=== PATIENT | male | born 1970 | race Caucasian/White ===

== ENCOUNTER 2016-07-04 11:39 | Inpatient (IN) | payer OTHER ==
[2016-07-04] MEDS ORDERED: IPRATROPIUM-ALBUTEROL 3 ML NEB INHALATION STA (12:53)
[2016-07-04] MEDS ORDERED: ALBUTEROL NEBULIZED 2.5 MG/3 ML INHALATION STA (14:00)
[2016-07-04] MEDS ORDERED: methylPREDNISolone SOD SUCCI 125 MG/2 ML VIAL IV STA (14:00)
--- NOTE | 2016-07-04 14:07 | ED ---
General Adult HPI - General Chief complaint: Shortness of Breath Stated complaint: diff breathing Time Seen by Provider: 07/04/16 12:00 Source: patient, RN notes reviewed Mode of arrival: wheelchair Limitations: no limitations - History of Present Illness Initial comments: This is a 46-year-old male presents emergency room with past medical history significant for NH congestive heart failure recently diagnosed with pneumonia in May and has had a trach placed in the past. Patient states she also has COPD and just quit smoking on Amy. Patient comes in today because he is having difficulty breathing he is wheezing he is coughing up quite a bit of sputum as well. Patient denies any chest pain or palpitations. Patient denies any fever or chills. Patient denies any lightheadedness or dizziness. Patient denies any headache patient denies numbness weakness. Patient denies abdominal pain patient denies nausea vomiting or diarrhea. Patient states he did have gastroenteritis-like symptoms a few weeks ago but those have since resolved. - Related Data Home Medications Medication Instructions Recorded Confirmed Loratadine [Claritin] 10 mg PO DAILY 10/19/13 07/04/16 Sertraline [Zoloft] 100 mg PO HS 10/19/13 07/04/16 Atorvastatin [Lipitor] 40 mg PO HS 03/25/15 07/04/16 Folic Acid 1 mg PO BID 03/25/15 07/04/16 Levothyroxine Sodium [Synthroid] 137 mcg PO QAM 03/25/15 07/04/16 Previous Rx's Medication Instructions Recorded Clopidogrel [Plavix] 75 mg PO DAILY #30 tablet 12/03/14 Metoprolol Tartrate [Lopressor] 50 mg PO BID #60 tab 12/03/14 Nitroglycerin Sl Tabs [Nitrostat] 0.4 mg SUBLINGUAL Q5M PRN #30 tab 12/03/14 Furosemide [Lasix] 40 mg PO DAILY #30 tab 06/14/16 Ipratropium-Albuterol Nebulize 3 ml INHALATION RT-QID PRN 30 Days 06/14/16 [Duoneb 0.5 mg-3 mg/3 ml Soln] Rivaroxaban [Xarelto] 20 mg PO W/SUPPER #30 tab 06/14/16 Allergies Allergy/AdvReac Type Severity Reaction Status Date / Time adhesive Allergy "PLASTIC Verified 06/11/16 08:12 TAPE PEELS SKIN,PAPER TAPE IS OK" Cephalosporins Allergy Unknown Verified 06/11/16 08:12 linezolid Allergy Unknown Verified 06/11/16 08:12 penicillin G Allergy Rash/Hives Verified 06/11/16 08:12 Review of Systems ROS Statement: Those systems with pertinent positive or pertinent negative responses have been documented in the HPI. ROS Other: All systems not noted in ROS Statement are negative. Past Medical History Past Medical History: Asthma, Chest Pain / Angina, COPD, Deep Vein Thrombosis ( DVT), Hyperlipidemia, Hypertension, Myocardial Infarction ([place]), Skin Disorder, Thyroid Disorder, Vascular Disorder Additional Past Medical History / Comment(s): Morbidly obese, COPD, bronchial asthma, coronary artery disease, multiple abdominal surgeries for a hiatal hernia that was complicated by prolonged hospitalization and prolonged ventilator dependent respiratory failure requiring a tracheostomy tube insertion , seasonal by medical ALLERGIES, diverticular disease, chronic anemia, previous history of DVT of the right lower extremity and current Doppler is showing a chronic clot in his right leg, eczema, hypothyroid, chronic anxiety/depression. Last Myocardial Infarction Date:: History of Any Multi-Drug Resistant Organisms: MRSA Date of last positivie culture/infection: 09/21/2014 MDRO Source:: abdominal incision Past Surgical History: Bowel Resection, Heart Catheterization With Stent, Hernia Repair Additional Past Surgical History / Comment(s): colonoscopy, heart stents x 3, 10 --15 heart cath with stent to circ, stomach mass removed with colostomy and colostomy reversal (removed a foot of pts colon)-2003, hernia repair with skin grafts and 2 fistula repairs (hospitalized for 1 year @[facility]2010 Past Anesthesia/Blood Transfusion Reactions: Motion Sickness Additional Past Anesthesia/Blood Transfusion Reaction / Comment(s): FATHER RECEIVED HEPATITIS FROM BLOOD TRANSFUSION Date of Last Stent Placement:: 03/28/2015 Past Psychological History: Depression Smoking Status: Former smoker Past Alcohol Use History: None Reported Additional Past Alcohol Use History / Comment(s): STARTED SMOKING 1997 Past Drug Use History: None Reported - Past Family History Mother Family Medical History: Osteoarthritis (OA), Pneumonia Additional Family Medical History / Comment(s): osteoporosis. arthroscopy surgery for knee Father Family Medical History: Liver Disease, Renal Disease Additional Family Medical History / Comment(s): triple heart bypass. liver transplant. aortic aneursym General Exam - General Exam Comments Initial Comments: GENERAL: Patient is well-developed and well-nourished. Patient is nontoxic and well- hydrated and is in moderate distress. ENT: Neck is soft and supple. No significant lymphadenopathy is noted. Oropharynx is clear. Moist mucous membranes. Neck has full range of motion without eliciting any pain. EYES: The sclera were anicteric and conjunctiva were pink and moist. Extraocular movements were intact and pupils were equal round and reactive to light. Eyelids were unremarkable. PULMONARY: Patient is wheezing diffusely CARDIOVASCULAR: Patient is tachycardic at 110 bpm ABDOMEN: Soft and nontender with normal bowel sounds. No palpable organomegaly was noted. There is no palpable pulsatile mass. SKIN: Skin is clear with no lesions or rashes and otherwise unremarkable. NEUROLOGIC: Patient is alert and oriented x3. Cranial nerves II through XII are grossly intact. Motor and sensory are also intact. Normal speech, volume and content. Symmetrical smile. MUSCULOSKELETAL: Normal extremities with adequate strength and full range of motion. LYMPHATICS: No significant lymphadenopathy is noted PSYCHIATRIC: Normal psychiatric evaluation. Normal interpersonal interactions appears functionally intact in deals appropriately with others. No signs of depression. No signs of anxiety. Limitations: no limitations Course Vital Signs 07/04/16 07/04/16 07/04/16 12:03 12:55 12:56 Temperature 98.2 F Pulse Rate 87 Respiratory 24 24 Rate Blood Pressure 126/71 O2 Sat by Pulse 95 93 L Oximetry 07/04/16 07/04/16 07/04/16 13:05 13:15 14:15 Temperature Pulse Rate 105 H 108 H 86 Respiratory Rate Blood Pressure O2 Sat by Pulse Oximetry 07/04/16 07/04/16 07/04/16 14:26 15:05 15:38 Temperature 97.5 F L Pulse Rate 88 118 H 124 H Respiratory 24 Rate Blood Pressure 153/91 O2 Sat by Pulse 97 Oximetry 07/04/16 16:31 Temperature Pulse Rate 124 H Respiratory 20 Rate Blood Pressure 131/69 O2 Sat by Pulse 97 Oximetry Medical Decision Making - Medical Decision Making EKG shows atrial fibrillation with rapid ventricular response at 109 bpm QRS is 82 QT intervals 344 QTC is 463. Patient's EKG shows no ST segment elevation or depression or T-wave abdomen is noted. Patient's chest x-ray shows no acute abnormality. Patient got a 15 mg albuterol treatment with Atrovent. Patient did not improve much at all this time. Slept with the patient on BiPAP and he does appear to be breathing easier. I gave the patient 20 of Lasix because his BNP was mildly elevated. I spoke with Dr. Rubi admitted the patient to his service I counseled the pulmonology Patient is also in atrial fibrillation which is new onset but I will not place him on heparin because he is already taken Xarelto - Lab Data Result diagrams: 07/04/16 14:20 07/04/16 14:20 Lab Results 07/04/16 07/04/16 07/04/16 Range/Units 14:20 14:20 14:20 WBC 5.0 (3.8-10.6) k/uL RBC 4.85 (4.30-5.90) m/uL Hgb 13.7 (13.0-17.5) gm/dL Hct 42.5 (39.0-53.0) % MCV 87.5 (80.0-100.0) fL MCH 28.2 (25.0-35.0) pg MCHC 32.2 (31.0-37.0) g/dL RDW 16.0 H (11.5-15.5) % Plt Count 205 (150-450) k/uL Neutrophils % 58 % Lymphocytes % 28 % Monocytes % 6 % Eosinophils % 5 % Basophils % 1 % Neutrophils # 2.9 (1.3-7.7) k/uL Lymphocytes # 1.4 (1.0-4.8) k/uL Monocytes # 0.3 (0-1.0) k/uL Eosinophils # 0.2 (0-0.7) k/uL Basophils # 0.0 (0-0.2) k/uL Hypochromasia Slight Poikilocytosis Moderate PT (9.0-12.0) sec INR (<1.1) APTT (22.0-30.0) sec Sodium 142 (137-145) mmol/L Potassium 5.0 (3.5-5.1) mmol/L Chloride 104 (98-107) mmol/L Carbon Dioxide 31 H (22-30) mmol/L Anion Gap 7 mmol/L BUN 25 H (9-20) mg/dL Creatinine 1.43 H (0.66-1.25) mg/dL Est GFR (MDRD) Af Amer >60 (>60 ml/min/1.73 sqM) Est GFR (MDRD) Non-Af 53 (>60 ml/min/1.73 sqM) Glucose 104 H (74-99) mg/dL Plasma Lactic Acid Isael (0.7-2.0) mmol/L Calcium 9.0 (8.4-10.2) mg/dL Magnesium 2.2 (1.6-2.3) mg/dL Total Bilirubin 0.8 (0.2-1.3) mg/dL AST 37 (17-59) U/L ALT 45 (21-72) U/L Alkaline Phosphatase 72 (38-126) U/L Total Creatine Kinase 59 (55-170) U/L CK-MB (CK-2) 1.6 (0.0-2.4) ng/mL CK-MB (CK-2) Rel Index 2.7 Troponin I 0.015 (0.000-0.034) ng/mL NT-Pro-B Natriuret Pep pg/mL Total Protein 6.3 (6.3-8.2) g/dL Albumin 3.4 L (3.5-5.0) g/dL 07/04/16 07/04/16 07/04/16 Range/Units 14:20 14:20 14:20 WBC (3.8-10.6) k/uL RBC (4.30-5.90) m/uL Hgb (13.0-17.5) gm/dL Hct (39.0-53.0) % MCV (80.0-100.0) fL MCH (25.0-35.0) pg MCHC (31.0-37.0) g/dL RDW (11.5-15.5) % Plt Count (150-450) k/uL Neutrophils % % Lymphocytes % % Monocytes % % Eosinophils % % Basophils % % Neutrophils # (1.3-7.7) k/uL Lymphocytes # (1.0-4.8) k/uL Monocytes # (0-1.0) k/uL Eosinophils # (0-0.7) k/uL Basophils # (0-0.2) k/uL Hypochromasia Poikilocytosis PT 11.9 (9.0-12.0) sec INR 1.2 (<1.1) APTT 29.2 (22.0-30.0) sec Sodium (137-145) mmol/L Potassium (3.5-5.1) mmol/L Chloride (98-107) mmol/L Carbon Dioxide (22-30) mmol/L Anion Gap mmol/L BUN (9-20) mg/dL Creatinine (0.66-1.25) mg/dL Est GFR (MDRD) Af Amer (>60 ml/min/1.73 sqM) Est GFR (MDRD) Non-Af (>60 ml/min/1.73 sqM) Glucose (74-99) mg/dL Plasma Lactic Acid Isael 1.1 (0.7-2.0) mmol/L Calcium (8.4-10.2) mg/dL Magnesium (1.6-2.3) mg/dL Total Bilirubin (0.2-1.3) mg/dL AST (17-59) U/L ALT (21-72) U/L Alkaline Phosphatase (38-126) U/L Total Creatine Kinase (55-170) U/L CK-MB (CK-2) (0.0-2.4) ng/mL CK-MB (CK-2) Rel Index Troponin I (0.000-0.034) ng/mL NT-Pro-B Natriuret Pep 2530 pg/mL Total Protein (6.3-8.2) g/dL Albumin (3.5-5.0) g/dL Critical Care Time Critical Care Time: Yes Total Critical Care Time: 35 Disposition Clinical Impression: Acute exacerbation of chronic obstructive airways disease, New onset atrial fibrillation Disposition: ADMITTED IP TO THIS HOSP Referrals: Aguilar Bautista DO [Primary Care Provider] - 1-2 days Time of Disposition: 17:14
[2016-07-04 14:40] LABS: Basophils % (A) 1 %; CH 28.7; CHCM 32.9; Eosinophils # (A) 0.2 k/uL (0-0.7); Eosinophils % (A) 5 %; HCT 42.5 % (39.0-53.0); HDW 4.02; HGB 13.7 gm/dL (13.0-17.5); Hypochromasia Slight; Luc # (Auto) 0.11; Luc % (Auto) 2; Lymphocytes # (A) 1.4 k/uL (1.0-4.8); Lymphocytes % (A) 28 %; MCH 28.2 pg (25.0-35.0); MCHC 32.2 g/dL (31.0-37.0); MCV 87.5 fL (80.0-100.0); Monocytes # (A) 0.3 k/uL (0-1.0); Monocytes % (A) 6 %; Neutrophils # (A) 2.9 k/uL (1.3-7.7); Neutrophils % (A) 58 %; Poikilocytosis Moderate; RBC 4.85 m/uL (4.30-5.90)
[2016-07-04 14:50] LABS: INR 1.2 (<1.1); Partial Thromboplastin Time 29.2 sec (22.0-30.0); Prothrombin Time 11.9 sec (9.0-12.0)
[2016-07-04 14:54] LABS: ALT 45 U/L (21-72); AST 37 U/L (17-59); Alkaline Phosphatase 72 U/L (38-126); Anion Gap 7 mmol/L; Blood Urea Nitrogen 25 mg/dL (9-20); Carbon Dioxide 31 mmol/L (22-30); Chloride 104 mmol/L (98-107); Glucose 104 mg/dL (74-99); Magnesium 2.2 mg/dL (1.6-2.3); Non-African American GFR(MDRD) 53 (>60 ml/min/1.73 sqM); Sodium 142 mmol/L (137-145); Total Bilirubin 0.8 mg/dL (0.2-1.3); Total Protein 6.3 g/dL (6.3-8.2)
--- NOTE | 2016-07-04 15:34 | XR ---
EXAMINATION TYPE: XR chest 2V DATE OF EXAM: 07/04/2016 3:23 PM COMPARISON: Prior chest x-ray June 10, 2016 HISTORY: History of COPD and asthma presents with difficulty in breathing. TECHNIQUE: Frontal and lateral views of the chest are obtained. FINDINGS: Exam is suboptimal secondary to patient's large body habitus. Underlying emphysematous luna ge cannot be excluded. There is suspected small left pleural effusion or pleural thickening redemonst rated felt stable. There is no suspicious new focal airspace opacity or pneumothorax seen bilaterally . The cardiac silhouette size is stable and enlarged. The osseous structures are intact. IMPRESSION: Cardiomegaly with small left pleural effusion redemonstrated. No new suspicious focal in filtrate is clearly seen.
[2016-07-04 15:43] LABS: Creatine Kinase MB 1.6 ng/mL (0.0-2.4); Troponin I 0.015 ng/mL (0.000-0.034)
[2016-07-04] MEDS ORDERED: FUROSEMIDE 10 MG/ML 2 ML VIAL IV ONE (16:05)
[2016-07-04] MEDS ORDERED: IPRATROPIUM-ALBUTEROL 3 ML NEB INHALATION PRN (17:18)
[2016-07-04] MEDS ORDERED: DILTIAZEM 125 MG in SODIUM CHLORIDE 0.9% 100 ML IV ONE (17:23)
[2016-07-04] MEDS ORDERED: HYDROmorphone 1 MG/ML 1 ML SYRINGE IM PRN (18:02)
[2016-07-04] MEDS: HYDROmorphone 1 MG/ML 1 ML SYRINGE IVP PRN ×2 (18:06→23:35)
[2016-07-04 18:57] VITALS: BMI 60.8
[2016-07-04] MEDS: methylPREDNISolone SOD SUCCI 125 MG/2 ML VIAL IV SCH ×2 (19:05→23:35)
[2016-07-04] MEDS ORDERED: INSULIN LISPRO (humaLOG) 300 UNIT/3 ML VIAL SQ SCH (21:00)
[2016-07-04 21:07] LABS: Glucose,Whole Blood 278 mg/dL (75-99)
[2016-07-04] MEDS: SERTRALINE 100 MG TAB PO SCH (22:42)
[2016-07-04] MEDS: RIVAROXABAN 10 MG TAB PO SCH (22:42)
[2016-07-04] MEDS: METOPROLOL TARTRATE 50 MG TAB PO SCH (22:42)
[2016-07-04] MEDS: ATORVASTATIN 40 MG TAB PO SCH (22:42)
[2016-07-05] MEDS: IPRATROPIUM-ALBUTEROL 3 ML NEB INHALATION SCH ×7 (00:32→23:39)
[2016-07-05] MEDS: INSULIN REGULAR 100 UNIT in SODIUM CHLORIDE 0.9% 100 ML IV SCH ×2 (00:32→14:25)
[2016-07-05 01:19] LABS: Glucose,Whole Blood 201 mg/dL (75-99)
[2016-07-05 03:17] LABS: Glucose,Whole Blood 167 mg/dL (75-99)
[2016-07-05] MEDS: HYDROmorphone 1 MG/ML 1 ML SYRINGE IVP PRN ×4 (03:39→20:39)
[2016-07-05 05:30] LABS: Glucose,Whole Blood 146 mg/dL (75-99)
[2016-07-05 06:29] LABS: Glucose,Whole Blood 140 mg/dL (75-99)
[2016-07-05] MEDS: methylPREDNISolone SOD SUCCI 125 MG/2 ML VIAL IV SCH ×4 (06:39→23:17)
[2016-07-05 08:18] LABS: Glucose,Whole Blood 190 mg/dL (75-99)
[2016-07-05] MEDS: METOPROLOL TARTRATE 50 MG TAB PO SCH ×3 (10:24→20:38)
--- NOTE | 2016-07-05 10:27 | P.CRDCN ---
History of Present Illness Consult date: 07/05/16 Requesting physician: Joshua Rubi Consult reason: congestive heart failure Chief complaint: Shortness of breath History of present illness: This is a 46-year-old gentleman who follows with Dr. Landon Wood in the office. He has a known history of coronary artery disease with prior LAD stenting, circumflex stenting, hypertension, hyperlipidemia, and obesity, DVTs, hypothyroidism, acute on chronic renal failure, diverticular disease, nicotine dependence, COPD, he presents to the hospital with symptoms of progressively worsening shortness of breath. Patient was recently in the hospital in May with exacerbation of COPD and pneumonia. He states that after he was discharged home, he was sick in bed with a stomach flu for a few days, after that he started noticing again progressive worsening in his shortness of breath. He denies any chest discomfort. Positive cough. Chest x-ray on admission revealed cardiomegaly with small pleural effusion. She'll EKG on admission showed atrial fibrillation with rapid ventricular response, patient was initiated on IV Cardizem drip. He was also given a dose of IV Lasix in the emergency room. CBC normal. Potassium 5.0, BUN 25, creatinine 1.4. Troponin 0.015, BNP level 2530. Patient diuresed approximately 1500 mL of urine through the night last night, he states he doesn't feel that he is urinating more than his usual. I pressure 104/60, heart rate in the 80s to 90s, 97% on 3 L of oxygen. Past Medical History Past Medical History: Asthma, Chest Pain / Angina, COPD, Deep Vein Thrombosis ( DVT), Hyperlipidemia, Hypertension, Myocardial Infarction ([place]), Skin Disorder, Thyroid Disorder, Vascular Disorder Additional Past Medical History / Comment(s): Morbidly obese, COPD, bronchial asthma, coronary artery disease, multiple abdominal surgeries for a hiatal hernia that was complicated by prolonged hospitalization and prolonged ventilator dependent respiratory failure requiring a tracheostomy tube insertion , seasonal by medical ALLERGIES, diverticular disease, chronic anemia, previous history of DVT of the right lower extremity and current Doppler is showing a chronic clot in his right leg, eczema, hypothyroid, chronic anxiety/depression. Last Myocardial Infarction Date:: History of Any Multi-Drug Resistant Organisms: MRSA Date of last positivie culture/infection: 09/21/2014 MDRO Source:: abdominal incision Past Surgical History: Bowel Resection, Heart Catheterization With Stent, Hernia Repair Additional Past Surgical History / Comment(s): colonoscopy, heart stents x 3, heart cath with stent to circ, stomach mass removed with colostomy and colostomy reversal (removed a foot of pts colon)-2003, hernia repair with skin grafts and 2 fistula repairs (hospitalized for 1 year @[facility]2010 Past Anesthesia/Blood Transfusion Reactions: Motion Sickness Additional Past Anesthesia/Blood Transfusion Reaction / Comment(s): FATHER RECEIVED HEPATITIS FROM BLOOD TRANSFUSION Date of Last Stent Placement:: 03/28/2015 Past Psychological History: Depression Smoking Status: Former smoker Past Alcohol Use History: None Reported Additional Past Alcohol Use History / Comment(s): STARTED SMOKING 1997 Past Drug Use History: None Reported - Past Family History Mother Family Medical History: Osteoarthritis (OA), Pneumonia Additional Family Medical History / Comment(s): osteoporosis. arthroscopy surgery for knee Father Family Medical History: Liver Disease, Renal Disease Additional Family Medical History / Comment(s): triple heart bypass. liver transplant. aortic aneursym Medications and Allergies Home Medications Medication Instructions Recorded Confirmed Type Loratadine [Claritin] 10 mg PO DAILY 10/19/13 07/04/16 History Sertraline [Zoloft] 100 mg PO HS 10/19/13 07/04/16 History Atorvastatin [Lipitor] 40 mg PO HS 03/25/15 07/04/16 History Folic Acid 1 mg PO BID 03/25/15 07/04/16 History Levothyroxine Sodium [Synthroid] 137 mcg PO QAM 03/25/15 07/04/16 History Allergies Allergy/AdvReac Type Severity Reaction Status Date / Time adhesive Allergy "PLASTIC Verified 06/11/16 08:12 TAPE PEELS SKIN,PAPER TAPE IS OK" Cephalosporins Allergy Unknown Verified 06/11/16 08:12 linezolid Allergy Unknown Verified 06/11/16 08:12 penicillin G Allergy Rash/Hives Verified 06/11/16 08:12 Physical Exam Vitals: Vital Signs Temp Pulse Pulse Resp BP BP Pulse Ox 07/05/16 08:31 96 07/05/16 08:18 96 97 07/05/16 04:00 97.3 F L 85 20 125/64 97 07/05/16 03:40 88 07/05/16 03:30 84 07/05/16 00:43 100 01/19/17 00:35 112 H 07/05/16 00:00 97.9 F 104 H 20 129/73 98 07/04/16 20:54 119 H 07/04/16 20:40 96 07/04/16 20:00 97.4 F L 127 H 20 123/66 95 07/04/16 18:47 113 H 24 07/04/16 18:46 96.6 F L 113 H 24 151/76 97 07/04/16 18:36 96.6 F L 113 H 24 151/76 97 07/04/16 17:53 98.7 F 120 H 20 143/87 98 Intake and Output 07/04/16 07/05/16 07/05/16 22:59 06:59 14:59 Intake Total 120 43.699 10 Output Total 1000 Balance 120 -956.301 10 Intake: Intake, IV Titration 43.699 10 Amount Diltiazem 125 mg In 10 Sodium Chloride 0.9% 100 ml @ 5 MG/HR 5 mls/hr IV .Q24H ONE Rx#:[id number] Insulin Regular 100 unit 43.699 In Sodium Chloride 0.9% 100 ml @ Titrate IV .Q0M [facility] Rx#:[id number] Oral 120 Output: Urine 1000 Other: Voiding Method Toilet Toilet Urinal Urinal # Voids 2 Weight 192.323 kg 192 kg PHYSICAL EXAMINATION: HEENT: Head is atraumatic, normocephalic. Pupils equal, round. Neck is supple. There is elevated jugular venous pressure. HEART EXAMINATION: Heart S1 and S2 irregular irregular systolic murmur is heard. CHEST EXAMINATION: Reveal scattered coarse rhonchi and wheezing throughout with diminished air entry to bilateral bases. ABDOMEN: Soft, obese, nontender. Bowel sounds are heard. No organomegaly noted. EXTREMITIES: 1+ peripheral pulses with 2+ evidence of peripheral edema and no calf tenderness noted. Evidence of chronic venous stasis. NEUROLOGIC patient is awake, alert and oriented -3. . Results 07/04/16 14:20 07/04/16 14:20 Current Medications Generic Name Dose Route Start Last Admin Trade Name Freq PRN Reason Stop Dose Admin Albuterol/Ipratropium 3 ml 07/04/16 20:46 Duoneb 0.5 Mg-3 Mg/3 Ml Soln INHALATION RT-Q2H PRN Shortness Of Breath Or Wheezing Albuterol/Ipratropium 3 ml 07/05/16 00:00 07/05/16 08:17 Duoneb 0.5 Mg-3 Mg/3 Ml Soln INHALATION 3 ml RT-Q4H [facility]URI Administration Atorvastatin Calcium 40 mg 07/04/16 21:00 07/04/16 22:42 Lipitor PO 40 mg HS ZURI Administration Hydromorphone HCl 1 mg 07/04/16 18:06 07/05/16 03:39 Dilaudid IVP 1 mg Q4HR PRN Administration Pain Diltiazem HCl 125 mg/ Sodium 125 mls @ 5 mls/hr 07/04/16 17:23 07/04/16 17:42 Chloride IV 07/05/16 17:22 5 mg/hr .Q24H ONE 5 mls/hr 5 MG/HR Administration Insulin Human Regular 100 unit 101 mls @ 0 mls/hr 07/04/16 23:45 07/05/16 05: 55 / Sodium Chloride IV 4 units/hr .Q0M ZURI 4.04 mls/hr Protocol Titration Titrate Methylprednisolone Sodium Succinate 60 mg 07/04/16 18:00 07/05/16 06:39 Solu-Medrol IV 60 mg Q6HR ZURI Administration Metoprolol Tartrate 50 mg 07/04/16 21:00 07/04/16 22:42 Lopressor PO 50 mg BID ZURI Administration Rivaroxaban 20 mg 07/04/16 20:45 07/04/16 22:42 Xarelto PO 20 mg W/SUPPER ZURI Administration Sertraline HCl 100 mg 07/04/16 21:00 07/04/16 22:42 Zoloft PO 100 mg HS ZURI Administration Intake and Output 07/04/16 07/05/16 07/05/16 22:59 06:59 14:59 Intake Total 120 43.699 10 Output Total 1000 Balance 120 -956.301 10 Intake: Intake, IV Titration 43.699 10 Amount Diltiazem 125 mg In 10 Sodium Chloride 0.9% 100 ml @ 5 MG/HR 5 mls/hr IV .Q24H ONE Rx#:[id number] Insulin Regular 100 unit 43.699 In Sodium Chloride 0.9% 100 ml @ Titrate IV .Q0M [facility] Rx#:[id number] Oral 120 Output: Urine 1000 Other: Voiding Method Toilet Toilet Urinal Urinal # Voids 2 Weight 192.323 kg 192 kg EKG Interpretations (text) EKG shows atrial fibrillation with a rapid ventricular response. Assessment and Plan Plan: Assessment and plan #1 diastolic congestive heart failure acute on chronic. Patient recently had an echocardiogram with Doppler study performed in May which revealed an ejection fraction of 50-55% #2 atrial fibrillation with rapid ventricular response, appears to be of new onset. He is currently on IV Cardizem drip. #3 history of DVTs, on xarelto. #4 known history of coronary artery disease with prior LAD and circumflex stenting #5 hypertension #6 hyperlipidemia #7 nicotine dependence although patient states he quit smoking a couple of weeks ago. #8 COPD #9 morbid obesity #10 hypothyroidism #11 acute on chronic renal failure #12 Chronic venous stasis Plan We will not repeat an echocardiogram with Doppler study as the patient just recently had one in May. We will resume the patient's Plavix. Check free T4 Discontinue IV Cardizem drip and increased dose of metoprolol tartrate. Further recommendations to follow. DNP note has been reviewed, I agree with a documented findings and plan of care. Patient was seen and examined.
[2016-07-05 10:48] LABS: Glucose,Whole Blood 249 mg/dL (75-99)
[2016-07-05 10:50] LABS: Hemoglobin A1C 6.5 % (4.2-6.1)
[2016-07-05 11:59] LABS: Glucose,Whole Blood 201 mg/dL (75-99)
[2016-07-05] MEDS: CLOPIDOGREL 75 MG TAB PO SCH (12:12)
--- NOTE | 2016-07-05 13:56 | P.CNPUL ---
History of Present Illness Consult date: 07/05/16 Requesting physician: Joshua Rubi Reason for consult: dyspnea, abnormal CXR/CT Chief complaint: Shortness of breath, progressive weakness. History of present illness: This is a very pleasant 46-year-old gentleman who follows with Dr. Bautista as his primary care physician. He has multiple medical problems including morbid obesity, coronary artery disease with previous stent placements to the LAD and circumflex arteries, chronic obstructive pulmonary disease with chronic and ongoing nicotine addiction, chronic bronchial asthma, multiple abdominal surgeries for hiatal hernias with complications and prolonged hospitalization requiring tracheostomy tube insertion and subsequent removal, diverticular disease, chronic anemia, previous DVT of the right lower extremity with chronic clot, hypothyroidism, anxiety/depression, previous MRSA infection of the abdominal incision, previous colectomy with colostomy and subsequent reversal. He was recently here in May 2016 for an episode of diastolic congestive heart failure as he has a preserved left ventricular systolic function with estimated ejection fraction 50-55%. He was also seen by our group for an acute exacerbation of his COPD of which she recovered. He returned to the emergency room yesterday with complaints of increasing shortness of breath and progressive weakness. His chest x-ray showed evidence of cardiomegaly with a small left pleural effusion but no acute infiltrate/pneumonia. He was found to be in atrial fibrillation with a rapid ventricular response that he was initially on a Cardizem drip. He had already been anticoagulated with Xarelto. Currently, he is seen in consultation on the selective care unit. He is awake and alert in no acute distress. He denies any worsening shortness of breath at this time, no cough or congestion. No chills or night sweats. He denies any chest pain, palpitations lightheadedness or dizziness. He does have some dyspnea on minimal exertion. He is maintaining good O2 saturations on room air, afebrile, no leukocytosis. He has remained hemodynamically stable. His rate is better controlled and the Cardizem drip has been discontinued. He is maintained on Lopressor. He is being diuresed with Lasix 40 mg every 12 hours. Review of Systems 14 point review of system was conducted. All negative other than as mentioned in HPI. Past Medical History Past Medical History: Asthma, Chest Pain / Angina, COPD, Deep Vein Thrombosis ( DVT), Hyperlipidemia, Hypertension, Myocardial Infarction (ND), Skin Disorder, Thyroid Disorder, Vascular Disorder Additional Past Medical History / Comment(s): Morbidly obese, COPD, bronchial asthma, coronary artery disease, multiple abdominal surgeries for a hiatal hernia that was complicated by prolonged hospitalization and prolonged ventilator dependent respiratory failure requiring a tracheostomy tube insertion , seasonal by medical ALLERGIES, diverticular disease, chronic anemia, previous history of DVT of the right lower extremity and current Doppler is showing a chronic clot in his right leg, eczema, hypothyroid, chronic anxiety/depression. Last Myocardial Infarction Date:: History of Any Multi-Drug Resistant Organisms: MRSA Date of last positivie culture/infection: 09/21/2014 MDRO Source:: abdominal incision Past Surgical History: Bowel Resection, Heart Catheterization With Stent, Hernia Repair Additional Past Surgical History / Comment(s): colonoscopy, heart stents x 3, heart cath with stent to circ, stomach mass removed with colostomy and colostomy reversal (removed a foot of pts colon)-2003, hernia repair with skin grafts and 2 fistula repairs [facility] Past Anesthesia/Blood Transfusion Reactions: Motion Sickness Additional Past Anesthesia/Blood Transfusion Reaction / Comment(s): FATHER RECEIVED HEPATITIS FROM BLOOD TRANSFUSION Date of Last Stent Placement:: 03/28/2015 Past Psychological History: Depression Smoking Status: Former smoker Past Alcohol Use History: None Reported Additional Past Alcohol Use History / Comment(s): STARTED SMOKING 1997 Past Drug Use History: None Reported - Past Family History Mother Family Medical History: Osteoarthritis (OA), Pneumonia Additional Family Medical History / Comment(s): osteoporosis. arthroscopy surgery for knee Father Family Medical History: Liver Disease, Renal Disease Additional Family Medical History / Comment(s): triple heart bypass. liver transplant. aortic aneursym Medications and Allergies Home Medications Medication Instructions Recorded Confirmed Type Loratadine [Claritin] 10 mg PO DAILY 10/19/13 07/04/16 History Sertraline [Zoloft] 100 mg PO HS 10/19/13 07/04/16 History Atorvastatin [Lipitor] 40 mg PO HS 03/25/15 07/04/16 History Folic Acid 1 mg PO BID 03/25/15 07/04/16 History Levothyroxine Sodium [Synthroid] 137 mcg PO QAM 03/25/15 07/04/16 History Allergies Allergy/AdvReac Type Severity Reaction Status Date / Time adhesive Allergy "PLASTIC Verified 06/11/16 08:12 TAPE PEELS SKIN,PAPER TAPE IS OK" Cephalosporins Allergy Unknown Verified 06/11/16 08:12 linezolid Allergy Unknown Verified 06/11/16 08:12 penicillin G Allergy Rash/Hives Verified 06/11/16 08:12 Physical Exam Vitals: Vital Signs Temp Pulse Pulse Resp BP BP Pulse Ox 07/05/16 12:01 96 07/05/16 12:00 96.8 F L 89 20 107/67 96 07/05/16 11:50 92 07/05/16 08:31 96 07/05/16 08:18 96 97 07/05/16 08:00 97.6 F 89 20 103/57 94 L 07/05/16 04:00 97.3 F L 85 20 125/64 97 07/05/16 03:40 88 07/05/16 03:30 84 07/05/16 00:43 100 07/05/16 00:35 112 H 07/05/16 00:00 97.9 F 104 H 20 129/73 98 07/04/16 20:54 119 H 07/04/16 20:40 96 07/04/16 20:00 97.4 F L 127 H 20 123/66 95 07/04/16 18:47 113 H 24 07/04/16 18:46 96.6 F L 113 H 24 151/76 97 07/04/16 18:36 96.6 F L 113 H 24 151/76 97 07/04/16 17:53 98.7 F 120 H 20 143/87 98 Intake and Output 07/04/16 07/05/16 07/05/16 22:59 06:59 14:59 Intake Total 120 43.699 166.831 Output Total 1000 Balance 120 -956.301 166.831 Intake: Intake, IV Titration 43.699 46.831 Amount Diltiazem 125 mg In 10 Sodium Chloride 0.9% 100 ml @ 5 MG/HR 5 mls/hr IV .Q24H ONE Rx#:[id number] Insulin Regular 100 unit 43.699 36.831 In Sodium Chloride 0.9% 100 ml @ Titrate IV .Q0M [facility] Rx#:[id number] Oral 120 120 Output: Urine 1000 Other: Voiding Method Toilet Toilet Toilet Urinal Urinal Urinal # Voids 2 Weight 192.323 kg 192 kg GENERAL EXAM: Morbidly obese. Alert, comfortable in no apparent distress. HEAD: Normocephalic. EYES: Normal reaction of pupils, equal size. NOSE: Clear with pink turbinates. THROAT: No erythema or exudates. NECK: No masses, no JVD. CHEST: No chest wall deformity. LUNGS: Equal air entry with faint crackles in the posterior bases.. CVS: S1 and S2 normal with no audible murmurs, irregular rhythm. ABDOMEN: Obese, normal bowel sounds, no guarding or rigidity. Extremities: There is trace peripheral edema, changes of chronic venous stasis. No clubbing, no cyanosis. Peripheral pulses are intact. Results - Laboratory Findings CBC and BMP: 07/04/16 14:20 07/04/16 14:20 PT/INR, D-dimer PT 11.9 sec (9.0-12.0) 07/04/16 14:20 INR 1.2 (<1.1) 07/04/16 14:20 Abnormal lab findings: Abnormal Labs 07/04/16 07/05/16 07/05/16 21:06 01:18 03:15 POC Glucose (mg/dL) 278 H 201 H 167 H 07/05/16 07/05/16 07/05/16 05:28 06:23 08:05 POC Glucose (mg/dL) 146 H 140 H 190 H 07/05/16 07/05/16 10:37 11:53 POC Glucose (mg/dL) 249 H 201 H - Diagnostic Findings Chest x-ray: image reviewed Assessment and Plan Plan: Impression: #1 Dyspnea secondary to new onset atrial fibrillation with rapid ventricular response, an acute exacerbation of diastolic congestive heart failure. There may be some component of acute exacerbation of his COPD/asthma. No significant wheezing. #2 Morbid obesity. #3 Coronary artery disease with previous coronary artery stenting to the LAD and circumflex. #4 Chronic left lower extremity DVT, anticoagulated with Xarelto. #5 Chronic venous stasis of lower extremities bilaterally. #6 Hypothyroidism. #7 Chronic renal failure. #8 Hyperlipidemia. #9 Multiple abdominal surgeries with prolonged hospitalization and ventilator dependence requiring tracheostomy tube insertion and subsequent removal. #10 Steroid-induced hyperglycemia. Plan: The patient was seen and evaluated by Dr. Adams. His chest x-ray and labs were reviewed. The patient is being treated for an exacerbation of diastolic congestive heart failure secondary to atrial fibrillation with rapid ventricular response. We'll continue with anticoagulation the form of Xarelto. We'll back off on his IV Solu-Medrol as the patient is not significantly bronchospastic or wheezing and is currently requiring a insulin drip. We'll continue with bronchodilators and change of the albuterol for Xopenex. We will increase his activity as tolerated. We'll continue to follow make further recommendations based on his clinical status. Time with Patient: Greater than 30
[2016-07-05 13:58] LABS: Glucose,Whole Blood 183 mg/dL (75-99)
[2016-07-05] MEDS ORDERED: NITROGLYCERIN SL TABS 0.4 MG TAB SUBLINGUAL PRN (15:32)
[2016-07-05] MEDS ORDERED: TEMAZEPAM 15 MG CAP PO PRN (15:35)
[2016-07-05] MEDS ORDERED: ACETAMINOPHEN TAB 500 MG TAB PO PRN (15:35)
[2016-07-05 16:03] LABS: Glucose,Whole Blood 128 mg/dL (75-99)
[2016-07-05 17:19] LABS: Glucose,Whole Blood 140 mg/dL (75-99)
[2016-07-05] MEDS: RIVAROXABAN 10 MG TAB PO SCH (17:28)
[2016-07-05 18:20] LABS: Glucose,Whole Blood 184 mg/dL (75-99)
[2016-07-05] MEDS: HYDROcodone/APAP 5-325MG 1 EACH TAB PO PRN (18:24)
--- NOTE | 2016-07-05 19:24 | HP ---
DATE OF ADMISSION: CHIEF COMPLAINT: Shortness of breath. HISTORY OF PRESENT ILLNESS: This 46-year-old gentleman with a past medical history of asthma, COPD, history of deep venous thrombosis, hypertension, hyperlipidemia, history of myocardial infarction, history of morbid obesity, history of bowel resection, history of coronary artery disease and stent, history of depression, being followed by Dr. Bautista in the outpatient setting, is complaining of shortness of breath and cough for the last several days. The patient was earlier admitted the last month with hypercapnic respiratory failure secondary to COPD acute exacerbation. Patient went home and the patient was noted to have increasing shortness of breath. The patient apparently quit smoking New Year's Amy. The patient also had wheezing and was spitting up quite a bit of phlegm also. The patient came to [facility] and the chest x-ray was done, which showed increased bronchovascular markings and the patient was admitted for further evaluation and treatment. There is no history of any fever, rigors, nausea, headache, loss of consciousness, or seizures. The patient also had on admission and was started on Cardizem this evening. PAST MEDICAL HISTORY: History of asthma, chronic obstructive pulmonary disease, history of DVTs, hypertension, hyperlipidemia, history of myocardial infarction, history of morbid obesity, history bowel resection, history of CAD and stent. Medications prior to admission include home medications: 1. Zoloft 100 mg p.o. daily. 2. Xarelto 10 mg supper. 3. Nitrostat 0.4 sublingual p.r.n. 4. Lopressor 50 mg p.o. b.i.d. 5. Claritin 10 mg daily. 6. Synthroid 137 mcg p.o. daily. 7. DuoNeb q.i.d. 8. Lasix 40 mg daily. 9. Folic acid 1 mg p.o. b.i.d. 10. Plavix 75 mg daily. 11. Lipitor 40 mg q.h.s. ALLERGIES , CEPHALOSPORINS, LINEZOLID, PENICILLIN G. FAMILY HISTORY: History of degenerative joint disease, pneumonia, osteoporosis, arthroscopy, surgery of the knee. SOCIAL HISTORY: Previous history of smoking. No history of current smoking or alcohol intake. REVIEW OF SYSTEMS: ENT: No diminished vision. CARDIOVASCULAR: As mentioned earlier. RESPIRATORY: As mentioned earlier. GI: No nausea. : No dysuria. NERVOUS SYSTEM: No numbness or weakness. ALLERGY/IMMUNOLOGY: No asthma or hayfever. MUSCULOSKELETAL: As mentioned earlier. HEMATOLOGY: No history of anemia. ENDOCRINE: No history diabetes or hypothyroidism. CONSTITUTIONAL: As mentioned earlier. DERMATOLOGY: Negative. RHEUMATOLOGY: Negative. PSYCHIATRY: As mentioned earlier. PHYSICAL EXAMINATION: Patient is alert and oriented x3. Pulse is 89, blood pressure 107/69, respirations 20, temperature 96.8, pulse ox 96% on room air. HEENT: Conjunctivae normal. Oral mucosa moist. NECK: Obese. No jugular venous distention. No carotid bruit. No lymph node enlargement. CARDIOVASCULAR: S1 and S2 irregular. RESPIRATORY: Breathing efforts increased. Bilateral scattered rhonchi and expiratory wheezing also present. ABDOMEN: Soft, nontender, obese, no mass palpable. LEGS: Bilateral leg edema present. Skin pigmentation also present. NERVOUS SYSTEM: Higher function as mentioned. Cranial nerves II through XII grossly intact. Otherwise moves all four limbs. LYMPHATIC: No lymphadenopathy in the neck, axillae or groin. SKIN: As mentioned earlier. JOINTS: No active deforming arthropathy. LABS: Accu-Cheks are 201, 183. Otherwise CBC within normal limits. Creatinine is 1.43. ASSESSMENT: 1. Shortness of breath possibly multifactor, chronic obstructive pulmonary disease acute exacerbation, with acute purulent tracheobronchitis and congestive heart failure acute exacerbation with acute on chronic diastolic dysfunction, ejection 50 to 55%. 2. Increased creatinine with possible chronic kidney disease stage III. 3. Super morbid obesity with body mass index of 60.7. 4. Asthma. 5. Chronic obstructive pulmonary disease. 6. History of deep venous thrombosis. 7. Hypertension. 8. Hyperlipidemia. 9. History of myocardial infarction. 10. History of skin disorder. 11. History of bronchial asthma. 12. History of coronary artery disease. 13. History of multiple abdominal surgeries. 14. History of hiatal hernia. 15. History of eczema. 16. History of methicillin-resistant Staphylococcus aureus with 17. Depression. 18. Remote history of nicotine dependence. 19. Morbid obesity with a BMI 60.7. RECOMMENDATIONS AND DISCUSSION: In this 46-year-old gentleman who presented with multiple complex medical issues, we will monitor the patient closely. Continue the current medications and symptomatic treatment. I recommend optimize bronchodilator treatment, continue with the diuretics. Closely follow with Cardiology and Pulmonology. Guarded prognosis because of multiple complex medical issues. Further recommendations to follow. Copy of dictation forwarded to Dr. Bautista. See orders for details. Continue the Xarelto. MTDD
[2016-07-05 19:57] LABS: Glucose,Whole Blood 199 mg/dL (75-99)
[2016-07-05] MEDS: ALPRAZolam 0.25 MG TAB PO PRN (20:38)
[2016-07-05] MEDS: SERTRALINE 100 MG TAB PO SCH (20:39)
[2016-07-05] MEDS: FOLIC ACID 1 MG TAB PO SCH (20:39)
[2016-07-05] MEDS: FUROSEMIDE 10 MG/ML 4 ML VIAL IV SCH (20:39)
[2016-07-05] MEDS: ATORVASTATIN 40 MG TAB PO SCH (20:39)
[2016-07-05 23:19] LABS: Glucose,Whole Blood 171 mg/dL (75-99)
[2016-07-06 01:39] LABS: Glucose,Whole Blood 170 mg/dL (75-99)
[2016-07-06] MEDS: IPRATROPIUM-ALBUTEROL 3 ML NEB INHALATION SCH ×5 (04:10→20:46)
[2016-07-06 04:22] LABS: Glucose,Whole Blood 160 mg/dL (75-99)
[2016-07-06] MEDS: HYDROmorphone 1 MG/ML 1 ML SYRINGE IVP PRN ×5 (05:41→23:29)
[2016-07-06] MEDS: ALPRAZolam 0.25 MG TAB PO PRN (05:47)
[2016-07-06] MEDS: IPRATROPIUM-ALBUTEROL 3 ML NEB INHALATION PRN (05:59)
[2016-07-06] MEDS: methylPREDNISolone SOD SUCCI 125 MG/2 ML VIAL IV SCH ×2 (06:16→12:09)
[2016-07-06] MEDS: PANTOPRAZOLE 40 MG TABLET PO SCH (06:22)
[2016-07-06] MEDS: LEVOTHYROXINE 137 MCG TAB PO SCH (06:22)
[2016-07-06 06:26] LABS: Glucose,Whole Blood 141 mg/dL (75-99)
[2016-07-06 06:38] LABS: Basophils % (A) 0 %; CH 28.4; CHCM 32.1; Eosinophils % (A) 0 %; HCT 43.6 % (39.0-53.0); HDW 3.78; HGB 13.7 gm/dL (13.0-17.5); Hypochromasia Moderate; Luc # (Auto) 0.04; Luc % (Auto) 1; Lymphocytes # (A) 0.6 k/uL (1.0-4.8); Lymphocytes % (A) 8 %; MCHC 31.5 g/dL (31.0-37.0); MCV 88.7 fL (80.0-100.0); Mean Platelet Volume 7.1; Monocytes # (A) 0.2 k/uL (0-1.0); Monocytes % (A) 3 %; Neutrophils # (A) 6.6 k/uL (1.3-7.7); Neutrophils % (A) 88 %; Poikilocytosis Slight; RBC 4.92 m/uL (4.30-5.90); RDW 15.8 % (11.5-15.5); WBC 7.5 k/uL (3.8-10.6); WBC (Perox) 7.84
[2016-07-06 06:53] LABS: Calcium 9.3 mg/dL (8.4-10.2); Potassium 5.1 mmol/L (3.5-5.1)
[2016-07-06] MEDS ORDERED: PHENOL MUCOUS MEM PRN (07:31)
[2016-07-06] MEDS ORDERED: EUCALYPTUS OIL MUCOUS MEM PRN (07:31)
[2016-07-06] MEDS ORDERED: MENTHOL MUCOUS MEM PRN (07:31)
[2016-07-06] MEDS: FOLIC ACID 1 MG TAB PO SCH ×2 (08:11→20:02)
[2016-07-06] MEDS: CLOPIDOGREL 75 MG TAB PO SCH (08:11)
[2016-07-06] MEDS: LORATADINE 10 MG TAB PO SCH (08:11)
[2016-07-06] MEDS: METOPROLOL TARTRATE 50 MG TAB PO SCH ×3 (08:12→20:03)
[2016-07-06] MEDS: FUROSEMIDE 10 MG/ML 4 ML VIAL IV SCH ×2 (08:12→20:03)
[2016-07-06 08:17] LABS: Glucose,Whole Blood 229 mg/dL (75-99)
[2016-07-06] MEDS: INSULIN REGULAR 100 UNIT in SODIUM CHLORIDE 0.9% 100 ML IV SCH ×2 (08:42→22:26)
[2016-07-06] MEDS ORDERED: LORazepam 2 MG/ML SYRINGE IV PRN (09:30)
[2016-07-06 10:05] LABS: Glucose,Whole Blood 231 mg/dL (75-99)
--- NOTE | 2016-07-06 11:10 | CDI ---
In responding to this query, please exercise your independent professional judgment. The [facility] Coding Staff and Clinical Documentation Specialists appreciate your assistance in clarifying documentation, maintaining compliance with coding guidelines, accurately documenting patients condition and capturing severity of illness. The fact that a question is asked does not imply that any particular answer is desired or expected. Communication forms are a method of clarifying documentation and are not made part of the Legal Health Record. Thank you in advance for your clarification. Last Revision, August 2015 William Gayle [address] [place] [address] Documentation Clarification Form Date: 07/06/2016 10:58:00 AM From: Dee Dee Hollis CCS, CCDS Admit Date: 07/04/2016 5:18:00 PM Patient Name: Maximo Cerna Visit Number: [id number] Discharge Date: Dr. Avtar Adams: Asthma is documented in the ED note as part of the patient's history. Also listed in the H&P by the attending and in the pulmonary consult as part of the patient's history. Patient history/risk factors: COPD, Hypertension, MT, DVTs, CAD & MT. Clinical Indicators: VS: RR 24 (sob), PO 95-93 ra Radiology: CXR: Cardiomegaly with small left pleural effusion. Treatment: Albuterol INH, IV Solumedrol, IV Lasix, Cardizem drip, IV Dilaudid Home Meds: Lasix, Xarelto, Albuterol Nebulizer txs Consults: Cardiology, Pulmonary In your professional opinion, can you please further specify the following, if known? With Acute Exacerbation Status asthmaticus Acute lower respiratory infection COPD (specify with or without exacerbation) Chronic obstructive bronchitis Other, please specify Unable to determine Severity Mild intermittent Mild persistent Moderate persistent Severe persistent Other, please specify ____ Unable to determine Form or Type Cough variant Childhood Exercise induced bronchospasm Extrinsic allergic Idiosyncratic Intrinsic nonallergic Late-onset Mixed Other, please specify Unable to determine Please document in your progress notes and discharge summary in order to capture severity of illness and risk of mortality. Include clinical findings that support your diagnosis. FYI: Press F11 to launch patient chart. Place X here if this finding has no clinical significance, is not applicable or if you are not able to provide any additional documentation. MTDD
--- NOTE | 2016-07-06 11:38 | CDI ---
In responding to this query, please exercise your independent professional judgment. The [facility] Coding Staff and Clinical Documentation Specialists appreciate your assistance in clarifying documentation, maintaining compliance with coding guidelines, accurately documenting patients condition and capturing severity of illness. The fact that a question is asked does not imply that any particular answer is desired or expected. Communication forms are a method of clarifying documentation and are not made part of the Legal Health Record. Thank you in advance for your clarification. Last Revision, April 2015 William Gayle [address] [place] [address] Documentation Clarification Form Date: 07/06/2016 11:14:00 AM From: Dee Dee Hollis Admit Date: 07/04/2016 5:18:00 PM Patient Name: Maximo Cerna Visit Number: [id number] Discharge Date: Dr. Frank Reece Atrial fibrillation is documented in the cardiology consult as a new onset. History/Risk Factors: COPD, CAD, Asthma, Angina, DVT, Hyperlipidemia, Hypertension, ME, Morbid Obesity Clinical Indicators: EKG/telemetry: Atrial fibrillation w/RVR, R 109. Treatment: Cardizen drip, IV Lasix, IV steroids, INH, O2. Consults: Cardiology, Pulmonology In your professional opinion, can you please clarify the type of atrial fibrillation, if known? Paroxysmal Persistent Other, please specify Unable to determine Please document in your progress notes and discharge summary in order to capture severity of illness and risk of mortality. Include clinical findings that support your diagnosis. FYI: Press F11 to launch patient chart Place X here if this finding has no clinical significance, is not applicable or if you are not able to provide any additional documentation. Thank You. DESIRE
[2016-07-06 11:59] LABS: Glucose,Whole Blood 152 mg/dL (75-99)
[2016-07-06] MEDS: HYDROcodone/APAP 5-325MG 1 EACH TAB PO PRN ×2 (12:09→21:16)
--- NOTE | 2016-07-06 13:47 | P.PN ---
Subjective Principal diagnosis: Dyspnea secondary to diastolic congestive heart failure and new onset atrial fibrillation as well as acute exacerbation of mild intermittent asthma. This is a very pleasant 46-year-old gentleman who follows with Dr. Bautista as his primary care physician. He has multiple medical problems including morbid obesity, coronary artery disease with previous stent placements to the LAD and circumflex arteries, chronic obstructive pulmonary disease with chronic and ongoing nicotine addiction, chronic bronchial asthma, multiple abdominal surgeries for hiatal hernias with complications and prolonged hospitalization requiring tracheostomy tube insertion and subsequent removal, diverticular disease, chronic anemia, previous DVT of the right lower extremity with chronic clot, hypothyroidism, anxiety/depression, previous MRSA infection of the abdominal incision, previous colectomy with colostomy and subsequent reversal. He was recently here in May 2016 for an episode of diastolic congestive heart failure as he has a preserved left ventricular systolic function with estimated ejection fraction 50-55%. He was also seen by our group for an acute exacerbation of his COPD of which she recovered. He returned to the emergency room yesterday with complaints of increasing shortness of breath and progressive weakness. His chest x-ray showed evidence of cardiomegaly with a small left pleural effusion but no acute infiltrate/pneumonia. He was found to be in atrial fibrillation with a rapid ventricular response that he was initially on a Cardizem drip. He had already been anticoagulated with Xarelto. Currently, he is seen in consultation on the selective care unit. He is awake and alert in no acute distress. He denies any worsening shortness of breath at this time, no cough or congestion. No chills or night sweats. He denies any chest pain, palpitations lightheadedness or dizziness. He does have some dyspnea on minimal exertion. He is maintaining good O2 saturations on room air, afebrile, no leukocytosis. He has remained hemodynamically stable. His rate is better controlled and the Cardizem drip has been discontinued. He is maintained on Lopressor. He is being diuresed with Lasix 40 mg every 12 hours. Patient was reevaluated today on 07/06/2016, continues to have intermittent episodes of shortness of breath were and patient uses BiPAP, and that seems to help his symptoms significantly. Again his shortness of breath is multifactorial secondary to diastolic congestive heart failure, mild intermittent bronchial asthma, morbid obesity, obstructive sleep apnea syndrome , obesity/hypoventilation syndrome. And deconditioning. Objective - Vital Signs Vital signs: Vital Signs Temp 97.8 F 07/06/16 11:54 Pulse 88 07/06/16 11:54 Resp 24 07/06/16 11:54 BP 180/66 07/06/16 11:54 Pulse Ox 98 07/06/16 08:00 Intake & Output 07/05/16 07/06/16 07/06/16 18:59 06:59 18:59 Intake Total 963.692 670.987 227.959 Output Total 600 2700 750 Balance 363.692 -2029.013 -522.041 Weight 191.6 kg Intake: Intake, IV Titration 83.692 70.987 47.959 Amount Diltiazem 125 mg In 10 Sodium Chloride 0.9% 100 ml @ 5 MG/HR 5 mls/hr IV .Q24H [facility] Rx#:[id number] Insulin Regular 100 unit 73.692 70.987 47.959 In Sodium Chloride 0.9% 100 ml @ Titrate IV .Q0M [facility] Rx#:[id number] Oral 880 600 180 Output: Urine 600 2700 750 Other: Voiding Method Toilet Toilet Toilet Urinal Urinal Urinal - Exam GENERAL EXAM: Morbidly obese. Alert, comfortable in no apparent distress. HEAD: Normocephalic. EYES: Normal reaction of pupils, equal size. NOSE: Clear with pink turbinates. THROAT: No erythema or exudates. NECK: No masses, no JVD. Evidence of an old tracheostomy scar noted in the basal portion of the neck anteriorly CHEST: No chest wall deformity. LUNGS: Equal air entry with faint crackles in the posterior bases.. Diminished breath sounds at the bases CVS: S1 and S2 normal with no audible murmurs, irregular rhythm. ABDOMEN: Obese, normal bowel sounds, no guarding or rigidity. Extremities: There is trace peripheral edema, changes of chronic venous stasis. No clubbing, no cyanosis. Peripheral pulses are intact. - Labs CBC & Chem 7: 07/06/16 06:21 07/06/16 06:18 Labs: Abnormal Lab Results - Last 24 Hours (Table) 07/05/16 07/05/16 07/05/16 Range/Units 13:56 15:59 17:10 RDW (11.5-15.5) % Lymphocytes # (1.0-4.8) k/uL BUN (9-20) mg/dL Creatinine (0.66-1.25) mg/dL Glucose (74-99) mg/dL POC Glucose (mg/dL) 183 H 128 H 140 H (75-99) mg/dL 07/05/16 07/05/16 07/05/16 Range/Units 18:18 19:53 23:18 RDW (11.5-15.5) % Lymphocytes # (1.0-4.8) k/uL BUN (9-20) mg/dL Creatinine (0.66-1.25) mg/dL Glucose (74-99) mg/dL POC Glucose (mg/dL) 184 H 199 H 171 H (75-99) mg/dL 07/06/16 07/06/16 07/06/16 Range/Units 01:27 04:21 06:18 RDW (11.5-15.5) % Lymphocytes # (1.0-4.8) k/uL BUN 38 H (9-20) mg/dL Creatinine 1.80 H (0.66-1.25) mg/dL Glucose 141 H (74-99) mg/dL POC Glucose (mg/dL) 170 H 160 H (75-99) mg/dL 07/06/16 07/06/16 07/06/16 Range/Units 06:21 06:22 08:04 RDW 15.8 H (11.5-15.5) % Lymphocytes # 0.6 L (1.0-4.8) k/uL BUN (9-20) mg/dL Creatinine (0.66-1.25) mg/dL Glucose (74-99) mg/dL POC Glucose (mg/dL) 141 H 229 H (75-99) mg/dL 07/06/16 07/06/16 Range/Units 10:02 11:58 RDW (11.5-15.5) % Lymphocytes # (1.0-4.8) k/uL BUN (9-20) mg/dL Creatinine (0.66-1.25) mg/dL Glucose (74-99) mg/dL POC Glucose (mg/dL) 231 H 152 H (75-99) mg/dL Assessment and Plan Plan: #1 Dyspnea secondary to new onset atrial fibrillation with rapid ventricular response, an acute exacerbation of diastolic congestive heart failure. There may be some component of acute exacerbation of mild bronchial asthma, intermittent. Based on his multiple medical problems, I believe his shortness of breath is mostly related to his cardiac presentation, morbid obesity, obesity hypoventilation syndrome, acute on chronic hypercapnic respiratory failure. #2 Morbid obesity. #3 Coronary artery disease with previous coronary artery stenting to the LAD and circumflex. #4 Chronic left lower extremity DVT, anticoagulated with Xarelto. #5 Chronic venous stasis of lower extremities bilaterally. #6 Hypothyroidism. #7 Chronic renal failure. #8 Hyperlipidemia. #9 Multiple abdominal surgeries with prolonged hospitalization and ventilator dependence requiring tracheostomy tube insertion and subsequent removal. #10 Steroid-induced hyperglycemia. #11 obesity/hypoventilation syndrome #12 deconditioning secondary to his morbid obesity and sedentary lifestyle #13 mild intermittent asthma contributing to his symptoms but it is not the main cause of his presentation. #14 suspect obstructive sleep apnea syndrome, however patient never had a sleep study evaluation. This should be considered on outpatient basis. Recommendation: I will recommend that we continue the same treatment plan, I will arrange for an ABG to be done and if we could document significant hypercapnia, may have to qualify the patient for home BiPAP or CPAP. Eventually the patient will need a sleep study to document obstructive sleep apnea syndrome. Considering his multiple medical problems above, prognosis is definitely poor and guarded. Time with Patient: Less than 30
[2016-07-06 14:06] LABS: Glucose,Whole Blood 227 mg/dL (75-99)
--- NOTE | 2016-07-06 14:26 | P.PN ---
Subjective Principal diagnosis: Shortness of breath This is a 46-year-old gentleman who follows with Dr. Landon Wood in the office. He has a known history of coronary artery disease with prior LAD stenting, circumflex stenting, hypertension, hyperlipidemia, and obesity, DVTs, hypothyroidism, acute on chronic renal failure, diverticular disease, nicotine dependence, COPD, he presents to the hospital with symptoms of progressively worsening shortness of breath. Patient was recently in the hospital in May with exacerbation of COPD and pneumonia. He states that after he was discharged home, he was sick in bed with a stomach flu for a few days, after that he started noticing again progressive worsening in his shortness of breath. He denies any chest discomfort. Positive cough. Chest x-ray on admission revealed cardiomegaly with small pleural effusion. Initial EKG on admission showed atrial fibrillation with rapid ventricular response. BNP level 2530. Patient was initiated on IV Lasix, continues to diurese well. Continues to be in atrial fibrillation, rate controlled on metoprolol tartrate 50 mg 1 tablet by mouth 3 times a day. Objective - Vital Signs Vital signs: Vital Signs Temp 97.8 F 07/06/16 11:54 Pulse 88 07/06/16 11:54 Resp 24 07/06/16 11:54 BP 180/66 07/06/16 11:54 Pulse Ox 98 07/06/16 08:00 Intake & Output 07/05/16 07/06/16 07/06/16 18:59 06:59 18:59 Intake Total 963.692 670.987 227.959 Output Total 600 2700 750 Balance 363.692 -2029.013 -522.041 Weight 191.6 kg Intake: Intake, IV Titration 83.692 70.987 47.959 Amount Diltiazem 125 mg In 10 Sodium Chloride 0.9% 100 ml @ 5 MG/HR 5 mls/hr IV .Q24H [facility] Rx#:[id number] Insulin Regular 100 unit 73.692 70.987 47.959 In Sodium Chloride 0.9% 100 ml @ Titrate IV .Q0M [facility] Rx#:[id number] Oral 880 600 180 Output: Urine 600 2700 750 Other: Voiding Method Toilet Toilet Toilet Urinal Urinal Urinal - Exam PHYSICAL EXAMINATION: HEENT: Head is atraumatic, normocephalic. Pupils equal, round. Neck is supple. There is elevated jugular venous pressure. HEART EXAMINATION: Heart S1 and S2 irregular irregular systolic murmur is heard. CHEST EXAMINATION: Reveal scattered coarse rhonchi and wheezing throughout with diminished air entry to bilateral bases. ABDOMEN: Soft, obese, nontender. Bowel sounds are heard. No organomegaly noted. EXTREMITIES: 1+ peripheral pulses with 2+ evidence of peripheral edema and no calf tenderness noted. Evidence of chronic venous stasis. NEUROLOGIC patient is awake, alert and oriented -3. - Labs CBC & Chem 7: 07/06/16 06:21 07/06/16 06:18 Labs: Abnormal Lab Results - Last 24 Hours (Table) 07/05/16 07/05/16 07/05/16 Range/Units 13:56 15:59 17:10 RDW (11.5-15.5) % Lymphocytes # (1.0-4.8) k/uL BUN (9-20) mg/dL Creatinine (0.66-1.25) mg/dL Glucose (74-99) mg/dL POC Glucose (mg/dL) 183 H 128 H 140 H (75-99) mg/dL 07/05/16 07/05/16 07/05/16 Range/Units 18:18 19:53 23:18 RDW (11.5-15.5) % Lymphocytes # (1.0-4.8) k/uL BUN (9-20) mg/dL Creatinine (0.66-1.25) mg/dL Glucose (74-99) mg/dL POC Glucose (mg/dL) 184 H 199 H 171 H (75-99) mg/dL 07/06/16 07/06/16 07/06/16 Range/Units 01:27 04:21 06:18 RDW (11.5-15.5) % Lymphocytes # (1.0-4.8) k/uL BUN 38 H (9-20) mg/dL Creatinine 1.80 H (0.66-1.25) mg/dL Glucose 141 H (74-99) mg/dL POC Glucose (mg/dL) 170 H 160 H (75-99) mg/dL 07/06/16 07/06/16 07/06/16 Range/Units 06:21 06:22 08:04 RDW 15.8 H (11.5-15.5) % Lymphocytes # 0.6 L (1.0-4.8) k/uL BUN (9-20) mg/dL Creatinine (0.66-1.25) mg/dL Glucose (74-99) mg/dL POC Glucose (mg/dL) 141 H 229 H (75-99) mg/dL 07/06/16 07/06/16 Range/Units 10:02 11:58 RDW (11.5-15.5) % Lymphocytes # (1.0-4.8) k/uL BUN (9-20) mg/dL Creatinine (0.66-1.25) mg/dL Glucose (74-99) mg/dL POC Glucose (mg/dL) 231 H 152 H (75-99) mg/dL Assessment and Plan Plan: Assessment and plan #1 diastolic congestive heart failure acute on chronic. Patient recently had an echocardiogram with Doppler study performed in May which revealed an ejection fraction of 50-55% #2 atrial fibrillation, chronic persistent, with rapid ventricular response. #3 history of DVTs, on xarelto. #4 known history of coronary artery disease with prior LAD and circumflex stenting #5 hypertension #6 hyperlipidemia #7 nicotine dependence although patient states he quit smoking a couple of weeks ago. #8 COPD #9 morbid obesity #10 hypothyroidism #11 acute on chronic renal failure #12 Chronic venous stasis Plan From cardiology's perspective, we will recommend to continue current dose of IV Lasix. Check lytes BUN and creatinine in the morning. DNP note has been reviewed, I agree with a documented findings and plan of care. Patient was seen and examined.
[2016-07-06] MEDS: methylPREDNISolone SOD SUCCI 40 MG/ML 1 ML VIAL IV SCH ×2 (15:52→23:29)
[2016-07-06] MEDS: RIVAROXABAN 10 MG TAB PO SCH (15:53)
[2016-07-06] MEDS ORDERED: methylPREDNISolone SOD SUCCI 125 MG/2 ML VIAL IV SCH (16:00)
[2016-07-06 16:06] LABS: Glucose,Whole Blood 165 mg/dL (75-99)
[2016-07-06 18:51] LABS: Glucose,Whole Blood 205 mg/dL (75-99)
--- NOTE | 2016-07-06 19:17 | PN ---
DATE OF SERVICE: 07/06/2016 This 46-year-old gentleman who was admitted with shortness of breath, possibly multifactorial, mostly chronic obstructive pulmonary disease, also had CHF also. The patient this morning had respiratory difficulties and patient's sats went down to low 80s and the patient had used BiPAP. Cardiology and Pulmonology is following the patient closely. PAST MEDICAL HISTORY: Reviewed. REVIEW OF SYSTEMS: CARDIOVASCULAR: As mentioned earlier. RESPIRATORY: As mentioned earlier. GI: As mentioned earlier. : No dysuria, retention. NERVOUS SYSTEM: No numbness or weakness. Current medications are reviewed. 1. Tylenol 500 q.6 p.r.n. 2. [place] 5 mg q.6. 3. DuoNeb q.i.d. and p.r.n. 5. Lipitor 40 daily. 7. Cepastat q.4. 8. Folic acid 1 mg b.i.d. 9. Lasix 40 mg b.i.d. 10. Dilaudid 1 mg q.4 p.r.n. 11. Synthroid 137 mcg p.o. daily. 12. Claritin 10 mg daily. 13. Ativan 0.5 mg q.6. 14. Solu-Medrol 40 IV q.6. 15. Lopressor 50 mg t.i.d. 16. Nitrostat. 17. Protonix 40 mg. 18. Xarelto 20 mg with supper. 19. Zoloft 100 mg q.h.s. 20. Restoril 50 mg q.h.s. PHYSICAL EXAMINATION: Patient is alert, oriented x3, pulse 88, blood pressure 180/96, respirations 18, temperature 97.8, pulse ox 90% room air. HEENT: Conjunctivae normal. Oral mucosa moist. NECK: No jugular venous distention. No carotid bruit. No lymph node enlargement. Obese. CARDIOVASCULAR: S1 and S2. No S3, no S4. RESPIRATORY: Breath sounds diminished at the bases. Bilateral scattered rhonchi, expiratory wheezing and crackles. ABDOMEN: Soft, obese, nontender. No mass palpable. LEGS: No edema, no swelling. NERVOUS SYSTEM: Higher function as mentioned. Moves all four limbs. No focal motor deficits. LYMPHATIC: No lymphadenopathy in the neck, axillae or groin. SKIN: No ulcer, rash or bleeding. LABS: CBC within normal limits. Creatinine is 1.80, glucose 165. ASSESSMENT: 1. Shortness of breath, possibly multifactorial, chronic obstructive pulmonary disease acute exacerbation with acute purulent tracheobronchitis and congestive heart failure exacerbation with acute on chronic diastolic dysfunction, ejection 50% to 55%. 2. Increased creatinine with possible chronic kidney disease, stage III. 3. Super morbid obesity with a body mass index of 60.7. 4. Asthma. 5. Persistent atrial fibrillation. 6. Atrial fibrillation with rapid ventricular rate present on admission. 7. History of chronic obstructive pulmonary disease. 8. History of deep venous thrombosis. 9. Hypertension. 10. Hyperlipidemia. 11. History of myocardial infarction. 12. Skin disorder. 13. History of bronchial asthma. 14. History of coronary artery disease. 15. History of multiple abdominal surgeries. 16. History of hiatal hernia. 17. History of eczema. 18. History of methicillin-resistant Staphylococcus aureus. 19. Depression. 20. Remote history of nicotine dependence. 21. Super morbid obesity with body mass index of 60.7. 22. FULL CODE. RECOMMENDATIONS AND DISCUSSION: I recommend to continue the current medications and symptomatic treatment. will monitor the creatinine closely. Otherwise, continue the bronchodilators and the rest of the medications. Cut down the dose of steroids and guarded prognosis. Further recommendations to follow. MTDD
[2016-07-06] MEDS: ATORVASTATIN 40 MG TAB PO SCH (20:02)
[2016-07-06] MEDS: SERTRALINE 100 MG TAB PO SCH (20:03)
[2016-07-06 20:33] LABS: Glucose,Whole Blood 148 mg/dL (75-99)
[2016-07-06 21:33] LABS: ABG Base Excess 1.8 mmol/L; ABG HCO3 27 mmol/L (21-25); ABG PCO2 51 mmHg (35-45); ABG PH 7.34 (7.35-7.45); ABG PO2 127 mmHg (83-108); ABG TCO2 29 mmol/L (19-24)
[2016-07-06 22:22] LABS: Glucose,Whole Blood 159 mg/dL (75-99)
[2016-07-07 00:38] LABS: Glucose,Whole Blood 180 mg/dL (75-99)
[2016-07-07 02:22] LABS: Glucose,Whole Blood 142 mg/dL (75-99)
[2016-07-07] MEDS: IPRATROPIUM-ALBUTEROL 3 ML NEB INHALATION SCH ×7 (03:34→19:39)
[2016-07-07 04:38] LABS: Glucose,Whole Blood 129 mg/dL (75-99)
[2016-07-07] MEDS: HYDROmorphone 1 MG/ML 1 ML SYRINGE IVP PRN ×5 (05:01→23:20)
[2016-07-07 05:40] LABS: Glucose,Whole Blood 136 mg/dL (75-99)
[2016-07-07 06:45] LABS: Basophils % (A) 0 %; CH 28.3; CHCM 31.6; Eosinophils % (A) 0 %; HCT 44.8 % (39.0-53.0); HDW 3.75; Hypochromasia Moderate; Luc # (Auto) 0.03; Luc % (Auto) 1; Lymphocytes # (A) 0.5 k/uL (1.0-4.8); Lymphocytes % (A) 7 %; MCH 28.1 pg (25.0-35.0); MCHC 31.3 g/dL (31.0-37.0); MCV 89.8 fL (80.0-100.0); Mean Platelet Volume 7.5; Monocytes # (A) 0.3 k/uL (0-1.0); Monocytes % (A) 4 %; Neutrophils # (A) 6.1 k/uL (1.3-7.7); Neutrophils % (A) 89 %; Poikilocytosis Slight; RBC 4.98 m/uL (4.30-5.90); RDW 15.7 % (11.5-15.5); WBC 6.8 k/uL (3.8-10.6); WBC (Perox) 7.15
[2016-07-07 06:56] LABS: Calcium 8.7 mg/dL (8.4-10.2)
[2016-07-07] MEDS: PANTOPRAZOLE 40 MG TABLET PO SCH (06:57)
[2016-07-07] MEDS: LEVOTHYROXINE 137 MCG TAB PO SCH (06:57)
[2016-07-07] MEDS: ALPRAZolam 0.25 MG TAB PO PRN (06:57)
[2016-07-07] MEDS: HYDROcodone/APAP 5-325MG 1 EACH TAB PO PRN (06:57)
[2016-07-07 07:46] LABS: Glucose,Whole Blood 157 mg/dL (75-99)
[2016-07-07] MEDS: METOPROLOL TARTRATE 50 MG TAB PO SCH ×3 (09:36→22:00)
[2016-07-07] MEDS: methylPREDNISolone SOD SUCCI 40 MG/ML 1 ML VIAL IV SCH ×3 (09:36→23:20)
[2016-07-07] MEDS: CLOPIDOGREL 75 MG TAB PO SCH (09:36)
[2016-07-07] MEDS: LORATADINE 10 MG TAB PO SCH (09:36)
[2016-07-07] MEDS: FUROSEMIDE 10 MG/ML 4 ML VIAL IV SCH ×2 (09:36→22:00)
[2016-07-07] MEDS: FOLIC ACID 1 MG TAB PO SCH ×2 (09:36→22:00)
[2016-07-07 09:46] LABS: Glucose,Whole Blood 215 mg/dL (75-99)
--- NOTE | 2016-07-07 11:01 | P.PN ---
Subjective Principal diagnosis: Shortness of breath This is a 46-year-old gentleman who follows with Dr. Landon Wood in the office. He has a known history of coronary artery disease with prior LAD stenting, circumflex stenting, hypertension, hyperlipidemia, and obesity, DVTs, hypothyroidism, acute on chronic renal failure, diverticular disease, nicotine dependence, COPD, he presents to the hospital with symptoms of progressively worsening shortness of breath. Patient was recently in the hospital in May with exacerbation of COPD and pneumonia. He states that after he was discharged home, he was sick in bed with a stomach flu for a few days, after that he started noticing again progressive worsening in his shortness of breath. He denies any chest discomfort. Positive cough. Chest x-ray on admission revealed cardiomegaly with small pleural effusion. Initial EKG on admission showed atrial fibrillation with rapid ventricular response. BNP level 2530. Patient was initiated on IV Lasix, continues to diurese well. Continues to be in atrial fibrillation, rate controlled on metoprolol tartrate 50 mg 1 tablet by mouth 3 times a day. Objective - Vital Signs Vital signs: Vital Signs Temp 96.8 F L 07/06/16 19:59 Pulse 100 07/07/16 08:01 Resp 18 07/07/16 04:41 BP 115/66 07/07/16 04:41 Pulse Ox 97 07/07/16 04:41 Intake & Output 07/06/16 07/07/16 07/07/16 18:59 06:59 18:59 Intake Total 840.023 55.337 12.4 Output Total 750 1100 Balance 90.023 -1044.663 12.4 Intake: Intake, IV Titration 88.023 55.337 12.4 Amount Insulin Regular 100 unit 88.023 55.337 12.4 In Sodium Chloride 0.9% 100 ml @ Titrate IV .Q0M [facility] Rx#:[id number] Oral 752 Output: Urine 750 1100 Other: Voiding Method Toilet Urinal Urinal - Exam PHYSICAL EXAMINATION: HEENT: Head is atraumatic, normocephalic. Pupils equal, round. Neck is supple. There is elevated jugular venous pressure. HEART EXAMINATION: Heart S1 and S2 irregular irregular systolic murmur is heard. CHEST EXAMINATION: Reveal scattered coarse rhonchi and wheezing throughout with diminished air entry to bilateral bases. ABDOMEN: Soft, obese, nontender. Bowel sounds are heard. No organomegaly noted. EXTREMITIES: 1+ peripheral pulses with 2+ evidence of peripheral edema and no calf tenderness noted. Evidence of chronic venous stasis. NEUROLOGIC patient is awake, alert and oriented -3. - Labs CBC & Chem 7: 07/07/16 06:29 07/07/16 06:26 Labs: Abnormal Lab Results - Last 24 Hours (Table) 07/06/16 07/06/16 07/06/16 Range/Units 11:58 14:05 15:58 RDW (11.5-15.5) % Lymphocytes # (1.0-4.8) k/uL ABG pH (7.35-7.45) ABG pCO2 (35-45) mmHg ABG pO2 (83-108) mmHg ABG HCO3 (21-25) mmol/L ABG Total CO2 (19-24) mmol/L ABG O2 Saturation (94-97) % BUN (9-20) mg/dL Creatinine (0.66-1.25) mg/dL Glucose (74-99) mg/dL POC Glucose (mg/dL) 152 H 227 H 165 H (75-99) mg/dL 07/06/16 07/06/16 07/06/16 Range/Units 18:39 20:32 21:18 RDW (11.5-15.5) % Lymphocytes # (1.0-4.8) k/uL ABG pH 7.34 L (7.35-7.45) ABG pCO2 51 H (35-45) mmHg ABG pO2 127 H (83-108) mmHg ABG HCO3 27 H (21-25) mmol/L ABG Total CO2 29 H (19-24) mmol/L ABG O2 Saturation 99.0 H (94-97) % BUN (9-20) mg/dL Creatinine (0.66-1.25) mg/dL Glucose (74-99) mg/dL POC Glucose (mg/dL) 205 H 148 H (75-99) mg/dL 07/06/16 07/07/16 07/07/16 Range/Units 22:21 00:36 02:20 RDW (11.5-15.5) % Lymphocytes # (1.0-4.8) k/uL ABG pH (7.35-7.45) ABG pCO2 (35-45) mmHg ABG pO2 (83-108) mmHg ABG HCO3 (21-25) mmol/L ABG Total CO2 (19-24) mmol/L ABG O2 Saturation (94-97) % BUN (9-20) mg/dL Creatinine (0.66-1.25) mg/dL Glucose (74-99) mg/dL POC Glucose (mg/dL) 159 H 180 H 142 H (75-99) mg/dL 07/07/16 07/07/16 07/07/16 Range/Units 04:37 05:39 06:26 RDW (11.5-15.5) % Lymphocytes # (1.0-4.8) k/uL ABG pH (7.35-7.45) ABG pCO2 (35-45) mmHg ABG pO2 (83-108) mmHg ABG HCO3 (21-25) mmol/L ABG Total CO2 (19-24) mmol/L ABG O2 Saturation (94-97) % BUN 46 H (9-20) mg/dL Creatinine 1.80 H (0.66-1.25) mg/dL Glucose 147 H (74-99) mg/dL POC Glucose (mg/dL) 129 H 136 H (75-99) mg/dL 07/07/16 07/07/16 07/07/16 Range/Units 06:29 07:34 09:30 RDW 15.7 H (11.5-15.5) % Lymphocytes # 0.5 L (1.0-4.8) k/uL ABG pH (7.35-7.45) ABG pCO2 (35-45) mmHg ABG pO2 (83-108) mmHg ABG HCO3 (21-25) mmol/L ABG Total CO2 (19-24) mmol/L ABG O2 Saturation (94-97) % BUN (9-20) mg/dL Creatinine (0.66-1.25) mg/dL Glucose (74-99) mg/dL POC Glucose (mg/dL) 157 H 215 H (75-99) mg/dL Assessment and Plan Plan: Assessment and plan #1 diastolic congestive heart failure acute on chronic. Patient recently had an echocardiogram with Doppler study performed in May which revealed an ejection fraction of 50-55% #2 atrial fibrillation, chronic persistent, with rapid ventricular response. #3 history of DVTs, on xarelto. #4 known history of coronary artery disease with prior LAD and circumflex stenting #5 hypertension #6 hyperlipidemia #7 nicotine dependence although patient states he quit smoking a couple of weeks ago. #8 COPD #9 morbid obesity #10 hypothyroidism #11 acute on chronic renal failure #12 Chronic venous stasis Plan From cardiology's perspective, we will recommend to continue current dose of IV Lasix. Check lytes BUN and creatinine in the morning. DNP note has been reviewed, I agree with a documented findings and plan of care. Patient was seen and examined.
--- NOTE | 2016-07-07 11:12 | XR ---
EXAMINATION TYPE: XR chest 2V DATE OF EXAM: 07/07/2016 11:08 AM COMPARISON: 07/04/2016 INDICATION: TECHNIQUE: Frontal and lateral views of the chest are obtained. FINDINGS: The heart size is normal. The pulmonary vasculature is normal. Posterior pleural effusions are present. IMPRESSION: 1. Posterior pleural effusions
--- NOTE | 2016-07-07 12:35 | P.PN ---
Subjective Principal diagnosis: Dyspnea secondary to diastolic congestive heart failure and new onset atrial fibrillation as well as acute exacerbation of mild intermittent asthma. This is a very pleasant 46-year-old gentleman who follows with Dr. Bautista as his primary care physician. He has multiple medical problems including morbid obesity, coronary artery disease with previous stent placements to the LAD and circumflex arteries, chronic obstructive pulmonary disease with chronic and ongoing nicotine addiction, chronic bronchial asthma, multiple abdominal surgeries for hiatal hernias with complications and prolonged hospitalization requiring tracheostomy tube insertion and subsequent removal, diverticular disease, chronic anemia, previous DVT of the right lower extremity with chronic clot, hypothyroidism, anxiety/depression, previous MRSA infection of the abdominal incision, previous colectomy with colostomy and subsequent reversal. He was recently here in May 2016 for an episode of diastolic congestive heart failure as he has a preserved left ventricular systolic function with estimated ejection fraction 50-55%. He was also seen by our group for an acute exacerbation of his COPD of which she recovered. He returned to the emergency room yesterday with complaints of increasing shortness of breath and progressive weakness. His chest x-ray showed evidence of cardiomegaly with a small left pleural effusion but no acute infiltrate/pneumonia. He was found to be in atrial fibrillation with a rapid ventricular response that he was initially on a Cardizem drip. He had already been anticoagulated with Xarelto. Currently, he is seen in consultation on the selective care unit. He is awake and alert in no acute distress. He denies any worsening shortness of breath at this time, no cough or congestion. No chills or night sweats. He denies any chest pain, palpitations lightheadedness or dizziness. He does have some dyspnea on minimal exertion. He is maintaining good O2 saturations on room air, afebrile, no leukocytosis. He has remained hemodynamically stable. His rate is better controlled and the Cardizem drip has been discontinued. He is maintained on Lopressor. He is being diuresed with Lasix 40 mg every 12 hours. Patient was reevaluated today on 07/06/2016, continues to have intermittent episodes of shortness of breath were and patient uses BiPAP, and that seems to help his symptoms significantly. Again his shortness of breath is multifactorial secondary to diastolic congestive heart failure, mild intermittent bronchial asthma, morbid obesity, obstructive sleep apnea syndrome , obesity/hypoventilation syndrome. And deconditioning. Reevaluated today on 07/07/2016, continues to have shortness of breath, and again his shortness of breath is multifactorial. On examination continues to have diminished breath sounds bilaterally some wheezing on forced expiratory maneuver. Chest x-ray was ordered for follow-up to be done today. The chest x- ray showed small left pleural effusion, not large enough to consider thoracentesis, not to mention considering the patient's body habitus, it is extremely risky to be able to perform safe thoracentesis on this patient. Objective - Vital Signs Vital signs: Vital Signs Temp 96.6 F L 07/07/16 08:00 Pulse 100 07/07/16 12:28 Resp 16 07/07/16 08:00 BP 120/62 07/07/16 08:00 Pulse Ox 96 07/07/16 08:00 Intake & Output 07/06/16 07/07/16 07/07/16 18:59 06:59 18:59 Intake Total 840.023 55.337 12.4 Output Total 750 1100 Balance 90.023 -1044.663 12.4 Intake: Intake, IV Titration 88.023 55.337 12.4 Amount Insulin Regular 100 unit 88.023 55.337 12.4 In Sodium Chloride 0.9% 100 ml @ Titrate IV .Q0M [facility] Rx#:[id number] Oral 752 Output: Urine 750 1100 Other: Voiding Method Toilet Urinal Urinal Urinal - Exam GENERAL EXAM: Morbidly obese. Alert, comfortable in no apparent distress. HEAD: Normocephalic. EYES: Normal reaction of pupils, equal size. NOSE: Clear with pink turbinates. THROAT: No erythema or exudates. NECK: No masses, no JVD. Evidence of an old tracheostomy scar noted in the basal portion of the neck anteriorly CHEST: No chest wall deformity. LUNGS: Equal air entry with faint crackles in the posterior bases.. Diminished breath sounds at the bases some wheezing on forced expiratory maneuver noted CVS: S1 and S2 normal with no audible murmurs, irregular rhythm. ABDOMEN: Obese, normal bowel sounds, no guarding or rigidity. Extremities: There is trace peripheral edema, changes of chronic venous stasis. No clubbing, no cyanosis. Peripheral pulses are intact. - Labs CBC & Chem 7: 07/07/16 06:29 07/07/16 06:26 Labs: Abnormal Lab Results - Last 24 Hours (Table) 07/06/16 07/06/16 07/06/16 Range/Units 14:05 15:58 18:39 RDW (11.5-15.5) % Lymphocytes # (1.0-4.8) k/uL ABG pH (7.35-7.45) ABG pCO2 (35-45) mmHg ABG pO2 (83-108) mmHg ABG HCO3 (21-25) mmol/L ABG Total CO2 (19-24) mmol/L ABG O2 Saturation (94-97) % BUN (9-20) mg/dL Creatinine (0.66-1.25) mg/dL Glucose (74-99) mg/dL POC Glucose (mg/dL) 227 H 165 H 205 H (75-99) mg/dL 07/06/16 07/06/16 07/06/16 Range/Units 20:32 21:18 22:21 RDW (11.5-15.5) % Lymphocytes # (1.0-4.8) k/uL ABG pH 7.34 L (7.35-7.45) ABG pCO2 51 H (35-45) mmHg ABG pO2 127 H (83-108) mmHg ABG HCO3 27 H (21-25) mmol/L ABG Total CO2 29 H (19-24) mmol/L ABG O2 Saturation 99.0 H (94-97) % BUN (9-20) mg/dL Creatinine (0.66-1.25) mg/dL Glucose (74-99) mg/dL POC Glucose (mg/dL) 148 H 159 H (75-99) mg/dL 07/07/16 07/07/16 07/07/16 Range/Units 00:36 02:20 04:37 RDW (11.5-15.5) % Lymphocytes # (1.0-4.8) k/uL ABG pH (7.35-7.45) ABG pCO2 (35-45) mmHg ABG pO2 (83-108) mmHg ABG HCO3 (21-25) mmol/L ABG Total CO2 (19-24) mmol/L ABG O2 Saturation (94-97) % BUN (9-20) mg/dL Creatinine (0.66-1.25) mg/dL Glucose (74-99) mg/dL POC Glucose (mg/dL) 180 H 142 H 129 H (75-99) mg/dL 07/07/16 07/07/16 07/07/16 Range/Units 05:39 06:26 06:29 RDW 15.7 H (11.5-15.5) % Lymphocytes # 0.5 L (1.0-4.8) k/uL ABG pH (7.35-7.45) ABG pCO2 (35-45) mmHg ABG pO2 (83-108) mmHg ABG HCO3 (21-25) mmol/L ABG Total CO2 (19-24) mmol/L ABG O2 Saturation (94-97) % BUN 46 H (9-20) mg/dL Creatinine 1.80 H (0.66-1.25) mg/dL Glucose 147 H (74-99) mg/dL POC Glucose (mg/dL) 136 H (75-99) mg/dL 07/07/16 07/07/16 Range/Units 07:34 09:30 RDW (11.5-15.5) % Lymphocytes # (1.0-4.8) k/uL ABG pH (7.35-7.45) ABG pCO2 (35-45) mmHg ABG pO2 (83-108) mmHg ABG HCO3 (21-25) mmol/L ABG Total CO2 (19-24) mmol/L ABG O2 Saturation (94-97) % BUN (9-20) mg/dL Creatinine (0.66-1.25) mg/dL Glucose (74-99) mg/dL POC Glucose (mg/dL) 157 H 215 H (75-99) mg/dL Assessment and Plan Plan: #1 Dyspnea secondary to new onset atrial fibrillation with rapid ventricular response, an acute exacerbation of diastolic congestive heart failure. There may be some component of acute exacerbation of mild bronchial asthma, intermittent. Based on his multiple medical problems, I believe his shortness of breath is mostly related to his cardiac presentation, morbid obesity, obesity hypoventilation syndrome, acute on chronic hypercapnic respiratory failure. #2 Morbid obesity. #3 Coronary artery disease with previous coronary artery stenting to the LAD and circumflex. #4 Chronic left lower extremity DVT, anticoagulated with Xarelto. #5 Chronic venous stasis of lower extremities bilaterally. #6 Hypothyroidism. #7 Chronic renal failure. #8 Hyperlipidemia. #9 Multiple abdominal surgeries with prolonged hospitalization and ventilator dependence requiring tracheostomy tube insertion and subsequent removal. #10 Steroid-induced hyperglycemia. #11 obesity/hypoventilation syndrome #12 deconditioning secondary to his morbid obesity and sedentary lifestyle #13 mild intermittent asthma contributing to his symptoms but it is not the main cause of his presentation. #14 suspect obstructive sleep apnea syndrome, however patient never had a sleep study evaluation. This should be considered on outpatient basis. Recommendation: I will recommend that we continue the same treatment plan, I will arrange for an ABG to be done and if we could document significant hypercapnia, may have to qualify the patient for home BiPAP or CPAP. However his ABG showed a pO2 of 127 pCO2 of 51 pH of 7.34. It is borderline, most likely the patient will not qualify for CPAP or BiPAP, hence may have to consider a sleep study on outpatient basis. Eventually the patient will need a sleep study to document obstructive sleep apnea syndrome. Considering his multiple medical problems above, prognosis is definitely poor and guarded. Time with Patient: Less than 30
[2016-07-07 12:44] LABS: Glucose,Whole Blood 137 mg/dL (75-99)
[2016-07-07 14:28] LABS: Glucose,Whole Blood 129 mg/dL (75-99)
[2016-07-07 16:04] LABS: Glucose,Whole Blood 139 mg/dL (75-99)
[2016-07-07] MEDS: RIVAROXABAN 10 MG TAB PO SCH (17:07)
[2016-07-07] MEDS ORDERED: INSULIN LISPRO (humaLOG) 300 UNIT/3 ML VIAL SQ SCH (17:30)
[2016-07-07 17:55] LABS: Glucose,Whole Blood 131 mg/dL (75-99)
[2016-07-07 19:18] LABS: Glucose,Whole Blood 170 mg/dL (75-99)
[2016-07-07 21:27] LABS: Glucose,Whole Blood 161 mg/dL (75-99)
[2016-07-07] MEDS: ATORVASTATIN 40 MG TAB PO SCH (22:00)
[2016-07-07] MEDS: SERTRALINE 100 MG TAB PO SCH (22:00)
--- NOTE | 2016-07-07 22:14 | PN ---
DATE OF SERVICE: 07/07/2016 This 46 -year-old gentleman admitted with shortness of breath, multifactorial, chronic obstructive pulmonary disease and congestive heart failure, is improving significantly. No chest pain. No palpitations. No fever. The most recent chest x-ray done today showed posterior pleural effusions. On exam, alert and oriented times three. Pulse is 82, blood pressure 111/61 and respiratory rate 16, temperature normal, pulse ox 96% on room air. HEENT: Conjunctivae normal. NECK: No jugular venous distention. CARDIOVASCULAR: S1, S2 muffled. RESPIRATORY: Breath sounds diminished at the bases. Bilateral scattered rhonchi and crackles. ABDOMEN: Soft, obese, nontender. Legs: Bilateral leg edema. Nervous system: No focal deficits. LABS: ABGs pCO2 51, creatinine is 1.80. ASSESSMENT: 1. Shortness of breath, possibly multifactorial, chronic obstructive pulmonary disease, acute exacerbation as well as acute purulent tracheobronchitis, as well as congestive heart failure acute exacerbation with acute on chronic diastolic dysfunction, ejection fraction 50% to 55%. 2. Increased creatinine with possible chronic kidney disease stage III. 3. Super morbid obesity. Body mass index 60.7. 4. History of asthma. 5. History of persistent atrial fibrillation. 6. Atrial fibrillation with rapid ventricular rate, present on admission. 7. History of chronic obstructive pulmonary disease. 8. History of deep venous thrombosis. 9. Hypertension. 10. Hyperlipidemia. 11. History of myocardial infarction. 12. Skin disorder. 13. History of bronchial asthma. 14. History of coronary artery disease. 15. History of multiple abdominal surgeries. 16. History of hiatal hernia. 17. History of eczema. 18. History of Methicillin-resistant Staph aureus. 19. Anxiety and depression. 20. Remote history of nicotine dependence. 21. FULL CODE. RECOMMENDATIONS AND DISCUSSION: I recommend to continue current medications, continue with the monitoring and symptomatic treatment. Otherwise, at this time, I recommend continue with current medications, continue with Xarelto, continue with IV steroids, bronchodilators, and as well as Lasix. Guarded prognosis because of multiple complex medical issues. Further recommendations to follow. MTDD
[2016-07-07 23:23] LABS: Glucose,Whole Blood 154 mg/dL (75-99)
[2016-07-08] MEDS: HYDROcodone/APAP 5-325MG 1 EACH TAB PO PRN ×3 (00:40→22:19)
[2016-07-08] MEDS: INSULIN REGULAR 100 UNIT in SODIUM CHLORIDE 0.9% 100 ML IV SCH (00:51)
[2016-07-08 01:02] LABS: Glucose,Whole Blood 154 mg/dL (75-99)
[2016-07-08] MEDS: IPRATROPIUM-ALBUTEROL 3 ML NEB INHALATION PRN (01:25)
[2016-07-08 03:19] LABS: Glucose,Whole Blood 138 mg/dL (75-99)
[2016-07-08 04:21] LABS: Glucose,Whole Blood 142 mg/dL (75-99)
[2016-07-08 06:17] LABS: Glucose,Whole Blood 140 mg/dL (75-99)
[2016-07-08] MEDS: LEVOTHYROXINE 137 MCG TAB PO SCH (06:21)
[2016-07-08] MEDS: HYDROmorphone 1 MG/ML 1 ML SYRINGE IVP PRN ×4 (06:24→20:12)
[2016-07-08 07:26] LABS: Basophils % (A) 0 %; CH 28.4; CHCM 32.3; Eosinophils % (A) 1 %; HCT 43.5 % (39.0-53.0); HDW 3.68; HGB 13.9 gm/dL (13.0-17.5); Hypochromasia Slight; Luc # (Auto) 0.03; Luc % (Auto) 1; Lymphocytes # (A) 0.6 k/uL (1.0-4.8); Lymphocytes % (A) 9 %; MCH 28.1 pg (25.0-35.0); MCHC 31.9 g/dL (31.0-37.0); MCV 88.1 fL (80.0-100.0); Mean Platelet Volume 7.1; Monocytes # (A) 0.3 k/uL (0-1.0); Monocytes % (A) 5 %; Neutrophils # (A) 5.4 k/uL (1.3-7.7); Neutrophils % (A) 85 %; Poikilocytosis Slight; RBC 4.94 m/uL (4.30-5.90); RDW 15.7 % (11.5-15.5); WBC 6.4 k/uL (3.8-10.6); WBC (Perox) 6.59
[2016-07-08] MEDS: METOPROLOL TARTRATE 50 MG TAB PO SCH ×3 (07:40→22:20)
[2016-07-08] MEDS: FUROSEMIDE 10 MG/ML 4 ML VIAL IV SCH ×2 (07:40→22:20)
[2016-07-08] MEDS: CLOPIDOGREL 75 MG TAB PO SCH (07:40)
[2016-07-08] MEDS: PANTOPRAZOLE 40 MG TABLET PO SCH (07:40)
[2016-07-08] MEDS: FOLIC ACID 1 MG TAB PO SCH ×2 (07:41→22:20)
[2016-07-08] MEDS: methylPREDNISolone SOD SUCCI 40 MG/ML 1 ML VIAL IV SCH (07:41)
[2016-07-08] MEDS: LORATADINE 10 MG TAB PO SCH (07:41)
[2016-07-08 07:52] LABS: Calcium 8.8 mg/dL (8.4-10.2)
[2016-07-08 07:52] LABS: Glucose,Whole Blood 137 mg/dL (75-99)
[2016-07-08 09:13] LABS: Glucose,Whole Blood 228 mg/dL (75-99)
[2016-07-08] MEDS: IPRATROPIUM-ALBUTEROL 3 ML NEB INHALATION SCH ×4 (09:23→19:01)
[2016-07-08 10:02] LABS: Glucose,Whole Blood 191 mg/dL (75-99)
[2016-07-08 11:21] LABS: Glucose,Whole Blood 159 mg/dL (75-99)
[2016-07-08] MEDS: INSULIN LISPRO (humaLOG) 300 UNIT/3 ML VIAL SQ SCH ×3 (12:38→22:21)
[2016-07-08 12:55] LABS: Glucose,Whole Blood 111 mg/dL (75-99)
--- NOTE | 2016-07-08 13:48 | P.PN ---
Subjective Principal diagnosis: Dyspnea secondary to diastolic congestive heart failure and new onset atrial fibrillation as well as acute exacerbation of mild intermittent asthma. This is a very pleasant 46-year-old gentleman who follows with Dr. Bautista as his primary care physician. He has multiple medical problems including morbid obesity, coronary artery disease with previous stent placements to the LAD and circumflex arteries, chronic obstructive pulmonary disease with chronic and ongoing nicotine addiction, chronic bronchial asthma, multiple abdominal surgeries for hiatal hernias with complications and prolonged hospitalization requiring tracheostomy tube insertion and subsequent removal, diverticular disease, chronic anemia, previous DVT of the right lower extremity with chronic clot, hypothyroidism, anxiety/depression, previous MRSA infection of the abdominal incision, previous colectomy with colostomy and subsequent reversal. He was recently here in May 2016 for an episode of diastolic congestive heart failure as he has a preserved left ventricular systolic function with estimated ejection fraction 50-55%. He was also seen by our group for an acute exacerbation of his COPD of which she recovered. He returned to the emergency room yesterday with complaints of increasing shortness of breath and progressive weakness. His chest x-ray showed evidence of cardiomegaly with a small left pleural effusion but no acute infiltrate/pneumonia. He was found to be in atrial fibrillation with a rapid ventricular response that he was initially on a Cardizem drip. He had already been anticoagulated with Xarelto. Currently, he is seen in consultation on the selective care unit. He is awake and alert in no acute distress. He denies any worsening shortness of breath at this time, no cough or congestion. No chills or night sweats. He denies any chest pain, palpitations lightheadedness or dizziness. He does have some dyspnea on minimal exertion. He is maintaining good O2 saturations on room air, afebrile, no leukocytosis. He has remained hemodynamically stable. His rate is better controlled and the Cardizem drip has been discontinued. He is maintained on Lopressor. He is being diuresed with Lasix 40 mg every 12 hours. Patient was reevaluated today on 07/06/2016, continues to have intermittent episodes of shortness of breath were and patient uses BiPAP, and that seems to help his symptoms significantly. Again his shortness of breath is multifactorial secondary to diastolic congestive heart failure, mild intermittent bronchial asthma, morbid obesity, obstructive sleep apnea syndrome , obesity/hypoventilation syndrome. And deconditioning. Reevaluated today on 07/07/2016, continues to have shortness of breath, and again his shortness of breath is multifactorial. On examination continues to have diminished breath sounds bilaterally some wheezing on forced expiratory maneuver. Chest x-ray was ordered for follow-up to be done today. The chest x- ray showed small left pleural effusion, not large enough to consider thoracentesis, not to mention considering the patient's body habitus, it is extremely risky to be able to perform safe thoracentesis on this patient. Reevaluated on 07/08/2016 slight improvement noted, but continues to complain of shortness of breath. Discussed with him the findings on the chest x-ray and the fact that he has a small pleural effusion, not large enough to consider thoracentesis. In the meantime the patient will remain on diuretics and bronchodilators as well as antibiotics. Objective - Vital Signs Vital signs: Vital Signs Temp 97.6 F 07/08/16 07:00 Pulse 86 07/08/16 13:14 Resp 20 07/08/16 07:00 BP 112/63 07/08/16 07:00 Pulse Ox 92 L 07/08/16 07:00 Intake & Output 07/07/16 07/08/16 07/08/16 18:59 06:59 18:59 Intake Total 55.039 598.420 17.125 Output Total 1300 600 Balance 55.039 -701.580 -582.875 Intake: Intake, IV Titration 55.039 18.420 17.125 Amount Insulin Regular 100 unit 55.039 18.420 17.125 In Sodium Chloride 0.9% 100 ml @ Titrate IV .Q0M [facility] Rx#:[id number] Oral 580 Output: Urine 1300 600 Other: Voiding Method Urinal Urinal Urinal # Voids 600 900 - Exam GENERAL EXAM: Morbidly obese. Alert, comfortable in no apparent distress. HEAD: Normocephalic. EYES: Normal reaction of pupils, equal size. NOSE: Clear with pink turbinates. THROAT: No erythema or exudates. NECK: No masses, no JVD. Evidence of an old tracheostomy scar noted in the basal portion of the neck anteriorly CHEST: No chest wall deformity. LUNGS: Equal air entry with faint crackles in the posterior bases.. Diminished breath sounds at the bases some wheezing on forced expiratory maneuver noted CVS: S1 and S2 normal with no audible murmurs, irregular rhythm. ABDOMEN: Obese, normal bowel sounds, no guarding or rigidity. Extremities: There is trace peripheral edema, changes of chronic venous stasis. No clubbing, no cyanosis. Peripheral pulses are intact. - Labs CBC & Chem 7: 07/08/16 07:04 07/08/16 07:04 Labs: Abnormal Lab Results - Last 24 Hours (Table) 07/07/16 07/07/16 07/07/16 Range/Units 14:14 16:00 17:53 RDW (11.5-15.5) % Lymphocytes # (1.0-4.8) k/uL BUN (9-20) mg/dL Creatinine (0.66-1.25) mg/dL Glucose (74-99) mg/dL POC Glucose (mg/dL) 129 H 139 H 131 H (75-99) mg/dL 07/07/16 07/07/16 07/07/16 Range/Units 18:58 21:07 23:04 RDW (11.5-15.5) % Lymphocytes # (1.0-4.8) k/uL BUN (9-20) mg/dL Creatinine (0.66-1.25) mg/dL Glucose (74-99) mg/dL POC Glucose (mg/dL) 170 H 161 H 154 H (75-99) mg/dL 07/08/16 07/08/16 07/08/16 Range/Units 00:50 02:59 04:01 RDW (11.5-15.5) % Lymphocytes # (1.0-4.8) k/uL BUN (9-20) mg/dL Creatinine (0.66-1.25) mg/dL Glucose (74-99) mg/dL POC Glucose (mg/dL) 154 H 138 H 142 H (75-99) mg/dL 07/08/16 07/08/16 07/08/16 Range/Units 06:02 07:04 07:04 RDW 15.7 H (11.5-15.5) % Lymphocytes # 0.6 L (1.0-4.8) k/uL BUN 53 H (9-20) mg/dL Creatinine 1.79 H (0.66-1.25) mg/dL Glucose 133 H (74-99) mg/dL POC Glucose (mg/dL) 140 H (75-99) mg/dL 07/08/16 07/08/16 07/08/16 Range/Units 07:33 08:56 09:59 RDW (11.5-15.5) % Lymphocytes # (1.0-4.8) k/uL BUN (9-20) mg/dL Creatinine (0.66-1.25) mg/dL Glucose (74-99) mg/dL POC Glucose (mg/dL) 137 H 228 H 191 H (75-99) mg/dL 07/08/16 07/08/16 Range/Units 11:01 12:34 RDW (11.5-15.5) % Lymphocytes # (1.0-4.8) k/uL BUN (9-20) mg/dL Creatinine (0.66-1.25) mg/dL Glucose (74-99) mg/dL POC Glucose (mg/dL) 159 H 111 H (75-99) mg/dL Assessment and Plan Plan: #1 Dyspnea secondary to new onset atrial fibrillation with rapid ventricular response, an acute exacerbation of diastolic congestive heart failure. There may be some component of acute exacerbation of mild bronchial asthma, intermittent. Based on his multiple medical problems, I believe his shortness of breath is mostly related to his cardiac presentation, morbid obesity, obesity hypoventilation syndrome, acute on chronic hypercapnic respiratory failure. #2 Morbid obesity. #3 Coronary artery disease with previous coronary artery stenting to the LAD and circumflex. #4 Chronic left lower extremity DVT, anticoagulated with Xarelto. #5 Chronic venous stasis of lower extremities bilaterally. #6 Hypothyroidism. #7 Chronic renal failure. #8 Hyperlipidemia. #9 Multiple abdominal surgeries with prolonged hospitalization and ventilator dependence requiring tracheostomy tube insertion and subsequent removal. #10 Steroid-induced hyperglycemia. #11 obesity/hypoventilation syndrome #12 deconditioning secondary to his morbid obesity and sedentary lifestyle #13 mild intermittent asthma contributing to his symptoms but it is not the main cause of his presentation. #14 suspect obstructive sleep apnea syndrome, however patient never had a sleep study evaluation. This should be considered on outpatient basis. Recommendation: Continue present treatment plan including antibiotics, bronchodilators, steroids, diuretics, and discharge planning most likely to ECF early next week. Long-term prognosis remains poor considering his multiple comorbidities. Time with Patient: Less than 30
[2016-07-08] MEDS: RIVAROXABAN 10 MG TAB PO SCH (16:12)
[2016-07-08] MEDS ORDERED: guaiFENesin-Coden 100-10MG/5ML 10 ML CUP PO PRN (16:16)
[2016-07-08 17:27] LABS: Glucose,Whole Blood 157 mg/dL (75-99)
[2016-07-08 20:36] LABS: Glucose,Whole Blood 141 mg/dL (75-99)
[2016-07-08] MEDS: ATORVASTATIN 40 MG TAB PO SCH (22:21)
[2016-07-08] MEDS: SERTRALINE 100 MG TAB PO SCH (22:22)
[2016-07-09] MEDS: HYDROmorphone 1 MG/ML 1 ML SYRINGE IVP PRN ×6 (00:51→22:13)
[2016-07-09] MEDS: LEVOTHYROXINE 137 MCG TAB PO SCH (06:20)
[2016-07-09] MEDS: IPRATROPIUM-ALBUTEROL 3 ML NEB INHALATION SCH ×4 (07:42→19:37)
[2016-07-09 08:06] LABS: Glucose,Whole Blood 121 mg/dL (75-99)
[2016-07-09] MEDS: INSULIN LISPRO (humaLOG) 300 UNIT/3 ML VIAL SQ SCH ×4 (08:15→20:55)
[2016-07-09] MEDS: FUROSEMIDE 10 MG/ML 4 ML VIAL IV SCH ×2 (08:20→20:54)
[2016-07-09] MEDS: METOPROLOL TARTRATE 50 MG TAB PO SCH ×3 (08:22→20:54)
[2016-07-09] MEDS: predniSONE 20 MG TAB PO SCH (08:22)
[2016-07-09] MEDS: FOLIC ACID 1 MG TAB PO SCH ×2 (08:23→20:54)
[2016-07-09] MEDS: LORATADINE 10 MG TAB PO SCH (08:23)
[2016-07-09] MEDS: PANTOPRAZOLE 40 MG TABLET PO SCH (08:23)
[2016-07-09] MEDS: CLOPIDOGREL 75 MG TAB PO SCH (08:23)
[2016-07-09] MEDS: HYDROcodone/APAP 5-325MG 1 EACH TAB PO PRN ×2 (08:34→17:06)
[2016-07-09 08:48] LABS: Calcium 8.7 mg/dL (8.4-10.2); Potassium 4.2 mmol/L (3.5-5.1)
[2016-07-09 08:52] LABS: Basophils % (A) 0 %; CH 28.4; CHCM 32.2; Eosinophils % (A) 1 %; HCT 46.5 % (39.0-53.0); HDW 3.64; HGB 14.8 gm/dL (13.0-17.5); Hypochromasia Slight; Luc # (Auto) 0.09; Luc % (Auto) 1; Lymphocytes # (A) 1.7 k/uL (1.0-4.8); Lymphocytes % (A) 23 %; MCH 28.1 pg (25.0-35.0); MCHC 31.7 g/dL (31.0-37.0); MCV 88.5 fL (80.0-100.0); Mean Platelet Volume 7.1; Monocytes # (A) 0.5 k/uL (0-1.0); Monocytes % (A) 7 %; Neutrophils # (A) 5.1 k/uL (1.3-7.7); Neutrophils % (A) 69 %; Poikilocytosis Slight; RBC 5.26 m/uL (4.30-5.90); RDW 15.7 % (11.5-15.5); WBC 7.4 k/uL (3.8-10.6); WBC (Perox) 7.55
--- NOTE | 2016-07-09 09:20 | PN ---
DATE OF SERVICE: 07/08/2016 This 46-year-old gentleman who was admitted with shortness of breath which is multifactorial chronic obstructive pulmonary disease and congestive heart failure acute exacerbation, improving significantly. Patient is being closely monitored at this time. No chest pain. No palpitations. No fever. On exam, alert and oriented x2. Pulse 88, blood pressure 105/55, respiratory rate 20, temperature 97.7, pulse ox 94% on room air. HEENT: Conjunctivae normal. NECK: No jugular venous distention. CARDIOVASCULAR: S1, S2 muffled. RESPIRATORY: Breath sounds diminished at the bases. A few scattered rhonchi and crackles. Respiratory wheezing. ABDOMEN: Soft, nontender. LEGS: No edema. No swelling. CENTRAL NERVOUS SYSTEM: No focal deficits. LABS: CBC within normal limits. ABG is noted otherwise. Creatinine is 1.79. ASSESSMENT: 1. Shortness of breath, possible multifactorial, chronic obstructive pulmonary disease acute exacerbation, with acute purulent tracheobronchitis as well as congestive heart failure acute exacerbation, with acute on chronic diastolic dysfunction, ejection fraction 50-55%. 2. Increased creatinine with possible chronic kidney disease, stage III. 3. Acute hypoxic respiratory failure, multifactorial. 4. Super morbid obesity with body mass index of 60.7. 5. History of asthma. 6. History of persistent atrial fibrillation. 7. Atrial fibrillation with rapid ventricular rate, present on admission. 8. History of chronic obstructive pulmonary disease. 9. History of deep venous thrombosis, 10. Hypertension. 11. Hyperlipidemia. 12. History of myocardial infarction. 13. History of skin disorder. 14. History of chronic bronchial asthma. 15. History of coronary artery disease. 16. History of multiple abdominal surgeries. 17. History of hiatal hernia. 18. History of eczema. 19. History of methicillin-resistant Staphylococcus aureus. 20. History of depression. 21. Remote history of nicotine dependence. 22. FULL CODE. RECOMMENDATIONS AND DISCUSSION: In this 46-year-old gentleman who presented with multiple complex medical issues, we will monitor the patient closely. Continue the current medications. Continue symptomatic treatment. Continue bronchodilators. Otherwise, follow closely with Dr. Adams. Taper the steroids to p.o. steroids. Further recommendations to follow.
[2016-07-09 12:53] LABS: Glucose,Whole Blood 135 mg/dL (75-99)
--- NOTE | 2016-07-09 14:02 | P.PN ---
Subjective Principal diagnosis: Dyspnea secondary to diastolic congestive heart failure and new-onset atrial fibrillation as well as an exacerbation of mild intermittent asthma. This is a very pleasant 46-year-old gentleman who follows with Dr. Bautista as his primary care physician. He has multiple medical problems including morbid obesity, coronary disease with previous stent placements to the LAD and circumflex arteries, chronic obstructive pulmonary disease with chronic and ongoing nicotine addiction, chronic bronchial asthma, multiple abdominal surgeries for hiatal hernias with complications and prolonged ventilatory dependent respiratory failure requiring tracheostomy tube insertion and subsequent removal. He was admitted here on 07/04/2016 for complaints of increasing shortness of breath. His chest x-ray revealed evidence of cardiomegaly with a small left pleural effusion but no acute infiltrate/ pneumonia. He was found to be in atrial fibrillation with a rapid ventricular response and was initially on a Cardizem drip. He is anticoagulated with Xarelto. He is seen again today 07/09/2016 on the regular medical floor. He is awake and alert in no acute distress. He denies any worsening shortness of breath, cough or congestion he is maintaining good O2 saturations in the mid 90s on 2 L/ m per nasal cannula. He remains slightly tachycardic. No chest pain, palpitations lightheadedness or dizziness. Objective - Vital Signs Vital signs: Vital Signs Temp 97.5 F L 07/09/16 07:00 Pulse 108 H 07/09/16 11:55 Resp 20 07/09/16 07:00 BP 126/78 07/09/16 07:00 Pulse Ox 94 L 07/09/16 07:43 Intake & Output 07/08/16 07/09/16 07/09/16 18:59 06:59 18:59 Intake Total 17.125 Output Total 1999 600 Balance -1982.875 -300 -600 Intake: Intake, IV Titration 17.125 Amount Insulin Regular 100 unit 17.125 In Sodium Chloride 0.9% 100 ml @ Titrate IV .Q0M [facility] Rx#:[id number] Output: Urine 1999 300 600 Other: Voiding Method Urinal Urinal Urinal # Voids 3 - Exam GENERAL EXAM: Alert, active, comfortable in no apparent distress. HEAD: Normocephalic. EYES: Normal reaction of pupils, equal size. NOSE: Clear with pink turbinates. THROAT: No erythema or exudates. NECK: No masses, no JVD. CHEST: No chest wall deformity. LUNGS: Equal air entry with no crackles, wheeze, rhonchi or dullness. CVS: S1 and S2 normal with no audible murmurs, regular rhythm. ABDOMEN: Obese, soft, normal bowel sounds, no guarding or rigidity. Extremities: There is trace peripheral edema. No clubbing, no cyanosis. Peripheral pulses are intact. - Labs CBC & Chem 7: 07/09/16 07:42 07/09/16 07:42 Labs: Abnormal Lab Results - Last 24 Hours (Table) 07/08/16 07/08/16 07/09/16 Range/Units 17:26 20:34 07:42 RDW 15.7 H (11.5-15.5) % Carbon Dioxide (22-30) mmol/L BUN (9-20) mg/dL Creatinine (0.66-1.25) mg/dL Glucose (74-99) mg/dL POC Glucose (mg/dL) 157 H 141 H (75-99) mg/dL 07/09/16 07/09/16 07/09/16 Range/Units 07:42 07:43 12:46 RDW (11.5-15.5) % Carbon Dioxide 34 H (22-30) mmol/L BUN 52 H (9-20) mg/dL Creatinine 1.88 H (0.66-1.25) mg/dL Glucose 112 H (74-99) mg/dL POC Glucose (mg/dL) 121 H 135 H (75-99) mg/dL Assessment and Plan Plan: Impression: #1 Dyspnea secondary to new onset atrial fibrillation with rapid ventricular response, an acute exacerbation of diastolic congestive heart failure. There may be some component of acute exacerbation of his COPD/asthma. No significant wheezing. #2 Morbid obesity. #3 Coronary artery disease with previous coronary artery stenting to the LAD and circumflex. #4 Chronic left lower extremity DVT, anticoagulated with Xarelto. #5 Chronic venous stasis of lower extremities bilaterally. #6 Hypothyroidism. #7 Chronic renal failure. #8 Hyperlipidemia. #9 Multiple abdominal surgeries with prolonged hospitalization and ventilator dependence requiring tracheostomy tube insertion and subsequent removal. #10 Steroid-induced hyperglycemia. Plan: The patient was seen and evaluated by Dr. Overton. We'll continue with his current medications. The patient is close to being discharged. He needs to follow-up in our office for COPD/asthma evaluation and sleep study. If not home today we'll continue to follow.
[2016-07-09] MEDS: RIVAROXABAN 10 MG TAB PO SCH (16:59)
[2016-07-09 17:48] LABS: Glucose,Whole Blood 147 mg/dL (75-99)
[2016-07-09 20:22] LABS: Glucose,Whole Blood 187 mg/dL (75-99)
[2016-07-09] MEDS: ATORVASTATIN 40 MG TAB PO SCH (20:53)
[2016-07-09] MEDS: SERTRALINE 100 MG TAB PO SCH (20:54)
[2016-07-09 22:40] VITALS: RESP 18
[2016-07-10] MEDS: HYDROcodone/APAP 5-325MG 1 EACH TAB PO PRN ×3 (00:45→15:13)
[2016-07-10] MEDS: HYDROmorphone 1 MG/ML 1 ML SYRINGE IVP PRN ×4 (02:23→13:31)
[2016-07-10] MEDS: LEVOTHYROXINE 137 MCG TAB PO SCH (06:10)
[2016-07-10 07:29] LABS: Glucose,Whole Blood 114 mg/dL (75-99)
--- NOTE | 2016-07-10 07:32 | PN ---
DATE OF SERVICE: 07/09/2016 This is a 46-year-old gentleman who was admitted with shortness of breath, COPD acute exacerbation, acute purulent tracheobronchitis and CHF is closely monitored. The patient is feeling slightly better. Dr. Overton is following and Cardiology is following the patient closely. No chest pain. No palpitation. No fever. On exam, alert and oriented x3. The pulse is 102, blood pressure is 129/74, respirations 20, temperature 98.1, pulse ox 94% on room air. HEENT: Conjunctivae normal. NECK: No jugular venous distension. CARDIOVASCULAR SYSTEM: S1, S2, muffled. RESPIRATORY: Breath sounds diminished at the bases. A few scattered rhonchi, no crackles. Abdomen is soft, nontender, obese. EXTREMITIES: Legs no edema. NERVOUS SYSTEM: No focal deficits. Labs are at this time CBC within normal limits. Creatinine is 1.88. ASSESSMENT: 1. Shortness of breath, possibly multifactorial with chronic obstructive pulmonary disease acute exacerbation as well as acute purulent tracheobronchitis as well as congestive heart failure acute exacerbation with acute on chronic diastolic dysfunction, ejection fraction 50% to 55%. 2. Increased creatinine with possible chronic kidney disease stage III. 3. Acute hypoxic respiratory failure, multifactorial. 4. Super morbid obesity with body mass index of 60.7. 5. History of asthma. 6. History of persistent atrial fibrillation with rapid ventricular rate, present on admission. 7. History of chronic obstructive pulmonary disease. 8. History of deep venous thrombosis. 9. Hypertension. 10. Hyperlipidemia. 11. History of myocardial infarction. 12. History of skin disorder. 13. History of chronic bronchial asthma. 14. History of coronary artery disease. 15. History of multiple abdominal surgeries. 16. History of hiatal hernia. 17. History of eczema. 18. History of methicillin-resistant Staphylococcus aureus. 19. History of depression. 20. Remote history nicotine dependence. 21. FULL CODE. RECOMMENDATION: Recommend to continue with the current medications. Continue with the monitoring and symptomatic treatment, taper down the steroids. Continue with bronchodilators, empiric antibiotics. Closely follow. Guarded prognosis. Further recommendations to follow.
[2016-07-10] MEDS: predniSONE 20 MG TAB PO SCH (07:39)
[2016-07-10] MEDS: LORATADINE 10 MG TAB PO SCH (07:39)
[2016-07-10] MEDS: CLOPIDOGREL 75 MG TAB PO SCH (07:39)
[2016-07-10] MEDS: METOPROLOL TARTRATE 50 MG TAB PO SCH (07:40)
[2016-07-10] MEDS: FUROSEMIDE 10 MG/ML 4 ML VIAL IV SCH (07:40)
[2016-07-10] MEDS: FOLIC ACID 1 MG TAB PO SCH (07:40)
[2016-07-10] MEDS: PANTOPRAZOLE 40 MG TABLET PO SCH (07:40)
[2016-07-10] MEDS: IPRATROPIUM-ALBUTEROL 3 ML NEB INHALATION SCH ×3 (07:47→15:40)
[2016-07-10] MEDS: INSULIN LISPRO (humaLOG) 300 UNIT/3 ML VIAL SQ SCH ×2 (07:52→12:49)
[2016-07-10 10:34] LABS: Basophils % (A) 0 %; CH 28.4; Eosinophils # (A) 0.1 k/uL (0-0.7); Eosinophils % (A) 1 %; HCT 49.5 % (39.0-53.0); HDW 3.61; HGB 15.6 gm/dL (13.0-17.5); Hypochromasia Moderate; Luc # (Auto) 0.09; Luc % (Auto) 1; Lymphocytes # (A) 1.6 k/uL (1.0-4.8); Lymphocytes % (A) 21 %; MCH 28.1 pg (25.0-35.0); MCHC 31.6 g/dL (31.0-37.0); MCV 88.8 fL (80.0-100.0); Mean Platelet Volume 6.9; Monocytes # (A) 0.4 k/uL (0-1.0); Monocytes % (A) 5 %; Neutrophils # (A) 5.6 k/uL (1.3-7.7); Neutrophils % (A) 71 %; Poikilocytosis Slight; RBC 5.57 m/uL (4.30-5.90); RDW 15.6 % (11.5-15.5); WBC 7.8 k/uL (3.8-10.6)
[2016-07-10 10:41] LABS: Calcium 8.7 mg/dL (8.4-10.2); Potassium 4.1 mmol/L (3.5-5.1)
[2016-07-10 11:13] LABS: Glucose,Whole Blood 122 mg/dL (75-99)
--- NOTE | 2016-07-10 11:50 | P.PN ---
Subjective Progress note dated 07/10/2016. The patient is again seen on the fifth floor. He is awake and alert. No distress. States he is not really feeling much better. Coughing a bit. Producing some phlegm. No fever no chills. No chest pain. Just feels chest congestion. He was admitted on July 04. Objective - Vital Signs Vital signs: Vital Signs Temp 97.6 F 07/09/16 22:39 Pulse 92 07/10/16 11:42 Resp 18 07/10/16 07:00 BP 128/84 07/10/16 07:00 Pulse Ox 100 07/10/16 07:47 Intake & Output 07/09/16 07/10/16 07/10/16 18:59 06:59 18:59 Output Total 600 1100 1800 Balance -600 -1100 -1800 Output: Urine 600 1100 1800 Other: Voiding Method Urinal Urinal Urinal # Voids 3 - Exam No acute distress, oriented 3. He was actually started dozing off when he first came into the room. HEENT examination is grossly unremarkable. Mucous membranes are moist. Neck supple. Full range of motion. Cardiovascular examination reveals regular rhythm rate. Heart sounds are distant. Lungs reveal a few scattered coarse rhonchi and wheezes. Breath sounds diminished. Abdomen is obese. Extremities reveal edema. Some chronic venous stasis changes noted. - Labs CBC & Chem 7: 07/10/16 09:40 07/10/16 09:40 Labs: Abnormal Lab Results - Last 24 Hours (Table) 07/09/16 07/09/16 07/09/16 Range/Units 12:46 17:45 20:12 RDW (11.5-15.5) % Chloride (98-107) mmol/L Carbon Dioxide (22-30) mmol/L BUN (9-20) mg/dL Creatinine (0.66-1.25) mg/dL Glucose (74-99) mg/dL POC Glucose (mg/dL) 135 H 147 H 187 H (75-99) mg/dL 07/10/16 07/10/16 07/10/16 Range/Units 07:16 09:40 09:40 RDW 15.6 H (11.5-15.5) % Chloride 96 L (98-107) mmol/L Carbon Dioxide 36 H (22-30) mmol/L BUN 50 H (9-20) mg/dL Creatinine 1.92 H (0.66-1.25) mg/dL Glucose 160 H (74-99) mg/dL POC Glucose (mg/dL) 114 H (75-99) mg/dL 07/10/16 Range/Units 11:09 RDW (11.5-15.5) % Chloride (98-107) mmol/L Carbon Dioxide (22-30) mmol/L BUN (9-20) mg/dL Creatinine (0.66-1.25) mg/dL Glucose (74-99) mg/dL POC Glucose (mg/dL) 122 H (75-99) mg/dL Assessment and Plan (1) Acute exacerbation of chronic obstructive airways disease Status: Acute (2) COPD exacerbation Status: Acute (3) Morbid obesity with BMI of 50.0-59.9, adult Status: Acute Plan: Plan dated 07/10/2016 The patient shortness of breath is multifactorial in part related to underlying new onset atrial fibrillation with RVR as well as diastolic CHF and COPD/asthma exacerbation. The patient is still showing steady improvement but still has lots of shortness of breath and chest congestion. Unfortunately, his progress is being slowed by the fact that he has a history of CAD morbid obesity chronic left lower shimmy DVT and chronic venous stasis of the lower extremities. The patient also suffers from chronic renal failure hyperlipidemia multiple abdominal surgeries and previous tracheostomy tube for chronic respiratory failure. All these issues are contributing to the patient's slow progress. We' ll continue to follow. Medications labs x-rays are reviewed. Time with Patient: Less than 30
[2016-07-10 15:55] VITALS: BP 139/75; PULSE 108; TEMP 97.4
[2016-07-10] MEDS ORDERED: SYMBICORT 160-4.5 MCG INHALER INHALATION SCH (20:00)
--- NOTE | 2016-07-11 12:54 | DS ---
DATE OF ADMISSION: 07/04/2016 DATE OF DISCHARGE: 07/10/2016 FINAL DIAGNOSES: 1. Shortness of breath, possibly multifactorial with chronic obstructive pulmonary disease acute exacerbation as well as acute purulent tracheobronchitis as well a congestive heart failure acute exacerbation with acute on chronic diastolic dysfunction ejection fraction 50% to 55%. 2. Increased creatinine with possible chronic kidney disease stage III. 3. Acute hypoxic respiratory failure, multifactorial. 4. Super morbid obesity with body mass index of 60.7. 5. History of asthma. 6. History of persistent atrial fibrillation with rapid ventricular rate, present on admission. 7. Chronic obstructive pulmonary disease. 8. History of deep venous thrombosis. 9. Hypertension. 10. Hyperlipidemia. 11. History of myocardial infarction. 12. History of skin disorder. 13. History of chronic bronchial asthma. 14. History of coronary artery disease. 15. History of multiple abdominal surgeries. 16. History of hiatal hernia. 17. History of eczema. 18. History methicillin-resistant Staphylococcus aureus 19. History of depression. 20. Remote history of nicotine dependence. 21. FULL CODE. DISCHARGE DISPOSITION: The patient will be discharged in a stable condition with guarded prognosis. Total time taken 35 minutes. HISTORY OF PRESENT ILLNESS: This 46-year-old gentleman with a past medical history of multiple medical problems as mentioned earlier admitted with shortness of breath, possible multifactorial with COPD and CHF acute exacerbation. The patient was treated with bronchodilators and diuretics. Patient improved significantly. Dr. Overton saw the patient during the hospitalization as well as cardiology care was coordinated. Chest x-ray was reviewed. Patient improved significantly. The patient also recommended to have a sleep study as an outpatient. On exam, vitals stable. CARDIOVASCULAR SYSTEM: S1, S2 muffled. RESPIRATORY: A few rhonchi. ABDOMEN: Soft, obese. NERVOUS SYSTEM: No focal deficits. DISCHARGE ADVICE: 1. Diet is cardiac. 2. Activity limited until followup. 3. Follow up with Dr. Bautista in 2 to 3 days. 4. CBC, BMP 5. Follow up with Dr. Overton and [facility] as mentioned earlier. MEDICATIONS: 1. Lipitor 40 mg q.h.s. 2. Plavix 75 mg p.o. daily. 3. Folic acid 1 mg p.o. b.i.d. 4. Lasix 40 mg daily. 5. Albuterol Atrovent updrafts q.i.d. and p.r.n. 6. Synthroid 137 mcg p.o. q.a.m. 7. Claritin 10 mg p.o. daily. 8. Lopressor 50 mg p.o. t.i.d. 9. Nitrostat 0.4 sublingually p.r.n. 10. Xarelto 20 mg with supper. 11. Zoloft 100 mg q.h.s. 12. Prednisone taper so that will be 40 mg daily for 3 days; 30 for 3 days; 20 for 3 days; 10 for 3 days and then discontinue. 13. Symbicort b.i.d. Otherwise, prognosis guarded. Further recommendations to follow. MTDD
== END 2016-07-10 16:55 | disposition home or self-care (01) | DRG 291 ==
LOC: EC 11:39 → 6SEL 17:18 → 5MS5E 07-07 16:35
PROVIDERS: ADMIT Hospitalist; ATTEND Hospitalist
DX: I13.0 Hypertensive heart and chronic kidney disease with heart failure and stage 1 through stage 4 chronic kidney disease, or unspecified chronic kidney disease (principal); I50.33 Acute on chronic diastolic (congestive) heart failure; J96.01 Acute respiratory failure with hypoxia; N17.9 Acute kidney failure, unspecified; J44.0 Chronic obstructive pulmonary disease with (acute) lower respiratory infection; J45.21 Mild intermittent asthma with (acute) exacerbation; E66.2 Morbid (severe) obesity with alveolar hypoventilation; N18.3 Chronic kidney disease, stage 3 (moderate); I48.1 Persistent atrial fibrillation; J44.1 Chronic obstructive pulmonary disease with (acute) exacerbation; Z68.44 Body mass index [BMI] 60.0-69.9, adult; I82.502 Chronic embolism and thrombosis of unspecified deep veins of left lower extremity; E03.9 Hypothyroidism, unspecified; I25.2 Old myocardial infarction; J20.9 Acute bronchitis, unspecified; E78.5 Hyperlipidemia, unspecified; K44.9 Diaphragmatic hernia without obstruction or gangrene; I87.8 Other specified disorders of veins; F41.9 Anxiety disorder, unspecified; G47.33 Obstructive sleep apnea (adult) (pediatric); F32.9 Major depressive disorder, single episode, unspecified; R73.9 Hyperglycemia, unspecified; T38.0X5A Adverse effect of glucocorticoids and synthetic analogues, initial encounter; I25.10 Atherosclerotic heart disease of native coronary artery without angina pectoris; Z95.5 Presence of coronary angioplasty implant and graft; Z87.891 Personal history of nicotine dependence; Z88.0 Allergy status to penicillin; Z88.1 Allergy status to other antibiotic agents; Z71.3 Dietary counseling and surveillance; Z86.14 Personal history of Methicillin resistant Staphylococcus aureus infection; Z79.01 Long term (current) use of anticoagulants; Z87.01 Personal history of pneumonia (recurrent); Z90.49 Acquired absence of other specified parts of digestive tract; Z79.02 Long term (current) use of antithrombotics/antiplatelets; Z79.899 Other long term (current) drug therapy
CPT/HCPCS: 36415; 36600; 71020; 80048; 80053; 82550; 82553; 82805; 83036; 83605; 83735; 83880; 84439; 84443; 84484; 85025; 85610; 85730; 87040; 93005; 94640; 94644; 94660; 94760; 96365; 96375; 99291

== ENCOUNTER → 2016-07-13 | Outpatient (CLI) | payer OTHER ==
[2016-07-13 13:36] LABS: Anisocytosis Slight; Basophils % (A) 0 %; CH 28.7; CHCM 32.9; Eosinophils # (A) 0.1 k/uL (0-0.7); Eosinophils % (A) 1 %; HCT 46.1 % (39.0-53.0); HDW 3.52; HGB 14.8 gm/dL (13.0-17.5); Hypochromasia Slight; Luc % (Auto) 1; Lymphocytes # (A) 0.7 k/uL (1.0-4.8); Lymphocytes % (A) 6 %; MCH 28.1 pg (25.0-35.0); MCHC 32.1 g/dL (31.0-37.0); MCV 87.6 fL (80.0-100.0); Mean Platelet Volume 7.4; Monocytes # (A) 0.7 k/uL (0-1.0); Monocytes % (A) 6 %; Neutrophils # (A) 9.4 k/uL (1.3-7.7); Neutrophils % (A) 86 %; Poikilocytosis Slight; RBC 5.26 m/uL (4.30-5.90); RDW 16.2 % (11.5-15.5); WBC 10.9 k/uL (3.8-10.6); WBC (Perox) 11.45
[2016-07-13 13:44] LABS: Calcium 8.7 mg/dL (8.4-10.2); Potassium 4.7 mmol/L (3.5-5.1)
== END | disposition home or self-care (01) ==
LOC: LABWHC1 12:42
PROVIDERS: ATTEND Nurse Practitioner
DX: J44.1 Chronic obstructive pulmonary disease with (acute) exacerbation (principal); N17.9 Acute kidney failure, unspecified
CPT/HCPCS: 36415; 80048; 85025

== ENCOUNTER 2016-08-01 13:34 | Inpatient (IN) | payer OTHER ==
[2016-08-01] MEDS ORDERED: IPRATROPIUM-ALBUTEROL 3 ML NEB INHALATION STA (15:13)
[2016-08-01] MEDS ORDERED: SODIUM CHLORIDE 0.9% 500 ML IV ONE (15:14)
--- NOTE | 2016-08-01 15:19 | ED ---
SOB HPI - General Source: patient Mode of arrival: wheelchair Limitations: physical limitation <Mari Garcia - Last Filed: 08/01/16 15:21> <Carlos Garcia - Last Filed: 08/01/16 17:10> - General Chief Complaint: Shortness of Breath Stated Complaint: CRISTIAN/Labored breathing Time Seen by Provider: 08/01/16 15:03 - History of Present Illness Initial Comments: Patient is a 46-year-old male presents emergency room for evaluation of shortness of breath. Patient states he has a history of RI, COPD and CHF. Patient states she was here twice last month for pneumonia. Patient states over the past few weeks he has been having increasing shortness of breath. Patient states he can't even take 2 steps without feeling like he wants to pass out. Patient states he's having midsternal chest pain that radiates to the left side every time he takes a breath. Patient denies any fevers or chills. Patient does admit having headache. Patient denies dizziness. Patient states he has history of 4 stents placed in his heart. Patient is on Xarelto. Patient denies smoking. (Mari Garcia) - Related Data Home Medications Medication Instructions Recorded Confirmed Loratadine [Claritin] 10 mg PO DAILY 10/19/13 08/01/16 Sertraline [Zoloft] 100 mg PO HS 10/19/13 08/01/16 Atorvastatin [Lipitor] 40 mg PO HS 03/25/15 08/01/16 Folic Acid 1 mg PO BID 03/25/15 08/01/16 Levothyroxine Sodium [Synthroid] 137 mcg PO QAM 03/25/15 08/01/16 Budesonide/Formoterol Fumarate 2 puff INHALATION RT-BID 08/01/16 08/01/16 [Symbicort 160-4.5 Mcg Inhaler] Metoprolol Tartrate [Lopressor] 100 mg PO BID 08/01/16 08/01/16 amLODIPine [Norvasc] 5 mg PO DAILY 08/01/16 08/01/16 Previous Rx's Medication Instructions Recorded Clopidogrel [Plavix] 75 mg PO DAILY #30 tablet 12/03/14 Nitroglycerin Sl Tabs [Nitrostat] 0.4 mg SUBLINGUAL Q5M PRN #30 tab 12/03/14 Ipratropium-Albuterol Nebulize 3 ml INHALATION RT-QID PRN 30 Days 06/14/16 [Duoneb 0.5 mg-3 mg/3 ml Soln] Rivaroxaban [Xarelto] 20 mg PO W/SUPPER #30 tab 06/14/16 Furosemide [Lasix] 40 mg PO DAILY #1 tab 07/10/16 Allergies Allergy/AdvReac Type Severity Reaction Status Date / Time adhesive Allergy "PLASTIC Verified 08/01/16 16:30 TAPE PEELS SKIN,PAPER TAPE IS OK" Cephalosporins Allergy Unknown Verified 08/01/16 16:30 linezolid Allergy Unknown Verified 08/01/16 16:30 penicillin G Allergy Rash/Hives Verified 08/01/16 16:30 Review of Systems ROS Other: All systems not noted in ROS Statement are negative. <Mari Garcia - Last Filed: 08/01/16 15:21> ROS Other: All systems not noted in ROS Statement are negative. <Carlos Garcia - Last Filed: 08/01/16 17:10> ROS Statement: Those systems with pertinent positive or pertinent negative responses have been documented in the HPI. Past Medical History Past Medical History: Asthma, Chest Pain / Angina, COPD, Deep Vein Thrombosis ( DVT), Hyperlipidemia, Hypertension, Myocardial Infarction (RI), Skin Disorder, Thyroid Disorder, Vascular Disorder Additional Past Medical History / Comment(s): Morbidly obese, COPD, bronchial asthma, coronary artery disease, multiple abdominal surgeries for a hiatal hernia that was complicated by prolonged hospitalization and prolonged ventilator dependent respiratory failure requiring a tracheostomy tube insertion , seasonal by medical ALLERGIES, diverticular disease, chronic anemia, previous history of DVT of the right lower extremity and current Doppler is showing a chronic clot in his right leg, eczema, hypothyroid, chronic anxiety/depression. Last Myocardial Infarction Date:: History of Any Multi-Drug Resistant Organisms: MRSA Date of last positivie culture/infection: 02/01/15 MDRO Source:: Abdomen Past Surgical History: Bowel Resection, Heart Catheterization With Stent, Hernia Repair Additional Past Surgical History / Comment(s): colonoscopy, heart stents x 3, -05-31 heart cath with stent to circ, stomach mass removed with colostomy and colostomy reversal (removed a foot of pts colon)-2003, hernia repair with skin grafts and 2 fistula repairs (hospitalized for 1 year @[facility]2010 Past Anesthesia/Blood Transfusion Reactions: Motion Sickness Additional Past Anesthesia/Blood Transfusion Reaction / Comment(s): FATHER RECEIVED HEPATITIS FROM BLOOD TRANSFUSION Date of Last Stent Placement:: 03/28/2015 Past Psychological History: Depression Smoking Status: Former smoker Past Alcohol Use History: None Reported Additional Past Alcohol Use History / Comment(s): STARTED SMOKING 1997 Past Drug Use History: None Reported - Past Family History Mother Family Medical History: Osteoarthritis (OA), Pneumonia Additional Family Medical History / Comment(s): osteoporosis. arthroscopy surgery for knee Father Family Medical History: Liver Disease, Renal Disease Additional Family Medical History / Comment(s): triple heart bypass. liver transplant. aortic aneursym <Mari Garcia - Last Filed: 08/01/16 15:21> General Exam Limitations: physical limitation General appearance: alert Head exam: Present: atraumatic, normocephalic, normal inspection ENT exam: Present: normal exam Neck exam: Present: normal inspection Respiratory exam: Present: wheezes, decreased breath sounds Cardiovascular Exam: Present: normal rhythm, tachycardia, normal heart sounds Extremities exam: Present: normal inspection Back exam: Present: normal inspection Neurological exam: Present: alert, oriented X3, CN II-XII intact, normal gait Psychiatric exam: Present: normal affect, normal mood Skin exam: Present: warm, dry, intact, normal color. Absent: rash <Mari Garcia - Last Filed: 08/01/16 15:21> <Carlos Garcia - Last Filed: 08/01/16 17:10> - General Exam Comments Initial Comments: Sitting in exam room, short of breath (Mari Garcia) Patient did have a previous tracheostomy which has left the trachea smaller in diameter causing an audible sound when he does breathe. Patient states his short of breath with just short excursions at this time. No pain. Patient does have history of morbid obesity weighing in excess of 420 pounds. (Carlos Garcia) Medical Decision Making <Mari Garcia - Last Filed: 08/01/16 15:21> - Lab Data Result diagrams: 08/01/16 15:25 08/01/16 15:25 <Carlos Garcia - Last Filed: 08/01/16 17:10> - Medical Decision Making Medical decision making. Examine the patient does have wheezing bilaterally even after his updraft. The patient is morbidly obese in excess of 420 pounds. Complaint of exertional dyspnea. Patient's BMP is elevated at 4990. Weight 6.1 hemoglobin 11.8 hematocrit of 36.3. INR 1.3. D-dimer 0.7. Total bilirubin mildly elevated at 2.2 with a troponin less than 0.012. BUN 18 creatinine 1.5 and the GFR 51. Creatinine slightly elevated over the last time he was here. Glucose 129. The patient is on Xarelto cause of newly diagnosed A. fib approximately one month ago. Chest x-ray is done which shows evidence of cardiomegaly and possible pulmonary edema, congestive heart failure per radiologist's interpretation, Dr. Vora Case discussed with Michelle assistant golf coach nurse practitioner taking call [facility]i. [facility] - Lab Data Lab Results 08/01/16 08/01/16 08/01/16 Range/Units 15:25 15:25 15:25 WBC 6.1 (3.8-10.6) k/uL RBC 4.31 (4.30-5.90) m/uL Hgb 11.8 L D (13.0-17.5) gm/dL Hct 36.3 L (39.0-53.0) % MCV 84.2 (80.0-100.0) fL MCH 27.4 (25.0-35.0) pg MCHC 32.5 (31.0-37.0) g/dL RDW 17.3 H (11.5-15.5) % Plt Count 225 (150-450) k/uL Neutrophils % 77 % Lymphocytes % 11 % Monocytes % 6 % Eosinophils % 3 % Basophils % 0 % Neutrophils # 4.7 (1.3-7.7) k/uL Lymphocytes # 0.7 L (1.0-4.8) k/uL Monocytes # 0.4 (0-1.0) k/uL Eosinophils # 0.2 (0-0.7) k/uL Basophils # 0.0 (0-0.2) k/uL Hypochromasia Slight Poikilocytosis Moderate Anisocytosis Slight PT (9.0-12.0) sec INR (<1.1) APTT (22.0-30.0) sec D-Dimer (<0.60) mg/L FEU Sodium 141 (137-145) mmol/L Potassium 4.2 (3.5-5.1) mmol/L Chloride 105 (98-107) mmol/L Carbon Dioxide 27 (22-30) mmol/L Anion Gap 9 mmol/L BUN 18 (9-20) mg/dL Creatinine 1.50 H (0.66-1.25) mg/dL Est GFR (MDRD) Af Amer >60 (>60 ml/min/1.73 sqM) Est GFR (MDRD) Non-Af 51 (>60 ml/min/1.73 sqM) Glucose 129 H (74-99) mg/dL Plasma Lactic Acid Isael (0.7-2.0) mmol/L Calcium 8.6 (8.4-10.2) mg/dL Magnesium 2.3 (1.6-2.3) mg/dL Total Bilirubin 2.2 H (0.2-1.3) mg/dL AST 18 (17-59) U/L ALT 33 (21-72) U/L Alkaline Phosphatase 62 (38-126) U/L Total Creatine Kinase 50 L (55-170) U/L CK-MB (CK-2) 0.9 (0.0-2.4) ng/mL CK-MB (CK-2) Rel Index 1.8 Troponin I <0.012 (0.000-0.034) ng/mL NT-Pro-B Natriuret Pep pg/mL Total Protein 6.7 (6.3-8.2) g/dL Albumin 3.4 L (3.5-5.0) g/dL 08/01/16 08/01/16 08/01/16 Range/Units 15:25 15:25 15:25 WBC (3.8-10.6) k/uL RBC (4.30-5.90) m/uL Hgb (13.0-17.5) gm/dL Hct (39.0-53.0) % MCV (80.0-100.0) fL MCH (25.0-35.0) pg MCHC (31.0-37.0) g/dL RDW (11.5-15.5) % Plt Count (150-450) k/uL Neutrophils % % Lymphocytes % % Monocytes % % Eosinophils % % Basophils % % Neutrophils # (1.3-7.7) k/uL Lymphocytes # (1.0-4.8) k/uL Monocytes # (0-1.0) k/uL Eosinophils # (0-0.7) k/uL Basophils # (0-0.2) k/uL Hypochromasia Poikilocytosis Anisocytosis PT 13.0 H (9.0-12.0) sec INR 1.3 (<1.1) APTT 30.0 (22.0-30.0) sec D-Dimer 0.70 H (<0.60) mg/L FEU Sodium (137-145) mmol/L Potassium (3.5-5.1) mmol/L Chloride (98-107) mmol/L Carbon Dioxide (22-30) mmol/L Anion Gap mmol/L BUN (9-20) mg/dL Creatinine (0.66-1.25) mg/dL Est GFR (MDRD) Af Amer (>60 ml/min/1.73 sqM) Est GFR (MDRD) Non-Af (>60 ml/min/1.73 sqM) Glucose (74-99) mg/dL Plasma Lactic Acid Isael 1.3 (0.7-2.0) mmol/L Calcium (8.4-10.2) mg/dL Magnesium (1.6-2.3) mg/dL Total Bilirubin (0.2-1.3) mg/dL AST (17-59) U/L ALT (21-72) U/L Alkaline Phosphatase (38-126) U/L Total Creatine Kinase (55-170) U/L CK-MB (CK-2) (0.0-2.4) ng/mL CK-MB (CK-2) Rel Index Troponin I (0.000-0.034) ng/mL NT-Pro-B Natriuret Pep 4990 pg/mL Total Protein (6.3-8.2) g/dL Albumin (3.5-5.0) g/dL Disposition <Mari Garcia - Last Filed: 08/01/16 15:21> <Carlos Garcia - Last Filed: 08/01/16 17:10> Clinical Impression: Congestive heart failure Disposition: ADMITTED IP TO THIS HOSP Condition: Serious
[2016-08-01 15:37] LABS: Anisocytosis Slight; Basophils % (A) 0 %; CH 28.5; CHCM 34.1; Eosinophils # (A) 0.2 k/uL (0-0.7); Eosinophils % (A) 3 %; HCT 36.3 % (39.0-53.0); HDW 4.23; Hypochromasia Slight; Luc # (Auto) 0.14; Luc % (Auto) 2; Lymphocytes # (A) 0.7 k/uL (1.0-4.8); Lymphocytes % (A) 11 %; MCH 27.4 pg (25.0-35.0); MCHC 32.5 g/dL (31.0-37.0); MCV 84.2 fL (80.0-100.0); Mean Platelet Volume 8.7; Monocytes # (A) 0.4 k/uL (0-1.0); Monocytes % (A) 6 %; Neutrophils # (A) 4.7 k/uL (1.3-7.7); Neutrophils % (A) 77 %; Poikilocytosis Moderate; RBC 4.31 m/uL (4.30-5.90); RDW 17.3 % (11.5-15.5); WBC 6.1 k/uL (3.8-10.6); WBC (Perox) 6.05
[2016-08-01 15:44] LABS: HGB 11.8 gm/dL (13.0-17.5)
[2016-08-01 15:50] LABS: ALT 33 U/L (21-72); AST 18 U/L (17-59); Alkaline Phosphatase 62 U/L (38-126); Anion Gap 9 mmol/L; Blood Urea Nitrogen 18 mg/dL (9-20); Calcium 8.6 mg/dL (8.4-10.2); Carbon Dioxide 27 mmol/L (22-30); Chloride 105 mmol/L (98-107); Glucose 129 mg/dL (74-99); Magnesium 2.3 mg/dL (1.6-2.3); Non-African American GFR(MDRD) 51 (>60 ml/min/1.73 sqM); Potassium 4.2 mmol/L (3.5-5.1); Sodium 141 mmol/L (137-145); Total Bilirubin 2.2 mg/dL (0.2-1.3); Total Protein 6.7 g/dL (6.3-8.2)
[2016-08-01 15:54] LABS: Creatine Kinase 50 U/L (55-170)
[2016-08-01 15:56] LABS: INR 1.3 (<1.1)
[2016-08-01 16:07] LABS: Creatine Kinase MB 0.9 ng/mL (0.0-2.4); Troponin I <0.012 ng/mL (0.000-0.034)
--- NOTE | 2016-08-01 16:42 | XR ---
EXAMINATION TYPE: XR chest 2V DATE OF EXAM: 08/01/2016 4:38 PM COMPARISON: 07/07/2016 INDICATION: Chest pain, asthma TECHNIQUE: Single frontal view of the chest is obtained. FINDINGS: The heart size is enlarged. The pulmonary vasculature is prominent. Patchy infiltrates are present bilaterally. Correlate for pulmonary edema. Early congestive heart virgie lure could be considered. Small posterior pleural effusions are present. IMPRESSION: 1. Clinical correlation recommended for congestive heart failure.
[2016-08-01] MEDS ORDERED: FUROSEMIDE 10 MG/ML 10 ML VIAL IV STA (17:05)
[2016-08-01] MEDS ORDERED: NALOXONE 0.4 MG/ML 1 ML VIAL IV PRN (17:10)
[2016-08-01] MEDS ORDERED: ACETAMINOPHEN TAB 325 MG TAB PO PRN (17:10)
[2016-08-01] MEDS: SYMBICORT 160-4.5 MCG INHALER INHALATION SCH (19:13)
[2016-08-01 20:14] LABS: Glucose,Whole Blood 137 mg/dL (75-99)
[2016-08-01] MEDS: HYDROcodone/APAP 7.5-325MG 1 EACH TAB PO PRN (20:47)
[2016-08-01] MEDS: RIVAROXABAN 10 MG TAB PO SCH (20:47)
[2016-08-01] MEDS: SERTRALINE 100 MG TAB PO SCH (20:48)
[2016-08-01] MEDS: ATORVASTATIN 40 MG TAB PO SCH (20:48)
[2016-08-01] MEDS: FOLIC ACID 1 MG TAB PO SCH (20:48)
[2016-08-01] MEDS: METOPROLOL TARTRATE 50 MG TAB PO SCH (20:48)
[2016-08-01] MEDS: SODIUM CHLORIDE 0.9% 1,000 ML IV SCH (20:49)
[2016-08-01 21:33] LABS: Creatine Kinase MB 0.9 ng/mL (0.0-2.4); Troponin I 0.013 ng/mL (0.000-0.034)
[2016-08-02] MEDS: FUROSEMIDE 10 MG/ML 10 ML VIAL IV SCH ×4 (00:38→18:49)
[2016-08-02] MEDS: HYDROcodone/APAP 7.5-325MG 1 EACH TAB PO PRN ×3 (03:07→19:59)
[2016-08-02 03:58] LABS: Creatine Kinase 50 U/L (55-170)
[2016-08-02 04:11] LABS: Troponin I <0.012 ng/mL (0.000-0.034)
[2016-08-02] MEDS ORDERED: METOPROLOL TARTRATE 50 MG TAB PO STA (04:47)
[2016-08-02] MEDS: LEVOTHYROXINE 137 MCG TAB PO SCH (06:31)
[2016-08-02] MEDS: SYMBICORT 160-4.5 MCG INHALER INHALATION SCH ×2 (07:03→19:44)
[2016-08-02] MEDS: IPRATROPIUM-ALBUTEROL 3 ML NEB INHALATION PRN ×4 (07:04→19:44)
[2016-08-02] MEDS ORDERED: FUROSEMIDE 40 MG TAB PO SCH (09:00)
[2016-08-02] MEDS: FOLIC ACID 1 MG TAB PO SCH ×2 (10:22→19:56)
[2016-08-02] MEDS: CLOPIDOGREL 75 MG TAB PO SCH (10:22)
[2016-08-02] MEDS: amLODIPine 5 MG TAB PO SCH (10:22)
[2016-08-02] MEDS: METOPROLOL TARTRATE 50 MG TAB PO SCH ×2 (10:23→19:55)
--- NOTE | 2016-08-02 11:16 | P.CRDCN ---
History of Present Illness Consult date: 08/02/16 Chief complaint: Shortness of breath History of present illness: This is a pleasant 46-year-old gentleman who sees Dr. JOHNNIE Wood as an outpatient with a known history of coronary artery disease and prior LAD stenting and left circumflex stenting, paroxysmal atrial fibrillation, hypertension, dyslipidemia , and multiple comorbid conditions, presented to the hospital complaining of progressive dyspnea. The patient has been feeling short of breath over the last few weeks. He describes progressive exertional dyspnea associated with weight gain and progressive bilateral lower extremities edema. The BNP came in to be around 4000. The EKG showed A. fib with RVR. The patient was started on IV Lasix yesterday. Currently he is on metoprolol at 100 mg by mouth twice a day and the heart rate has been around 100. Past Medical History Past Medical History: Atrial Fibrillation, Asthma, Chest Pain / Angina, Heart Failure, COPD, Deep Vein Thrombosis (DVT), Hyperlipidemia, Hypertension, Myocardial Infarction (HI), Skin Disorder, Thyroid Disorder, Vascular Disorder Additional Past Medical History / Comment(s): Morbidly obese, COPD, bronchial asthma, coronary artery disease, multiple abdominal surgeries for a hiatal hernia that was complicated by prolonged hospitalization and prolonged ventilator dependent respiratory failure requiring a tracheostomy tube insertion , seasonal by medical ALLERGIES, diverticular disease, chronic anemia, previous history of DVT of the right lower extremity and current Doppler is showing a chronic clot in his right leg, eczema, hypothyroid, chronic anxiety/depression. Last Myocardial Infarction Date:: History of Any Multi-Drug Resistant Organisms: MRSA Date of last positivie culture/infection: 02/01/15 MDRO Source:: Abdomen Past Surgical History: Bowel Resection, Heart Catheterization With Stent, Hernia Repair Additional Past Surgical History / Comment(s): colonoscopy, heart stents x 3, heart cath with stent to circ, stomach mass removed with colostomy and colostomy reversal (removed a foot of pts colon)-2003, hernia repair with skin grafts and 2 fistula repairs (hospitalized for 1 year @[facility] [place])-2010 Past Anesthesia/Blood Transfusion Reactions: Motion Sickness Additional Past Anesthesia/Blood Transfusion Reaction / Comment(s): FATHER RECEIVED HEPATITIS FROM BLOOD TRANSFUSION Date of Last Stent Placement:: 03/28/2015 Past Psychological History: Depression Smoking Status: Former smoker Past Alcohol Use History: None Reported Additional Past Alcohol Use History / Comment(s): STARTED SMOKING 1997 Past Drug Use History: None Reported - Past Family History Mother Family Medical History: Osteoarthritis (OA), Pneumonia Additional Family Medical History / Comment(s): osteoporosis. arthroscopy surgery for knee Father Family Medical History: Liver Disease, Renal Disease Additional Family Medical History / Comment(s): triple heart bypass. liver transplant. aortic aneursym Medications and Allergies Home Medications Medication Instructions Recorded Confirmed Type Loratadine [Claritin] 10 mg PO DAILY 10/19/13 08/01/16 History Sertraline [Zoloft] 100 mg PO HS 10/19/13 08/01/16 History Atorvastatin [Lipitor] 40 mg PO HS 03/25/15 08/01/16 History Folic Acid 1 mg PO BID 03/25/15 08/01/16 History Levothyroxine Sodium [Synthroid] 137 mcg PO QAM 03/25/15 08/01/16 History Budesonide/Formoterol Fumarate 2 puff INHALATION RT-BID 08/01/16 08/01/16 History [Symbicort 160-4.5 Mcg Inhaler] Metoprolol Tartrate [Lopressor] 100 mg PO BID 08/01/16 08/01/16 History amLODIPine [Norvasc] 5 mg PO DAILY 08/01/16 08/01/16 History Allergies Allergy/AdvReac Type Severity Reaction Status Date / Time adhesive Allergy "PLASTIC Verified 08/01/16 16:30 TAPE PEELS SKIN,PAPER TAPE IS OK" Cephalosporins Allergy Unknown Verified 08/01/16 16:30 linezolid Allergy Unknown Verified 08/01/16 16:30 penicillin G Allergy Rash/Hives Verified 08/01/16 16:30 Physical Exam Vitals: Vital Signs Temp Pulse Pulse Resp BP BP BP 08/02/16 07:15 104 H 08/02/16 07:04 104 H 08/02/16 07:00 97 F L 94 20 102/75 08/02/16 06:33 111 H 114/65 08/02/16 04:29 133 H 08/02/16 04:00 99 F 115 H 20 113/91 08/01/16 22:24 96.1 F L 120 H 16 128/78 08/01/16 18:09 98.5 F 106 H 22 143/60 Pulse Ox 08/02/16 07:15 08/02/16 07:04 08/02/16 07:00 95 08/02/16 06:33 08/02/16 04:29 08/02/16 04:00 94 L 08/01/16 22:24 90 L 08/01/16 18:09 96 Intake and Output 08/01/16 08/02/16 08/02/16 22:59 06:59 14:59 Output Total 650 2100 Balance -650 -2100 Output: Urine 650 2100 Other: Voiding Method Urinal Weight 179.5 kg - Constitutional General appearance: no acute distress - Respiratory Respiratory: bilateral: diminished - Cardiovascular Rhythm: irregularly irregular Heart sounds: normal: S1, S2 Results 08/01/16 15:25 08/01/16 15:25 Cardiac Enzymes 08/01/16 08/02/16 Range/Units 20:57 03:16 CK-MB (CK-2) 0.9 1.0 (0.0-2.4) ng/mL Troponin I 0.013 <0.012 (0.000-0.034) ng/mL Current Medications Generic Name Dose Route Start Last Admin Trade Name Freq PRN Reason Stop Dose Admin Acetaminophen 650 mg 08/01/16 17:10 Tylenol Tab PO Q6HR PRN Mild Pain or Fever > 100.5 Acetaminophen/Hydrocodone Bitart 1 each 08/01/16 20:36 08/02/16 10:21 [place] 7.5-325 PO 1 each Q6H PRN Administration Pain Albuterol/Ipratropium 3 ml 08/01/16 17:14 08/02/16 07:04 Duoneb 0.5 Mg-3 Mg/3 Ml Soln INHALATION 3 ml RT-QID PRN Administration Shortness Of Breath Amlodipine Besylate 5 mg 08/02/16 09:00 08/02/16 10:22 Norvasc PO 5 mg DAILY ZURI Administration Atorvastatin Calcium 40 mg 08/01/16 21:00 08/01/16 20:48 Lipitor PO 40 mg HS ZURI Administration Budesonide/Formoterol Fumarate 2 puff 08/01/16 20:00 08/02/16 07:03 Symbicort 160-4.5 Mcg Inhaler INHALATION 2 puff RT-BID ZURI Administration Clopidogrel Bisulfate 75 mg 08/02/16 09:00 08/02/16 10:22 Plavix PO 75 mg DAILY ZURI Administration Folic Acid 1 mg 08/01/16 21:00 08/02/16 10:22 Folic Acid PO 1 mg BID ZURI Administration Furosemide 60 mg 08/02/16 00:00 08/02/16 06:31 Lasix IV 60 mg Q6HR ZURI Administration Hydromorphone HCl 0.5 mg 08/02/16 10:28 Dilaudid IVP Q6HR PRN Pain Sodium Chloride 1,000 mls @ 50 mls/hr 08/01/16 17:15 08/01/16 20:49 Saline 0.9% IV 10 mls/hr .Q20H ZURI Administration Levothyroxine Sodium 137 mcg 08/02/16 06:30 08/02/16 06:31 Synthroid PO 137 mcg QAM@0630 ZURI Administration Metoprolol Tartrate 100 mg 08/01/16 21:00 08/02/16 10:23 Lopressor PO 100 mg BID ZURI Administration Naloxone HCl 0.2 mg 08/01/16 17:10 Narcan IV Q2M PRN Opioid Reversal Rivaroxaban 20 mg 08/01/16 17:30 08/01/16 20:47 Xarelto PO 20 mg W/SUPPER ZURI Administration Sertraline HCl 100 mg 08/01/16 21:00 08/01/16 20:48 Zoloft PO 100 mg HS ZURI Administration Intake and Output 08/01/16 08/02/16 08/02/16 22:59 06:59 14:59 Output Total 650 2100 Balance -650 -2100 Output: Urine 650 2100 Other: Voiding Method Urinal Weight 179.5 kg Assessment and Plan Plan: Assessment #1 congestive heart failure exacerbation likely secondary to diastole dysfunction #2 A. fib with slightly uncontrolled heart rate #3 known coronary artery disease and prior stenting as described above #4 morbid obesity #5 multiple comorbid conditions Plan #1 continue the IV Lasix #2 continue monitoring the kidney function and electrolytes #3 follow-up with the patient
[2016-08-02] MEDS: HYDROmorphone 1 MG/ML 1 ML SYRINGE IVP PRN ×2 (12:45→17:59)
[2016-08-02 14:23] VITALS: BMI 56.7
[2016-08-02] MEDS ORDERED: ALPRAZolam 0.25 MG TAB PO PRN (14:58)
[2016-08-02] MEDS ORDERED: TEMAZEPAM 15 MG CAP PO PRN (14:58)
[2016-08-02] MEDS ORDERED: NITROGLYCERIN SL TABS 0.4 MG TAB SUBLINGUAL PRN (14:58)
[2016-08-02] MEDS: SODIUM CHLORIDE 0.9% 1,000 ML IV SCH (15:54)
--- NOTE | 2016-08-02 16:35 | HP ---
DATE OF ADMISSION: 08/01/2016 CHIEF COMPLAINT: Shortness of breath. HISTORY OF PRESENT ILLNESS: This 46-year-old woman with a past history of atrial fibrillation/COPD, history of CHF, history of DVT, history of hypertension, hyperlipidemia, history of myocardial infarction, history of morbid obesity, history of multiple abdominal surgeries, hiatal hernia, bowel resection, CAD, stent, being followed by Dr. Bautista in the outpatient setting, was not feeling well over the past several days. The patient had increasing shortness of breath on ambulation. The patient did not have any cough or any sputum, any fever. The patient was even unable to take a couple of steps, according to him, and was also going to pass out. The patient also had some mid-sternal pains which were radiating to the left side when taking deep breaths. Because of multiple complaints, the patient came to [facility] and was admitted for further evaluation and treatment. Chest x-ray showed evidence of CHF. BNP was elevated up to 4990. Patient was started on IV Lasix 60 mg IV q.6. Cardiology evaluation has been sought. EKG showed atrial fibrillation with a heart rate around 102 with minimal fast ventricular rate. There is no history of any fever, rigor, chills. No history of headache, loss of consciousness, seizures. PAST MEDICAL HISTORY: 1. History of atrial fibrillation. 2. Asthma. 3. COPD. 4. CHF. 5. History of DVT. 6. Hypertension. 7. Hyperlipidemia. 8. History of bowel resection. 9. CAD, stent. HOME MEDICATIONS: 1. Norvasc 5 mg p.o. daily. 2. Zoloft 100 mg p.o. at bedtime. 3. Xarelto 20 mg with supper. 4. Nitrostat 0.4 sublingually q.5 p.r.n. 5. Lopressor 100 mg p.o. b.i.d. 6. Claritin 10 mg p.o. daily. 7. Synthroid 137 mcg p.o. daily.. 8. DuoNeb q.i.d. and p.r.n. 9. Lasix 40 mg p.o. daily. 10. Folic acid 1 mg p.o. b.i.d. 11. Plavix 75 mg daily. 12. Symbicort 160/4.5 two puffs b.i.d. 13. Lipitor 40 mg at bedtime. ALLERGIES: 1. ADHESIVES. 2. CEPHALOSPORINS. 3. LINEZOLID. 4. PENICILLIN G. FAMILY HISTORY: History of DJD, pneumonia, osteoporosis in the family. SOCIAL HISTORY: Previous history of smoking. No current smoking or alcohol intake. REVIEW OF SYSTEMS: ENT: Diminished hearing. Diminished vision. CARDIOVASCULAR: As mentioned earlier. RESPIRATORY: As mentioned earlier. GI: No nausea. : No dysuria. NERVOUS SYSTEM: No numbness, weakness. ALLERGY/IMMUNOLOGY: No asthma or hayfever. MUSCULOSKELETAL: As mentioned earlier. HEMATOLOGY/ONCOLOGY: No history of anemia. ENDOCRINE: As mentioned earlier. CONSTITUTIONAL: As mentioned earlier. DERMATOLOGY: As mentioned earlier. RHEUMATOLOGY: Negative. PSYCHIATRY: As mentioned earlier. PHYSICAL EXAMINATION: Patient is alert and oriented x3. Pulse is 104, blood pressure 102/75, respiration 20, temperature 97 degrees, pulse ox 95% on 3 L. HEENT: Conjunctivae normal. Oral mucosa moist. NECK: No jugular venous distention. No carotid bruit. Obese. CARDIOVASCULAR SYSTEM: S1, S2 irregular. No S3. No S4. RESPIRATORY: Breath sounds diminished at the bases. A few bilateral scattered rhonchi and crackles. Breathing efforts increased. ABDOMEN: Soft, obese, nontender. No mass palpable. LEGS: Bilateral leg edema and chronic changes also present. NERVOUS SYSTEM: Higher functions as mentioned earlier. Moves all 4 limbs. No focal motor or sensory deficit. LYMPHATICS: No lymph node palpable in neck, axillae or groin. SKIN: As mentioned earlier. JOINTS: No active deforming arthropathy. LABS: WBC 6.9, hemoglobin 11.8. INR is 1.3. D-dimer is 0.7. Glucose 120 and 137. Albumin is 3.4. ASSESSMENT: 1. Shortness of breath; possible congestive heart failure, acute exacerbation, with acute on chronic diastolic dysfunction. Ejection fraction was found to be 50% to 55%. 2. History of chronic obstructive pulmonary disease, asthma. 3. Anemia, normocytic. 4. Super morbid obesity with a body mass index of 56.8. 5. Increased creatinine with chronic kidney disease, stage III. 6. History of atrial fibrillation with a fast ventricular rate. 7. History of congestive heart failure. 8. History of deep venous thrombosis. 9. Hypertension. 10. Hyperlipidemia. 11. History of myocardial infarction. 12. History of coronary artery disease and stent. 13. History of multiple abdominal surgeries. 14. History of hiatal hernia. 15. History of prolonged respiratory failure. 16. Chronic anemia. 17. History of deep venous thrombosis in the right lower leg. 18. Anxiety, depression not otherwise specified. 19. History of history of methicillin-resistant Staphylococcus aureus. 20. History of bowel resection. 21. History of colostomy and reversal. 22. Remote history of nicotine dependence. 23. FULL CODE. RECOMMENDATIONS AND DISCUSSION: In this 46-year-old gentleman who presented with multiple complex medical issues, we will monitor the patient closely, continue the current medications, continue symptomatic treatment. Will monitor fluid/electrolyte balance closely. Lasix 60 IV q.6 has been initiated, as mentioned earlier. Fluid restriction to 1200 mL per 24 hours. Cardiology consultation. Reconcile the home medications, including Xarelto. Consult Dr. Overton, also. Otherwise, repeat labs have been ordered and DVT prophylaxis. Guarded prognosis because of multiple complex medical issues. Further recommendations to follow.
[2016-08-02] MEDS: RIVAROXABAN 10 MG TAB PO SCH (17:37)
[2016-08-02] MEDS: ATORVASTATIN 40 MG TAB PO SCH (19:56)
[2016-08-02] MEDS: SERTRALINE 100 MG TAB PO SCH (19:57)
[2016-08-03] MEDS: FUROSEMIDE 10 MG/ML 10 ML VIAL IV SCH ×4 (00:43→20:08)
[2016-08-03] MEDS: HYDROmorphone 1 MG/ML 1 ML SYRINGE IVP PRN ×3 (06:12→20:33)
[2016-08-03] MEDS: LEVOTHYROXINE 137 MCG TAB PO SCH (06:16)
[2016-08-03] MEDS: METOPROLOL TARTRATE 50 MG TAB PO SCH ×2 (06:48→20:09)
[2016-08-03 08:33] LABS: Anisocytosis Slight; Basophils % (A) 1 %; CHCM 32.5; Eosinophils # (A) 0.3 k/uL (0-0.7); Eosinophils % (A) 5 %; HCT 38.6 % (39.0-53.0); HDW 4.23; HGB 11.8 gm/dL (13.0-17.5); Hypochromasia Moderate; Luc # (Auto) 0.16; Luc % (Auto) 3; Lymphocytes # (A) 0.8 k/uL (1.0-4.8); Lymphocytes % (A) 15 %; MCH 26.6 pg (25.0-35.0); MCHC 30.7 g/dL (31.0-37.0); MCV 86.7 fL (80.0-100.0); Mean Platelet Volume 7.2; Monocytes # (A) 0.3 k/uL (0-1.0); Monocytes % (A) 5 %; Neutrophils # (A) 4.2 k/uL (1.3-7.7); Neutrophils % (A) 72 %; Poikilocytosis Moderate; RBC 4.45 m/uL (4.30-5.90); WBC 5.8 k/uL (3.8-10.6); WBC (Perox) 6.05
[2016-08-03 08:39] LABS: Calcium 8.3 mg/dL (8.4-10.2); Potassium 3.7 mmol/L (3.5-5.1)
[2016-08-03] MEDS: LORATADINE 10 MG TAB PO SCH (08:42)
[2016-08-03] MEDS: FOLIC ACID 1 MG TAB PO SCH ×2 (08:42→20:08)
[2016-08-03] MEDS: CLOPIDOGREL 75 MG TAB PO SCH (08:42)
[2016-08-03] MEDS: amLODIPine 5 MG TAB PO SCH (08:42)
[2016-08-03] MEDS: HYDROcodone/APAP 7.5-325MG 1 EACH TAB PO PRN ×2 (08:46→19:41)
[2016-08-03] MEDS: IPRATROPIUM-ALBUTEROL 3 ML NEB INHALATION PRN ×2 (09:13→13:25)
[2016-08-03] MEDS: SYMBICORT 160-4.5 MCG INHALER INHALATION SCH ×2 (09:13→20:53)
--- NOTE | 2016-08-03 12:51 | P.PN ---
Subjective Principal diagnosis: CHF/A. fib This is a pleasant 46-year-old gentleman who sees Dr. JOHNNIE Wood as an outpatient with a known history of coronary artery disease and prior LAD stenting and left circumflex stenting, paroxysmal atrial fibrillation, hypertension, dyslipidemia , and multiple comorbid conditions, presented to the hospital complaining of progressive dyspnea. The patient has been feeling short of breath over the last few weeks. He describes progressive exertional dyspnea associated with weight gain and progressive bilateral lower extremities edema. The BNP came in to be around 4000. The EKG showed A. fib with RVR. On follow-up with the patient today, he continues to be short of breath with minimal activity. The heart rate continues to be uncontrolled as well in spite of the high dose of metoprolol. On physical examination he still have diminished breathing sounds bilaterally worse on the right side. He underwent an echocardiogram in May 2016 and that showed normal LV function. The blood work from today showed slightly worse renal function. I am going to decrease the dose of Lasix to 40 mg IV twice a day from 60 IV 3 times a day. Also I am going to stop the Norvasc and start the patient on Cardizem for better heart rate control. Objective - Vital Signs Vital signs: Vital Signs Temp 97 F L 08/03/16 07:00 Pulse 96 08/03/16 09:26 Resp 17 08/03/16 07:00 BP 106/64 08/03/16 07:00 Pulse Ox 95 08/03/16 07:00 Intake & Output 08/02/16 08/03/16 08/03/16 18:59 06:59 18:59 Intake Total 700 Output Total 1450 1500 800 Balance -1450 -800 -800 Weight 179.5 kg 176.5 kg Intake: Oral 700 Output: Urine 1450 1500 800 Other: Voiding Method Urinal Urinal Urinal # Voids 2 - Constitutional General appearance: Present: no acute distress - Respiratory Respiratory: bilateral: diminished - Cardiovascular Rhythm: irregularly irregular - Labs CBC & Chem 7: 08/03/16 08:00 08/03/16 08:00 Labs: Abnormal Lab Results - Last 24 Hours (Table) 08/03/16 08/03/16 Range/Units 08:00 08:00 Hgb 11.8 L (13.0-17.5) gm/dL Hct 38.6 L (39.0-53.0) % MCHC 30.7 L (31.0-37.0) g/dL RDW 17.0 H (11.5-15.5) % Lymphocytes # 0.8 L (1.0-4.8) k/uL Chloride 96 L (98-107) mmol/L Carbon Dioxide 36 H (22-30) mmol/L BUN 24 H (9-20) mg/dL Creatinine 2.01 H (0.66-1.25) mg/dL Glucose 117 H (74-99) mg/dL Calcium 8.3 L (8.4-10.2) mg/dL Assessment and Plan Plan: Assessment #1 congestive heart failure exacerbation secondary to diastole dysfunction #2 A. fib with slightly uncontrolled heart rate #3 known coronary artery disease and prior stenting as described above #4 morbid obesity #5 multiple comorbid conditions Plan #1 continue the IV Lasix #2 continue monitoring the kidney function and electrolytes #3 follow-up with the patient
--- NOTE | 2016-08-03 14:36 | P.CNPUL ---
History of Present Illness Consult date: 08/03/16 Requesting physician: Joshua Rubi Reason for consult: dyspnea Chief complaint: Shortness of breath History of present illness: This is a pleasant 46-year-old gentleman with a known history of chronic obstructive pulmonary disease, morbid obesity, DVT, atrial fibrillation anticoagulated on Xarelto, hyperlipidemia, hypertension, previous myocardial infarction and stent placements 3, hypothyroidism, colectomy with colostomy and subsequent reversal, multiple abdominal surgeries for hiatal hernia that was complicated by prolonged hospitalization and prolonged ventilatory dependent respiratory failure requiring tracheostomy tube insertion and subsequent removal. He's had multiple admissions for dyspnea, multifactorial with COPD exacerbations, recurrent tracheobronchitis, diastolic congestive heart failure, preserved LV with an EF between 50-55%. He was just discharged on 07/10/2016. He did see Dr. Corona in the sleep Center and was set up for a sleep study which had not been conducted. He suspects he has obstructive sleep apnea, obesity/hypoventilation syndrome on top of his COPD/asthma. He was readmitted here again on 08/01/2016 with complaints of increasing shortness of breath. He is fairly comfortable at rest but becomes quite dyspneic on minimal exertion. He is having midsternal chest pain that radiates to the left side each time he takes a deep breath. No fever, chills or night sweats. Troponins are negative 3. ProBNP 4990. His chest x-ray revealed evidence of mild congestive heart failure. There is small posterior pleural effusions as well as. Doppler of the lower extremities reveals evidence of a chronic DVT in the left lower extremity. No leukocytosis. He has remained afebrile. He is maintaining O2 saturations in the mid 90s on 2 L/m per nasal cannula. Hemodynamically stable. He is seen today in consultation 08/03/2016 on the regular medical floor. He is awake and alert in no acute distress. He is sitting up in the chair at the bedside. He does state he is fairly comfortable at rest but does have significant dyspnea on minimal exertion. He has a loose nonproductive cough. Review of Systems 14 point review of system was conducted. All negative other than as mentioned the HPI. Past Medical History Past Medical History: Atrial Fibrillation, Asthma, Chest Pain / Angina, Heart Failure, COPD, Deep Vein Thrombosis (DVT), Hyperlipidemia, Hypertension, Myocardial Infarction (ND), Skin Disorder, Thyroid Disorder, Vascular Disorder Additional Past Medical History / Comment(s): Morbidly obese, COPD, bronchial asthma, coronary artery disease, multiple abdominal surgeries for a hiatal hernia that was complicated by prolonged hospitalization and prolonged ventilator dependent respiratory failure requiring a tracheostomy tube insertion , seasonal by medical ALLERGIES, diverticular disease, chronic anemia, previous history of DVT of the right lower extremity and current Doppler is showing a chronic clot in his right leg, eczema, hypothyroid, chronic anxiety/depression. Last Myocardial Infarction Date:: History of Any Multi-Drug Resistant Organisms: MRSA Date of last positivie culture/infection: 02/01/15 MDRO Source:: Abdomen Past Surgical History: Bowel Resection, Heart Catheterization With Stent, Hernia Repair Additional Past Surgical History / Comment(s): colonoscopy, heart stents x 3, heart cath with stent to circ, stomach mass removed with colostomy and colostomy reversal (removed a foot of pts colon)-2003, hernia repair with skin grafts and 2 fistula repairs (hospitalized for 1 year @[facility] in [place])-2010 Past Anesthesia/Blood Transfusion Reactions: Motion Sickness Additional Past Anesthesia/Blood Transfusion Reaction / Comment(s): FATHER RECEIVED HEPATITIS FROM BLOOD TRANSFUSION Date of Last Stent Placement:: 03/28/2015 Past Psychological History: Depression Smoking Status: Former smoker Past Alcohol Use History: None Reported Additional Past Alcohol Use History / Comment(s): STARTED SMOKING 1997 Past Drug Use History: None Reported - Past Family History Mother Family Medical History: Osteoarthritis (OA), Pneumonia Additional Family Medical History / Comment(s): osteoporosis. arthroscopy surgery for knee Father Family Medical History: Liver Disease, Renal Disease Additional Family Medical History / Comment(s): triple heart bypass. liver transplant. aortic aneursym Medications and Allergies Home Medications Medication Instructions Recorded Confirmed Type Loratadine [Claritin] 10 mg PO DAILY 10/19/13 08/01/16 History Sertraline [Zoloft] 100 mg PO HS 10/19/13 08/01/16 History Atorvastatin [Lipitor] 40 mg PO HS 03/25/15 08/01/16 History Folic Acid 1 mg PO BID 03/25/15 08/01/16 History Levothyroxine Sodium [Synthroid] 137 mcg PO QAM 03/25/15 08/01/16 History Budesonide/Formoterol Fumarate 2 puff INHALATION RT-BID 08/01/16 08/01/16 History [Symbicort 160-4.5 Mcg Inhaler] Metoprolol Tartrate [Lopressor] 100 mg PO BID 08/01/16 08/01/16 History amLODIPine [Norvasc] 5 mg PO DAILY 08/01/16 08/01/16 History Allergies Allergy/AdvReac Type Severity Reaction Status Date / Time adhesive Allergy "PLASTIC Verified 08/01/16 16:30 TAPE PEELS SKIN,PAPER TAPE IS OK" Cephalosporins Allergy Unknown Verified 08/01/16 16:30 linezolid Allergy Unknown Verified 08/01/16 16:30 penicillin G Allergy Rash/Hives Verified 08/01/16 16:30 Physical Exam Vitals: Vital Signs Temp Pulse Pulse Pulse Pulse Resp BP 08/03/16 13:33 106 H 08/03/16 13:25 110 H 08/03/16 09:26 96 08/03/16 09:15 88 08/03/16 07:00 97 F L 72 17 106/64 08/03/16 06:15 113 H 08/03/16 00:47 118 H 08/02/16 20:08 104 H 08/02/16 19:46 100 08/02/16 19:14 141 H 08/02/16 19:00 98.1 F 110 H 21 08/02/16 16:52 105 H 20 08/02/16 16:00 103 H 20 08/02/16 15:53 98.1 F 103 H 20 08/02/16 15:34 102 H 08/02/16 15:28 99 BP Pulse Ox 08/03/16 13:33 08/03/16 13:25 08/03/16 09:26 08/03/16 09:15 08/03/16 07:00 95 08/03/16 06:15 118/65 08/03/16 00:47 110/66 08/02/16 20:08 08/02/16 19:46 08/02/16 19:14 08/02/16 19:00 131/85 94 L 08/02/16 16:52 08/02/16 16:00 08/02/16 15:53 143/58 96 08/02/16 15:34 08/02/16 15:28 Intake and Output 02/08/03/16 08/03/16 22:59 06:59 14:59 Intake Total 700 Output Total 1350 1000 800 Balance -650 -1000 -800 Intake: Oral 700 Output: Urine 1350 1000 800 Other: Voiding Method Urinal Urinal # Voids 2 Weight 176.5 kg GENERAL EXAM: Morbidly obese. Alert, comfortable in no apparent distress. HEAD: Normocephalic. EYES: Normal reaction of pupils, equal size. NOSE: Clear with pink turbinates. THROAT: There is crowding the posterior pharynx. No erythema or exudates. NECK: Short. No masses, no JVD. CHEST: No chest wall deformity. LUNGS: Equal air entry with no crackles, wheeze, rhonchi or dullness. CVS: S1 and S2 normal with no audible murmurs, irregular rhythm. ABDOMEN: Obese, normal bowel sounds, no guarding or rigidity. SPINE: No scoliosis or deformity SKIN: Discoloration and changes of chronic venous stasis of the lower extremities. CENTRAL NERVOUS SYSTEM: No focal deficits, tone is normal in all 4 extremities. [place] is: There is 1-2+ lower extremity peripheral edema. No clubbing, no cyanosis. Peripheral pulses are intact. Results - Laboratory Findings CBC and BMP: 08/03/16 08:00 08/03/16 08:00 PT/INR, D-dimer PT 13.0 sec (9.0-12.0) H 08/01/16 15:25 INR 1.3 (<1.1) 08/01/16 15:25 D-Dimer 0.70 mg/L FEU (<0.60) H 08/01/16 15:25 Abnormal lab findings: Abnormal Labs 08/01/16 08/01/16 08/02/16 20:13 20:57 03:16 Hgb Hct MCHC RDW Lymphocytes # Chloride Carbon Dioxide BUN Creatinine Glucose POC Glucose (mg/dL) 137 H Calcium Total Creatine Kinase 50 L 50 L 08/03/16 08/03/16 08:00 08:00 Hgb 11.8 L Hct 38.6 L MCHC 30.7 L RDW 17.0 H Lymphocytes # 0.8 L Chloride 96 L Carbon Dioxide 36 H BUN 24 H Creatinine 2.01 H Glucose 117 H POC Glucose (mg/dL) Calcium 8.3 L Total Creatine Kinase - Diagnostic Findings Chest x-ray: image reviewed Assessment and Plan Plan: Impression: #1 Acute exacerbation of diastolic congestive heart failure. Preserved left ventricular systolic function with estimated ejection fraction 50-55%. #2 Coronary artery disease with previous myocardial infarction and stent placements 3. #3 Morbid obesity. #4 Obesity/hypoventilation/obstructive sleep apnea syndrome. Been worked up in the outpatient setting. #5 Atrial fibrillation, anticoagulated with Xarelto. #6 Hypothyroidism. #7 Hypertension. #8 Hyperlipidemia. #9 History of respiratory failure with prolonged mechanical ventilatory support requiring tracheostomy insertion and subsequent removal. #10 Left lower extremity DVT, chronic. #11 Chronic venous stasis of the lower extremities bilaterally. #12 Acute on chronic renal failure, baseline approximately 1.5. Today's creatinine 2.01. #13 History of multiple abdominal surgeries. Plan: The patient was seen and evaluated by Dr. Parks. His chest x-ray and labs were reviewed. This is more a picture of diastolic congestive heart failure and he is currently on IV Lasix. He'll continue with his current pulmonary medications as well. We will increase his activity as tolerated. He remains on Xarelto for anticoagulation. We will continue to follow make further recommendations based on his clinical status.
[2016-08-03 17:07] LABS: Appearance,Urine Clear (Clear); Bilirubin,Urine Negative (Negative); Glucose,Urine (UA) Negative (Negative); Ketones,Urine Negative (Negative); Leukocyte Esterase,Urine Negative (Negative); Mucus,Urine Occasional /hpf; Nitrite,Urine Negative (Negative); PH, Urine 5.5 (5.0-8.0); Particle Count 2870; Protein,Urine 1+ (Negative); RBC,Urine 16 /hpf (0-5); Specific Gravity,Urine 1.015 (1.001-1.035); Squamous Epithelial Cell,Urine <1 /hpf (0-4); UA Billing (MACRO vs. MICRO) MICRO; WBC,Urine 2 /hpf (0-5)
[2016-08-03] MEDS: RIVAROXABAN 10 MG TAB PO SCH (17:42)
[2016-08-03] MEDS: LEVOFLOXACIN 500MG-D5W PMX 500 MG in DEXTROSE/WATER 1 100ML.BAG IVPB SCH (18:18)
[2016-08-03] MEDS: ATORVASTATIN 40 MG TAB PO SCH (20:09)
[2016-08-03] MEDS: SERTRALINE 100 MG TAB PO SCH (20:12)
--- NOTE | 2016-08-03 20:32 | PN ---
DATE OF SERVICE: 08/03/2016 This 46-year-old gentleman was admitted with shortness of breath and CHF acute exacerbation, complaining of significant cough and sputum also. No chest pain or palpitations. No fever. PAST MEDICAL HISTORY: Reviewed. REVIEW OF SYSTEMS: CARDIOVASCULAR: As mentioned earlier. RESPIRATORY: As mentioned earlier. GI: No nausea. : No dysuria. NERVOUS: No numbness or weakness. Current medications are reviewed, include: 1. Tylenol 650 every 6 hours p.r.n. 2. [place] 7.5 every 6 hours p.r.n. 3. DuoNeb q.i.d. and p.r.n. 4. Xanax 0.5 t.i.d. 5. Lipitor 40 mg q.h.s. 6. Symbicort 160/4.5, 2 puffs b.i.d. 7. Plavix 75 mg p.o. daily. 8. Cardizem CD 120 mg daily. 9. Folic acid 1 mg p.o. b.i.d. 10. Lasix 40 mg IV b.i.d. 11. Dilaudid 0.5 mg every 6 hours p.r.n. 12. Levaquin 500 mg daily. 13. Synthroid 137 mcg p.o. daily. 14. Claritin 10 mg daily. 15. Lopressor 100 mg p.o. b.i.d. 16. Nitrostat. 17. Xarelto 20 mg with supper. 19. Restoril 50 mg q.h.s. PHYSICAL EXAM: Patient is alert and oriented x3. Pulse 106, blood pressure 108/52, respirations 18, temperature 98.1, pulse ox 94% on room air. EYES: Conjunctivae normal. NECK: No jugular venous distension. CARDIOVASCULAR: S1 and S2 muffled. RESPIRATORY: Breath sounds diminished in the bases. Bilaterally scattered rhonchi and crackles. Expiratory wheezing also present. Abdomen is soft, nontender. No mass palpable. LEGS: No edema. No swelling. NERVOUS SYSTEM: Higher functions as mentioned. Moves all 4 limbs. No focal motor or sensory deficits. LYMPHATIC: No lymph nodes palpable in neck or axillae. SKIN: No ulcers, rash or bleeding. LABS: WBC 5.8, hemoglobin is 11.8. Creatinine is 2.01. ASSESSMENT: 1. Shortness of breath, possible congestive heart failure acute exacerbation with acute on chronic diastolic dysfunction, ejection fraction 50% to 55%. 2. Acute purulent tracheobronchitis. 3. History of chronic obstructive pulmonary disease, asthma. 4. Anemia, normocytic. 5. Morbid obesity with a body mass index of 56.8. 6. Increased creatinine with chronic kidney disease, stage 3. 7. History of atrial fibrillation with a fast ventricular rate. 8. History of congestive heart failure. 9. History of deep venous thrombosis. 10. Hypertension. 11. Hyperlipidemia. 12. History of myocardial infarction. 13. History of coronary artery disease with stent. 14. History of history of multiple abdominal surgeries. 15. History of hiatal hernia. 16. History of prolonged respiratory failure. 17. History of chronic anemia. 18. History of deep venous thrombosis in the right lower leg. 19. Anxiety and depression, not otherwise specified. 20. Previous history of methicillin-resistant Staphylococcus aureus. 21. History of bowel resection. 22. History of colostomy reversal. 23. Remote history of nicotine dependence. 24. FULL CODE. RECOMMENDATIONS AND DISCUSSION: Recommend to continue current medications, continue with monitoring and symptomatic treatment. Otherwise at this time, I recommend continuing with current medications. The creatinine is worsening to 2.01. I would cut down the dose of Lasix, add empiric antibiotics. Guarded prognosis because of multiple complex medical issues. Further recommendations to follow. MTDD
[2016-08-04] MEDS: HYDROmorphone 1 MG/ML 1 ML SYRINGE IVP PRN ×2 (04:28→11:06)
[2016-08-04] MEDS: LEVOTHYROXINE 137 MCG TAB PO SCH (06:24)
[2016-08-04 07:31] LABS: Anisocytosis Slight; Basophils % (A) 0 %; CHCM 32.9; Eosinophils # (A) 0.2 k/uL (0-0.7); Eosinophils % (A) 3 %; HCT 36.7 % (39.0-53.0); HDW 4.36; HGB 11.5 gm/dL (13.0-17.5); Hypochromasia Slight; Luc # (Auto) 0.14; Luc % (Auto) 2; Lymphocytes # (A) 0.6 k/uL (1.0-4.8); Lymphocytes % (A) 9 %; MCH 26.8 pg (25.0-35.0); MCHC 31.3 g/dL (31.0-37.0); MCV 85.5 fL (80.0-100.0); Mean Platelet Volume 7.3; Monocytes # (A) 0.3 k/uL (0-1.0); Monocytes % (A) 4 %; Neutrophils # (A) 5.2 k/uL (1.3-7.7); Neutrophils % (A) 81 %; Poikilocytosis Moderate; RBC 4.29 m/uL (4.30-5.90); RDW 16.9 % (11.5-15.5); WBC 6.5 k/uL (3.8-10.6); WBC (Perox) 6.77
[2016-08-04] MEDS: SYMBICORT 160-4.5 MCG INHALER INHALATION SCH ×2 (07:32→20:31)
[2016-08-04] MEDS: IPRATROPIUM-ALBUTEROL 3 ML NEB INHALATION PRN ×2 (07:32→11:25)
[2016-08-04 07:37] LABS: Calcium 8.5 mg/dL (8.4-10.2); Potassium 3.6 mmol/L (3.5-5.1)
[2016-08-04] MEDS: CLOPIDOGREL 75 MG TAB PO SCH (07:42)
[2016-08-04] MEDS: HYDROcodone/APAP 7.5-325MG 1 EACH TAB PO PRN (07:42)
[2016-08-04] MEDS: METOPROLOL TARTRATE 50 MG TAB PO SCH ×2 (07:42→21:20)
[2016-08-04] MEDS: FUROSEMIDE 10 MG/ML 10 ML VIAL IV SCH (07:43)
[2016-08-04] MEDS: LORATADINE 10 MG TAB PO SCH (07:44)
[2016-08-04] MEDS: FOLIC ACID 1 MG TAB PO SCH ×2 (07:44→21:21)
[2016-08-04] MEDS ORDERED: DILTIAZEM CD 120 MG CAP.ER.24H PO SCH (09:00)
--- NOTE | 2016-08-04 09:27 | XR ---
EXAMINATION TYPE: XR chest 1V DATE OF EXAM: 08/04/2016 8:53 AM CLINICAL HISTORY: Difficulty breathing and CHF progress study. TECHNIQUE: Single AP portable upright view of the chest is obtained. COMPARISON: Chest x-ray from 3 days earlier FINDINGS: There is persistent cardiomegaly with suspected tiny bilateral pleural effusions. There is suspected some central vascular congestion though this may be improved. No pneumothorax is seen bila terally. Multilevel spurring in thoracic spine is redemonstrated. IMPRESSION: Cardiomegaly with small bilateral pleural effusions and mild central vascular congestion identified, consider CHF exacerbation, degree of central vascular congestion is felt improved from pr ior.
[2016-08-04] MEDS ORDERED: MAG HYDROX/AL HYDROX/SIMETH 30 ML CUP PO PRN (10:49)
[2016-08-04] MEDS ORDERED: DILTIAZEM CD 120 MG CAP.ER.24H PO STA (12:59)
--- NOTE | 2016-08-04 13:06 | P.PN ---
Subjective This is a pleasant 46-year-old gentleman with a known history of chronic obstructive pulmonary disease, morbid obesity, DVT, atrial fibrillation anticoagulated on Xarelto, hyperlipidemia, hypertension, previous myocardial infarction and stent placements 3, hypothyroidism, colectomy with colostomy and subsequent reversal, multiple abdominal surgeries for hiatal hernia that was complicated by prolonged hospitalization and prolonged ventilatory dependent respiratory failure requiring tracheostomy tube insertion and subsequent removal. He's had multiple admissions for dyspnea, multifactorial with COPD exacerbations, recurrent tracheobronchitis, diastolic congestive heart failure, preserved LV with an EF between 50-55%. He was just discharged on 07/10/2016. He did see Dr. Corona in the sleep Center and was set up for a sleep study which had not been conducted. He suspects he has obstructive sleep apnea, obesity/hypoventilation syndrome on top of his COPD/asthma. He was readmitted here again on 08/01/2016 with complaints of increasing shortness of breath. He is fairly comfortable at rest but becomes quite dyspneic on minimal exertion. He is having midsternal chest pain that radiates to the left side each time he takes a deep breath. No fever, chills or night sweats. Troponins are negative 3. ProBNP 4990. His chest x-ray revealed evidence of mild congestive heart failure. There is small posterior pleural effusions as well as. Doppler of the lower extremities reveals evidence of a chronic DVT in the left lower extremity. No leukocytosis. He has remained afebrile. He is maintaining O2 saturations in the mid 90s on 2 L/m per nasal cannula. Hemodynamically stable. The patient is seen again today 08/04/2016 in follow-up on the regular medical floor. He is awake and alert in no acute distress. He is quite sleepy during the daytime even while up in a chair. He has been getting Dilaudid and [place] every 6 hours. He also has suspected obstructive sleep apnea. He denies any worsening shortness of breath at this time. He has a loose nonproductive cough. No chills or night sweats. No leukocytosis. Afebrile. Objective - Vital Signs Vital signs: Vital Signs Temp 98.2 F 08/04/16 07:00 Pulse 104 H 08/04/16 11:35 Resp 16 08/04/16 08:00 BP 120/63 08/04/16 07:00 Pulse Ox 94 L 08/04/16 07:00 Intake & Output 08/03/16 08/04/16 08/04/16 18:59 06:59 18:59 Intake Total 240 100 460 Output Total 800 Balance -560 100 460 Weight 164 kg Intake: Intake, IV Titration 100 Amount Levofloxacin 500Mg-D5w 100 Pmx 500 mg In Dextrose/ Water 1 100ml.bag @ 100 mls/hr IVPB Q24H ZURI Rx#: [id number] Oral 240 460 Output: Urine 800 Other: Voiding Method Urinal Urinal Urinal # Voids 2 - Exam GENERAL EXAM: Morbidly obese. Alert, comfortable in no apparent distress. HEAD: Normocephalic. EYES: Normal reaction of pupils, equal size. NOSE: Clear with pink turbinates. THROAT: There is crowding the posterior pharynx. No erythema or exudates. NECK: Short. No masses, no JVD. CHEST: No chest wall deformity. LUNGS: Equal air entry with no crackles, wheeze, rhonchi or dullness. CVS: S1 and S2 normal with no audible murmurs, irregular rhythm. ABDOMEN: Obese, normal bowel sounds, no guarding or rigidity. SPINE: No scoliosis or deformity SKIN: Discoloration and changes of chronic venous stasis of the lower extremities. CENTRAL NERVOUS SYSTEM: No focal deficits, tone is normal in all 4 extremities. Sturman is: There is 1-2+ lower extremity peripheral edema. No clubbing, no cyanosis. Peripheral pulses are intact. - Labs CBC & Chem 7: 08/04/16 06:54 08/04/16 06:54 Labs: Abnormal Lab Results - Last 24 Hours (Table) 08/03/16 08/04/16 08/04/16 Range/Units 16:45 06:54 06:54 RBC 4.29 L (4.30-5.90) m/uL Hgb 11.5 L (13.0-17.5) gm/dL Hct 36.7 L (39.0-53.0) % RDW 16.9 H (11.5-15.5) % Lymphocytes # 0.6 L (1.0-4.8) k/uL Carbon Dioxide 33 H (22-30) mmol/L BUN 27 H (9-20) mg/dL Creatinine 1.70 H (0.66-1.25) mg/dL Glucose 119 H (74-99) mg/dL Urine Protein 1+ H (Negative) Urine Blood Small H (Negative) Urine RBC 16 H (0-5) /hpf Hyaline Casts 7 H (0-2) /lpf Urine Mucus Occasional H (None) /hpf Assessment and Plan Plan: Impression: #1 Acute exacerbation of diastolic congestive heart failure. Preserved left ventricular systolic function with estimated ejection fraction 50-55%. #2 Coronary artery disease with previous myocardial infarction and stent placements 3. #3 Morbid obesity. #4 Obesity/hypoventilation/obstructive sleep apnea syndrome. Been worked up in the outpatient setting. #5 Atrial fibrillation, anticoagulated with Xarelto. #6 Hypothyroidism. #7 Hypertension. #8 Hyperlipidemia. #9 History of respiratory failure with prolonged mechanical ventilatory support requiring tracheostomy insertion and subsequent removal. #10 Left lower extremity DVT, chronic. #11 Chronic venous stasis of the lower extremities bilaterally. #12 Acute on chronic renal failure, baseline approximately 1.5. Today's creatinine 2.01. #13 History of multiple abdominal surgeries. Plan: The patient was seen and evaluated by Dr. Overton. This is more a picture of diastolic congestive heart failure and he is currently on IV Lasix. He'll continue with his current pulmonary medications as well. We will increase his activity as tolerated. He remains on Xarelto for anticoagulation. We may back off on his narcotics based on his excessive daytime sleepiness. If that doesn' t help we may initiate BiPAP in the evenings. He is scheduled to undergo a sleep study in the outpatient setting. We will continue to follow make further recommendations based on his clinical status.
--- NOTE | 2016-08-04 13:37 | PN ---
A 46-year-old gentleman with a known history of CAD, previous PCI and recent onset atrial fibrillation with somewhat uncontrolled rate came into the hospital with a combination of what seems to be exacerbation diastolic heart failure and also had some bronchitis type picture. His atrial fibrillation rate was much faster and Cardizem was added yesterday. At this time, his breathing is better. He does have atrial fibrillation. The rate is better controlled but not quite optimal. I am recommending that we increase the Cardizem to 240 mg daily, given another ( ) of 120 today. We will continue IV Lasix for one more day and check a BNP in the morning. Blood pressure today is 120/70, pulse rate is 100 per minute, irregular. JVD of 1 cm. No carotid bruit. Heart exam reveals S1, S2 with distant heart sounds. Lungs reveal diminished air entry. Fine basal rales bilaterally over bases. Abdomen distended, nontender. Lower extremities reveal ( ) pigmentation and mild edema bilaterally. IMPRESSION: 1. Atrial fibrillation with a moderate ventricular rate. 2. Ischemic heart disease with previous PCI, but fairly well preserved overall systolic function. 3. Morbid obesity. 4. History of bronchial asthma. 5. History of smoking. RECOMMENDATIONS: I am recommending that we increase Cardizem for rate control, continue his other medications, check a BNP in the morning and based on clinical course, I will make further recommendations. Prognosis remains guarded.
[2016-08-04] MEDS: LEVOFLOXACIN 500MG-D5W PMX 500 MG in DEXTROSE/WATER 1 100ML.BAG IVPB SCH (17:17)
[2016-08-04] MEDS: RIVAROXABAN 10 MG TAB PO SCH (17:39)
--- NOTE | 2016-08-04 19:46 | PN ---
DATE OF SERVICE: 08/04/2016 This 46-year-old gentleman who was admitted with shortness of breath, CHF acute exacerbation, also has COPD. The patient being closely monitored at this time. Patient also has possible acute purulent tracheobronchitis. Patient also has abdominal pain, possibly related to constipation. No chest pain or palpitations. No fever. On exam, alert and oriented x3. Pulse 75, blood pressure 126/60, respirations 16, temperature 98.2, pulse ox 94% on 3L. HEENT: Conjunctivae normal. NECK: No jugular venous distension. CARDIOVASCULAR: S1 and S2 muffled. RESPIRATORY: Breath sounds diminished in the bases. A few scattered rhonchi and crackles. ABDOMEN: Soft, obese. Mild diffuse discomfort. No guarding. No mass palpable. LEGS: No edema. NERVOUS SYSTEM: Nonfocal. LABS: Hemoglobin 11.5. Creatinine is 1.70. ASSESSMENT: 1. Shortness of breath, possible congestive heart failure acute exacerbation with acute on chronic diastolic dysfunction ejection fraction 50% to 55%. 2. Acute purulent tracheobronchitis. 3. History of chronic obstructive pulmonary disease, asthma. 4. Anemia, normocytic. 5. Acute on chronic kidney failure, possibly prerenal. 6. Morbid obesity with a body mass index of 36.8. 7. Increased creatinine with chronic kidney disease stage 3. 8. History of atrial fibrillation with fast ventricular rate. 9. History of congestive heart failure. 10. History of deep venous thrombosis. 11. Hypertension. 12. Hyperlipidemia. 13. History of myocardial infarction. 14. History of coronary artery disease and stent. 15. History of multiple abdominal surgeries and abdominal hernias. 16. History of hiatal hernia. 17. History of prolonged respiratory failure. 18. History of chronic anemia. 19. History of deep venous thrombosis of the right lower leg. 20. Anxiety, depression, not otherwise specified. 21. Previous history of methicillin-resistant Staphylococcus aureus. 22. History of bowel resection. 23. History of colostomy reversal. 24. History of nicotine dependence. 25. FULL CODE. RECOMMENDATIONS AND DISCUSSION: Recommend to continue current medications. Continue with monitoring and symptomatic treatment. Otherwise, I would recommend cut down the dose of Lasix. Otherwise, repeat labs, symptomatic treatment for the constipation, abdominal pain. Guarded prognosis because of multiple complex medical issues. Closely follow with Pulmonary and Cardiology. Further recommendations to follow.
[2016-08-04] MEDS: DOCUSATE 100 MG CAP PO SCH (21:20)
[2016-08-04] MEDS: ATORVASTATIN 40 MG TAB PO SCH (21:20)
[2016-08-04] MEDS: SERTRALINE 100 MG TAB PO SCH (21:21)
[2016-08-05] MEDS: LEVOTHYROXINE 137 MCG TAB PO SCH (06:11)
[2016-08-05] MEDS: SYMBICORT 160-4.5 MCG INHALER INHALATION SCH ×2 (07:11→19:54)
[2016-08-05 07:23] LABS: Anisocytosis Slight; Basophils % (A) 1 %; CH 28.3; CHCM 33.3; Eosinophils # (A) 0.2 k/uL (0-0.7); Eosinophils % (A) 4 %; HDW 4.33; HGB 11.5 gm/dL (13.0-17.5); Hypochromasia Slight; Luc # (Auto) 0.22; Luc % (Auto) 4; Lymphocytes # (A) 0.8 k/uL (1.0-4.8); Lymphocytes % (A) 15 %; MCH 27.4 pg (25.0-35.0); MCV 85.7 fL (80.0-100.0); Mean Platelet Volume 7.9; Monocytes # (A) 0.4 k/uL (0-1.0); Monocytes % (A) 8 %; Neutrophils # (A) 3.8 k/uL (1.3-7.7); Neutrophils % (A) 69 %; Poikilocytosis Moderate; WBC 5.5 k/uL (3.8-10.6); WBC (Perox) 5.42
[2016-08-05 07:27] LABS: Calcium 8.8 mg/dL (8.4-10.2); Potassium 4.2 mmol/L (3.5-5.1)
[2016-08-05] MEDS: DOCUSATE 100 MG CAP PO SCH ×2 (08:13→20:24)
[2016-08-05] MEDS: METOPROLOL TARTRATE 50 MG TAB PO SCH ×2 (08:13→20:25)
[2016-08-05] MEDS: FOLIC ACID 1 MG TAB PO SCH ×2 (08:13→20:25)
[2016-08-05] MEDS: LORATADINE 10 MG TAB PO SCH (08:13)
[2016-08-05] MEDS: CLOPIDOGREL 75 MG TAB PO SCH (08:13)
[2016-08-05] MEDS: DILTIAZEM CD 240 MG CAP.ER.24H PO SCH (08:14)
[2016-08-05] MEDS ORDERED: FUROSEMIDE 10 MG/ML 4 ML VIAL IV SCH (09:00)
--- NOTE | 2016-08-05 14:20 | P.PN ---
Subjective Progress note dated 08/05/2016 46-year-old gentleman with a history of COPD morbid obesity DVT atrial fibrillation hyperlipidemia hypertension previous myocardial infarction requiring stents hypothyroidism previous colectomy with colostomy reversal and multiple previous abdominal surgeries. The patient was admitted with a diagnosis of increasing shortness of breath. The patient probably had heart failure as his diagnosis. Also suspected to have sleep apnea syndrome although he never actually been tested. Doing a bit better today. Always very sleepy when you first go into the room. After arouse him. He does arouse O very appropriate. He is feeling a bit better today. Less short of breath. No new complaints today. No fever no chills. No cough. No phlegm production. Objective - Vital Signs Vital signs: Vital Signs Temp 97.4 F L 08/05/16 07:00 Pulse 82 08/05/16 08:00 Resp 18 08/05/16 08:00 BP 126/65 08/05/16 07:00 Pulse Ox 97 08/05/16 07:00 Intake & Output 08/04/16 08/05/16 08/05/16 18:59 06:59 18:59 Intake Total 820 0 240 Output Total 450 450 Balance 820 -450 -210 Weight 186.5 kg Intake: Oral 820 0 240 Output: Urine 450 450 Other: Voiding Method Urinal Urinal Urinal - Exam No acute distress, oriented 3. HEENT examination is grossly unremarkable. Mucous membranes are moist. Neck supple. Full range of motion. No adenopathy or thyromegaly. Cardiovascular examination reveals distant heart sounds. S1-S2 normal. No distinct murmur noted. Lungs reveal some bibasilar crackles. Breath sounds diminished. Slight prolongation. Abdomen is obese. Extremities reveal chronic venous stasis changes. There is hyperpigmentation. There is 1+ edema. - Labs CBC & Chem 7: 08/05/16 06:37 08/05/16 06:37 Labs: Abnormal Lab Results - Last 24 Hours (Table) 08/05/16 08/05/16 Range/Units 06:37 06:37 RBC 4.20 L (4.30-5.90) m/uL Hgb 11.5 L (13.0-17.5) gm/dL Hct 36.0 L (39.0-53.0) % RDW 17.0 H (11.5-15.5) % Lymphocytes # 0.8 L (1.0-4.8) k/uL Carbon Dioxide 34 H (22-30) mmol/L BUN 23 H (9-20) mg/dL Creatinine 1.70 H (0.66-1.25) mg/dL Glucose 126 H (74-99) mg/dL Assessment and Plan (1) Congestive heart failure Status: Acute (2) Acute exacerbation of chronic obstructive airways disease Status: Acute (3) Acute pulmonary edema Status: Acute (4) Diastolic CHF Status: Acute (5) Ischemic heart disease Status: Acute (6) Morbid obesity with BMI of 50.0-59.9, adult Status: Acute (7) ST elevation myocardial infarction (STEMI) Status: Acute Plan: Plan dated 08/05/2016 The patient is doing a bit better. We did back off his narcotics. We will order him some BiPAP. I think she'll benefit from that. He needs an outpatient sleep study. Additional recommendations suggestions are forthcoming. He remains on Xarelto. Time with Patient: Less than 30
[2016-08-05] MEDS: IPRATROPIUM-ALBUTEROL 3 ML NEB INHALATION PRN ×2 (16:08→19:54)
[2016-08-05] MEDS ORDERED: LEVOFLOXACIN 500 MG TAB PO SCH (17:00)
[2016-08-05] MEDS: FUROSEMIDE 20 MG TAB PO SCH (17:03)
[2016-08-05] MEDS: HYDROcodone/APAP 7.5-325MG 1 EACH TAB PO PRN ×2 (17:03→23:22)
[2016-08-05] MEDS: RIVAROXABAN 10 MG TAB PO SCH (17:06)
--- NOTE | 2016-08-05 18:29 | PN ---
Mr. Cerna actually clinically looks better. His vital signs are stable. His oxygen saturation is good. However, he denies any chest discomfort, but he just does not have a good appetite today. Vital signs are stable. Weight has not been recorded accurately. There is JVD of 1 cm, no carotid bruit. S1, S2 heard normally, but distantly. Lungs reveal decent air entry. No rales or rhonchi. Abdomen is soft. Lower extremity reveals no edema or pigmentation noted. Plan is to continue Lasix, but switch it orally. All his other medications will be continued. Oxygen saturation on 1 L is 96%, will gradually increase activity and see how he does. His rate control is much better since we increased his rate control medications.
[2016-08-05] MEDS: ATORVASTATIN 40 MG TAB PO SCH (20:24)
[2016-08-05] MEDS: SERTRALINE 100 MG TAB PO SCH (20:24)
--- NOTE | 2016-08-05 23:38 | PN ---
DATE OF SERVICE: 08/05/2016 This 46-year-old gentleman who was admitted with shortness of breath and congestive heart failure exacerbation, also had possible purulent tracheobronchitis also. The chest x-ray still shows some fluid but the creatinine stabilized at this time, the patient is on diuretics. Cardiology following the patient closely. No fever. Occasional cough. On exam, alert and oriented times three. Pulse 75, blood pressure 126/65, respiratory rate 18. Temperature 97.4, pulse ox 97% on 2 L. HEENT: Conjunctivae normal. NECK: No jugular venous distention. CARDIOVASCULAR: S1, S2 muffled. RESPIRATORY: Breath sounds diminished at the bases. A few scattered rhonchi and crackles. ABDOMEN: Soft, obese, nontender. LEGS: Minimal edema. Nervous system: Diffusely weak. LABS: WBC 5.7, hemoglobin 11.5, creatinine is 1.70. NT-proBNP is 2430. ASSESSMENT: 1. Shortness of breath, possible congestive heart failure, acute exacerbation, with possible acute on chronic diastolic dysfunction, ejection fraction 50 to 55%. 2. Acute purulent tracheobronchitis. 3. History of chronic obstructive pulmonary disease/asthma. 4. Anemia, normocytic. 5. Acute on chronic kidney disease, possibly prerenal. 6. Morbid obesity with body mass index of 36.8. 7. Increased creatinine with chronic kidney disease Stage III. 8. History of atrial fibrillation with fast ventricular rate. 9. History of congestive heart failure. 10. History of deep venous thrombosis. 11. Hypertension. 12. Hyperlipidemia. 13. History of myocardial infarction. 14. History of coronary artery disease and stent. 15. History of multiple abdominal surgeries and abdominal hernias. 16. History of hiatal hernia. 17. History of prolonged respiratory failure. 18. Chronic anemia. 19. History of deep venous thrombosis of the right lower leg. 20. Anxiety, depression, not otherwise specified. 21. Previous history of Methicillin-resistant Staph aureus. 22. History of bowel resection. 23. History of colostomy reversal. 24. History of nicotine dependence. 25. FULL CODE. RECOMMENDATIONS AND DISCUSSION: In this 46-year-old gentleman who presented with multiple complex medical issues, we will monitor the patient closely. Continue the current medications and continue symptomatic treatment. Otherwise, at this time I recommend to continue with current dose of diuretics and antibiotics and monitor closely. Also recommend PT, OT evaluation and possible ECF rehab also. Further recommendations to follow.
[2016-08-06] MEDS: LEVOTHYROXINE 137 MCG TAB PO SCH (06:33)
[2016-08-06 08:08] LABS: Anisocytosis Slight; Basophils % (A) 1 %; CH 28.2; CHCM 33.3; Eosinophils # (A) 0.2 k/uL (0-0.7); Eosinophils % (A) 4 %; HCT 36.9 % (39.0-53.0); HDW 4.37; HGB 11.8 gm/dL (13.0-17.5); Hypochromasia Slight; Luc # (Auto) 0.13; Luc % (Auto) 2; Lymphocytes # (A) 1.2 k/uL (1.0-4.8); Lymphocytes % (A) 23 %; MCH 27.2 pg (25.0-35.0); MCHC 31.8 g/dL (31.0-37.0); MCV 85.3 fL (80.0-100.0); Mean Platelet Volume 7.9; Monocytes # (A) 0.3 k/uL (0-1.0); Monocytes % (A) 6 %; Neutrophils # (A) 3.3 k/uL (1.3-7.7); Neutrophils % (A) 64 %; Poikilocytosis Moderate; RBC 4.33 m/uL (4.30-5.90); RDW 16.9 % (11.5-15.5); WBC 5.2 k/uL (3.8-10.6); WBC (Perox) 5.19
[2016-08-06 08:17] LABS: Calcium 8.9 mg/dL (8.4-10.2); Potassium 3.6 mmol/L (3.5-5.1)
[2016-08-06] MEDS: METOPROLOL TARTRATE 50 MG TAB PO SCH (09:03)
[2016-08-06] MEDS: CLOPIDOGREL 75 MG TAB PO SCH (09:04)
[2016-08-06] MEDS: FOLIC ACID 1 MG TAB PO SCH (09:04)
[2016-08-06] MEDS: DOCUSATE 100 MG CAP PO SCH (09:04)
[2016-08-06] MEDS: FUROSEMIDE 20 MG TAB PO SCH ×2 (09:04→17:32)
[2016-08-06] MEDS: DILTIAZEM CD 240 MG CAP.ER.24H PO SCH (09:04)
[2016-08-06] MEDS: LORATADINE 10 MG TAB PO SCH (09:04)
[2016-08-06] MEDS: IPRATROPIUM-ALBUTEROL 3 ML NEB INHALATION PRN (12:57)
[2016-08-06] MEDS: SYMBICORT 160-4.5 MCG INHALER INHALATION SCH (12:57)
--- NOTE | 2016-08-06 15:57 | DS ---
DATE OF ADMISSION: 08/01/2016 DATE OF DISCHARGE: FINAL DIAGNOSES: 1. Shortness of breath with possible congestive heart failure, acute exacerbation, with acute on chronic diastolic dysfunction, ejection 50 to 55%. 2. Acute purulent tracheobronchitis. 3. History of chronic obstructive pulmonary disease/asthma. 4. Anemia, normocytic. 5. Acute on chronic kidney disease, possible prerenal renal failure. 6. Morbid obesity with a body mass index of 36.8. 7. Increased creatinine with chronic kidney disease Stage III. 8. History of atrial fibrillation with fast ventricular rate. 9. History of congestive heart failure. 10. History of deep venous thrombosis. 11. Hypertension. 12. Hyperlipidemia. 13. History of myocardial infarction. 14. History of coronary artery disease and stent. 15. Multiple abdominal surgeries and abdominal hernias. 16. History hiatal hernia. 17. History of prolonged respiratory failure. 18. Chronic anemia. 19. History of deep venous thrombosis of the right leg. 20. Anxiety, depression, not otherwise. 21. Previous history of methicillin-resistant Staphylococcus aureus. 22. History of bowel resection. 23. History of colostomy reversal. 24. History of nicotine dependence. 25. FULL CODE. DISCHARGE DISPOSITION: The patient will be discharged in stable condition with guarded prognosis, total time taken 35 minutes. HISTORY OF PRESENT ILLNESS: This 46-year-old gentleman with a past medical history of multiple medical problems was admitted with congestive heart failure acute exacerbation, the patient also has chronic obstructive pulmonary disease and purulent tracheobronchitis, treated with diuretics, and as well as antibiotics. Patient improved significantly. Creatinine stabilized at 1.65. The patient seen by multiple consultants. On examination, vital signs stable. CARDIOVASCULAR: S1, S2 muffled. Respiratory : Breath sounds diminished at the bases. A few scattered rhonchi. ABDOMEN: Soft, obese. Legs: No edema. No swelling. CENTRAL NERVOUS SYSTEM: No focal deficits. LABS: Hemoglobin 11.8. Otherwise creatinine as mentioned earlier. DISCHARGE ADVICE AND MEDICATIONS: 1. Diet is cardiac, no added salt. 2. Activity limited until follow-up. 3. Fluid restriction, 1500 mL per 24 hours. 4. Follow up with Dr. Ferrer in one to two days. 5. Follow-up with cardiology as recommended. 6. Medications Tylenol 650 q.6 p.r.n. 7. Lipitor 40 mg q.h.s. 8. Symbicort 2 puffs b.i.d. 9. Plavix 75 mg p.o. daily. 10. Cardizem CD 240 mg p.o. daily. 11. Colace 100 milligrams p.o. b.i.d. p.r.n. 12. Folic acid 1 mg p.o. b.i.d. 13. Lasix 60 mg p.o. b.i.d. Please note changed dose. 14. Brickeys 7.5 mg q.6 p.r.n. 15. Albuterol Atrovent updrafts q.i.d. and p.r.n. 16. Levaquin 500 mg p.o. daily for 5 days. 17. Synthroid 137 micrograms p.o. q.a.m. 18. Claritin 10 mg p.o. daily. 19. Lopressor 100 mg p.o. b.i.d. 20. Nitrostat 0.4 sublingual p.r.n. 21. Xarelto 20 mg with supper. 22. Zoloft 100 mg q.h.s. 23. Norvasc 5 mg p.o. daily. Once again, the patient will be discharged in stable condition with guarded prognosis.
[2016-08-06 15:58] VITALS: BP 115/69; PULSE 82; RESP 18; TEMP 98.1
--- NOTE | 2016-08-06 17:58 | P.PN ---
Subjective This is a pleasant 46-year-old gentleman with a known history of chronic obstructive pulmonary disease, morbid obesity, DVT, atrial fibrillation anticoagulated on Xarelto, hyperlipidemia, hypertension, previous myocardial infarction and stent placements 3, hypothyroidism, colectomy with colostomy and subsequent reversal, multiple abdominal surgeries for hiatal hernia that was complicated by prolonged hospitalization and prolonged ventilatory dependent respiratory failure requiring tracheostomy tube insertion and subsequent removal. He's had multiple admissions for dyspnea, multifactorial with COPD exacerbations, recurrent tracheobronchitis, diastolic congestive heart failure, preserved LV with an EF between 50-55%. He was just discharged on 07/10/2016. He did see Dr. Corona in the sleep Center and was set up for a sleep study which had not been conducted. He suspects he has obstructive sleep apnea, obesity/hypoventilation syndrome on top of his COPD/asthma. He was readmitted here again on 08/01/2016 with complaints of increasing shortness of breath. He is fairly comfortable at rest but becomes quite dyspneic on minimal exertion. He is having midsternal chest pain that radiates to the left side each time he takes a deep breath. No fever, chills or night sweats. Troponins are negative 3. ProBNP 4990. His chest x-ray revealed evidence of mild congestive heart failure. There is small posterior pleural effusions as well as. Doppler of the lower extremities reveals evidence of a chronic DVT in the left lower extremity. No leukocytosis. He has remained afebrile. He is maintaining O2 saturations in the mid 90s on 2 L/m per nasal cannula. Hemodynamically stable. He is seen again today 08/06/2016 in follow-up. He is awake and alert in no acute distress. He is afebrile. No leukocytosis. He is maintaining good O2 saturations in the mid 90s on room air. He is anxious to go home. Objective - Vital Signs Vital signs: Vital Signs Temp 98.1 F 08/06/16 15:00 Pulse 82 08/06/16 15:00 Resp 18 08/06/16 15:00 BP 115/69 08/06/16 15:00 Pulse Ox 95 08/06/16 15:00 Intake & Output 08/05/16 08/06/16 08/06/16 18:59 06:59 18:59 Intake Total 480 810 360 Output Total 450 300 Balance 30 510 360 Weight 184.385 kg 185 kg Intake: Oral 480 810 360 Output: Urine 450 300 Other: Voiding Method Urinal Urinal Urinal # Voids 2 2 - Exam GENERAL EXAM: Morbidly obese. Alert, comfortable in no apparent distress. HEAD: Normocephalic. EYES: Normal reaction of pupils, equal size. NOSE: Clear with pink turbinates. THROAT: There is crowding the posterior pharynx. No erythema or exudates. NECK: Short. No masses, no JVD. CHEST: No chest wall deformity. LUNGS: Equal air entry with no crackles, wheeze, rhonchi or dullness. CVS: S1 and S2 normal with no audible murmurs, irregular rhythm. ABDOMEN: Obese, normal bowel sounds, no guarding or rigidity. SPINE: No scoliosis or deformity SKIN: Discoloration and changes of chronic venous stasis of the lower extremities. CENTRAL NERVOUS SYSTEM: No focal deficits, tone is normal in all 4 extremities. Sturman is: There is 1-2+ lower extremity peripheral edema. No clubbing, no cyanosis. Peripheral pulses are intact. - Labs CBC & Chem 7: 08/06/16 07:39 08/06/16 07:39 Labs: Abnormal Lab Results - Last 24 Hours (Table) 08/06/16 08/06/16 Range/Units 07:39 07:39 Hgb 11.8 L (13.0-17.5) gm/dL Hct 36.9 L (39.0-53.0) % RDW 16.9 H (11.5-15.5) % Carbon Dioxide 31 H (22-30) mmol/L BUN 23 H (9-20) mg/dL Creatinine 1.65 H (0.66-1.25) mg/dL Glucose 106 H (74-99) mg/dL Assessment and Plan Plan: Impression: #1 Acute exacerbation of diastolic congestive heart failure. Preserved left ventricular systolic function with estimated ejection fraction 50-55%. #2 Coronary artery disease with previous myocardial infarction and stent placements 3. #3 Morbid obesity. #4 Obesity/hypoventilation/obstructive sleep apnea syndrome. Been worked up in the outpatient setting. #5 Atrial fibrillation, anticoagulated with Xarelto. #6 Hypothyroidism. #7 Hypertension. #8 Hyperlipidemia. #9 History of respiratory failure with prolonged mechanical ventilatory support requiring tracheostomy insertion and subsequent removal. #10 Left lower extremity DVT, chronic. #11 Chronic venous stasis of the lower extremities bilaterally. #12 Acute on chronic renal failure, baseline approximately 1.5. Today's creatinine 2.01. #13 History of multiple abdominal surgeries. Plan: The patient was seen and evaluated by Dr. Corona. He is cleared for discharge from the pulmonary standpoint. We'll continue his current medications including Symbicort, DuoNeb inhalations, and complete his course of antibiotics. He is encouraged to follow-up in our office in 1-2 weeks' time. He also was to be scheduled for a sleep study with Dr. Corona. He is encouraged to call sooner with any recurrence of symptoms or other questions or concerns.
== END 2016-08-06 18:15 | disposition home health service (06) | DRG 291 ==
LOC: EC 13:34 → 4MS4W 17:11 → 5MS5E 18:05 → 5ONC 08-05 12:25
PROVIDERS: ADMIT Hospitalist; ATTEND Hospitalist
DX: I13.0 Hypertensive heart and chronic kidney disease with heart failure and stage 1 through stage 4 chronic kidney disease, or unspecified chronic kidney disease (principal); I50.33 Acute on chronic diastolic (congestive) heart failure; N17.9 Acute kidney failure, unspecified; N18.3 Chronic kidney disease, stage 3 (moderate); J44.1 Chronic obstructive pulmonary disease with (acute) exacerbation; I82.5Z2 Chronic embolism and thrombosis of unspecified deep veins of left distal lower extremity; Z68.43 Body mass index [BMI] 50.0-59.9, adult; E66.01 Morbid (severe) obesity due to excess calories; E03.9 Hypothyroidism, unspecified; D64.9 Anemia, unspecified; E78.5 Hyperlipidemia, unspecified; F32.9 Major depressive disorder, single episode, unspecified; F41.9 Anxiety disorder, unspecified; G47.33 Obstructive sleep apnea (adult) (pediatric); I25.10 Atherosclerotic heart disease of native coronary artery without angina pectoris; I25.2 Old myocardial infarction; I48.0 Paroxysmal atrial fibrillation; I87.8 Other specified disorders of veins; J45.909 Unspecified asthma, uncomplicated; Z79.02 Long term (current) use of antithrombotics/antiplatelets; Z86.14 Personal history of Methicillin resistant Staphylococcus aureus infection; Z87.891 Personal history of nicotine dependence; Z95.5 Presence of coronary angioplasty implant and graft; Z79.899 Other long term (current) drug therapy; Z88.1 Allergy status to other antibiotic agents; Z88.0 Allergy status to penicillin
CPT/HCPCS: 36415; 71010; 71020; 80048; 80053; 81001; 82550; 82553; 83605; 83735; 83880; 84484; 85025; 85379; 85610; 85730; 87040; 93005; 94640; 94760; 96361; 96374; 99285

== ENCOUNTER 2016-09-02 17:46 | Inpatient (IN) | payer OTHER ==
[2016-09-02] MEDS ORDERED: IPRATROPIUM 0.5 MG/2.5 ML NEBU INHALATION STA (18:19)
[2016-09-02] MEDS ORDERED: AZITHROMYCIN 500 MG in SODIUM CHLORIDE 0.9% 250 ML IVPB STA (18:19)
[2016-09-02] MEDS ORDERED: FUROSEMIDE 10 MG/ML 4 ML VIAL IV STA (18:19)
[2016-09-02] MEDS ORDERED: ALBUTEROL NEBULIZED 2.5 MG/3 ML INHALATION STA (18:19)
[2016-09-02] MEDS ORDERED: methylPREDNISolone SOD SUCCI 125 MG/2 ML VIAL IV STA (18:19)
[2016-09-02] MEDS ORDERED: SODIUM CHLORIDE 0.9% 1,000 ML IV STA (18:19)
--- NOTE | 2016-09-02 18:21 | ED ---
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 Patient has increased cough and congestion coughing up sputum even blood in his sputum. Patient has significant medical history of renal disease CHF and COPD. Patient's continued smoking and denies fever. Patient denies any significant nausea vomiting or diarrhea. Continue all medications as prescribed, resocialization and a month ago for similar issues that he is experiencing at this time. No chest pain. Patient does admit to significant waking about 5-10 pounds - Related Data Home Medications Medication Instructions Recorded Confirmed Loratadine [Claritin] 10 mg PO DAILY 10/19/13 09/02/16 Sertraline [Zoloft] 100 mg PO HS 10/19/13 09/02/16 Atorvastatin [Lipitor] 80 mg PO HS 03/25/15 09/02/16 Folic Acid 1 mg PO BID 03/25/15 09/02/16 Levothyroxine Sodium [Synthroid] 137 mcg PO QAM 03/25/15 09/02/16 Budesonide/Formoterol Fumarate 2 puff INHALATION RT-BID 08/01/16 09/02/16 [Symbicort 160-4.5 Mcg Inhaler] Metoprolol Tartrate [Lopressor] 100 mg PO BID 08/01/16 09/02/16 amLODIPine [Norvasc] 5 mg PO DAILY 08/01/16 09/02/16 Furosemide [Lasix] 60 mg PO TID 09/02/16 09/02/16 Previous Rx's Medication Instructions Recorded Clopidogrel [Plavix] 75 mg PO DAILY #30 tablet 12/03/14 Nitroglycerin Sl Tabs [Nitrostat] 0.4 mg SUBLINGUAL Q5M PRN #30 tab 12/03/14 Rivaroxaban [Xarelto] 20 mg PO W/SUPPER #30 tab 06/14/16 Diltiazem Cd [Cardizem CD] 240 mg PO DAILY #30 cap.er.24h 08/06/16 Docusate [Colace] 100 mg PO BID PRN #60 cap 08/06/16 Ipratropium-Albuterol Nebulize 3 ml INHALATION RT-QID 30 Days 08/06/16 [Duoneb 0.5 mg-3 mg/3 ml Soln] Allergies Allergy/AdvReac Type Severity Reaction Status Date / Time adhesive Allergy "PLASTIC Verified 09/02/16 18:30 TAPE PEELS SKIN,PAPER TAPE IS OK" Cephalosporins Allergy Unknown Verified 09/02/16 18:30 linezolid Allergy Unknown Verified 09/02/16 18:30 penicillin G Allergy Rash/Hives Verified 09/02/16 18:30 Review of Systems ROS Statement: Those systems with pertinent positive or pertinent negative responses have been documented in the HPI. ROS Other: All systems not noted in ROS Statement are negative. Past Medical History Past Medical History: Atrial Fibrillation, Asthma, Chest Pain / Angina, Heart Failure, COPD, Deep Vein Thrombosis (DVT), Hyperlipidemia, Hypertension, Myocardial Infarction ([place]), Skin Disorder, Thyroid Disorder, Vascular Disorder Additional Past Medical History / Comment(s): Morbidly obese, COPD, bronchial asthma, coronary artery disease, multiple abdominal surgeries for a hiatal hernia that was complicated by prolonged hospitalization and prolonged ventilator dependent respiratory failure requiring a tracheostomy tube insertion , seasonal by medical ALLERGIES, diverticular disease, chronic anemia, previous history of DVT of the right lower extremity and current Doppler is showing a chronic clot in his right leg, eczema, hypothyroid, chronic anxiety/depression. Last Myocardial Infarction Date:: History of Any Multi-Drug Resistant Organisms: MRSA Date of last positivie culture/infection: 02/01/15 MDRO Source:: Abdomen Past Surgical History: Bowel Resection, Heart Catheterization With Stent, Hernia Repair Additional Past Surgical History / Comment(s): colonoscopy, heart stents x 3, heart cath with stent to circ, stomach mass removed with colostomy and colostomy reversal (removed a foot of pts colon)-2003, hernia repair with skin grafts and 2 fistula repairs (hospitalized for 1 year @[facility])-2010 Past Anesthesia/Blood Transfusion Reactions: Motion Sickness Additional Past Anesthesia/Blood Transfusion Reaction / Comment(s): FATHER RECEIVED HEPATITIS FROM BLOOD TRANSFUSION Date of Last Stent Placement:: 03/28/2015 Past Psychological History: Depression Smoking Status: Former smoker Past Alcohol Use History: None Reported Additional Past Alcohol Use History / Comment(s): STARTED SMOKING 1997 Past Drug Use History: None Reported - Past Family History Mother Family Medical History: Osteoarthritis (OA), Pneumonia Additional Family Medical History / Comment(s): osteoporosis. arthroscopy surgery for knee Father Family Medical History: Liver Disease, Renal Disease Additional Family Medical History / Comment(s): triple heart bypass. liver transplant. aortic aneursym General Exam Limitations: no limitations General appearance: alert, in no apparent distress, obese Head exam: Present: atraumatic, normocephalic, normal inspection Eye exam: Present: normal appearance, PERRL, EOMI. Absent: scleral icterus, conjunctival injection, periorbital swelling ENT exam: Present: normal exam, mucous membranes moist Neck exam: Present: normal inspection. Absent: tenderness, meningismus, lymphadenopathy Respiratory exam: Present: normal lung sounds bilaterally, respiratory distress , wheezes, accessory muscle use, decreased breath sounds, prolonged expiratory. Absent: rales, rhonchi, stridor Cardiovascular Exam: Present: regular rate, normal rhythm, normal heart sounds. Absent: systolic murmur, diastolic murmur, rubs, gallop, clicks GI/Abdominal exam: Present: soft, normal bowel sounds. Absent: distended, tenderness, guarding, rebound, rigid Extremities exam: Present: normal inspection, full ROM, normal capillary refill. Absent: tenderness, pedal edema, joint swelling, calf tenderness Back exam: Present: normal inspection Neurological exam: Present: alert, oriented X3, CN II-XII intact Psychiatric exam: Present: normal affect, normal mood Skin exam: Present: warm, dry, intact, normal color. Absent: rash Course Vital Signs 09/02/16 09/02/16 09/02/16 17:57 18:48 18:55 Temperature 97.4 F L Pulse Rate 85 90 101 H Respiratory 22 20 Rate Blood Pressure 127/55 111/61 O2 Sat by Pulse 97 100 Oximetry 09/02/16 19:07 Temperature Pulse Rate 77 Respiratory Rate Blood Pressure O2 Sat by Pulse Oximetry - Reevaluation(s) Reevaluation #1: 09/02/16 19:29 Patient is taking Lasix at home refusing Lasix at this time Reevaluation #2: 09/02/16 19:29 Patient does have improvement after prolonged breathing treatment EKG Findings - EKG Comments: EKG Findings:: EKG shows a flutter rate of 73, W[place] 94, QRS 434 Medical Decision Making - Medical Decision Making 46 male ER for evaluation of shortness of breath weakness. Patient is positive exacerbation of concurrent COPD and CHF among weight gain, patient will be admitted for further evaluation and treatment by cardiology - Lab Data Result diagrams: 09/02/16 18:45 09/02/16 18:45 Lab Results 09/02/16 09/02/16 09/02/16 Range/Units 18:45 18:45 18:45 WBC 5.8 (3.8-10.6) k/uL RBC 4.34 (4.30-5.90) m/uL Hgb 12.1 L (13.0-17.5) gm/dL Hct 37.0 L (39.0-53.0) % MCV 85.4 (80.0-100.0) fL MCH 27.9 (25.0-35.0) pg MCHC 32.6 (31.0-37.0) g/dL RDW 19.0 H (11.5-15.5) % Plt Count 178 (150-450) k/uL Neutrophils % 72 % Lymphocytes % 15 % Monocytes % 5 % Eosinophils % 5 % Basophils % 1 % Neutrophils # 4.1 (1.3-7.7) k/uL Lymphocytes # 0.9 L (1.0-4.8) k/uL Monocytes # 0.3 (0-1.0) k/uL Eosinophils # 0.3 (0-0.7) k/uL Basophils # 0.0 (0-0.2) k/uL Hypochromasia Slight Poikilocytosis Moderate Anisocytosis Slight PT (9.0-12.0) sec INR (<1.1) APTT (22.0-30.0) sec Sodium 140 (137-145) mmol/L Potassium 4.0 (3.5-5.1) mmol/L Chloride 100 (98-107) mmol/L Carbon Dioxide 27 (22-30) mmol/L Anion Gap 13 mmol/L BUN 26 H (9-20) mg/dL Creatinine 1.53 H (0.66-1.25) mg/dL Est GFR (MDRD) Af Amer 60 (>60 ml/min/1.73 sqM) Est GFR (MDRD) Non-Af 49 (>60 ml/min/1.73 sqM) Glucose 153 H (74-99) mg/dL Calcium 9.4 (8.4-10.2) mg/dL Magnesium 2.1 (1.6-2.3) mg/dL Total Bilirubin 1.2 (0.2-1.3) mg/dL AST 23 (17-59) U/L ALT 22 (21-72) U/L Alkaline Phosphatase 66 (38-126) U/L Total Creatine Kinase 39 L (55-170) U/L CK-MB (CK-2) 0.4 (0.0-2.4) ng/mL CK-MB (CK-2) Rel Index 1.0 Troponin I <0.012 (0.000-0.034) ng/mL NT-Pro-B Natriuret Pep pg/mL Total Protein 7.4 (6.3-8.2) g/dL Albumin 3.9 (3.5-5.0) g/dL 09/02/16 09/02/16 Range/Units 18:45 18:45 WBC (3.8-10.6) k/uL RBC (4.30-5.90) m/uL Hgb (13.0-17.5) gm/dL Hct (39.0-53.0) % MCV (80.0-100.0) fL MCH (25.0-35.0) pg MCHC (31.0-37.0) g/dL RDW (11.5-15.5) % Plt Count (150-450) k/uL Neutrophils % % Lymphocytes % % Monocytes % % Eosinophils % % Basophils % % Neutrophils # (1.3-7.7) k/uL Lymphocytes # (1.0-4.8) k/uL Monocytes # (0-1.0) k/uL Eosinophils # (0-0.7) k/uL Basophils # (0-0.2) k/uL Hypochromasia Poikilocytosis Anisocytosis PT 11.4 (9.0-12.0) sec INR 1.1 (<1.1) APTT 26.1 (22.0-30.0) sec Sodium (137-145) mmol/L Potassium (3.5-5.1) mmol/L Chloride (98-107) mmol/L Carbon Dioxide (22-30) mmol/L Anion Gap mmol/L BUN (9-20) mg/dL Creatinine (0.66-1.25) mg/dL Est GFR (MDRD) Af Amer (>60 ml/min/1.73 sqM) Est GFR (MDRD) Non-Af (>60 ml/min/1.73 sqM) Glucose (74-99) mg/dL Calcium (8.4-10.2) mg/dL Magnesium (1.6-2.3) mg/dL Total Bilirubin (0.2-1.3) mg/dL AST (17-59) U/L ALT (21-72) U/L Alkaline Phosphatase (38-126) U/L Total Creatine Kinase (55-170) U/L CK-MB (CK-2) (0.0-2.4) ng/mL CK-MB (CK-2) Rel Index Troponin I (0.000-0.034) ng/mL NT-Pro-B Natriuret Pep 3470 pg/mL Total Protein (6.3-8.2) g/dL Albumin (3.5-5.0) g/dL - Radiology Data Radiology results: report reviewed (Chest x-ray is negative for acute disease), image reviewed Disposition Clinical Impression: COPD exacerbation, Acute pulmonary edema, Acute exacerbation of chronic obstructive airways disease, Diastolic CHF, Atrial fibrillation Disposition: ADMITTED IP TO THIS HOSP Condition: Good Referrals: Aguilar Bautista DO [Primary Care Provider] - 1-2 days
[2016-09-02] MEDS: IPRATROPIUM-ALBUTEROL 3 ML NEB INHALATION SCH ×2 (18:49→22:57)
[2016-09-02 18:57] LABS: Anisocytosis Slight; Basophils % (A) 1 %; CH 28.3; CHCM 33.3; Eosinophils # (A) 0.3 k/uL (0-0.7); Eosinophils % (A) 5 %; HDW 4.14; HGB 12.1 gm/dL (13.0-17.5); Hypochromasia Slight; Luc # (Auto) 0.16; Luc % (Auto) 3; Lymphocytes # (A) 0.9 k/uL (1.0-4.8); Lymphocytes % (A) 15 %; MCH 27.9 pg (25.0-35.0); MCHC 32.6 g/dL (31.0-37.0); MCV 85.4 fL (80.0-100.0); Mean Platelet Volume 7.9; Monocytes # (A) 0.3 k/uL (0-1.0); Monocytes % (A) 5 %; Neutrophils # (A) 4.1 k/uL (1.3-7.7); Neutrophils % (A) 72 %; Poikilocytosis Moderate; RBC 4.34 m/uL (4.30-5.90); WBC 5.8 k/uL (3.8-10.6)
[2016-09-02 19:05] LABS: INR 1.1 (<1.1)
[2016-09-02 19:06] LABS: Calcium 9.4 mg/dL (8.4-10.2); Magnesium 2.1 mg/dL (1.6-2.3); Partial Thromboplastin Time 26.1 sec (22.0-30.0); Prothrombin Time 11.4 sec (9.0-12.0); Total Bilirubin 1.2 mg/dL (0.2-1.3); Total Protein 7.4 g/dL (6.3-8.2)
[2016-09-02 19:10] LABS: Creatine Kinase 39 U/L (55-170)
[2016-09-02] MEDS ORDERED: MORPHINE SULFATE 4 MG/ML SYRINGE IVP STA (19:14)
[2016-09-02 19:23] LABS: Creatine Kinase MB 0.4 ng/mL (0.0-2.4); Troponin I <0.012 ng/mL (0.000-0.034)
--- NOTE | 2016-09-02 20:40 | XR ---
EXAMINATION TYPE: XR chest 2V DATE OF EXAM: 09/02/2016 8:21 PM COMPARISON: Chest x-ray August 04, 2016 HISTORY: History of CHF, COPD, and morbid obesity presents with difficulty in breathing. TECHNIQUE: Frontal and lateral views of the chest are obtained. FINDINGS: There is chronic parenchymal change without suspicious focal air space opacity, pleural ef fusion, or pneumothorax seen. The cardiac silhouette size remains enlarged with small bilateral pleu ral effusions. The osseous structures are intact. IMPRESSION: Suspect CHF exacerbation as there is cardiomegaly with small bilateral pleural effusions , component of interstitial edema is difficult to exclude. Clinical correlation advised.
[2016-09-02] MEDS: MORPHINE SULFATE 2 MG/ML SYRINGE IVP PRN (22:33)
[2016-09-03] MEDS: MORPHINE SULFATE 2 MG/ML SYRINGE IVP PRN ×5 (00:59→19:03)
[2016-09-03] MEDS: methylPREDNISolone SOD SUCCI 125 MG/2 ML VIAL IV SCH ×5 (04:12→23:16)
[2016-09-03 06:58] LABS: Glucose,Whole Blood 203 mg/dL (75-99)
[2016-09-03] MEDS: IPRATROPIUM-ALBUTEROL 3 ML NEB INHALATION SCH ×4 (07:19→20:54)
[2016-09-03 08:59] LABS: Hemoglobin A1C 5.3 % (4.2-6.1)
[2016-09-03] MEDS ORDERED: FUROSEMIDE 40 MG TAB PO SCH (09:00)
[2016-09-03] MEDS ORDERED: ENOXAPARIN 40 MG/0.4 ML SYRINGE SQ SCH (09:00)
[2016-09-03] MEDS ORDERED: NITROGLYCERIN SL TABS 0.4 MG TAB SUBLINGUAL PRN (09:05)
--- NOTE | 2016-09-03 09:22 | CONS ---
DATE OF CONSULTATION: CHIEF COMPLAINT: Shortness of breath. Maximo Cerna is a 46-year-old gentleman with history of chronic atrial fibrillation and COPD, morbid obesity, chronic renal insufficiency and chronic diastolic heart failure who presented to hospital with symptoms of weight gain, leg edema and shortness of breath. Symptoms were mild to moderate intensity, came on at rest and got progressively worse. His chest x-ray showed evidence of pulmonary congestion. BNP is elevated. He had an echocardiogram done within the last 6 months that showed normal LV systolic function. The patient had acute exacerbation of chronic diastolic heart failure. He is on 180 mg of Lasix on a regular basis but Lasix is on hold because of renal insufficiency. Past medical history is significant for hypertension, chronic atrial fibrillation, COPD, morbid obesity, dyslipidemia. Medications at home included: 1. Norvasc 5 daily. 2. Zoloft. 3. Xarelto 20 daily. 4. Nitrostat. 5. Lopressor 100 b.i.d. 6. Claritin. 7. Synthroid. 8. DuoNeb. 9. Lasix 60 t.i.d. 10. Folic acid. 11. Colace. 12. Cardizem CD. 13. Plavix. 14. Symbicort. 15. Lipitor. PATIENT HAS MULTIPLE DRUG ALLERGIES INCLUDING CEPHALOSPORINS LINEZOLID, PENICILLIN. FAMILY HISTORY: Negative for premature coronary artery disease. SOCIAL HISTORY: Negative for current smoking, ETOH abuse, or drug abuse. REVIEW OF SYSTEMS: HEENT: Unremarkable. CARDIAC: As described above. RESPIRATORY: As described above. GI: Negative. GENITOURINARY: As described above. PSYCHOSOCIAL: Negative. ENDOCRINE: Negative. Dermatology: Significant for changes of the leg. CONSTITUTIONAL: Negative. The rest of the system review is not relevant. On exam, heart rate is 106 beats per minute, blood pressure is 107/58, respirations 18. Chest exam reveals diminished air entry at the bases. I do not hear any crackles or rhonchi. Heart exam reveals first and second heart sounds, irregular rhythm. ABDOMEN: Soft. Exam of extremities reveals bilateral chronic stasis changes with mild edema. Labs show a BNP of 3470, troponin is normal. Potassium is 4. Hemoglobin is 12.1. EKG shows atrial flutter with nonspecific ST-T wave changes. ASSESSMENT: 1. Acute exacerbation of chronic diastolic heart failure. 2. Hypertensive heart disease. 3. Chronic atrial flutter. 4. Morbid obesity. 5. Chronic obstructive pulmonary disease. 6. Chronic renal insufficiency. PLAN: We will resume the diuretics. Nephrology had been consulted. I will continue with the current aggressive medical therapy. He can hopefully be discharged home over the next 24 to 48 hours.
[2016-09-03] MEDS: amLODIPine 5 MG TAB PO SCH (09:32)
[2016-09-03] MEDS: CLOPIDOGREL 75 MG TAB PO SCH (09:32)
[2016-09-03] MEDS: METOPROLOL TARTRATE 50 MG TAB PO SCH ×2 (09:32→20:02)
[2016-09-03] MEDS: INSULIN LISPRO (humaLOG) 300 UNIT/3 ML VIAL SQ SCH ×4 (09:33→21:42)
[2016-09-03] MEDS: LEVOTHYROXINE 137 MCG TAB PO SCH (09:33)
[2016-09-03] MEDS: LORATADINE 10 MG TAB PO SCH (09:33)
[2016-09-03] MEDS: DILTIAZEM CD 240 MG CAP.ER.24H PO SCH (09:33)
--- NOTE | 2016-09-03 10:45 | P.NPCON ---
History of Present Illness - Reason for Consult chronic renal failure - History of Present Illness Reason for consultation: Chronic kidney disease History of present illness: Patient is a 46-year-old male seen in renal consultation for chronic kidney disease. Patient appears to have chronic kidney disease stage III secondary to nephrosclerosis and cardiorenal syndrome with baseline creatinine near 1.5. His GFR is currently at baseline. He presented to the hospital with worsening dyspnea as well as a 5 pound weight gain over the last 1 week. He initially had a productive cough with some blood in the sputum as well. However he states he has no cough at this time and hasn't noted any hemoptysis. He denies any vomiting or diarrhea. His appetite has been good. He does admit to drinking about 3 L of fluids every day and does eat a high sodium diet as well. He admits to good urine output. Denies any hematuria or dysuria. He denies use of NSAIDs at home. Denies any family history of renal disease. He is currently maintained on Lasix 40 mg 3 times daily. No other complaints at this time. He does not follow with a sterile instrument technician as an outpatient. Vital signs are stable. General: The patient appeared well nourished and normally developed. HEENT: Head exam is unremarkable. Neck is without jugular venous distension. LUNGS: Lungs are clear to auscultation and percussion. Breath sounds decreased. HEART: Rate and Rhythm are regular. First and second heart sounds normal. No murmurs, rubs or gallops. ABDOMEN: Abdominal exam reveals normal bowel sounds. Non-tender and non- distended. No evidence of peritonitis. EXTREMITITES: 1+ edema. Chronic venous stasis changes. Past Medical History Past Medical History: Atrial Fibrillation, Asthma, Chest Pain / Angina, Heart Failure, COPD, Deep Vein Thrombosis (DVT), Hyperlipidemia, Hypertension, Myocardial Infarction ([place]), Skin Disorder, Thyroid Disorder, Vascular Disorder Additional Past Medical History / Comment(s): Morbidly obese, COPD, bronchial asthma, coronary artery disease, multiple abdominal surgeries for a hiatal hernia that was complicated by prolonged hospitalization and prolonged ventilator dependent respiratory failure requiring a tracheostomy tube insertion , seasonal by medical ALLERGIES, diverticular disease, chronic anemia, previous history of DVT of the right lower extremity and current Doppler is showing a chronic clot in his right leg, eczema, hypothyroid, chronic anxiety/depression. Last Myocardial Infarction Date:: History of Any Multi-Drug Resistant Organisms: MRSA Date of last positivie culture/infection: 02/01/15 MDRO Source:: Abdomen Past Surgical History: Bowel Resection, Heart Catheterization With Stent, Hernia Repair Additional Past Surgical History / Comment(s): colonoscopy, heart stents x 3, heart cath with stent to circ, stomach mass removed with colostomy and colostomy reversal (removed a foot of pts colon)-2003, hernia repair with skin grafts and 2 fistula repairs (hospitalized for 1 year @[facility])-2010 Past Anesthesia/Blood Transfusion Reactions: Motion Sickness Additional Past Anesthesia/Blood Transfusion Reaction / Comment(s): FATHER RECEIVED HEPATITIS FROM BLOOD TRANSFUSION Date of Last Stent Placement:: 03/28/2015 Past Psychological History: Depression Smoking Status: Former smoker Past Alcohol Use History: None Reported Additional Past Alcohol Use History / Comment(s): STARTED SMOKING 1997 Past Drug Use History: None Reported - Past Family History Mother Family Medical History: Osteoarthritis (OA), Pneumonia Additional Family Medical History / Comment(s): osteoporosis. arthroscopy surgery for knee Father Family Medical History: Liver Disease, Renal Disease Additional Family Medical History / Comment(s): triple heart bypass. liver transplant. aortic aneursym Medications and Allergies Home Medications Medication Instructions Recorded Confirmed Type Loratadine [Claritin] 10 mg PO DAILY 10/19/13 09/02/16 History Sertraline [Zoloft] 100 mg PO HS 10/19/13 09/02/16 History Atorvastatin [Lipitor] 80 mg PO HS 03/25/15 09/02/16 History Folic Acid 1 mg PO BID 03/25/15 09/02/16 History Levothyroxine Sodium [Synthroid] 137 mcg PO QAM 03/25/15 09/02/16 History Budesonide/Formoterol Fumarate 2 puff INHALATION RT-BID 08/01/16 09/02/16 History [Symbicort 160-4.5 Mcg Inhaler] Metoprolol Tartrate [Lopressor] 100 mg PO BID 08/01/16 09/02/16 History amLODIPine [Norvasc] 5 mg PO DAILY 08/01/16 09/02/16 History Furosemide [Lasix] 60 mg PO TID 09/02/16 09/02/16 History Allergies Allergy/AdvReac Type Severity Reaction Status Date / Time adhesive Allergy "PLASTIC Verified 09/02/16 18:30 TAPE PEELS SKIN,PAPER TAPE IS OK" Cephalosporins Allergy Unknown Verified 09/02/16 18:30 linezolid Allergy Unknown Verified 09/02/16 18:30 penicillin G Allergy Rash/Hives Verified 09/02/16 18:30 Physical Exam Vitals: Intake and Output 09/02/16 09/03/16 09/03/16 22:59 06:59 14:59 Other: Weight 188.5 kg Patient Weight 09/04/16 06:59 Weight 188.5 kg Results - Lab Results Most recent lab results Calcium 9.4 mg/dL (8.4-10.2) 09/02/16 18:45 Magnesium 2.1 mg/dL (1.6-2.3) 09/02/16 18:45 09/02/16 18:45 09/02/16 18:45 Assessment and Plan Plan: Assessment: #1. Chronic kidney disease stage III secondary to nephrosclerosis and cardiorenal syndrome with baseline creatinine near 1.5. GFR is at baseline. #2. Acute decompensated diastolic CHF. #3. Morbid obesity. #4. Hypertension with chronic kidney disease. Controlled. Plan: I will change the Lasix to IV 40 mg 3 times daily for now. I will put him on a low-salt and a 1.5 L fluid restricted diet. Check a urinalysis. Check renal ultrasound. Avoid nephrotoxic agents and hypotensive episodes. Repeat electrolyzes in the morning. For the consultation. I will continue to follow the patient with you during his hospital stay.
[2016-09-03 12:04] LABS: Glucose,Whole Blood 250 mg/dL (75-99)
[2016-09-03] MEDS: FOLIC ACID 1 MG TAB PO SCH (12:12)
[2016-09-03] MEDS: FUROSEMIDE 10 MG/ML 4 ML VIAL IV SCH ×3 (12:14→23:15)
[2016-09-03 14:32] LABS: Appearance,Urine Clear (Clear); Bilirubin,Urine Negative (Negative); Glucose,Urine (UA) Negative (Negative); Ketones,Urine Negative (Negative); Leukocyte Esterase,Urine Negative (Negative); Nitrite,Urine Negative (Negative); PH, Urine 5.5 (5.0-8.0); Protein,Urine Trace (Negative); Specific Gravity,Urine 1.009 (1.001-1.035); UA Billing (MACRO vs. MICRO) CHEM; Urobilinogen,Urine <2.0 mg/dL (<2.0)
[2016-09-03] MEDS ORDERED: FUROSEMIDE 20 MG TAB PO SCH (16:00)
[2016-09-03 17:07] LABS: Glucose,Whole Blood 222 mg/dL (75-99)
[2016-09-03] MEDS: RIVAROXABAN 10 MG TAB PO SCH (17:39)
[2016-09-03] MEDS: ATORVASTATIN 80 MG TAB PO SCH (20:02)
[2016-09-03] MEDS: SERTRALINE 100 MG TAB PO SCH (20:02)
[2016-09-03] MEDS: MORPHINE SULFATE 4 MG/ML SYRINGE IVP PRN ×2 (20:36→23:24)
[2016-09-03] MEDS: SYMBICORT 160-4.5 MCG INHALER INHALATION SCH (20:54)
[2016-09-03 21:19] LABS: Glucose,Whole Blood 288 mg/dL (75-99)
--- NOTE | 2016-09-03 22:03 | US ---
EXAMINATION TYPE: US kidneys/renal and bladder DATE OF EXAM: 09/03/2016 3:25 PM COMPARISON: 06/07/2011 CLINICAL HISTORY: 46-year-old male with acute kidney injury and history of renal infection. Patient states no pain. TECHNIQUE: Multiple sonographic images of the kidneys and bladder were obtained. FINDINGS: TECHNOLOGIST NOTES: Limited and suboptimal visualization due to patient body habitus EXAM MEASUREMENTS: Right Kidney: 11.3 x 5.2 x 5.0 cm Left Kidney: 9.9 x 4.4 x 5.6 cm Right Kidney: Limited visualization. No obvious hydronephrosis. Echogenic focus seen in lower pole = 0.7 x 0.6 cm Left Kidney: Limited visualization, portions visualized appear within normal limits. No obvious hydro nephrosis. Bladder: Partially distended. Bilateral Jets seen not seen IMPRESSION: 1 Limited visualization of the kidneys due to large patient body habitus. No obvious hydronephrosis. 2. Suspect a 7 mm nonobstructive right lower pole renal calculus.
[2016-09-04] MEDS ORDERED: IPRATROPIUM-ALBUTEROL 3 ML NEB INHALATION PRN (02:04)
[2016-09-04] MEDS: MORPHINE SULFATE 4 MG/ML SYRINGE IVP PRN ×3 (02:40→15:02)
[2016-09-04 06:34] LABS: Glucose,Whole Blood 230 mg/dL (75-99)
[2016-09-04] MEDS: LEVOTHYROXINE 137 MCG TAB PO SCH (06:48)
[2016-09-04] MEDS: methylPREDNISolone SOD SUCCI 125 MG/2 ML VIAL IV SCH ×3 (06:48→18:01)
[2016-09-04 07:05] LABS: Calcium 9.7 mg/dL (8.4-10.2); Potassium 4.6 mmol/L (3.5-5.1)
[2016-09-04] MEDS: IPRATROPIUM-ALBUTEROL 3 ML NEB INHALATION SCH ×4 (07:22→20:35)
[2016-09-04] MEDS: SYMBICORT 160-4.5 MCG INHALER INHALATION SCH ×2 (07:22→20:35)
[2016-09-04] MEDS: DILTIAZEM CD 240 MG CAP.ER.24H PO SCH (08:13)
[2016-09-04] MEDS: METOPROLOL TARTRATE 50 MG TAB PO SCH ×2 (08:13→20:14)
[2016-09-04] MEDS: FUROSEMIDE 10 MG/ML 4 ML VIAL IV SCH (08:13)
[2016-09-04] MEDS: LORATADINE 10 MG TAB PO SCH (08:14)
[2016-09-04] MEDS: amLODIPine 5 MG TAB PO SCH (08:14)
[2016-09-04] MEDS: INSULIN LISPRO (humaLOG) 300 UNIT/3 ML VIAL SQ SCH ×4 (08:14→20:58)
[2016-09-04] MEDS: CLOPIDOGREL 75 MG TAB PO SCH (08:14)
--- NOTE | 2016-09-04 08:50 | HP ---
DATE OF ADMISSION: Patient is a 46-year-old with a history of CKD, history of chronic diastolic dysfunction and baseline creatinine of 1.5, came in with complaints of shortness of breath, unable to obtain history of orthopnea or PND. Patient mostly does not lie flat on the bed at all and patient is complaining of nonproductive cough. Patient denied any fever, chills. Patient denied any nausea or vomiting. Patient denied any abdominal pain. Patient has a 5 pound weight gain in about a week and patient is noncompliant with low salt diet. Patient does not use any NSAIDs. Patient takes I believe 80 b.i.d. of Lasix at home. In the ER patient is found to have pulmonary edema with elevated BNP in high 3000s and his last BNP during his hospitalization was in low 2000. Patient has normal systolic function during previous hospitalization. He was diagnosed with diastolic dysfunction in the past. The patient was started on 40 IV t.i.d. of Lasix. REVIEW OF SYSTEMS: CONSTITUTIONAL: No fever, no malaise, no fatigue. HEENT: No recent visual problems or hearing problems. Denied any sore throat. CARDIOVASCULAR: As described in HPI. PULMONARY: As described in HPI. GASTROINTESTINAL: No diarrhea, no nausea, no vomiting, no abdominal pain. Normoactive bowel sounds. NEUROLOGICAL: No headaches, no weakness, no numbness. HEMATOLOGICAL: Denies any bleeding or petechiae. GENITOURINARY: Denies any burning micturition, frequency, or urgency. MUSCULOSKELETAL/RHEUMATOLOGICAL: Denies any joint pain, swelling, or any muscle pain. ENDOCRINE: Denies any polyuria or polydipsia. The rest of the 14 point review of systems is negative. PAST MEDICAL HISTORY: Significant for chronic atrial flutter, chronic obstructive pulmonary disease, morbid obesity, restrictive lung disease, patient was newly diagnosed with sleep apnea and does not use any CPAP machine, hyperlipidemia, hypertension, myocardial infarction, hypothyroidism. Patient had a bowel resection, cardiac catheterization, stent removal, hernia repair in the past. Depression. SOCIAL HISTORY: Quit smoking in 1997 and denies alcohol abuse or any drug abuse. FAMILY HISTORY: Mother had osteoarthritis and pneumonia. Father had liver disease and renal disease. Home medications include: Loratadine, sertraline, atorvastatin, folic acid, levothyroxine, ( ) formoterol, metoprolol, amlodipine, Lasix 60 mg p.o. t.i.d. ALLERGIES: ALLERGIC TO ADHESIVE TAPE, ( ), AND PENICILLIN. PHYSICAL EXAMINATION: VITAL SIGNS: Temperature 97.8, pulse of 84, respiratory rate of 16, blood pressure is 103/61, saturating at 93% on room air. GENERAL: Morbidly obese, alert and oriented x3, not in apparent respiratory distress. HEENT: Pupils are round and equally reacting to light. EOMI. No scleral icterus. No conjunctival pallor. Normocephalic, atraumatic. No pharyngeal erythema. No thyromegaly. CARDIOVASCULAR: S1 and S2 present. I am unable to assess JVD because of his morbid obesity. I did not appreciate any S3. S1 and S2 present. Patient is on the tachycardic side. PULMONARY: Chest is clear to auscultation, no wheezing or crackles. ABDOMEN: Soft, nontender, nondistended, normoactive bowel sounds. No palpable organomegaly. MUSCULOSKELETAL: No joint swelling or deformity. EXTREMITIES: No cyanosis, clubbing, or pedal edema. NEUROLOGICAL: Gross neurological examination did not reveal any focal deficits. SKIN: No rashes. LABORATORY DATA: CBC and CMP are abnormal for elevated BUN of 26, creatinine 1.56. This is the best creatinine had for a long time. Patient's baseline is around that. BNP as mentioned above. ASSESSMENT AND PLAN: 1. Acute hypoxic respiratory failure secondary to congestive heart failure, chronic diastolic dysfunction with acute exacerbation. 2. Morbid obesity with restrictive lung disease, newly diagnosed. 3. Sleep apnea. Patient will follow with Dr. Corona as an outpatient for that. 4. Chronic obstructive pulmonary disease without any acute exacerbation. 5. Chronic kidney disease stage III secondary to most probably appears to be cardiorenal. 6. Atrial flutter and atrial fibrillation history for which patient is on Xarelto. Patient is mildly tachycardic which is improving at this point of time. 7. Hypothyroidism. 8. Hyperlipidemia. 9. Hypertension. 10. Morbid obesity. For above mentioned chronic medical problems I will go ahead and continue his home medications. Patient is on 40 IV t.i.d. of Lasix. Will closely monitor him.
[2016-09-04] MEDS: DOCUSATE 100 MG CAP PO PRN ×2 (09:40→20:14)
--- NOTE | 2016-09-04 11:11 | P.PN ---
Subjective Patient is seen in follow-up for acute kidney injury on chronic kidney disease. Patient has chronic kidney disease stage III secondary to nephrosclerosis and cardiorenal syndrome with baseline creatinine near 1.5. He is currently on Lasix 40 mg IV 3 times daily. His creatinine is up to 1.96 today. He has been voiding quite a bit. Denies any vomiting or diarrhea. Denies chest pain. He is still dyspneic and doesn't feel back to baseline yet. Vital signs are stable. General: The patient appeared well nourished and normally developed. HEENT: Head exam is unremarkable. Neck is without jugular venous distension. LUNGS: Rhonchi at bases. Breath sounds decreased. HEART: Rate and Rhythm are regular. First and second heart sounds normal. No murmurs, rubs or gallops. ABDOMEN: Abdominal exam reveals normal bowel sounds. Non-tender and non- distended. No evidence of peritonitis. EXTREMITITES: Chronic changes noted. 1+ pitting edema. Objective - Vital Signs Vital signs: Vital Signs Temp 97.6 F 09/04/16 07:28 Pulse 80 09/04/16 07:35 Resp 18 09/04/16 07:28 BP 100/53 09/04/16 07:28 Pulse Ox 93 L 09/04/16 07:28 Intake & Output 09/03/16 09/04/16 09/04/16 18:59 06:59 18:59 Intake Total 220 220 180 Output Total 600 Balance 220 -380 180 Weight 188.5 kg 186.5 kg Intake: Oral 220 220 180 Output: Urine 600 Other: Voiding Method Toilet Toilet Toilet # Voids 1 1 - Labs CBC & Chem 7: 09/02/16 18:45 09/04/16 06:21 Labs: Abnormal Lab Results - Last 24 Hours (Table) 09/03/16 09/03/16 09/03/16 Range/Units 12:01 14:10 17:00 BUN (9-20) mg/dL Creatinine (0.66-1.25) mg/dL Glucose (74-99) mg/dL POC Glucose (mg/dL) 250 H 222 H (75-99) mg/dL Urine Protein Trace H (Negative) 09/03/16 09/04/16 09/04/16 Range/Units 21:17 06:21 06:29 BUN 44 H (9-20) mg/dL Creatinine 1.96 H (0.66-1.25) mg/dL Glucose 210 H (74-99) mg/dL POC Glucose (mg/dL) 288 H 230 H (75-99) mg/dL Urine Protein (Negative) Assessment and Plan Plan: Assessment: #1. Chronic kidney disease stage III secondary to nephrosclerosis and cardiorenal syndrome with baseline creatinine near 1.5. Urinalysis and renal ultrasound noted to be benign. #2. Acute decompensated diastolic CHF. #3. Morbid obesity. #4. Hypertension with chronic kidney disease. Controlled. Plan: I will change Lasix to 60 mg IV twice daily. Continue low-salt and a 1.5 L fluid restricted diet. Avoid nephrotoxic agents and hypotensive episodes - hold amlodipine for now. Repeat electrolytes in the morning.
[2016-09-04 12:04] LABS: Glucose,Whole Blood 277 mg/dL (75-99)
[2016-09-04] MEDS: FOLIC ACID 1 MG TAB PO SCH (12:20)
[2016-09-04] MEDS: FUROSEMIDE 10 MG/ML 10 ML VIAL IV SCH ×2 (12:27→20:19)
[2016-09-04 16:54] LABS: Glucose,Whole Blood 230 mg/dL (75-99)
[2016-09-04] MEDS: RIVAROXABAN 10 MG TAB PO SCH (17:13)
[2016-09-04] MEDS: HYDROcodone/APAP 5-325MG 1 EACH TAB PO PRN (20:14)
[2016-09-04] MEDS: ATORVASTATIN 80 MG TAB PO SCH (20:14)
[2016-09-04] MEDS: SERTRALINE 100 MG TAB PO SCH (20:15)
[2016-09-04 20:54] LABS: Glucose,Whole Blood 266 mg/dL (75-99)
[2016-09-04] MEDS: methylPREDNISolone SOD SUCCI 40 MG/ML 1 ML VIAL IV SCH (22:57)
[2016-09-05] MEDS: LEVOTHYROXINE 137 MCG TAB PO SCH (05:58)
[2016-09-05 06:55] LABS: Glucose,Whole Blood 208 mg/dL (75-99)
[2016-09-05 06:56] LABS: Anisocytosis Slight; CHCM 31.8; HCT 40.8 % (39.0-53.0); HDW 3.81; HGB 12.6 gm/dL (13.0-17.5); Hypochromasia Moderate; MCH 27.2 pg (25.0-35.0); MCHC 30.8 g/dL (31.0-37.0); MCV 88.3 fL (80.0-100.0); Mean Platelet Volume 7.9; Poikilocytosis Slight; RBC 4.62 m/uL (4.30-5.90); RDW 18.6 % (11.5-15.5); WBC 9.4 k/uL (3.8-10.6)
[2016-09-05 07:06] LABS: Calcium 9.4 mg/dL (8.4-10.2); Potassium 4.3 mmol/L (3.5-5.1)
[2016-09-05] MEDS: SYMBICORT 160-4.5 MCG INHALER INHALATION SCH ×2 (07:24→19:44)
[2016-09-05] MEDS: IPRATROPIUM-ALBUTEROL 3 ML NEB INHALATION SCH ×4 (07:24→19:44)
[2016-09-05] MEDS: CLOPIDOGREL 75 MG TAB PO SCH (08:08)
[2016-09-05] MEDS: LORATADINE 10 MG TAB PO SCH (08:08)
[2016-09-05] MEDS: DILTIAZEM CD 240 MG CAP.ER.24H PO SCH (08:08)
[2016-09-05] MEDS: FUROSEMIDE 10 MG/ML 10 ML VIAL IV SCH ×2 (08:08→20:59)
[2016-09-05] MEDS: methylPREDNISolone SOD SUCCI 40 MG/ML 1 ML VIAL IV SCH ×2 (08:08→17:00)
[2016-09-05] MEDS: METOPROLOL TARTRATE 50 MG TAB PO SCH ×2 (08:08→21:00)
[2016-09-05] MEDS: INSULIN LISPRO (humaLOG) 300 UNIT/3 ML VIAL SQ SCH ×4 (08:09→21:00)
[2016-09-05] MEDS: HYDROcodone/APAP 5-325MG 1 EACH TAB PO PRN (08:16)
--- NOTE | 2016-09-05 09:42 | PN ---
Maximo Cerna is a 46-year-old gentleman who is admitted to hospital with acute exacerbation of chronic diastolic heart failure, chronic atrial fibrillation, morbid obesity, chronic renal failure and COPD. He continues to have leg edema, chronic stasis changes and renal insufficiency. At the time of my evaluation this morning, he is afebrile. Heart rate is 80 beats per minute, blood pressure 159/78, respirations 18. Chest exam reveals diminished air entry at the bases. Heart exam reveals first and second heart sounds. No gallop. Exam of extremities reveals bilateral 1+ edema. Chronic stasis changes. Renal function showed elevated BUN and creatinine. I am going to stop the Xarelto that he is on and start him on Eliquis given the renal insufficiency. ASSESSMENT: 1. Chronic diastolic heart failure with acute exacerbation. 2. Chronic obstructive pulmonary disease exacerbation. 3. Chronic atrial fibrillation. 4. Chronic renal failure. PLAN: Continue the patient on IV Lasix. Stop the Xarelto. Also put him on Eliquis for tomorrow.
[2016-09-05] MEDS: MORPHINE SULFATE 4 MG/ML SYRINGE IVP PRN ×3 (10:04→21:08)
--- NOTE | 2016-09-05 10:15 | PN ---
DATE OF SERVICE: 09/04/2016 INTERVAL HISTORY: Mr. Cerna is a 46-year-old male with a known history of morbid obesity and restrictive lung disease and CKD stage 3 and CHF with diastolic dysfunction, came to the hospital with complaints of worsening short of breath and chest x-ray findings of interstitial edema and small pleural effusions. Patient is currently being diuresed and is thought to have CHF exacerbation with diastolic dysfunction. Cardiology and Nephrology are following the patient. However, the patient is today still complaining of shortness of breath and unable to ambulate without shortness of breath to the bathroom. The patient is being continued on IV Lasix at this time. REVIEW OF SYSTEMS: CONSTITUTIONAL: No fever. No chills. Patient does have weakness. RESPIRATORY: No cough or sputum production. CARDIOVASCULAR: No chest pain. Patient does have shortness of breath. Leg swelling improved. ABDOMEN: No nausea, vomiting, abdominal pain. No diarrhea. GENITOURINARY: Negative. ENDOCRINE: Negative. PSYCHIATRIC: Negative. Current medications include: 1. [place] 5/325. 2. DuoNeb. 3. Atorvastatin. 4. Symbicort. 5. Plavix. 6. Cardizem. 7. Colace. 8. Folic acid. 9. Lasix. 10. Humalog. 11. Levothyroxine. 12. Loratadine. 13. Methylprednisolone. 14. Metoprolol. 15. Morphine sulfate. 16. Nitrostat. 17. Xarelto. 18. Zoloft. PHYSICAL EXAMINATION: A 46-year-old male lying in the bed comfortably. Awake, alert, oriented x3, appears to be in no apparent distress. VITALS: Blood pressure is 132/74, pulse is 92, respirations 16, temperature afebrile, pulse ox 92% on 2L nasal cannula. HEENT: Atraumatic, normocephalic. Neck is supple. No JVD. CVS: S1, S2 heard. Diminished breath sounds basally. Nonlabored breathing. ABDOMEN: Soft, nontender, obese. Bowel sounds are present. HULL GRINDER: Awake, alert, oriented, x3 No neurologic deficits. EXTREMITIES: Pulses palpable bilaterally. No clubbing or cyanosis. PSYCHIATRIC: Cooperative. EXTREMITIES: 2+ edema. LABORATORY DATA: Sodium 141, potassium 4.3, chloride 103, bicarb is 24, BUN 44, creatinine 1.96, blood sugar is 210. IMPRESSION: 1. Shortness of breath secondary to acute on chronic congestive heart failure with diastolic dysfunction. 2. Morbid obesity with restrictive lung disease. 3. Sleep apnea on continuous positive airway pressure at home. 4. Chronic obstructive pulmonary disease without acute exacerbation. 5. Acute on chronic kidney disease stage 3, most like secondary to diuresis. 6. Atrial flutter and atrial fibrillation anticoagulated with Xarelto. 7. Hypothyroidism. 8. Hyperlipidemia. 9. Morbid obesity. 10. Hypertension. DISCUSSION AND PLAN: Patient will be continued on breathing treatments, continue with IV diuresis and monitor renal function. We will reduce her steroid dose to 40 mg q.8 hourly and change to p.o. prednisone tomorrow. Continue to monitor strict I's and O's. Nephrology and Cardiology are on board and will follow. Continue with the current management and further recommendations based on the clinical course.
--- NOTE | 2016-09-05 11:22 | P.PN ---
Subjective Patient is seen in follow-up for acute kidney injury on chronic kidney disease. Patient has chronic kidney disease stage III secondary to nephrosclerosis and cardiorenal syndrome with baseline creatinine near 1.5. He is currently on Lasix 60 mg IV 2 times daily. His creatinine is up to 2.12 today. He has been voiding quite a bit and is maintaining a net negative fluid balance. Denies any vomiting or diarrhea. Denies chest pain. He is still dyspneic mostly with exertion. Vital signs are stable. General: The patient appeared well nourished and normally developed. HEENT: Head exam is unremarkable. Neck is without jugular venous distension. LUNGS: Rhonchi at bases. Breath sounds decreased. HEART: Rate and Rhythm are regular. First and second heart sounds normal. No murmurs, rubs or gallops. ABDOMEN: Abdominal exam reveals normal bowel sounds. Non-tender and non- distended. No evidence of peritonitis. EXTREMITITES: Chronic changes noted. 1+ pitting edema. Objective - Vital Signs Vital signs: Vital Signs Temp 97.1 F L 09/05/16 10:40 Pulse 78 09/05/16 10:40 Resp 20 09/05/16 10:40 BP 108/56 09/05/16 10:40 Pulse Ox 93 L 09/05/16 10:40 Intake & Output 09/04/16 09/05/16 09/05/16 18:59 06:59 18:59 Intake Total 660 300 720 Output Total 750 1500 Balance -90 -1200 720 Weight 186.5 kg Intake: IV 60 0.9@20 60 Oral 660 240 720 Output: Urine 750 1500 Other: Voiding Method Toilet Toilet Toilet - Labs CBC & Chem 7: 09/05/16 06:23 09/05/16 06:23 Labs: Abnormal Lab Results - Last 24 Hours (Table) 09/04/16 09/04/16 09/04/16 Range/Units 11:53 16:53 20:50 Hgb (13.0-17.5) gm/dL MCHC (31.0-37.0) g/dL RDW (11.5-15.5) % BUN (9-20) mg/dL Creatinine (0.66-1.25) mg/dL Glucose (74-99) mg/dL POC Glucose (mg/dL) 277 H 230 H 266 H (75-99) mg/dL 09/05/16 09/05/16 09/05/16 Range/Units 06:23 06:23 06:53 Hgb 12.6 L (13.0-17.5) gm/dL MCHC 30.8 L (31.0-37.0) g/dL RDW 18.6 H (11.5-15.5) % BUN 63 H (9-20) mg/dL Creatinine 2.12 H (0.66-1.25) mg/dL Glucose 201 H (74-99) mg/dL POC Glucose (mg/dL) 208 H (75-99) mg/dL Assessment and Plan Plan: Assessment: #1. Chronic kidney disease stage III secondary to nephrosclerosis and cardiorenal syndrome with baseline creatinine near 1.5. Urinalysis and renal ultrasound noted to be benign. #2. Acute decompensated diastolic CHF. #3. Morbid obesity. #4. Hypertension with chronic kidney disease. Controlled. Plan: Continue Lasix to 60 mg IV twice daily. Continue low-salt and a 1.5 L fluid restricted diet. Avoid nephrotoxic agents and hypotensive episodes - hold amlodipine for now. Repeat electrolytes in the morning.
[2016-09-05 12:20] LABS: Glucose,Whole Blood 196 mg/dL (75-99)
[2016-09-05] MEDS: FOLIC ACID 1 MG TAB PO SCH (12:36)
[2016-09-05] MEDS ORDERED: BENZOCAINE/MENTHOL LOZENG 1 EACH LOZENGE MUCOUS MEM PRN (15:41)
[2016-09-05 16:54] LABS: Glucose,Whole Blood 200 mg/dL (75-99)
[2016-09-05 20:49] LABS: Glucose,Whole Blood 199 mg/dL (75-99)
[2016-09-05] MEDS: ATORVASTATIN 80 MG TAB PO SCH (20:59)
[2016-09-05] MEDS: SERTRALINE 100 MG TAB PO SCH (21:01)
[2016-09-06] MEDS: MORPHINE SULFATE 4 MG/ML SYRINGE IVP PRN ×6 (00:06→19:50)
[2016-09-06] MEDS: methylPREDNISolone SOD SUCCI 40 MG/ML 1 ML VIAL IV SCH ×3 (00:06→17:36)
[2016-09-06] MEDS: LEVOTHYROXINE 137 MCG TAB PO SCH (06:12)
[2016-09-06 07:35] LABS: Glucose,Whole Blood 189 mg/dL (75-99)
[2016-09-06] MEDS: SYMBICORT 160-4.5 MCG INHALER INHALATION SCH ×2 (07:55→20:16)
[2016-09-06] MEDS: IPRATROPIUM-ALBUTEROL 3 ML NEB INHALATION SCH ×4 (07:55→20:16)
[2016-09-06] MEDS: APIXABAN 5 MG TAB PO SCH ×2 (08:26→22:08)
[2016-09-06] MEDS: FUROSEMIDE 10 MG/ML 10 ML VIAL IV SCH ×2 (08:26→22:07)
[2016-09-06] MEDS: INSULIN LISPRO (humaLOG) 300 UNIT/3 ML VIAL SQ SCH ×4 (08:26→23:02)
[2016-09-06] MEDS: CLOPIDOGREL 75 MG TAB PO SCH (08:26)
[2016-09-06] MEDS: DILTIAZEM CD 240 MG CAP.ER.24H PO SCH (08:26)
[2016-09-06] MEDS: LORATADINE 10 MG TAB PO SCH (08:26)
[2016-09-06] MEDS: METOPROLOL TARTRATE 50 MG TAB PO SCH ×2 (08:26→22:08)
[2016-09-06 09:36] LABS: Calcium 8.9 mg/dL (8.4-10.2); Potassium 4.2 mmol/L (3.5-5.1)
--- NOTE | 2016-09-06 11:23 | P.PN ---
Subjective Patient is seen in follow-up for acute kidney injury on chronic kidney disease. Patient has chronic kidney disease stage III secondary to nephrosclerosis and cardiorenal syndrome with baseline creatinine near 1.5. He is currently on Lasix 60 mg IV 2 times daily. Renal function is improved with creatinine at 1.95 today. He has been voiding quite a bit and is maintaining a net negative fluid balance. Denies any vomiting or diarrhea. Denies chest pain. He is still dyspneic mostly with exertion. Vital signs are stable. General: The patient appeared well nourished and normally developed. HEENT: Head exam is unremarkable. Neck is without jugular venous distension. LUNGS: Rhonchi at bases. Breath sounds decreased. HEART: Rate and Rhythm are regular. First and second heart sounds normal. No murmurs, rubs or gallops. ABDOMEN: Abdominal exam reveals normal bowel sounds. Non-tender and non- distended. No evidence of peritonitis. EXTREMITITES: Chronic changes noted. 1+ pitting edema. Objective - Vital Signs Vital signs: Vital Signs Temp 97.1 F L 09/06/16 08:00 Pulse 80 09/06/16 08:55 Resp 20 09/06/16 11:02 BP 122/77 09/06/16 08:00 Pulse Ox 95 09/06/16 08:00 Intake & Output 09/05/16 09/06/16 09/06/16 18:59 06:59 18:59 Intake Total 1200 Output Total 275 1850 Balance 925 -1850 Weight 191.5 kg Intake: Oral 1200 Output: Urine 275 1850 Other: Voiding Method Toilet # Voids 1 - Labs CBC & Chem 7: 09/05/16 06:23 09/06/16 09:05 Labs: Abnormal Lab Results - Last 24 Hours (Table) 09/05/16 09/05/16 09/05/16 Range/Units 12:18 16:52 20:48 BUN (9-20) mg/dL Creatinine (0.66-1.25) mg/dL Glucose (74-99) mg/dL POC Glucose (mg/dL) 196 H 200 H 199 H (75-99) mg/dL 09/06/16 09/06/16 Range/Units 07:33 09:05 BUN 70 H (9-20) mg/dL Creatinine 1.95 H (0.66-1.25) mg/dL Glucose 319 H (74-99) mg/dL POC Glucose (mg/dL) 189 H (75-99) mg/dL Assessment and Plan Plan: Assessment: #1. Chronic kidney disease stage III secondary to nephrosclerosis and cardiorenal syndrome with baseline creatinine near 1.5. Urinalysis and renal ultrasound noted to be benign. #2. Acute decompensated diastolic CHF. #3. Morbid obesity. #4. Hypertension with chronic kidney disease. Controlled. #5. Nonoliguric acute kidney injury mostly prerenal due to diuresis. Improved. Plan: Continue Lasix to 60 mg IV twice daily. Continue low-salt and a 1.5 L fluid restricted diet. Avoid nephrotoxic agents and hypotensive episodes - hold amlodipine for now. Repeat electrolytes in the morning.
[2016-09-06 11:56] LABS: Glucose,Whole Blood 270 mg/dL (75-99)
[2016-09-06] MEDS: FOLIC ACID 1 MG TAB PO SCH (13:19)
[2016-09-06 13:50] VITALS: BMI 60.5
[2016-09-06] MEDS: HYDROcodone/APAP 5-325MG 1 EACH TAB PO PRN (15:18)
[2016-09-06 16:56] LABS: Glucose,Whole Blood 176 mg/dL (75-99)
[2016-09-06 21:02] LABS: Glucose,Whole Blood 227 mg/dL (75-99)
[2016-09-06] MEDS: SERTRALINE 100 MG TAB PO SCH (22:08)
[2016-09-06] MEDS: ATORVASTATIN 80 MG TAB PO SCH (22:10)
[2016-09-07] MEDS: MORPHINE SULFATE 4 MG/ML SYRINGE IVP PRN ×2 (00:24→13:13)
[2016-09-07] MEDS: IPRATROPIUM-ALBUTEROL 3 ML NEB INHALATION SCH ×3 (07:09→16:36)
[2016-09-07] MEDS: SYMBICORT 160-4.5 MCG INHALER INHALATION SCH (07:09)
[2016-09-07 07:21] LABS: Glucose,Whole Blood 163 mg/dL (75-99)
[2016-09-07] MEDS: LEVOTHYROXINE 137 MCG TAB PO SCH (07:24)
[2016-09-07] MEDS: LORATADINE 10 MG TAB PO SCH (08:49)
[2016-09-07] MEDS: APIXABAN 5 MG TAB PO SCH (08:49)
[2016-09-07] MEDS: METOPROLOL TARTRATE 50 MG TAB PO SCH (08:49)
[2016-09-07] MEDS: DILTIAZEM CD 240 MG CAP.ER.24H PO SCH (08:49)
[2016-09-07] MEDS: FUROSEMIDE 10 MG/ML 10 ML VIAL IV SCH (08:49)
[2016-09-07] MEDS: CLOPIDOGREL 75 MG TAB PO SCH (08:49)
[2016-09-07] MEDS: INSULIN LISPRO (humaLOG) 300 UNIT/3 ML VIAL SQ SCH ×3 (08:50→18:39)
[2016-09-07] MEDS ORDERED: predniSONE 20 MG TAB PO SCH (09:00)
--- NOTE | 2016-09-07 09:33 | P.PN ---
Subjective Patient is seen in follow-up for acute kidney injury on chronic kidney disease. Patient has chronic kidney disease stage III secondary to nephrosclerosis and cardiorenal syndrome with baseline creatinine near 1.5. He is currently on Lasix 60 mg IV 2 times daily. Renal function is improved with creatinine at 1.95 as of yesterday. He has been voiding quite a bit and is maintaining a net negative fluid balance - urine output greater than 3 L in the last 24 hours. Denies any vomiting or diarrhea. Denies chest pain. Dyspnea is improved. Vital signs are stable. General: The patient appeared well nourished and normally developed. HEENT: Head exam is unremarkable. Neck is without jugular venous distension. LUNGS: Rhonchi at bases. Breath sounds decreased. HEART: Rate and Rhythm are regular. First and second heart sounds normal. No murmurs, rubs or gallops. ABDOMEN: Abdominal exam reveals normal bowel sounds. Non-tender and non- distended. No evidence of peritonitis. EXTREMITITES: Chronic changes noted. 1+ pitting edema. Objective - Vital Signs Vital signs: Vital Signs Temp 97 F L 09/07/16 08:00 Pulse 85 09/07/16 08:00 Resp 18 09/07/16 08:00 BP 123/75 09/07/16 08:00 Pulse Ox 95 09/07/16 08:00 Intake & Output 09/06/16 09/07/16 09/07/16 18:59 06:59 18:59 Intake Total 480 Output Total 600 2900 Balance -120 -2900 Weight 191.5 kg 189 kg Intake: Oral 480 Output: Urine 600 2900 Other: Voiding Method Urinal # Voids 1 1 - Labs CBC & Chem 7: 09/05/16 06:23 09/06/16 09:05 Labs: Abnormal Lab Results - Last 24 Hours (Table) 09/06/16 09/06/16 09/06/16 Range/Units 09:05 11:55 16:53 BUN 70 H (9-20) mg/dL Creatinine 1.95 H (0.66-1.25) mg/dL Glucose 319 H (74-99) mg/dL POC Glucose (mg/dL) 270 H 176 H (75-99) mg/dL 09/06/16 09/07/16 Range/Units 21:01 07:20 BUN (9-20) mg/dL Creatinine (0.66-1.25) mg/dL Glucose (74-99) mg/dL POC Glucose (mg/dL) 227 H 163 H (75-99) mg/dL Assessment and Plan Plan: Assessment: #1. Chronic kidney disease stage III secondary to nephrosclerosis and cardiorenal syndrome with baseline creatinine near 1.5. Urinalysis and renal ultrasound noted to be benign. #2. Acute decompensated diastolic CHF. #3. Morbid obesity. #4. Hypertension with chronic kidney disease. Controlled. #5. Nonoliguric acute kidney injury mostly prerenal due to diuresis. Improved. Plan: Continue Lasix to 60 mg IV twice daily. Continue low-salt and a 1.5 L fluid restricted diet. Avoid nephrotoxic agents and hypotensive episodes - hold amlodipine for now. Repeat electrolytes in the morning. Stable to be discharged home from nephrology standpoint on Lasix 40 mg orally twice daily. He is to monitor his weight and increase the dose to 60 mg twice daily if needed. He is to follow-up as an outpatient in the next 1-2 weeks.
[2016-09-07 10:02] LABS: Calcium 9.2 mg/dL (8.4-10.2); Potassium 4.2 mmol/L (3.5-5.1)
[2016-09-07 11:23] LABS: Glucose,Whole Blood 175 mg/dL (75-99)
--- NOTE | 2016-09-07 11:40 | PN ---
DATE OF SERVICE: 09/05/2016 INTERVAL HISTORY: Mr. Cerna is a 46 -year-old male with known history of morbid obesity and restrictive lung disease, CKD Stage III and ( ) acute exacerbation with diastolic dysfunction admitted to the hospital with worsening short of breath and currently being treated for acute CHF exacerbation with diastolic dysfunction and patient also having acute kidney injury, nephrology has been consulted as well. Otherwise, patient being diuresed with IV Lasix. The patient symptomatically slightly improved today. Improved leg swelling and breathing. The patient otherwise complaining of sore throat and no fever. No chills. No acute overnight issues. No worsening short of breath or chest pain. REVIEW OF SYSTEMS: CONSTITUTIONAL: No fever. No chills. RESPIRATORY: No cough or sputum production. The patient does have sore throat. No worsening short of breath. CARDIOVASCULAR: No chest pain. Patient does have short of breath and leg swelling improved. GENITOURINARY: Negative. ENDOCRINE: Negative. PSYCHIATRY: Negative. All other fourteen-point review of systems negative except as above. CURRENT MEDICATIONS: Reviewed. PHYSICAL EXAMINATION: A 46-year-old male lying in bed comfortably. Awake, alert, oriented, x3. Appears to be in no apparent distress. VITALS: 131/81, pulse is 60, respirations 20, temperature afebrile, pulse ox 95% on room air. HEENT: Atraumatic, normocephalic. Neck is supple. No JVD. CVS: S1, S2 heard. No murmurs or gallop. LUNGS: Bilateral decreased air entry basally. Nonlabored breathing. No rhonchi. No wheezing. ABDOMEN: Soft, obese. Bowel sounds present. INDUSTRIAL PHOTOGRAPHER: Awake, alert, oriented, x3. No focal deficits. EXTREMITIES: Bilateral lower extremity venous stasis changes with discoloration. No clubbing or cyanosis. PSYCHIATRIC: Cooperative. EXTREMITIES: Bilateral lower extremity, trace edema. LABORATORY DATA: Reviewed. WBC 9.4, hemoglobin 12.6, platelets 168. Sodium 143, potassium 4.3, chloride 104, bicarb is 24. BUN 63, creatinine 2.12. Calcium 9.4. ASSESSMENT: 1. Shortness of breath secondary to acute on chronic congestive heart failure, diastolic dysfunction. 2. Morbid obesity with restrictive lung disease. 3. Obstructive sleep apnea on CPAP at home. 4. Chronic obstructive pulmonary disease with mild exacerbation. 5. Acute on chronic kidney disease, stage III secondary to diuresis. 6. Chronic kidney disease Stage III secondary to nephrosclerosis and possible cardiorenal. 7. Atrial flutter/atrial fibrillation, on anticoagulation with Xarelto, changed to Eliquis as per cardiology recommendations. 8. Hypothyroidism. 9. Hyperlipidemia. 10. Morbid obesity. 11. Hypertension. 12. Deep venous thrombosis prophylaxis. ( ) the patient is already on Eliquis. DISCUSSION AND PLAN: Patient will be continued on IV diuresis, and continue with steroids, change to p.o. Follow up renal function and further recommendations based on the clinical course. Cardiology and nephrology is on board.
--- NOTE | 2016-09-07 11:54 | PN ---
DATE OF SERVICE: 09/06/2016 INTERVAL HISTORY: Mr. Cerna is 46-year-old male with a known history of morbid obesity and restrictive lung disease and CKD stage III and CHF with diastolic dysfunction, who was admitted to the hospital in worsening shortness of breath, currently being treated for acute CHF and COPD exacerbation and diastolic dysfunction. The patient developed acute kidney injury on top of chronic kidney disease, stage III, most likely due to diuresis, possibly cardiorenal. Otherwise did improve symptomatically. Shortness of breath is much improved. Patient will be followed on renal function tomorrow. Anticipate discharge in the next 24 hours with more clinical improvement. Nephrology and Cardiology onboard. Anticoagulation in the form of Eliquis for atrial fibrillation. REVIEW OF SYSTEMS: CONSTITUTIONAL: No fever. No chills. RESPIRATORY: No cough or sputum production. CARDIOVASCULAR: No chest pain or shortness of breath. ABDOMEN: No nausea or abdominal pain. GENITOURINARY: Negative. ENDOCRINE: Negative. PSYCHIATRY: Negative. SKIN: Negative. MUSCULOSKELETAL: Negative. All other fourteen point review of systems negative except as above. CURRENT MEDICATIONS: Reviewed. PHYSICAL EXAMINATION: A 46-year-old male lying in bed comfortably, awake, alert and oriented x3, appears in no apparent distress. VITALS: Blood pressure is 122/77, pulse is 71, respirations 22, temperature afebrile, pulse ox 93% on 2-L nasal cannula. HEENT: Atraumatic, normocephalic. Neck is supple. No JVD. CVS: S1, S2 heard. No murmurs, no gallop. LUNGS: Bilateral diminished air entry bilaterally. No wheezing. Nonlabored breathing. ABDOMEN: Soft. Bowel sounds are present. LABOR TRAINER: Awake, alert, oriented x3. No focal deficits. EXTREMITIES: Bilateral lower extremity trace edema and venostasis changes ( ). No clubbing or cyanosis. PSYCHIATRIC: Cooperative. LABORATORY DATA: Reviewed. IMPRESSION: 1. Acute on chronic congestive heart failure with diastolic dysfunction. 2. Restrictive lung disease with morbid obesity. 3. Obstructive sleep apnea on CPAP at home. 4. Nonoliguric acute kidney injury most likely prerenal with diuresis. 5. Chronic kidney disease stage III secondary to nephrosclerosis and possible cardiorenal. 6. Atrial fibrillation, rate controlled. Currently on anticoagulation with Eliquis, changed from Xarelto. 7. Hypothyroidism. 8. Hyperlipidemia. 9. Morbid obesity. 10. Hypertension. 11. DVT prophylaxis. Patient is already on Eliquis. DISCUSSION AND PLAN: Patient will be continued on diuresis. Methylprednisolone has been changed to p.o. and continue to follow renal function tomorrow. Anticipate discharge in the next 24-hours with more clinical improvement. Otherwise will continue with the current management.
[2016-09-07] MEDS: FOLIC ACID 1 MG TAB PO SCH (13:05)
[2016-09-07 15:44] VITALS: BP 116/71; TEMP 97.6
[2016-09-07 15:54] VITALS: RESP 18
[2016-09-07 16:39] VITALS: PULSE 84
[2016-09-07 17:11] LABS: Glucose,Whole Blood 220 mg/dL (75-99)
--- NOTE | 2016-09-08 22:00 | DS ---
DATE OF ADMISSION: 09/03/2016 DATE OF DISCHARGE: 09/07/2016 DISCHARGE DIAGNOSES: 1. Acute on chronic congestive heart failure with diastolic dysfunction improved with diuresis. 2. Restricted lung disease with morbid obesity. 3. Obstructive sleep apnea on CPAP at home. 4. Nonoliguric acute kidney injury, most likely prerenal with diuresis improved now. 5. Chronic kidney disease Stage III secondary to nephrosclerosis as well as cardiorenal syndrome. 6. Atrial fibrillation. Rate controlled now. Anticoagulation has been changed from Xarelto to Eliquis as per cardiology recommendations. 7. Hypothyroidism. 8. Hyperlipidemia. 9. Morbid obesity. 10. Hypertension. 11. Deep venous thrombosis. Patient is already on Eliquis. HOSPITAL COURSE: Mr. Cerna is a 46 -year-old male with known history of multiple medical problems and comorbid conditions as above who was admitted to the hospital with worsening shortness of breath and chest pain. Patient was treated for acute congestive heart failure exacerbation with diastolic dysfunction and possible underlying COPD . The patient was continued on breathing treatments and steroids as well and steroid dose has been tapered to p.o. prednisone and patient was treated with IV Lasix and did improve clinically. The patient developed acute kidney injury, most likely prerenal with diuresis which improved after hemodynamically stability. Patient was seen by nephrology and cardiology. Renal function is improving now. Otherwise, breathing status is much improved and the patient is being discharged home in stable condition. Follow with the primary care physician in one to two days. Otherwise, patient is stable to be discharged home. DISCHARGE PHYSICAL EXAMINATION: A 46-year-old male lying in bed, morbid obese, alert and oriented x3. No apparent distress. VITALS: Blood pressure is 116/71, pulse is 67. Respiratory rate 20, temperature afebrile, pulse ox 91% on 2 liters nasal cannula. Laboratory data reviewed WBC ( ), BUN 67, creatinine 1.9. Discharge physical examination done. Discharge medications include: 1. Loratadine 10 milligrams p.o. daily. 2. Zoloft 100 milligrams p.o. q.h.s. 3. Plavix 75 mg p.o. daily. 4. Nitroglycerin sublingual 0.4 q.5 minutes p.r.n. for chest pain. 5. Atorvastatin 80 mg p.o. at bedtime. 6. Folic acid 1 mg p.o. b.i.d. 7. Levothyroxine 137 mcg p.o. in the morning. 8. Symbicort 2 puffs b.i.d. 9. Metoprolol tartrate 100 mg p.o. b.i.d. 10. Cardizem CD 240 mg p.o. daily. 11. Colace 100 mg p.o. b.i.d. p.r.n. for constipation. 12. Duoneb ( ) inhalation q.i.d. 13. Eliquis 5 mg p.o. b.i.d. 14. Lasix 40 mg p.o. b.i.d. 15. Prednisone 40 mg p.o. daily for 3 more days. Activity as tolerated. Heart healthy diet. Follow with Dr. Aguilar Bautista in 1 to 2 days. [facility]. Follow-up with Dr. Turcios in 2 weeks in nephrology clinic. Home with home health care services. Activity as tolerated. Heart healthy and fluid restricted diet, 1.2 to 1.5 L per day.
== END 2016-09-07 18:42 | disposition home health service (06) | DRG 291 ==
LOC: EC 17:46 → 3OBS 18:19 → OBSVTOIN 09-03 09:48 → 4MS4W 09-05 09:10
PROVIDERS: ADMIT Hospitalist; ATTEND Hospitalist
DX: I13.0 Hypertensive heart and chronic kidney disease with heart failure and stage 1 through stage 4 chronic kidney disease, or unspecified chronic kidney disease (principal); I50.33 Acute on chronic diastolic (congestive) heart failure; J96.01 Acute respiratory failure with hypoxia; N17.9 Acute kidney failure, unspecified; I48.92 Unspecified atrial flutter; J44.1 Chronic obstructive pulmonary disease with (acute) exacerbation; E66.01 Morbid (severe) obesity due to excess calories; E03.9 Hypothyroidism, unspecified; E78.5 Hyperlipidemia, unspecified; F17.200 Nicotine dependence, unspecified, uncomplicated; G47.33 Obstructive sleep apnea (adult) (pediatric); I25.10 Atherosclerotic heart disease of native coronary artery without angina pectoris; I25.2 Old myocardial infarction; I48.2 Chronic atrial fibrillation; J45.909 Unspecified asthma, uncomplicated; J98.4 Other disorders of lung; N18.3 Chronic kidney disease, stage 3 (moderate); T50.2X5A Adverse effect of carbonic-anhydrase inhibitors, benzothiadiazides and other diuretics, initial encounter; Z79.01 Long term (current) use of anticoagulants; Z79.02 Long term (current) use of antithrombotics/antiplatelets; Z79.899 Other long term (current) drug therapy; Z86.718 Personal history of other venous thrombosis and embolism; Z88.1 Allergy status to other antibiotic agents; Z88.0 Allergy status to penicillin; Z91.11 Patient's noncompliance with dietary regimen; Z95.5 Presence of coronary angioplasty implant and graft
CPT/HCPCS: 36415; 71020; 76770; 80048; 80053; 81003; 82550; 82553; 83036; 83735; 83880; 84484; 85025; 85027; 85610; 85730; 87040; 93005; 94640; 94644; 94760; 96365; 96366; 96375; 96376; 99285

== ENCOUNTER 2017-01-31 10:11 | Inpatient (IN) | payer OTHER ==
[2017-01-31] MEDS ORDERED: methylPREDNISolone SOD SUCCI 125 MG/2 ML VIAL IV STA (10:53)
[2017-01-31] MEDS ORDERED: IPRATROPIUM-ALBUTEROL 3 ML NEB INHALATION STA (10:53)
--- NOTE | 2017-01-31 10:56 | ED ---
General Adult HPI - General Chief complaint: Shortness of Breath Stated complaint: diff breathing Time Seen by Provider: 01/31/17 10:20 Source: patient, RN notes reviewed Mode of arrival: wheelchair Limitations: no limitations - History of Present Illness Initial comments: This is a 46-year-old male who presents emergency Department complaining of difficulty breathing. Patient states he has a past medical history significant for COPD as well as congestive heart failure heart attacks and high blood pressure. Patient states started having difficulty breathing about a week ago but is gotten progressively worse we decided to come in today because he could not even get up and move around without pain treatment short of breath. Patient denies any fever chills or productive cough. Patient denies any chest pain or palpitations. Patient denies any syncopal episode or near syncopal episode. Patient denies any abdominal pain patient denies nausea vomiting diarrhea. - Related Data Home Medications Medication Instructions Recorded Confirmed Loratadine [Claritin] 10 mg PO DAILY 10/19/13 01/31/17 Sertraline [Zoloft] 100 mg PO HS 10/19/13 01/31/17 Atorvastatin [Lipitor] 40 mg PO HS 03/25/15 01/31/17 Folic Acid 1 mg PO BID 03/25/15 01/31/17 Levothyroxine Sodium [Synthroid] 137 mcg PO QAM 03/25/15 01/31/17 Budesonide/Formoterol Fumarate 2 puff INHALATION RT-BID 08/01/16 01/31/17 [Symbicort 160-4.5 Mcg Inhaler] Metoprolol Tartrate [Lopressor] 100 mg PO BID 08/01/16 01/31/17 Albuterol Inhaler [Ventolin Hfa 2 puff INHALATION RT-Q4H PRN 01/31/17 01/31/17 Inhaler] Azithromycin [Zithromax Z-pack] See Taper PO DIRECTED 01/31/17 01/31/17 Ergocalciferol (Vitamin D2) 50,000 unit PO FR 01/31/17 01/31/17 [Vitamin D2] Ferrous Sulfate [Feosol] 325 mg PO BID 01/31/17 01/31/17 Furosemide [Lasix] 20 mg PO DAILY@1200 01/31/17 01/31/17 Furosemide [Lasix] 60 mg PO HS 01/31/17 01/31/17 Potassium Chloride [Klor-Con 20] 20 meq PO DAILY 01/31/17 01/31/17 Warfarin [Coumadin] 3.75 mg PO SUTUWETHFRSA 01/31/17 01/31/17 Warfarin [Coumadin] 7.5 mg PO MO 01/31/17 01/31/17 guaiFENesin 400 mg PO Q4H PRN 01/31/17 01/31/17 Previous Rx's Medication Instructions Recorded Nitroglycerin Sl Tabs [Nitrostat] 0.4 mg SUBLINGUAL Q5M PRN #30 tab 12/03/14 Diltiazem Cd [Cardizem CD] 240 mg PO DAILY #30 cap.er.24h 08/06/16 Ipratropium-Albuterol Nebulize 3 ml INHALATION RT-QID 30 Days 08/06/16 [Duoneb 0.5 mg-3 mg/3 ml Soln] Allergies Allergy/AdvReac Type Severity Reaction Status Date / Time adhesive Allergy "PLASTIC Verified 01/31/17 11:56 TAPE PEELS SKIN,PAPER TAPE IS OK" Cephalosporins Allergy Unknown Verified 01/31/17 11:56 linezolid Allergy Unknown Verified 01/31/17 11:56 penicillin G Allergy Rash/Hives Verified 01/31/17 11:56 Review of Systems ROS Statement: Those systems with pertinent positive or pertinent negative responses have been documented in the HPI. ROS Other: All systems not noted in ROS Statement are negative. Past Medical History Past Medical History: Atrial Fibrillation, Asthma, Chest Pain / Angina, Heart Failure, COPD, Deep Vein Thrombosis (DVT), Hyperlipidemia, Hypertension, Myocardial Infarction ([place]), Skin Disorder, Thyroid Disorder, Vascular Disorder Additional Past Medical History / Comment(s): Morbidly obese, COPD, bronchial asthma, coronary artery disease, multiple abdominal surgeries for a hiatal hernia that was complicated by prolonged hospitalization and prolonged ventilator dependent respiratory failure requiring a tracheostomy tube insertion , seasonal by medical ALLERGIES, diverticular disease, chronic anemia, previous history of DVT of the right lower extremity and current Doppler is showing a chronic clot in his right leg, eczema, hypothyroid, chronic anxiety/depression. Last Myocardial Infarction Date:: History of Any Multi-Drug Resistant Organisms: MRSA Date of last positivie culture/infection: 02/01/15 MDRO Source:: Abdomen Past Surgical History: Bowel Resection, Heart Catheterization With Stent, Hernia Repair Additional Past Surgical History / Comment(s): colonoscopy, heart stents x 3, 10 --15 heart cath with stent to circ, stomach mass removed with colostomy and colostomy reversal (removed a foot of pts colon)-2003, hernia repair with skin grafts and 2 fistula repairs (hospitalized for 1 year @[facility])-2010 Past Anesthesia/Blood Transfusion Reactions: Motion Sickness Additional Past Anesthesia/Blood Transfusion Reaction / Comment(s): FATHER RECEIVED HEPATITIS FROM BLOOD TRANSFUSION Date of Last Stent Placement:: 03/28/2015 Past Psychological History: Depression Smoking Status: Former smoker Past Alcohol Use History: None Reported Past Drug Use History: None Reported - Past Family History Mother Family Medical History: Osteoarthritis (OA), Pneumonia Additional Family Medical History / Comment(s): osteoporosis. arthroscopy surgery for knee Father Family Medical History: Liver Disease, Renal Disease Additional Family Medical History / Comment(s): triple heart bypass. liver transplant. aortic aneursym General Exam - General Exam Comments Initial Comments: GENERAL: Patient is well-developed and well-nourished. Patient is nontoxic and well- hydrated and is in mild distress. ENT: Neck is soft and supple. No significant lymphadenopathy is noted. Oropharynx is clear. Moist mucous membranes. Neck has full range of motion without eliciting any pain. EYES: The sclera were anicteric and conjunctiva were pink and moist. Extraocular movements were intact and pupils were equal round and reactive to light. Eyelids were unremarkable. PULMONARY: Patient has diminished breath sounds with expiratory wheezing CARDIOVASCULAR: Patient's heart beat is irregular. ABDOMEN: Soft and nontender with normal bowel sounds. No palpable organomegaly was noted. There is no palpable pulsatile mass. SKIN: Skin is clear with no lesions or rashes and otherwise unremarkable. NEUROLOGIC: Patient is alert and oriented x3. Cranial nerves II through XII are grossly intact. Motor and sensory are also intact. Normal speech, volume and content. Symmetrical smile. MUSCULOSKELETAL: Normal extremities with adequate strength and full range of motion. No lower extremity swelling or edema. No calf tenderness. LYMPHATICS: No significant lymphadenopathy is noted PSYCHIATRIC: Normal psychiatric evaluation. Normal interpersonal interactions appears functionally intact in deals appropriately with others. No signs of depression. Limitations: no limitations Course Vital Signs 01/31/17 01/31/17 01/31/17 10:17 10:48 11:32 Temperature 99.9 F H Pulse Rate 87 84 76 Respiratory 26 H 24 Rate Blood Pressure 123/78 117/78 O2 Sat by Pulse 93 L 95 Oximetry 01/31/17 01/31/17 01/31/17 11:47 11:50 12:58 Temperature 98.4 F Pulse Rate 82 82 81 Respiratory 23 24 Rate Blood Pressure 110/61 121/71 O2 Sat by Pulse 98 95 Oximetry 01/31/17 13:15 Temperature Pulse Rate 77 Respiratory 22 Rate Blood Pressure 123/55 O2 Sat by Pulse 95 Oximetry Medical Decision Making - Medical Decision Making EKG shows atrial fibrillation at 80 bpm QRS is 94 Q-T intervals 414 QTC is 477 per patient's EKG shows no ST segment elevation or depression or T wave normalities are noted. Patient's chest x-ray shows pulmonary edema. Patient is resting more comfortably and states he feels better after he received some Lasix and a breathing treatment. Patient's pulse ox on room air is in the low 80s I spoke with Dr. Rubi he agreed to admit the patient admitted the patient and wrote admitting orders. I continued Lasix and Nitropaste on the floor. - Lab Data Result diagrams: 01/31/17 10:59 01/31/17 10:59 Lab Results 01/31/17 01/31/17 01/31/17 Range/Units 10:59 10:59 10:59 WBC 8.4 (3.8-10.6) k/uL RBC 4.82 (4.30-5.90) m/uL Hgb 12.5 L (13.0-17.5) gm/dL Hct 39.8 (39.0-53.0) % MCV 82.6 (80.0-100.0) fL MCH 26.0 (25.0-35.0) pg MCHC 31.5 (31.0-37.0) g/dL RDW 19.4 H (11.5-15.5) % Plt Count 206 (150-450) k/uL Neutrophils % 80 % Lymphocytes % 8 % Monocytes % 5 % Eosinophils % 4 % Basophils % 1 % Neutrophils # 6.7 (1.3-7.7) k/uL Lymphocytes # 0.7 L (1.0-4.8) k/uL Monocytes # 0.5 (0-1.0) k/uL Eosinophils # 0.3 (0-0.7) k/uL Basophils # 0.1 (0-0.2) k/uL Hypochromasia Slight Poikilocytosis Slight Anisocytosis Slight Microcytosis Slight PT (9.0-12.0) sec INR (<1.2) APTT (22.0-30.0) sec Sodium 141 (137-145) mmol/L Potassium 3.6 (3.5-5.1) mmol/L Chloride 105 (98-107) mmol/L Carbon Dioxide 26 (22-30) mmol/L Anion Gap 10 mmol/L BUN 24 H (9-20) mg/dL Creatinine 1.63 H (0.66-1.25) mg/dL Est GFR (MDRD) Af Amer 56 (>60 ml/min/1.73 sqM) Est GFR (MDRD) Non-Af 46 (>60 ml/min/1.73 sqM) Glucose 139 H (74-99) mg/dL Calcium 8.5 (8.4-10.2) mg/dL Total Bilirubin 0.7 (0.2-1.3) mg/dL AST 21 (17-59) U/L ALT 24 (21-72) U/L Alkaline Phosphatase 94 (38-126) U/L Total Creatine Kinase 67 (55-170) U/L CK-MB (CK-2) 1.0 (0.0-2.4) ng/mL CK-MB (CK-2) Rel Index 1.5 Troponin I <0.012 (0.000-0.034) ng/mL NT-Pro-B Natriuret Pep pg/mL Total Protein 6.6 (6.3-8.2) g/dL Albumin 3.4 L (3.5-5.0) g/dL 01/31/17 01/31/17 Range/Units 10:59 10:59 WBC (3.8-10.6) k/uL RBC (4.30-5.90) m/uL Hgb (13.0-17.5) gm/dL Hct (39.0-53.0) % MCV (80.0-100.0) fL MCH (25.0-35.0) pg MCHC (31.0-37.0) g/dL RDW (11.5-15.5) % Plt Count (150-450) k/uL Neutrophils % % Lymphocytes % % Monocytes % % Eosinophils % % Basophils % % Neutrophils # (1.3-7.7) k/uL Lymphocytes # (1.0-4.8) k/uL Monocytes # (0-1.0) k/uL Eosinophils # (0-0.7) k/uL Basophils # (0-0.2) k/uL Hypochromasia Poikilocytosis Anisocytosis Microcytosis PT 26.1 H (9.0-12.0) sec INR 2.7 H (<1.2) APTT 41.0 H (22.0-30.0) sec Sodium (137-145) mmol/L Potassium (3.5-5.1) mmol/L Chloride (98-107) mmol/L Carbon Dioxide (22-30) mmol/L Anion Gap mmol/L BUN (9-20) mg/dL Creatinine (0.66-1.25) mg/dL Est GFR (MDRD) Af Amer (>60 ml/min/1.73 sqM) Est GFR (MDRD) Non-Af (>60 ml/min/1.73 sqM) Glucose (74-99) mg/dL Calcium (8.4-10.2) mg/dL Total Bilirubin (0.2-1.3) mg/dL AST (17-59) U/L ALT (21-72) U/L Alkaline Phosphatase (38-126) U/L Total Creatine Kinase (55-170) U/L CK-MB (CK-2) (0.0-2.4) ng/mL CK-MB (CK-2) Rel Index Troponin I (0.000-0.034) ng/mL NT-Pro-B Natriuret Pep 3820 pg/mL Total Protein (6.3-8.2) g/dL Albumin (3.5-5.0) g/dL Critical Care Time Critical Care Time: Yes Total Critical Care Time: 35 Disposition Clinical Impression: Acute pulmonary edema Disposition: ADMITTED IP TO THIS HOSP Referrals: Aguilar Bautista DO [Primary Care Provider] - 1-2 days Time of Disposition: 13:20
[2017-01-31 11:24] LABS: Anisocytosis Slight; Basophils # (A) 0.1 k/uL (0-0.2); Basophils % (A) 1 %; CHCM 32.8; Eosinophils # (A) 0.3 k/uL (0-0.7); Eosinophils % (A) 4 %; HCT 39.8 % (39.0-53.0); HDW 3.96; HGB 12.5 gm/dL (13.0-17.5); Hypochromasia Slight; Luc # (Auto) 0.13; Luc % (Auto) 2; Lymphocytes # (A) 0.7 k/uL (1.0-4.8); Lymphocytes % (A) 8 %; MCHC 31.5 g/dL (31.0-37.0); MCV 82.6 fL (80.0-100.0); Mean Platelet Volume 8.3; Microcytosis Slight; Monocytes # (A) 0.5 k/uL (0-1.0); Monocytes % (A) 5 %; Neutrophils # (A) 6.7 k/uL (1.3-7.7); Neutrophils % (A) 80 %; Poikilocytosis Slight; RBC 4.82 m/uL (4.30-5.90); RDW 19.4 % (11.5-15.5); WBC 8.4 k/uL (3.8-10.6); WBC (Perox) 7.98
[2017-01-31 11:27] LABS: INR 2.7 (<1.2); Prothrombin Time 26.1 sec (9.0-12.0)
[2017-01-31 11:29] LABS: Calcium 8.5 mg/dL (8.4-10.2); Potassium 3.6 mmol/L (3.5-5.1); Total Bilirubin 0.7 mg/dL (0.2-1.3); Total Protein 6.6 g/dL (6.3-8.2)
[2017-01-31 11:35] LABS: Creatine Kinase 67 U/L (55-170)
--- NOTE | 2017-01-31 11:42 | XR ---
EXAMINATION TYPE: XR chest 2V DATE OF EXAM: 01/31/2017 COMPARISON: 09/02/2016 HISTORY: 46-year-old male difficulty in breathing TECHNIQUE: AP and lateral views FINDINGS: The heart is mildly enlarged. Diffuse interstitial and vascular prominence. Trace effusions are prese nt. IMPRESSION: 1. Correlate for CHF with pulmonary vascular congestion/early interstitial edema. 2. Trace pleural effusions.
[2017-01-31 11:47] LABS: Troponin I <0.012 ng/mL (0.000-0.034)
[2017-01-31] MEDS ORDERED: FUROSEMIDE 10 MG/ML 4 ML VIAL IV STA (12:10)
[2017-01-31] MEDS ORDERED: NITROGLYCERIN OINT 1 INCH/GM PACKET TOPICAL STA (12:11)
[2017-01-31] MEDS: FUROSEMIDE 10 MG/ML 4 ML VIAL IV SCH ×2 (15:45→23:58)
[2017-01-31] MEDS ORDERED: NITROGLYCERIN SL TABS 0.4 MG TAB SUBLINGUAL PRN (16:02)
[2017-01-31] MEDS ORDERED: guaiFENesin 600 MG TABLET.ER PO PRN (16:02)
[2017-01-31] MEDS ORDERED: HYDROcodone/APAP 7.5-325MG 1 EACH TAB PO PRN (16:49)
[2017-01-31] MEDS: NITROGLYCERIN OINT 1 INCH/GM PACKET TOPICAL SCH ×2 (16:54→23:08)
[2017-01-31] MEDS: WARFARIN 7.5 MG TAB PO SCH (16:58)
[2017-01-31] MEDS: POTASSIUM CHLORIDE ER 20 MEQ TAB.ER PO SCH (16:59)
[2017-01-31] MEDS: FERROUS SULFATE 325 MG TAB PO SCH (16:59)
[2017-01-31] MEDS: METOPROLOL TARTRATE 50 MG TAB PO SCH (20:13)
[2017-01-31] MEDS: FOLIC ACID 1 MG TAB PO SCH (20:14)
[2017-01-31] MEDS: SERTRALINE 100 MG TAB PO SCH (20:14)
[2017-01-31] MEDS: ATORVASTATIN 40 MG TAB PO SCH (20:14)
[2017-01-31] MEDS: IPRATROPIUM-ALBUTEROL 3 ML NEB INHALATION SCH ×2 (20:59→23:47)
[2017-01-31] MEDS: SYMBICORT 160-4.5 MCG INHALER INHALATION SCH (20:59)
[2017-02-01] MEDS: HYDROcodone/APAP 7.5-325MG 1 EACH TAB PO PRN (00:22)
[2017-02-01] MEDS: HYDROmorphone 1 MG/ML 1 ML SYRINGE IVP PRN ×4 (01:30→21:05)
[2017-02-01] MEDS: IPRATROPIUM-ALBUTEROL 3 ML NEB INHALATION SCH ×5 (03:38→20:56)
[2017-02-01 05:50] LABS: Anisocytosis Slight; Basophils % (A) 0 %; CH 26.7; CHCM 31.9; Eosinophils % (A) 0 %; HCT 39.6 % (39.0-53.0); HDW 3.86; HGB 12.5 gm/dL (13.0-17.5); Hypochromasia Moderate; Luc # (Auto) 0.07; Luc % (Auto) 1; Lymphocytes # (A) 0.5 k/uL (1.0-4.8); Lymphocytes % (A) 8 %; MCH 26.5 pg (25.0-35.0); MCHC 31.5 g/dL (31.0-37.0); Mean Platelet Volume 8.2; Monocytes # (A) 0.2 k/uL (0-1.0); Monocytes % (A) 3 %; Neutrophils # (A) 6.2 k/uL (1.3-7.7); Neutrophils % (A) 88 %; Poikilocytosis Slight; RBC 4.72 m/uL (4.30-5.90); WBC (Perox) 6.71
[2017-02-01 06:05] LABS: Potassium 4.1 mmol/L (3.5-5.1)
[2017-02-01] MEDS: FERROUS SULFATE 325 MG TAB PO SCH ×2 (06:54→16:29)
[2017-02-01] MEDS: LEVOTHYROXINE 137 MCG TAB PO SCH (06:54)
[2017-02-01] MEDS: NITROGLYCERIN OINT 1 INCH/GM PACKET TOPICAL SCH ×4 (07:43→19:59)
[2017-02-01] MEDS: FUROSEMIDE 10 MG/ML 4 ML VIAL IV SCH ×3 (07:48→23:11)
[2017-02-01] MEDS: FOLIC ACID 1 MG TAB PO SCH ×2 (07:48→19:58)
[2017-02-01] MEDS: POTASSIUM CHLORIDE ER 20 MEQ TAB.ER PO SCH (07:48)
[2017-02-01] MEDS: METOPROLOL TARTRATE 50 MG TAB PO SCH ×2 (07:48→19:58)
[2017-02-01] MEDS: SYMBICORT 160-4.5 MCG INHALER INHALATION SCH ×2 (08:48→20:56)
[2017-02-01] MEDS ORDERED: ERGOCALCIFEROL 50,000 UNIT CAP PO SCH (09:00)
--- NOTE | 2017-02-01 10:20 | HP ---
CHIEF COMPLAINT: Shortness of breath and cough. HISTORY OF PRESENT ILLNESS: A 46-year-old gentleman with a past medical history of asthma, history atrial fibrillation, history of COPD, DVT, history of myocardial infarction being followed by Dr. Bautista in the outpatient setting is complaining of shortness of breath. Patient had increasing shortness of breath and cough. The patient also had high blood pressure. Patient also had ( ) about one week and because of lack of improvement patient came to [facility] and admitted for further evaluation and treatment. Chest x-ray showed also evidence of CHF. White count is normal. NT-pro-BNP is 3820. There is no history of any fever, rigors. No history of headache, loss of consciousness or seizures. PAST MEDICAL HISTORY: History of atrial fibrillation, COPD, CHF. Medications prior to admission include home medications are: 1. Guaifenesin 400 mg q.4 p.r.n. 2. Lipitor 40 mg q.h.s. 3. Zithromax p.r.n. 4. Klor-Con 20 mEq p.r.n. 5. Coumadin 7.5 mg p.o. on Saturday, 3.75 mg Saturday, Saturday, Saturday, , Saturday, Saturday. 6. Iron sulfate 325 mg p.o. b.i.d. 7. Ventolin 2 puffs q.4 p.r.n. 8. Vitamin D2, 50,000, Saturday. 9. Folic acid 1 mg p.o. b.i.d. 10. Cardizem CD 240 mg p.o. daily. 11. Symbicort 160/4.5 two puffs b.i.d. 12. Lopressor 100 mg p.o. b.i.d. 13. Claritin 10 mg daily. 14. Synthroid 137 mcg p.o. q.a.m. 15. DuoNeb q.i.d. 16. Lasix 60 mg q.h.s. 17. Lasix 20 mg daily. 18. Zoloft 100 mg q.h.s. 19. Nitrostat 0.4 sublingual p.r.n. Allergies are ADHESIVE, CEPHALOSPORIN, LINEZOLID, PENICILLIN. FAMILY HISTORY: History of DJD, history of pneumonia, history of osteoporosis. SOCIAL HISTORY: Previous history of smoking. No history of current smoker or alcohol intake. REVIEW OF SYSTEMS: ENT: No diminished hearing or diminished vision. CARDIOVASCULAR: As mentioned earlier. RESPIRATORY: As mentioned earlier. GI: No nausea. : No dysuria. NERVOUS SYSTEM: No numbness or weakness. ALLERGY/IMMUNOLOGY: No asthma or hayfever. MUSCULOSKELETAL: As mentioned earlier. HEMATOLOGY/ONCOLOGY: No history of anemia. ENDOCRINE: No history diabetes. CONSTITUTIONAL: As mentioned earlier. DERMATOLOGY: Negative. RHEUMATOLOGY: Negative. PSYCHIATRY: As mentioned earlier. PHYSICAL EXAMINATION: Patient is alert and oriented x3. Pulse 76, blood pressure 117/55, respirations 20, temperature 98 degrees, pulse ox 96% on 2 L. HEENT: Conjunctivae normal. NECK: No jugular venous distention. CARDIOVASCULAR: S1 and S2 muffled. RESPIRATORY: Breath sounds diminished at the bases. A few scattered rhonchi and crackles. Expiratory wheezing also present. ABDOMEN: Soft, obese, nontender. No mass palpable. LEGS: Bilateral leg edema. NERVOUS SYSTEM: Higher function mentioned earlier.Moves all 4 limbs. No focal motor deficits. LYMPHATICS: No lymphadenopathy of the neck, axillae or groin. SKIN: No ulcers, rashes or bleeding. Labs are hemoglobin 12.5. INR is 2.7. Creatinine 1.63. ASSESSMENT: 1. Shortness of breath, possibly multifactorial, congestive heart failure acute exacerbation as well as chronic obstructive pulmonary disease acute exacerbation with acute purulent tracheobronchitis. 2. Increased creatinine with chronic kidney disease, stage III. 3. History of asthma, chronic obstructive pulmonary disease. 4. History of deep venous thrombosis. 5. Hypertension. 6. Hyperlipidemia. 7. Coumadin monitoring. 8. Morbid obesity with a body mass index of 59.4. 9. History of coronary artery disease and stent. RECOMMENDATIONS AND DISCUSSION: In this 46-year-old gentleman who presented with multiple complex medical issues, at this time i would recommend to continue current medications and symptomatic treatment. I would recommend IV Lasix, bronchodilators and IV steroids. Empiric antibiotics. Monitor Coumadin closely. Guarded prognosis with multiple complex medical issues. Further recommendations will follow. I discussed with the patient, understands and agrees. DESIRE
--- NOTE | 2017-02-01 11:07 | P.CRDCN ---
History of Present Illness Consult date: 02/01/17 Reason for Consult (text): Acute Pulmonary Edema Chief complaint: shortness of breath, productive cough History of present illness: This is a pleasant 46-year-old gentleman with a history of paroxysmal atrial fibrillation, on Coumadin, hypertension, hyperlipidemia, previous NE with prior stent placements, COPD, chronic renal failure, and obesity. Presented to the emergency department with complaints of progressively worsening shortness of breath over the last week as well as a productive cough. Chest x-ray showed CHF with pulmonary vascular congestion/early interstitial edema with trace pleural effusions. His BNP was elevated at 3820. BUN and creatinine are elevated at 29 and 1.7 respectively. Less than 0.012. Most recent echocardiogram from May 2016 showed a low-normal LV systolic function with an ejection fraction between 50-55%. He is currently on Lasix 40 mg IV push every 8 hours, according to the patient he was on oral Lasix 60 mg every morning , 20 mg at noon and 60 mg at bedtime. Upon examination, patient is resting comfortably in bed and is complaining of some lower extremity edema that appears to be chronic, says his breathing is a little bit better but he continues with productive cough. Past Medical History Past Medical History: Atrial Fibrillation, Asthma, Chest Pain / Angina, Heart Failure, COPD, Deep Vein Thrombosis (DVT), Hyperlipidemia, Hypertension, Myocardial Infarction (NE), Skin Disorder, Sleep Apnea/CPAP/BIPAP, Thyroid Disorder, Vascular Disorder Additional Past Medical History / Comment(s): Morbidly obese, COPD, bronchial asthma, coronary artery disease, multiple abdominal surgeries for a hiatal hernia that was complicated by prolonged hospitalization and prolonged ventilator dependent respiratory failure requiring a tracheostomy tube insertion , seasonal by medical ALLERGIES, diverticular disease, chronic anemia, previous history of DVT of the right lower extremity and current Doppler is showing a chronic clot in his right leg, eczema, hypothyroid, chronic anxiety/depression. Last Myocardial Infarction Date:: History of Any Multi-Drug Resistant Organisms: MRSA Date of last positivie culture/infection: 02/01/15 MDRO Source:: Abdomen Past Surgical History: Bowel Resection, Heart Catheterization With Stent, Hernia Repair Additional Past Surgical History / Comment(s): colonoscopy, heart stents x 3, -05-31 heart cath with stent to circ, stomach mass removed with colostomy and colostomy reversal (removed a foot of pts colon)-2003, hernia repair with skin grafts and 2 fistula repairs (hospitalized for 1 year @[facility])-2010 Past Anesthesia/Blood Transfusion Reactions: Motion Sickness Additional Past Anesthesia/Blood Transfusion Reaction / Comment(s): FATHER RECEIVED HEPATITIS FROM BLOOD TRANSFUSION Date of Last Stent Placement:: 03/28/2015 Smoking Status: Former smoker - Past Family History Mother Family Medical History: Osteoarthritis (OA), Pneumonia Additional Family Medical History / Comment(s): osteoporosis. arthroscopy surgery for knee Father Family Medical History: Liver Disease, Renal Disease Additional Family Medical History / Comment(s): triple heart bypass. liver transplant. aortic aneursym Medications and Allergies Home Medications Medication Instructions Recorded Confirmed Type Loratadine [Claritin] 10 mg PO DAILY 10/19/13 01/31/17 History Sertraline [Zoloft] 100 mg PO HS 10/19/13 01/31/17 History Atorvastatin [Lipitor] 40 mg PO HS 03/25/15 01/31/17 History Folic Acid 1 mg PO BID 03/25/15 01/31/17 History Levothyroxine Sodium [Synthroid] 137 mcg PO QAM 03/25/15 01/31/17 History Budesonide/Formoterol Fumarate 2 puff INHALATION RT-BID 08/01/16 01/31/17 History [Symbicort 160-4.5 Mcg Inhaler] Metoprolol Tartrate [Lopressor] 100 mg PO BID 08/01/16 01/31/17 History Albuterol Inhaler [Ventolin Hfa 2 puff INHALATION RT-Q4H PRN 01/31/17 01/31/17 History Inhaler] Azithromycin [Zithromax Z-pack] See Taper PO DIRECTED 01/31/17 01/31/17 History Ergocalciferol (Vitamin D2) 50,000 unit PO FR 01/31/17 01/31/17 History [Vitamin D2] Ferrous Sulfate [Feosol] 325 mg PO BID 01/31/17 01/31/17 History Furosemide [Lasix] 20 mg PO DAILY@1200 01/31/17 01/31/17 History Furosemide [Lasix] 60 mg PO HS 01/31/17 01/31/17 History Potassium Chloride [Klor-Con 20] 20 meq PO DAILY 01/31/17 01/31/17 History Warfarin [Coumadin] 3.75 mg PO SUTUWETHFRSA 01/31/17 01/31/17 History Warfarin [Coumadin] 7.5 mg PO MO 01/31/17 01/31/17 History guaiFENesin 400 mg PO Q4H PRN 01/31/17 01/31/17 History Allergies Allergy/AdvReac Type Severity Reaction Status Date / Time adhesive Allergy "PLASTIC Verified 01/31/17 11:56 TAPE PEELS SKIN,PAPER TAPE IS OK" Cephalosporins Allergy Unknown Verified 01/31/17 11:56 linezolid Allergy Unknown Verified 01/31/17 11:56 penicillin G Allergy Rash/Hives Verified 01/31/17 11:56 Physical Exam Vitals: Vital Signs Temp Pulse Pulse Resp BP BP Pulse Ox 02/01/17 09:02 64 02/01/17 08:48 60 02/01/17 08:00 98.0 F 67 20 108/61 96 02/01/17 04:00 97.5 F L 85 20 105/57 95 02/01/17 00:00 97.3 F L 65 20 99/50 97 01/31/17 23:57 73 01/31/17 23:47 71 01/31/17 21:13 76 01/31/17 21:00 72 01/31/17 20:00 96.9 F L 86 20 133/62 96 01/31/17 16:00 98.0 F 76 20 117/55 96 01/31/17 13:15 77 22 123/55 95 01/31/17 12:58 98.4 F 81 24 121/71 95 01/31/17 11:50 82 23 110/61 98 01/31/17 11:47 82 01/31/17 11:32 76 01/31/17 10:48 84 24 117/78 95 Intake and Output 01/31/17 02/01/17 02/01/17 22:59 06:59 14:59 Intake Total 236 Balance 236 Intake: Oral 236 Other: Voiding Method Urinal Urinal Urinal # Voids 2 1 Weight 187.7 kg 180.1 kg PHYSICAL EXAMINATION: HEENT: Head is atraumatic, normocephalic. Pupils equal, round. Neck is supple. There is no elevated jugular venous pressure. HEART EXAMINATION: Heart sounds regular, S1 and S2 normal. No murmur or gallop heard. CHEST EXAMINATION: Lungs feel diminished air entry bilaterally. No chest wall tenderness is noted on palpation or with deep breathing. ABDOMEN: Soft, obese, nontender. Bowel sounds are heard. No organomegaly noted. EXTREMITIES: 1+ peripheral pulses with evidence of mild peripheral edema and bilateral lower leg discoloration. NEUROLOGIC patient is awake, alert and oriented x3. . Results 02/01/17 05:23 02/01/17 05:23 Cardiac Enzymes 01/31/17 01/31/17 Range/Units 10:59 10:59 AST 21 (17-59) U/L CK-MB (CK-2) 1.0 (0.0-2.4) ng/mL Troponin I <0.012 (0.000-0.034) ng/mL Coagulation 01/31/17 02/01/17 Range/Units 10:59 05:23 PT 26.1 H 29.0 H (9.0-12.0) sec APTT 41.0 H (22.0-30.0) sec CBC 01/31/17 02/01/17 Range/Units 10:59 05:23 WBC 8.4 7.0 (3.8-10.6) k/uL RBC 4.82 4.72 (4.30-5.90) m/uL Hgb 12.5 L 12.5 L (13.0-17.5) gm/dL Hct 39.8 39.6 (39.0-53.0) % Plt Count 206 204 (150-450) k/uL Comprehensive Metabolic Panel 01/31/17 02/01/17 Range/Units 10:59 05:23 Sodium 141 143 (137-145) mmol/L Potassium 3.6 4.1 (3.5-5.1) mmol/L Chloride 105 103 (98-107) mmol/L Carbon Dioxide 26 28 (22-30) mmol/L BUN 24 H 29 H (9-20) mg/dL Creatinine 1.63 H 1.70 H (0.66-1.25) mg/dL Glucose 139 H 146 H (74-99) mg/dL Calcium 8.5 9.0 (8.4-10.2) mg/dL AST 21 (17-59) U/L ALT 24 (21-72) U/L Alkaline Phosphatase 94 (38-126) U/L Total Protein 6.6 (6.3-8.2) g/dL Albumin 3.4 L (3.5-5.0) g/dL Current Medications Generic Name Dose Route Start Last Admin Trade Name Freq PRN Reason Stop Dose Admin Hydrocodone Bitart/Acetaminophen 1 each 01/31/17 23:49 02/01/17 00:22 [place] 7.5-325 PO 1 each Q6H PRN Administration Pain Albuterol/Ipratropium 3 ml 01/31/17 20:00 02/01/17 08:48 Duoneb 0.5 Mg-3 Mg/3 Ml Soln INHALATION 3 ml RT-Q4H ZURI Administration Atorvastatin Calcium 40 mg 01/31/17 21:00 01/31/17 20:14 Lipitor PO 40 mg HS ZURI Administration Budesonide/Formoterol Fumarate 2 puff 01/31/17 20:00 02/01/17 08:48 Symbicort 160-4.5 Mcg Inhaler INHALATION 2 puff RT-BID ZURI Administration Ergocalciferol 50,000 unit 02/01/17 09:00 02/01/17 09:44 Vitamin D2 PO 50,000 unit Fr@0900 ZURI Administration Ferrous Sulfate 325 mg 01/31/17 17:30 02/01/17 06:54 Feosol PO 325 mg BID-W/MEALS ZURI Administration Folic Acid 1 mg 01/31/17 21:00 02/01/17 07:48 Folic Acid PO 1 mg BID ZURI Administration Furosemide 40 mg 01/31/17 16:00 02/01/17 07:48 Lasix IV 40 mg Q8HR ZURI Administration Guaifenesin 600 mg 01/31/17 16:02 Mucinex PO Q12H PRN Congestion Hydromorphone HCl 0.5 mg 01/31/17 23:50 02/01/17 07:48 Dilaudid IVP 0.5 mg Q4HR PRN Administration Breakthrough Pain Levothyroxine Sodium 137 mcg 02/01/17 06:30 02/01/17 06:54 Synthroid PO 137 mcg DAILY@0630 ZURI Administration Metoprolol Tartrate 100 mg 01/31/17 21:00 02/01/17 07:48 Lopressor PO 100 mg BID ZURI Administration Nitroglycerin 1 inch 01/31/17 18:00 02/01/17 07:43 Nitro-Bid Oint TOPICAL Not Given QID ZURI Nitroglycerin 0.4 mg 01/31/17 16:02 Nitrostat SUBLINGUAL Q5M PRN Chest Pain Potassium Chloride 20 meq 01/31/17 16:15 02/01/17 07:48 K-Dur 20 PO 20 meq DAILY ZURI Administration Sertraline HCl 100 mg 01/31/17 21:00 01/31/17 20:14 Zoloft PO 100 mg HS ZURI Administration Warfarin Sodium 3.75 mg 01/31/17 18:00 01/31/17 16:58 Coumadin PO 3.75 mg [id number]@1800 ZURI Administration Warfarin Sodium 7.5 mg 02/04/17 18:00 Coumadin PO Mo@1800 ZURI Intake and Output 01/31/17 02/01/17 02/01/17 22:59 06:59 14:59 Intake Total 236 Balance 236 Intake: Oral 236 Other: Voiding Method Urinal Urinal Urinal # Voids 2 1 Weight 187.7 kg 180.1 kg 02/01/17 05:23 02/01/17 05:23 EKG Interpretations (text) Atrial fibrillation with controlled ventricular response Assessment and Plan Plan: Assessment and plan #1 acute on chronic congestive heart failure, most recent EF 50-55% #2 paroxysmal atrial fibrillation, anticoagulated on Coumadin #3 COPD #4 hypertension #5 morbid obesity #6 previous NE with stenting to the LAD and mid circumflex #7 chronic renal failure From material control analyst perspective, we'll obtain repeat 2-D echo with Doppler to assess LV systolic function. Cautiously diurese the patient. monitor daily weight, intake and output and renal function. Monitor INR and adjust Coumadin accordingly. Further recommendations to follow. CAMPUS MANAGER note has been reviewed, I agree with a documented findings and plan of care. Patient was seen and examined.
--- NOTE | 2017-02-01 11:42 | ECHOF ---
Referral Reason:pulmonary edema MEASUREMENTS -------- HEIGHT: 177.8 cm WEIGHT: 180.1 kg BP: 108/61 RVIDd: 3.3 cm (< 3.3) IVSd: 1.3 cm (0.6 - 1.1) LVIDd: 4.4 cm (3.9 - 5.3) LVPWd: 1.3 cm (0.6 - 1.1) IVSs: 2.0 cm LVIDs: 3.3 cm LVPWs: 2.0 cm LA Diam: 4.2 cm (2.7 - 3.8) LAESV Index (A-L): 43.96 ml/m Ao Diam: 3.5 cm (2.0 - 3.7) AV Cusp: 2.5 cm (1.5 - 2.6) MV EXCURSION: 18.134 mm (> 18.000) MV EF SLOPE: 68 mm/s (70 - 150) EPSS: 1.2 cm RAP: 5.00 mmHg RVSP: 38.43 mmHg FINDINGS -------- This was a technically difficult study with suboptimal views. The left ventricular size is normal. There is mild concentric left ventricular hypertrophy. Overall left ventricular systolic function is normal with, an EF between 55 - 60 %. The right ventricle is mildly enlarged. LA is severely dilated >40 ml/m2 The right atrium is normal in size. 1.5mg of Definity was utilized for enhancement of images The aortic valve is trileaflet and appears structurally normal. Mild mitral annular calcification present. Mild mitral regurgitation is present. Mild tricuspid regurgitation present. There is mild pulmonary hypertension. The right ventricular systolic pressure, as measured by Doppler, is 38.43mmHg. There is no pulmonic regurgitation present. The aortic root size is normal. There is no pericardial effusion. CONCLUSIONS -------- 1. This was a technically difficult study with suboptimal views. 2. Mild mitral regurgitation is present. 3. Mild tricuspid regurgitation present. 4. There is mild pulmonary hypertension. 5. The right ventricular systolic pressure, as measured by Doppler, is 38.43mmHg. 6. There is no pulmonic regurgitation present. 7. The aortic root size is normal. 8. There is no pericardial effusion. 9. The left ventricular size is normal. 10. There is mild concentric left ventricular hypertrophy. 11. The right ventricle is mildly enlarged. 12. LA is severely dilated >40 ml/m2 13. The right atrium is normal in size. 14. 1.5mg of Definity was utilized for enhancement of images 15. The aortic valve is trileaflet and appears structurally normal. 16. Mild mitral annular calcification present. TRANSITION SOCIAL WORKER: Mariella Antunez RDCS
[2017-02-01 14:43] VITALS: BMI 56.9
[2017-02-01] MEDS: WARFARIN 7.5 MG TAB PO SCH (18:31)
[2017-02-01] MEDS: ATORVASTATIN 40 MG TAB PO SCH (19:58)
[2017-02-01] MEDS ORDERED: IPRATROPIUM-ALBUTEROL 3 ML NEB INHALATION PRN (21:00)
[2017-02-01] MEDS: SERTRALINE 100 MG TAB PO SCH (21:30)
[2017-02-02] MEDS: HYDROmorphone 1 MG/ML 1 ML SYRINGE IVP PRN ×6 (00:53→21:09)
[2017-02-02] MEDS: HYDROcodone/APAP 7.5-325MG 1 EACH TAB PO PRN ×2 (03:31→15:47)
[2017-02-02] MEDS: FERROUS SULFATE 325 MG TAB PO SCH ×2 (06:30→17:00)
[2017-02-02] MEDS: LEVOTHYROXINE 137 MCG TAB PO SCH (06:30)
[2017-02-02] MEDS: SYMBICORT 160-4.5 MCG INHALER INHALATION SCH ×2 (08:36→19:04)
[2017-02-02] MEDS: IPRATROPIUM-ALBUTEROL 3 ML NEB INHALATION SCH ×4 (08:36→19:04)
[2017-02-02] MEDS: POTASSIUM CHLORIDE ER 20 MEQ TAB.ER PO SCH (09:14)
[2017-02-02] MEDS: METOPROLOL TARTRATE 50 MG TAB PO SCH ×2 (09:14→21:01)
[2017-02-02] MEDS: FUROSEMIDE 10 MG/ML 4 ML VIAL IV SCH ×3 (09:15→23:37)
[2017-02-02] MEDS: NITROGLYCERIN OINT 1 INCH/GM PACKET TOPICAL SCH ×4 (09:15→23:45)
--- NOTE | 2017-02-02 11:00 | P.PN ---
Subjective Principal diagnosis: Shortness of breath and productive cough This is a pleasant 46-year-old gentleman with a history of paroxysmal atrial fibrillation, on Coumadin, hypertension, hyperlipidemia, previous NH with prior stent placements, COPD, chronic renal failure, and obesity. Presented to the emergency department with complaints of progressively worsening shortness of breath over the last week as well as a productive cough. Chest x-ray showed CHF with pulmonary vascular congestion/early interstitial edema with trace pleural effusions. His BNP was elevated at 3820. BUN and creatinine are elevated at 29 and 1.7 respectively. Less than 0.012. Most recent echocardiogram from May 2016 showed a low-normal LV systolic function with an ejection fraction between 50-55%. He is currently on Lasix 40 mg IV push every 8 hours, according to the patient he was on oral Lasix 60 mg every morning , 20 mg at noon and 60 mg at bedtime. Upon examination, patient is resting comfortably in bed and is complaining of some lower extremity edema that appears to be chronic, says his breathing is a little bit better but he continues with productive cough. 02/02/2017 Patient seen and examined this morning, states he continues to have a productive cough of vega colored sputum. Complains of feeling exertionally short of breath. He is diuresing well on IV Lasix, weight appears to be unchanged. INR 3.0 today. BUN 29, creatinine 1.7. Objective - Vital Signs Vital signs: Vital Signs Temp 97.1 F L 02/02/17 08:00 Pulse 88 02/02/17 08:49 Resp 22 02/02/17 08:00 BP 101/57 02/02/17 08:00 Pulse Ox 91 L 02/02/17 04:00 Intake & Output 02/01/17 02/02/17 02/02/17 18:59 06:59 18:59 Intake Total 620 240 Output Total 900 1900 Balance -900 -1280 240 Weight 180.1 kg 180.6 kg Intake: IV 20 .9 20 Oral 600 240 Output: Urine 900 1900 Other: Voiding Method Urinal Urinal Urinal # Voids 3 - Exam PHYSICAL EXAMINATION: HEENT: Head is atraumatic, normocephalic. Pupils equal, round. Neck is supple. There is no elevated jugular venous pressure. HEART EXAMINATION: Heart sounds regular, S1 and S2 normal. No murmur or gallop heard. CHEST EXAMINATION: Lungs feel diminished air entry bilaterally. Fine wheezing heard. No chest wall tenderness is noted on palpation or with deep breathing. ABDOMEN: Soft, obese, nontender. Bowel sounds are heard. No organomegaly noted. EXTREMITIES: 1+ peripheral pulses with evidence of mild peripheral edema and bilateral lower leg discoloration. NEUROLOGIC patient is awake, alert and oriented x3. - Labs CBC & Chem 7: 02/01/17 05:23 02/01/17 05:23 Assessment and Plan Plan: Assessment and plan #1 acute on chronic diastolic congestive heart failure, echocardiogram with Doppler study revealed an ejection fraction of 55-60%. #2 paroxysmal atrial fibrillation, anticoagulated on Coumadin #3 COPD #4 hypertension #5 morbid obesity #6 previous NH with stenting to the LAD and mid circumflex #7 chronic renal failure #8 tracheobronchitis Plan From cardiology's perspective, we will continue to diurese the patient with IV Lasix. Continue to monitor intake and output along with daily weights.
[2017-02-02] MEDS: FOLIC ACID 1 MG TAB PO SCH ×2 (12:50→21:01)
[2017-02-02] MEDS: WARFARIN 7.5 MG TAB PO SCH (17:02)
[2017-02-02] MEDS: ATORVASTATIN 40 MG TAB PO SCH (21:01)
[2017-02-02] MEDS: SERTRALINE 100 MG TAB PO SCH (21:01)
--- NOTE | 2017-02-03 00:22 | P.PN ---
Subjective Principal diagnosis: Acute CHF exacerbation This is a pleasant 46-year-old gentleman with a history of paroxysmal atrial fibrillation, on Coumadin, hypertension, hyperlipidemia, previous [place] with prior stent placements, COPD, chronic renal failure, and obesity. Presented to the emergency department with complaints of progressively worsening shortness of breath over the last week as well as a productive cough. Patient is being treated for acute CHF with diastolic dysfunction. 02/02/2017 Patient is still complaining of short of breath with minimal exertion., Soft cough with cory sputum production. No fever no chills. No chest pain. Patient is being continued on IV diuresis. Objective - Vital Signs Vital signs: Vital Signs Temp 97.1 F L 02/02/17 08:00 Pulse 96 02/02/17 19:16 Resp 20 02/02/17 16:00 BP 99/57 02/02/17 16:00 Pulse Ox 95 02/02/17 16:00 Intake & Output 02/02/17 02/02/17 02/03/17 06:59 18:59 06:59 Intake Total 620 720 Output Total 1900 2100 Balance -1280 -1380 Weight 180.6 kg 180.6 kg Intake: IV 20 .9 20 Oral 600 720 Output: Urine 1900 2100 Other: Voiding Method Urinal Urinal # Voids 1 - Exam PHYSICAL EXAMINATION: Patient is lying in the bed comfortably, no acute distress, awake alert and oriented.. Or blueberries HEENT: Normocephalic. Neck is supple. Pupils reactive. Nostrils clear. Oral cavity is moist. Ears reveal no drainage. Neck reveals no JVD, carotid bruits, or thyromegaly. CHEST EXAMINATION: Trachea is central. Symmetrical expansion. Bilateral decreased air entry and rhonchi CARDIAC: Normal S1, S2 with no gallops. No murmurs ABDOMEN: Soft. Bowel sounds normal. No organomegaly. No abdominal bruits. Extremities 2+ edema. No clubbing or cyanosis Neurologically awake, alert, oriented x3 with well-coordinated movements. Skin: no rash or skin lesions Musculoskeletal: no joint swelling or deformity. - Labs CBC & Chem 7: 02/01/17 05:23 02/01/17 05:23 Assessment and Plan Plan: #1 acute on chronic diastolic congestive heart failure, echocardiogram with Doppler study revealed an ejection fraction of 55-60%. #2 paroxysmal atrial fibrillation, anticoagulated on Coumadin #3 COPD not in exacerbation #4 hypertension #5 morbid obesity BMI 57.1 #6 previous [place] with stenting to the LAD and mid circumflex #7 acute on chronic kidney disease stage III likely due to diuresis #8 acute tracheobronchitis #9 Iron deficiency anemia #10 hypothyroidism Plan. Patient was continued on Lasix every 8 hourly. Continue the breathing treatments. We will continue with the current management and add doxycycline for tracheobronchitis. Continue the Coumadin monitoring. And follow closely. Cardiology is on board. Further recommendations based on the clinical course Time with Patient: Greater than 30
[2017-02-03] MEDS: HYDROmorphone 1 MG/ML 1 ML SYRINGE IVP PRN ×6 (01:13→23:58)
[2017-02-03] MEDS: FERROUS SULFATE 325 MG TAB PO SCH ×2 (06:32→18:17)
[2017-02-03] MEDS: LEVOTHYROXINE 137 MCG TAB PO SCH (06:32)
[2017-02-03 06:57] LABS: Anisocytosis Slight; Basophils % (A) 1 %; CH 26.6; CHCM 31.7; Eosinophils # (A) 0.3 k/uL (0-0.7); Eosinophils % (A) 5 %; HCT 43.4 % (39.0-53.0); HDW 3.93; HGB 13.3 gm/dL (13.0-17.5); Hypochromasia Moderate; Luc # (Auto) 0.11; Luc % (Auto) 2; Lymphocytes # (A) 1.3 k/uL (1.0-4.8); Lymphocytes % (A) 20 %; MCH 25.7 pg (25.0-35.0); MCHC 30.5 g/dL (31.0-37.0); MCV 84.2 fL (80.0-100.0); Mean Platelet Volume 8.1; Monocytes # (A) 0.4 k/uL (0-1.0); Monocytes % (A) 7 %; Neutrophils # (A) 4.2 k/uL (1.3-7.7); Neutrophils % (A) 67 %; Poikilocytosis Slight; RBC 5.15 m/uL (4.30-5.90); RDW 18.8 % (11.5-15.5); WBC 6.3 k/uL (3.8-10.6); WBC (Perox) 6.27
[2017-02-03] MEDS: IPRATROPIUM-ALBUTEROL 3 ML NEB INHALATION SCH ×4 (07:10→19:39)
[2017-02-03] MEDS: SYMBICORT 160-4.5 MCG INHALER INHALATION SCH ×2 (07:10→19:39)
[2017-02-03 07:18] LABS: Calcium 8.8 mg/dL (8.4-10.2); Potassium 3.9 mmol/L (3.5-5.1)
[2017-02-03] MEDS: NITROGLYCERIN OINT 1 INCH/GM PACKET TOPICAL SCH ×4 (08:29→20:39)
[2017-02-03] MEDS: HYDROcodone/APAP 7.5-325MG 1 EACH TAB PO PRN ×2 (09:08→22:01)
[2017-02-03] MEDS: FUROSEMIDE 10 MG/ML 4 ML VIAL IV SCH ×3 (09:09→23:58)
[2017-02-03] MEDS: POTASSIUM CHLORIDE ER 20 MEQ TAB.ER PO SCH (09:09)
[2017-02-03] MEDS: METOPROLOL TARTRATE 50 MG TAB PO SCH ×2 (09:09→20:40)
[2017-02-03] MEDS: FOLIC ACID 1 MG TAB PO SCH ×2 (11:41→20:41)
[2017-02-03] MEDS: DOXYCYCLINE 50 MG CAP PO SCH (18:17)
[2017-02-03] MEDS: WARFARIN 7.5 MG TAB PO SCH (18:17)
[2017-02-03] MEDS: ATORVASTATIN 40 MG TAB PO SCH (20:40)
[2017-02-03] MEDS: SERTRALINE 100 MG TAB PO SCH (20:40)
--- NOTE | 2017-02-04 01:51 | P.PN ---
Subjective Principal diagnosis: Acute CHF exacerbation This is a pleasant 46-year-old gentleman with a history of paroxysmal atrial fibrillation, on Coumadin, hypertension, hyperlipidemia, previous [place] with prior stent placements, COPD, chronic renal failure, and obesity. Presented to the emergency department with complaints of progressively worsening shortness of breath over the last week as well as a productive cough. Patient is being treated for acute CHF with diastolic dysfunction. 02/02/2017 Patient is still complaining of short of breath with minimal exertion., Soft cough with cory sputum production. No fever no chills. No chest pain. Patient is being continued on IV diuresis. 02/03/2017 Patient is getting improved today but still having shortness of breath. Not at baseline. Continues to have cough with cory sputum production and antibodies will be started. No other acute overnight issues. Objective - Vital Signs Vital signs: Vital Signs Temp 96.7 F L 02/03/17 08:00 Pulse 76 02/03/17 19:52 Resp 16 02/03/17 16:00 BP 96/50 02/03/17 15:29 Pulse Ox 92 L 02/03/17 19:39 Intake & Output 02/03/17 02/03/17 02/04/17 06:59 18:59 06:59 Intake Total 462 Output Total 1600 1800 750 Balance -1141 -9566 -750 Weight 178.8 kg Intake: Oral 462 Output: Urine 1600 1800 750 Other: Voiding Method Urinal Urinal # Voids 1 - Exam PHYSICAL EXAMINATION: Patient is lying in the bed comfortably, no acute distress, awake alert and oriented.. Or blueberries HEENT: Normocephalic. Neck is supple. Pupils reactive. Nostrils clear. Oral cavity is moist. Ears reveal no drainage. Neck reveals no JVD, carotid bruits, or thyromegaly. CHEST EXAMINATION: Trachea is central. Symmetrical expansion. Bilateral decreased air entry and rhonchi CARDIAC: Normal S1, S2 with no gallops. No murmurs ABDOMEN: Soft. Bowel sounds normal. No organomegaly. No abdominal bruits. Extremities 2+ edema. No clubbing or cyanosis Neurologically awake, alert, oriented x3 with well-coordinated movements. Skin: no rash or skin lesions Musculoskeletal: no joint swelling or deformity. - Labs CBC & Chem 7: 02/03/17 06:33 02/03/17 06:30 Labs: Abnormal Lab Results - Last 24 Hours (Table) 02/03/17 02/03/17 Range/Units 06:30 06:33 MCHC 30.5 L (31.0-37.0) g/dL RDW 18.8 H (11.5-15.5) % Carbon Dioxide 33 H (22-30) mmol/L BUN 29 H (9-20) mg/dL Creatinine 1.63 H (0.66-1.25) mg/dL Assessment and Plan Plan: #1 acute on chronic diastolic congestive heart failure, echocardiogram with Doppler study revealed an ejection fraction of 55-60%. #2 paroxysmal atrial fibrillation, anticoagulated on Coumadin #3 COPD not in exacerbation #4 hypertension #5 morbid obesity BMI 57.1 #6 previous MT with stenting to the LAD and mid circumflex #7 acute on chronic kidney disease stage III likely due to diuresis #8 acute tracheobronchitis #9 Iron deficiency anemia #10 hypothyroidism Plan. Patient was continued on Lasix every 8 hourly. Continue the breathing treatments. We will continue with the current management and add doxycycline for tracheobronchitis. Continue the Coumadin monitoring. And follow closely. Cardiology is on board. Further recommendations based on the clinical course Time with Patient: Greater than 30
[2017-02-04] MEDS: HYDROmorphone 1 MG/ML 1 ML SYRINGE IVP PRN ×5 (04:52→21:47)
[2017-02-04 06:26] LABS: Calcium 8.7 mg/dL (8.4-10.2); Potassium 3.7 mmol/L (3.5-5.1)
[2017-02-04] MEDS: LEVOTHYROXINE 137 MCG TAB PO SCH (06:26)
[2017-02-04] MEDS: FERROUS SULFATE 325 MG TAB PO SCH ×2 (06:26→17:48)
[2017-02-04] MEDS: HYDROcodone/APAP 7.5-325MG 1 EACH TAB PO PRN (06:29)
[2017-02-04 08:13] LABS: INR 3.1 (<1.2); Prothrombin Time 29.7 sec (9.0-12.0)
[2017-02-04] MEDS: FOLIC ACID 1 MG TAB PO SCH ×2 (08:21→20:27)
[2017-02-04] MEDS: DOXYCYCLINE 50 MG CAP PO SCH ×2 (08:21→20:27)
[2017-02-04] MEDS: FUROSEMIDE 10 MG/ML 4 ML VIAL IV SCH ×2 (08:21→17:48)
[2017-02-04] MEDS: POTASSIUM CHLORIDE ER 20 MEQ TAB.ER PO SCH (08:21)
[2017-02-04] MEDS: NITROGLYCERIN OINT 1 INCH/GM PACKET TOPICAL SCH ×4 (08:21→20:25)
[2017-02-04] MEDS: IPRATROPIUM-ALBUTEROL 3 ML NEB INHALATION SCH ×4 (08:28→19:46)
[2017-02-04] MEDS: SYMBICORT 160-4.5 MCG INHALER INHALATION SCH ×2 (08:30→19:46)
[2017-02-04] MEDS: METOPROLOL TARTRATE 50 MG TAB PO SCH ×2 (12:57→20:27)
--- NOTE | 2017-02-04 13:35 | XR ---
EXAMINATION TYPE: XR chest 1V portable DATE OF EXAM: 02/04/2017 COMPARISON: 01/31/2017 INDICATION: Congestive heart failure, follow-up TECHNIQUE: Single frontal view of the chest is obtained. FINDINGS: The heart size is normal. The pulmonary vasculature is normal. There is some blunting left costophrenic angle. Some minimal atelectasis may be present at this level . IMPRESSION: 1. Suggestion of minimal atelectasis left costophrenic angle. 2. An acute pulmonary process is not otherwise identified.
[2017-02-04] MEDS ORDERED: WARFARIN 7.5 MG TAB PO SCH (18:00)
[2017-02-04] MEDS: ATORVASTATIN 40 MG TAB PO SCH (20:27)
[2017-02-04] MEDS: SERTRALINE 100 MG TAB PO SCH (20:28)
--- NOTE | 2017-02-04 22:45 | P.PN ---
Subjective Principal diagnosis: Acute CHF exacerbation This is a pleasant 46-year-old gentleman with a history of paroxysmal atrial fibrillation, on Coumadin, hypertension, hyperlipidemia, previous NH with prior stent placements, COPD, chronic renal failure, and obesity. Presented to the emergency department with complaints of progressively worsening shortness of breath over the last week as well as a productive cough. Patient is being treated for acute CHF with diastolic dysfunction. 02/02/2017 Patient is still complaining of short of breath with minimal exertion., Soft cough with cory sputum production. No fever no chills. No chest pain. Patient is being continued on IV diuresis. 02/03/2017 Patient is getting improved today but still having shortness of breath. Not at baseline. Continues to have cough with cory sputum production and antibodies will be started. No other acute overnight issues. 02/04/2017 Patient's breathing status is much improved today. Patient denied any cough or sputum production. No fever no chills. No acute overnight issues. IV Lasix will be changed to by mouth. Objective - Vital Signs Vital signs: Vital Signs Temp 97.4 F L 02/04/17 16:00 Pulse 76 02/04/17 20:05 Resp 18 02/04/17 16:00 BP 104/68 02/04/17 16:00 Pulse Ox 93 L 02/04/17 12:00 Intake & Output 02/04/17 02/04/17 02/05/17 06:59 18:59 06:59 Intake Total 600 Output Total 3550 900 Balance -3550 -300 Weight 177.4 kg Intake: Oral 600 Output: Urine 3550 900 Other: Voiding Method Urinal - Exam PHYSICAL EXAMINATION: Patient is lying in the bed comfortably, no acute distress, awake alert and oriented.. Or blueberries HEENT: Normocephalic. Neck is supple. Pupils reactive. Nostrils clear. Oral cavity is moist. Ears reveal no drainage. Neck reveals no JVD, carotid bruits, or thyromegaly. CHEST EXAMINATION: Trachea is central. Symmetrical expansion. Bilateral air entry is present and clear to auscultation CARDIAC: Normal S1, S2 with no gallops. No murmurs ABDOMEN: Soft. Bowel sounds normal. No organomegaly. No abdominal bruits. Extremities 2+ edema. No clubbing or cyanosis. Lower extremity venous stasis changes with discoloration Neurologically awake, alert, oriented x3 with well-coordinated movements. Skin: no rash or skin lesions Musculoskeletal: no joint swelling or deformity. - Labs CBC & Chem 7: 02/03/17 06:33 02/04/17 05:42 Labs: Abnormal Lab Results - Last 24 Hours (Table) 02/04/17 02/04/17 Range/Units 05:42 05:42 PT 29.7 H (9.0-12.0) sec INR 3.1 H (<1.2) Carbon Dioxide 34 H (22-30) mmol/L BUN 28 H (9-20) mg/dL Creatinine 1.60 H (0.66-1.25) mg/dL Assessment and Plan Plan: #1 acute on chronic diastolic congestive heart failure, echocardiogram with Doppler study revealed an ejection fraction of 55-60%. #2 paroxysmal atrial fibrillation, anticoagulated on Coumadin #3 COPD not in exacerbation #4 hypertension #5 morbid obesity BMI 57.1 #6 previous NH with stenting to the LAD and mid circumflex #7 acute on chronic kidney disease stage III likely due to diuresis #8 acute tracheobronchitis #9 Iron deficiency anemia #10 hypothyroidism Plan. Patient was continued on Lasix every 8 hourly. Will change to by mouth Lasix. Continue the breathing treatments. We will continue with the current management . doxycycline for tracheobronchitis. Continue the Coumadin monitoring. And follow closely. Cardiology is on board. Further recommendations based on the clinical course
[2017-02-05] MEDS: HYDROmorphone 1 MG/ML 1 ML SYRINGE IVP PRN ×5 (02:07→19:36)
[2017-02-05] MEDS: LEVOTHYROXINE 137 MCG TAB PO SCH (06:24)
[2017-02-05] MEDS: FERROUS SULFATE 325 MG TAB PO SCH ×2 (06:24→17:30)
[2017-02-05] MEDS: SYMBICORT 160-4.5 MCG INHALER INHALATION SCH ×2 (07:15→21:03)
[2017-02-05] MEDS: IPRATROPIUM-ALBUTEROL 3 ML NEB INHALATION SCH ×4 (07:15→21:04)
[2017-02-05] MEDS: NITROGLYCERIN OINT 1 INCH/GM PACKET TOPICAL SCH ×4 (08:35→22:59)
[2017-02-05] MEDS: FUROSEMIDE 40 MG TAB PO SCH ×2 (08:35→17:07)
[2017-02-05] MEDS: POTASSIUM CHLORIDE ER 20 MEQ TAB.ER PO SCH (08:35)
[2017-02-05] MEDS: METOPROLOL TARTRATE 50 MG TAB PO SCH ×2 (08:35→22:59)
[2017-02-05] MEDS: FOLIC ACID 1 MG TAB PO SCH ×2 (08:36→22:59)
[2017-02-05] MEDS: DOXYCYCLINE 50 MG CAP PO SCH ×2 (08:36→22:58)
[2017-02-05] MEDS ORDERED: FUROSEMIDE 10 MG/ML 4 ML VIAL IV STA (14:12)
[2017-02-05] MEDS: ATORVASTATIN 40 MG TAB PO SCH (22:58)
[2017-02-05] MEDS: SERTRALINE 100 MG TAB PO SCH (22:59)
--- NOTE | 2017-02-06 00:33 | P.PN ---
Subjective Principal diagnosis: Acute CHF exacerbation This is a pleasant 46-year-old gentleman with a history of paroxysmal atrial fibrillation, on Coumadin, hypertension, hyperlipidemia, previous [facility] with prior stent placements, COPD, chronic renal failure, and obesity. Presented to the emergency department with complaints of progressively worsening shortness of breath over the last week as well as a productive cough. Patient is being treated for acute CHF with diastolic dysfunction. 02/02/2017 Patient is still complaining of short of breath with minimal exertion., Soft cough with cory sputum production. No fever no chills. No chest pain. Patient is being continued on IV diuresis. 02/03/2017 Patient is getting improved today but still having shortness of breath. Not at baseline. Continues to have cough with cory sputum production and antibodies will be started. No other acute overnight issues. 02/04/2017 Patient's breathing status is much improved today. Patient denied any cough or sputum production. No fever no chills. No acute overnight issues. IV Lasix will be changed to by mouth. 02/05/2017 Patient today complains of worsening breathing status. Patient was given 1 dose of IV Lasix. No cough or sputum production. No fever or chills. No chest pain. Otherwise patient denied any new complaints. Possible discharge in next 1-2 days Objective - Vital Signs Vital signs: Vital Signs Temp 97.8 F 02/05/17 22:25 Pulse 81 02/05/17 22:25 Resp 16 02/05/17 22:25 BP 139/71 02/05/17 22:25 Pulse Ox 98 02/05/17 22:25 Intake & Output 02/05/17 02/05/17 02/06/17 06:59 18:59 06:59 Intake Total 590 Output Total 1250 1750 1300 Balance -1250 -1750 -710 Weight 174 kg Intake: Oral 590 Output: Urine 1250 1750 1300 Other: Voiding Method Urinal Urinal # Voids 0 - Exam PHYSICAL EXAMINATION: Patient is lying in the bed comfortably, no acute distress, awake alert and oriented.. Or blueberries HEENT: Normocephalic. Neck is supple. Pupils reactive. Nostrils clear. Oral cavity is moist. Ears reveal no drainage. Neck reveals no JVD, carotid bruits, or thyromegaly. CHEST EXAMINATION: Trachea is central. Symmetrical expansion. Bilateral air entry is present and clear to auscultation CARDIAC: Normal S1, S2 with no gallops. No murmurs ABDOMEN: Soft. Bowel sounds normal. No organomegaly. No abdominal bruits. Extremities 2+ edema. No clubbing or cyanosis. Lower extremity venous stasis changes with discoloration Neurologically awake, alert, oriented x3 with well-coordinated movements. Skin: no rash or skin lesions Musculoskeletal: no joint swelling or deformity. - Labs CBC & Chem 7: 02/03/17 06:33 02/04/17 05:42 Assessment and Plan Plan: #1 acute on chronic diastolic congestive heart failure, echocardiogram with Doppler study revealed an ejection fraction of 55-60%. #2 paroxysmal atrial fibrillation, anticoagulated on Coumadin #3 COPD not in exacerbation #4 hypertension #5 morbid obesity BMI 57.1 #6 previous [facility] with stenting to the LAD and mid circumflex #7 acute on chronic kidney disease stage III likely due to diuresis #8 acute tracheobronchitis #9 Iron deficiency anemia #10 hypothyroidism Plan. Patient was continued on Lasix every 8 hourly. Change to by mouth Lasix. Continue the breathing treatments. We will continue with the current management . doxycycline for tracheobronchitis. Continue the Coumadin monitoring. And follow closely. Cardiology is on board. Likely discharge in next 1-2 days. Further recommendations based on the clinical course
[2017-02-06] MEDS: HYDROmorphone 1 MG/ML 1 ML SYRINGE IVP PRN (01:01)
[2017-02-06] MEDS: HYDROcodone/APAP 7.5-325MG 1 EACH TAB PO PRN (03:12)
[2017-02-06] MEDS: LEVOTHYROXINE 137 MCG TAB PO SCH (06:14)
[2017-02-06] MEDS: IPRATROPIUM-ALBUTEROL 3 ML NEB INHALATION SCH ×2 (07:26→11:17)
[2017-02-06] MEDS: SYMBICORT 160-4.5 MCG INHALER INHALATION SCH (07:26)
[2017-02-06 08:23] VITALS: BP 111/69; RESP 20; TEMP 98
[2017-02-06 08:33] LABS: INR 2.9 (<1.2); Prothrombin Time 28.3 sec (9.0-12.0)
[2017-02-06] MEDS: POTASSIUM CHLORIDE ER 20 MEQ TAB.ER PO SCH (08:36)
[2017-02-06] MEDS: METOPROLOL TARTRATE 50 MG TAB PO SCH (08:36)
[2017-02-06] MEDS: DOXYCYCLINE 50 MG CAP PO SCH (08:37)
[2017-02-06] MEDS: FUROSEMIDE 40 MG TAB PO SCH (08:37)
[2017-02-06] MEDS: FOLIC ACID 1 MG TAB PO SCH (08:37)
[2017-02-06] MEDS: NITROGLYCERIN OINT 1 INCH/GM PACKET TOPICAL SCH (08:38)
[2017-02-06] MEDS: FERROUS SULFATE 325 MG TAB PO SCH (08:38)
[2017-02-06 11:30] VITALS: PULSE 81
--- NOTE | 2017-02-06 23:17 | P.DS ---
Providers Date of admission: 01/31/17 13:22 Expected date of discharge: 02/06/17 Attending physician: Joshua Rubi Primary care physician: Aguilar Bautista [facility] Course: Discharge diagnosis #1 acute on chronic diastolic congestive heart failure, echocardiogram with Doppler study revealed an ejection fraction of 55-60%. #2 paroxysmal atrial fibrillation, anticoagulated on Coumadin #3 COPD not in exacerbation #4 hypertension #5 morbid obesity BMI 57.1 #6 previous DC with stenting to the LAD and mid circumflex #7 acute on chronic kidney disease stage III likely due to diuresis #8 acute tracheobronchitis #9 Iron deficiency anemia #10 hypothyroidism Hospital course This is a pleasant 46-year-old gentleman with a history of paroxysmal atrial fibrillation, on Coumadin, hypertension, hyperlipidemia, previous DC with prior stent placements, COPD, chronic renal failure, and obesity. Presented to the emergency department with complaints of progressively worsening shortness of breath over the last week as well as a productive cough. Patient is being treated for acute CHF with diastolic dysfunction. 02/02/2017 Patient is still complaining of short of breath with minimal exertion., Soft cough with cory sputum production. No fever no chills. No chest pain. Patient is being continued on IV diuresis. 02/03/2017 Patient is getting improved today but still having shortness of breath. Not at baseline. Continues to have cough with cory sputum production and antibodies will be started. No other acute overnight issues. 02/04/2017 Patient's breathing status is much improved today. Patient denied any cough or sputum production. No fever no chills. No acute overnight issues. IV Lasix will be changed to by mouth. 02/05/2017 Patient today complains of worsening breathing status. Patient was given 1 dose of IV Lasix. No cough or sputum production. No fever or chills. No chest pain. Otherwise patient denied any new complaints. Possible discharge in next 1-2 days 02/06/2017. Patient denied any new complaints today. No acute overnight issues. No complaints of chest pain or short of breath. Patient wants to be discharged home. Patient was continued on Lasix every 8 hourly. Change to by mouth Lasix. Continued the breathing treatments. doxycycline for tracheobronchitis for a total of 5 days. Continued the Coumadin monitoring. Patient is stable to be discharged home. PHYSICAL EXAMINATION: Patient is lying in the bed comfortably, no acute distress, awake alert and oriented.. Or blueberries HEENT: Normocephalic. Neck is supple. Pupils reactive. Nostrils clear. Oral cavity is moist. Ears reveal no drainage. Neck reveals no JVD, carotid bruits, or thyromegaly. CHEST EXAMINATION: Trachea is central. Symmetrical expansion. Bilateral air entry is present and clear to auscultation CARDIAC: Normal S1, S2 with no gallops. No murmurs ABDOMEN: Soft. Bowel sounds normal. No organomegaly. No abdominal bruits. Extremities 2+ edema. No clubbing or cyanosis. Lower extremity venous stasis changes with discoloration Neurologically awake, alert, oriented x3 with well-coordinated movements. Skin: no rash or skin lesions Musculoskeletal: no joint swelling or deformity. Patient Condition at Discharge: Good Plan - Discharge Summary New Discharge Prescriptions: New Doxycycline [Vibramycin] 100 mg PO BID #4 cap Continue Loratadine [Claritin] 10 mg PO DAILY Sertraline [Zoloft] 100 mg PO HS Nitroglycerin Sl Tabs [Nitrostat] 0.4 mg SUBLINGUAL Q5M PRN #30 tab PRN Reason: Chest Pain Folic Acid 1 mg PO BID Levothyroxine Sodium [Synthroid] 137 mcg PO QAM Atorvastatin [Lipitor] 40 mg PO HS Metoprolol Tartrate [Lopressor] 100 mg PO BID Budesonide/Formoterol Fumarate [Symbicort 160-4.5 Mcg Inhaler] 2 puff INHALATION RT-BID Ipratropium-Albuterol Nebulize [Duoneb 0.5 mg-3 mg/3 ml Soln] 3 ml INHALATION RT-QID 30 Days Furosemide [Lasix] 60 mg PO HS Furosemide [Lasix] 20 mg PO DAILY@1200 Potassium Chloride [Klor-Con 20] 20 meq PO DAILY Warfarin [Coumadin] 3.75 mg PO SUTUWETHFRSA Warfarin [Coumadin] 7.5 mg PO MO Ferrous Sulfate [Iron (65 MG Elemental)] 325 mg PO BID Albuterol Inhaler [Ventolin Hfa Inhaler] 2 puff INHALATION RT-Q4H PRN PRN Reason: Shortness Of Breath Ergocalciferol (Vitamin D2) [Vitamin D2] 50,000 unit PO FR guaiFENesin 400 mg PO Q4H PRN PRN Reason: Congestion Discontinued Diltiazem Cd [Cardizem CD] 240 mg PO DAILY #30 cap.er.24h Azithromycin [Zithromax Z-pack] See Taper PO DIRECTED Discharge Medication List Loratadine [Claritin] 10 mg PO DAILY 10/19/13 [History] Sertraline [Zoloft] 100 mg PO HS 10/19/13 [History] Nitroglycerin Sl Tabs [Nitrostat] 0.4 mg SUBLINGUAL Q5M PRN #30 tab 12/03/14 [Rx ] Atorvastatin [Lipitor] 40 mg PO HS 03/25/15 [History] Folic Acid 1 mg PO BID 03/25/15 [History] Levothyroxine Sodium [Synthroid] 137 mcg PO QAM 03/25/15 [History] Budesonide/Formoterol Fumarate [Symbicort 160-4.5 Mcg Inhaler] 2 puff INHALATION RT-BID 08/01/16 [History] Metoprolol Tartrate [Lopressor] 100 mg PO BID 08/01/16 [History] Ipratropium-Albuterol Nebulize [Duoneb 0.5 mg-3 mg/3 ml Soln] 3 ml INHALATION RT -QID 30 Days 08/06/16 [Rx] Albuterol Inhaler [Ventolin Hfa Inhaler] 2 puff INHALATION RT-Q4H PRN 01/31/17 [ History] Ergocalciferol (Vitamin D2) [Vitamin D2] 50,000 unit PO FR 01/31/17 [History] Ferrous Sulfate [Iron (65 MG Elemental)] 325 mg PO BID 01/31/17 [History] Furosemide [Lasix] 20 mg PO DAILY@1200 01/31/17 [History] Furosemide [Lasix] 60 mg PO HS 01/31/17 [History] Potassium Chloride [Klor-Con 20] 20 meq PO DAILY 01/31/17 [History] Warfarin [Coumadin] 3.75 mg PO SUTUWETHFRSA 01/31/17 [History] Warfarin [Coumadin] 7.5 mg PO MO 01/31/17 [History] guaiFENesin 400 mg PO Q4H PRN 01/31/17 [History] Doxycycline [Vibramycin] 100 mg PO BID #4 cap 02/06/17 [Rx] Follow up Appointment(s)/Referral(s): Aguilar Bautista DO [Primary Care Provider] - 1-2 days (Unable to set up follow up please call the office to make appointment) Patient Instructions/Handouts: Doxycycline (By mouth), Heart Failure (DC), Atrial Fibrillation (DC), Pulmonary Edema (DC) Discharge Disposition: HOME SELF-CARE
--- NOTE | 2017-02-08 17:05 | PN ---
DATE OF SERVICE: 02/01/17 This 46-year-old gentleman was admitted with shortness of breath had possible combination of COPD and CHF. The patient is feeling slightly better. No chest pain, no palpitations. No fever. Past medical history reviewed. REVIEW OF SYSTEMS: Cardiovascular: No angina or palpitations. Respiratory: As mentioned earlier. : No dysuria. Nervous system: No numbness or weakness. Allergy/Immunology: As mentioned earlier. Musculoskeletal: As mentioned earlier. Current medications are reviewed at length which include Lasix and bronchodilators. PHYSICAL EXAMINATION: The patient is alert and oriented times three. The patient is still short of breath at rest. Pulse 60. Blood pressure 100/50. Respiratory rate 20. Temperature 98.2 degrees. Pulse ox 94% on room air. HEENT: Conjunctivae normal. Oral mucosa moist. NECK: Obese. CARDIOVASCULAR: S1, S2 muffled. Ejection systolic murmur. No S3 , no S4. RESPIRATORY: Breath sounds diminished at the bases. Scattered rhonchi and crackles. Abdomen is soft. Obese. Nontender. Legs: Minimal bilateral leg edema. Nervous system: Diffusely weak. LABS: WBC 7, hemoglobin 12.5. INR 3. Creatinine 1.70. ASSESSMENT: 1. Shortness of breath, possibly multifactorial, congestive heart failure acute exacerbation as well as chronic obstructive pulmonary disease acute exacerbation, acute purulent tracheobronchitis. 2. Increased creatinine, chronic kidney disease, Stage III. 3. History of asthma, chronic obstructive pulmonary disease. 4. History of deep venous thrombosis. 5. Hypertension. 6. Hyperlipidemia. 7. Coumadin monitoring. 8. Morbid obesity with body mass index of 59.4. 9. History of coronary artery disease stent. RECOMMENDATIONS AND DISCUSSION: Recommend to continue the current medications. Continue with symptomatic treatment. Otherwise, bronchodilators. Continue combination of diuretics as well. Follow closely with multiple consultants. Restrict fluids. The patients ( ) improving at this time. Continue to monitor as mentioned earlier the patient has multiple complex medical issues. See orders for further details. MTDD
== END 2017-02-06 13:28 | disposition home or self-care (01) | DRG 291 ==
LOC: EC 10:11 → SUPCPDRO 10:11 → 6SEL 13:22 → 5MS5E 02-05 07:37
PROVIDERS: ADMIT Hospitalist; ATTEND Hospitalist
DX: I13.0 Hypertensive heart and chronic kidney disease with heart failure and stage 1 through stage 4 chronic kidney disease, or unspecified chronic kidney disease (principal); I50.33 Acute on chronic diastolic (congestive) heart failure; J44.0 Chronic obstructive pulmonary disease with (acute) lower respiratory infection; N18.3 Chronic kidney disease, stage 3 (moderate); E66.01 Morbid (severe) obesity due to excess calories; Z79.01 Long term (current) use of anticoagulants; I48.0 Paroxysmal atrial fibrillation; J20.9 Acute bronchitis, unspecified; G47.30 Sleep apnea, unspecified; T50.2X5A Adverse effect of carbonic-anhydrase inhibitors, benzothiadiazides and other diuretics, initial encounter; E03.9 Hypothyroidism, unspecified; D50.9 Iron deficiency anemia, unspecified; E78.5 Hyperlipidemia, unspecified; I25.2 Old myocardial infarction; I25.10 Atherosclerotic heart disease of native coronary artery without angina pectoris; I87.8 Other specified disorders of veins; J30.2 Other seasonal allergic rhinitis; L30.9 Dermatitis, unspecified; F32.9 Major depressive disorder, single episode, unspecified; F41.9 Anxiety disorder, unspecified; K57.90 Diverticulosis of intestine, part unspecified, without perforation or abscess without bleeding; Z88.0 Allergy status to penicillin; Z95.5 Presence of coronary angioplasty implant and graft; Z86.718 Personal history of other venous thrombosis and embolism; Z79.899 Other long term (current) drug therapy; Z79.51 Long term (current) use of inhaled steroids; Z87.891 Personal history of nicotine dependence; Z71.3 Dietary counseling and surveillance; Z51.81 Encounter for therapeutic drug level monitoring; Z87.19 Personal history of other diseases of the digestive system; Z86.19 Personal history of other infectious and parasitic diseases; Z86.14 Personal history of Methicillin resistant Staphylococcus aureus infection; Z88.1 Allergy status to other antibiotic agents; Z91.048 Other nonmedicinal substance allergy status; Z82.49 Family history of ischemic heart disease and other diseases of the circulatory system; Z84.1 Family history of disorders of kidney and ureter; Z83.79 Family history of other diseases of the digestive system
CPT/HCPCS: 36415; 71010; 71020; 80048; 80053; 82550; 82553; 83880; 84443; 84484; 85025; 85610; 85730; 93005; 93306; 94640; 94760; 96374; 96375; 99291

== ENCOUNTER → 2017-12-17 | Outpatient (CLI) | payer MEDICARE, OTHER | LOC: LABWHC1 11:42 | PROVIDERS: ATTEND Internal Medicine | DX: E87.6 Hypokalemia (principal) | CPT/HCPCS: 36415; 84132 ==

== ENCOUNTER → 2017-12-19 | Outpatient (CLI) | payer MEDICARE, OTHER | END | disposition home or self-care (01) | LOC: LABWHC1 15:22 | PROVIDERS: ATTEND Internal Medicine | DX: E87.6 Hypokalemia (principal) | CPT/HCPCS: 36415; 84132 ==

== ENCOUNTER 2017-12-20 13:19 | Emergency (ER) | payer MEDICARE, OTHER ==
[2017-12-20] MEDS ORDERED: POTASSIUM BICARBONATE/CIT AC 20 MEQ TABLET.EFF PO ONE (13:46)
[2017-12-20 14:29] LABS: Calcium 8.7 mg/dL (8.4-10.2); Magnesium 1.8 mg/dL (1.6-2.3)
[2017-12-20] MEDS: POTASSIUM CHLORIDE 20 MEQ in WATER FOR INJECTION 1 100ML.BAG IVPB SCH ×2 (14:47→17:09)
--- NOTE | 2017-12-20 16:28 | ED ---
General Adult HPI - General Chief complaint: Recheck/Abnormal Lab/Rx Stated complaint: Hypokalemia Source: patient Mode of arrival: ambulatory Limitations: no limitations - History of Present Illness Initial comments: Dictation was produced using [employer] dictation software. please excuse any grammatical, word or spelling errors. Chief Complaint: 47-year-old male with past medical history of chronic kidney disease, atrial fibrillation on anticoagulant therapy presents from bulk filler for hypokalemia. History of Present Illness: Patient reports that he is been hypokalemic for several days now. He was sent in by his bulk filler for IV potassium. Patient has had outpatient low levels of potassium. He recently was told to double up on his by mouth potassium. As a history of chronic kidney disease. Patient states he does not eat a well balanced diet with high potassium containing foods. He symptoms at this time. Past Medical History: Atrial fibrillation, asthma, coronary artery disease, COPD , DVTs Past Surgical History: By resection, heart cath, hernia repair, colonoscopy Social History: [denies alcohol, tobacco or illicit drug use] Family History: reviewed and noncontributory The ROS documented in this emergency department record has been reviewed and confirmed by me. Those systems with pertinent positive or negative responses have been documented in the HPI. All other systems are other negative and/or noncontributory. - Related Data Home Medications Medication Instructions Recorded Confirmed Loratadine [Claritin] 10 mg PO DAILY 10/19/13 12/20/17 Sertraline [Zoloft] 100 mg PO HS 10/19/13 12/20/17 Atorvastatin [Lipitor] 40 mg PO HS 03/25/15 12/20/17 Folic Acid 1 mg PO BID 03/25/15 12/20/17 Levothyroxine Sodium [Synthroid] 137 mcg PO QAM 03/25/15 12/20/17 Budesonide/Formoterol Fumarate 2 puff INHALATION RT-BID 08/01/16 12/20/17 [Symbicort 160-4.5 Mcg Inhaler] Metoprolol Tartrate [Lopressor] 100 mg PO BID 08/01/16 12/20/17 Albuterol Inhaler [Ventolin Hfa 2 puff INHALATION RT-Q4H PRN 01/31/17 12/20/17 Inhaler] Furosemide [Lasix] 80 mg PO DAILY 01/31/17 12/20/17 Potassium Chloride [Klor-Con 20] 20 meq PO DAILY 01/31/17 12/20/17 Warfarin [Coumadin] 3.75 mg PO SUTUWETHFRSA 01/31/17 12/20/17 Warfarin [Coumadin] 7.5 mg PO MO 01/31/17 12/20/17 Calcitriol [Rocaltrol] 0.25 mg PO MOTH 11/07/17 12/20/17 Allopurinol [Zyloprim] 100 mg PO DAILY 12/17/17 12/20/17 Metolazone [Zaroxolyn] 2.5 mg PO MOTH 12/17/17 12/20/17 Furosemide [Lasix] 60 mg PO HS 12/20/17 12/20/17 Previous Rx's Medication Instructions Recorded Nitroglycerin Sl Tabs [Nitrostat] 0.4 mg SUBLINGUAL Q5M PRN #30 tab 12/03/14 Allergies Allergy/AdvReac Type Severity Reaction Status Date / Time adhesive Allergy "PLASTIC Verified 12/20/17 13:50 TAPE PEELS SKIN,PAPER TAPE IS OK" Cephalosporins Allergy Unknown Verified 12/20/17 13:50 linezolid Allergy Unknown Verified 12/20/17 13:50 penicillin G Allergy Rash/Hives Verified 12/20/17 13:50 Review of Systems ROS Statement: Those systems with pertinent positive or pertinent negative responses have been documented in the HPI. ROS Other: All systems not noted in ROS Statement are negative. Past Medical History Past Medical History: Atrial Fibrillation, Asthma, Coronary Artery Disease (CAD) , Chest Pain / Angina, Heart Failure, COPD, Deep Vein Thrombosis (DVT), Hyperlipidemia, Hypertension, Myocardial Infarction (OK), Skin Disorder, Sleep Apnea/CPAP/BIPAP, Thyroid Disorder, Vascular Disorder Additional Past Medical History / Comment(s): DECREASED KIDNEY FUNCTION R/T MEDICATION, kidney stones, multiple abdominal surgeries for a hiatal hernia that was complicated by prolonged hospitalization and prolonged ventilator dependent respiratory failure requiring a tracheostomy tube insertion, diverticular disease, chronic anemia, HX VERTIGO, USING CANE Last Myocardial Infarction Date:: History of Any Multi-Drug Resistant Organisms: MRSA Date of last positivie culture/infection: 02/01/15 MDRO Source:: Abdomen Past Surgical History: Bowel Resection, Heart Catheterization With Stent, Hernia Repair Additional Past Surgical History / Comment(s): colonoscopy, heart stents x 4, stomach mass removed with colostomy and colostomy reversal (removed a foot of pts colon)-2003, hernia repair with skin grafts and 2 fistula repairs ( hospitalized for 1 year @[facility]2010 Past Anesthesia/Blood Transfusion Reactions: No Reported Reaction Additional Past Anesthesia/Blood Transfusion Reaction / Comment(s): FATHER RECEIVED HEPATITIS FROM BLOOD TRANSFUSION Date of Last Stent Placement:: 03/28/2015 Past Psychological History: Depression Smoking Status: Current every day smoker Past Alcohol Use History: Rare Past Drug Use History: None Reported - Past Family History Mother Family Medical History: Osteoarthritis (OA), Pneumonia Additional Family Medical History / Comment(s): osteoporosis. arthroscopy surgery for knee Father Family Medical History: Liver Disease, Renal Disease Additional Family Medical History / Comment(s): triple heart bypass. liver transplant. aortic aneursym General Exam - General Exam Comments Initial Comments: Vitals: Vital signs upon arrival are within normal limits. PHYSICAL EXAM: General Impression: Alert and oriented x3, not in acute distress HEENT: Normocephalic atraumatic, extra-ocular movements intact, pupils equal and reactive to light bilaterally, mucous membranes moist. Cardiovascular: Irregularly irregular Chest: Lungs clear to auscultation bilaterally, no rhonchi, no wheeze, no rales Abdomen: Bowel sounds present, abdomen soft, non-tender, non-distended, no organomegaly Musculoskeletal: Pulses present and equal in all extremities, no peripheral edema Motor: Power 5/5 bilaterally, no focal deficits noted Neurological: CN II-XII grossly intact, no focal motor or sensory deficits noted Skin: Intact with no visualized rashes Psych: Normal affect and mood Limitations: no limitations Course Vital Signs 12/20/17 13:22 Temperature 98.3 F Pulse Rate 96 Respiratory 22 Rate Blood Pressure 123/73 O2 Sat by Pulse 95 Oximetry Medical Decision Making - Medical Decision Making ED course: 47-year-old male with multiple comorbidities sent in by bulk filler for low potassium level. Patient failed by mouth potassium replacement outpatient. Vital signs are stable. Potassium level here is 3.0. Magnesium is 1.8. Patient was given 20 equivalence of parenteral potassium. He is also given 40 mEq of by mouth potassium. No abnormal EKG findings. Patient is well- appearing. Patient be discharged. He is told to continue taking his potassium as instructed by his kidney doctor. He is advised follow-up with kidney doctor upon discharge. Patient is understandable and agreeable. EKG Interpretation: A 12 lead EKG was obtained. It was interpreted by myself and attending physician. There is a P wave before every QRS complex. Rate is 114. Rhythm is H fibrillation, QRS 94, QTC 493. QT is not prolonged. No ST segment depression or elevation. Overall, this EKG is unremarkable - Lab Data Result diagrams: 12/20/17 14:02 Lab Results 12/20/17 Range/Units 14:02 Sodium 137 (137-145) mmol/L Potassium 3.0 L* (3.5-5.1) mmol/L Chloride 93 L (98-107) mmol/L Carbon Dioxide 31 H (22-30) mmol/L Anion Gap 13 mmol/L BUN 32 H (9-20) mg/dL Creatinine 1.60 H (0.66-1.25) mg/dL Est GFR (CKD-EPI)AfAm 59 (>60 ml/min/1.73 sqM) Est GFR (CKD-EPI)NonAf 51 (>60 ml/min/1.73 sqM) Glucose 333 H (74-99) mg/dL Calcium 8.7 (8.4-10.2) mg/dL Magnesium 1.8 (1.6-2.3) mg/dL Disposition Clinical Impression: Hypokalemia Disposition: HOME SELF-CARE Condition: Fair Instructions: Hypokalemia (ED) Is patient prescribed a controlled substance at d/c from ED?: No Referrals: Aguilar Bautista DO [Primary Care Provider] - 1-2 days Time of Disposition: 16:28
[2017-12-20 17:11] VITALS: BP 132/80; PULSE 88; RESP 20; TEMP 98
== END 2017-12-20 17:12 | disposition home or self-care (01) ==
LOC: EC 13:19
DX: E87.6 Hypokalemia (principal); J44.9 Chronic obstructive pulmonary disease, unspecified; I25.119 Atherosclerotic heart disease of native coronary artery with unspecified angina pectoris; I48.91 Unspecified atrial fibrillation; I11.0 Hypertensive heart disease with heart failure; I50.9 Heart failure, unspecified; I25.2 Old myocardial infarction; E07.9 Disorder of thyroid, unspecified; G47.30 Sleep apnea, unspecified; Z99.89 Dependence on other enabling machines and devices; F32.9 Major depressive disorder, single episode, unspecified; J96.90 Respiratory failure, unspecified, unspecified whether with hypoxia or hypercapnia; F17.200 Nicotine dependence, unspecified, uncomplicated; Z79.51 Long term (current) use of inhaled steroids; Z79.01 Long term (current) use of anticoagulants; Z79.899 Other long term (current) drug therapy; Z88.0 Allergy status to penicillin; Z88.1 Allergy status to other antibiotic agents; Z91.048 Other nonmedicinal substance allergy status; Z88.8 Allergy status to other drugs, medicaments and biological substances; Z53.8 Procedure and treatment not carried out for other reasons
CPT/HCPCS: 36415; 93005; 80048; 83735; 99284; J3480

== ENCOUNTER 2018-05-05 05:28 | Inpatient (IN) | payer MEDICARE, OTHER ==
--- NOTE | 2018-05-05 06:08 | XR ---
EXAMINATION TYPE: XR chest 2V DATE OF EXAM: 05/05/2018 COMPARISON: 02/04/2017 HISTORY: Short of breath TECHNIQUE: Frontal and lateral views of the chest are obtained. FINDINGS: Heart is enlarged. There is pulmonary vascular congestion. There are chest leads. There is no pulmonary consolidation. There is coarsening of interstitial markings. IMPRESSION: There is probably mild heart failure. This appears new compared to last exam. Cardiomega ly. Heart appears increased.
[2018-05-05 06:33] LABS: Anisocytosis Slight; Basophils # (A) 0.1 k/uL (0-0.2); Basophils % (A) 1 %; Eosinophils # (A) 0.3 k/uL (0-0.7); Eosinophils % (A) 4 %; HCT 42.4 % (39.0-53.0); HGB 14.5 gm/dL (13.0-17.5); Lymphocytes # (A) 1.3 k/uL (1.0-4.8); Lymphocytes % (A) 15 %; MCH 31.5 pg (25.0-35.0); MCHC 34.3 g/dL (31.0-37.0); MCV 91.8 fL (80.0-100.0); Mean Platelet Volume 7.7; Monocytes # (A) 0.4 k/uL (0-1.0); Monocytes % (A) 5 %; Neutrophils # (A) 6.4 k/uL (1.3-7.7); Neutrophils % (A) 75 %; Platelet Count 201 k/uL (150-450); Poikilocytosis Slight; RBC 4.62 m/uL (4.30-5.90); RDW 16.5 % (11.5-15.5); WBC 8.6 k/uL (3.8-10.6)
[2018-05-05] MEDS ORDERED: FUROSEMIDE 10 MG/ML 4 ML VIAL IV STA (06:36)
[2018-05-05 06:40] LABS: Partial Thromboplastin Time 42.9 sec (22.0-30.0); Prothrombin Time 26.9 sec (9.0-12.0)
--- NOTE | 2018-05-05 07:08 | ED ---
SOB HPI - General Chief Complaint: Shortness of Breath Stated Complaint: CRISTIAN Time Seen by Provider: 05/05/18 06:04 Source: patient Mode of arrival: EMS Limitations: no limitations - History of Present Illness Initial Comments: Maximo Cerna is a 47-year-old male with an extensive past medical history who presents the emergency department today for evaluation of shortness of breath and feeling as though he can't take a deep breath or [place] breath. Patient does have a history of congestive heart failure as well as A. fib and a flutter. He reports he has been compliant with all of his home medications. He reports over the past day he is progressively become more short of breath. He sitting up and feels as though he can't lay down without becoming short of breath. He reports that this is similar to previous episodes of congestive heart failure where he had to be admitted for diuresis. Patient denies any chest pain, diaphoresis, lightheadedness or feeling as though he is given a pass out. He is currently on Coumadin for his A. fib and reports he has been compliant with that. He has no history of blood clots that he is aware of. - Related Data Home Medications Medication Instructions Recorded Confirmed Loratadine [Claritin] 10 mg PO DAILY 10/19/13 12/25/17 Sertraline [Zoloft] 100 mg PO HS 10/19/13 12/25/17 Atorvastatin [Lipitor] 40 mg PO HS 03/25/15 12/25/17 Folic Acid 1 mg PO BID 03/25/15 12/25/17 Levothyroxine Sodium [Synthroid] 137 mcg PO QAM 03/25/15 12/25/17 Budesonide/Formoterol Fumarate 2 puff INHALATION RT-BID 08/01/16 12/25/17 [Symbicort 160-4.5 Mcg Inhaler] Metoprolol Tartrate [Lopressor] 100 mg PO BID 08/01/16 12/25/17 Albuterol Inhaler [Ventolin Hfa 2 puff INHALATION RT-Q4H PRN 01/31/17 12/25/17 Inhaler] Furosemide [Lasix] 80 mg PO DAILY 01/31/17 12/25/17 Potassium Chloride [Klor-Con 20] 20 meq PO DAILY 01/31/17 12/25/17 Warfarin [Coumadin] 3.75 mg PO SUTUWETHFRSA 01/31/17 12/25/17 Warfarin [Coumadin] 7.5 mg PO MO 01/31/17 12/25/17 Calcitriol [Rocaltrol] 0.25 mg PO MOTH 11/07/17 12/25/17 Allopurinol [Zyloprim] 100 mg PO DAILY 12/17/17 12/25/17 Metolazone [Zaroxolyn] 2.5 mg PO MOTH 12/17/17 12/25/17 Furosemide [Lasix] 60 mg PO HS 12/20/17 12/25/17 Previous Rx's Medication Instructions Recorded Nitroglycerin Sl Tabs [Nitrostat] 0.4 mg SUBLINGUAL Q5M PRN #30 tab 12/03/14 Allergies Allergy/AdvReac Type Severity Reaction Status Date / Time adhesive Allergy "PLASTIC Verified 12/25/17 11:07 TAPE PEELS SKIN,PAPER TAPE IS OK" Cephalosporins Allergy Unknown Verified 12/25/17 11:07 linezolid Allergy Unknown Verified 12/25/17 11:07 penicillin G Allergy Rash/Hives Verified 12/25/17 11:07 Review of Systems ROS Statement: Those systems with pertinent positive or pertinent negative responses have been documented in the HPI. ROS Other: All systems not noted in ROS Statement are negative. Past Medical History Past Medical History: Atrial Fibrillation, Asthma, Coronary Artery Disease (CAD) , Chest Pain / Angina, Heart Failure, COPD, Deep Vein Thrombosis (DVT), Hyperlipidemia, Hypertension, Myocardial Infarction ([place]), Skin Disorder, Sleep Apnea/CPAP/BIPAP, Thyroid Disorder, Vascular Disorder Additional Past Medical History / Comment(s): DECREASED KIDNEY FUNCTION R/T MEDICATION, kidney stones, multiple abdominal surgeries for a hiatal hernia that was complicated by prolonged hospitalization and prolonged ventilator dependent respiratory failure requiring a tracheostomy tube insertion, diverticular disease, chronic anemia, HX VERTIGO, USING CANE Last Myocardial Infarction Date:: History of Any Multi-Drug Resistant Organisms: MRSA Date of last positivie culture/infection: 02/01/15 MDRO Source:: Abdomen Past Surgical History: Bowel Resection, Heart Catheterization With Stent, Hernia Repair Additional Past Surgical History / Comment(s): colonoscopy, heart stents x 4, stomach mass removed with colostomy and colostomy reversal (removed a foot of pts colon)-2003, hernia repair with skin grafts and 2 fistula repairs ( hospitalized for 1 year @[facility])-2010 Past Anesthesia/Blood Transfusion Reactions: No Reported Reaction Additional Past Anesthesia/Blood Transfusion Reaction / Comment(s): FATHER RECEIVED HEPATITIS FROM BLOOD TRANSFUSION Date of Last Stent Placement:: 03/28/2015 Past Psychological History: Depression Smoking Status: Current every day smoker Past Alcohol Use History: Rare Past Drug Use History: None Reported - Past Family History Mother Family Medical History: Osteoarthritis (OA), Pneumonia Additional Family Medical History / Comment(s): osteoporosis. arthroscopy surgery for knee Father Family Medical History: Liver Disease, Renal Disease Additional Family Medical History / Comment(s): triple heart bypass. liver transplant. aortic aneursym General Exam - General Exam Comments Initial Comments: Physical Exam GENERAL: Tonically ill-appearing, appears older than stated age HENT: Normocephalic, Atraumatic. EYES: PERRL, EOMI PULMONARY: Crackles at bilateral bases CARDIOVASCULAR: Irregularly irregular tachycardia Extremities warm and well perfused ABDOMEN: Obese,, multiple surgical scars, skin graft with area of chronic wound. Patient wearing an abdominal binder. SKIN: Gen. incisions on her abdomen with area of nonhealing wound Skin color changes of bilateral lower extremities consistent with chronic venous stasis : Deferred NEUROLOGIC: Patient is alert and oriented x3. Moving all extremities spontaneously MUSCULOSKELETAL: 2+ pitting edema bilateral lower extremities PSYCHIATRIC: Normal psychiatric evaluation. Limitations: no limitations Limitations: no limitations Course Vital Signs 05/05/18 05:30 Temperature 97.8 F Pulse Rate 107 H Respiratory 24 Rate Blood Pressure 128/78 O2 Sat by Pulse 99 Oximetry Medical Decision Making - Medical Decision Making Patient was seen and evaluated, history was obtained from the patient and review of medical record History and physical exam are concerning for CHF exacerbation Labs and imaging were ordered Chest x-ray suggested CHF, IV Lasix was ordered Labs with mild elevation of creatinine, troponin within normal limits Patient care was discussed with Dr. Nguyen who accepts the admission with consult to cardiology. Admission orders were placed - Lab Data Result diagrams: 05/05/18 06:09 05/05/18 06:09 Lab Results 05/05/18 05/05/18 05/05/18 Range/Units 06:09 06:09 06:09 WBC 8.6 (3.8-10.6) k/uL RBC 4.62 (4.30-5.90) m/uL Hgb 14.5 (13.0-17.5) gm/dL Hct 42.4 (39.0-53.0) % MCV 91.8 (80.0-100.0) fL MCH 31.5 (25.0-35.0) pg MCHC 34.3 (31.0-37.0) g/dL RDW 16.5 H (11.5-15.5) % Plt Count 201 (150-450) k/uL Neutrophils % 75 % Lymphocytes % 15 % Monocytes % 5 % Eosinophils % 4 % Basophils % 1 % Neutrophils # 6.4 (1.3-7.7) k/uL Lymphocytes # 1.3 (1.0-4.8) k/uL Monocytes # 0.4 (0-1.0) k/uL Eosinophils # 0.3 (0-0.7) k/uL Basophils # 0.1 (0-0.2) k/uL Poikilocytosis Slight Anisocytosis Slight PT (9.0-12.0) sec INR (<1.2) APTT (22.0-30.0) sec Sodium 145 (137-145) mmol/L Potassium 3.9 (3.5-5.1) mmol/L Chloride 111 H (98-107) mmol/L Carbon Dioxide 25 (22-30) mmol/L Anion Gap 9 mmol/L BUN 19 (9-20) mg/dL Creatinine 1.51 H (0.66-1.25) mg/dL Est GFR (CKD-EPI)AfAm 63 (>60 ml/min/1.73 sqM) Est GFR (CKD-EPI)NonAf 55 (>60 ml/min/1.73 sqM) Glucose 154 H (74-99) mg/dL Calcium 8.8 (8.4-10.2) mg/dL Magnesium 2.0 (1.6-2.3) mg/dL Total Bilirubin 1.2 (0.2-1.3) mg/dL AST 50 (17-59) U/L ALT 36 (21-72) U/L Alkaline Phosphatase 87 (38-126) U/L Total Creatine Kinase 52 L (55-170) U/L CK-MB (CK-2) 1.0 (0.0-2.4) ng/mL CK-MB (CK-2) Rel Index 1.9 Troponin I 0.021 (0.000-0.034) ng/mL Total Protein 7.2 (6.3-8.2) g/dL Albumin 3.6 (3.5-5.0) g/dL 05/05/18 Range/Units 06:09 WBC (3.8-10.6) k/uL RBC (4.30-5.90) m/uL Hgb (13.0-17.5) gm/dL Hct (39.0-53.0) % MCV (80.0-100.0) fL MCH (25.0-35.0) pg MCHC (31.0-37.0) g/dL RDW (11.5-15.5) % Plt Count (150-450) k/uL Neutrophils % % Lymphocytes % % Monocytes % % Eosinophils % % Basophils % % Neutrophils # (1.3-7.7) k/uL Lymphocytes # (1.0-4.8) k/uL Monocytes # (0-1.0) k/uL Eosinophils # (0-0.7) k/uL Basophils # (0-0.2) k/uL Poikilocytosis Anisocytosis PT 26.9 H (9.0-12.0) sec INR 3.0 H (<1.2) APTT 42.9 H (22.0-30.0) sec Sodium (137-145) mmol/L Potassium (3.5-5.1) mmol/L Chloride (98-107) mmol/L Carbon Dioxide (22-30) mmol/L Anion Gap mmol/L BUN (9-20) mg/dL Creatinine (0.66-1.25) mg/dL Est GFR (CKD-EPI)AfAm (>60 ml/min/1.73 sqM) Est GFR (CKD-EPI)NonAf (>60 ml/min/1.73 sqM) Glucose (74-99) mg/dL Calcium (8.4-10.2) mg/dL Magnesium (1.6-2.3) mg/dL Total Bilirubin (0.2-1.3) mg/dL AST (17-59) U/L ALT (21-72) U/L Alkaline Phosphatase (38-126) U/L Total Creatine Kinase (55-170) U/L CK-MB (CK-2) (0.0-2.4) ng/mL CK-MB (CK-2) Rel Index Troponin I (0.000-0.034) ng/mL Total Protein (6.3-8.2) g/dL Albumin (3.5-5.0) g/dL - EKG Data EKG Comments: EKG obtained at 5:38 AM, rate as only rhythm is a near complex tachycardia, appears to be a flutter, there is no acute ST elevations or depressions no evidence of acute ischemia or infarction Disposition Clinical Impression: CHF (congestive heart failure) Disposition: ADMITTED IP TO THIS HOSP Condition: Stable Referrals: Aguilar Bautista DO [Primary Care Provider] - 1-2 days
[2018-05-05 07:14] LABS: Troponin I 0.021 ng/mL (0.000-0.034)
[2018-05-05 07:32] LABS: Albumin 3.6 g/dL (3.5-5.0); Calcium 8.8 mg/dL (8.4-10.2); Potassium 3.9 mmol/L (3.5-5.1); Total Bilirubin 1.2 mg/dL (0.2-1.3); Total Protein 7.2 g/dL (6.3-8.2)
[2018-05-05] MEDS ORDERED: INFLUENZA VACCINE (6 MOS+) 60 MCG/0.5 ML SYRINGE IM ONE (09:22)
[2018-05-05] MEDS ORDERED: NITROGLYCERIN SL TABS 0.4 MG TAB SUBLINGUAL PRN (12:53)
[2018-05-05] MEDS ORDERED: CALCITRIOL 0.25 MCG CAP PO SCH (13:00)
[2018-05-05] MEDS: traMADol 50 MG TAB PO PRN (13:09)
[2018-05-05 14:43] VITALS: BMI 59.8
--- NOTE | 2018-05-05 14:51 | HP ---
HISTORY AND PHYSICAL CHIEF COMPLAINT: This is a 47-year-old white male presents emergency room with increasing shortness of breath. He can't take a deep breath. He has had history of congestive heart failure as well as atrial fibrillation and flutter and history of heart attack in the past. He has been compliant with his medications, his diet has been good. He says he has gained like 10 pounds in the last month or two. He has shortness of breath with breathing and his Coumadin level, INR is 3 on admission. HOME MEDICATIONS: Claritin, Zoloft, Lipitor, levothyroxine, Symbicort, Lopressor, Phenyl HFA, Lasix, potassium chloride, Coumadin, Zyloprim, Zaroxolyn, Lasix. ALLERGIES: ADHESIVES, CEPHALOSPORINS, [QAMARKER}, PENICILLIN. REVIEW OF SYSTEMS: Negative except for mentioned in the H and P this. PAST MEDICAL HISTORY: COPD, obstructive sleep apnea, refuses to wear the CPAP, hypothyroidism, atrial fibrillation, asthma, coronary artery disease, history of DVT, COPD, skin disorder, myocardial infarction in the past. He had a tracheostomy in the past for respiratory failure, diverticular disease, anemia, history of MRSA. PAST SURGICAL HISTORY: Bowel resection with chronic wounds, heart catheterization with stent, colostomies, heart stents x4, hernia repair with skin grafts and 2 fissure repairs, hospitalized for 1 year at [facility]. He has history of depression, current everyday smoker. Denies alcohol. FAMILY HISTORY: Mother with osteoarthritis and pneumonia. Father with liver disease, renal disease. A 14-point review of systems negative except for as mentioned in HPI. PHYSICAL EXAM: He is an obese white male on 2 L oxygen, slightly short of breath. His abdomen is distended. BMI is over 40. He has large amount of stasis dermatitis in his lower extremities and 3+ pedal edema bilaterally. Abdomen is distended largely with scarring across the mid abdomen entire vertically with 2 small wounds, 1 cm and 0.5 cm in the dermal layer where the abdominal distention wrapped to his abdomen. NEUROLOGIC: Alert and oriented x3. PSYCH: Fair mood and affect. VASCULAR: Normal dorsalis pedis, posterior tibial, necrotic sounds. Lungs are decreased breath sounds, scattered wheeze x4. Labs are all reviewed. He has an elevated D-dimer. Blood pressure 128/78, O2 of 99% on 2 L, pulse is low 100s, temp 97.8. ASSESSMENT: 1. Acute congestive heart failure exacerbation. IV Lasix is being ordered. Echo is being ordered. Cardiology, Pulmonary are consulted. 2. Obstructive sleep apnea. 3. Chronic renal disease stage III, noncompliant with his obstructive sleep apnea medication. 4. Ventral hernia repairs to his chronic abdominal wounds. Please see further orders. Pulmonary and Cardiology are both consulted. Await IV diuresis and further care. MMODL / IJN: [id number] /
--- NOTE | 2018-05-05 15:01 | P.CRDCN ---
History of Present Illness History of present illness: This is a pleasant 47-year-old male past medical history significant for chronic persistent atrial fibrillation on long-term anticoagulation with Coumadin, coronary artery disease status post angioplasty of the mid circumflex artery in 2015, known total occlusion of the RCA, angioplasty of the proximal LAD, hypertension, dyslipidemia, chronic kidney disease and morbid obesity. He follows with Dr. JOHNNIE Wood in the office. We have been asked to see him in consultation for exertional shortness of breath. He states over the previous week he has noticed that his shortness of breath has been getting increasingly worse. He is unable to even get from his bed to his bedroom door without having to stop to take a deep breath. He states he has had a 10 pound weight gain over the previous 7 days. He denies symptoms of chest discomfort, dizziness or palpitations. He states he has had significant orthopnea as well. EKG reveals atrial fibrillation with mildly rapid ventricular response, heart rate 108. Chest x-ray indicative of mild heart failure with cardiomegaly. Laboratory data reviewed, WBC 8.6, hemoglobin 14.5, platelets 201, INR 3, sodium 145, potassium 3.9, creatinine 1.51, magnesium 2.0, NT proBNP 5670, troponin 0.021. Current cardiac medications include Coumadin, atorvastatin 80 mg daily, Lasix 60 mg twice a day and 20 mg in the afternoon, Zaroxolyn 2.5 mg Mondays and , Lopressor 100 mg twice a day and potassium supplementation. Most recent echocardiogram obtained January 2017 reveals preserved left ventricular systolic function with ejection fraction 55-60%, mild pulmonary hypertension with an RVSP of 38.4 mmHg, severely dilated left atrium, mild MR and mild TR. At the time of my exam: CONSTITUTIONAL: Denies fever. Denies chills. EYES: Denies blurred vision. Denies vision changes. Denies eye pain. EARS, NOSE, MOUTH & THROAT: Denies headache. Denies sore throat. Denies ear pain. CARDIOVASCULAR: Denies chest pain. Complains of shortness of breath. Complains of orthopnea. Denies PND. Denies palpitations. RESPIRATORY: Denies cough. GASTROINTESTINAL: Denies abdominal pain. Denies diarrhea. Denies constipation. Denies nausea. Denies vomiting. MUSCULOSKELETAL: Denies myalgias. INTEGUMENTARY: Denies pruitis. Denies rash. NEUROLOGIC: Denies numbness. Denies tingling. Denies weakness. PSYCHIATRIC: Denies anxiety. Denies depression. ENDOCRINE: Denies fatigue. Denies weight change. Denies polydipsia. Denies polyurina. GENITOURINARY: Denies burning, hematuria or urgency with micturation. HEMATOLOGIC: Denies history of anemia. Denies bleeding. Blood pressure 126/85 heart rate 95 afebrile maintaining oxygen saturation on nasal cannula GENERAL: This is a 47-year-old male in no apparent distress at the time of my examination. Morbidly obese. HEENT: Head is atraumatic, normocephalic. Pupils are equal, round. Sclerae anicteric. Conjunctivae are clear. Mucous membranes of the mouth are moist. Neck is supple. There is no jugular venous distention. No carotid bruit is heard. LUNGS: Clear to auscultation no wheezes, rales or rhonchi. No chest wall tenderness is noted on palpation or with deep breathing. Diminished bilaterally secondary to body habitus. HEART: Irregular rate and rhythm with systolic ejection murmur at the base, no rubs or gallops. S1 and S2 heard. ABDOMEN: Soft, nontender. Bowel sounds are heard. No organomegaly noted. Midline scarring noted. EXTREMITIES: Significant lower extremity edema with purple discoloration noted and no calf tenderness. VASCULAR: Radial and dorsalis pedis pulses palpated, no evidence of clubbing. NEUROLOGIC: Patient is awake, alert and oriented x3. ASSESSMENT Acute on chronic diastolic heart failure. Persistent atrial fibrillation on senior living anticoagulation with history of non- compliance with blood draws. Currently therapeutic. Coronary artery disease s/p angioplasty prox LAD and mid circumflex Chronic kidney disease, GFR 55. Stage 3a Hypertension Dyslipidemia Morbid obesity, BMI 59 PLAN Initiate on lasix IV 60 mg BID. Continued zaroxolyn, coumadin, lopressor and atorvastatin. Obtain 2D echocardiogram and doppler study to assess cardiac structure and function. Check daily weights and monitor intake and output for accurate evaluation of diuresis. Follow kidney function and electrolytes daily. 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 Further recommendations to follow based on clinical course. Thank you kindly for this consultation. Nurse Practitioner note has been reviewed, I agree with a documented findings and plan of care. Patient was seen and examined. Past Medical History Past Medical History: Atrial Fibrillation, Asthma, Coronary Artery Disease (CAD) , Chest Pain / Angina, Heart Failure, COPD, Deep Vein Thrombosis (DVT), Hyperlipidemia, Hypertension, Myocardial Infarction ([place]), Renal Disease, Sleep Apnea/CPAP/BIPAP, Thyroid Disorder, Vascular Disorder Additional Past Medical History / Comment(s): Chronic CHF, tracheobronchitis, CKD stage III, kidney stones, DVT L leg in 2004, KAMRYN without device use, colon abscess with bowel resection, multiple abdominal surgeries for a hiatal hernia that was complicated by prolonged hospitalization and prolonged ventilator dependent respiratory failure requiring a tracheostomy tube insertion, pvd- lower legs discolored/edematous, diverticular disease, chronic iron deficiency anemia, vertigo at times, Last Myocardial Infarction Date:: History of Any Multi-Drug Resistant Organisms: MRSA Date of last positivie culture/infection: 02/01/15 MDRO Source:: Abdomen Past Surgical History: Bowel Resection, Heart Catheterization With Stent, Hernia Repair Additional Past Surgical History / Comment(s): Colonoscopies, heart stents x 4, bowel resection with colostomy and colostomy reversal (removed a foot of pts colon)-2003, hernia repair with skin grafts and 2 fistula repairs (hospitalized for 1 year @[facility])-2010 Past Anesthesia/Blood Transfusion Reactions: No Reported Reaction Additional Past Anesthesia/Blood Transfusion Reaction / Comment(s): Pt has received blood in past without reaction-2010 Date of Last Stent Placement:: 03/28/2015 Smoking Status: Current every day smoker - Past Family History Mother Family Medical History: Osteoarthritis (OA), Pneumonia Additional Family Medical History / Comment(s): osteoporosis. arthroscopy surgery for knee Father Family Medical History: Liver Disease, Renal Disease Additional Family Medical History / Comment(s): triple heart bypass. liver transplant. aortic aneursym Medications and Allergies Home Medications Medication Instructions Recorded Confirmed Type Loratadine [Claritin] 10 mg PO DAILY 10/19/13 05/05/18 History Sertraline [Zoloft] 100 mg PO HS 10/19/13 05/05/18 History Nitroglycerin Sl Tabs [Nitrostat] 0.4 mg SUBLINGUAL Q5M PRN #30 tab 12/03/14 Rx Atorvastatin [Lipitor] 80 mg PO HS 03/25/15 05/05/18 History Folic Acid 1 mg PO BID 03/25/15 05/05/18 History Levothyroxine Sodium [Synthroid] 137 mcg PO QAM 03/25/15 05/05/18 History Budesonide/Formoterol Fumarate 2 puff INHALATION RT-BID 08/01/16 05/05/18 History [Symbicort 160-4.5 Mcg Inhaler] Metoprolol Tartrate [Lopressor] 100 mg PO BID 08/01/16 05/05/18 History Furosemide [Lasix] 20 mg PO DAILY@1200 01/31/17 05/05/18 History Potassium Chloride [Klor-Con 20] 20 meq PO BID 01/31/17 05/05/18 History Warfarin [Coumadin] 3.75 mg PO SUTUWETHFRSA 01/31/17 05/05/18 History Warfarin [Coumadin] 7.5 mg PO MO 01/31/17 05/05/18 History Calcitriol [Rocaltrol] 0.25 mcg PO MOFR 11/07/17 05/05/18 History Allopurinol [Zyloprim] 100 mg PO DAILY 12/17/17 05/05/18 History Metolazone [Zaroxolyn] 2.5 mg PO MOTH 12/17/17 05/05/18 History Furosemide [Lasix] 60 mg PO BID 12/20/17 05/05/18 History Ergocalciferol (Vitamin D2) 50,000 unit PO FR 05/05/18 05/05/18 History [Drisdol] Ferrous Sulfate [Feosol] 325 mg PO BID 05/05/18 05/05/18 History traMADol HCL [Ultram] 50 mg PO BID PRN 05/05/18 05/05/18 History Allergies Allergy/AdvReac Type Severity Reaction Status Date / Time adhesive Allergy "PLASTIC Verified 05/05/18 07:50 TAPE PEELS SKIN,PAPER TAPE IS OK" linezolid Allergy Unknown Verified 05/05/18 07:50 penicillin G Allergy Rash/Hives Verified 05/05/18 07:50 Cephalosporins AdvReac FEVER Verified 05/05/18 07:50 Physical Exam Vitals: Vital Signs Temp Pulse Pulse Resp BP BP Pulse Ox 05/05/18 13:05 97.7 F 95 20 126/85 98 05/05/18 10:11 98.1 F 95 22 109/71 97 05/05/18 05:30 97.8 F 107 H 24 128/78 99 Intake and Output 05/04/18 05/05/18 05/05/18 22:59 06:59 14:59 Output Total 1745 Balance -1745 Output: Urine 1745 Other: Voiding Method Urinal Weight 185.066 kg 183.796 kg Results 05/05/18 06:09 05/05/18 06:09 Cardiac Enzymes 05/05/18 05/05/18 Range/Units 06:09 06:09 AST 50 (17-59) U/L CK-MB (CK-2) 1.0 (0.0-2.4) ng/mL Troponin I 0.021 (0.000-0.034) ng/mL Coagulation 05/05/18 Range/Units 06:09 PT 26.9 H (9.0-12.0) sec APTT 42.9 H (22.0-30.0) sec CBC 05/05/18 Range/Units 06:09 WBC 8.6 (3.8-10.6) k/uL RBC 4.62 (4.30-5.90) m/uL Hgb 14.5 (13.0-17.5) gm/dL Hct 42.4 (39.0-53.0) % Plt Count 201 (150-450) k/uL Comprehensive Metabolic Panel 05/05/18 Range/Units 06:09 Sodium 145 (137-145) mmol/L Potassium 3.9 (3.5-5.1) mmol/L Chloride 111 H (98-107) mmol/L Carbon Dioxide 25 (22-30) mmol/L BUN 19 (9-20) mg/dL Creatinine 1.51 H (0.66-1.25) mg/dL Glucose 154 H (74-99) mg/dL Calcium 8.8 (8.4-10.2) mg/dL AST 50 (17-59) U/L ALT 36 (21-72) U/L Alkaline Phosphatase 87 (38-126) U/L Total Protein 7.2 (6.3-8.2) g/dL Albumin 3.6 (3.5-5.0) g/dL Current Medications Generic Name Dose Route Start Last Admin Trade Name Freq PRN Reason Stop Dose Admin Allopurinol 100 mg 05/06/18 09:00 Zyloprim PO DAILY ZURI Atorvastatin Calcium 80 mg 05/05/18 21:00 Lipitor PO HS [facility] Budesonide/Formoterol Fumarate 2 puff 05/05/18 20:00 Symbicort 160-4.5 Mcg Inhaler INHALATION RT-BID [facility] Calcitriol 0.25 mcg 05/05/18 13:00 Rocaltrol PO MoFr@1200 [facility] Ergocalciferol 50,000 unit 05/09/18 12:00 Vitamin D2 PO Fr@1200 [facility] Ferrous Sulfate 325 mg 05/05/18 21:00 Feosol PO BID [facility] Folic Acid 1 mg 05/05/18 21:00 Folic Acid PO BID [facility] Furosemide 60 mg 05/05/18 21:00 Lasix IV Q12HR [facility] Levothyroxine Sodium 137 mcg 05/06/18 06:30 Synthroid PO 0630 [facility] Loratadine 10 mg 05/06/18 09:00 Claritin PO DAILY [facility] Metolazone 2.5 mg 05/05/18 12:00 Zaroxolyn PO MOTH [facility] Metoprolol Tartrate 100 mg 05/05/18 21:00 Lopressor PO BID [facility] Nitroglycerin 0.4 mg 05/05/18 12:53 Nitrostat SUBLINGUAL Q5M PRN Chest Pain Potassium Chloride 20 meq 05/05/18 21:00 K-Dur 20 PO BID [facility] Sertraline HCl 100 mg 05/05/18 21:00 Zoloft PO HS [facility] Tramadol HCl 50 mg 05/05/18 12:53 05/05/18 13:09 Ultram PO 50 mg BID PRN Administration Moderate Pain Warfarin Sodium 3.75 mg 05/06/18 18:00 Coumadin PO SUTUWETHFRSA [facility] Warfarin Sodium 7.5 mg 05/05/18 18:00 Coumadin PO MO [facility] Intake and Output 05/04/18 05/05/18 05/05/18 22:59 06:59 14:59 Output Total 1745 Balance -1745 Output: Urine 1745 Other: Voiding Method Urinal Weight 185.066 kg 183.796 kg Patient Weight 05/06/18 06:59 Weight 183.796 kg 05/05/18 06:09 05/05/18 06:09
[2018-05-05] MEDS: METOLAZONE 2.5 MG TAB PO SCH (15:28)
--- NOTE | 2018-05-05 17:38 | P.CNPUL ---
History of Present Illness Consult date: 05/05/18 Reason for consult: dyspnea Chief complaint: Shortness of breath History of present illness: This is a 47-year-old white male with multiple medical problems including morbid obesity, chronic atrial fibrillation, coronary artery disease and previous angioplasty of mid circumflex in 2015, total occlusion of RCA, angioplasty of proximal LAD. Patient is also known to have history of diastolic congestive heart failure. Presented to the ER with 1 week history of increased shortness of breath, cough which is productive with whitish phlegm, no fever no chills no hemoptysis no chest pain. No nausea no vomiting no abdominal pain, no melena, no hematemesis, no dysuria and no frequency no urgency. Upon presentation and his chest x-ray showed congestive heart failure. His proBNP level was elevated about 5000, his EKG showed atrial fibrillation with slightly rapid ventricular response rate of 108. Troponin was 0.021. Patient had no evidence of leukocytosis. His electrolytes were normal however his creatinine was 1.51. Patient is compliant with his meds including Coumadin and simvastatin Zaroxolyn and Lasix. Patient also describes some swelling in lower extremities. Patient was admitted, already seen by cardiology, felt that his presentation is mostly a presentation of diastolic congestive heart failure. Last echocardiogram done about a year ago showed good LV function. Right-sided pressures were a bit elevated around 38. Review of Systems At the time of my exam: CONSTITUTIONAL: Denies fever. Denies chills. EYES: Denies blurred vision. Denies vision changes. Denies eye pain. EARS, NOSE, MOUTH & THROAT: Denies headache. Denies sore throat. Denies ear pain. CARDIOVASCULAR: Denies chest pain. Complains of shortness of breath. Complains of orthopnea. Denies PND. Denies palpitations. RESPIRATORY: Denies cough. GASTROINTESTINAL: Denies abdominal pain. Denies diarrhea. Denies constipation. Denies nausea. Denies vomiting. MUSCULOSKELETAL: Denies myalgias. INTEGUMENTARY: Denies pruitis. Denies rash. NEUROLOGIC: Denies numbness. Denies tingling. Denies weakness. PSYCHIATRIC: Denies anxiety. Denies depression. ENDOCRINE: Denies fatigue. Denies weight change. Denies polydipsia. Denies polyurina. GENITOURINARY: Denies burning, hematuria or urgency with micturation. HEMATOLOGIC: Denies history of anemia. Denies bleeding. Past Medical History Past Medical History: Atrial Fibrillation, Asthma, Coronary Artery Disease (CAD) , Chest Pain / Angina, Heart Failure, COPD, Deep Vein Thrombosis (DVT), Hyperlipidemia, Hypertension, Myocardial Infarction (CA), Renal Disease, Sleep Apnea/CPAP/BIPAP, Thyroid Disorder, Vascular Disorder Additional Past Medical History / Comment(s): Chronic CHF, tracheobronchitis, CKD stage III, kidney stones, DVT L leg in 2004, KAMRYN without device use, colon abscess with bowel resection, multiple abdominal surgeries for a hiatal hernia that was complicated by prolonged hospitalization and prolonged ventilator dependent respiratory failure requiring a tracheostomy tube insertion, pvd- lower legs discolored/edematous, diverticular disease, chronic iron deficiency anemia, vertigo at times, Last Myocardial Infarction Date:: History of Any Multi-Drug Resistant Organisms: MRSA Date of last positivie culture/infection: 02/01/15 MDRO Source:: Abdomen Past Surgical History: Bowel Resection, Heart Catheterization With Stent, Hernia Repair Additional Past Surgical History / Comment(s): Colonoscopies, heart stents x 4, bowel resection with colostomy and colostomy reversal (removed a foot of pts colon)-2003, hernia repair with skin grafts and 2 fistula repairs (hospitalized for 1 year @[facility])-2010 Past Anesthesia/Blood Transfusion Reactions: No Reported Reaction Additional Past Anesthesia/Blood Transfusion Reaction / Comment(s): Pt has received blood in past without reaction-2010 Date of Last Stent Placement:: 03/28/2015 Smoking Status: Current every day smoker - Past Family History Mother Family Medical History: Osteoarthritis (OA), Pneumonia Additional Family Medical History / Comment(s): osteoporosis. arthroscopy surgery for knee Father Family Medical History: Liver Disease, Renal Disease Additional Family Medical History / Comment(s): triple heart bypass. liver transplant. aortic aneursym Medications and Allergies Home Medications Medication Instructions Recorded Confirmed Type Loratadine [Claritin] 10 mg PO DAILY 10/19/13 05/05/18 History Sertraline [Zoloft] 100 mg PO HS 10/19/13 05/05/18 History Nitroglycerin Sl Tabs [Nitrostat] 0.4 mg SUBLINGUAL Q5M PRN #30 tab 12/03/14 Rx Atorvastatin [Lipitor] 80 mg PO HS 03/25/15 05/05/18 History Folic Acid 1 mg PO BID 03/25/15 05/05/18 History Levothyroxine Sodium [Synthroid] 137 mcg PO QAM 03/25/15 05/05/18 History Budesonide/Formoterol Fumarate 2 puff INHALATION RT-BID 08/01/16 05/05/18 History [Symbicort 160-4.5 Mcg Inhaler] Metoprolol Tartrate [Lopressor] 100 mg PO BID 08/01/16 05/05/18 History Furosemide [Lasix] 20 mg PO DAILY@1200 01/31/17 05/05/18 History Potassium Chloride [Klor-Con 20] 20 meq PO BID 01/31/17 05/05/18 History Warfarin [Coumadin] 3.75 mg PO SUTUWETHFRSA 01/31/17 05/05/18 History Warfarin [Coumadin] 7.5 mg PO MO 01/31/17 05/05/18 History Calcitriol [Rocaltrol] 0.25 mcg PO MOFR 11/07/17 05/05/18 History Allopurinol [Zyloprim] 100 mg PO DAILY 12/17/17 05/05/18 History Metolazone [Zaroxolyn] 2.5 mg PO MOTH 12/17/17 05/05/18 History Furosemide [Lasix] 60 mg PO BID 12/20/17 05/05/18 History Ergocalciferol (Vitamin D2) 50,000 unit PO FR 05/05/18 05/05/18 History [Drisdol] Ferrous Sulfate [Feosol] 325 mg PO BID 05/05/18 05/05/18 History traMADol HCL [Ultram] 50 mg PO BID PRN 05/05/18 05/05/18 History Allergies Allergy/AdvReac Type Severity Reaction Status Date / Time adhesive Allergy "PLASTIC Verified 05/05/18 07:50 TAPE PEELS SKIN,PAPER TAPE IS OK" linezolid Allergy Unknown Verified 05/05/18 07:50 penicillin G Allergy Rash/Hives Verified 05/05/18 07:50 Cephalosporins AdvReac FEVER Verified 05/05/18 07:50 Physical Exam Vitals: Vital Signs Temp Pulse Pulse Resp BP BP Pulse Ox 05/05/18 13:05 97.7 F 95 20 126/85 98 05/05/18 10:11 98.1 F 95 22 109/71 97 05/05/18 05:30 97.8 F 107 H 24 128/78 99 Intake and Output 05/05/18 05/05/18 05/05/18 06:59 14:59 22:59 Output Total 2320 Balance -2320 Output: Urine 1745 Stool 575 Other: Voiding Method Urinal Weight 185.066 kg 183.796 kg Physical Exam: Revealed a 47-year-old white male, obese, in no distress, on room air at present. Head: Atraumatic, normocephalic. HEENT:[Neck is supple.] [No neck masses.] [No thyromegaly.] PERRLA, EOMI, moist mucous membranes. Chest: [Diminished breath sounds at the bases with minimal crackles bilaterally. No rhonchi and no wheezes.] Cardiac Exam: [Irregular irregular rhythm. Normal S1 and S2, no S3 gallop, 2/6 systolic murmur thought the precordium.] Abdomen: [Morbidly obese, Soft, nontender, no megaly, no rebound, no guarding, normal bowel sounds.] Extremities: [No clubbing, chronic venous stasis changes noted bilaterally in both lower extremities. Brownish discoloration of lower extremities noted. No calf tenderness. 1+ bipedal edema noted. Neurological Exam: Alert oriented 3. [No focal neurologic deficit.] Psychiatric: Normal mood, affect, and mental status examination. Results - Laboratory Findings CBC and BMP: 05/05/18 06:09 05/05/18 06:09 PT/INR, D-dimer PT 26.9 sec (9.0-12.0) H 05/05/18 06:09 INR 3.0 (<1.2) H 05/05/18 06:09 Abnormal lab findings: Abnormal Labs 05/05/18 05/05/18 05/05/18 06:09 06:09 06:09 RDW 16.5 H PT INR APTT Chloride 111 H Creatinine 1.51 H Glucose 154 H Total Creatine Kinase 52 L 05/05/18 06:09 RDW PT 26.9 H INR 3.0 H APTT 42.9 H Chloride Creatinine Glucose Total Creatine Kinase - Diagnostic Findings Chest x-ray: image reviewed (Chest x-ray is consistent with pulmonary vascular congestion and pleural effusion. Coarsening of interstitial markings noted.) Assessment and Plan Assessment: Impression: 1 acute on chronic diastolic congestive heart failure. 2 chronic atrial fibrillation with variable ventricular rate. 3 morbid obesity. 4 chronic kidney disease, stage IIIa. 5 morbid obesity, BMI of 59. 6 history of benign essential hypertension 7 dyslipidemia 8 coronary artery disease and previous stents as noted in my HPI. 9 previous history of deep vein thrombosis 10 previous myocardial infarction 11 obstructive sleep apnea on CPAP. 12 previous history of respiratory failure requiring mechanical ventilation, and previous tracheostomy. Recommendation: Continue present treatment plan including diuretics, Coumadin, we'll continue to follow. Monitor daily electrolytes, and repeat chest x-ray in the next 24 hours. Patient is being followed by cardiology for his underlying cardiac issues. Time with Patient: Greater than 30
[2018-05-05] MEDS ORDERED: WARFARIN 7.5 MG TAB PO SCH (18:00)
[2018-05-05] MEDS ORDERED: SYMBICORT 160-4.5 MCG INHALER INHALATION SCH (20:00)
[2018-05-05] MEDS: POTASSIUM CHLORIDE ER 20 MEQ TAB.ER PO SCH (22:33)
[2018-05-05] MEDS: FERROUS SULFATE 325 MG TAB PO SCH (22:33)
[2018-05-05] MEDS: FUROSEMIDE 10 MG/ML 10 ML VIAL IV SCH (22:33)
[2018-05-05] MEDS: ATORVASTATIN 80 MG TAB PO SCH (22:33)
[2018-05-05] MEDS: METOPROLOL TARTRATE 50 MG TAB PO SCH (22:33)
[2018-05-06] MEDS: traMADol 50 MG TAB PO PRN ×4 (00:19→21:10)
[2018-05-06] MEDS: FOLIC ACID 1 MG TAB PO SCH ×3 (01:39→21:11)
[2018-05-06] MEDS: SERTRALINE 100 MG TAB PO SCH ×2 (01:39→21:11)
[2018-05-06] MEDS ORDERED: ACETAMINOPHEN TAB 325 MG TAB PO PRN (06:42)
[2018-05-06] MEDS: LEVOTHYROXINE 137 MCG TAB PO SCH (07:46)
[2018-05-06] MEDS: FERROUS SULFATE 325 MG TAB PO SCH ×2 (07:46→21:11)
[2018-05-06] MEDS: ALLOPURINOL 100 MG TAB PO SCH (07:46)
[2018-05-06] MEDS: FUROSEMIDE 10 MG/ML 10 ML VIAL IV SCH (07:47)
[2018-05-06] MEDS: LORATADINE 10 MG TAB PO SCH (07:48)
[2018-05-06] MEDS: METOPROLOL TARTRATE 50 MG TAB PO SCH ×2 (07:48→21:11)
[2018-05-06] MEDS: POTASSIUM CHLORIDE ER 20 MEQ TAB.ER PO SCH ×2 (07:49→21:11)
[2018-05-06] MEDS ORDERED: ASPIRIN 325 MG TAB PO SCH (09:00)
[2018-05-06 09:27] LABS: Albumin 3.8 g/dL (3.5-5.0); Calcium 9.4 mg/dL (8.4-10.2); Magnesium 1.8 mg/dL (1.6-2.3); Potassium 3.8 mmol/L (3.5-5.1); Total Bilirubin 1.7 mg/dL (0.2-1.3); Total Protein 7.3 g/dL (6.3-8.2)
--- NOTE | 2018-05-06 11:25 | ECHOF ---
Referral Reason:sob MEASUREMENTS -------- HEIGHT: 175.3 cm WEIGHT: 183.7 kg BP: RVIDd: 3.6 cm (< 3.3) IVSd: 1.4 cm (0.6 - 1.1) LVIDd: 5.6 cm (3.9 - 5.3) LVPWd: 1.5 cm (0.6 - 1.1) IVSs: 2.0 cm LVIDs: 3.3 cm LVPWs: 2.0 cm LA Diam: 4.6 cm (2.7 - 3.8) Ao Diam: 3.3 cm (2.0 - 3.7) AV Cusp: 2.1 cm (1.5 - 2.6) LA Diam: 2.8 cm (2.7 - 3.8) MV E Loco: 1.13 m/s MV DecT: 140 ms MV A Loco: 0.01 m/s MV E/A Ratio: 469.76 RAP: 5.00 mmHg RVSP: 10.02 mmHg FINDINGS -------- Resting tachycardia (HR>100bpm). This was a technically difficult study with suboptimal views. The left ventricular size is normal. There is moderate concentric left ventricular hypertrophy. O verall left ventricular systolic function is mildly impaired with, an EF between 45 - 50 %. The right ventricle is mildly enlarged. The left atrium is moderately dilated. The right atrium was not well visualized. 3 ml of Lumason was utilized for enhancement of images. There is mild aortic valve sclerosis. There is no evidence of aortic regurgitation. There is no e vidence of aortic stenosis. The mitral valve leaflets are mildly thickened. There is trace to mild mitral regurgitation. Trace tricuspid regurgitation present. Right ventricular systolic pressure is normal at < 35 mmHg. There is no evidence of pulmonary hypertension. The pulmonic valve was not well visualized. The aortic root size is normal. IVC Not well visulized. There is no pericardial effusion. CONCLUSIONS -------- 1. Resting tachycardia (HR>100bpm). 2. This was a technically difficult study with suboptimal views. 3. The left ventricular size is normal. 4. There is moderate concentric left ventricular hypertrophy. 5. Overall left ventricular systolic function is mildly impaired with, an EF between 45 - 50 %. 6. The right ventricle is mildly enlarged. 7. The left atrium is moderately dilated. 8. The right atrium was not well visualized. 9. 3 ml of Lumason was utilized for enhancement of images. 10. There is mild aortic valve sclerosis. 11. The mitral valve leaflets are mildly thickened. 12. There is trace to mild mitral regurgitation. 13. Trace tricuspid regurgitation present. 14. Right ventricular systolic pressure is normal at < 35 mmHg. 15. There is no evidence of pulmonary hypertension. 16. The pulmonic valve was not well visualized. 17. The aortic root size is normal. 18. IVC Not well visulized. 19. There is no pericardial effusion. OFFICE COMMUNICATION PROFESSOR: Reg Liu RDCS
[2018-05-06 12:04] LABS: INR 3.1 (<1.2)
--- NOTE | 2018-05-06 12:21 | P.PN ---
Subjective Progress Note Date: 05/06/18 Principal diagnosis: Shortness of breath This is a 47-year-old white male with multiple medical problems including morbid obesity, chronic atrial fibrillation, coronary artery disease and previous angioplasty of mid circumflex in 2014, total occlusion of RCA, angioplasty of proximal LAD. Patient is also known to have history of diastolic congestive heart failure. Presented to the ER with 1 week history of increased shortness of breath, cough which is productive with whitish phlegm, no fever no chills no hemoptysis no chest pain. No nausea no vomiting no abdominal pain, no melena, no hematemesis, no dysuria and no frequency no urgency. Upon presentation and his chest x-ray showed congestive heart failure. His proBNP level was elevated about 5000, his EKG showed atrial fibrillation with slightly rapid ventricular response rate of 108. Troponin was 0.021. Patient had no evidence of leukocytosis. His electrolytes were normal however his creatinine was 1.51. Patient is compliant with his meds including Coumadin and simvastatin Zaroxolyn and Lasix. Patient also describes some swelling in lower extremities. Patient was admitted, already seen by cardiology, felt that his presentation is mostly a presentation of diastolic congestive heart failure. Last echocardiogram done about a year ago showed good LV function. Right-sided pressures were a bit elevated around 38. On 05/06/2018 patient seen in follow-up on medical surgical floor. He states he still has severe exertional dyspnea, but is pretty comfortable at rest, lung sounds are diminished, no rhonchi, no rales no wheezes noted. Afebrile, on 4 L per nasal cannula his pulse ox is 90%. Patient does have underlying obstructive sleep apnea, but he has not been able to tolerate CPAP, in spite of trying different masks. Patient continues on IV diuretics, and he is maintaining negative fluid balance, negative 1328 mL over the last 24 hours. He is -1.2 kg last 24 hours. Remains in A. fib, with a controlled rate, his INR is 3.1, BP was done, and showed sodium of 141, potassium is 3.8, chloride is 97, CO2 is 35, UN is 21 and creatinine is 1.71, BNP is trending down, down to 4120. he denied any chest pain. No coughing, no phlegm production. Objective - Vital Signs Vital signs: Vital Signs Temp 97.8 F 05/06/18 05:00 Pulse 65 05/06/18 05:00 Resp 20 05/06/18 05:00 BP 119/78 05/06/18 05:00 Pulse Ox 90 L 05/06/18 05:00 Intake & Output 05/05/18 05/06/18 05/06/18 18:59 06:59 18:59 Intake Total 1000 1420 472 Output Total 2320 2325 1800 Balance -1320 -905 -1328 Weight 183.796 kg 182.5 kg Intake: Oral 1000 1420 472 Output: Urine 1745 1750 1800 Stool 575 575 Other: Voiding Method Urinal Urinal Urinal # Voids 2 - Exam Physical Exam: Revealed a 47-year-old white male, obese, in no distress, on room air at present. Head: Atraumatic, normocephalic. HEENT:[Neck is supple.] [No neck masses.] [No thyromegaly.] PERRLA, EOMI, moist mucous membranes. Chest: [Diminished breath sounds at the bases with minimal crackles bilaterally. No rhonchi and no wheezes.] Cardiac Exam: [Irregular irregular rhythm. Normal S1 and S2, no S3 gallop, 2/6 systolic murmur throughout the precordium.] Abdomen: [Morbidly obese, Soft, nontender, no megaly, no rebound, no guarding, normal bowel sounds.] Extremities: [No clubbing, chronic venous stasis changes noted bilaterally in both lower extremities. Brownish discoloration of lower extremities noted. No calf tenderness. 1+ bipedal edema noted. Neurological Exam: Alert oriented 3. [No focal neurologic deficit.] Psychiatric: Normal mood, affect, and mental status examination. - Labs CBC & Chem 7: 05/05/18 06:09 05/06/18 08:28 Labs: Abnormal Lab Results - Last 24 Hours (Table) 05/06/18 05/06/18 Range/Units 08:28 11:13 PT 28.0 H (9.0-12.0) sec INR 3.1 H (<1.2) Chloride 97 L (98-107) mmol/L Carbon Dioxide 35 H (22-30) mmol/L BUN 21 H (9-20) mg/dL Creatinine 1.71 H (0.66-1.25) mg/dL Glucose 138 H (74-99) mg/dL Total Bilirubin 1.7 H (0.2-1.3) mg/dL Microbiology - Last 24 Hours (Table) 05/05/18 06:09 Blood Culture - Preliminary Blood No Growth after 24 hours Assessment and Plan Plan: 1 acute on chronic diastolic congestive heart failure. 2 chronic atrial fibrillation with variable ventricular rate. 3 morbid obesity. 4 chronic kidney disease, stage IIIa. 5 morbid obesity, BMI of 59. 6 history of benign essential hypertension 7 dyslipidemia 8 coronary artery disease and previous stents as noted in my HPI. 9 previous history of deep vein thrombosis 10 previous myocardial infarction 11 obstructive sleep apnea intolerant to CPAP 12 previous history of respiratory failure requiring mechanical ventilation, and previous tracheostomy. Plan: Continue the IV diuretics, Lasix and Zaroxolyn, patient is anticoagulated with Coumadin for his A. fib, his A. fib is controlled. No complaints of worsening shortness of breath or chest pain. Cardiology is following. His proBNP is trending down. Patient does have underlying obstructive sleep apnea, but has been unable to tolerate CPAP. His echocardiogram results have been reviewed, patient has mild impairment of left ventricular systolic function. Continue with diuresis, daily weights, accurate I&O's. We will continue to follow I performed a history & physical examination of the patient and discussed their management with my nurse practitioner, Paola Tompkins. I reviewed the nurse practitioner's note and agree with the documented findings and plan of care. Lung sounds are diminished. The findings and the impression was discussed with the patient. I attest to the documentation by the nurse practitioner. Time with Patient: Less than 30
--- NOTE | 2018-05-06 14:25 | P.PN ---
Subjective This is a pleasant 47-year-old male past medical history significant for chronic persistent atrial fibrillation on long-term anticoagulation with Coumadin, coronary artery disease status post angioplasty of the mid circumflex artery in 2015, known total occlusion of the RCA, angioplasty of the proximal LAD, hypertension, dyslipidemia, chronic kidney disease and morbid obesity. He follows with Dr. JOHNNIE Wood in the office. He was started on IV lasix yesterday. Weight is down 3 kg since admission. He has a negative fluid balance of 2 liters in the previous 24 hours. He states he hasn't really been up moving around to see if his breathing is improving. He denies chest pain, shortness of breath at rest, palpitations or dizziness. Blood pressure 115/64 heart rate 57 afebrile. Laboratory data reviewed, INR 3.1, sodium 141, potassium 3.8, creatinine 1.71, magnesium 1.8, repeat NT proBNP 4120. Repeat echocardiogram reveals mildly impaired left ventricular systolic function with ejection fraction 45-50%. GENERAL: This is a 47-year-old male in no apparent distress at the time of my examination. Morbidly obese. HEENT: Head is atraumatic, normocephalic. Pupils are equal, round. Sclerae anicteric. Conjunctivae are clear. Mucous membranes of the mouth are moist. Neck is supple. There is no jugular venous distention. No carotid bruit is heard. LUNGS: Clear to auscultation no wheezes, rales or rhonchi. No chest wall tenderness is noted on palpation or with deep breathing. Diminished bilaterally secondary to body habitus. HEART: Irregular rate and rhythm with systolic ejection murmur at the base, no rubs or gallops. S1 and S2 heard. EXTREMITIES: Significant lower extremity edema with purple discoloration noted and no calf tenderness. ASSESSMENT Acute on chronic diastolic heart failure. Persistent atrial fibrillation on assisted anticoagulation with history of non- compliance with blood draws. Currently therapeutic. Coronary artery disease s/p angioplasty prox LAD and mid circumflex Chronic kidney disease, GFR 55. Stage 3a Hypertension Dyslipidemia Morbid obesity, BMI 59 PLAN Continue current medical regimen. He would benefit from another 24-48 hours of IV Lasix. Follow kidney function and electrolytes daily. Further recommendations to follow based upon clinical course. Nurse Practitioner note has been reviewed, I agree with a documented findings and plan of care. Patient was seen and examined. Objective - Vital Signs Vital signs: Vital Signs Temp 98.2 F 05/06/18 12:45 Pulse 57 L 05/06/18 12:45 Resp 16 05/06/18 12:45 BP 115/64 05/06/18 12:45 Pulse Ox 98 05/06/18 12:45 Intake & Output 05/05/18 05/06/18 05/06/18 18:59 06:59 18:59 Intake Total 1000 1420 693 Output Total 2320 2325 2250 Balance -9127 -291 -1824 Weight 183.796 kg 182.5 kg Intake: Oral 1000 1420 693 Output: Urine 1745 1750 2250 Stool 575 575 Other: Voiding Method Urinal Urinal Urinal # Voids 2 - Labs CBC & Chem 7: 05/05/18 06:09 05/06/18 08:28 Labs: Abnormal Lab Results - Last 24 Hours (Table) 05/06/18 05/06/18 Range/Units 08:28 11:13 PT 28.0 H (9.0-12.0) sec INR 3.1 H (<1.2) Chloride 97 L (98-107) mmol/L Carbon Dioxide 35 H (22-30) mmol/L BUN 21 H (9-20) mg/dL Creatinine 1.71 H (0.66-1.25) mg/dL Glucose 138 H (74-99) mg/dL Total Bilirubin 1.7 H (0.2-1.3) mg/dL Microbiology - Last 24 Hours (Table) 05/05/18 06:09 Blood Culture - Preliminary Blood No Growth after 24 hours
[2018-05-06] MEDS: WARFARIN 7.5 MG TAB PO SCH (18:09)
[2018-05-06] MEDS: ATORVASTATIN 80 MG TAB PO SCH (21:11)
[2018-05-06] MEDS: FUROSEMIDE 10 MG/ML 4 ML VIAL IV SCH (21:12)
--- NOTE | 2018-05-07 00:10 | PN ---
PROGRESS NOTE SUBJECTIVE: The patient is in negative, lost 4 pounds since he has been admitted on IV Lasix. His labs were reviewed. Ejection fraction 45-50 percent. He is morbidly obese. Lungs are rales at the bases. Heart is S1, S2. Neurologically he is alert. ASSESSMENT: 1. Acute on chronic diastolic heart failure. 2. Paroxysmal atrial fibrillation. 3. Obstructive sleep apnea compliant. 4. Coronary artery disease status post angioplasty in the past. 5. 3A Kidney disease. 6. Hypertension. 7. Dyslipidemia. 8. Morbid obesity. PLAN: Check electrolytes. Continue with IV Lasix. Await pulmonary and cardiac recommendations. MMODL / IJN: [id number] /
[2018-05-07] MEDS: traMADol 50 MG TAB PO PRN ×2 (03:18→08:26)
[2018-05-07] MEDS: LEVOTHYROXINE 137 MCG TAB PO SCH (05:52)
[2018-05-07 08:08] LABS: Calcium 9.6 mg/dL (8.4-10.2); Potassium 3.9 mmol/L (3.5-5.1)
[2018-05-07] MEDS: FOLIC ACID 1 MG TAB PO SCH ×2 (08:22→20:42)
[2018-05-07] MEDS: METOPROLOL TARTRATE 50 MG TAB PO SCH ×2 (08:22→20:42)
[2018-05-07] MEDS: FERROUS SULFATE 325 MG TAB PO SCH ×2 (08:22→20:42)
[2018-05-07] MEDS: ALLOPURINOL 100 MG TAB PO SCH (08:23)
[2018-05-07] MEDS: LORATADINE 10 MG TAB PO SCH (08:23)
[2018-05-07] MEDS: POTASSIUM CHLORIDE ER 20 MEQ TAB.ER PO SCH ×2 (08:23→20:42)
[2018-05-07] MEDS: FUROSEMIDE 10 MG/ML 4 ML VIAL IV SCH ×2 (08:23→20:42)
--- NOTE | 2018-05-07 11:09 | P.PN ---
Subjective Progress Note Date: 05/07/18 Principal diagnosis: Shortness of breath This is a 47-year-old white male with multiple medical problems including morbid obesity, chronic atrial fibrillation, coronary artery disease and previous angioplasty of mid circumflex in 2014, total occlusion of RCA, angioplasty of proximal LAD. Patient is also known to have history of diastolic congestive heart failure. Presented to the ER with 1 week history of increased shortness of breath, cough which is productive with whitish phlegm, no fever no chills no hemoptysis no chest pain. No nausea no vomiting no abdominal pain, no melena, no hematemesis, no dysuria and no frequency no urgency. Upon presentation and his chest x-ray showed congestive heart failure. His proBNP level was elevated about 5000, his EKG showed atrial fibrillation with slightly rapid ventricular response rate of 108. Troponin was 0.021. Patient had no evidence of leukocytosis. His electrolytes were normal however his creatinine was 1.51. Patient is compliant with his meds including Coumadin and simvastatin Zaroxolyn and Lasix. Patient also describes some swelling in lower extremities. Patient was admitted, already seen by cardiology, felt that his presentation is mostly a presentation of diastolic congestive heart failure. Last echocardiogram done about a year ago showed good LV function. Right-sided pressures were a bit elevated around 38. On 05/06/2018 patient seen in follow-up on medical surgical floor. He states he still has severe exertional dyspnea, but is pretty comfortable at rest, lung sounds are diminished, no rhonchi, no rales no wheezes noted. Afebrile, on 4 L per nasal cannula his pulse ox is 90%. Patient does have underlying obstructive sleep apnea, but he has not been able to tolerate CPAP, in spite of trying different masks. Patient continues on IV diuretics, and he is maintaining negative fluid balance, negative 1328 mL over the last 24 hours. He is -1.2 kg last 24 hours. Remains in A. fib, with a controlled rate, his INR is 3.1, BP was done, and showed sodium of 141, potassium is 3.8, chloride is 97, CO2 is 35, UN is 21 and creatinine is 1.71, BNP is trending down, down to 4120. he denied any chest pain. No coughing, no phlegm production. On 05/07/2018 patient seen in follow-up on medical surgical floor. He has extensively diuresed, he is in negative 5192 mL fluid balance over the last 24 hours, he remains on IV Lasix of 40 mg every 12 hours, he is less dyspneic with exertion, he has been ambulating to the bathroom. Lung sounds reveals coarse rales at the bases, overall better air entry noted bilaterally. Hemodynamically stable, we'll repeat today's chest x-ray. Afebrile, no chest pain. Room air pulse ox is 93%. Today's lab work has been reviewed, BNP was done, sodium is 139, potassium 3.9, chloride is 92, BUN is 31 and creatinine 1.7. Objective - Vital Signs Vital signs: Vital Signs Temp 97.7 F 05/07/18 04:30 Pulse 91 05/07/18 08:00 Resp 16 05/07/18 08:00 BP 109/59 05/07/18 04:30 Pulse Ox 93 L 05/07/18 04:30 Intake & Output 05/06/18 05/07/18 05/07/18 18:59 06:59 18:59 Intake Total 693 1040 Output Total 3300 3625 1050 Balance -2607 -2585 -1050 Weight 179.5 kg 179.5 kg Intake: Oral 693 1040 Output: Urine 3300 2475 475 Stool 1150 575 Other: Voiding Method Urinal Urinal Urinal # Voids 1 - Exam Physical Exam: Revealed a 47-year-old white male, obese, in no distress, on room air at present. Head: Atraumatic, normocephalic. HEENT:[Neck is supple.] [No neck masses.] [No thyromegaly.] PERRLA, EOMI, moist mucous membranes. Chest: [Diminished breath sounds at the bases with minimal crackles bilaterally. No rhonchi and no wheezes.] Cardiac Exam: [Irregular irregular rhythm. Normal S1 and S2, no S3 gallop, 2/6 systolic murmur throughout the precordium.] Abdomen: [Morbidly obese, Soft, nontender, no megaly, no rebound, no guarding, normal bowel sounds.] Extremities: [No clubbing, chronic venous stasis changes noted bilaterally in both lower extremities. Brownish discoloration of lower extremities noted. No calf tenderness. 1+ bipedal edema noted. Neurological Exam: Alert oriented 3. [No focal neurologic deficit.] Psychiatric: Normal mood, affect, and mental status examination. - Labs CBC & Chem 7: 05/05/18 06:09 05/07/18 06:26 Labs: Abnormal Lab Results - Last 24 Hours (Table) 05/06/18 05/07/18 Range/Units 11:13 06:26 PT 28.0 H (9.0-12.0) sec INR 3.1 H (<1.2) Chloride 92 L (98-107) mmol/L Carbon Dioxide 32 H (22-30) mmol/L BUN 31 H (9-20) mg/dL Creatinine 1.77 H (0.66-1.25) mg/dL Glucose 120 H (74-99) mg/dL Microbiology - Last 24 Hours (Table) 05/05/18 06:09 Blood Culture - Preliminary Blood No Growth after 48 hours Assessment and Plan Plan: 1 acute on chronic diastolic congestive heart failure. 2 chronic atrial fibrillation with variable ventricular rate. 3 morbid obesity. 4 chronic kidney disease, stage IIIa. 5 morbid obesity, BMI of 59. 6 history of benign essential hypertension 7 dyslipidemia 8 coronary artery disease and previous stents as noted in my HPI. 9 previous history of deep vein thrombosis 10 previous myocardial infarction 11 obstructive sleep apnea intolerant to CPAP 12 previous history of respiratory failure requiring mechanical ventilation, and previous tracheostomy. Plan: Continue IV diuretics and Zaroxolyn, chest x-ray has been ordered. Clinically patient is breathing easier, less dyspneic, we'll continue to closely follow, no complaints of chest pain, vital signs are stable. I performed a history & physical examination of the patient and discussed their management with my nurse practitioner, Paola Tompkins. I reviewed the nurse practitioner's note and agree with the documented findings and plan of care. Lung sounds are diminished. The findings and the impression was discussed with the patient. I attest to the documentation by the nurse practitioner. Time with Patient: Less than 30
--- NOTE | 2018-05-07 13:06 | P.PN ---
Subjective This is a pleasant 47-year-old male past medical history significant for chronic persistent atrial fibrillation on long-term anticoagulation with Coumadin, coronary artery disease status post angioplasty of the mid circumflex artery in 2015, known total occlusion of the RCA, angioplasty of the proximal LAD, hypertension, dyslipidemia, chronic kidney disease and morbid obesity. He follows with Dr. JOHNNIE Wood in the office. He is seen and examined sitting up in bed in no acute distress. Weight is down 6 kg since admission. The previous 24 hours he has a negative fluid balance of 5000 mL. Blood pressure 109/56 heart rate 90 afebrile maintaining oxygen saturation on room air. He states he has been up ambulating and his breathing has greatly improved. He denies symptoms of chest discomfort, shortness of breath, dizziness or palpitations. Laboratory data reviewed, creatinine 1.77, potassium 3.9, sodium 139. He was started on IV lasix yesterday. Weight is down 3 kg since admission. He has a negative fluid balance of 2 liters in the previous 24 hours. He states he hasn't really been up moving around to see if his breathing is improving. He denies chest pain, shortness of breath at rest, palpitations or dizziness. Blood pressure 115/64 heart rate 57 afebrile. Laboratory data reviewed, INR 3.1 , sodium 141, potassium 3.8, creatinine 1.71, magnesium 1.8, repeat NT proBNP 4120. Repeat echocardiogram reveals mildly impaired left ventricular systolic function with ejection fraction 45-50%. GENERAL: This is a 47-year-old male in no apparent distress at the time of my examination. Morbidly obese. HEENT: Head is atraumatic, normocephalic. Pupils are equal, round. Sclerae anicteric. Conjunctivae are clear. Mucous membranes of the mouth are moist. Neck is supple. There is no jugular venous distention. No carotid bruit is heard. LUNGS: Clear to auscultation no wheezes, rales or rhonchi. No chest wall tenderness is noted on palpation or with deep breathing. Diminished bilaterally secondary to body habitus. HEART: Irregular rate and rhythm with systolic ejection murmur at the base, no rubs or gallops. S1 and S2 heard. EXTREMITIES: Significant lower extremity edema with purple discoloration noted and no calf tenderness. Improved since admission. ASSESSMENT Acute on chronic diastolic heart failure. Persistent atrial fibrillation on oil heaterman anticoagulation with history of non- compliance with blood draws. Currently therapeutic. Coronary artery disease s/p angioplasty prox LAD and mid circumflex Chronic kidney disease, GFR 55. Stage 3a Hypertension Dyslipidemia Morbid obesity, BMI 59 PLAN Pt has diuresed extensively since admission with improvement in his symptoms. Can be transitioned to PO diuretics tomorrow. Continue current medical regimen. He would benefit from another 24-48 hours of IV Lasix. Follow kidney function and electrolytes daily. Further recommendations to follow based upon clinical course. Nurse Practitioner note has been reviewed, I agree with a documented findings and plan of care. Patient was seen and examined. Objective - Vital Signs Vital signs: Vital Signs Temp 97.1 F L 05/07/18 12:22 Pulse 90 05/07/18 12:22 Resp 16 05/07/18 12:22 BP 109/56 05/07/18 12:22 Pulse Ox 94 L 05/07/18 12:22 Intake & Output 05/06/18 05/07/18 05/07/18 18:59 06:59 18:59 Intake Total 693 1040 540 Output Total 3300 3625 1450 Balance -0567 -7365 -910 Weight 179.5 kg 179.5 kg Intake: Oral 693 1040 540 Output: Urine 3300 2475 875 Stool 1150 575 Other: Voiding Method Urinal Urinal Urinal # Voids 1 - Labs CBC & Chem 7: 05/05/18 06:09 05/07/18 06:26 Labs: Abnormal Lab Results - Last 24 Hours (Table) 05/07/18 Range/Units 06:26 Chloride 92 L (98-107) mmol/L Carbon Dioxide 32 H (22-30) mmol/L BUN 31 H (9-20) mg/dL Creatinine 1.77 H (0.66-1.25) mg/dL Glucose 120 H (74-99) mg/dL Microbiology - Last 24 Hours (Table) 05/05/18 06:09 Blood Culture - Preliminary Blood No Growth after 48 hours
--- NOTE | 2018-05-07 16:07 | XR ---
EXAMINATION TYPE: XR chest 2V DATE OF EXAM: 05/07/2018 COMPARISON: 05/05/2018 HISTORY: 47-year-old male follow-up CHF TECHNIQUE: Frontal and lateral views FINDINGS: Heart remains mildly enlarged. Diffuse interstitial and vascular prominence. Continued small, left gr eater than right pleural effusions. Some improving aeration from prior exam. IMPRESSION: 1. Some improvement though persistent mild CHF with pulmonary vascular congestion. 2. Continued small left greater than right pleural effusions.
[2018-05-07] MEDS: WARFARIN 7.5 MG TAB PO SCH (17:45)
[2018-05-07] MEDS: ATORVASTATIN 80 MG TAB PO SCH (20:42)
[2018-05-07] MEDS: SERTRALINE 100 MG TAB PO SCH (20:42)
[2018-05-07] MEDS: CALCIUM CARBONATE 500 MG CHEWABLE PO PRN (22:12)
--- NOTE | 2018-05-08 00:07 | PN ---
PROGRESS NOTE SUBJECTIVE: A 47-year-old white male with obstructive sleep apnea, severe anasarca-type changes, chronic kidney disease, morbid obesity. Weight down 6 kg since admission. Blood pressure 109/56, heart rate 80s to 90s, respiratory 12 to 14. Giving appropriate answers, sitting up. IV is helping. Ejection fraction is 45 to 50 on his heart and his breathing is improving. ASSESSMENT: 1. Diastolic heart failure. 2. Obstructive sleep apnea. 3. Morbid obesity. 4. Chronic persistent atrial fibrillation. 5. Coronary artery disease status post proximal LAD and mid circumflex stents. 6. Hypertension. 7. Dyslipidemia. 8. Morbid obesity. PLAN: Switch to oral Lasix. Continue on IV Lasix for another couple days and possible discharge home then. MMODL / IJN: [id number] /
[2018-05-08] MEDS: LEVOTHYROXINE 137 MCG TAB PO SCH (06:12)
[2018-05-08] MEDS: POTASSIUM CHLORIDE ER 20 MEQ TAB.ER PO SCH ×2 (08:09→22:15)
[2018-05-08] MEDS: FUROSEMIDE 20 MG TAB PO SCH ×2 (08:10→17:29)
[2018-05-08] MEDS: METOPROLOL TARTRATE 50 MG TAB PO SCH ×2 (08:10→22:07)
[2018-05-08] MEDS: FERROUS SULFATE 325 MG TAB PO SCH ×2 (08:10→22:08)
[2018-05-08] MEDS: FOLIC ACID 1 MG TAB PO SCH ×2 (08:11→22:08)
[2018-05-08] MEDS: LORATADINE 10 MG TAB PO SCH (08:11)
[2018-05-08] MEDS: ALLOPURINOL 100 MG TAB PO SCH (08:11)
[2018-05-08] MEDS: traMADol 50 MG TAB PO PRN (08:14)
[2018-05-08] MEDS ORDERED: FUROSEMIDE 20 MG TAB PO SCH (12:00)
[2018-05-08] MEDS: METOLAZONE 2.5 MG TAB PO SCH (12:58)
[2018-05-08] MEDS: HYDROcodone/APAP 5-325MG 1 EACH TAB PO PRN ×2 (13:37→22:15)
[2018-05-08] MEDS: WARFARIN 7.5 MG TAB PO SCH (17:29)
--- NOTE | 2018-05-08 19:33 | PN ---
PROGRESS NOTE Mr. Cerna is a 47-year-old male known history of coronary disease, morbid obesity, hypertension, atrial fibrillation, who presented with symptoms of progressive dyspnea and peripheral edema. He is feeling better today. His breathing is better. He is ambulating. He has mild cough. He has been switched to oral diuretic and is tolerating that nicely. He is on Lasix 60 mg twice a day and 20 at noontime. Lipitor 80 mg daily. Metolazone 2.5 mg 4 times a week, metoprolol tartrate 100 mg twice a day and Coumadin. PHYSICAL EXAMINATION: Blood pressure running in the 130/70 with a heart in the 80s. LUNGS: Clear. HEART: Irregular regular. S1, S2. No S3. No rub. ABDOMEN: Soft, obese, nontender. EXTREMITIES: With chronic skin changes and mild edema. LAB DATA: Revealed an INR of 3.1, BUN and creatinine 31 and 1.77, potassium 3.9. IMPRESSION: 1. Congestive heart failure, improving. 2. History of coronary disease. 3. Morbid obesity. 4. Mild ischemic cardiomyopathy. 5. Hypertension. 6. Chronic persistent atrial fibrillation. 7. History of chronic kidney disease. RECOMMENDATION: From the cardiac standpoint, we will continue present therapy. I would expect he should be able to be discharged home tomorrow and followed as an outpatient with Dr. Uriel Wood. MMNOHEMIL / AUREAN: [id number] /
[2018-05-08 21:18] VITALS: RESP 16
[2018-05-08] MEDS: SERTRALINE 100 MG TAB PO SCH (22:07)
[2018-05-08] MEDS: ATORVASTATIN 80 MG TAB PO SCH (22:08)
[2018-05-09] MEDS: CALCIUM CARBONATE 500 MG CHEWABLE PO PRN (00:16)
[2018-05-09] MEDS: HYDROcodone/APAP 5-325MG 1 EACH TAB PO PRN (03:32)
[2018-05-09 07:18] VITALS: BP 104/72; PULSE 86; TEMP 97.1
[2018-05-09] MEDS: FERROUS SULFATE 325 MG TAB PO SCH (08:07)
[2018-05-09] MEDS: METOPROLOL TARTRATE 50 MG TAB PO SCH (08:07)
[2018-05-09] MEDS: LEVOTHYROXINE 137 MCG TAB PO SCH (08:07)
[2018-05-09] MEDS: FOLIC ACID 1 MG TAB PO SCH (08:08)
[2018-05-09] MEDS: POTASSIUM CHLORIDE ER 20 MEQ TAB.ER PO SCH (08:08)
[2018-05-09] MEDS: FUROSEMIDE 20 MG TAB PO SCH (08:08)
[2018-05-09] MEDS: LORATADINE 10 MG TAB PO SCH (08:09)
[2018-05-09] MEDS: ALLOPURINOL 100 MG TAB PO SCH (08:09)
[2018-05-09] MEDS: traMADol 50 MG TAB PO PRN (08:11)
--- NOTE | 2018-05-09 08:51 | PN ---
PROGRESS NOTE SUBJECTIVE: 47-year-old white male, history of coronary disease, morbid obesity, atrial fibrillation, hypertension; became short of breath. He states he has got cough and congestion today. He is tolerating oral diuresis. Possible do another chest x-ray and add an antibiotic. He has been titrated on his cardiac medicines. Blood pressure is 130/70. Heart rate in the 80s. Lungs: Scattered rhonchi. Heart: Irregular, irregular rhythm. Abdomen: Soft, obese. Edema type changes, chronic stasis dermatitis. BUN is 31, creatinine 1.77. ASSESSMENT: 1. Congestive heart failure. 2. History of coronary artery disease. 3. Morbid obesity. 4. Mild ischemic cardiomyopathy. 5. Hypertension. 6. Persistent atrial fibrillation. 7. Chronic kidney disease. 8. Possible bronchitis. He wants to be discharged home tomorrow possibly. Continue current treatments. Possibly given antibiotic. MMODL / IJN: [id number] /
[2018-05-09] MEDS ORDERED: ERGOCALCIFEROL 50,000 UNIT CAP PO SCH (12:00)
--- NOTE | 2018-05-09 19:34 | PN ---
PROGRESS NOTE HISTORY: Mr. Cerna is a 47-year-old male with a known history of coronary disease, morbid obesity, atrial fibrillation, presented with worsening dyspnea. He is feeling better today. His breathing is stable. He is denying any chest pain. No dizziness. No palpitations. He denies any nausea. He continues to be on Lasix 60 mg twice a day with 20 mg at noon time, metoprolol tartrate 100 mg twice a day, metolazone 4 times a week, Lipitor 80 mg daily, Coumadin. PHYSICAL EXAMINATION: Blood pressure 104/70 with a heart in the 80s. LUNGS: Clear. HEART: Irregularly irregular. S1, S2. No S3. No rub. ABDOMEN: Soft, obese, nontender. EXTREMITIES: Chronic stasis. No significant edema. LAB DATA: BUN and creatinine 31 and 1.77, potassium 3.9. INR is 3.1. IMPRESSION: 1. Congestive heart failure, improving. 2. Mild ischemic cardiomyopathy. 3. Coronary artery disease. 4. Chronic persistent atrial fibrillation. 5. Chronic kidney disease. 6. Obesity. 7. Hypertension. RECOMMENDATIONS: Patient will be discharged home today and followed as an outpatient with Dr. Wood. MMODL / IJN: [id number] /
== END 2018-05-09 14:05 | disposition home or self-care (01) | DRG 291 ==
LOC: EC 05:28 → 3NMEDONC 07:40 → OBSVTOIN 05-06 08:37
PROVIDERS: ADMIT Family Medicine; ATTEND Family Medicine
DX: I13.0 Hypertensive heart and chronic kidney disease with heart failure and stage 1 through stage 4 chronic kidney disease, or unspecified chronic kidney disease (principal); I50.33 Acute on chronic diastolic (congestive) heart failure; I48.1 Persistent atrial fibrillation; Z68.43 Body mass index [BMI] 50.0-59.9, adult; E66.01 Morbid (severe) obesity due to excess calories; E78.5 Hyperlipidemia, unspecified; F17.200 Nicotine dependence, unspecified, uncomplicated; G47.33 Obstructive sleep apnea (adult) (pediatric); I25.10 Atherosclerotic heart disease of native coronary artery without angina pectoris; I25.2 Old myocardial infarction; I25.5 Ischemic cardiomyopathy; I25.82 Chronic total occlusion of coronary artery; I27.20 Pulmonary hypertension, unspecified; I48.0 Paroxysmal atrial fibrillation; I48.2 Chronic atrial fibrillation; I87.2 Venous insufficiency (chronic) (peripheral); J44.9 Chronic obstructive pulmonary disease, unspecified; K43.9 Ventral hernia without obstruction or gangrene; N18.3 Chronic kidney disease, stage 3 (moderate); Z79.01 Long term (current) use of anticoagulants; Z79.51 Long term (current) use of inhaled steroids; Z79.899 Other long term (current) drug therapy; Z82.62 Family history of osteoporosis; Z86.718 Personal history of other venous thrombosis and embolism; Z87.442 Personal history of urinary calculi; Z90.49 Acquired absence of other specified parts of digestive tract; Z91.19 Patient's noncompliance with other medical treatment and regimen; Z95.5 Presence of coronary angioplasty implant and graft; Z79.890 Hormone replacement therapy; Z88.1 Allergy status to other antibiotic agents; Z88.0 Allergy status to penicillin; Z88.8 Allergy status to other drugs, medicaments and biological substances
CPT/HCPCS: 36415; 71046; 80048; 80053; 82550; 82553; 83735; 83880; 84484; 85025; 85610; 85730; 87040; 90686; 93005; 93306; 96374; 99285

== ENCOUNTER 2018-05-31 13:19 | Inpatient (IN) | payer MEDICARE, OTHER ==
[2018-05-31] MEDS ORDERED: IPRATROPIUM-ALBUTEROL 3 ML NEB INHALATION STA (13:43)
[2018-05-31] MEDS ORDERED: SODIUM CHLORIDE 0.9% 1,000 ML IV STA (13:43)
--- NOTE | 2018-05-31 14:02 | ED ---
Pediatric SOB HPI - General Source: patient, RN notes reviewed, old records reviewed Mode of arrival: ambulatory Limitations: no limitations <Severiano Ann - Last Filed: 05/31/18 16:07> <Adam Gonzalez - Last Filed: 05/31/18 16:15> - General Chief Complaint: Shortness of Breath Stated Complaint: SOB Time Seen by Provider: 05/31/18 13:35 - History of Present Illness Initial Comments: Patient 48-year-old male significant past medical history for CHF, COPD, presenting to the emergency room today with chief complaint of increased shortness of breath over the last 3 or 4 days. He does admit to increased cough congestion with positive sputum production. Patient states that her white color. Patient does admit that he try breathing treatments at home with little relief the symptoms. He does admit that today walking into the hospital he felt increased shortness of breath also had some chest pain. He states that radiates to the right shoulder. Patient denies any chest pain currently. Patient denies any other complaints symptoms. Patient denies any recent fever, chills, back pain, abdominal pain, nausea or vomiting, numbness or tingling, headaches or visual changes, or any other complaints. (Severiano Ann) - Related Data Home Medications Medication Instructions Recorded Confirmed Loratadine [Claritin] 10 mg PO DAILY 10/19/13 05/31/18 Sertraline [Zoloft] 100 mg PO HS 10/19/13 05/31/18 Atorvastatin [Lipitor] 80 mg PO HS 03/25/15 05/31/18 Folic Acid 1 mg PO BID 03/25/15 05/31/18 Levothyroxine Sodium [Synthroid] 137 mcg PO QAM 03/25/15 05/31/18 Budesonide/Formoterol Fumarate 2 puff INHALATION RT-BID 08/01/16 05/31/18 [Symbicort 160-4.5 Mcg Inhaler] Metoprolol Tartrate [Lopressor] 100 mg PO BID 08/01/16 05/31/18 Furosemide [Lasix] 20 mg PO DAILY@1200 01/31/17 05/31/18 Potassium Chloride [Klor-Con 20] 20 meq PO BID 01/31/17 05/31/18 Warfarin [Coumadin] 3.75 mg PO SUTUWETHFRSA 01/31/17 05/31/18 Warfarin [Coumadin] 7.5 mg PO MO 01/31/17 05/31/18 Calcitriol [Rocaltrol] 0.25 mcg PO MOFR 11/07/17 05/31/18 Allopurinol [Zyloprim] 100 mg PO DAILY 12/17/17 05/31/18 Metolazone [Zaroxolyn] 2.5 mg PO MOTH 12/17/17 05/31/18 Furosemide [Lasix] 60 mg PO BID 12/20/17 05/31/18 Ergocalciferol (Vitamin D2) 50,000 unit PO FR 05/05/18 05/31/18 [Drisdol] Ferrous Sulfate [Iron (65 MG 325 mg PO BID 05/05/18 05/31/18 Elemental)] traMADol HCL [Ultram] 50 mg PO BID PRN 05/05/18 05/31/18 Previous Rx's Medication Instructions Recorded Nitroglycerin Sl Tabs [Nitrostat] 0.4 mg SUBLINGUAL Q5M PRN #30 tab 12/03/14 Calcium Carbonate [Tums] 1,000 mg PO TID PRN chew 05/08/18 Allergies Allergy/AdvReac Type Severity Reaction Status Date / Time adhesive Allergy "PLASTIC Verified 05/31/18 14:55 TAPE PEELS SKIN,PAPER TAPE IS OK" linezolid Allergy Unknown Verified 05/31/18 14:55 penicillin G Allergy Rash/Hives Verified 05/31/18 14:55 Cephalosporins AdvReac FEVER Verified 05/31/18 14:55 Review of Systems ROS Other: All systems not noted in ROS Statement are negative. <Severiano Ann - Last Filed: 05/31/18 16:07> ROS Other: All systems not noted in ROS Statement are negative. <Adam Gonzalez - Last Filed: 05/31/18 16:15> ROS Statement: Those systems with pertinent positive or pertinent negative responses have been documented in the HPI. Past Medical History Past Medical History: Atrial Fibrillation, Asthma, Coronary Artery Disease (CAD) , Chest Pain / Angina, Heart Failure, COPD, Deep Vein Thrombosis (DVT), Hyperlipidemia, Hypertension, Myocardial Infarction ([place]), Renal Disease, Sleep Apnea/CPAP/BIPAP, Thyroid Disorder, Vascular Disorder Additional Past Medical History / Comment(s): Chronic CHF, tracheobronchitis, CKD stage III, kidney stones, DVT L leg in 2004, KAMRYN without device use, colon abscess with bowel resection, multiple abdominal surgeries for a hiatal hernia that was complicated by prolonged hospitalization and prolonged ventilator dependent respiratory failure requiring a tracheostomy tube insertion, pvd- lower legs discolored/edematous, diverticular disease, chronic iron deficiency anemia, vertigo at times, Last Myocardial Infarction Date:: History of Any Multi-Drug Resistant Organisms: MRSA Date of last positivie culture/infection: 02/01/15 MDRO Source:: Abdomen Past Surgical History: Bowel Resection, Heart Catheterization With Stent, Hernia Repair Additional Past Surgical History / Comment(s): Colonoscopies, heart stents x 4, bowel resection with colostomy and colostomy reversal (removed a foot of pts colon)-2003, hernia repair with skin grafts and 2 fistula repairs (hospitalized for 1 year @[facility])-2010 Past Anesthesia/Blood Transfusion Reactions: No Reported Reaction Additional Past Anesthesia/Blood Transfusion Reaction / Comment(s): Pt has received blood in past without reaction-2010 Date of Last Stent Placement:: 03/28/2015 Past Psychological History: Depression Smoking Status: Current every day smoker - Past Family History Mother Family Medical History: Osteoarthritis (OA), Pneumonia Additional Family Medical History / Comment(s): osteoporosis. arthroscopy surgery for knee Father Family Medical History: Liver Disease, Renal Disease Additional Family Medical History / Comment(s): triple heart bypass. liver transplant. aortic aneursym <Severiano Ann - Last Filed: 05/31/18 16:07> General Exam Limitations: no limitations <Severiano Ann - Last Filed: 05/31/18 16:07> <Adam Gonzalez - Last Filed: 05/31/18 16:15> - General Exam Comments Initial Comments: General: The patient is awake and alert, in no distress, and does not appear acutely ill. Eye: There is normal conjunctiva bilaterally. No signs of icterus. Ears, nose, mouth and throat: There are moist mucous membranes and no oral lesions. Neck: The neck is supple, there is no tenderness or JVD. Cardiovascular: There is a regular rate and rhythm. No murmur, rub or gallop is appreciated. Positive orthopnea. Respiratory: Diminished lung sounds bilaterally. respirations are non-labored, breath sounds are equal. No stridor, rales, or rhonchi. Musculoskeletal: Normal ROM, no tenderness. Strength 5/5. Sensation intact. Pulses equal bilaterally 2+. Bilateral lower extremity edema. Neurological: A&O x 3. CN II-XII intact, There are no obvious motor or sensory deficits. Coordination appears grossly intact. Speech is normal. Skin: Skin is warm and dry and no rashes or lesions are noted. Psychiatric: Cooperative, appropriate mood & affect, normal judgment. (Severiano Ann) Course <Severiano Ann - Last Filed: 05/31/18 16:07> <Adam Gonzalez - Last Filed: 05/31/18 16:15> Vital Signs 05/31/18 05/31/18 05/31/18 13:24 13:59 14:24 Temperature 98.8 F Pulse Rate 94 102 H Respiratory 30 H 20 Rate Blood Pressure 111/75 O2 Sat by Pulse 93 L Oximetry 05/31/18 14:37 Temperature Pulse Rate 106 H Respiratory Rate Blood Pressure O2 Sat by Pulse Oximetry - Reevaluation(s) Reevaluation #1: 05/31/18 15:37 PA supervision: I proceeded [id number] evaluation the patient he presents with complaints of 3-4 days of progressively worsening shortness of breath some exertional dyspnea. Not been helpful medication. Exam is consistent with COPD and CHF exacerbation. This is confirmed with lab work. The patient does have diminished breath sounds. He does have peripheral edema. He does have orthopnea and exertional dyspnea. I do agree with the assessment and plan. The patient has recently been at Dr. Nguyen service and will be admitted back to the service. 05/31/18 16:14 (Adam Gonzalez) Medical Decision Making - Lab Data Result diagrams: 05/31/18 13:10 05/31/18 13:10 <Severiano Ann - Last Filed: 05/31/18 16:07> - Lab Data Result diagrams: 05/31/18 13:10 05/31/18 13:10 <Adam Gonzalez - Last Filed: 05/31/18 16:15> - Medical Decision Making EKG performed at 1340: Shows A. fib with RVR at 102 bpm. QRS 90. QT/QTC 380/ 495. No acute ST changes. Patient's chest x-ray reviewed does show increased CHF. Patient's labs reviewed elevated BNP greater than 5000. Patient does have to sit up at bedside and is unable to lay flat. Patient was given breathing treatment here in the emergency room with little relief of the symptoms. Patient started on Lasix given 40 mg IV. We'll be continued. Case discussed with attending physician Dr. Gonzalez who did discuss case with admitting physician Dr. Myers ( [facility]) - Lab Data Lab Results 05/31/18 05/31/18 05/31/18 Range/Units 13:10 13:10 13:10 WBC 7.0 (3.8-10.6) k/uL RBC 4.64 (4.30-5.90) m/uL Hgb 13.4 (13.0-17.5) gm/dL Hct 43.0 (39.0-53.0) % MCV 92.8 (80.0-100.0) fL MCH 28.9 (25.0-35.0) pg MCHC 31.1 (31.0-37.0) g/dL RDW 17.1 H (11.5-15.5) % Plt Count 182 (150-450) k/uL Neutrophils % 75 % Lymphocytes % 13 % Monocytes % 5 % Eosinophils % 5 % Basophils % 1 % Neutrophils # 5.2 (1.3-7.7) k/uL Lymphocytes # 0.9 L (1.0-4.8) k/uL Monocytes # 0.4 (0-1.0) k/uL Eosinophils # 0.3 (0-0.7) k/uL Basophils # 0.1 (0-0.2) k/uL Poikilocytosis Slight Anisocytosis Slight PT (9.0-12.0) sec INR (<1.2) APTT (22.0-30.0) sec Sodium 141 (137-145) mmol/L Potassium 3.6 (3.5-5.1) mmol/L Chloride 105 (98-107) mmol/L Carbon Dioxide 27 (22-30) mmol/L Anion Gap 9 mmol/L BUN 22 H (9-20) mg/dL Creatinine 1.60 H (0.66-1.25) mg/dL Est GFR (CKD-EPI)AfAm 59 (>60 ml/min/1.73 sqM) Est GFR (CKD-EPI)NonAf 51 (>60 ml/min/1.73 sqM) Glucose 237 H (74-99) mg/dL Calcium 8.7 (8.4-10.2) mg/dL Total Bilirubin 1.3 (0.2-1.3) mg/dL AST 64 H (17-59) U/L ALT 57 (21-72) U/L Alkaline Phosphatase 89 (38-126) U/L Total Creatine Kinase 79 (55-170) U/L CK-MB (CK-2) 1.5 (0.0-2.4) ng/mL CK-MB (CK-2) Rel Index 1.9 Troponin I <0.012 (0.000-0.034) ng/mL NT-Pro-B Natriuret Pep pg/mL Total Protein 6.6 (6.3-8.2) g/dL Albumin 3.4 L (3.5-5.0) g/dL 05/31/18 05/31/18 Range/Units 13:10 13:10 WBC (3.8-10.6) k/uL RBC (4.30-5.90) m/uL Hgb (13.0-17.5) gm/dL Hct (39.0-53.0) % MCV (80.0-100.0) fL MCH (25.0-35.0) pg MCHC (31.0-37.0) g/dL RDW (11.5-15.5) % Plt Count (150-450) k/uL Neutrophils % % Lymphocytes % % Monocytes % % Eosinophils % % Basophils % % Neutrophils # (1.3-7.7) k/uL Lymphocytes # (1.0-4.8) k/uL Monocytes # (0-1.0) k/uL Eosinophils # (0-0.7) k/uL Basophils # (0-0.2) k/uL Poikilocytosis Anisocytosis PT 21.3 H (9.0-12.0) sec INR 2.2 H (<1.2) APTT 45.8 H (22.0-30.0) sec Sodium (137-145) mmol/L Potassium (3.5-5.1) mmol/L Chloride (98-107) mmol/L Carbon Dioxide (22-30) mmol/L Anion Gap mmol/L BUN (9-20) mg/dL Creatinine (0.66-1.25) mg/dL Est GFR (CKD-EPI)AfAm (>60 ml/min/1.73 sqM) Est GFR (CKD-EPI)NonAf (>60 ml/min/1.73 sqM) Glucose (74-99) mg/dL Calcium (8.4-10.2) mg/dL Total Bilirubin (0.2-1.3) mg/dL AST (17-59) U/L ALT (21-72) U/L Alkaline Phosphatase (38-126) U/L Total Creatine Kinase (55-170) U/L CK-MB (CK-2) (0.0-2.4) ng/mL CK-MB (CK-2) Rel Index Troponin I (0.000-0.034) ng/mL NT-Pro-B Natriuret Pep 5080 pg/mL Total Protein (6.3-8.2) g/dL Albumin (3.5-5.0) g/dL Disposition Is patient prescribed a controlled substance at d/c from ED?: No Time of Disposition: 16:07 <Severiano Ann - Last Filed: 05/31/18 16:07> <Adam Gonzalez - Last Filed: 05/31/18 16:15> Clinical Impression: COPD exacerbation, CHF exacerbation Disposition: ADMITTED IP TO THIS HOSP Condition: Good Referrals: Nonstaff,Physician [REFERRING] - 1-2 days
--- NOTE | 2018-05-31 14:14 | XR ---
EXAMINATION TYPE: XR chest 2V DATE OF EXAM: 05/31/2018 COMPARISON: 05/07/2018 HISTORY: Short of breath TECHNIQUE: Frontal and lateral views of the chest are obtained. FINDINGS: Heart is enlarged. There is blunting of costophrenic angles. There is mild pulmonary conge stion. There are chest leads. IMPRESSION: Mild heart failure that is worse than last exam. Stable bilateral pleural effusions.
[2018-05-31 14:38] LABS: Potassium 3.6 mmol/L (3.5-5.1)
[2018-05-31 14:39] LABS: Albumin 3.4 g/dL (3.5-5.0); Calcium 8.7 mg/dL (8.4-10.2); Total Bilirubin 1.3 mg/dL (0.2-1.3); Total Protein 6.6 g/dL (6.3-8.2)
[2018-05-31] MEDS ORDERED: FUROSEMIDE 10 MG/ML 4 ML VIAL IV STA (14:41)
[2018-05-31 14:43] LABS: Anisocytosis Slight; Basophils # (A) 0.1 k/uL (0-0.2); Basophils % (A) 1 %; Eosinophils # (A) 0.3 k/uL (0-0.7); Eosinophils % (A) 5 %; HGB 13.4 gm/dL (13.0-17.5); Lymphocytes # (A) 0.9 k/uL (1.0-4.8); Lymphocytes % (A) 13 %; MCH 28.9 pg (25.0-35.0); MCHC 31.1 g/dL (31.0-37.0); MCV 92.8 fL (80.0-100.0); Mean Platelet Volume 7.5; Monocytes # (A) 0.4 k/uL (0-1.0); Monocytes % (A) 5 %; Neutrophils # (A) 5.2 k/uL (1.3-7.7); Neutrophils % (A) 75 %; Platelet Count 182 k/uL (150-450); Poikilocytosis Slight; RBC 4.64 m/uL (4.30-5.90); RDW 17.1 % (11.5-15.5)
[2018-05-31 14:44] LABS: INR 2.2 (<1.2); Partial Thromboplastin Time 45.8 sec (22.0-30.0); Prothrombin Time 21.3 sec (9.0-12.0)
[2018-05-31 14:46] LABS: Creatine Kinase 79 U/L (55-170)
[2018-05-31 15:00] LABS: Creatine Kinase MB 1.5 ng/mL (0.0-2.4); Troponin I <0.012 ng/mL (0.000-0.034)
[2018-05-31] MEDS ORDERED: ONDANSETRON 4 MG/2 ML VIAL IVP PRN (16:09)
[2018-05-31] MEDS ORDERED: NALOXONE 0.4 MG/ML 1 ML VIAL IV PRN (16:09)
[2018-05-31] MEDS ORDERED: CALCIUM CARBONATE 500 MG CHEWABLE PO PRN (19:51)
[2018-05-31] MEDS ORDERED: NITROGLYCERIN SL TABS 0.4 MG TAB SUBLINGUAL PRN (19:51)
[2018-05-31 19:59] LABS: Glucose,Whole Blood 142 mg/dL (75-99)
[2018-05-31] MEDS: FERROUS SULFATE 325 MG TAB PO SCH (21:12)
[2018-05-31] MEDS: ATORVASTATIN 80 MG TAB PO SCH (21:12)
[2018-05-31] MEDS: WARFARIN 7.5 MG TAB PO SCH (21:12)
[2018-05-31] MEDS: FOLIC ACID 1 MG TAB PO SCH (21:12)
[2018-05-31] MEDS: METOPROLOL TARTRATE 50 MG TAB PO SCH (21:12)
[2018-05-31] MEDS: POTASSIUM CHLORIDE ER 20 MEQ TAB.ER PO SCH (21:13)
[2018-05-31] MEDS: SERTRALINE 100 MG TAB PO SCH (21:13)
[2018-05-31] MEDS: SYMBICORT 160-4.5 MCG INHALER INHALATION SCH (21:32)
[2018-05-31] MEDS: FUROSEMIDE 10 MG/ML 4 ML VIAL IV SCH (23:43)
[2018-05-31] MEDS: traMADol 50 MG TAB PO PRN (23:45)
[2018-06-01 06:03] LABS: Glucose,Whole Blood 176 mg/dL (75-99)
[2018-06-01] MEDS: LEVOTHYROXINE 137 MCG TAB PO SCH (06:11)
[2018-06-01 07:02] LABS: Anisocytosis Slight; Basophils # (A) 0.1 k/uL (0-0.2); Basophils % (A) 1 %; Eosinophils # (A) 0.4 k/uL (0-0.7); Eosinophils % (A) 5 %; HCT 43.4 % (39.0-53.0); HGB 13.9 gm/dL (13.0-17.5); Hypochromasia Slight; Lymphocytes # (A) 1.3 k/uL (1.0-4.8); Lymphocytes % (A) 19 %; MCH 30.2 pg (25.0-35.0); MCHC 31.9 g/dL (31.0-37.0); MCV 94.7 fL (80.0-100.0); Mean Platelet Volume 7.6; Monocytes # (A) 0.4 k/uL (0-1.0); Monocytes % (A) 5 %; Neutrophils # (A) 4.7 k/uL (1.3-7.7); Neutrophils % (A) 67 %; Platelet Count 173 k/uL (150-450); Poikilocytosis Slight; RBC 4.59 m/uL (4.30-5.90); RDW 16.7 % (11.5-15.5)
[2018-06-01 07:21] LABS: Albumin 3.5 g/dL (3.5-5.0); Calcium 8.6 mg/dL (8.4-10.2); Potassium 4.2 mmol/L (3.5-5.1); Total Bilirubin 1.3 mg/dL (0.2-1.3); Total Protein 6.8 g/dL (6.3-8.2)
[2018-06-01] MEDS: IPRATROPIUM-ALBUTEROL 3 ML NEB INHALATION PRN ×2 (08:58→20:57)
[2018-06-01] MEDS: SYMBICORT 160-4.5 MCG INHALER INHALATION SCH ×2 (08:58→20:57)
[2018-06-01] MEDS: METOPROLOL TARTRATE 50 MG TAB PO SCH ×3 (09:04→20:57)
[2018-06-01] MEDS: POTASSIUM CHLORIDE ER 20 MEQ TAB.ER PO SCH ×2 (09:04→20:57)
[2018-06-01] MEDS: FERROUS SULFATE 325 MG TAB PO SCH ×2 (09:04→20:57)
[2018-06-01] MEDS: ALLOPURINOL 100 MG TAB PO SCH (09:04)
[2018-06-01] MEDS: LORATADINE 10 MG TAB PO SCH (09:04)
[2018-06-01] MEDS: FOLIC ACID 1 MG TAB PO SCH ×2 (09:04→20:57)
[2018-06-01] MEDS: FUROSEMIDE 10 MG/ML 4 ML VIAL IV SCH (09:04)
[2018-06-01] MEDS: traMADol 50 MG TAB PO PRN (10:11)
[2018-06-01] MEDS: HYDROcodone/APAP 5-325MG 1 EACH TAB PO PRN (12:18)
--- NOTE | 2018-06-01 14:38 | CONS ---
CONSULTATION Maximo Cerna is a morbidly obese patient who is about 48 years of age, underwent previous PCI and also has chronic persistent atrial fibrillation on Coumadin with a fairly acceptable rate control. He has seen been in and out of the hospital with exacerbation of a combination of systolic and diastolic heart failure on multiple occasions. He came in yesterday in the afternoon with complaints of having increasing shortness of breath for the last 3-4 days. Also has some cough with some sputum production. He feels his shortness of breath has improved since he arrived. He is actually resting comfortably. PAST MEDICAL HISTORY: 1. Remarkable for CAD with prior PCI, details are not available. 2. Chronic persistent atrial fibrillation. 3. Multiple hospitalizations with exacerbation of CHF. 4. Obstructive sleep apnea syndrome. 5. Bronchial asthma. 6. History of some thyroid disorder. Patient uses a CPAP. MEDICATIONS: At home include Claritin, Zoloft, Lipitor, Lopressor 100 mg b.i.d., iron supplements, Coumadin with INR that seems to be therapeutic, Zaroxolyn 2.5 mg daily twice a week and he also takes Lasix 60 mg in the morning and 20 mg in the afternoon. PHYSICAL EXAMINATION: Blood pressure is 120/70, pulse rate is about 90-100, irregular HEENT is unremarkable. Fundus was not examined by me. Neck is supple. There is JVD of 1 cm. No carotid bruit. Heart exam reveals S1, S2 with irregular rhythm, short systolic murmur. Lungs reveal diminished air entry both bases. Abdomen is soft, nontender. Lower extremities reveal diminished pulses. Central nervous system grossly within normal limits without focal deficits. LAB DATA: Revealed a proBNP of over 5000 and a troponin level that is unremarkable. His creatinine is elevated to 1.6. IMPRESSION: 1. Exacerbation of systolic and diastolic heart failure in a patient with known ischemic heart disease. 2. Hypertension. 3. Chronic atrial fibrillation. 4. Morbid obesity. 5. Sleep apnea syndrome and uses BiPAP. RECOMMENDATION: I am recommending that we increase the Lasix to 60 mg q.8 hours IV push, increase Lopressor to 100 mg t.i.d., add aspirin 81 mg daily. Based on clinical course I will make further recommendations but hopefully patient can be discharged in the next 24-48 hours. I discussed my thoughts in detail with the patient. Thank you very much for the consult. MMODL / IJN: [id number] /
[2018-06-01] MEDS ORDERED: ceFAZolin 500 MG in DEXTROSE/WATER 1 50ML.BAG IVPB SCH (16:00)
--- NOTE | 2018-06-01 16:48 | US ---
EXAMINATION TYPE: US venous doppler duplex LE DATE OF EXAM: 06/01/2018 4:36 PM COMPARISON: US 2016 CLINICAL HISTORY: Bilateral leg swelling. . Bilateral leg swelling, history of left leg DVT, patient on blood thinners, morbidly obese patient. SIDE PERFORMED: Bilateral TECHNIQUE: The lower extremity deep venous system is examined utilizing real time linear array sonog vadim with graded compression, doppler sonography and color-flow sonography. VESSELS IMAGED: External Iliac Vein (EIV) Common Femoral Vein Deep Femoral Vein Greater Saphenous Vein * Femoral Vein Popliteal Vein Small Saphenous Vein * Proximal Calf Veins (* superficial vessels) Technically difficult and limited study due to patient body habitus and bilateral leg swelling Right Leg: Appears negative for DVT Left Leg: Positive for DVT mid femoral vein through mid popliteal vein showing partial compression a nd flow Grayscale, color doppler, spectral doppler imaging performed of the deep veins of the bilateral lower extremities. There is normal flow, compressibility, vascular waveforms in the right lower extremity . IMPRESSION: Suboptimal study with persistent or recurrent DVT in the left lower extremity identified .
[2018-06-01] MEDS: FUROSEMIDE 10 MG/ML 10 ML VIAL IV SCH ×2 (17:21→23:31)
[2018-06-01] MEDS: WARFARIN 7.5 MG TAB PO SCH (17:23)
[2018-06-01 20:32] LABS: INR 2.1 (<1.2); Prothrombin Time 20.3 sec (9.0-12.0)
--- NOTE | 2018-06-01 20:54 | CT ---
EXAMINATION TYPE: CT angio chest DATE OF EXAM: 06/01/2018 COMPARISON: NONE HISTORY: DVT, SOB. Hx asthma, COPD, HBP, heart diease, renal disease CT DLP: 1058.2 mGycm. Automated Exposure Control for Dose Reduction was Utilized. CONTRAST: CTA scan of the thorax is performed with IV Contrast, patient injected with 100 mL of Isovue 370, pul monary embolism protocol. MIP Images are created on CT scanner and reviewed. FINDINGS: Exam noted suboptimal due to patient's large body habitus. LUNGS: There is some respiratory motion artifact degradation seen. There are small to moderate size r ight pleural effusion with associated right basilar compressive atelectasis. There is tiny left basil ar pleural fluid collection. There is patchy left basilar linear atelectasis and/or scarring. Elevate d left hemidiaphragm is present. There is left basilar lingular nodule or nodular consolidation measu ring 14 x 9 mm axial image 92. MEDIASTINUM: There is satisfactory enhancement of the pulmonary artery and its branches, there is no CT evidence for pulmonary embolism. There are prominent bilateral hilar lymph nodes. No significan t pericardial effusion is seen. Cardiomegaly is appreciated. At least moderate Coronary artery calcif ication is present which is noted marker for coronary artery disease. OTHER: Exaggerated thoracic kyphosis is seen. Visualized portion of liver is hypodense consistent wit h fatty infiltration. IMPRESSION: 1. No CT evidence for acute pulmonary embolism. 2. Cardiomegaly with small to moderate size right pleural effusion and tiny left pleural effusion. Mi ld bilateral alveolar edema still present. Correlate for CHF exacerbation. 3. Bilateral hilar adenopathy, consider further clinical workup. 4. There is 1.4 x 0.9 cm lingular left basilar nodule or nodular consolidation, favor atelectasis and /or focal infiltrate. Consider short-term CT follow-up in 3-6 months time or possibly PET/CT. 5. Coronary artery calcification noted.
[2018-06-01] MEDS: SERTRALINE 100 MG TAB PO SCH (20:57)
[2018-06-01] MEDS: ATORVASTATIN 80 MG TAB PO SCH (20:57)
--- NOTE | 2018-06-01 23:12 | HP ---
HISTORY AND PHYSICAL CHIEF COMPLAINT: A 48-year-old white male admitted with acute respiratory failure, acute congestive heart failure exacerbation, leg swelling severe on his left leg compared to his right leg which is new. Ordered a Doppler of his leg showed a positive DVT despite therapeutic Coumadin. We may have to switch him to a different blood thinner. I will consult Hematology for this. He has had some chest pain radiating to his right shoulder. Shortness of breath after past 3 to 4 days of 12 to 14 pounds weight gain. Some positive white sputum production. MEDICATIONS: Medications at home include: 1. Claritin 10 mg daily. 2. Zoloft 100 mg daily. 3. Lipitor 80 mg daily. 4. Folic acid 1 mg b.i.d. 5. Synthroid 137 mcg daily. 6. Symbicort 160/4.5 two puffs b.i.d. 7. Lopressor 100 mg b.i.d. 8. Lasix 20 mg daily. 9. Klor-Con 20 mEq b.i.d. 10.Coumadin 3.75 on Saturday, Saturday, Saturday, , Saturday, Saturday, 7.5 mg on Saturday. 11.Rocaltrol 0.25 mcg p.o. on Saturday and Saturday. 12.Zyloprim 100 mg daily for gout. 13.Zaroxolyn 2.5 mg on Saturday and . 14.Lasix 60 mg p.o. b.i.d. 15.Vitamin D 50,000 units once a week. 16.Ferrous sulfate 325 b.i.d. 17.Tramadol 50 b.i.d. REVIEW OF SYSTEMS: 14-point review of system, pain is not under control, severe swelling in his legs, requesting increase in pain medicine. PAST MEDICAL HISTORY: Atrial fibrillation, congestive heart failure, coronary artery disease, history of DVT, dyslipidemia, hypertension, myocardial infarction, renal disease, sleep apnea, hypothyroidism, vasculitis, chronic CHF, DVT left leg in 2004, obstructive sleep apnea, noncompliant, history of MRSA in father. FAMILY HISTORY: Liver disease, renal disease in mother, osteoporosis. PHYSICAL EXAM: VITAL SIGNS: Reviewed. Endocrine appears to have some breathing. He is on 2 L oxygen and does not appear acutely ill. BMI is over 50. LUNGS: Show rales at the bases. CARDIOVASCULAR: S1, S2. No murmurs, rubs or gallops. SKIN: No rash, excoriation or bruising. PSYCH: Fair mood and affect. Temp 90 8.811, blood pressure 111/75, O2 is 93% on room air. ASSESSMENT: 1. Acute deep venous thrombosis left leg. 2. Congestive heart failure/chronic obstructive pulmonary disease exacerbation. PLAN: Admit the patient. Consult Hematology for possible different blood thinner for DVT. Do CTA of the chest, rule out PE. Please see further orders. MMODL / IJN: [id number] /
[2018-06-01] MEDS: APIXABAN 5 MG TAB PO SCH (23:31)
[2018-06-02] MEDS: traMADol 50 MG TAB PO PRN ×2 (00:33→09:45)
[2018-06-02] MEDS: LEVOTHYROXINE 137 MCG TAB PO SCH (06:10)
[2018-06-02] MEDS: IPRATROPIUM-ALBUTEROL 3 ML NEB INHALATION PRN ×2 (08:13→20:13)
[2018-06-02] MEDS: SYMBICORT 160-4.5 MCG INHALER INHALATION SCH ×2 (08:14→20:13)
[2018-06-02] MEDS ORDERED: METOLAZONE 2.5 MG TAB PO SCH ×2 (09:00)
[2018-06-02] MEDS: APIXABAN 5 MG TAB PO SCH ×2 (09:38→20:45)
[2018-06-02] MEDS: FUROSEMIDE 10 MG/ML 10 ML VIAL IV SCH (09:38)
[2018-06-02] MEDS: LORATADINE 10 MG TAB PO SCH (09:38)
[2018-06-02] MEDS: ASPIRIN 81 MG PO SCH (09:38)
[2018-06-02] MEDS: POTASSIUM CHLORIDE ER 20 MEQ TAB.ER PO SCH ×2 (09:38→20:45)
[2018-06-02] MEDS: FERROUS SULFATE 325 MG TAB PO SCH ×2 (09:38→20:45)
[2018-06-02] MEDS: FOLIC ACID 1 MG TAB PO SCH ×2 (09:38→20:45)
[2018-06-02] MEDS: METOPROLOL TARTRATE 50 MG TAB PO SCH ×3 (09:38→20:46)
[2018-06-02] MEDS: ALLOPURINOL 100 MG TAB PO SCH (09:38)
[2018-06-02] MEDS ORDERED: CALCITRIOL 0.25 MCG CAP PO SCH (12:00)
--- NOTE | 2018-06-02 12:21 | CDI ---
Documentation Clarification Form Date: 06/02/2018 12:13:24 PM From: Dee Dee HollisARPIT, CCDS Admit Date: 05/31/2018 3:36:00 PM Patient Name: Maximo Cerna Visit Number: [id number] Discharge Date: ATTENTION: The Clinical Documentation Specialists (CDI) and [facility] Coding Staff appreciate your assistance in clarifying documentation. Please respond to the clarification below the line at the bottom and electronically sign. The CDI & [facility] Coding staff will review the response and follow-up if needed. Please note: Queries are made part of the Legal Health Record. If you have any questions, please contact the author of this message via ITS. Dr. Bean Nguyen: The patient presented with the following respiratory symptoms: SOB, cough & congestion, chest pain radiating to his right shoulder. History/Risk Factors: Combined systolic & diastolic CHF, COPD, Atrial fibrillation, DVTs, Hyperlipidemia, Hypertension, Renal Disease, AKMRYN, Chronic DVTs, CAD, CA & stents. Home nebulizer dependent. Tobacco use: Current smoker. Clinical Indicators: Presented with acute exacerbation of CHF & COPD & bilateral leg swelling. Vital signs: R 30^, PO 93 ra Lung/Breathing assessment: Cough & SOB LAB: PT 21.3^, INR 2.2^, APTT 45.8^, BUN 22^, Cr 1.60, Gluc 237^ RAD: CXR: Mild heart failure worse than previous exam, Stable bilateral pleural effusions. Treatment: Albuterol INH, IV fl 20, IV Narcan, IV Lasix, IV Zofran, Nitro sl, O2 2Lnc In your professional opinion, can you please clarify if these findings signify one of the following conditions? Specificity of Respiratory Failure: o With hypercapnia? o With hypoxia? o Other Diagnosis, please specify o Unable to determine (Last Revision: September 2017) MTDD
[2018-06-02 14:11] VITALS: BMI 57.7
[2018-06-02] MEDS: DILTIAZEM ORAL 60 MG TAB PO SCH ×2 (14:41→20:48)
[2018-06-02] MEDS: FUROSEMIDE 80 MG TAB PO SCH (16:55)
[2018-06-02] MEDS ORDERED: WARFARIN 7.5 MG TAB PO SCH (18:00)
--- NOTE | 2018-06-02 19:34 | CONS ---
CONSULTATION This is a 48-year-old male with a history of CHF, morbid obesity, COPD, sleep apnea syndrome, atrial fibrillation, angina, DVT, hyperlipidemia, hypertension, myocardial infarction, hypothyroidism and a multitude of other major medical problems. He comes into the emergency room complaining of shortness of breath. The patient states it has been going on for 3 or 4 days. He admits to gaining about 15 pounds in the last 4 or 5 days. He apparently decided that he was going to eat pickles and drink some pickle juice for hand cramping, and the patient gained quite a bit of weight. He came in with increasing chest congestion, coughing and sputum production. Chest x-ray showed cardiomegaly and significant cephalization and fluid overload. The patient was admitted for heart failure primarily. The patient denies any fever or chills. Coughing up minimal phlegm. No chest pain or chest discomfort. The patient has been here many, many times. His allergies and medications are reviewed. His medical history is quite extensive and includes: 1. Atrial fibrillation. 2. COPD. 3. CAD. 4. Angina. 5. Heart failure. 6. DVT. 7. Hyperlipidemia. 8. Hypertension. 9. Myocardial infarction. 10.Chronic renal disease. 11.Sleep apnea syndrome. 12.Hypothyroidism. 13.Kidney stones. 14.Noncompliance with CPAP. 15.Bowel resection secondary to abscess of the colon. 16.Multiple abdominal surgeries for hiatal hernia. 17.Prolonged respiratory failure with ventilator dependence and previous tracheostomy. 18.Peripheral vascular disease. 19.Diverticular disease. 20.Chronic iron deficiency, anemia among other things. SURGICAL HISTORY: Includes: 1. Bowel resection. 2. Multiple hernia repairs. 3. Heart catheterization. 4. Stent. 5. Colonoscopy. 6. Colostomy reversal. 7. Multiple other surgical procedures. SOCIAL HISTORY: Positive for ongoing tobacco use and nicotine addiction. FAMILY HISTORY: Positive for osteoarthritis, pneumonia, osteoporosis, bypass surgery, liver transplant and aortic aneurysm. REVIEW OF SYSTEMS: CONSTITUTIONAL: Fatigue. NEUROLOGIC: Negative. HEENT: Negative. CARDIOVASCULAR: Negative. PULMONARY: Shortness of breath, chest congestion, minimal cough. GI: Negative. : Negative. RHEUMATOLOGIC/IMMUNOLOGIC: Negative. DERMATOLOGIC: Negative. PHYSICAL EXAMINATION: Current vital signs are reviewed. Temperature is 98.6, heart rate 80, respiratory rate 20, blood pressure 107/57, mean 73, two-liter saturation 95%. Appears in no acute distress. HEENT examination is grossly unremarkable. NECK: Supple. Cardiovascular examination reveals distant heart sounds. S1, S2 normal. Heart rate 80. No distinct murmur noted. LUNGS: Bibasilar crackles. Some coarse rhonchi. Breath sounds are diminished throughout. Abdomen is obese. Multiple scars from previous surgeries. Extremities reveal some mild edema. Skin without rash. There were some areas of ecchymoses. Neurologic examination is brief but nonfocal. Chest x-ray from May 31 shows fluid overload and small bilateral effusions. Doppler study from June 01 shows a left leg DVT. CT angiogram from June 01 shows no evidence of PE, but evidence of cardiomegaly with small to moderate right- sided pleural effusion and tiny left pleural effusion. The CT scan was consistent with heart failure. LAB DATA: Reviewed. White count 7, hemoglobin 13.9, hematocrit 43.4, platelet count 173, 000. PT/INR were 20.3 and 2.1, respectively. Sodium, potassium, chloride, CO2 all normal. Anion gap normal. BUN and creatinine were 23 and 1.63. N-terminal proBNP was elevated at 5080. Medications are reviewed. Currently the patient is on appropriate medications from the pulmonary standpoint, including DuoNeb and Symbicort. Corticosteroids are not needed. He is getting some antibiotics as prescribed by Dr. Nguyen. ASSESSMENT: 1. Shortness of breath,primarily secondary to congestive heart failure. 2. History of chronic atrial fibrillation. 3. Coronary artery disease. 4. Angina pectoris. 5. Deep venous thrombosis. 6. Hyperlipidemia. 7. Hypertension. 8. Previous myocardial infarction. 9. History of sleep apnea syndrome. 10.Stage III chronic kidney disease. 11.Hypothyroidism. 12.Peripheral vascular disease. 13.Previous multiple abdominal procedures, as noted above. 14.Previous history of prolonged mechanical ventilation requiring tracheostomy. 15.Multiple other medical problems and comorbidities. PLAN: Please see my orders. The patient's medications are appropriate. He is on DuoNeb and Symbicort. I do not believe from the pulmonary standpoint he would benefit from corticosteroids. Doubt need for antibiotics. He does not seem to be having much in the way of COPD problems. Will continue to follow. Prognosis is poor. MMODL / IJN: [id number] / [facility] CENTERCarole
--- NOTE | 2018-06-02 20:13 | PN ---
PROGRESS NOTE HISTORY: Mr. Cerna is doing much better today, breathing easier. Denies chest pain. He is in atrial fib, rate control is still not very optimal. I will continue current medications, increase activity. PHYSICAL EXAM: S1 and S2 heard normally with irregular rhythm, short systolic murmur. Lungs reveal improved air entry. Abdomen and lower exams are unchanged. PLAN: Continue current medications and see how he does. Overall, patient's ventricular rate seems to be somewhat better controlled with a higher dose of beta ariella. He has LV dysfunction but ejection fraction is in the range of 40% to 45%. Based on clinical course, I will make further recommendations. Apparently, there is a question of DVT and he has been switched over to apixaban by Dr. Nguyen. I do not see any rationale for this since patient is well anticoagulated and the DVT does not appear to be acute DVT, it is probably more or less chronic DVT. Patient can be discharged probably in the next 24 to 48 hours. MMODL / IJN: [id number] /
[2018-06-02] MEDS: ATORVASTATIN 80 MG TAB PO SCH (20:45)
[2018-06-02] MEDS: SERTRALINE 100 MG TAB PO SCH (20:45)
--- NOTE | 2018-06-03 00:01 | PN ---
PROGRESS NOTE SUBJECTIVE: Yaw[age]at[age]aw[age]-old white male with diastolic CHF, obstructive sleep apnea, DVT of the left leg, recurrent despite Coumadin therapy. He has been switched to Eliquis because of this reason. His breathing is improved. Vital signs are stable. CARDIOVASCULAR: S1, S2. LUNGS: Transmitted upper airway sounds. HEMATOLOGY: Negative Homans. VASCULAR: Left leg moderate effusion and swelling compared to the right leg. ASSESSMENT: 1. Deep venous thrombosis of the left leg, recurrent. 2. Congestive heart failure. 3. Obstructive sleep apnea. 4. Diabetes mellitus. 5. Hypertension. Continue current treatment with Eliquis. Possible discharge in the morning. Will switch his Lasix from IV to oral. MMODL / IJN: [id number] /
[2018-06-03] MEDS: HYDROcodone/APAP 5-325MG 1 EACH TAB PO PRN ×2 (01:40→08:57)
[2018-06-03] MEDS: LEVOTHYROXINE 137 MCG TAB PO SCH (05:58)
[2018-06-03] MEDS: SYMBICORT 160-4.5 MCG INHALER INHALATION SCH (07:29)
[2018-06-03] MEDS: IPRATROPIUM-ALBUTEROL 3 ML NEB INHALATION PRN (07:29)
[2018-06-03 08:54] VITALS: BP 117/50; PULSE 110; RESP 18; TEMP 98.2
[2018-06-03] MEDS: APIXABAN 5 MG TAB PO SCH (08:54)
[2018-06-03] MEDS: ALLOPURINOL 100 MG TAB PO SCH (08:54)
[2018-06-03] MEDS: FOLIC ACID 1 MG TAB PO SCH (08:55)
[2018-06-03] MEDS: DILTIAZEM ORAL 60 MG TAB PO SCH (08:55)
[2018-06-03] MEDS: POTASSIUM CHLORIDE ER 20 MEQ TAB.ER PO SCH (08:55)
[2018-06-03] MEDS: LORATADINE 10 MG TAB PO SCH (08:55)
[2018-06-03] MEDS: FERROUS SULFATE 325 MG TAB PO SCH (08:55)
[2018-06-03] MEDS: ASPIRIN 81 MG PO SCH (08:55)
[2018-06-03] MEDS: METOPROLOL TARTRATE 50 MG TAB PO SCH (08:55)
[2018-06-03] MEDS: FUROSEMIDE 80 MG TAB PO SCH (08:55)
--- NOTE | 2018-06-03 13:53 | P.PN ---
Subjective Progress Note Date: 06/03/18 Principal diagnosis: Shortness of breath, related to congestive heart failure This is a 48-year-old white male patient that was admitted for acute exacerbation of congestive heart failure, with both systolic and diastolic heart failure. Patient presented with increasing dyspnea, weight gain. This x- ray showed blunting of costophrenic angles, and mild pulmonary congestion. CT angios is negative for any evidence of PE, showed cardiomegaly with small to moderate size right pleural effusion and tiny left pleural effusion, mild bilateral alveolar edema, hilar adenopathy, and left basilar nodule nodule consolidation could be related to atelectasis or focal infiltrate. Be followed as an outpatient basis. The medical history includes COPD, CAD, history of chronic congestive heart failure, previous history of DVT, hypertension and hyperlipidemia, previous myocardial infarction, chronic kidney disease, sleep apnea syndrome, hypothyroidism, morbid obesity, noncompliance with CPAP, referral vascular disease, diverticular disease. Patient has been diuresed, today he is feeling better. He's a -5315 mL fluid balance, is down 3.3 kg in the last 24 hours. Lung sounds are diminished, rhonchi or wheezes. Sats on 2 L per nasal cannula is 91%. Room air pulse ox was 87%. He is afebrile. Today' s labs have been reviewed, ABG was essentially unremarkable, electrolytes were within normal limits, and renal profile is stable with BUN of 23 creatinine of 1.63. Patient is feeling better, and she is requesting to go home today. Objective - Vital Signs Vital signs: Vital Signs Temp 98.2 F 06/03/18 08:00 Pulse 110 H 06/03/18 08:00 Resp 18 06/03/18 08:00 BP 117/50 06/03/18 08:00 Pulse Ox 91 L 06/03/18 11:37 Intake & Output 06/02/18 06/03/18 06/03/18 18:59 06:59 18:59 Intake Total 960 200 Output Total 3500 2775 500 Balance -3180 -8165 -300 Weight 180 kg 179.4 kg Intake: Oral 960 200 Output: Urine 3500 2775 500 Other: Voiding Method Urinal - Exam GENERAL EXAM: Alert, pleasant morbidly obese 48-year-old white male comfortable in no apparent distress. HEAD: Normocephalic/atraumatic. EYES: Normal reaction of pupils, equal size. Conjunctiva pink, sclera white. NOSE: Clear with pink turbinates. THROAT: No erythema or exudates. NECK: No masses, no JVD, no thyroid enlargement, no adenopathy. CHEST: No chest wall deformity. Symmetrical expansion. LUNGS: Diminished breath sounds, with basilar crackles CVS: Regular rate and rhythm, normal S1 and S2, no gallops, no murmurs, no rubs ABDOMEN: Soft, nontender. No hepatosplenomegaly, normal bowel sounds, no guarding or rigidity. EXTREMITIES: No clubbing, bilateral lower extremity edema, and changes of chronic venous stasis are noted on lower extremities, no cyanosis, 2+ pulses and upper and lower extremities. MUSCULOSKELETAL: Muscle strength and tone normal. SPINE: No scoliosis or deformity SKIN: No rashes CENTRAL NERVOUS SYSTEM: Alert and oriented -3. No focal deficits, tone is normal in all 4 extremities. PSYCHIATRIC: Alert and oriented -3. Appropriate affect. Intact judgment and insight. - Labs CBC & Chem 7: 06/01/18 06:17 06/01/18 06:17 Assessment and Plan Plan: Assessment: #1. Acute congestive heart failure with systolic and diastolic heart failure #2. Dyspnea, he gained related to the above #3. History of atrial fibrillation on Eliquis #4. Previous history of DVT #5. COPD #6. Chronic congestive heart failure #7. Obstructive sleep apnea, intolerant to CPAP #8. Venous myocardial infarction #9. Hypertension hyperlipidemia #10. Hypothyroidism #11. Morbid obesity Plan: Patient has been diuresed, he is feeling and breathing better, from pulmonary perspective he stable, and he is being discharged home today. He can continue in his maintenance inhalers and nebulized treatments. I performed a history & physical examination of the patient and discussed their management with my nurse practitioner, Paola Tompkins. I reviewed the nurse practitioner's note and agree with the documented findings and plan of care. Lung sounds are few bibasilar crackles. The findings and the impression was discussed with the patient. I attest to the documentation by the nurse practitioner. Time with Patient: Less than 30
--- NOTE | 2018-06-03 17:50 | PN ---
PROGRESS NOTE Mr. Cerna has history of chronic atrial fibrillation, hypertension, previous PCI. He also came in with some congestive heart failure, but he is breathing better. Denies chest pain. Rate control is somewhat better. There was a question of DVT, which I believe is not a new DVT. He is now on Eliquis, and I will discontinue his aspirin. He is on 5 mg b.i.d. of Eliquis. Rate control is somewhat better. S1-S2 heard normally; irregular rhythm noted. Lungs reveal improved air entry. Abdomen and lower extremity exam unchanged. Patient can be discharged and I will see him in the office as per his appointment. MMODL / IJN: [id number] /
--- NOTE | 2018-06-05 07:49 | CDI ---
Documentation Clarification Form Date: 06/02/2018 12:13:00 PM From: Dee Dee DumontHollisARPIT, CCDS Admit Date: 05/31/2018 3:36:00 PM Patient Name: Maximo Cerna Visit Number: [id number] Discharge Date: 06/03/2018 2:26:00 PM ATTENTION: The Clinical Documentation Specialists (CDI) and [facility] Coding Staff appreciate your assistance in clarifying documentation. Please respond to the clarification below the line at the bottom and electronically sign. The CDI & [facility] Coding staff will review the response and follow-up if needed. Please note: Queries are made part of the Legal Health Record. If you have any questions, please contact the author of this message via ITS. Dr. Bean Nguyen: The patient presented with the following respiratory symptoms: SOB, cough & congestion, chest pain radiating to his right shoulder. History/Risk Factors: Combined systolic & diastolic CHF, COPD, Atrial fibrillation, DVTs, Hyperlipidemia, Hypertension, Renal Disease, KAMRYN, Chronic DVTs, CAD, NC & stents. Home nebulizer dependent. Tobacco use: Current smoker. Clinical Indicators: Presented with acute exacerbation of CHF & COPD & bilateral leg swelling. Vital signs: R 30^, PO 93 ra Lung/Breathing assessment: Cough & SOB LAB: PT 21.3^, INR 2.2^, APTT 45.8^, BUN 22^, Cr 1.60, Gluc 237^ RAD: CXR: Mild heart failure worse than previous exam, Stable bilateral pleural effusions. Treatment: Albuterol INH, IV fl 20, IV Narcan, IV Lasix, IV Zofran, Nitro sl, O2 2Lnc In your professional opinion, can you please clarify if these findings signify one of the following conditions? Specificity of Respiratory Failure: o With hypercapnia? o With hypoxia? Other, please specify: Unable to determine (Last Revision: September 2017) MTDD
[2018-06-06] MEDS ORDERED: ERGOCALCIFEROL 50,000 UNIT CAP PO SCH (12:00)
--- NOTE | 2018-06-11 22:52 | DS ---
DISCHARGE SUMMARY DATE OF ADMISSION: 05/31/2018. DATE OF DISCHARGE: 06/03/2018. MEDICATIONS: 1. Claritin 10 mg daily. 2. Zoloft 100 mg daily. 3. Nitroglycerin sublingual p.r.n. 4. Folic acid 1 mg b.i.d. 5. Synthroid 137 mcg daily. 6. Lipitor 80 mg daily. 7. Lopressor 100 mg b.i.d. 8. Symbicort 160/4.5 two puffs b.i.d. 9. Lasix 20 mg daily. 10.Klor-Con 20 mEq b.i.d. 11. 3.75 Saturday, Saturday, Saturday, , Saturday, 7.5 Saturday. 12.Rocaltrol 0.25 mcg Saturday and Saturday. 13.Zyloprim 100 mg daily. 14.Zaroxolyn 2.5 mg Saturday and . 15.Lasix 60 mg b.i.d. 16.Tramadol 50 b.i.d. 17.Ferrous sulfate 325 b.i.d. 18.Vitamin D, 50,000 units weekly. 19.Calcium carbonate 1000 mg t.i.d. 20.Eliquis 5 mg b.i.d. 21.Aspirin 81 mg daily. 22.Lasix 81 mg b.i.d. 23.[place] 5/325 every 4 p.r.n. 24.Zaroxolyn 2.5 every 48 hours. 25.Diltiazem 60 b.i.d. 26.Metoprolol 100 t.i.d. CONDITION: Stable. PROGNOSIS: Guarded. DISCHARGE INSTRUCTIONS: Ambulate as tolerated. DISCHARGE DIAGNOSES: 1. Hypertension acceleration. 2. Diastolic congestive heart failure. 3. Acute respiratory failure secondary to above. 4. Chronic atrial fibrillation for which she was started on Eliquis. Cleared by Cardiology and Pulmonology for discharge. FOLLOWUP: Follow up as an outpatient. MMODL / IJN: [id number] /
== END 2018-06-03 14:26 | disposition home or self-care (01) | DRG 291 ==
LOC: EC 13:19 → 3SCARD 15:36
PROVIDERS: ADMIT Family Medicine; ATTEND Family Medicine
DX: I13.0 Hypertensive heart and chronic kidney disease with heart failure and stage 1 through stage 4 chronic kidney disease, or unspecified chronic kidney disease (principal); I50.43 Acute on chronic combined systolic (congestive) and diastolic (congestive) heart failure; J96.00 Acute respiratory failure, unspecified whether with hypoxia or hypercapnia; I82.412 Acute embolism and thrombosis of left femoral vein; I82.432 Acute embolism and thrombosis of left popliteal vein; J44.1 Chronic obstructive pulmonary disease with (acute) exacerbation; Z68.43 Body mass index [BMI] 50.0-59.9, adult; I48.1 Persistent atrial fibrillation; E66.01 Morbid (severe) obesity due to excess calories; E11.22 Type 2 diabetes mellitus with diabetic chronic kidney disease; E11.51 Type 2 diabetes mellitus with diabetic peripheral angiopathy without gangrene; N18.3 Chronic kidney disease, stage 3 (moderate); E03.9 Hypothyroidism, unspecified; D50.9 Iron deficiency anemia, unspecified; E78.5 Hyperlipidemia, unspecified; F32.9 Major depressive disorder, single episode, unspecified; G47.33 Obstructive sleep apnea (adult) (pediatric); I25.119 Atherosclerotic heart disease of native coronary artery with unspecified angina pectoris; K44.9 Diaphragmatic hernia without obstruction or gangrene; K57.90 Diverticulosis of intestine, part unspecified, without perforation or abscess without bleeding; M10.9 Gout, unspecified; Z82.61 Family history of arthritis; I25.2 Old myocardial infarction; F17.210 Nicotine dependence, cigarettes, uncomplicated; Z71.6 Tobacco abuse counseling; Z71.3 Dietary counseling and surveillance; Z91.19 Patient's noncompliance with other medical treatment and regimen; Z79.01 Long term (current) use of anticoagulants; Z79.890 Hormone replacement therapy; Z79.51 Long term (current) use of inhaled steroids; Z79.899 Other long term (current) drug therapy; Z86.718 Personal history of other venous thrombosis and embolism; Z90.49 Acquired absence of other specified parts of digestive tract; Z87.442 Personal history of urinary calculi; Z95.5 Presence of coronary angioplasty implant and graft; Z88.1 Allergy status to other antibiotic agents; Z88.0 Allergy status to penicillin; Z88.8 Allergy status to other drugs, medicaments and biological substances; Z91.048 Other nonmedicinal substance allergy status; Z82.62 Family history of osteoporosis; I77.6 Arteritis, unspecified; Z83.6 Family history of other diseases of the respiratory system; Z83.79 Family history of other diseases of the digestive system; Z84.1 Family history of disorders of kidney and ureter; Z82.49 Family history of ischemic heart disease and other diseases of the circulatory system
CPT/HCPCS: 36415; 71046; 71275; 80053; 82550; 82553; 83880; 84484; 85025; 85610; 85730; 93005; 93970; 94640; 96374; 99285

== ENCOUNTER 2018-09-17 16:17 | Inpatient (IN) | payer MEDICARE, OTHER ==
[2018-09-17] MEDS ORDERED: IPRATROPIUM-ALBUTEROL 3 ML NEB INHALATION STA (16:39)
[2018-09-17] MEDS ORDERED: FUROSEMIDE 10 MG/ML 4 ML VIAL IV STA (16:39)
--- NOTE | 2018-09-17 16:43 | ED ---
SOB HPI - General Chief Complaint: Shortness of Breath Stated Complaint: SOB Time Seen by Provider: 09/17/18 16:27 Source: patient, RN notes reviewed Mode of arrival: ambulatory Limitations: no limitations - History of Present Illness Initial Comments: This a 48-year-old male with a history of CHF and asthma/COPD who presents with complaints of shortness of breath or past 2-3 days. He has exertional dyspnea along with this. Refractory to his home medications he is also had attempt to weight gain over the past several days. He is concern for a recurrence of his CHF. No chest pain he does have a typical cough no particular color to the phlegm no fevers chills nausea vomiting sweats. MD Complaint: shortness of breath - Related Data Home Medications Medication Instructions Recorded Confirmed Loratadine [Claritin] 10 mg PO DAILY 10/19/13 09/17/18 Sertraline [Zoloft] 100 mg PO HS 10/19/13 09/17/18 Atorvastatin [Lipitor] 80 mg PO HS 03/25/15 09/17/18 Folic Acid 1 mg PO BID 03/25/15 09/17/18 Levothyroxine Sodium [Synthroid] 137 mcg PO QAM 03/25/15 09/17/18 Budesonide/Formoterol Fumarate 2 puff INHALATION RT-BID 08/01/16 09/17/18 [Symbicort 160-4.5 Mcg Inhaler] Potassium Chloride [Klor-Con 20] 20 meq PO BID 01/31/17 09/17/18 Allopurinol [Zyloprim] 100 mg PO DAILY 12/17/17 09/17/18 Ergocalciferol (Vitamin D2) 50,000 unit PO MO 05/05/18 09/17/18 [Drisdol] Ferrous Sulfate [Iron (65 MG 325 mg PO BID 05/05/18 09/17/18 Elemental)] traMADol HCL [Ultram] 50 mg PO BID PRN 05/05/18 09/17/18 Albuterol Inhaler [Ventolin Hfa 1 - 2 puff INHALATION RT-QID PRN 09/17/18 09/17/18 Inhaler] Albuterol Nebulized [Ventolin 2.5 mg INHALATION RT-QID PRN 09/17/18 09/17/18 Nebulized] Furosemide [Lasix] 20 mg PO DAILY@1200 09/17/18 09/17/18 Furosemide [Lasix] 60 mg PO BID@0800,2100 09/17/18 09/17/18 Metolazone [Zaroxolyn] 2.5 mg PO MOFR 09/17/18 09/17/18 Metoprolol Tartrate [Lopressor] 100 mg PO BID 09/17/18 09/17/18 Previous Rx's Medication Instructions Recorded Nitroglycerin Sl Tabs [Nitrostat] 0.4 mg SUBLINGUAL Q5M PRN #30 tab 12/03/14 Calcium Carbonate [Tums] 1,000 mg PO TID PRN chew 05/08/18 Apixaban [Eliquis] 5 mg PO BID tab 06/03/18 Diltiazem Oral [Cardizem*] 60 mg PO BID #60 tab 06/03/18 Allergies Allergy/AdvReac Type Severity Reaction Status Date / Time adhesive Allergy "PLASTIC Verified 09/17/18 16:54 TAPE PEELS SKIN,PAPER TAPE IS OK" linezolid Allergy Unknown Verified 09/17/18 16:54 penicillin G Allergy Rash/Hives Verified 09/17/18 16:54 Cephalosporins AdvReac FEVER Verified 09/17/18 16:54 Review of Systems ROS Statement: Those systems with pertinent positive or pertinent negative responses have been documented in the HPI. ROS Other: All systems not noted in ROS Statement are negative. Past Medical History Past Medical History: Atrial Fibrillation, Asthma, Coronary Artery Disease (CAD), Chest Pain / Angina, Heart Failure, COPD, Deep Vein Thrombosis (DVT), Hyperlipidemia, Hypertension, Myocardial Infarction (OR), Renal Disease, Sleep Apnea/CPAP/BIPAP, Thyroid Disorder, Vascular Disorder Additional Past Medical History / Comment(s): Chronic CHF, tracheobronchitis, CKD stage III, kidney stones, DVT L leg in 2004, KAMRYN without device use, colon abscess with bowel resection, multiple abdominal surgeries for a hiatal hernia that was complicated by prolonged hospitalization and prolonged ventilator dependent respiratory failure requiring a tracheostomy tube insertion, pvd-lower legs discolored/edematous, diverticular disease, chronic iron deficiency anemia, vertigo at times, Last Myocardial Infarction Date:: History of Any Multi-Drug Resistant Organisms: MRSA Date of last positivie culture/infection: 02/01/15 MDRO Source:: Abdomen Past Surgical History: Bowel Resection, Heart Catheterization With Stent, Hernia Repair Additional Past Surgical History / Comment(s): Colonoscopies, heart stents x 4, bowel resection with colostomy and colostomy reversal (removed a foot of pts colon)-2003, hernia repair with skin grafts and 2 fistula repairs (hospitalized for 1 year @[facility])-2010 MRSA 2014 in wounds. Past Anesthesia/Blood Transfusion Reactions: No Reported Reaction Additional Past Anesthesia/Blood Transfusion Reaction / Comment(s): Pt has received blood in past without reaction-2010 Date of Last Stent Placement:: 03/28/2015 Past Psychological History: Depression Smoking Status: Former smoker Past Alcohol Use History: Rare Past Drug Use History: None Reported - Past Family History Mother Family Medical History: Osteoarthritis (OA), Pneumonia Additional Family Medical History / Comment(s): osteoporosis. arthroscopy surgery for knee Father Family Medical History: Liver Disease, Renal Disease Additional Family Medical History / Comment(s): triple heart bypass. liver transplant. aortic aneursym General Exam - General Exam Comments Initial Comments: Is a well-developed obese male who is awake alert oriented 3 Limitations: no limitations General appearance: alert, anxious, in distress Head exam: Present: atraumatic, normocephalic, normal inspection Eye exam: Present: normal appearance, PERRL, EOMI. Absent: scleral icterus, conjunctival injection, periorbital swelling ENT exam: Present: normal exam, mucous membranes moist Neck exam: Present: normal inspection. Absent: tenderness, meningismus, lymphadenopathy Respiratory exam: Present: wheezes, rales, decreased breath sounds. Absent: respiratory distress, rhonchi, stridor Cardiovascular Exam: Present: irregular rhythm. Absent: systolic murmur, d iastolic murmur, rubs, gallop, clicks GI/Abdominal exam: Present: soft, normal bowel sounds. Absent: distended, tenderness, guarding, rebound, rigid Extremities exam: Present: full ROM, normal capillary refill, other (Veto is dermatitis of both lower extremities with some edema noted). Absent: tenderness, pedal edema, joint swelling, calf tenderness Back exam: Present: normal inspection Neurological exam: Present: alert, oriented X3, CN II-XII intact Psychiatric exam: Present: normal affect, normal mood Skin exam: Present: warm, dry, intact, normal color. Absent: rash Course Vital Signs 09/17/18 09/17/18 09/17/18 16:18 16:42 16:52 Temperature 97.9 F Pulse Rate 91 Respiratory 22 18 Rate Blood Pressure 93/70 O2 Sat by Pulse 95 92 L Oximetry 09/17/18 09/17/18 09/17/18 17:00 17:29 17:30 Temperature Pulse Rate 91 78 86 Respiratory 11 L 12 Rate Blood Pressure 100/67 100/67 O2 Sat by Pulse 99 95 Oximetry 09/17/18 09/17/18 09/17/18 17:40 18:00 18:19 Temperature Pulse Rate 89 86 91 Respiratory 18 18 Rate Blood Pressure 100/67 97/64 O2 Sat by Pulse 97 98 Oximetry - Reevaluation(s) Reevaluation #1: 09/17/18 19:04 I did reevaluate the patient after initial treatment he still feels no improvement at all. Reevaluation #2: 09/17/18 19:05 Evaluation patient still has dyspnea with diminished breath sounds and some wheezing. Medical Decision Making - Lab Data Result diagrams: 09/17/18 17:07 09/17/18 17:07 Lab Results 09/17/18 09/17/18 09/17/18 Range/Units 17:07 17:07 17:07 WBC 6.0 (3.8-10.6) k/uL RBC 4.71 (4.30-5.90) m/uL Hgb 14.0 (13.0-17.5) gm/dL Hct 40.7 (39.0-53.0) % MCV 86.3 (80.0-100.0) fL MCH 29.6 (25.0-35.0) pg MCHC 34.3 (31.0-37.0) g/dL RDW 17.2 H (11.5-15.5) % Plt Count (150-450) k/uL Neutrophils % 73 % Lymphocytes % 14 % Monocytes % 6 % Eosinophils % 5 % Basophils % 1 % Neutrophils # 4.4 (1.3-7.7) k/uL Lymphocytes # 0.8 L (1.0-4.8) k/uL Monocytes # 0.4 (0-1.0) k/uL Eosinophils # 0.3 (0-0.7) k/uL Basophils # 0.0 (0-0.2) k/uL Poikilocytosis Slight Anisocytosis Slight PT (9.0-12.0) sec INR (<1.2) APTT (22.0-30.0) sec Sodium 138 (137-145) mmol/L Potassium 4.4 (3.5-5.1) mmol/L Chloride 99 (98-107) mmol/L Carbon Dioxide 33 H (22-30) mmol/L Anion Gap 6 mmol/L BUN 27 H (9-20) mg/dL Creatinine 1.35 H (0.66-1.25) mg/dL Est GFR (CKD-EPI)AfAm 72 (>60 ml/min/1.73 sqM) Est GFR (CKD-EPI)NonAf 62 (>60 ml/min/1.73 sqM) Glucose 186 H (74-99) mg/dL Calcium 8.8 (8.4-10.2) mg/dL Magnesium 2.0 (1.6-2.3) mg/dL Total Bilirubin 1.6 H (0.2-1.3) mg/dL AST 44 (17-59) U/L ALT 35 (21-72) U/L Alkaline Phosphatase 65 (38-126) U/L Creatine Kinase 36 L (55-170) U/L Troponin I (0.000-0.034) ng/mL NT-Pro-B Natriuret Pep 4800 pg/mL Total Protein 6.6 (6.3-8.2) g/dL Albumin 3.3 L (3.5-5.0) g/dL 09/17/18 09/17/18 Range/Units 17:07 18:10 WBC (3.8-10.6) k/uL RBC (4.30-5.90) m/uL Hgb (13.0-17.5) gm/dL Hct (39.0-53.0) % MCV (80.0-100.0) fL MCH (25.0-35.0) pg MCHC (31.0-37.0) g/dL RDW (11.5-15.5) % Plt Count (150-450) k/uL Neutrophils % % Lymphocytes % % Monocytes % % Eosinophils % % Basophils % % Neutrophils # (1.3-7.7) k/uL Lymphocytes # (1.0-4.8) k/uL Monocytes # (0-1.0) k/uL Eosinophils # (0-0.7) k/uL Basophils # (0-0.2) k/uL Poikilocytosis Anisocytosis PT 11.1 (9.0-12.0) sec INR 1.0 (<1.2) APTT 34.1 H (22.0-30.0) sec Sodium (137-145) mmol/L Potassium (3.5-5.1) mmol/L Chloride (98-107) mmol/L Carbon Dioxide (22-30) mmol/L Anion Gap mmol/L BUN (9-20) mg/dL Creatinine (0.66-1.25) mg/dL Est GFR (CKD-EPI)AfAm (>60 ml/min/1.73 sqM) Est GFR (CKD-EPI)NonAf (>60 ml/min/1.73 sqM) Glucose (74-99) mg/dL Calcium (8.4-10.2) mg/dL Magnesium (1.6-2.3) mg/dL Total Bilirubin (0.2-1.3) mg/dL AST (17-59) U/L ALT (21-72) U/L Alkaline Phosphatase (38-126) U/L Creatine Kinase (55-170) U/L Troponin I <0.012 (0.000-0.034) ng/mL NT-Pro-B Natriuret Pep pg/mL Total Protein (6.3-8.2) g/dL Albumin (3.5-5.0) g/dL - EKG Data -: EKG Interpreted by Me (Atrial fibrillation with premature ventricular contractions rate was 85 QRS) - Radiology Data Radiology results: report reviewed (X-ray show no definitive evidence of failure at this time.), image reviewed Critical Care Time Critical Care Time: Yes Critical Care Time: 31 minutes of critical care time which includes initial presentation with history physical labs x-rays several reevaluation patient responsive therapy discussion with the admitting physician Dr. Rubi admission orders documentation the above. This also included discussion with the patient's family Disposition Clinical Impression: Diastolic CHF, Congestive heart failure, Chronic a-fib Disposition: ADMITTED IP TO THIS [facility] Condition: Fair Referrals: Wurster,Aguilar R, DO [Primary Care Provider] - 1-2 days
[2018-09-17 17:29] LABS: Albumin 3.3 g/dL (3.5-5.0); Calcium 8.8 mg/dL (8.4-10.2); Potassium 4.4 mmol/L (3.5-5.1); Total Bilirubin 1.6 mg/dL (0.2-1.3); Total Protein 6.6 g/dL (6.3-8.2)
[2018-09-17 17:31] LABS: Anisocytosis Slight; Basophils % (A) 1 %; Eosinophils # (A) 0.3 k/uL (0-0.7); Eosinophils % (A) 5 %; HCT 40.7 % (39.0-53.0); Lymphocytes # (A) 0.8 k/uL (1.0-4.8); Lymphocytes % (A) 14 %; MCH 29.6 pg (25.0-35.0); MCHC 34.3 g/dL (31.0-37.0); MCV 86.3 fL (80.0-100.0); Monocytes # (A) 0.4 k/uL (0-1.0); Monocytes % (A) 6 %; Neutrophils # (A) 4.4 k/uL (1.3-7.7); Neutrophils % (A) 73 %; Poikilocytosis Slight; RBC 4.71 m/uL (4.30-5.90); RDW 17.2 % (11.5-15.5)
--- NOTE | 2018-09-17 17:31 | XR ---
EXAMINATION TYPE: XR chest 2V DATE OF EXAM: 09/17/2018 COMPARISON: 05/31/2018 HISTORY: Difficulty breathing TECHNIQUE: Frontal and lateral views of the chest are obtained. FINDINGS: There is blunting of left costophrenic angle. There is no heart failure. There is coarseni ng of the lung markings. Heart is probably enlarged. IMPRESSION: Pleural diaphragmatic scarring at the left lung base unchanged. Coarse lung markings. No gross heart failure. No change.
[2018-09-17 18:31] LABS: Partial Thromboplastin Time 34.1 sec (22.0-30.0); Prothrombin Time 11.1 sec (9.0-12.0)
[2018-09-17] MEDS ORDERED: traMADol 50 MG TAB PO STA (19:03)
[2018-09-17] MEDS ORDERED: NITROGLYCERIN SL TABS 0.4 MG TAB SUBLINGUAL PRN (19:15)
[2018-09-17] MEDS ORDERED: CALCIUM CARBONATE 500 MG CHEWABLE PO PRN (19:15)
[2018-09-17] MEDS ORDERED: traMADol 50 MG TAB PO PRN (19:15)
--- NOTE | 2018-09-17 19:29 | ED ---
Medical Decision Making - Lab Data Result diagrams: 09/17/18 17:07 09/17/18 17:07 Lab Results 09/17/18 09/17/18 09/17/18 Range/Units 17:07 17:07 17:07 WBC 6.0 (3.8-10.6) k/uL RBC 4.71 (4.30-5.90) m/uL Hgb 14.0 (13.0-17.5) gm/dL Hct 40.7 (39.0-53.0) % MCV 86.3 (80.0-100.0) fL MCH 29.6 (25.0-35.0) pg MCHC 34.3 (31.0-37.0) g/dL RDW 17.2 H (11.5-15.5) % Plt Count (150-450) k/uL Neutrophils % 73 % Lymphocytes % 14 % Monocytes % 6 % Eosinophils % 5 % Basophils % 1 % Neutrophils # 4.4 (1.3-7.7) k/uL Lymphocytes # 0.8 L (1.0-4.8) k/uL Monocytes # 0.4 (0-1.0) k/uL Eosinophils # 0.3 (0-0.7) k/uL Basophils # 0.0 (0-0.2) k/uL Poikilocytosis Slight Anisocytosis Slight PT (9.0-12.0) sec INR (<1.2) APTT (22.0-30.0) sec Sodium 138 (137-145) mmol/L Potassium 4.4 (3.5-5.1) mmol/L Chloride 99 (98-107) mmol/L Carbon Dioxide 33 H (22-30) mmol/L Anion Gap 6 mmol/L BUN 27 H (9-20) mg/dL Creatinine 1.35 H (0.66-1.25) mg/dL Est GFR (CKD-EPI)AfAm 72 (>60 ml/min/1.73 sqM) Est GFR (CKD-EPI)NonAf 62 (>60 ml/min/1.73 sqM) Glucose 186 H (74-99) mg/dL Calcium 8.8 (8.4-10.2) mg/dL Magnesium 2.0 (1.6-2.3) mg/dL Total Bilirubin 1.6 H (0.2-1.3) mg/dL AST 44 (17-59) U/L ALT 35 (21-72) U/L Alkaline Phosphatase 65 (38-126) U/L Creatine Kinase 36 L (55-170) U/L Troponin I (0.000-0.034) ng/mL NT-Pro-B Natriuret Pep 4800 pg/mL Total Protein 6.6 (6.3-8.2) g/dL Albumin 3.3 L (3.5-5.0) g/dL 09/17/18 09/17/18 Range/Units 17:07 18:10 WBC (3.8-10.6) k/uL RBC (4.30-5.90) m/uL Hgb (13.0-17.5) gm/dL Hct (39.0-53.0) % MCV (80.0-100.0) fL MCH (25.0-35.0) pg MCHC (31.0-37.0) g/dL RDW (11.5-15.5) % Plt Count (150-450) k/uL Neutrophils % % Lymphocytes % % Monocytes % % Eosinophils % % Basophils % % Neutrophils # (1.3-7.7) k/uL Lymphocytes # (1.0-4.8) k/uL Monocytes # (0-1.0) k/uL Eosinophils # (0-0.7) k/uL Basophils # (0-0.2) k/uL Poikilocytosis Anisocytosis PT 11.1 (9.0-12.0) sec INR 1.0 (<1.2) APTT 34.1 H (22.0-30.0) sec Sodium (137-145) mmol/L Potassium (3.5-5.1) mmol/L Chloride (98-107) mmol/L Carbon Dioxide (22-30) mmol/L Anion Gap mmol/L BUN (9-20) mg/dL Creatinine (0.66-1.25) mg/dL Est GFR (CKD-EPI)AfAm (>60 ml/min/1.73 sqM) Est GFR (CKD-EPI)NonAf (>60 ml/min/1.73 sqM) Glucose (74-99) mg/dL Calcium (8.4-10.2) mg/dL Magnesium (1.6-2.3) mg/dL Total Bilirubin (0.2-1.3) mg/dL AST (17-59) U/L ALT (21-72) U/L Alkaline Phosphatase (38-126) U/L Creatine Kinase (55-170) U/L Troponin I <0.012 (0.000-0.034) ng/mL NT-Pro-B Natriuret Pep pg/mL Total Protein (6.3-8.2) g/dL Albumin (3.5-5.0) g/dL Disposition Clinical Impression: Diastolic CHF, Congestive heart failure, Chronic a-fib, Acute bronchospasm Disposition: ADMITTED IP TO THIS HOSP Condition: Fair Referrals: Aguilar Bautista DO [Primary Care Provider] - 1-2 days
[2018-09-17] MEDS ORDERED: IPRATROPIUM-ALBUTEROL 3 ML NEB INHALATION SCH (20:00)
[2018-09-17] MEDS ORDERED: FUROSEMIDE 20 MG TAB PO SCH (21:00)
[2018-09-17] MEDS: SYMBICORT 160-4.5 MCG INHALER INHALATION SCH (21:39)
[2018-09-17] MEDS: APIXABAN 5 MG TAB PO SCH (22:02)
[2018-09-17] MEDS: ATORVASTATIN 80 MG TAB PO SCH (22:02)
[2018-09-17] MEDS: POTASSIUM CHLORIDE ER 20 MEQ TAB.ER PO SCH (22:03)
[2018-09-17] MEDS: SERTRALINE 100 MG TAB PO SCH (22:03)
[2018-09-17] MEDS: DILTIAZEM ORAL 60 MG TAB PO SCH (22:03)
[2018-09-17] MEDS: FERROUS SULFATE 325 MG TAB PO SCH (22:03)
[2018-09-17] MEDS: FOLIC ACID 1 MG TAB PO SCH (22:03)
[2018-09-17] MEDS: METOPROLOL TARTRATE 50 MG TAB PO SCH (22:06)
[2018-09-17] MEDS: FUROSEMIDE 10 MG/ML 4 ML VIAL IV SCH (23:12)
[2018-09-18] MEDS: LEVOTHYROXINE 137 MCG TAB PO SCH (06:19)
[2018-09-18 06:56] LABS: Anisocytosis Slight; Basophils # (A) 0.1 k/uL (0-0.2); Basophils % (A) 1 %; Eosinophils # (A) 0.4 k/uL (0-0.7); Eosinophils % (A) 5 %; HCT 38.9 % (39.0-53.0); HGB 12.8 gm/dL (13.0-17.5); Lymphocytes # (A) 1.2 k/uL (1.0-4.8); Lymphocytes % (A) 15 %; MCH 28.6 pg (25.0-35.0); MCHC 32.9 g/dL (31.0-37.0); MCV 86.8 fL (80.0-100.0); Mean Platelet Volume 8.3; Monocytes # (A) 0.5 k/uL (0-1.0); Monocytes % (A) 6 %; Neutrophils # (A) 5.4 k/uL (1.3-7.7); Neutrophils % (A) 72 %; Platelet Count 149 k/uL (150-450); Poikilocytosis Slight; RBC 4.48 m/uL (4.30-5.90); RDW 16.6 % (11.5-15.5); WBC 7.6 k/uL (3.8-10.6)
[2018-09-18 07:05] LABS: Calcium 8.6 mg/dL (8.4-10.2)
[2018-09-18 07:26] LABS: Potassium 4.3 mmol/L (3.5-5.1)
[2018-09-18] MEDS: FERROUS SULFATE 325 MG TAB PO SCH ×2 (08:22→20:35)
[2018-09-18] MEDS: LORATADINE 10 MG TAB PO SCH (08:22)
[2018-09-18] MEDS: FOLIC ACID 1 MG TAB PO SCH ×2 (08:22→20:35)
[2018-09-18] MEDS: DILTIAZEM ORAL 60 MG TAB PO SCH ×2 (08:22→20:35)
[2018-09-18] MEDS: FUROSEMIDE 10 MG/ML 4 ML VIAL IV SCH ×3 (08:23→23:31)
[2018-09-18] MEDS: POTASSIUM CHLORIDE ER 20 MEQ TAB.ER PO SCH ×2 (08:23→20:35)
[2018-09-18] MEDS: METOPROLOL TARTRATE 50 MG TAB PO SCH ×2 (08:23→20:35)
[2018-09-18] MEDS: APIXABAN 5 MG TAB PO SCH ×2 (08:23→20:35)
[2018-09-18] MEDS: ALLOPURINOL 100 MG TAB PO SCH (08:23)
[2018-09-18] MEDS: SYMBICORT 160-4.5 MCG INHALER INHALATION SCH ×2 (08:56→20:46)
--- NOTE | 2018-09-18 10:23 | P.CRDCN ---
<Hamida Patel E - Last Filed: 09/18/18 10:16> History of Present Illness Consult date: 09/18/18 Requesting physician: Joshua Rubi Consult reason: shortness of breath Chief complaint: Shortness of breath History of present illness: This is a 48-year-old gentleman with past medical history significant for morbid obesity, chronic persistent atrial fibrillation on long-term anticoagulation with Eliquis , coronary artery disease with prior stenting of the circumflex in 2014, known total occlusion of the right coronary artery, prior PCI of the LAD, hypertension, hyperlipidemia, chronic kidney disease who follows with Dr. Landon Wood in the office. He presents to the hospital on this occasion with symptoms of a 2-3 duration of progressively worsening shortness of breath. Chest x-ray performed on admission showed pleural diaphragmatic scarring at the left lung base unchanged from prior, coarse lung markings, no gross heart failure. EKG on presentation here showed atrial fibrillation with a controlled ventricular response. Blood pressure 99/50 with a heart rate in the 90s, afebrile. White blood cell count 7.6, hemoglobin 12.8, platelet count 149. Sodium 138, potassium 4.3, BUN 27 and creatinine 1.3. Magnesium 2.0, total bilirubin 1.6, troponins negative 3. BNP level 4800. The patient was in itiated on IV Lasix in the emergency room. His weight is down 2 kg today. Past Medical History Past Medical History: Atrial Fibrillation, Asthma, Coronary Artery Disease (CAD), Chest Pain / Angina, Heart Failure, COPD, Deep Vein Thrombosis (DVT), Hyperlipidemia, Hypertension, Myocardial Infarction (MA), Renal Disease, Sleep Apnea/CPAP/BIPAP, Thyroid Disorder, Vascular Disorder Additional Past Medical History / Comment(s): Chronic CHF, tracheobronchitis, CKD stage III, kidney stones, DVT L leg in 2004, KAMRYN without device use, colon abscess with bowel resection, multiple abdominal surgeries for a hiatal hernia that was complicated by prolonged hospitalization and prolonged ventilator dependent respiratory failure requiring a tracheostomy tube insertion, pvd-lower legs discolored/edematous, diverticular disease, chronic iron deficiency anemia, vertigo at times, Last Myocardial Infarction Date:: History of Any Multi-Drug Resistant Organisms: MRSA Date of last positivie culture/infection: 02/01/15 MDRO Source:: Abdomen Past Surgical History: Bowel Resection, Heart Catheterization With Stent, Hernia Repair Additional Past Surgical History / Comment(s): Colonoscopies, heart stents x 4, bowel resection with colostomy and colostomy reversal (removed a foot of pts co valentin)-2003, hernia repair with skin grafts and 2 fistula repairs (hospitalized for 1 year @[facility])-2010 MRSA 2014 in wounds. Past Anesthesia/Blood Transfusion Reactions: No Reported Reaction Additional Past Anesthesia/Blood Transfusion Reaction / Comment(s): Pt has received blood in past without reaction-2010 Date of Last Stent Placement:: 03/28/2015 Smoking Status: Former smoker - Past Family History Mother Family Medical History: Osteoarthritis (OA), Pneumonia Additional Family Medical History / Comment(s): osteoporosis. arthroscopy surgery for knee Father Family Medical History: Liver Disease, Renal Disease Additional Family Medical History / Comment(s): triple heart bypass. liver transplant. aortic aneursym Medications and Allergies Home Medications Medication Instructions Recorded Confirmed Type RX: Loratadine [Claritin] 10 mg PO DAILY 10/19/13 09/17/18 History RX: Sertraline [Zoloft] 100 mg PO HS 10/19/13 09/17/18 History RX: Nitroglycerin Sl Tabs 0.4 mg SUBLINGUAL Q5M PRN #30 tab 12/03/14 09/17/18 Rx [Nitrostat] RX: Atorvastatin [Lipitor] 80 mg PO HS 03/25/15 09/17/18 History RX: Folic Acid 1 mg PO BID 03/25/15 09/17/18 History RX: Levothyroxine Sodium 137 mcg PO QAM 03/25/15 09/17/18 History [Synthroid] RX: Budesonide/Formoterol Fumarate 2 puff INHALATION RT-BID 08/01/16 09/17/18 History [Symbicort 160-4.5 Mcg Inhaler] RX: Potassium Chloride [Klor-Con 20 meq PO BID 01/31/17 09/17/18 History 20] RX: Allopurinol [Zyloprim] 100 mg PO DAILY 12/17/17 09/17/18 History RX: Ergocalciferol (Vitamin D2) 50,000 unit PO MO 05/05/18 09/17/18 History [Drisdol] RX: Ferrous Sulfate [Iron (65 MG 325 mg PO BID 05/05/18 09/17/18 History Elemental)] RX: traMADol HCL [Ultram] 50 mg PO BID PRN 05/05/18 09/17/18 History RX: Calcium Carbonate [Tums] 1,000 mg PO TID PRN chew 05/08/18 09/17/18 Rx RX: Apixaban [Eliquis] 5 mg PO BID tab 06/03/18 09/17/18 Rx RX: Diltiazem Oral [Cardizem*] 60 mg PO BID #60 tab 06/03/18 09/17/18 Rx Albuterol Inhaler [Ventolin Hfa 1 - 2 puff INHALATION RT-QID PRN 09/17/18 09/17/18 History Inhaler] Albuterol Nebulized [Ventolin 2.5 mg INHALATION RT-QID PRN 09/17/18 09/17/18 History Nebulized] Furosemide [Lasix] 20 mg PO DAILY@1200 09/17/18 09/17/18 History Furosemide [Lasix] 60 mg PO BID@0800,2100 09/17/18 09/17/18 History Metoprolol Tartrate [Lopressor] 100 mg PO BID 09/17/18 09/17/18 History RX: Metolazone [Zaroxolyn] 2.5 mg PO MOFR 09/17/18 09/17/18 History Allergies Allergy/AdvReac Type Severity Reaction Status Date / Time adhesive Allergy "PLASTIC Verified 09/17/18 16:54 TAPE PEELS SKIN,PAPER TAPE IS OK" linezolid Allergy Unknown Verified 09/17/18 16:54 penicillin G Allergy Rash/Hives Verified 09/17/18 16:54 Cephalosporins AdvReac FEVER Verified 09/17/18 16:54 Physical Exam Vitals: Vital Signs Temp Pulse Pulse Resp BP BP Pulse Ox 09/18/18 08:15 98.2 F 99 19 99/56 97 09/18/18 03:44 105 H 19 09/18/18 03:43 98.3 F 105 H 19 97/74 97 09/17/18 23:48 104 H 19 09/17/18 23:45 98.2 F 104 H 19 100/55 98 09/17/18 21:40 98.3 F 113 H 18 88/60 97 04/03/19 20:00 99 113 H 18 107/57 100 09/17/18 19:30 0 L 95/85 100 09/17/18 19:00 94 104/61 99 09/17/18 18:19 91 18 97/64 98 09/17/18 18:00 86 18 100/67 97 09/17/18 17:40 89 09/17/18 17:30 86 12 100/67 95 09/17/18 17:29 78 09/17/18 17:00 91 11 L 100/67 99 09/17/18 16:52 92 L 09/17/18 16:42 18 09/17/18 16:18 97.9 F 91 22 93/70 95 Intake and Output 09/17/18 09/18/18 09/18/18 22:59 06:59 14:59 Intake Total 1000 2420 Output Total 1000 1450 440 Balance -1000 -450 1980 Intake: Oral 1000 2420 Output: Urine 1000 1450 440 Other: Voiding Method Urinal Toilet Weight 175.994 kg 173.3 kg Blood pressure 98/60 heart rate 95 afebrile maintaining oxygen saturation on nasal cannula GENERAL: This is a 47-year-old male in no apparent distress at the time of my examination. Morbidly obese. HEENT: Head is atraumatic, normocephalic. Pupils are equal, round. Sclerae anicteric. Conjunctivae are clear. Mucous membranes of the mouth are moist. Neck is supple. There is no jugular venous distention. No carotid bruit is heard. LUNGS: Clear to auscultation no wheezes, rales or rhonchi. No chest wall tenderness is noted on palpation or with deep breathing. Diminished bilaterally secondary to body habitus. HEART: Irregular rate and rhythm with systolic ejection murmur at the base, no rubs or gallops. S1 and S2 heard. ABDOMEN: Soft, nontender. Bowel sounds are heard. No organomegaly noted. Midline scarring noted. EXTREMITIES: Significant lower extremity edema with purple discoloration noted and no calf tenderness. VASCULAR: Radial and dorsalis pedis pulses palpated, no evidence of clubbing. NEUROLOGIC: Patient is awake, alert and oriented x3. Results 09/18/18 05:53 09/18/18 05:53 Cardiac Enzymes 04/03/19 04/03/19 04/04/19 Range/Units 17:07 17:07 01:19 AST 44 (17-59) U/L Troponin I <0.012 <0.012 (0.000-0.034) ng/mL 09/18/18 Range/Units 05:53 AST (17-59) U/L Troponin I <0.012 (0.000-0.034) ng/mL Coagulation 09/17/18 Range/Units 18:10 PT 11.1 (9.0-12.0) sec APTT 34.1 H (22.0-30.0) sec CBC 09/17/18 09/18/18 Range/Units 17:07 05:53 WBC 6.0 7.6 (3.8-10.6) k/uL RBC 4.71 4.48 (4.30-5.90) m/uL Hgb 14.0 12.8 L (13.0-17.5) gm/dL Hct 40.7 38.9 L (39.0-53.0) % Plt Count 149 L (150-450) k/uL Comprehensive Metabolic Panel 09/17/18 09/18/18 Range/Units 17:07 05:53 Sodium 138 138 (137-145) mmol/L Potassium 4.4 4.3 (3.5-5.1) mmol/L Chloride 99 100 (98-107) mmol/L Carbon Dioxide 33 H 34 H (22-30) mmol/L BUN 27 H 27 H (9-20) mg/dL Creatinine 1.35 H 1.39 H (0.66-1.25) mg/dL Glucose 186 H 164 H (74-99) mg/dL Calcium 8.8 8.6 (8.4-10.2) mg/dL AST 44 (17-59) U/L ALT 35 (21-72) U/L Alkaline Phosphatase 65 (38-126) U/L Total Protein 6.6 (6.3-8.2) g/dL Albumin 3.3 L (3.5-5.0) g/dL Current Medications Generic Name Dose Route Start Last Admin Trade Name Freq PRN Reason Stop Dose Admin Albuterol/Ipratropium 3 ml 09/17/18 19:38 Duoneb 0.5 Mg-3 Mg/3 Ml Soln INHALATION RT-QID PRN Shortness Of Breath Or Wheezing Allopurinol 100 mg 09/18/18 09:00 09/18/18 08:23 Zyloprim PO 100 mg DAILY [facility] Administration Apixaban 5 mg 09/17/18 21:00 09/18/18 08:23 Eliquis PO 5 mg BID [facility] Administration Atorvastatin Calcium 80 mg 09/17/18 21:00 09/17/18 22:02 Lipitor PO 80 mg HS [facility] Administration Budesonide/Formoterol Fumarate 2 puff 09/17/18 20:00 09/18/18 08:56 Symbicort 160-4.5 Mcg Inhaler INHALATION 2 puff RT-BID [facility] Administration Calcium Carbonate/Glycine 1,000 mg 09/17/18 19:15 Tums PO TID PRN Heartburn Diltiazem HCl 60 mg 09/17/18 21:00 09/18/18 08:22 Cardizem Oral PO 60 mg BID [facility] Administration Ergocalciferol 50,000 unit 09/22/18 12:00 Vitamin D2 PO MO [facility] Ferrous Sulfate 325 mg 09/17/18 21:00 09/18/18 08:22 Feosol PO 325 mg BID [facility] Administration Folic Acid 1 mg 09/17/18 21:00 09/18/18 08:22 Folic Acid PO 1 mg BID [facility] Administration Furosemide 40 mg 09/18/18 00:00 09/18/18 08:23 Lasix IV 40 mg Q8H [facility] Administration Levothyroxine Sodium 137 mcg 09/18/18 06:30 09/18/18 06:19 Synthroid PO 137 mcg QAM@0630 [facility] Administration Loratadine 10 mg 09/18/18 09:00 09/18/18 08:22 Claritin PO 10 mg DAILY [facility] Administration Metolazone 2.5 mg 09/19/18 09:00 Zaroxolyn PO MOFR [facility] Metoprolol Tartrate 100 mg 09/17/18 21:00 09/18/18 08:23 Lopressor PO 100 mg BID [facility] Administration Nitroglycerin 0.4 mg 09/17/18 19:15 Nitrostat SUBLINGUAL Q5M PRN Chest Pain Potassium Chloride 20 meq 09/17/18 21:00 09/18/18 08:23 K-Dur 20 PO 20 meq BID [facility] Administration Sertraline HCl 100 mg 09/17/18 21:00 09/17/18 22:03 Zoloft PO 100 mg HS [facility] Administration Tramadol HCl 50 mg 09/17/18 19:15 09/17/18 22:03 Ultram PO 50 mg BID PRN Administration Pain Intake and Output 09/17/18 09/18/18 09/18/18 22:59 06:59 14:59 Intake Total 1000 2420 Output Total 1000 1450 440 Balance -1000 -450 1980 Intake: Oral 1000 2420 Output: Urine 1000 1450 440 Other: Voiding Method Urinal Toilet Weight 175.994 kg 173.3 kg 09/18/18 05:53 09/18/18 05:53 EKG Interpretations (text) EKG shows atrial fibrillation with a controlled ventricular response Assessment and Plan Plan: ASSESSMENT and plan #1 Acute on chronic diastolic heart failure. 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 Currently therapeutic. #3 Coronary artery disease s/p angioplasty prox LAD and mid circumflex #4 Chronic kidney disease, GFR 55. Stage 3a #5 Hypertension #6 Dyslipidemia #7 Morbid obesity, BMI 59 Plan Patient had an echocardiogram with Doppler study performed in April 2018 which revealed an ejection fraction of 45-50%, we will repeat an echo this ad mission. Continue current dose of IV Lasix, continue to monitor intake and output along with daily weights and daily lytes BUN and creatinine. Further recommendations to follow. DNP note has been reviewed, I agree with a documented findings and plan of care. Patient was seen and examined. <David Hart - Last Filed: 09/18/18 19:30> History of Present Illness History of present illness: 48 male patient presenting with symptoms of increasing shortness of breath, atrial fibrillation with a controlled ventricular response, morbid obesity, known coronary artery disease and chronic kidney disease. Continue IV Lasix Consider electrical cardioversion Patient is a mild cardio myopathy Physical Exam Vitals: Vital Signs Temp Pulse Pulse Resp BP BP Pulse Ox 09/18/18 16:20 98 F 92 19 108/60 96 09/18/18 12:09 84 19 105/57 95 09/18/18 08:15 98.2 F 99 19 99/56 97 09/18/18 03:44 105 H 19 09/18/18 03:43 98.3 F 105 H 19 97/74 97 09/17/18 23:48 104 H 19 09/17/18 23:45 98.2 F 104 H 19 100/55 98 09/17/18 21:40 98.3 F 113 H 18 88/60 97 09/17/18 20:00 99 113 H 18 107/57 100 09/17/18 19:30 0 L 95/85 100 Intake and Output 09/18/18 09/18/18 09/18/18 06:59 14:59 22:59 Intake Total 1000 2660 120 Output Total 1450 1340 900 Balance -450 1320 -780 Intake: Oral 1000 2660 120 Output: Urine 1450 1340 900 Other: Voiding Method Toilet Weight 173.3 kg 173.3 kg Results 09/18/18 05:53 09/18/18 05:53 Cardiac Enzymes 09/18/18 09/18/18 Range/Units 01:19 05:53 Troponin I <0.012 <0.012 (0.000-0.034) ng/mL CBC 09/18/18 Range/Units 05:53 WBC 7.6 (3.8-10.6) k/uL RBC 4.48 (4.30-5.90) m/uL Hgb 12.8 L (13.0-17.5) gm/dL Hct 38.9 L (39.0-53.0) % Plt Count 149 L (150-450) k/uL Comprehensive Metabolic Panel 09/18/18 Range/Units 05:53 Sodium 138 (137-145) mmol/L Potassium 4.3 (3.5-5.1) mmol/L Chloride 100 (98-107) mmol/L Carbon Dioxide 34 H (22-30) mmol/L BUN 27 H (9-20) mg/dL Creatinine 1.39 H (0.66-1.25) mg/dL Glucose 164 H (74-99) mg/dL Calcium 8.6 (8.4-10.2) mg/dL Current Medications Generic Name Dose Route Start Last Admin Trade Name Freq PRN Reason Stop Dose Admin Albuterol/Ipratropium 3 ml 09/17/18 19:38 Duoneb 0.5 Mg-3 Mg/3 Ml Soln INHALATION RT-QID PRN Shortness Of Breath Or Wheezing Allopurinol 100 mg 09/18/18 09:00 09/18/18 08:23 Zyloprim PO 100 mg DAILY [facility] Administration Apixaban 5 mg 09/17/18 21:00 09/18/18 08:23 Eliquis PO 5 mg BID [facility] Administration Atorvastatin Calcium 80 mg 09/17/18 21:00 09/17/18 22:02 Lipitor PO 80 mg HS [facility] Administration Budesonide/Formoterol Fumarate 2 puff 09/17/18 20:00 09/18/18 08:56 Symbicort 160-4.5 Mcg Inhaler INHALATION 2 puff RT-BID [facility] Administration Calcium Carbonate/Glycine 1,000 mg 09/17/18 19:15 Tums PO TID PRN Heartburn Diltiazem HCl 60 mg 09/17/18 21:00 09/18/18 08:22 Cardizem Oral PO 60 mg BID [facility] Administration Ergocalciferol 50,000 unit 09/22/18 12:00 Vitamin D2 PO MO [facility] Ferrous Sulfate 325 mg 09/17/18 21:00 09/18/18 08:22 Feosol PO 325 mg BID [facility] Administration Folic Acid 1 mg 09/17/18 21:00 09/18/18 08:22 Folic Acid PO 1 mg BID [facility] Administration Furosemide 40 mg 09/18/18 00:00 09/18/18 17:40 Lasix IV 40 mg Q8H [facility] Administration Levothyroxine Sodium 137 mcg 09/18/18 06:30 09/18/18 06:19 Synthroid PO 137 mcg QAM@0630 [facility] Administration Loratadine 10 mg 09/18/18 09:00 09/18/18 08:22 Claritin PO 10 mg DAILY [facility] Administration Metolazone 2.5 mg 09/19/18 09:00 Zaroxolyn PO MOFR [facility] Metoprolol Tartrate 100 mg 09/17/18 21:00 09/18/18 08:23 Lopressor PO 100 mg BID [facility] Administration Nitroglycerin 0.4 mg 09/17/18 19:15 Nitrostat SUBLINGUAL Q5M PRN Chest Pain Potassium Chloride 20 meq 09/17/18 21:00 09/18/18 08:23 K-Dur 20 PO 20 meq BID [facility] Administration Sertraline HCl 100 mg 09/17/18 21:00 09/17/18 22:03 Zoloft PO 100 mg HS [facility] Administration Tramadol HCl 100 mg 09/18/18 15:51 Ultram PO DAILY PRN Mild to Moderate Pain Intake and Output 09/18/18 09/18/18 09/18/18 06:59 14:59 22:59 Intake Total 1000 2660 120 Output Total 1450 1340 900 Balance -450 1320 -780 Intake: Oral 1000 2660 120 Output: Urine 1450 1340 900 Other: Voiding Method Toilet Weight 173.3 kg 173.3 kg Patient Weight 09/19/18 06:59 Weight 173.3 kg 09/18/18 05:53 09/18/18 05:53
[2018-09-18] MEDS ORDERED: FUROSEMIDE 20 MG TAB PO SCH (12:00)
--- NOTE | 2018-09-18 12:41 | ECHOF ---
Referral Reason:chf MEASUREMENTS -------- HEIGHT: 177.8 cm WEIGHT: 173.3 kg BP: 99/56 RVIDd: 3.4 cm (< 3.3) IVSd: 1.2 cm (0.6 - 1.1) LVIDd: 4.4 cm (3.9 - 5.3) LVPWd: 1.2 cm (0.6 - 1.1) IVSs: 1.6 cm LVIDs: 2.8 cm LVPWs: 1.6 cm Ao Diam: 3.2 cm (2.0 - 3.7) AV Cusp: 2.1 cm (1.5 - 2.6) LA Diam: 5.9 cm (2.7 - 3.8) EPSS: 0.9 cm RAP: 5.00 mmHg RVSP: 10.14 mmHg MV EF SLOPE: 104.15 mm/s (70 - 150) MV EXCURSION: 2.06 cm (> 18.000) FINDINGS -------- Atrial fibrillation. This was a technically difficult study with suboptimal views. The left ventricular size is normal. There is mild concentric left ventricular hypertrophy. Overa ll left ventricular systolic function is normal with, an EF between 55 - 60 %. The right ventricle is mildly enlarged. The left atrium was not well visualized. The right atrium was not well visualized. 3 ml of Lumason was utilized for enhancement of images. The aortic valve was not well visualized. No significant aortic regurgitation or stenosis visualize d. The mitral valve leaflets are mildly thickened. Moderate mitral regurgitation is present. The pe ak and mean MV gradients are 10.38mmHg 3.19mmHg as measured by doppler. Mild mitral stenosis. The tricuspid valve was not well visualized. Trace tricuspid regurgitation present. Right ventric ular systolic pressure is normal at < 35 mmHg. There is no evidence of pulmonary hypertension. The pulmonic valve was not well visualized. The aortic root size is normal. IVC Not well visulized. There is no pericardial effusion. CONCLUSIONS -------- 1. Atrial fibrillation. 2. This was a technically difficult study with suboptimal views. 3. The left ventricular size is normal. 4. There is mild concentric left ventricular hypertrophy. 5. Overall left ventricular systolic function is normal with, an EF between 55 - 60 %. 6. The right ventricle is mildly enlarged. 7. The left atrium was not well visualized. 8. The right atrium was not well visualized. 9. 3 ml of Lumason was utilized for enhancement of images. 10. The aortic valve was not well visualized. 11. No significant aortic regurgitation or stenosis visualized. 12. The mitral valve leaflets are mildly thickened. 13. Moderate mitral regurgitation is present. 14. The peak and mean MV gradients are 10.38mmHg 3.19mmHg as measured by doppler. 15. Mild mitral stenosis. 16. The tricuspid valve was not well visualized. 17. Trace tricuspid regurgitation present. 18. Right ventricular systolic pressure is normal at < 35 mmHg. 19. There is no evidence of pulmonary hypertension. 20. The pulmonic valve was not well visualized. 21. The aortic root size is normal. 22. IVC Not well visulized. 23. There is no pericardial effusion. PRECISION FARMING COORDINATOR: Reg Francisco RDCS
[2018-09-18] MEDS: ATORVASTATIN 80 MG TAB PO SCH (20:35)
[2018-09-18] MEDS: SERTRALINE 100 MG TAB PO SCH (20:35)
[2018-09-18] MEDS: traMADol 50 MG TAB PO PRN (20:36)
[2018-09-18] MEDS: IPRATROPIUM-ALBUTEROL 3 ML NEB INHALATION PRN (20:47)
--- NOTE | 2018-09-18 21:46 | P.HPIM ---
History of Present Illness H&P Date: 09/18/18 Chief Complaint: Shortness of breath Patient is a 48-year-old male with a known history of chronic atrial fibrillation on anticoagulation with Eliquis, coronary artery disease with history of stent placement, COPD, obstructive sleep apnea on CPAP at home, history of [place], history of DVT, hyperlipidemia, morbid obesity and other multiple medical problems came to ER with complaints of worsening shortness of breath and leg swelling. Patient has been having worsening symptoms for the past 2-3 days. No complains of fever or chills. No cough or sputum production. No nausea vomiting diarrhea and abdominal pain. No fever no chills. Denied any recent illnesses. Chest x-ray showed pleural diaphragmatic scarring at the left lung base unchanged. Coarse lung markings. No gross heart failure. EKG showed atrial fibrillation with PVCs and aberrant conduction. Troponin 3 negative BNP 4800, BUN 27 and creatinine 1.35 Review of Systems Constitutional: Patient denies any fever or chills . No generalized weakness or weight loss. Abdomen: Patient denied nausea vomiting and diarrhea and abdominal pain. Cardiovascular: Patient denies any chest pain . Patient does have worsening shortness of breath and no palpitations. Patient does have leg swelling.. Respiratory: patient denied any cough is from production. No shortness of breath Neurologic: Patient denied any numbness or tingling headache. Musculoskeletal: Patient denies any complaints of joint swelling or deformity. Skin: Negative Psychiatric: Negative Endocrine: No heat or cold intolerance. No recent weight gain. Genitourinary: No dysuria or hematuria. All other 14 point ROS negative except the above Past Medical History Past Medical History: Atrial Fibrillation, Asthma, Coronary Artery Disease (CAD), Chest Pain / Angina, Heart Failure, COPD, Deep Vein Thrombosis (DVT), Hyperlipidemia, Hypertension, Myocardial Infarction (PA), Renal Disease, Sleep Apnea/CPAP/BIPAP, Thyroid Disorder, Vascular Disorder Additional Past Medical History / Comment(s): Chronic CHF, tracheobronchitis, CKD stage III, kidney stones, DVT L leg in 2004, KAMRYN without device use, colon abscess with bowel resection, multiple abdominal surgeries for a hiatal hernia that was complicated by prolonged hospitalization and prolonged ventilator dependent respiratory failure requiring a tracheostomy tube insertion, pvd-lower legs discolored/edematous, diverticular disease, chronic iron deficiency anemia, vertigo at times, Last Myocardial Infarction Date:: History of Any Multi-Drug Resistant Organisms: MRSA Date of last positivie culture/infection: 02/01/15 MDRO Source:: Abdomen Past Surgical History: Bowel Resection, Heart Catheterization With Stent, Hernia Repair Additional Past Surgical History / Comment(s): Colonoscopies, heart stents x 4, bowel resection with colostomy and colostomy reversal (removed a foot of pts colon)-2003, hernia repair with skin grafts and 2 fistula repairs (hospitalized for 1 year @[facility])-2010 MRSA 2014 in wounds. Past Anesthesia/Blood Transfusion Reactions: No Reported Reaction Additional Past Anesthesia/Blood Transfusion Reaction / Comment(s): Pt has r eceived blood in past without reaction-2010 Date of Last Stent Placement:: 03/28/2015 Smoking Status: Former smoker - Past Family History Mother Family Medical History: Osteoarthritis (OA), Pneumonia Additional Family Medical History / Comment(s): osteoporosis. arthroscopy surgery for knee Father Family Medical History: Liver Disease, Renal Disease Additional Family Medical History / Comment(s): triple heart bypass. liver transplant. aortic aneursym Medications and Allergies Home Medications Medication Instructions Recorded Confirmed Type Loratadine [Claritin] 10 mg PO DAILY 10/19/13 09/17/18 History Sertraline [Zoloft] 100 mg PO HS 10/19/13 09/17/18 History Nitroglycerin Sl Tabs [Nitrostat] 0.4 mg SUBLINGUAL Q5M PRN #30 tab 12/03/14 09/17/18 Rx Atorvastatin [Lipitor] 80 mg PO HS 03/25/15 09/17/18 History Folic Acid 1 mg PO BID 03/25/15 09/17/18 History Levothyroxine Sodium [Synthroid] 137 mcg PO QAM 03/25/15 09/17/18 History Budesonide/Formoterol Fumarate 2 puff INHALATION RT-BID 08/01/16 09/17/18 History [Symbicort 160-4.5 Mcg Inhaler] Potassium Chloride [Klor-Con 20] 20 meq PO BID 01/31/17 09/17/18 History Allopurinol [Zyloprim] 100 mg PO DAILY 12/17/17 09/17/18 History Ergocalciferol (Vitamin D2) 50,000 unit PO MO 05/05/18 09/17/18 History [Drisdol] Ferrous Sulfate [Iron (65 MG 325 mg PO BID 05/05/18 09/17/18 History Elemental)] traMADol HCL [Ultram] 50 mg PO BID PRN 05/05/18 09/17/18 History Calcium Carbonate [Tums] 1,000 mg PO TID PRN chew 05/08/18 09/17/18 Rx Apixaban [Eliquis] 5 mg PO BID tab 06/03/18 09/17/18 Rx Diltiazem Oral [Cardizem*] 60 mg PO BID #60 tab 06/03/18 09/17/18 Rx Albuterol Inhaler [Ventolin Hfa 1 - 2 puff INHALATION RT-QID PRN 09/17/18 09/17/18 History Inhaler] Albuterol Nebulized [Ventolin 2.5 mg INHALATION RT-QID PRN 09/17/18 09/17/18 History Nebulized] Furosemide [Lasix] 20 mg PO DAILY@1200 09/17/18 09/17/18 History Furosemide [Lasix] 60 mg PO BID@0800,2100 09/17/18 09/17/18 History Metolazone [Zaroxolyn] 2.5 mg PO MOFR 09/17/18 09/17/18 History Metoprolol Tartrate [Lopressor] 100 mg PO BID 09/17/18 09/17/18 History Allergies Allergy/AdvReac Type Severity Reaction Status Date / Time adhesive Allergy "PLASTIC Verified 09/17/18 16:54 TAPE PEELS SKIN,PAPER TAPE IS OK" linezolid Allergy Unknown Verified 09/17/18 16:54 penicillin G Allergy Rash/Hives Verified 09/17/18 16:54 Cephalosporins AdvReac FEVER Verified 09/17/18 16:54 Physical Exam Vitals: Vital Signs Temp Pulse Pulse Resp BP BP Pulse Ox 09/18/18 12:09 84 19 105/57 95 09/18/18 08:15 98.2 F 99 19 99/56 97 09/18/18 03:44 105 H 19 09/18/18 03:43 98.3 F 105 H 19 97/74 97 09/17/18 23:48 104 H 19 09/17/18 23:45 98.2 F 104 H 19 100/55 98 09/17/18 21:40 98.3 F 113 H 18 88/60 97 09/17/18 20:00 99 113 H 18 107/57 100 09/17/18 19:30 0 L 95/85 100 09/17/18 19:00 94 104/61 99 09/17/18 18:19 91 18 97/64 98 09/17/18 18:00 86 18 100/67 97 09/17/18 17:40 89 09/17/18 17:30 86 12 100/67 95 09/17/18 17:29 78 09/17/18 17:00 91 11 L 100/67 99 09/17/18 16:52 92 L 09/17/18 16:42 18 09/17/18 16:18 97.9 F 91 22 93/70 95 Intake and Output 09/18/18 09/18/18 09/18/18 06:59 14:59 22:59 Intake Total 1000 2660 Output Total 1450 1340 Balance -450 1320 Intake: Oral 1000 2660 Output: Urine 1450 1340 Other: Voiding Method Toilet Weight 173.3 kg 173.3 kg PHYSICAL EXAMINATION: Patient is lying in the bed comfortably, no acute distress, awake alert and oriented. Morbidly obese.. HEENT: Normocephalic. Neck is supple. Pupils reactive. Nostrils clear. Oral cavity is moist. Ears reveal no drainage. Neck reveals no JVD, carotid bruits, or thyromegaly. CHEST EXAMINATION: Trachea is central. Symmetrical expansion. Bibasilar diminished air entry. Lung [place] clear to auscultation and percussion. CARDIAC: Normal S1, S2 with no gallops. No murmurs . Irregularly irregular rhythm. ABDOMEN: Soft. Bowel sounds normal. No organomegaly. No abdominal bruits. Extremities: 2+ bilateral edema. Skin discoloration with chronic venostasis changes. No ulcers. No clubbing or cyanosis Neurologically awake, alert, oriented x3 with well-coordinated movements. No focal deficits noted Skin: No rash or skin lesions. Psychiatric: Coperative. Nonsuicidal Musculoskeletal: No joint swelling or deformity. Normal range of motion. Results CBC & Chem 7: 09/18/18 05:53 09/18/18 05:53 Labs: Abnormal Lab Results - Last 24 Hours (Table) 09/17/18 09/17/1819 Range/Units 17:07 17:07 18:10 Hgb (13.0-17.5) gm/dL Hct (39.0-53.0) % RDW 17.2 H (11.5-15.5) % Plt Count (150-450) k/uL Lymphocytes # 0.8 L (1.0-4.8) k/uL APTT 34.1 H (22.0-30.0) sec Carbon Dioxide 33 H (22-30) mmol/L BUN 27 H (9-20) mg/dL Creatinine 1.35 H (0.66-1.25) mg/dL Glucose 186 H (74-99) mg/dL Total Bilirubin 1.6 H (0.2-1.3) mg/dL Creatine Kinase 36 L (55-170) U/L Albumin 3.3 L (3.5-5.0) g/dL 09/18/18 09/18/18 Range/Units 05:53 05:53 Hgb 12.8 L (13.0-17.5) gm/dL Hct 38.9 L (39.0-53.0) % RDW 16.6 H (11.5-15.5) % Plt Count 149 L (150-450) k/uL Lymphocytes # (1.0-4.8) k/uL APTT (22.0-30.0) sec Carbon Dioxide 34 H (22-30) mmol/L BUN 27 H (9-20) mg/dL Creatinine 1.39 H (0.66-1.25) mg/dL Glucose 164 H (74-99) mg/dL Total Bilirubin (0.2-1.3) mg/dL Creatine Kinase (55-170) U/L Albumin (3.5-5.0) g/dL Thrombosis Risk Factor Assmnt - DVT/VTE Prophylaxis DVT/VTE Prophylaxis: Pharmacologic Prophylaxis ordered - Choose All That Apply Each Factor Represents 1 point: Obesity (BMI >25), Swollen legs (current) Each Risk Factor Represents 3 Points: History of DVT/PE Thrombosis Risk Factor Assessment Total Risk Factor Score: 5 Thrombosis Risk Factor Assessment Level: High Risk Assessment and Plan Assessment: Shortness of breath secondary to acute on chronic CHF with diastolic dysfunction. Chronic persistent atrial fibrillation on anticoagulation. on Eliquis Coronary artery disease with history of stent placement COPD Obstructive sleep apnea on CPAP at home Hypertension Hyperlipidemia Chronic kidney disease stage III History of nephrolithiasis History of left leg DVT in 2005 History of colon abscess with bowel resection Morbid obesity BMI 54.8 Plan: Patient be continued on IV Lasix 40 mg twice daily. Monitor renal function. Continue with Cardizem metoprolol and Eliquis. Cardiology is on board. 2-D echocardiogram was ordered. Further recommendations based on the clinical course. Prognosis is guarded. Time with Patient: Greater than 30
[2018-09-19] MEDS: IPRATROPIUM-ALBUTEROL 3 ML NEB INHALATION PRN ×2 (01:07→08:29)
[2018-09-19] MEDS: LEVOTHYROXINE 137 MCG TAB PO SCH (06:24)
[2018-09-19 06:45] LABS: Anisocytosis Slight; Basophils # (A) 0.1 k/uL (0-0.2); Basophils % (A) 1 %; Eosinophils # (A) 0.3 k/uL (0-0.7); Eosinophils % (A) 4 %; HCT 38.8 % (39.0-53.0); HGB 12.9 gm/dL (13.0-17.5); Lymphocytes # (A) 1.1 k/uL (1.0-4.8); Lymphocytes % (A) 13 %; MCH 28.7 pg (25.0-35.0); MCHC 33.3 g/dL (31.0-37.0); MCV 86.2 fL (80.0-100.0); Mean Platelet Volume 9.4; Monocytes # (A) 0.5 k/uL (0-1.0); Monocytes % (A) 6 %; Neutrophils # (A) 6.1 k/uL (1.3-7.7); Neutrophils % (A) 75 %; Platelet Count 144 k/uL (150-450); Poikilocytosis Slight; RDW 16.9 % (11.5-15.5); WBC 8.2 k/uL (3.8-10.6)
[2018-09-19 07:07] LABS: Calcium 8.6 mg/dL (8.4-10.2)
[2018-09-19] MEDS: SYMBICORT 160-4.5 MCG INHALER INHALATION SCH ×2 (08:27→21:09)
[2018-09-19] MEDS: FUROSEMIDE 10 MG/ML 4 ML VIAL IV SCH ×2 (09:25→20:42)
[2018-09-19] MEDS: traMADol 50 MG TAB PO PRN (09:26)
[2018-09-19] MEDS: LORATADINE 10 MG TAB PO SCH (09:27)
[2018-09-19] MEDS: ALLOPURINOL 100 MG TAB PO SCH (09:27)
[2018-09-19] MEDS: APIXABAN 5 MG TAB PO SCH ×2 (09:27→20:40)
[2018-09-19] MEDS: FOLIC ACID 1 MG TAB PO SCH ×2 (09:27→20:41)
[2018-09-19] MEDS: DILTIAZEM ORAL 60 MG TAB PO SCH ×2 (09:27→20:41)
[2018-09-19] MEDS: METOPROLOL TARTRATE 50 MG TAB PO SCH ×2 (09:27→20:41)
[2018-09-19] MEDS: FERROUS SULFATE 325 MG TAB PO SCH ×2 (09:27→20:41)
[2018-09-19] MEDS: POTASSIUM CHLORIDE ER 20 MEQ TAB.ER PO SCH ×2 (09:28→20:41)
[2018-09-19] MEDS: METOLAZONE 2.5 MG TAB PO SCH (09:28)
--- NOTE | 2018-09-19 11:56 | P.PN ---
Subjective Patient still is short of breath But he is appears better than before. Lower symmetry edema is better He denies any chest discomfort or dizziness On examination respirations 16-18, pulse 100 beats a minute Blood pressure 112 58 mmHg Bilateral crackles in both lung [place] at the bases Heart sounds are distant soft irregular Abdomen is soft Morbid obesity noted Hemoglobin 12.9, potassium 4.0, BUN 23, creatinine 1.5 Creatinine is was Impression congestive heart failure with reduced LV systolic function Persistent atrial fibrillation Suggest Continue anticoagulation with ELIQUIS Continue Lasix 40 mg every 12 hourly Add Aldactone 25 mg daily Check TSH Objective - Vital Signs Vital signs: Vital Signs Temp 98.2 F 09/19/18 08:00 Pulse 100 09/19/18 08:40 Resp 18 09/19/18 11:27 BP 112/58 09/19/18 08:00 Pulse Ox 93 L 09/19/18 08:00 Intake & Output 09/18/18 09/19/18 09/19/18 18:59 06:59 18:59 Intake Total 2780 800 240 Output Total 2240 1850 500 Balance 540 -1050 -260 Weight 173.3 kg 173.1 kg Intake: Oral 2780 800 240 Output: Urine 2240 1850 500 Other: Voiding Method Toilet Toilet Urinal Urinal - Labs CBC & Chem 7: 09/19/18 06:02 09/19/18 06:02 Labs: Abnormal Lab Results - Last 24 Hours (Table) 09/19/18 09/19/18 Range/Units 06:02 06:02 Hgb 12.9 L (13.0-17.5) gm/dL Hct 38.8 L (39.0-53.0) % RDW 16.9 H (11.5-15.5) % Plt Count 144 L (150-450) k/uL Carbon Dioxide 33 H (22-30) mmol/L BUN 23 H (9-20) mg/dL Creatinine 1.51 H (0.66-1.25) mg/dL Glucose 195 H (74-99) mg/dL
[2018-09-19] MEDS: ATORVASTATIN 80 MG TAB PO SCH (20:40)
[2018-09-19] MEDS: SERTRALINE 100 MG TAB PO SCH (20:42)
[2018-09-20] MEDS: IPRATROPIUM-ALBUTEROL 3 ML NEB INHALATION PRN ×2 (01:23→16:15)
[2018-09-20] MEDS: LEVOTHYROXINE 137 MCG TAB PO SCH (06:45)
[2018-09-20] MEDS: SYMBICORT 160-4.5 MCG INHALER INHALATION SCH ×2 (08:57→21:13)
[2018-09-20] MEDS: DILTIAZEM ORAL 60 MG TAB PO SCH ×2 (09:10→20:38)
[2018-09-20] MEDS: POTASSIUM CHLORIDE ER 20 MEQ TAB.ER PO SCH (09:10)
[2018-09-20] MEDS: ALLOPURINOL 100 MG TAB PO SCH (09:10)
[2018-09-20] MEDS: LORATADINE 10 MG TAB PO SCH (09:10)
[2018-09-20] MEDS: FOLIC ACID 1 MG TAB PO SCH ×2 (09:10→20:39)
[2018-09-20] MEDS: FUROSEMIDE 10 MG/ML 4 ML VIAL IV SCH (09:10)
[2018-09-20] MEDS: APIXABAN 5 MG TAB PO SCH ×2 (09:10→20:38)
[2018-09-20] MEDS: METOPROLOL TARTRATE 50 MG TAB PO SCH ×2 (09:10→20:39)
[2018-09-20] MEDS: FERROUS SULFATE 325 MG TAB PO SCH ×2 (09:10→20:39)
--- NOTE | 2018-09-20 12:30 | P.PN ---
Subjective Progress Note Date: 09/20/18 IMPRESSION / ASSESSMENT: Acute on chronic diastolic heart failure with EF 55-60% Persistent atrial fibrillation PLAN: Continue anticoagulation with ELIQUIS Change Lasix to 40 mg orally twice daily Add Aldactone 25 mg daily, discontinue potassium Recheck renal function in the morning HPI Patient states that his breathing is somewhat improved from yesterday. He also thinks that his lower extremity edema is improved. He denies any chest pain. He states he has been urinating adequately. Weight is down almost 3.6 kg. Echocardiogram reveals EF of 55-60%, no aortic regurgitation or stenosis, moder ate mitral regurgitation, mild mitral stenosis, trace tricuspid regurgitation, no pulmonary hypertension. TSH 1.830. Repeat BUN 23 and creatinine 1.51, potassium 4.0. EXAMINATION: Gen: This is a 48-year-old morbidly obese male. Vital signs, heart rate in the 90s, blood pressure 104/57, pulse ox 95% on 2 L. HEENT: Head is atraumatic, normocephalic. Pupils equal, round. Sclerae is anicteric. NECK: Supple. No JVD. No lymphadenopathy. No thyromegaly. LUNGS: Diminished with crackles in the bases. No intercostal retractions. HEART: Irregular rate and rhythm. Systolic murmur. ABDOMEN: Soft. Bowel sounds are present. No masses. No tenderness. EXTREMITIES: 2+ pedal edema. No calf tenderness. NEUROLOGICAL: Patient is awake, alert and oriented x3. Cranial nerves 2 through 12 are grossly intact. Nurse practitioner note has been reviewed, I agree with documented findings and plan of care. Patient was seen and examined. Objective - Vital Signs Vital signs: Vital Signs Temp 98.0 F 09/20/18 08:00 Pulse 92 09/20/18 08:00 Resp 22 09/20/18 08:00 BP 104/57 09/20/18 08:00 Pulse Ox 95 09/20/18 08:00 Intake & Output 09/19/18 09/20/18 09/20/18 18:59 06:59 18:59 Intake Total 960 Output Total 2900 2800 500 Balance -1940 -2800 -500 Weight 169.7 kg Intake: Oral 960 Output: Urine 2900 2800 500 Other: Voiding Method Toilet Toilet Toilet Urinal Urinal Urinal # Voids 1 1 - Labs CBC & Chem 7: 09/19/18 06:02 09/19/18 06:02
[2018-09-20 13:26] LABS: Calcium 9.6 mg/dL (8.4-10.2); Potassium 3.6 mmol/L (3.5-5.1)
[2018-09-20] MEDS: FUROSEMIDE 40 MG TAB PO SCH (16:05)
[2018-09-20] MEDS: ATORVASTATIN 80 MG TAB PO SCH (20:38)
[2018-09-20] MEDS: SERTRALINE 100 MG TAB PO SCH (20:39)
--- NOTE | 2018-09-21 01:47 | P.PN ---
Subjective Progress Note Date: 09/19/18 Principal diagnosis: Acute CHF exacerbation Patient is a 48-year-old male with a known history of chronic atrial fibrillation on anticoagulation with Eliquis, coronary artery disease with history of stent placement, COPD, obstructive sleep apnea on CPAP at home, history of [place], history of DVT, hyperlipidemia, morbid obesity and other multiple medical problems came to ER with complaints of worsening shortness of breath and leg swelling. Patient has been having worsening symptoms for the past 2-3 days. No complains of fever or chills. No cough or sputum production. No nausea vomiting diarrhea and abdominal pain. No fever no chills. Denied any recent illnesses. Chest x-ray showed pleural diaphragmatic scarring at the left lung base unchanged. Coarse lung markings. No gross heart failure. EKG showed atrial fibrillation with PVCs and aberrant conduction. Troponin 3 negative BNP 4800, BUN 27 and creatinine 1.35 09/19/2018 Patient is still complaining of shortness of breath and tightness. Slightly improved compared to yesterday. Patient is being continued on Lasix 40 mg twice daily. Aldactone was added. Creatinine level I.51 Denied any complaints of dizziness or lightheadedness. Leg swelling slightly improved. No nausea vomiting or diarrhea. All other review of systems negative except the above Current medications reviewed. Objective - Vital Signs Vital signs: Vital Signs Temp 98.4 F 09/19/18 20:00 Pulse 90 09/19/18 20:00 Resp 18 09/19/18 20:00 BP 105/59 09/19/18 20:00 Pulse Ox 96 09/19/18 20:00 Intake & Output 09/19/18 09/19/18 09/20/18 06:59 18:59 06:59 Intake Total 800 960 Output Total 1850 2900 1275 Balance -1050 -1940 -1275 Weight 173.1 kg Intake: Oral 800 960 Output: Urine 1850 2900 1275 Other: Voiding Method Toilet Toilet Toilet Urinal Urinal Urinal # Voids 1 - Exam PHYSICAL EXAMINATION: Patient is lying in the bed comfortably, no acute distress, awake alert and oriented. Morbidly obese.. HEENT: Normocephalic. Neck is supple. Pupils reactive. Nostrils clear. Oral cavity is moist. Ears reveal no drainage. Neck reveals no JVD, carotid bruits, or thyromegaly. CHEST EXAMINATION: Trachea is central. Symmetrical expansion. Bibasilar crackles positive no wheezing. Lung [place] clear to auscultation and percussion. CARDIAC: Normal S1, S2 with no gallops. No murmurs . Irregularly irregular rhythm. ABDOMEN: Soft. Bowel sounds normal. No organomegaly. No abdominal bruits. Extremities: 2+ bilateral edema. Skin discoloration with chronic venostasis changes. No ulcers. No clubbing or cyanosis Neurologically awake, alert, oriented x3 with well-coordinated movements. No focal deficits noted Skin: No rash or skin lesions. Psychiatric: Coperative. Nonsuicidal Musculoskeletal: No joint swelling or deformity. Normal range of motion. - Labs CBC & Chem 7: 09/19/18 06:02 09/20/18 12:25 Labs: Abnormal Lab Results - Last 24 Hours (Table) 09/19/18 09/19/18 Range/Units 06:02 06:02 Hgb 12.9 L (13.0-17.5) gm/dL Hct 38.8 L (39.0-53.0) % RDW 16.9 H (11.5-15.5) % Plt Count 144 L (150-450) k/uL Carbon Dioxide 33 H (22-30) mmol/L BUN 23 H (9-20) mg/dL Creatinine 1.51 H (0.66-1.25) mg/dL Glucose 195 H (74-99) mg/dL Assessment and Plan Assessment: Shortness of breath secondary to acute on chronic CHF with diastolic dysfunction. Chronic persistent atrial fibrillation on anticoagulation. on Eliquis Coronary artery disease with history of stent placement COPD Obstructive sleep apnea on CPAP at home Hypertension Hyperlipidemia Chronic kidney disease stage III History of nephrolithiasis History of left leg DVT in 2004 History of colon abscess with bowel resection Morbid obesity BMI 54.8 Plan: Patient be continued on IV Lasix 40 mg twice daily. Added Aldactone 25 mg daily. Monitor renal function. Continue with Cardizem metoprolol and Eliquis. Cardiology is on board. 2-D echocardiogram was ordered. Further recommendations based on the clinical course. Prognosis is guarded. Time with Patient: Greater than 30
--- NOTE | 2018-09-21 01:50 | P.PN ---
Subjective Progress Note Date: 09/20/18 Principal diagnosis: Acute CHF exacerbation Patient is a 48-year-old male with a known history of chronic atrial fibrillation on anticoagulation with Eliquis, coronary artery disease with history of stent placement, COPD, obstructive sleep apnea on CPAP at home, history of [place], history of DVT, hyperlipidemia, morbid obesity and other multiple medical problems came to ER with complaints of worsening shortness of breath and leg swelling. Patient has been having worsening symptoms for the past 2-3 days. No complains of fever or chills. No cough or sputum production. No nausea vomiting diarrhea and abdominal pain. No fever no chills. Denied any recent illnesses. Chest x-ray showed pleural diaphragmatic scarring at the left lung base unchanged. Coarse lung markings. No gross heart failure. EKG showed atrial fibrillation with PVCs and aberrant conduction. Troponin 3 negative BNP 4800, BUN 27 and creatinine 1.35 09/19/2018 Patient is still complaining of shortness of breath and tightness. Slightly improved compared to yesterday. Patient is being continued on Lasix 40 mg twice daily. Aldactone was added. Creatinine level I.51 Denied any complaints of dizziness or lightheadedness. Leg swelling slightly improved. No nausea vomiting or diarrhea. All other review of systems negative except the above. 09/20/2018 Patient is lying in the bed comfortably. Breathing status is better today. No complains of chest pain. Leg swelling is improving but still having swelling. Creatinine 1.60 today. Lasix was changed to by mouth 40 mg twice daily. Continued on Aldactone 25 mg daily. Monitor potassium level. TSH within normal limits at 1.830. Echocardiogram showed ejection fraction 55-60%. No valvular stenosis noted. Moderate mitral regurgitation. Cardiology is on board Current medications reviewed. Objective - Vital Signs Vital signs: Vital Signs Temp 98.0 F 09/20/18 20:00 Pulse 90 09/20/18 20:00 Resp 20 09/20/18 20:00 BP 103/57 09/20/18 20:00 Pulse Ox 93 L 09/20/18 20:00 Intake & Output 09/20/18 09/20/18 09/21/18 06:59 18:59 06:59 Intake Total 1200 Output Total 2800 2750 500 Balance -2800 -1550 -500 Weight 169.7 kg Intake: Oral 1200 Output: Urine 2800 2750 500 Other: Voiding Method Toilet Toilet Toilet Urinal Urinal Urinal # Voids 1 1 - Exam PHYSICAL EXAMINATION: Patient is lying in the bed comfortably, no acute distress, awake alert and oriented. Morbidly obese.. HEENT: Normocephalic. Neck is supple. Pupils reactive. Nostrils clear. Oral cavity is moist. Ears reveal no drainage. Neck reveals no JVD, carotid bruits, or thyromegaly. CHEST EXAMINATION: Trachea is central. Symmetrical expansion. Bibasilar crackles positive no wheezing. Lung [place] clear to auscultation and percussion. CARDIAC: Normal S1, S2 with no gallops. No murmurs . Irregularly irregular rhythm. ABDOMEN: Soft. Bowel sounds normal. No organomegaly. No abdominal bruits. Extremities: 2+ bilateral edema. Skin discoloration with chronic venostasis changes. No ulcers. No clubbing or cyanosis Neurologically awake, alert, oriented x3 with well-coordinated movements. No focal deficits noted Skin: No rash or skin lesions. Psychiatric: Coperative. Nonsuicidal Musculoskeletal: No joint swelling or deformity. Normal range of motion. - Labs CBC & Chem 7: 09/19/18 06:02 09/20/18 12:25 Labs: Abnormal Lab Results - Last 24 Hours (Table) 09/20/18 Range/Units 12:25 Chloride 93 L (98-107) mmol/L Carbon Dioxide 35 H (22-30) mmol/L BUN 29 H (9-20) mg/dL Creatinine 1.60 H (0.66-1.25) mg/dL Glucose 293 H (74-99) mg/dL Assessment and Plan Assessment: Shortness of breath secondary to acute on chronic CHF with diastolic dy sfunction. Chronic persistent atrial fibrillation on anticoagulation. on Eliquis Moderate mitral regurgitation Coronary artery disease with history of stent placement COPD Obstructive sleep apnea on CPAP at home Hypertension Hyperlipidemia Acute on Chronic kidney disease stage III History of nephrolithiasis History of left leg DVT in 2004 History of colon abscess with bowel resection Morbid obesity BMI 54.8 Plan: Patient be continued on IV Lasix 40 mg twice daily. Added Aldactone 25 mg daily. Monitor renal function. Continue with Cardizem metoprolol and Eliquis. Cardiology is on board. 2-D echocardiogram was ordered. Further recommendations based on the clinical course. Prognosis is guarded. Time with Patient: Greater than 30
[2018-09-21] MEDS: LEVOTHYROXINE 137 MCG TAB PO SCH (06:46)
[2018-09-21] MEDS: SYMBICORT 160-4.5 MCG INHALER INHALATION SCH ×2 (07:06→19:24)
[2018-09-21] MEDS: IPRATROPIUM-ALBUTEROL 3 ML NEB INHALATION PRN ×3 (07:06→19:24)
[2018-09-21 07:27] LABS: Calcium 9.6 mg/dL (8.4-10.2); Potassium 3.3 mmol/L (3.5-5.1)
[2018-09-21] MEDS: traMADol 50 MG TAB PO PRN (10:17)
[2018-09-21] MEDS: SPIRONOLACTONE 25 MG TAB PO SCH (10:17)
[2018-09-21] MEDS: METOPROLOL TARTRATE 50 MG TAB PO SCH ×2 (10:18→21:40)
[2018-09-21] MEDS: FOLIC ACID 1 MG TAB PO SCH ×2 (10:18→21:40)
[2018-09-21] MEDS: DILTIAZEM ORAL 60 MG TAB PO SCH ×2 (10:18→21:39)
[2018-09-21] MEDS: FERROUS SULFATE 325 MG TAB PO SCH ×2 (10:18→21:39)
[2018-09-21] MEDS: LORATADINE 10 MG TAB PO SCH (10:18)
[2018-09-21] MEDS: DOCUSATE 100 MG CAP PO SCH ×2 (10:18→21:39)
[2018-09-21] MEDS: ALLOPURINOL 100 MG TAB PO SCH (10:19)
[2018-09-21] MEDS: APIXABAN 5 MG TAB PO SCH ×2 (10:19→21:39)
[2018-09-21] MEDS: FUROSEMIDE 40 MG TAB PO SCH ×2 (10:19→16:17)
--- NOTE | 2018-09-21 10:19 | P.PN ---
Subjective Progress Note Date: 09/21/18 IMPRESSION / ASSESSMENT: Acute on chronic diastolic heart failure with EF 55-60% Persistent atrial fibrillation PLAN: Continue anticoagulation with ELIQUIS Change Lasix to 40 mg orally twice daily Continue Aldactone 25 mg daily Potassium 40 mg daily for 3 days and then discontinue Patient is cleared for discharge from cardiology HPI Patient states that his breathing is at his baseline. He continues to have lower extremity edema but improved. He denies any chest pain. He states he has been urinating adequately. Weight is down another 1.8 kg from yesterday. EXAMINATION: Gen: This is a 48-year-old morbidly obese male. Vital signs: heart rate in the 80s, blood pressure 110/68, pulse ox 96% on 2 L. HEENT: Head is atraumatic, normocephalic. Pupils equal, round. Sclerae is anicteric. NECK: Supple. No JVD. No lymphadenopathy. No thyromegaly. LUNGS: Diminished with crackles in the bases. No intercostal retractions. HEART: Irregular rate and rhythm. Systolic murmur. ABDOMEN: Soft. Bowel sounds are present. No masses. No tenderness. EXTREMITIES: 2+ pedal edema. No calf tenderness. NEUROLOGICAL: Patient is awake, alert and oriented x3. Cranial nerves 2 through 12 are grossly intact. Nurse practitioner note has been reviewed, I agree with documented findings and plan of care. Patient was seen and examined. Objective - Vital Signs Vital signs: Vital Signs Temp 98.3 F 09/21/18 07:54 Pulse 87 09/21/18 08:00 Resp 19 09/21/18 08:00 BP 110/68 09/21/18 07:54 Pulse Ox 96 09/21/18 07:54 Intake & Output 09/20/18 09/21/18 09/21/18 18:59 06:59 18:59 Intake Total 1200 Output Total 2750 1700 Balance -1550 -1700 Weight 167.9 kg Intake: Oral 1200 Output: Urine 2750 1700 Other: Voiding Method Toilet Toilet Urinal Urinal # Voids 1 3 - Labs CBC & Chem 7: 09/19/18 06:02 09/21/18 06:41 Labs: Abnormal Lab Results - Last 24 Hours (Table) 09/20/18 09/21/18 Range/Units 12:25 06:41 Sodium 136 L (137-145) mmol/L Potassium 3.3 L (3.5-5.1) mmol/L Chloride 93 L 92 L (98-107) mmol/L Carbon Dioxide 35 H 33 H (22-30) mmol/L BUN 29 H 32 H (9-20) mg/dL Creatinine 1.60 H 1.66 H (0.66-1.25) mg/dL Glucose 293 H 256 H (74-99) mg/dL
[2018-09-21] MEDS ORDERED: Potassium Replacement Protocol 1 EACH MISC MISCELLANE PRN (11:48)
[2018-09-21] MEDS: POTASSIUM CHLORIDE ER 20 MEQ TAB.ER PO SCH (12:04)
[2018-09-21] MEDS: ATORVASTATIN 80 MG TAB PO SCH (21:39)
[2018-09-21] MEDS: SERTRALINE 100 MG TAB PO SCH (21:40)
--- NOTE | 2018-09-21 23:55 | P.PN ---
Subjective Progress Note Date: 09/21/18 Principal diagnosis: Acute CHF exacerbation Patient is a 48-year-old male with a known history of chronic atrial fibrillation on anticoagulation with Eliquis, coronary artery disease with history of stent placement, COPD, obstructive sleep apnea on CPAP at home, history of ME, history of DVT, hyperlipidemia, morbid obesity and other multiple medical problems came to ER with complaints of worsening shortness of breath and leg swelling. Patient has been having worsening symptoms for the past 2-3 days. No complains of fever or chills. No cough or sputum production. No nausea vomiting diarrhea and abdominal pain. No fever no chills. Denied any recent illnesses. Chest x-ray showed pleural diaphragmatic scarring at the left lung base unchanged. Coarse lung markings. No gross heart failure. EKG showed atrial fibrillation with PVCs and aberrant conduction. Troponin 3 negative BNP 4800, BUN 27 and creatinine 1.35 09/19/2018 Patient is still complaining of shortness of breath and tightness. Slightly improved compared to yesterday. Patient is being continued on Lasix 40 mg twice daily. Aldactone was added. Creatinine level I.51 Denied any complaints of dizziness or lightheadedness. Leg swelling slightly improved. No nausea vomiting or diarrhea. All other review of systems negative except the above. 09/20/2018 Patient is lying in the bed comfortably. Breathing status is better today. No complains of chest pain. Leg swelling is improving but still having swelling. Creatinine 1.60 today. Lasix was changed to by mouth 40 mg twice daily. Continued on Aldactone 25 mg daily. Monitor potassium level. TSH within normal limits at 1.830. Echocardiogram showed ejection fraction 55-60%. No valvular stenosis noted. Moderate mitral regurgitation. Cardiology is on board 09/21/2018 Patient states that he did have an episode of shortness of breath this morning. Otherwise currently living in the bed comfortably. Patient is being diuresed and Lasix was changed to by mouth. Continued on Aldactone. Patient is hypokalemic today which is being replaced. Otherwise leg swelling is much improved. Anticipate discharge in next 24 hours. Cardiology is following. Creatinine is 1.66 today. Current medications reviewed. Objective - Vital Signs Vital signs: Vital Signs Temp 98.3 F 09/21/18 12:00 Pulse 90 09/21/18 16:00 Resp 16 09/21/18 16:00 BP 93/62 04/07/19 16:00 Pulse Ox 95 09/21/18 16:00 Intake & Output 09/21/18 09/21/18 09/22/18 06:59 18:59 06:59 Intake Total 1680 Output Total 1700 900 Balance -1700 780 Weight 167.9 kg Intake: Oral 1680 Output: Urine 1700 900 Other: Voiding Method Toilet Urinal # Voids 3 2 - Exam PHYSICAL EXAMINATION: Patient is lying in the bed comfortably, no acute distress, awake alert and oriented. Morbidly obese.. HEENT: Normocephalic. Neck is supple. Pupils reactive. Nostrils clear. Oral cavity is moist. Ears reveal no drainage. Neck reveals no JVD, carotid bruits, or thyromegaly. CHEST EXAMINATION: Trachea is central. Symmetrical expansion. Bibasilar crackles positive no wheezing. Lung [place] clear to auscultation and percussion. CARDIAC: Normal S1, S2 with no gallops. No murmurs . Irregularly irregular rhythm. ABDOMEN: Soft. Bowel sounds normal. No organomegaly. No abdominal bruits. Extremities: 2+ bilateral edema. Skin discoloration with chronic venostasis changes. No ulcers. No clubbing or cyanosis Neurologically awake, alert, oriented x3 with well-coordinated movements. No focal deficits noted Skin: No rash or skin lesions. Psychiatric: Coperative. Nonsuicidal Musculoskeletal: No joint swelling or deformity. Normal range of motion. - Labs CBC & Chem 7: 09/19/18 06:02 09/21/18 06:41 Labs: Abnormal Lab Results - Last 24 Hours (Table) 09/21/18 Range/Units 06:41 Sodium 136 L (137-145) mmol/L Potassium 3.3 L (3.5-5.1) mmol/L Chloride 92 L (98-107) mmol/L Carbon Dioxide 33 H (22-30) mmol/L BUN 32 H (9-20) mg/dL Creatinine 1.66 H (0.66-1.25) mg/dL Glucose 256 H (74-99) mg/dL Assessment and Plan Assessment: Shortness of breath secondary to acute on chronic CHF with diastolic dysfunction. Chronic persistent atrial fibrillation on anticoagulation. on Eliquis Moderate mitral regurgitation Coronary artery disease with history of stent placement COPD Obstructive sleep apnea on CPAP at home Hypertension Hyperlipidemia Acute on Chronic kidney disease stage III History of nephrolithiasis History of left leg DVT in 2005 History of colon abscess with bowel resection Morbid obesity BMI 54.8 Plan: Patient be continued on IV Lasix 40 mg twice daily. Added Aldactone 25 mg daily. Monitor renal function. Continue with Cardizem metoprolol and Eliquis. Cardiology is on board. 2-D echocardiogram was ordered. Further recom mendations based on the clinical course. Prognosis is guarded. Time with Patient: Greater than 30
[2018-09-22] MEDS: IPRATROPIUM-ALBUTEROL 3 ML NEB INHALATION PRN (04:05)
[2018-09-22] MEDS: LEVOTHYROXINE 137 MCG TAB PO SCH (06:27)
[2018-09-22 07:10] LABS: Calcium 9.5 mg/dL (8.4-10.2); Potassium 3.3 mmol/L (3.5-5.1)
[2018-09-22] MEDS: SYMBICORT 160-4.5 MCG INHALER INHALATION SCH (07:56)
[2018-09-22] MEDS: traMADol 50 MG TAB PO PRN (08:49)
[2018-09-22] MEDS: DOCUSATE 100 MG CAP PO SCH (08:49)
[2018-09-22] MEDS: FERROUS SULFATE 325 MG TAB PO SCH (08:49)
[2018-09-22] MEDS: SPIRONOLACTONE 25 MG TAB PO SCH (08:49)
[2018-09-22] MEDS: METOLAZONE 2.5 MG TAB PO SCH (08:49)
[2018-09-22] MEDS: FOLIC ACID 1 MG TAB PO SCH (08:50)
[2018-09-22] MEDS: ALLOPURINOL 100 MG TAB PO SCH (08:50)
[2018-09-22] MEDS: LORATADINE 10 MG TAB PO SCH (08:50)
[2018-09-22] MEDS: FUROSEMIDE 40 MG TAB PO SCH ×2 (08:50→15:37)
[2018-09-22] MEDS: APIXABAN 5 MG TAB PO SCH (08:50)
[2018-09-22] MEDS: DILTIAZEM ORAL 60 MG TAB PO SCH (08:50)
[2018-09-22] MEDS: POTASSIUM CHLORIDE ER 20 MEQ TAB.ER PO SCH (08:50)
[2018-09-22] MEDS: METOPROLOL TARTRATE 50 MG TAB PO SCH (08:52)
[2018-09-22 09:08] VITALS: BP 111/60; PULSE 83; RESP 20; TEMP 98.3
[2018-09-22] MEDS ORDERED: ERGOCALCIFEROL 50,000 UNIT CAP PO SCH (12:00)
[2018-09-22 14:40] VITALS: BMI 53.5
--- NOTE | 2018-09-22 20:10 | P.PN ---
Subjective Patient looks a lot better this morning. Having breakfast sitting in bed. Lower extremity edema has improved. Breathing is a lot better his color in improved Is not a short of breath now On examination blood pressures 111/60 mmHg Pulse rate in the 80s and 90s irregular Afebrile Breath sounds are reduced bilaterally Heart sounds are irregular and distant Abdomen soft Lower extremity edema has improved Impression Persistent atrial fibrillation Chronic Congestive heart failure with systolic dysfunction, acute exacerbation Improved now Suggest switch to oral diuretics Continue rate control medication and granulation for atrial fibrillation Follow Dr. Wood once discharged Will follow Objective - Vital Signs Vital signs: Vital Signs Temp 98.3 F 09/22/18 08:00 Pulse 83 09/22/18 08:00 Resp 20 09/22/18 08:00 BP 111/60 09/22/18 08:00 Pulse Ox 95 09/22/18 08:00 Intake & Output 09/22/18 09/22/18 09/23/18 06:59 18:59 06:59 Intake Total 220 360 Output Total 925 950 Balance -705 -590 Weight 169.2 kg 169.2 kg Intake: Oral 220 360 Output: Urine 925 950 Other: Voiding Method Urinal # Voids 1 - Labs CBC & Chem 7: 09/19/18 06:02 09/22/18 06:29 Labs: Abnormal Lab Results - Last 24 Hours (Table) 09/22/18 Range/Units 06:29 Potassium 3.3 L (3.5-5.1) mmol/L Chloride 91 L (98-107) mmol/L Carbon Dioxide 36 H (22-30) mmol/L BUN 37 H (9-20) mg/dL Creatinine 1.78 H (0.66-1.25) mg/dL Glucose 252 H (74-99) mg/dL
== END 2018-09-22 16:38 | disposition home or self-care (01) | DRG 291 ==
LOC: EC 16:17 → 3SCARD 19:11 → OBSVTOIN 09-19 15:07
PROVIDERS: ADMIT Hospitalist; ATTEND Hospitalist
DX: I13.0 Hypertensive heart and chronic kidney disease with heart failure and stage 1 through stage 4 chronic kidney disease, or unspecified chronic kidney disease (principal); I50.33 Acute on chronic diastolic (congestive) heart failure; Z68.43 Body mass index [BMI] 50.0-59.9, adult; I48.1 Persistent atrial fibrillation; N17.9 Acute kidney failure, unspecified; E66.01 Morbid (severe) obesity due to excess calories; I27.20 Pulmonary hypertension, unspecified; I25.82 Chronic total occlusion of coronary artery; I08.1 Rheumatic disorders of both mitral and tricuspid valves; N18.3 Chronic kidney disease, stage 3 (moderate); I42.9 Cardiomyopathy, unspecified; E87.6 Hypokalemia; J98.01 Acute bronchospasm; I49.3 Ventricular premature depolarization; E78.5 Hyperlipidemia, unspecified; G47.33 Obstructive sleep apnea (adult) (pediatric); D50.9 Iron deficiency anemia, unspecified; I25.10 Atherosclerotic heart disease of native coronary artery without angina pectoris; J44.9 Chronic obstructive pulmonary disease, unspecified; E07.9 Disorder of thyroid, unspecified; F32.9 Major depressive disorder, single episode, unspecified; I73.9 Peripheral vascular disease, unspecified; I25.2 Old myocardial infarction; Z79.01 Long term (current) use of anticoagulants; Z79.51 Long term (current) use of inhaled steroids; Z79.890 Hormone replacement therapy; Z79.899 Other long term (current) drug therapy; Z91.19 Patient's noncompliance with other medical treatment and regimen; Z86.718 Personal history of other venous thrombosis and embolism; Z99.89 Dependence on other enabling machines and devices; Z87.442 Personal history of urinary calculi; Z90.49 Acquired absence of other specified parts of digestive tract; Z86.14 Personal history of Methicillin resistant Staphylococcus aureus infection; Z95.5 Presence of coronary angioplasty implant and graft; Z95.1 Presence of aortocoronary bypass graft; Z87.891 Personal history of nicotine dependence; Z71.3 Dietary counseling and surveillance; Z88.1 Allergy status to other antibiotic agents; Z88.0 Allergy status to penicillin; Z88.8 Allergy status to other drugs, medicaments and biological substances; Z91.048 Other nonmedicinal substance allergy status; Z82.61 Family history of arthritis; Z83.6 Family history of other diseases of the respiratory system; Z83.79 Family history of other diseases of the digestive system; Z84.1 Family history of disorders of kidney and ureter; Z82.62 Family history of osteoporosis
CPT/HCPCS: 36415; 71046; 80048; 80053; 82550; 83735; 83880; 84443; 84484; 85025; 85610; 85730; 93005; 93306; 94640; 96374; 99291

== ENCOUNTER 2018-10-23 17:35 | Inpatient (IN) | payer MEDICARE, OTHER ==
[2018-10-23] MEDS ORDERED: FUROSEMIDE 10 MG/ML 4 ML VIAL IV STA (17:42)
[2018-10-23] MEDS ORDERED: NITROGLYCERIN OINT 1 INCH/GM PACKET TOPICAL STA (17:42)
--- NOTE | 2018-10-23 17:48 | ED ---
General Adult HPI - General Stated complaint: SOB Time Seen by Provider: 10/23/18 17:38 Source: patient, EMS, RN notes reviewed Mode of arrival: EMS Limitations: no limitations - History of Present Illness Initial comments: Patient is a pleasant 48-year-old male presenting to the emergency department with difficulty in breathing. Symptoms have progressed with the past week. P stella does have a history of similar symptoms previously associated with congestive heart failure. Patient does feel like his legs are little bit swollen. No chest pain. Mild cough. No fevers. - Related Data Home Medications Medication Instructions Recorded Confirmed Loratadine [Claritin] 10 mg PO DAILY 10/19/13 10/23/18 Sertraline [Zoloft] 100 mg PO HS 10/19/13 10/23/18 Atorvastatin [Lipitor] 80 mg PO HS 03/25/15 10/23/18 Folic Acid 1 mg PO BID 03/25/15 10/23/18 Levothyroxine Sodium [Synthroid] 137 mcg PO QAM 03/25/15 10/23/18 Budesonide/Formoterol Fumarate 2 puff INHALATION RT-BID 08/01/16 10/23/18 [Symbicort 160-4.5 Mcg Inhaler] Allopurinol [Zyloprim] 100 mg PO DAILY 12/17/17 10/23/18 Ergocalciferol (Vitamin D2) 50,000 unit PO MO 05/05/18 10/23/18 [Drisdol] Ferrous Sulfate [Iron (65 MG 325 mg PO BID 05/05/18 10/23/18 Elemental)] traMADol HCL [Ultram] 50 mg PO BID PRN 05/05/18 10/23/18 Albuterol Inhaler [Ventolin Hfa 1 - 2 puff INHALATION RT-QID PRN 09/17/18 10/23/18 Inhaler] Albuterol Nebulized [Ventolin 2.5 mg INHALATION RT-QID PRN 09/17/18 10/23/18 Nebulized] Metolazone [Zaroxolyn] 2.5 mg PO MOFR 09/17/18 10/23/18 Metoprolol Tartrate [Lopressor] 100 mg PO BID 09/17/18 10/23/18 Previous Rx's Medication Instructions Recorded Nitroglycerin Sl Tabs [Nitrostat] 0.4 mg SUBLINGUAL Q5M PRN #30 tab 12/03/14 Calcium Carbonate [Tums] 1,000 mg PO TID PRN chew 05/08/18 Apixaban [Eliquis] 5 mg PO BID tab 06/03/18 Diltiazem Oral [Cardizem*] 60 mg PO BID #60 tab 06/03/18 Docusate [Colace] 100 mg PO BID PRN #30 cap 09/22/18 Furosemide [Lasix] 40 mg PO BID@0900,1600 #60 tab 09/22/18 Potassium Chloride ER [K-Dur 20] 40 meq PO DAILY 3 Days #6 09/22/18 tab.er.prt Spironolactone [Aldactone] 25 mg PO DAILY #30 tab 09/22/18 Allergies Allergy/AdvReac Type Severity Reaction Status Date / Time adhesive Allergy "PLASTIC Verified 10/23/18 18:14 TAPE PEELS SKIN,PAPER TAPE IS OK" linezolid Allergy Unknown Verified 10/23/18 18:14 penicillin G Allergy Rash/Hives Verified 10/23/18 18:14 Cephalosporins AdvReac FEVER Verified 10/23/18 18:14 Review of Systems ROS Statement: Those systems with pertinent positive or pertinent negative responses have been documented in the HPI. ROS Other: All systems not noted in ROS Statement are negative. Constitutional: Denies: fever, chills Eyes: Denies: eye pain ENT: Denies: ear pain Respiratory: Reports: cough, dyspnea Cardiovascular: Denies: chest pain Endocrine: Reports: fatigue Gastrointestinal: Denies: abdominal pain Genitourinary: Denies: dysuria Musculoskeletal: Denies: back pain Skin: Denies: rash Neurological: Denies: weakness Past Medical History Past Medical History: Atrial Fibrillation, Asthma, Coronary Artery Disease (CAD), Chest Pain / Angina, Heart Failure, COPD, Deep Vein Thrombosis (DVT), Hyperlipidemia, Hypertension, Myocardial Infarction (MT), Renal Disease, Sleep Apnea/CPAP/BIPAP, Thyroid Disorder, Vascular Disorder Additional Past Medical History / Comment(s): Chronic CHF, tracheobronchitis, CKD stage III, kidney stones, DVT L leg in 2004, KAMRYN without device use, colon abscess with bowel resection, multiple abdominal surgeries for a hiatal hernia that was complicated by prolonged hospitalization and prolonged ventilator dependent respiratory failure requiring a tracheostomy tube insertion, pvd-lower legs discolored/edematous, diverticular disease, chronic iron deficiency anemia, vertigo at times, Last Myocardial Infarction Date:: History of Any Multi-Drug Resistant Organisms: MRSA Date of last positivie culture/infection: 02/01/15 MDRO Source:: Abdomen Past Surgical History: Bowel Resection, Heart Catheterization With Stent, Hernia Repair Additional Past Surgical History / Comment(s): Colonoscopies, heart stents x 4, bowel resection with colostomy and colostomy reversal (removed a foot of pts colon)-2003, hernia repair with skin grafts and 2 fistula repairs (hospitalized for 1 year @[facility])-2010 MRSA 2015 in wounds. Past Anesthesia/Blood Transfusion Reactions: No Reported Reaction Additional Past Anesthesia/Blood Transfusion Reaction / Comment(s): Pt has received blood in past without reaction-2010 Date of Last Stent Placement:: 03/28/2015 Smoking Status: Former smoker - Past Family History Mother Family Medical History: Osteoarthritis (OA), Pneumonia Additional Family Medical History / Comment(s): osteoporosis. arthroscopy surgery for knee Father Family Medical History: Liver Disease, Renal Disease Additional Family Medical History / Comment(s): triple heart bypass. liver transplant. aortic aneursym General Exam Limitations: no limitations General appearance: alert, in no apparent distress, obese Head exam: Present: atraumatic, normocephalic Eye exam: Present: normal appearance, PERRL ENT exam: Present: normal oropharynx Neck exam: Present: normal inspection Respiratory exam: Present: decreased breath sounds (Bilateral bases) Cardiovascular Exam: Present: regular rate, irregular rhythm GI/Abdominal exam: Present: soft. Absent: tenderness Extremities exam: Present: pedal edema. Absent: calf tenderness Neurological exam: Present: alert Psychiatric exam: Present: normal affect, normal mood Skin exam: Present: normal color Course Vital Signs 10/23/18 17:47 Temperature 98.4 F Pulse Rate 92 Respiratory 18 Rate Blood Pressure 127/72 O2 Sat by Pulse 92 L Oximetry EKG Findings - EKG Comments: EKG Findings:: A. fib with rate of 94. QRS 84. QT 380. QTC 475. Normal axis. Low QRS voltage. No acute ST change. Medical Decision Making - Medical Decision Making Patient reevaluated and updated. Case was discussed with Dr. Odom, covering for hospital call, who will admit. - Lab Data Result diagrams: 10/23/18 17:40 10/23/18 17:40 Lab Results 10/23/18 10/23/18 10/23/18 Range/Units 17:40 17:40 17:40 WBC 8.0 (3.8-10.6) k/uL RBC 4.72 (4.30-5.90) m/uL Hgb 13.9 (13.0-17.5) gm/dL Hct 41.9 (39.0-53.0) % MCV 88.8 (80.0-100.0) fL MCH 29.4 (25.0-35.0) pg MCHC 33.1 (31.0-37.0) g/dL RDW 16.7 H (11.5-15.5) % Plt Count 148 L (150-450) k/uL Neutrophils % 70 % Lymphocytes % 18 % Monocytes % 5 % Eosinophils % 4 % Basophils % 1 % Neutrophils # 5.6 (1.3-7.7) k/uL Lymphocytes # 1.5 (1.0-4.8) k/uL Monocytes # 0.4 (0-1.0) k/uL Eosinophils # 0.3 (0-0.7) k/uL Basophils # 0.1 (0-0.2) k/uL Poikilocytosis Slight Anisocytosis Slight PT 10.8 (9.0-12.0) sec INR 1.0 (<1.2) APTT 36.6 H (22.0-30.0) sec Sodium (137-145) mmol/L Potassium (3.5-5.1) mmol/L Chloride (98-107) mmol/L Carbon Dioxide (22-30) mmol/L Anion Gap mmol/L BUN (9-20) mg/dL Creatinine (0.66-1.25) mg/dL Est GFR (CKD-EPI)AfAm (>60 ml/min/1.73 sqM) Est GFR (CKD-EPI)NonAf (>60 ml/min/1.73 sqM) Glucose (74-99) mg/dL Calcium (8.4-10.2) mg/dL Total Bilirubin (0.2-1.3) mg/dL AST (17-59) U/L ALT (21-72) U/L Alkaline Phosphatase (38-126) U/L Creatine Kinase (55-170) U/L Troponin I (0.000-0.034) ng/mL NT-Pro-B Natriuret Pep 6110 pg/mL Total Protein (6.3-8.2) g/dL Albumin (3.5-5.0) g/dL 10/23/18 10/23/18 Range/Units 17:40 17:40 WBC (3.8-10.6) k/uL RBC (4.30-5.90) m/uL Hgb (13.0-17.5) gm/dL Hct (39.0-53.0) % MCV (80.0-100.0) fL MCH (25.0-35.0) pg MCHC (31.0-37.0) g/dL RDW (11.5-15.5) % Plt Count (150-450) k/uL Neutrophils % % Lymphocytes % % Monocytes % % Eosinophils % % Basophils % % Neutrophils # (1.3-7.7) k/uL Lymphocytes # (1.0-4.8) k/uL Monocytes # (0-1.0) k/uL Eosinophils # (0-0.7) k/uL Basophils # (0-0.2) k/uL Poikilocytosis Anisocytosis PT (9.0-12.0) sec INR (<1.2) APTT (22.0-30.0) sec Sodium 137 (137-145) mmol/L Potassium 4.2 (3.5-5.1) mmol/L Chloride 99 (98-107) mmol/L Carbon Dioxide 27 (22-30) mmol/L Anion Gap 11 mmol/L BUN 25 H (9-20) mg/dL Creatinine 1.55 H (0.66-1.25) mg/dL Est GFR (CKD-EPI)AfAm 61 (>60 ml/min/1.73 sqM) Est GFR (CKD-EPI)NonAf 53 (>60 ml/min/1.73 sqM) Glucose 242 H (74-99) mg/dL Calcium 8.6 (8.4-10.2) mg/dL Total Bilirubin 1.6 H (0.2-1.3) mg/dL AST 44 (17-59) U/L ALT 37 (21-72) U/L Alkaline Phosphatase 83 (38-126) U/L Creatine Kinase 44 L (55-170) U/L Troponin I <0.012 (0.000-0.034) ng/mL NT-Pro-B Natriuret Pep pg/mL Total Protein 7.1 (6.3-8.2) g/dL Albumin 3.9 (3.5-5.0) g/dL - Radiology Data Radiology results: image reviewed (Chest x-ray shows findings consistent with CHF. Pulmonary congestion.) Disposition Clinical Impression: CHF exacerbation Disposition: ADMITTED IP TO THIS HOSP Is patient prescribed a controlled substance at d/c from ED?: No Referrals: Aguilar Bautista DO [Primary Care Provider] - 1-2 days Decision Time: 19:08
[2018-10-23 18:02] LABS: Anisocytosis Slight; Basophils # (A) 0.1 k/uL (0-0.2); Basophils % (A) 1 %; Eosinophils # (A) 0.3 k/uL (0-0.7); Eosinophils % (A) 4 %; HCT 41.9 % (39.0-53.0); HGB 13.9 gm/dL (13.0-17.5); Lymphocytes # (A) 1.5 k/uL (1.0-4.8); Lymphocytes % (A) 18 %; MCH 29.4 pg (25.0-35.0); MCHC 33.1 g/dL (31.0-37.0); MCV 88.8 fL (80.0-100.0); Mean Platelet Volume 7.8; Monocytes # (A) 0.4 k/uL (0-1.0); Monocytes % (A) 5 %; Neutrophils # (A) 5.6 k/uL (1.3-7.7); Neutrophils % (A) 70 %; Platelet Count 148 k/uL (150-450); Poikilocytosis Slight; RBC 4.72 m/uL (4.30-5.90); RDW 16.7 % (11.5-15.5)
[2018-10-23 18:10] LABS: Partial Thromboplastin Time 36.6 sec (22.0-30.0); Prothrombin Time 10.8 sec (9.0-12.0)
[2018-10-23 18:17] LABS: Albumin 3.9 g/dL (3.5-5.0); Calcium 8.6 mg/dL (8.4-10.2); Potassium 4.2 mmol/L (3.5-5.1); Total Bilirubin 1.6 mg/dL (0.2-1.3); Total Protein 7.1 g/dL (6.3-8.2)
--- NOTE | 2018-10-23 18:43 | XR ---
EXAMINATION TYPE: XR chest 2V DATE OF EXAM: 10/23/2018 COMPARISON: 09/17/2018 HISTORY: Asthma. The heart failure. COPD. Short of breath. TECHNIQUE: Frontal and lateral views of the chest are obtained. FINDINGS: Heart appears enlarged. There is blunting of costophrenic angles. There is fluid in the ma jason fissures. There is mild pulmonary vascular congestion. IMPRESSION: Mild congestive heart failure with pleural effusions. Chest appears worse than last exam . Pulmonary congestion increased. Pleural fluid increased slightly. There is probably underlying pulm onary fibrosis.
[2018-10-23] MEDS ORDERED: ASPIRIN 325 MG TAB PO STA (19:09)
[2018-10-23 19:59] LABS: Glucose,Whole Blood 301 mg/dL (75-99)
[2018-10-23] MEDS ORDERED: DOCUSATE 100 MG CAP PO PRN (22:25)
[2018-10-23] MEDS ORDERED: traMADol 50 MG TAB PO PRN (22:25)
[2018-10-23] MEDS ORDERED: NITROGLYCERIN SL TABS 0.4 MG TAB SUBLINGUAL PRN (22:25)
[2018-10-23] MEDS ORDERED: INSULIN ASPART (NovoLOG) 100 UNIT/ML VIAL SQ ONE (22:32)
[2018-10-23] MEDS: ENALAPRILAT 1.25 MG/ML 1 ML VIAL IVP SCH (22:47)
[2018-10-23 23:03] LABS: Glucose,Whole Blood 371 mg/dL (75-99)
[2018-10-24] MEDS: APIXABAN 5 MG TAB PO SCH ×3 (00:05→21:36)
[2018-10-24] MEDS: METOPROLOL TARTRATE 50 MG TAB PO SCH ×3 (00:05→21:35)
[2018-10-24] MEDS: DILTIAZEM ORAL 60 MG TAB PO SCH ×3 (00:05→21:35)
[2018-10-24] MEDS: INSULIN ASPART (NovoLOG) 100 UNIT/ML VIAL SQ SCH ×5 (00:06→23:21)
[2018-10-24] MEDS: SERTRALINE 100 MG TAB PO SCH ×2 (00:06→21:36)
[2018-10-24] MEDS: NITROGLYCERIN OINT 1 INCH/GM PACKET TOPICAL SCH ×2 (00:07→09:33)
[2018-10-24 02:01] LABS: Glucose,Whole Blood 312 mg/dL (75-99)
[2018-10-24] MEDS: ALBUTEROL NEBULIZED 2.5 MG/3 ML INHALATION PRN ×4 (03:08→23:55)
[2018-10-24] MEDS: ENALAPRILAT 1.25 MG/ML 1 ML VIAL IVP SCH ×2 (04:43→09:30)
[2018-10-24] MEDS: FUROSEMIDE 10 MG/ML 4 ML VIAL IV SCH ×3 (04:51→17:35)
[2018-10-24 04:59] LABS: Calcium 8.8 mg/dL (8.4-10.2); Potassium 4.6 mmol/L (3.5-5.1)
[2018-10-24 05:08] LABS: Anisocytosis Slight; Basophils % (A) 0 %; Eosinophils % (A) 0 %; HCT 39.7 % (39.0-53.0); HGB 13.1 gm/dL (13.0-17.5); Lymphocytes # (A) 0.6 k/uL (1.0-4.8); Lymphocytes % (A) 10 %; MCH 29.2 pg (25.0-35.0); MCV 88.6 fL (80.0-100.0); Mean Platelet Volume 8.4; Monocytes # (A) 0.1 k/uL (0-1.0); Monocytes % (A) 2 %; Neutrophils # (A) 5.3 k/uL (1.3-7.7); Neutrophils % (A) 87 %; Platelet Count 140 k/uL (150-450); Poikilocytosis Slight; RBC 4.48 m/uL (4.30-5.90); RDW 17.5 % (11.5-15.5); WBC 6.1 k/uL (3.8-10.6)
[2018-10-24] MEDS ORDERED: INSULIN ASPART (NovoLOG) 100 UNIT/ML VIAL SQ SCH (06:00)
--- NOTE | 2018-10-24 07:38 | P.CRDCN ---
History of Present Illness Consult date: 10/24/18 Chief complaint: Shortness of breath History of present illness: This is another admission for this 48-year-old gentleman with a past medical his tory significant for severe triple-vessel coronary artery disease, prior coronary revascularization, chronic atrial fibrillation, chronic diastolic congestive heart failure, chronic kidney disease, morbid obesity, hypertension, and dyslipidemia. He just was discharged from the hospital a few weeks ago with acute exacerbation of congestive heart failure secondary to diastole dysfunction. This time he presented to the hospital complaining of progressive exertional dyspnea as well as bilateral lower extremities edema. He states clearly that he gained about 10 pounds within few days. No symptoms of chest pain or chest discomfort. He did develop severe bilateral lower extremities edema according to him and edema has improved overnight. The chest x-ray showed findings consistent with CHF and fluid overload. The BMP was checked and came in to be around 6000. The EKG showed atrial fibrillation without significant for ischemic ST or T-wave abnormalities. The troponin was checked and came in to be within normal limits. The patient was initiated on Lasix IV at this point. He is known to have chronic kidney disease. He states clearly that he was compliant with all of his medications and also he was compliant with his diet. Please note that the patient does have history of coronary artery disease and he underwent stenting of the left circumflex, stenting of the LAD as well as, and also known chronic total occlusion of the right coronary artery. During his last admission, he underwent an echocardiogram and that revealed normal LV function was moderate mitral regurgitation. Also the right side of the heart was enlarged by the echo. Past Medical History Past Medical History: Atrial Fibrillation, Asthma, Coronary Artery Disease (CAD ), Chest Pain / Angina, Heart Failure, COPD, Deep Vein Thrombosis (DVT), Hyperlipidemia, Hypertension, Myocardial Infarction (SD), Renal Disease, Sleep Apnea/CPAP/BIPAP, Thyroid Disorder, Vascular Disorder Additional Past Medical History / Comment(s): Chronic CHF, tracheobronchitis, CKD stage III, kidney stones, DVT L leg in 2004, KAMRYN without device use, colon abscess with bowel resection, multiple abdominal surgeries for a hiatal hernia that was complicated by prolonged hospitalization and prolonged ventilator dependent respiratory failure requiring a tracheostomy tube insertion, pvd-lower legs discolored/edematous, diverticular disease, chronic iron deficiency anemia, vertigo at times, Last Myocardial Infarction Date:: History of Any Multi-Drug Resistant Organisms: MRSA Date of last positivie culture/infection: 02/01/15 MDRO Source:: Abdomen Past Surgical History: Bowel Resection, Heart Catheterization With Stent, Hernia Repair Additional Past Surgical History / Comment(s): Colonoscopies, heart stents x 4, bowel resection with colostomy and colostomy reversal (removed a foot of pts colon)-2003, hernia repair with skin grafts and 2 fistula repairs (hospitalized for 1 year @[facility])-2010 MRSA 2015 in wounds. Past Anesthesia/Blood Transfusion Reactions: No Reported Reaction Additional Past Anesthesia/Blood Transfusion Reaction / Comment(s): Pt has received blood in past without reaction-2010 Date of Last Stent Placement:: 03/28/2015 Past Psychological History: Depression Additional Psychological History / Comment(s): PT IS DISABLED. PT LIVES WITH MOTHER AND 2 PET CATS AND 1 DOG. HOME HAS A RAMP. USES A CANE CURRENTLY-. NO OUTSIDE SERVICES RECIEVED. Smoking Status: Former smoker Past Alcohol Use History: None Reported Additional Past Alcohol Use History / Comment(s): STARTED SMOKING AGE 26, (1995) AND QUIT IN 2008. HE THEN RESUMED SMOKING IN 2015. PATIENT QUIT THIS YEAR IN NOVEMBER AND NOW SMOKES ONE TO twO CIGARETTES A DAY. Past Drug Use History: None Reported - Past Family History Mother Family Medical History: Osteoarthritis (OA), Pneumonia Additional Family Medical History / Comment(s): osteoporosis. arthroscopy surgery for knee Father Family Medical History: Liver Disease, Renal Disease Additional Family Medical History / Comment(s): triple heart bypass. liver transplant. aortic aneursym Medications and Allergies Home Medications Medication Instructions Recorded Confirmed Type Loratadine [Claritin] 10 mg PO DAILY 10/19/13 10/23/18 History Sertraline [Zoloft] 100 mg PO HS 10/19/13 10/23/18 History Nitroglycerin Sl Tabs [Nitrostat] 0.4 mg SUBLINGUAL Q5M PRN #30 tab 12/03/14 10/23/18 Rx Atorvastatin [Lipitor] 80 mg PO HS 03/25/15 10/23/18 History Folic Acid 1 mg PO BID 03/25/15 10/23/18 History Levothyroxine Sodium [Synthroid] 137 mcg PO QAM 03/25/15 10/23/18 History Budesonide/Formoterol Fumarate 2 puff INHALATION RT-BID 08/01/16 10/23/18 History [Symbicort 160-4.5 Mcg Inhaler] Allopurinol [Zyloprim] 100 mg PO DAILY 12/17/17 10/23/18 History Ergocalciferol (Vitamin D2) 50,000 unit PO MO 05/05/18 10/23/18 History [Drisdol] Ferrous Sulfate [Iron (65 MG 325 mg PO BID 05/05/18 10/23/18 History Elemental)] traMADol HCL [Ultram] 50 mg PO BID PRN 05/05/18 10/23/18 History Calcium Carbonate [Tums] 1,000 mg PO TID PRN chew 05/08/18 10/23/18 Rx Apixaban [Eliquis] 5 mg PO BID tab 06/03/18 10/23/18 Rx Diltiazem Oral [Cardizem*] 60 mg PO BID #60 tab 06/03/18 10/23/18 Rx Albuterol Inhaler [Ventolin Hfa 1 - 2 puff INHALATION RT-QID PRN 09/17/18 10/23/18 History Inhaler] Albuterol Nebulized [Ventolin 2.5 mg INHALATION RT-QID PRN 09/17/18 10/23/18 History Nebulized] Metolazone [Zaroxolyn] 2.5 mg PO MOFR 09/17/18 10/23/18 History Metoprolol Tartrate [Lopressor] 100 mg PO BID 09/17/18 10/23/18 History Docusate [Colace] 100 mg PO BID PRN #30 cap 09/22/18 10/23/18 Rx Furosemide [Lasix] 40 mg PO BID@0900,1600 #60 tab 09/22/18 10/23/18 Rx Potassium Chloride ER [K-Dur 20] 40 meq PO DAILY 3 Days #6 09/22/18 10/23/18 Rx tab.er.prt Spironolactone [Aldactone] 25 mg PO DAILY #30 tab 09/22/18 10/23/18 Rx Allergies Allergy/AdvReac Type Severity Reaction Status Date / Time adhesive Allergy "PLASTIC Verified 10/23/18 18:14 TAPE PEELS SKIN,PAPER TAPE IS OK" linezolid Allergy Unknown Verified 10/23/18 18:14 penicillin G Allergy Rash/Hives Verified 10/23/18 18:14 Cephalosporins AdvReac FEVER Verified 10/23/18 18:14 Physical Exam Vitals: Vital Signs Temp Pulse Resp BP BP Pulse Ox 10/24/18 07:25 106 H 10/24/18 07:11 109 H 93 L 10/24/18 04:00 97.8 F 91 22 112/71 92 L 10/24/18 03:17 95 10/24/18 03:08 96 10/24/18 03:00 92 23 97/68 90 L 10/24/18 02:00 87 22 103/60 93 L 10/24/18 01:00 95 15 109/78 95 10/24/18 00:00 98.0 F 93 19 93/70 91 L 10/23/18 23:00 95 19 99/72 90 L 10/23/18 22:00 97 36 H 108/75 89 L 10/23/18 21:00 102 H 23 93/60 88 L 10/23/18 20:03 90 29 H 92 L 10/23/18 19:38 98.1 F 99/72 94 L 10/23/18 19:27 97.9 F 98 20 119/79 98 10/23/18 17:47 98.4 F 92 18 127/72 92 L Intake and Output 10/23/18 10/24/18 10/24/18 22:59 06:59 14:59 Output Total 500 450 Balance -500 -450 Output: Urine 500 450 Other: Weight 175.54 kg - Constitutional General appearance: no acute distress - Respiratory Respiratory: bilateral: rales - Cardiovascular Rhythm: irregularly irregular Heart sounds: normal: S1, S2 Results 10/24/18 04:18 10/24/18 04:18 Cardiac Enzymes 10/23/18 10/23/18 Range/Units 17:40 17:40 AST 44 (17-59) U/L Troponin I <0.012 (0.000-0.034) ng/mL Coagulation 10/23/18 Range/Units 17:40 PT 10.8 (9.0-12.0) sec APTT 36.6 H (22.0-30.0) sec CBC 10/23/18 10/24/18 Range/Units 17:40 04:18 WBC 8.0 6.1 (3.8-10.6) k/uL RBC 4.72 4.48 (4.30-5.90) m/uL Hgb 13.9 13.1 (13.0-17.5) gm/dL Hct 41.9 39.7 (39.0-53.0) % Plt Count 148 L 140 L (150-450) k/uL Comprehensive Metabolic Panel 10/23/18 10/24/18 Range/Units 17:40 04:18 Sodium 137 134 L (137-145) mmol/L Potassium 4.2 4.6 (3.5-5.1) mmol/L Chloride 99 98 (98-107) mmol/L Carbon Dioxide 27 28 (22-30) mmol/L BUN 25 H 31 H (9-20) mg/dL Creatinine 1.55 H 1.66 H (0.66-1.25) mg/dL Glucose 242 H 298 H (74-99) mg/dL Calcium 8.6 8.8 (8.4-10.2) mg/dL AST 44 (17-59) U/L ALT 37 (21-72) U/L Alkaline Phosphatase 83 (38-126) U/L Total Protein 7.1 (6.3-8.2) g/dL Albumin 3.9 (3.5-5.0) g/dL Current Medications Generic Name Dose Route Start Last Admin Trade Name Freq PRN Reason Stop Dose Admin Albuterol Sulfate 2.5 mg 10/23/18 22:25 10/24/18 07:11 Ventolin Nebulized INHALATION 2.5 mg RT-QID PRN Administration Shortness Of Breath Allopurinol 100 mg 10/24/18 09:00 Zyloprim PO DAILY [facility] Apixaban 5 mg 10/23/18 22:30 10/24/18 00:05 Eliquis PO 5 mg BID [facility] Administration Aspirin 325 mg 10/24/18 19:09 Aspirin PO DAILY [facility] Atorvastatin Calcium 80 mg 10/24/18 21:00 Lipitor PO HS [facility] Calcium Carbonate/Glycine 500 mg 10/23/18 22:25 Tums PO TID PRN Heartburn Diltiazem HCl 60 mg 10/23/18 22:30 10/24/18 00:05 Cardizem Oral PO 60 mg BID [facility] Administration Docusate Sodium 100 mg 10/23/18 22:25 Colace PO BID PRN Constipation Enalaprilat 1.25 mg 10/23/18 20:00 10/24/18 04:43 Vasotec IVP Not Given Q6H [facility] Ergocalciferol 50,000 unit 10/27/18 09:00 Vitamin D2 PO Mo@0900 [facility] Ferrous Sulfate 325 mg 10/24/18 09:00 Feosol PO BID [facility] Folic Acid 1 mg 10/24/18 09:00 Folic Acid PO BID [facility] Furosemide 40 mg 10/24/18 02:00 10/24/18 04:51 Lasix IV 40 mg Q8H [facility] Administration Insulin Aspart 0 unit 10/24/18 06:00 Novolog SQ Q6H [facility] Protocol Levothyroxine Sodium 137 mcg 10/24/18 06:30 Synthroid PO QAM@0630 [facility] Loratadine 10 mg 10/24/18 09:00 Claritin PO DAILY [facility] Metolazone 2.5 mg 10/24/18 09:00 Zaroxolyn PO MoFr@0900 [facility] Metoprolol Tartrate 100 mg 10/23/18 22:30 10/24/18 00:05 Lopressor PO 100 mg BID [facility] Administration Nitroglycerin 1 inch 10/23/18 22:00 10/24/18 00:07 Nitro-Bid Oint TOPICAL 1 inch QID [facility] Administration Nitroglycerin 0.4 mg 10/23/18 22:25 Nitrostat SUBLINGUAL Q5M PRN Chest Pain Potassium Chloride 40 meq 10/24/18 09:00 K-Dur 20 PO DAILY [facility] Sertraline HCl 100 mg 10/23/18 22:30 10/24/18 00:06 Zoloft PO 100 mg HS [facility] Administration Sodium Chloride 10 ml 10/23/18 21:00 10/24/18 00:07 Saline Flush IV 10 ml BID [facility] Administration Spironolactone 25 mg 10/24/18 09:00 Aldactone PO DAILY [facility] Tramadol HCl 50 mg 10/23/18 22:25 10/24/18 00:05 Ultram PO 50 mg BID PRN Administration Pain Intake and Output 10/23/18 10/24/18 10/24/18 22:59 06:59 14:59 Output Total 500 450 Balance -500 -450 Output: Urine 500 450 Other: Weight 175.54 kg 10/24/18 04:18 10/24/18 04:18 Assessment and Plan Assessment: Assessment #1 congestive heart failure exacerbation secondary to diastole dysfunction, acute on chronic #2 chronic atrial fibrillation with controlled heart rate #3 severe triple-vessel coronary artery disease and prior coronary revascularization #4 multiple comorbid conditions including hypertension, dyslipidemia, and obesity. Plan #1 continue the current dose of Lasix IV #2 continue monitor the kidney function and electrolytes #3 no need to repeat the echo since a recent echo showed normal LV function #4 continue oral anticoagulation for the atrial fibrillation #5 follow-up with the patient Thank you for allowing us participate in his care and we'll continue following up with the patient
[2018-10-24] MEDS: LEVOTHYROXINE 137 MCG TAB PO SCH (08:09)
[2018-10-24] MEDS ORDERED: METOLAZONE 2.5 MG TAB PO SCH (09:00)
[2018-10-24] MEDS: FOLIC ACID 1 MG TAB PO SCH ×2 (09:31→21:36)
[2018-10-24] MEDS: ALLOPURINOL 100 MG TAB PO SCH (09:31)
[2018-10-24] MEDS: FERROUS SULFATE 325 MG TAB PO SCH ×2 (09:31→21:36)
[2018-10-24] MEDS: LORATADINE 10 MG TAB PO SCH (09:32)
[2018-10-24] MEDS: SPIRONOLACTONE 25 MG TAB PO SCH (09:33)
[2018-10-24] MEDS: traMADol 50 MG TAB PO PRN (09:34)
[2018-10-24] MEDS: POTASSIUM CHLORIDE ER 20 MEQ TAB.ER PO SCH (09:37)
[2018-10-24 11:46] LABS: Glucose,Whole Blood 354 mg/dL (75-99)
[2018-10-24] MEDS: IPRATROPIUM-ALBUTEROL 3 ML NEB INHALATION SCH ×3 (11:56→21:15)
[2018-10-24 11:59] LABS: Hemoglobin A1C 9.6 % (4.0-6.0)
--- NOTE | 2018-10-24 14:37 | P.HPIM ---
History of Present Illness 48-year-old pleasant gentleman with past medical history of triple-vessel disease and possible chronic diastolic dysfunction came in with complaints of shortness of breath some orthopnea, she will proximal nocturnal dyspnea. Patient does have pulmonary edema on the chest x-ray along with the mild pedal edema along with elevated BNP because of which patient was admitted and was started on IV Lasix. Upon exam patient is morbidly obese appears to have sleep apnea and doesn't use CPAP machine at home patient's RVSP is was within normal limits from his previous echocardiogram patient appears to significant restrictive lung disease does use 2 L of onset at home used to be a smoker quit smoking a few months ago. Patient does have bilateral chronic venous stasis is no significant pitting pedal edema that is very minimal edema in the legs. His JVD although not really appreciable. Patient shortness of breath appears to be multifactorial rather than justbecause of diastolic dysfunction. Patient is not wheezing on exam although limited air entry into bilateral lung [place] Review of Systems REVIEW OF SYSTEMS: CONSTITUTIONAL: No fever, no malaise, no fatigue. HEENT: No recent visual problems or hearing problems. Denied any sore throat. CARDIOVASCULAR: No chest pain, no palpitations, no syncope. PULMONARY:no hemoptysis. GASTROINTESTINAL: No diarrhea, no nausea, no vomiting, no abdominal pain. NEUROLOGICAL: No headaches, no weakness, no numbness. HEMATOLOGICAL: Denies any bleeding or petechiae. GENITOURINARY: Denies any burning micturition, frequency, or urgency. MUSCULOSKELETAL/RHEUMATOLOGICAL: Denies any joint pain, swelling, or any muscle pain. ENDOCRINE: Denies any polyuria or polydipsia. The rest of the 14-point review of systems is negative. Past Medical History Past Medical History: Atrial Fibrillation, Asthma, Coronary Artery Disease (CAD), Chest Pain / Angina, Heart Failure, COPD, Deep Vein Thrombosis (DVT), Hyperlipidemia, Hypertension, Myocardial Infarction (MT), Renal Disease, Sleep Apnea/CPAP/BIPAP, Thyroid Disorder, Vascular Disorder Additional Past Medical History / Comment(s): Chronic CHF, tracheobronchitis, CKD stage III, kidney stones, DVT L leg in 2004, KAMRYN without device use, colon abscess with bowel resection, multiple abdominal surgeries for a hiatal hernia that was complicated by prolonged hospitalization and prolonged ventilator dependent respiratory failure requiring a tracheostomy tube insertion, pvd-lower legs discolored/edematous, diverticular disease, chronic iron deficiency anemia, vertigo at times, Last Myocardial Infarction Date:: History of Any Multi-Drug Resistant Organisms: MRSA Date of last positivie culture/infection: 02/01/15 MDRO Source:: Abdomen Past Surgical History: Bowel Resection, Heart Catheterization With Stent, Hernia Repair Additional Past Surgical History / Comment(s): Colonoscopies, heart stents x 4, bowel resection with colostomy and colostomy reversal (removed a foot of pts colon)-2003, hernia repair with skin grafts and 2 fistula repairs (hospitalized for 1 year @[facility])-2010 MRSA 2015 in wounds. Past Anesthesia/Blood Transfusion Reactions: No Reported Reaction Additional Past Anesthesia/Blood Transfusion Reaction / Comment(s): Pt has received blood in past without reaction-2010 Date of Last Stent Placement:: 03/28/2015 Past Psychological History: Depression Additional Psychological History / Comment(s): PT IS DISABLED. PT LIVES WITH MOTHER AND 2 PET CATS AND 1 DOG. HOME HAS A RAMP. USES A CANE CURRENTLY-. NO OUTSIDE SERVICES RECIEVED. Smoking Status: Former smoker Past Alcohol Use History: None Reported Additional Past Alcohol Use History / Comment(s): STARTED SMOKING AGE 26, (1995) AND QUIT IN 2008. HE THEN RESUMED SMOKING IN 2015. PATIENT QUIT THIS YEAR IN NOVEMBER AND NOW SMOKES ONE TO twO CIGARETTES A DAY. Past Drug Use History: None Reported - Past Family History Mother Family Medical History: Osteoarthritis (OA), Pneumonia Additional Family Medical History / Comment(s): osteoporosis. arthroscopy surgery for knee Father Family Medical History: Liver Disease, Renal Disease Additional Family Medical History / Comment(s): triple heart bypass. liver transplant. aortic aneursym Medications and Allergies Home Medications Medication Instructions Recorded Confirmed Type Loratadine [Claritin] 10 mg PO DAILY 10/19/13 10/23/18 History Sertraline [Zoloft] 100 mg PO HS 10/19/13 10/23/18 History Nitroglycerin Sl Tabs [Nitrostat] 0.4 mg SUBLINGUAL Q5M PRN #30 tab 12/03/14 10/23/18 Rx Atorvastatin [Lipitor] 80 mg PO HS 03/25/15 10/23/18 History Folic Acid 1 mg PO BID 03/25/15 10/23/18 History Levothyroxine Sodium [Synthroid] 137 mcg PO QAM 03/25/15 10/23/18 History Budesonide/Formoterol Fumarate 2 puff INHALATION RT-BID 08/01/16 10/23/18 History [Symbicort 160-4.5 Mcg Inhaler] Allopurinol [Zyloprim] 100 mg PO DAILY 12/17/17 10/23/18 History Ergocalciferol (Vitamin D2) 50,000 unit PO MO 05/05/18 10/23/18 History [Drisdol] Ferrous Sulfate [Iron (65 MG 325 mg PO BID 05/05/18 10/23/18 History Elemental)] traMADol HCL [Ultram] 50 mg PO BID PRN 05/05/18 10/23/18 History Calcium Carbonate [Tums] 1,000 mg PO TID PRN chew 05/08/18 10/23/18 Rx Apixaban [Eliquis] 5 mg PO BID tab 06/03/18 10/23/18 Rx Diltiazem Oral [Cardizem*] 60 mg PO BID #60 tab 06/03/18 10/23/18 Rx Albuterol Inhaler [Ventolin Hfa 1 - 2 puff INHALATION RT-QID PRN 09/17/18 10/23/18 History Inhaler] Albuterol Nebulized [Ventolin 2.5 mg INHALATION RT-QID PRN 09/17/18 10/23/18 History Nebulized] Metolazone [Zaroxolyn] 2.5 mg PO MOFR 09/17/18 10/23/18 History Metoprolol Tartrate [Lopressor] 100 mg PO BID 09/17/18 10/23/18 History Docusate [Colace] 100 mg PO BID PRN #30 cap 09/22/18 10/23/18 Rx Furosemide [Lasix] 40 mg PO BID@0900,1600 #60 tab 09/22/18 10/23/18 Rx Potassium Chloride ER [K-Dur 20] 40 meq PO DAILY 3 Days #6 09/22/18 10/23/18 Rx tab.er.prt Spironolactone [Aldactone] 25 mg PO DAILY #30 tab 09/22/18 10/23/18 Rx Allergies Allergy/AdvReac Type Severity Reaction Status Date / Time adhesive Allergy "PLASTIC Verified 10/23/18 18:14 TAPE PEELS SKIN,PAPER TAPE IS OK" linezolid Allergy Unknown Verified 10/23/18 18:14 penicillin G Allergy Rash/Hives Verified 10/23/18 18:14 Cephalosporins AdvReac FEVER Verified 10/23/18 18:14 Physical Exam Vitals: Vital Signs Temp Pulse Resp BP BP Pulse Ox 10/24/18 12:00 98.5 F 90 18 91/63 92 L 10/24/18 11:19 92 10/24/18 11:07 94 10/24/18 11:00 96 20 97/64 92 L 10/24/18 10:00 105 H 17 113/68 92 L 10/24/18 08:00 98.1 F 93 16 95/62 92 L 10/24/18 07:25 106 H 10/24/18 07:11 109 H 93 L 10/24/18 04:00 97.8 F 91 22 112/71 92 L 10/24/18 03:17 95 10/24/18 03:08 96 10/24/18 03:00 92 23 97/68 90 L 10/24/18 02:00 87 22 103/60 93 L 10/24/18 01:00 95 15 109/78 95 10/24/18 00:00 98.0 F 93 19 93/70 91 L 10/23/18 23:00 95 19 99/72 90 L 10/23/18 22:00 97 36 H 108/75 89 L 10/23/18 21:00 102 H 23 93/60 88 L 10/23/18 20:03 90 29 H 92 L 10/23/18 19:38 98.1 F 99/72 94 L 10/23/18 19:27 97.9 F 98 20 119/79 98 10/23/18 17:47 98.4 F 92 18 127/72 92 L Intake and Output 10/23/18 10/24/18 10/24/18 22:59 06:59 14:59 Intake Total 1440 Output Total 500 450 900 Balance -500 -450 540 Intake: Oral 1440 Output: Urine 500 450 900 Other: Voiding Method Urinal Weight 175.54 kg 175.6 kg 175.6 kg PHYSICAL EXAMINATION: GENERAL: The patient is alert and oriented x3, not in any acute distress. morbidly obese HEENT: Pupils are round and equally reacting to light. EOMI. No scleral icterus. No conjunctival pallor. Normocephalic, atraumatic. No pharyngeal erythema. No t hyromegaly. CARDIOVASCULAR: S1 and S2 present. No murmurs, rubs, or gallops. I cannot appreciate JVD PULMONARY: decreased air entry into bilateral lung [place] ABDOMEN: Soft, nontender, nondistended, normoactive bowel sounds. No palpable organomegaly. MUSCULOSKELETAL: No joint swelling or deformity. EXTREMITIES: No cyanosis, clubbing, mild pedal edema with chronic venous stasis and chronic venous stasis dermatosis NEUROLOGICAL: Gross neurological examination did not reveal any focal deficits. SKIN: No rashes. Results CBC & Chem 7: 10/24/18 04:18 10/24/18 04:18 Labs: Abnormal Lab Results - Last 24 Hours (Table) 10/23/18 10/23/18 10/23/18 Range/Units 17:40 17:40 17:40 RDW 16.7 H (11.5-15.5) % Plt Count 148 L (150-450) k/uL Lymphocytes # (1.0-4.8) k/uL APTT 36.6 H (22.0-30.0) sec Sodium (137-145) mmol/L BUN 25 H (9-20) mg/dL Creatinine 1.55 H (0.66-1.25) mg/dL Glucose 242 H (74-99) mg/dL POC Glucose (mg/dL) (75-99) mg/dL Hemoglobin A1c (4.0-6.0) % Total Bilirubin 1.6 H (0.2-1.3) mg/dL Creatine Kinase 44 L (55-170) U/L 10/23/18 10/23/18 10/24/18 Range/Units 19:58 23:01 02:00 RDW (11.5-15.5) % Plt Count (150-450) k/uL Lymphocytes # (1.0-4.8) k/uL APTT (22.0-30.0) sec Sodium (137-145) mmol/L BUN (9-20) mg/dL Creatinine (0.66-1.25) mg/dL Glucose (74-99) mg/dL POC Glucose (mg/dL) 301 H 371 H 312 H (75-99) mg/dL Hemoglobin A1c (4.0-6.0) % Total Bilirubin (0.2-1.3) mg/dL Creatine Kinase (55-170) U/L 10/24/18 10/24/18 10/24/18 Range/Units 04:18 04:18 04:18 RDW 17.5 H (11.5-15.5) % Plt Count 140 L (150-450) k/uL Lymphocytes # 0.6 L (1.0-4.8) k/uL APTT (22.0-30.0) sec Sodium 134 L (137-145) mmol/L BUN 31 H (9-20) mg/dL Creatinine 1.66 H (0.66-1.25) mg/dL Glucose 298 H (74-99) mg/dL POC Glucose (mg/dL) (75-99) mg/dL Hemoglobin A1c 9.6 H (4.0-6.0) % Total Bilirubin (0.2-1.3) mg/dL Creatine Kinase (55-170) U/L 10/24/18 Range/Units 11:45 RDW (11.5-15.5) % Plt Count (150-450) k/uL Lymphocytes # (1.0-4.8) k/uL APTT (22.0-30.0) sec Sodium (137-145) mmol/L BUN (9-20) mg/dL Creatinine (0.66-1.25) mg/dL Glucose (74-99) mg/dL POC Glucose (mg/dL) 354 H (75-99) mg/dL Hemoglobin A1c (4.0-6.0) % Total Bilirubin (0.2-1.3) mg/dL Creatine Kinase (55-170) U/L Thrombosis Risk Factor Assmnt - Choose All That Apply Each Factor Represents 1 point: Abnormal pulmonary function (COPD), Age 41-60 years, Swollen legs (current) Thrombosis Risk Factor Assessment Total Risk Factor Score: 3 Thrombosis Risk Factor Assessment Level: Moderate Risk Assessment and Plan Plan: shortness of breath: He appears to be multifactorial mostly to 2 chronic diastolic dysfunction with acute exacerbation we'll continue with Lasix with close monitoring of kidney function. Patient has significant restrictive lung disease with the sleep obstructive sleep apnea and COPD although not in note COPD exacerbation R use inhaled steroids and inhalational treatments will avoid systemic steroids. 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
[2018-10-24 17:05] LABS: Glucose,Whole Blood 389 mg/dL (75-99)
[2018-10-24] MEDS: ASPIRIN 325 MG TAB PO SCH (18:20)
[2018-10-24 21:01] LABS: Glucose,Whole Blood 328 mg/dL (75-99)
[2018-10-24] MEDS: BUDESONIDE 0.5 MG/2 ML NEBU INHALATION SCH (21:15)
[2018-10-24] MEDS: ATORVASTATIN 80 MG TAB PO SCH (21:36)
[2018-10-24] MEDS: CALCIUM CARBONATE 500 MG CHEWABLE PO PRN (22:44)
[2018-10-25] MEDS: FUROSEMIDE 10 MG/ML 4 ML VIAL IV SCH ×2 (01:32→08:22)
[2018-10-25] MEDS: ALBUTEROL NEBULIZED 2.5 MG/3 ML INHALATION PRN ×2 (04:17→23:46)
[2018-10-25] MEDS: traMADol 50 MG TAB PO PRN (04:26)
[2018-10-25] MEDS ORDERED: methylPREDNISolone SOD SUCCI 125 MG/2 ML VIAL IV SCH (06:00)
[2018-10-25] MEDS: LEVOTHYROXINE 137 MCG TAB PO SCH (06:17)
[2018-10-25] MEDS: INSULIN ASPART (NovoLOG) 100 UNIT/ML VIAL SQ SCH ×5 (06:21→19:54)
[2018-10-25 06:34] LABS: Glucose,Whole Blood 224 mg/dL (75-99)
[2018-10-25 06:44] LABS: Calcium 9.5 mg/dL (8.4-10.2); Magnesium 1.7 mg/dL (1.6-2.3); Potassium 3.8 mmol/L (3.5-5.1)
[2018-10-25 06:53] LABS: Anisocytosis Slight; HCT 40.9 % (39.0-53.0); HGB 13.4 gm/dL (13.0-17.5); MCH 28.7 pg (25.0-35.0); MCHC 32.8 g/dL (31.0-37.0); MCV 87.6 fL (80.0-100.0); Mean Platelet Volume 7.9; Platelet Count 161 k/uL (150-450); Poikilocytosis Slight; RBC 4.67 m/uL (4.30-5.90); RDW 16.8 % (11.5-15.5); WBC 9.3 k/uL (3.8-10.6)
[2018-10-25] MEDS: BUDESONIDE 0.5 MG/2 ML NEBU INHALATION SCH ×2 (07:16→20:47)
[2018-10-25] MEDS: IPRATROPIUM-ALBUTEROL 3 ML NEB INHALATION SCH ×4 (07:16→20:48)
[2018-10-25] MEDS: METOPROLOL TARTRATE 50 MG TAB PO SCH ×2 (08:20→19:59)
[2018-10-25] MEDS: POTASSIUM CHLORIDE ER 20 MEQ TAB.ER PO SCH (08:20)
[2018-10-25] MEDS: DILTIAZEM ORAL 60 MG TAB PO SCH ×4 (08:20→19:59)
[2018-10-25] MEDS: APIXABAN 5 MG TAB PO SCH ×2 (08:20→20:00)
[2018-10-25] MEDS: ALLOPURINOL 100 MG TAB PO SCH (08:20)
[2018-10-25] MEDS: SPIRONOLACTONE 25 MG TAB PO SCH (08:20)
[2018-10-25] MEDS: LORATADINE 10 MG TAB PO SCH (08:20)
[2018-10-25] MEDS: FERROUS SULFATE 325 MG TAB PO SCH ×2 (08:20→20:00)
[2018-10-25] MEDS: ASPIRIN 325 MG TAB PO SCH (08:20)
[2018-10-25] MEDS: FOLIC ACID 1 MG TAB PO SCH ×2 (08:21→20:00)
--- NOTE | 2018-10-25 10:20 | P.PN ---
Subjective 48-year-old male was admitted seconded shortness of breath which improved now patient has multifactorial shortness of breath along with chronic diastolic dysfunction patient is on IV Lasix which will be switched to oral patient the is going towards volume depleted side and creatinine has worsened a bit. Baseline is around 1.2 now around 1.7. Patient was started on systemic steroids last night which I do not believe is necessary patient's IV steroids will be discontinued patient is is a newly diagnosed diabetic blood sugars are elevated patient will be started on Levemir tonight. His blood sugars are expected to be elevated for next 24 hours or so as he received systemic steroids. Constitutional: Denied any fatigue denied any fever. Cardio vascular: denied any chest pain, palpitations Gastrointestinal denied any nausea vomiting Pulmonary: As mentioned in HPI Neurologic denied any new focal deficits All inpatient medications were reviewed and appropriate changes in these medications as dictated in the interval history and assessment and plan. Objective - Vital Signs Vital signs: Vital Signs Temp 98.9 F 10/25/18 08:00 Pulse 121 H 10/25/18 08:00 Resp 16 10/25/18 08:00 BP 115/66 10/25/18 08:00 Pulse Ox 93 L 10/25/18 08:00 Intake & Output 10/24/18 10/25/18 10/25/18 18:59 06:59 18:59 Intake Total 1680 387 Output Total 1750 4375 350 Balance -70 -3988 -350 Weight 175.6 kg 163 kg Intake: Oral 1680 387 Output: Urine 1750 4375 350 Other: Voiding Method Urinal Urinal # Voids 2 1 - Exam PHYSICAL EXAMINATION: GENERAL: The patient is alert and oriented x3, not in any acute distress. morbidly obese HEENT: Pupils are round and equally reacting to light. EOMI. No scleral icterus. No conjunctival pallor. Normocephalic, atraumatic. No pharyngeal erythema. No thyromegaly. CARDIOVASCULAR: S1 and S2 present. No murmurs, rubs, or gallops. I cannot appreciate JVD PULMONARY: decreased air entry into bilateral lung [place] ABDOMEN: Soft, nontender, nondistended, normoactive bowel sounds. No palpable organomegaly. MUSCULOSKELETAL: No joint swelling or deformity. EXTREMITIES: No cyanosis, clubbing, mild pedal edema with chronic venous stasis and chronic venous stasis dermatosis NEUROLOGICAL: Gross neurological examination did not reveal any focal deficits. SKIN: No rashes. - Labs CBC & Chem 7: 10/25/18 06:05 10/25/18 06:05 Labs: Abnormal Lab Results - Last 24 Hours (Table) 10/24/18 10/24/18 10/24/18 Range/Units 04:18 11:45 17:02 RDW (11.5-15.5) % Sodium (137-145) mmol/L Chloride (98-107) mmol/L Carbon Dioxide (22-30) mmol/L BUN (9-20) mg/dL Creatinine (0.66-1.25) mg/dL Glucose (74-99) mg/dL POC Glucose (mg/dL) 354 H 389 H (75-99) mg/dL Hemoglobin A1c 9.6 H (4.0-6.0) % 10/24/18 10/25/18 10/25/18 Range/Units 20:54 06:05 06:05 RDW 16.8 H (11.5-15.5) % Sodium 136 L (137-145) mmol/L Chloride 94 L (98-107) mmol/L Carbon Dioxide 31 H (22-30) mmol/L BUN 44 H (9-20) mg/dL Creatinine 1.73 H (0.66-1.25) mg/dL Glucose 209 H (74-99) mg/dL POC Glucose (mg/dL) 328 H (75-99) mg/dL Hemoglobin A1c (4.0-6.0) % 10/25/18 Range/Units 06:19 RDW (11.5-15.5) % Sodium (137-145) mmol/L Chloride (98-107) mmol/L Carbon Dioxide (22-30) mmol/L BUN (9-20) mg/dL Creatinine (0.66-1.25) mg/dL Glucose (74-99) mg/dL POC Glucose (mg/dL) 224 H (75-99) mg/dL Hemoglobin A1c (4.0-6.0) % Assessment and Plan Plan: shortness of breath: He appears to be multifactorial mostly to 2 chronic diastolic dysfunction with acute exacerbation, patient was switched to oral Lasix creatinine is bit worse and patient remains tachycardic. Patient has significant restrictive lung disease with the sleep obstructive sleep apnea and COPD although not in note COPD exacerbation R use inhaled steroids and inhalational treatments will avoid systemic steroids. 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
--- NOTE | 2018-10-25 11:04 | P.PN ---
Subjective Progress Note Date: 10/25/18 Principal diagnosis: Chronic atrial fibrillation This is another admission for this 48-year-old gentleman with a past medical history significant for severe triple-vessel coronary artery disease, prior coronary revascularization, chronic atrial fibrillation, chronic diastolic co ngestive heart failure, chronic kidney disease, morbid obesity, hypertension, and dyslipidemia. He just was discharged from the hospital a few weeks ago with acute exacerbation of congestive heart failure secondary to diastole dysfunction. This time he presented to the hospital complaining of progressive exertional dyspnea as well as bilateral lower extremities edema. He states clearly that he gained about 10 pounds within few days. No symptoms of chest pain or chest discomfort. He did develop severe bilateral lower extremities edema according to him and edema has improved overnight. The chest x-ray showed findings consistent with CHF and fluid overload. The BMP was checked and came i n to be around 6000. The EKG showed atrial fibrillation without significant for ischemic ST or T-wave abnormalities. The troponin was checked and came in to be within normal limits. The patient was initiated on Lasix IV at this point. He is known to have chronic kidney disease. He states clearly that he was compliant with all of his medications and also he was compliant with his diet. Please note that the patient does have history of coronary artery disease and he underwent stenting of the left circumflex, stenting of the LAD as well as, and also known chronic total occlusion of the right coronary artery. During his last admission, he underwent an echocardiogram and that revealed normal LV function was moderate mitral regurgitation. Also the right side of the heart was enlarged by the echo. On follow-up with the patient today, 10/25/2018, he stated that he is feeling better indeterminable shortness of breath. He continues to be in atrial fibrillation with slightly uncontrolled heart rate. I'm going to increase the dose of Cardizem to 90 mg 4 times a day. Continue oral anticoagulation. Continue following up with the patient. Objective - Vital Signs Vital signs: Vital Signs Temp 98.9 F 10/25/18 08:00 Pulse 121 H 10/25/18 08:00 Resp 16 10/25/18 08:00 BP 115/66 10/25/18 08:00 Pulse Ox 93 L 10/25/18 08:00 Intake & Output 10/24/18 10/25/18 10/25/18 18:59 06:59 18:59 Intake Total 1680 387 Output Total 1750 4375 350 Balance -70 -5130 -350 Weight 175.6 kg 163 kg Intake: Oral 1680 387 Output: Urine 1750 4375 350 Other: Voiding Method Urinal Urinal # Voids 2 1 - Constitutional General appearance: Present: no acute distress - Respiratory Respiratory: bilateral: diminished - Cardiovascular Rhythm: irregularly irregular - Labs CBC & Chem 7: 10/25/18 06:05 10/25/18 06:05 Labs: Abnormal Lab Results - Last 24 Hours (Table) 10/24/18 10/24/18 10/24/18 Range/Units 04:18 11:45 17:02 RDW (11.5-15.5) % Sodium (137-145) mmol/L Chloride (98-107) mmol/L Carbon Dioxide (22-30) mmol/L BUN (9-20) mg/dL Creatinine (0.66-1.25) mg/dL Glucose (74-99) mg/dL POC Glucose (mg/dL) 354 H 389 H (75-99) mg/dL Hemoglobin A1c 9.6 H (4.0-6.0) % 10/24/18 10/25/18 10/25/18 Range/Units 20:54 06:05 06:05 RDW 16.8 H (11.5-15.5) % Sodium 136 L (137-145) mmol/L Chloride 94 L (98-107) mmol/L Carbon Dioxide 31 H (22-30) mmol/L BUN 44 H (9-20) mg/dL Creatinine 1.73 H (0.66-1.25) mg/dL Glucose 209 H (74-99) mg/dL POC Glucose (mg/dL) 328 H (75-99) mg/dL Hemoglobin A1c (4.0-6.0) % 10/25/18 Range/Units 06:19 RDW (11.5-15.5) % Sodium (137-145) mmol/L Chloride (98-107) mmol/L Carbon Dioxide (22-30) mmol/L BUN (9-20) mg/dL Creatinine (0.66-1.25) mg/dL Glucose (74-99) mg/dL POC Glucose (mg/dL) 224 H (75-99) mg/dL Hemoglobin A1c (4.0-6.0) % Assessment and Plan Assessment: Assessment #1 congestive heart failure exacerbation secondary to diastole dysfunction, acute on chronic #2 chronic atrial fibrillation with controlled heart rate #3 severe triple-vessel coronary artery disease and prior coronary revascularization #4 multiple comorbid conditions including hypertension, dyslipidemia, and obesity. Plan #1 increase the dose of Cardizem #2 continue oral Lasix #3 possible discharge in the next 24 hours Thank you for allowing us participate in his care and we'll continue following up with the patient
[2018-10-25 12:20] LABS: Glucose,Whole Blood 501 mg/dL (75-99)
[2018-10-25 12:20] LABS: Glucose,Whole Blood 473 mg/dL (75-99)
[2018-10-25] MEDS ORDERED: DILTIAZEM ORAL 60 MG TAB PO SCH (16:00)
[2018-10-25 17:35] LABS: Glucose,Whole Blood 466 mg/dL (75-99)
[2018-10-25] MEDS ORDERED: INSULIN REGULAR BOLUS (FROM DRIP BAG) IV ONE (17:35)
[2018-10-25] MEDS ORDERED: INSULIN REGULAR 100 UNIT in SODIUM CHLORIDE 0.9% 100 ML IV SCH (17:45)
[2018-10-25] MEDS: FUROSEMIDE 20 MG TAB PO SCH (17:45)
[2018-10-25 18:33] LABS: Glucose,Whole Blood 465 mg/dL (75-99)
[2018-10-25 19:02] LABS: Glucose,Whole Blood 460 mg/dL (75-99)
[2018-10-25 19:25] LABS: Glucose,Whole Blood 442 mg/dL (75-99)
[2018-10-25] MEDS: ATORVASTATIN 80 MG TAB PO SCH (19:59)
[2018-10-25] MEDS: SERTRALINE 100 MG TAB PO SCH (20:00)
[2018-10-25 20:14] LABS: Glucose,Whole Blood 374 mg/dL (75-99)
[2018-10-25 20:20] LABS: Glucose,Whole Blood 293 mg/dL (75-99)
[2018-10-25] MEDS ORDERED: INSULIN DETEMIR (LEVEMIR) 100 UNIT/ML SYR SQ SCH (21:00)
[2018-10-25 21:17] LABS: Glucose,Whole Blood 216 mg/dL (75-99)
[2018-10-25 22:43] LABS: Glucose,Whole Blood 170 mg/dL (75-99)
[2018-10-26] MEDS ORDERED: HYDROcodone/APAP 5-325MG 1 EACH TAB PO PRN (00:22)
[2018-10-26] MEDS: PANTOPRAZOLE 40 MG/10 ML VIAL IVP SCH ×2 (01:07→08:40)
[2018-10-26] MEDS: LEVOTHYROXINE 137 MCG TAB PO SCH (06:19)
[2018-10-26 06:20] LABS: Anisocytosis Slight; HCT 42.5 % (39.0-53.0); HGB 13.8 gm/dL (13.0-17.5); MCH 28.8 pg (25.0-35.0); MCHC 32.5 g/dL (31.0-37.0); MCV 88.7 fL (80.0-100.0); Mean Platelet Volume 8.1; Platelet Count 188 k/uL (150-450); Poikilocytosis Slight; RDW 17.4 % (11.5-15.5); WBC 12.7 k/uL (3.8-10.6)
[2018-10-26 06:34] LABS: Calcium 10.1 mg/dL (8.4-10.2); Potassium 4.2 mmol/L (3.5-5.1)
[2018-10-26 06:39] LABS: Glucose,Whole Blood 206 mg/dL (75-99)
[2018-10-26] MEDS: INSULIN ASPART (NovoLOG) 100 UNIT/ML VIAL SQ SCH ×7 (06:46→21:43)
[2018-10-26] MEDS: traMADol 50 MG TAB PO PRN (06:47)
[2018-10-26] MEDS ORDERED: INSULIN ASPART (NovoLOG) 100 UNIT/ML VIAL SQ SCH (07:30)
[2018-10-26] MEDS: IPRATROPIUM-ALBUTEROL 3 ML NEB INHALATION SCH ×4 (08:17→21:09)
[2018-10-26] MEDS: BUDESONIDE 0.5 MG/2 ML NEBU INHALATION SCH ×2 (08:17→21:09)
[2018-10-26] MEDS: POTASSIUM CHLORIDE ER 20 MEQ TAB.ER PO SCH (08:39)
[2018-10-26] MEDS: LORATADINE 10 MG TAB PO SCH (08:39)
[2018-10-26] MEDS: FERROUS SULFATE 325 MG TAB PO SCH ×2 (08:39→19:51)
[2018-10-26] MEDS: DILTIAZEM ORAL 60 MG TAB PO SCH ×4 (08:39→21:42)
[2018-10-26] MEDS: FUROSEMIDE 20 MG TAB PO SCH (08:39)
[2018-10-26] MEDS: ALLOPURINOL 100 MG TAB PO SCH (08:40)
[2018-10-26] MEDS: ASPIRIN 325 MG TAB PO SCH (08:40)
[2018-10-26] MEDS: FOLIC ACID 1 MG TAB PO SCH ×2 (08:40→19:51)
[2018-10-26] MEDS: METOPROLOL TARTRATE 50 MG TAB PO SCH ×2 (08:40→19:51)
[2018-10-26] MEDS: APIXABAN 5 MG TAB PO SCH (08:40)
[2018-10-26] MEDS: SPIRONOLACTONE 25 MG TAB PO SCH (08:41)
[2018-10-26 09:16] LABS: Glucose,Whole Blood 210 mg/dL (75-99)
--- NOTE | 2018-10-26 10:37 | P.PN ---
Subjective 48-year-old male was admitted seconded shortness of breath which improved now patient has multifactorial shortness of breath along with chronic diastolic dysfunction patient is on IV Lasix which will be switched to oral patient the is going towards volume depleted side and creatinine has worsened a bit. Baseline is around 1.2 now around 1.7. Patient was started on systemic steroids last night which I do not believe is necessary patient's IV steroids will be discontinued patient is is a newly diagnosed diabetic blood sugars are elevated patient will be started on Levemir tonight. His blood sugars are expected to be elevated for next 24 hours or so as he received systemic steroids. 10/26/2018 His creatinine continued to get worse shortness of breath actually better we'll cut down on 0-2 L family deny hallways today. We will also consult the nephrology worsening of creatinine is secondary to excessive diuretic therapy. Patient blood sugars are fairly controlled today. Patient will need to be discharged on long-acting insulin. Constitutional: Denied any fatigue denied any fever. Cardio vascular: denied any chest pain, palpitations Gastrointestinal denied any nausea vomiting Pulmonary: As mentioned in HPI Neurologic denied any new focal deficits All inpatient medications were reviewed and appropriate changes in these medi cations as dictated in the interval history and assessment and plan. Objective - Vital Signs Vital signs: Vital Signs Temp 97.1 F L 10/26/18 04:00 Pulse 79 10/26/18 04:00 Resp 20 10/26/18 04:00 BP 103/65 10/26/18 04:00 Pulse Ox 96 10/26/18 04:00 Intake & Output 10/25/18 10/26/18 10/26/18 18:59 06:59 18:59 Intake Total 440 80 Output Total 1400 985 450 Balance -960 -905 -450 Weight 169.5 kg Intake: Oral 440 80 Output: Urine 1400 985 450 Other: Voiding Method Urinal Urinal # Voids 1 1 1 - Exam PHYSICAL EXAMINATION: GENERAL: The patient is alert and oriented x3, not in any acute distress. morbidly obese HEENT: Pupils are round and equally reacting to light. EOMI. No scleral icterus. No conjunctival pallor. Normocephalic, atraumatic. No pharyngeal erythema. No thyromegaly. CARDIOVASCULAR: S1 and S2 present. No murmurs, rubs, or gallops. I cannot appreciate JVD PULMONARY: decreased air entry into bilateral lung [place] ABDOMEN: Soft, nontender, nondistended, normoactive bowel sounds. No palpable organomegaly. MUSCULOSKELETAL: No joint swelling or deformity. EXTREMITIES: No cyanosis, clubbing, mild pedal edema with chronic venous stasis and chronic venous stasis dermatosis NEUROLOGICAL: Gross neurological examination did not reveal any focal deficits. SKIN: No rashes. - Labs CBC & Chem 7: 10/26/18 05:44 10/26/18 05:44 Labs: Abnormal Lab Results - Last 24 Hours (Table) 10/25/18 10/25/18 10/25/18 Range/Units 12:09 12:11 17:12 WBC (3.8-10.6) k/uL RDW (11.5-15.5) % Chloride (98-107) mmol/L Carbon Dioxide (22-30) mmol/L BUN (9-20) mg/dL Creatinine (0.66-1.25) mg/dL Glucose (74-99) mg/dL POC Glucose (mg/dL) 501 H 473 H 466 H (75-99) mg/dL 10/25/18 10/25/18 10/25/18 Range/Units 18:13 18:42 19:14 WBC (3.8-10.6) k/uL RDW (11.5-15.5) % Chloride (98-107) mmol/L Carbon Dioxide (22-30) mmol/L BUN (9-20) mg/dL Creatinine (0.66-1.25) mg/dL Glucose (74-99) mg/dL POC Glucose (mg/dL) 465 H 460 H 442 H (75-99) mg/dL 10/25/18 10/25/18 10/25/18 Range/Units 19:46 20:17 20:58 WBC (3.8-10.6) k/uL RDW (11.5-15.5) % Chloride (98-107) mmol/L Carbon Dioxide (22-30) mmol/L BUN (9-20) mg/dL Creatinine (0.66-1.25) mg/dL Glucose (74-99) mg/dL POC Glucose (mg/dL) 374 H 293 H 216 H (75-99) mg/dL 10/25/18 10/26/18 10/26/18 Range/Units 22:26 05:44 05:44 WBC 12.7 H (3.8-10.6) k/uL RDW 17.4 H (11.5-15.5) % Chloride 93 L (98-107) mmol/L Carbon Dioxide 36 H (22-30) mmol/L BUN 58 H (9-20) mg/dL Creatinine 2.18 H (0.66-1.25) mg/dL Glucose 227 H (74-99) mg/dL POC Glucose (mg/dL) 170 H (75-99) mg/dL 10/26/18 10/26/18 Range/Units 06:37 09:13 WBC (3.8-10.6) k/uL RDW (11.5-15.5) % Chloride (98-107) mmol/L Carbon Dioxide (22-30) mmol/L BUN (9-20) mg/dL Creatinine (0.66-1.25) mg/dL Glucose (74-99) mg/dL POC Glucose (mg/dL) 206 H 210 H (75-99) mg/dL Assessment and Plan Plan: shortness of breath: He appears to be multifactorial mostly to 2 chronic diastolic dysfunction with acute exacerbation, patient was switched to oral Lasix creatinine is bit worse and patient remains tachycardic. Patient has significant restrictive lung disease with the sleep obstructive sleep apnea and COPD although not in note COPD exacerbation R use inhaled steroids and inhalational treatments will avoid systemic steroids. -COPD with possible mild acute exacerbation, better now. -Morbid obesity restrictive lung disease and sleep apnea -Coronary artery disease -Atrial fibrillation with rapid ventricular rate, patient's oral Cardizem dose was increased discussed with the cardiology and patient will remain on anticoagulation -acute renal failure: Prerenal azotemia, kidney function continued to get worse because of the diuretic therapy which will be held today -chronic kidney disease stage II to 3 probably secondary to diabetic nephropathy -Type 2 diabetes mellitus patient was never diagnosed with diabetes mellitus in the past his hemoglobin A1c is 9 patient was started on long-acting insulin -coronary artery disease stents -Hypothyroidism -Hyperlipidemia -Hypertension
--- NOTE | 2018-10-26 10:56 | P.PN ---
Subjective Progress Note Date: 10/26/18 Principal diagnosis: Chronic atrial fibrillation This is another admission for this 48-year-old gentleman with a past medical history significant for severe triple-vessel coronary artery disease, prior coronary revascularization, chronic atrial fibrillation, chronic diastolic co ngestive heart failure, chronic kidney disease, morbid obesity, hypertension, and dyslipidemia. He just was discharged from the hospital a few weeks ago with acute exacerbation of congestive heart failure secondary to diastole dysfunction. This time he presented to the hospital complaining of progressive exertional dyspnea as well as bilateral lower extremities edema. He states clearly that he gained about 10 pounds within few days. No symptoms of chest pain or chest discomfort. He did develop severe bilateral lower extremities edema according to him and edema has improved overnight. The chest x-ray showed findings consistent with CHF and fluid overload. The BMP was checked and came i n to be around 6000. The EKG showed atrial fibrillation without significant for ischemic ST or T-wave abnormalities. The troponin was checked and came in to be within normal limits. The patient was initiated on Lasix IV at this point. He is known to have chronic kidney disease. He states clearly that he was compliant with all of his medications and also he was compliant with his diet. Please note that the patient does have history of coronary artery disease and he underwent stenting of the left circumflex, stenting of the LAD as well as, and also known chronic total occlusion of the right coronary artery. During his last admission, he underwent an echocardiogram and that revealed normal LV function was moderate mitral regurgitation. Also the right side of the heart was enlarged by the echo. On follow-up with the patient today, 10/26/2018, he stated that he is feeling better in terms of shortness of breath. Continues not to have any chest pain or chest discomfort. Yesterday I did increase the dose of Cardizem for better heart rate control and today his heart rate seems to be better. The blood pressure is marginally low. The creatinine is worse. Lasix is on hold at this point. Objective - Vital Signs Vital signs: Vital Signs Temp 97.1 F L 10/26/18 04:00 Pulse 79 10/26/18 04:00 Resp 20 10/26/18 04:00 BP 103/65 10/26/18 04:00 Pulse Ox 96 10/26/18 04:00 Intake & Output 10/25/18 10/26/18 10/26/18 18:59 06:59 18:59 Intake Total 440 80 Output Total 1400 985 450 Balance -093 -383 -580 Weight 169.5 kg Intake: Oral 440 80 Output: Urine 1400 985 450 Other: Voiding Method Urinal Urinal # Voids 1 1 1 - Constitutional General appearance: Present: no acute distress - Respiratory Respiratory: bilateral: diminished - Cardiovascular Rhythm: irregularly irregular Heart sounds: normal: S1, S2 - Labs CBC & Chem 7: 10/26/18 05:44 10/26/18 05:44 Labs: Abnormal Lab Results - Last 24 Hours (Table) 10/25/18 10/25/18 10/25/18 Range/Units 12:09 12:11 17:12 WBC (3.8-10.6) k/uL RDW (11.5-15.5) % Chloride (98-107) mmol/L Carbon Dioxide (22-30) mmol/L BUN (9-20) mg/dL Creatinine (0.66-1.25) mg/dL Glucose (74-99) mg/dL POC Glucose (mg/dL) 501 H 473 H 466 H (75-99) mg/dL 10/25/18 10/25/18 10/25/18 Range/Units 18:13 18:42 19:14 WBC (3.8-10.6) k/uL RDW (11.5-15.5) % Chloride (98-107) mmol/L Carbon Dioxide (22-30) mmol/L BUN (9-20) mg/dL Creatinine (0.66-1.25) mg/dL Glucose (74-99) mg/dL POC Glucose (mg/dL) 465 H 460 H 442 H (75-99) mg/dL 10/25/18 10/25/18 10/25/18 Range/Units 19:46 20:17 20:58 WBC (3.8-10.6) k/uL RDW (11.5-15.5) % Chloride (98-107) mmol/L Carbon Dioxide (22-30) mmol/L BUN (9-20) mg/dL Creatinine (0.66-1.25) mg/dL Glucose (74-99) mg/dL POC Glucose (mg/dL) 374 H 293 H 216 H (75-99) mg/dL 10/25/18 10/26/18 10/26/18 Range/Units 22:26 05:44 05:44 WBC 12.7 H (3.8-10.6) k/uL RDW 17.4 H (11.5-15.5) % Chloride 93 L (98-107) mmol/L Carbon Dioxide 36 H (22-30) mmol/L BUN 58 H (9-20) mg/dL Creatinine 2.18 H (0.66-1.25) mg/dL Glucose 227 H (74-99) mg/dL POC Glucose (mg/dL) 170 H (75-99) mg/dL 10/26/18 10/26/18 Range/Units 06:37 09:13 WBC (3.8-10.6) k/uL RDW (11.5-15.5) % Chloride (98-107) mmol/L Carbon Dioxide (22-30) mmol/L BUN (9-20) mg/dL Creatinine (0.66-1.25) mg/dL Glucose (74-99) mg/dL POC Glucose (mg/dL) 206 H 210 H (75-99) mg/dL Assessment and Plan Assessment: Assessment #1 congestive heart failure exacerbation secondary to diastole dysfunction, acute on chronic #2 chronic atrial fibrillation with controlled heart rate #3 severe triple-vessel coronary artery disease and prior coronary revascularization #4 acute on chronic renal failure Plan #1 continue monitor the kidney function and electrolytes #2 agree about holding the Lasix #3 follow-up with the patient
[2018-10-26 12:13] LABS: Glucose,Whole Blood 256 mg/dL (75-99)
[2018-10-26] MEDS: PANTOPRAZOLE 40 MG TABLET PO SCH (16:46)
[2018-10-26 17:05] LABS: Glucose,Whole Blood 310 mg/dL (75-99)
[2018-10-26] MEDS: APIXABAN 2.5 MG TABLET PO SCH (19:51)
[2018-10-26] MEDS: ATORVASTATIN 80 MG TAB PO SCH (19:51)
[2018-10-26 21:18] LABS: Glucose,Whole Blood 248 mg/dL (75-99)
[2018-10-26] MEDS: SERTRALINE 100 MG TAB PO SCH (21:42)
[2018-10-27] MEDS: traMADol 50 MG TAB PO PRN (00:57)
[2018-10-27 06:14] LABS: Glucose,Whole Blood 172 mg/dL (75-99)
[2018-10-27 06:33] LABS: Anisocytosis Slight; Basophils # (A) 0.1 k/uL (0-0.2); Basophils % (A) 1 %; Eosinophils # (A) 0.4 k/uL (0-0.7); Eosinophils % (A) 4 %; HGB 13.7 gm/dL (13.0-17.5); Lymphocytes # (A) 1.7 k/uL (1.0-4.8); Lymphocytes % (A) 17 %; MCH 29.3 pg (25.0-35.0); MCHC 33.4 g/dL (31.0-37.0); MCV 87.9 fL (80.0-100.0); Monocytes # (A) 0.5 k/uL (0-1.0); Monocytes % (A) 5 %; Neutrophils # (A) 6.7 k/uL (1.3-7.7); Neutrophils % (A) 71 %; Platelet Count 185 k/uL (150-450); Poikilocytosis Slight; RBC 4.67 m/uL (4.30-5.90); RDW 17.4 % (11.5-15.5); WBC 9.5 k/uL (3.8-10.6)
[2018-10-27 06:45] LABS: Calcium 9.4 mg/dL (8.4-10.2); Potassium 3.9 mmol/L (3.5-5.1)
[2018-10-27] MEDS: PANTOPRAZOLE 40 MG TABLET PO SCH ×2 (06:57→17:07)
[2018-10-27] MEDS: LEVOTHYROXINE 137 MCG TAB PO SCH (07:20)
[2018-10-27] MEDS: INSULIN ASPART (NovoLOG) 100 UNIT/ML VIAL SQ SCH ×7 (07:20→20:41)
[2018-10-27] MEDS: BUDESONIDE 0.5 MG/2 ML NEBU INHALATION SCH ×2 (07:49→19:55)
[2018-10-27] MEDS: IPRATROPIUM-ALBUTEROL 3 ML NEB INHALATION SCH ×4 (07:49→19:55)
[2018-10-27] MEDS: METOPROLOL TARTRATE 50 MG TAB PO SCH ×2 (08:46→20:26)
[2018-10-27] MEDS: FERROUS SULFATE 325 MG TAB PO SCH ×2 (08:46→20:26)
[2018-10-27] MEDS: ASPIRIN 325 MG TAB PO SCH (08:46)
[2018-10-27] MEDS: POTASSIUM CHLORIDE ER 20 MEQ TAB.ER PO SCH (08:46)
[2018-10-27] MEDS: LORATADINE 10 MG TAB PO SCH (08:47)
[2018-10-27] MEDS: FOLIC ACID 1 MG TAB PO SCH ×2 (08:47→20:26)
[2018-10-27] MEDS: APIXABAN 2.5 MG TABLET PO SCH ×2 (08:47→20:26)
[2018-10-27] MEDS: DILTIAZEM ORAL 60 MG TAB PO SCH ×4 (08:47→22:52)
[2018-10-27] MEDS: ALLOPURINOL 100 MG TAB PO SCH (08:47)
[2018-10-27] MEDS ORDERED: ERGOCALCIFEROL 50,000 UNIT CAP PO SCH (09:00)
--- NOTE | 2018-10-27 10:43 | P.PN ---
Subjective 48-year-old male was admitted seconded shortness of breath which improved now patient has multifactorial shortness of breath along with chronic diastolic dysfunction patient is on IV Lasix which will be switched to oral patient the is going towards volume depleted side and creatinine has worsened a bit. Baseline is around 1.2 now around 1.7. Patient was started on systemic steroids last night which I do not believe is necessary patient's IV steroids will be discontinued patient is is a newly diagnosed diabetic blood sugars are elevated patient will be started on Levemir tonight. His blood sugars are expected to be elevated for next 24 hours or so as he received systemic steroids. 10/26/2018 His creatinine continued to get worse shortness of breath actually better we'll cut down on 0-2 L family deny hallways today. We will also consult the nephrology worsening of creatinine is secondary to excessive diuretic therapy. Patient blood sugars are fairly controlled today. Patient will need to be discharged on long-acting insulin. 10/27/2018 patient's creatinine did improve continue to hold off diuretic therapy patient will transfer out of [facility] care possibly of discharge tomorrow. Sugars are well controlled at counseling was provided Constitutional: Denied any fatigue denied any fever. Cardio vascular: denied any chest pain, palpitations Gastrointestinal denied any nausea vomiting Pulmonary: As mentioned in HPI Neurologic denied any new focal deficits All inpatient medications were reviewed and appropriate changes in these medications as dictated in the interval history and assessment and plan. Objective - Vital Signs Vital signs: Vital Signs Temp 97.7 F 10/27/18 08:00 Pulse 85 10/27/18 08:04 Resp 20 10/27/18 08:00 BP 123/72 10/27/18 08:00 Pulse Ox 97 10/27/18 08:00 Intake & Output 10/26/18 10/27/18 10/27/18 18:59 06:59 18:59 Intake Total 700 1300 480 Output Total 2500 1800 Balance -1800 -500 480 Weight 166 kg Intake: Oral 700 1300 480 Output: Urine 2500 1800 Other: Voiding Method Urinal Urinal # Voids 1 - Exam PHYSICAL EXAMINATION: GENERAL: The patient is alert and oriented x3, not in any acute distress. morbidly obese HEENT: Pupils are round and equally reacting to light. EOMI. No scleral icterus. No conjunctival pallor. Normocephalic, atraumatic. No pharyngeal erythema. No thyromegaly. CARDIOVASCULAR: S1 and S2 present. No murmurs, rubs, or gallops. I cannot appreciate JVD PULMONARY: decreased air entry into bilateral lung [place] ABDOMEN: Soft, nontender, nondistended, normoactive bowel sounds. No palpable o rganomegaly. MUSCULOSKELETAL: No joint swelling or deformity. EXTREMITIES: No cyanosis, clubbing, mild pedal edema with chronic venous stasis and chronic venous stasis dermatosis NEUROLOGICAL: Gross neurological examination did not reveal any focal deficits. SKIN: No rashes. - Labs CBC & Chem 7: 10/27/18 05:57 10/27/18 05:57 Labs: Abnormal Lab Results - Last 24 Hours (Table) 10/26/18 10/26/18 10/26/18 Range/Units 11:49 17:03 21:11 RDW (11.5-15.5) % Chloride (98-107) mmol/L Carbon Dioxide (22-30) mmol/L BUN (9-20) mg/dL Creatinine (0.66-1.25) mg/dL Glucose (74-99) mg/dL POC Glucose (mg/dL) 256 H 310 H 248 H (75-99) mg/dL 10/27/18 10/27/18 10/27/18 Range/Units 05:57 05:57 06:10 RDW 17.4 H (11.5-15.5) % Chloride 96 L (98-107) mmol/L Carbon Dioxide 35 H (22-30) mmol/L BUN 62 H (9-20) mg/dL Creatinine 2.05 H (0.66-1.25) mg/dL Glucose 166 H (74-99) mg/dL POC Glucose (mg/dL) 172 H (75-99) mg/dL Assessment and Plan Plan: shortness of breath: He appears to be multifactorial mostly to 2 chronic diastolic dysfunction with acute exacerbation, patient was switched to oral Lasix creatinine is bit worse and patient remains tachycardic. Patient has significant restrictive lung disease with the sleep obstructive sleep apnea and COPD although not in note COPD exacerbation R use inhaled steroids and inhalational treatments will avoid systemic steroids. -COPD with possible mild acute exacerbation, better now. 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
--- NOTE | 2018-10-27 11:22 | CONS ---
CONSULTATION REASON FOR CONSULT: Renal failure. HISTORY OF PRESENT ILLNESS: Patient is a 48-year-old male with history of chronic kidney disease and NKF stage 3, secondary to nephrosclerosis and diabetic nephropathy. The patient was admitted to the hospital with complaints of shortness of breath. He is being treated for COPD exacerbation. He was also fluid overloaded and has been diuresed. Serum creatinine was 1.5 mg/dL on admission. It did go up to 2.1 yesterday. Diuretics are currently on hold. Creatinine is down to 2.0. Review of previous labs show serum creatinine 1.5 to 1.6 mg/dL in September of 2018. Patient was evaluated by Nephrology during his admission in August at which time he was admitted for fluid overload and creatinine stayed mainly around 1.5 mg/dL. At this time, patient denies any significant complaints. He feels he might be able to go home, but prefers to wait one more day. PAST MEDICAL HISTORY: COPD, morbid obesity, atrial fibrillation, asthma, history of DVT, hyperlipidemia, hypertension, coronary artery disease, hypothyroidism, obstructive sleep apnea, previous history of tracheostomy. PAST SURGICAL HISTORY: Bowel resection, cardiac catheterization, coronary stent, hernia repair, colonoscopies, bowel resection with colostomy and colostomy reversal. SOCIAL HISTORY: The patient is a former smoker. No history of drug abuse or alcohol abuse. MEDICATIONS: Medications at home prior to admission include Claritin, Zoloft, Nitrostat, Lipitor, Synthroid, allopurinol, vitamin D, iron, Ultram, Tums, Eliquis, Cardizem, Zaroxolyn, Lopressor, Colace, Lasix, potassium, Aldactone. ALLERGIES: Allergies include ZYVOX, PENICILLIN, CEPHALOSPORIN, ADHESIVE TAPE. REVIEW OF SYSTEMS: As per HPI. Other systems negative. PHYSICAL EXAMINATION: On examination, patient is currently comfortable, awake, alert, oriented x3, not in any acute distress. Blood pressure is 123/72, heart rate 75 per minute. He is afebrile. EXAMINATION OF THE HEART: S1, S2. EXAMINATION OF THE LUNGS: Bilateral breath sounds are heard. Abdomen is soft, nontender, morbidly obese. Examination of the lower extremities shows chronic skin changes. No edema is noted. [employer] exam is grossly intact. LABS: Labs shows sodium 139, potassium 3.9, BUN 62, serum creatinine 2.05, hemoglobin 13.7 g/dL. ASSESSMENT: 1. Acute kidney injury secondary to recent diuresis as well as hypoperfusion. Blood pressure was low on initial admission at about 99 to 100 mmHg systolic. Currently patient is not on any nephrotoxic medications. Agree with holding off on Lasix. We can resume low-dose oral diuretics at the time of discharge hopefully tomorrow. 2. Chronic obstructive pulmonary disease exacerbation, currently improved. 3. Chronic kidney disease NKF stage 3, secondary to nephrosclerosis. Baseline creatinine about 1.5 mg/dL. 4. Type 2 diabetes. 5. Atrial fibrillation with rapid ventricular response on initial admission, currently with controlled ventricular response. PLAN: Continue to hold off on Lasix. Repeat labs in a.m. The patient will follow up as outpatient for CKD. We can resume low-dose loop diuretics tomorrow prior to discharge. Thank you for this consultation. We will continue to follow the patient with you during his hospitalization. MMNOHEMIL / AUREAN: [id number] /
[2018-10-27 11:28] VITALS: BMI 52.4
[2018-10-27 11:48] LABS: Glucose,Whole Blood 146 mg/dL (75-99)
--- NOTE | 2018-10-27 12:13 | XR ---
EXAMINATION TYPE: XR chest 2V DATE OF EXAM: 10/27/2018 COMPARISON: 10/23/2018 HISTORY: 48-year-old male CHF TECHNIQUE: PA and lateral views FINDINGS: Heart mildly enlarged. Diffuse interstitial densities. More focal peripheral left basilar opacity wit h small effusion. Trace effusion on the right seen on the lateral view. IMPRESSION: 1. Correlate for CHF with only vascular congestion/mild interstitial edema. 2. Small left and trace right pleural effusions. 3. More focal peripheral left lower lung density. Attention on follow-up as the patient's condition i mproves. If the finding persists, contrast-enhanced CT may be indicated.
[2018-10-27 16:53] LABS: Glucose,Whole Blood 169 mg/dL (75-99)
[2018-10-27] MEDS: ATORVASTATIN 80 MG TAB PO SCH (20:26)
[2018-10-27] MEDS: SERTRALINE 100 MG TAB PO SCH (20:26)
[2018-10-27 20:27] LABS: Glucose,Whole Blood 175 mg/dL (75-99)
[2018-10-27 21:39] LABS: Glucose,Whole Blood 178 mg/dL (75-99)
[2018-10-27] MEDS: CALCIUM CARBONATE 500 MG CHEWABLE PO PRN (23:04)
[2018-10-28] MEDS: ALBUTEROL NEBULIZED 2.5 MG/3 ML INHALATION PRN (00:27)
[2018-10-28] MEDS: traMADol 50 MG TAB PO PRN ×2 (02:11→09:21)
[2018-10-28 06:45] LABS: Anisocytosis Slight; Basophils # (A) 0.1 k/uL (0-0.2); Basophils % (A) 1 %; Eosinophils # (A) 0.4 k/uL (0-0.7); Eosinophils % (A) 5 %; HCT 41.3 % (39.0-53.0); HGB 13.3 gm/dL (13.0-17.5); Lymphocytes # (A) 1.2 k/uL (1.0-4.8); Lymphocytes % (A) 15 %; MCH 28.4 pg (25.0-35.0); MCHC 32.2 g/dL (31.0-37.0); MCV 88.2 fL (80.0-100.0); Mean Platelet Volume 7.8; Monocytes # (A) 0.4 k/uL (0-1.0); Monocytes % (A) 5 %; Neutrophils # (A) 6.1 k/uL (1.3-7.7); Neutrophils % (A) 73 %; Platelet Count 203 k/uL (150-450); Poikilocytosis Slight; RBC 4.68 m/uL (4.30-5.90); RDW 16.8 % (11.5-15.5); WBC 8.3 k/uL (3.8-10.6)
[2018-10-28 06:49] LABS: Glucose,Whole Blood 211 mg/dL (75-99)
[2018-10-28 06:50] LABS: Calcium 9.6 mg/dL (8.4-10.2); Potassium 4.2 mmol/L (3.5-5.1)
[2018-10-28] MEDS: LEVOTHYROXINE 137 MCG TAB PO SCH (06:56)
[2018-10-28] MEDS: PANTOPRAZOLE 40 MG TABLET PO SCH (06:56)
[2018-10-28] MEDS: INSULIN ASPART (NovoLOG) 100 UNIT/ML VIAL SQ SCH ×4 (06:56→11:58)
[2018-10-28] MEDS: BUDESONIDE 0.5 MG/2 ML NEBU INHALATION SCH (07:32)
[2018-10-28] MEDS: IPRATROPIUM-ALBUTEROL 3 ML NEB INHALATION SCH ×3 (07:32→15:33)
[2018-10-28] MEDS: POTASSIUM CHLORIDE ER 20 MEQ TAB.ER PO SCH (09:20)
[2018-10-28] MEDS: FERROUS SULFATE 325 MG TAB PO SCH (09:20)
[2018-10-28] MEDS: ASPIRIN 325 MG TAB PO SCH (09:20)
[2018-10-28] MEDS: APIXABAN 2.5 MG TABLET PO SCH (09:20)
[2018-10-28] MEDS: ALLOPURINOL 100 MG TAB PO SCH (09:20)
[2018-10-28] MEDS: DILTIAZEM ORAL 60 MG TAB PO SCH ×2 (09:20→11:58)
[2018-10-28] MEDS: LORATADINE 10 MG TAB PO SCH (09:20)
[2018-10-28] MEDS: FOLIC ACID 1 MG TAB PO SCH (09:20)
[2018-10-28] MEDS: METOPROLOL TARTRATE 50 MG TAB PO SCH (09:26)
[2018-10-28 11:42] LABS: Glucose,Whole Blood 167 mg/dL (75-99)
[2018-10-28 12:05] VITALS: BP 105/53; PULSE 64; RESP 16; TEMP 98.6
--- NOTE | 2018-10-28 16:57 | P.DS ---
Providers Date of admission: 10/23/18 19:10 Attending physician: Hamzah Odom Consults: 10/23/18 19:09 Consult Physician Routine Consulting Provider: Alvin Wood Consult Reason/Comments: chf Do you want consulting provider notified?: Yes 10/26/18 09:55 Consult Physician Routine Consulting Provider: Hector Turcios Consult Reason/Comments: RAYSA Do you want consulting provider notified?: Yes Primary care physician: Agu[facility] Course: 48-year-old male was admitted seconded shortness of breath which improved now patient has multifactorial shortness of breath along with chronic diastolic dysfunction patient is on IV Lasix which will be switched to oral patient the is going towards volume depleted side and creatinine has worsened a bit. Baseline is around 1.2 now around 1.7. Patient was started on systemic steroids last night which I do not believe is necessary patient's IV steroids will be discontinued patient is is a newly diagnosed diabetic blood sugars are elevated patient will be started on Levemir tonight. His blood sugars are expected to be elevated for next 24 hours or so as he received systemic steroids. 10/26/2018 His creatinine continued to get worse shortness of breath actually better we'll cut down on 0-2 L family deny hallways today. We will also consult the nephrology worsening of creatinine is secondary to excessive diuretic therapy. Patient blood sugars are fairly controlled today. Patient will need to be discharged on long-acting insulin. 10/27/2018 patient's creatinine did improve continue to hold off diuretic therapy [facility] possibly of discharge tomorrow. Sugars are well controlled at counseling was provided 10/28/2018 Patient is clinically doing well serum creatinine did improve and close to his baseline. Nephrology is recommending oh to hold off metolazone for about 4 days. JESSENIA metabolic profile will be obtained in about 3 days will be discharged today. Patient was started on 14 units of on reacting insulin and Januvia for diabetes mellitus diabetic counseling was provided PHYSICAL EXAMINATION: GENERAL: The patient is alert and oriented x3, not in any acute distress. morb idly obese HEENT: Pupils are round and equally reacting to light. EOMI. No scleral icterus. No conjunctival pallor. Normocephalic, atraumatic. No pharyngeal erythema. No thyromegaly. CARDIOVASCULAR: S1 and S2 present. No murmurs, rubs, or gallops. I cannot appreciate JVD PULMONARY: decreased air entry into bilateral lung [place] ABDOMEN: Soft, nontender, nondistended, normoactive bowel sounds. No palpable organomegaly. MUSCULOSKELETAL: No joint swelling or deformity. EXTREMITIES: No cyanosis, clubbing, no pedal edema with chronic venous stasis and chronic venous stasis dermatosis NEUROLOGICAL: Gross neurological examination did not reveal any focal deficits. SKIN: No rashes. Assessment and Plan Plan: shortness of breath: He appears to be multifactorial mostly to 2 chronic diastolic dysfunction with acute exacerbation, along with obstructive sleep apnea with mild COPD exacerbation -COPD with possible mild acute exacerbation, better now. -Morbid obesity restrictive lung disease and sleep apnea -Coronary artery disease -Atrial fibrillation with rapid ventricular rate, patient's oral Cardizem dose was increased discussed with the cardiology and patient will remain on anticoagulation -acute renal failure: Prerenal azotemia, secondary to excessive diuretic therapy during this hospitalization -chronic kidney disease stage II to 3 probably secondary to diabetic nephropathy -Type 2 diabetes mellitus patient was never diagnosed with diabetes mellitus in the past his hemoglobin A1c is 9 patient was started on long-acting insulin -coronary artery disease stents -Hypothyroidism -Hyperlipidemia -Hypertension Patient Condition at Discharge: Stable Plan - Discharge Summary New Discharge Prescriptions: New sitaGLIPtin [Januvia] 100 mg PO DAILY #30 tab Insulin Detemir [Levemir Flextouch] 40 units SQ HS #100 units Pen Needle, Diabetic [Bd Ultra-Fine Pen Needle 6mm 32G] 100 each SQ DAILY #100 dis.needle Continue Loratadine [Claritin] 10 mg PO DAILY Sertraline [Zoloft] 100 mg PO HS Nitroglycerin Sl Tabs [Nitrostat] 0.4 mg SUBLINGUAL Q5M PRN #30 tab PRN Reason: Chest Pain Folic Acid 1 mg PO BID Levothyroxine Sodium [Synthroid] 137 mcg PO QAM Atorvastatin [Lipitor] 80 mg PO HS Budesonide/Formoterol Fumarate [Symbicort 160-4.5 Mcg Inhaler] 2 puff INHAL ATION RT-BID Allopurinol [Zyloprim] 100 mg PO DAILY traMADol HCL [Ultram] 50 mg PO BID PRN PRN Reason: Pain Ferrous Sulfate [Iron (65 MG Elemental)] 325 mg PO BID Ergocalciferol (Vitamin D2) [Drisdol] 50,000 unit PO MO Calcium Carbonate [Tums] 1,000 mg PO TID PRN chew PRN Reason: Heartburn Apixaban [Eliquis] 5 mg PO BID tab Diltiazem Oral [Cardizem*] 60 mg PO BID #60 tab Albuterol Nebulized [Ventolin Nebulized] 2.5 mg INHALATION RT-QID PRN PRN Reason: Shortness Of Breath Albuterol Inhaler [Ventolin Hfa Inhaler] 1 - 2 puff INHALATION RT-QID PRN PRN Reason: Shortness Of Breath Metoprolol Tartrate [Lopressor] 100 mg PO BID Docusate [Colace] 100 mg PO BID PRN #30 cap PRN Reason: Constipation Potassium Chloride ER [K-Dur 20] 40 meq PO DAILY 3 Days #6 tab.er.prt Furosemide [Lasix] 40 mg PO BID@0900,1600 #60 tab Metolazone [Zaroxolyn] 2.5 mg PO MOFR #0 Discontinued Spironolactone [Aldactone] 25 mg PO DAILY #30 tab Discharge Medication List Loratadine [Claritin] 10 mg PO DAILY 10/19/13 [History] Sertraline [Zoloft] 100 mg PO HS 10/19/13 [History] Nitroglycerin Sl Tabs [Nitrostat] 0.4 mg SUBLINGUAL Q5M PRN #30 tab 12/03/14 [Rx] Atorvastatin [Lipitor] 80 mg PO HS 03/25/15 [History] Folic Acid 1 mg PO BID 03/25/15 [History] Levothyroxine Sodium [Synthroid] 137 mcg PO QAM 03/25/15 [History] Budesonide/Formoterol Fumarate [Symbicort 160-4.5 Mcg Inhaler] 2 puff INHALATION RT-BID 08/01/16 [History] Allopurinol [Zyloprim] 100 mg PO DAILY 12/17/17 [History] Ergocalciferol (Vitamin D2) [Drisdol] 50,000 unit PO MO 05/05/18 [History] Ferrous Sulfate [Iron (65 MG Elemental)] 325 mg PO BID 05/05/18 [History] traMADol HCL [Ultram] 50 mg PO BID PRN 05/05/18 [History] Calcium Carbonate [Tums] 1,000 mg PO TID PRN chew 05/08/18 [Rx] Apixaban [Eliquis] 5 mg PO BID tab 06/03/18 [Rx] Diltiazem Oral [Cardizem*] 60 mg PO BID #60 tab 06/03/18 [Rx] Albuterol Inhaler [Ventolin Hfa Inhaler] 1 - 2 puff INHALATION RT-QID PRN 09/17/18 [History] Albuterol Nebulized [Ventolin Nebulized] 2.5 mg INHALATION RT-QID PRN 09/17/18 [History] Metoprolol Tartrate [Lopressor] 100 mg PO BID 09/17/18 [History] Docusate [Colace] 100 mg PO BID PRN #30 cap 09/22/18 [Rx] Furosemide [Lasix] 40 mg PO BID@0900,1600 #60 tab 09/22/18 [Rx] Potassium Chloride ER [K-Dur 20] 40 meq PO DAILY 3 Days #6 tab.er.prt 09/22/18 [Rx] Insulin Detemir [Levemir Flextouch] 40 units SQ HS #100 units 10/28/18 [Rx] Metolazone [Zaroxolyn] 2.5 mg PO MOFR #0 10/28/18 [Rx] Pen Needle, Diabetic [Bd Ultra-Fine Pen Needle 6mm 32G] 100 each SQ DAILY #100 dis.needle 10/28/18 [Rx] sitaGLIPtin [Januvia] 100 mg PO DAILY #30 tab 10/28/18 [Rx] Follow up Appointment(s)/Referral(s): Samaria Szymanski MD [STAFF PHYSICIAN] - 11/05/18 11:40 am Alvin Wood MD [STAFF PHYSICIAN] - 1 Week Aguilar Bautista DO [Primary Care Provider] - 10/30/18 3:30 pm Ambulatory/Diagnostic Orders: Basic Metabolic Panel [LAB.AMB] Time Frame: 3 Days, Location: None Selected Patient Instructions/Handouts: Heart Failure (DC), Type 2 Diabetes in Adults: New Diagnosis (DC), What is Insulin (DC), How to Give an Insulin Injection (DC), How to Check your Blood Sugar (DC) Activity/Diet/Wound Care/Special Instructions: gia called and levemir pen is covered at $3.80 for 3 months script for diabetic supplies sent to [facility] - delivered to room Hold Metolazone for 4 days. Please check blood sugar before meals and at bedtime prior to insulin administration. Discharge Disposition: HOME SELF-CARE
--- NOTE | 2018-10-29 04:09 | PN ---
PROGRESS NOTE Patient was seen this morning for followup for acute kidney injury. His diuretics are on hold. Renal function has improved with creatinine decreasing to about 1.8 mg/dL from 2.0. The patient is going home. He states he is feeling much better. PHYSICAL EXAMINATION: On examination, blood pressure was 103/56, heart rate 91 per minute. Patient is afebrile. Examination of the heart S1, S2. Examination of the lungs, decreased breath sounds at bases. ABDOMEN: Soft, obese. EXTREMITIES: Examination of lower extremities shows no significant edema. Chronic skin changes are noted. LABS: Show sodium 136, potassium 4.2, BUN 52, serum creatinine 1.82, hemoglobin 13.3 g/dL. ASSESSMENT: 1. Acute kidney injury, prerenal associated head show some degree of hypotension and hypoperfusion as well. Currently improved with holding the diuretics. We can resume oral Lasix once the patient is discharged. I will hold off on the metolazone for about 2-3 days post discharge. 2. Chronic kidney disease secondary to diabetic nephropathy and nephrosclerosis and NKF stage III, with baseline creatinine about 1.5 mg/dL. 3. Atrial fibrillation with rapid ventricular response on initial admission currently with controlled ventricular response. PLAN: He can resume oral Lasix from tomorrow and patient is advised to hold the metolazone for another 2-3 days post discharge. Follow up as outpatient for CKD and continue to avoid use of any nonsteroidal anti-inflammatory agents. MMODL / IJN: [id number] /
== END 2018-10-28 16:05 | disposition home or self-care (01) | DRG 291 ==
LOC: EC 17:35 → 3SCARD 19:10 → 2SICU 19:43 → 3SCARD 10-24 19:54
PROVIDERS: ADMIT Internal Medicine; ATTEND Internal Medicine
DX: I13.0 Hypertensive heart and chronic kidney disease with heart failure and stage 1 through stage 4 chronic kidney disease, or unspecified chronic kidney disease (principal); I50.33 Acute on chronic diastolic (congestive) heart failure; Z68.43 Body mass index [BMI] 50.0-59.9, adult; J44.1 Chronic obstructive pulmonary disease with (acute) exacerbation; N17.9 Acute kidney failure, unspecified; I48.2 Chronic atrial fibrillation; I25.10 Atherosclerotic heart disease of native coronary artery without angina pectoris; N18.3 Chronic kidney disease, stage 3 (moderate); E78.5 Hyperlipidemia, unspecified; D50.9 Iron deficiency anemia, unspecified; E66.01 Morbid (severe) obesity due to excess calories; G47.33 Obstructive sleep apnea (adult) (pediatric); E11.21 Type 2 diabetes mellitus with diabetic nephropathy; E11.22 Type 2 diabetes mellitus with diabetic chronic kidney disease; E03.9 Hypothyroidism, unspecified; I34.0 Nonrheumatic mitral (valve) insufficiency; I95.9 Hypotension, unspecified; F32.9 Major depressive disorder, single episode, unspecified; J98.4 Other disorders of lung; I25.2 Old myocardial infarction; Z99.81 Dependence on supplemental oxygen; Z90.49 Acquired absence of other specified parts of digestive tract; Z95.5 Presence of coronary angioplasty implant and graft; Z79.899 Other long term (current) drug therapy; Z79.890 Hormone replacement therapy; Z79.51 Long term (current) use of inhaled steroids; Z79.01 Long term (current) use of anticoagulants; Z87.442 Personal history of urinary calculi; Z86.14 Personal history of Methicillin resistant Staphylococcus aureus infection; Z87.891 Personal history of nicotine dependence; Z91.048 Other nonmedicinal substance allergy status; Z88.0 Allergy status to penicillin; Z88.1 Allergy status to other antibiotic agents; Z99.89 Dependence on other enabling machines and devices; Z98.890 Other specified postprocedural states; Z82.62 Family history of osteoporosis; Z82.61 Family history of arthritis; Z84.1 Family history of disorders of kidney and ureter; Z82.49 Family history of ischemic heart disease and other diseases of the circulatory system; Z83.49 Family history of other endocrine, nutritional and metabolic diseases; Z86.718 Personal history of other venous thrombosis and embolism
CPT/HCPCS: 36415; 71046; 80048; 80053; 82550; 83036; 83735; 83880; 84484; 85025; 85027; 85610; 85730; 93005; 94640; 94760; 96374; 99285

== ENCOUNTER 2018-11-21 15:58 | Inpatient (IN) | payer MEDICARE, OTHER ==
[2018-11-21] MEDS ORDERED: IPRATROPIUM 0.5 MG/2.5 ML NEBU INHALATION STA (16:26)
[2018-11-21] MEDS ORDERED: ALBUTEROL NEBULIZED 2.5 MG/3 ML INHALATION STA (16:26)
[2018-11-21] MEDS ORDERED: methylPREDNISolone SOD SUCCI 125 MG/2 ML VIAL IV STA (16:26)
--- NOTE | 2018-11-21 16:29 | ED ---
General Adult HPI - General Chief complaint: Shortness of Breath Stated complaint: SOB, CHF Time Seen by Provider: 11/21/18 16:19 Source: patient Mode of arrival: wheelchair Limitations: no limitations - History of Present Illness Initial comments: 48-year-old male history of congestive heart failure, CAD, COPD presenting for evaluation of dyspnea. Patient doesn't endorse a productive cough over the past several days. He also reports weight gain and lower extremity swelling. He believes his symptoms are similar to previous exacerbation of congestive heart failure. He endorses some mild chest tightness which is bilateral lower chest. Denies radiating central chest pain. Denies fever or chills. Denies abdominal pain nausea vomiting. - Related Data Home Medications Medication Instructions Recorded Confirmed Loratadine [Claritin] 10 mg PO DAILY 10/19/13 11/21/18 Sertraline [Zoloft] 100 mg PO HS 10/19/13 11/21/18 Atorvastatin [Lipitor] 80 mg PO HS 03/25/15 11/21/18 Folic Acid 1 mg PO BID 03/25/15 11/21/18 Levothyroxine Sodium [Synthroid] 137 mcg PO QAM 03/25/15 11/21/18 Budesonide/Formoterol Fumarate 2 puff INHALATION RT-BID 08/01/16 11/21/18 [Symbicort 160-4.5 Mcg Inhaler] Allopurinol [Zyloprim] 100 mg PO DAILY 12/17/17 11/21/18 Ergocalciferol (Vitamin D2) 50,000 unit PO MO 05/05/18 11/21/18 [Drisdol] Ferrous Sulfate [Iron (65 MG 325 mg PO BID 05/05/18 11/21/18 Elemental)] traMADol HCL [Ultram] 50 mg PO BID PRN 05/05/18 11/21/18 Albuterol Inhaler [Ventolin Hfa 1 - 2 puff INHALATION RT-QID PRN 09/17/18 11/21/18 Inhaler] Albuterol Nebulized [Ventolin 2.5 mg INHALATION RT-QID PRN 09/17/18 11/21/18 Nebulized] Metoprolol Tartrate [Lopressor] 100 mg PO BID 09/17/18 11/21/18 Previous Rx's Medication Instructions Recorded Nitroglycerin Sl Tabs [Nitrostat] 0.4 mg SUBLINGUAL Q5M PRN #30 tab 12/03/14 Calcium Carbonate [Tums] 1,000 mg PO TID PRN chew 05/08/18 Apixaban [Eliquis] 5 mg PO BID tab 06/03/18 Diltiazem Oral [Cardizem*] 60 mg PO BID #60 tab 06/03/18 Docusate [Colace] 100 mg PO BID PRN #30 cap 09/22/18 Furosemide [Lasix] 40 mg PO BID@0900,1600 #60 tab 09/22/18 Potassium Chloride ER [K-Dur 20] 40 meq PO DAILY 3 Days #6 09/22/18 tab.er.prt Insulin Detemir [Levemir Flextouch] 40 units SQ HS #100 units 10/28/18 Metolazone [Zaroxolyn] 2.5 mg PO MOFR #0 10/28/18 Pen Needle, Diabetic [Bd 100 each SQ DAILY #100 dis.needle 10/28/18 Ultra-Fine Pen Needle 6mm 32G] sitaGLIPtin [Januvia] 100 mg PO DAILY #30 tab 10/28/18 Allergies Allergy/AdvReac Type Severity Reaction Status Date / Time adhesive Allergy "PLASTIC Verified 11/21/18 16:44 TAPE PEELS SKIN,PAPER TAPE IS OK" linezolid Allergy Unknown Verified 11/21/18 16:44 penicillin G Allergy Rash/Hives Verified 11/21/18 16:44 Cephalosporins AdvReac FEVER Verified 11/21/18 16:44 Review of Systems ROS Statement: Those systems with pertinent positive or pertinent negative responses have been documented in the HPI. ROS Other: All systems not noted in ROS Statement are negative. Past Medical History Past Medical History: Atrial Fibrillation, Asthma, Coronary Artery Disease (CAD), Chest Pain / Angina, Heart Failure, COPD, Deep Vein Thrombosis (DVT), Hyperlipidemia, Hypertension, Myocardial Infarction (AR), Renal Disease, Sleep Apnea/CPAP/BIPAP, Thyroid Disorder, Vascular Disorder Additional Past Medical History / Comment(s): Chronic CHF, tracheobronchitis, CKD stage III, kidney stones, DVT L leg in 2004, KAMRYN without device use, colon abscess with bowel resection, multiple abdominal surgeries for a hiatal hernia that was complicated by prolonged hospitalization and prolonged ventilator dependent respiratory failure requiring a tracheostomy tube insertion, pvd-lower legs discolored/edematous, diverticular disease, chronic iron deficiency anemia, vertigo at times, Last Myocardial Infarction Date:: History of Any Multi-Drug Resistant Organisms: MRSA Date of last positivie culture/infection: 02/01/15 MDRO Source:: Abdomen Past Surgical History: Bowel Resection, Heart Catheterization With Stent, Hernia Repair Additional Past Surgical History / Comment(s): Colonoscopies, heart stents x 4, bowel resection with colostomy and colostomy reversal (removed a foot of pts colon)-2003, hernia repair with skin grafts and 2 fistula repairs (hospitalized for 1 year @[facility])-2010 MRSA 2014 in wounds. Past Anesthesia/Blood Transfusion Reactions: No Reported Reaction Additional Past Anesthesia/Blood Transfusion Reaction / Comment(s): Pt has received blood in past without reaction-2010 Date of Last Stent Placement:: 03/28/2015 Past Psychological History: Depression Smoking Status: Former smoker Past Alcohol Use History: None Reported Past Drug Use History: None Reported - Past Family History Mother Family Medical History: Osteoarthritis (OA), Pneumonia Additional Family Medical History / Comment(s): osteoporosis. arthroscopy surgery for knee Father Family Medical History: Liver Disease, Renal Disease Additional Family Medical History / Comment(s): triple heart bypass. liver transplant. aortic aneursym General Exam Limitations: no limitations General appearance: alert, in distress Head exam: Present: atraumatic, normocephalic Eye exam: Present: normal appearance, PERRL ENT exam: Present: normal exam Neck exam: Present: full ROM. Absent: tenderness, meningismus Respiratory exam: Present: respiratory distress, rales Cardiovascular Exam: Present: regular rate, normal rhythm GI/Abdominal exam: Present: soft. Absent: distended, tenderness, guarding, rebound Extremities exam: Present: pedal edema (With chronic venous stasis) Neurological exam: Present: alert, oriented X3, CN II-XII intact. Absent: motor sensory deficit Psychiatric exam: Present: normal affect, normal mood Skin exam: Present: warm, dry, intact. Absent: cyanosis, diaphoretic Course Vital Signs 11/21/18 11/21/18 11/21/18 16:00 17:28 17:36 Temperature 99.6 F Pulse Rate 87 90 Respiratory 18 22 Rate Blood Pressure 112/69 O2 Sat by Pulse 90 L Oximetry 11/21/18 18:01 Temperature Pulse Rate 94 Respiratory Rate Blood Pressure O2 Sat by Pulse Oximetry EKG Findings - EKG Comments: EKG Findings:: EKG: Atrial fibrillation, rate of 87, QRS duration 92, QTC 462, no ST segment elevation Medical Decision Making - Medical Decision Making 48-year-old male history of COPD, congestive heart for a presenting with dyspnea and weight gain. Chest x-ray shows bilateral edema with bilateral effusions, BMP is significantly elevated 8000. Patient's given IV Lasix in the emergency prompt. Will be admitted for IV diuresis. Case is discussed with admitting physician. - Lab Data Result diagrams: 11/21/18 16:42 11/21/18 16:42 Lab Results 11/21/18 11/21/18 11/21/18 Range/Units 16:42 16:42 16:42 WBC 9.2 (3.8-10.6) k/uL RBC 4.31 (4.30-5.90) m/uL Hgb 12.2 L (13.0-17.5) gm/dL Hct 36.9 L (39.0-53.0) % MCV 85.4 (80.0-100.0) fL MCH 28.2 (25.0-35.0) pg MCHC 33.0 (31.0-37.0) g/dL RDW 18.5 H (11.5-15.5) % Plt Count 175 (150-450) k/uL Neutrophils % 77 % Lymphocytes % 10 % Monocytes % 5 % Eosinophils % 4 % Basophils % 1 % Neutrophils # 7.1 (1.3-7.7) k/uL Lymphocytes # 0.9 L (1.0-4.8) k/uL Monocytes # 0.5 (0-1.0) k/uL Eosinophils # 0.4 (0-0.7) k/uL Basophils # 0.1 (0-0.2) k/uL Poikilocytosis Slight Anisocytosis Slight PT (9.0-12.0) sec INR (<1.2) APTT (22.0-30.0) sec Sodium 136 L (137-145) mmol/L Potassium 3.7 (3.5-5.1) mmol/L Chloride 94 L (98-107) mmol/L Carbon Dioxide 32 H (22-30) mmol/L Anion Gap 10 mmol/L BUN 33 H (9-20) mg/dL Creatinine 1.67 H (0.66-1.25) mg/dL Est GFR (CKD-EPI)AfAm 56 (>60 ml/min/1.73 sqM) Est GFR (CKD-EPI)NonAf 48 (>60 ml/min/1.73 sqM) Glucose 177 H (74-99) mg/dL Calcium 8.6 (8.4-10.2) mg/dL Magnesium 2.0 (1.6-2.3) mg/dL Total Bilirubin 1.5 H (0.2-1.3) mg/dL AST 34 (17-59) U/L ALT 30 (21-72) U/L Alkaline Phosphatase 81 (38-126) U/L Troponin I (0.000-0.034) ng/mL NT-Pro-B Natriuret Pep 8150 pg/mL Total Protein 7.0 (6.3-8.2) g/dL Albumin 3.8 (3.5-5.0) g/dL 11/21/18 11/21/18 Range/Units 16:42 16:42 WBC (3.8-10.6) k/uL RBC (4.30-5.90) m/uL Hgb (13.0-17.5) gm/dL Hct (39.0-53.0) % MCV (80.0-100.0) fL MCH (25.0-35.0) pg MCHC (31.0-37.0) g/dL RDW (11.5-15.5) % Plt Count (150-450) k/uL Neutrophils % % Lymphocytes % % Monocytes % % Eosinophils % % Basophils % % Neutrophils # (1.3-7.7) k/uL Lymphocytes # (1.0-4.8) k/uL Monocytes # (0-1.0) k/uL Eosinophils # (0-0.7) k/uL Basophils # (0-0.2) k/uL Poikilocytosis Anisocytosis PT 11.5 (9.0-12.0) sec INR 1.1 (<1.2) APTT 38.7 H (22.0-30.0) sec Sodium (137-145) mmol/L Potassium (3.5-5.1) mmol/L Chloride (98-107) mmol/L Carbon Dioxide (22-30) mmol/L Anion Gap mmol/L BUN (9-20) mg/dL Creatinine (0.66-1.25) mg/dL Est GFR (CKD-EPI)AfAm (>60 ml/min/1.73 sqM) Est GFR (CKD-EPI)NonAf (>60 ml/min/1.73 sqM) Glucose (74-99) mg/dL Calcium (8.4-10.2) mg/dL Magnesium (1.6-2.3) mg/dL Total Bilirubin (0.2-1.3) mg/dL AST (17-59) U/L ALT (21-72) U/L Alkaline Phosphatase (38-126) U/L Troponin I <0.012 (0.000-0.034) ng/mL NT-Pro-B Natriuret Pep pg/mL Total Protein (6.3-8.2) g/dL Albumin (3.5-5.0) g/dL Disposition Clinical Impression: Acute pulmonary edema, CHF (congestive heart failure) Disposition: ADMITTED IP TO THIS [facility] Condition: Stable Is patient prescribed a controlled substance at d/c from ED?: No Referrals: Aguilar Bautista DO [Primary Care Provider] - 1-2 days Decision to Admit Reason: Admit from EC Decision Date: 11/21/18 Decision Time: 19:00
[2018-11-21 16:59] LABS: Anisocytosis Slight; Basophils # (A) 0.1 k/uL (0-0.2); Basophils % (A) 1 %; Eosinophils # (A) 0.4 k/uL (0-0.7); Eosinophils % (A) 4 %; HCT 36.9 % (39.0-53.0); HGB 12.2 gm/dL (13.0-17.5); Lymphocytes # (A) 0.9 k/uL (1.0-4.8); Lymphocytes % (A) 10 %; MCH 28.2 pg (25.0-35.0); MCV 85.4 fL (80.0-100.0); Mean Platelet Volume 8.6; Monocytes # (A) 0.5 k/uL (0-1.0); Monocytes % (A) 5 %; Neutrophils # (A) 7.1 k/uL (1.3-7.7); Neutrophils % (A) 77 %; Platelet Count 175 k/uL (150-450); Poikilocytosis Slight; RBC 4.31 m/uL (4.30-5.90); RDW 18.5 % (11.5-15.5); WBC 9.2 k/uL (3.8-10.6)
[2018-11-21 17:09] LABS: INR 1.1 (<1.2); Partial Thromboplastin Time 38.7 sec (22.0-30.0); Prothrombin Time 11.5 sec (9.0-12.0)
[2018-11-21 17:23] LABS: Albumin 3.8 g/dL (3.5-5.0); Calcium 8.6 mg/dL (8.4-10.2); Potassium 3.7 mmol/L (3.5-5.1); Total Bilirubin 1.5 mg/dL (0.2-1.3)
--- NOTE | 2018-11-21 17:42 | XR ---
EXAMINATION TYPE: XR chest 2V DATE OF EXAM: 11/21/2018 COMPARISON: 10/27/2018 HISTORY: Asthma. Heart failure. TECHNIQUE: Frontal and lateral views of the chest are obtained. FINDINGS: There is coarse interstitial density in the lungs. There is mild blunting left costophreni c angle. Heart size is normal. There is small amount of fluid in the left major fissure. There is sli ght blunting also right costophrenic angle. IMPRESSION: Pleural effusions and pulmonary interstitial edema. This could be consistent with conges tive heart failure. No change compared to last exam.
[2018-11-21] MEDS ORDERED: FUROSEMIDE 10 MG/ML 4 ML VIAL IV STA (18:37)
[2018-11-21] MEDS ORDERED: ACETAMINOPHEN TAB 325 MG TAB PO PRN (18:55)
[2018-11-21] MEDS ORDERED: NALOXONE 0.4 MG/ML 1 ML VIAL IV PRN (18:55)
[2018-11-21] MEDS ORDERED: CALCIUM CARBONATE 500 MG CHEWABLE PO PRN (18:56)
[2018-11-21] MEDS ORDERED: ALBUTEROL NEBULIZED 2.5 MG/3 ML INHALATION PRN (18:56)
[2018-11-21] MEDS ORDERED: NITROGLYCERIN SL TABS 0.4 MG TAB SUBLINGUAL PRN (18:56)
[2018-11-21] MEDS ORDERED: METOLAZONE 2.5 MG TAB PO SCH (19:00)
[2018-11-21] MEDS ORDERED: SYMBICORT 160-4.5 MCG INHALER INHALATION SCH (20:00)
[2018-11-21] MEDS ORDERED: INSULIN DETEMIR (LEVEMIR) 100 UNIT/ML SYR SQ SCH (21:00)
[2018-11-21] MEDS: METOPROLOL TARTRATE 50 MG TAB PO SCH (22:09)
[2018-11-21] MEDS: APIXABAN 5 MG TAB PO SCH (22:09)
[2018-11-21] MEDS: DILTIAZEM ORAL 60 MG TAB PO SCH (22:10)
[2018-11-21] MEDS: traMADol 50 MG TAB PO PRN (22:12)
[2018-11-22] MEDS ORDERED: FUROSEMIDE 10 MG/ML 4 ML VIAL IV STA (00:37)
[2018-11-22] MEDS ORDERED: POTASSIUM CHLORIDE ER 20 MEQ TAB.ER PO STA (00:37)
[2018-11-22] MEDS ORDERED: DOCUSATE 100 MG CAP PO PRN (01:50)
[2018-11-22] MEDS ORDERED: methylPREDNISolone SOD SUCCI 125 MG/2 ML VIAL IV SCH (02:00)
[2018-11-22] MEDS: LEVOFLOXACIN 500MG-D5W PMX 500 MG in DEXTROSE/WATER 1 100ML.BAG IVPB SCH (02:19)
[2018-11-22] MEDS ORDERED: IPRATROPIUM-ALBUTEROL 3 ML NEB INHALATION PRN (05:31)
[2018-11-22] MEDS: LEVOTHYROXINE 137 MCG TAB PO SCH (06:07)
[2018-11-22 06:53] LABS: Glucose,Whole Blood 324 mg/dL (75-99)
[2018-11-22] MEDS: SYMBICORT 160-4.5 MCG INHALER INHALATION SCH ×2 (07:34→20:00)
[2018-11-22] MEDS: IPRATROPIUM-ALBUTEROL 3 ML NEB INHALATION SCH ×4 (07:34→20:00)
[2018-11-22] MEDS ORDERED: ALBUTEROL NEBULIZED 2.5 MG/3 ML INHALATION SCH (08:00)
[2018-11-22] MEDS ORDERED: FORMOTEROL FUMARATE 20 MCG/2 ML NEBU INHALATION SCH (08:00)
[2018-11-22] MEDS ORDERED: BUDESONIDE 1 MG/2 ML NEBU INHALATION SCH (08:00)
--- NOTE | 2018-11-22 08:09 | HP ---
HISTORY AND PHYSICAL DATE OF SERVICE: 11/21/2018 CHIEF COMPLAINT: Shortness of breath. HISTORY OF PRESENT ILLNESS: This is a 48-year-old gentleman with a past medical history of multiple medical problems including CAD, CHF, COPD, history of asthma, atrial fibrillation, history of diabetes, DVT, history of hypertension, history of myocardial infarction, sleep apnea, history of chronic CHF, history of tracheobronchitis, CKD stage III, history of CAD/stent, being followed Dr. Rincon in the outpatient setting, was complaining of shortness of breath and cough for the past 1 week. The patient also gained some weight. Patient came to [facility]. Patient found to be severe wheezing. Chest x-ray showed fluid overload. The patient admitted for further evaluation and treatment. There is no history of fever, rigors. No history of headache, loss of consciousness or seizures. The creatinine is 1.67 and the baseline is around between 1 and 2. There is no history of chest pain, palpitations. NT proBNP is elevated 8150. PAST MEDICAL HISTORY: Atrial fibrillation, asthma, COPD, CHF, DVT, hypertension, hyperlipidemia, multiple other medical problems. MEDICATIONS: Prior to admission include: 1. Ultram 50 mg b.i.d. p.r.n. 2. Januvia 100 mg p.o. daily. 3. Zoloft 100 mg q.h.s. 4. K-Dur 40 mEq p.o. daily. 5. Diabetic pen. 6. Nitrostat 0.4 sublingual p.r.n. 7. Lopressor 100 mg p.o. b.i.d. 8. Zaroxolyn 2.5 mg Saturday and Saturday. 9. Claritin 10 mg p.o. daily. 10.Synthroid 137 mcg p.o. q.a.m. 11.Levemir 40 units subcu q.h.s. 12.Lasix 40 mg p.o. b.i.d. 13.Folic acid 1 mg p.o. b.i.d. 14.Iron 320 mg p.o. b.i.d. 15.Vitamin D2, 50,000 p.o. Saturday. 16.Colace 100 mg b.i.d. p.r.n. 17.Cardizem 60 mg b.i.d. 18.Tums p.r.n. 19.Symbicort 160/4.5 two puffs b.i.d. 20.Lipitor 80 mg q.h.s. 21.Eliquis 5 mg p.o. b.i.d. 22.Zyloprim 100 mg p.o. daily. 23.Ventolin 2.5 q.i.d. p.r.n. ALLERGIES: ADHESIVE TAPE, LINEZOLID, PENICILLIN G AND CEPHALOSPORINS. FAMILY HISTORY: DJD, pneumonia, osteoporosis in the family. SOCIAL HISTORY: Previous history of smoking. No history of current smoking or alcohol intake. REVIEW OF SYSTEMS: ENT: No diminished vision. No diminished hearing. CARDIOVASCULAR system: As mentioned earlier. RESPIRATORY: As mentioned earlier. GI no nausea or vomiting. no dysuria. NERVOUS SYSTEM: No numbness or weakness. ALLERGY: No asthma or hayfever. MUSCULOSKELETAL: As mentioned earlier. HEMATOLOGY/ONCOLOGY: No history or anemia. ENDOCRINE: As mentioned earlier. CONSTITUTIONAL: As mentioned earlier. DERMATOLOGY: Negative. RHEUMATOLOGY: Negative. PSYCHIATRY as mentioned. PHYSICAL EXAM: GENERAL: Patient is alert and oriented times three. VITAL SIGNS: Pulse 106, blood pressure 114/76, respiration 20, temperature 97.2, pulse ox 94% on 4 L. HEENT: Conjunctivae normal. Oral mucosa moist. NECK: Full, otherwise no jugular venous distention. No carotid bruit. No lymph node enlargement. CARDIOVASCULAR system: S1. S2 muffled. No S3, no S4. RESPIRATORY: Breath sounds diminished in the bases. Bilateral scattered rhonchi and crackles. Expiratory wheezing and prolonged expiratory wheezing and audible wheezes also heard bilaterally. Patient has diffuse axillary muscles of respiration acting. Patient had difficulty in completing a sentence. ABDOMEN: Soft, obese, nontender. No mass palpable. LEGS: Bilateral leg edema, hyperpigmentation, nonpitting pedal edema. Otherwise pulses diminished bilaterally. NERVOUS SYSTEM: Higher functions as mentioned earlier. Moves all 4 limbs. No focal motor or sensory deficits. LYMPHATICS: No lymph nodes palpable in the neck, axillae or groin. SKIN: No ulcer, rash or bleeding. JOINTS: No active deforming arthropathy. LABS: At this time shows WBC 9.2, hemoglobin 12.2, sodium 136, creatinine is 1.67. Total bilirubin 1.5. ASSESSMENT: 1. Shortness of breath, multifactorial with chronic obstructive pulmonary disease, acute exacerbation, congestive heart failure acute exacerbation with acute on chronic diastolic dysfunction. 2. Possible acute purulent tracheobronchitis. 3. Atrial fibrillation. 4. History of asthma. 5. Coronary artery disease. 6. Congestive heart failure. 7. Chronic obstructive pulmonary disease. 8. History of deep vein thrombosis. 9. Hypertension. 10.Hyperlipidemia. 11.History of myocardial infarction. 12.History of sleep apnea. 13.History of chronic kidney stage 3. 14.History of degenerative joint disease. 15.History of colonic abscess with bowel resection. 16.History of coronary artery disease, stent. 17.History of prolonged respiratory failure. 18.History of depression. 19.Gait dysfunction. 20.Morbid obesity with BMI of 52.3. 21.FULL CODE. RECOMMENDATIONS AND DISCUSSION: In this 48-year-old gentleman who presented with multiple medical problems, we will monitor the patient closely. Continue the current medications, symptomatic treatment , management and we will initiate broad-spectrum IV antibiotics. I would also recommend monitor blood sugars closely and intensive bronchodilator treatment, empiric antibiotics, IV diuretics. Cardiology and pulmonary consultations. If the blood sugars are going more than 300, I would recommend insulin drip at this time. Otherwise we will closely monitor. I would also recommend a course of IV antibiotics also. The prognosis extremely guarded because of multiple complex medical issues. Further recommendations to follow. Discussed with the patient. A copy of dictation being forwarded to Dr. Rincon. EUNICE / NORBERT: [id number] /
[2018-11-22 08:20] LABS: Calcium 8.4 mg/dL (8.4-10.2); Potassium 3.6 mmol/L (3.5-5.1)
[2018-11-22] MEDS: INSULIN ASPART (NovoLOG) 100 UNIT/ML VIAL SQ SCH ×3 (08:56→17:48)
[2018-11-22] MEDS: APIXABAN 5 MG TAB PO SCH ×2 (08:59→20:13)
[2018-11-22] MEDS: POTASSIUM CHLORIDE ER 20 MEQ TAB.ER PO SCH (08:59)
[2018-11-22] MEDS: ALLOPURINOL 100 MG TAB PO SCH (08:59)
[2018-11-22] MEDS: PANTOPRAZOLE 40 MG TABLET PO SCH (08:59)
[2018-11-22] MEDS: LORATADINE 10 MG TAB PO SCH (08:59)
[2018-11-22] MEDS: FERROUS SULFATE 325 MG TAB PO SCH ×2 (08:59→20:13)
[2018-11-22] MEDS: METOPROLOL TARTRATE 50 MG TAB PO SCH ×2 (08:59→20:13)
[2018-11-22] MEDS: DILTIAZEM ORAL 60 MG TAB PO SCH ×2 (09:00→20:14)
[2018-11-22] MEDS ORDERED: FUROSEMIDE 10 MG/ML 4 ML VIAL IV SCH (09:00)
[2018-11-22] MEDS: FUROSEMIDE 10 MG/ML 4 ML VIAL IV SCH ×2 (09:00→17:48)
[2018-11-22] MEDS: LINAGLIPTIN 5 MG TABLET PO SCH (09:01)
[2018-11-22] MEDS: FOLIC ACID 1 MG TAB PO SCH ×2 (09:01→20:14)
[2018-11-22 09:02] LABS: Anisocytosis Slight; Basophils % (A) 0 %; Eosinophils % (A) 1 %; HCT 36.3 % (39.0-53.0); Hypochromasia Slight; Lymphocytes # (A) 0.7 k/uL (1.0-4.8); Lymphocytes % (A) 12 %; MCH 28.8 pg (25.0-35.0); MCHC 32.9 g/dL (31.0-37.0); MCV 87.3 fL (80.0-100.0); Mean Platelet Volume 8.3; Monocytes # (A) 0.4 k/uL (0-1.0); Monocytes % (A) 7 %; Neutrophils # (A) 4.4 k/uL (1.3-7.7); Neutrophils % (A) 80 %; Platelet Count 171 k/uL (150-450); Poikilocytosis Slight; RBC 4.16 m/uL (4.30-5.90); RDW 18.1 % (11.5-15.5); WBC 5.5 k/uL (3.8-10.6)
--- NOTE | 2018-11-22 09:49 | CONS ---
CONSULTATION PULMONARY/CRITICAL CARE CONSULTATION: DATE OF SERVICE: 11/22/2018 This is a patient who presents to the emergency room with complaints of shortness of breath. He is a 48-year-old male with a history of congestive heart failure, CAD, and COPD. The patient presents with a number of days of increasing and progressive shortness of breath. In addition, he does have a productive cough. He also has significant weight gain, increasing abdominal girth and lower extremity swelling. The patient was seen in the emergency room, admitted with a diagnosis of probable acute congestive heart failure. Chest x-ray is consistent with that diagnosis. He also does have some mild chest tightness. The patient was admitted to room 327. When I went into the room, he was sleeping comfortably. He was on a couple L nasal O2. Did not appear to be in any distress, whatsoever. His head was elevated. He was not lying flat in bed. He did seem comfortable. I woke him. He states he is feeling better than he did when he came into the emergency room on 11/21/2018. CURRENT MEDICATIONS: Include Claritin, Zoloft, Lipitor, folic acid, Synthroid, Symbicort, allopurinol, vitamin D2, iron, tramadol, albuterol inhaler, metoprolol, sublingual nitroglycerin, calcium carbonate tablets, Eliquis, Cardizem, Colace, Lasix, potassium, insulin, Zaroxolyn, and Januvia. ALLERGIES: Include ADHESIVE TAPE: Also with PENICILLIN G and CEPHALOSPORINS. PAST MEDICAL HISTORY: Positive for atrial fibrillation, asthma/COPD, CAD, angina pectoris, CHF, deep venous thrombosis, hyperlipidemia, hypertension, myocardial infarction, chronic kidney disease, sleep apnea syndrome, and hypothyroidism. In addition, the patient has a history of kidney stones, colon abscess with bowel resection, multiple abdominal surgeries, respiratory failure requiring chronic ventilator dependence, subsequent tracheostomy tube insertion and chronic iron-deficiency anemia. SURGICAL HISTORY: Extensive as well. Includes bowel resection, heart catheterization with stent, hernia repair, colostomy with colostomy reversal, multiple skin grafts, fistula repair, and other surgical procedures. SOCIAL HISTORY: Positive for previous tobacco use. Patient denies smoking currently. No illicit drug use or significant alcohol use. FAMILY HISTORY: Positive for osteoarthritis pneumonia, osteoporosis, coronary artery disease, liver transplant, bypass grafting and aortic aneurysm. REVIEW OF SYSTEMS: CONSTITUTIONAL: Weakness. NEUROLOGIC: Negative. HEENT: Negative. CARDIOVASCULAR: Chest tightness. PULMONARY: Shortness of breath, chest congestion, cough, wheezing, minimal phlegm production. GI: Increasing abdominal girth. : Negative. RHEUMATOLOGIC: Negative. IMMUNOLOGIC: Negative. ENDOCRINOLOGIC negative. DERMATOLOGIC: Negative. Current vital signs, temperature is 97.8, heart rate 84, respiratory rate 20, blood pressure 122/79 mean 93, and 4 L saturation 96%. He appears in no acute distress. As I mentioned, he was sleeping initially when I went into the room. No conversational dyspnea. No use of accessory muscles. No audible wheezing. HEENT: Examination is grossly unremarkable. Nasal O2 noted. NECK: Supple. Full range of motion. No adenopathy or thyromegaly. Neck veins are flat. CARDIOVASCULAR: Examination reveals a regular rhythm and rate. He is clearly in atrial fibrillation. Heart sounds are distant. S1, S2 normal. No distinct murmur noted. LUNGS: Reveal bibasilar crackles. No wheezes or rhonchi. Breath sounds equal bilaterally. ABDOMEN: Obese. Bowel sounds are heard. EXTREMITIES: Intact. There was significant edema. There was some chronic venous stasis changes. There is pitting. SKIN: Without rash. NEUROLOGIC: Examination is brief but nonfocal. LABS: Reviewed. White count 9.2, hemoglobin 12.2, hematocrit 36.9, platelet count 175,000, PT, INR are normal. PTT 38.7. Sodium 136, potassium 3.7, chloride 94, CO2 is 32, anion gap is 10, BUN and creatinine were 33 and 1.67. His N-terminal proBNP was 8,150. Troponin was negative. Chest x-ray shows what appears to be some interstitial edema/CHF with small pleural effusions. Medications are reviewed. He is on appropriate medications including updrafts and diuretics. ASSESSMENT: 1. Shortness of breath, most likely related to underlying congestive heart failure. Cannot rule out a component of chronic obstructive pulmonary disease, but I think it present, very minor at best. 2. History of chronic atrial fibrillation. 3. Coronary artery disease. 4. Chronic chest pain. 5. Deep venous thrombosis. 6. Hyperlipidemia. 7. History of hypertension. 8. Previous myocardial infarction. 9. Chronic kidney disease. 10.Sleep apnea syndrome, maintained on CPAP. 11.Hypothyroidism. 12.Previous colon surgery with colostomy and subsequent reversal. 13.Previous episode of prolonged respiratory failure requiring tracheostomy. 14.Chronic iron-deficiency anemia. 15.Multiple other medical problems and comorbidities including morbid obesity. PLAN: The patient's medications were reviewed. Suggestions will be made. The patient's overall situation is most consistent with CHF. I do not think his COPD is particularly active. I do not believe he would benefit from corticosteroids. Additional recommendations and suggestions are forthcoming. Prognosis is very guarded. MMODL / IJN: [id number] /
[2018-11-22 11:35] LABS: Glucose,Whole Blood 439 mg/dL (75-99)
[2018-11-22 12:33] VITALS: BMI 51.6
[2018-11-22] MEDS ORDERED: INSULIN REGULAR BOLUS (FROM DRIP BAG) IV ONE (14:45)
[2018-11-22] MEDS: INSULIN REGULAR 100 UNIT in SODIUM CHLORIDE 0.9% 100 ML IV SCH (15:15)
[2018-11-22 15:46] LABS: Glucose,Whole Blood 331 mg/dL (75-99)
--- NOTE | 2018-11-22 16:13 | PN ---
PROGRESS NOTE DATE OF SERVICE: 11/22/2018 This is a 48-year-old gentleman with a past medical history of multiple medical problems, admitted with shortness of breath, possibly combination of COPD, CHF acute exacerbation. The patient was started on IV Lasix. Patient is feeling slightly better. The patient also on steroids, blood sugar is elevated and evaluation by Pulmonary and Cardiology is in progress also. PAST MEDICAL HISTORY: Reviewed. REVIEW OF SYSTEMS: CARDIOVASCULAR: No angina. RESPIRATION: As mentioned earlier. GI: As mentioned earlier. : No dysuria. NERVOUS SYSTEM: As mentioned earlier. ENDOCRINE: As mentioned earlier. CURRENT MEDICATIONS ARE REVIEWED INCLUDE: 1. Tylenol 650 q.6 p.r.n. 2. DuoNeb q.i.d. and p.r.n. 3. Zyloprim 100 mg. 4. Eliquis 5 mg p.o. b.i.d. 5. Lipitor 80 mg q.h.s. 6. Symbicort 160/4.5 two puffs b.i.d. 7. Tums 1000 mg b.i.d. 8. Cardizem 60 mg p.o. b.i.d. 9. Colace 100 mg b.i.d. 10.Vitamin D2 fifty thousand. 11.Iron sulfate 320 mg b.i.d. 12.Folic acid 1 mg daily. 13.Lasix 40 mg IV q.h.s. 14.NovoLog scale. 15.Insulin. 16.Levaquin. 17.Synthroid. 18.Tradjenta. 19.Claritin. 20.Zaroxolyn. 21.Narcan. 22.Nitrostat. 23.Protonix. 24.K-Dur. 25.Zoloft. 26.Ultram dose reviewed. PHYSICAL EXAMINATION: Patient is alert, oriented x3. Pulse is 84, blood pressure 140/60, respirations 16, temperature 98 degrees, pulse ox 98% on 2 L. HEENT: Conjunctivae normal. Oral mucosa moist. NECK: Obese. No jugular venous distention. No carotid bruit. No lymph node enlargement. CARDIOVASCULAR: S1, S2, muffled. RESPIRATION: Breath sounds diminished at the bases, bilateral scattered rhonchi, no crackles. Expiratory wheezing also present. ABDOMEN: Soft, obese, nontender. LEGS: Bilateral leg edema. Hyperpigmentation. NERVOUS SYSTEM: Diffusely weak. LABS: WBC is 5.8, hemoglobin is 11, sodium 134, creatinine is 1.85 and glucose 439. ASSESSMENT: 1. Shortness of breath, multifactorial, chronic obstructive pulmonary disease acute exacerbation as well as congestive heart failure acute exacerbation with acute on chronic diastolic dysfunction. 2. Possible acute purulent tracheobronchitis. 3. Atrial fibrillation. 4. History of asthma. 5. History of coronary artery disease. 6. Congestive heart failure. 7. History of chronic obstructive pulmonary disease. 8. History of deep vein thrombosis. 9. Hypertension. 10.Hyperlipidemia. 11.History of myocardial infarction. 12.History of sleep apnea. 13.History of chronic kidney disease stage III. 14.History of degenerative joint disease. 15.History of chronic abscess with bowel resection. 16.History of coronary artery disease, stent. 17.History of prolonged respiratory failure. 18.History of depression. 19.Gait dysfunction. 20.Morbid obesity with body mass index of 52.3. 21.FULL CODE. RECOMMENDATION: In this 48-year-old gentleman who presented with multiple complex medical issues, will monitor the patient closely, continue with the current management and symptomatic treatment, otherwise at this time I recommend to continue with the bronchodilators. Continue with the steroids. Monitor labs closely. Cardiology, Pulmonology consultations; otherwise, avoid nephrotoxic medications. Guarded prognosis because of multiple complex medical issues. Further recommendations to follow. We will also obtain a Nephrology consultation. See orders for the details. MMODL / IJN: [id number] /
[2018-11-22 16:18] LABS: Glucose,Whole Blood 245 mg/dL (75-99)
[2018-11-22 18:21] LABS: Glucose,Whole Blood 148 mg/dL (75-99)
[2018-11-22 20:05] LABS: Glucose,Whole Blood 306 mg/dL (75-99)
[2018-11-22] MEDS: ATORVASTATIN 80 MG TAB PO SCH (20:13)
[2018-11-22] MEDS: traMADol 50 MG TAB PO PRN (20:13)
[2018-11-22] MEDS: SERTRALINE 100 MG TAB PO SCH (20:14)
[2018-11-22 22:24] LABS: Glucose,Whole Blood 258 mg/dL (75-99)
[2018-11-23 00:14] LABS: Glucose,Whole Blood 243 mg/dL (75-99)
[2018-11-23] MEDS: INSULIN REGULAR 100 UNIT in SODIUM CHLORIDE 0.9% 100 ML IV SCH (00:14)
[2018-11-23] MEDS: FUROSEMIDE 10 MG/ML 4 ML VIAL IV SCH ×4 (00:14→23:30)
[2018-11-23 01:58] LABS: Glucose,Whole Blood 214 mg/dL (75-99)
[2018-11-23] MEDS: LEVOFLOXACIN 500MG-D5W PMX 500 MG in DEXTROSE/WATER 1 100ML.BAG IVPB SCH (02:08)
[2018-11-23 04:54] LABS: Glucose,Whole Blood 144 mg/dL (75-99)
[2018-11-23] MEDS: LEVOTHYROXINE 137 MCG TAB PO SCH (06:10)
[2018-11-23 06:11] LABS: Glucose,Whole Blood 124 mg/dL (75-99)
[2018-11-23 07:01] LABS: Glucose,Whole Blood 148 mg/dL (75-99)
[2018-11-23] MEDS: IPRATROPIUM-ALBUTEROL 3 ML NEB INHALATION SCH ×4 (07:07→21:12)
[2018-11-23] MEDS: SYMBICORT 160-4.5 MCG INHALER INHALATION SCH ×2 (07:07→21:12)
--- NOTE | 2018-11-23 08:15 | P.NPCON ---
History of Present Illness - Reason for Consult acute renal failure, chronic renal failure - History of Present Illness Reason for consultation: Acute kidney injury on chronic kidney disease History of present illness: Patient is a 48-year-old male seen in renal consultation for acute kidney injury on chronic kidney disease. Patient has chronic kidney disease stage III secondary to diabetic kidney disease and cardiorenal syndrome with baseline creatinine in the range of 1.4-1.7. Creatinine on admission was 1.67 and was up to 1.85 yesterday. Patient presented to the hospital with dyspnea. Currently denies edema in his lower extremities. Patient states he was unable to walk from his bedroom to the bathroom and decided to come to the hospital. He currently has a nonproductive cough. He denies any fever. Admits to good urine output. Currently on IV Lasix 40 mg 3 times daily. No vomiting or diarrhea. Patient does have history of diabetes mellitus. He is nonoliguric. Urine output over 3 L in the last 24 hours. Denies use of nonsteroidals. Hemodynamically stable with a blood pressures on the lower side. No hematuria or dysuria. Vital signs are stable. General: The patient appeared well nourished and normally developed. HEENT: Head exam is unremarkable. Neck is without jugular venous distension. LUNGS: Scattered rhonchi. Breath sounds decreased. HEART: Rate and Rhythm are regular. First and second heart sounds normal. No murmurs, rubs or gallops. ABDOMEN: Abdominal exam reveals normal bowel sounds. Non-tender and non- distended. No evidence of peritonitis. EXTREMITITES: Trace edema. Past Medical History Past Medical History: Atrial Fibrillation, Asthma, Coronary Artery Disease (CAD), Chest Pain / Angina, Heart Failure, COPD, Deep Vein Thrombosis (DVT), Hyperlipidemia, Hypertension, Myocardial Infarction (CT), Renal Disease, Sleep Apnea/CPAP/BIPAP, Thyroid Disorder, Vascular Disorder Additional Past Medical History / Comment(s): CHF, tracheobronchitis, CKD stage III, kidney stones, DVT L leg in 2004, KAMRYN without device use, colon abscess with bowel resection, multiple abdominal surgeries for a hiatal hernia that was complicated by prolonged hospitalization and prolonged ventilator dependent r espiratory failure requiring a tracheostomy tube insertion, pvd-lower legs discolored/edematous, diverticular disease, chronic iron deficiency anemia, vertigo at times, Last Myocardial Infarction Date:: History of Any Multi-Drug Resistant Organisms: MRSA Date of last positivie culture/infection: 02/01/15 MDRO Source:: Abdomen Past Surgical History: Bowel Resection, Heart Catheterization With Stent, Hernia Repair Additional Past Surgical History / Comment(s): Colonoscopies, heart stents x 4, bowel resection with colostomy and colostomy reversal (removed a foot of pts colon)-2003, hernia repair with skin grafts and 2 fistula repairs (hospitalized for 1 year @[facility])-2010 MRSA 2015 in wounds. Past Anesthesia/Blood Transfusion Reactions: No Reported Reaction Additional Past Anesthesia/Blood Transfusion Reaction / Comment(s): Pt has received blood in past without reaction-2010 Date of Last Stent Placement:: 03/28/2015 Past Psychological History: Depression Additional Psychological History / Comment(s): PT IS DISABLED. PT LIVES WITH MOTHER AND 2 PET CATS AND 1 DOG. HOME HAS A RAMP. USES A CANE CURRENTLY-. NO OUTSIDE SERVICES RECIEVED. Smoking Status: Former smoker Past Alcohol Use History: None Reported Additional Past Alcohol Use History / Comment(s): STARTED SMOKING AGE 26, (1995) AND QUIT IN 2008. HE THEN RESUMED SMOKING IN 2015. PATIENT QUIT THIS YEAR IN NOVEMBER AND NOW SMOKES ONE TO TWO CIGARETTES A DAY. Past Drug Use History: None Reported - Past Family History Mother Family Medical History: Osteoarthritis (OA), Pneumonia Additional Family Medical History / Comment(s): osteoporosis. arthroscopy surgery for knee Father Family Medical History: Liver Disease, Renal Disease Additional Family Medical History / Comment(s): triple heart bypass. liver tr ansplant. aortic aneursym Medications and Allergies Home Medications Medication Instructions Recorded Confirmed Type Loratadine [Claritin] 10 mg PO DAILY 10/19/13 11/21/18 History Sertraline [Zoloft] 100 mg PO HS 10/19/13 11/21/18 History Nitroglycerin Sl Tabs [Nitrostat] 0.4 mg SUBLINGUAL Q5M PRN #30 tab 12/03/14 11/21/18 Rx Atorvastatin [Lipitor] 80 mg PO HS 03/25/15 11/21/18 History Folic Acid 1 mg PO BID 03/25/15 11/21/18 History Levothyroxine Sodium [Synthroid] 137 mcg PO QAM 03/25/15 11/21/18 History Budesonide/Formoterol Fumarate 2 puff INHALATION RT-BID 08/01/16 11/21/18 History [Symbicort 160-4.5 Mcg Inhaler] Allopurinol [Zyloprim] 100 mg PO DAILY 12/17/17 11/21/18 History Ergocalciferol (Vitamin D2) 50,000 unit PO MO 05/05/18 11/21/18 History [Drisdol] Ferrous Sulfate [Iron (65 MG 325 mg PO BID 05/05/18 11/21/18 History Elemental)] traMADol HCL [Ultram] 50 mg PO BID PRN 05/05/18 11/21/18 History Calcium Carbonate [Tums] 1,000 mg PO TID PRN chew 05/08/18 11/21/18 Rx Apixaban [Eliquis] 5 mg PO BID tab 06/03/18 11/21/18 Rx Diltiazem Oral [Cardizem*] 60 mg PO BID #60 tab 06/03/18 11/21/18 Rx Albuterol Inhaler [Ventolin Hfa 1 - 2 puff INHALATION RT-QID PRN 09/17/18 11/21/18 History Inhaler] Albuterol Nebulized [Ventolin 2.5 mg INHALATION RT-QID PRN 09/17/18 11/21/18 History Nebulized] Metoprolol Tartrate [Lopressor] 100 mg PO BID 09/17/18 11/21/18 History Docusate [Colace] 100 mg PO BID PRN #30 cap 09/22/18 11/21/18 Rx Furosemide [Lasix] 40 mg PO BID@0900,1600 #60 tab 09/22/18 11/21/18 Rx Potassium Chloride ER [K-Dur 20] 40 meq PO DAILY 3 Days #6 09/22/18 11/21/18 Rx tab.er.prt Insulin Detemir [Levemir Flextouch] 40 units SQ HS #100 units 10/28/18 11/21/18 Rx Metolazone [Zaroxolyn] 2.5 mg PO MOFR #0 10/28/18 11/21/18 Rx Pen Needle, Diabetic [Bd 100 each SQ DAILY #100 dis.needle 10/28/18 11/21/18 Rx Ultra-Fine Pen Needle 6mm 32G] sitaGLIPtin [Januvia] 100 mg PO DAILY #30 tab 10/28/18 11/21/18 Rx Allergies Allergy/AdvReac Type Severity Reaction Status Date / Time adhesive Allergy "PLASTIC Verified 11/21/18 16:44 TAPE PEELS SKIN,PAPER TAPE IS OK" linezolid Allergy Unknown Verified 11/21/18 16:44 penicillin G Allergy Rash/Hives Verified 11/21/18 16:44 Cephalosporins AdvReac FEVER Verified 11/21/18 16:44 Physical Exam Vitals: Vital Signs Temp Pulse Pulse Resp BP Pulse Ox 11/23/18 07:25 84 11/23/18 07:07 80 11/23/18 05:00 97.6 F 87 16 92/62 98 11/22/18 23:45 20 11/22/18 20:50 96.2 F L 96 20 118/56 96 11/22/18 20:16 88 11/22/18 20:01 88 96 11/22/18 16:00 84 16 11/22/18 12:02 98.0 F 84 16 104/60 96 11/22/18 11:51 104 H 11/22/18 11:38 98 Intake and Output 11/22/18 11/23/18 11/23/18 22:59 06:59 14:59 Intake Total 447.817 433.633 Output Total 600 Balance 447.817 -166.367 Intake: Intake, IV Titration 87.817 73.633 Amount Insulin Regular 100 unit 87.817 73.633 In Sodium Chloride 0.9% 100 ml @ Titrate IV .Q0M [facility] Rx#:[id number] Oral 360 360 Output: Urine 600 Other: # Voids 1 1 Weight 168.935 kg Results - Lab Results Most recent lab results Calcium 8.4 mg/dL (8.4-10.2) 11/22/18 07:38 Magnesium 2.0 mg/dL (1.6-2.3) 11/21/18 16:42 11/22/18 07:38 11/22/18 07:38 Assessment and Plan Plan: Assessment: 1. Acute kidney injury mostly prerenal secondary to cardiorenal syndrome. Creatinine 1.85 as of yesterday. 2. Chronic kidney disease stage III secondary to diabetic kidney disease and cardiorenal syndrome with baseline creatinine in the range of 1.4-1.7. 3. Dyspnea secondary to volume overload as well as component of tracheobronchitis as he does have a significant cough. No evidence of pneumonia noted on chest x-ray. 4. Insulin-dependent diabetes mellitus. Blood sugars have been high. 5. Diastolic CHF. 6. History of A. fib. Rate controlled. Patient is on anticoagulation. 7. Morbid obesity. Plan: Maintain IV Lasix 40 mg 3 times daily. I will change metolazone to 2.5 mg daily. Maintain low salt diet and 1500 mL fluid restriction. Daily weights. Continue to monitor renal function and urine output. Check urinalysis. Repeat electrolytes in the morning. Thank you for the consultation. I will continue to follow patient with you during his hospital stay.
[2018-11-23 08:20] LABS: Glucose,Whole Blood 205 mg/dL (75-99)
[2018-11-23 08:56] LABS: Anisocytosis Slight; Basophils % (A) 0 %; Eosinophils % (A) 0 %; HCT 37.4 % (39.0-53.0); HGB 12.2 gm/dL (13.0-17.5); Hypochromasia Slight; Lymphocytes # (A) 1.4 k/uL (1.0-4.8); Lymphocytes % (A) 14 %; MCH 28.9 pg (25.0-35.0); MCHC 32.6 g/dL (31.0-37.0); MCV 88.5 fL (80.0-100.0); Mean Platelet Volume 8.2; Monocytes # (A) 0.6 k/uL (0-1.0); Monocytes % (A) 6 %; Neutrophils # (A) 7.6 k/uL (1.3-7.7); Neutrophils % (A) 78 %; Platelet Count 182 k/uL (150-450); Poikilocytosis Slight; RBC 4.22 m/uL (4.30-5.90); RDW 18.2 % (11.5-15.5); WBC 9.8 k/uL (3.8-10.6)
[2018-11-23 09:03] LABS: Calcium 9.3 mg/dL (8.4-10.2); Potassium 3.3 mmol/L (3.5-5.1)
[2018-11-23 09:13] LABS: Glucose,Whole Blood 296 mg/dL (75-99)
[2018-11-23] MEDS: INSULIN ASPART (NovoLOG) 100 UNIT/ML VIAL SQ SCH ×3 (09:33→21:35)
[2018-11-23] MEDS: METOPROLOL TARTRATE 50 MG TAB PO SCH ×2 (09:40→21:36)
[2018-11-23] MEDS: PANTOPRAZOLE 40 MG TABLET PO SCH (09:40)
[2018-11-23] MEDS: FERROUS SULFATE 325 MG TAB PO SCH ×2 (09:40→21:35)
[2018-11-23] MEDS: APIXABAN 5 MG TAB PO SCH ×2 (09:40→21:35)
[2018-11-23] MEDS: LORATADINE 10 MG TAB PO SCH (09:40)
[2018-11-23] MEDS: POTASSIUM CHLORIDE ER 20 MEQ TAB.ER PO SCH (09:40)
[2018-11-23] MEDS: LINAGLIPTIN 5 MG TABLET PO SCH (09:41)
[2018-11-23] MEDS: ALLOPURINOL 100 MG TAB PO SCH (09:41)
[2018-11-23] MEDS: DILTIAZEM ORAL 60 MG TAB PO SCH ×2 (09:41→21:35)
[2018-11-23] MEDS: FOLIC ACID 1 MG TAB PO SCH ×2 (09:41→21:35)
[2018-11-23] MEDS: METOLAZONE 2.5 MG TAB PO SCH (09:42)
[2018-11-23 10:30] LABS: Glucose,Whole Blood 253 mg/dL (75-99)
[2018-11-23 11:12] LABS: Glucose,Whole Blood 165 mg/dL (75-99)
[2018-11-23] MEDS ORDERED: INSULIN DETEMIR (LEVEMIR) 100 UNIT/ML SYR SQ STA (11:59)
[2018-11-23 12:04] LABS: Glucose,Whole Blood 115 mg/dL (75-99)
--- NOTE | 2018-11-23 14:21 | PN ---
PROGRESS NOTE DATE OF SERVICE: 11/23/2018 A 48-year-old male who I saw yesterday in consultation. He came into the emergency room with complaints of shortness of breath. The diagnosis was likely congestive heart failure, although there may been a component of COPD as well. The patient is currently feeling a bit better today. Still very short of breath. He states when he is sitting in bed, he is not particularly short of breath but any activity, even walking a few feet causes him to become quite short of breath. The patient states he is coughing a bit. Not producing any phlegm. No fever, chills. No chest pain or chest discomfort. Chest x-ray was consistent with CHF. PHYSICAL EXAMINATION: Currently, his vital signs include temperature 97.6, heart rate 90, respiratory rate 16, blood pressure 99/65. Mean 76. 4 L saturation 96%. He appears in no acute distress. He is sitting in bed. Nasal O2 in place. HEENT examination is grossly unremarkable. NECK: Supple. Full range of motion. No neck vein distention. No adenopathy or thyromegaly. Cardiovascular examination reveals distant heart sounds. No distinct murmur noted. Heart rate about 90. S1, S2 normal. LUNGS: Bibasilar crackles. There is some very mild high-pitched expiratory wheezes as well. No rhonchi. Breath sounds diminished throughout. ABDOMEN: Obese. Bowel sounds are heard. EXTREMITIES reveal significant chronic venous stasis changes. He has got hyperpigmentation and lower extremity pitting edema. SKIN without rash. NEUROLOGIC examination is brief but nonfocal. LABS: Reviewed. White count is 9.8, hemoglobin is 12.2, hematocrit 37.4, platelet count is normal. Sodium 141, potassium 3.3, chloride 95, CO2 36, anion gap is 10. BUN and creatinine has worsened quite a bit up to 62 and 2.35 from 43 and 1.85. N terminal proBNP was quite elevated at 8150. Chest x-ray on admission showed evidence of fluid overload. Medications have been reviewed. ASSESSMENT: 1. Shortness of breath, most likely related to underlying congestive heart failure. Component of COPD is likely playing a factor as well, although a minor one at best. 2. History of chronic atrial fibrillation. 3. Coronary artery disease. 4. Chronic chest pain. 5. Deep venous thrombosis. 6. Hyperlipidemia. 7. History of hypertension. 8. Previous myocardial infarction. 9. Chronic kidney disease. 10.Sleep apnea syndrome, maintained on CPAP. 11.Hypothyroidism. 12.Previous colon surgery with colostomy and subsequent reversal. 13.Previous episode of prolonged respiratory failure requiring tracheostomy. 14.Chronic iron deficiency anemia. 15.Morbid obesity. 16.Chronic venous stasis changes and hyperpigmentation and significant peripheral edema. PLAN: The patient's medications have been adjusted. The patient's labs are reviewed. Problem list is reviewed. Currently, he is on updrafts. He is also getting Symbicort. Currently does not need any steroids. He is on oral antibiotic. We will continue to follow. He is getting Lasix 40 mg IV push q.8h. No additional recommendations are made. MMNOHEMIL / AUREAN: [id number] /
--- NOTE | 2018-11-23 16:43 | P.CRDCN ---
History of Present Illness Consult date: 11/23/18 History of present illness: This is a 48-year-old gentleman with history of ischemic heart disease with previous stent placement, chronic kidney disease, obesity, and also underlying COPD was admitted to the hospital with increasing shortness of breath. Patient denies any chest pain. Patient has been having some nonproductive cough. She denied any fever or chills. The shortness of breath seemed to be mostly with exertional activities. Patient has been treated with IV Lasix since admission here. Patient is not feeling that much improved. He denied any chest pain. His creatinine is going up. Patient was seen by nephrology and the dose of the Zaroxolyn is cut back to 2.5 mg. He is still on Lasix 40 mg IV every 8 hours. I'm going to repeat his echocardiogram. Echocardiogram previously showed preserved LV function. Further recommendation depending upon the findings on the above test. Minimal patient will continue current medical therapy Review of Systems As per the chart Past Medical History Past Medical History: Atrial Fibrillation, Asthma, Coronary Artery Disease (CAD), Chest Pain / Angina, Heart Failure, COPD, Deep Vein Thrombosis (DVT), Hyperlipidemia, Hypertension, Myocardial Infarction ([place]), Renal Disease, Sleep Apnea/CPAP/BIPAP, Thyroid Disorder, Vascular Disorder Additional Past Medical History / Comment(s): CHF, tracheobronchitis, CKD stage III, kidney stones, DVT L leg in 2004, KAMRYN without device use, colon abscess with bowel resection, multiple abdominal surgeries for a hiatal hernia that was complicated by prolonged hospitalization and prolonged ventilator dependent respiratory failure requiring a tracheostomy tube insertion, pvd-lower legs discolored/edematous, diverticular disease, chronic iron deficiency anemia, vertigo at times, Last Myocardial Infarction Date:: History of Any Multi-Drug Resistant Organisms: MRSA Date of last positivie culture/infection: 02/01/15 MDRO Source:: Abdomen Past Surgical History: Bowel Resection, Heart Catheterization With Stent, Hernia Repair Additional Past Surgical History / Comment(s): Colonoscopies, heart stents x 4, bowel resection with colostomy and colostomy reversal (removed a foot of pts colon)-2003, hernia repair with skin grafts and 2 fistula repairs (hospitalized for 1 year @[facility])-2010 MRSA 2015 in wounds. Past Anesthesia/Blood Transfusion Reactions: No Reported Reaction Additional Past Anesthesia/Blood Transfusion Reaction / Comment(s): Pt has received blood in past without reaction-2010 Date of Last Stent Placement:: 03/28/2015 Past Psychological History: Depression Additional Psychological History / Comment(s): PT IS DISABLED. PT LIVES WITH MOTHER AND 2 PET CATS AND 1 DOG. HOME HAS A RAMP. USES A CANE CURRENTLY-. NO OUTSIDE SERVICES RECIEVED. Smoking Status: Former smoker Past Alcohol Use History: None Reported Additional Past Alcohol Use History / Comment(s): STARTED SMOKING AGE 26, (1995) AND QUIT IN 2008. HE THEN RESUMED SMOKING IN 2015. PATIENT QUIT THIS YEAR IN NOVEMBER AND NOW SMOKES ONE TO TWO CIGARETTES A DAY. Past Drug Use History: None Reported - Past Family History Mother Family Medical History: Osteoarthritis (OA), Pneumonia Additional Family Medical History / Comment(s): osteoporosis. arthroscopy surgery for knee Father Family Medical History: Liver Disease, Renal Disease Additional Family Medical History / Comment(s): triple heart bypass. liver transplant. aortic aneursym Medications and Allergies Home Medications Medication Instructions Recorded Confirmed Type Loratadine [Claritin] 10 mg PO DAILY 10/19/13 11/21/18 History Sertraline [Zoloft] 100 mg PO HS 10/19/13 11/21/18 History Nitroglycerin Sl Tabs [Nitrostat] 0.4 mg SUBLINGUAL Q5M PRN #30 tab 12/03/14 11/21/18 Rx Atorvastatin [Lipitor] 80 mg PO HS 03/25/15 11/21/18 History Folic Acid 1 mg PO BID 03/25/15 11/21/18 History Levothyroxine Sodium [Synthroid] 137 mcg PO QAM 03/25/15 11/21/18 History Budesonide/Formoterol Fumarate 2 puff INHALATION RT-BID 08/01/16 11/21/18 History [Symbicort 160-4.5 Mcg Inhaler] Allopurinol [Zyloprim] 100 mg PO DAILY 12/17/17 11/21/18 History Ergocalciferol (Vitamin D2) 50,000 unit PO MO 05/05/18 11/21/18 History [Drisdol] Ferrous Sulfate [Iron (65 MG 325 mg PO BID 05/05/18 11/21/18 History Elemental)] traMADol HCL [Ultram] 50 mg PO BID PRN 05/05/18 11/21/18 History Calcium Carbonate [Tums] 1,000 mg PO TID PRN chew 05/08/18 11/21/18 Rx Apixaban [Eliquis] 5 mg PO BID tab 06/03/18 11/21/18 Rx Diltiazem Oral [Cardizem*] 60 mg PO BID #60 tab 06/03/18 11/21/18 Rx Albuterol Inhaler [Ventolin Hfa 1 - 2 puff INHALATION RT-QID PRN 09/17/18 11/21/18 History Inhaler] Albuterol Nebulized [Ventolin 2.5 mg INHALATION RT-QID PRN 09/17/18 11/21/18 History Nebulized] Metoprolol Tartrate [Lopressor] 100 mg PO BID 09/17/18 11/21/18 History Docusate [Colace] 100 mg PO BID PRN #30 cap 09/22/18 11/21/18 Rx Furosemide [Lasix] 40 mg PO BID@0900,1600 #60 tab 09/22/18 11/21/18 Rx Potassium Chloride ER [K-Dur 20] 40 meq PO DAILY 3 Days #6 09/22/18 11/21/18 Rx tab.er.prt Insulin Detemir [Levemir Flextouch] 40 units SQ HS #100 units 10/28/18 11/21/18 Rx Metolazone [Zaroxolyn] 2.5 mg PO MOFR #0 10/28/18 11/21/18 Rx Pen Needle, Diabetic [Bd 100 each SQ DAILY #100 dis.needle 10/28/18 11/21/18 Rx Ultra-Fine Pen Needle 6mm 32G] sitaGLIPtin [Januvia] 100 mg PO DAILY #30 tab 10/28/18 11/21/18 Rx Allergies Allergy/AdvReac Type Severity Reaction Status Date / Time adhesive Allergy "PLASTIC Verified 11/21/18 16:44 TAPE PEELS SKIN,PAPER TAPE IS OK" linezolid Allergy Unknown Verified 11/21/18 16:44 penicillin G Allergy Rash/Hives Verified 11/21/18 16:44 Cephalosporins AdvReac FEVER Verified 11/21/18 16:44 Physical Exam Vitals: Vital Signs Temp Pulse Pulse Resp BP Pulse Ox 11/23/18 14:44 90 16 11/23/18 12:45 97.6 F 90 16 99/65 96 11/23/18 11:52 84 11/23/18 11:38 88 11/23/18 08:00 87 16 11/23/18 07:25 84 11/23/18 07:07 80 11/23/18 05:00 97.6 F 87 16 92/62 98 11/22/18 23:45 20 11/22/18 20:50 96.2 F L 96 20 118/56 96 11/22/18 20:16 88 11/22/18 20:01 88 96 Intake and Output 11/23/18 11/23/18 11/23/18 06:59 14:59 22:59 Intake Total 739.358 6392.550 Output Total 600 3000 Balance -166.367 -1769.450 Intake: Intake, IV Titration 73.633 40.550 Amount Insulin Regular 100 unit 73.633 40.550 In Sodium Chloride 0.9% 100 ml @ Titrate IV .Q0M [facility] Rx#:[id number] Oral 360 1190 Output: Urine 600 3000 Other: # Voids 1 1 Weight 168.935 kg GENERAL EXAM: Patient is alert and oriented and doesn't appear to be in any acute distress HEENT: Normocephalic. Normal reaction of pupils, equal size, normal range of extraocular motion. No erythema or exudates in the throat. NECK: No masses, no nuchal rigidity. CHEST: No chest wall deformity. LUNGS: Scattered rhonchi HEART: S1 and S2 normal. Distant heart sounds. Irregular heart rhythm ABDOMEN: No hepatosplenomegaly, normal bowel sounds, no guarding or rigidity. SKIN: No rashes CENTRAL NERVOUS SYSTEM: No focal deficits. EXTREMITIES: No cyanosis, clubbing or edema. Results 11/23/18 08:21 11/23/18 08:21 CBC 11/23/18 Range/Units 08:21 WBC 9.8 (3.8-10.6) k/uL RBC 4.22 L (4.30-5.90) m/uL Hgb 12.2 L (13.0-17.5) gm/dL Hct 37.4 L (39.0-53.0) % Plt Count 182 (150-450) k/uL Comprehensive Metabolic Panel 11/23/18 Range/Units 08:21 Sodium 141 (137-145) mmol/L Potassium 3.3 L (3.5-5.1) mmol/L Chloride 95 L (98-107) mmol/L Carbon Dioxide 36 H (22-30) mmol/L BUN 62 H (9-20) mg/dL Creatinine 2.35 H (0.66-1.25) mg/dL Glucose 179 H (74-99) mg/dL Calcium 9.3 (8.4-10.2) mg/dL Current Medications Generic Name Dose Route Start Last Admin Trade Name Freq PRN Reason Stop Dose Admin Acetaminophen 650 mg 11/21/18 18:55 Tylenol Tab PO Q6HR PRN Mild Pain or Fever > 100.5 Albuterol/Ipratropium 3 ml 11/22/18 05:31 Duoneb 0.5 Mg-3 Mg/3 Ml Soln INHALATION RT-QID PRN Shortness Of Breath Or Wheezing Albuterol/Ipratropium 3 ml 11/22/18 08:00 11/23/18 16:02 Duoneb 0.5 Mg-3 Mg/3 Ml Soln INHALATION Not Given RT-QID [facility] Allopurinol 100 mg 11/22/18 09:00 11/23/18 09:41 Zyloprim PO 100 mg DAILY [facility] Administration Apixaban 5 mg 11/21/18 21:00 11/23/18 09:40 Eliquis PO 5 mg BID [facility] Administration Atorvastatin Calcium 80 mg 11/22/18 21:00 11/22/18 20:13 Lipitor PO 80 mg HS [facility] Administration Budesonide/Formoterol Fumarate 2 puff 11/22/18 08:00 11/23/18 07:07 Symbicort 160-4.5 Mcg Inhaler INHALATION 2 puff RT-BID [facility] Administration Calcium Carbonate/Glycine 1,000 mg 11/21/18 18:56 Tums PO TID PRN Heartburn Diltiazem HCl 60 mg 11/21/18 21:00 11/23/18 09:41 Cardizem Oral PO 60 mg BID [facility] Administration Docusate Sodium 100 mg 11/22/18 01:50 11/22/18 20:13 Colace PO 100 mg BID PRN Administration Constipation Ergocalciferol 50,000 unit 11/24/18 09:00 Vitamin D2 PO Mo@0900 [facility] Ferrous Sulfate 325 mg 11/22/18 09:00 11/23/18 09:40 Feosol PO 325 mg BID [facility] Administration Folic Acid 1 mg 11/22/18 09:00 11/23/18 09:41 Folic Acid PO 1 mg BID [facility] Administration Furosemide 40 mg 11/22/18 08:00 11/23/18 16:37 Lasix IV 40 mg Q8HR [facility] Administration Insulin Aspart 0 unit 11/23/18 17:30 Novolog SQ ACHS [facility] Protocol Insulin Detemir 40 unit 11/23/18 21:00 Levemir SQ HS [facility] Levofloxacin 500 mg 11/24/18 09:00 Levaquin PO DAILY [facility] Levothyroxine Sodium 137 mcg 11/22/18 06:30 11/23/18 06:10 Synthroid PO 137 mcg QAM@0630 [facility] Administration Linagliptin 5 mg 11/22/18 09:00 11/23/18 09:41 Tradjenta PO 5 mg DAILY [facility] Administration Loratadine 10 mg 11/22/18 09:00 11/23/18 09:40 Claritin PO 10 mg DAILY [facility] Administration Metolazone 2.5 mg 11/23/18 09:00 11/23/18 09:42 Zaroxolyn PO 2.5 mg DAILY [facility] Administration Metoprolol Tartrate 100 mg 11/21/18 21:00 11/23/18 09:40 Lopressor PO 100 mg BID [facility] Administration Naloxone HCl 0.2 mg 11/21/18 18:55 Narcan IV Q2M PRN Opioid Reversal Nitroglycerin 0.4 mg 11/21/18 18:56 Nitrostat SUBLINGUAL Q5M PRN Chest Pain Pantoprazole Sodium 40 mg 11/22/18 07:30 11/23/18 09:40 Protonix PO 40 mg AC-BRKFST [facility] Administration Potassium Chloride 40 meq 11/22/18 09:00 11/23/18 09:40 K-Dur 20 PO 40 meq DAILY [facility] Administration Sertraline HCl 100 mg 11/22/18 21:00 11/22/18 20:14 Zoloft PO 100 mg HS [facility] Administration Tramadol HCl 50 mg 11/21/18 18:56 11/22/18 20:13 Ultram PO 50 mg BID PRN Administration Pain Intake and Output 11/23/18 11/23/18 11/23/18 06:59 14:59 22:59 Intake Total 180.388 2860.550 Output Total 600 3000 Balance -166.367 -1769.450 Intake: Intake, IV Titration 73.633 40.550 Amount Insulin Regular 100 unit 73.633 40.550 In Sodium Chloride 0.9% 100 ml @ Titrate IV .Q0M [facility] Rx#:[id number] Oral 360 1190 Output: Urine 600 3000 Other: # Voids 1 1 Weight 168.935 kg 11/23/18 08:21 11/23/18 08:21 EKG Interpretations (text) Showed atrial flutter/fibrillation with controlled ventricular response Assessment and Plan (1) Acute on chronic diastolic CHF (congestive heart failure) Current Visit: Yes Status: Acute Code(s): I50.33 - ACUTE ON CHRONIC DIASTOLIC (CONGESTIVE) HEART FAILURE SNOMED Code(s): 992935029 (2) Acute exacerbation of chronic obstructive airways disease Current Visit: No Status: Acute Code(s): J44.1 - CHRONIC OBSTRUCTIVE PULMONARY DISEASE W (ACUTE) EXACERBATION SNOMED Code(s): 690756839 (3) Atrial fibrillation Current Visit: No Status: Acute Code(s): I48.91 - UNSPECIFIED ATRIAL FIBRILLATION SNOMED Code(s): 38245858 (4) Ischemic heart disease Current Visit: No Status: Acute Code(s): I25.9 - CHRONIC ISCHEMIC HEART DISEASE, UNSPECIFIED SNOMED Code(s): 132574423 Plan: Patient will continue with current medical therapy. We'll follow his renal functions closely. I'll repeat his echocardiogram to assess LV function and rule out any valvular abnormalities. Further examination depend upon the clinical course. Nephrology and also pulmonary also following the patient
[2018-11-23 17:05] LABS: Glucose,Whole Blood 169 mg/dL (75-99)
[2018-11-23] MEDS: traMADol 50 MG TAB PO PRN (17:25)
--- NOTE | 2018-11-23 18:17 | PN ---
PROGRESS NOTE DATE OF SERVICE: 11/23/2018. This 48-year-old gentleman who was admitted with multiple medical problems including shortness of breath also had CHF and COPD acute exacerbation. The patient is being closely monitored. No chest pain. No palpitations. No fever. Multiple consultants are following the patient closely. Currently creatinine is elevated to 2.35. Nephrology has also seen the patient. Patient also had elevated blood sugars being controlled by IV insulin drip. PAST MEDICAL HISTORY: Reviewed. REVIEW OF SYSTEMS: CARDIOVASCULAR: No angina or palpitations. RESPIRATION: As mentioned earlier. GI as mentioned earlier. : No dysuria. CENTRAL NERVOUS SYSTEM: No numbness or weakness. MEDICATIONS: Current medications are: 1. Tylenol 650 p.r.n. 2. DuoNeb q.i.d. p.r.n. 3. Zyloprim 100 mg daily. 4. Eliquis 5 mg p.o. b.i.d. 5. Lipitor 80 mg q.h.s. 6. Symbicort b.i.d. 7. Tums. 8. Cardizem CD 60 mg b.i.d. 9. Colace 100 mg b.i.d. 10.Vitamin B12 59587. 11.Iron sulfate 320 mg b.i.d. 12.Folic acid. 13.Lasix 40 mg IV q.8h. 14.Levemir. 15.Levaquin. 16.Synthroid. 17.Tradjenta. 18.Claritin. 19.Zaroxolyn. 20.Narcan. 21.Nitrostat. 22.Protonix. 23.K-Dur. 24.Zoloft. 25.Ultram. PHYSICAL EXAM: Patient is alert and oriented times three. Pulse 90. Blood pressure 99/64, respirations 16, temperature 97.2, pulse ox 97% on 4 L. HEENT: Conjunctivae normal. Oral mucosa moist. NECK is no jugular venous distention. No carotid bruit. No lymph node enlargement. CARDIOVASCULAR systems: S1, S2. RESPIRATION: Breath sounds diminished in the bases. Bilateral scattered rhonchi and crackles. ABDOMEN: Soft, obese, nontender. LEGS: Bilateral leg edema. NERVOUS SYSTEM: No focal deficits. LABS: At this time shows WBC 9.2, hemoglobin 12.2. Sodium 141, potassium 3.3, creatinine is 2.35 and glucose noted. The previous creatinine was 1.85. ASSESSMENT: 1. Shortness of breath possibly multifactorial, chronic obstructive pulmonary disease acute exacerbation as well as congestive heart failure exacerbation with acute on chronic diastolic dysfunction. 2. Possible acute purulent tracheobronchitis. 3. Atrial fibrillation. 4. History of asthma. 5. Diabetes type 2 uncontrolled with hyperglycemia. 6. History of coronary artery disease. 7. Congestive heart failure. 8. History of chronic obstructive pulmonary disease. 9. History of deep vein thrombosis. 10.Hypertension. 11.Hyperlipidemia. 12.History of myocardial infarction. 13.History of sleep apnea. 14.History of chronic kidney stage III. 15.History of degenerative joint disease. 16.History of colonic abscess with bowel resection. 17.History of coronary artery disease, stent. 18.History of prolonged respiratory failure. 19.History of depression. 20.Gait dysfunction. 21.Morbid obesity with body mass index of 52.3. 22.FULL CODE. RECOMMENDATIONS AND DISCUSSION: Continue current medications, management. Symptomatic treatment. Continue with bronchodilators. Monitor blood sugars closely. I would recommend initiate home dose of Levemir and 20 units may be given now and stop the drip and continue to monitor. Otherwise, continue with Lasix. Nephrology has seen the patient also. We will closely follow. Prognosis guarded because of multiple complex medical issues. Further recommendations to follow. MMODL / IJN: [id number] /
[2018-11-23 20:59] LABS: Glucose,Whole Blood 216 mg/dL (75-99)
[2018-11-23] MEDS: ATORVASTATIN 80 MG TAB PO SCH (21:35)
[2018-11-23] MEDS: INSULIN DETEMIR (LEVEMIR) 100 UNIT/ML SYR SQ SCH (21:36)
[2018-11-23] MEDS: SERTRALINE 100 MG TAB PO SCH (21:37)
[2018-11-24 01:48] LABS: Glucose,Whole Blood 119 mg/dL (75-99)
[2018-11-24] MEDS: LEVOTHYROXINE 137 MCG TAB PO SCH (05:43)
[2018-11-24 06:20] LABS: Appearance,Urine Clear (Clear); Bilirubin,Urine Negative (Negative); Blood,Urine Negative (Negative); Color,Urine Light Yellow; Glucose,Urine (UA) Negative (Negative); Ketones,Urine Negative (Negative); Leukocyte Esterase,Urine Negative (Negative); Nitrite,Urine Negative (Negative); Protein,Urine Negative (Negative); Specific Gravity,Urine 1.006 (1.001-1.035); Urobilinogen,Urine <2.0 mg/dL (<2.0)
[2018-11-24 06:56] LABS: Glucose,Whole Blood 137 mg/dL (75-99)
[2018-11-24] MEDS: INSULIN ASPART (NovoLOG) 100 UNIT/ML VIAL SQ SCH ×4 (08:18→21:28)
[2018-11-24] MEDS: ALLOPURINOL 100 MG TAB PO SCH (08:18)
[2018-11-24] MEDS: FUROSEMIDE 10 MG/ML 4 ML VIAL IV SCH (08:18)
[2018-11-24] MEDS: FOLIC ACID 1 MG TAB PO SCH ×2 (08:18→21:28)
[2018-11-24] MEDS: PANTOPRAZOLE 40 MG TABLET PO SCH (08:18)
[2018-11-24] MEDS: LORATADINE 10 MG TAB PO SCH (08:18)
[2018-11-24] MEDS: METOLAZONE 2.5 MG TAB PO SCH (08:21)
[2018-11-24] MEDS: DILTIAZEM ORAL 60 MG TAB PO SCH ×2 (08:21→21:28)
[2018-11-24] MEDS: LINAGLIPTIN 5 MG TABLET PO SCH (08:21)
[2018-11-24] MEDS: FERROUS SULFATE 325 MG TAB PO SCH ×2 (08:21→21:28)
[2018-11-24] MEDS: APIXABAN 5 MG TAB PO SCH ×2 (08:21→21:28)
[2018-11-24] MEDS: METOPROLOL TARTRATE 50 MG TAB PO SCH ×2 (08:21→21:29)
[2018-11-24] MEDS: POTASSIUM CHLORIDE ER 20 MEQ TAB.ER PO SCH ×3 (08:21→17:25)
[2018-11-24 08:25] LABS: Anisocytosis Slight; Basophils % (A) 1 %; Eosinophils # (A) 0.2 k/uL (0-0.7); Eosinophils % (A) 3 %; HCT 40.9 % (39.0-53.0); HGB 13.2 gm/dL (13.0-17.5); Hypochromasia Slight; Lymphocytes # (A) 1.4 k/uL (1.0-4.8); Lymphocytes % (A) 18 %; MCH 28.2 pg (25.0-35.0); MCHC 32.2 g/dL (31.0-37.0); MCV 87.5 fL (80.0-100.0); Mean Platelet Volume 8.2; Monocytes # (A) 0.5 k/uL (0-1.0); Monocytes % (A) 6 %; Neutrophils # (A) 5.6 k/uL (1.3-7.7); Neutrophils % (A) 71 %; Platelet Count 207 k/uL (150-450); Poikilocytosis Slight; RBC 4.68 m/uL (4.30-5.90); RDW 18.2 % (11.5-15.5); WBC 7.9 k/uL (3.8-10.6)
[2018-11-24] MEDS: traMADol 50 MG TAB PO PRN ×2 (08:33→21:30)
[2018-11-24 08:47] LABS: Calcium 9.7 mg/dL (8.4-10.2); Magnesium 1.9 mg/dL (1.6-2.3); Potassium 3.4 mmol/L (3.5-5.1)
--- NOTE | 2018-11-24 08:56 | P.PN ---
Subjective This is a pleasant 48 years old male with past medical history of heart failure that follow-up with Dr. Wood in the outpatient setting, atrial fibrillation on anticoagulation and Eliquis, deep venous thrombosis, hyperlipidemia, hypertension, coronary artery disease, obesity, sleep apnea on CPAP/BiPAP, chronic kidney disease stage III, kidney stones, asthma and COPD. Ex-smoker where he used to smoke about 1 pack per day for 20 years, quit June 2018. Patient presents this time with exertional dyspnea and found to have acute congestive heart failure and acute kidney injury, patient has been evaluated by pulmonary and nephrology team. Patient currently on parenteral Lasix 40 mg 3 times per day plus Zaroxolyn, he is also on Levaquin and Eliquis and Levemir insulin. It looks like his pain is controlled and the breathing looks better, however he has scattered wheezing. We will lower his IV Lasix to 40 mg twice a day and put him on prednisone 40 mg. Patient was on home oxygen at 3 L/m, currently is on 4 L. Echocardiogram: Pending Objective - Vital Signs Vital signs: Vital Signs Temp 98.1 F 11/24/18 05:00 Pulse 86 11/24/18 05:00 Resp 18 11/24/18 05:00 BP 92/60 11/24/18 05:00 Pulse Ox 96 11/24/18 05:00 Intake & Output 11/23/18 11/24/18 11/24/18 18:59 06:59 18:59 Intake Total 1452.550 60 Output Total 3000 3000 Balance -1547.450 -2940 Weight 165.2 kg Intake: Intake, IV Titration 40.550 Amount Insulin Regular 100 unit 40.550 In Sodium Chloride 0.9% 100 ml @ Titrate IV .Q0M [facility] Rx#:[id number] Oral 1412 60 Output: Urine 3000 3000 Other: Voiding Method Urinal # Voids 1 1 # Bowel Movements 1 - Exam GENERAL: The patient is alert and oriented x3, not in any acute distress. Obese HEENT: Pupils are round and equally reacting to light. EOMI. No scleral icterus. No conjunctival pallor. Normocephalic, atraumatic. No pharyngeal erythema. No thyromegaly. CARDIOVASCULAR: S1 and S2 present. No murmurs, rubs, or gallops. -PULMONARY: Chest is clear to auscultation, no crackles. Bilateral scattered wheezing ABDOMEN: Soft, nontender, nondistended, normoactive bowel sounds. No palpable organomegaly. MUSCULOSKELETAL: No joint swelling or deformity. EXTREMITIES: No cyanosis, clubbing, or pedal edema. NEUROLOGICAL: Gross neurological examination did not reveal any focal deficits. SKIN: No rashes. - Labs CBC & Chem 7: 11/24/18 07:37 11/23/18 08:21 Labs: Abnormal Lab Results - Last 24 Hours (Table) 11/23/18 11/23/18 11/23/18 Range/Units 08:21 08:21 09:11 RBC 4.22 L (4.30-5.90) m/uL Hgb 12.2 L (13.0-17.5) gm/dL Hct 37.4 L (39.0-53.0) % RDW 18.2 H (11.5-15.5) % Potassium 3.3 L (3.5-5.1) mmol/L Chloride 95 L (98-107) mmol/L Carbon Dioxide 36 H (22-30) mmol/L BUN 62 H (9-20) mg/dL Creatinine 2.35 H (0.66-1.25) mg/dL Glucose 179 H (74-99) mg/dL POC Glucose (mg/dL) 296 H (75-99) mg/dL 11/23/18 11/23/18 11/23/18 Range/Units 10:29 11:10 12:03 RBC (4.30-5.90) m/uL Hgb (13.0-17.5) gm/dL Hct (39.0-53.0) % RDW (11.5-15.5) % Potassium (3.5-5.1) mmol/L Chloride (98-107) mmol/L Carbon Dioxide (22-30) mmol/L BUN (9-20) mg/dL Creatinine (0.66-1.25) mg/dL Glucose (74-99) mg/dL POC Glucose (mg/dL) 253 H 165 H 115 H (75-99) mg/dL 11/23/18 11/23/18 11/24/18 Range/Units 17:04 20:57 01:46 RBC (4.30-5.90) m/uL Hgb (13.0-17.5) gm/dL Hct (39.0-53.0) % RDW (11.5-15.5) % Potassium (3.5-5.1) mmol/L Chloride (98-107) mmol/L Carbon Dioxide (22-30) mmol/L BUN (9-20) mg/dL Creatinine (0.66-1.25) mg/dL Glucose (74-99) mg/dL POC Glucose (mg/dL) 169 H 216 H 119 H (75-99) mg/dL 11/24/18 11/24/18 Range/Units 06:55 07:37 RBC (4.30-5.90) m/uL Hgb (13.0-17.5) gm/dL Hct (39.0-53.0) % RDW 18.2 H (11.5-15.5) % Potassium (3.5-5.1) mmol/L Chloride (98-107) mmol/L Carbon Dioxide (22-30) mmol/L BUN (9-20) mg/dL Creatinine (0.66-1.25) mg/dL Glucose (74-99) mg/dL POC Glucose (mg/dL) 137 H (75-99) mg/dL Assessment and Plan Assessment: Acute on chronic congestive heart failure, ejection fraction is pending Acute kidney injury Chronic kidney disease, stage III Acute COPD exacerbation History of atrial fibrillation on Eliquis Chronic hypoxic respiratory failure Hypertension History of hyperlipidemia History of DVT on Eliquis Obesity Sleep apnea on CPAP/BiPAP History of kidney stone Next a smoker, quit earlier this year. Generalized weakness Plan: This is a pleasant 48 years old male who presents with acute CHF and renal fail ure. Continue with diuretic. Continue with anticoagulation. Follow-up recommendation from pulmonary and nephrology teams.Labs and medication were reviewed.. Continue same treatment. Continue with symptomatic treatment. Resume home medication. Monitor lytes and vitals. DVT and GI prophylaxis. Further recommendations of the clinical course of the patient DVT prophylaxis: Eliquis GI Prophylaxis: Protonix PT/OT: Pending Prognosis is guarded
[2018-11-24] MEDS ORDERED: FUROSEMIDE 10 MG/ML 4 ML VIAL IV SCH (09:00)
[2018-11-24] MEDS ORDERED: LEVOFLOXACIN 500 MG TAB PO SCH (09:00)
[2018-11-24] MEDS ORDERED: ERGOCALCIFEROL 50,000 UNIT CAP PO SCH (09:00)
[2018-11-24] MEDS: IPRATROPIUM-ALBUTEROL 3 ML NEB INHALATION SCH ×4 (09:19→19:42)
[2018-11-24] MEDS: SYMBICORT 160-4.5 MCG INHALER INHALATION SCH ×2 (09:19→19:42)
[2018-11-24 11:34] LABS: Glucose,Whole Blood 203 mg/dL (75-99)
[2018-11-24] MEDS: predniSONE 20 MG TAB PO SCH (12:35)
--- NOTE | 2018-11-24 12:59 | P.PN ---
Subjective This is a pleasant 48-year-old male past medical history significant for chronic persistent atrial fibrillation on fdc anticoagulation, coronary artery disease s/p stent placement to the circumflex 2015, prior stent placement to LAD and occluded RCA, chronic kidney disease, hypertension, dyslipidemia, COPD and morbid obesity. He follows in the office with Dr. Wood. He is currently being treated for heart failure and exacerbation of COPD. Maintained on IV lasix. Laboratory data reviewed, WBC 7.9, hemoglobin 13.2, platelets 207, sodium 141, potassium 3.4, creatinine 2.25 with a GFR 33, magnesium 1.9. Blood pressure 110/71 heart rate 96 afebrile maintaining oxygen saturation on nasal cannula. Maintaining a negative fluid balance and weight is down 3 kg. GENERAL: Well-appearing, well-nourished and in no acute distress. Morbidly obese. NECK: Supple without JVD or thyromegaly. LUNGS: Scattered course rhonchi, expiratory wheezes, no rales. Respiration equal and unlabored. HEART: Irregular rate and rhythm with murmur at the base, no rubs or gallops. S1 and S2 heard. EXTREMITIES: Normal range of motion, chronic lower extremity non-pitting edema and discoloration bilaterally. No clubbing or cyanosis. Peripheral pulses intact. ASSESSMENT Acute on chronic diastolic heart failure Acute exacerbation of COPD Chronic hypoxic respiratory failure uses home oxygen Acute on chronic renal failure Obstructive sleep apnea History of coronary artery disease Hypertension Chronic persistent atrial fibrillation on termination clerk anticoagulation Dyslipidemia Morbid obesity PLAN Transition to oral diuretics, 40 mg BID, due to worsening renal function. Echocardiogram has been obtained and will be reviewed. Ongoing medical management. Nurse Practitioner note has been reviewed, I agree with a documented findings and plan of care. Patient was seen and examined. Objective - Vital Signs Vital signs: Vital Signs Temp 98.9 F 11/24/18 12:05 Pulse 93 11/24/18 12:05 Resp 17 11/24/18 12:05 BP 110/71 11/24/18 12:05 Pulse Ox 96 11/24/18 12:05 Intake & Output 11/23/18 11/24/18 11/24/18 18:59 06:59 18:59 Intake Total 1452.550 60 Output Total 3000 3000 Balance -1547.450 -2940 Weight 165.2 kg Intake: Intake, IV Titration 40.550 Amount Insulin Regular 100 unit 40.550 In Sodium Chloride 0.9% 100 ml @ Titrate IV .Q0M [facility] Rx#:[id number] Oral 1412 60 Output: Urine 3000 3000 Other: Voiding Method Urinal # Voids 1 1 # Bowel Movements 1 - Labs CBC & Chem 7: 11/24/18 07:37 11/24/18 07:37 Labs: Abnormal Lab Results - Last 24 Hours (Table) 11/23/18 11/23/18 11/24/18 Range/Units 17:04 20:57 01:46 RDW (11.5-15.5) % Potassium (3.5-5.1) mmol/L Chloride (98-107) mmol/L Carbon Dioxide (22-30) mmol/L BUN (9-20) mg/dL Creatinine (0.66-1.25) mg/dL Glucose (74-99) mg/dL POC Glucose (mg/dL) 169 H 216 H 119 H (75-99) mg/dL 11/24/18 11/24/18 11/24/18 Range/Units 06:55 07:37 07:37 RDW 18.2 H (11.5-15.5) % Potassium 3.4 L (3.5-5.1) mmol/L Chloride 91 L (98-107) mmol/L Carbon Dioxide 39 H (22-30) mmol/L BUN 67 H (9-20) mg/dL Creatinine 2.25 H (0.66-1.25) mg/dL Glucose 122 H (74-99) mg/dL POC Glucose (mg/dL) 137 H (75-99) mg/dL 11/24/18 Range/Units 11:32 RDW (11.5-15.5) % Potassium (3.5-5.1) mmol/L Chloride (98-107) mmol/L Carbon Dioxide (22-30) mmol/L BUN (9-20) mg/dL Creatinine (0.66-1.25) mg/dL Glucose (74-99) mg/dL POC Glucose (mg/dL) 203 H (75-99) mg/dL
[2018-11-24] MEDS ORDERED: Potassium Replacement Protocol 1 EACH MISC MISCELLANE PRN (14:16)
[2018-11-24] MEDS: FUROSEMIDE 40 MG TAB PO SCH (15:50)
--- NOTE | 2018-11-24 15:55 | PN ---
PROGRESS NOTE The patient is seen for followup for acute kidney injury, which is mainly cardiorenal. Patient is currently being diuresed. He states that he feels slits slightly better than then on admission. However, he is complaining of weakness and pain in his legs this morning. No significant shortness of breath. PHYSICAL EXAMINATION: On examination, blood pressure was 92/60, heart rate 88 per minute. Patient is afebrile. Examination of the heart S1, S2. Examination of the lungs, bilateral breath sounds are heard. Distant breath sounds. ABDOMEN: Soft. Morbidly obese. Examination of lower extremities shows chronic skin changes. No significant edema is noted. LAB: Show sodium 141, potassium 3.4, BUN 67, serum creatinine 2.25. UA is completely benign. ASSESSMENT: 1. Acute kidney injury associated with recent diuresis. Lasix has been changed to p.o., which is appropriate. Patient is also maintained on Zaroxolyn. 2. Morbid obesity. 3. Fluid overload, currently improved. 4. Diastolic congestive heart failure, acute on top of chronic. 5. Chronic kidney disease stage 3 secondary to diabetic kidney disease and cardiorenal syndrome. Baseline creatinine 1.4-1.7 mg/dL. 6. History of atrial fibrillation, controlled ventricular response, maintained on anticoagulation. PLAN: Switch to oral Lasix. Continue with Zaroxolyn. Repeat labs in a.m. Continue to avoid nephrotoxic agents. Replace potassium. MMODL / IJN: [id number] /
--- NOTE | 2018-11-24 16:08 | P.PN ---
Subjective Progress Note Date: 11/24/18 Principal diagnosis: Shortness of breath related to acute exacerbation of congestive heart failure, and underlying COPD. Number 11/24/2016 patient seen in follow-up on medical surgical floor. She is sitting up in the chair, in no acute distress, currently on 4 L of oxygen per nasal cannula, with pulse ox of 96%. Hemodynamically patient is stable, afebrile, he remains on IV Lasix, and his weight is down 3.7 kg in the last 24 hours. His labs have been reviewed, showing white blood cell count of 7.9, hemoglobin 13.2, serum sodium of 141, potassium is 3.4, chloride is 91, CO2 is 29, BUN 67, creatinine is 2.25. He has occasional nonproductive cough, overall his breathing is improving. Lung sounds are diminished breath sounds. Positive chest pain. Cardiology is following, and is planning to transition the patient to oral diuretics due to worsening renal failure. Objective - Vital Signs Vital signs: Vital Signs Temp 98.9 F 11/24/18 12:05 Pulse 93 11/24/18 12:05 Resp 17 11/24/18 12:05 BP 110/71 11/24/18 12:05 Pulse Ox 96 11/24/18 12:05 Intake & Output 11/23/18 11/24/18 11/24/18 18:59 06:59 18:59 Intake Total 1452.550 60 200 Output Total 3000 3000 400 Balance -1547.450 -2940 -200 Weight 165.2 kg Intake: Intake, IV Titration 40.550 Amount Insulin Regular 100 unit 40.550 In Sodium Chloride 0.9% 100 ml @ Titrate IV .Q0M [facility] Rx#:[id number] Oral 1412 60 200 Output: Urine 3000 3000 400 Other: Voiding Method Urinal Urinal # Voids 1 1 # Bowel Movements 1 - Exam GENERAL EXAM: Alert, pleasant, morbidly obese 48-year-old white male, currently on 4 L of oxygen with a pulse ox of 96%, comfortable in no apparent distress. HEAD: Normocephalic/atraumatic. EYES: Normal reaction of pupils, equal size. Conjunctiva pink, sclera white. NOSE: Clear with pink turbinates. THROAT: No erythema or exudates. NECK: No masses, no JVD, no thyroid enlargement, no adenopathy. CHEST: No chest wall deformity. Symmetrical expansion. LUNGS: Equal air entry with no crackles, wheeze, rhonchi or dullness. CVS: Regular rate and rhythm, normal S1 and S2, no gallops, no murmurs, no rubs ABDOMEN: Soft, nontender. No hepatosplenomegaly, normal bowel sounds, no guarding or rigidity. EXTREMITIES: No clubbing, chronic venous stasis in lower extremities no cy anosis, 2+ pulses and upper and lower extremities. MUSCULOSKELETAL: Muscle strength and tone normal. SPINE: No scoliosis or deformity SKIN: No rashes CENTRAL NERVOUS SYSTEM: Alert and oriented -3. No focal deficits, tone is normal in all 4 extremities. PSYCHIATRIC: Alert and oriented -3. Appropriate affect. Intact judgment and insight. - Labs CBC & Chem 7: 11/24/18 07:37 11/24/18 07:37 Labs: Abnormal Lab Results - Last 24 Hours (Table) 11/23/18 11/23/18 11/24/18 Range/Units 17:04 20:57 01:46 RDW (11.5-15.5) % Potassium (3.5-5.1) mmol/L Chloride (98-107) mmol/L Carbon Dioxide (22-30) mmol/L BUN (9-20) mg/dL Creatinine (0.66-1.25) mg/dL Glucose (74-99) mg/dL POC Glucose (mg/dL) 169 H 216 H 119 H (75-99) mg/dL 11/24/18 11/24/18 11/24/18 Range/Units 06:55 07:37 07:37 RDW 18.2 H (11.5-15.5) % Potassium 3.4 L (3.5-5.1) mmol/L Chloride 91 L (98-107) mmol/L Carbon Dioxide 39 H (22-30) mmol/L BUN 67 H (9-20) mg/dL Creatinine 2.25 H (0.66-1.25) mg/dL Glucose 122 H (74-99) mg/dL POC Glucose (mg/dL) 137 H (75-99) mg/dL 11/24/18 Range/Units 11:32 RDW (11.5-15.5) % Potassium (3.5-5.1) mmol/L Chloride (98-107) mmol/L Carbon Dioxide (22-30) mmol/L BUN (9-20) mg/dL Creatinine (0.66-1.25) mg/dL Glucose (74-99) mg/dL POC Glucose (mg/dL) 203 H (75-99) mg/dL Assessment and Plan Plan: 1 acute exacerbation of chronic congestive heart failure with diastolic dysfunction 2 acute exacerbation of COPD 3 chronic hypoxemic respiratory failure 4 acute kidney injury likely related to diuretics 5 Chronic kidney disease 6 history of coronary artery disease 7 hypertension 8 chronic persistent atrial fibrillation on long-term anticoagulation 9 morbid obesity 10 ex-smoker Plan: Patient is maintaining negative fluid balance, fluid status is improving, breathing easier. The diuretics have been transitioned to oral diuretics per cardiology, no worsening shortness of breath times chest pain. Continue breathing treatments, continue oral prednisone, oral anticoagulation. Continue DuoNeb I performed a history & physical examination of the patient and discussed their management with my nurse practitioner, Paola Tompkins. I reviewed the nurse practitioner's note and agree with the documented findings and plan of care. Lung sounds are positive for diminished breath sounds. The findings and the impression was discussed with the patient. I attest to the documentation by the nurse practitioner. Time with Patient: Less than 30
[2018-11-24 17:06] LABS: Glucose,Whole Blood 234 mg/dL (75-99)
--- NOTE | 2018-11-24 19:07 | ECHOF ---
Referral Reason:Chest pain and cardiomyopathy MEASUREMENTS -------- HEIGHT: 180.3 cm WEIGHT: 165.1 kg BP: 110/70 IVSd: 1.5 cm (0.6 - 1.1) LVIDd: 5.2 cm (3.9 - 5.3) LVPWd: 1.7 cm (0.6 - 1.1) IVSs: 1.7 cm LVIDs: 4.0 cm LVPWs: 2.1 cm LAESV Index (A-L): 37.94 ml/m Ao Diam: 3.0 cm (2.0 - 3.7) LA Diam: 5.8 cm (2.7 - 3.8) AV Cusp: 1.9 cm (1.5 - 2.6) FINDINGS -------- Sinus rhythm. This was a technically difficult study with suboptimal views. There is moderate concentric left ventricular hypertrophy. Overall left ventricular systolic functi on is mildly impaired with, an EF between 45 - 50 %. LA is moderately dilated 34-39 ml/m2 The right atrial size is normal. Interatrial and interventricular septum intact. There is no evidence of aortic regurgitation. Mild mitral regurgitation is present. Mild tricuspid regurgitation present. There is no evidence of pulmonary hypertension. The right v entricular systolic pressure, as measured by Doppler, is {RVSP}. The pulmonic valve was not well visualized. There is no pulmonic regurgitation present. The aortic root size is normal. IVC Not well visulized, due to Pt. Obesity. There is no pericardial effusion. CONCLUSIONS -------- 1. Sinus rhythm. 2. This was a technically difficult study with suboptimal views. 3. There is moderate concentric left ventricular hypertrophy. 4. Overall left ventricular systolic function is mildly impaired with, an EF between 45 - 50 %. 5. LA is moderately dilated 34-39 ml/m2 6. The right atrial size is normal. 7. Interatrial and interventricular septum intact. 8. There is no evidence of aortic regurgitation. 9. Mild mitral regurgitation is present. 10. Mild tricuspid regurgitation present. 11. There is no evidence of pulmonary hypertension. 12. The right ventricular systolic pressure, as measured by Doppler, is {RVSP}. 13. The pulmonic valve was not well visualized. 14. There is no pulmonic regurgitation present. 15. The aortic root size is normal. 16. IVC Not well visulized, due to Pt. Obesity. 17. There is no pericardial effusion. JET DYEING MACHINE TENDER: Marya Ochoa RDCS
[2018-11-24 21:15] LABS: Glucose,Whole Blood 321 mg/dL (75-99)
[2018-11-24] MEDS: ATORVASTATIN 80 MG TAB PO SCH (21:28)
[2018-11-24] MEDS: INSULIN DETEMIR (LEVEMIR) 100 UNIT/ML SYR SQ SCH (21:29)
[2018-11-24] MEDS: SERTRALINE 100 MG TAB PO SCH (21:29)
[2018-11-24] MEDS ORDERED: INSULIN DETEMIR (LEVEMIR) 100 UNIT/ML SYR SQ ONE (23:45)
[2018-11-25 00:03] LABS: Glucose,Whole Blood 255 mg/dL (75-99)
[2018-11-25 02:08] LABS: Glucose,Whole Blood 193 mg/dL (75-99)
[2018-11-25] MEDS: LEVOTHYROXINE 137 MCG TAB PO SCH (05:48)
[2018-11-25 06:58] LABS: Glucose,Whole Blood 155 mg/dL (75-99)
[2018-11-25] MEDS: INSULIN ASPART (NovoLOG) 100 UNIT/ML VIAL SQ SCH ×2 (08:07→13:16)
[2018-11-25] MEDS: ALLOPURINOL 100 MG TAB PO SCH (08:07)
[2018-11-25] MEDS: PANTOPRAZOLE 40 MG TABLET PO SCH (08:07)
[2018-11-25] MEDS: APIXABAN 5 MG TAB PO SCH (08:08)
[2018-11-25] MEDS: FERROUS SULFATE 325 MG TAB PO SCH (08:08)
[2018-11-25] MEDS: DILTIAZEM ORAL 60 MG TAB PO SCH (08:08)
[2018-11-25] MEDS: FUROSEMIDE 40 MG TAB PO SCH (08:09)
[2018-11-25] MEDS: LORATADINE 10 MG TAB PO SCH (08:09)
[2018-11-25] MEDS: FOLIC ACID 1 MG TAB PO SCH (08:09)
[2018-11-25] MEDS: METOLAZONE 2.5 MG TAB PO SCH (08:09)
[2018-11-25] MEDS: LINAGLIPTIN 5 MG TABLET PO SCH (08:09)
[2018-11-25] MEDS: predniSONE 20 MG TAB PO SCH (08:10)
[2018-11-25] MEDS: POTASSIUM CHLORIDE ER 20 MEQ TAB.ER PO SCH (08:10)
[2018-11-25] MEDS: METOPROLOL TARTRATE 50 MG TAB PO SCH (08:13)
[2018-11-25] MEDS: IPRATROPIUM-ALBUTEROL 3 ML NEB INHALATION SCH ×3 (08:27→15:42)
[2018-11-25] MEDS: SYMBICORT 160-4.5 MCG INHALER INHALATION SCH (08:27)
[2018-11-25 08:31] VITALS: RESP 16
[2018-11-25] MEDS ORDERED: LEVOFLOXACIN 250 MG TAB PO SCH (09:00)
[2018-11-25 09:01] LABS: Calcium 9.8 mg/dL (8.4-10.2); Potassium 3.6 mmol/L (3.5-5.1)
[2018-11-25 11:04] LABS: Glucose,Whole Blood 210 mg/dL (75-99)
[2018-11-25 11:57] VITALS: BP 128/82; TEMP 97.5
[2018-11-25] MEDS ORDERED: guaiFENesin-DM 100-10MG/5ML 10 ML CUP PO SCH (12:00)
--- NOTE | 2018-11-25 12:43 | P.PN ---
Subjective Progress Note Date: 11/25/18 Principal diagnosis: Shortness of breath related to acute exacerbation of congestive heart failure, and underlying COPD. Number 11/24/2016 patient seen in follow-up on medical surgical floor. She is sitting up in the chair, in no acute distress, currently on 4 L of oxygen per nasal cannula, with pulse ox of 96%. Hemodynamically patient is stable, afebrile, he remains on IV Lasix, and his weight is down 3.7 kg in the last 24 hours. His labs have been reviewed, showing white blood cell count of 7.9, hemoglobin 13.2, serum sodium of 141, potassium is 3.4, chloride is 91, CO2 is 29, BUN 67, creatinine is 2.25. He has occasional nonproductive cough, overall his breathing is improving. Lung sounds are diminished breath sounds. Positive chest pain. Cardiology is following, and is planning to transition the patient to oral diuretics due to worsening renal failure. On 11/25/2018 patient is seen in follow-up on medical surgical floor. He sitting up in the chair, in no acute distress, breathing easier, lung sounds are essentially clear to auscultation, no wheezing, no rhonchi or rales, bilateral lower extremity edema is improving, and the skin on lower extremities is actually starting to get wrinkled. Patient states she is coughing up some more phlegm. He is currently on oral Lasix 40 mg twice daily, today's labs have been reviewed showing BUN of 73 and creatinine of 2.16. No fever or chills. Objective - Vital Signs Vital signs: Vital Signs Temp 97.5 F L 11/25/18 11:46 Pulse 80 11/25/18 11:56 Resp 16 11/25/18 11:56 BP 128/82 11/25/18 11:46 Pulse Ox 96 11/25/18 11:46 Intake & Output 11/24/18 11/25/18 11/25/18 18:59 06:59 18:59 Intake Total 400 720 Output Total 1050 1050 Balance -650 -330 Weight 160.4 kg Intake: Oral 400 720 Output: Urine 1050 1050 Other: Voiding Method Urinal Urinal # Voids 3 - Exam GENERAL EXAM: Alert, pleasant, morbidly obese 48-year-old white male, currently on 3 L of oxygen with a pulse ox of 96%, comfortable in no apparent distress. HEAD: Normocephalic/atraumatic. EYES: Normal reaction of pupils, equal size. Conjunctiva pink, sclera white. NOSE: Clear with pink turbinates. THROAT: No erythema or exudates. NECK: No masses, no JVD, no thyroid enlargement, no adenopathy. CHEST: No chest wall deformity. Symmetrical expansion. LUNGS: Equal air entry with no crackles, wheeze, rhonchi or dullness. CVS: Regular rate and rhythm, normal S1 and S2, no gallops, no murmurs, no rubs ABDOMEN: Soft, nontender. No hepatosplenomegaly, normal bowel sounds, no guarding or rigidity. EXTREMITIES: No clubbing, chronic venous stasis in lower extremities no cyanosis, 2+ pulses and upper and lower extremities. MUSCULOSKELETAL: Muscle strength and tone normal. SPINE: No scoliosis or deformity SKIN: No rashes CENTRAL NERVOUS SYSTEM: Alert and oriented -3. No focal deficits, tone is normal in all 4 extremities. PSYCHIATRIC: Alert and oriented -3. Appropriate affect. Intact judgment and insight. - Labs CBC & Chem 7: 11/24/18 07:37 11/25/18 08:32 Labs: Abnormal Lab Results - Last 24 Hours (Table) 11/24/18 11/24/18 11/24/18 Range/Units 17:06 21:13 23:59 Chloride (98-107) mmol/L Carbon Dioxide (22-30) mmol/L BUN (9-20) mg/dL Creatinine (0.66-1.25) mg/dL Glucose (74-99) mg/dL POC Glucose (mg/dL) 234 H 321 H 255 H (75-99) mg/dL 11/25/18 11/25/18 11/25/18 Range/Units 02:00 06:57 08:32 Chloride 91 L (98-107) mmol/L Carbon Dioxide 40 H (22-30) mmol/L BUN 73 H (9-20) mg/dL Creatinine 2.16 H (0.66-1.25) mg/dL Glucose 177 H (74-99) mg/dL POC Glucose (mg/dL) 193 H 155 H (75-99) mg/dL 11/25/18 Range/Units 11:03 Chloride (98-107) mmol/L Carbon Dioxide (22-30) mmol/L BUN (9-20) mg/dL Creatinine (0.66-1.25) mg/dL Glucose (74-99) mg/dL POC Glucose (mg/dL) 210 H (75-99) mg/dL Assessment and Plan Plan: 1 acute exacerbation of chronic congestive heart failure with diastolic dysfunction 2 acute exacerbation of COPD 3 chronic hypoxemic respiratory failure 4 acute kidney injury likely related to diuretics 5 Chronic kidney disease 6 history of coronary artery disease 7 hypertension 8 chronic persistent atrial fibrillation on long-term anticoagulation 9 morbid obesity 10 ex-smoker Plan: Continue oral Lasix, nebulized bronchodilators, oral prednisone, fluid balance status continues to improve, patient is breathing easier. Lower extremity edema is improving. Increase activity as tolerated. Will continue to follow. I performed a history & physical examination of the patient and discussed their management with my nurse practitioner, Paola Tompkins. I reviewed the nurse practitioner's note and agree with the documented findings and plan of care. Lung sounds are positive for diminished breath sounds. The findings and the impression was discussed with the patient. I attest to the documentation by the nurse practitioner. Time with Patient: Less than 30
--- NOTE | 2018-11-25 13:59 | PN ---
PROGRESS NOTE Patient is seen for followup for chronic kidney disease and acute kidney injury. Renal function is fairly stable. Creatinine is down slightly to 2.1 from peak of 2.35. Patient is maintained on oral diuretics, which was switched over from IV to oral yesterday. Overall, he states he is feeling fair. Weight is down by about 5 kg. PHYSICAL EXAMINATION: This morning, blood pressure was 128/82, heart rate 80 per minute. He is afebrile. Examination of the heart, S1, S2. Examination of the lungs, bilateral breath sounds are heard. Abdomen is soft, nontender. Examination of the lower extremities shows bilateral chronic skin changes. Edema 1+ bilaterally, which is mainly chronic. RIB BENDER exam grossly intact. LABS: Show sodium 141, potassium 3.6, CO2 is 40, BUN 73, serum creatinine 2.16. ASSESSMENT: 1. Acute kidney injury, cardiorenal. Renal function fairly stable, slightly improved with changing the diuretics to p.o. 2. Metabolic alkalosis secondary to diuretics. 3. Fluid overload, currently improved. 4. Diastolic heart failure. Acute on top of chronic. 5. Chronic kidney disease stage III secondary to diabetic kidney disease and cardiorenal syndrome. Baseline creatinine 1.4-1.7 mg/dL. 6. History of atrial fibrillation with controlled ventricular response, maintained on anticoagulation. PLAN: Continue current dose of Lasix. Monitor electrolytes. Continue with Eliquis. Patient is stable for discharge from Nephrology standpoint. He needs to follow up in the office in about 1 week's time with repeat labs to be done in 4-5 days post discharge. MMODL / IJN: [id number] /
--- NOTE | 2018-11-25 14:33 | P.PN ---
Subjective This is a pleasant 48-year-old male past medical history significant for chronic persistent atrial fibrillation on halfway anticoagulation, coronary artery disease s/p stent placement to the circumflex 2015, prior stent placement to LAD and occluded RCA, chronic kidney disease, hypertension, dyslipidemia, COPD and morbid obesity. He follows in the office with Dr. Wood. He is currently being treated for heart failure and exacerbation of COPD. Pt seen and examined sitting up in the chair eating lunch. He states overall he is feeling better with less shortness of breath. He denies chest pain, dizziness or palpitations. Laboratory data reviewed, sodium 141, potassium 3.6, creatinine 2.16. Blood pressure 128/82 heart rate 87 afebrile maintaining oxygen saturation on nasal cannula. Continues to maintain negative fluid balance. We continues to go down daily. GENERAL: Well-appearing, well-nourished and in no acute distress. Morbidly obese. NECK: Supple without JVD or thyromegaly. LUNGS: No wheezes, no rhonchi or rales. Respiration equal and unlabored. Diminished bilaterally. HEART: Irregular rate and rhythm with murmur at the base, no rubs or gallops. S1 and S2 heard. EXTREMITIES: Normal range of motion, chronic lower extremity non-pitting edema and discoloration bilaterally. No clubbing or cyanosis. Peripheral pulses intact. ASSESSMENT Acute on chronic diastolic heart failure Acute exacerbation of COPD Chronic hypoxic respiratory failure uses home oxygen Acute on chronic renal failure Obstructive sleep apnea History of coronary artery disease Hypertension Chronic persistent atrial fibrillation on halfway anticoagulation Dyslipidemia Morbid obesity PLAN Stable from a cardiac perspective. Follow-up with Dr. Wood upon discharge. We will continue to follow as needed. Nurse Practitioner note has been reviewed, I agree with a documented findings and plan of care. Patient was seen and examined. Objective - Vital Signs Vital signs: Vital Signs Temp 97.5 F L 11/25/18 11:46 Pulse 80 11/25/18 11:56 Resp 16 11/25/18 11:56 BP 128/82 11/25/18 11:46 Pulse Ox 96 11/25/18 11:46 Intake & Output 11/24/18 11/25/18 11/25/18 18:59 06:59 18:59 Intake Total 400 720 Output Total 1050 1050 Balance -650 -330 Weight 160.4 kg Intake: Oral 400 720 Output: Urine 1050 1050 Other: Voiding Method Urinal Urinal # Voids 3 - Labs CBC & Chem 7: 11/24/18 07:37 11/25/18 08:32 Labs: Abnormal Lab Results - Last 24 Hours (Table) 11/24/18 11/24/18 11/24/18 Range/Units 17:06 21:13 23:59 Chloride (98-107) mmol/L Carbon Dioxide (22-30) mmol/L BUN (9-20) mg/dL Creatinine (0.66-1.25) mg/dL Glucose (74-99) mg/dL POC Glucose (mg/dL) 234 H 321 H 255 H (75-99) mg/dL 11/25/18 11/25/18 11/25/18 Range/Units 02:00 06:57 08:32 Chloride 91 L (98-107) mmol/L Carbon Dioxide 40 H (22-30) mmol/L BUN 73 H (9-20) mg/dL Creatinine 2.16 H (0.66-1.25) mg/dL Glucose 177 H (74-99) mg/dL POC Glucose (mg/dL) 193 H 155 H (75-99) mg/dL 11/25/18 Range/Units 11:03 Chloride (98-107) mmol/L Carbon Dioxide (22-30) mmol/L BUN (9-20) mg/dL Creatinine (0.66-1.25) mg/dL Glucose (74-99) mg/dL POC Glucose (mg/dL) 210 H (75-99) mg/dL
--- NOTE | 2018-11-25 14:40 | P.DS ---
Providers Date of admission: 11/21/18 18:55 Attending physician: Joshua Rubi Consults: 11/22/18 01:49 Consult Physician Routine Consulting Provider: Cathy Candelaria Consult Reason/Comments: chf Do you want consulting provider notified?: Yes 11/22/18 01:51 Consult Physician Routine Consulting Provider: Adam Overton Consult Reason/Comments: copd Do you want consulting provider notified?: Yes 11/22/18 15:10 Consult Physician Routine Consulting Provider: Hector Turcios Consult Reason/Comments: crf Do you want consulting provider notified?: Yes Primary care physician: [facility] Hospital Course: Diagnoses: Acute on chronic systolic congestive heart failure, ejection fraction 45-50%, improving Acute kidney injury, improving Chronic kidney disease, stage III Acute COPD exacerbation. Improving History of paroxysmal atrial fibrillation on Eliquis Chronic hypoxic respiratory failure Hypertension History of hyperlipidemia History of DVT on Eliquis Obesity Sleep apnea on CPAP/BiPAP History of kidney stone Next a smoker, quit earlier this year. Generalized weakness Hospital course: This is a pleasant 48 years old male with past medical history of heart failure that follow-up with Dr. Wood in the outpatient setting, atrial fibrillation on anticoagulation and Eliquis, deep venous thrombosis, hyperlipidemia, hypertension, coronary artery disease, obesity, sleep apnea on CPAP/BiPAP, chronic kidney disease stage III, kidney stones, asthma and COPD. Ex-smoker where he used to smoke about 1 pack per day for 20 years, quit June 2018. Patient presents this time with exertional dyspnea and found to have acute congestive heart failure and acute kidney injury, patient has been evaluated by pulmonary , cardiology and nephrology team. Patient was treated with Lasix 40 mg 3 times per day plus Zaroxolyn, also on Levaquin and Eliquis and Levemir insulin. Patient showed interval improvement with better breathing. His exertional dyspnea is improving significantly. Patient denies chest pain. He still have cough with clear to white phlegm. His leg edema is improving. Patient denies abdominal pain or nausea vomiting. He is tolerating diet well. Patient was on home oxygen at 3 L/m. His oxygen saturation is 96% on 3 L oxygen. Patient was cleared for discharge by nephrology, pulmonary and cardiology teams. Problems and management plan were discussed with the patient and he verbalized understanding and acceptance Patient was found stable and can be discharged home however he needs follow-up as an outpatient. Patient agrees with the appointments and the timing made for him with his PCP, nephrology. And baggage smasher office will call him to make appointment and patient is aware and agrees. Prescription is provided for the patient. He did not need prescription for Lasix or metolazone or Eliquis because he had it at home Gen: patient is a AAOx3, no distress CVS: S1-S2, RRR, no murmur Lungs: B/L CTA, no wheezing Abdomen: soft, no distention, no tenderness, positive bowel sounds Extremity: no leg edema or induration Time spent more than 35 minutes Patient Condition at Discharge: Stable Plan - Discharge Summary New Discharge Prescriptions: New Levofloxacin [Levaquin] 250 mg PO DAILY #5 tab predniSONE 10 mg PO DIRECTED #27 tab Pantoprazole [Protonix] 40 mg PO AC-BRKFST #30 tablet.dr valeaiFENesin-Coden 100-10MG/5ML [Robitussin AC] 5 - 10 ml PO Q6H PRN 3 Days #120 ml PRN Reason: Cough No Action Loratadine [Claritin] 10 mg PO DAILY Sertraline [Zoloft] 100 mg PO HS Nitroglycerin Sl Tabs [Nitrostat] 0.4 mg SUBLINGUAL Q5M PRN #30 tab PRN Reason: Chest Pain Folic Acid 1 mg PO BID Levothyroxine Sodium [Synthroid] 137 mcg PO QAM Atorvastatin [Lipitor] 80 mg PO HS Budesonide/Formoterol Fumarate [Symbicort 160-4.5 Mcg Inhaler] 2 puff INHALATION RT-BID Allopurinol [Zyloprim] 100 mg PO DAILY traMADol HCL [Ultram] 50 mg PO BID PRN PRN Reason: Pain Ferrous Sulfate [Iron (65 MG Elemental)] 325 mg PO BID Ergocalciferol (Vitamin D2) [Drisdol] 50,000 unit PO MO Calcium Carbonate [Tums] 1,000 mg PO TID PRN chew PRN Reason: Heartburn Apixaban [Eliquis] 5 mg PO BID tab Diltiazem Oral [Cardizem*] 60 mg PO BID #60 tab Albuterol Nebulized [Ventolin Nebulized] 2.5 mg INHALATION RT-QID PRN PRN Reason: Shortness Of Breath Albuterol Inhaler [Ventolin Hfa Inhaler] 1 - 2 puff INHALATION RT-QID PRN PRN Reason: Shortness Of Breath Metoprolol Tartrate [Lopressor] 100 mg PO BID Docusate [Colace] 100 mg PO BID PRN #30 cap PRN Reason: Constipation Potassium Chloride ER [K-Dur 20] 40 meq PO DAILY 3 Days #6 tab.er.prt Furosemide [Lasix] 40 mg PO BID@0900,1600 #60 tab sitaGLIPtin [Januvia] 100 mg PO DAILY #30 tab Metolazone [Zaroxolyn] 2.5 mg PO MOFR #0 Insulin Detemir [Levemir Flextouch] 40 units SQ HS #100 units Pen Needle, Diabetic [Bd Ultra-Fine Pen Needle 6mm 32G] 100 each SQ DAILY #100 dis.needle Discharge Medication List Loratadine [Claritin] 10 mg PO DAILY 10/19/13 [History] Sertraline [Zoloft] 100 mg PO HS 10/19/13 [History] Nitroglycerin Sl Tabs [Nitrostat] 0.4 mg SUBLINGUAL Q5M PRN #30 tab 12/03/14 [Rx] Atorvastatin [Lipitor] 80 mg PO HS 03/25/15 [History] Folic Acid 1 mg PO BID 03/25/15 [History] Levothyroxine Sodium [Synthroid] 137 mcg PO QAM 03/25/15 [History] Budesonide/Formoterol Fumarate [Symbicort 160-4.5 Mcg Inhaler] 2 puff INHALATION RT-BID 08/01/16 [History] Allopurinol [Zyloprim] 100 mg PO DAILY 12/17/17 [History] Ergocalciferol (Vitamin D2) [Drisdol] 50,000 unit PO MO 05/05/18 [History] Ferrous Sulfate [Iron (65 MG Elemental)] 325 mg PO BID 05/05/18 [History] traMADol HCL [Ultram] 50 mg PO BID PRN 05/05/18 [History] Calcium Carbonate [Tums] 1,000 mg PO TID PRN chew 05/08/18 [Rx] Apixaban [Eliquis] 5 mg PO BID tab 06/03/18 [Rx] Diltiazem Oral [Cardizem*] 60 mg PO BID #60 tab 06/03/18 [Rx] Albuterol Inhaler [Ventolin Hfa Inhaler] 1 - 2 puff INHALATION RT-QID PRN 09/17/18 [History] Albuterol Nebulized [Ventolin Nebulized] 2.5 mg INHALATION RT-QID PRN 09/17/18 [History] Metoprolol Tartrate [Lopressor] 100 mg PO BID 09/17/18 [History] Docusate [Colace] 100 mg PO BID PRN #30 cap 09/22/18 [Rx] Furosemide [Lasix] 40 mg PO BID@0900,1600 #60 tab 09/22/18 [Rx] Potassium Chloride ER [K-Dur 20] 40 meq PO DAILY 3 Days #6 tab.er.prt 09/22/18 [Rx] Insulin Detemir [Levemir Flextouch] 40 units SQ HS #100 units 10/28/18 [Rx] Metolazone [Zaroxolyn] 2.5 mg PO MOFR #0 10/28/18 [Rx] Pen Needle, Diabetic [Bd Ultra-Fine Pen Needle 6mm 32G] 100 each SQ DAILY #100 dis.needle 10/28/18 [Rx] sitaGLIPtin [Januvia] 100 mg PO DAILY #30 tab 10/28/18 [Rx] Levofloxacin [Levaquin] 250 mg PO DAILY #5 tab 11/25/18 [Rx] Pantoprazole [Protonix] 40 mg PO AC-BRKFST #30 tablet.dr 11/25/18 [Rx] guaiFENesin-Coden 100-10MG/5ML [Robitussin AC] 5 - 10 ml PO Q6H PRN 3 Days #120 ml 11/25/18 [Rx] predniSONE 10 mg PO DIRECTED #27 tab 11/25/18 [Rx] Follow up Appointment(s)/Referral(s): Samaria Szymanski MD [STAFF PHYSICIAN] - 12/12/18 11:20 am Alvin Wood MD [STAFF PHYSICIAN] - 1 Week (office will call patient to schedule appt) Aguilar Bautista DO [Primary Care Provider] - 11/27/18 2:00 pm Activity/Diet/Wound Care/Special Instructions: Cardiac diet Activities Limited till you see your doctor *Recommend to check your kidney function test with your family doctor in 2 days
[2018-11-25 15:34] VITALS: PULSE 87
== END 2018-11-25 16:15 | disposition home or self-care (01) | DRG 291 ==
LOC: EC 15:58 → 3NMEDONC 18:55
PROVIDERS: ADMIT Hospitalist; ATTEND Hospitalist
DX: I13.0 Hypertensive heart and chronic kidney disease with heart failure and stage 1 through stage 4 chronic kidney disease, or unspecified chronic kidney disease (principal); I50.33 Acute on chronic diastolic (congestive) heart failure; Z68.43 Body mass index [BMI] 50.0-59.9, adult; N17.9 Acute kidney failure, unspecified; J44.1 Chronic obstructive pulmonary disease with (acute) exacerbation; J96.11 Chronic respiratory failure with hypoxia; E87.3 Alkalosis; I48.1 Persistent atrial fibrillation; E11.22 Type 2 diabetes mellitus with diabetic chronic kidney disease; E11.51 Type 2 diabetes mellitus with diabetic peripheral angiopathy without gangrene; E11.65 Type 2 diabetes mellitus with hyperglycemia; E66.01 Morbid (severe) obesity due to excess calories; N18.3 Chronic kidney disease, stage 3 (moderate); I48.0 Paroxysmal atrial fibrillation; D50.9 Iron deficiency anemia, unspecified; F32.9 Major depressive disorder, single episode, unspecified; E78.5 Hyperlipidemia, unspecified; G47.33 Obstructive sleep apnea (adult) (pediatric); E03.9 Hypothyroidism, unspecified; I87.8 Other specified disorders of veins; I25.10 Atherosclerotic heart disease of native coronary artery without angina pectoris; T50.2X5A Adverse effect of carbonic-anhydrase inhibitors, benzothiadiazides and other diuretics, initial encounter; R26.2 Difficulty in walking, not elsewhere classified; I25.2 Old myocardial infarction; M19.90 Unspecified osteoarthritis, unspecified site; Z99.81 Dependence on supplemental oxygen; Z79.01 Long term (current) use of anticoagulants; Z79.51 Long term (current) use of inhaled steroids; Z79.4 Long term (current) use of insulin; Z79.890 Hormone replacement therapy; Z79.899 Other long term (current) drug therapy; Z86.718 Personal history of other venous thrombosis and embolism; Z87.442 Personal history of urinary calculi; Z90.49 Acquired absence of other specified parts of digestive tract; Z86.14 Personal history of Methicillin resistant Staphylococcus aureus infection; Z95.5 Presence of coronary angioplasty implant and graft; Z87.891 Personal history of nicotine dependence; Z88.1 Allergy status to other antibiotic agents; Z88.0 Allergy status to penicillin; Z88.8 Allergy status to other drugs, medicaments and biological substances; Z91.048 Other nonmedicinal substance allergy status; Z82.61 Family history of arthritis; Z82.62 Family history of osteoporosis; Z82.49 Family history of ischemic heart disease and other diseases of the circulatory system; Z83.6 Family history of other diseases of the respiratory system; Z83.79 Family history of other diseases of the digestive system; Z84.1 Family history of disorders of kidney and ureter
CPT/HCPCS: 36415; 71046; 80048; 80053; 81003; 83735; 83880; 84132; 84484; 85025; 85610; 85730; 93005; 93017; 93306; 94640; 94760; 96374; 96375; 99285

== ENCOUNTER → 2018-12-22 | Outpatient (CLI) | payer MEDICARE, OTHER ==
[2018-12-22 15:54] LABS: Appearance,Urine Clear (Clear); Bilirubin,Urine Negative (Negative); Blood,Urine Negative (Negative); Color,Urine Yellow; Glucose,Urine (UA) Negative (Negative); Ketones,Urine Negative (Negative); Leukocyte Esterase,Urine Negative (Negative); Nitrite,Urine Negative (Negative); PH, Urine 6.5 (5.0-8.0); Protein,Urine Trace (Negative); Urobilinogen,Urine <2.0 mg/dL (<2.0)
[2018-12-22 16:18] LABS: Anisocytosis Slight; Basophils % (A) 1 %; Eosinophils # (A) 0.2 k/uL (0-0.7); Eosinophils % (A) 3 %; HCT 39.1 % (39.0-53.0); Hypochromasia Slight; Lymphocytes # (A) 1.1 k/uL (1.0-4.8); Lymphocytes % (A) 19 %; MCHC 33.1 g/dL (31.0-37.0); MCV 84.5 fL (80.0-100.0); Mean Platelet Volume 8.1; Monocytes # (A) 0.4 k/uL (0-1.0); Monocytes % (A) 6 %; Neutrophils # (A) 4.2 k/uL (1.3-7.7); Neutrophils % (A) 69 %; Platelet Count 216 k/uL (150-450); Poikilocytosis Moderate; RBC 4.63 m/uL (4.30-5.90); RDW 17.9 % (11.5-15.5); WBC 6.1 k/uL (3.8-10.6)
[2018-12-23 00:03] LABS: Parathyroid Hormone Intact 124.8 pg/mL (14.0-72.0)
[2018-12-23 00:19] LABS: African American GFR (CKD) 50.8 (60.0-200.0); Albumin 3.9 g/dL (3.80-4.90); Albumin/Globulin Ratio 1.63 (1.60-3.17); BUN/Creat Ratio 17.78 Ratio (12.00-20.00); Calcium 9.2 mg/dL (8.7-10.3); Globulin 2.4 g/dL (1.6-3.3); Potassium 3.5 mmol/L (3.5-5.5); Total Bilirubin 0.7 mg/dL (0.2-1.2); Total Protein 6.3 g/dL (6.2-8.2)
[2018-12-23 00:38] LABS: Iron Saturation 24.93 (15.00-50.00)
[2018-12-23 00:46] LABS: Vitamin D 25 Hydroxy 67.6 ng/mL (30.0-100.0)
[2018-12-23 02:14] LABS: Creatinine,Urine Random 77.4 mg/dL
[2018-12-23 02:26] LABS: Total Protein,Urine Random 21.6 mg/dL (0.0-13.5)
== END | disposition home or self-care (01) ==
LOC: LABWHC1 14:57
PROVIDERS: ATTEND Nurse Practitioner Family
DX: N18.3 Chronic kidney disease, stage 3 (moderate) (principal); D63.1 Anemia in chronic kidney disease; N39.0 Urinary tract infection, site not specified; R80.9 Proteinuria, unspecified; N25.81 Secondary hyperparathyroidism of renal origin; E55.9 Vitamin D deficiency, unspecified
CPT/HCPCS: 36415; 80053; 81003; 82306; 82570; 82728; 83540; 83550; 83970; 84156; 85025

== ENCOUNTER 2019-02-07 18:22 | Inpatient (IN) | payer MEDICARE, OTHER ==
[2019-02-07] MEDS ORDERED: IPRATROPIUM-ALBUTEROL 3 ML NEB INHALATION STA (18:41)
--- NOTE | 2019-02-07 18:45 | ED ---
Chest Pain HPI - General Chief Complaint: Chest Pain Stated Complaint: Chest Pain/CRISTIAN Time Seen by Provider: 02/07/19 18:27 Source: patient, RN notes reviewed Mode of arrival: wheelchair Limitations: no limitations - History of Present Illness Initial Comments: This is a 48-year-old male history of multiple medical problems including COPD CHF who presents with complaints of exertional dyspnea going on for the past 2 weeks getting worse with a. No overt fevers chills or sweats. cough MD Complaint: chest pain - Related Data Home Medications Medication Instructions Recorded Confirmed Loratadine [Claritin] 10 mg PO DAILY 10/19/13 02/07/19 Sertraline [Zoloft] 100 mg PO HS 10/19/13 02/07/19 Atorvastatin [Lipitor] 80 mg PO HS 03/25/15 02/07/19 Folic Acid 1 mg PO BID 03/25/15 02/07/19 Levothyroxine Sodium [Synthroid] 137 mcg PO QAM 03/25/15 02/07/19 Budesonide/Formoterol Fumarate 2 puff INHALATION RT-BID 08/01/16 02/07/19 [Symbicort 160-4.5 Mcg Inhaler] Allopurinol [Zyloprim] 100 mg PO DAILY 12/17/17 02/07/19 Ergocalciferol (Vitamin D2) 50,000 unit PO MO 05/05/18 02/07/19 [Drisdol] Albuterol Inhaler [Ventolin Hfa 1 - 2 puff INHALATION RT-QID PRN 09/17/18 02/07/19 Inhaler] Albuterol Nebulized [Ventolin 2.5 mg INHALATION RT-QID PRN 09/17/18 02/07/19 Nebulized] Docusate [Colace] 100 mg PO DAILY 02/07/19 02/07/19 Furosemide [Lasix] 20 mg PO DAILY@1200 02/07/19 02/07/19 Furosemide [Lasix] 60 mg PO BID 02/07/19 02/07/19 Metoprolol Tartrate [Lopressor] 50 mg PO TID 02/07/19 02/07/19 Midodrine [ProAmatine] 5 mg PO BID 02/07/19 02/07/19 Potassium Chloride ER [K-Dur 20] 20 meq PO BID 02/07/19 02/07/19 Previous Rx's Medication Instructions Recorded Nitroglycerin Sl Tabs [Nitrostat] 0.4 mg SUBLINGUAL Q5M PRN #30 tab 12/03/14 Apixaban [Eliquis] 5 mg PO BID tab 06/03/18 Insulin Detemir [Levemir Flextouch] 40 units SQ HS #100 units 10/28/18 Metolazone [Zaroxolyn] 2.5 mg PO MOFR #0 10/28/18 sitaGLIPtin [Januvia] 100 mg PO DAILY #30 tab 10/28/18 Allergies Allergy/AdvReac Type Severity Reaction Status Date / Time adhesive Allergy "PLASTIC Verified 02/07/19 20:03 TAPE PEELS SKIN,PAPER TAPE IS OK" linezolid Allergy Unknown Verified 02/07/19 20:03 penicillin G Allergy Rash/Hives Verified 02/07/19 20:03 Cephalosporins AdvReac FEVER Verified 02/07/19 20:03 Review of Systems ROS Statement: Those systems with pertinent positive or pertinent negative responses have been documented in the HPI. ROS Other: All systems not noted in ROS Statement are negative. EKG Findings - EKG Results: EKG: interpreted by ERMD (Atrial fibrillation with a rapid ventricular response rate of 129 QRS 94 QT since QTC 338/495. Nonspecific ST configuration) Past Medical History Past Medical History: Atrial Fibrillation, Asthma, Coronary Artery Disease (CAD), Chest Pain / Angina, Heart Failure, COPD, Deep Vein Thrombosis (DVT), Hyperlipidemia, Hypertension, Myocardial Infarction (PR), Renal Disease, Sleep Apnea/CPAP/BIPAP, Thyroid Disorder, Vascular Disorder Additional Past Medical History / Comment(s): CHF, tracheobronchitis, CKD stage III, kidney stones, DVT L leg in 2004, KAMRYN without device use, colon abscess with bowel resection, multiple abdominal surgeries for a hiatal hernia that was complicated by prolonged hospitalization and prolonged ventilator dependent respiratory failure requiring a tracheostomy tube insertion, pvd-lower legs discolored/edematous, diverticular disease, chronic iron deficiency anemia, vertigo at times, Last Myocardial Infarction Date:: History of Any Multi-Drug Resistant Organisms: MRSA Date of last positivie culture/infection: 02/01/15 MDRO Source:: Abdomen Past Surgical History: Bowel Resection, Heart Catheterization With Stent, Hernia Repair Additional Past Surgical History / Comment(s): Colonoscopies, heart stents x 4, bowel resection with colostomy and colostomy reversal (removed a foot of pts colon)-2003, hernia repair with skin grafts and 2 fistula repairs (hospitalized for 1 year @[facility])-2010 MRSA 2014 in wounds. Past Anesthesia/Blood Transfusion Reactions: No Reported Reaction Additional Past Anesthesia/Blood Transfusion Reaction / Comment(s): Pt has received blood in past without reaction-2010 Date of Last Stent Placement:: 03/28/2015 Past Psychological History: Depression Smoking Status: Former smoker Past Alcohol Use History: None Reported Past Drug Use History: None Reported - Past Family History Mother Family Medical History: Osteoarthritis (OA), Pneumonia Additional Family Medical History / Comment(s): osteoporosis. arthroscopy surgery for knee Father Family Medical History: Liver Disease, Renal Disease Additional Family Medical History / Comment(s): triple heart bypass. liver transplant. aortic aneursym General Exam - General Exam Comments Initial Comments: This is a well-developed obese male who is awake alert oriented 3 Limitations: no limitations General appearance: alert, anxious, in distress Head exam: Present: atraumatic, normocephalic, normal inspection Eye exam: Present: normal appearance, PERRL, EOMI. Absent: scleral icterus, conjunctival injection, periorbital swelling ENT exam: Present: normal exam, mucous membranes moist Neck exam: Present: normal inspection. Absent: tenderness, meningismus, lymphadenopathy Respiratory exam: Present: wheezes, decreased breath sounds. Absent: respiratory distress, rales, rhonchi, stridor Cardiovascular Exam: Present: tachycardia, irregular rhythm. Absent: systolic murmur, diastolic murmur, rubs, gallop, clicks GI/Abdominal exam: Present: soft, normal bowel sounds. Absent: distended, tenderness, guarding, rebound, rigid Extremities exam: Present: normal inspection, full ROM, normal capillary refill. Absent: tenderness, pedal edema, joint swelling, calf tenderness Back exam: Present: normal inspection Neurological exam: Present: alert, oriented X3, CN II-XII intact Psychiatric exam: Present: normal affect, normal mood Skin exam: Present: warm, dry, intact, normal color. Absent: rash Course Vital Signs 02/07/19 02/07/19 02/07/19 18:24 19:22 19:32 Temperature 98.3 F Pulse Rate 139 H 134 H 135 H Respiratory 20 Rate Blood Pressure 141/97 O2 Sat by Pulse 97 Oximetry - Reevaluation(s) Reevaluation #1: 02/07/19 20:56 I did reevaluate the patient did discuss findings with him. Chest Pain MDM - MDM Imaging shows evidence of left pleural effusion. The workup thus far indicates congestive heart failure as the source of his presentation as well as A. fib RVR. She'll be admitted case is discussed with Dr. Guerra. Critical Care Time Critical Care Time: Yes Critical Care Time: 37 minutes of critical care time which includes initial presentation with history physical labs x-rays reevaluation the patient on several occasions discussion with patient regarding findings discussion with the admitting physician admission orders and documentation of the above Disposition Clinical Impression: Congestive heart failure (CHF), Rapid atrial fibrillation, Hypokalemia, Renal insufficiency syndrome, Hyperglycemia, Pleural effusion, left Disposition: ADMITTED IP TO THIS HOSP Condition: Fair Referrals: Aguilar Bautista DO [Primary Care Provider] - 1-2 days
--- NOTE | 2019-02-07 19:12 | XR ---
EXAMINATION TYPE: XR chest 2V DATE OF EXAM: 02/07/2019 COMPARISON: 11/21/2018 HISTORY: Chest pain TECHNIQUE: Frontal and lateral views of the chest are obtained. FINDINGS: Heart is enlarged. There is no heart failure. There is some blunting of left costophrenic angle. There are chest leads. There is no gross heart failure. Bony thorax is intact. IMPRESSION: Left pleural effusion and pleural diaphragmatic reaction slightly increased compared to old exam. No gross heart failure. Stable cardiomegaly. There is clearing of pulmonary congestion comp ared to old exam.
[2019-02-07 19:14] LABS: Anisocytosis Slight; Basophils % (A) 0 %; Eosinophils # (A) 0.3 k/uL (0-0.7); Eosinophils % (A) 2 %; HGB 12.8 gm/dL (13.0-17.5); Lymphocytes # (A) 0.9 k/uL (1.0-4.8); Lymphocytes % (A) 7 %; MCH 27.9 pg (25.0-35.0); MCHC 33.6 g/dL (31.0-37.0); Mean Platelet Volume 8.5; Monocytes # (A) 0.6 k/uL (0-1.0); Monocytes % (A) 4 %; Neutrophils # (A) 11.1 k/uL (1.3-7.7); Neutrophils % (A) 85 %; Platelet Count 229 k/uL (150-450); Poikilocytosis Slight; RBC 4.57 m/uL (4.30-5.90); RDW 17.1 % (11.5-15.5)
[2019-02-07 19:21] LABS: INR 1.1 (<1.2); Partial Thromboplastin Time 39.1 sec (22.0-30.0); Prothrombin Time 11.3 sec (9.0-12.0)
[2019-02-07 19:28] LABS: Albumin 3.5 g/dL (3.5-5.0); Calcium 9.2 mg/dL (8.4-10.2); Potassium 2.9 mmol/L (3.5-5.1); Total Bilirubin 1.7 mg/dL (0.2-1.3); Total Protein 6.9 g/dL (6.3-8.2)
[2019-02-07] MEDS ORDERED: POTASSIUM CHLORIDE ER 20 MEQ TAB.ER PO STA (20:55)
[2019-02-07] MEDS ORDERED: FUROSEMIDE 10 MG/ML 4 ML VIAL IV STA (20:55)
[2019-02-07] MEDS ORDERED: DILTIAZEM 125 MG in SODIUM CHLORIDE 0.9% 100 ML IV SCH (21:00)
[2019-02-07] MEDS ORDERED: FUROSEMIDE 10 MG/ML 4 ML VIAL IV SCH (21:00)
[2019-02-07] MEDS ORDERED: POTASSIUM CHLORIDE 20 MEQ in WATER FOR INJECTION 1 100ML.BAG IVPB STA (21:15)
[2019-02-07 23:15] LABS: Glucose,Whole Blood 206 mg/dL (75-99)
[2019-02-07] MEDS: METOPROLOL TARTRATE 50 MG TAB PO SCH (23:17)
[2019-02-08] MEDS: NITROGLYCERIN SL TABS 0.4 MG TAB SUBLINGUAL PRN (00:01)
[2019-02-08] MEDS: IPRATROPIUM-ALBUTEROL 3 ML NEB INHALATION SCH ×7 (00:18→23:26)
[2019-02-08] MEDS: LEVOTHYROXINE 137 MCG TAB PO SCH (05:22)
[2019-02-08 06:34] LABS: Glucose,Whole Blood 202 mg/dL (75-99)
[2019-02-08] MEDS: INSULIN ASPART (NovoLOG) 100 UNIT/ML VIAL SQ SCH ×4 (06:35→20:53)
[2019-02-08 08:16] LABS: Calcium 9.1 mg/dL (8.4-10.2)
--- NOTE | 2019-02-08 10:29 | P.CRDCN ---
History of Present Illness Consult date: 02/08/19 Requesting physician: Jacobo Guerra Reason for Consult (text): CHF, rapid atrial fibrillation Chief complaint: right shoulder pain History of present illness: This 48-year-old gentleman who follows with Dr. JOHNNIE Wood in the office. He has a history of atrial fibrillation, asthma, CAD with prior stent placement, chronic kidney disease, obesity, COPD. Presents to the hospital this admission with complaints of right shoulder pain that radiates across his chest that is worse with breathing. He does have a cough with white sputum that is chronic. He says his breathing has been stable. He has been having a lot of issues dealing with his mother's health problems and has missed several days medication recently. He was found to be in atrial fibrillation with rapid ventricular response on admission. Currently on a Cardizem drip. Labs on admission showed white blood cell count of 13,000, potassium 2.9 with repeat this morning of 3 that is being replaced. BUN of 39 and creatinine 1.99 and a glucose of 329. Troponin was negative 1. NT proBNP is elevated at 6910 but is down from p revious admission in November which was 8150. Chest x-ray on admission showed left pleural effusion and pleural diaphragmatic reaction slightly increased compared to old exam, no gross heart failure, stable cardiomegaly and clearing of pulmonary congestion compared to old exam. Heart rate is reasonably well controlled this morning in the 80s and 90s. Upon examination, patient is resting hopefully in bed. He continues complaining of right shoulder pain that radiates across his chest and is worse with deep breathing. Appears that the shoulder pain is worse with his head of bed up as well. According to the patient he's been lifting his mother a lot which she normally does not do. Past Medical History Past Medical History: Atrial Fibrillation, Asthma, Coronary Artery Disease (CAD), Chest Pain / Angina, Heart Failure, COPD, Deep Vein Thrombosis (DVT), Hyperlipidemia, Hypertension, Myocardial Infarction (PA), Renal Disease, Sleep Apnea/CPAP/BIPAP, Thyroid Disorder, Vascular Disorder Additional Past Medical History / Comment(s): CHF, tracheobronchitis, CKD stage III, kidney stones, DVT L leg in 2004, KAMRYN without device use, colon abscess with bowel resection, multiple abdominal surgeries for a hiatal hernia that was complicated by prolonged hospitalization and prolonged ventilator dependent respiratory failure requiring a tracheostomy tube insertion, pvd-lower legs discolored/edematous, diverticular disease, chronic iron deficiency anemia, vertigo at times, Last Myocardial Infarction Date:: History of Any Multi-Drug Resistant Organisms: MRSA Date of last positivie culture/infection: 02/01/15 MDRO Source:: Abdomen Past Surgical History: Bowel Resection, Heart Catheterization With Stent, Hernia Repair Additional Past Surgical History / Comment(s): Colonoscopies, heart stents x 4, bowel resection with colostomy and colostomy reversal (removed a foot of pts colon)-2003, hernia repair with skin grafts and 2 fistula repairs (hospitalized for 1 year @[facility])-2010 MRSA 2014 in wounds. Past Anesthesia/Blood Transfusion Reactions: No Reported Reaction Additional Past Anesthesia/Blood Transfusion Reaction / Comment(s): Pt has received blood in past without reaction-2010 Date of Last Stent Placement:: 03/28/2015 Past Psychological History: Depression Additional Psychological History / Comment(s): PT IS DISABLED. PT LIVES WITH MOTHER AND 2 PET CATS AND 1 DOG. HOME HAS A RAMP. USES A CANE CURRENTLY-. NO OUTSIDE SERVICES RECIEVED. Smoking Status: Current some day smoker Past Alcohol Use History: None Reported Additional Past Alcohol Use History / Comment(s): STARTED SMOKING AGE 26, (1995) AND QUIT IN 2008. HE THEN RESUMED SMOKING IN 2015. PATIENT QUIT THIS YEAR IN NOVEMBER AND NOW SMOKES ONE TO TWO CIGARETTES A DAY. Past Drug Use History: None Reported - Past Family History Mother Family Medical History: Osteoarthritis (OA), Pneumonia Additional Family Medical History / Comment(s): osteoporosis. arthroscopy surgery for knee Father Family Medical History: Liver Disease, Renal Disease Additional Family Medical History / Comment(s): triple heart bypass. liver transplant. aortic aneursym Medications and Allergies Home Medications Medication Instructions Recorded Confirmed Type Loratadine [Claritin] 10 mg PO DAILY 10/19/13 02/07/19 History Sertraline [Zoloft] 100 mg PO HS 10/19/13 02/07/19 History Nitroglycerin Sl Tabs [Nitrostat] 0.4 mg SUBLINGUAL Q5M PRN #30 tab 12/03/14 02/07/19 Rx Atorvastatin [Lipitor] 80 mg PO HS 03/25/15 02/07/19 History Folic Acid 1 mg PO BID 03/25/15 02/07/19 History Levothyroxine Sodium [Synthroid] 137 mcg PO QAM 03/25/15 02/07/19 History Budesonide/Formoterol Fumarate 2 puff INHALATION RT-BID 08/01/16 02/07/19 History [Symbicort 160-4.5 Mcg Inhaler] Allopurinol [Zyloprim] 100 mg PO DAILY 12/17/17 02/07/19 History Ergocalciferol (Vitamin D2) 50,000 unit PO MO 05/05/18 02/07/19 History [Drisdol] Apixaban [Eliquis] 5 mg PO BID tab 06/03/18 02/07/19 Rx Albuterol Inhaler [Ventolin Hfa 1 - 2 puff INHALATION RT-QID PRN 09/17/18 02/07/19 History Inhaler] Albuterol Nebulized [Ventolin 2.5 mg INHALATION RT-QID PRN 09/17/18 02/07/19 History Nebulized] Insulin Detemir [Levemir Flextouch] 40 units SQ HS #100 units 10/28/18 02/07/19 Rx Metolazone [Zaroxolyn] 2.5 mg PO MOFR #0 10/28/18 02/07/19 Rx sitaGLIPtin [Januvia] 100 mg PO DAILY #30 tab 10/28/18 02/07/19 Rx Docusate [Colace] 100 mg PO DAILY 02/07/19 02/07/19 History Furosemide [Lasix] 20 mg PO DAILY@1200 02/07/19 02/07/19 History Furosemide [Lasix] 60 mg PO BID 02/07/19 02/07/19 History Metoprolol Tartrate [Lopressor] 50 mg PO TID 02/07/19 02/07/19 History Midodrine [ProAmatine] 5 mg PO BID 02/07/19 02/07/19 History Potassium Chloride ER [K-Dur 20] 20 meq PO BID 02/07/19 02/07/19 History Allergies Allergy/AdvReac Type Severity Reaction Status Date / Time adhesive Allergy "PLASTIC Verified 02/07/19 20:03 TAPE PEELS SKIN,PAPER TAPE IS OK" linezolid Allergy Unknown Verified 02/07/19 20:03 penicillin G Allergy Rash/Hives Verified 02/07/19 20:03 Cephalosporins AdvReac FEVER Verified 02/07/19 20:03 Physical Exam Vitals: Vital Signs Temp Pulse Pulse Resp BP BP Pulse Ox 02/08/19 06:45 92/57 02/08/19 03:26 82 20 109/67 96 02/08/19 00:30 132 H 02/08/19 00:20 125 H 02/07/19 22:11 99.4 F 137 H 20 99/77 97 02/07/19 22:10 97.8 F 109 H 22 132/78 95 02/07/19 21:28 129 H 18 119/105 99 02/07/19 19:32 135 H 02/07/19 19:22 134 H 02/07/19 18:24 98.3 F 139 H 20 141/97 97 Intake and Output 02/07/19 02/08/19 02/08/19 22:59 06:59 14:59 Output Total 250 Balance -250 Output: Urine 250 Other: Voiding Method Urinal # Voids 1 Weight 165.108 kg 149.2 kg PHYSICAL EXAMINATION: HEENT: Head is atraumatic, normocephalic. Pupils equal, round. Neck is supple. There is no elevated jugular venous pressure. HEART EXAMINATION: Heart sounds irregularly irregular, S1 and S2 normal. No murmur or gallop heard. CHEST EXAMINATION: Lungs reveal diminished air exchange bilaterally. Chest wall tenderness is noted with deep breathing. ABDOMEN: Soft, obese, nontender. Bowel sounds are heard. No organomegaly noted. EXTREMITIES: 2+ peripheral pulses with evidence of peripheral edema and skin changes consistent with chronic venous stasis. NEUROLOGIC patient is awake, alert and oriented x3. . Results 02/07/19 18:55 02/08/19 07:02 Cardiac Enzymes 02/07/19 02/07/19 Range/Units 18:55 18:55 AST 20 (17-59) U/L Troponin I <0.012 (0.000-0.034) ng/mL Coagulation 02/07/19 Range/Units 18:55 PT 11.3 (9.0-12.0) sec APTT 39.1 H (22.0-30.0) sec CBC 02/07/19 Range/Units 18:55 WBC 13.0 H (3.8-10.6) k/uL RBC 4.57 (4.30-5.90) m/uL Hgb 12.8 L (13.0-17.5) gm/dL Hct 38.0 L (39.0-53.0) % Plt Count 229 (150-450) k/uL Comprehensive Metabolic Panel 02/07/19 02/08/19 Range/Units 18:55 07:02 Sodium 130 L 134 L (137-145) mmol/L Potassium 2.9 L 3.0 L (3.5-5.1) mmol/L Chloride 81 L 84 L (98-107) mmol/L Carbon Dioxide 34 H 39 H (22-30) mmol/L BUN 39 H 40 H (9-20) mg/dL Creatinine 1.99 H 2.04 H (0.66-1.25) mg/dL Glucose 329 H 188 H (74-99) mg/dL Calcium 9.2 9.1 (8.4-10.2) mg/dL AST 20 (17-59) U/L ALT 19 L (21-72) U/L Alkaline Phosphatase 104 (38-126) U/L Total Protein 6.9 (6.3-8.2) g/dL Albumin 3.5 (3.5-5.0) g/dL Current Medications Generic Name Dose Route Start Last Admin Trade Name Freq PRN Reason Stop Dose Admin Albuterol/Ipratropium 3 ml 02/08/19 00:00 02/08/19 08:51 Duoneb 0.5 Mg-3 Mg/3 Ml Soln INHALATION Not Given Q4HR [facility] Allopurinol 100 mg 02/08/19 09:00 Zyloprim PO DAILY [facility] Apixaban 5 mg 02/08/19 09:00 Eliquis PO BID [facility] Atorvastatin Calcium 80 mg 02/08/19 21:00 Lipitor PO HS [facility] Docusate Sodium 100 mg 02/08/19 09:00 Colace PO DAILY [facility] Ergocalciferol 50,000 unit 02/09/19 09:00 Vitamin D2 PO Mo@0900 [facility] Folic Acid 1 mg 02/08/19 09:00 Folic Acid PO BID [facility] Furosemide 60 mg 02/08/19 09:00 Lasix PO BID [facility] Furosemide 20 mg 02/08/19 12:00 Lasix PO DAILY@1200 [facility] Diltiazem HCl 125 mg/ Sodium 125 mls @ 5 mls/hr 02/07/19 21:00 02/07/19 21:41 Chloride IV 5 mg/hr .Q24H [facility] 5 mls/hr Administration 5 MG/HR Insulin Aspart 0 unit 02/08/19 07:30 02/08/19 06:35 Novolog SQ 6 unit ACHS [facility] Administration Protocol Insulin Detemir 40 unit 02/08/19 21:00 Levemir SQ HS [facility] Levothyroxine Sodium 137 mcg 02/08/19 06:30 02/08/19 05:22 Synthroid PO 137 mcg DAILY@0630 [facility] Administration Linagliptin 5 mg 02/08/19 09:00 Tradjenta PO DAILY [facility] Loratadine 10 mg 02/08/19 09:00 Claritin PO DAILY [facility] Metolazone 2.5 mg 02/09/19 09:00 Zaroxolyn PO MoFr@0900 [facility] Metoprolol Tartrate 50 mg 02/07/19 22:00 02/07/19 23:17 Lopressor PO 50 mg TID [facility] Administration Midodrine 5 mg 02/08/19 09:00 Proamatine PO BID@0900,1700 [facility] Nitroglycerin 0.4 mg 02/07/19 21:01 02/08/19 00:01 Nitrostat SUBLINGUAL 0.4 mg Q5M PRN Administration Chest Pain Potassium Chloride 20 meq 02/08/19 09:00 K-Dur 20 PO BID [facility] Sertraline HCl 100 mg 02/08/19 21:00 Zoloft PO HS [facility] Intake and Output 02/07/19 02/08/19 02/08/19 22:59 06:59 14:59 Output Total 250 Balance -250 Output: Urine 250 Other: Voiding Method Urinal # Voids 1 Weight 165.108 kg 149.2 kg 02/07/19 18:55 02/08/19 07:02 Assessment and Plan Assessment: #1 chronic atrial fibrillation with rapid ventricular response, anticoagulated on Eliquis #2 chronic diastolic congestive heart failure, patient does not appear to be in acute failure at this time #3 COPD #4 poor medication compliance #5 right shoulder and chest discomfort appears to be musculoskeletal in origin #6 chronic kidney disease #7 history of CAD with prior stent placement #8 hypokalemia Plan: From cardiology's perspective, replace potassium. Discontinue IV cardizem and continue oral medications. Continue to monitor heart rates and blood pressures. Continue to monitor renal function and electrolytes. Further recommendations to follow. BISTRO ATTENDANT note has been reviewed, I agree with a documented findings and plan of care. Patient was seen and examined.
[2019-02-08] MEDS: APIXABAN 5 MG TAB PO SCH ×2 (10:44→20:52)
[2019-02-08] MEDS: ALLOPURINOL 100 MG TAB PO SCH (10:44)
[2019-02-08] MEDS: DOCUSATE 100 MG CAP PO SCH (10:44)
[2019-02-08] MEDS: FOLIC ACID 1 MG TAB PO SCH ×2 (10:45→20:52)
[2019-02-08] MEDS: LINAGLIPTIN 5 MG TABLET PO SCH (10:45)
[2019-02-08] MEDS: METOPROLOL TARTRATE 50 MG TAB PO SCH ×3 (10:45→20:52)
[2019-02-08] MEDS: LORATADINE 10 MG TAB PO SCH (10:45)
[2019-02-08] MEDS: FUROSEMIDE 20 MG TAB PO SCH ×3 (10:45→20:53)
[2019-02-08] MEDS: POTASSIUM CHLORIDE ER 20 MEQ TAB.ER PO SCH ×2 (10:46→20:52)
[2019-02-08] MEDS: MIDODRINE 5 MG TAB PO SCH ×2 (10:46→16:33)
[2019-02-08 12:31] LABS: Glucose,Whole Blood 195 mg/dL (75-99)
[2019-02-08] MEDS ORDERED: POTASSIUM CHLORIDE 20 MEQ in WATER FOR INJECTION 1 100ML.BAG IVPB ONE (13:00)
--- NOTE | 2019-02-08 15:39 | P.HPIM ---
History of Present Illness H&P Date: 02/08/19 Chief Complaint: Chest pain Patient is a 48-year-old male with a known history of CHF with ejection fraction 45-50%, coronary artery disease history of stent placement, paroxysmal reticulation on anticoagulation with Eliquis, COPD, obstructive sleep apnea on CPAP and morbid obesity and other multiple medical problems came to ER with complaints of right upper chest pain and shoulder pain radiating across his chest and shortness of breath. Patient says his chest pain gets worse with deep breathing. Denied any complaints of cough or sputum production. No fever no chills at home. Patient was found to have atrial fibrillation with rapid Rate in the ER. Patient was started on Cardizem drip. NT proBNP is 6910 WBC 13, potassium 2.9, BUN 13 and creatinine 1.99 blood sugar is 329. Sodium 130, chloride 81, bicarbonate 24 Patient has not been taking his medications regularly recently. Chest x-ray showed left pleural effusion and pleural diaphragmatic reaction slightly increased compared to old exam. No gross heart failure. Stable cardiomegaly. There is clearing of pulmonary congestion compared to old exam. Patient says that he has been assisting his mother more often recently. Review of Systems Constitutional: Patient denies any fever or chills . No generalized weakness or weight loss. Abdomen: Patient denied nausea vomiting and diarrhea and abdominal pain. Cardiovascular: Patient denies any chest pain or short of breath no palpitations. Respiratory: patient denied any cough is from production. No shortness of breath Neurologic: Patient denied any numbness or tingling headache. Musculoskeletal: Patient denies any complaints of joint swelling or deformity. Right shoulder pain. Skin: Negative Psychiatric: Negative Endocrine: No heat or cold intolerance. No recent weight gain. Genitourinary: No dysuria or hematuria. All other 14 point ROS negative except the above Past Medical History Past Medical History: Atrial Fibrillation, Asthma, Coronary Artery Disease (CAD), Chest Pain / Angina, Heart Failure, COPD, Deep Vein Thrombosis (DVT), Hyperlipidemia, Hypertension, Myocardial Infarction ([place]), Renal Disease, Sleep Apnea/CPAP/BIPAP, Thyroid Disorder, Vascular Disorder Additional Past Medical History / Comment(s): CHF, tracheobronchitis, CKD stage III, kidney stones, DVT L leg in 2004, KAMRYN without device use, colon abscess with bowel resection, multiple abdominal surgeries for a hiatal hernia that was complicated by prolonged hospitalization and prolonged ventilator dependent respiratory failure requiring a tracheostomy tube insertion, pvd-lower legs discolored/edematous, diverticular disease, chronic iron deficiency anemia, vertigo at times, Last Myocardial Infarction Date:: History of Any Multi-Drug Resistant Organisms: MRSA Date of last positivie culture/infection: 02/01/15 MDRO Source:: Abdomen Past Surgical History: Bowel Resection, Heart Catheterization With Stent, Hernia Repair Additional Past Surgical History / Comment(s): Colonoscopies, heart stents x 4, bowel resection with colostomy and colostomy reversal (removed a foot of pts colon)-2003, hernia repair with skin grafts and 2 fistula repairs (hospitalized for 1 year @[facility])-2010 MRSA 2014 in wounds. Past Anesthesia/Blood Transfusion Reactions: No Reported Reaction Additional Past Anesthesia/Blood Transfusion Reaction / Comment(s): Pt has received blood in past without reaction-2010 Date of Last Stent Placement:: 03/28/2015 Past Psychological History: Depression Additional Psychological History / Comment(s): PT IS DISABLED. PT LIVES WITH MOTHER AND 2 PET CATS AND 1 DOG. HOME HAS A RAMP. USES A CANE CURRENTLY-. NO OUTSIDE SERVICES RECIEVED. Smoking Status: Current some day smoker Past Alcohol Use History: None Reported Additional Past Alcohol Use History / Comment(s): STARTED SMOKING AGE 26, (1995) AND QUIT IN 2008. HE THEN RESUMED SMOKING IN 2015. PATIENT QUIT THIS YEAR IN NOVEMBER AND NOW SMOKES ONE TO TWO CIGARETTES A DAY. Past Drug Use History: None Reported - Past Family History Mother Family Medical History: Osteoarthritis (OA), Pneumonia Additional Family Medical History / Comment(s): osteoporosis. arthroscopy surgery for knee Father Family Medical History: Liver Disease, Renal Disease Additional Family Medical History / Comment(s): triple heart bypass. liver transplant. aortic aneursym Medications and Allergies Home Medications Medication Instructions Recorded Confirmed Type Loratadine [Claritin] 10 mg PO DAILY 10/19/13 02/07/19 History Sertraline [Zoloft] 100 mg PO HS 10/19/13 02/07/19 History Nitroglycerin Sl Tabs [Nitrostat] 0.4 mg SUBLINGUAL Q5M PRN #30 tab 12/03/14 02/07/19 Rx Atorvastatin [Lipitor] 80 mg PO HS 03/25/15 02/07/19 History Folic Acid 1 mg PO BID 03/25/15 02/07/19 History Levothyroxine Sodium [Synthroid] 137 mcg PO QAM 03/25/15 02/07/19 History Budesonide/Formoterol Fumarate 2 puff INHALATION RT-BID 08/01/16 02/07/19 History [Symbicort 160-4.5 Mcg Inhaler] Allopurinol [Zyloprim] 100 mg PO DAILY 12/17/17 02/07/19 History Ergocalciferol (Vitamin D2) 50,000 unit PO MO 05/05/18 02/07/19 History [Drisdol] Apixaban [Eliquis] 5 mg PO BID tab 06/03/18 02/07/19 Rx Albuterol Inhaler [Ventolin Hfa 1 - 2 puff INHALATION RT-QID PRN 09/17/18 02/07/19 History Inhaler] Albuterol Nebulized [Ventolin 2.5 mg INHALATION RT-QID PRN 09/17/18 02/07/19 History Nebulized] Insulin Detemir [Levemir Flextouch] 40 units SQ HS #100 units 10/28/18 02/07/19 Rx Metolazone [Zaroxolyn] 2.5 mg PO MOFR #0 10/28/18 02/07/19 Rx sitaGLIPtin [Januvia] 100 mg PO DAILY #30 tab 10/28/18 02/07/19 Rx Docusate [Colace] 100 mg PO DAILY 02/07/19 02/07/19 History Furosemide [Lasix] 20 mg PO DAILY@1200 02/07/19 02/07/19 History Furosemide [Lasix] 60 mg PO BID 02/07/19 02/07/19 History Metoprolol Tartrate [Lopressor] 50 mg PO TID 02/07/19 02/07/19 History Midodrine [ProAmatine] 5 mg PO BID 02/07/19 02/07/19 History Potassium Chloride ER [K-Dur 20] 20 meq PO BID 02/07/19 02/07/19 History Allergies Allergy/AdvReac Type Severity Reaction Status Date / Time adhesive Allergy "PLASTIC Verified 02/07/19 20:03 TAPE PEELS SKIN,PAPER TAPE IS OK" linezolid Allergy Unknown Verified 02/07/19 20:03 penicillin G Allergy Rash/Hives Verified 02/07/19 20:03 Cephalosporins AdvReac FEVER Verified 02/07/19 20:03 Physical Exam Vitals: Vital Signs Temp Pulse Pulse Resp BP BP Pulse Ox 02/08/19 09:40 98.8 F 101 H 18 94/59 94 L 02/08/19 06:45 92/57 02/08/19 03:26 82 20 109/67 96 02/08/19 00:30 132 H 02/08/19 00:20 125 H 02/07/19 22:11 99.4 F 137 H 20 99/77 97 02/07/19 22:10 97.8 F 109 H 22 132/78 95 02/07/19 21:28 129 H 18 119/105 99 02/07/19 19:32 135 H 02/07/19 19:22 134 H 02/07/19 18:24 98.3 F 139 H 20 141/97 97 Intake and Output 02/07/19 02/08/19 02/08/19 22:59 06:59 14:59 Output Total 250 600 Balance -250 -600 Output: Urine 250 600 Other: Voiding Method Urinal Urinal # Voids 1 Weight 165.108 kg 149.2 kg PHYSICAL EXAMINATION: Patient is lying in the bed comfortably, no acute distress, awake alert and oriented. Morbidly obese.. HEENT: Normocephalic. Neck is supple. Pupils reactive. Nostrils clear. Oral cavity is moist. Ears reveal no drainage. Neck reveals no JVD, carotid bruits, or thyromegaly. CHEST EXAMINATION: Trachea is central. Symmetrical expansion. Bibasilar dimi nished air entry. Lung [place] clear to auscultation and percussion. CARDIAC: Normal S1, S2 with no gallops. No murmurs ABDOMEN: Soft. Bowel sounds normal. No organomegaly. No abdominal bruits. Extremities: 1+ edema. No clubbing or cyanosis. Chronic venous stasis changes with discoloration. No ulcers. Neurologically awake, alert, oriented x3 with well-coordinated movements. No focal deficits noted Skin: No rash or skin lesions. Psychiatric: Coperative. Nonsuicidal Musculoskeletal: No joint swelling or deformity. Normal range of motion. Results CBC & Chem 7: 02/07/19 18:55 02/08/19 07:02 Labs: Abnormal Lab Results - Last 24 Hours (Table) 02/07/19 02/07/19 02/07/19 Range/Units 18:55 18:55 18:55 WBC 13.0 H (3.8-10.6) k/uL Hgb 12.8 L (13.0-17.5) gm/dL Hct 38.0 L (39.0-53.0) % RDW 17.1 H (11.5-15.5) % Neutrophils # 11.1 H (1.3-7.7) k/uL Lymphocytes # 0.9 L (1.0-4.8) k/uL APTT 39.1 H (22.0-30.0) sec Sodium 130 L (137-145) mmol/L Potassium 2.9 L (3.5-5.1) mmol/L Chloride 81 L (98-107) mmol/L Carbon Dioxide 34 H (22-30) mmol/L BUN 39 H (9-20) mg/dL Creatinine 1.99 H (0.66-1.25) mg/dL Glucose 329 H (74-99) mg/dL POC Glucose (mg/dL) (75-99) mg/dL Total Bilirubin 1.7 H (0.2-1.3) mg/dL ALT 19 L (21-72) U/L Creatine Kinase 30 L (55-170) U/L 02/07/19 02/08/19 02/08/19 Range/Units 23:13 06:32 07:02 WBC (3.8-10.6) k/uL Hgb (13.0-17.5) gm/dL Hct (39.0-53.0) % RDW (11.5-15.5) % Neutrophils # (1.3-7.7) k/uL Lymphocytes # (1.0-4.8) k/uL APTT (22.0-30.0) sec Sodium 134 L (137-145) mmol/L Potassium 3.0 L (3.5-5.1) mmol/L Chloride 84 L (98-107) mmol/L Carbon Dioxide 39 H (22-30) mmol/L BUN 40 H (9-20) mg/dL Creatinine 2.04 H (0.66-1.25) mg/dL Glucose 188 H (74-99) mg/dL POC Glucose (mg/dL) 206 H 202 H (75-99) mg/dL Total Bilirubin (0.2-1.3) mg/dL ALT (21-72) U/L Creatine Kinase (55-170) U/L Thrombosis Risk Factor Assmnt - DVT/VTE Prophylaxis DVT/VTE Prophylaxis: Pharmacologic Prophylaxis ordered - Choose All That Apply Any of the Below Risk Factors Present?: Yes Each Factor Represents 1 point: Abnormal pulmonary function (COPD), Acute [place], Age 41-60 years, Medical pt on bed rest, Obesity (BMI >25) Other Risk Factors: Yes Each Risk Factor Represents 3 Points: History of DVT/PE Thrombosis Risk Factor Assessment Total Risk Factor Score: 8 Thrombosis Risk Factor Assessment Level: High Risk Assessment and Plan Assessment: Right shoulder pain and upper chest discomfort likely musculoskeletal Atrial fibrillation with rapid ventricular rate Chronic atrial fibrillation on anticoagulation with Eliquis Chronic CHF with systolic and diastolic dysfunction ejection fraction 45-50%. Acute on chronic kidney disease stage III. Coronary artery disease with history of stent placement COPD stable Chronic hypoxic respiratory failure on home oxygen Hypertension Hyperglycemia with uncontrolled Diabetes type 2 insulin-dependent. Hyperlipidemia History of DVT Obstructive sleep apnea on CPAP at home Hypokalemia. Replaced Previous history of smoking Generalized weakness and poor medication complaints Morbid obesity BMI 44.9 Plan: Patient will be continued on pain management with. REPLACE POTASSIUM AND REPEAT POTASSIUM LEVEL. PATIENT IS ON CARDIZEM DRIP. Continue with oral metoprolol. Continue the home medications and follow-up repeat labs. PT OT will be c onsulted. Continue the pain management and bowel regimen. Insulin sliding scale. Further recommendations based on the clinical course.prognosis guarded. Time with Patient: Greater than 30
[2019-02-08 16:30] VITALS: BMI 45.8
[2019-02-08] MEDS: traMADol 50 MG TAB PO SCH ×2 (16:34→20:53)
[2019-02-08 17:12] LABS: Glucose,Whole Blood 240 mg/dL (75-99)
[2019-02-08 20:28] LABS: Glucose,Whole Blood 180 mg/dL (75-99)
[2019-02-08] MEDS: ATORVASTATIN 80 MG TAB PO SCH (20:52)
[2019-02-08] MEDS: INSULIN DETEMIR (LEVEMIR) 100 UNIT/ML SYR SQ SCH (20:53)
[2019-02-08] MEDS: SERTRALINE 100 MG TAB PO SCH (20:53)
[2019-02-08] MEDS ORDERED: INSULIN DETEMIR (LEVEMIR) 100 UNIT/ML SYR SQ SCH (21:00)
[2019-02-09] MEDS: IPRATROPIUM-ALBUTEROL 3 ML NEB INHALATION SCH ×5 (03:13→20:16)
[2019-02-09] MEDS: LEVOTHYROXINE 137 MCG TAB PO SCH (05:41)
[2019-02-09 06:11] LABS: Glucose,Whole Blood 138 mg/dL (75-99)
[2019-02-09] MEDS: INSULIN ASPART (NovoLOG) 100 UNIT/ML VIAL SQ SCH ×4 (06:15→20:47)
[2019-02-09 07:29] LABS: Anisocytosis Slight; Basophils # (A) 0.1 k/uL (0-0.2); Basophils % (A) 1 %; Eosinophils # (A) 0.2 k/uL (0-0.7); Eosinophils % (A) 2 %; HGB 12.3 gm/dL (13.0-17.5); Hypochromasia Slight; Lymphocytes # (A) 1.4 k/uL (1.0-4.8); Lymphocytes % (A) 12 %; MCH 27.1 pg (25.0-35.0); MCHC 32.5 g/dL (31.0-37.0); MCV 83.4 fL (80.0-100.0); Mean Platelet Volume 7.4; Monocytes # (A) 0.6 k/uL (0-1.0); Monocytes % (A) 6 %; Neutrophils # (A) 9.1 k/uL (1.3-7.7); Neutrophils % (A) 78 %; Platelet Count 227 k/uL (150-450); Poikilocytosis Slight; RBC 4.56 m/uL (4.30-5.90); RDW 17.3 % (11.5-15.5); WBC 11.7 k/uL (3.8-10.6)
[2019-02-09 07:58] LABS: Calcium 9.1 mg/dL (8.4-10.2)
[2019-02-09 08:23] LABS: Potassium 2.7 mmol/L (3.5-5.1)
[2019-02-09] MEDS ORDERED: Potassium Replacement Protocol 1 EACH MISC MISCELLANE PRN ×2 (08:32→15:57)
[2019-02-09] MEDS ORDERED: METOLAZONE 2.5 MG TAB PO SCH (09:00)
[2019-02-09] MEDS ORDERED: ERGOCALCIFEROL 50,000 UNIT CAP PO SCH (09:00)
[2019-02-09] MEDS: LORATADINE 10 MG TAB PO SCH (09:29)
[2019-02-09] MEDS: LINAGLIPTIN 5 MG TABLET PO SCH (09:29)
[2019-02-09] MEDS: METOPROLOL TARTRATE 50 MG TAB PO SCH ×3 (09:29→20:47)
[2019-02-09] MEDS: MIDODRINE 5 MG TAB PO SCH ×2 (09:29→16:23)
[2019-02-09] MEDS: POTASSIUM CHLORIDE ER 20 MEQ TAB.ER PO SCH ×5 (09:29→20:51)
[2019-02-09] MEDS: APIXABAN 5 MG TAB PO SCH ×2 (09:29→20:46)
[2019-02-09] MEDS: traMADol 50 MG TAB PO SCH ×3 (09:30→20:48)
[2019-02-09] MEDS: FUROSEMIDE 20 MG TAB PO SCH ×3 (09:31→20:46)
[2019-02-09] MEDS: ALLOPURINOL 100 MG TAB PO SCH (09:32)
[2019-02-09] MEDS: FOLIC ACID 1 MG TAB PO SCH ×2 (09:32→20:46)
[2019-02-09] MEDS: DOCUSATE 100 MG CAP PO SCH (09:32)
--- NOTE | 2019-02-09 12:01 | P.PN ---
Subjective Progress Note Date: 02/09/19 This 48-year-old gentleman who follows with Dr. JOHNNIE Wood in the office. He has a history of atrial fibrillation, asthma, CAD with prior stent placement, chronic kidney disease, obesity, COPD. Presents to the hospital this admission with complaints of right shoulder pain that radiates across his chest that is worse with breathing. He does have a cough with white sputum that is chronic. He says his breathing has been stable. He has been having a lot of issues dealing with his mother's health problems and has missed several days medication recently. He was found to be in atrial fibrillation with rapid ventricular response on admission. Currently on a Cardizem drip. Labs on admission showed white blood cell count of 13,000, potassium 2.9 with repeat this morning of 3 that is being replaced. BUN of 39 and creatinine 1.99 and a glucose of 329. Troponin was negative 1. NT proBNP is elevated at 6910 but is down from previous admission in November which was 8150. Chest x-ray on admission showed left pleural effusion and pleural diaphragmatic reaction slightly increased compared to old exam, no gross heart failure, stable cardiomegaly and clearing of pulmonary congestion compared to old exam. Heart rate is reasonably well controlled this morning in the 80s and 90s. Upon examination, patient is resting hopefully in bed. He continues complaining of right shoulder pain that radiates across his chest and is worse with deep breathing. Appears that the shoulder pain is worse with his head of bed up as well. According to the patient he's been lifting his mother a lot which she normally does not do. 02/09/2019 A shunt seen and examined this morning, complaining of bilateral shoulder discomfort, some atypical chest pains with deep breathing only. Hemodynamically he is stable. Blood pressure 94/50 with a heart rate in the 90s, denies any dizziness, no palpitations. Potassium today 2.7 which is currently being replaced. BUN 39 and creatinine 1.9. Objective - Vital Signs Vital signs: Vital Signs Temp 97.6 F 02/09/19 02:55 Pulse 94 02/09/19 08:45 Resp 16 02/09/19 11:33 BP 108/66 02/09/19 08:00 Pulse Ox 96 02/09/19 08:32 Intake & Output 08/25/19 08/26/19 08/26/19 18:59 06:59 18:59 Intake Total 430 Output Total 1200 400 Balance -770 -400 Weight 149.2 kg 155 kg Intake: Oral 430 Output: Urine 1200 400 Other: Voiding Method Urinal Urinal # Voids 1 - Exam PHYSICAL EXAMINATION: HEENT: Head is atraumatic, normocephalic. Pupils equal, round. Neck is supple. There is no elevated jugular venous pressure. HEART EXAMINATION: Heart sounds irregularly irregular, S1 and S2 normal. No mur mur or gallop heard. CHEST EXAMINATION: Lungs reveal diminished air exchange bilaterally. Chest wall tenderness is noted with deep breathing. ABDOMEN: Soft, obese, nontender. Bowel sounds are heard. No organomegaly noted. EXTREMITIES: 2+ peripheral pulses with evidence of peripheral edema and skin changes consistent with chronic venous stasis. NEUROLOGIC patient is awake, alert and oriented x3. - Labs CBC & Chem 7: 02/09/19 06:33 02/09/19 06:33 Labs: Abnormal Lab Results - Last 24 Hours (Table) 02/08/19 02/08/19 02/08/19 Range/Units 12:16 16:59 20:26 WBC (3.8-10.6) k/uL Hgb (13.0-17.5) gm/dL Hct (39.0-53.0) % RDW (11.5-15.5) % Neutrophils # (1.3-7.7) k/uL Sodium (137-145) mmol/L Potassium (3.5-5.1) mmol/L Chloride (98-107) mmol/L Carbon Dioxide (22-30) mmol/L BUN (9-20) mg/dL Creatinine (0.66-1.25) mg/dL Glucose (74-99) mg/dL POC Glucose (mg/dL) 195 H 240 H 180 H (75-99) mg/dL 02/09/19 02/09/19 02/09/19 Range/Units 06:09 06:33 06:33 WBC 11.7 H (3.8-10.6) k/uL Hgb 12.3 L (13.0-17.5) gm/dL Hct 38.0 L (39.0-53.0) % RDW 17.3 H (11.5-15.5) % Neutrophils # 9.1 H (1.3-7.7) k/uL Sodium 135 L (137-145) mmol/L Potassium 2.7 L* (3.5-5.1) mmol/L Chloride 86 L (98-107) mmol/L Carbon Dioxide 40 H (22-30) mmol/L BUN 39 H (9-20) mg/dL Creatinine 1.93 H (0.66-1.25) mg/dL Glucose 126 H (74-99) mg/dL POC Glucose (mg/dL) 138 H (75-99) mg/dL Assessment and Plan Plan: Assessment: #1 chronic atrial fibrillation with rapid ventricular response, anticoagulated on Eliquis #2 chronic diastolic congestive heart failure, patient does not appear to be in acute failure at this time #3 COPD #4 poor medication compliance #5 right shoulder and chest discomfort appears to be musculoskeletal in origin #6 chronic kidney disease #7 history of CAD with prior stent placement #8 hypokalemia Plan From cardiology's perspective, we'll recommend to replace his potassium, continue on the rest of his medications. DNP note has been reviewed, I agree with a documented findings and plan of care. Patient was seen and examined.
[2019-02-09 12:04] LABS: Glucose,Whole Blood 189 mg/dL (75-99)
[2019-02-09] MEDS ORDERED: POTASSIUM CHLORIDE 10 MEQ in WATER FOR INJECTION 1 100ML.BAG IVPB SCH (16:00)
[2019-02-09] MEDS ORDERED: POTASSIUM CHLORIDE ER 20 MEQ TAB.ER PO STA (16:56)
[2019-02-09 16:57] LABS: Glucose,Whole Blood 180 mg/dL (75-99)
[2019-02-09 20:46] LABS: Glucose,Whole Blood 197 mg/dL (75-99)
[2019-02-09] MEDS: ATORVASTATIN 80 MG TAB PO SCH (20:47)
[2019-02-09] MEDS: SERTRALINE 100 MG TAB PO SCH (20:47)
[2019-02-09] MEDS: INSULIN DETEMIR (LEVEMIR) 100 UNIT/ML SYR SQ SCH (20:47)
--- NOTE | 2019-02-09 21:50 | P.PN ---
Subjective Progress Note Date: 02/09/19 Principal diagnosis: Right-sided chest pain chronic CHF and severe hypokalemia Patient is a 48-year-old male with a known history of CHF with ejection fraction 45-50%, coronary artery disease history of stent placement, paroxysmal reticulation on anticoagulation with Eliquis, COPD, obstructive sleep apnea on CPAP and morbid obesity and other multiple medical problems came to ER with complaints of right upper chest pain and shoulder pain radiating across his chest and shortness of breath. Patient says his chest pain gets worse with deep breathing. Denied any complaints of cough or sputum production. No fever no chills at home. Patient was found to have atrial fibrillation with rapid Rate in the ER. Patient was started on Cardizem drip. NT proBNP is 6910 WBC 13, potassium 2.9, BUN 13 and creatinine 1.99 blood sugar is 329. Sodium 130, chloride 81, bicarbonate 24 Patient has not been taking his medications regularly recently. Chest x-ray showed left pleural effusion and pleural diaphragmatic reaction slightly increased compared to old exam. No gross heart failure. Stable cardiomegaly. There is clearing of pulmonary congestion compared to old exam. Patient says that he has been assisting his mother more often recently. 02/09/2019 Patient denied any complaints of chest pain or shortness of breath today. Patient is being continued on oral Lasix. Otherwise progression as well as 2.7 today. Which is being replaced. No fever no chills. No nausea vomiting or diarrhea. No other acute overnight issues. Cardiology is following. Anticipate discharge in next 24 hours. Current medications reviewed. Objective - Vital Signs Vital signs: Vital Signs Temp 97.6 F 02/09/19 02:55 Pulse 90 02/09/19 16:25 Resp 16 02/09/19 16:00 BP 105/57 02/09/19 16:00 Pulse Ox 99 02/09/19 16:00 Intake & Output 02/09/19 02/09/19 02/10/19 06:59 18:59 06:59 Intake Total 960 Output Total 400 1125 Balance -400 -165 Weight 155 kg Intake: Oral 960 Output: Urine 400 1125 Other: Voiding Method Urinal # Voids 1 - Exam PHYSICAL EXAMINATION: Patient is lying in the bed comfortably, no acute distress, awake alert and oriented. Morbidly obese.. HEENT: Normocephalic. Neck is supple. Pupils reactive. Nostrils clear. Oral cavity is moist. Ears reveal no drainage. Neck reveals no JVD, carotid bruits, or thyromegaly. CHEST EXAMINATION: Trachea is central. Symmetrical expansion. Bibasilar diminished air entry. Lung [place] clear to auscultation and percussion. CARDIAC: Normal S1, S2 with no gallops. No murmurs ABDOMEN: Soft. Bowel sounds normal. No organomegaly. No abdominal bruits. Extremities: 1+ edema. No clubbing or cyanosis. Chronic venous stasis changes with discoloration. No ulcers. Neurologically awake, alert, oriented x3 with well-coordinated movements. No focal deficits noted Skin: No rash or skin lesions. Psychiatric: Coperative. Nonsuicidal Musculoskeletal: No joint swelling or deformity. Normal range of motion. - Labs CBC & Chem 7: 02/09/19 06:33 02/09/19 06:33 Labs: Abnormal Lab Results - Last 24 Hours (Table) 02/09/19 02/09/19 02/09/19 Range/Units 06:09 06:33 06:33 WBC 11.7 H (3.8-10.6) k/uL Hgb 12.3 L (13.0-17.5) gm/dL Hct 38.0 L (39.0-53.0) % RDW 17.3 H (11.5-15.5) % Neutrophils # 9.1 H (1.3-7.7) k/uL Sodium 135 L (137-145) mmol/L Potassium 2.7 L* (3.5-5.1) mmol/L Chloride 86 L (98-107) mmol/L Carbon Dioxide 40 H (22-30) mmol/L BUN 39 H (9-20) mg/dL Creatinine 1.93 H (0.66-1.25) mg/dL Glucose 126 H (74-99) mg/dL POC Glucose (mg/dL) 138 H (75-99) mg/dL 02/09/19 02/09/19 02/09/19 Range/Units 11:59 16:56 20:44 WBC (3.8-10.6) k/uL Hgb (13.0-17.5) gm/dL Hct (39.0-53.0) % RDW (11.5-15.5) % Neutrophils # (1.3-7.7) k/uL Sodium (137-145) mmol/L Potassium (3.5-5.1) mmol/L Chloride (98-107) mmol/L Carbon Dioxide (22-30) mmol/L BUN (9-20) mg/dL Creatinine (0.66-1.25) mg/dL Glucose (74-99) mg/dL POC Glucose (mg/dL) 189 H 180 H 197 H (75-99) mg/dL Assessment and Plan Assessment: Right shoulder pain and upper chest discomfort likely musculoskeletal or improved now Severe hypokalemia Atrial fibrillation with rapid ventricular rate controlled now. Chronic atrial fibrillation on anticoagulation with Eliquis Chronic CHF with systolic and diastolic dysfunction ejection fraction 45-50%. Acute on chronic kidney disease stage III. Coronary artery disease with history of stent placement COPD stable Chronic hypoxic respiratory failure on home oxygen Hypertension Hyperglycemia with uncontrolled Diabetes type 2 insulin-dependent. Hyperlipidemia History of DVT Obstructive sleep apnea on CPAP at home Hypokalemia. Replaced Previous history of smoking Generalized weakness and poor medication complaints Morbid obesity BMI 44.9 Plan: Patient will be continued on pain management with. REPLACE POTASSIUM AND REPEAT POTASSIUM LEVEL. PATIENT IS ON CARDIZEM DRIP. Continue with oral metoprolol. Continue the home medications and follow-up repeat labs. PT OT will be consulted. Continue the pain management and bowel regimen. Insulin sliding scale. Further recommendations based on the clinical course.prognosis guarded. Time with Patient: Greater than 30
[2019-02-10] MEDS: traMADol 50 MG TAB PO SCH (05:25)
[2019-02-10 06:25] LABS: Glucose,Whole Blood 138 mg/dL (75-99)
[2019-02-10] MEDS: INSULIN ASPART (NovoLOG) 100 UNIT/ML VIAL SQ SCH ×2 (06:26→12:10)
[2019-02-10] MEDS: LEVOTHYROXINE 137 MCG TAB PO SCH (06:32)
[2019-02-10 07:33] LABS: Anisocytosis Slight; Basophils # (A) 0.1 k/uL (0-0.2); Basophils % (A) 0 %; Eosinophils # (A) 0.3 k/uL (0-0.7); Eosinophils % (A) 3 %; HCT 39.6 % (39.0-53.0); HGB 12.8 gm/dL (13.0-17.5); Hypochromasia Slight; Lymphocytes # (A) 1.2 k/uL (1.0-4.8); Lymphocytes % (A) 11 %; MCH 27.1 pg (25.0-35.0); MCHC 32.4 g/dL (31.0-37.0); MCV 83.8 fL (80.0-100.0); Mean Platelet Volume 7.3; Monocytes # (A) 0.6 k/uL (0-1.0); Monocytes % (A) 5 %; Neutrophils # (A) 8.9 k/uL (1.3-7.7); Neutrophils % (A) 79 %; Platelet Count 255 k/uL (150-450); Poikilocytosis Slight; RBC 4.72 m/uL (4.30-5.90); RDW 17.2 % (11.5-15.5); WBC 11.2 k/uL (3.8-10.6)
[2019-02-10] MEDS: IPRATROPIUM-ALBUTEROL 3 ML NEB INHALATION SCH ×3 (07:38→16:13)
[2019-02-10 07:48] LABS: Potassium 3.2 mmol/L (3.5-5.1)
[2019-02-10 07:50] LABS: Calcium 9.3 mg/dL (8.4-10.2)
[2019-02-10] MEDS ORDERED: Potassium Replacement Protocol 1 EACH MISC MISCELLANE PRN (08:09)
[2019-02-10] MEDS: NITROGLYCERIN SL TABS 0.4 MG TAB SUBLINGUAL PRN (08:50)
[2019-02-10] MEDS: POTASSIUM CHLORIDE ER 20 MEQ TAB.ER PO SCH ×2 (08:51→08:52)
[2019-02-10] MEDS: MIDODRINE 5 MG TAB PO SCH (08:53)
[2019-02-10] MEDS: METOPROLOL TARTRATE 50 MG TAB PO SCH (08:53)
[2019-02-10] MEDS: FOLIC ACID 1 MG TAB PO SCH (08:53)
[2019-02-10] MEDS: LORATADINE 10 MG TAB PO SCH (08:53)
[2019-02-10] MEDS: ALLOPURINOL 100 MG TAB PO SCH (08:54)
[2019-02-10] MEDS: FUROSEMIDE 20 MG TAB PO SCH ×2 (08:54→12:10)
[2019-02-10] MEDS: LINAGLIPTIN 5 MG TABLET PO SCH (08:54)
[2019-02-10] MEDS: DOCUSATE 100 MG CAP PO SCH (08:54)
[2019-02-10] MEDS: APIXABAN 5 MG TAB PO SCH (08:54)
[2019-02-10 09:03] VITALS: RESP 16; TEMP 98.4
[2019-02-10 11:30] LABS: Glucose,Whole Blood 174 mg/dL (75-99)
[2019-02-10 12:14] VITALS: BP 88/64; PULSE 100
[2019-02-10] MEDS ORDERED: POTASSIUM CHLORIDE ER 20 MEQ TAB.ER PO STA (13:14)
--- NOTE | 2019-02-10 13:15 | P.PN ---
Subjective Progress Note Date: 02/10/19 This 48-year-old gentleman who follows with Dr. JOHNNIE Wood in the office. He has a history of atrial fibrillation, asthma, CAD with prior stent placement, chronic kidney disease, obesity, COPD. Presents to the hospital this admission with complaints of right shoulder pain that radiates across his chest that is worse with breathing. He does have a cough with white sputum that is chronic. He says his breathing has been stable. He has been having a lot of issues dealing with his mother's health problems and has missed several days medication recently. He was found to be in atrial fibrillation with rapid ventricular response on admission. Currently on a Cardizem drip. Labs on admission showed white blood cell count of 13,000, potassium 2.9 with repeat this morning of 3 that is being replaced. BUN of 39 and creatinine 1.99 and a glucose of 329. Troponin was negative 1. NT proBNP is elevated at 6910 but is down from previous admission in November which was 8150. Chest x-ray on admission showed left pleural effusion and pleural diaphragmatic reaction slightly increased compared to old exam, no gross heart failure, stable cardiomegaly and clearing of pulmonary congestion compared to old exam. Heart rate is reasonably well controlled this morning in the 80s and 90s. Upon examination, patient is resting hopefully in bed. He continues complaining of right shoulder pain that radiates across his chest and is worse with deep breathing. Appears that the shoulder pain is worse with his head of bed up as well. According to the patient he's been lifting his mother a lot which she normally does not do. 02/09/2019 Patient seen and examined this morning, complaining of bilateral shoulder discomfort, some atypical chest pains with deep breathing only. Hemodynamically he is stable. Blood pressure 94/50 with a heart rate in the 90s, denies any dizziness, no palpitations. Potassium today 2.7 which is currently being replaced. BUN 39 and creatinine 1.9. 02/10/2019 Patient was seen and examined this morning, complaining of chest pain that worsens with deep breathing and on chest wall palpation. He has not yet been out of bed, not even up in the chair yet. Blood pressure 90/60 with a heart rate in the 100, 94% on 2 L of oxygen. White blood cell count 11.2, hemoglobin 12.8, platelet count 255. Sodium 134, potassium 3.2, BUN 45, creatinine 1.9. Objective - Vital Signs Vital signs: Vital Signs Temp 98.4 F 02/10/19 08:00 Pulse 100 02/10/19 12:00 Resp 16 02/10/19 12:00 BP 88/64 02/10/19 12:00 Pulse Ox 94 L 02/10/19 12:00 Intake & Output 02/09/19 02/10/19 02/10/19 18:59 06:59 18:59 Intake Total 960 Output Total 1125 830 Balance -165 -830 Weight 155 kg Intake: Oral 960 Output: Urine 1125 830 Other: Voiding Method Urinal Urinal # Voids 1 - Exam PHYSICAL EXAMINATION: HEENT: Head is atraumatic, normocephalic. Pupils equal, round. Neck is supple. There is no elevated jugular venous pressure. HEART EXAMINATION: Heart sounds irregularly irregular, S1 and S2 normal. No murmur or gallop heard. CHEST EXAMINATION: Lungs reveal diminished air exchange bilaterally. Chest wall tenderness is noted with deep breathing, and on palpation of the chest wall ABDOMEN: Soft, obese, nontender. Bowel sounds are heard. No organomegaly noted. EXTREMITIES: 2+ peripheral pulses with evidence of peripheral edema and skin changes consistent with chronic venous stasis. NEUROLOGIC patient is awake, alert and oriented x3. - Labs CBC & Chem 7: 02/10/19 06:49 02/10/19 06:49 Labs: Abnormal Lab Results - Last 24 Hours (Table) 02/09/19 02/09/19 02/10/19 Range/Units 16:56 20:44 06:24 WBC (3.8-10.6) k/uL Hgb (13.0-17.5) gm/dL RDW (11.5-15.5) % Neutrophils # (1.3-7.7) k/uL Sodium (137-145) mmol/L Potassium (3.5-5.1) mmol/L Chloride (98-107) mmol/L Carbon Dioxide (22-30) mmol/L BUN (9-20) mg/dL Creatinine (0.66-1.25) mg/dL Glucose (74-99) mg/dL POC Glucose (mg/dL) 180 H 197 H 138 H (75-99) mg/dL 0802/10/19 02/10/19 Range/Units 06:49 06:49 11:29 WBC 11.2 H (3.8-10.6) k/uL Hgb 12.8 L (13.0-17.5) gm/dL RDW 17.2 H (11.5-15.5) % Neutrophils # 8.9 H (1.3-7.7) k/uL Sodium 134 L (137-145) mmol/L Potassium 3.2 L (3.5-5.1) mmol/L Chloride 85 L (98-107) mmol/L Carbon Dioxide 37 H (22-30) mmol/L BUN 45 H (9-20) mg/dL Creatinine 1.96 H (0.66-1.25) mg/dL Glucose 136 H (74-99) mg/dL POC Glucose (mg/dL) 174 H (75-99) mg/dL Assessment and Plan Plan: Assessment: #1 chronic atrial fibrillation with rapid ventricular response, anticoagulated on Eliquis #2 chronic diastolic congestive heart failure, patient does not appear to be in acute failure at this time #3 COPD #4 poor medication compliance #5 right shoulder and chest discomfort appears to be musculoskeletal in origin #6 chronic kidney disease #7 history of CAD with prior stent placement #8 hypokalemia Plan From cardiology's perspective, we'll recommend to replace his potassium, continue on the rest of his medications. We will follow him along with you now on an as-needed basis only, please to hesitate to call with any questions. DNP note has been reviewed, I agree with a documented findings and plan of care. Patient was seen and examined.
== END 2019-02-10 16:32 | disposition home or self-care (01) | DRG 309 ==
LOC: EC 18:22 → 3SCARD 21:04
PROVIDERS: ADMIT Internal Medicine; ATTEND Internal Medicine
DX: I48.2 Chronic atrial fibrillation (principal); I13.0 Hypertensive heart and chronic kidney disease with heart failure and stage 1 through stage 4 chronic kidney disease, or unspecified chronic kidney disease; I50.42 Chronic combined systolic (congestive) and diastolic (congestive) heart failure; J96.11 Chronic respiratory failure with hypoxia; N17.9 Acute kidney failure, unspecified; E11.22 Type 2 diabetes mellitus with diabetic chronic kidney disease; E11.65 Type 2 diabetes mellitus with hyperglycemia; Z79.01 Long term (current) use of anticoagulants; Z79.890 Hormone replacement therapy; Z79.84 Long term (current) use of oral hypoglycemic drugs; Z79.51 Long term (current) use of inhaled steroids; Z79.899 Other long term (current) drug therapy; E78.5 Hyperlipidemia, unspecified; E87.6 Hypokalemia; F17.210 Nicotine dependence, cigarettes, uncomplicated; F32.9 Major depressive disorder, single episode, unspecified; G47.33 Obstructive sleep apnea (adult) (pediatric); Z99.89 Dependence on other enabling machines and devices; Z99.81 Dependence on supplemental oxygen; I25.10 Atherosclerotic heart disease of native coronary artery without angina pectoris; I25.2 Old myocardial infarction; J44.9 Chronic obstructive pulmonary disease, unspecified; N18.3 Chronic kidney disease, stage 3 (moderate); Z79.4 Long term (current) use of insulin; Z82.62 Family history of osteoporosis; Z86.14 Personal history of Methicillin resistant Staphylococcus aureus infection; Z86.718 Personal history of other venous thrombosis and embolism; Z87.442 Personal history of urinary calculi; Z91.14 Patient's other noncompliance with medication regimen; Z95.5 Presence of coronary angioplasty implant and graft; Z82.61 Family history of arthritis; Z83.6 Family history of other diseases of the respiratory system; Z82.49 Family history of ischemic heart disease and other diseases of the circulatory system; Z84.1 Family history of disorders of kidney and ureter; Z83.79 Family history of other diseases of the digestive system; Z90.49 Acquired absence of other specified parts of digestive tract; K57.90 Diverticulosis of intestine, part unspecified, without perforation or abscess without bleeding; M25.511 Pain in right shoulder; Z88.1 Allergy status to other antibiotic agents; Z88.0 Allergy status to penicillin; Z88.8 Allergy status to other drugs, medicaments and biological substances
CPT/HCPCS: 36415; 71046; 80048; 80053; 82550; 83690; 83735; 83880; 84484; 85025; 85610; 85730; 93005; 94640; 94760; 96365; 96368; 96375; 99291

== ENCOUNTER 2019-05-13 18:13 | Observation (INO) | payer MEDICARE, OTHER ==
[2019-05-13] MEDS ORDERED: IPRATROPIUM-ALBUTEROL 3 ML NEB INHALATION STA ×2 (18:57→20:58)
[2019-05-13 19:13] LABS: Anisocytosis Slight; Basophils % (A) 1 %; Eosinophils # (A) 0.2 k/uL (0-0.7); Eosinophils % (A) 4 %; HCT 36.9 % (39.0-53.0); HGB 12.1 gm/dL (13.0-17.5); Hypochromasia Slight; Lymphocytes # (A) 0.9 k/uL (1.0-4.8); Lymphocytes % (A) 16 %; MCH 28.1 pg (25.0-35.0); MCHC 32.7 g/dL (31.0-37.0); MCV 85.8 fL (80.0-100.0); Mean Platelet Volume 7.6; Monocytes # (A) 0.3 k/uL (0-1.0); Monocytes % (A) 4 %; Neutrophils # (A) 4.4 k/uL (1.3-7.7); Neutrophils % (A) 75 %; Platelet Count 154 k/uL (150-450); Poikilocytosis Moderate; RDW 17.1 % (11.5-15.5); WBC 5.9 k/uL (3.8-10.6)
[2019-05-13 19:22] LABS: Albumin 3.9 g/dL (3.5-5.0); Calcium 9.5 mg/dL (8.4-10.2); Total Bilirubin 1.7 mg/dL (0.2-1.3); Total Protein 7.4 g/dL (6.3-8.2)
[2019-05-13 19:24] LABS: Partial Thromboplastin Time 32.4 sec (22.0-30.0)
--- NOTE | 2019-05-13 19:32 | XR ---
EXAMINATION TYPE: XR chest 2V DATE OF EXAM: 05/13/2019 COMPARISON: 02/07 19 HISTORY: Difficulty breathing. Chest pain TECHNIQUE: Frontal and lateral views of the chest are obtained. FINDINGS: There is some blunting of the costophrenic angles. Heart is enlarged. There is mild pulmon win congestion. IMPRESSION: There is probably mild heart failure that is new compared to last exam. Small pleural ef fusions.
[2019-05-13 19:38] LABS: Potassium 3.9 mmol/L (3.5-5.1)
--- NOTE | 2019-05-13 20:02 | ED ---
Chest Pain HPI - General Chief Complaint: Chest Pain Stated Complaint: CRISTIAN, CHEST PAIN Time Seen by Provider: 05/13/19 18:20 Source: patient Mode of arrival: wheelchair Limitations: no limitations - History of Present Illness Initial Comments: The patient is a 48-year-old male with past medical history of A. fib, asthma, coronary artery disease and heart failure who presents to the emergency department with reported shortness of breath. He states it's been persistent for the past week. He normally wears 2 L of oxygen at all times and states that he has been more short of breath especially with exertion. He has been taking his Lasix as directed. He takes 60 twice a day as well as an additional 20 mg in the middle of the day. His Dr. Wood from cardiology. He admits to mild chest squeezing. Last cardiac cath was 3 years ago. Patient does have stent placement. He admits to a productive cough with white sputum. Denies hemoptysis. No ripping or tearing sensation to his back. Denies any unilateral numbness or weakness. No fevers or chills. Denies any nausea or vomiting. No abdominal pain or changes in his bowel or bladder habits. Admits to increased peripheral edema. There are no alleviating, precipitating or modifying factors - Related Data Home Medications Medication Instructions Recorded Confirmed Sertraline [Zoloft] 100 mg PO HS 10/19/13 05/13/19 Atorvastatin [Lipitor] 80 mg PO HS 03/25/15 05/13/19 Folic Acid 1 mg PO BID 03/25/15 05/13/19 Levothyroxine Sodium [Synthroid] 137 mcg PO QAM 03/25/15 05/13/19 Budesonide/Formoterol Fumarate 2 puff INHALATION RT-BID 08/01/16 05/13/19 [Symbicort 160-4.5 Mcg Inhaler] Allopurinol [Zyloprim] 100 mg PO DAILY 12/17/17 05/13/19 Ergocalciferol (Vitamin D2) 50,000 unit PO MO 05/05/18 05/13/19 [Drisdol] Albuterol Inhaler [Ventolin Hfa 1 - 2 puff INHALATION RT-QID PRN 09/17/18 05/13/19 Inhaler] Albuterol Nebulized [Ventolin 2.5 mg INHALATION RT-QID PRN 09/17/18 05/13/19 Nebulized] Metoprolol Tartrate [Lopressor] 100 mg PO BID 05/13/19 05/13/19 Previous Rx's Medication Instructions Recorded Nitroglycerin Sl Tabs [Nitrostat] 0.4 mg SUBLINGUAL Q5M PRN #30 tab 12/03/14 Apixaban [Eliquis] 5 mg PO BID tab 06/03/18 Metolazone [Zaroxolyn] 2.5 mg PO MOFR #0 10/28/18 Furosemide [Lasix] 80 mg PO BID #0 05/15/19 Potassium Chloride ER [K-Dur 20] 30 meq PO BID #0 05/15/19 Allergies Allergy/AdvReac Type Severity Reaction Status Date / Time adhesive Allergy "PLASTIC Verified 05/13/19 19:07 TAPE PEELS SKIN,PAPER TAPE IS OK" linezolid Allergy Unknown Verified 05/13/19 19:07 penicillin G Allergy Rash/Hives Verified 05/13/19 19:07 Cephalosporins AdvReac FEVER Verified 05/13/19 19:07 Review of Systems ROS Statement: Those systems with pertinent positive or pertinent negative responses have been documented in the HPI. ROS Other: All systems not noted in ROS Statement are negative. EKG Findings - EKG Comments: EKG Findings:: EKG demonstrates age or fibrillation with a rate of 117. QRS 92. QTC 488. There are PVCs. No acute ST segment elevation depressions concerning for ischemic changes Past Medical History Past Medical History: Atrial Fibrillation, Asthma, Coronary Artery Disease (CAD), Chest Pain / Angina, Heart Failure, COPD, Deep Vein Thrombosis (DVT), Hyperlipidemia, Hypertension, Myocardial Infarction (CT), Renal Disease, Sleep Apnea/CPAP/BIPAP, Thyroid Disorder, Vascular Disorder Additional Past Medical History / Comment(s): CHF, tracheobronchitis, CKD stage III, kidney stones, DVT L leg in 2004, KAMRYN without device use, colon abscess with bowel resection, multiple abdominal surgeries for a hiatal hernia that was complicated by prolonged hospitalization and prolonged ventilator dependent respiratory failure requiring a tracheostomy tube insertion, pvd-lower legs discolored/edematous, diverticular disease, chronic iron deficiency anemia, vertigo at times, Last Myocardial Infarction Date:: History of Any Multi-Drug Resistant Organisms: MRSA Date of last positivie culture/infection: 02/01/15 MDRO Source:: Abdomen Past Surgical History: Bowel Resection, Heart Catheterization With Stent, Hernia Repair Additional Past Surgical History / Comment(s): Colonoscopies, heart stents x 4, bowel resection with colostomy and colostomy reversal (removed a foot of pts colon)-2003, hernia repair with skin grafts and 2 fistula repairs (hospitalized for 1 year @[facility])-2010 MRSA 2015 in wounds. Past Anesthesia/Blood Transfusion Reactions: No Reported Reaction Additional Past Anesthesia/Blood Transfusion Reaction / Comment(s): Pt has received blood in past without reaction-2010 Date of Last Stent Placement:: 03/28/2015 Past Psychological History: Depression Smoking Status: Current some day smoker Past Alcohol Use History: None Reported Past Drug Use History: None Reported - Past Family History Mother Family Medical History: Osteoarthritis (OA), Pneumonia Additional Family Medical History / Comment(s): osteoporosis. arthroscopy surgery for knee Father Family Medical History: Liver Disease, Renal Disease Additional Family Medical History / Comment(s): triple heart bypass. liver transplant. aortic aneursym General Exam Limitations: no limitations General appearance: alert, in no apparent distress Head exam: Present: atraumatic, normocephalic, normal inspection Eye exam: Present: normal appearance, PERRL, EOMI. Absent: scleral icterus, conjunctival injection, periorbital swelling ENT exam: Present: normal exam, mucous membranes moist Neck exam: Present: normal inspection. Absent: tenderness, meningismus, lymphadenopathy Respiratory exam: Present: normal lung sounds bilaterally, rales, other (tachypnia). Absent: respiratory distress, wheezes, rhonchi, stridor Cardiovascular Exam: Present: tachycardia, irregular rhythm, normal heart sounds. Absent: systolic murmur, diastolic murmur, rubs, gallop, clicks GI/Abdominal exam: Present: soft, normal bowel sounds. Absent: distended, tenderness, guarding, rebound, rigid Extremities exam: Present: full ROM, normal capillary refill, pedal edema. Absent: tenderness, joint swelling, calf tenderness Back exam: Present: normal inspection Neurological exam: Present: alert, oriented X3, CN II-XII intact Psychiatric exam: Present: normal affect, normal mood Skin exam: Present: warm, dry, intact, normal color. Absent: rash Course Vital Signs 1105/13/19 05/13/19 18:17 19:21 19:28 Temperature 97.7 F Pulse Rate 116 H 95 97 Respiratory 28 H 18 18 Rate Blood Pressure 109/64 O2 Sat by Pulse 93 L Oximetry 05/13/19 05/13/19 19:56 21:29 Temperature 98.0 F Pulse Rate 106 H 105 H Respiratory 24 18 Rate Blood Pressure 104/66 109/74 O2 Sat by Pulse 97 100 Oximetry Chest Pain MDM - MDM Upon arrival the patient is placed into room 11. A thorough history and physical exam was performed. I did recommend laboratory studies and a chest x- ray. CBC is unremarkable. CMP shows a sodium of 134, chloride 93, carbon accept 31, creatinine 1.5. Patient's normal is anywhere from 1.5-2. Glucose 224. Total bilirubin 1.7. BNP is 6910. Troponin is negative. He did complete a 12-lead EKG. Chest x-ray demonstrates interstitial edema with small pleural effusions. I discussed results with the patient. His heart rate has improved. I did give him 4 mg of morphine for lower extremity pain due to neuropathy. I also provided him with 80 mg of Lasix. I recommended hospital admission for which the patient did agree. Discussed case with Geetha who accepted admission for the patient. Bridging orders were placed and the patient is awaiting on the floor Disposition Clinical Impression: Atrial fibrillation, Acute pulmonary edema, Congestive heart failure Disposition: ADMITTED IP TO THIS HOSP Condition: Serious Is patient prescribed a controlled substance at d/c from ED?: No Decision to Admit Reason: Admit from EC Decision Date: 05/13/19 Decision Time: 20:45
[2019-05-13] MEDS ORDERED: NALOXONE 0.4 MG/ML 1 ML VIAL IV PRN (20:45)
[2019-05-13] MEDS ORDERED: MORPHINE SULFATE 4 MG/ML SYRINGE IVP STA (20:55)
[2019-05-13] MEDS: METOPROLOL TARTRATE 50 MG TAB PO SCH (21:54)
[2019-05-13] MEDS: FOLIC ACID 1 MG TAB PO SCH (21:55)
[2019-05-13] MEDS: APIXABAN 5 MG TAB PO SCH (21:55)
[2019-05-13] MEDS: POTASSIUM CHLORIDE ER 20 MEQ TAB.ER PO SCH (21:55)
[2019-05-13] MEDS: SERTRALINE 100 MG TAB PO SCH (21:55)
[2019-05-13] MEDS: ATORVASTATIN 80 MG TAB PO SCH (21:55)
[2019-05-13] MEDS: FUROSEMIDE 10 MG/ML 10 ML VIAL IV SCH (21:55)
[2019-05-13 21:58] LABS: Glucose,Whole Blood 137 mg/dL (75-99)
[2019-05-14] MEDS: LEVOTHYROXINE 137 MCG TAB PO SCH (06:13)
[2019-05-14 06:21] LABS: Glucose,Whole Blood 148 mg/dL (75-99)
[2019-05-14 07:31] LABS: Anisocytosis Slight; Basophils % (A) 1 %; Eosinophils # (A) 0.3 k/uL (0-0.7); Eosinophils % (A) 5 %; HCT 35.2 % (39.0-53.0); HGB 11.4 gm/dL (13.0-17.5); Hypochromasia Slight; Lymphocytes # (A) 1.4 k/uL (1.0-4.8); Lymphocytes % (A) 20 %; MCH 27.9 pg (25.0-35.0); MCHC 32.4 g/dL (31.0-37.0); MCV 86.3 fL (80.0-100.0); Mean Platelet Volume 8.1; Monocytes # (A) 0.4 k/uL (0-1.0); Monocytes % (A) 6 %; Neutrophils # (A) 4.8 k/uL (1.3-7.7); Neutrophils % (A) 68 %; Platelet Count 144 k/uL (150-450); Poikilocytosis Slight; RBC 4.08 m/uL (4.30-5.90); RDW 17.6 % (11.5-15.5)
[2019-05-14 08:06] LABS: Calcium 9.1 mg/dL (8.4-10.2); Potassium 3.3 mmol/L (3.5-5.1)
[2019-05-14] MEDS: POTASSIUM CHLORIDE ER 20 MEQ TAB.ER PO SCH ×2 (08:16→20:53)
[2019-05-14] MEDS: FUROSEMIDE 10 MG/ML 10 ML VIAL IV SCH ×2 (08:17→20:55)
[2019-05-14] MEDS: ALLOPURINOL 100 MG TAB PO SCH (08:17)
[2019-05-14] MEDS: METOPROLOL TARTRATE 50 MG TAB PO SCH ×2 (08:17→20:53)
[2019-05-14] MEDS: APIXABAN 5 MG TAB PO SCH ×2 (08:17→20:53)
[2019-05-14] MEDS: FOLIC ACID 1 MG TAB PO SCH ×2 (08:17→20:53)
[2019-05-14] MEDS: SYMBICORT 160-4.5 MCG INHALER INHALATION SCH ×2 (08:32→21:20)
[2019-05-14] MEDS: ALBUTEROL NEBULIZED 2.5 MG/3 ML INHALATION PRN ×2 (08:32→21:20)
--- NOTE | 2019-05-14 10:20 | CONS ---
CONSULTATION CHIEF COMPLAINT: Shortness of breath Mr. Cerna is a 48-year-old gentleman with history of atrial fibrillation, coronary artery disease, status post prior angioplasty, obesity, COPD, and chronic renal insufficiency, who presented to hospital complaining of shortness of breath. He states that he has been getting progressively short of breath over the last several weeks and also has had leg edema. At the time of my evaluation, he appears comfortable at rest and is not in any respiratory distress. The patient is on home O2 and takes 2 L of nasal O2. He is on Lasix 60 mg b.i.d. and 20 mg in the afternoon. The patient also has cough with productive sputum on this admission. BNP is elevated at 6910. Troponin is negative. Chest x-ray showed evidence of bilateral pleural effusion and interstitial edema. An EKG reveals atrial fibrillation with nonspecific ST-T wave changes and poorly controlled ventricular rate. The patient had a cardiac catheterization in 2014 that revealed a chronically occluded right coronary artery, high-grade stenosis involving LAD for which he underwent angioplasty and he also had a lesion within the circumflex coronary artery. He has had 3 sets of tropes that were all negative. The patient's clinical presentation is consistent with acute exacerbation of chronic systolic heart failure. He had an ejection fraction of 45% in November of this year. The patient is being treated with intravenous diuretics with improvement in his symptoms. He is also on beta blockers, Eliquis, and Lipitor. I will add an JESSENIA inhibitor if the renal functions remain stable. PAST MEDICAL HISTORY: Significant for coronary artery disease status post angioplasty, COPD, renal insufficiency, hypothyroidism, and COPD. MEDICATIONS: Medications at home include Zoloft, K-Dur 20 daily, Lopressor 100 b.i.d., Zaroxolyn 2.5 3 times a day, Synthroid, Lasix, folic acid, Drisdol, Symbicort, Lipitor, Zyloprim, Eliquis, Ventolin. ALLERGIES: THE PATIENT IS ALLERGIC TO PENICILLIN AND CEPHALOSPORINS. FAMILY HISTORY: Negative for premature coronary artery disease. SOCIAL HISTORY: Negative for current smoking, ETOH abuse or drug abuse. REVIEW OF SYSTEMS: HEENT is unremarkable. Cardiac as described above. Respiratory as described above. GI negative. GENITOURINARY: Negative. ALLERGY/IMMUNOLOGY: None. Skin negative. Musculoskeletal significant for chronic muscle aches. [employer] negative. Psychosocial negative. Rest of the system review is not relevant. EXAM: Heart rate is 90 beats per minute. Blood pressure is 100/50. Respirations 18. Chest exam reveals diminished air entry at the bases with occasional crackles. Heart exam reveals first and second heart sounds and a systolic murmur at the apex. Abdomen is soft. Exam of extremities reveals bilateral 2+ pitting edema. Peripheral pulses are palpable. LAB: Show a hemoglobin of 11.4, platelet count is 144. Potassium is low at 3.3, BUN is 30, creatinine is 1.7. Tropes are negative. BNP is elevated. ASSESSMENT: 1. Acute exacerbation of chronic systolic heart failure. 2. Permanent atrial fibrillation. 3. Coronary artery disease, status post angioplasty. 4. Chronic obstructive pulmonary disease on home O2. PLAN: I will continue with the IV diuretics. Please supplement potassium per protocol. I will obtain a 2D echo to document his LV function. I will continue the beta blockers for rate control. Continue the Eliquis for anticoagulant. MMODL / IJN: [id number] /
[2019-05-14] MEDS: HYDROcodone/APAP 7.5-325MG 1 EACH TAB PO PRN ×2 (11:08→17:15)
[2019-05-14 12:18] LABS: Glucose,Whole Blood 149 mg/dL (75-99)
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
[2019-05-14] MEDS ORDERED: Potassium Replacement Protocol 1 EACH MISC MISCELLANE PRN (14:36)
[2019-05-14 16:39] LABS: Glucose,Whole Blood 194 mg/dL (75-99)
[2019-05-14 19:18] VITALS: RESP 18
[2019-05-14 20:37] LABS: Glucose,Whole Blood 172 mg/dL (75-99)
[2019-05-14] MEDS: SERTRALINE 100 MG TAB PO SCH (20:53)
[2019-05-14] MEDS: ATORVASTATIN 80 MG TAB PO SCH (20:53)
[2019-05-14] MEDS ORDERED: HYDROcodone/APAP 7.5-325MG 1 EACH TAB PO ONE (21:50)
[2019-05-15] MEDS: HYDROcodone/APAP 7.5-325MG 1 EACH TAB PO PRN (05:40)
[2019-05-15] MEDS: LEVOTHYROXINE 137 MCG TAB PO SCH (06:04)
[2019-05-15 07:42] LABS: Potassium 3.3 mmol/L (3.5-5.1)
--- NOTE | 2019-05-15 07:54 | ECHOF ---
Referral Reason:chf MEASUREMENTS -------- HEIGHT: 177.8 cm WEIGHT: 143.8 kg BP: 100/58 RVIDd: 4.7 cm (< 3.3) IVSd: 1.6 cm (0.6 - 1.1) LVIDd: 3.6 cm (3.9 - 5.3) LVPWd: 1.8 cm (0.6 - 1.1) IVSs: 1.6 cm LVIDs: 3.1 cm LVPWs: 2.0 cm Ao Diam: 3.6 cm (2.0 - 3.7) AV Cusp: 2.1 cm (1.5 - 2.6) LA Diam: 5.4 cm (2.7 - 3.8) RAP: 5.00 mmHg RVSP: 26.52 mmHg FINDINGS -------- Atrial fibrillation. This was a technically difficult study with suboptimal views. Morbid Obesity The left ventricular size is normal. There is mild concentric left ventricular hypertrophy. Overa ll left ventricular systolic function is moderate-severely impaired with, an EF between 30 - 35 %. There is paradoxical/dysynergic septal motion consistent with right ventricular volume overload and/o r elevated right ventricular end-diastolic pressure. The right ventricle is severely enlarged. The left atrium is markedly dilated. The right atrium was not well visualized. 5.0mg of Lumason was utilized for enhancement of images Interatrial and interventricular septum intact. The aortic valve was not well visualized. There is no evidence of aortic regurgitation. There is no evidence of aortic stenosis. The mitral valve was not well visualized. Mild mitral regurgitation is present. The tricuspid valve was not well visualized. Mild tricuspid regurgitation present. There is no ev idence of pulmonary hypertension. The right ventricular systolic pressure, as measured by Doppler, is 26.52mmHg. The pulmonic valve was not well visualized. The aortic root size is normal. IVC Not well visulized. There is no pericardial effusion. CONCLUSIONS -------- 1. Atrial fibrillation. 2. This was a technically difficult study with suboptimal views. 3. Morbid Obesity 4. The left ventricular size is normal. 5. There is mild concentric left ventricular hypertrophy. 6. Overall left ventricular systolic function is moderate-severely impaired with, an EF between 30 - 35 %. 7. There is paradoxical/dysynergic septal motion consistent with right ventricular volume overload an d/or elevated right ventricular end-diastolic pressure. 8. The right ventricle is severely enlarged. 9. The left atrium is markedly dilated. 10. The right atrium was not well visualized. 11. 5.0mg of Lumason was utilized for enhancement of images 12. Interatrial and interventricular septum intact. 13. The aortic valve was not well visualized. 14. There is no evidence of aortic regurgitation. 15. There is no evidence of aortic stenosis. 16. The mitral valve was not well visualized. 17. Mild mitral regurgitation is present. 18. The tricuspid valve was not well visualized. 19. Mild tricuspid regurgitation present. 20. There is no evidence of pulmonary hypertension. 21. The right ventricular systolic pressure, as measured by Doppler, is 26.52mmHg. 22. The pulmonic valve was not well visualized. 23. The aortic root size is normal. 24. IVC Not well visulized. 25. There is no pericardial effusion. BROADCAST SUPERVISOR: Marya Ochoa RDCS
[2019-05-15 07:59] LABS: Glucose,Whole Blood 165 mg/dL (75-99)
[2019-05-15] MEDS: SYMBICORT 160-4.5 MCG INHALER INHALATION SCH (08:13)
[2019-05-15 08:17] VITALS: BP 103/70; PULSE 103; TEMP 98.9
[2019-05-15] MEDS: FUROSEMIDE 10 MG/ML 10 ML VIAL IV SCH (08:43)
[2019-05-15] MEDS: FOLIC ACID 1 MG TAB PO SCH (08:45)
[2019-05-15] MEDS: APIXABAN 5 MG TAB PO SCH (08:45)
[2019-05-15] MEDS: POTASSIUM CHLORIDE ER 20 MEQ TAB.ER PO SCH (08:45)
[2019-05-15] MEDS: ALLOPURINOL 100 MG TAB PO SCH (08:45)
[2019-05-15] MEDS: METOPROLOL TARTRATE 50 MG TAB PO SCH (08:45)
[2019-05-15] MEDS ORDERED: POTASSIUM CHLORIDE ER 20 MEQ TAB.ER PO STA (10:45)
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
--- NOTE | 2019-05-15 13:10 | P.PN ---
Subjective Progress Note Date: 05/15/19 Principal diagnosis: Congestive heart failure secondary to systolic dysfunction This is a pleasant 48-year-old gentleman with a past medical history significant for long-standing persistent atrial fibrillation as well as history of cardiomyopathy was EF around 35% was admitted to the hospital again with heart failure related to systolic dysfunction. He was seen this morning. He is feeling better internal shortness of breath. No chest pain or chest discomfort. The plan is for the patient to be discharged home later on today. Objective - Vital Signs Vital signs: Vital Signs Temp 98.9 F 05/15/19 07:15 Pulse 103 H 05/15/19 08:50 Resp 18 05/15/19 08:50 BP 103/70 05/15/19 07:15 Pulse Ox 96 05/15/19 07:15 Intake & Output 05/14/19 05/15/19 05/15/19 18:59 06:59 18:59 Intake Total 720 Output Total 800 1650 Balance -80 -1650 Weight 155.6 kg Intake: Oral 720 Output: Urine 800 1650 Other: Voiding Method Urinal Urinal - Constitutional General appearance: Present: no acute distress - Respiratory Respiratory: bilateral: diminished - Cardiovascular Heart sounds: normal: S1, S2 - Labs CBC & Chem 7: 05/14/19 06:39 05/15/19 07:11 Labs: Abnormal Lab Results - Last 24 Hours (Table) 05/14/19 05/14/19 05/15/19 Range/Units 16:38 20:36 07:11 Potassium 3.3 L (3.5-5.1) mmol/L Chloride 95 L (98-107) mmol/L Carbon Dioxide 35 H (22-30) mmol/L BUN 32 H (9-20) mg/dL Creatinine 1.78 H (0.66-1.25) mg/dL Glucose 119 H (74-99) mg/dL POC Glucose (mg/dL) 194 H 172 H (75-99) mg/dL 05/15/19 Range/Units 07:56 Potassium (3.5-5.1) mmol/L Chloride (98-107) mmol/L Carbon Dioxide (22-30) mmol/L BUN (9-20) mg/dL Creatinine (0.66-1.25) mg/dL Glucose (74-99) mg/dL POC Glucose (mg/dL) 165 H (75-99) mg/dL Assessment and Plan Assessment: Assessment #1 coronary artery disease #2 congestive heart failure exacerbation secondary to systolic dysfunction #3 cardiomyopathy #4 long-standing persistent atrial fibrillation #5 morbid obesity #6 multiple comorbid conditions Plan #1 DC Lasix IV and start the patient on Lasix by mouth #2 the patient is going to be discharged home
[2019-05-15 14:30] VITALS: BMI 49.2
[2019-05-18] MEDS ORDERED: ERGOCALCIFEROL 50,000 UNIT CAP PO SCH (09:00)
== END 2019-05-15 14:23 | disposition home health service (06) ==
LOC: EC 18:13 → 3SCARD 20:45 → 4SSUR 05-14 14:54
PROVIDERS: ADMIT Hospitalist; ATTEND Hospitalist
DX: I50.23 Acute on chronic systolic (congestive) heart failure (principal); N18.3 Chronic kidney disease, stage 3 (moderate); N17.9 Acute kidney failure, unspecified; I48.21 Permanent atrial fibrillation; J44.9 Chronic obstructive pulmonary disease, unspecified; I25.119 Atherosclerotic heart disease of native coronary artery with unspecified angina pectoris; L98.499 Non-pressure chronic ulcer of skin of other sites with unspecified severity; G47.33 Obstructive sleep apnea (adult) (pediatric); E03.9 Hypothyroidism, unspecified; E78.5 Hyperlipidemia, unspecified; I13.0 Hypertensive heart and chronic kidney disease with heart failure and stage 1 through stage 4 chronic kidney disease, or unspecified chronic kidney disease; I49.3 Ventricular premature depolarization; I25.2 Old myocardial infarction; I73.9 Peripheral vascular disease, unspecified; D50.9 Iron deficiency anemia, unspecified; F32.9 Major depressive disorder, single episode, unspecified; F17.210 Nicotine dependence, cigarettes, uncomplicated; G62.9 Polyneuropathy, unspecified; I87.8 Other specified disorders of veins; L98.8 Other specified disorders of the skin and subcutaneous tissue; I42.9 Cardiomyopathy, unspecified; E66.01 Morbid (severe) obesity due to excess calories; Z68.42 Body mass index [BMI] 45.0-49.9, adult; Z86.718 Personal history of other venous thrombosis and embolism; Z88.1 Allergy status to other antibiotic agents; Z79.899 Other long term (current) drug therapy; Z95.5 Presence of coronary angioplasty implant and graft; Z79.890 Hormone replacement therapy; Z79.51 Long term (current) use of inhaled steroids; Z79.01 Long term (current) use of anticoagulants; Z91.048 Other nonmedicinal substance allergy status; Z88.0 Allergy status to penicillin; Z87.448 Personal history of other diseases of urinary system; Z99.89 Dependence on other enabling machines and devices; Z87.09 Personal history of other diseases of the respiratory system; Z87.442 Personal history of urinary calculi; Z87.19 Personal history of other diseases of the digestive system; Z90.49 Acquired absence of other specified parts of digestive tract; Z98.890 Other specified postprocedural states; Z86.14 Personal history of Methicillin resistant Staphylococcus aureus infection; Z99.81 Dependence on supplemental oxygen; Z82.61 Family history of arthritis; Z82.5 Family history of asthma and other chronic lower respiratory diseases; Z82.62 Family history of osteoporosis; Z83.79 Family history of other diseases of the digestive system; Z84.1 Family history of disorders of kidney and ureter; Z82.49 Family history of ischemic heart disease and other diseases of the circulatory system
CPT/HCPCS: 96376 ×2; 96375; 93005 ×2; 96374; 99285; 36415; 94640 ×4; 83880; 80053; 80048 ×2; 84484 ×2; 85025 ×2; 85610; 85730; 71046; G0378 ×4; C8929; J2270; J1940 ×3; Q9950; 93306

== ENCOUNTER 2019-09-22 02:41 | Emergency (ER) | payer MEDICARE, OTHER ==
[2019-09-22 02:53] VITALS: TEMP 97.9
--- NOTE | 2019-09-22 03:05 | ED ---
Chest Pain HPI - General Source: patient, EMS Mode of arrival: EMS Limitations: no limitations <John Lopez - Last Filed: 09/22/19 04:00> <Pop Malik - Last Filed: 09/22/19 06:36> - General Chief Complaint: Chest Pain Stated Complaint: chest pain Time Seen by Provider: 09/22/19 02:53 - History of Present Illness Initial Comments: Patient is a 49-year-old male with history of A. fib, COPD, heart failure and CKD presenting to the emergency department a chief complaint of chest pain and headache. Patient states chest pain started about 5 hours prior to arrival. States the pain is located mostly on the right lower side of the chest and is sharp in nature. States it is exacerbated with full inspiration. Denies any radiation of the pain. States he doesn't shortness of breath but is no worse than his baseline due to COPD. States he uses about 2-3 L of oxygen at home. Denies any diaphoretic episodes, lightheadedness, dizziness, nausea or vomiting. Denies any back pain or abdominal pain. 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 Does report bilateral lower extremity edema baseline. States he takes 60 mg of Lasix twice a day. States he takes a medication as directed. States he also has a headache that started earlier today. States this is like his typical headaches. Denies one-sided weakness or paresthesias. Denies any blurry vision or any other visual disturbances. Patient is a smoker currently. (John Lopez) - Related Data Home Medications Medication Instructions Recorded Confirmed Sertraline [Zoloft] 100 mg PO HS 10/19/13 05/13/19 Atorvastatin [Lipitor] 80 mg PO HS 03/25/15 05/13/19 Folic Acid 1 mg PO BID 03/25/15 05/13/19 Levothyroxine Sodium [Synthroid] 137 mcg PO QAM 03/25/15 05/13/19 Budesonide/Formoterol Fumarate 2 puff INHALATION RT-BID 08/01/16 05/13/19 [Symbicort 160-4.5 Mcg Inhaler] Allopurinol [Zyloprim] 100 mg PO DAILY 12/17/17 05/13/19 Ergocalciferol (Vitamin D2) 50,000 unit PO MO 05/05/18 05/13/19 [Drisdol] Albuterol Inhaler (Bulk) [Ventolin 1 - 2 puff INHALATION RT-QID PRN 09/17/18 05/13/19 Hfa Inhaler (Bulk)] Albuterol Nebulized [Ventolin 2.5 mg INHALATION RT-QID PRN 09/17/18 05/13/19 Nebulized] Metoprolol Tartrate [Lopressor] 100 mg PO BID 05/13/19 05/13/19 Previous Rx's Medication Instructions Recorded Nitroglycerin Sl Tabs [Nitrostat] 0.4 mg SUBLINGUAL Q5M PRN #30 tab 12/03/14 Apixaban [Eliquis] 5 mg PO BID tab 06/03/18 Metolazone [Zaroxolyn] 2.5 mg PO MOFR #0 10/28/18 Furosemide [Lasix] 80 mg PO BID #0 05/15/19 Potassium Chloride ER [K-Dur 20] 30 meq PO BID #0 05/15/19 Allergies Allergy/AdvReac Type Severity Reaction Status Date / Time adhesive Allergy "PLASTIC Verified 05/13/19 19:07 TAPE PEELS SKIN,PAPER TAPE IS OK" linezolid Allergy Unknown Verified 05/13/19 19:07 penicillin G Allergy Rash/Hives Verified 05/13/19 19:07 Cephalosporins AdvReac FEVER Verified 05/13/19 19:07 Review of Systems ROS Other: All systems not noted in ROS Statement are negative. <John Lopez - Last Filed: 09/22/19 04:00> ROS Other: All systems not noted in ROS Statement are negative. <Pop Malik - Last Filed: 09/22/19 06:36> ROS Statement: Those systems with pertinent positive or pertinent negative responses have been documented in the HPI. EKG Findings - EKG Comments: EKG Findings:: A. fib with occasional PVC. Prolonged QT. Ventricular rate 94, QRS 108, QTC 542. <John Lopez - Last Filed: 09/22/19 04:00> Past Medical History Past Medical History: Atrial Fibrillation, Asthma, Coronary Artery Disease (CAD), Chest Pain / Angina, Heart Failure, COPD, Deep Vein Thrombosis (DVT), Hyperlipidemia, Hypertension, Myocardial Infarction ([place]), Renal Disease, Sleep Apnea/CPAP/BIPAP, Thyroid Disorder, Vascular Disorder Additional Past Medical History / Comment(s): CHF, tracheobronchitis, CKD stage III, kidney stones, DVT L leg in 2004, KAMRYN without device use, colon abscess with bowel resection, multiple abdominal surgeries for a hiatal hernia that was complicated by prolonged hospitalization and prolonged ventilator dependent respiratory failure requiring a tracheostomy tube insertion, pvd-lower legs discolored/edematous, diverticular disease, chronic iron deficiency anemia, vertigo at times, Last Myocardial Infarction Date:: History of Any Multi-Drug Resistant Organisms: MRSA Date of last positivie culture/infection: 02/01/15 MDRO Source:: Abdomen Past Surgical History: Bowel Resection, Heart Catheterization With Stent, Hernia Repair Additional Past Surgical History / Comment(s): Colonoscopies, heart stents x 4, bowel resection with colostomy and colostomy reversal (removed a foot of pts colon)-2003, hernia repair with skin grafts and 2 fistula repairs (hospitalized for 1 year @[facility])-2010 MRSA 2014 in wounds. Past Anesthesia/Blood Transfusion Reactions: No Reported Reaction Additional Past Anesthesia/Blood Transfusion Reaction / Comment(s): Pt has received blood in past without reaction-2010 Date of Last Stent Placement:: 03/28/2015 Past Psychological History: Depression Smoking Status: Current every day smoker Past Alcohol Use History: None Reported Past Drug Use History: None Reported - Past Family History Mother Family Medical History: Osteoarthritis (OA), Pneumonia Additional Family Medical History / Comment(s): osteoporosis. arthroscopy surgery for knee Father Family Medical History: Liver Disease, Renal Disease Additional Family Medical History / Comment(s): triple heart bypass. liver transplant. aortic aneursym <John Lopez - Last Filed: 09/22/19 04:00> General Exam Limitations: no limitations General appearance: alert, in no apparent distress, obese Head exam: Present: atraumatic, normocephalic, normal inspection Eye exam: Present: normal appearance, PERRL, EOMI Pupils: Present: normal accommodation ENT exam: Present: normal exam, normal oropharynx, mucous membranes moist, TM's normal bilaterally, normal external ear exam Neck exam: Present: normal inspection, full ROM Respiratory exam: Present: normal lung sounds bilaterally. Absent: respiratory distress, wheezes, rales (No crackles), chest wall tenderness (Nonreproducible) Cardiovascular Exam: Present: regular rate, normal rhythm, normal heart sounds Extremities exam: Present: normal inspection, full ROM, pedal edema (+2 bilat eral pitting edema. Stasis dermatitis bilaterally.) Back exam: Present: normal inspection, full ROM Neurological exam: Present: alert, oriented X3 Psychiatric exam: Present: normal affect, normal mood Skin exam: Present: warm, dry, intact, normal color <John Lopez - Last Filed: 09/22/19 04:00> Course Vital Signs 09/22/19 09/22/19 02:51 02:54 Temperature 97.9 F Pulse Rate 73 Pulse Rate [ 82 Behavioral Health Director ] Respiratory 20 Rate Blood Pressure 110/62 O2 Sat by Pulse 100 Oximetry Chest Pain MDM - Differential Diagnosis ACS <John Lopez - Last Filed: 09/22/19 04:00> - MDM Patient is a 49-year-old male with history of A. fib, CMP, CRP, CKD presenting to the emergency department chief complaint of chest pain. Symptoms started about 5 hours prior to arrival. Atypical chest pain with atypical features. CBC shows mild thrombocytopenia. Initial Troponin negative. EKG shows A. fib with occasional PVC and prolonged QT. Magnesium, BNP and CMP still pending. At this time patient care will be transferred to . (John Lopez) Disposition Is patient prescribed a controlled substance at d/c from ED?: No Time of Disposition: 04:00 <John Lopez - Last Filed: 09/22/19 04:00> Is patient prescribed a controlled substance at d/c from ED?: No <Pop Malik - Last Filed: 09/22/19 06:36> Clinical Impression: Chest pain Disposition: HOME SELF-CARE Condition: Stable Instructions (If sedation given, give patient instructions): Chest Pain (ED) Referrals: Aguilar Bautista DO [Primary Care Provider] - 1-2 days
--- NOTE | 2019-09-22 03:14 | XR ---
EXAMINATION TYPE: XR chest 2V DATE OF EXAM: 09/22/2019 COMPARISON: 05/13/2019 HISTORY: Chest pain TECHNIQUE: 2 views FINDINGS: There is no heart failure nor confluent pneumonic infiltrate. Costophrenic angles are fairl y clear. There is very slight blunting left costophrenic angle unchanged. There are no hilar masses. Bony thorax is intact. IMPRESSION: Minimal pleural diaphragmatic scarring left lateral lung base. No heart failure.
[2019-09-22 03:19] LABS: Anisocytosis Slight; Basophils % (A) 1 %; Eosinophils # (A) 0.2 k/uL (0-0.7); Eosinophils % (A) 3 %; HCT 47.7 % (39.0-53.0); HGB 16.1 gm/dL (13.0-17.5); Lymphocytes # (A) 1.1 k/uL (1.0-4.8); Lymphocytes % (A) 13 %; MCH 27.2 pg (25.0-35.0); MCHC 33.8 g/dL (31.0-37.0); MCV 80.7 fL (80.0-100.0); Mean Platelet Volume 9.7; Monocytes # (A) 0.6 k/uL (0-1.0); Monocytes % (A) 7 %; Neutrophils # (A) 6.2 k/uL (1.3-7.7); Neutrophils % (A) 74 %; Platelet Count 139 k/uL (150-450); Poikilocytosis Slight; RBC 5.91 m/uL (4.30-5.90); RDW 17.5 % (11.5-15.5); WBC 8.4 k/uL (3.8-10.6)
[2019-09-22 03:29] LABS: Albumin 4.1 g/dL (3.5-5.0); Calcium 9.2 mg/dL (8.4-10.2); Total Bilirubin 1.6 mg/dL (0.2-1.3); Total Protein 8.1 g/dL (6.3-8.2)
[2019-09-22 03:36] LABS: INR 1.1 (<1.2); Prothrombin Time 11.1 sec (9.0-12.0)
[2019-09-22 04:14] LABS: Potassium 2.7 mmol/L (3.5-5.1)
[2019-09-22] MEDS ORDERED: METOCLOPRAMIDE 5 MG/ML 2 ML VIAL IVP STA (04:44)
[2019-09-22] MEDS ORDERED: KETOROLAC 30 MG/ML 1 ML VIAL IVP STA (04:44)
[2019-09-22] MEDS ORDERED: MORPHINE SULFATE 4 MG/ML SYRINGE IV STA (04:44)
[2019-09-22 06:59] VITALS: BP 88/61; PULSE 80; RESP 18
== END 2019-09-22 07:11 | disposition home or self-care (01) ==
LOC: EC 02:41
DX: R07.89 Other chest pain (principal); I48.91 Unspecified atrial fibrillation; D69.6 Thrombocytopenia, unspecified; I25.119 Atherosclerotic heart disease of native coronary artery with unspecified angina pectoris; J44.9 Chronic obstructive pulmonary disease, unspecified; E78.5 Hyperlipidemia, unspecified; G47.30 Sleep apnea, unspecified; I25.2 Old myocardial infarction; I13.0 Hypertensive heart and chronic kidney disease with heart failure and stage 1 through stage 4 chronic kidney disease, or unspecified chronic kidney disease; I50.9 Heart failure, unspecified; N18.3 Chronic kidney disease, stage 3 (moderate); E07.9 Disorder of thyroid, unspecified; F32.9 Major depressive disorder, single episode, unspecified; F17.200 Nicotine dependence, unspecified, uncomplicated; Z79.890 Hormone replacement therapy; Z79.51 Long term (current) use of inhaled steroids; Z79.899 Other long term (current) drug therapy; Z91.048 Other nonmedicinal substance allergy status; Z88.8 Allergy status to other drugs, medicaments and biological substances; Z88.0 Allergy status to penicillin; Z88.1 Allergy status to other antibiotic agents; Z95.5 Presence of coronary angioplasty implant and graft
CPT/HCPCS: 36415; 93005; 83880; 80053; 83735; 84484; 85025; 85610; 85730; 71046; 99285; 96374; 96375 ×2; J2270; J2765; J1885

== ENCOUNTER 2019-11-05 18:10 | Inpatient (IN) | payer MEDICARE, OTHER ==
[2019-11-05] MEDS ORDERED: ALBUTEROL NEBULIZED 2.5 MG/3 ML INHALATION STA (18:46)
[2019-11-05] MEDS ORDERED: IPRATROPIUM 0.5 MG/2.5 ML NEBU INHALATION STA (18:46)
--- NOTE | 2019-11-05 18:49 | ED ---
General Adult HPI - General Chief complaint: Shortness of Breath Stated complaint: sob.chest pain,visiting rn sent in Time Seen by Provider: 11/05/19 18:10 Source: patient, RN notes reviewed, old records reviewed Mode of arrival: ambulatory Limitations: no limitations - History of Present Illness Initial comments: This a 49-year-old male who presents emergency Department complaining shortness breath 4 days. Patient states he has a history of COPD heart attacks with 4 stent placements diabetes high blood pressure and pedal edema. Patient states he stopped taking his meds over the last 4 days but he didn't feel good. Patient denies any fever or cough. Patient states he does have some right-sided chest pain as well. Patient denies any palpitations. Patient denies abdominal pain patient denies any nausea vomiting. Patient states though he stopped his Lasix he hasn't noticed much increased swelling in his legs - Related Data Home Medications Medication Instructions Recorded Confirmed Sertraline [Zoloft] 100 mg PO HS 10/19/13 05/13/19 Atorvastatin [Lipitor] 80 mg PO HS 03/25/15 05/13/19 Folic Acid 1 mg PO BID 03/25/15 05/13/19 Levothyroxine Sodium [Synthroid] 137 mcg PO QAM 03/25/15 05/13/19 Budesonide/Formoterol Fumarate 2 puff INHALATION RT-BID 08/01/16 05/13/19 [Symbicort 160-4.5 Mcg Inhaler] Allopurinol [Zyloprim] 100 mg PO DAILY 12/17/17 05/13/19 Ergocalciferol (Vitamin D2) 50,000 unit PO MO 05/05/18 05/13/19 [Drisdol] Albuterol Inhaler (Mhu) [Ventolin 1 - 2 puff INHALATION RT-QID PRN 09/17/18 05/13/19 Hfa Inhaler (Mhu)] Albuterol Nebulized [Ventolin 2.5 mg INHALATION RT-QID PRN 09/17/18 05/13/19 Nebulized] Metoprolol Tartrate [Lopressor] 100 mg PO BID 05/13/19 05/13/19 Previous Rx's Medication Instructions Recorded Nitroglycerin Sl Tabs [Nitrostat] 0.4 mg SUBLINGUAL Q5M PRN #30 tab 12/03/14 Apixaban [Eliquis] 5 mg PO BID tab 06/03/18 Metolazone [Zaroxolyn] 2.5 mg PO MOFR #0 10/28/18 Furosemide [Lasix] 80 mg PO BID #0 05/15/19 Potassium Chloride ER [K-Dur 20] 30 meq PO BID #0 05/15/19 Allergies Allergy/AdvReac Type Severity Reaction Status Date / Time adhesive Allergy "PLASTIC Verified 11/05/19 18:17 TAPE PEELS SKIN,PAPER TAPE IS OK" linezolid Allergy Unknown Verified 11/05/19 18:17 penicillin G Allergy Rash/Hives Verified 11/05/19 18:17 Cephalosporins AdvReac FEVER Verified 11/05/19 18:17 Review of Systems ROS Statement: Those systems with pertinent positive or pertinent negative responses have been documented in the HPI. ROS Other: All systems not noted in ROS Statement are negative. Past Medical History Past Medical History: Atrial Fibrillation, Asthma, Coronary Artery Disease (CAD), Chest Pain / Angina, Heart Failure, COPD, Deep Vein Thrombosis (DVT), Hyperlipidemia, Hypertension, Myocardial Infarction ([place]), Renal Disease, Sleep Apnea/CPAP/BIPAP, Thyroid Disorder, Vascular Disorder Additional Past Medical History / Comment(s): CHF, tracheobronchitis, CKD stage III, kidney stones, DVT L leg in 2004, KAMRYN without device use, colon abscess with bowel resection, multiple abdominal surgeries for a hiatal hernia that was complicated by prolonged hospitalization and prolonged ventilator dependent respiratory failure requiring a tracheostomy tube insertion, pvd-lower legs discolored/edematous, diverticular disease, chronic iron deficiency anemia, vertigo at times, Last Myocardial Infarction Date:: History of Any Multi-Drug Resistant Organisms: MRSA Date of last positivie culture/infection: 02/01/15 MDRO Source:: Abdomen Past Surgical History: Bowel Resection, Heart Catheterization With Stent, Hernia Repair Additional Past Surgical History / Comment(s): Colonoscopies, heart stents x 4, bowel resection with colostomy and colostomy reversal (removed a foot of pts colon)-2003, hernia repair with skin grafts and 2 fistula repairs (hospitalized for 1 year @[facility])-2010 MRSA 2015 in wounds. Past Anesthesia/Blood Transfusion Reactions: No Reported Reaction Additional Past Anesthesia/Blood Transfusion Reaction / Comment(s): Pt has received blood in past without reaction-2010 Date of Last Stent Placement:: 03/28/2015 Past Psychological History: Depression Smoking Status: Current every day smoker Past Alcohol Use History: None Reported Past Drug Use History: None Reported - Past Family History Mother Family Medical History: Osteoarthritis (OA), Pneumonia Additional Family Medical History / Comment(s): osteoporosis. arthroscopy surgery for knee Father Family Medical History: Liver Disease, Renal Disease Additional Family Medical History / Comment(s): triple heart bypass. liver transplant. aortic aneursym General Exam - General Exam Comments Initial Comments: GENERAL: Patient is well-developed and well-nourished. Patient is nontoxic and well- hydrated and is in mild distress. ENT: Neck is soft and supple. No significant lymphadenopathy is noted. Oropharynx is clear. Moist mucous membranes. Neck has full range of motion without eliciting any pain. EYES: The sclera were anicteric and conjunctiva were pink and moist. Extraocular movements were intact and pupils were equal round and reactive to light. Eyelids were unremarkable. PULMONARY: Slight expiratory wheezing CARDIOVASCULAR: There is a regular rate and rhythm without any murmurs gallops or rubs. ABDOMEN: Soft and nontender with normal bowel sounds. SKIN: Skin is clear with no lesions or rashes and otherwise unremarkable. NEUROLOGIC: Patient is alert and oriented x3. Cranial nerves II through XII are grossly intact. Motor and sensory are also intact. Normal speech, volume and content. Symmetrical smile. MUSCULOSKELETAL: Normal extremities with adequate strength and full range of motion. Chronic cellulitis bilaterally 1+ edema LYMPHATICS: No significant lymphadenopathy is noted PSYCHIATRIC: Normal psychiatric evaluation. Limitations: no limitations Course Vital Signs 11/05/19 11/05/19 11/05/19 18:12 19:17 19:32 Temperature 98.7 F Pulse Rate 98 98 101 H Respiratory 24 Rate Blood Pressure 114/78 O2 Sat by Pulse 97 Oximetry 11/05/19 20:17 Temperature Pulse Rate 100 Respiratory 18 Rate Blood Pressure 108/79 O2 Sat by Pulse 98 Oximetry Medical Decision Making - Medical Decision Making EKG shows atrial fibrillation at a rate of 100 bpm QRS is 98 QT interval 410 QTC is 528. Chest x-ray shows acute pulmonary edema. I started the patient Lasix continued Lasix on the floor. I spoke with Dr. Barrera agreed to admit the patient admitted the patient wrote admitting orders I consulted cardiology. - Lab Data Result diagrams: 11/05/19 19:06 11/05/19 19:06 Lab Results 11/05/19 11/05/19 11/05/19 Range/Units 19:06 19:06 19:06 WBC 11.1 H (3.8-10.6) k/uL RBC 4.75 (4.30-5.90) m/uL Hgb 13.3 (13.0-17.5) gm/dL Hct 39.3 (39.0-53.0) % MCV 82.7 (80.0-100.0) fL MCH 28.0 (25.0-35.0) pg MCHC 33.8 (31.0-37.0) g/dL RDW 17.7 H (11.5-15.5) % Plt Count 214 (150-450) k/uL Neutrophils % 73 % Lymphocytes % 13 % Monocytes % 6 % Eosinophils % 5 % Basophils % 1 % Neutrophils # 8.1 H (1.3-7.7) k/uL Lymphocytes # 1.5 (1.0-4.8) k/uL Monocytes # 0.7 (0-1.0) k/uL Eosinophils # 0.5 (0-0.7) k/uL Basophils # 0.1 (0-0.2) k/uL Poikilocytosis Slight Anisocytosis Slight PT 11.5 (9.0-12.0) sec INR 1.1 (<1.2) APTT 39.6 H (22.0-30.0) sec Sodium 129 L (137-145) mmol/L Potassium 2.7 L* (3.5-5.1) mmol/L Chloride 80 L (98-107) mmol/L Carbon Dioxide 36 H (22-30) mmol/L Anion Gap 13 mmol/L BUN 59 H (9-20) mg/dL Creatinine 1.66 H (0.66-1.25) mg/dL Est GFR (CKD-EPI)AfAm 56 (>60 ml/min/1.73 sqM) Est GFR (CKD-EPI)NonAf 48 (>60 ml/min/1.73 sqM) Glucose 146 H (74-99) mg/dL Plasma Lactic Acid Isael (0.7-2.0) mmol/L Calcium 9.0 (8.4-10.2) mg/dL Magnesium 2.1 (1.6-2.3) mg/dL Total Bilirubin 1.3 (0.2-1.3) mg/dL AST 34 (17-59) U/L ALT 18 (4-49) U/L Alkaline Phosphatase 127 H (38-126) U/L Troponin I (0.000-0.034) ng/mL NT-Pro-B Natriuret Pep pg/mL Total Protein 7.1 (6.3-8.2) g/dL Albumin 3.4 L (3.5-5.0) g/dL 11/05/19 11/05/19 11/05/19 Range/Units 19:06 19:06 19:06 WBC (3.8-10.6) k/uL RBC (4.30-5.90) m/uL Hgb (13.0-17.5) gm/dL Hct (39.0-53.0) % MCV (80.0-100.0) fL MCH (25.0-35.0) pg MCHC (31.0-37.0) g/dL RDW (11.5-15.5) % Plt Count (150-450) k/uL Neutrophils % % Lymphocytes % % Monocytes % % Eosinophils % % Basophils % % Neutrophils # (1.3-7.7) k/uL Lymphocytes # (1.0-4.8) k/uL Monocytes # (0-1.0) k/uL Eosinophils # (0-0.7) k/uL Basophils # (0-0.2) k/uL Poikilocytosis Anisocytosis PT (9.0-12.0) sec INR (<1.2) APTT (22.0-30.0) sec Sodium (137-145) mmol/L Potassium (3.5-5.1) mmol/L Chloride (98-107) mmol/L Carbon Dioxide (22-30) mmol/L Anion Gap mmol/L BUN (9-20) mg/dL Creatinine (0.66-1.25) mg/dL Est GFR (CKD-EPI)AfAm (>60 ml/min/1.73 sqM) Est GFR (CKD-EPI)NonAf (>60 ml/min/1.73 sqM) Glucose (74-99) mg/dL Plasma Lactic Acid Isael 1.8 (0.7-2.0) mmol/L Calcium (8.4-10.2) mg/dL Magnesium (1.6-2.3) mg/dL Total Bilirubin (0.2-1.3) mg/dL AST (17-59) U/L ALT (4-49) U/L Alkaline Phosphatase (38-126) U/L Troponin I <0.012 (0.000-0.034) ng/mL NT-Pro-B Natriuret Pep 8760 pg/mL Total Protein (6.3-8.2) g/dL Albumin (3.5-5.0) g/dL Disposition Clinical Impression: Noncompliance with medication regimen, Acute pulmonary edema Disposition: ADMITTED IP TO THIS HOSP Referrals: Eleazar Bhatt MD [Primary Care Provider] - 1-2 days Time of Disposition: 20:50
[2019-11-05 19:20] LABS: Anisocytosis Slight; Basophils # (A) 0.1 k/uL (0-0.2); Basophils % (A) 1 %; Eosinophils # (A) 0.5 k/uL (0-0.7); Eosinophils % (A) 5 %; HCT 39.3 % (39.0-53.0); HGB 13.3 gm/dL (13.0-17.5); Lymphocytes # (A) 1.5 k/uL (1.0-4.8); Lymphocytes % (A) 13 %; MCHC 33.8 g/dL (31.0-37.0); MCV 82.7 fL (80.0-100.0); Mean Platelet Volume 10.1; Monocytes # (A) 0.7 k/uL (0-1.0); Monocytes % (A) 6 %; Neutrophils # (A) 8.1 k/uL (1.3-7.7); Neutrophils % (A) 73 %; Platelet Count 214 k/uL (150-450); Poikilocytosis Slight; RBC 4.75 m/uL (4.30-5.90); RDW 17.7 % (11.5-15.5); WBC 11.1 k/uL (3.8-10.6)
[2019-11-05 19:34] LABS: Albumin 3.4 g/dL (3.5-5.0); Magnesium 2.1 mg/dL (1.6-2.3); Total Bilirubin 1.3 mg/dL (0.2-1.3); Total Protein 7.1 g/dL (6.3-8.2)
[2019-11-05 19:48] LABS: INR 1.1 (<1.2); Partial Thromboplastin Time 39.6 sec (22.0-30.0); Prothrombin Time 11.5 sec (9.0-12.0)
[2019-11-05 20:01] LABS: Potassium 2.7 mmol/L (3.5-5.1)
[2019-11-05] MEDS ORDERED: POTASSIUM CHLORIDE ER 20 MEQ TAB.ER PO STA (20:06)
[2019-11-05] MEDS ORDERED: POTASSIUM CHLORIDE 20 MEQ in WATER FOR INJECTION 1 100ML.BAG IVPB STA (20:07)
--- NOTE | 2019-11-05 20:14 | XR ---
EXAMINATION: XR chest 2V DATE AND TIME: 11/05/2019 7:57 PM CLINICAL INDICATION: PHH; difficulty breathing TECHNIQUE: AP and lateral COMPARISON: 09/22/2019 FINDINGS: The lungs demonstrate silhouetting of the pulmonary vasculature bilaterally by a fine reticular patte rn with increased density, consistent with a clinical diagnosis of mild interstitial phase pulmonary edema. In addition, there is partial consolidative opacity in the right lower lung zone. The pleural spaces are negative. The cardiac silhouette is moderately enlarged. The skeletal structures and soft tissues are negative for acute findings. IMPRESSION: Radiographic findings suggest mild cardiogenic pulmonary edema.
[2019-11-05] MEDS: POTASSIUM CHLORIDE 10 MEQ in WATER FOR INJECTION 1 100ML.BAG IVPB SCH ×2 (20:48→20:57)
[2019-11-05] MEDS ORDERED: FUROSEMIDE 10 MG/ML 4 ML VIAL IV SCH (21:00)
[2019-11-05] MEDS ORDERED: Potassium Replacement Protocol 1 EACH MISC MISCELLANE PRN (21:01)
[2019-11-05] MEDS ORDERED: POTASSIUM CHLORIDE ER 20 MEQ TAB.ER PO SCH (22:00)
[2019-11-05] MEDS ORDERED: METOPROLOL TARTRATE 50 MG TAB PO SCH (22:30)
[2019-11-05] MEDS ORDERED: NA PHOS,M-B/NA PHOS,DI-BA 133 ML ENEMA RECTAL PRN (22:31)
[2019-11-05] MEDS ORDERED: ONDANSETRON 4 MG/2 ML VIAL IVP PRN (22:31)
[2019-11-05] MEDS ORDERED: MAG HYDROX/AL HYDROX/SIMETH 30 ML CUP PO PRN (22:31)
[2019-11-05] MEDS ORDERED: CALCIUM CARBONATE 500 MG CHEWABLE PO PRN (22:31)
[2019-11-05] MEDS ORDERED: MELATONIN 3 MG TABLET PO PRN (22:31)
[2019-11-05] MEDS ORDERED: NALOXONE 0.4 MG/ML 1 ML VIAL IV PRN (22:31)
[2019-11-05] MEDS ORDERED: BENZOCAINE/MENTHOL LOZENG 1 EACH LOZENGE MUCOUS MEM PRN (22:31)
[2019-11-05] MEDS ORDERED: ACETAMINOPHEN TAB 325 MG TAB PO PRN (22:31)
[2019-11-05] MEDS ORDERED: MAGNESIUM HYDROXIDE 2,400 MG/10 ML CUP PO PRN (22:31)
--- NOTE | 2019-11-05 22:47 | P.HPIM ---
History of Present Illness H&P Date: 11/05/19 Chief Complaint: Short of breath, cough History of presenting complaint: This is a pleasant 49-year-old patient with extensive medical history. Patient follows with visiting physicians. Dr. Chaney. Chronic stable medical conditions include atrial fibrillation, coronary artery disease with stent, COPD, UTI, hypertension, hyperlipidemia, chronic kidney disease,(s) sleep apnea, kidney stones,(s) sleep apnea does not use a device, multiple abdominal surgeries for hiatal hernia, repair prolonged hospitalizations also history of tracheostomy, peripheral arterial disease, diverticulosis,. 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 Patient has not been feeling well and has pretty much been in the bed. 3 days. Has not taking his medications last 1 week. Patient got a cough and yellow to white sputum. No fever and chills. Poor appetite. Patient had not had a bowel movement for 5 days.Had to manually evacuated himself. Patient is swelling of special lower extremity. Patient visiting nurse told the patient to come to the ER. Normally uses a scooter oral walker to get about. Normally uses one pillow at night. Patient has breakdown of superficial skin on the abdominal wall from scratching Review of systems: GEN.: Tired EYES: None HEENT: None NECK: None RESPIRATORY: As above] CARDIOVASCULAR: As above GASTROINTESTINAL: As above GENITOURINARY: None MUSCULOSKELETAL: None LYMPHATICS: None HEMATOLOGICAL: None PSYCHIATRY: None NEUROLOGICAL: None Past medical history to include: It'll fibrillation, coronary artery disease with stent, congestive heart failure EF 30-35%, COPD, DVT, hypertension, hyperlipidemia, chronic kidney disease, obstructive sleep apnea, hypothyroid, peripheral artery disease, chronic kidney disease stage III, kidney stones, DVT in the left leg in 2004,: Abscess with bowel resection, multiple abdominal surgeries for hiatal hernia,. Bladder prolonged hospitalization and prolonged medical-related dependent, with a tracheostomy tube, peripheral arterial disease, colonic diverticulosis, iron deficiency anemia,. Social history: Patient is on disability. Patient smoked for about 10 years and stopped in 2008. In his symptoms smoking in 2016 quit in November of this year. Occasionally smoking no. No alcohol. Patient lives alone. Does have a scooter and a walker Physical examination: VITAL SIGNS: 98.7, 98, 24, [id number], 97% on room air GENERAL: BMI 44.6, laying and, tired short of breath. EYES: Pupils equal. Conjunctiva normal. HEENT: External appearance of nose and ears normal, oral cavity grossly normal. NECK: JVD unable to assess; masses not palpable. HEART: First and second heart sounds are normal; edema present. LUNGS: Respiratory rate increased; decreased breath sounds with bilateral crackles. ABDOMEN: Soft, nontender, liver spleen not palpable, no masses palpable, distended, with superficial pretibial skin, scar hitchcock. PSYCH: Alert and oriented x3; mood and affect normal. NEUROLOGICAL: Cranial nerves grossly intact; no facial asymmetry, power and sensation grossly intact. LYMPHATICS: No lymph nodes palpable in the axilla and neck INVESTIGATIONS, reviewed in the clinical context: White count 9.1 hemoglobin 13.3 platelets 214 pro time 11.5 potassium 2.7 bicarb 36 bun 59, creatinine 1.66, troponin I less than 0.012, proBNP-[id number] Chest x-ray film personally reviewed by me-shows pulmonary edema and also infiltrates EKG tracing personally reviewed by me-atrial fibrillation ventricular rate controlled Assessment: -Acute on chronic congestive heart exacerbation EF of 30-35% from May 2019, from underlying coronary artery disease, and the patient stopped taking his medications about a week ago -Pneumonia suspect gram-negative organism, POA -Severe hypokalemia -Hyponatremia, likely from diuretics -Persistent atrial fibrillation -COPD in an ex-smoker -Chronic DVT chronically on anticoagulation -Hyperlipidemia -Essential hypertension -Chronic kidney disease stage III from diabetic nephropathy and hypertensive nephrosclerosis -Operative sleep apnea does not use a device -Hypothyroid -Peripheral arterial disease -Multiple abdominal wall hernia from prior surgery -Colonic diverticulosis -Morbid obesity BMI 44.6 Plan: Patient be started on a Lasix drip. Strict I's and O's. Replacement for closely. Consultation to nephrology and cardiology. Home medications resumed. Accu-Cheks will be followed. Patient need a social organization professor consultation to arrange for follow-up accordingly. Care was discussed with the patient question were answered. Expect the patient to be hospital at least for 2 overnights. Past Medical History Past Medical History: Atrial Fibrillation, Asthma, Coronary Artery Disease (CAD), Chest Pain / Angina, Heart Failure, COPD, Deep Vein Thrombosis (DVT), Hyperlipidemia, Hypertension, Myocardial Infarction ([place]), Renal Disease, Sleep Apnea/CPAP/BIPAP, Thyroid Disorder, Vascular Disorder Additional Past Medical History / Comment(s): CHF, tracheobronchitis, CKD stage III, kidney stones, DVT L leg in 2004, KAMRYN without device use, colon abscess with bowel resection, multiple abdominal surgeries for a hiatal hernia that was complicated by prolonged hospitalization and prolonged ventilator dependent respiratory failure requiring a tracheostomy tube insertion, pvd-lower legs discolored/edematous, diverticular disease, chronic iron deficiency anemia, vertigo at times, Last Myocardial Infarction Date:: History of Any Multi-Drug Resistant Organisms: MRSA Date of last positivie culture/infection: 02/01/15 MDRO Source:: Abdomen Past Surgical History: Bowel Resection, Heart Catheterization With Stent, Hernia Repair Additional Past Surgical History / Comment(s): Colonoscopies, heart stents x 4, bowel resection with colostomy and colostomy reversal (removed a foot of pts colon)-2003, hernia repair with skin grafts and 2 fistula repairs (hospitalized for 1 year @[facility] [place]2010 MRSA 2014 in wounds. Past Anesthesia/Blood Transfusion Reactions: No Reported Reaction Additional Past Anesthesia/Blood Transfusion Reaction / Comment(s): Pt has received blood in past without reaction-2010 Date of Last Stent Placement:: 03/28/2015 Past Psychological History: Depression Smoking Status: Current every day smoker Past Alcohol Use History: None Reported Past Drug Use History: None Reported - Past Family History Mother Family Medical History: Osteoarthritis (OA), Pneumonia Additional Family Medical History / Comment(s): osteoporosis. arthroscopy surgery for knee Father Family Medical History: Liver Disease, Renal Disease Additional Family Medical History / Comment(s): triple heart bypass. liver transplant. aortic aneursym Medications and Allergies Home Medications Medication Instructions Recorded Confirmed Type Sertraline [Zoloft] 100 mg PO DAILY 10/19/13 11/05/19 History Nitroglycerin Sl Tabs [Nitrostat] 0.4 mg SUBLINGUAL Q5M PRN #30 tab 12/03/14 11/05/19 Rx Atorvastatin [Lipitor] 80 mg PO HS 03/25/15 11/05/19 History Levothyroxine Sodium [Synthroid] 137 mcg PO DAILY 03/25/15 11/05/19 History Allopurinol [Zyloprim] 100 mg PO DAILY 12/17/17 11/05/19 History Apixaban [Eliquis] 5 mg PO BID tab 06/03/18 11/05/19 Rx Metoprolol Tartrate [Lopressor] 100 mg PO BID 05/13/19 11/05/19 History Furosemide [Lasix] 20 mg PO DAILY@1200 11/05/19 11/05/19 History Furosemide [Lasix] 60 mg PO BID@0900,2100 11/05/19 11/05/19 History Insulin Detemir [Levemir Flextouch] 40 units SQ HS 11/05/19 11/05/19 History Metolazone [Zaroxolyn] 2.5 mg PO BID 11/05/19 11/05/19 History Potassium Chloride Oral Liquid 20 meq PO BID 11/05/19 11/05/19 History traMADol HCL 50 mg PO BID 11/05/19 11/05/19 History Allergies Allergy/AdvReac Type Severity Reaction Status Date / Time adhesive Allergy "PLASTIC Verified 11/05/19 21:14 TAPE PEELS SKIN,PAPER TAPE IS OK" linezolid Allergy Unknown Verified 11/05/19 21:14 penicillin G Allergy Rash/Hives Verified 11/05/19 21:14 Cephalosporins AdvReac FEVER Verified 11/05/19 21:14 Physical Exam Vitals: Vital Signs Temp Pulse Resp BP Pulse Ox 11/05/19 20:17 100 18 108/79 98 11/05/19 19:32 101 H 11/05/19 19:17 98 11/05/19 18:12 98.7 F 98 24 114/78 97 Intake and Output 11/05/19 11/05/19 11/05/19 06:59 14:59 22:59 Other: Weight 145.15 kg Results CBC & Chem 7: 11/05/19 19:06 11/05/19 19:06 Labs: Abnormal Lab Results - Last 24 Hours (Table) 11/05/19 11/05/19 11/05/19 Range/Units 19:06 19:06 19:06 WBC 11.1 H (3.8-10.6) k/uL RDW 17.7 H (11.5-15.5) % Neutrophils # 8.1 H (1.3-7.7) k/uL APTT 39.6 H (22.0-30.0) sec Sodium 129 L (137-145) mmol/L Potassium 2.7 L* (3.5-5.1) mmol/L Chloride 80 L (98-107) mmol/L Carbon Dioxide 36 H (22-30) mmol/L BUN 59 H (9-20) mg/dL Creatinine 1.66 H (0.66-1.25) mg/dL Glucose 146 H (74-99) mg/dL Alkaline Phosphatase 127 H (38-126) U/L Albumin 3.4 L (3.5-5.0) g/dL
[2019-11-05] MEDS: FUROSEMIDE 100 MG in SODIUM CHLORIDE 0.9% 90 ML IV SCH (23:17)
[2019-11-05] MEDS: ATORVASTATIN 80 MG TAB PO SCH (23:18)
[2019-11-05] MEDS: INSULIN DETEMIR (LEVEMIR) 100 UNIT/ML SYR SQ SCH (23:18)
[2019-11-05] MEDS: INSULIN ASPART (NovoLOG) 100 UNIT/ML VIAL SQ SCH (23:18)
[2019-11-05] MEDS: APIXABAN 5 MG TAB PO SCH (23:19)
[2019-11-05] MEDS: POTASSIUM CHLORIDE ER 20 MEQ TAB.ER PO SCH (23:19)
[2019-11-05] MEDS: traMADol 50 MG TAB PO SCH (23:19)
[2019-11-05 23:21] LABS: Glucose,Whole Blood 178 mg/dL (75-99)
[2019-11-06 04:14] LABS: Calcium 8.8 mg/dL (8.4-10.2); Potassium 2.8 mmol/L (3.5-5.1)
[2019-11-06] MEDS ORDERED: Potassium Replacement Protocol 1 EACH MISC MISCELLANE PRN (04:32)
[2019-11-06] MEDS: LEVOTHYROXINE 137 MCG TAB PO SCH (05:35)
[2019-11-06] MEDS: POTASSIUM CHLORIDE ER 20 MEQ TAB.ER PO SCH ×8 (05:35→21:04)
[2019-11-06 06:13] LABS: Glucose,Whole Blood 138 mg/dL (75-99)
[2019-11-06] MEDS: INSULIN ASPART (NovoLOG) 100 UNIT/ML VIAL SQ SCH ×4 (06:32→21:04)
[2019-11-06 08:27] LABS: Calcium 8.8 mg/dL (8.4-10.2); Potassium 3.1 mmol/L (3.5-5.1)
[2019-11-06] MEDS: FUROSEMIDE 100 MG in SODIUM CHLORIDE 0.9% 90 ML IV SCH ×2 (09:03→17:46)
[2019-11-06] MEDS: ALLOPURINOL 100 MG TAB PO SCH (09:09)
[2019-11-06] MEDS: SERTRALINE 100 MG TAB PO SCH (09:09)
[2019-11-06] MEDS: traMADol 50 MG TAB PO SCH ×2 (09:09→21:05)
[2019-11-06] MEDS: APIXABAN 5 MG TAB PO SCH ×2 (09:09→21:04)
[2019-11-06 11:45] LABS: Glucose,Whole Blood 172 mg/dL (75-99)
--- NOTE | 2019-11-06 11:57 | ECHOF ---
Referral Reason:chf MEASUREMENTS -------- HEIGHT: 180.3 cm WEIGHT: 142.0 kg BP: 92/58 RVIDd: 3.3 cm (< 3.3) IVSd: 1.9 cm (0.6 - 1.1) LVIDd: 4.7 cm (3.9 - 5.3) LVPWd: 1.8 cm (0.6 - 1.1) IVSs: 1.9 cm LVIDs: 4.3 cm LVPWs: 2.0 cm LA Diam: 4.6 cm (2.7 - 3.8) Ao Diam: 2.6 cm (2.0 - 3.7) AV Cusp: 2.2 cm (1.5 - 2.6) MV EXCURSION: 23.492 mm (> 18.000) MV EF SLOPE: 249 mm/s (70 - 150) EPSS: 0.3 cm RAP: 5.00 mmHg RVSP: 41.56 mmHg FINDINGS -------- Atrial fibrillation. This was a technically difficult study with suboptimal views. The left ventricular size is normal. There is severe concentric left ventricular hypertrophy. Ove rall left ventricular systolic function is mild-moderately impaired with, an EF between 40 - 45 %. Apical septum LV wall motion is hypokinetic. The right ventricle is normal in size. The left atrium is mildly dilated. The right atrium was not well visualized. 5.0mg of Lumason was utilized for enhancement of images Interatrial and interventricular septum intact. The aortic valve was not well visualized. Mild mitral regurgitation is present. Mild tricuspid regurgitation present. There is mild pulmonary hypertension. The right ventricular systolic pressure, as measured by Doppler, is 41.56mmHg. The pulmonic valve was not well visualized. The aortic root size is normal. The inferior vena cava is mildly dilated. Echo free space represents a pericardial fat pad. CONCLUSIONS -------- 1. Atrial fibrillation. 2. This was a technically difficult study with suboptimal views. 3. The left ventricular size is normal. 4. There is severe concentric left ventricular hypertrophy. 5. Apical septum LV wall motion is hypokinetic. 6. The right ventricle is normal in size. 7. The left atrium is mildly dilated. 8. The right atrium was not well visualized. 9. 5.0mg of Lumason was utilized for enhancement of images 10. Interatrial and interventricular septum intact. 11. The aortic valve was not well visualized. 12. Mild mitral regurgitation is present. 13. Mild tricuspid regurgitation present. 14. There is mild pulmonary hypertension. 15. The right ventricular systolic pressure, as measured by Doppler, is 41.56mmHg. 16. The pulmonic valve was not well visualized. 17. The aortic root size is normal. 18. The inferior vena cava is mildly dilated. 19. Echo free space represents a pericardial fat pad. CHEMICAL PRODUCTION ENGINEER: Mariella Antunez RDCS
[2019-11-06] MEDS: METOPROLOL TARTRATE 50 MG TAB PO SCH ×2 (12:03→21:04)
[2019-11-06] MEDS: MIDODRINE 5 MG TAB PO SCH (12:07)
[2019-11-06] MEDS: BACITRACIN 500 UNIT/GM OINT 28.4 GM TUBE TOPICAL SCH ×2 (12:07→21:04)
[2019-11-06 12:37] VITALS: BMI 43.7
--- NOTE | 2019-11-06 13:04 | P.CNPUL ---
History of Present Illness Consult date: 11/06/19 Requesting physician: Vamshi Barrera Reason for consult: dyspnea, cough Chief complaint: Dyspnea, cough, weakness, body aches History of present illness: 49-year-old male patient with multiple comorbid conditions including advanced COPD, with baseline FEV1 of 1.43 L or 35% of predicted consistent with stage III COPD, previous history of respiratory failure requiring prolonged mechanical ventilator support and placement of tracheostomy tube and subsequent removal, paroxysmal atrial fibrillation on Eliquis, hypothyroidism, morbid obesity, history of DVT, depression, hyperlipidemia, previous history of myocardial infarction, coronary arterial sclerosis, chronic kidney disease, unspecified, chronic venous stasis, chronic CHF with systolic and diastolic dysfunction and EF, previous history of colonic abscess status post bowel resection with placement of colostomy and subsequent reversal, and history of incisional hernia and fistula repairs, and MRSA infection in surgical wounds. Patient presented to the emergency department on 11/05/2019 for evaluation of worsening shortness of breath for 4 days, cough without phlegm production, body aches, weakness, patient denies any fever or chills. He states he was not able to yet up out of bed, he missed 4 days worth of his medications including his diuretics reports increasing swelling in his lower extremities. Did have some right-sided chest pain on admission, denied any palpitations, denied any nausea, vomiting or diarrhea. His chest x-ray showed increased pulmonary vasculature bilaterally with a fine reticular pattern, consistent with mild interstitial phase pulmonary edema and partial consolidative opacity in the right lower lung zone. EKG showed A. fib with a rate of 100 bpm, and ST and T-wave abnormality consideration of lateral ischemia. Initial blood work showed white blood cell count of 11.1, hemoglobin of 13.3, INR was 1.1, sodium was 129, potassium is 2.7, chloride was 80, CO2 is 36, B1 is 15 9, creatinine is 1.66, plasma lactic acid was 1.8, AST and ALT were within normal limits, alk phos was 127, troponins were less than 0.0122, proBNP was 8760. Afebrile, initially normotensive, hypotensive this morning with blood pressure of 87/53, he is satting 98% on 4 L. He was started on empiric antibiotics in the form of Rocephin, midodrine was added by nephrology, pro-calcitonin is pending, urinalysis has been ordered, sputum culture is uncollected. Review of Systems All systems: negative Constitutional: Reports malaise, Reports weakness, Denies chills, Denies fever Eyes: denies blurred vision, denies pain Ears, nose, mouth and throat: Denies headache, Denies sore throat Cardiovascular: Denies chest pain, Denies shortness of breath Respiratory: Reports dyspnea, Denies cough Gastrointestinal: Denies abdominal pain, Denies diarrhea, Denies nausea, Denies vomiting Musculoskeletal: Denies myalgias Integumentary: Denies pruritus, Denies rash Neurological: Denies numbness, Denies weakness Psychiatric: Denies anxiety, Denies depression Endocrine: Denies fatigue, Denies weight change Past Medical History Past Medical History: Atrial Fibrillation, Asthma, Coronary Artery Disease (CAD), Chest Pain / Angina, Heart Failure, COPD, Deep Vein Thrombosis (DVT), Hyperlipidemia, Hypertension, Myocardial Infarction ([place]), Renal Disease, Sleep Apnea/CPAP/BIPAP, Thyroid Disorder, Vascular Disorder Additional Past Medical History / Comment(s): CHF, tracheobronchitis, CKD stage III, kidney stones, DVT L leg in 2004, KAMRYN without device use, colon abscess with bowel resection, multiple abdominal surgeries for a hiatal hernia that was complicated by prolonged hospitalization and prolonged ventilator dependent respiratory failure requiring a tracheostomy tube insertion, pvd-lower legs discolored/edematous, diverticular disease, chronic iron deficiency anemia, vertigo at times, Last Myocardial Infarction Date:: History of Any Multi-Drug Resistant Organisms: MRSA Date of last positivie culture/infection: 02/01/15 MDRO Source:: Abdomen Past Surgical History: Bowel Resection, Heart Catheterization With Stent, Hernia Repair Additional Past Surgical History / Comment(s): Colonoscopies, heart stents x 4, bowel resection with colostomy and colostomy reversal (removed a foot of pts colon)-2003, hernia repair with skin grafts and 2 fistula repairs (hospitalized for 1 year @[facility] [place]2010 MRSA 2014 in wounds. Past Anesthesia/Blood Transfusion Reactions: No Reported Reaction Additional Past Anesthesia/Blood Transfusion Reaction / Comment(s): Pt has received blood in past without reaction-2010 Date of Last Stent Placement:: 03/28/2015 Past Psychological History: Depression Smoking Status: Current every day smoker Past Alcohol Use History: None Reported Past Drug Use History: None Reported - Past Family History Mother Family Medical History: Osteoarthritis (OA), Pneumonia Additional Family Medical History / Comment(s): osteoporosis. arthroscopy surgery for knee Father Family Medical History: Liver Disease, Renal Disease Additional Family Medical History / Comment(s): triple heart bypass. liver transplant. aortic aneursym Medications and Allergies Home Medications Medication Instructions Recorded Confirmed Type Sertraline [Zoloft] 100 mg PO DAILY 10/19/13 11/05/19 History Nitroglycerin Sl Tabs [Nitrostat] 0.4 mg SUBLINGUAL Q5M PRN #30 tab 12/03/14 11/05/19 Rx Atorvastatin [Lipitor] 80 mg PO HS 03/25/15 11/05/19 History Levothyroxine Sodium [Synthroid] 137 mcg PO DAILY 03/25/15 11/05/19 History Allopurinol [Zyloprim] 100 mg PO DAILY 12/17/17 11/05/19 History Apixaban [Eliquis] 5 mg PO BID tab 06/03/18 11/05/19 Rx Metoprolol Tartrate [Lopressor] 100 mg PO BID 05/13/19 11/05/19 History Furosemide [Lasix] 20 mg PO DAILY@1200 11/05/19 11/05/19 History Furosemide [Lasix] 60 mg PO BID@0900,2100 11/05/19 11/05/19 History Insulin Detemir [Levemir Flextouch] 40 units SQ HS 11/05/19 11/05/19 History Metolazone [Zaroxolyn] 2.5 mg PO BID 11/05/19 11/05/19 History Potassium Chloride Oral Liquid 20 meq PO BID 11/05/19 11/05/19 History traMADol HCL 50 mg PO BID 11/05/19 11/05/19 History Allergies Allergy/AdvReac Type Severity Reaction Status Date / Time adhesive Allergy "PLASTIC Verified 11/05/19 21:14 TAPE PEELS SKIN,PAPER TAPE IS OK" linezolid Allergy Unknown Verified 11/05/19 21:14 penicillin G Allergy Rash/Hives Verified 11/05/19 21:14 Cephalosporins AdvReac FEVER Verified 11/05/19 21:14 Physical Exam Vitals: Vital Signs Temp Pulse Pulse Resp BP BP Pulse Ox 05/22/20 11:51 98.3 F 98 16 87/53 98 11/06/19 08:35 102 H 92/58 11/06/19 08:00 20 11/06/19 07:44 98 F 93 20 91/57 98 11/06/19 03:11 97.9 F 104 H 18 104/67 99 11/06/19 00:29 99 20 11/05/19 22:30 98.2 F 99 20 90/50 99 11/05/19 20:17 100 18 108/79 98 11/05/19 19:32 101 H 11/05/19 19:17 98 11/05/19 18:12 98.7 F 98 24 114/78 97 Intake and Output 11/05/19 11/06/19 11/06/19 22:59 06:59 14:59 Intake Total 222 720 97.667 Output Total 1450 950 Balance 222 -730 -852.333 Intake: Intake, IV Titration 97.667 Amount Furosemide 100 mg In 97.667 Sodium Chloride 0.9% 90 ml @ 5 MG/HR 5 mls/hr IV .Q20H [facility] Rx#:[id number] Oral 222 720 Output: Urine 1450 950 Other: Voiding Method Urinal Urinal Weight 145.15 kg 142.3 kg GENERAL EXAM: Alert, very pleasant, 49-year-old male, on 4 L of oxygen the pulse ox of 98% comfortable in no apparent distress. HEAD: Normocephalic/atraumatic. EYES: Normal reaction of pupils, equal size. Conjunctiva pink, sclera white. NOSE: Clear with pink turbinates. THROAT: No erythema or exudates. NECK: No masses, no JVD, no thyroid enlargement, no adenopathy. CHEST: No chest wall deformity. Symmetrical expansion. LUNGS: Equal air entry with no crackles, wheeze, rhonchi or dullness. CVS: Irregular rate and rhythm, normal S1 and S2, no gallops, no murmurs, no rubs ABDOMEN: Soft, nontender. No hepatosplenomegaly, normal bowel sounds, no guarding or rigidity. EXTREMITIES: No clubbing, 1+ lower extremity edema, with chronic venous stasis changes involving the lower extremities, no cyanosis, 2+ pulses and upper and lower extremities. MUSCULOSKELETAL: Muscle strength and tone normal. SPINE: No scoliosis or deformity SKIN: No rashes CENTRAL NERVOUS SYSTEM: Alert and oriented -3. No focal deficits, tone is normal in all 4 extremities. PSYCHIATRIC: Alert and oriented -3. Appropriate affect. Intact judgment and insight. Results - Laboratory Findings CBC and BMP: 11/05/19 19:06 11/06/19 07:56 PT/INR, D-dimer PT 11.5 sec (9.0-12.0) 11/05/19 19:06 INR 1.1 (<1.2) 11/05/19 19:06 Abnormal lab findings: Abnormal Labs 11/05/19 11/05/19 11/05/19 19:06 19:06 19:06 WBC 11.1 H RDW 17.7 H Neutrophils # 8.1 H APTT 39.6 H Sodium 129 L Potassium 2.7 L* Chloride 80 L Carbon Dioxide 36 H BUN 59 H Creatinine 1.66 H Glucose 146 H POC Glucose (mg/dL) Alkaline Phosphatase 127 H Albumin 3.4 L 11/05/19 11/06/19 11/06/19 23:14 03:40 06:12 WBC RDW Neutrophils # APTT Sodium 130 L Potassium 2.8 L Chloride 79 L Carbon Dioxide 39 H BUN 60 H Creatinine 1.64 H Glucose 151 H POC Glucose (mg/dL) 178 H 138 H Alkaline Phosphatase Albumin 11/06/19 11/06/19 07:56 11:43 WBC RDW Neutrophils # APTT Sodium 132 L Potassium 3.1 L Chloride 82 L Carbon Dioxide 36 H BUN 60 H Creatinine 1.83 H Glucose 123 H POC Glucose (mg/dL) 172 H Alkaline Phosphatase Albumin - Diagnostic Findings Chest x-ray: report reviewed, image reviewed Additional studies: EKG reviewed, echocardiogram reviewed Assessment and Plan Plan: Assessment: #1. Acute exacerbation of chronic CHF with systolic and diastolic dysfunction, and echocardiogram showed EF of 40-45%, mild mitral regurg, mild tricuspid regurg, and mild pulmonary hypertension with right-sided pressures of 41.6 mmHg #2. Weakness, body aches, shortness of breath and cough, rule out COVID 19 infection #3. Hypokalemia, related to dehydration, diuretics and poor oral intake #4. Chronic persistent atrial fibrillation on Eliquis #5. Right chest discomfort, 2 sets of troponins were negative #6. Chronic kidney disease stage III #7. Advanced COPD, stage III, with baseline FEV1 of 1.43 L or 35% of predicted, FVC of 2.06 L or 40% of predicted, with no significant response after bronchodilators #8. Chronic hypoxic respiratory failure, multifactorial, related to history of COPD and chronic congestive heart failure and obstructive sleep apnea #9. History of obstructive sleep apnea not on CPAP therapy #10. Previous history of respiratory failure requiring prolonged mechanical ventilator support with placement of tracheostomy and subsequent liberation from mechanical ventilator and decannulation #11. Previous history of colonic abscess, status post bowel resection with colostomy placement and reversal, with subsequent hernia repairs, MRSA infection #12. Hypothyroidism #13. Morbid obesity #14. Previous history of DVT on Eliquis #15. Depressive disorder #16. Previous history of myocardial infarction #17. Renal artery disease with previous stenting #18. Gait dysfunction, patient is mostly wheelchair bound, but is able to get in a wheelchair by himself Plan: Continue Lasix drip, echocardiogram results have been noted, continue empiric antibiotics, procalcitonin level is pending, patient has had no fever or chills, but he did have symptoms of body aches, loss of breath and cough, we will test him for COVID 19. Continue oral anticoagulation, follow-up chest x-ray in the morning, follow-up electrolytes and renal profile, daily weights and accurate intake and output. I performed a history & physical examination of the patient and discussed their management with my nurse practitioner, Paola Tompkins. I reviewed the nurse practitioner's note and agree with the documented findings and plan of care. Lung sounds are positive for diminished breath sounds. The findings and the impression was discussed with the patient. I attest to the documentation by the nurse practitioner. Time with Patient: Greater than 30
--- NOTE | 2019-11-06 14:50 | CONS ---
CONSULTATION CHIEF COMPLAINT: Shortness of breath and leg edema. Maximo is a 49-year-old gentleman with history of persistent atrial fibrillation, coronary artery disease status post angioplasty, morbid obesity, COPD, chronic renal insufficiency and chronic systolic heart failure, who is admitted to the hospital with progressively worsening leg edema and shortness of breath. His admission labs showed that the BNP was elevated, troponin was normal and he had hypokalemia with elevated BUN and creatinine. The patient had been treated with Lasix drip with improvement in his symptoms and some improvement in the leg edema. The patient this morning appears somewhat hypotensive with a blood pressure of 92/58, O2 saturation is 98% on 4 L. Patient's clinical presentation is consistent with acute exacerbation of chronic systolic heart failure. The patient had an echocardiogram in April of 2019 that revealed an ejection fraction of 30% to 35%. His EKG shows atrial fibrillation with nonspecific ST-T wave changes. PAST MEDICAL HISTORY: Significant for coronary artery disease status post angioplasty, ischemic cardiomyopathy, chronic systolic heart failure, chronic renal insufficiency and permanent atrial fibrillation. MEDICATIONS: At home included tramadol, Zoloft, Lopressor 100 b.i.d., Zaroxolyn 2.5 b.i.d., Synthroid, Lasix, Lipitor, Eliquis, and Zyloprim. ALLERGIES: To PENICILLIN, CEPHALOSPORINS and ADHESIVES. FAMILY HISTORY: Negative for premature coronary artery disease. SOCIAL HISTORY: Negative for current smoking, EtOH abuse, or drug abuse. REVIEW OF SYSTEMS: HEENT: Unremarkable. CARDIAC: As described above. RESPIRATORY: As described above. GI: Negative. GENITOURINARY: As described above. PSYCHOSOCIAL: Negative. ENDOCRINE: Negative. DERM: Negative. CONSTITUTIONAL: Negative. ONCOLOGICAL: Negative GREEN END WORKER: Negative. Rest of the system review is not relevant. PHYSICAL EXAMINATION: On exam, patient is afebrile. Heart rate is 100 beats per minute, blood pressure is 92/58, respiratory rate is 18. There is no jugular venous distention. Carotid upstroke is normal. There is no bruit. Chest exam reveals good air entry bilaterally. Heart exam reveals first and second heart sounds, irregular rhythm, no murmur. Abdomen is soft. Exam of extremities reveals bilateral pitting edema with chronic stasis changes and pigmentation. LABS: Show that the potassium is low at 3.1, BUN is 60, creatinine is 1.8. Troponin is negative. BNP is elevated. ASSESSMENT: 1. Acute exacerbation of chronic systolic heart failure. 2. Ischemic cardiomyopathy. 3. Coronary artery disease, status post angioplasty. 4. Hypokalemia. PLAN: I will obtain a 2D echo to assess LV function. I am going to cut back on the Lasix drip to 5 mg an hour given the hypotension and evidence of renal insufficiency. Continue the Eliquis and cut back on the dose of metoprolol at this time. MMODL / IJN: [id number] /
--- NOTE | 2019-11-06 16:03 | P.PN ---
Progress Note - Text Progress Note Date: 11/06/19 Chief Complaint: Short of breath, cough History of presenting complaint: This is a pleasant 49-year-old patient with extensive medical history. Patient follows with visiting physicians. Dr. Chaney. Chronic stable medical conditions include atrial fibrillation, coronary artery disease with stent, COPD, UTI, hypertension, hyperlipidemia, chronic kidney disease,(s) sleep apnea, kidney stones,(s) sleep apnea does not use a device, multiple abdominal surgeries for hiatal hernia, repair prolonged hospitalizations also history of tracheostomy, peripheral arterial disease, diverticulosis,. 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 Patient has not been feeling well and has pretty much been in the bed. 3 days. Has not taking his medications last 1 week. Patient got a cough and yellow to white sputum. No fever and chills. Poor appetite. Patient had not had a bowel movement for 5 days.Had to manually evacuated himself. Patient is swelling of special lower extremity. Patient visiting nurse told the patient to come to the ER. Normally uses a scooter oral walker to get about. Normally uses one pillow at night. Patient has breakdown of superficial skin on the abdominal wall from scratching Admitted with-acute on chronic congestive heart failure exacerbation, pneumonia, severe hypokalemia, hyponatremia. Started and IV Lasix drip. IV ceftriaxone. Bronchodilators. Today-breathing a bit better. Appetite better. Slight cough. In bed. Review of systems: Was done for constitutional, cardiovascular, GI, pulmonary. relevant finding as above Active Medications Acetaminophen (Tylenol Tab) 650 mg PO Q6HR PRN PRN Reason: Mild Pain or Fever > 100.5 Last Admin: 11/06/19 03:08 Dose: 650 mg Documented by: Al Hydroxide/Mg Hydroxide (Maalox) 15 ml PO Q6HR PRN PRN Reason: Indigestion Allopurinol (Zyloprim) 100 mg PO DAILY [facility] Last Admin: 11/06/19 09:09 Dose: 100 mg Documented by: Apixaban (Eliquis) 5 mg PO BID [facility] Last Admin: 11/06/19 09:09 Dose: 5 mg Documented by: Atorvastatin Calcium (Lipitor) 80 mg PO HS [facility] Last Admin: 11/05/19 23:18 Dose: 80 mg Documented by: Bacitracin (Bacitracin Oint) 1 applic TOPICAL BID [facility] Last Admin: 11/06/19 12:07 Dose: 1 applic Documented by: Benzocaine/Menthol (Cepacol Lozenge) 1 each MUCOUS MEM Q4HR PRN PRN Reason: Sore Throat Calcium Carbonate/Glycine (Tums) 500 mg PO Q4HR PRN PRN Reason: Dyspepsia Furosemide 100 mg/ Sodium (Chloride) 100 mls @ 5 mls/hr IV .Q20H [facility] Last Admin: 11/06/19 09:03 Dose: 10 mg/hr, 10 mls/hr Documented by: Ceftriaxone Sodium 1 gm/ (Sodium Chloride) 50 mls @ 100 mls/hr IVPB Q24H [facility] Last Admin: 11/05/19 23:18 Dose: 100 mls/hr Documented by: Insulin Aspart (Novolog) 0 unit SQ [facility]; Protocol Last Admin: 11/06/19 12:07 Dose: 2 unit Documented by: Insulin Detemir (Levemir) [address] [facility] Last Admin: 11/05/19 23:18 Dose: 40 unit Documented by: Lactulose (Cephulac) 20 gm PO DAILY PRN PRN Reason: Constipation Levothyroxine Sodium (Synthroid) 137 mcg PO DAILY@0630 [facility] Last Admin: 11/06/19 05:35 Dose: 137 mcg Documented by: Magnesium Hydroxide (Milk Of Magnesia) 2,400 mg PO DAILY PRN PRN Reason: Constipation Melatonin (Melatonin) 3 mg PO HS PRN PRN Reason: Insomnia Metoprolol Tartrate (Lopressor) 50 mg PO BID [facility] Last Admin: 11/06/19 12:03 Dose: Not Given Documented by: Midodrine (Proamatine) 5 mg PO AC-BID [facility] Last Admin: 11/06/19 12:07 Dose: 5 mg Documented by: Miscellaneous Information (Potassium Per Protocol) 1 each MISCELLANE DAILY PRN; Protocol PRN Reason: Per Protocol Miscellaneous Information (Potassium Per Protocol) 1 each MISCELLANE DAILY PRN; Protocol PRN Reason: Per Protocol Naloxone HCl (Narcan) 0.2 mg IV Q2M PRN PRN Reason: Opioid Reversal Ondansetron HCl (Zofran) 4 mg IVP Q8HR PRN PRN Reason: Nausea And Vomiting Potassium Chloride (K-Dur 20) 20 meq PO BID [facility] Last Admin: 11/06/19 09:09 Dose: 20 meq Documented by: Sertraline HCl (Zoloft) 100 mg PO DAILY [facility] Last Admin: 11/06/19 09:09 Dose: 100 mg Documented by: Sodium Biphosphate/Sodium Phosphate (Fleet Adult) 133 ml RECTAL ONCE PRN PRN Reason: Constipation Tramadol HCl (Ultram) 50 mg PO BID [facility] Last Admin: 11/06/19 09:09 Dose: Not Given Documented by: Physical examination: VITAL SIGNS: 98.3, 98, 16, 87/53, 98% on 4 L GENERAL: BMI 44.6, laying and, less short of breath EYES: Pupils equal. Conjunctiva normal. HEENT: External appearance of nose and ears normal, oral cavity grossly normal. NECK: JVD unable to assess; masses not palpable. HEART: First and second heart sounds are normal; edema present. LUNGS: Respiratory rate increased; decreased breath sounds with bilateral crackles. ABDOMEN: Soft, nontender, liver spleen not palpable, no masses palpable, distended, with superficial pretibial skin, scar hitchcock. PSYCH: Alert and oriented x3; mood and affect normal. INVESTIGATIONS, reviewed in the clinical context: Potassium 3.1 bun 60 creatinine 1.83 pro calcitonin 0.11 2-D echocardiogram severe concentric LVH, EF 40-45% apical hypokinesia. Previous testing White count 9.1 hemoglobin 13.3 platelets 214 pro time 11.5 potassium 2.7 bicarb 36 bun 59, creatinine 1.66, troponin I less than 0.012, proBNP-[id number] Chest x-ray film personally reviewed by me-shows pulmonary edema and also infiltrates EKG tracing personally reviewed by me-atrial fibrillation ventricular rate controlled Assessment: -Acute on chronic congestive heart exacerbation EF of 40-45% %, from underlying coronary artery disease, and the patient stopped taking his medications about a week ago-slow to respond -Pneumonia suspect gram-negative organism, POA -Severe hypokalemia -Hyponatremia, likely from diuretics-slow to respond -Persistent atrial fibrillation -COPD in an ex-smoker -Chronic DVT chronically on anticoagulation -Hyperlipidemia -Essential hypertension -Chronic kidney disease stage III from diabetic nephropathy and hypertensive nephrosclerosis -Operative sleep apnea does not use a device -Hypothyroid -Peripheral arterial disease -Multiple abdominal wall hernia from prior surgery -Colonic diverticulosis -Morbid obesity BMI 44.6 Plan: Seen by cardio GAlex Drip cut back to 5 mg an hour. Dose of metoprolol also cut back. Care discussed with the patient. Patient being tested for COVID-19. Other medications to continue.
--- NOTE | 2019-11-06 16:04 | CONS ---
CONSULTATION REASON FOR CONSULT: Renal failure. HISTORY OF PRESENT ILLNESS: The patient is a 49-year-old male with history of chronic kidney disease, stage III, secondary to diabetic kidney disease, cardiorenal syndrome, creatinine usually fluctuating about 1.4 initially but now mostly around 1.7 to 1.5 mg/dL. The patient was admitted to the hospital with complaints of shortness of breath, increased lower extremity edema and weight gain. He stated that he had stopped taking his Lasix. He denied any fevers, chills or cough. No abdominal pain, diarrhea or vomiting. Serum creatinine this admission was 1.6. It is currently at 1.8 mg/dL. The patient is maintained on Lasix drip at 5 mg/hour. PAST MEDICAL HISTORY: His past medical history is significant for CKD, COPD, atrial fibrillation, coronary artery disease, hypertension, hyperlipidemia, obstructive sleep apnea, nephrolithiasis, DVT, bowel resection for colonic abscess, history of tracheostomy with prolonged respiratory failure, vertigo. PAST SURGICAL HISTORY: Colonoscopies, coronary stents, bowel resection, colostomy with reversal of colostomy, hernia repair, wound debridements. SOCIAL HISTORY: Patient is a smoker. No history of drug abuse or alcohol abuse. MEDICATIONS: Medications prior to admission include Zoloft, Lipitor, zyloprim, Eliquis, Lasix, Lopressor, insulin, potassium, tramadol. ALLERGIES: ALLERGIES include ZYVOX, PENICILLIN, CEPHALOSPORINS. REVIEW OF SYSTEMS: As per HPI. Other systems negative. PHYSICAL EXAMINATION: Patient is comfortable, awake, not in any acute distress. Blood pressure was 91/57, heart rate 93 per minute. He is afebrile. EXAMINATION OF THE HEART: S1 and S2. EXAMINATION OF LUNGS: Decreased breath sounds at bases. Basal crackles are heard. ABDOMEN: Soft, non-tender. Examination of lower extremities shows chronic skin changes, edema 1+, mainly chronic, with discoloration of the skin noted as well. PLATINUMSMITH exam is grossly intact. LABS: Sodium 132, potassium 3.1, chloride 82, BUN 60. CO2 is 36, creatinine 1.83. ASSESSMENT: 1. Acute kidney injury, cardiorenal. Renal function slightly worse today. I will continue with the Lasix drip for now. Repeat labs in a.m. Patient's blood pressure is low. He is not on any antihypertensive medications except Lopressor, the dose of which will be decreased. Patient's heart rate has been around 102 to 104 beats per minute; therefore I will hold off on decreasing the Lopressor for now. We can add midodrine. 2. Cardiomyopathy, ejection fraction 30% to 35% on echocardiogram in April of 2019. 3. Congestive heart failure, acute on top of chronic, systolic. 4. Volume overload associated with the patient not taking his diuretics for about 1 to 2 weeks prior to admission. 5. Hypokalemia associated with diuresis, being replaced and improved. 6. Hypervolemic hyponatremia, improving with diuresis. 7. Chronic kidney disease, stage III. Baseline creatinine about 1.5 to 1.7 mg/dL. Etiology is diabetic kidney disease and cardiorenal syndrome. 8. Metabolic alkalosis secondary to diuresis. PLAN: Replace potassium. Continue with Lasix drip. Check urinalysis. Repeat labs in a.m. Avoid any nephrotoxic agents. Thank you for this consultation. Will continue to follow the patient with you during his hospitalization. He will also need outpatient followup. EUNICE / NORBERT: [id number] /
[2019-11-06 16:14] LABS: Appearance,Urine Clear (Clear); Bilirubin,Urine Negative (Negative); Blood,Urine Negative (Negative); Color,Urine Light Yellow; Glucose,Urine (UA) Negative (Negative); Ketones,Urine Negative (Negative); Leukocyte Esterase,Urine Negative (Negative); Nitrite,Urine Negative (Negative); Protein,Urine Negative (Negative); Specific Gravity,Urine 1.007 (1.001-1.035); Urobilinogen,Urine <2.0 mg/dL (<2.0)
[2019-11-06 16:19] LABS: Glucose,Whole Blood 131 mg/dL (75-99)
[2019-11-06 20:24] LABS: Glucose,Whole Blood 153 mg/dL (75-99)
[2019-11-06] MEDS: ATORVASTATIN 80 MG TAB PO SCH (21:04)
[2019-11-06] MEDS: INSULIN DETEMIR (LEVEMIR) 100 UNIT/ML SYR SQ SCH (21:05)
[2019-11-07 06:02] LABS: Glucose,Whole Blood 105 mg/dL (75-99)
[2019-11-07] MEDS: INSULIN ASPART (NovoLOG) 100 UNIT/ML VIAL SQ SCH ×4 (06:07→20:58)
[2019-11-07] MEDS: LEVOTHYROXINE 137 MCG TAB PO SCH (06:38)
[2019-11-07] MEDS: MIDODRINE 5 MG TAB PO SCH ×2 (06:38→17:26)
[2019-11-07 07:27] LABS: Anisocytosis Slight; Basophils # (A) 0.1 k/uL (0-0.2); Basophils % (A) 1 %; Eosinophils # (A) 0.7 k/uL (0-0.7); Eosinophils % (A) 6 %; HCT 41.2 % (39.0-53.0); HGB 13.8 gm/dL (13.0-17.5); Hypochromasia Slight; Lymphocytes # (A) 1.7 k/uL (1.0-4.8); Lymphocytes % (A) 15 %; MCH 28.3 pg (25.0-35.0); MCHC 33.5 g/dL (31.0-37.0); MCV 84.5 fL (80.0-100.0); Mean Platelet Volume 8.5; Monocytes # (A) 0.6 k/uL (0-1.0); Monocytes % (A) 5 %; Neutrophils # (A) 7.9 k/uL (1.3-7.7); Neutrophils % (A) 71 %; Platelet Count 214 k/uL (150-450); Poikilocytosis Slight; RBC 4.87 m/uL (4.30-5.90); RDW 17.3 % (11.5-15.5); WBC 11.1 k/uL (3.8-10.6)
[2019-11-07 07:45] LABS: Calcium 9.2 mg/dL (8.4-10.2); Potassium 2.8 mmol/L (3.5-5.1)
--- NOTE | 2019-11-07 07:51 | XR ---
EXAMINATION TYPE: XR chest 1V portable DATE OF EXAM: 11/07/2019 COMPARISON: Prior chest x-ray 11/05/2019 HISTORY: Follow-up, abnormal chest x-ray TECHNIQUE: Single frontal view of the chest is obtained. FINDINGS: The heart remains enlarged. No evident pneumothorax or pleural effusion. Interval improved visualization of the right hemidiaphragm. Central vascularity mildly prominent. Interstitium mildly increased. IMPRESSION: Suspect some improvement in aeration.
[2019-11-07] MEDS: SERTRALINE 100 MG TAB PO SCH (07:58)
[2019-11-07] MEDS: traMADol 50 MG TAB PO SCH ×2 (07:58→20:56)
[2019-11-07] MEDS: ALLOPURINOL 100 MG TAB PO SCH (07:58)
[2019-11-07] MEDS: APIXABAN 5 MG TAB PO SCH ×2 (07:59→20:57)
[2019-11-07] MEDS: METOPROLOL TARTRATE 50 MG TAB PO SCH ×3 (08:00→20:56)
[2019-11-07] MEDS: POTASSIUM CHLORIDE ER 20 MEQ TAB.ER PO SCH ×4 (08:00→20:56)
[2019-11-07] MEDS: BACITRACIN 500 UNIT/GM OINT 28.4 GM TUBE TOPICAL SCH ×2 (09:05→20:58)
[2019-11-07] MEDS ORDERED: Potassium Replacement Protocol 1 EACH MISC MISCELLANE PRN (09:11)
[2019-11-07] MEDS ORDERED: POTASSIUM CHLORIDE ER 20 MEQ TAB.ER PO STA (11:16)
--- NOTE | 2019-11-07 11:16 | P.PN ---
Subjective Patient is seen in follow-up for acute kidney injury on chronic kidney disease. Renal function is stable. Patient is diuresing well with Lasix drip. Edema improved. Denies chest pain or shortness of breath. Vital signs are stable. General: The patient appeared well nourished and normally developed. HEENT: Head exam is unremarkable. Neck is without jugular venous distension. LUNGS: Lungs are clear to auscultation and percussion. Breath sounds decreased. HEART: Rate and Rhythm are regular. ABDOMEN: Abdominal exam reveals normal bowel sounds. Non-tender and non- distended. Obese. EXTREMITITES: Trace edema. Chronic changes noted. Objective - Vital Signs Vital signs: Vital Signs Temp 98.3 F 11/07/19 08:00 Pulse 87 11/07/19 08:00 Resp 18 11/07/19 08:00 BP 92/71 11/07/19 08:00 Pulse Ox 99 11/07/19 08:00 Intake & Output 11/06/19 11/07/19 11/07/19 18:59 06:59 18:59 Intake Total 886.834 862 80 Output Total 2200 1675 700 Balance -1313.166 -813 -620 Weight 142.3 kg 138.4 kg Intake: IV 80 .9 80 Intake, IV Titration 184.834 Amount Furosemide 100 mg In 184.834 Sodium Chloride 0.9% 90 ml @ 5 MG/HR 5 mls/hr IV .Q20H [facility] Rx#:[id number] Oral [id number] [id number] Output: Urine 2200 1675 700 Other: Voiding Method Urinal Urinal # Voids 1 1 - Labs CBC & Chem 7: 11/07/19 07:01 11/07/19 07:01 Labs: Abnormal Lab Results - Last 24 Hours (Table) 11/06/19 11/06/19 11/06/19 Range/Units 03:40 11:43 16:16 WBC (3.8-10.6) k/uL RDW (11.5-15.5) % Neutrophils # (1.3-7.7) k/uL Sodium (137-145) mmol/L Potassium (3.5-5.1) mmol/L Chloride (98-107) mmol/L Carbon Dioxide (22-30) mmol/L BUN (9-20) mg/dL Creatinine (0.66-1.25) mg/dL Glucose (74-99) mg/dL POC Glucose (mg/dL) 172 H 131 H (75-99) mg/dL Procalcitonin 0.11 H (0.02-0.09) ng/mL 11/06/19 11/07/19 11/07/19 Range/Units 20: 06:01 07:01 WBC (3.8-10.6) k/uL RDW (11.5-15.5) % Neutrophils # (1.3-7.7) k/uL Sodium 135 L (137-145) mmol/L Potassium 2.8 L (3.5-5.1) mmol/L Chloride 86 L (98-107) mmol/L Carbon Dioxide 38 H (22-30) mmol/L BUN 65 H (9-20) mg/dL Creatinine 1.83 H (0.66-1.25) mg/dL Glucose 103 H (74-99) mg/dL POC Glucose (mg/dL) 153 H 105 H (75-99) mg/dL Procalcitonin (0.02-0.09) ng/mL 11/07/19 Range/Units 07:01 WBC 11.1 H (3.8-10.6) k/uL RDW 17.3 H (11.5-15.5) % Neutrophils # 7.9 H (1.3-7.7) k/uL Sodium (137-145) mmol/L Potassium (3.5-5.1) mmol/L Chloride (98-107) mmol/L Carbon Dioxide (22-30) mmol/L BUN (9-20) mg/dL Creatinine (0.66-1.25) mg/dL Glucose (74-99) mg/dL POC Glucose (mg/dL) (75-99) mg/dL Procalcitonin (0.02-0.09) ng/mL Assessment and Plan Plan: Assessment: 1. Acute kidney injury mostly prerenal secondary to cardiorenal syndrome. Renal function stable. UA benign. 2. Hypokalemia secondary to diuresis. 3. Chronic kidney disease stage III with baseline creatinine near 1.5 secondary to cardiorenal syndrome. 4. Volume overload. Improved with diuresis. 5. Insulin-dependent diabetes mellitus. 6. Acute on chronic systolic CHF with ejection fraction of 40-45%. Plan: Maintain Lasix drip for the next 24 hours - plan to transition to oral diuretics tomorrow. Potassium being replaced. Check magnesium level. Repeat electrolytes in the morning.
[2019-11-07 11:29] LABS: Glucose,Whole Blood 162 mg/dL (75-99)
[2019-11-07] MEDS: PANTOPRAZOLE 40 MG TABLET PO SCH (11:49)
--- NOTE | 2019-11-07 12:53 | P.PN ---
Subjective Maximo Castorena Patient is a 49-year-old gentleman seen by Dr. Randall History of persistent atrial fibrillation, coronary artery disease status post cardiac stenting Morbid obesity chronic renal insufficiency Chronic systolic heart failure On admission his BNP is elevated troponins are normal potassium was low and BUN and creatinine were elevated Dr. Randall treated him with Lasix with improvement in symptoms He was on a Lasix drip He was also ELIQUIS 2-D echo shows severe concentric LVH with ejection fraction 40% apical septum hypokinetic Twelve-lead ECG shows atrial fibrillation heart rate 100 beats a minute Patient feels well no chest discomfort On examination afebrile 98.3F Short of breath at rest pulse rate 80-100 beats a minute Blood pressure 106/70 and 92/71 mmHg Breath sounds are reduced bilaterally Lateral lower extremity edema Irregular rhythm heart rates up to 100 beats a minute Impression Acute and chronic CHF, systolic Ischemic cardiomyopathy Coronary disease status post coronary stenting Hyperkalemia, Chronic kidney disease Suggest Stop Lasix drip, BUN and creatinine had begun to rise Start by mouth Lasix 80 mg twice daily starting tomorrow Check potassium May consider adding spironolactone instead of metolazone We did note that he is on Midrin but he also has reduced systolic function Increase metoprolol to 50 mg 3 times a day Objective - Vital Signs Vital signs: Vital Signs Temp 98.3 F 11/07/19 08:00 Pulse 87 11/07/19 08:00 Resp 18 11/07/19 08:00 BP 92/71 11/07/19 08:00 Pulse Ox 99 11/07/19 08:00 Intake & Output 11/06/19 11/07/19 11/07/19 18:59 06:59 18:59 Intake Total 886.834 862 80 Output Total 2200 1675 700 Balance -1313.166 -813 -620 Weight 142.3 kg 138.4 kg Intake: IV 80 .9 80 Intake, IV Titration 184.834 Amount Furosemide 100 mg In 184.834 Sodium Chloride 0.9% 90 ml @ 5 MG/HR 5 mls/hr IV .Q20H [facility] Rx#:[id number] Oral [id number] [id number] Output: Urine 2200 1675 700 Other: Voiding Method Urinal Urinal # Voids 1 1 - Labs CBC & Chem 7: 11/07/19 07:01 11/07/19 07:01 Labs: Abnormal Lab Results - Last 24 Hours (Table) 11/06/19 11/06/19 11/06/19 Range/Units 03:40 11:43 16:16 WBC (3.8-10.6) k/uL RDW (11.5-15.5) % Neutrophils # (1.3-7.7) k/uL Sodium (137-145) mmol/L Potassium (3.5-5.1) mmol/L Chloride (98-107) mmol/L Carbon Dioxide (22-30) mmol/L BUN (9-20) mg/dL Creatinine (0.66-1.25) mg/dL Glucose (74-99) mg/dL POC Glucose (mg/dL) 172 H 131 H (75-99) mg/dL Procalcitonin 0.11 H (0.02-0.09) ng/mL 11/06/19 11/07/19 11/07/19 Range/Units 20:23 06:01 07:01 WBC (3.8-10.6) k/uL RDW (11.5-15.5) % Neutrophils # (1.3-7.7) k/uL Sodium 135 L (137-145) mmol/L Potassium 2.8 L (3.5-5.1) mmol/L Chloride 86 L (98-107) mmol/L Carbon Dioxide 38 H (22-30) mmol/L BUN 65 H (9-20) mg/dL Creatinine 1.83 H (0.66-1.25) mg/dL Glucose 103 H (74-99) mg/dL POC Glucose (mg/dL) 153 H 105 H (75-99) mg/dL Procalcitonin (0.02-0.09) ng/mL 11/07/19 11/07/19 Range/Units 07:01 11:28 WBC 11.1 H (3.8-10.6) k/uL RDW 17.3 H (11.5-15.5) % Neutrophils # 7.9 H (1.3-7.7) k/uL Sodium (137-145) mmol/L Potassium (3.5-5.1) mmol/L Chloride (98-107) mmol/L Carbon Dioxide (22-30) mmol/L BUN (9-20) mg/dL Creatinine (0.66-1.25) mg/dL Glucose (74-99) mg/dL POC Glucose (mg/dL) 162 H (75-99) mg/dL Procalcitonin (0.02-0.09) ng/mL
--- NOTE | 2019-11-07 12:58 | P.PN ---
Subjective Progress Note Date: 11/07/19 Principal diagnosis: Acute exacerbation of both chronic systolic and diastolic congestive heart failure 49-year-old male patient with multiple comorbid conditions including advanced COPD, with baseline FEV1 of 1.43 L or 35% of predicted consistent with stage III COPD, previous history of respiratory failure requiring prolonged mechanical ventilator support and placement of tracheostomy tube and subsequent removal, paroxysmal atrial fibrillation on Eliquis, hypothyroidism, morbid obesity, history of DVT, depression, hyperlipidemia, previous history of myocardial infarction, coronary arterial sclerosis, chronic kidney disease, unspecified, chronic venous stasis, chronic CHF with systolic and diastolic dysfunction and EF, previous history of colonic abscess status post bowel resection with placement of colostomy and subsequent reversal, and history of incisional hernia and fistula repairs, and MRSA infection in surgical wounds. Patient presented to the emergency department on 11/05/2019 for evaluation of worsening shortness of breath for 4 days, cough without phlegm production, body aches, weakness, patient denies any fever or chills. He states he was not able to yet up out of bed, he missed 4 days worth of his medications including his diuretics reports increasing swelling in his lower extremities. Did have some right-sided chest pain on admission, denied any palpitations, denied any nausea, vomiting or diarrhea. His chest x-ray showed increased pulmonary vasculature bilaterally with a fine reticular pattern, consistent with mild interstitial phase pulmonary edema and partial consolidative opacity in the right lower lung zone. EKG showed A. fib with a rate of 100 bpm, and ST and T-wave abnormality consideration of lateral ischemia. Initial blood work showed white blood cell count of 11.1, hemoglobin of 13.3, INR was 1.1, sodium was 129, potassium is 2.7, chloride was 80, CO2 is 36, B1 is 15 9, creatinine is 1.66, plasma lactic acid was 1.8, AST and ALT were within normal limits, alk phos was 127, troponins were less than 0.0122, proBNP was 8760. Afebrile, initially normotensive, hypotensive this morning with blood pressure of 87/53, he is satting 98% on 4 L. He was started on empiric antibiotics in the form of Rocephin, midodrine was added by nephrology, pro-calcitonin is pending, urinalysis has been ordered, sputum culture is uncollected. The patient is seen today 11/07/2019 in follow-up on the selective care unit. He is currently awake and alert in no acute distress. Resting fairly comfortably in bed. He is maintaining O2 saturations in the high 90s on 4 L/m per nasal cannula. Chest x-ray reveals improved aeration. He is afebrile. Hemodynamically stable. White count 11.1. Hemoglobin 13.8. Sodium 135. Potassium through 2.8. CO2 38. Creatinine 1.83. His Lasix drip was discontinued. Potassium is being replaced. He is on antibiotics in form of ceftriaxone. Anticoagulated with Eliquis. Objective - Vital Signs Vital signs: Vital Signs Temp 98.3 F 11/07/19 12:00 Pulse 95 11/07/19 12:00 Resp 18 11/07/19 12:00 BP 95/60 11/07/19 12:00 Pulse Ox 99 11/07/19 08:00 Intake & Output 11/06/19 11/07/19 11/07/19 18:59 06:59 18:59 Intake Total 886.834 862 280 Output Total 2200 1675 700 Balance -1313.166 -813 -420 Weight 142.3 kg 138.4 kg Intake: IV 80 .9 80 Intake, IV Titration 184.834 Amount Furosemide 100 mg In 184.834 Sodium Chloride 0.9% 90 ml @ 5 MG/HR 5 mls/hr IV .Q20H [facility] Rx#:[id number] Oral 702 862 200 Output: Urine 2200 1675 700 Other: Voiding Method Urinal Urinal # Voids 1 1 - Exam GENERAL EXAM: Alert, very pleasant, morbidly obese 49-year-old male patient, on 4 L of oxygen the pulse ox of 99%, comfortable in no apparent distress. HEAD: Normocephalic/atraumatic. EYES: Normal reaction of pupils, equal size. Conjunctiva pink, sclera white. NOSE: Clear with pink turbinates. THROAT: No erythema or exudates. NECK: No masses, no JVD, no thyroid enlargement, no adenopathy. CHEST: No chest wall deformity. Symmetrical expansion. LUNGS: Equal air entry with crackles in the bilateral posterior bases. CVS: Irregular rate and rhythm, normal S1 and S2, no gallops, no murmurs, no rubs ABDOMEN: Soft, nontender. No hepatosplenomegaly, normal bowel sounds, no guard ing or rigidity. EXTREMITIES: No clubbing, 1+ lower extremity edema, with chronic venous stasis changes involving the lower extremities, no cyanosis, 2+ pulses and upper and lower extremities. MUSCULOSKELETAL: Muscle strength and tone normal. SPINE: No scoliosis or deformity SKIN: No rashes CENTRAL NERVOUS SYSTEM: No focal deficits, tone is normal in all 4 extremities. PSYCHIATRIC: Alert and oriented -3. Appropriate affect. Intact judgment and insight. - Labs CBC & Chem 7: 11/07/19 07:01 11/07/19 07:01 Labs: Abnormal Lab Results - Last 24 Hours (Table) 11/06/19 11/06/19 11/06/19 Range/Units 03:40 16:16 20:23 WBC (3.8-10.6) k/uL RDW (11.5-15.5) % Neutrophils # (1.3-7.7) k/uL Sodium (137-145) mmol/L Potassium (3.5-5.1) mmol/L Chloride (98-107) mmol/L Carbon Dioxide (22-30) mmol/L BUN (9-20) mg/dL Creatinine (0.66-1.25) mg/dL Glucose (74-99) mg/dL POC Glucose (mg/dL) 131 H 153 H (75-99) mg/dL Procalcitonin 0.11 H (0.02-0.09) ng/mL 11/07/19 11/07/19 11/07/19 Range/Units 06:01 07:01 07:01 WBC 11.1 H (3.8-10.6) k/uL RDW 17.3 H (11.5-15.5) % Neutrophils # 7.9 H (1.3-7.7) k/uL Sodium 135 L (137-145) mmol/L Potassium 2.8 L (3.5-5.1) mmol/L Chloride 86 L (98-107) mmol/L Carbon Dioxide 38 H (22-30) mmol/L BUN 65 H (9-20) mg/dL Creatinine 1.83 H (0.66-1.25) mg/dL Glucose 103 H (74-99) mg/dL POC Glucose (mg/dL) 105 H (75-99) mg/dL Procalcitonin (0.02-0.09) ng/mL 11/07/19 Range/Units 11:28 WBC (3.8-10.6) k/uL RDW (11.5-15.5) % Neutrophils # (1.3-7.7) k/uL Sodium (137-145) mmol/L Potassium (3.5-5.1) mmol/L Chloride (98-107) mmol/L Carbon Dioxide (22-30) mmol/L BUN (9-20) mg/dL Creatinine (0.66-1.25) mg/dL Glucose (74-99) mg/dL POC Glucose (mg/dL) 162 H (75-99) mg/dL Procalcitonin (0.02-0.09) ng/mL Assessment and Plan Assessment: #1. Acute exacerbation of chronic CHF with systolic and diastolic dysfunction, and echocardiogram showed EF of 40-45%, mild mitral regurg, mild tricuspid regurg, and mild pulmonary hypertension with right-sided pressures of 41.6 mmHg #2. Weakness, body aches, shortness of breath and cough, rule out COVID 19 infection #3. Hypokalemia, related to dehydration, diuretics and poor oral intake #4. Chronic persistent atrial fibrillation on Eliquis #5. Right chest discomfort, 2 sets of troponins were negative #6. Chronic kidney disease stage III #7. Advanced COPD, stage III, with baseline FEV1 of 1.43 L or 35% of predicted, FVC of 2.06 L or 40% of predicted, with no significant response after bronchodilators #8. Chronic hypoxic respiratory failure, multifactorial, related to history of COPD and chronic congestive heart failure and obstructive sleep apnea #9. History of obstructive sleep apnea not on CPAP therapy #10. Previous history of respiratory failure requiring prolonged mechanical ventilator support with placement of tracheostomy and subsequent liberation from mechanical ventilator and decannulation #11. Previous history of colonic abscess, status post bowel resection with colostomy placement and reversal, with subsequent hernia repairs, MRSA infection #12. Hypothyroidism #13. Morbid obesity #14. Previous history of DVT on Eliquis #15. Depressive disorder #16. Previous history of myocardial infarction #17. Renal artery disease with previous stenting #18. Gait dysfunction, patient is mostly wheelchair bound, but is able to get in a wheelchair by himself Plan: The patient was seen and evaluated by Dr. Adams Chest x-ray and labs reviewed He is improved today compared to yesterday Continue the current treatment plan Replace electrolytes Titrate down the FiO2 as tolerated Educated regarding the importance of medication compliance We will continue to follow and make further recommendations based on his clinical status I, the cosigning physician, performed a history & physical examination of the patient. Lungs sounds with crackles in the bilateral posterior bases. Maintaining good O2 saturations in the 90s on 4 L/m per nasal cannula. I discussed the assessment and plan of care with my nurse practitioner, Bailey Mckeon. I attest to the above note as dictated by her.
[2019-11-07] MEDS: FUROSEMIDE 100 MG in SODIUM CHLORIDE 0.9% 90 ML IV SCH (13:26)
[2019-11-07 16:54] LABS: Glucose,Whole Blood 131 mg/dL (75-99)
[2019-11-07] MEDS ORDERED: NITROGLYCERIN SL TABS 0.4 MG TAB SUBLINGUAL PRN (17:18)
[2019-11-07] MEDS: LACTULOSE 20 GM/30 ML CUP PO PRN (18:31)
--- NOTE | 2019-11-07 20:25 | PN ---
PROGRESS NOTE DATE OF SERVICE: 11/07/2019 This 49-year-old gentleman who was admitted with CHF acute exacerbation with acute on chronic exacerbation of the chronic diastolic and systolic dysfunction is being closely monitored. The patient also had suspected pneumonia. COVID-19 has also been ruled out at this time. The patient also has hyponatremia and hyperkalemia. Patient is on Lasix drip. The patient is also evaluated by Nephrology. Creatinine is 1.83 at this time. PAST MEDICAL HISTORY: Reviewed. REVIEW OF SYSTEMS: CARDIOVASCULAR SYSTEM: As mentioned earlier. RESPIRATORY: As mentioned earlier. Occasional cough. GI: No nausea. : As mentioned earlier. NERVOUS SYSTEM: Generalized weakness. CURRENT MEDICATIONS: 1. Tylenol p.r.n. 2. Maalox. 3. Zyloprim. 4. Eliquis. 5. Lipitor. 7. Cepacol. 8. Rocephin 1 g IV daily. 9. Lasix drip at 5 mg/hour. 10.NovoLog scale. 11.Levemir. 12.Cephulac. 13.Synthroid. 14.Milk of magnesia. 15.Melatonin. 16.Lopressor. 17.Protamine. 18.Zofran. 19.Protonix. 20.Zoloft. 21.Ultram. Doses reviewed. PHYSICAL EXAM: Patient is alert, oriented x3. Pulse 95, blood pressure 90/60, respiration 18, temperature 98.3, pulse ox 98% on 4 L HEENT: Conjunctivae normal. Oral mucosa moist. NECK: No jugular venous distention. No lymph node enlargement. CARDIOVASCULAR: S1, S2. RESPIRATORY: Diminished breath sounds at the bases. A few scattered rhonchi and crackles. ABDOMEN: Soft, nontender. LEGS: Bilateral leg edema. NERVOUS SYSTEM: Diffusely weak. LABS: WBC 7.1, sodium 132, potassium 2.8, creatinine is 1.83. ASSESSMENT: 1. Congestive heart failure acute exacerbation with acute on chronic systolic and diastolic dysfunction, ejection fraction 40-45% with mitral regurgitation, mild tricuspid regurgitation, mild pulmonary hypertension. 2. Suspected gram-negative pneumonia, present on admission. 3. Severe hypokalemia. 4. Hyponatremia from diuresis on Lasix drip. 5. Persistent atrial fibrillation. 6. Chronic obstructive pulmonary disease. 7. Chronic deep venous thrombosis, chronically on anticoagulation. 8. Hyperlipidemia. 9. Hypertension. 10.Chronic kidney, stage 3 from diabetic nephropathy and hypertensive nephrosclerosis. 11.Obstructive sleep apnea. 12.Hypothyroidism. 13.Peripheral artery disease. 14.Multiple abdominal wall hernia surgery. 15.Chronic diverticulosis. 16.Morbid obesity, BMI of 44.6. 17.Gait dysfunction. 18.FULL CODE. RECOMMENDATIONS AND DISCUSSION: In this 49-year-old gentleman who presented with multiple complex medical issues, we will monitor the patient closely, continue the current medications, continue symptomatic treatment. Otherwise, continue with Lasix drip. Repeat labs. Monitor CBC, BMP, sputum culture. The cultures are negative so far. I would also recommend PT/OT evaluation and evaluate the home situation as well and possible ECF rehab. The home medication reconciliation was also done. Once again, the prognosis is extremely guarded. Further recommendations to follow. EUNICE / NORBERT: [id number] / DESIRE
[2019-11-07 20:40] LABS: Glucose,Whole Blood 171 mg/dL (75-99)
[2019-11-07] MEDS: ATORVASTATIN 80 MG TAB PO SCH (20:57)
[2019-11-07] MEDS: INSULIN DETEMIR (LEVEMIR) 100 UNIT/ML SYR SQ SCH (20:58)
[2019-11-08 06:13] LABS: Calcium 9.1 mg/dL (8.4-10.2); Magnesium 1.9 mg/dL (1.6-2.3); Potassium 2.8 mmol/L (3.5-5.1)
[2019-11-08 06:15] LABS: Glucose,Whole Blood 87 mg/dL (75-99)
[2019-11-08] MEDS: INSULIN ASPART (NovoLOG) 100 UNIT/ML VIAL SQ SCH ×4 (06:16→22:26)
[2019-11-08] MEDS: PANTOPRAZOLE 40 MG TABLET PO SCH (06:59)
[2019-11-08] MEDS: LEVOTHYROXINE 137 MCG TAB PO SCH (06:59)
[2019-11-08] MEDS: MIDODRINE 5 MG TAB PO SCH ×2 (06:59→17:34)
[2019-11-08] MEDS: METOPROLOL TARTRATE 50 MG TAB PO SCH ×3 (07:42→22:11)
[2019-11-08] MEDS: POTASSIUM CHLORIDE ER 20 MEQ TAB.ER PO SCH ×4 (07:42→22:10)
[2019-11-08] MEDS: ALLOPURINOL 100 MG TAB PO SCH (07:42)
[2019-11-08] MEDS: APIXABAN 5 MG TAB PO SCH ×2 (07:42→22:09)
[2019-11-08] MEDS: traMADol 50 MG TAB PO SCH ×2 (07:42→22:10)
[2019-11-08] MEDS: SERTRALINE 100 MG TAB PO SCH (07:42)
[2019-11-08] MEDS: FUROSEMIDE 100 MG in SODIUM CHLORIDE 0.9% 90 ML IV SCH (09:00)
[2019-11-08] MEDS ORDERED: METOPROLOL SUCCINATE (ER) 50 MG TAB.ER.24H PO SCH (09:00)
[2019-11-08] MEDS: BACITRACIN 500 UNIT/GM OINT 28.4 GM TUBE TOPICAL SCH ×2 (09:55→22:27)
[2019-11-08] MEDS ORDERED: MAG HYDROX/AL HYDROX/SIMETH 30 ML, HYOSCYAMINE ELIXIR 10 ML, LIDOCAINE VISCOUS 2% 10 ML PO ONE ×3 (12:15)
[2019-11-08 12:30] LABS: Glucose,Whole Blood 112 mg/dL (75-99)
--- NOTE | 2019-11-08 12:52 | P.PN ---
Subjective Progress Note Date: 11/08/19 Principal diagnosis: Acute exacerbation of both chronic systolic and diastolic congestive heart failure 49-year-old male patient with multiple comorbid conditions including advanced COPD, with baseline FEV1 of 1.43 L or 35% of predicted consistent with stage III COPD, previous history of respiratory failure requiring prolonged mechanical ventilator support and placement of tracheostomy tube and subsequent removal, paroxysmal atrial fibrillation on Eliquis, hypothyroidism, morbid obesity, history of DVT, depression, hyperlipidemia, previous history of myocardial infarction, coronary arterial sclerosis, chronic kidney disease, unspecified, chronic venous stasis, chronic CHF with systolic and diastolic dysfunction and EF, previous history of colonic abscess status post bowel resection with placement of colostomy and subsequent reversal, and history of incisional hernia and fistula repairs, and MRSA infection in surgical wounds. Patient presented to the emergency department on 11/05/2019 for evaluation of worsening shortness of breath for 4 days, cough without phlegm production, body aches, weakness, patient denies any fever or chills. He states he was not able to yet up out of bed, he missed 4 days worth of his medications including his diuretics reports increasing swelling in his lower extremities. Did have some right-sided chest pain on admission, denied any palpitations, denied any nausea, vomiting or diarrhea. His chest x-ray showed increased pulmonary vasculature bilaterally with a fine reticular pattern, consistent with mild interstitial phase pulmonary edema and partial consolidative opacity in the right lower lung zone. EKG showed A. fib with a rate of 100 bpm, and ST and T-wave abnormality consideration of lateral ischemia. Initial blood work showed white blood cell count of 11.1, hemoglobin of 13.3, INR was 1.1, sodium was 129, potassium is 2.7, chloride was 80, CO2 is 36, B1 is 15 9, creatinine is 1.66, plasma lactic acid was 1.8, AST and ALT were within normal limits, alk phos was 127, troponins were less than 0.0122, proBNP was 8760. Afebrile, initially normotensive, hypotensive this morning with blood pressure of 87/53, he is satting 98% on 4 L. He was started on empiric antibiotics in the form of Rocephin, midodrine was added by nephrology, pro-calcitonin is pending, urinalysis has been ordered, sputum culture is uncollected. The patient is seen today 11/07/2019 in follow-up on the selective care unit. He is currently awake and alert in no acute distress. Resting fairly comfortably in bed. He is maintaining O2 saturations in the high 90s on 4 L/m per nasal cannula. Chest x-ray reveals improved aeration. He is afebrile. Hemodynamically stable. White count 11.1. Hemoglobin 13.8. Sodium 135. Potassium through 2.8. CO2 38. Creatinine 1.83. His Lasix drip was discontinued. Potassium is being replaced. He is on antibiotics in form of ceftriaxone. Anticoagulated with Eliquis. The patient is seen today 11/08/2019 in follow-up on the selective care unit. He is awake and alert in no acute distress. He is complaining of fatigue and weakness. His potassium is found to be low and being replaced currently. Otherwise no worsening shortness of breath cough or congestion. He is maintaining good O2 saturations in the mid to upper 90s on 4 L/m per nasal cannula. His been afebrile. Sodium 135. Potassium 2.8. Chloride 87. Bicarb 36. Creatinine 1.94. He remains on a Lasix drip at 5 mg an hour. Antibiotics the form of ceftriaxone. Objective - Vital Signs Vital signs: Vital Signs Temp 97.9 F 11/08/19 08:00 Pulse 95 11/08/19 08:00 Resp 18 11/08/19 08:00 BP 89/59 11/08/19 08:00 Pulse Ox 97 11/08/19 08:00 Intake & Output 11/07/19 11/08/19 11/08/19 18:59 06:59 18:59 Intake Total 550 237 167.833 Output Total 1820 600 300 Balance -1270 -363 -132.167 Weight 138.2 kg Intake: IV 120 40 .9 120 40 Intake, IV Titration 97.833 Amount Furosemide 100 mg In 97.833 Sodium Chloride 0.9% 90 ml @ 5 MG/HR 5 mls/hr IV .Q20H [facility] Rx#:[id number] Oral 430 237 30 Output: Urine 1820 600 300 Other: Voiding Method Urinal # Voids 1 1 - Exam GENERAL EXAM: Alert, very pleasant, morbidly obese 49-year-old male patient, on 4 L of oxygen the pulse ox of 97%, comfortable in no apparent distress. HEAD: Normocephalic/atraumatic. EYES: Normal reaction of pupils, equal size. Conjunctiva pink, sclera white. NOSE: Clear with pink turbinates. THROAT: No erythema or exudates. NECK: No masses, no JVD, no thyroid enlargement, no adenopathy. CHEST: No chest wall deformity. Symmetrical expansion. LUNGS: Equal air entry with crackles in the bilateral posterior bases. CVS: Irregular rate and rhythm, normal S1 and S2, no gallops, no murmurs, no rubs ABDOMEN: Soft, nontender. No hepatosplenomegaly, normal bowel sounds, no guarding or rigidity. EXTREMITIES: No clubbing, 1+ lower extremity edema, with chronic venous stasis changes involving the lower extremities, no cyanosis, 2+ pulses and upper and lower extremities. MUSCULOSKELETAL: Muscle strength and tone normal. SPINE: No scoliosis or deformity SKIN: No rashes CENTRAL NERVOUS SYSTEM: No focal deficits, tone is normal in all 4 extremities. PSYCHIATRIC: Alert and oriented -3. Appropriate affect. Intact judgment and insight. - Labs CBC & Chem 7: 11/07/19 07:01 11/08/19 05:26 Labs: Abnormal Lab Results - Last 24 Hours (Table) 11/07/19 11/07/19 11/08/19 Range/Units 16:53 20:38 05:26 Sodium 135 L (137-145) mmol/L Potassium 2.8 L (3.5-5.1) mmol/L Chloride 87 L (98-107) mmol/L Carbon Dioxide 36 H (22-30) mmol/L BUN 70 H (9-20) mg/dL Creatinine 1.94 H (0.66-1.25) mg/dL POC Glucose (mg/dL) 131 H 171 H (75-99) mg/dL 11/08/19 Range/Units 12:29 Sodium (137-145) mmol/L Potassium (3.5-5.1) mmol/L Chloride (98-107) mmol/L Carbon Dioxide (22-30) mmol/L BUN (9-20) mg/dL Creatinine (0.66-1.25) mg/dL POC Glucose (mg/dL) 112 H (75-99) mg/dL Assessment and Plan Assessment: #1. Acute exacerbation of chronic CHF with systolic and diastolic dysfunction, and echocardiogram showed EF of 40-45%, mild mitral regurg, mild tricuspid regurg, and mild pulmonary hypertension with right-sided pressures of 41.6 mmHg #2. Weakness, body aches, shortness of breath and cough, rule out COVID 19 infection #3. Hypokalemia, related to dehydration, diuretics and poor oral intake #4. Chronic persistent atrial fibrillation on Eliquis #5. Right chest discomfort, 2 sets of troponins were negative #6. Chronic kidney disease stage III #7. Advanced COPD, stage III, with baseline FEV1 of 1.43 L or 35% of predicted, FVC of 2.06 L or 40% of predicted, with no significant response after bronchodilators #8. Chronic hypoxic respiratory failure, multifactorial, related to history of COPD and chronic congestive heart failure and obstructive sleep apnea #9. History of obstructive sleep apnea not on CPAP therapy #10. Previous history of respiratory failure requiring prolonged mechanical ventilator support with placement of tracheostomy and subsequent liberation from mechanical ventilator and decannulation #11. Previous history of colonic abscess, status post bowel resection with colostomy placement and reversal, with subsequent hernia repairs, MRSA infection #12. Hypothyroidism #13. Morbid obesity #14. Previous history of DVT on Eliquis #15. Depressive disorder #16. Previous history of myocardial infarction #17. Renal artery disease with previous stenting #18. Gait dysfunction, patient is mostly wheelchair bound, but is able to get in a wheelchair by himself Plan: The patient was seen and evaluated by Dr. Adams Continue the current treatment plan Replace electrolytes Diuretics per nephrology/cardiology Titrate down the FiO2 as tolerated Educated regarding the importance of medication compliance We will continue to follow and make further recommendations based on his clinical status I, the cosigning physician, performed a history & physical examination of the patient. Lungs sounds with crackles in the bilateral posterior bases. Maintaining good O2 saturations in the 90s on 4 L/m per nasal cannula. I discussed the assessment and plan of care with my nurse practitioner, Bailey Mckeon. I attest to the above note as dictated by her.
--- NOTE | 2019-11-08 13:15 | P.PN ---
Subjective Patient is seen in follow-up for acute kidney injury on chronic kidney disease. Renal function is stable. Patient is diuresing well with Lasix drip. Edema improved. Denies chest pain or shortness of breath. No active complaints at this time. Vital signs are stable. General: The patient appeared well nourished and normally developed. HEENT: Head exam is unremarkable. Neck is without jugular venous distension. LUNGS: Lungs are clear to auscultation and percussion. Breath sounds decreased. HEART: Rate and Rhythm are regular. ABDOMEN: Abdominal exam reveals normal bowel sounds. Non-tender and non- distended. Obese. EXTREMITITES: Trace edema. Chronic changes noted. Objective - Vital Signs Vital signs: Vital Signs Temp 97.9 F 11/08/19 08:00 Pulse 95 11/08/19 08:00 Resp 18 11/08/19 08:00 BP 89/59 11/08/19 08:00 Pulse Ox 97 11/08/19 08:00 Intake & Output 11/07/19 11/08/19 11/08/19 18:59 06:59 18:59 Intake Total 550 237 167.833 Output Total 1820 600 300 Balance -1270 -363 -132.167 Weight 138.2 kg Intake: IV 120 40 .9 120 40 Intake, IV Titration 97.833 Amount Furosemide 100 mg In 97.833 Sodium Chloride 0.9% 90 ml @ 5 MG/HR 5 mls/hr IV .Q20H [facility] Rx#:[id number] Oral 430 237 30 Output: Urine 1820 600 300 Other: Voiding Method Urinal # Voids 1 1 - Labs CBC & Chem 7: 11/07/19 07:01 11/08/19 05:26 Labs: Abnormal Lab Results - Last 24 Hours (Table) 11/07/19 11/07/19 11/08/19 Range/Units 16:53 20:38 05:26 Sodium 135 L (137-145) mmol/L Potassium 2.8 L (3.5-5.1) mmol/L Chloride 87 L (98-107) mmol/L Carbon Dioxide 36 H (22-30) mmol/L BUN 70 H (9-20) mg/dL Creatinine 1.94 H (0.66-1.25) mg/dL POC Glucose (mg/dL) 131 H 171 H (75-99) mg/dL 11/08/19 Range/Units 12:29 Sodium (137-145) mmol/L Potassium (3.5-5.1) mmol/L Chloride (98-107) mmol/L Carbon Dioxide (22-30) mmol/L BUN (9-20) mg/dL Creatinine (0.66-1.25) mg/dL POC Glucose (mg/dL) 112 H (75-99) mg/dL Assessment and Plan Plan: Assessment: 1. Acute kidney injury mostly prerenal secondary to cardiorenal syndrome. Renal function stable. UA benign. 2. Hypokalemia secondary to diuresis. Magnesium normal. 3. Chronic kidney disease stage III with baseline creatinine near 1.5 secondary to cardiorenal syndrome. 4. Volume overload. Improved with diuresis. 5. Insulin-dependent diabetes mellitus. 6. Acute on chronic systolic CHF with ejection fraction of 40-45%. Plan: Discontinue Lasix drip. Start IV Lasix 40 mg twice daily. Potassium being replaced - I will give an additional 40 mEq today. Repeat electrolytes in the morning.
[2019-11-08] MEDS ORDERED: POTASSIUM CHLORIDE ER 20 MEQ TAB.ER PO STA (13:34)
[2019-11-08 17:06] LABS: Glucose,Whole Blood 137 mg/dL (75-99)
[2019-11-08] MEDS: LACTULOSE 20 GM/30 ML CUP PO PRN (17:34)
[2019-11-08 19:12] LABS: Potassium 3.9 mmol/L (3.5-5.1)
[2019-11-08 20:36] LABS: Glucose,Whole Blood 149 mg/dL (75-99)
--- NOTE | 2019-11-08 21:11 | PN ---
PROGRESS NOTE DATE OF SERVICE: 11/08/2019 DATE OF SERVICE: This 49-year-old gentleman who was admitted with congestive heart failure acute exacerbation, also had possibly gram-negative pneumonia. The patient is on Lasix. The most recent chest x-ray which was done yesterday which was reviewed personally by me showed some CHF. The potassium and sodium are also low. Potassium is 2.8, being replaced. His lytes will be checked this afternoon. Patient being closely monitored. Multiple consultants are following the patient closely. PAST MEDICAL HISTORY: Reviewed. REVIEW OF SYSTEMS: CARDIOVASCULAR SYSTEM: No chest. RESPIRATORY: As mentioned earlier. GI: As mentioned earlier. : No dysuria or retention. NERVOUS SYSTEM: No numbness or weakness. CURRENT MEDICATIONS: 1. Tylenol p.r.n. 2. Maalox 15 mL p.o. q.6h p.r.n. 3. Zyloprim 100 mg. 4. Eliquis 5 mg p.o. b.i.d. 5. Lipitor 80 mg q.h.s. 6. Bacitracin. 7. Cepacol. 8. Tums. 9. Rocephin 1 g daily. 10.Lasix 40 mg IV b.i.d. 11.NovoLog. 12.Levemir 40 units subcu q.h.s. 13.Cephulac 20 g IV daily. 14.Synthroid. 15.Milk of magnesia. 16.Melatonin. 17.Lopressor. 18.Primatene. 19.Narcan. 20.Nitrostat. 21.Zofran. 22.Protonix. 23.K-Dur. 24.Zoloft. 25.Ultram. PHYSICAL EXAM: Patient is alert, oriented x3. Pulse is 100, blood pressure is 95/65, respiration 18, temperature 98.2, pulse ox 98% on 4 L. HEENT: Conjunctivae normal. Oral mucosa moist. NECK: No jugular venous distention. No lymph node enlargement. CARDIOVASCULAR: S1, S2. RESPIRATORY: Diminished breath sounds at the bases. Bilateral scattered rhonchi and crackles. ABDOMEN: Soft, obese, nontender. LEGS: Bilateral leg edema. NERVOUS SYSTEM: Diffusely weak. LABS: Sodium is 135, potassium 2.8. Otherwise WBC 11.1. ASSESSMENT: 1. Congestive heart failure acute exacerbation with acute on chronic systolic dysfunction, ejection fraction 45-50% with mitral regurgitation, mild tricuspid regurgitation as well as mild pulmonary hypertension. 2. Suspect gram-negative pneumonia, present on admission. 3. Severe hypokalemia. 4. Hyponatremia from diuresis and Lasix drip. 5. Persistent atrial fibrillation. 6. Chronic obstructive pulmonary disease. 7. Chronic deep venous thrombosis, chronically on anticoagulation. 8. Hyperlipidemia. 9. Hypertension. 10.Chronic kidney disease, stage 3 from diabetic nephropathy and hypertensive nephrosclerosis. 11.Obstructive sleep apnea. 12.Hypothyroidism. 13.History of peripheral artery disease. 14.Multiple abdominal wall hernia surgery. 15.Chronic colonic diverticulosis. 16.Morbid obesity with body mass index of 44.6. 17.Gait dysfunction. 18.FULL CODE. RECOMMENDATIONS AND DISCUSSION: Recommend to continue current medications, continue to monitor, symptomatic treatment. Otherwise, at this time I would recommend supplement potassium, lytes in the evening. Continue with Lasix. The patient will follow closely with multiple consultants. Currently the patient is on 40 mg IV twice daily Lasix and continue with empiric antibiotics. Guarded prognosis. Further recommendations to follow. MMODL / IJN: [id number] /
[2019-11-08] MEDS: ATORVASTATIN 80 MG TAB PO SCH (22:09)
[2019-11-08] MEDS: FUROSEMIDE 10 MG/ML 4 ML VIAL IV SCH (22:12)
[2019-11-08] MEDS: INSULIN DETEMIR (LEVEMIR) 100 UNIT/ML SYR SQ SCH (22:26)
[2019-11-09] MEDS ORDERED: POTASSIUM CHLORIDE ER 20 MEQ TAB.ER PO STA ×2 (03:36→12:34)
[2019-11-09] MEDS: LEVOTHYROXINE 137 MCG TAB PO SCH (05:53)
[2019-11-09 06:12] LABS: Glucose,Whole Blood 135 mg/dL (75-99)
[2019-11-09] MEDS: PANTOPRAZOLE 40 MG TABLET PO SCH (06:36)
[2019-11-09] MEDS: INSULIN ASPART (NovoLOG) 100 UNIT/ML VIAL SQ SCH ×4 (06:36→21:48)
[2019-11-09] MEDS: MIDODRINE 5 MG TAB PO SCH ×2 (06:36→18:00)
[2019-11-09 06:59] LABS: Calcium 9.1 mg/dL (8.4-10.2); Magnesium 2.2 mg/dL (1.6-2.3); Potassium 3.5 mmol/L (3.5-5.1)
[2019-11-09] MEDS: FUROSEMIDE 10 MG/ML 4 ML VIAL IV SCH ×2 (09:05→21:49)
[2019-11-09] MEDS: METOPROLOL TARTRATE 50 MG TAB PO SCH ×3 (09:05→21:48)
[2019-11-09] MEDS: POTASSIUM CHLORIDE ER 20 MEQ TAB.ER PO SCH ×2 (09:05→21:48)
[2019-11-09] MEDS: APIXABAN 5 MG TAB PO SCH ×2 (09:05→21:48)
[2019-11-09] MEDS: traMADol 50 MG TAB PO SCH ×2 (09:05→21:47)
[2019-11-09] MEDS: SERTRALINE 100 MG TAB PO SCH (09:05)
[2019-11-09] MEDS: ALLOPURINOL 100 MG TAB PO SCH (09:06)
[2019-11-09] MEDS: BACITRACIN 500 UNIT/GM OINT 28.4 GM TUBE TOPICAL SCH ×2 (09:07→21:49)
--- NOTE | 2019-11-09 12:08 | P.PN ---
Subjective History of acute on chronic CHF systolic, underlying ischemic cardiomyopathy, coronary artery disease status post cardiac stenting and chronic kidney disease Left ventricular ejection fraction 40% Yesterday he was on a Lasix drip with a BUN and creatinine that were rising The metoprolol dose was increased to 50 mg 3 times a day Sodium 135 potassium 2.8 BUN higher creatinine 1.94 Further increase in BUN and creatinine Low blood pressure Somewhat tachycardic Blood pressure 101/64 and 89/59 mmHg Afebrile, pulse rate in the 90s, irregular Patient complains of heartburn and is not feeling good today No crackles no rhonchi over the lung [place] Heart sounds irregular somewhat tachycardic Chronic changes trophic changes in the legs No JVD Mild tenderness over the abdomen but diffuse mostly in the lower half Impression Acute and chronic congestive heart failure with systolic LV dysfunction Rising BUN and creatinine Hypokalemia Persistent atrial fibrillation with heart rates around 100 Suggest I think it's time to switch to oral diuretics and add spironolactone too Twelve-lead ECG today Objective - Vital Signs Vital signs: Vital Signs Temp 97.9 F 11/08/19 08:00 Pulse 95 11/08/19 08:00 Resp 18 11/08/19 08:00 BP 89/59 11/08/19 08:00 Pulse Ox 97 11/08/19 08:00 Intake & Output 11/07/19 11/08/19 11/08/19 18:59 06:59 18:59 Intake Total 550 237 167.833 Output Total 1820 600 300 Balance -1270 -363 -132.167 Weight 138.2 kg Intake: IV 120 40 .9 120 40 Intake, IV Titration 97.833 Amount Furosemide 100 mg In 97.833 Sodium Chloride 0.9% 90 ml @ 5 MG/HR 5 mls/hr IV .Q20H [facility] Rx#:[id number] Oral 430 237 30 Output: Urine 1820 600 300 Other: Voiding Method Urinal # Voids 1 1 - Labs CBC & Chem 7: 11/07/19 07:01 11/08/19 05:26 Labs: Abnormal Lab Results - Last 24 Hours (Table) 11/07/19 11/07/19 11/08/19 Range/Units 16:53 20:38 05:26 Sodium 135 L (137-145) mmol/L Potassium 2.8 L (3.5-5.1) mmol/L Chloride 87 L (98-107) mmol/L Carbon Dioxide 36 H (22-30) mmol/L BUN 70 H (9-20) mg/dL Creatinine 1.94 H (0.66-1.25) mg/dL POC Glucose (mg/dL) 131 H 171 H (75-99) mg/dL
--- NOTE | 2019-11-09 12:14 | P.PN ---
Subjective Lying completely flat in bed looks comfortable and wants to go home Short of breath only with exertion Blood pressure 84/57 and 97/60 mmHg Pulse rate in the 90s afebrile Lung sounds no rhonchi no crackles Diminished breath sounds Heart sounds irregular and tachycardic no murmurs Trace edema Sodium 135 potassium 3.5 BUN further increase to 73 and creatinine further increased to 2.09 Impression Severe left frontal hypertrophy with reduced LV systolic function of 40-45% with apical hypokinesis Chronic kidney disease Low blood pressure A. fib rates are between 90-100 despite metoprolol He is on midodrine Suggest Stop IV Lasix and switch to Lasix 80 mg twice daily May add metolazone TSH Outpatient reevaluation of rate control of atrial fibrillation and thereafter we will recommend alternative treatments if his rates are poorly controlled Objective - Vital Signs Vital signs: Vital Signs Temp 97.0 F L 11/09/19 08:00 Pulse 92 11/09/19 08:00 Resp 16 11/09/19 04:00 BP 97/60 11/09/19 08:00 Pulse Ox 97 11/09/19 08:00 Intake & Output 11/08/19 11/09/19 11/09/19 18:59 06:59 18:59 Intake Total 1091.833 10 Output Total 1925 1550 Balance -833.167 -1550 10 Weight 137.7 kg Intake: IV 40 10 .9 40 10 Intake, IV Titration 97.833 Amount Furosemide 100 mg In 97.833 Sodium Chloride 0.9% 90 ml @ 5 MG/HR 5 mls/hr IV .Q20H [facility] Rx#:[id number] Oral 954 Output: Urine 1925 1550 Other: # Voids 1 # Bowel Movements 0 - Labs CBC & Chem 7: 11/07/19 07:01 11/09/19 05:47 Labs: Abnormal Lab Results - Last 24 Hours (Table) 11/08/19 11/08/19 11/08/19 Range/Units 12:29 17:04 18:27 Sodium 135 L (137-145) mmol/L Chloride 86 L (98-107) mmol/L Carbon Dioxide 39 H (22-30) mmol/L BUN (9-20) mg/dL Creatinine (0.66-1.25) mg/dL Glucose (74-99) mg/dL POC Glucose (mg/dL) 112 H 137 H (75-99) mg/dL 11/08/19 11/09/19 11/09/19 Range/Units 20:24 05:47 06:11 Sodium 135 L (137-145) mmol/L Chloride 88 L (98-107) mmol/L Carbon Dioxide 36 H (22-30) mmol/L BUN 73 H (9-20) mg/dL Creatinine 2.09 H (0.66-1.25) mg/dL Glucose 106 H (74-99) mg/dL POC Glucose (mg/dL) 149 H 135 H (75-99) mg/dL
[2019-11-09 12:23] LABS: Glucose,Whole Blood 119 mg/dL (75-99)
[2019-11-09] MEDS: LACTULOSE 20 GM/30 ML CUP PO SCH ×3 (12:47→21:49)
--- NOTE | 2019-11-09 12:51 | P.PN ---
Subjective Patient is seen in follow-up for acute kidney injury on chronic kidney disease. Renal function is a little worse which is due to diuresis. Currently maintained on Lasix 40 mg IV twice daily. Edema improved. Denies chest pain or shortness of breath. Complains of constipation. Vital signs are stable. General: The patient appeared well nourished and normally developed. HEENT: Head exam is unremarkable. Neck is without jugular venous distension. LUNGS: Lungs are clear to auscultation and percussion. Breath sounds decreased. HEART: Rate and Rhythm are regular. ABDOMEN: Abdominal exam reveals normal bowel sounds. Non-tender and non-disten ded. Obese. EXTREMITITES: Trace edema. Chronic changes noted. Objective - Vital Signs Vital signs: Vital Signs Temp 97.0 F L 11/09/19 08:00 Pulse 92 11/09/19 08:00 Resp 16 11/09/19 04:00 BP 97/60 11/09/19 08:00 Pulse Ox 97 11/09/19 08:00 Intake & Output 11/08/19 11/09/19 11/09/19 18:59 06:59 18:59 Intake Total 1091.833 10 Output Total 1925 1550 Balance -833.167 -1550 10 Weight 137.7 kg Intake: IV 40 10 .9 40 10 Intake, IV Titration 97.833 Amount Furosemide 100 mg In 97.833 Sodium Chloride 0.9% 90 ml @ 5 MG/HR 5 mls/hr IV .Q20H [facility] Rx#:[id number] Oral 954 Output: Urine 1925 1550 Other: # Voids 1 # Bowel Movements 0 - Labs CBC & Chem 7: 11/07/19 07:01 11/09/19 05:47 Labs: Abnormal Lab Results - Last 24 Hours (Table) 11/08/19 11/08/19 11/08/19 Range/Units 17:04 18:27 20:24 Sodium 135 L (137-145) mmol/L Chloride 86 L (98-107) mmol/L Carbon Dioxide 39 H (22-30) mmol/L BUN (9-20) mg/dL Creatinine (0.66-1.25) mg/dL Glucose (74-99) mg/dL POC Glucose (mg/dL) 137 H 149 H (75-99) mg/dL 05/11/09/19 11/09/19 Range/Units 05:47 06:11 12:21 Sodium 135 L (137-145) mmol/L Chloride 88 L (98-107) mmol/L Carbon Dioxide 36 H (22-30) mmol/L BUN 73 H (9-20) mg/dL Creatinine 2.09 H (0.66-1.25) mg/dL Glucose 106 H (74-99) mg/dL POC Glucose (mg/dL) 135 H 119 H (75-99) mg/dL Assessment and Plan Plan: Assessment: 1. Acute kidney injury mostly prerenal secondary to cardiorenal syndrome. Renal function slightly worse which is due to diuresis. UA benign. 2. Hypokalemia secondary to diuresis. Magnesium normal. Improved posterior placement. 3. Chronic kidney disease stage III with baseline creatinine near 1.5 secondary to cardiorenal syndrome. 4. Volume overload. Improved with diuresis. 5. Insulin-dependent diabetes mellitus. 6. Acute on chronic systolic CHF with ejection fraction of 40-45%. Plan: Maintain Lasix 40 mg IV twice daily. Can transition over to oral diuretics tomorrow. Maintain potassium supplementation - I will give an additional 40 mEq today. Repeat electrolytes in the morning. Avoid nephrotoxins. Discontinue Fleet enemas. Continue with lactulose as needed for constipation.
[2019-11-09 17:20] LABS: Glucose,Whole Blood 126 mg/dL (75-99)
--- NOTE | 2019-11-09 19:27 | PN ---
PROGRESS NOTE DATE OF SERVICE: 11/09/2019 This 49-year-old gentleman who was admitted with CHF acute exacerbation with acute on chronic systolic dysfunction, ejection fraction 40-50 percent with mitral regurgitation, being closely monitored at this time. The patient was on Lasix drip, currently on IV Lasix. The most recent chest x-ray done on November 06, which was reviewed by me showed CHF. The patient also had significant hypokalemia yesterday with 2.7, with correction, today it is 3.5. Renal function has slightly worsened to 2.09 at this time. PAST MEDICAL HISTORY: Reviewed. REVIEW OF SYSTEMS: CARDIOVASCULAR SYSTEM: No angina. Respiration as mentioned earlier. GI: No nausea or vomiting. : No dysuria or retention. NERVOUS SYSTEM: No focal deficits. CURRENT MEDICATIONS: Reviewed and include: 1. Tylenol p.r.n. 2. Maalox 15 mL q.6 p.r.n. 3. Zyloprim 100 mg p.o. daily. 4. Eliquis 5 mg p.o. b.i.d. 5. Lipitor 80 mg q.h.s. 6. Bacitracin. 7. Cepacol. 8. Tums. 9. Rocephin 1 g IV daily. 10.Lasix 40 mg IV b.i.d. 11.NovoLog. 12.Levemir 40 units subcu q.h.s. 13.Cephulac 20 g. 14.Synthroid. 15.Milk of magnesia. 16.Melatonin. 17.Lopressor. 18.ProAmatine. 19.Narcan. 20.Norvasc. 21.Zofran. 22.Protonix. 23.K-Dur. 24.Zoloft. 25.Ultram. PHYSICAL EXAM: Patient is alert and oriented times three. Pulse 92, blood pressure 97/60, respirations 16, temperature 97 degrees, pulse ox 97% on 4 L. HEENT: Conjunctivae normal. Oral mucosa moist. NECK is no jugular venous distention. No carotid bruit. No lymph node enlargement. CARDIOVASCULAR: S1, s2 muffled. Respiration: Breath sounds diminished in the bases. A few scattered rhonchi. ABDOMEN: Soft, obese, nontender. LEGS: Bilateral leg edema. NERVOUS SYSTEM: Diffusely weak. LABS: WBC 11.1, sodium 135, creatinine 2.09. ASSESSMENT: 1. Congestive heart failure acute exacerbation with acute on chronic systolic dysfunction ejection fraction 40 50% with mild tricuspid regurgitation as well as mild pulmonary hypertension. 2. Suspected gram-negative pneumonia present on admission. 3. Severe hypokalemia. 4. Acute on chronic renal failure with acute tubular necrosis prerenal failure from possibly diuretics. 5. Chronic kidney disease stage III baseline. 6. Hyponatremia with diuresis and Lasix drip. 7. Persistent atrial fibrillation. 8. Chronic obstructive pulmonary disease. 9. Chronic deep vein thrombosis chronically on anticoagulation. 10.Hyperlipidemia. 11.Hypertension. 12.Obstructive sleep apnea. 13.Hypothyroidism. 14.History of peripheral vascular disease. 15.Multiple abdominal wall hernia surgery. 16.Colonic diverticulosis. 17.Morbid obesity with BMI of 44.6 and gait dysfunction. 18.FULL CODE. RECOMMENDATIONS AND DISCUSSION: Recommend to continue current medications. Continue IV Lasix. Monitor creatinine closely. Potassium replaced. Repeat lytes. Increase ambulation. Otherwise, closely monitor. Prognosis guarded. Further recommendations to follow. MMODL / IJN: [id number] /
[2019-11-09 20:15] LABS: Glucose,Whole Blood 155 mg/dL (75-99)
[2019-11-09] MEDS: INSULIN DETEMIR (LEVEMIR) 100 UNIT/ML SYR SQ SCH (21:48)
[2019-11-09] MEDS: ATORVASTATIN 80 MG TAB PO SCH (21:49)
[2019-11-10] MEDS: LACTULOSE 20 GM/30 ML CUP PO SCH ×4 (01:04→12:44)
[2019-11-10 04:31] VITALS: RESP 18
[2019-11-10 06:14] LABS: Glucose,Whole Blood 112 mg/dL (75-99)
[2019-11-10] MEDS: INSULIN ASPART (NovoLOG) 100 UNIT/ML VIAL SQ SCH ×2 (06:18→12:43)
[2019-11-10] MEDS: PANTOPRAZOLE 40 MG TABLET PO SCH (06:51)
[2019-11-10] MEDS: MIDODRINE 5 MG TAB PO SCH (06:51)
[2019-11-10] MEDS: LEVOTHYROXINE 137 MCG TAB PO SCH (06:51)
[2019-11-10 07:51] LABS: Calcium 9.4 mg/dL (8.4-10.2); Magnesium 2.5 mg/dL (1.6-2.3); Potassium 3.9 mmol/L (3.5-5.1)
[2019-11-10] MEDS: METOPROLOL TARTRATE 50 MG TAB PO SCH (09:27)
[2019-11-10] MEDS: POTASSIUM CHLORIDE ER 20 MEQ TAB.ER PO SCH (09:27)
[2019-11-10] MEDS: traMADol 50 MG TAB PO SCH (09:27)
[2019-11-10] MEDS: ALLOPURINOL 100 MG TAB PO SCH (09:27)
[2019-11-10] MEDS: SERTRALINE 100 MG TAB PO SCH (09:27)
[2019-11-10] MEDS: APIXABAN 5 MG TAB PO SCH (09:27)
[2019-11-10] MEDS: FUROSEMIDE 10 MG/ML 4 ML VIAL IV SCH (09:28)
[2019-11-10] MEDS: BACITRACIN 500 UNIT/GM OINT 28.4 GM TUBE TOPICAL SCH (09:28)
[2019-11-10 10:34] VITALS: TEMP 98.7
[2019-11-10 11:29] LABS: Glucose,Whole Blood 142 mg/dL (75-99)
[2019-11-10 12:54] VITALS: BP 106/87; PULSE 89
--- NOTE | 2019-11-10 13:15 | P.PN ---
Subjective Patient is seen in follow-up for acute kidney injury on chronic kidney disease. Renal function is fairly stable. Currently maintained on Lasix 40 mg IV twice daily. Edema improved. Denies chest pain or shortness of breath. Had a large bowel movement this morning. Vital signs are stable. General: The patient appeared well nourished and normally developed. HEENT: Head exam is unremarkable. Neck is without jugular venous distension. LUNGS: Lungs are clear to auscultation and percussion. Breath sounds decreased. HEART: Rate and Rhythm are regular. ABDOMEN: Abdominal exam reveals normal bowel sounds. Non-tender and non- distended. Obese. EXTREMITITES: Trace edema. Chronic changes noted. Objective - Vital Signs Vital signs: Vital Signs Temp 98.7 F 11/10/19 08:00 Pulse 89 11/10/19 12:00 Resp 18 11/10/19 04:00 BP 106/87 11/10/19 12:00 Pulse Ox 97 11/10/19 12:00 Intake & Output 11/09/19 11/10/19 11/10/19 18:59 06:59 18:59 Intake Total 532 1428 30 Output Total 1100 1200 300 Balance -568 228 -270 Weight 137.9 kg Intake: IV 20 30 .9 20 30 Oral 512 1428 Output: Urine 1100 1200 300 Other: Voiding Method Urinal # Voids 2 # Bowel Movements 1 1 - Labs CBC & Chem 7: 11/07/19 07:01 11/10/19 06:17 Labs: Abnormal Lab Results - Last 24 Hours (Table) 11/09/19 11/09/19 11/10/19 Range/Units 17:07 20:13 06:12 Sodium (137-145) mmol/L Chloride (98-107) mmol/L Carbon Dioxide (22-30) mmol/L BUN (9-20) mg/dL Creatinine (0.66-1.25) mg/dL POC Glucose (mg/dL) 126 H 155 H 112 H (75-99) mg/dL Magnesium (1.6-2.3) mg/dL 11/10/19 11/10/19 Range/Units 06:17 11:26 Sodium 136 L (137-145) mmol/L Chloride 88 L (98-107) mmol/L Carbon Dioxide 38 H (22-30) mmol/L BUN 68 H (9-20) mg/dL Creatinine 2.12 H (0.66-1.25) mg/dL POC Glucose (mg/dL) 142 H (75-99) mg/dL Magnesium 2.5 H (1.6-2.3) mg/dL Assessment and Plan Plan: Assessment: 1. Acute kidney injury mostly prerenal secondary to cardiorenal syndrome. Renal function fairly stable. Creatinine 2.12 today. UA benign. 2. Hypokalemia secondary to diuresis. Magnesium normal. Improved post placement. 3. Chronic kidney disease stage III with baseline creatinine near 1.5 secondary to cardiorenal syndrome. 4. Volume overload. Improved with diuresis. 5. Insulin-dependent diabetes mellitus. 6. Acute on chronic systolic CHF with ejection fraction of 40-45%. Plan: Discontinue IV Lasix. Start oral Lasix 60 mg twice daily. Repeat electrolytes in the morning. Avoid nephrotoxins. Discontinue Fleet enemas. Continue with lactulose as needed for constipation. Anticipate discharge soon. Repeat BMP and magnesium level 2-3 days postdischarge. Follow up outpatient in 1-2 weeks.
--- NOTE | 2019-11-10 15:45 | P.PN ---
Subjective Progress Note Date: 11/10/19 49-year-old male patient with multiple comorbid conditions including advanced COPD, with baseline FEV1 of 1.43 L or 35% of predicted consistent with stage III COPD, previous history of respiratory failure requiring prolonged mechanical ventilator support and placement of tracheostomy tube and subsequent removal, paroxysmal atrial fibrillation on Eliquis, hypothyroidism, morbid obesity, history of DVT, depression, hyperlipidemia, previous history of myocardial infarction, coronary arterial sclerosis, chronic kidney disease, unspecified, chronic venous stasis, chronic CHF with systolic and diastolic dysfunction and EF, previous history of colonic abscess status post bowel resection with placement of colostomy and subsequent reversal, and history of incisional hernia and fistula repairs, and MRSA infection in surgical wounds. Patient presented to the emergency department on 11/05/2019 for evaluation of worsening shortness of breath for 4 days, cough without phlegm production, body aches, weakness, patient denies any fever or chills. He states he was not able to yet up out of bed, he missed 4 days worth of his medications including his diuretics reports increasing swelling in his lower extremities. Did have some right-sided chest pain on admission, denied any palpitations, denied any nausea, vomiting or diarrhea. Patient was seen and examined today, continues to be maintained on IV Lasix, edema is improving, denies any chest pain or shortness of breath. Renal function is stable. Objective - Vital Signs Vital signs: Vital Signs Temp 98.7 F 11/10/19 08:00 Pulse 89 11/10/19 12:00 Resp 18 11/10/19 04:00 BP 106/87 11/10/19 12:00 Pulse Ox 97 11/10/19 12:00 Intake & Output 11/09/19 11/10/19 11/10/19 18:59 06:59 18:59 Intake Total 532 1428 688 Output Total 1100 1200 300 Balance -568 228 388 Weight 137.9 kg Intake: IV 20 30 .9 20 30 Oral 512 1428 658 Output: Urine 1100 1200 300 Other: Voiding Method Urinal # Voids 2 # Bowel Movements 1 1 - Exam Vital signs are stable. General: The patient appeared well nourished and normally developed. HEENT: Head exam is unremarkable. Neck is without jugular venous distension. LUNGS: Lungs are clear to auscultation and percussion. Breath sounds decreased. HEART: Rate and Rhythm are regular. ABDOMEN: Abdominal exam reveals normal bowel sounds. Non-tender and non- distended. Obese. EXTREMITITES: Trace edema. Chronic changes noted. - Labs CBC & Chem 7: 11/07/19 07:01 11/10/19 06:17 Labs: Abnormal Lab Results - Last 24 Hours (Table) 11/09/19 11/09/19 11/10/19 Range/Units 17:07 20:13 06:12 Sodium (137-145) mmol/L Chloride (98-107) mmol/L Carbon Dioxide (22-30) mmol/L BUN (9-20) mg/dL Creatinine (0.66-1.25) mg/dL POC Glucose (mg/dL) 126 H 155 H 112 H (75-99) mg/dL Magnesium (1.6-2.3) mg/dL 11/10/19 11/10/19 Range/Units 06:17 11:26 Sodium 136 L (137-145) mmol/L Chloride 88 L (98-107) mmol/L Carbon Dioxide 38 H (22-30) mmol/L BUN 68 H (9-20) mg/dL Creatinine 2.12 H (0.66-1.25) mg/dL POC Glucose (mg/dL) 142 H (75-99) mg/dL Magnesium 2.5 H (1.6-2.3) mg/dL Assessment and Plan Plan: Assessment and plan: #1. Acute exacerbation of chronic CHF with systolic and diastolic dysfunction, and echocardiogram showed EF of 40-45%, mild mitral regurg, mild tricuspid regurg, and mild pulmonary hypertension with right-sided pressures of 41.6 mmHg #2. Weakness, body aches, shortness of breath and cough, COVID 19 infection ruled out #3. Hypokalemia, related to dehydration, diuretics and poor oral intake #4. Chronic persistent atrial fibrillation on Eliquis #5. Right chest discomfort, 2 sets of troponins were negative #6. Chronic kidney disease stage III #7. Advanced COPD, stage III, with baseline FEV1 of 1.43 L or 35% of predicted, FVC of 2.06 L or 40% of predicted, with no significant response after bronchodilators #8. Chronic hypoxic respiratory failure, multifactorial, related to history of COPD and chronic congestive heart failure and obstructive sleep apnea #9. History of obstructive sleep apnea not on CPAP therapy #10. Previous history of respiratory failure requiring prolonged mechanical ventilator support with placement of tracheostomy and subsequent liberation from mechanical ventilator and decannulation #11. Previous history of colonic abscess, status post bowel resection with colostomy placement and reversal, with subsequent hernia repairs, MRSA infection #12. Hypothyroidism #13. Morbid obesity #14. Previous history of DVT on Eliquis #15. Depressive disorder #16. Previous history of myocardial infarction #17. Renal artery disease with previous stenting Plan IV Lasix will be discontinued today and patient will be started on oral diuretics. We'll repeat the labs in the morning. Anticipate discharge soon. DNP note has been reviewed, I agree with a documented findings and plan of care. Patient was seen and examined.
[2019-11-10] MEDS ORDERED: FUROSEMIDE 20 MG TAB PO SCH (16:00)
--- NOTE | 2019-11-11 04:34 | DS ---
DISCHARGE SUMMARY DATE OF SERVICE: 11/10/2019 FINAL DIAGNOSES: 1. Congestive heart failure acute exacerbation with acute on chronic systolic dysfunction, ejection fraction 40% to 50% with mild tricuspid regurgitation as well as mild pulmonary hypertension. 2. Suspected gram-negative pneumonia, present on admission, improved. 3. Severe hypokalemia. 4. Acute on chronic renal failure with acute tubular necrosis prerenal renal failure with possibly secondary to diuretics. 5. Chronic kidney disease stage 3, baseline. 6. Hyponatremia. 7. Status post IV Lasix drip. 8. Persistent atrial fibrillation. 9. Chronic obstructive pulmonary disease. 10.Chronic deep venous thrombosis chronically on anticoagulation. 11.Hypertension. 12.Hyperlipidemia. 13.Obstructive sleep apnea. 14.Hypothyroidism. 15.History of peripheral vascular disease. 16.Multiple abdominal wall hernia surgery. 17.Colonic diverticulosis. 18.Morbid obesity with body mass index of 44.6. 19.Gait dysfunction. 20.FULL CODE. DISCHARGE DISPOSITION: The patient will be discharged in a stable with guarded prognosis. Patient will be discharged home. Total time taken is 35 minutes. HISTORY OF PRESENT ILLNESS: This 49-year-old gentleman with a past medical history of multiple medical problems was admitted with CHF acute exacerbation, acute on chronic systolic dysfunction. Patient treated with IV Lasix. The patient improved significantly. Patient also had mild renal failure. Chest x-ray improved. The patient was seen by Dr. Turcios, Pulmonology and Cardiology. Overall patient made significant improvement. Creatinine is 2.12 and BUN is 68. Recommend close outpatient followup. Cardiology and Pulmonology cleared the patient for discharge. The patient will be discharged in stable condition and guarded prognosis. 1. Diet is cardiac diet. 2. Activity limited until followup. 3. Follow up with Dr. Bhatt in 1 to 2 days. 4. Follow up with Dr. Uriel Wood and Nephrology as recommended. MEDICATIONS ARE: 1. Lasix 60 mg p.o. b.i.d. 2. Insulin Levemir 40 units subcu at bedtime. 3. Lipitor 80 mg at bedtime. 4. KCl 20 mEq p.o. b.i.d. 5. Synthroid 137 mcg p.o. daily. 6. Ultram 50 mg p.o. b.i.d. 7. Zaroxolyn 2.5 mg b.i.d. 8. Zoloft 100 mg p.o. daily. 9. Zyloprim 100 mg p.o. daily. 10.Bacitracin ointment for local application. 11.Lactulose p.r.n. 12.Eliquis 5 mg p.o. b.i.d. 13.Lopressor 50 mg p.o. t.i.d. 14.Nitrostat 0.4 sublingual p.r.n. 15.Midodrine 5 mg a.c. b.i.d. Once again the patient will be discharged in stable condition with guarded prognosis. MMODL / IJN: [id number] /
== END 2019-11-10 17:18 | disposition home health service (06) | DRG 291 ==
LOC: EC 18:10 → 3SCARD 20:53
PROVIDERS: ADMIT Hospitalist; ATTEND Hospitalist
DX: I13.0 Hypertensive heart and chronic kidney disease with heart failure and stage 1 through stage 4 chronic kidney disease, or unspecified chronic kidney disease (principal); I50.23 Acute on chronic systolic (congestive) heart failure; N17.0 Acute kidney failure with tubular necrosis; J15.6 Pneumonia due to other Gram-negative bacteria; I48.19 Other persistent atrial fibrillation; Z68.41 Body mass index [BMI] 40.0-44.9, adult; E87.1 Hypo-osmolality and hyponatremia; J96.11 Chronic respiratory failure with hypoxia; E87.3 Alkalosis; J44.0 Chronic obstructive pulmonary disease with (acute) lower respiratory infection; I27.20 Pulmonary hypertension, unspecified; E86.0 Dehydration; I95.9 Hypotension, unspecified; E11.22 Type 2 diabetes mellitus with diabetic chronic kidney disease; N18.3 Chronic kidney disease, stage 3 (moderate); E11.51 Type 2 diabetes mellitus with diabetic peripheral angiopathy without gangrene; E66.01 Morbid (severe) obesity due to excess calories; Z79.4 Long term (current) use of insulin; Z20.828 Contact with and (suspected) exposure to other viral communicable diseases; I25.5 Ischemic cardiomyopathy; E03.9 Hypothyroidism, unspecified; I08.1 Rheumatic disorders of both mitral and tricuspid valves; I25.10 Atherosclerotic heart disease of native coronary artery without angina pectoris; E78.5 Hyperlipidemia, unspecified; G47.33 Obstructive sleep apnea (adult) (pediatric); E87.6 Hypokalemia; T50.2X5A Adverse effect of carbonic-anhydrase inhibitors, benzothiadiazides and other diuretics, initial encounter; T50.906A Underdosing of unspecified drugs, medicaments and biological substances, initial encounter; Z91.128 Patient's intentional underdosing of medication regimen for other reason; K57.30 Diverticulosis of large intestine without perforation or abscess without bleeding; K43.9 Ventral hernia without obstruction or gangrene; F32.9 Major depressive disorder, single episode, unspecified; R26.9 Unspecified abnormalities of gait and mobility; I87.8 Other specified disorders of veins; K59.00 Constipation, unspecified; S30.811A Abrasion of abdominal wall, initial encounter; I25.2 Old myocardial infarction; F17.200 Nicotine dependence, unspecified, uncomplicated; Z79.01 Long term (current) use of anticoagulants; Z79.890 Hormone replacement therapy; Z79.51 Long term (current) use of inhaled steroids; Z79.899 Other long term (current) drug therapy; Y63.6 Underdosing and nonadministration of necessary drug, medicament or biological substance; Z86.718 Personal history of other venous thrombosis and embolism; Z95.5 Presence of coronary angioplasty implant and graft; Z86.14 Personal history of Methicillin resistant Staphylococcus aureus infection; Z87.442 Personal history of urinary calculi; Z87.440 Personal history of urinary (tract) infections; Z90.49 Acquired absence of other specified parts of digestive tract; Z98.890 Other specified postprocedural states; Z99.3 Dependence on wheelchair; Z71.3 Dietary counseling and surveillance; Z88.1 Allergy status to other antibiotic agents; W50.4XXA Accidental scratch by another person, initial encounter; Z88.0 Allergy status to penicillin; Z88.8 Allergy status to other drugs, medicaments and biological substances; Z91.048 Other nonmedicinal substance allergy status; Z82.61 Family history of arthritis; Z82.62 Family history of osteoporosis; Z84.1 Family history of disorders of kidney and ureter; Z83.79 Family history of other diseases of the digestive system; Z82.49 Family history of ischemic heart disease and other diseases of the circulatory system; Z83.6 Family history of other diseases of the respiratory system
CPT/HCPCS: 36415; 71045; 71046; 80048; 80051; 80053; 81003; 83605; 83735; 83880; 84132; 84145; 84484; 85025; 85610; 85730; 87635; 93005; 93306; 94640; 96374; 99285

== ENCOUNTER 2019-11-20 08:48 | Inpatient (IN) | payer MEDICARE, OTHER ==
--- NOTE | 2019-11-20 09:33 | ED ---
General Adult HPI - General Chief complaint: Recheck/Abnormal Lab/Rx Stated complaint: Sent by pcp Time Seen by Provider: 11/20/19 09:01 Source: patient, RN notes reviewed Mode of arrival: ambulatory Limitations: no limitations - History of Present Illness Initial comments: 49-year-old male with a complicated past medical history including CHF, atrial f ibrillation on eliquis, CKD stage III, DVT since to the emergency department for a chief complaint of abnormal labs. Patient states that he takes the Lasix. States that he has not been taking his potassium quite as directed. Patient states a few months ago he was switched from potassium tabs to oral solution and has been unable to measure his potassium. When he had a blood draw earlier today his potassium was apparently 2.5.Patient has no other complaints at this time including shortness of breath, chest pain, abdominal pain, nausea or vomiting, headache, or visual changes. - Related Data Home Medications Medication Instructions Recorded Confirmed Sertraline [Zoloft] 100 mg PO DAILY 10/19/13 11/20/19 Atorvastatin [Lipitor] 80 mg PO HS 03/25/15 11/20/19 Levothyroxine Sodium [Synthroid] 137 mcg PO DAILY 03/25/15 11/20/19 Allopurinol [Zyloprim] 100 mg PO DAILY 12/17/17 11/20/19 Furosemide [Lasix] 60 mg PO BID@0900,2100 11/05/19 11/20/19 Insulin Detemir [Levemir Flextouch] 40 units SQ HS 11/05/19 11/20/19 Metolazone [Zaroxolyn] 2.5 mg PO BID 11/05/19 11/20/19 Potassium Chloride Oral Liquid 20 meq PO BID 11/05/19 11/20/19 traMADol HCL 50 mg PO BID 11/05/19 11/20/19 Furosemide [Lasix] 20 mg PO DAILY@1200 11/20/19 11/20/19 Gabapentin [Neurontin] 300 mg PO DAILY 11/20/19 11/20/19 Previous Rx's Medication Instructions Recorded Nitroglycerin Sl Tabs [Nitrostat] 0.4 mg SUBLINGUAL Q5M PRN #30 tab 12/03/14 Apixaban [Eliquis] 5 mg PO BID tab 06/03/18 Bacitracin Oint 1 applic TOPICAL BID #1 applic 11/10/19 Metoprolol Tartrate [Lopressor] 50 mg PO TID 30 Days #90 tab 11/10/19 Midodrine [ProAmatine] 5 mg PO AC-BID 30 Days #60 tab 11/10/19 Allergies Allergy/AdvReac Type Severity Reaction Status Date / Time adhesive Allergy "PLASTIC Verified 11/20/19 09:01 TAPE PEELS SKIN,PAPER TAPE IS OK" linezolid Allergy Unknown Verified 11/20/19 09:01 penicillin G Allergy Rash/Hives Verified 11/20/19 09:01 Cephalosporins AdvReac FEVER Verified 11/20/19 09:01 Review of Systems ROS Statement: Those systems with pertinent positive or pertinent negative responses have been documented in the HPI. ROS Other: All systems not noted in ROS Statement are negative. Past Medical History Past Medical History: Atrial Fibrillation, Asthma, Coronary Artery Disease (CAD), Chest Pain / Angina, Heart Failure, COPD, Deep Vein Thrombosis (DVT), Hyperlipidemia, Hypertension, Myocardial Infarction ([place]), Renal Disease, Sleep Apnea/CPAP/BIPAP, Thyroid Disorder, Vascular Disorder Additional Past Medical History / Comment(s): CHF, tracheobronchitis, CKD stage III, kidney stones, DVT L leg in 2004, KAMRYN without device use, colon abscess with bowel resection, multiple abdominal surgeries for a hiatal hernia that was complicated by prolonged hospitalization and prolonged ventilator dependent respiratory failure requiring a tracheostomy tube insertion, pvd-lower legs discolored/edematous, diverticular disease, chronic iron deficiency anemia, vertigo at times, Last Myocardial Infarction Date:: History of Any Multi-Drug Resistant Organisms: MRSA Date of last positivie culture/infection: 02/01/15 MDRO Source:: Abdomen Past Surgical History: Bowel Resection, Heart Catheterization With Stent, Hernia Repair Additional Past Surgical History / Comment(s): Colonoscopies, heart stents x 4, bowel resection with colostomy and colostomy reversal (removed a foot of pts colon)-2003, hernia repair with skin grafts and 2 fistula repairs (hospitalized for 1 year @[facility])-2010 MRSA 2014 in wounds. Past Anesthesia/Blood Transfusion Reactions: No Reported Reaction Additional Past Anesthesia/Blood Transfusion Reaction / Comment(s): Pt has received blood in past without reaction-2010 Date of Last Stent Placement:: 03/28/2015 Past Psychological History: Depression Smoking Status: Former smoker Past Alcohol Use History: None Reported Past Drug Use History: None Reported - Past Family History Mother Family Medical History: Osteoarthritis (OA), Pneumonia Additional Family Medical History / Comment(s): osteoporosis. arthroscopy surgery for knee Father Family Medical History: Liver Disease, Renal Disease Additional Family Medical History / Comment(s): triple heart bypass. liver transplant. aortic aneursym General Exam Limitations: no limitations General appearance: alert, in no apparent distress Head exam: Present: atraumatic, normocephalic, normal inspection Eye exam: Present: normal appearance, PERRL, EOMI. Absent: scleral icterus, conjunctival injection, periorbital swelling ENT exam: Present: normal exam, mucous membranes moist Neck exam: Present: normal inspection, full ROM. Absent: tenderness, meningismus, lymphadenopathy Respiratory exam: Present: normal lung sounds bilaterally. Absent: respiratory distress, wheezes, rales, rhonchi, stridor Cardiovascular Exam: Present: regular rate, normal rhythm, normal heart sounds. Absent: systolic murmur, diastolic murmur, rubs, gallop, clicks GI/Abdominal exam: Present: soft, normal bowel sounds. Absent: distended, tenderness, guarding, rebound, rigid Back exam: Absent: CVA tenderness (R), CVA tenderness (L) Neurological exam: Present: alert Course Vital Signs 11/20/19 11/20/19 11/20/19 08:57 09:25 11:50 Temperature 98.8 F 98.2 F Pulse Rate 90 125 H Pulse Rate [ 101 H Pulse Oximetery ] Respiratory 18 18 18 Rate Blood Pressure 101/70 115/79 Blood Pressure 133/82 [Left Arm] O2 Sat by Pulse 95 100 99 Oximetry 11/20/19 12:16 Temperature 98.3 F Pulse Rate 105 H Pulse Rate [ Pulse Oximetery ] Respiratory 18 Rate Blood Pressure 99/70 Blood Pressure [Left Arm] O2 Sat by Pulse 98 Oximetry EKG Findings - EKG Comments: EKG Findings:: Atrial fibrillation, ventricular rate 115, QRS duration 96, QTc 470 Medical Decision Making - Medical Decision Making 49-year-old male presents for multiple complaints. Patient's initial complaint is low potassium. Potassium of 2.9 is evident on presentation, patient given IV and oral potassium. Magnesium 1.8. CMP also reveals increased dehydration, patient given 500 multiple fluid. Upon presentation heart rate was in the 90s however after the patient had been in the ER for about 20 minutes his heart rate was in the 130s. He was found to be in A. fib RVR. Patient is anticoagulated on Eliquis. He was started on Cardizem and is now in the 110s. Patient will be admitted for further management. Dr. Barrera did except this admission. According to RN, patients PCP called and recommended patient be placed in an ECF facility as he is not taking his medications or caring for himself. - Lab Data Result diagrams: 11/20/19 09:25 11/20/19 09:25 Lab Results 11/20/19 11/20/19 11/20/19 Range/Units 09:25 09:25 09:25 WBC 8.6 (3.8-10.6) k/uL RBC 5.07 (4.30-5.90) m/uL Hgb 14.4 (13.0-17.5) gm/dL Hct 42.2 (39.0-53.0) % MCV 83.3 (80.0-100.0) fL MCH 28.5 (25.0-35.0) pg MCHC 34.2 (31.0-37.0) g/dL RDW 18.6 H (11.5-15.5) % Plt Count 130 L (150-450) k/uL Neutrophils % 69 % Lymphocytes % 17 % Monocytes % 8 % Eosinophils % 4 % Basophils % 1 % Neutrophils # 5.9 (1.3-7.7) k/uL Lymphocytes # 1.5 (1.0-4.8) k/uL Monocytes # 0.7 (0-1.0) k/uL Eosinophils # 0.4 (0-0.7) k/uL Basophils # 0.1 (0-0.2) k/uL Poikilocytosis Slight Anisocytosis Slight PT 10.6 (9.0-12.0) sec INR 1.0 (<1.2) APTT 32.9 H (22.0-30.0) sec Sodium 130 L (137-145) mmol/L Potassium 2.9 L (3.5-5.1) mmol/L Chloride 80 L (98-107) mmol/L Carbon Dioxide 38 H (22-30) mmol/L Anion Gap 12 mmol/L BUN 85 H (9-20) mg/dL Creatinine 1.82 H (0.66-1.25) mg/dL Est GFR (CKD-EPI)AfAm 50 (>60 ml/min/1.73 sqM) Est GFR (CKD-EPI)NonAf 43 (>60 ml/min/1.73 sqM) Glucose 233 H (74-99) mg/dL Calcium 9.8 (8.4-10.2) mg/dL Magnesium 1.8 (1.6-2.3) mg/dL Total Bilirubin 0.9 (0.2-1.3) mg/dL AST 39 (17-59) U/L ALT 28 (4-49) U/L Alkaline Phosphatase 110 (38-126) U/L Troponin I (0.000-0.034) ng/mL NT-Pro-B Natriuret Pep pg/mL Total Protein 7.7 (6.3-8.2) g/dL Albumin 4.0 (3.5-5.0) g/dL Urine Color Urine Appearance (Clear) Urine pH (5.0-8.0) Ur Specific Equality (1.001-1.035) Urine Protein (Negative) Urine Glucose (UA) (Negative) Urine Ketones (Negative) Urine Blood (Negative) Urine Nitrite (Negative) Urine Bilirubin (Negative) Urine Urobilinogen (<2.0) mg/dL Ur Leukocyte Esterase (Negative) 11/20/19 11/20/19 11/20/19 Range/Units 09:25 09:25 09:55 WBC (3.8-10.6) k/uL RBC (4.30-5.90) m/uL Hgb (13.0-17.5) gm/dL Hct (39.0-53.0) % MCV (80.0-100.0) fL MCH (25.0-35.0) pg MCHC (31.0-37.0) g/dL RDW (11.5-15.5) % Plt Count (150-450) k/uL Neutrophils % % Lymphocytes % % Monocytes % % Eosinophils % % Basophils % % Neutrophils # (1.3-7.7) k/uL Lymphocytes # (1.0-4.8) k/uL Monocytes # (0-1.0) k/uL Eosinophils # (0-0.7) k/uL Basophils # (0-0.2) k/uL Poikilocytosis Anisocytosis PT (9.0-12.0) sec INR (<1.2) APTT (22.0-30.0) sec Sodium (137-145) mmol/L Potassium (3.5-5.1) mmol/L Chloride (98-107) mmol/L Carbon Dioxide (22-30) mmol/L Anion Gap mmol/L BUN (9-20) mg/dL Creatinine (0.66-1.25) mg/dL Est GFR (CKD-EPI)AfAm (>60 ml/min/1.73 sqM) Est GFR (CKD-EPI)NonAf (>60 ml/min/1.73 sqM) Glucose (74-99) mg/dL Calcium (8.4-10.2) mg/dL Magnesium (1.6-2.3) mg/dL Total Bilirubin (0.2-1.3) mg/dL AST (17-59) U/L ALT (4-49) U/L Alkaline Phosphatase (38-126) U/L Troponin I <0.012 (0.000-0.034) ng/mL NT-Pro-B Natriuret Pep 2780 pg/mL Total Protein (6.3-8.2) g/dL Albumin (3.5-5.0) g/dL Urine Color Yellow Urine Appearance Clear (Clear) Urine pH 6.5 (5.0-8.0) Ur Specific Equality 1.012 (1.001-1.035) Urine Protein Trace H (Negative) Urine Glucose (UA) Trace H (Negative) Urine Ketones Negative (Negative) Urine Blood Negative (Negative) Urine Nitrite Negative (Negative) Urine Bilirubin Negative (Negative) Urine Urobilinogen <2.0 (<2.0) mg/dL Ur Leukocyte Esterase Negative (Negative) Disposition Clinical Impression: Atrial fibrillation with RVR, Hypokalemia, Dehydration, Chronic renal failure Disposition: ADMITTED IP TO THIS HOSP
[2019-11-20] MEDS ORDERED: SODIUM CHLORIDE 0.9% 500 ML 500 ML IV STA (10:03)
[2019-11-20 10:30] LABS: Anisocytosis Slight; Basophils # (A) 0.1 k/uL (0-0.2); Basophils % (A) 1 %; Eosinophils # (A) 0.4 k/uL (0-0.7); Eosinophils % (A) 4 %; HCT 42.2 % (39.0-53.0); HGB 14.4 gm/dL (13.0-17.5); Lymphocytes # (A) 1.5 k/uL (1.0-4.8); Lymphocytes % (A) 17 %; MCH 28.5 pg (25.0-35.0); MCHC 34.2 g/dL (31.0-37.0); MCV 83.3 fL (80.0-100.0); Mean Platelet Volume 9.2; Monocytes # (A) 0.7 k/uL (0-1.0); Monocytes % (A) 8 %; Neutrophils # (A) 5.9 k/uL (1.3-7.7); Neutrophils % (A) 69 %; Platelet Count 130 k/uL (150-450); Poikilocytosis Slight; RBC 5.07 m/uL (4.30-5.90); RDW 18.6 % (11.5-15.5); WBC 8.6 k/uL (3.8-10.6)
[2019-11-20 10:38] LABS: Partial Thromboplastin Time 32.9 sec (22.0-30.0); Prothrombin Time 10.6 sec (9.0-12.0)
[2019-11-20 10:41] LABS: Calcium 9.8 mg/dL (8.4-10.2); Magnesium 1.8 mg/dL (1.6-2.3); Potassium 2.9 mmol/L (3.5-5.1); Total Bilirubin 0.9 mg/dL (0.2-1.3); Total Protein 7.7 g/dL (6.3-8.2)
--- NOTE | 2019-11-20 10:46 | XR ---
EXAMINATION TYPE: XR chest 1V portable DATE OF EXAM: 11/20/2019 COMPARISON: CXR from 11/07/19. HISTORY: Chest pain. TECHNIQUE: Single AP portable frontal upright view of the chest is obtained. FINDINGS: There is chronic parenchymal change without suspicious focal air space opacity, pleural ef fusion, or pneumothorax seen. The cardiac silhouette size is enlarged. The osseous structures are intact. IMPRESSION: Cardiomegaly and chronic changes without acute pulmonary process.
[2019-11-20 10:47] LABS: Appearance,Urine Clear (Clear); Bilirubin,Urine Negative (Negative); Blood,Urine Negative (Negative); Color,Urine Yellow; Glucose,Urine (UA) Trace (Negative); Ketones,Urine Negative (Negative); Leukocyte Esterase,Urine Negative (Negative); Nitrite,Urine Negative (Negative); PH, Urine 6.5 (5.0-8.0); Protein,Urine Trace (Negative); Specific Gravity,Urine 1.012 (1.001-1.035); Urobilinogen,Urine <2.0 mg/dL (<2.0)
[2019-11-20] MEDS ORDERED: POTASSIUM CHLORIDE ER 20 MEQ TAB.ER PO STA (10:49)
[2019-11-20] MEDS: POTASSIUM CHLORIDE 10 MEQ in WATER FOR INJECTION 1 100ML.BAG IVPB SCH ×4 (10:59→16:20)
[2019-11-20] MEDS ORDERED: DILTIAZEM 125 MG in SODIUM CHLORIDE 0.9% 100 ML IV SCH (11:00)
[2019-11-20] MEDS ORDERED: NITROGLYCERIN SL TABS 0.4 MG TAB SUBLINGUAL PRN (15:10)
[2019-11-20] MEDS ORDERED: ALPRAZolam 0.25 MG TAB PO PRN (15:11)
[2019-11-20] MEDS ORDERED: MAG HYDROX/AL HYDROX/SIMETH 30 ML CUP PO PRN (15:11)
[2019-11-20] MEDS ORDERED: MAGNESIUM HYDROXIDE 2,400 MG/10 ML CUP PO PRN (15:11)
[2019-11-20] MEDS ORDERED: MELATONIN 3 MG TABLET PO PRN (15:11)
[2019-11-20] MEDS ORDERED: CALCIUM CARBONATE 500 MG CHEWABLE PO PRN (15:11)
[2019-11-20] MEDS ORDERED: ONDANSETRON 4 MG/2 ML VIAL IVP PRN (15:11)
[2019-11-20] MEDS ORDERED: LACTULOSE 20 GM/30 ML CUP PO PRN (15:11)
[2019-11-20] MEDS: METOPROLOL TARTRATE 50 MG TAB PO SCH ×2 (16:19→20:45)
[2019-11-20] MEDS: traMADol 50 MG TAB PO PRN (16:19)
[2019-11-20 16:39] LABS: Glucose,Whole Blood 280 mg/dL (75-99)
[2019-11-20] MEDS: ACETAMINOPHEN TAB 325 MG TAB PO PRN ×2 (17:17→23:10)
[2019-11-20] MEDS: MIDODRINE 5 MG TAB PO SCH (17:17)
[2019-11-20] MEDS: INSULIN ASPART (NovoLOG) 100 UNIT/ML VIAL SQ SCH ×2 (17:18→20:54)
--- NOTE | 2019-11-20 17:47 | P.HPIM ---
History of Present Illness H&P Date: 11/20/19 Chief Complaint: Hypokalemia History of presenting complaint: This is a pleasant 49-year-old patient with extensive medical history. Patient follows with visiting physicians. Dr. Chaney. Chronic stable medical conditions include atrial fibrillation, diabetes with peripheral neuropathy, coronary artery disease with stent, COPD, UTI, hypertension, hyperlipidemia, chronic ki dney disease,(s) sleep apnea, kidney stones,(s) sleep apnea does not use a device, multiple abdominal surgeries for hiatal hernia, repair prolonged hospitalizations also history of tracheostomy, peripheral arterial disease, diverticulosis,. 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 Normally uses a scooter oral walker to get about. Normally uses one pillow at night. Patient has breakdown of superficial skin on the abdominal wall from scratching. Patient was seen by his visiting physicians Dr. Chaney. Found to be severely hypokalemic. Patient had been feeling a bit weak and tired. Hence and all the ER. His appetite is fair. No change in bowel habit. No fever no chills. Review of systems: GEN.: Tired EYES: None HEENT: None NECK: None RESPIRATORY: None CARDIOVASCULAR: As above GASTROINTESTINAL: As above GENITOURINARY: None MUSCULOSKELETAL: None LYMPHATICS: None HEMATOLOGICAL: None PSYCHIATRY: None NEUROLOGICAL: Some chronic pain in the lower extremities. Past medical history to include: It'll fibrillation, coronary artery disease with stent, congestive heart failure EF 30-35%, COPD, DVT, hypertension, hyperlipidemia, chronic kidney disease, obstructive sleep apnea, hypothyroid, peripheral artery disease, chronic kidney disease stage III, kidney stones, DVT in the left leg in 2004,: Abscess with bowel resection, multiple abdominal surgeries for hiatal hernia,. Bladder prolonged hospitalization and prolonged medical-related dependent, with a tracheostomy tube, peripheral arterial disease, colonic diverticulosis, iron deficiency anemia,. Diabetes with peripheral neuropathy Social history: Patient is on disability. Patient smoked for about 10 years and stopped in 2008. In his symptoms smoking in 2015 quit in November of this year. Occasionally smoking no. No alcohol. Patient lives alone. Does have a scooter and a walker Physical examination: VITAL SIGNS: 98.3, 105, 18, 106/73, 100% on 4 L GENERAL: BMI 45.9, sitting up in bed, but tired EYES: Pupils equal. Conjunctiva normal. HEENT: External appearance of nose and ears normal, oral cavity grossly normal. NECK: JVD unable to assess; masses not palpable. HEART: First and second heart sounds are normal; edema present. LUNGS: Respiratory rate increased; decreased breath sounds ABDOMEN: Soft, nontender, liver spleen not palpable, no masses palpable, distended, with superficial breakdown of skin. Dressing also present.. PSYCH: Alert and oriented x3; mood and affect normal. NEUROLOGICAL: Cranial nerves grossly intact; no facial asymmetry, power and sensation grossly intact. LYMPHATICS: No lymph nodes palpable in the axilla and neck EXTREMITIES: Pigmentation of the both lower extremity distally INVESTIGATIONS, reviewed in the clinical context: White count 8.6 hemoglobin 14.4 platelets 1:30 potassium 2.9 bun 85 creatinine 1.8 to Previous testing: Labs from November 09 showed a bun of 68 and creatinine of 2.12 Assessment: -Severe hypokalemia -chronic congestive heart exacerbation EF of 30-35% from May 2019, from underlying coronary artery disease, -Hyponatremia, likely from diuretics -Persistent atrial fibrillation -COPD in an ex-smoker -Chronic DVT chronically on anticoagulation -Hyperlipidemia -Essential hypertension -Chronic kidney disease stage III from diabetic nephropathy and hypertensive nephrosclerosis -Operative sleep apnea does not use a device -Hypothyroid -Peripheral arterial disease -Multiple abdominal wall hernia from prior surgery -Colonic diverticulosis -Morbid obesity BMI 44.6 -Diabetes mellitus type 2 chronically on insulin. With peripheral neuropathy Plan: Home medications are to be resumed. Potassium to be replaced. Patient will eliquis. Care was discussed with the patient. Questions were answered. We will use Veto wrap for lower extremity. Past Medical History Past Medical History: Atrial Fibrillation, Asthma, Coronary Artery Disease (CAD), Chest Pain / Angina, Heart Failure, COPD, Deep Vein Thrombosis (DVT), Hyperlipidemia, Hypertension, Myocardial Infarction ([place]), Renal Disease, Sleep Apnea/CPAP/BIPAP, Thyroid Disorder, Vascular Disorder Additional Past Medical History / Comment(s): CHF, tracheobronchitis, CKD stage III, kidney stones, DVT L leg in 2004, KAMRYN without device use, colon abscess with bowel resection, multiple abdominal surgeries for a hiatal hernia that was complicated by prolonged hospitalization and prolonged ventilator dependent respiratory failure requiring a tracheostomy tube insertion, pvd-lower legs discolored/edematous, diverticular disease, chronic iron deficiency anemia, vertigo at times, Last Myocardial Infarction Date:: History of Any Multi-Drug Resistant Organisms: MRSA Date of last positivie culture/infection: 02/01/15 MDRO Source:: Abdomen Past Surgical History: Bowel Resection, Heart Catheterization With Stent, Hernia Repair Additional Past Surgical History / Comment(s): Colonoscopies, heart stents x 4, bowel resection with colostomy and colostomy reversal (removed a foot of pts colon)-2003, hernia repair with skin grafts and 2 fistula repairs (hospitalized for 1 year @[facility])-2010 MRSA 2015 in wounds. Past Anesthesia/Blood Transfusion Reactions: No Reported Reaction Additional Past Anesthesia/Blood Transfusion Reaction / Comment(s): Pt has received blood in past without reaction-2010 Date of Last Stent Placement:: 03/28/2015 Past Psychological History: Depression Smoking Status: Former smoker Past Alcohol Use History: None Reported Past Drug Use History: None Reported - Past Family History Mother Family Medical History: Osteoarthritis (OA), Pneumonia Additional Family Medical History / Comment(s): osteoporosis. arthroscopy surgery for knee Father Family Medical History: Liver Disease, Renal Disease Additional Family Medical History / Comment(s): triple heart bypass. liver transplant. aortic aneursym Medications and Allergies Home Medications Medication Instructions Recorded Confirmed Type Sertraline [Zoloft] 100 mg PO DAILY 10/19/13 11/20/19 History Nitroglycerin Sl Tabs [Nitrostat] 0.4 mg SUBLINGUAL Q5M PRN #30 tab 12/03/14 11/20/19 Rx Atorvastatin [Lipitor] 80 mg PO HS 03/25/15 11/20/19 History Levothyroxine Sodium [Synthroid] 137 mcg PO DAILY 03/25/15 11/20/19 History Allopurinol [Zyloprim] 100 mg PO DAILY 12/17/17 11/20/19 History Apixaban [Eliquis] 5 mg PO BID tab 06/03/18 11/20/19 Rx Furosemide [Lasix] 60 mg PO BID@0900,2100 11/05/19 11/20/19 History Insulin Detemir [Levemir Flextouch] 40 units SQ HS 11/05/19 11/20/19 History Metolazone [Zaroxolyn] 2.5 mg PO BID 11/05/19 11/20/19 History Potassium Chloride Oral Liquid 20 meq PO BID 11/05/19 11/20/19 History traMADol HCL 50 mg PO BID 11/05/19 11/20/19 History Bacitracin Oint 1 applic TOPICAL BID #1 applic 11/10/19 11/20/19 Rx Metoprolol Tartrate [Lopressor] 50 mg PO TID 30 Days #90 tab 11/10/19 11/20/19 Rx Midodrine [ProAmatine] 5 mg PO AC-BID 30 Days #60 tab 11/10/19 11/20/19 Rx Furosemide [Lasix] 20 mg PO DAILY@1200 11/20/19 11/20/19 History Gabapentin [Neurontin] 300 mg PO DAILY 11/20/19 11/20/19 History Allergies Allergy/AdvReac Type Severity Reaction Status Date / Time adhesive Allergy "PLASTIC Verified 11/20/19 09:01 TAPE PEELS SKIN,PAPER TAPE IS OK" linezolid Allergy Unknown Verified 11/20/19 09:01 penicillin G Allergy Rash/Hives Verified 11/20/19 09:01 Cephalosporins AdvReac FEVER Verified 11/20/19 09:01 Physical Exam Vitals: Vital Signs Temp Pulse Pulse Resp BP BP Pulse Ox 11/20/19 15:29 107 H 18 11/20/19 15:27 107 H 18 106/73 100 11/20/19 12:16 98.3 F 105 H 18 99/70 98 11/20/19 11:50 98.2 F 101 H 18 133/82 99 11/20/19 09:25 125 H 18 115/79 100 11/20/19 08:57 98.8 F 90 18 101/70 95 Intake and Output 11/20/19 11/20/19 11/20/19 06:59 14:59 22:59 Intake Total 237 Balance 237 Intake: Oral 237 Other: Weight 145.15 kg Results CBC & Chem 7: 11/20/19 09:25 11/20/19 09:25 Labs: Abnormal Lab Results - Last 24 Hours (Table) 11/20/19 11/20/19 11/20/19 Range/Units 09:25 09:25 09:25 RDW 18.6 H (11.5-15.5) % Plt Count 130 L (150-450) k/uL APTT 32.9 H (22.0-30.0) sec Sodium 130 L (137-145) mmol/L Potassium 2.9 L (3.5-5.1) mmol/L Chloride 80 L (98-107) mmol/L Carbon Dioxide 38 H (22-30) mmol/L BUN 85 H (9-20) mg/dL Creatinine 1.82 H (0.66-1.25) mg/dL Glucose 233 H (74-99) mg/dL POC Glucose (mg/dL) (75-99) mg/dL Urine Protein (Negative) Urine Glucose (UA) (Negative) 11/20/19 11/20/19 Range/Units 09:55 16:38 RDW (11.5-15.5) % Plt Count (150-450) k/uL APTT (22.0-30.0) sec Sodium (137-145) mmol/L Potassium (3.5-5.1) mmol/L Chloride (98-107) mmol/L Carbon Dioxide (22-30) mmol/L BUN (9-20) mg/dL Creatinine (0.66-1.25) mg/dL Glucose (74-99) mg/dL POC Glucose (mg/dL) 280 H (75-99) mg/dL Urine Protein Trace H (Negative) Urine Glucose (UA) Trace H (Negative) Thrombosis Risk Factor Assmnt - Choose All That Apply Each Factor Represents 1 point: Age 41-60 years, Obesity (BMI >25), Swollen legs (current) Each Risk Factor Represents 3 Points: History of DVT/PE Thrombosis Risk Factor Assessment Total Risk Factor Score: 6 Thrombosis Risk Factor Assessment Level: High Risk
[2019-11-20] MEDS: POTASSIUM BICARBONATE/CIT AC 20 MEQ TABLET.EFF PO SCH (20:45)
[2019-11-20] MEDS: METOLAZONE 2.5 MG TAB PO SCH (20:45)
[2019-11-20] MEDS: APIXABAN 5 MG TAB PO SCH (20:46)
[2019-11-20] MEDS: FUROSEMIDE 20 MG TAB PO SCH (20:47)
[2019-11-20] MEDS: BACITRACIN 500 UNIT/GM OINT 28.4 GM TUBE TOPICAL SCH (20:48)
[2019-11-20 20:49] LABS: Glucose,Whole Blood 185 mg/dL (75-99)
[2019-11-20] MEDS ORDERED: INSULIN DETEMIR (LEVEMIR) 100 UNIT/ML SYR SQ SCH (21:00)
[2019-11-20] MEDS ORDERED: ATORVASTATIN 80 MG TAB PO SCH (21:00)
[2019-11-21 06:09] LABS: Glucose,Whole Blood 154 mg/dL (75-99)
[2019-11-21] MEDS ORDERED: LEVOTHYROXINE 137 MCG TAB PO SCH (06:30)
[2019-11-21] MEDS: INSULIN ASPART (NovoLOG) 100 UNIT/ML VIAL SQ SCH ×2 (06:33→12:27)
[2019-11-21] MEDS: MIDODRINE 5 MG TAB PO SCH (06:34)
[2019-11-21 07:28] LABS: Calcium 9.5 mg/dL (8.4-10.2); Potassium 3.2 mmol/L (3.5-5.1)
--- NOTE | 2019-11-21 08:24 | P.CRDCN ---
History of Present Illness History of present illness: This is Dr. Hart dictating a consult on this patient, lung masses The patient was interviewed and examined IMPRESSION / ASSESSMENT: Hyperkalemia Not taking oral potassium Noncompliance Atrial fibrillation with RVR, mild PLAN: From a cardiac standpoint he is stable Slight increase in rate control medications Oral potassium May go home from a cardiac standpoint an outpatient follow-up HPI 43 male patient presenting for management of abnormal labs He's been taking Lasix potassium is low He has not been taking his potassium as directed Denies any shortness of breath chest discomfort or abdominal pain nausea vomiting headache or any visual changes Past history of CHF, atrial fibrillation ELIQUIS was C daily stage III and DVT Twelve-lead ECG shows atrial fibrillation with heart rates of 115 beats a minute ROS: No fever chills or rigors, no cough, phlegm or expectoration, no nausea, vomiting or diarrhea, no hematuria, dysuria, no musculoskeletal complaints, no strokes or seizures, no skin lesions. EXAMINATION: Heart sounds irregular and rate from 90-110 beats a minute on telemetry Breath sounds are clear Lower extremity edema Heart sounds irregular no murmurs Abdomen soft REVIEW OF LABS, ECG & MEDICAL DATA WHITE count 8.6, hemoglobin 14.4 Sodium 136 potassium low at 2.9 3.2 BUN 65 creatinine 1.45 and 1.8 ProBNP 2700 Normal liver function Elevated glucose levels Coronavirus not detected Chest x-ray shows cardiomegaly Past Medical History Past Medical History: Atrial Fibrillation, Asthma, Coronary Artery Disease (CAD), Chest Pain / Angina, Heart Failure, COPD, Deep Vein Thrombosis (DVT), Hyperlipidemia, Hypertension, Myocardial Infarction (ME), Renal Disease, Sleep Apnea/CPAP/BIPAP, Thyroid Disorder, Vascular Disorder Additional Past Medical History / Comment(s): CHF, tracheobronchitis, CKD stage III, kidney stones, DVT L leg in 2004, KAMRYN without device use, colon abscess with bowel resection, multiple abdominal surgeries for a hiatal hernia that was complicated by prolonged hospitalization and prolonged ventilator dependent respiratory failure requiring a tracheostomy tube insertion, pvd-lower legs discolored/edematous, diverticular disease, chronic iron deficiency anemia, vertigo at times, Last Myocardial Infarction Date:: History of Any Multi-Drug Resistant Organisms: MRSA Date of last positivie culture/infection: 02/01/15 MDRO Source:: Abdomen Past Surgical History: Bowel Resection, Heart Catheterization With Stent, Hernia Repair Additional Past Surgical History / Comment(s): Colonoscopies, heart stents x 4, bowel resection with colostomy and colostomy reversal (removed a foot of pts colon)-2003, hernia repair with skin grafts and 2 fistula repairs (hospitalized for 1 year @[facility])-2010 MRSA 2014 in wounds. Past Anesthesia/Blood Transfusion Reactions: No Reported Reaction Additional Past Anesthesia/Blood Transfusion Reaction / Comment(s): Pt has received blood in past without reaction-2010 Date of Last Stent Placement:: 03/28/2015 Past Psychological History: Depression Smoking Status: Former smoker Past Alcohol Use History: None Reported Past Drug Use History: None Reported - Past Family History Mother Family Medical History: Osteoarthritis (OA), Pneumonia Additional Family Medical History / Comment(s): osteoporosis. arthroscopy surgery for knee Father Family Medical History: Liver Disease, Renal Disease Additional Family Medical History / Comment(s): triple heart bypass. liver transplant. aortic aneursym Medications and Allergies Home Medications Medication Instructions Recorded Confirmed Type Sertraline [Zoloft] 100 mg PO DAILY 10/19/13 11/20/19 History Nitroglycerin Sl Tabs [Nitrostat] 0.4 mg SUBLINGUAL Q5M PRN #30 tab 12/03/14 11/20/19 Rx Atorvastatin [Lipitor] 80 mg PO HS 03/25/15 11/20/19 History Levothyroxine Sodium [Synthroid] 137 mcg PO DAILY 03/25/15 11/20/19 History Allopurinol [Zyloprim] 100 mg PO DAILY 12/17/17 11/20/19 History Apixaban [Eliquis] 5 mg PO BID tab 06/03/18 11/20/19 Rx Furosemide [Lasix] 60 mg PO BID@0900,2100 11/05/19 11/20/19 History Insulin Detemir [Levemir Flextouch] 40 units SQ HS 11/05/19 11/20/19 History Metolazone [Zaroxolyn] 2.5 mg PO BID 11/05/19 11/20/19 History Potassium Chloride Oral Liquid 20 meq PO BID 11/05/19 11/20/19 History traMADol HCL 50 mg PO BID 11/05/19 11/20/19 History Bacitracin Oint 1 applic TOPICAL BID #1 applic 11/10/19 11/20/19 Rx Metoprolol Tartrate [Lopressor] 50 mg PO TID 30 Days #90 tab 11/10/19 11/20/19 Rx Midodrine [ProAmatine] 5 mg PO AC-BID 30 Days #60 tab 11/10/19 11/20/19 Rx Furosemide [Lasix] 20 mg PO DAILY@1200 11/20/19 11/20/19 History Gabapentin [Neurontin] 300 mg PO DAILY 11/20/19 11/20/19 History Allergies Allergy/AdvReac Type Severity Reaction Status Date / Time adhesive Allergy "PLASTIC Verified 11/20/19 09:01 TAPE PEELS SKIN,PAPER TAPE IS OK" linezolid Allergy Unknown Verified 11/20/19 09:01 penicillin G Allergy Rash/Hives Verified 11/20/19 09:01 Cephalosporins AdvReac FEVER Verified 11/20/19 09:01 Physical Exam Vitals: Vital Signs Temp Pulse Pulse Resp BP BP Pulse Ox 11/21/19 04:00 97.6 F 82 18 114/67 96 11/21/19 00:00 97.6 F 85 18 97/57 99 11/20/19 20:00 97.8 F 90 18 102/61 98 11/20/19 15:29 107 H 18 11/20/19 15:27 107 H 18 106/73 100 11/20/19 12:16 98.3 F 105 H 18 99/70 98 11/20/19 11:50 98.2 F 101 H 18 133/82 99 11/20/19 09:25 125 H 18 115/79 100 11/20/19 08:57 98.8 F 90 18 101/70 95 Intake and Output 11/20/19 11/21/19 11/21/19 22:59 06:59 14:59 Intake Total 1274 Output Total 850 1974 Balance Intake: IV 800 0.9 800 Oral 474 Output: Urine 850 1974 Other: Voiding Method Urinal Urinal # Voids 2 1 Weight 133 kg Results 11/20/19 09:25 11/21/19 06:17 Cardiac Enzymes 11/20/19 11/20/19 11/20/19 Range/Units 09:25 09:25 14:59 AST 39 (17-59) U/L Troponin I <0.012 <0.012 (0.000-0.034) ng/mL 11/20/19 Range/Units 21:26 AST (17-59) U/L Troponin I 0.013 (0.000-0.034) ng/mL Coagulation 11/20/19 Range/Units 09:25 PT 10.6 (9.0-12.0) sec APTT 32.9 H (22.0-30.0) sec CBC 11/20/19 Range/Units 09:25 WBC 8.6 (3.8-10.6) k/uL RBC 5.07 (4.30-5.90) m/uL Hgb 14.4 (13.0-17.5) gm/dL Hct 42.2 (39.0-53.0) % Plt Count 130 L (150-450) k/uL Comprehensive Metabolic Panel 11/20/19 11/21/19 Range/Units 09:25 06:17 Sodium 130 L 136 L (137-145) mmol/L Potassium 2.9 L 3.2 L (3.5-5.1) mmol/L Chloride 80 L 90 L (98-107) mmol/L Carbon Dioxide 38 H 37 H (22-30) mmol/L BUN 85 H 65 H (9-20) mg/dL Creatinine 1.82 H 1.45 H (0.66-1.25) mg/dL Glucose 233 H 138 H (74-99) mg/dL Calcium 9.8 9.5 (8.4-10.2) mg/dL AST 39 (17-59) U/L ALT 28 (4-49) U/L Alkaline Phosphatase 110 (38-126) U/L Total Protein 7.7 (6.3-8.2) g/dL Albumin 4.0 (3.5-5.0) g/dL Current Medications Generic Name Dose Route Start Last Admin Trade Name Freq PRN Reason Stop Dose Admin Acetaminophen 650 mg 11/20/19 15:11 11/20/19 23:10 Tylenol Tab PO 650 mg Q6HR PRN Administration Mild Pain or Fever > 100.5 Al Hydroxide/Mg Hydroxide 15 ml 11/20/19 15:11 Maalox PO Q6HR PRN Indigestion Allopurinol 100 mg 11/21/19 09:00 Zyloprim PO DAILY ZURI Alprazolam 0.25 mg 11/20/19 15:11 Xanax PO Q6HR PRN Anxiety Apixaban 5 mg 11/20/19 21:00 11/20/19 20:46 Eliquis PO 5 mg BID ZURI Administration Atorvastatin Calcium 80 mg 11/20/19 21:00 11/20/19 20:45 Lipitor PO 80 mg HS [facility] Administration Bacitracin 1 applic 11/20/19 21:00 11/20/19 20:48 Bacitracin Oint TOPICAL 1 applic BID [facility] Administration Calcium Carbonate/Glycine 1,000 mg 11/20/19 15:11 Tums PO Q4HR PRN Dyspepsia Furosemide 20 mg 11/21/19 12:00 Lasix PO DAILY@1200 ZURI Furosemide 60 mg 11/20/19 21:00 11/20/19 20:47 Lasix PO 60 mg BID@0900,2100 [facility] Administration Gabapentin 300 mg 11/21/19 09:00 Neurontin PO DAILY [facility] Insulin Aspart 0 unit 11/20/19 17:30 11/21/19 06:33 Novolog SQ 2 unit ACHS [facility] Administration Protocol Insulin Detemir 40 unit 11/20/19 21:00 11/20/19 20:54 Levemir SQ 40 unit HS [facility] Administration Lactulose 20 gm 11/20/19 15:11 Cephulac PO DAILY PRN Constipation Levothyroxine Sodium 137 mcg 11/21/19 06:30 11/21/19 06:34 Synthroid PO 137 mcg DAILY@0630 [facility] Administration Magnesium Hydroxide 2,400 mg 11/20/19 15:11 Milk Of Magnesia PO DAILY PRN Constipation Melatonin 3 mg 11/20/19 15:11 Melatonin PO HS PRN Insomnia Metolazone 2.5 mg 11/20/19 21:00 11/20/19 20:45 Zaroxolyn PO 2.5 mg BID [facility] Administration Metoprolol Tartrate 50 mg 11/20/19 16:00 11/20/19 20:45 Lopressor PO 50 mg TID [facility] Administration Midodrine 5 mg 11/20/19 17:30 11/21/19 06:34 Proamatine PO 5 mg AC-BID [facility] Administration Nitroglycerin 0.4 mg 11/20/19 15:10 Nitrostat SUBLINGUAL Q5M PRN Chest Pain Ondansetron HCl 4 mg 11/20/19 15:11 Zofran IVP Q8HR PRN Nausea And Vomiting Potassium Bicarbonate 20 meq 11/20/19 21:00 11/20/19 20:45 K-Lyte PO 20 meq BID [facility] Administration Sertraline HCl 100 mg 11/21/19 09:00 Zoloft PO DAILY ZURI Tramadol HCl 50 mg 11/20/19 15:15 11/20/19 16:19 Ultram PO 50 mg BID PRN Administration Mild Pain Intake and Output 11/20/19 11/21/19 11/21/19 22:59 06:59 14:59 Intake Total 1274 Output Total 850 1974 Balance 424 Intake: IV 800 0.9 800 Oral 474 Output: Urine 850 1974 Other: Voiding Method Urinal Urinal # Voids 2 1 Weight 133 kg 11/20/19 09:25 11/21/19 06:17
[2019-11-21] MEDS ORDERED: ALLOPURINOL 100 MG TAB PO SCH (09:00)
[2019-11-21] MEDS ORDERED: GABAPENTIN 300 MG CAP PO SCH (09:00)
[2019-11-21] MEDS ORDERED: SERTRALINE 100 MG TAB PO SCH (09:00)
[2019-11-21] MEDS: METOPROLOL TARTRATE 50 MG TAB PO SCH (09:12)
[2019-11-21] MEDS: APIXABAN 5 MG TAB PO SCH (09:12)
[2019-11-21] MEDS: FUROSEMIDE 20 MG TAB PO SCH (09:12)
[2019-11-21] MEDS: POTASSIUM BICARBONATE/CIT AC 20 MEQ TABLET.EFF PO SCH (09:12)
[2019-11-21] MEDS: traMADol 50 MG TAB PO PRN (09:18)
[2019-11-21] MEDS: METOLAZONE 2.5 MG TAB PO SCH (10:47)
[2019-11-21] MEDS: BACITRACIN 500 UNIT/GM OINT 28.4 GM TUBE TOPICAL SCH (10:48)
[2019-11-21 11:07] VITALS: BP 120/53; PULSE 95; TEMP 96.4
[2019-11-21 11:11] VITALS: RESP 18
[2019-11-21 11:40] LABS: Glucose,Whole Blood 167 mg/dL (75-99)
[2019-11-21] MEDS ORDERED: FUROSEMIDE 20 MG TAB PO SCH (12:00)
[2019-11-21] MEDS ORDERED: POTASSIUM CHLORIDE ER 20 MEQ TAB.ER PO STA (12:32)
--- NOTE | 2019-11-21 20:28 | P.DS ---
Providers Date of admission: 11/20/19 11:32 Expected date of discharge: 11/21/19 Attending physician: Vamshi Barrera Consults: 11/20/19 11:28 Consult Physician Routine Consulting Provider: [facility] Consult Reason/Comments: afib rvr Do you want consulting provider notified?: Yes Primary care physician: [facility] Course: Chief Complaint: Hypokalemia History of presenting complaint: This is a pleasant 49-year-old patient with extensive medical history. Patient follows with visiting physicians. Dr. Chaney. Chronic stable medical conditions include atrial fibrillation, diabetes with peripheral neuropathy, coronary artery disease with stent, COPD, UTI, hypertension, hyperlipidemia, chronic kidney disease,(s) sleep apnea, kidney stones,(s) sleep apnea does not use a device, multiple abdominal surgeries for hiatal hernia, repair prolonged hospitalizations also history of tracheostomy, peripheral arterial disease, diverticulosis,. 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 Normally uses a scooter oral walker to get about. Normally uses one pillow at night. Patient has breakdown of superficial skin on the abdominal wall from scratching. Patient was seen by his visiting physicians Dr. Chaney. Found to be severely hypokalemic. Patient had been feeling a bit weak and tired. Hence and all the ER. His appetite is fair. No change in bowel habit. No fever no chills. Admitted with hyperkalemia and some increase in atrial fibrillation rate. Seen by cardiology. replace electrolytes. No change in medications. Today-doing well. Keen to go home. Care was discussed with the patient. Consultation: Dr. David Hart-cardiology Physical examination: VITAL SIGNS: 96.4, 95, 16, 120/53, 98% on 4 L GENERAL: BMI 45.9, sitting up in bed, comfortable EYES: Pupils equal. Conjunctiva normal. HEENT: External appearance of nose and ears normal, oral cavity grossly normal. NECK: JVD unable to assess; masses not palpable. HEART: First and second heart sounds are normal; edema present. LUNGS: Respiratory rate increased; decreased breath sounds ABDOMEN: Soft, nontender, liver spleen not palpable, no masses palpable, distended, with superficial breakdown of skin. Dressing also present.. PSYCH: Alert and oriented x3; mood and affect normal. NEUROLOGICAL: Cranial nerves grossly intact; no facial asymmetry, power and sensation grossly intact. LYMPHATICS: No lymph nodes palpable in the axilla and neck EXTREMITIES: Pigmentation of the both lower extremity distally INVESTIGATIONS, reviewed in the clinical context: Potassium 3.2 creatinine 1.45 Previous testing: White count 8.6 hemoglobin 14.4 platelets 1:30 potassium 2.9 bun 85 creatinine 1.82 Labs from November 09 showed a bun of 68 and creatinine of 2.12 Assessment: -Persistent atrial flutter fibrillation with a rapid ventricular rate, POA -Severe hypokalemia-replaced, POA -chronic congestive heart exacerbation EF of 30-35% from May 2019, from underlying coronary artery disease, -Hyponatremia, likely from diuretics -Persistent atrial fibrillation -COPD in an ex-smoker -Chronic DVT chronically on anticoagulation -Hyperlipidemia -Essential hypertension -Chronic kidney disease stage III from diabetic nephropathy and hypertensive nephrosclerosis -Operative sleep apnea does not use a device -Hypothyroid -Peripheral arterial disease -Multiple abdominal wall hernia from prior surgery -Colonic diverticulosis -Morbid obesity BMI 44.6 -Diabetes mellitus type 2 chronically on insulin. With peripheral neuropathy Disposition: Home Patient Condition at Discharge: Stable Plan - Discharge Summary New Discharge Prescriptions: Continue Sertraline [Zoloft] 100 mg PO DAILY Nitroglycerin Sl Tabs [Nitrostat] 0.4 mg SUBLINGUAL Q5M PRN #30 tab PRN Reason: Chest Pain Levothyroxine Sodium [Synthroid] 137 mcg PO DAILY Atorvastatin [Lipitor] 80 mg PO HS Allopurinol [Zyloprim] 100 mg PO DAILY Apixaban [Eliquis] 5 mg PO BID tab Metolazone [Zaroxolyn] 2.5 mg PO BID Furosemide [Lasix] 60 mg PO BID@0900,2100 traMADol HCL 50 mg PO BID Bacitracin Oint 1 applic TOPICAL BID #1 applic Metoprolol Tartrate [Lopressor] 50 mg PO TID 30 Days #90 tab Midodrine [ProAmatine] 5 mg PO AC-BID 30 Days #60 tab Furosemide [Lasix] 20 mg PO DAILY@1200 Gabapentin [Neurontin] 300 mg PO DAILY Changed Potassium Chloride Oral Liquid 40 meq PO BID #0 Insulin Detemir [Levemir Flextouch] 50 units SQ HS #0 Discharge Medication List Sertraline [Zoloft] 100 mg PO DAILY 10/19/13 [History] Nitroglycerin Sl Tabs [Nitrostat] 0.4 mg SUBLINGUAL Q5M PRN #30 tab 12/03/14 [Rx] Atorvastatin [Lipitor] 80 mg PO HS 03/25/15 [History] Levothyroxine Sodium [Synthroid] 137 mcg PO DAILY 03/25/15 [History] Allopurinol [Zyloprim] 100 mg PO DAILY 12/17/17 [History] Apixaban [Eliquis] 5 mg PO BID tab 06/03/18 [Rx] Furosemide [Lasix] 60 mg PO BID@0900,2100 11/05/19 [History] Metolazone [Zaroxolyn] 2.5 mg PO BID 11/05/19 [History] traMADol HCL 50 mg PO BID 11/05/19 [History] Bacitracin Oint 1 applic TOPICAL BID #1 applic 11/10/19 [Rx] Metoprolol Tartrate [Lopressor] 50 mg PO TID 30 Days #90 tab 11/10/19 [Rx] Midodrine [ProAmatine] 5 mg PO AC-BID 30 Days #60 tab 11/10/19 [Rx] Furosemide [Lasix] 20 mg PO DAILY@1200 11/20/19 [History] Gabapentin [Neurontin] 300 mg PO DAILY 11/20/19 [History] Insulin Detemir [Levemir Flextouch] 50 units SQ HS #0 11/21/19 [Rx] Potassium Chloride Oral Liquid 40 meq PO BID #0 11/21/19 [Rx] Follow up Appointment(s)/Referral(s): Alvin Wood MD [STAFF PHYSICIAN] - 2 Weeks (please call the office saturday to make follow-up appointment ) Eleazar Bhatt MD [Primary Care Provider] - 1-2 days (Call the office saturday to make a follow-up appointment ) Patient Instructions/Handouts: A-fib (Atrial Fibrillation) (DC), Chronic Kidney Disease (DC) Activity/Diet/Wound Care/Special Instructions: Basic Metabolic Panel -5 days - follow up with primary care Discharge Disposition: HOME SELF-CARE
== END 2019-11-21 16:35 | disposition home or self-care (01) | DRG 641 ==
LOC: EC 08:48 → 3SCARD 11:32
PROVIDERS: ADMIT Hospitalist; ATTEND Hospitalist
DX: E87.6 Hypokalemia (principal); I13.0 Hypertensive heart and chronic kidney disease with heart failure and stage 1 through stage 4 chronic kidney disease, or unspecified chronic kidney disease; I48.19 Other persistent atrial fibrillation; I48.92 Unspecified atrial flutter; I50.22 Chronic systolic (congestive) heart failure; Z68.41 Body mass index [BMI] 40.0-44.9, adult; N18.3 Chronic kidney disease, stage 3 (moderate); E11.22 Type 2 diabetes mellitus with diabetic chronic kidney disease; E11.42 Type 2 diabetes mellitus with diabetic polyneuropathy; E11.51 Type 2 diabetes mellitus with diabetic peripheral angiopathy without gangrene; E66.01 Morbid (severe) obesity due to excess calories; J44.9 Chronic obstructive pulmonary disease, unspecified; E78.5 Hyperlipidemia, unspecified; E03.9 Hypothyroidism, unspecified; E86.0 Dehydration; Z11.59 Encounter for screening for other viral diseases; T50.3X6A Underdosing of electrolytic, caloric and water-balance agents, initial encounter; Z91.128 Patient's intentional underdosing of medication regimen for other reason; T50.2X5A Adverse effect of carbonic-anhydrase inhibitors, benzothiadiazides and other diuretics, initial encounter; E87.1 Hypo-osmolality and hyponatremia; F32.9 Major depressive disorder, single episode, unspecified; I25.10 Atherosclerotic heart disease of native coronary artery without angina pectoris; I25.2 Old myocardial infarction; K43.9 Ventral hernia without obstruction or gangrene; K57.30 Diverticulosis of large intestine without perforation or abscess without bleeding; G47.33 Obstructive sleep apnea (adult) (pediatric); D50.9 Iron deficiency anemia, unspecified; Z79.01 Long term (current) use of anticoagulants; Z79.4 Long term (current) use of insulin; Z79.890 Hormone replacement therapy; Z79.899 Other long term (current) drug therapy; Z86.14 Personal history of Methicillin resistant Staphylococcus aureus infection; Z87.440 Personal history of urinary (tract) infections; Z95.5 Presence of coronary angioplasty implant and graft; Z87.891 Personal history of nicotine dependence; Z87.442 Personal history of urinary calculi; Z88.0 Allergy status to penicillin; Z86.718 Personal history of other venous thrombosis and embolism; Z88.1 Allergy status to other antibiotic agents; Z91.048 Other nonmedicinal substance allergy status; Z90.49 Acquired absence of other specified parts of digestive tract; Z82.62 Family history of osteoporosis; Z82.61 Family history of arthritis; Z82.49 Family history of ischemic heart disease and other diseases of the circulatory system; Z83.79 Family history of other diseases of the digestive system
CPT/HCPCS: 36415; 71045; 80048; 80053; 81003; 83735; 83880; 84484; 85025; 85610; 85730; 93005; 96365; 99285

== ENCOUNTER 2019-11-23 17:04 | Inpatient (IN) | payer MEDICARE, OTHER ==
[2019-11-23] MEDS ORDERED: SODIUM CHLORIDE 0.9% 500 ML 500 ML IV STA (17:50)
[2019-11-23] MEDS ORDERED: SODIUM CHLORIDE 0.9% 1,000 ML IV STA (17:50)
--- NOTE | 2019-11-23 17:52 | ED ---
Weakness HPI - General Chief complaint: Weakness Stated complaint: Weakness Time Seen by Provider: 11/23/19 17:05 Source: patient, RN notes reviewed, old records reviewed Mode of arrival: ambulatory Limitations: no limitations - History of Present Illness Initial comments: This is a 41-year-old male DF for evaluation. Presents today for evaluation of weakness not feeling well no improvement since last discharge. Patient has no recent travel history no known significant sick contacts. Patient states she does not feel well he has short of breath feels like his heart racing feels weak and dehydrated increasing leg swelling and worsening overall pain MD Complaint: generalized weakness -: days(s) Location: generalized Severity: moderate Severity scale (1-10): 6 Consistency: constant Improves with: none Worsens with: none Context: recent illness, history of similar Associated Symptoms: chest pain, loss of appetite, shortness of breath - Related Data Home Medications Medication Instructions Recorded Confirmed Sertraline [Zoloft] 100 mg PO DAILY 10/19/13 11/23/19 Atorvastatin [Lipitor] 80 mg PO HS 03/25/15 11/23/19 Levothyroxine Sodium [Synthroid] 137 mcg PO DAILY 03/25/15 11/23/19 Allopurinol [Zyloprim] 100 mg PO DAILY 12/17/17 11/23/19 Furosemide [Lasix] 60 mg PO BID@0900,2100 11/05/19 11/23/19 Metolazone [Zaroxolyn] 2.5 mg PO BID 11/05/19 11/23/19 traMADol HCL 50 mg PO BID 11/05/19 11/23/19 Furosemide [Lasix] 20 mg PO DAILY@1200 11/20/19 11/23/19 Gabapentin [Neurontin] 300 mg PO DAILY 11/20/19 11/23/19 Previous Rx's Medication Instructions Recorded Nitroglycerin Sl Tabs [Nitrostat] 0.4 mg SUBLINGUAL Q5M PRN #30 tab 12/03/14 Apixaban [Eliquis] 5 mg PO BID tab 06/03/18 Bacitracin Oint 1 applic TOPICAL BID #1 applic 11/10/19 Metoprolol Tartrate [Lopressor] 50 mg PO TID 30 Days #90 tab 11/10/19 Midodrine [ProAmatine] 5 mg PO AC-BID 30 Days #60 tab 11/10/19 Insulin Detemir [Levemir Flextouch] 50 units SQ HS #0 11/21/19 Potassium Chloride Oral Liquid 40 meq PO BID #0 11/21/19 Allergies Allergy/AdvReac Type Severity Reaction Status Date / Time adhesive Allergy "PLASTIC Verified 11/23/19 18:01 TAPE PEELS SKIN,PAPER TAPE IS OK" linezolid Allergy Unknown Verified 11/23/19 18:01 penicillin G Allergy Rash/Hives Verified 11/23/19 18:01 Cephalosporins AdvReac FEVER Verified 11/23/19 18:01 Review of Systems ROS Statement: Those systems with pertinent positive or pertinent negative responses have been documented in the HPI. ROS Other: All systems not noted in ROS Statement are negative. Past Medical History Past Medical History: Atrial Fibrillation, Asthma, Coronary Artery Disease (CAD), Chest Pain / Angina, Heart Failure, COPD, Deep Vein Thrombosis (DVT), Hyperlipidemia, Hypertension, Myocardial Infarction (RI), Renal Disease, Sleep Apnea/CPAP/BIPAP, Thyroid Disorder, Vascular Disorder Additional Past Medical History / Comment(s): CHF, tracheobronchitis, CKD stage III, kidney stones, DVT L leg in 2004, KAMRYN without device use, colon abscess with bowel resection, multiple abdominal surgeries for a hiatal hernia that was complicated by prolonged hospitalization and prolonged ventilator dependent respiratory failure requiring a tracheostomy tube insertion, pvd-lower legs discolored/edematous, diverticular disease, chronic iron deficiency anemia, vertigo at times, Last Myocardial Infarction Date:: History of Any Multi-Drug Resistant Organisms: MRSA Date of last positivie culture/infection: 02/01/15 MDRO Source:: Abdomen Past Surgical History: Bowel Resection, Heart Catheterization With Stent, Hernia Repair Additional Past Surgical History / Comment(s): Colonoscopies, heart stents x 4, bowel resection with colostomy and colostomy reversal (removed a foot of pts colon)-2003, hernia repair with skin grafts and 2 fistula repairs (hospitalized for 1 year @[facility])-2010 MRSA 2014 in wounds. Past Anesthesia/Blood Transfusion Reactions: No Reported Reaction Additional Past Anesthesia/Blood Transfusion Reaction / Comment(s): Pt has received blood in past without reaction-2010 Date of Last Stent Placement:: 03/28/2015 Past Psychological History: Depression Smoking Status: Former smoker Past Alcohol Use History: None Reported Past Drug Use History: None Reported - Past Family History Mother Family Medical History: Osteoarthritis (OA), Pneumonia Additional Family Medical History / Comment(s): osteoporosis. arthroscopy surgery for knee Father Family Medical History: Liver Disease, Renal Disease Additional Family Medical History / Comment(s): triple heart bypass. liver transplant. aortic aneursym General Exam Limitations: no limitations General appearance: alert, in no apparent distress Head exam: Present: atraumatic, normocephalic, normal inspection Eye exam: Present: normal appearance, PERRL, EOMI. Absent: scleral icterus, conjunctival injection, periorbital swelling ENT exam: Present: normal exam, mucous membranes moist Neck exam: Present: normal inspection. Absent: tenderness, meningismus, lymphadenopathy Respiratory exam: Present: normal lung sounds bilaterally. Absent: respiratory distress, wheezes, rales, rhonchi, stridor Cardiovascular Exam: Present: normal rhythm, tachycardia, normal heart sounds. Absent: systolic murmur, diastolic murmur, rubs, gallop, clicks GI/Abdominal exam: Present: soft, normal bowel sounds. Absent: distended, tenderness, guarding, rebound, rigid Extremities exam: Present: normal inspection, full ROM, normal capillary refill. Absent: tenderness, pedal edema, joint swelling, calf tenderness Back exam: Present: normal inspection Neurological exam: Present: alert, oriented X3, CN II-XII intact Psychiatric exam: Present: normal affect, normal mood Skin exam: Present: warm, dry, intact, normal color. Absent: rash Course Vital Signs 11/23/19 11/23/19 11/23/19 17:06 17:30 19:00 Temperature 98.8 F Pulse Rate 115 H 114 H 112 H Respiratory 18 12 17 Rate Blood Pressure 111/88 111/88 115/79 O2 Sat by Pulse 98 99 98 Oximetry 11/23/19 11/23/19 19:30 20:00 Temperature Pulse Rate 122 H 125 H Respiratory 18 19 Rate Blood Pressure 109/75 109/74 O2 Sat by Pulse 99 99 Oximetry - Reevaluation(s) Reevaluation #1: 11/23/19 21:02 Medical record and prior hospitalization are reviewed Reevaluation #2: 11/23/19 21:02 Patient states he feels like he was supposed to go to rehab after last hospitalization Reevaluation #3: 11/23/19 21:02 heart rate is improving on medication - Consultations Consultation #1: spoke with Dr. power was agreeable to admit EKG Findings - EKG Comments: EKG Findings:: EKG shows A. fib of 124, QRS 94 QTc 520 Medical Decision Making - Medical Decision Making 49 male DF for evaluation of weakness in nature fibrillation with RVR dehydration and renal failure. Patient be admitted for continued evaluation monitoring, treatment and possible rehabilitation - Lab Data Result diagrams: 11/23/19 17:37 11/23/19 17:37 Lab Results 11/23/19 11/23/19 11/23/19 Range/Units 17:34 17:37 17:37 WBC 7.1 (3.8-10.6) k/uL RBC 5.18 (4.30-5.90) m/uL Hgb 14.0 (13.0-17.5) gm/dL Hct 43.3 (39.0-53.0) % MCV 83.6 (80.0-100.0) fL MCH 27.1 (25.0-35.0) pg MCHC 32.4 (31.0-37.0) g/dL RDW 19.0 H (11.5-15.5) % Plt Count 139 L (150-450) k/uL Neutrophils % 64 % Lymphocytes % 21 % Monocytes % 9 % Eosinophils % 4 % Basophils % 1 % Neutrophils # 4.5 (1.3-7.7) k/uL Lymphocytes # 1.5 (1.0-4.8) k/uL Monocytes # 0.7 (0-1.0) k/uL Eosinophils # 0.3 (0-0.7) k/uL Basophils # 0.1 (0-0.2) k/uL Poikilocytosis Slight Anisocytosis Slight Microcytosis Slight PT (9.0-12.0) sec INR (<1.2) APTT 31.6 H (22.0-30.0) sec Sodium (137-145) mmol/L Potassium (3.5-5.1) mmol/L Chloride (98-107) mmol/L Carbon Dioxide (22-30) mmol/L Anion Gap mmol/L BUN (9-20) mg/dL Creatinine (0.66-1.25) mg/dL Est GFR (CKD-EPI)AfAm (>60 ml/min/1.73 sqM) Est GFR (CKD-EPI)NonAf (>60 ml/min/1.73 sqM) Glucose (74-99) mg/dL Lactic Ac Sepsis Rflx Plasma Lactic Acid Isael (0.7-2.0) mmol/L Calcium (8.4-10.2) mg/dL Phosphorus 2.6 (2.5-4.5) mg/dL Magnesium (1.6-2.3) mg/dL Total Bilirubin (0.2-1.3) mg/dL AST (17-59) U/L ALT (4-49) U/L Alkaline Phosphatase (38-126) U/L Creatine Kinase (55-170) U/L Troponin I (0.000-0.034) ng/mL NT-Pro-B Natriuret Pep pg/mL Total Protein (6.3-8.2) g/dL Albumin (3.5-5.0) g/dL TSH 2.110 (0.465-4.680) mIU/L Urine Color Urine Appearance (Clear) Urine pH (5.0-8.0) Ur Specific [place] (1.001-1.035) Urine Protein (Negative) Urine Glucose (UA) (Negative) Urine Ketones (Negative) Urine Blood (Negative) Urine Nitrite (Negative) Urine Bilirubin (Negative) Urine Urobilinogen (<2.0) mg/dL Ur Leukocyte Esterase (Negative) Urine RBC (0-5) /hpf Urine WBC (0-5) /hpf Ur Squamous Epith Cells (0-4) /hpf Hyaline Casts (0-2) /lpf 11/23/19 11/23/19 11/23/19 Range/Units 17:37 17:37 17:37 WBC (3.8-10.6) k/uL RBC (4.30-5.90) m/uL Hgb (13.0-17.5) gm/dL Hct (39.0-53.0) % MCV (80.0-100.0) fL MCH (25.0-35.0) pg MCHC (31.0-37.0) g/dL RDW (11.5-15.5) % Plt Count (150-450) k/uL Neutrophils % % Lymphocytes % % Monocytes % % Eosinophils % % Basophils % % Neutrophils # (1.3-7.7) k/uL Lymphocytes # (1.0-4.8) k/uL Monocytes # (0-1.0) k/uL Eosinophils # (0-0.7) k/uL Basophils # (0-0.2) k/uL Poikilocytosis Anisocytosis Microcytosis PT (9.0-12.0) sec INR (<1.2) APTT (22.0-30.0) sec Sodium 132 L (137-145) mmol/L Potassium 2.8 L (3.5-5.1) mmol/L Chloride 84 L (98-107) mmol/L Carbon Dioxide 37 H (22-30) mmol/L Anion Gap 11 mmol/L BUN 61 H (9-20) mg/dL Creatinine 1.88 H (0.66-1.25) mg/dL Est GFR (CKD-EPI)AfAm 48 (>60 ml/min/1.73 sqM) Est GFR (CKD-EPI)NonAf 42 (>60 ml/min/1.73 sqM) Glucose 129 H (74-99) mg/dL Lactic Ac Sepsis Rflx Plasma Lactic Acid Isael 2.7 H* (0.7-2.0) mmol/L Calcium 9.5 (8.4-10.2) mg/dL Phosphorus (2.5-4.5) mg/dL Magnesium 1.6 (1.6-2.3) mg/dL Total Bilirubin 1.3 (0.2-1.3) mg/dL AST 31 (17-59) U/L ALT 21 (4-49) U/L Alkaline Phosphatase 99 (38-126) U/L Creatine Kinase 24 L (55-170) U/L Troponin I (0.000-0.034) ng/mL NT-Pro-B Natriuret Pep 4490 pg/mL Total Protein 7.5 (6.3-8.2) g/dL Albumin 3.9 (3.5-5.0) g/dL TSH (0.465-4.680) mIU/L Urine Color Urine Appearance (Clear) Urine pH (5.0-8.0) Ur Specific [place] (1.001-1.035) Urine Protein (Negative) Urine Glucose (UA) (Negative) Urine Ketones (Negative) Urine Blood (Negative) Urine Nitrite (Negative) Urine Bilirubin (Negative) Urine Urobilinogen (<2.0) mg/dL Ur Leukocyte Esterase (Negative) Urine RBC (0-5) /hpf Urine WBC (0-5) /hpf Ur Squamous Epith Cells (0-4) /hpf Hyaline Casts (0-2) /lpf 11/23/19 11/23/19 11/23/19 Range/Units 18:31 18:43 18:43 WBC (3.8-10.6) k/uL RBC (4.30-5.90) m/uL Hgb (13.0-17.5) gm/dL Hct (39.0-53.0) % MCV (80.0-100.0) fL MCH (25.0-35.0) pg MCHC (31.0-37.0) g/dL RDW (11.5-15.5) % Plt Count (150-450) k/uL Neutrophils % % Lymphocytes % % Monocytes % % Eosinophils % % Basophils % % Neutrophils # (1.3-7.7) k/uL Lymphocytes # (1.0-4.8) k/uL Monocytes # (0-1.0) k/uL Eosinophils # (0-0.7) k/uL Basophils # (0-0.2) k/uL Poikilocytosis Anisocytosis Microcytosis PT 10.7 (9.0-12.0) sec INR 1.0 (<1.2) APTT (22.0-30.0) sec Sodium (137-145) mmol/L Potassium (3.5-5.1) mmol/L Chloride (98-107) mmol/L Carbon Dioxide (22-30) mmol/L Anion Gap mmol/L BUN (9-20) mg/dL Creatinine (0.66-1.25) mg/dL Est GFR (CKD-EPI)AfAm (>60 ml/min/1.73 sqM) Est GFR (CKD-EPI)NonAf (>60 ml/min/1.73 sqM) Glucose (74-99) mg/dL Lactic Ac Sepsis Rflx Y Plasma Lactic Acid Isael (0.7-2.0) mmol/L Calcium (8.4-10.2) mg/dL Phosphorus (2.5-4.5) mg/dL Magnesium (1.6-2.3) mg/dL Total Bilirubin (0.2-1.3) mg/dL AST (17-59) U/L ALT (4-49) U/L Alkaline Phosphatase (38-126) U/L Creatine Kinase (55-170) U/L Troponin I <0.012 (0.000-0.034) ng/mL NT-Pro-B Natriuret Pep pg/mL Total Protein (6.3-8.2) g/dL Albumin (3.5-5.0) g/dL TSH (0.465-4.680) mIU/L Urine Color Urine Appearance (Clear) Urine pH (5.0-8.0) Ur Specific [place] (1.001-1.035) Urine Protein (Negative) Urine Glucose (UA) (Negative) Urine Ketones (Negative) Urine Blood (Negative) Urine Nitrite (Negative) Urine Bilirubin (Negative) Urine Urobilinogen (<2.0) mg/dL Ur Leukocyte Esterase (Negative) Urine RBC (0-5) /hpf Urine WBC (0-5) /hpf Ur Squamous Epith Cells (0-4) /hpf Hyaline Casts (0-2) /lpf 11/23/19 Range/Units 19:20 WBC (3.8-10.6) k/uL RBC (4.30-5.90) m/uL Hgb (13.0-17.5) gm/dL Hct (39.0-53.0) % MCV (80.0-100.0) fL MCH (25.0-35.0) pg MCHC (31.0-37.0) g/dL RDW (11.5-15.5) % Plt Count (150-450) k/uL Neutrophils % % Lymphocytes % % Monocytes % % Eosinophils % % Basophils % % Neutrophils # (1.3-7.7) k/uL Lymphocytes # (1.0-4.8) k/uL Monocytes # (0-1.0) k/uL Eosinophils # (0-0.7) k/uL Basophils # (0-0.2) k/uL Poikilocytosis Anisocytosis Microcytosis PT (9.0-12.0) sec INR (<1.2) APTT (22.0-30.0) sec Sodium (137-145) mmol/L Potassium (3.5-5.1) mmol/L Chloride (98-107) mmol/L Carbon Dioxide (22-30) mmol/L Anion Gap mmol/L BUN (9-20) mg/dL Creatinine (0.66-1.25) mg/dL Est GFR (CKD-EPI)AfAm (>60 ml/min/1.73 sqM) Est GFR (CKD-EPI)NonAf (>60 ml/min/1.73 sqM) Glucose (74-99) mg/dL Lactic Ac Sepsis Rflx Plasma Lactic Acid Isael (0.7-2.0) mmol/L Calcium (8.4-10.2) mg/dL Phosphorus (2.5-4.5) mg/dL Magnesium (1.6-2.3) mg/dL Total Bilirubin (0.2-1.3) mg/dL AST (17-59) U/L ALT (4-49) U/L Alkaline Phosphatase (38-126) U/L Creatine Kinase (55-170) U/L Troponin I (0.000-0.034) ng/mL NT-Pro-B Natriuret Pep pg/mL Total Protein (6.3-8.2) g/dL Albumin (3.5-5.0) g/dL TSH (0.465-4.680) mIU/L Urine Color Yellow Urine Appearance Clear (Clear) Urine pH 6.5 (5.0-8.0) Ur Specific [place] 1.014 (1.001-1.035) Urine Protein 1+ H (Negative) Urine Glucose (UA) Negative (Negative) Urine Ketones Negative (Negative) Urine Blood Small H (Negative) Urine Nitrite Negative (Negative) Urine Bilirubin Negative (Negative) Urine Urobilinogen <2.0 (<2.0) mg/dL Ur Leukocyte Esterase Negative (Negative) Urine RBC 28 H (0-5) /hpf Urine WBC 1 (0-5) /hpf Ur Squamous Epith Cells <1 (0-4) /hpf Hyaline Casts 1 (0-2) /lpf - Radiology Data Radiology results: report reviewed (Chest x-ray is negative for acute disease), image reviewed Disposition Clinical Impression: Acute on chronic diastolic CHF (congestive heart failure), Severe obesity (BMI >= 40), Venous stasis ulcer of left lower leg with edema of left lower leg, ARF (acute renal failure), Atrial fibrillation with RVR Disposition: ADMITTED IP TO THIS HOSP Condition: Fair Is patient prescribed a controlled substance at d/c from ED?: No Referrals: Eleazar Bhatt MD [Primary Care Provider] - 1-2 days
[2019-11-23 18:12] LABS: Albumin 3.9 g/dL (3.5-5.0); Anisocytosis Slight; Basophils # (A) 0.1 k/uL (0-0.2); Basophils % (A) 1 %; Calcium 9.5 mg/dL (8.4-10.2); Eosinophils # (A) 0.3 k/uL (0-0.7); Eosinophils % (A) 4 %; HCT 43.3 % (39.0-53.0); Lymphocytes # (A) 1.5 k/uL (1.0-4.8); Lymphocytes % (A) 21 %; MCH 27.1 pg (25.0-35.0); MCHC 32.4 g/dL (31.0-37.0); MCV 83.6 fL (80.0-100.0); Magnesium 1.6 mg/dL (1.6-2.3); Mean Platelet Volume 9.1; Microcytosis Slight; Monocytes # (A) 0.7 k/uL (0-1.0); Monocytes % (A) 9 %; Neutrophils # (A) 4.5 k/uL (1.3-7.7); Neutrophils % (A) 64 %; Platelet Count 139 k/uL (150-450); Poikilocytosis Slight; Potassium 2.8 mmol/L (3.5-5.1); RBC 5.18 m/uL (4.30-5.90); Total Bilirubin 1.3 mg/dL (0.2-1.3); Total Protein 7.5 g/dL (6.3-8.2); WBC 7.1 k/uL (3.8-10.6)
--- NOTE | 2019-11-23 18:22 | XR ---
EXAMINATION TYPE: XR chest 2V DATE OF EXAM: 11/23/2019 COMPARISON: 11/20/2019 HISTORY: Chest pain weakness TECHNIQUE: FINDINGS: There is mild blunting left costophrenic angle. Heart size is normal. There is no heart virgie lure. There are no hilar masses. There are chest leads. There is no pulmonary consolidation. IMPRESSION: There is some mild pleural diaphragmatic scarring at the lateral left lung base unchanged compared to last exam. No heart failure.
[2019-11-23 19:06] LABS: Phosphorus 2.6 mg/dL (2.5-4.5)
[2019-11-23 19:13] LABS: Prothrombin Time 10.7 sec (9.0-12.0)
[2019-11-23 19:49] LABS: Appearance,Urine Clear (Clear); Bilirubin,Urine Negative (Negative); Blood,Urine Small (Negative); Color,Urine Yellow; Glucose,Urine (UA) Negative (Negative); Hyaline Casts,Urine 1 /lpf (0-2); Ketones,Urine Negative (Negative); Leukocyte Esterase,Urine Negative (Negative); Nitrite,Urine Negative (Negative); PH, Urine 6.5 (5.0-8.0); Protein,Urine 1+ (Negative); RBC,Urine 28 /hpf (0-5); Specific Gravity,Urine 1.014 (1.001-1.035); Squamous Epithelial Cell,Urine <1 /hpf (0-4); Urobilinogen,Urine <2.0 mg/dL (<2.0); WBC,Urine 1 /hpf (0-5)
[2019-11-23] MEDS ORDERED: NITROGLYCERIN SL TABS 0.4 MG TAB SUBLINGUAL PRN (20:51)
[2019-11-23] MEDS ORDERED: DILTIAZEM DRIP BOLUS FROM BAG 1 MG SOLN IV ONE (20:55)
[2019-11-23] MEDS ORDERED: traMADol 50 MG TAB PO SCH (21:00)
[2019-11-23] MEDS ORDERED: DILTIAZEM 125 MG in SODIUM CHLORIDE 0.9% 100 ML IV SCH (21:00)
[2019-11-23] MEDS ORDERED: POTASSIUM BICARBONATE/CIT AC 20 MEQ TABLET.EFF PO ONE (23:15)
[2019-11-23 23:55] LABS: Glucose,Whole Blood 182 mg/dL (75-99)
[2019-11-24] MEDS: INSULIN ASPART (NovoLOG) 100 UNIT/ML VIAL SQ SCH ×5 (00:27→21:39)
[2019-11-24] MEDS ORDERED: ACETAMINOPHEN TAB 325 MG TAB PO PRN (02:34)
[2019-11-24] MEDS: GABAPENTIN 300 MG CAP PO SCH (02:53)
[2019-11-24 03:34] LABS: Anisocytosis Slight; Basophils # (A) 0.1 k/uL (0-0.2); Basophils % (A) 2 %; Eosinophils # (A) 0.4 k/uL (0-0.7); Eosinophils % (A) 7 %; HCT 41.9 % (39.0-53.0); HGB 13.4 gm/dL (13.0-17.5); Lymphocytes # (A) 1.7 k/uL (1.0-4.8); Lymphocytes % (A) 28 %; MCH 26.8 pg (25.0-35.0); MCHC 31.9 g/dL (31.0-37.0); MCV 83.8 fL (80.0-100.0); Mean Platelet Volume 9.5; Monocytes # (A) 0.5 k/uL (0-1.0); Monocytes % (A) 7 %; Neutrophils # (A) 3.3 k/uL (1.3-7.7); Neutrophils % (A) 54 %; Platelet Count 131 k/uL (150-450); Poikilocytosis Slight
[2019-11-24 03:43] LABS: Calcium 8.7 mg/dL (8.4-10.2); Potassium 2.8 mmol/L (3.5-5.1)
[2019-11-24] MEDS: POTASSIUM BICARBONATE/CIT AC 20 MEQ TABLET.EFF NG-TUBE SCH ×3 (03:58→05:58)
[2019-11-24] MEDS: MIDODRINE 5 MG TAB PO SCH ×2 (06:11→17:43)
[2019-11-24] MEDS: LEVOTHYROXINE 137 MCG TAB PO SCH (06:11)
[2019-11-24] MEDS: traMADol 50 MG TAB PO PRN ×2 (06:12→21:40)
[2019-11-24 06:16] LABS: Glucose,Whole Blood 138 mg/dL (75-99)
[2019-11-24] MEDS: BACITRACIN 500 UNIT/GM OINT 28.4 GM TUBE TOPICAL SCH ×2 (08:20→21:39)
[2019-11-24] MEDS ORDERED: traMADol 50 MG TAB PO SCH (09:00)
[2019-11-24] MEDS ORDERED: METOLAZONE 2.5 MG TAB PO SCH ×2 (09:00)
[2019-11-24] MEDS: MAGNESIUM SULFATE-D5W PMX 1 GM in DEXTROSE/WATER 1 100ML.BAG IVPB SCH ×2 (09:22→11:20)
[2019-11-24] MEDS: APIXABAN 5 MG TAB PO SCH ×2 (09:23→21:39)
[2019-11-24] MEDS: ALLOPURINOL 100 MG TAB PO SCH (09:23)
[2019-11-24] MEDS: METOPROLOL TARTRATE 50 MG TAB PO SCH ×3 (09:23→21:39)
[2019-11-24] MEDS: SPIRONOLACTONE 25 MG TAB PO SCH (09:24)
[2019-11-24] MEDS: FUROSEMIDE 20 MG TAB PO SCH ×2 (09:24→21:39)
[2019-11-24] MEDS: SERTRALINE 100 MG TAB PO SCH (09:25)
--- NOTE | 2019-11-24 09:56 | CONS ---
CONSULTATION Mr. Cerna is a 49-year-old male who is followed by Dr. Uriel Wood, has a known history of coronary artery disease status post percutaneous revascularization, history of chronic kidney disease, chronic persistent atrial fibrillation who presented to the hospital with feeling weak. Patient was recently discharged from the hospital with hypokalemia and dehydration. He was not feeling well. He denied any chest pain. He denies any dizziness or palpitation. He is unaware of his atrial fibrillation. He had underwent an echocardiogram about a few weeks ago and was found to have an ejection fraction of 40% to 45% The patient has underwent stenting in [address] Uriel Wood and underwent stenting of the LAD and subsequently the circumflex. He has occlusion of the distal LAD. He presented in 2015 with an acute myocardial infarction. The patient is not very active physically. He has dyspnea on exertion. There is no chest pain. He has chronic peripheral edema, no clear PND nor orthopnea. He has chronic tobacco use. His coronary risk factors are remarkable for the smoking. He has a history of hypertension and hyperlipidemia, is nondiabetic. MEDICATION: Include Eliquis 5 mg twice a day, Lipitor 80 mg daily, Lasix, Neurontin, insulin, Zaroxolyn 2.5 mg twice a day, Lopressor 50 mg 3 times a day, ProAmatine, potassium, sertraline. REVIEW OF SYSTEMS: Persistent had dyspnea on exertion, chronic tobacco use. No recent fever. GI SYSTEM: No recent GI bleed. No peptic ulcer disease. SYSTEM: No dysuria or hematuria. NERVOUS SYSTEM: No history of stroke or seizure. PHYSICAL EXAMINATION: He is a 49-year-old male, alert, oriented, in no apparent distress, obese, blood pressure 102/70 with a heart rate in the 90s. HEAD: Normocephalic. EYES: Sclerae nonicteric. NECK: Good upstroke, no bruit. Neck with tracheostomy scar noted. LUNGS: With decreased air exchange, no wheezes. HEART: Irregular, regular, S1, S2. No S3. No rub. ABDOMEN: Soft, obese, nontender. Positive bowel sounds. No organomegaly. EXTREMITIES: With chronic stasis and trace to 1+ edema. LAB DATA: Revealed a potassium of 2.8, BUN and creatinine 61 and 1.88. Troponin less than 0.012. NT proBNP of 4490, hemoglobin of 14. His BUN creatinine 58 and 1.72 today. His LDL is 59. His renal function are stable comparison to prior workup. His potassium has been on the low side. His EKG revealed atrial fibrillation with nonspecific ST-T wave changes. His chest x-ray shows no acute changes and no evidence of heart failure. IMPRESSION: 1. Atrial fibrillation, anticoagulated, chronic with episode of rapid ventricular response. 2. History of mild cardiomyopathy with prior myocardial infarction and percutaneous revascularization. 3. Hypokalemia. 4. Chronic kidney disease. 5. Obesity. 6. Chronic tobacco use. 7. Prior history of noncompliance. RECOMMENDATION: I would continue present therapy. I will stop the IV Cardizem. Follow his renal function. I will add spironolactone to his regimen, follow his renal function closely. See if that will normalize his potassium without affecting his renal function. Will increase his activity gradually and depending on his progress, further recommendation will be made. Thank you for this consult. We will follow with you and dictate. EUNICE / IJN: [id number] /
--- NOTE | 2019-11-24 11:49 | ECHOF ---
Referral Reason:afib MEASUREMENTS -------- HEIGHT: 180.3 cm WEIGHT: 142.0 kg BP: RVIDd: 2.7 cm (< 3.3) IVSd: 1.3 cm (0.6 - 1.1) LVIDd: 4.4 cm (3.9 - 5.3) LVPWd: 1.5 cm (0.6 - 1.1) IVSs: 1.7 cm LVIDs: 3.5 cm LVPWs: 2.2 cm Ao Diam: 2.8 cm (2.0 - 3.7) LA Diam: 5.4 cm (2.7 - 3.8) MV EXCURSION: 20.043 mm (> 18.000) MV EF SLOPE: 162 mm/s (70 - 150) EPSS: 0.7 cm MV E Loco: 0.89 m/s MV DecT: 169 ms MV A Loco: 0.29 m/s MV E/A Ratio: 3.04 RAP: 5.00 mmHg RVSP: 8.66 mmHg FINDINGS -------- This was a technically difficult study with suboptimal views. The left ventricular size is normal. There is moderate concentric left ventricular hypertrophy. O verall left ventricular systolic function is low-normal with, an EF between 50 - 55 %. The right ventricle is normal in size. The left atrium is moderately dilated. The right atrial size is normal. Lumason used The aortic valve was not well visualized. The mitral valve is normal. Mild mitral regurgitation is present. The tricuspid valve appears structurally normal. Mild tricuspid regurgitation present. Right vent ricular systolic pressure is normal at < 35 mmHg. There is no pulmonic regurgitation present. The aortic root size is normal. IVC Not well visulized. There is no pericardial effusion. CONCLUSIONS -------- 1. This was a technically difficult study with suboptimal views. 2. The left ventricular size is normal. 3. There is moderate concentric left ventricular hypertrophy. 4. Overall left ventricular systolic function is low-normal with, an EF between 50 - 55 %. 5. The right ventricle is normal in size. 6. The left atrium is moderately dilated. 7. The right atrial size is normal. 8. Lumason used 9. The aortic valve was not well visualized. 10. The mitral valve is normal. 11. Mild mitral regurgitation is present. 12. The tricuspid valve appears structurally normal. 13. Mild tricuspid regurgitation present. 14. Right ventricular systolic pressure is normal at < 35 mmHg. 15. There is no pulmonic regurgitation present. 16. The aortic root size is normal. 17. IVC Not well visulized. 18. There is no pericardial effusion. TAX EXPERT: Dari Tenorio RDCS
[2019-11-24] MEDS ORDERED: FUROSEMIDE 20 MG TAB PO SCH (12:00)
[2019-11-24 12:10] LABS: Glucose,Whole Blood 141 mg/dL (75-99)
--- NOTE | 2019-11-24 13:10 | P.CN ---
Psychiatric Consult - . Consult date: 11/24/19 Consult:: IDENTIFYING DATA: He is a 49-year-old single male admitted to the ICU for evaluation of new onset atrial fibrillation. The hospitalist was requested a psychiatry consult for depression. HISTORY OF PRESENT ILLNESS: I reviewed the medical record and interviewed the patient. He acknowledges feeling depressed and having intermittent wishes. He attributes depression to his multiple severe medical problems that began in 2007 with what he described as misdiagnose abscess of his colon. He said multiple hospitalizations and medical and surgical procedures including a 6 month hospitalization following the surgery for the colonic abscess and a one year surgery hospitalization at [facility] for surgical complications of hernia surgeries. He has diabetes and diabetic peripheral neuropathy. He's had myocardial infraction and percutaneous revascularization, chronic kidney disease and a new diagnosis of atrial fibrillation. He has felt more depressed since the of his father in 2009 and his mother last year. As a result of his medical problems he is unable to work. 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 He is unhappy that he is single and lives alone in the family home. His primary is prescribed Zoloft for treatment of depression and depressive symptoms. He is not involved with mental health services. He has never met with a therapist, counselor, social worker palliative care or psychologist past. He described feelings of depression and intermittent wishes during time of worsening health problems but denied suicidal ideation, plan or intent. He admitted to decreased energy, impairment in concentration, lack of motivation, fatigue and feelings of guilt. He denied experiencing persistent and uncontrolled anxiety. He denied panic attacks. He denied obsessions or compulsions. He denied experiencing periods of elevated mood or sustained irritability suggestive of aldo or hypomania. He denied experiencing auditory, visual or olfactory hallucinations, ideas reference, thought insertion, thought broadcasting or thought control. PAST PSYCHIATRIC HISTORY: He denied history of mental health treatment or psychiatric hospitalizations.. PAST MEDICAL HISTORY: See medical history and physical. ALLERGIES: Penicillins, cephalosporins, linezolid. SUBSTANCE USE HISTORY: He denied a history of alcohol or substance use. He denied participation in substance abuse program. He denied a family and friends have expressed concern about his alcohol use. FAMILY PSYCHIATRIC/SUBSTANCE USE HISTORY: Her sister had a history of mental health problems and by suicide. SOCIAL HISTORY: He was born and raised in [place] to an intact family. He had one sister. He graduated from high school and received associates degree in computer science from [employer]. His father owned a [employer] business. 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 He is single and has no children. He is unemployed and receives Social Security disability. MENTAL STATUS EXAM: He presented as an obese 49-year-old male who was resting comfortably in his hospital bed. He made eye contact and attended to the interview. He had no distinguishing features or prominent physical abnormalities. He had a depressed but reactive facial expression. He was alert and oriented to person, place and time. He showed psychomotor retardation but no abnormal movements. Her speech was spontaneous with normal rate and rhythm. He had word finding difficulties. His affect was depressed but reactive. He denied suicidal ideation but described wishes. He denied homicidal ideation. He expressed feelings of hopelessness regarding his multiple medical conditions and inability to work but denied feelings of worthlessness. He ruminated about his medical problems and the deaths of his parents. He did not express ideas reference, paranoid ideation or delusions. His thinking was concrete and associations were coherent, logical and goal directed. He denied hallucinations didn't appear to be responding to internal stimuli. We completed the [facility] Orientation Memory Concentration test. He had difficulty with concentration and attention and short-term memory. His total weighted error score was 8; a total weighted error score greater than 10 is consistent with a dementia. He knew the month and year. He estimates that time correctly within 1 hour actual time. He was able to register memory phrase "Bean Meza, [address] [place] [address]." He is able to count backwards from 20 to 1. made several errors when naming the months. Backwards (beginning with May). He remembered 3 elements of memory phrase. IMPRESSIONS: He is a 49-year-old single male admitted to the [facility] for evaluation of new onset atrial fibrillation. He has a history of depression treated with antidepressant medication and described intermittent wishes that developed in the context of his multiple severe medical problems. He reported some improvement in his mood with the Zoloft but described continued feelings depression. Since of his parents he has felt alone. There is no evidence of aldo, substance abuse problems or psychosis. There is no history of suicide attempts or gestures. His mood is depressed but reactive. His performance on mental status testing suggests some cognitive impairment but not consistent with a dementia. The cognitive. May be a consequence his multiple medical problems result of his depressive state (pseudodementia). He may best she is an outpatient basis with combination of psychopharmacology and individual therapy. He does not meet criteria for transfer to the psychiatric unit at this time. DIAGNOSIS: Major depressive disorder moderate, unresolved grief, Rule out unspecified neurocognitive disorder PLAN: Increase Zoloft 250 mg daily, refer him for outpatient individual therapy. Thank you for this consult. Psychiatry will follow. 11/24/19 12:47
[2019-11-24 13:45] LABS: Hemoglobin A1C 6.4 % (4.0-6.0)
[2019-11-24 16:50] LABS: Glucose,Whole Blood 139 mg/dL (75-99)
--- NOTE | 2019-11-24 20:11 | P.HPIM ---
History of Present Illness H&P Date: 11/24/19 Chief Complaint: Weakness History of presenting complaint: This is a pleasant 49-year-old patient with extensive medical history. Patient follows with visiting physicians. Dr. Chaney. Chronic stable medical conditions include diabetes with peripheral neuropathy, coronary artery disease with stent, COPD, hypertension, hyperlipidemia, chronic kidney disease,(s) sleep apnea, kidney stones,(s) sleep apnea does not use a device, multiple abdominal surgeries for hiatal hernia, also history of tracheostomy, peripheral arterial disease, diverticulosis,. 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 Normally uses a scooter oral walker to get about. Normally uses one pillow at night. Patient has breakdown of superficial skin on the abdominal wall from scratching. Patient was just recently the hospital from November 19 through November 20 and was then seen for hypokalemia and atrial fibrillation. Seen by Dr. Abdias Hart from cardiology. Patient was discharged on the same medications. Potassium was replaced. Patient is doing well at home. Patient is started feeling unwell weak tired rundown. Visiting nurse felt he was slightly bit confused. Decided to bring him in. Found to be again in atrial fibrillation with uncontrolled rate. HYPERKALEMIC. Put on a Cardizem drip. Review of systems: GEN.: Tired EYES: None HEENT: None NECK: None RESPIRATORY: None CARDIOVASCULAR: As above GASTROINTESTINAL: As above GENITOURINARY: None MUSCULOSKELETAL: None LYMPHATICS: None HEMATOLOGICAL: None PSYCHIATRY: None NEUROLOGICAL: Some chronic pain in the lower extremities. Past medical history to include: Atrial fibrillation, coronary artery disease with stent, congestive heart failure EF 30-35%, COPD, DVT, hypertension, hyperlipidemia, chronic kidney disease, obstructive sleep apnea, hypothyroid, peripheral artery disease, chronic kidney disease stage III, kidney stones, DVT in the left leg in 2004,: Abscess with bowel resection, multiple abdominal surgeries for hiatal hernia,. Bladder prolonged hospitalization and prolonged medical-related dependent, with a tracheostomy tube, peripheral arterial disease, colonic diverticulosis, iron deficiency anemia,. Diabetes with peripheral neuropathy Social history: Patient is on disability. Patient smoked for about 10 years and stopped in 2008. In his symptoms smoking in 2015 quit in November of this year. Occasionally smoking no. No alcohol. Patient lives alone. Does have a scooter and a walker Physical examination: VITAL SIGNS: 98.8, 115, 18, 111/88, 98% on room air GENERAL: BMI 44.9, propped up in bed, tired EYES: Pupils equal. Conjunctiva normal. HEENT: External appearance of nose and ears normal, oral cavity grossly normal. NECK: JVD unable to assess; masses not palpable. HEART: Heart sounds irregular; negligible edema. LUNGS: Respiratory rate increased; decreased breath sounds ABDOMEN: Soft, nontender, liver spleen not palpable, no masses palpable, distended, with superficial breakdown of skin. Dressing also present.. PSYCH: Alert and oriented x3; mood and affect normal. NEUROLOGICAL: Cranial nerves grossly intact; no facial asymmetry, power and sensation grossly intact. LYMPHATICS: No lymph nodes palpable in the axilla and neck EXTREMITIES: Pigmentation of the both lower extremity distally INVESTIGATIONS, reviewed in the clinical context: Sodium 132 White count 7.1 hemoglobin 14 platelets 139 potassium 2.8 bun 61 creatinine 1.88 lactic acid 2.7 EKG tracing personally reviewed by me-atrial flutter fibrillation with a rate of about 120 with some PVCs 2-D echo-EF 50-55%, concentric LVH Chest x-ray film personally reviewed by me-cardiomegaly, doubt fluid prominence Previous testing: Labs from November 20 showed a bun of 65 and a creatinine of 1.45 Assessment: -Persistent atrial fibrillation, with uncontrolled rate, POA -Severe hypokalemia from diuretics -chronic congestive heart exacerbation EF of 50-55% from diastolic dysfunction from May 2019, from underlying coronary artery disease, -Hyponatremia, likely from diuretics -COPD in an ex-smoker -Chronic DVT chronically on anticoagulation -Hyperlipidemia -Essential hypertension -Chronic kidney disease stage III from diabetic nephropathy and hypertensive nephrosclerosis -Acute kidney injury likely prerenal from diuretics -Obstructive sleep apnea does not use a device -Hypothyroid -Peripheral arterial disease -Multiple abdominal wall hernia from prior surgery -Colonic diverticulosis -Morbid obesity BMI 44.6 -Diabetes mellitus type 2 chronically on insulin. With peripheral neuropathy Plan: -Patient is to prevent Cardizem drip. Cardiology was consulted. Potassium being replaced. Home medications resumed. Earlier today IV Cardizem was discontinued by Dr. Shepherd. Continue diuretics. Past Medical History Past Medical History: Atrial Fibrillation, Asthma, Coronary Artery Disease (CAD), Chest Pain / Angina, Heart Failure, COPD, Diabetes Mellitus, Deep Vein Thrombosis (DVT), Hyperlipidemia, Hypertension, Myocardial Infarction ([place]), Renal Disease, Sleep Apnea/CPAP/BIPAP, Thyroid Disorder, Vascular Disorder Additional Past Medical History / Comment(s): CHF, tracheobronchitis, CKD stage III, kidney stones, DVT L leg in 2004, KAMRYN without device use, colon abscess with bowel resection, multiple abdominal surgeries for a hiatal hernia that was complicated by prolonged hospitalization and prolonged ventilator dependent respiratory failure requiring a tracheostomy tube insertion, pvd-lower legs discolored/edematous, diverticular disease, chronic iron deficiency anemia, vertigo at times, Last Myocardial Infarction Date:: History of Any Multi-Drug Resistant Organisms: MRSA Date of last positivie culture/infection: 02/01/15 MDRO Source:: Abdomen Past Surgical History: Bowel Resection, Heart Catheterization With Stent, Hernia Repair Additional Past Surgical History / Comment(s): Colonoscopies, heart stents x 4, bowel resection with colostomy and colostomy reversal (removed a foot of pts colon)-2003, hernia repair with skin grafts and 2 fistula repairs (hospitalized for 1 year @[facility])-2010 MRSA 2015 in wounds. Past Anesthesia/Blood Transfusion Reactions: No Reported Reaction Additional Past Anesthesia/Blood Transfusion Reaction / Comment(s): Pt has received blood in past without reaction-2010 Date of Last Stent Placement:: 03/28/2015 Past Psychological History: Depression Additional Psychological History / Comment(s): PT IS DISABLED. PT LIVES WITH 2 PET CATS AND 1 DOG. HOME HAS A RAMP. USES A CANE CURRENTLY-. Smoking Status: Former smoker Past Alcohol Use History: None Reported Additional Past Alcohol Use History / Comment(s): STARTED SMOKING AGE 26, (1995) AND QUIT IN 2008. HE THEN RESUMED SMOKING IN 2015. PATIENT QUIT THIS YEAR IN NOVEMBER AND NOW SMOKES ONE TO TWO CIGARETTES A DAY. Past Drug Use History: None Reported - Past Family History Mother Family Medical History: Osteoarthritis (OA), Pneumonia Additional Family Medical History / Comment(s): osteoporosis. arthroscopy surgery for knee Father Family Medical History: Liver Disease, Renal Disease Additional Family Medical History / Comment(s): triple heart bypass. liver transplant. aortic aneursym Medications and Allergies Home Medications Medication Instructions Recorded Confirmed Type Sertraline [Zoloft] 100 mg PO DAILY 10/19/13 11/23/19 History Nitroglycerin Sl Tabs [Nitrostat] 0.4 mg SUBLINGUAL Q5M PRN #30 tab 12/03/14 11/23/19 Rx Atorvastatin [Lipitor] 80 mg PO HS 03/25/15 11/23/19 History Levothyroxine Sodium [Synthroid] 137 mcg PO DAILY 03/25/15 11/23/19 History Allopurinol [Zyloprim] 100 mg PO DAILY 12/17/17 11/23/19 History Apixaban [Eliquis] 5 mg PO BID tab 06/03/18 11/23/19 Rx Furosemide [Lasix] 60 mg PO BID@0900,2100 11/05/19 11/23/19 History Metolazone [Zaroxolyn] 2.5 mg PO BID 11/05/19 11/23/19 History traMADol HCL 50 mg PO BID 11/05/19 11/23/19 History Bacitracin Oint 1 applic TOPICAL BID #1 applic 11/10/19 11/23/19 Rx Metoprolol Tartrate [Lopressor] 50 mg PO TID 30 Days #90 tab 11/10/19 11/23/19 Rx Midodrine [ProAmatine] 5 mg PO AC-BID 30 Days #60 tab 11/10/19 11/23/19 Rx Furosemide [Lasix] 20 mg PO DAILY@1200 11/20/19 11/23/19 History Gabapentin [Neurontin] 300 mg PO DAILY 11/20/19 11/23/19 History Insulin Detemir [Levemir Flextouch] 50 units SQ HS #0 11/21/19 11/23/19 Rx Potassium Chloride Oral Liquid 40 meq PO BID #0 11/21/19 11/23/19 Rx Allergies Allergy/AdvReac Type Severity Reaction Status Date / Time adhesive Allergy "PLASTIC Verified 11/23/19 18:01 TAPE PEELS SKIN,PAPER TAPE IS OK" linezolid Allergy Unknown Verified 11/23/19 18:01 penicillin G Allergy Rash/Hives Verified 11/23/19 18:01 Cephalosporins AdvReac FEVER Verified 11/23/19 18:01 Physical Exam Vitals: Vital Signs Temp Pulse Resp BP Pulse Ox 11/24/19 08:00 97.8 F 83 16 95/77 97 11/24/19 06:00 92 21 102/73 97 11/24/19 04:00 98.2 F 93 24 117/86 98 06/09/20 02:00 105 H 16 99 11/24/19 00:00 98.5 F 105 H 12 103/61 97 11/23/19 23:00 118 H 18 116/81 98 11/23/19 22:30 104 H 17 121/84 100 11/23/19 22:00 107 H 18 104/77 100 11/23/19 21:30 106 H 19 118/83 98 11/23/19 21:00 102 H 18 106/87 98 11/23/19 20:30 109 H 17 103/79 98 11/23/19 20:00 125 H 19 109/74 99 11/23/19 19:30 122 H 18 109/75 99 11/23/19 19:00 112 H 17 115/79 98 11/23/19 17:30 114 H 12 111/88 99 11/23/19 17:06 98.8 F 115 H 18 111/88 98 Intake and Output 11/23/19 11/24/19 11/24/19 22:59 06:59 14:59 Intake Total 7.667 820.917 Output Total 1100 Balance 7.667 -279.083 Intake: Intake, IV Titration 7.667 820.917 Amount Diltiazem 125 mg In 7.667 40.917 Sodium Chloride 0.9% 100 ml @ 5 MG/HR 5 mls/hr IV .Q24H [facility] Rx#:[id number] Sodium Chloride 0.9% 1, 780 000 ml @ 130 mls/hr IV . Q7H42M [facility] Rx#:[id number] Output: Urine 1100 Other: Voiding Method Urinal Urinal Weight 149.685 kg 142 kg Results CBC & Chem 7: 11/24/19 03:12 11/24/19 10:54 Labs: Abnormal Lab Results - Last 24 Hours (Table) 11/23/19 11/23/19 11/23/19 Range/Units 17:37 17:37 17:37 RDW 19.0 H (11.5-15.5) % Plt Count 139 L (150-450) k/uL APTT 31.6 H (22.0-30.0) sec Sodium 132 L (137-145) mmol/L Potassium 2.8 L (3.5-5.1) mmol/L Chloride 84 L (98-107) mmol/L Carbon Dioxide 37 H (22-30) mmol/L BUN 61 H (9-20) mg/dL Creatinine 1.88 H (0.66-1.25) mg/dL Glucose 129 H (74-99) mg/dL POC Glucose (mg/dL) (75-99) mg/dL Plasma Lactic Acid Isael (0.7-2.0) mmol/L Creatine Kinase 24 L (55-170) U/L Triglycerides (<150) mg/dL HDL Cholesterol (40-60) mg/dL Urine Protein (Negative) Urine Blood (Negative) Urine RBC (0-5) /hpf 11/23/19 11/23/19 11/23/19 Range/Units 17:37 19:20 21:10 RDW (11.5-15.5) % Plt Count (150-450) k/uL APTT (22.0-30.0) sec Sodium (137-145) mmol/L Potassium (3.5-5.1) mmol/L Chloride (98-107) mmol/L Carbon Dioxide (22-30) mmol/L BUN (9-20) mg/dL Creatinine (0.66-1.25) mg/dL Glucose (74-99) mg/dL POC Glucose (mg/dL) (75-99) mg/dL Plasma Lactic Acid Isael 2.7 H* 2.2 H* (0.7-2.0) mmol/L Creatine Kinase (55-170) U/L Triglycerides (<150) mg/dL HDL Cholesterol (40-60) mg/dL Urine Protein 1+ H (Negative) Urine Blood Small H (Negative) Urine RBC 28 H (0-5) /hpf 11/23/19 11/24/19 11/24/19 Range/Units 23:53 00:14 03:12 RDW (11.5-15.5) % Plt Count (150-450) k/uL APTT (22.0-30.0) sec Sodium 134 L (137-145) mmol/L Potassium 2.8 L (3.5-5.1) mmol/L Chloride 87 L (98-107) mmol/L Carbon Dioxide 38 H (22-30) mmol/L BUN 58 H (9-20) mg/dL Creatinine 1.72 H (0.66-1.25) mg/dL Glucose 135 H (74-99) mg/dL POC Glucose (mg/dL) 182 H (75-99) mg/dL Plasma Lactic Acid Isael 2.4 H* (0.7-2.0) mmol/L Creatine Kinase (55-170) U/L Triglycerides 198 H (<150) mg/dL HDL Cholesterol 30 L (40-60) mg/dL Urine Protein (Negative) Urine Blood (Negative) Urine RBC (0-5) /hpf 11/24/19 11/24/19 Range/Units 03:12 06:14 RDW 19.0 H (11.5-15.5) % Plt Count 131 L (150-450) k/uL APTT (22.0-30.0) sec Sodium (137-145) mmol/L Potassium (3.5-5.1) mmol/L Chloride (98-107) mmol/L Carbon Dioxide (22-30) mmol/L BUN (9-20) mg/dL Creatinine (0.66-1.25) mg/dL Glucose (74-99) mg/dL POC Glucose (mg/dL) 138 H (75-99) mg/dL Plasma Lactic Acid Isael (0.7-2.0) mmol/L Creatine Kinase (55-170) U/L Triglycerides (<150) mg/dL HDL Cholesterol (40-60) mg/dL Urine Protein (Negative) Urine Blood (Negative) Urine RBC (0-5) /hpf Thrombosis Risk Factor Assmnt - Choose All That Apply Any of the Below Risk Factors Present?: Yes Each Factor Represents 1 point: Age 41-60 years, Heart failure (<1month), Medical pt on bed rest, Obesity (BMI >25) Other Risk Factors: Yes Each Risk Factor Represents 3 Points: History of DVT/PE Other congenital or acquired thrombophilia - If yes, enter type in comment: No Thrombosis Risk Factor Assessment Total Risk Factor Score: 7 Thrombosis Risk Factor Assessment Level: High Risk
[2019-11-24] MEDS: INSULIN DETEMIR (LEVEMIR) 100 UNIT/ML SYR SQ SCH (21:28)
[2019-11-24 21:39] LABS: Glucose,Whole Blood 118 mg/dL (75-99)
[2019-11-24] MEDS: ATORVASTATIN 80 MG TAB PO SCH (21:39)
[2019-11-24] MEDS ORDERED: POTASSIUM CHLORIDE ER 20 MEQ TAB.ER PO SCH (22:00)
[2019-11-25 05:48] LABS: Calcium 9.2 mg/dL (8.4-10.2); Magnesium 1.7 mg/dL (1.6-2.3); Potassium 2.9 mmol/L (3.5-5.1)
[2019-11-25] MEDS: MIDODRINE 5 MG TAB PO SCH ×2 (06:31→16:57)
[2019-11-25] MEDS: LEVOTHYROXINE 137 MCG TAB PO SCH (06:31)
[2019-11-25] MEDS: POTASSIUM CHLORIDE ER 20 MEQ TAB.ER PO SCH ×7 (06:31→20:04)
[2019-11-25 06:37] LABS: Glucose,Whole Blood 111 mg/dL (75-99)
[2019-11-25] MEDS: INSULIN ASPART (NovoLOG) 100 UNIT/ML VIAL SQ SCH ×4 (06:37→20:04)
--- NOTE | 2019-11-25 07:44 | PN ---
PROGRESS NOTE Mr. Cerna is a 49-year-old male with a known history of coronary artery disease, history of chronic atrial fibrillation, who presented with symptoms of progressive fatigue and weakness and had evidence of hypokalemia. He has a history of chronic tobacco use. He has prior history of moderate cardiomyopathy. A repeat echocardiogram performed yesterday showed ejection fraction of 50% to 55% with mild mitral and tricuspid regurgitation. No evidence of pulmonary hypertension. He is feeling tired today, but overall better. He denies any chest pain. His breathing has been stable. He denies any dizziness or palpitation. He denies any and nausea. Hemodynamically, he is stable. He has no evidence of hypotension. He continued to be on Eliquis 5 mg twice a day, Lipitor 80 mg daily, Lasix 60 mg twice a day, metolazone 2.5 mg daily, midodrine 5 mg twice a day, metoprolol tartrate 50 mg 3 times a day, spironolactone 25 mg daily. PHYSICAL EXAMINATION: Blood pressure running in the high 90s low 100s with the heart rate in the 90s. LUNGS: Clear. HEART: Irregular, irregular, S1, S2. No S3 with systolic murmur. No diastolic murmur. ABDOMEN: Soft, nontender. EXTREMITIES: With chronic stasis and +1 to 2 chronic edema. LAB DATA: Lab data revealed the sodium of 134, potassium 2.9, BUN and creatinine 51 and 1.67, which is slightly improved compared to the admission. IMPRESSION: 1. Persistent hypokalemia. 2. History of coronary artery disease, stable. 3. History of cardiomyopathy, mild and stable. 4. Chronic kidney disease. 5. Chronic atrial fibrillation anticoagulated with controlled ventricular response. 6. Obesity. 7. Chronic tobacco use. 8. Prior history of cardiomyopathy. RECOMMENDATION: I will stop the metolazone at this time: Continue to correct his potassium. Increase his level of activity. Follow his renal function and depending on his progress, further recommendation will be made. MMODL / IJN: [id number] /
[2019-11-25] MEDS: MAGNESIUM SULFATE-D5W PMX 1 GM in DEXTROSE/WATER 1 100ML.BAG IVPB SCH ×2 (08:13→09:41)
[2019-11-25] MEDS: FUROSEMIDE 20 MG TAB PO SCH ×2 (08:14→20:04)
[2019-11-25] MEDS: GABAPENTIN 300 MG CAP PO SCH (08:14)
[2019-11-25] MEDS: SPIRONOLACTONE 25 MG TAB PO SCH (08:14)
[2019-11-25] MEDS: ALLOPURINOL 100 MG TAB PO SCH (08:14)
[2019-11-25] MEDS: METOPROLOL TARTRATE 50 MG TAB PO SCH ×3 (08:14→21:29)
[2019-11-25] MEDS: APIXABAN 5 MG TAB PO SCH ×2 (08:14→20:04)
[2019-11-25] MEDS: SERTRALINE 100 MG TAB PO SCH (08:14)
[2019-11-25] MEDS: BACITRACIN 500 UNIT/GM OINT 28.4 GM TUBE TOPICAL SCH ×2 (09:37→20:07)
[2019-11-25 11:16] LABS: Glucose,Whole Blood 265 mg/dL (75-99)
[2019-11-25] MEDS ORDERED: POTASSIUM BICARBONATE/CIT AC 20 MEQ TABLET.EFF PO SCH (11:45)
[2019-11-25] MEDS ORDERED: CALCIUM CARBONATE LIQUID 500 MG/5 ML CUP PO PRN (11:48)
[2019-11-25] MEDS ORDERED: POTASSIUM CHLORIDE ER 20 MEQ TAB.ER PO SCH (12:00)
[2019-11-25 16:57] LABS: Glucose,Whole Blood 101 mg/dL (75-99)
--- NOTE | 2019-11-25 19:22 | P.PN ---
Progress Note - Text Progress Note Date: 11/25/19 Chief Complaint: Weakness History of presenting complaint: This is a pleasant 49-year-old patient with extensive medical history. Patient follows with visiting physicians. Dr. Chaney. Chronic stable medical conditions include diabetes with peripheral neuropathy, coronary artery disease with stent, COPD, hypertension, hyperlipidemia, chronic kidney disease,(s) sleep apnea, kidney stones,(s) sleep apnea does not use a device, multiple abdominal surgeries for hiatal hernia, also history of tracheostomy, peripheral arterial disease, diverticulosis,. 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 Normally uses a scooter oral walker to get about. Normally uses one pillow at night. Patient has breakdown of superficial skin on the abdominal wall from scratching. Patient was just recently the hospital from November 19 through November 20 and was then seen for hypokalemia and atrial fibrillation. Seen by Dr. Abdias Hart from cardiology. Patient was discharged on the same medications. Potassium was replaced. Patient is doing well at home. Patient is started feeling unwell weak tired rundown. Visiting nurse felt he was slightly bit confused. Decided to bring him in. Found to be again in atrial fibrillation with uncontrolled rate. HYPERKALEMIC. Put on a Cardizem drip. Admitted with atrial fibrillation with rapid ventricular rate, severe hyperkalemia. Cardizem drip was discontinued. Potassium replaced. Also acute delirium. Improved Today-doing much better. Sitting up in a chair. Able to communicate. Potassium is being replaced. Heart rate controlled. Review of systems: Was done for constitutional, cardiovascular, GI, pulmonary. relevant finding as above Active Medications Acetaminophen (Tylenol Tab) 650 mg PO Q6HR PRN PRN Reason: Fever and/ or Pain Last Admin: 11/24/19 02:53 Dose: 650 mg Documented by: Allopurinol (Zyloprim) 100 mg PO DAILY [facility] Last Admin: 11/25/19 08:14 Dose: 100 mg Documented by: Apixaban (Eliquis) 5 mg PO BID [facility] Last Admin: 11/25/19 08:14 Dose: 5 mg Documented by: Atorvastatin Calcium (Lipitor) 80 mg PO HS [facility] Last Admin: 11/24/19 21:39 Dose: 80 mg Documented by: Bacitracin (Bacitracin Oint) 1 applic TOPICAL BID [facility] Last Admin: 11/25/19 09:37 Dose: Not Given Documented by: Calcium Carbonate/Glycine (Tums Liquid) 500 mg PO TID-W/MEALS PRN PRN Reason: Heartburn Furosemide (Lasix) 60 mg PO BID@0900,2100 [facility] Last Admin: 11/25/19 08:14 Dose: 60 mg Documented by: Gabapentin (Neurontin) 300 mg PO DAILY [facility] Last Admin: 11/25/19 08:14 Dose: 300 mg Documented by: Insulin Aspart (Novolog) 0 unit SQ [facility]; Protocol Last Admin: 11/25/19 16:56 Dose: Not Given Documented by: Insulin Detemir (Levemir) 50 unit SQ [facility] Last Admin: 11/24/19 21:28 Dose: 50 unit Documented by: Levothyroxine Sodium (Synthroid) 137 mcg PO DAILY@0630 [facility] Last Admin: 11/25/19 06:31 Dose: 137 mcg Documented by: Metoprolol Tartrate (Lopressor) 50 mg PO TID [facility] Last Admin: 11/25/19 18:17 Dose: 50 mg Documented by: Midodrine (Proamatine) 5 mg PO AC-BID [facility] Last Admin: 11/25/19 16:57 Dose: 5 mg Documented by: Nitroglycerin (Nitrostat) 0.4 mg SUBLINGUAL Q5M PRN PRN Reason: Chest Pain Potassium Chloride (K-Dur 20) 40 meq PO BID [facility] Last Admin: 11/25/19 12:14 Dose: 40 meq Documented by: Sertraline HCl (Zoloft) 100 mg PO DAILY [facility] Last Admin: 11/25/19 08:14 Dose: 100 mg Documented by: Spironolactone (Aldactone) 25 mg PO DAILY [facility] Last Admin: 11/25/19 08:14 Dose: 25 mg Documented by: Tramadol HCl (Ultram) 50 mg PO BID PRN PRN Reason: Analgesia Last Admin: 11/24/19 21:40 Dose: 50 mg Documented by: Physical examination: VITAL SIGNS: 97.5, 90, 18, 95/61, 97% on 2 L GENERAL: Sitting up in a chair, awake eating EYES: Pupils equal. Conjunctiva normal. HEENT: External appearance of nose and ears normal, oral cavity grossly normal. NECK: JVD unable to assess; masses not palpable. HEART: Heart sounds irregular; no edema. LUNGS: Respiratory rate increased; decreased breath sounds ABDOMEN: Soft, nontender, liver spleen not palpable, no masses palpable, distended, with superficial breakdown of skin. Dressing also present.. PSYCH: Alert and oriented x3; mood and affect normal. NEUROLOGICAL: Cranial nerves grossly intact; no facial asymmetry, power and sensation grossly intact. EXTREMITIES: Pigmentation of the both lower extremity distally INVESTIGATIONS, reviewed in the clinical context: Potassium 2.9 bun 51 creatinine 1.67 Previous testing Sodium 132 White count 7.1 hemoglobin 14 platelets 139 potassium 2.8 bun 61 creatinine 1.88 lactic acid 2.7 EKG tracing personally reviewed by me-atrial flutter fibrillation with a rate of about 120 with some PVCs 2-D echo-EF 50-55%, concentric LVH Chest x-ray film personally reviewed by me-cardiomegaly, doubt fluid prominence Labs from November 20 showed a bun of 65 and a creatinine of 1.45 Assessment: -Persistent atrial fibrillation, with uncontrolled rate, POA now better controlled -Severe hypokalemia from diuretics -chronic congestive heart exacerbation EF of 50-55% from diastolic dysfunction from May 2019, from underlying coronary artery disease, -Hyponatremia, likely from diuretics -COPD in an ex-smoker -Chronic DVT chronically on anticoagulation -Hyperlipidemia -Essential hypertension -Chronic kidney disease stage III from diabetic nephropathy and hypertensive nephrosclerosis -Acute kidney injury likely prerenal from diuretics -Obstructive sleep apnea does not use a device -Hypothyroid -Peripheral arterial disease -Multiple abdominal wall hernia from prior surgery -Colonic diverticulosis -Morbid obesity BMI 44.6 -Diabetes mellitus type 2 chronically on insulin. With peripheral neuropathy Plan: -Patient's heart rate is controlled. Potassium being replaced. Patient's zaroxylyn to be discontinued. Follow potassium levels. Hopefully discharge in 24 hours. Follow with cardiology. Got a call from bilingual social worker Santiago is a concern from home care about patient not being able to take his own decisions. Patient was delirious and it, and has now fully recovered. Has a good insight into his condition and is fully capable of taking his own decisions. Patient does not need a legal guardian. Also discussed with the nurse. Total time s pent today was about 40 minutes with over 25 minutes in discussion.
[2019-11-25 20:00] LABS: Glucose,Whole Blood 156 mg/dL (75-99)
[2019-11-25] MEDS: ATORVASTATIN 80 MG TAB PO SCH (20:04)
[2019-11-25] MEDS: INSULIN DETEMIR (LEVEMIR) 100 UNIT/ML SYR SQ SCH (20:04)
[2019-11-25] MEDS ORDERED: traMADol 50 MG TAB ONE (23:20)
[2019-11-26] MEDS ORDERED: POTASSIUM CHLORIDE ER 20 MEQ TAB.ER PO ONE ×2
[2019-11-26 05:55] LABS: Calcium 9.3 mg/dL (8.4-10.2); Magnesium 1.9 mg/dL (1.6-2.3); Potassium 3.8 mmol/L (3.5-5.1)
[2019-11-26 06:14] LABS: Anisocytosis Slight; Basophils # (A) 0.1 k/uL (0-0.2); Basophils % (A) 1 %; Eosinophils # (A) 0.8 k/uL (0-0.7); Eosinophils % (A) 9 %; HCT 42.4 % (39.0-53.0); HGB 14.2 gm/dL (13.0-17.5); Hypochromasia Slight; Lymphocytes # (A) 1.9 k/uL (1.0-4.8); Lymphocytes % (A) 24 %; MCH 29.1 pg (25.0-35.0); MCHC 33.6 g/dL (31.0-37.0); MCV 86.6 fL (80.0-100.0); Mean Platelet Volume 9.4; Monocytes # (A) 0.5 k/uL (0-1.0); Monocytes % (A) 6 %; Neutrophils # (A) 4.6 k/uL (1.3-7.7); Neutrophils % (A) 58 %; Platelet Count 150 k/uL (150-450); Poikilocytosis Slight; RBC 4.89 m/uL (4.30-5.90); RDW 18.7 % (11.5-15.5)
[2019-11-26 07:10] LABS: Glucose,Whole Blood 107 mg/dL (75-99)
[2019-11-26] MEDS: INSULIN ASPART (NovoLOG) 100 UNIT/ML VIAL SQ SCH ×2 (07:11→12:48)
[2019-11-26] MEDS: MIDODRINE 5 MG TAB PO SCH (07:11)
[2019-11-26] MEDS: LEVOTHYROXINE 137 MCG TAB PO SCH (07:12)
--- NOTE | 2019-11-26 09:17 | PN ---
PROGRESS NOTE Mr. Cerna is a 49-year-old male with a history of atrial fibrillation, history of coronary artery disease who presented with symptoms of progressive weakness, was noted to be severely hypokalemic. He is feeling better today. His breathing is stable. He is denying any chest pain. He denies any dizziness. He denies any palpitation. He continues to be in atrial fibrillation with controlled ventricular response. He had no evidence of malignant arrhythmia. He continues to be at this time on Aldactone 25 mg daily, Eliquis 5 mg twice a day, Lipitor 80 mg daily, furosemide 60 mg twice a day, metoprolol 50 mg 3 times a day. PHYSICAL EXAMINATION: Blood pressure running in the 100s with a heart rate in the 80s and 90s. LUNGS: With decreased air exchange, no wheezes. HEART: Irregular, regular, S1, S2. No S3. No rub. ABDOMEN: Soft, nontender. EXTREMITIES: With chronic stasis and 1+ edema. LAB DATA: Revealed BUN and creatinine 54 and 1.7, potassium 3.8, hemoglobin of 4.2. IMPRESSION: 1. Severe hypokalemia, improved. 2. History of coronary artery disease, stable. 3. Chronic persistent atrial fibrillation, anticoagulated. 4. Weakness, improved. 5. Mild cardiomyopathy. 6. Chronic kidney disease. 7. Chronic tobacco use. 8. Prior history of noncompliance. RECOMMENDATION: From the cardiac standpoint, he is stable, he should be able to be discharged home soon. I would recommend to follow his renal function as an outpatient and depending on his progress, further recommendation will be made. He will follow up with Dr. Wood as an outpatient. MMODL / IJN: [id number] /
[2019-11-26] MEDS: SERTRALINE 100 MG TAB PO SCH (10:01)
[2019-11-26] MEDS: FUROSEMIDE 20 MG TAB PO SCH (10:02)
[2019-11-26] MEDS: METOPROLOL TARTRATE 50 MG TAB PO SCH (10:02)
[2019-11-26] MEDS: SPIRONOLACTONE 25 MG TAB PO SCH (10:03)
[2019-11-26] MEDS: ALLOPURINOL 100 MG TAB PO SCH (10:04)
[2019-11-26] MEDS: POTASSIUM CHLORIDE ER 20 MEQ TAB.ER PO SCH (10:04)
[2019-11-26] MEDS: APIXABAN 5 MG TAB PO SCH (10:04)
[2019-11-26] MEDS: BACITRACIN 500 UNIT/GM OINT 28.4 GM TUBE TOPICAL SCH (10:04)
[2019-11-26] MEDS: GABAPENTIN 300 MG CAP PO SCH (10:04)
[2019-11-26 11:52] LABS: Glucose,Whole Blood 97 mg/dL (75-99)
[2019-11-26 12:18] VITALS: BP 94/71; PULSE 78; RESP 15; TEMP 98.2
--- NOTE | 2019-11-26 21:51 | P.DS ---
Providers Date of admission: 11/23/19 20:51 Expected date of discharge: 11/26/19 Attending physician: Vamshi Barrera Consults: 11/24/19 00:23 Consult Physician Routine Consulting Provider: [facility] Consult Reason/Comments: Depression Do you want consulting provider notified?: Yes 11/24/19 01:06 Consult Physician Routine Consulting Provider: [facility] Consult Reason/Comments: Weakness, A-fib Do you want consulting provider notified?: Yes, Notify in am Primary care physician: Bryce Hospital Course: Chief Complaint: Weakness History of presenting complaint: This is a pleasant 49-year-old patient with extensive medical history. Patient follows with visiting physicians. Dr. Chaney. Chronic stable medical conditions include diabetes with peripheral neuropathy, coronary artery disease with stent, COPD, hypertension, hyperlipidemia, chronic kidney disease,(s) sleep apnea, kidney stones,(s) sleep apnea does not use a device, multiple abdominal surgeries for hiatal hernia, also history of tracheostomy, peripheral arterial disease, diverticulosis,. 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 Normally uses a scooter oral walker to get about. Normally uses one pillow at night. Patient has breakdown of superficial skin on the abdominal wall from scratching. Patient was just recently the hospital from November 19 through November 20 and was then seen for hypokalemia and atrial fibrillation. Seen by Dr. Abdias Hart from cardiology. Patient was discharged on the same medications. Potassium was replaced. Patient is doing well at home. Patient is started feeling unwell weak tired rundown. Visiting nurse felt he was slightly bit confused. Decided to bring him in. Found to be again in atrial fibrillation with uncontrolled rate. HYPERKALEMIC. Put on a Cardizem drip. Admitted with atrial fibrillation with rapid ventricular rate, severe hyperkalemia. Cardizem drip was discontinued. Potassium replaced. Also acute delirium. Improved. Seen by psychiatrist. Patient has major depressive disorder of moderate. Recommended to increase the Zoloft to 250 mg day. Patient declined to the same right now. He is to discuss this with his family doctor. Patient is competent to take his own decisions. Today-doing much better. Sitting up in a chair. Feeling better. Patient's Zaroxolyn has been discontinued. Atrial flutter rate controlled Consultation: Dr. Shepherd from cardiology Dr. Law from psychiatry Physical examination: VITAL SIGNS: 98.2, 78, 15, 94/71, 97% on 4 L GENERAL: Sitting up in a chair, comfortable EYES: Pupils equal. Conjunctiva normal. HEENT: External appearance of nose and ears normal, oral cavity grossly normal. NECK: JVD unable to assess; masses not palpable. HEART: Heart sounds irregular; no edema. LUNGS: Respiratory rate increased; decreased breath sounds ABDOMEN: Soft, nontender, liver spleen not palpable, no masses palpable, distended, with superficial breakdown of skin. Dressing also present.. PSYCH: Alert and oriented x3; mood and affect normal. EXTREMITIES: Pigmentation of the both lower extremity distally INVESTIGATIONS, reviewed in the clinical context: Potassium 2.9 bun 51 creatinine 1.67 Previous testing Potassium 3.8 bun 54 creatinine 1.70 Previous testing Sodium 132 White count 7.1 hemoglobin 14 platelets 139 potassium 2.8 bun 61 creatinine 1.88 lactic acid 2.7 EKG tracing personally reviewed by me-atrial flutter fibrillation with a rate of about 120 with some PVCs 2-D echo-EF 50-55%, concentric LVH Chest x-ray film personally reviewed by me-cardiomegaly, doubt fluid prominence Labs from November 20 showed a bun of 65 and a creatinine of 1.45 Assessment: -Persistent atrial fibrillation, with uncontrolled rate, POA now better controlled -Severe hypokalemia from diuretics -chronic congestive heart exacerbation EF of 50-55% from diastolic dysfunction from May 2019, from underlying coronary artery disease, -Hyponatremia, likely from diuretics -COPD in an ex-smoker -Chronic DVT chronically on anticoagulation -Hyperlipidemia -Essential hypertension -Chronic kidney disease stage III from diabetic nephropathy and hypertensive nephrosclerosis -Acute kidney injury likely prerenal from diuretics -Obstructive sleep apnea does not use a device -Hypothyroid -Peripheral arterial disease -Multiple abdominal wall hernia from prior surgery -Colonic diverticulosis -Morbid obesity BMI 44.6 -Diabetes mellitus type 2 chronically on insulin. With peripheral neuropathy Disposition: Home with home care Patient Condition at Discharge: Stable Plan - Discharge Summary Discharge Rx Participant: Yes New Discharge Prescriptions: New Spironolactone [Aldactone] 25 mg PO DAILY #30 tab Potassium Chloride ER [K-Dur 20] 40 meq PO BID #100 tab.er.prt Continue Nitroglycerin Sl Tabs [Nitrostat] 0.4 mg SUBLINGUAL Q5M PRN #30 tab PRN Reason: Chest Pain Levothyroxine Sodium [Synthroid] 137 mcg PO DAILY Atorvastatin [Lipitor] 80 mg PO HS Allopurinol [Zyloprim] 100 mg PO DAILY Apixaban [Eliquis] 5 mg PO BID tab Furosemide [Lasix] 60 mg PO BID@0900,2100 traMADol HCL 50 mg PO BID Bacitracin Oint 1 applic TOPICAL BID #1 applic Metoprolol Tartrate [Lopressor] 50 mg PO TID 30 Days #90 tab Midodrine [ProAmatine] 5 mg PO AC-BID 30 Days #60 tab Gabapentin [Neurontin] 300 mg PO DAILY Insulin Detemir [Levemir Flextouch] 50 units SQ HS #0 Discontinued Metolazone [Zaroxolyn] 2.5 mg PO BID Furosemide [Lasix] 20 mg PO DAILY@1200 Potassium Chloride Oral Liquid 40 meq PO BID #0 No Action Sertraline [Zoloft] 100 mg PO DAILY Discharge Medication List Sertraline [Zoloft] 100 mg PO DAILY 10/19/13 [History] Nitroglycerin Sl Tabs [Nitrostat] 0.4 mg SUBLINGUAL Q5M PRN #30 tab 12/03/14 [Rx] Atorvastatin [Lipitor] 80 mg PO HS 03/25/15 [History] Levothyroxine Sodium [Synthroid] 137 mcg PO DAILY 03/25/15 [History] Allopurinol [Zyloprim] 100 mg PO DAILY 12/17/17 [History] Apixaban [Eliquis] 5 mg PO BID tab 06/03/18 [Rx] Furosemide [Lasix] 60 mg PO BID@0900,2100 11/05/19 [History] traMADol HCL 50 mg PO BID 11/05/19 [History] Bacitracin Oint 1 applic TOPICAL BID #1 applic 11/10/19 [Rx] Metoprolol Tartrate [Lopressor] 50 mg PO TID 30 Days #90 tab 11/10/19 [Rx] Midodrine [ProAmatine] 5 mg PO AC-BID 30 Days #60 tab 11/10/19 [Rx] Gabapentin [Neurontin] 300 mg PO DAILY 11/20/19 [History] Insulin Detemir [Levemir Flextouch] 50 units SQ HS #0 11/21/19 [Rx] Potassium Chloride ER [K-Dur 20] 40 meq PO BID #100 tab.er.prt 11/26/19 [Rx] Spironolactone [Aldactone] 25 mg PO DAILY #30 tab 11/26/19 [Rx] Follow up Appointment(s)/Referral(s): Alvin Wood MD [STAFF PHYSICIAN] - 1 Week [place] [NON-STAFF] - 1-2 Days Eleazar Bhatt MD [Primary Care Provider] - 1-2 days (Office stated they will set up appointement through home health care. Pt stated he would discuss zoloft with primary care service) Patient Instructions/Handouts: Potassium Chloride (By mouth), A-fib (Atrial Fibrillation) (GEN), Hypokalemia (GEN), Depression (GEN) Activity/Diet/Wound Care/Special Instructions: bmp - 5 days zoloft as per psychiatry Discharge Disposition: HOME SELF-CARE
== END 2019-11-26 16:49 | disposition home or self-care (01) | DRG 308 ==
LOC: EC 17:04 → 3SCARD 20:51 → 2SICU 23:28
PROVIDERS: ADMIT Hospitalist; ATTEND Hospitalist
DX: I48.19 Other persistent atrial fibrillation (principal); I50.33 Acute on chronic diastolic (congestive) heart failure; Z68.41 Body mass index [BMI] 40.0-44.9, adult; N17.9 Acute kidney failure, unspecified; L97.929 Non-pressure chronic ulcer of unspecified part of left lower leg with unspecified severity; E87.1 Hypo-osmolality and hyponatremia; I13.0 Hypertensive heart and chronic kidney disease with heart failure and stage 1 through stage 4 chronic kidney disease, or unspecified chronic kidney disease; I48.92 Unspecified atrial flutter; I42.9 Cardiomyopathy, unspecified; Z11.59 Encounter for screening for other viral diseases; I83.028 Varicose veins of left lower extremity with ulcer other part of lower leg; D63.1 Anemia in chronic kidney disease; E86.0 Dehydration; N18.3 Chronic kidney disease, stage 3 (moderate); E11.22 Type 2 diabetes mellitus with diabetic chronic kidney disease; E11.51 Type 2 diabetes mellitus with diabetic peripheral angiopathy without gangrene; E11.42 Type 2 diabetes mellitus with diabetic polyneuropathy; Z79.01 Long term (current) use of anticoagulants; Z79.4 Long term (current) use of insulin; E66.01 Morbid (severe) obesity due to excess calories; J44.9 Chronic obstructive pulmonary disease, unspecified; I25.10 Atherosclerotic heart disease of native coronary artery without angina pectoris; G47.33 Obstructive sleep apnea (adult) (pediatric); E78.5 Hyperlipidemia, unspecified; E03.9 Hypothyroidism, unspecified; F32.9 Major depressive disorder, single episode, unspecified; E87.6 Hypokalemia; K57.30 Diverticulosis of large intestine without perforation or abscess without bleeding; L98.8 Other specified disorders of the skin and subcutaneous tissue; I08.1 Rheumatic disorders of both mitral and tricuspid valves; F17.210 Nicotine dependence, cigarettes, uncomplicated; F43.21 Adjustment disorder with depressed mood; T50.1X5A Adverse effect of loop [high-ceiling] diuretics, initial encounter; I25.2 Old myocardial infarction; Z79.899 Other long term (current) drug therapy; Z79.890 Hormone replacement therapy; Z86.718 Personal history of other venous thrombosis and embolism; Z87.442 Personal history of urinary calculi; Z86.14 Personal history of Methicillin resistant Staphylococcus aureus infection; Z90.49 Acquired absence of other specified parts of digestive tract; Z95.5 Presence of coronary angioplasty implant and graft; Z91.19 Patient's noncompliance with other medical treatment and regimen; Z88.1 Allergy status to other antibiotic agents; Z88.0 Allergy status to penicillin; Z88.8 Allergy status to other drugs, medicaments and biological substances; Z82.62 Family history of osteoporosis; Z82.61 Family history of arthritis; Z83.6 Family history of other diseases of the respiratory system; Z83.79 Family history of other diseases of the digestive system
CPT/HCPCS: 36415; 71046; 80048; 80053; 80061; 81001; 82550; 83036; 83605; 83735; 83880; 84100; 84132; 84443; 84484; 85025; 85610; 85730; 93005; 93306; 96365; 96366; 96376; 99285

== ENCOUNTER 2020-06-23 13:16 | Inpatient (IN) | payer MEDICARE, OTHER ==
[2020-06-23] MEDS ORDERED: SODIUM CHLORIDE 0.9% 1,000 ML IV SCH (13:45)
[2020-06-23 14:22] LABS: INR 1.1 (<1.2); Partial Thromboplastin Time 30.1 sec (22.0-30.0); Prothrombin Time 11.5 sec (9.0-12.0)
[2020-06-23 14:24] LABS: Albumin 3.5 g/dL (3.5-5.0); Calcium 9.6 mg/dL (8.4-10.2); Potassium 4.4 mmol/L (3.5-5.1); Total Bilirubin 1.5 mg/dL (0.2-1.3)
[2020-06-23 14:45] LABS: Anisocytosis Slight; Basophils # (A) 0.1 k/uL (0-0.2); Basophils % (A) 2 %; Eosinophils # (A) 0.4 k/uL (0-0.7); Eosinophils % (A) 6 %; HCT 36.6 % (39.0-53.0); HGB 12.8 gm/dL (13.0-17.5); Lymphocytes # (A) 1.1 k/uL (1.0-4.8); Lymphocytes % (A) 16 %; MCH 29.8 pg (25.0-35.0); MCHC 34.9 g/dL (31.0-37.0); MCV 85.4 fL (80.0-100.0); Mean Platelet Volume 9.4; Monocytes # (A) 0.6 k/uL (0-1.0); Monocytes % (A) 8 %; Neutrophils # (A) 4.7 k/uL (1.3-7.7); Neutrophils % (A) 68 %; Platelet Count 137 k/uL (150-450); Poikilocytosis Slight; RBC 4.29 m/uL (4.30-5.90); RDW 17.4 % (11.5-15.5); WBC 6.9 k/uL (3.8-10.6)
--- NOTE | 2020-06-23 15:08 | ED ---
SOB HPI - General Chief Complaint: Shortness of Breath Stated Complaint: CRISTIAN Time Seen by Provider: 06/23/20 13:33 Source: patient, EMS Mode of arrival: EMS Limitations: no limitations - History of Present Illness Initial Comments: 50 year old female presenting today for chief complaint of dyspnea x 4 days. pt states he doesn't want to be here. he states that he he was seen by his visiting nurse who noticed that he needed more oxygen and was saturating at 100% on his normal 2 L. Patient states he has had some slight increasing leg swelling and shortness of breath since Saturday he states he also has had a wet cough. He denies chest pain fevers body aches nausea vomiting abdominal pain. Patient states he had some chest pain on Saturday however that resolved. He denies pain with deep inspiration. He denies hemoptysis he states he is compliant with his eliquis. Patient denies unilateral leg pain, covid, calf pain. pt denies medication noncompliance. pt denies wheezing or nasal congestion. Alexandra back pain. Pt appears nontoxic on arrival in no distress. BP at the lower aspect of normal. - Related Data Home Medications Medication Instructions Recorded Confirmed Sertraline [Zoloft] 150 mg PO DAILY 10/19/13 06/23/20 Atorvastatin [Lipitor] 80 mg PO HS 03/25/15 06/23/20 Furosemide [Lasix] 60 mg PO TID 11/05/19 06/23/20 traMADol HCL 50 mg PO BID PRN 11/05/19 06/23/20 Gabapentin [Neurontin] 300 mg PO HS 11/20/19 06/23/20 Ammonium Lactate Cream [Lac-Hydrin 1 inch TOPICAL BID 06/23/20 06/23/20 12% Cream] Apixaban [Eliquis] 5 mg PO DAILY 06/23/20 06/23/20 Lactulose [Constulose] 20 gm PO DAILY PRN 06/23/20 06/23/20 Nitroglycerin Sl Tabs [Nitrostat] 0.4 mg SL Q5M PRN 06/23/20 06/23/20 Potassium Chloride ER [K-Dur 20] 40 meq PO DAILY 06/23/20 06/23/20 Spironolactone [Aldactone] 18.75 mg PO DAILY 06/23/20 06/23/20 Previous Rx's Medication Instructions Recorded Insulin Detemir [Levemir Flextouch] 50 units SQ HS #0 11/21/19 Allergies Allergy/AdvReac Type Severity Reaction Status Date / Time adhesive Allergy "PLASTIC Verified 11/23/19 18:01 TAPE PEELS SKIN,PAPER TAPE IS OK" linezolid Allergy Unknown Verified 11/23/19 18:01 penicillin G Allergy Rash/Hives Verified 11/23/19 18:01 Cephalosporins AdvReac FEVER Verified 11/23/19 18:01 Review of Systems ROS Statement: Those systems with pertinent positive or pertinent negative responses have been documented in the HPI. ROS Other: All systems not noted in ROS Statement are negative. Past Medical History Past Medical History: Atrial Fibrillation, Asthma, Coronary Artery Disease (CAD), Chest Pain / Angina, Heart Failure, COPD, Diabetes Mellitus, Deep Vein Thrombosis (DVT), Hyperlipidemia, Hypertension, Myocardial Infarction ([place]), Renal Disease, Sleep Apnea/CPAP/BIPAP, Thyroid Disorder, Vascular Disorder Additional Past Medical History / Comment(s): CHF, tracheobronchitis, CKD stage III, kidney stones, DVT L leg in 2004, KAMRYN without device use, colon abscess with bowel resection, multiple abdominal surgeries for a hiatal hernia that was complicated by prolonged hospitalization and prolonged ventilator dependent respiratory failure requiring a tracheostomy tube insertion, pvd-lower legs discolored/edematous, diverticular disease, chronic iron deficiency anemia, vertigo at times, Last Myocardial Infarction Date:: History of Any Multi-Drug Resistant Organisms: MRSA Date of last positivie culture/infection: 02/01/15 MDRO Source:: Abdomen Past Surgical History: Bowel Resection, Heart Catheterization With Stent, Hernia Repair Additional Past Surgical History / Comment(s): Colonoscopies, heart stents x 4, bowel resection with colostomy and colostomy reversal (removed a foot of pts colon)-2003, hernia repair with skin grafts and 2 fistula repairs (hospitalized for 1 year @[facility])-2010 MRSA 2014 in wounds. Past Anesthesia/Blood Transfusion Reactions: No Reported Reaction Additional Past Anesthesia/Blood Transfusion Reaction / Comment(s): Pt has received blood in past without reaction-2010 Date of Last Stent Placement:: 03/28/2015 Past Psychological History: Depression Smoking Status: Current every day smoker, Light tobacco smoker Past Alcohol Use History: None Reported Past Drug Use History: None Reported - Past Family History Mother Family Medical History: Osteoarthritis (OA), Pneumonia Additional Family Medical History / Comment(s): osteoporosis. arthroscopy surgery for knee Father Family Medical History: Liver Disease, Renal Disease Additional Family Medical History / Comment(s): triple heart bypass. liver transplant. aortic aneursym General Exam - General Exam Comments Initial Comments: General: The patient is awake and alert, in no distress Eye: +3 mm pupils are equal, round and reactive to light, extra-ocular movements are intact. No nystagmus. There is normal conjunctiva bilaterally. No signs of icterus. Ears, nose, mouth and throat: There are moist mucous membranes and no oral lesions. Neck: The neck is supple, there is no tenderness or JVD. Cardiovascular: There is a regular rate and rhythm. No murmur, rub or gallop is appreciated. Respiratory: Respirations are non-labored, breath sounds are equal. No wheezes, stridor. Some scatter rhonchi, no obvious rales. Gastrointestinal: Soft, non-distended, non-tender abdomen without masses or or ganomegaly noted. There is no rebound or guarding present. Musculoskeletal: Normal ROM, no tenderness. Strength 5/5. Sensation intact. Radial pulses equal bilaterally 2+. Neurological: A&O x 3. CN II-XII intact grossly, There are no obvious motor or sensory deficits. Coordination appears grossly intact. Speech is normal. Skin: Skin is warm and dry and no rashes or lesions are noted. LE edema b/l +1. Psychiatric: Cooperative, appropriate mood & affect, normal judgment. Limitations: no limitations Course Vital Signs 06/23/20 06/23/20 06/23/20 13:17 13:33 16:44 Temperature 98.2 F Pulse Rate 79 83 Respiratory 18 24 Rate Blood Pressure 99/60 100/57 O2 Sat by Pulse 100 100 Oximetry 06/23/20 17:05 Temperature 97.9 F Pulse Rate 91 Respiratory 16 Rate Blood Pressure 106/75 O2 Sat by Pulse 100 Oximetry Medical Decision Making - Medical Decision Making Significant increase of BNP. Pt has some pleural effusion and leg swelling. fluids discontinued. pt saturating at baseline of 100% on 2L when sitting up in bed. pt givne IV lasix. troponin (-). Patient agreeable to admission for suspected heart failure exacerbation. No chest pain. Case discussed with Dr. Leonard who is agreeable to care plan. Cardiology on consult. Pt accepted by anna Jessica (-).. - Lab Data Result diagrams: 06/23/20 13:58 06/23/20 13:58 Lab Results 06/23/20 06/23/20 06/23/20 Range/Units 13:58 13:58 13:58 WBC 6.9 (3.8-10.6) k/uL RBC 4.29 L (4.30-5.90) m/uL Hgb 12.8 L (13.0-17.5) gm/dL Hct 36.6 L (39.0-53.0) % MCV 85.4 (80.0-100.0) fL MCH 29.8 (25.0-35.0) pg MCHC 34.9 (31.0-37.0) g/dL RDW 17.4 H (11.5-15.5) % Plt Count 137 L (150-450) k/uL MPV 9.4 Neutrophils % 68 % Lymphocytes % 16 % Monocytes % 8 % Eosinophils % 6 % Basophils % 2 % Neutrophils # 4.7 (1.3-7.7) k/uL Lymphocytes # 1.1 (1.0-4.8) k/uL Monocytes # 0.6 (0-1.0) k/uL Eosinophils # 0.4 (0-0.7) k/uL Basophils # 0.1 (0-0.2) k/uL Manual Slide Review Performed Poikilocytosis Slight Anisocytosis Slight PT 11.5 (9.0-12.0) sec INR 1.1 (<1.2) APTT 30.1 H (22.0-30.0) sec Sodium 139 (137-145) mmol/L Potassium 4.4 (3.5-5.1) mmol/L Chloride 99 (98-107) mmol/L Carbon Dioxide 32 H (22-30) mmol/L Anion Gap 8 mmol/L BUN 44 H (9-20) mg/dL Creatinine 2.15 H (0.66-1.25) mg/dL Est GFR (CKD-EPI)AfAm 40 (>60 ml/min/1.73 sqM) Est GFR (CKD-EPI)NonAf 35 (>60 ml/min/1.73 sqM) Glucose 106 H (74-99) mg/dL Plasma Lactic Acid Isael (0.7-2.0) mmol/L Calcium 9.6 (8.4-10.2) mg/dL Magnesium 2.0 (1.6-2.3) mg/dL Total Bilirubin 1.5 H (0.2-1.3) mg/dL AST 23 (17-59) U/L ALT 16 (4-49) U/L Alkaline Phosphatase 85 (38-126) U/L Troponin I (0.000-0.034) ng/mL NT-Pro-B Natriuret Pep pg/mL Total Protein 7.0 (6.3-8.2) g/dL Albumin 3.5 (3.5-5.0) g/dL Coronavirus (PCR) (Not Detectd) 06/23/20 06/23/20 06/23/20 Range/Units 13:58 13:58 13:58 WBC (3.8-10.6) k/uL RBC (4.30-5.90) m/uL Hgb (13.0-17.5) gm/dL Hct (39.0-53.0) % MCV (80.0-100.0) fL MCH (25.0-35.0) pg MCHC (31.0-37.0) g/dL RDW (11.5-15.5) % Plt Count (150-450) k/uL MPV Neutrophils % % Lymphocytes % % Monocytes % % Eosinophils % % Basophils % % Neutrophils # (1.3-7.7) k/uL Lymphocytes # (1.0-4.8) k/uL Monocytes # (0-1.0) k/uL Eosinophils # (0-0.7) k/uL Basophils # (0-0.2) k/uL Manual Slide Review Poikilocytosis Anisocytosis PT (9.0-12.0) sec INR (<1.2) APTT (22.0-30.0) sec Sodium (137-145) mmol/L Potassium (3.5-5.1) mmol/L Chloride (98-107) mmol/L Carbon Dioxide (22-30) mmol/L Anion Gap mmol/L BUN (9-20) mg/dL Creatinine (0.66-1.25) mg/dL Est GFR (CKD-EPI)AfAm (>60 ml/min/1.73 sqM) Est GFR (CKD-EPI)NonAf (>60 ml/min/1.73 sqM) Glucose (74-99) mg/dL Plasma Lactic Acid Isael 1.3 (0.7-2.0) mmol/L Calcium (8.4-10.2) mg/dL Magnesium (1.6-2.3) mg/dL Total Bilirubin (0.2-1.3) mg/dL AST (17-59) U/L ALT (4-49) U/L Alkaline Phosphatase (38-126) U/L Troponin I <0.012 (0.000-0.034) ng/mL NT-Pro-B Natriuret Pep 44083 pg/mL Total Protein (6.3-8.2) g/dL Albumin (3.5-5.0) g/dL Coronavirus (PCR) (Not Detectd) 06/23/20 Range/Units 13:58 WBC (3.8-10.6) k/uL RBC (4.30-5.90) m/uL Hgb (13.0-17.5) gm/dL Hct (39.0-53.0) % MCV (80.0-100.0) fL MCH (25.0-35.0) pg MCHC (31.0-37.0) g/dL RDW (11.5-15.5) % Plt Count (150-450) k/uL MPV Neutrophils % % Lymphocytes % % Monocytes % % Eosinophils % % Basophils % % Neutrophils # (1.3-7.7) k/uL Lymphocytes # (1.0-4.8) k/uL Monocytes # (0-1.0) k/uL Eosinophils # (0-0.7) k/uL Basophils # (0-0.2) k/uL Manual Slide Review Poikilocytosis Anisocytosis PT (9.0-12.0) sec INR (<1.2) APTT (22.0-30.0) sec Sodium (137-145) mmol/L Potassium (3.5-5.1) mmol/L Chloride (98-107) mmol/L Carbon Dioxide (22-30) mmol/L Anion Gap mmol/L BUN (9-20) mg/dL Creatinine (0.66-1.25) mg/dL Est GFR (CKD-EPI)AfAm (>60 ml/min/1.73 sqM) Est GFR (CKD-EPI)NonAf (>60 ml/min/1.73 sqM) Glucose (74-99) mg/dL Plasma Lactic Acid Isael (0.7-2.0) mmol/L Calcium (8.4-10.2) mg/dL Magnesium (1.6-2.3) mg/dL Total Bilirubin (0.2-1.3) mg/dL AST (17-59) U/L ALT (4-49) U/L Alkaline Phosphatase (38-126) U/L Troponin I (0.000-0.034) ng/mL NT-Pro-B Natriuret Pep pg/mL Total Protein (6.3-8.2) g/dL Albumin (3.5-5.0) g/dL Coronavirus (PCR) Not Detected (Not Detectd) Disposition Clinical Impression: Dyspnea, Acute exacerbation of congestive heart failure Disposition: ADMITTED IP TO THIS [facility] Condition: Stable Is patient prescribed a controlled substance at d/c from ED?: No Time of Disposition: 15:57 Decision to Admit Reason: Admit from EC Decision Date: 06/23/20 Decision Time: 15:57
--- NOTE | 2020-06-23 15:09 | XR ---
EXAMINATION TYPE: XR chest 2V DATE OF EXAM: 06/23/2020 COMPARISON: 11/23/2019 INDICATION: Dyspnea TECHNIQUE: Frontal and lateral views of the chest are obtained. FINDINGS: The heart size is mildly prominent. The pulmonary vasculature is normal. Bibasilar infiltrates are present. Small pleural effusions are present.. IMPRESSION: 1. Small bilateral pleural effusions with bibasilar infiltrates.
[2020-06-23] MEDS ORDERED: FUROSEMIDE 10 MG/ML 4 ML VIAL IV STA (15:14)
[2020-06-23] MEDS ORDERED: NALOXONE 0.4 MG/ML 1 ML VIAL IV PRN (15:54)
[2020-06-23] MEDS ORDERED: traMADol 50 MG TAB PO PRN (22:29)
[2020-06-23] MEDS ORDERED: NITROGLYCERIN SL TABS 0.4 MG TAB SUBLINGUAL PRN (22:35)
[2020-06-23] MEDS: ATORVASTATIN 80 MG TAB PO SCH (22:44)
[2020-06-23] MEDS: GABAPENTIN 300 MG CAP PO SCH (22:44)
[2020-06-24 06:36] LABS: Glucose,Whole Blood 103 mg/dL (75-99)
[2020-06-24] MEDS ORDERED: LACTULOSE 20 GM/30 ML CUP PO PRN (09:00)
[2020-06-24] MEDS ORDERED: FUROSEMIDE 20 MG TAB PO SCH (09:00)
[2020-06-24] MEDS ORDERED: APIXABAN 5 MG TAB PO SCH (09:00)
[2020-06-24] MEDS: POTASSIUM CHLORIDE ER 20 MEQ TAB.ER PO SCH (09:36)
[2020-06-24] MEDS: SERTRALINE 50 MG TAB PO SCH (09:36)
[2020-06-24] MEDS: SPIRONOLACTONE 25 MG TAB PO SCH (09:36)
[2020-06-24] MEDS: AMMONIUM LACTATE 12% CREAM 140 GM TUBE TOPICAL SCH ×2 (09:38→21:15)
--- NOTE | 2020-06-24 09:40 | P.CRDCN ---
History of Present Illness Consult date: 06/24/20 History of present illness: CHIEF COMPLAINT: CHF HISTORY OF PRESENT ILLNESS: This is a 50-year-old male with a past medical h istory significant for congestive heart failure, coronary artery disease with previous stent placement, hypertension, hyperlipidemia, atrial fibrillation, chronic kidney disease, and COPD with home O2 use. Patient follows in the office with Dr. Wood. We have been asked to see the patient in consultation for congestive heart failure. Patient examined this morning at the bedside. Patient states he started having increased shortness of breath on Saturday. He reports increased lower extremity swelling. Patient denies chest pain or pressure. He reports he is compliant with his medications. Denies increased salt intake. DIAGNOSTICS: EKG reveals atrial flutter with controlled ventricular rate. Chest xray small bilateral pleural effusions with bibasilar infiltrates Laboratory data: WBC 6.9. Hemoglobin 12.8. Platelet count 137. Sodium 139. Potassium 4.4. BUN 44. Creatinine 2.15. Troponin negative 1. BNP 15,300. Current home cardiac medications include Eliquis 5 mg daily, Aldactone 18.75 mg daily, Lasix 60 mg 3 times a day, Lipitor 80 mg daily REVIEW OF SYSTEMS: At the time of my exam: CONSTITUTIONAL: Denies fever or chills. HEENT: Denies blurred vision, vision changes, or eye pain. Denies hemoptysis CARDIOVASCULAR: Denies chest pain, orthopnea, PND or palpitations RESPIRATORY: Reports shortness of breath. Reports cough. GASTROINTESTINAL: Denies abdominal pain. Denies nausea or vomiting. HEMATOLOGIC: Denies bleeding disorders. GENITOURINARY: Denies any blood in urine. SKIN: Denies pruitis. Denies rash. PHYSICAL EXAM: VITAL SIGNS: Reviewed. GENERAL: Well-developed in no acute distress. HEENT: Head is normocephalic. Pupils are equal, round. Sclerae anicteric. Mucous membranes of the mouth are moist. Neck supple. No JVD or thyromegaly LUNGS: Respirations even and unlabored. Lungs diminished with crackles at the bases. HEART: Irregular rate and rhythm. S1 and S2 heard. ABDOMEN: Soft. Nondistended. Nontender. EXTREMITIES: Normal range of motion. No clubbing or cyanosis. Peripheral pulses intact. 2+ bilateral lower extremity edema with chronic discoloration noted. NEUROLOGIC: Awake and alert. Oriented x 3. ASSESSMENT: Acute exacerbation of chronic diastolic congestive heart failure Coronary artery disease with previous stent placement Hypertension Hyperlipidemia Paroxysmal atrial fibrillation/flutter, on anticoagulation with Eliquis Chronic kidney disease COPD with home O2 use Obesity: BMI 44.5 PLAN: Resume home cardiac medications Change Eliquis to twice a day dosing Obtain 2-D echo to assess cardiac structure and function Begin IV Lasix 60 mg every 8 hours Monitor kidney function Accurate I&O Daily weights Further recommendations pending patient's course Nurse practitioner note has been reviewed by physician. Signing provider agrees with the documented findings, assessment, and plan of care. Past Medical History Past Medical History: Atrial Fibrillation, Asthma, Coronary Artery Disease (CAD), Chest Pain / Angina, Heart Failure, COPD, Diabetes Mellitus, Deep Vein Thrombosis (DVT), Hyperlipidemia, Hypertension, Myocardial Infarction ([place]), Renal Disease, Sleep Apnea/CPAP/BIPAP, Thyroid Disorder, Vascular Disorder Additional Past Medical History / Comment(s): CHF, tracheobronchitis, CKD stage III, kidney stones, DVT L leg in 2004, KAMRYN without device use, colon abscess with bowel resection, multiple abdominal surgeries for a hiatal hernia that was complicated by prolonged hospitalization and prolonged ventilator dependent res piratory failure requiring a tracheostomy tube insertion, pvd-lower legs discolored/edematous, diverticular disease, chronic iron deficiency anemia, vertigo at times, Last Myocardial Infarction Date:: History of Any Multi-Drug Resistant Organisms: MRSA Date of last positivie culture/infection: 02/01/15 MDRO Source:: Abdomen Past Surgical History: Bowel Resection, Heart Catheterization With Stent, Hernia Repair Additional Past Surgical History / Comment(s): Colonoscopies, heart stents x 4, bowel resection with colostomy and colostomy reversal (removed a foot of pts colon)-2003, hernia repair with skin grafts and 2 fistula repairs (hospitalized for 1 year @[facility])-2010 MRSA 2014 in wounds. Past Anesthesia/Blood Transfusion Reactions: No Reported Reaction Additional Past Anesthesia/Blood Transfusion Reaction / Comment(s): Pt has received blood in past without reaction-2010 Date of Last Stent Placement:: 03/28/2015 Past Psychological History: Depression Additional Psychological History / Comment(s): PT IS DISABLED. PT LIVES WITH 2 PET CATS AND 1 DOG. HOME HAS A RAMP. USES A CANE CURRENTLY-. Smoking Status: Current every day smoker Past Alcohol Use History: None Reported Additional Past Alcohol Use History / Comment(s): STARTED SMOKING AGE 26, (1995) AND QUIT IN 2008. HE THEN RESUMED SMOKING IN 2015. PATIENT QUIT THIS YEAR IN NOVEMBER AND NOW SMOKES ONE TO TWO CIGARETTES A DAY. Past Drug Use History: None Reported - Past Family History Mother Family Medical History: Osteoarthritis (OA), Pneumonia Additional Family Medical History / Comment(s): osteoporosis. arthroscopy surgery for knee Father Family Medical History: Liver Disease, Renal Disease Additional Family Medical History / Comment(s): triple heart bypass. liver transplant. aortic aneursym Medications and Allergies Home Medications Medication Instructions Recorded Confirmed Type Sertraline [Zoloft] 150 mg PO DAILY 10/19/13 06/23/20 History Atorvastatin [Lipitor] 80 mg PO HS 03/25/15 06/23/20 History Furosemide [Lasix] 60 mg PO TID 11/05/19 06/23/20 History traMADol HCL 50 mg PO BID PRN 11/05/19 06/23/20 History Gabapentin [Neurontin] 300 mg PO HS 11/20/19 06/23/20 History Insulin Detemir [Levemir Flextouch] 50 units SQ HS #0 11/21/19 06/23/20 Rx Ammonium Lactate Cream [Lac-Hydrin 1 inch TOPICAL BID 06/23/20 06/23/20 History 12% Cream] Apixaban [Eliquis] 5 mg PO DAILY 06/23/20 06/23/20 History Lactulose [Constulose] 20 gm PO DAILY PRN 06/23/20 06/23/20 History Nitroglycerin Sl Tabs [Nitrostat] 0.4 mg SL Q5M PRN 06/23/20 06/23/20 History Potassium Chloride ER [K-Dur 20] 40 meq PO DAILY 06/23/20 06/23/20 History Spironolactone [Aldactone] 18.75 mg PO DAILY 06/23/20 06/23/20 History Allergies Allergy/AdvReac Type Severity Reaction Status Date / Time adhesive Allergy "PLASTIC Verified 11/23/19 18:01 TAPE PEELS SKIN,PAPER TAPE IS OK" linezolid Allergy Unknown Verified 11/23/19 18:01 penicillin G Allergy Rash/Hives Verified 11/23/19 18:01 Cephalosporins AdvReac FEVER Verified 11/23/19 18:01 Physical Exam Vitals: Vital Signs Temp Pulse Pulse Resp BP BP Pulse Ox 06/24/20 08:09 98.2 F 95 16 96/65 97 06/24/20 03:00 97.6 F 98 20 108/73 97 06/23/20 21:21 98 F 107 H 20 114/53 99 06/23/20 20:19 86 22 107/61 100 06/23/20 18:43 97.9 F 93 16 109/82 100 06/23/20 17:05 97.9 F 91 16 106/75 100 06/23/20 16:44 83 100/57 100 06/23/20 13:33 24 06/23/20 13:17 98.2 F 79 18 99/60 100 Intake and Output 06/23/20 06/24/20 06/24/20 22:59 06:59 14:59 Output Total 850 850 Balance -850 -850 Output: Urine 850 850 Other: Voiding Method Urinal Urinal Weight 140.614 kg Results 06/23/20 13:58 06/23/20 13:58 Cardiac Enzymes 06/23/20 06/23/20 Range/Units 13:58 13:58 AST 23 (17-59) U/L Troponin I <0.012 (0.000-0.034) ng/mL Coagulation 06/23/20 Range/Units 13:58 PT 11.5 (9.0-12.0) sec APTT 30.1 H (22.0-30.0) sec CBC 06/23/20 Range/Units 13:58 WBC 6.9 (3.8-10.6) k/uL RBC 4.29 L (4.30-5.90) m/uL Hgb 12.8 L (13.0-17.5) gm/dL Hct 36.6 L (39.0-53.0) % Plt Count 137 L (150-450) k/uL Comprehensive Metabolic Panel 06/23/20 Range/Units 13:58 Sodium 139 (137-145) mmol/L Potassium 4.4 (3.5-5.1) mmol/L Chloride 99 (98-107) mmol/L Carbon Dioxide 32 H (22-30) mmol/L BUN 44 H (9-20) mg/dL Creatinine 2.15 H (0.66-1.25) mg/dL Glucose 106 H (74-99) mg/dL Calcium 9.6 (8.4-10.2) mg/dL AST 23 (17-59) U/L ALT 16 (4-49) U/L Alkaline Phosphatase 85 (38-126) U/L Total Protein 7.0 (6.3-8.2) g/dL Albumin 3.5 (3.5-5.0) g/dL Current Medications Generic Name Dose Route Start Last Admin Trade Name Freq PRN Reason Stop Dose Admin Apixaban 5 mg 06/24/20 09:00 Apixaban 5 Mg Tab PO DAILY [facility] Atorvastatin Calcium 80 mg 06/23/20 22:30 06/23/20 22:44 Atorvastatin 80 Mg Tab PO 80 mg HS ZURI Administration Furosemide 60 mg 06/24/20 08:15 Furosemide 10 Mg/Ml 10 Ml Vial IV Q8HR [facility] Gabapentin 300 mg 06/23/20 22:30 06/23/20 22:44 Gabapentin 300 Mg Cap PO 300 mg HS ZURI Administration Insulin Detemir 50 unit 06/24/20 21:00 Insulin Detemir (Levemir) 100 Unit/Ml Syr SQ HS [facility] Lactic Acid 1 applic 06/24/20 09:00 Ammonium Lactate 12% Cream 140 Gm Tube TOPICAL BID [facility] Lactulose 20 gm 06/24/20 09:00 Lactulose 20 Gm/30 Ml Cup PO DAILY PRN Constipation Naloxone HCl 0.2 mg 06/23/20 15:54 Naloxone 0.4 Mg/Ml 1 Ml Vial IV Q2M PRN Opioid Reversal Nitroglycerin 0.4 mg 06/23/20 22:35 Nitroglycerin Sl Tabs 0.4 Mg Tab SUBLINGUAL Q5M PRN Chest Pain Potassium Chloride 40 meq 06/24/20 09:00 Potassium Chloride Er 20 Meq Tab.Er PO DAILY [facility] Sertraline HCl 150 mg 06/24/20 09:00 Sertraline 50 Mg Tab PO DAILY [facility] Spironolactone 18.75 mg 06/24/20 09:00 Spironolactone 25 Mg Tab PO DAILY [facility] Tramadol HCl 50 mg 06/23/20 22:29 06/23/20 22:56 Tramadol 50 Mg Tab PO 50 mg BID PRN Administration Pain Intake and Output 06/23/20 06/24/20 06/24/20 22:59 06:59 14:59 Output Total 850 850 Balance -850 -850 Output: Urine 850 850 Other: Voiding Method Urinal Urinal Weight 140.614 kg 06/23/20 13:58 06/23/20 13:58
[2020-06-24] MEDS: FUROSEMIDE 10 MG/ML 10 ML VIAL IV SCH ×3 (09:43→23:19)
[2020-06-24] MEDS: APIXABAN 5 MG TAB PO SCH ×2 (09:43→21:15)
--- NOTE | 2020-06-24 11:41 | ECHOF ---
Referral Reason:LV function, CHF MEASUREMENTS -------- HEIGHT: 177.8 cm WEIGHT: 140.6 kg BP: RVIDd: 3.3 cm (< 3.3) IVSd: 1.5 cm (0.6 - 1.1) LVIDd: 4.4 cm (3.9 - 5.3) LVPWd: 1.5 cm (0.6 - 1.1) IVSs: 1.8 cm LVIDs: 3.2 cm LVPWs: 1.8 cm LA Diam: 5.1 cm (2.7 - 3.8) Ao Diam: 3.4 cm (2.0 - 3.7) AV Cusp: 2.5 cm (1.5 - 2.6) MV EXCURSION: 15.009 mm (> 18.000) MV EF SLOPE: 60 mm/s (70 - 150) EPSS: 1.4 cm RAP: 5.00 mmHg RVSP: 47.41 mmHg FINDINGS -------- Atrial fibrillation. This was a technically difficult study with suboptimal views. The left ventricular size is normal. There is moderate concentric left ventricular hypertrophy. O verall left ventricular systolic function is normal with, an EF between 55 - 60 %. Apical inferior LV wall motion is hypokinetic. Apical septum LV wall motion is hypokinetic. The right ventricle is mildly enlarged. The left atrium is moderately dilated. 5.0mg of Lumason was utilized for enhancement of images There is mild aortic valve sclerosis. Moderate mitral regurgitation is present. Mild tricuspid regurgitation present. There is moderate pulmonary hypertension. The right ventric ular systolic pressure, as measured by Doppler, is 47.41mmHg. The pulmonic valve was not well visualized. The aortic root size is normal. CONCLUSIONS -------- 1. This was a technically difficult study with suboptimal views. 2. The left ventricular size is normal. 3. There is moderate concentric left ventricular hypertrophy. 4. Overall left ventricular systolic function is normal with, an EF between 55 - 60 %. 5. Apical inferior LV wall motion is hypokinetic. 6. Apical septum LV wall motion is hypokinetic. 7. The right ventricle is mildly enlarged. 8. The left atrium is moderately dilated. 9. 5.0mg of Lumason was utilized for enhancement of images 10. Moderate mitral regurgitation is present. 11. Mild tricuspid regurgitation present. 12. There is moderate pulmonary hypertension. 13. The right ventricular systolic pressure, as measured by Doppler, is 47.41mmHg. TECHNICAL INSTRUCTOR COURSE DEVELOPER: MATT Nichole
--- NOTE | 2020-06-24 11:49 | P.CONS ---
History of Present Illness - Reason for Consult Consult date: 06/24/20 wound care - History of Present Illness this is a 50-year-old pleasant male who presents with nonhealing ulcerations been seen on the observation unit. Patient states that ulcerations have been there since 2010. There periodically open and close. Patient had hernia surgery back in 2010. At that time he went to the wound care center with a utilize absorptive silver for healing. Patient states that the ulcerations were healed however they reopen multiple times. Has significant amount of drainage noted from the site. Patient's past medical history significant for diabetes, atrial fibrillation, congestive heart, COPD, myocardial infarction, chronic disease stage III. History of MRSA back in 2014. Review of Systems Review Of Systems: Constitutional: No fever, no chills, no night sweats. No weight change. No weakness, fatigue or lethargy. No daytime sleepiness. Integumentary:reports wounds, no lesions. No rash or pruritus. No unusual bruising. No change in hair or nails. Past Medical History Past Medical History: Atrial Fibrillation, Asthma, Coronary Artery Disease (CAD), Chest Pain / Angina, Heart Failure, COPD, Diabetes Mellitus, Deep Vein Thrombosis (DVT), Hyperlipidemia, Hypertension, Myocardial Infarction ([place]), Renal Disease, Sleep Apnea/CPAP/BIPAP, Thyroid Disorder, Vascular Disorder Additional Past Medical History / Comment(s): CHF, tracheobronchitis, CKD stage III, kidney stones, DVT L leg in 2004, KAMRYN without device use, colon abscess with bowel resection, multiple abdominal surgeries for a hiatal hernia that was complicated by prolonged hospitalization and prolonged ventilator dependent respiratory failure requiring a tracheostomy tube insertion, pvd-lower legs discolored/edematous, diverticular disease, chronic iron deficiency anemia, vertigo at times, Last Myocardial Infarction Date:: History of Any Multi-Drug Resistant Organisms: MRSA Year Discovered:: 02/01/15 MDRO Source:: Abdomen Past Surgical History: Bowel Resection, Heart Catheterization With Stent, Hernia Repair Additional Past Surgical History / Comment(s): Colonoscopies, heart stents x 4, bowel resection with colostomy and colostomy reversal (removed a foot of pts colon)-2003, hernia repair with skin grafts and 2 fistula repairs (hospitalized for 1 year @[facility]2010 MRSA 2015 in wounds. Past Anesthesia/Blood Transfusion Reactions: No Reported Reaction Additional Past Anesthesia/Blood Transfusion Reaction / Comm: Pt has received blood in past without reaction-2010 Date of Last Stent Placement:: 03/28/2015 Past Psychological History: Depression Additional Psychological History / Comment(s): PT IS DISABLED. PT LIVES WITH 2 PET CATS AND 1 DOG. HOME HAS A RAMP. USES A CANE CURRENTLY-. Smoking Status: Current every day smoker Past Alcohol Use History: None Reported Additional Past Alcohol Use History / Comment(s): STARTED SMOKING AGE 26, (1995) AND QUIT IN 2008. HE THEN RESUMED SMOKING IN 2015. PATIENT QUIT THIS YEAR IN NOVEMBER AND NOW SMOKES ONE TO TWO CIGARETTES A DAY. Past Drug Use History: None Reported - Past Family History Mother Family Medical History: Osteoarthritis (OA), Pneumonia Additional Family Medical History / Comment(s): osteoporosis. arthroscopy surgery for knee Father Family Medical History: Liver Disease, Renal Disease Additional Family Medical History / Comment(s): triple heart bypass. liver transplant. aortic aneursym Medications and Allergies Home Medications Medication Instructions Recorded Confirmed Type Sertraline [Zoloft] 150 mg PO DAILY 10/19/13 06/23/20 History Atorvastatin [Lipitor] 80 mg PO HS 03/25/15 06/23/20 History Furosemide [Lasix] 60 mg PO TID 11/05/19 06/23/20 History traMADol HCL 50 mg PO BID PRN 11/05/19 06/23/20 History Gabapentin [Neurontin] 300 mg PO HS 11/20/19 06/23/20 History Insulin Detemir [Levemir Flextouch] 50 units SQ HS #0 11/21/19 06/23/20 Rx Ammonium Lactate Cream [Lac-Hydrin 1 inch TOPICAL BID 06/23/20 06/23/20 History 12% Cream] Apixaban [Eliquis] 5 mg PO DAILY 06/23/20 06/23/20 History Lactulose [Constulose] 20 gm PO DAILY PRN 06/23/20 06/23/20 History Nitroglycerin Sl Tabs [Nitrostat] 0.4 mg SL Q5M PRN 06/23/20 06/23/20 History Potassium Chloride ER [K-Dur 20] 40 meq PO DAILY 06/23/20 06/23/20 History Spironolactone [Aldactone] 18.75 mg PO DAILY 06/23/20 06/23/20 History Allergies Allergy/AdvReac Type Severity Reaction Status Date / Time adhesive Allergy "PLASTIC Verified 11/23/19 18:01 TAPE PEELS SKIN,PAPER TAPE IS OK" linezolid Allergy Unknown Verified 11/23/19 18:01 penicillin G Allergy Rash/Hives Verified 11/23/19 18:01 Cephalosporins AdvReac FEVER Verified 11/23/19 18:01 Physical Exam Vitals: Vital Signs Temp Pulse Pulse Resp BP BP Pulse Ox 06/24/20 09:00 95 16 06/24/20 08:09 98.2 F 95 16 96/65 97 06/24/20 03:00 97.6 F 98 20 108/73 97 06/23/20 21:21 98 F 107 H 20 114/53 99 06/23/20 20:19 86 22 107/61 100 06/23/20 18:43 97.9 F 93 16 109/82 100 06/23/20 17:05 97.9 F 91 16 106/75 100 06/23/20 16:44 83 100/57 100 06/23/20 13:33 24 06/23/20 13:17 98.2 F 79 18 99/60 100 Intake and Output 06/23/20 06/24/20 06/24/20 22:59 06:59 14:59 Intake Total 480 Output Total 850 850 950 Balance -850 -850 -470 Intake: Oral 480 Output: Urine 850 850 950 Other: Voiding Method Urinal Urinal Urinal Weight 140.614 kg Physical exam: General Appearance: Alert, cooperative, no distress, appears stated age. Skin: full thickness open ulceration to the midline abdomen, cluster 7, ulce rations have that layer exposure with granulation seen throughout no undermining or tunneling noted. Significant amount of slough throughout.. Wound shows scarring and dry scaly skin.all other Skin color, texture, tugor normal, no rashes or lesions. Neurologic: Alert oriented x3 Results CBC & Chem 7: 06/23/20 13:58 06/23/20 13:58 Labs: Abnormal Lab Results - Last 24 Hours (Table) 06/23/20 06/23/20 06/23/20 Range/Units 13:58 13:58 13:58 RBC 4.29 L (4.30-5.90) m/uL Hgb 12.8 L (13.0-17.5) gm/dL Hct 36.6 L (39.0-53.0) % RDW 17.4 H (11.5-15.5) % Plt Count 137 L (150-450) k/uL APTT 30.1 H (22.0-30.0) sec Carbon Dioxide 32 H (22-30) mmol/L BUN 44 H (9-20) mg/dL Creatinine 2.15 H (0.66-1.25) mg/dL Glucose 106 H (74-99) mg/dL POC Glucose (mg/dL) (75-99) mg/dL Total Bilirubin 1.5 H (0.2-1.3) mg/dL 06/24/20 Range/Units 06:35 RBC (4.30-5.90) m/uL Hgb (13.0-17.5) gm/dL Hct (39.0-53.0) % RDW (11.5-15.5) % Plt Count (150-450) k/uL APTT (22.0-30.0) sec Carbon Dioxide (22-30) mmol/L BUN (9-20) mg/dL Creatinine (0.66-1.25) mg/dL Glucose (74-99) mg/dL POC Glucose (mg/dL) 103 H (75-99) mg/dL Total Bilirubin (0.2-1.3) mg/dL Assessment and Plan (1) Nonhealing skin ulcer with fat layer exposed Current Visit: Yes Status: Acute Code(s): L98.492 - NON-PRS CHRONIC ULCER OF SKIN OF SITES W FAT LAYER EXPOSED SNOMED Code(s): 58744667 (2) Diabetes with skin ulcer Current Visit: Yes Status: Acute Code(s): E11.622 - TYPE 2 DIABETES MELLITUS WITH OTHER SKIN ULCER; L98.499 - NON-PRESSURE CHRONIC ULCER OF SKIN OF SITES W UNSP SEVERITY SNOMED Code(s): 53882206 Plan: apply honey alginate, saline moistened gauze, dry gauze secured paper tape. Change Saturday. Patient may benefit from outpatient wound care therapy. Patient will continue the wound treatment with homecare. Thank you for the consultation any questions please contact the wound care c enter DNP note has been reviewed and discussed with Dr. Jefferson and the impression and plan of care has been directed as dictated.
[2020-06-24 11:57] LABS: Glucose,Whole Blood 175 mg/dL (75-99)
[2020-06-24 16:44] LABS: Glucose,Whole Blood 110 mg/dL (75-99)
[2020-06-24 17:11] LABS: Hemoglobin A1C 5.8 % (4.0-6.0)
--- NOTE | 2020-06-24 20:09 | P.HPIM ---
History of Present Illness H&P Date: 06/24/20 Chief Complaint: Shortness of breath edema History of presenting complaint: This is a pleasant 50-year-old patient with extensive medical history. Patient follows with visiting physicians. Dr. Chaney. Chronic stable medical conditions include diabetes with peripheral neuropathy, coronary artery disease with stent, COPD, hypertension, hyperlipidemia, chronic kidney disease, kidney stones,(s) sleep apnea does not use a device, multiple abdominal surgeries for hiatal hernia, also history of tracheostomy, peripheral arterial disease, diverticulosis,. 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 Normally uses a scooter or a walker to get about. Patient has chronic breakdown of superficial skin on the abdominal wall from scratching. Patient was sent in by his visiting nurse was noticed that patient is requiring more than his usual amount of oxygen. Patient has noticed increased swelling of lower extremity and some shortness of breath last 4-5 days. Guarded with a slight congested cough. No fever no chills. Appetite is good. No abdominal pain. Patient's chronic abdominal wall excoriation from scratching. No fever no chills. Review of systems: GEN.: Tired EYES: None HEENT: None NECK: None RESPIRATORY: None CARDIOVASCULAR: As above GASTROINTESTINAL: None GENITOURINARY: None MUSCULOSKELETAL: None LYMPHATICS: None HEMATOLOGICAL: None PSYCHIATRY: None NEUROLOGICAL: Some chronic pain in the lower extremities. Past medical history to include: Atrial fibrillation, coronary artery disease with stent, congestive heart failure EF 30-35%, COPD, DVT, hypertension, hyperlipidemia, chronic kidney disease, obstructive sleep apnea, hypothyroid, peripheral artery disease, chronic kidney disease stage III, kidney stones, DVT in left leg in 2004,: Abscess with bowel resection, multiple abdominal surgeries for hiatal hernia,. Bladder prolonged hospitalization and prolonged medical-related dependent, with a tracheostomy tube, peripheral arterial disease, colonic diverticulosis, iron deficiency anemia,. Diabetes with peripheral neuropathy Social history: Patient is on disability. Patient smoked for about 10 years and stopped in 2008. No alcohol. Patient lives alone. Does have a scooter and a walker Physical examination: VITAL SIGNS: 98.2, 79, 18, 99/60, 100% on 4 L repeat 100% on room air GENERAL: BMI 44.5, laying in bed, not in distress EYES: Pupils equal. Conjunctiva normal. HEENT: External appearance of nose and ears normal, oral cavity grossly normal. NECK: JVD unable to assess; masses not palpable. HEART: Heart sounds irregular; negligible edema. LUNGS: Respiratory rate increased; decreased breath sounds ABDOMEN: Soft, nontender, liver spleen not palpable, no masses palpable, distended, with superficial breakdown of skin, and multiple areas. Dressing also present.. PSYCH: Alert and oriented x3; mood and affect normal. NEUROLOGICAL: Cranial nerves grossly intact; no facial asymmetry, power and sensation grossly intact. LYMPHATICS: No lymph nodes palpable in the axilla and neck EXTREMITIES: Pigmentation of the both lower extremity distally INVESTIGATIONS, reviewed in the clinical context: White count 6.9 hemoglobin 12.8 platelets 137 potassium 4.4 BUN 44 creatinine 2.15 Troponin I less than 0.012, proBNP 15,300 Coronavirus-P/Cr-not detected EKG tracing personally reviewed by me-atrial flutter with a rate of 90 Chest x-ray film personally reviewed by me-cardiomegaly with pulmonary edema, small pleural effusion 2-D echocardiogram-atrial flutter, EF 55 have a 60%, moderate concentric LVH, some wall motion abnormality, moderate mitral regurgitation, moderate pulmonary hypertension Previous testing: April 2020-BUN 72 creatinine 2.4 Assessment: -Acute on chronic congestive heart exacerbation EF of 50-55% from diastolic dysfunction from underlying coronary artery disease, -Persistent atrial flutter fibrillation with ventricular rate controlled -Multiple superficial abdominal wall excoriations from scratching, with possible secondary infection-Dermatotillomania -COPD in an ex-smoker -Chronic DVT chronically on anticoagulation -Hyperlipidemia -Essential hypertension -Chronic kidney disease stage III from diabetic nephropathy and hypertensive nephrosclerosis -Obstructive sleep apnea does not use a device -Hypothyroid -Peripheral arterial disease -Multiple abdominal wall hernia from prior surgery -Colonic diverticulosis -Morbid obesity BMI 44.6 -Diabetes mellitus type 2 chronically on insulin. With peripheral neuropathy Plan: Patient started on IV Lasix 60 mg every 8. Also put on a fluid restriction. Electrolytes will be followed closely. We will use Bicitra sent for the abdominal wall excoriation and also use IV Ancef. Other home medications resumed. Cardiology is consulted. Past Medical History Past Medical History: Atrial Fibrillation, Asthma, Coronary Artery Disease (CAD), Chest Pain / Angina, Heart Failure, COPD, Diabetes Mellitus, Deep Vein Thrombosis (DVT), Hyperlipidemia, Hypertension, Myocardial Infarction ([place]), Renal Disease, Sleep Apnea/CPAP/BIPAP, Thyroid Disorder, Vascular Disorder Additional Past Medical History / Comment(s): CHF, tracheobronchitis, CKD stage III, kidney stones, DVT L leg in 2004, KAMRYN without device use, colon abscess with bowel resection, multiple abdominal surgeries for a hiatal hernia that was complicated by prolonged hospitalization and prolonged ventilator dependent r espiratory failure requiring a tracheostomy tube insertion, pvd-lower legs discolored/edematous, diverticular disease, chronic iron deficiency anemia, vertigo at times, Last Myocardial Infarction Date:: History of Any Multi-Drug Resistant Organisms: MRSA Date of last positivie culture/infection: 02/01/15 MDRO Source:: Abdomen Past Surgical History: Bowel Resection, Heart Catheterization With Stent, Hernia Repair Additional Past Surgical History / Comment(s): Colonoscopies, heart stents x 4, bowel resection with colostomy and colostomy reversal (removed a foot of pts colon)-2003, hernia repair with skin grafts and 2 fistula repairs (hospitalized for 1 year @[facility])-2010 MRSA 2015 in wounds. Past Anesthesia/Blood Transfusion Reactions: No Reported Reaction Additional Past Anesthesia/Blood Transfusion Reaction / Comment(s): Pt has received blood in past without reaction-2010 Date of Last Stent Placement:: 03/28/2015 Past Psychological History: Depression Additional Psychological History / Comment(s): PT IS DISABLED. PT LIVES WITH 2 PET CATS AND 1 DOG. HOME HAS A RAMP. USES A CANE CURRENTLY-. Smoking Status: Current every day smoker Past Alcohol Use History: None Reported Additional Past Alcohol Use History / Comment(s): STARTED SMOKING AGE 26, (1995) AND QUIT IN 2008. HE THEN RESUMED SMOKING IN 2015. PATIENT QUIT THIS YEAR IN NOVEMBER AND NOW SMOKES ONE TO TWO CIGARETTES A DAY. Past Drug Use History: None Reported - Past Family History Mother Family Medical History: Osteoarthritis (OA), Pneumonia Additional Family Medical History / Comment(s): osteoporosis. arthroscopy surgery for knee Father Family Medical History: Liver Disease, Renal Disease Additional Family Medical History / Comment(s): triple heart bypass. liver transplant. aortic aneursym Medications and Allergies Home Medications Medication Instructions Recorded Confirmed Type Sertraline [Zoloft] 150 mg PO DAILY 10/19/13 06/23/20 History Atorvastatin [Lipitor] 80 mg PO HS 03/25/15 06/23/20 History Furosemide [Lasix] 60 mg PO TID 11/05/19 06/23/20 History traMADol HCL 50 mg PO BID PRN 11/05/19 06/23/20 History Gabapentin [Neurontin] 300 mg PO HS 11/20/19 06/23/20 History Insulin Detemir [Levemir Flextouch] 50 units SQ HS #0 11/21/19 06/23/20 Rx Ammonium Lactate Cream [Lac-Hydrin 1 inch TOPICAL BID 06/23/20 06/23/20 History 12% Cream] Apixaban [Eliquis] 5 mg PO DAILY 06/23/20 06/23/20 History Lactulose [Constulose] 20 gm PO DAILY PRN 06/23/20 06/23/20 History Nitroglycerin Sl Tabs [Nitrostat] 0.4 mg SL Q5M PRN 06/23/20 06/23/20 History Potassium Chloride ER [K-Dur 20] 40 meq PO DAILY 06/23/20 06/23/20 History Spironolactone [Aldactone] 18.75 mg PO DAILY 06/23/20 06/23/20 History Allergies Allergy/AdvReac Type Severity Reaction Status Date / Time adhesive Allergy "PLASTIC Verified 11/23/19 18:01 TAPE PEELS SKIN,PAPER TAPE IS OK" linezolid Allergy Unknown Verified 11/23/19 18:01 penicillin G Allergy Rash/Hives Verified 11/23/19 18:01 Cephalosporins AdvReac FEVER Verified 11/23/19 18:01 Physical Exam Vitals: Vital Signs Temp Pulse Pulse Resp BP BP Pulse Ox 06/24/20 08:09 98.2 F 95 16 96/65 97 06/24/20 03:00 97.6 F 98 20 108/73 97 06/23/20 21:21 98 F 107 H 20 114/53 99 06/23/20 20:19 86 22 107/61 100 06/23/20 18:43 97.9 F 93 16 109/82 100 06/23/20 17:05 97.9 F 91 16 106/75 100 06/23/20 16:44 83 100/57 100 06/23/20 13:33 24 06/23/20 13:17 98.2 F 79 18 99/60 100 Intake and Output 0106/24/20 06/24/20 22:59 06:59 14:59 Output Total 850 850 950 Balance -850 850 -755 Output: Urine 850 850 950 Other: Voiding Method Urinal Urinal Weight 140.614 kg Results CBC & Chem 7: 06/23/20 13:58 06/23/20 13:58 Labs: Abnormal Lab Results - Last 24 Hours (Table) 06/23/20 06/23/20 06/23/20 Range/Units 13:58 13:58 13:58 RBC 4.29 L (4.30-5.90) m/uL Hgb 12.8 L (13.0-17.5) gm/dL Hct 36.6 L (39.0-53.0) % RDW 17.4 H (11.5-15.5) % Plt Count 137 L (150-450) k/uL APTT 30.1 H (22.0-30.0) sec Carbon Dioxide 32 H (22-30) mmol/L BUN 44 H (9-20) mg/dL Creatinine 2.15 H (0.66-1.25) mg/dL Glucose 106 H (74-99) mg/dL POC Glucose (mg/dL) (75-99) mg/dL Total Bilirubin 1.5 H (0.2-1.3) mg/dL 06/24/20 Range/Units 06:35 RBC (4.30-5.90) m/uL Hgb (13.0-17.5) gm/dL Hct (39.0-53.0) % RDW (11.5-15.5) % Plt Count (150-450) k/uL APTT (22.0-30.0) sec Carbon Dioxide (22-30) mmol/L BUN (9-20) mg/dL Creatinine (0.66-1.25) mg/dL Glucose (74-99) mg/dL POC Glucose (mg/dL) 103 H (75-99) mg/dL Total Bilirubin (0.2-1.3) mg/dL Thrombosis Risk Factor Assmnt - Choose All That Apply Each Factor Represents 1 point: Abnormal pulmonary function (COPD), Acute [place], Heart failure (<1month) Each Risk Factor Represents 2 Points: Major surgery Each Risk Factor Represents 3 Points: History of DVT/PE Thrombosis Risk Factor Assessment Total Risk Factor Score: 8 Thrombosis Risk Factor Assessment Level: High Risk
[2020-06-24 20:28] LABS: Glucose,Whole Blood 156 mg/dL (75-99)
[2020-06-24] MEDS: ATORVASTATIN 80 MG TAB PO SCH (21:15)
[2020-06-24] MEDS: GABAPENTIN 300 MG CAP PO SCH (21:15)
[2020-06-24] MEDS: INSULIN DETEMIR (LEVEMIR) 100 UNIT/ML SYR SQ SCH (21:16)
[2020-06-25 06:28] LABS: Glucose,Whole Blood 108 mg/dL (75-99)
[2020-06-25 08:09] LABS: Calcium 9.3 mg/dL (8.4-10.2); Potassium 3.1 mmol/L (3.5-5.1)
[2020-06-25] MEDS: FUROSEMIDE 10 MG/ML 10 ML VIAL IV SCH ×2 (08:46→17:12)
[2020-06-25] MEDS: SPIRONOLACTONE 25 MG TAB PO SCH (08:47)
[2020-06-25] MEDS: SERTRALINE 50 MG TAB PO SCH (08:47)
[2020-06-25] MEDS: POTASSIUM CHLORIDE ER 20 MEQ TAB.ER PO SCH (08:47)
[2020-06-25] MEDS: APIXABAN 5 MG TAB PO SCH ×2 (08:48→21:33)
[2020-06-25] MEDS: AMMONIUM LACTATE 12% CREAM 140 GM TUBE TOPICAL SCH ×2 (08:50→21:33)
--- NOTE | 2020-06-25 09:35 | P.PN ---
Subjective Progress Note Date: 06/25/20 CHIEF COMPLAINT: CHF HISTORY OF PRESENT ILLNESS: 06/24/2020 This is a 50-year-old male with a past medical history significant for congestive heart failure, coronary artery disease with previous stent placement, hypertension, hyperlipidemia, atrial fibrillation, chronic kidney disease, and COPD with home O2 use. Patient follows in the office with Dr. Wood. We have been asked to see the patient in consultation for congestive heart failure. Patient examined this morning at the bedside. Patient states he started having increased shortness of breath on Saturday. He reports increased lower extremity swelling. Patient denies chest pain or pressure. He reports he is compliant with his medications. Denies increased salt intake. 06/25/2020 Patient examined this morning at the bedside. Patient states his shortness of breath is slightly improved from yesterday. He states he has not been out of bed and ambulating. He reports his edema is unchanged from yesterday. He remains on IV Lasix. Creatinine 2.14. BUN 40. Blood pressure 105/73. Echocardiogram performed reveals EF 55-60%, apical inferior LV wall hypokinesis and apical septal LV wall hypokinesis, moderate mitral regurgitation, mild tricuspid regurgitation and moderate pulmonary hypertension PHYSICAL EXAM: VITAL SIGNS: Reviewed. GENERAL: Well-developed in no acute distress. HEENT: Head is normocephalic. Pupils are equal, round. Sclerae anicteric. Mucous membranes of the mouth are moist. Neck supple. No JVD or thyromegaly LUNGS: Respirations even and unlabored. Lungs diminished with expiratory wheezing noted. HEART: Tachycardic. Irregular rate and rhythm. S1 and S2 heard. ABDOMEN: Soft. Nondistended. Nontender. EXTREMITIES: Normal range of motion. No clubbing or cyanosis. Peripheral pulses intact. 2+ bilateral lower extremity edema with chronic discoloration noted. NEUROLOGIC: Awake and alert. Oriented x 3. ASSESSMENT: Acute exacerbation of chronic diastolic congestive heart failure Coronary artery disease with previous stent placement Hypertension Hyperlipidemia Paroxysmal atrial fibrillation/flutter, on anticoagulation with Eliquis Chronic kidney disease COPD with home O2 use Obesity: BMI 44.5 Moderate pulmonary hypertension Valvular heart disease: Moderate mitral regurgitation and mild tricuspid regurgitation PLAN: Add metoprolol 25 mg twice a day Continue IV Lasix for today Monitor kidney function Accurate I&O Daily weights Further recommendations pending patient's course Nurse practitioner note has been reviewed by physician. Signing provider agrees with the documented findings, assessment, and plan of care. Objective - Vital Signs Vital signs: Vital Signs Temp 97.9 F 06/25/20 08:44 Pulse 101 H 06/25/20 08:44 Resp 18 06/25/20 08:44 BP 105/73 06/25/20 08:44 Pulse Ox 94 L 06/25/20 08:44 Intake & Output 06/24/20 06/25/20 06/25/20 18:59 06:59 18:59 Intake Total 960 240 Output Total 2500 4350 Balance -1540 -4110 Intake: Oral 960 240 Output: Urine 2500 4350 Other: Voiding Method Urinal Urinal # Voids 1 - Labs CBC & Chem 7: 06/23/20 13:58 06/25/20 06:42 Labs: Abnormal Lab Results - Last 24 Hours (Table) 06/24/20 06/24/20 06/24/20 Range/Units 11:51 16:42 20:25 Potassium (3.5-5.1) mmol/L Chloride (98-107) mmol/L Carbon Dioxide (22-30) mmol/L BUN (9-20) mg/dL Creatinine (0.66-1.25) mg/dL POC Glucose (mg/dL) 175 H 110 H 156 H (75-99) mg/dL 06/25/20 06/25/20 Range/Units 06:26 06:42 Potassium 3.1 L (3.5-5.1) mmol/L Chloride 94 L (98-107) mmol/L Carbon Dioxide 39 H (22-30) mmol/L BUN 40 H (9-20) mg/dL Creatinine 2.15 H (0.66-1.25) mg/dL POC Glucose (mg/dL) 108 H (75-99) mg/dL
[2020-06-25 12:38] LABS: Glucose,Whole Blood 155 mg/dL (75-99)
[2020-06-25] MEDS: METOPROLOL TARTRATE 25 MG TAB PO SCH ×2 (13:56→21:31)
[2020-06-25] MEDS: ceFAZolin 3 GM in SODIUM CHLORIDE 0.9% 100 ML IVPB SCH ×2 (14:00→21:32)
[2020-06-25 16:56] LABS: Glucose,Whole Blood 100 mg/dL (75-99)
[2020-06-25] MEDS: acetaZOLAMIDE 250 MG TAB PO SCH ×2 (17:12→21:33)
[2020-06-25 20:45] LABS: Glucose,Whole Blood 137 mg/dL (75-99)
[2020-06-25] MEDS: GABAPENTIN 300 MG CAP PO SCH (21:33)
[2020-06-25] MEDS: ATORVASTATIN 80 MG TAB PO SCH (21:33)
[2020-06-25] MEDS: INSULIN DETEMIR (LEVEMIR) 100 UNIT/ML SYR SQ SCH (21:33)
--- NOTE | 2020-06-25 22:33 | P.PN ---
Progress Note - Text Progress Note Date: 06/25/20 Chief Complaint: Shortness of breath edema History of presenting complaint: This is a pleasant 50-year-old patient with extensive medical history. Patient follows with visiting physicians. Dr. Chaney. Chronic stable medical conditions include diabetes with peripheral neuropathy, coronary artery disease with stent, COPD, hypertension, hyperlipidemia, chronic kidney disease, kidney stones,(s) sleep apnea does not use a device, multiple abdominal surgeries for hiatal hernia, also history of tracheostomy, peripheral arterial disease, diverticulosis,. 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 Normally uses a scooter or a walker to get about. Patient has chronic breakdown of superficial skin on the abdominal wall from scratching. Patient was sent in by his visiting nurse was noticed that patient is requiring more than his usual amount of oxygen. Patient has noticed increased swelling of lower extremity and some shortness of breath last 4-5 days. Guarded with a slight congested cough. No fever no chills. Appetite is good. No abdominal pain. Patient's chronic abdominal wall excoriation from scratching. No fever no chills. Admitted with acute on chronic congestive heart exacerbation. Started on IV Lasix. Also put on IV Ancef for abdominal wall excoriation secondary cellulitis. Today-remains on IV Lasix. Fluid restriction. Breathing better. Oral intake is good. Over 7 L in negative fluid balance. Review of systems: Was done for constitutional, cardiovascular, GI, pulmonary. relevant finding as above Active Medications Acetazolamide (Acetazolamide 250 Mg Tab) 250 mg PO BID [facility] Last Admin: 06/25/20 21:33 Dose: 250 mg Documented by: Apixaban (Apixaban 5 Mg Tab) 5 mg PO BID [facility] Last Admin: 06/25/20 21:33 Dose: 5 mg Documented by: Atorvastatin Calcium (Atorvastatin 80 Mg Tab) 80 mg PO [facility] Last Admin: 06/25/20 21:33 Dose: 80 mg Documented by: Furosemide (Furosemide 10 Mg/Ml 10 Ml Vial) 60 mg IV Q8HR [facility] Last Admin: 06/25/20 17:12 Dose: 60 mg Documented by: Gabapentin (Gabapentin 300 Mg Cap) 300 mg PO [facility] Last Admin: 06/25/20 21:33 Dose: 300 mg Documented by: Cefazolin Sodium 3 gm/ Sodium (Chloride) 100 mls @ 200 mls/hr IVPB Q8H [facility] Last Admin: 06/25/20 21:32 Dose: 200 mls/hr Documented by: Insulin Detemir (Insulin Detemir (Levemir) 100 Unit/Ml Syr) 50 unit SQ HS [facility] Last Admin: 06/25/20 21:33 Dose: 50 unit Documented by: Lactic Acid (Ammonium Lactate 12% Cream 140 Gm Tube) 1 applic TOPICAL BID [facility] Last Admin: 06/25/20 21:33 Dose: 1 applic Documented by: Lactulose (Lactulose 20 Gm/30 Ml Cup) 20 gm PO DAILY PRN PRN Reason: Constipation Metoprolol Tartrate (Metoprolol Tartrate 25 Mg Tab) 25 mg PO BID [facility] Last Admin: 06/25/20 21:31 Dose: Not Given Documented by: Naloxone HCl (Naloxone 0.4 Mg/Ml 1 Ml Vial) 0.2 mg IV Q2M PRN PRN Reason: Opioid Reversal Nitroglycerin (Nitroglycerin Sl Tabs 0.4 Mg Tab) 0.4 mg SUBLINGUAL Q5M PRN PRN Reason: Chest Pain Potassium Chloride (Potassium Chloride Er 20 Meq Tab.Er) 40 meq PO DAILY [facility] Last Admin: 06/25/20 08:47 Dose: 40 meq Documented by: Sertraline HCl (Sertraline 50 Mg Tab) 150 mg PO DAILY [facility] Last Admin: 06/25/20 08:47 Dose: 150 mg Documented by: Spironolactone (Spironolactone 25 Mg Tab) 18.75 mg PO DAILY [facility] Last Admin: 06/25/20 08:47 Dose: 18.75 mg Documented by: Tramadol HCl (Tramadol 50 Mg Tab) 50 mg PO BID PRN PRN Reason: Pain Last Admin: 06/23/20 22:56 Dose: 50 mg Documented by: Past medical history to include: Atrial fibrillation, coronary artery disease with stent, congestive heart failure EF 30-35%, COPD, DVT, hypertension, hyperlipidemia, chronic kidney di sease, obstructive sleep apnea, hypothyroid, peripheral artery disease, chronic kidney disease stage III, kidney stones, DVT in left leg in 2004,: Abscess with bowel resection, multiple abdominal surgeries for hiatal hernia,. Bladder prolonged hospitalization and prolonged medical-related dependent, with a tracheostomy tube, peripheral arterial disease, colonic diverticulosis, iron deficiency anemia,. Diabetes with peripheral neuropathy Social history: Patient is on disability. Patient smoked for about 10 years and stopped in 2008. No alcohol. Patient lives alone. Does have a scooter and a walker Physical examination: VITAL SIGNS: 97.9, 101, 18, 105/73, 94% on 2 L GENERAL: BMI 44.5, laying in bed, not in distress EYES: Pupils equal. Conjunctiva normal. HEENT: External appearance of nose and ears normal, oral cavity grossly normal. NECK: JVD unable to assess; masses not palpable. HEART: Heart sounds irregular; negligible edema. LUNGS: Respiratory rate increased; decreased breath sounds ABDOMEN: Soft, nontender, liver spleen not palpable, no masses palpable, distended, with superficial breakdown of skin, and multiple areas. Dressing also present.. PSYCH: Alert and oriented x3; mood and affect normal. EXTREMITIES: Pigmentation of the both lower extremity distally INVESTIGATIONS, reviewed in the clinical context: June 25: White count 3.1 BUN 40 creatinine 2.15 White count 6.9 hemoglobin 12.8 platelets 137 potassium 4.4 BUN 44 creatinine 2.15 Troponin I less than 0.012, proBNP 15,300 Coronavirus-P/Cr-not detected EKG tracing personally reviewed by me-atrial flutter with a rate of 90 Chest x-ray film personally reviewed by me-cardiomegaly with pulmonary edema, small pleural effusion 2-D echocardiogram-atrial flutter, EF 55 have a 60%, moderate concentric LVH, some wall motion abnormality, moderate mitral regurgitation, moderate pulmonary hypertension Previous testing: April 2020-BUN 72 creatinine 2.4 Assessment: -Acute on chronic congestive heart exacerbation EF of 50-55% from diastolic dysfunction from underlying coronary artery disease, -Persistent atrial flutter fibrillation with ventricular rate controlled -Multiple superficial abdominal wall excoriations from scratching, with possible secondary infection-Dermatotillomania -COPD in an ex-smoker -Chronic DVT chronically on anticoagulation -Hyperlipidemia -Essential hypertension -Chronic kidney disease stage III from diabetic nephropathy and hypertensive nephrosclerosis -Obstructive sleep apnea does not use a device -Hypothyroid -Peripheral arterial disease -Multiple abdominal wall hernia from prior surgery -Colonic diverticulosis -Morbid obesity BMI 44.6 -Diabetes mellitus type 2 chronically on insulin. With peripheral neuropathy Plan: Continue IV Lasix 60 mg every 8. . fluid restriction. Electrolytes will be followed closely. IV Ancef. Discussed with patient
[2020-06-26] MEDS: FUROSEMIDE 10 MG/ML 10 ML VIAL IV SCH ×2 (00:31→09:01)
[2020-06-26] MEDS: ceFAZolin 3 GM in SODIUM CHLORIDE 0.9% 100 ML IVPB SCH (06:23)
[2020-06-26 06:24] LABS: Glucose,Whole Blood 96 mg/dL (75-99)
[2020-06-26 07:41] LABS: Calcium 9.4 mg/dL (8.4-10.2); Potassium 3.2 mmol/L (3.5-5.1)
[2020-06-26 09:01] VITALS: BP 135/85; PULSE 82; RESP 18; TEMP 97.5
[2020-06-26] MEDS: POTASSIUM CHLORIDE ER 20 MEQ TAB.ER PO SCH (09:01)
[2020-06-26] MEDS: SERTRALINE 50 MG TAB PO SCH (09:02)
[2020-06-26] MEDS: acetaZOLAMIDE 250 MG TAB PO SCH (09:02)
[2020-06-26] MEDS: APIXABAN 5 MG TAB PO SCH (09:02)
[2020-06-26] MEDS: METOPROLOL TARTRATE 25 MG TAB PO SCH (09:04)
[2020-06-26] MEDS: SPIRONOLACTONE 25 MG TAB PO SCH (09:04)
[2020-06-26] MEDS: AMMONIUM LACTATE 12% CREAM 140 GM TUBE TOPICAL SCH (09:08)
--- NOTE | 2020-06-26 11:21 | P.PN ---
Subjective Progress Note Date: 06/26/20 CHIEF COMPLAINT: CHF HISTORY OF PRESENT ILLNESS: 06/24/2020 This is a 50-year-old male with a past medical history significant for congestive heart failure, coronary artery disease with previous stent placement, hypertension, hyperlipidemia, atrial fibrillation, chronic kidney disease, and COPD with home O2 use. Patient follows in the office with Dr. Wood. We have been asked to see the patient in consultation for congestive heart failure. Patient examined this morning at the bedside. Patient states he started having increased shortness of breath on Saturday. He reports increased lower extremity swelling. Patient denies chest pain or pressure. He reports he is compliant with his medications. Denies increased salt intake. 06/25/2020 Patient examined this morning at the bedside. Patient states his shortness of breath is slightly improved from yesterday. He states he has not been out of bed and ambulating. He reports his edema is unchanged from yesterday. He remains on IV Lasix. Creatinine 2.14. BUN 40. Blood pressure 105/73. Echocardiogram performed reveals EF 55-60%, apical inferior LV wall hypokinesis and apical septal LV wall hypokinesis, moderate mitral regurgitation, mild tricuspid regurgitation and moderate pulmonary hypertension 06/26/2020 Patient examined this morning at the bedside. Patient states his shortness of breath has improved. He denies chest pain or pressure. He continues to have lower extremity edema but it is improved. BUN 41. Creatinine 2.56. Patients heart rate remains mildly uncontrolled this morning. PHYSICAL EXAM: VITAL SIGNS: Reviewed. GENERAL: Well-developed in no acute distress. HEENT: Head is normocephalic. Pupils are equal, round. Sclerae anicteric. Mucous membranes of the mouth are moist. Neck supple. No JVD or thyromegaly LUNGS: Respirations even and unlabored. Lungs diminished. HEART: Tachycardic. Irregular rate and rhythm. S1 and S2 heard. ABDOMEN: Soft. Nondistended. Nontender. EXTREMITIES: Normal range of motion. No clubbing or cyanosis. Peripheral pulses intact. 2+ bilateral lower extremity edema with chronic discoloration noted. NEUROLOGIC: Awake and alert. Oriented x 3. ASSESSMENT: Acute exacerbation of chronic diastolic congestive heart failure Coronary artery disease with previous stent placement Hypertension Hyperlipidemia Paroxysmal atrial fibrillation/flutter, on anticoagulation with Eliquis Chronic kidney disease COPD with home O2 use Obesity: BMI 44.5 Moderate pulmonary hypertension Valvular heart disease: Moderate mitral regurgitation and mild tricuspid regurgitation PLAN: Transition patient to oral Lasix Increase metoprolol to 50 mg twice a day Patient is stable for discharge home today from a cardiac perspective. He is to follow-up in the office with Dr. Wood. Nurse practitioner note has been reviewed by physician. Signing provider agrees with the documented findings, assessment, and plan of care. Objective - Vital Signs Vital signs: Vital Signs Temp 97.5 F L 06/26/20 08:59 Pulse 82 06/26/20 09:00 Resp 18 06/26/20 09:00 BP 135/85 06/26/20 08:59 Pulse Ox 97 06/26/20 08:59 Intake & Output 06/25/20 06/26/20 06/26/20 18:59 06:59 18:59 Intake Total 480 480 240 Output Total 2500 2850 Balance -2020 -2370 240 Intake: Oral 480 480 240 Output: Urine 2500 2850 Other: Voiding Method Urinal Urinal Urinal # Voids 2 - Labs CBC & Chem 7: 06/23/20 13:58 06/26/20 06:35 Labs: Abnormal Lab Results - Last 24 Hours (Table) 06/25/20 06/25/20 06/25/20 Range/Units 12:27 16:50 20:44 Sodium (137-145) mmol/L Potassium (3.5-5.1) mmol/L Chloride (98-107) mmol/L Carbon Dioxide (22-30) mmol/L BUN (9-20) mg/dL Creatinine (0.66-1.25) mg/dL POC Glucose (mg/dL) 155 H 100 H 137 H (75-99) mg/dL 06/26/20 Range/Units 06:35 Sodium 136 L (137-145) mmol/L Potassium 3.2 L (3.5-5.1) mmol/L Chloride 92 L (98-107) mmol/L Carbon Dioxide 35 H (22-30) mmol/L BUN 41 H (9-20) mg/dL Creatinine 2.56 H (0.66-1.25) mg/dL POC Glucose (mg/dL) (75-99) mg/dL
[2020-06-26] MEDS ORDERED: POTASSIUM CHLORIDE ER 20 MEQ TAB.ER PO STA (12:01)
[2020-06-26] MEDS ORDERED: FUROSEMIDE 20 MG TAB PO SCH (16:00)
[2020-06-26] MEDS ORDERED: METOPROLOL TARTRATE 50 MG TAB PO SCH (21:00)
--- NOTE | 2020-06-26 22:45 | P.DS ---
Providers Date of admission: 06/25/20 09:20 Expected date of discharge: 06/26/20 Attending physician: Vamshi Barrera Consults: 06/23/20 15:55 Consult Physician Routine Consulting Provider: Frank Reece Consult Reason/Comments: heart failure exacerbation Do you want consulting provider notified?: Yes Primary care physician: [facility] Course: Chief Complaint: Shortness of breath edema History of presenting complaint: This is a pleasant 50-year-old patient with extensive medical history. Patient follows with visiting physicians. Dr. Chaney. Chronic stable medical conditions include diabetes with peripheral neuropathy, coronary artery disease with stent, COPD, hypertension, hyperlipidemia, chronic kidney disease, kidney stones,(s) sleep apnea does not use a device, multiple abdominal surgeries for hiatal hernia, also history of tracheostomy, peripheral arterial disease, diverticulosis,. 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 Normally uses a scooter or a walker to get about. Patient has chronic breakdown of superficial skin on the abdominal wall from scratching. Patient was sent in by his visiting nurse was noticed that patient is requiring more than his usual amount of oxygen. Patient has noticed increased swelling of lower extremity and some shortness of breath last 4-5 days. Guarded with a slight congested cough. No fever no chills. Appetite is good. No abdominal pain. Patient's chronic abdominal wall excoriation from scratching. No fever no chills. Admitted with acute on chronic congestive heart exacerbation. Started on IV Lasix. Also put on IV Ancef for abdominal wall excoriation secondary cellulitis. Patient put out over 11 L Today-breathing much improved. Discussed with the patient. Swished to oral Lasix. Some elevation of creatinine. Resume on her Lasix tomorrow. Discussed with the patient. Cleared by cardiology. Also changed to oral Keflex Discussion and discharge planning more than 35 minutes Consultation: Dr. Shepherd from cardiology Past medical history to include: Atrial fibrillation, coronary artery disease with stent, congestive heart failure EF 30-35%, COPD, DVT, hypertension, hyperlipidemia, chronic kidney disease, obstructive sleep apnea, hypothyroid, peripheral artery disease, chronic kidney disease stage III, kidney stones, DVT in left leg in 2004,: Abscess with bowel resection, multiple abdominal surgeries for hiatal hernia,. Bladder prolonged hospitalization and prolonged medical-related dependent, with a tracheostomy tube, peripheral arterial disease, colonic diverticulosis, iron deficiency anemia,. Diabetes with peripheral neuropathy Social history: Patient is on disability. Patient smoked for about 10 years and stopped in 2008. No alcohol. Patient lives alone. Does have a scooter and a walker Physical examination: VITAL SIGNS: 97.5, 82, 18, 100 3587, 97% on 2 L GENERAL: BMI 44.5, laying in bed, not in distress EYES: Pupils equal. Conjunctiva normal. HEENT: External appearance of nose and ears normal, oral cavity grossly normal. NECK: JVD unable to assess; masses not palpable. HEART: Heart sounds irregular; negligible edema. LUNGS: Respiratory rate increased; decreased breath sounds ABDOMEN: Soft, nontender, liver spleen not palpable, no masses palpable, distended, with superficial breakdown of skin, and multiple areas. Dressing also present.. PSYCH: Alert and oriented x3; mood and affect normal. EXTREMITIES: Pigmentation of the both lower extremity distally INVESTIGATIONS, reviewed in the clinical context: June 26: Potassium 3.2 BUN 41 creatinine 2.56 June 25: White count 3.1 BUN 40 creatinine 2.15 White count 6.9 hemoglobin 12.8 platelets 137 potassium 4.4 BUN 44 creatinine 2.15 Troponin I less than 0.012, proBNP 15,300 Coronavirus-P/Cr-not detected EKG tracing personally reviewed by me-atrial flutter with a rate of 90 Chest x-ray film personally reviewed by me-cardiomegaly with pulmonary edema, small pleural effusion 2-D echocardiogram-atrial flutter, EF 55 have a 60%, moderate concentric LVH, some wall motion abnormality, moderate mitral regurgitation, moderate pulmonary hypertension Previous testing: April 2020-BUN 72 creatinine 2.4 Assessment: -Acute on chronic congestive heart exacerbation EF of 50-55% from diastolic dysfunction from underlying coronary artery disease, -Persistent atrial flutter fibrillation with ventricular rate controlled -Multiple superficial abdominal wall excoriations from scratching, with possible secondary infection-Dermatotillomania -COPD in an ex-smoker -Chronic DVT chronically on anticoagulation -Hyperlipidemia -Essential hypertension -Chronic kidney disease stage III from diabetic nephropathy and hypertensive nephrosclerosis -Obstructive sleep apnea does not use a device -Hypothyroid -Peripheral arterial disease -Multiple abdominal wall hernia from prior surgery -Colonic diverticulosis -Morbid obesity BMI 44.6 -Diabetes mellitus type 2 chronically on insulin. With peripheral neuropathy Disposition: Home Patient Condition at Discharge: Stable Plan - Discharge Summary New Discharge Prescriptions: New Apixaban [Eliquis] 5 mg PO BID #60 tab Cephalexin [Keflex] 250 mg PO Q8HR #21 capsule Metoprolol Tartrate [Lopressor] 50 mg PO BID #60 tab Continue Sertraline [Zoloft] 150 mg PO DAILY Atorvastatin [Lipitor] 80 mg PO HS Furosemide [Lasix] 60 mg PO TID traMADol HCL 50 mg PO BID PRN PRN Reason: Pain Gabapentin [Neurontin] 300 mg PO HS Insulin Detemir [Levemir Flextouch] 50 units SQ HS #0 Ammonium Lactate Cream [Lac-Hydrin 12% Cream] 1 inch TOPICAL BID Lactulose [Constulose] 20 gm PO DAILY PRN PRN Reason: Constipation Nitroglycerin Sl Tabs [Nitrostat] 0.4 mg SL Q5M PRN PRN Reason: Chest Pain Potassium Chloride ER [K-Dur 20] 40 meq PO DAILY Spironolactone [Aldactone] 18.75 mg PO DAILY Discontinued Apixaban [Eliquis] 5 mg PO DAILY Discharge Medication List Sertraline [Zoloft] 150 mg PO DAILY 10/19/13 [History] Atorvastatin [Lipitor] 80 mg PO HS 03/25/15 [History] Furosemide [Lasix] 60 mg PO TID 11/05/19 [History] traMADol HCL 50 mg PO BID PRN 11/05/19 [History] Gabapentin [Neurontin] 300 mg PO HS 11/20/19 [History] Insulin Detemir [Levemir Flextouch] 50 units SQ HS #0 11/21/19 [Rx] Ammonium Lactate Cream [Lac-Hydrin 12% Cream] 1 inch TOPICAL BID 06/23/20 [History] Lactulose [Constulose] 20 gm PO DAILY PRN 06/23/20 [History] Nitroglycerin Sl Tabs [Nitrostat] 0.4 mg SL Q5M PRN 06/23/20 [History] Potassium Chloride ER [K-Dur 20] 40 meq PO DAILY 06/23/20 [History] Spironolactone [Aldactone] 18.75 mg PO DAILY 06/23/20 [History] Apixaban [Eliquis] 5 mg PO BID #60 tab 06/26/20 [Rx] Cephalexin [Keflex] 250 mg PO Q8HR #21 capsule 06/26/20 [Rx] Metoprolol Tartrate [Lopressor] 50 mg PO BID #60 tab 06/26/20 [Rx] Follow up Appointment(s)/Referral(s): [facility] [NON-STAFF] - 1 Week Eleazar Bhatt MD [Primary Care Provider] - 1-2 days Patient Instructions/Handouts: Heart Failure (GEN), Fluid Restriction (DC) Activity/Diet/Wound Care/Special Instructions: [address] [id number] in 24 hours fluid restrict 1800 cc/day start lasix from tomorrow am home care to continue bmp - 5 days Discharge Disposition: HOME SELF-CARE
== END 2020-06-26 15:04 | disposition home or self-care (01) | DRG 291 ==
LOC: EC 13:16 → 1SOBS 15:46 → OBSVTOIN 06-25 09:20
PROVIDERS: ADMIT Hospitalist; ATTEND Hospitalist
DX: I13.0 Hypertensive heart and chronic kidney disease with heart failure and stage 1 through stage 4 chronic kidney disease, or unspecified chronic kidney disease (principal); I50.33 Acute on chronic diastolic (congestive) heart failure; I48.19 Other persistent atrial fibrillation; Z68.41 Body mass index [BMI] 40.0-44.9, adult; I82.509 Chronic embolism and thrombosis of unspecified deep veins of unspecified lower extremity; I27.20 Pulmonary hypertension, unspecified; K57.30 Diverticulosis of large intestine without perforation or abscess without bleeding; N18.30 Chronic kidney disease, stage 3 unspecified; Z20.822 Contact with and (suspected) exposure to COVID-19; F42.4 Excoriation (skin-picking) disorder; E03.9 Hypothyroidism, unspecified; E11.22 Type 2 diabetes mellitus with diabetic chronic kidney disease; E11.42 Type 2 diabetes mellitus with diabetic polyneuropathy; E11.51 Type 2 diabetes mellitus with diabetic peripheral angiopathy without gangrene; I08.1 Rheumatic disorders of both mitral and tricuspid valves; E66.01 Morbid (severe) obesity due to excess calories; E78.5 Hyperlipidemia, unspecified; F17.200 Nicotine dependence, unspecified, uncomplicated; F32.9 Major depressive disorder, single episode, unspecified; G47.33 Obstructive sleep apnea (adult) (pediatric); I25.10 Atherosclerotic heart disease of native coronary artery without angina pectoris; L98.492 Non-pressure chronic ulcer of skin of other sites with fat layer exposed; E11.622 Type 2 diabetes mellitus with other skin ulcer; J44.9 Chronic obstructive pulmonary disease, unspecified; K43.9 Ventral hernia without obstruction or gangrene; Z79.01 Long term (current) use of anticoagulants; Z79.4 Long term (current) use of insulin; Z79.899 Other long term (current) drug therapy; Z82.62 Family history of osteoporosis; Z86.14 Personal history of Methicillin resistant Staphylococcus aureus infection; Z95.5 Presence of coronary angioplasty implant and graft; I25.2 Old myocardial infarction; Z88.1 Allergy status to other antibiotic agents; Z88.0 Allergy status to penicillin; Z91.09 Other allergy status, other than to drugs and biological substances; Z87.442 Personal history of urinary calculi; Z98.890 Other specified postprocedural states; Z90.49 Acquired absence of other specified parts of digestive tract; Z83.6 Family history of other diseases of the respiratory system; Z84.1 Family history of disorders of kidney and ureter
CPT/HCPCS: 36415; 71046; 80048; 80053; 83036; 83605; 83735; 83880; 84484; 85025; 85610; 85730; 87635; 93005; 93306; 96361; 96374; 99285

== ENCOUNTER 2020-07-26 15:26 | Inpatient (IN) | payer MEDICARE, OTHER ==
--- NOTE | 2020-07-26 15:40 | ED ---
SOB HPI - General Chief Complaint: Shortness of Breath Stated Complaint: CRISTIAN Time Seen by Provider: 07/26/20 15:29 Source: EMS Mode of arrival: EMS Limitations: no limitations - History of Present Illness Initial Comments: This is a 50-year-old male with a history of COPD, CHF, diabetes, hypertension who presents emergency department for shortness of breath. The patient states that it started yesterday and has gradually worsened. He states it's made worse with any movement or complained flat. He states that he does wear oxygen at home however continued to have shortness of breath. The patient states that he has noticed some swelling in his lower [place] which is a little bit more than baseline. He does admit to a chronic cough with phlegm production however this is not increased from baseline. He denies any fevers or chills or URI symptoms. He denies any chest pain, nausea, vomiting, or diarrhea. No abdominal pain. He does have multiple excoriations to his abdomen which is also chronic and not changed. He has not noted any purulent drainage or increased swelling or redness around this area. The patient states that he has been compliant with his medications except for this morning where he didn't take any of his medications because he was not feeling well. He states he does not take any inhalers for his COPD because he is not prescribed any. He states he has been compliant with his Lasix. He states that he received a DuoNeb treatment and 125 of Solu-Medrol and route. He states that he feels that this has improved his breathing slightly. Otherwise denies any other acute complaints. - Related Data Home Medications Medication Instructions Recorded Confirmed Sertraline [Zoloft] 150 mg PO DAILY 10/19/13 06/23/20 Atorvastatin [Lipitor] 80 mg PO HS 03/25/15 06/23/20 Furosemide [Lasix] 60 mg PO TID 11/05/19 06/23/20 traMADol HCL 50 mg PO BID PRN 11/05/19 06/23/20 Gabapentin [Neurontin] 300 mg PO HS 11/20/19 06/23/20 Ammonium Lactate Cream [Lac-Hydrin 1 inch TOPICAL BID 06/23/20 06/23/20 12% Cream] Lactulose [Constulose] 20 gm PO DAILY PRN 06/23/20 06/23/20 Nitroglycerin Sl Tabs [Nitrostat] 0.4 mg SL Q5M PRN 06/23/20 06/23/20 Potassium Chloride ER [K-Dur 20] 40 meq PO DAILY 06/23/20 06/23/20 Spironolactone [Aldactone] 18.75 mg PO DAILY 06/23/20 06/23/20 Previous Rx's Medication Instructions Recorded Insulin Detemir [Levemir Flextouch] 50 units SQ HS #0 11/21/19 Apixaban [Eliquis] 5 mg PO BID #60 tab 06/26/20 Cephalexin [Keflex] 250 mg PO Q8HR #21 capsule 06/26/20 Metoprolol Tartrate [Lopressor] 50 mg PO BID #60 tab 06/26/20 Allergies Allergy/AdvReac Type Severity Reaction Status Date / Time adhesive Allergy "PLASTIC Verified 07/26/20 18:31 TAPE PEELS SKIN,PAPER TAPE IS OK" linezolid Allergy Unknown Verified 07/26/20 18:31 penicillin G Allergy Rash/Hives Verified 07/26/20 18:31 Cephalosporins AdvReac FEVER Verified 07/26/20 18:31 Review of Systems ROS Statement: Those systems with pertinent positive or pertinent negative responses have been documented in the HPI. ROS Other: All systems not noted in ROS Statement are negative. Past Medical History Past Medical History: Atrial Fibrillation, Asthma, Coronary Artery Disease ( CAD), Chest Pain / Angina, Heart Failure, COPD, Diabetes Mellitus, Deep Vein Thrombosis (DVT), Hyperlipidemia, Hypertension, Myocardial Infarction ([place]), Renal Disease, Sleep Apnea/CPAP/BIPAP, Thyroid Disorder, Vascular Disorder Additional Past Medical History / Comment(s): CHF, tracheobronchitis, CKD stage III, kidney stones, DVT L leg in 2004, KAMRYN without device use, colon abscess with bowel resection, multiple abdominal surgeries for a hiatal hernia that was complicated by prolonged hospitalization and prolonged ventilator dependent respiratory failure requiring a tracheostomy tube insertion, pvd-lower legs discolored/edematous, diverticular disease, chronic iron deficiency anemia, vertigo at times, Last Myocardial Infarction Date:: History of Any Multi-Drug Resistant Organisms: MRSA Date of last positivie culture/infection: 02/01/15 MDRO Source:: Abdomen Past Surgical History: Bowel Resection, Heart Catheterization With Stent, Hernia Repair Additional Past Surgical History / Comment(s): Colonoscopies, heart stents x 4, bowel resection with colostomy and colostomy reversal (removed a foot of pts colon)-2003, hernia repair with skin grafts and 2 fistula repairs (hospitalized for 1 year @[facility])-2010 MRSA 2014 in wounds. Past Anesthesia/Blood Transfusion Reactions: No Reported Reaction Additional Past Anesthesia/Blood Transfusion Reaction / Comment(s): Pt has received blood in past without reaction-2010 Date of Last Stent Placement:: 03/28/2015 Past Psychological History: Depression Smoking Status: Current every day smoker Past Alcohol Use History: None Reported Past Drug Use History: None Reported - Past Family History Mother Family Medical History: Osteoarthritis (OA), Pneumonia Additional Family Medical History / Comment(s): osteoporosis. arthroscopy surgery for knee Father Family Medical History: Liver Disease, Renal Disease Additional Family Medical History / Comment(s): triple heart bypass. liver transplant. aortic aneursym General Exam - General Exam Comments Initial Comments: Constitutional: [Awake alert] [Appears comfortable] Head: [Normocephalic atraumatic] Eyes: [no conjunctival injection] [No scleral icterus] [EOMI] Neck: [Supple], no tenderness Heart: Irregular, tachycardic [normal S1-S2] [no murmurs] Lungs: Bibasilar rales with mild exp wheezing present, Tachypneic Abdomen: [Soft] [nondistended] [nontender], Multiple superficial excoriations. Minimal surrounding erythema. No purulent drainage Extremities: B/l Le edema present with chronic stasis changes [DP pulses intact] [Radial pulses intact] Neuro: [A&Ox3] [No focal neurologic deficits] Psych: [Appropriate mood and affect] Limitations: no limitations Course Vital Signs 07/26/20 07/26/20 07/26/20 15:28 15:51 17:09 Temperature 98.3 F Pulse Rate 114 H 115 H Respiratory 16 24 16 Rate Blood Pressure 113/77 116/81 O2 Sat by Pulse 99 Oximetry 07/26/20 18:00 Temperature Pulse Rate 119 H Respiratory 16 Rate Blood Pressure 126/91 O2 Sat by Pulse 99 Oximetry - Reevaluation(s) Reevaluation #1: EKG showing atrial flutter with a rate of 113. There is no abnormal ST segment changes or T-wave inverted. QTC is 386. Other intervals normal. No ectopy. 07/26/20 17:44 Medical Decision Making - Medical Decision Making Is a 50-year-old male who presents emergency report for dyspnea. The patient's symptoms were consistent with congestive heart failure however he was evaluated for sepsis as well. Patient's BNP did come back elevated. Chest x-ray did show evidence for pulmonary edema. There is no leukocytosis. Lactic acid was normal. The patient was found be in each of fibrillation with RVR. Heart rate seemed to be consistently in the 1 teens to 130s. Because the patient did have some low blood pressures I did start him on amiodarone drip. The last heart rate I saw was in the 1 teens. Blood pressure was improving. He was started on IV Lasix [address] Barrera who accepted the patient for admission for further treatment. - Lab Data Result diagrams: 07/26/20 15:41 07/26/20 15:41 Lab Results 07/26/20 07/26/20 07/26/20 Range/Units 15:41 15:41 15:41 WBC 4.6 (3.8-10.6) k/uL RBC 3.97 L (4.30-5.90) m/uL Hgb 11.2 L (13.0-17.5) gm/dL Hct 35.6 L (39.0-53.0) % MCV 89.6 (80.0-100.0) fL MCH 28.1 (25.0-35.0) pg MCHC 31.4 (31.0-37.0) g/dL RDW 18.9 H (11.5-15.5) % Plt Count 128 L (150-450) k/uL MPV 9.4 Neutrophils % (Manual) 59 % Lymphocytes % (Manual) 29 % Monocytes % (Manual) 10 % Eosinophils % (Manual) 2 % Neutrophils # (Manual) 2.71 (1.3-7.7) k/uL Lymphocytes # (Manual) 1.33 (1.0-4.8) k/uL Monocytes # (Manual) 0.46 (0-1.0) k/uL Eosinophils # (Manual) 0.09 (0-0.7) k/uL Nucleated RBCs 0 (0-0) /100 WBC Manual Slide Review Performed Hypochromasia Moderate Poikilocytosis Moderate Anisocytosis Slight Stomatocytes Present PT 11.4 (9.0-12.0) sec INR 1.1 (<1.2) Sodium 137 (137-145) mmol/L Potassium 3.7 (3.5-5.1) mmol/L Chloride 99 (98-107) mmol/L Carbon Dioxide 32 H (22-30) mmol/L Anion Gap 6 mmol/L BUN 29 H (9-20) mg/dL Creatinine 1.62 H (0.66-1.25) mg/dL Est GFR (CKD-EPI)AfAm 57 (>60 ml/min/1.73 sqM) Est GFR (CKD-EPI)NonAf 49 (>60 ml/min/1.73 sqM) Glucose 110 H (74-99) mg/dL Plasma Lactic Acid Isael (0.7-2.0) mmol/L Calcium 9.2 (8.4-10.2) mg/dL Magnesium 2.1 (1.6-2.3) mg/dL Total Bilirubin 1.7 H (0.2-1.3) mg/dL AST 27 (17-59) U/L ALT 12 (4-49) U/L Alkaline Phosphatase 73 (38-126) U/L Troponin I (0.000-0.034) ng/mL NT-Pro-B Natriuret Pep pg/mL Total Protein 6.9 (6.3-8.2) g/dL Albumin 3.5 (3.5-5.0) g/dL 07/26/20 07/26/20 07/26/20 Range/Units 15:41 15:41 15:41 WBC (3.8-10.6) k/uL RBC (4.30-5.90) m/uL Hgb (13.0-17.5) gm/dL Hct (39.0-53.0) % MCV (80.0-100.0) fL MCH (25.0-35.0) pg MCHC (31.0-37.0) g/dL RDW (11.5-15.5) % Plt Count (150-450) k/uL MPV Neutrophils % (Manual) % Lymphocytes % (Manual) % Monocytes % (Manual) % Eosinophils % (Manual) % Neutrophils # (Manual) (1.3-7.7) k/uL Lymphocytes # (Manual) (1.0-4.8) k/uL Monocytes # (Manual) (0-1.0) k/uL Eosinophils # (Manual) (0-0.7) k/uL Nucleated RBCs (0-0) /100 WBC Manual Slide Review Hypochromasia Poikilocytosis Anisocytosis Stomatocytes PT (9.0-12.0) sec INR (<1.2) Sodium (137-145) mmol/L Potassium (3.5-5.1) mmol/L Chloride (98-107) mmol/L Carbon Dioxide (22-30) mmol/L Anion Gap mmol/L BUN (9-20) mg/dL Creatinine (0.66-1.25) mg/dL Est GFR (CKD-EPI)AfAm (>60 ml/min/1.73 sqM) Est GFR (CKD-EPI)NonAf (>60 ml/min/1.73 sqM) Glucose (74-99) mg/dL Plasma Lactic Acid Isael 1.6 (0.7-2.0) mmol/L Calcium (8.4-10.2) mg/dL Magnesium (1.6-2.3) mg/dL Total Bilirubin (0.2-1.3) mg/dL AST (17-59) U/L ALT (4-49) U/L Alkaline Phosphatase (38-126) U/L Troponin I <0.012 (0.000-0.034) ng/mL NT-Pro-B Natriuret Pep 83189 pg/mL Total Protein (6.3-8.2) g/dL Albumin (3.5-5.0) g/dL Disposition Clinical Impression: CHF exacerbation, Atrial fibrillation with RVR Disposition: ADMITTED IP TO THIS HOSP Condition: Serious
[2020-07-26 16:00] LABS: Albumin 3.5 g/dL (3.5-5.0); Calcium 9.2 mg/dL (8.4-10.2); Magnesium 2.1 mg/dL (1.6-2.3); Potassium 3.7 mmol/L (3.5-5.1); Total Bilirubin 1.7 mg/dL (0.2-1.3); Total Protein 6.9 g/dL (6.3-8.2)
[2020-07-26 16:04] LABS: INR 1.1 (<1.2); Prothrombin Time 11.4 sec (9.0-12.0)
[2020-07-26 16:09] LABS: Anisocytosis Slight; HCT 35.6 % (39.0-53.0); HGB 11.2 gm/dL (13.0-17.5); Hypochromasia Moderate; MCH 28.1 pg (25.0-35.0); MCHC 31.4 g/dL (31.0-37.0); MCV 89.6 fL (80.0-100.0); Mean Platelet Volume 9.4; Platelet Count 128 k/uL (150-450); Poikilocytosis Moderate; RBC 3.97 m/uL (4.30-5.90); RDW 18.9 % (11.5-15.5); WBC 4.6 k/uL (3.8-10.6)
--- NOTE | 2020-07-26 16:16 | XR ---
EXAMINATION TYPE: XR chest 1V portable DATE OF EXAM: 07/26/2020 COMPARISON: Chest 06/23/2020 HISTORY: Shortness of breath TECHNIQUE: Single frontal view of the chest is obtained. FINDINGS: The heart is stable, enlarged heart is suspected. There is prominence and central vascular ity. Patchy bibasilar densities present, interstitium is increased. No pneumothorax. IMPRESSION: Correlate for possible congestive heart failure, pneumonia.
[2020-07-26 16:41] LABS: Eosinophils # (M) 0.09 k/uL (0-0.7); Lymphocytes # (M) 1.33 k/uL (1.0-4.8); Monocytes # (M) 0.46 k/uL (0-1.0); Neutrophils # (M) 2.71 k/uL (1.3-7.7); Neutrophils % (M) 59 %; Nucleated Red Blood Cells 0 /100 WBC (0-0); Stomatocytes Present; Total Cells Counted 100
[2020-07-26] MEDS ORDERED: FUROSEMIDE 10 MG/ML 10 ML VIAL IV STA (16:45)
[2020-07-26] MEDS ORDERED: DEXTROSE 5% IN WATER 100 ML with AMIODARONE 150 MG IV ONE (17:15)
[2020-07-26] MEDS: fentaNYL (PF) 50 MCG/ML 2 ML AMP IVP PRN ×2 (17:19→21:32)
[2020-07-26] MEDS: DEXTROSE 5% IN WATER 250 ML with AMIODARONE 300 MG IV ONE ×2 (17:31→17:48)
[2020-07-26] MEDS ORDERED: AMIODARONE 360 MG in DEXTROSE 5% IN WATER 200 ML IV ONE ×2 (17:42)
[2020-07-26] MEDS ORDERED: NALOXONE 0.4 MG/ML 1 ML VIAL IV PRN (17:53)
[2020-07-26 23:23] LABS: Glucose,Whole Blood 334 mg/dL (75-99)
[2020-07-26] MEDS ORDERED: AMIODARONE 450 MG in DEXTROSE 5% IN WATER 250 ML IV SCH ×2 (23:45)
[2020-07-27] MEDS ORDERED: NITROGLYCERIN SL TABS 0.4 MG TAB SUBLINGUAL PRN (00:56)
[2020-07-27] MEDS ORDERED: traMADol 50 MG TAB PO PRN (00:56)
[2020-07-27] MEDS ORDERED: LACTULOSE 20 GM/30 ML CUP PO PRN (00:56)
[2020-07-27] MEDS: INSULIN DETEMIR (LEVEMIR) 100 UNIT/ML SYR SQ SCH ×2 (01:22→20:48)
[2020-07-27 01:28] LABS: Glucose,Whole Blood 288 mg/dL (75-99)
[2020-07-27] MEDS: fentaNYL (PF) 50 MCG/ML 2 ML AMP IVP PRN (02:00)
[2020-07-27 06:41] LABS: Glucose,Whole Blood 172 mg/dL (75-99)
[2020-07-27] MEDS: INSULIN ASPART (NovoLOG) 100 UNIT/ML VIAL SQ SCH ×4 (06:44→20:48)
[2020-07-27] MEDS ORDERED: FUROSEMIDE 10 MG/ML 10 ML VIAL IV SCH (08:45)
[2020-07-27] MEDS ORDERED: IPRATROPIUM-ALBUTEROL 3 ML NEB INHALATION PRN (08:46)
[2020-07-27] MEDS ORDERED: METOPROLOL TARTRATE 50 MG TAB PO SCH (09:00)
[2020-07-27] MEDS ORDERED: FUROSEMIDE 20 MG TAB PO SCH (09:00)
[2020-07-27] MEDS: buPROPion XL 150 MG TAB.ER.24H PO SCH (10:53)
[2020-07-27] MEDS: APIXABAN 5 MG TAB PO SCH ×2 (10:53→20:35)
[2020-07-27] MEDS: POTASSIUM CHLORIDE ER 20 MEQ TAB.ER PO SCH (10:55)
[2020-07-27] MEDS: SPIRONOLACTONE 25 MG TAB PO SCH (10:56)
[2020-07-27] MEDS: AMMONIUM LACTATE 12% CREAM 140 GM TUBE TOPICAL SCH ×2 (10:59→20:49)
[2020-07-27] MEDS: METOPROLOL TARTRATE 50 MG TAB PO SCH ×2 (11:08→20:35)
[2020-07-27] MEDS: SERTRALINE 50 MG TAB PO SCH (11:09)
[2020-07-27 11:18] LABS: Potassium 3.8 mmol/L (3.5-5.1)
[2020-07-27 12:11] LABS: Glucose,Whole Blood 236 mg/dL (75-99)
[2020-07-27] MEDS ORDERED: ACETAMINOPHEN TAB 500 MG TAB PO PRN (12:35)
[2020-07-27] MEDS: IPRATROPIUM-ALBUTEROL 3 ML NEB INHALATION SCH ×3 (13:00→20:04)
--- NOTE | 2020-07-27 13:26 | P.GSCN ---
History of Present Illness Consult date: 07/27/20 Reason for Consult: Wound care consult for multiple abdominal wounds, left foot second toe wound. Requesting physician: Vamshi Barrera History of present illness: This is a 50-year-old gentleman that follows with Dr. Eleazar Bhatt for primary care on an outpatient basis. His past medical history significant for COPD with home oxygen use of 3-4 L, hypertension, hyperlipidemia, coronary artery disease with previous stent placement, chronic congestive heart failure, insulin- dependent diabetes mellitus type 2, morbid obesity with a BMI of 54.6 kg/m, obstructive sleep apnea, history of MRSA in 2014, hypothyroid, chronic atrial fibrillation on Eliquis for anticoagulation, chronic ongoing tobacco dependence smokes about a one fourth of a pack a day, chronic kidney disease stage III and history of prolonged mechanical ventilator dependency with respiratory failure requiring a tracheostomy tube insertion. The patient presented to the emergency department here at [facility] via EMS due to some complaints of shortness of breath and increased swelling to his bilateral lower extremities. He denies any recent fevers, chills, nausea, vomiting, diarrhea, constipation, weight gain, weight loss or chest pain. Laboratory results on admission show a WBC count 4.6, hemoglobin 11.2, platelets 128, INR 1.1, PT 11.4, BUN 29, creatinine 1.62, glucose 110, and serial troponins were negative. A COVID 19 result showed not detected. Due to the patient's symptoms he was admitted to the hospital for further workup and evaluation. The patient does have some chronic wounds to his abdomen and left foot second toe which she is seen in the wound healing center for an due to the wounds, the wound care service was consulted for treatment recommendations. Review of Systems A 14 point review of systems was completed was negative except as mentioned in the HPI. Past Medical History Past Medical History: Atrial Fibrillation, Asthma, Coronary Artery Disease (CAD), Chest Pain / Angina, Heart Failure, COPD, Diabetes Mellitus, Deep Vein Thrombosis (DVT), Hyperlipidemia, Hypertension, Myocardial Infarction ([place]), Renal Disease, Sleep Apnea/CPAP/BIPAP, Thyroid Disorder, Vascular Disorder Additional Past Medical History / Comment(s): CHF, tracheobronchitis, CKD stage III, kidney stones, DVT L leg in 2004, KAMRYN without device use, colon abscess with bowel resection, multiple abdominal surgeries for a hiatal hernia that was complicated by prolonged hospitalization and prolonged ventilator dependent respiratory failure requiring a tracheostomy tube insertion, pvd-lower legs discolored/edematous, diverticular disease, chronic iron deficiency anemia, vertigo at times, Last Myocardial Infarction Date:: History of Any Multi-Drug Resistant Organisms: MRSA Year Discovered:: 02/01/15 MDRO Source:: Abdomen Past Surgical History: Bowel Resection, Heart Catheterization With Stent, Hernia Repair Additional Past Surgical History / Comment(s): Colonoscopies, heart stents x 4, bowel resection with colostomy and colostomy reversal (removed a foot of pts colon)-2003, hernia repair with skin grafts and 2 fistula repairs (hospitalized for 1 year @[facility])-2010 MRSA 2014 in wounds. Past Anesthesia/Blood Transfusion Reactions: No Reported Reaction Additional Past Anesthesia/Blood Transfusion Reaction / Comm: Pt has received blood in past without reaction-2010 Date of Last Stent Placement:: 03/28/2015 Past Psychological History: Depression Additional Psychological History / Comment(s): PT IS DISABLED. PT LIVES WITH 2 PET CATS AND 1 DOG. HOME HAS A RAMP. USES A CANE CURRENTLY-. Smoking Status: Current every day smoker Past Alcohol Use History: None Reported Additional Past Alcohol Use History / Comment(s): smokes .25 pack a day. Past Drug Use History: None Reported - Past Family History Mother Family Medical History: Osteoarthritis (OA), Pneumonia Additional Family Medical History / Comment(s): osteoporosis. arthroscopy surgery for knee. Irritable bowel syndrome Father Family Medical History: Liver Disease, Renal Disease Additional Family Medical History / Comment(s): triple heart bypass. liver transplant. aortic aneursym Medications and Allergies Home Medications Medication Instructions Recorded Confirmed Type Sertraline [Zoloft] 150 mg PO DAILY 10/19/13 07/26/20 History Atorvastatin [Lipitor] 80 mg PO HS 03/25/15 07/26/20 History Furosemide [Lasix] 60 mg PO TID 11/05/19 07/26/20 History traMADol HCL 50 mg PO BID PRN 11/05/19 07/26/20 History Gabapentin [Neurontin] 300 mg PO HS 11/20/19 07/26/20 History Insulin Detemir [Levemir Flextouch] 50 units SQ HS #0 11/21/19 07/26/20 Rx Ammonium Lactate Cream [Lac-Hydrin 1 inch TOPICAL BID 06/23/20 07/26/20 History 12% Cream] Lactulose [Constulose] 20 gm PO DAILY PRN 06/23/20 07/26/20 History Nitroglycerin Sl Tabs [Nitrostat] 0.4 mg SL Q5M PRN 06/23/20 07/26/20 History Potassium Chloride ER [K-Dur 20] 40 meq PO DAILY 06/23/20 07/26/20 History Spironolactone [Aldactone] 18.75 mg PO DAILY 06/23/20 07/26/20 History Apixaban [Eliquis] 5 mg PO BID #60 tab 06/26/20 07/26/20 Rx Metoprolol Tartrate [Lopressor] 50 mg PO BID #60 tab 06/26/20 07/26/20 Rx buPROPion XL [Wellbutrin Xl] 150 mg PO DAILY 07/26/20 07/26/20 History Allergies Allergy/AdvReac Type Severity Reaction Status Date / Time adhesive Allergy "PLASTIC Verified 07/26/20 18:31 TAPE PEELS SKIN,PAPER TAPE IS OK" linezolid Allergy Unknown Verified 07/26/20 18:31 penicillin G Allergy Rash/Hives Verified 07/26/20 18:31 Cephalosporins AdvReac FEVER Verified 07/26/20 18:31 Surgical - Exam Vital Signs Temp Pulse Resp BP 98.3 F 114 H 16 113/77 07/26/20 15:28 07/26/20 15:28 07/26/20 15:28 07/26/20 15:28 - General Morbid obesity no distress, no pain, chronically ill - Eyes normal ocular movement, no icteric - ENT normal pinna, normal nares, normal mucosa, no hearing loss, no congestion, poor mcc - Neck Neck is supple, no JVD. no masses, no bruits, trachea midline, no venous distension - Respiratory Lung sounds essentially clear to his bilateral upper lobes, few scattered crackles to his bilateral bases. No wheezes or rhonchi. Respirations are symmetrical and nonlabored. - Cardiovascular Irregular rhythm and tachycardic rate. S1 and S2 present, negative for S3, gallop or murmur. +1 edema to his bilateral lower extremities. - Abdomen Abdomen is soft, nontender and nondistended. Active bowel sounds present in all 4 abdominal quadrants. No guarding or rigidity. No organomegaly appreciated. - Genitourinary Deferred - Rectum Deferred - Integumentary Multiple chronic excoriated areas to his abdomen and to his left foot second toe. The excoriated areas are dry and without drainage. 7 also rated areas with granulation seen and no tunneling demonstrated. - Neurologic Cranial nerves II through XII intact. No focal or motor deficits. - Musculoskeletal Moves all 4 extremities with equal strength. - Psychiatric oriented to time, oriented to person, oriented to place, speech is normal, memory intact Results - Labs 07/26/20 15:41 07/27/20 09:44 Abnormal Lab Results - Last 24 Hours (Table) 07/26/20 07/26/20 07/26/20 Range/Units 15:41 15:41 23:21 RBC 3.97 L (4.30-5.90) m/uL Hgb 11.2 L (13.0-17.5) gm/dL Hct 35.6 L (39.0-53.0) % RDW 18.9 H (11.5-15.5) % Plt Count 128 L (150-450) k/uL Carbon Dioxide 32 H (22-30) mmol/L BUN 29 H (9-20) mg/dL Creatinine 1.62 H (0.66-1.25) mg/dL Glucose 110 H (74-99) mg/dL POC Glucose (mg/dL) 334 H (75-99) mg/dL Total Bilirubin 1.7 H (0.2-1.3) mg/dL 07/27/20 07/27/20 Range/Units 01:07 06:20 RBC (4.30-5.90) m/uL Hgb (13.0-17.5) gm/dL Hct (39.0-53.0) % RDW (11.5-15.5) % Plt Count (150-450) k/uL Carbon Dioxide (22-30) mmol/L BUN (9-20) mg/dL Creatinine (0.66-1.25) mg/dL Glucose (74-99) mg/dL POC Glucose (mg/dL) 288 H 172 H (75-99) mg/dL Total Bilirubin (0.2-1.3) mg/dL Diabetes panel 07/26/20 Range/Units 15:41 Sodium 137 (137-145) mmol/L Potassium 3.7 (3.5-5.1) mmol/L Chloride 99 (98-107) mmol/L Carbon Dioxide 32 H (22-30) mmol/L BUN 29 H (9-20) mg/dL Creatinine 1.62 H (0.66-1.25) mg/dL Glucose 110 H (74-99) mg/dL Calcium 9.2 (8.4-10.2) mg/dL AST 27 (17-59) U/L ALT 12 (4-49) U/L Alkaline Phosphatase 73 (38-126) U/L Total Protein 6.9 (6.3-8.2) g/dL Albumin 3.5 (3.5-5.0) g/dL Calcium panel 07/26/20 Range/Units 15:41 Calcium 9.2 (8.4-10.2) mg/dL Albumin 3.5 (3.5-5.0) g/dL Pituitary panel 07/26/20 Range/Units 15:41 Sodium 137 (137-145) mmol/L Potassium 3.7 (3.5-5.1) mmol/L Chloride 99 (98-107) mmol/L Carbon Dioxide 32 H (22-30) mmol/L BUN 29 H (9-20) mg/dL Creatinine 1.62 H (0.66-1.25) mg/dL Glucose 110 H (74-99) mg/dL Calcium 9.2 (8.4-10.2) mg/dL Adrenal panel 07/26/20 Range/Units 15:41 Sodium 137 (137-145) mmol/L Potassium 3.7 (3.5-5.1) mmol/L Chloride 99 (98-107) mmol/L Carbon Dioxide 32 H (22-30) mmol/L BUN 29 H (9-20) mg/dL Creatinine 1.62 H (0.66-1.25) mg/dL Glucose 110 H (74-99) mg/dL Calcium 9.2 (8.4-10.2) mg/dL Total Bilirubin 1.7 H (0.2-1.3) mg/dL AST 27 (17-59) U/L ALT 12 (4-49) U/L Alkaline Phosphatase 73 (38-126) U/L Total Protein 6.9 (6.3-8.2) g/dL Albumin 3.5 (3.5-5.0) g/dL Assessment and Plan Assessment: 1. Nonhealing skin ulcers with fat layer exposed 2. Diabetes with skin ulcer Plan: Patient was seen and examined at his bedside on the cardiac stepdown unit. His chart and diagnostics were reviewed. His case was discussed in detail with Dr. Piter Jefferson from the wound healing center. He is currently a patient in the wound healing center and receives wound treatments once weekly. Wound care recommendations are for puracol plus collagen, apply moistened gauze, covered with dry gauze and secured with tape 2 excoriated areas to his abdomen and to his left foot second toe, change the dressings every other day. Once discharge recommendations are to continue to follow in the wound healing center. Thank you for this consult and please feel free if any other questions please contact the wound healing center. Time with Patient: Greater than 30
--- NOTE | 2020-07-27 14:22 | P.CRDCN ---
History of Present Illness Consult date: 07/27/20 History of present illness: CHIEF COMPLAINT: A. fib with RVR, CHF HISTORY OF PRESENT ILLNESS: This is a 50-year-old male with a past medical history significant for congestive heart failure, hypertension, hyperlipidemia, chronic A. fib, chronic kidney disease, COPD, nicotine dependence, and coronary artery disease with previous PCI to circumflex and LAD. Patient follows in the office with Dr. Wood. We have been asked to see the patient in consultation for A. fib with RVR and CHF. Patient examined this morning at the bedside. Patient denies chest pain or pressure. He reports he has been feeling short of breath over the last 2-3 days. He reports increased lower extremity edema. Patient states he has not been compliant with his diet and reports eating a lot of high sodium foods on Saturday for the [place]. He reports taking all of his medications. Patient was recently hospitalized in June 2020 for congestive heart failure. Echocardiogram completed that time revealed ejection fraction 55-60% with moderate mitral regurgitation. Patient was given a one-time dose of Lasix in the emergency room. He states he is still short of breath this morning. Patient was found to be in atrial flutter with a heart rate in the 110s in the emergency room. He was started on IV amiodarone. DIAGNOSTICS: EKG reveals a flutter with RVR Chest xray correlate for possible congestive heart failure and pneumonia Laboratory data: WBC 4.6. Hemoglobin 11.2. Platelet Count 128. Sodium 135. Potassium 3.8. BUN 32. Creatinine 1.8. Troponin negative 3. BNP 13,700. Current home cardiac medications include spironolactone 18.75 mg daily, metoprolol tartrate 59 g twice a day, Lasix 60 mg 3 times a day, Lipitor 80 mg daily, Eliquis 5 mg twice a day REVIEW OF SYSTEMS: At the time of my exam: CONSTITUTIONAL: Denies fever or chills. HEENT: Denies blurred vision, vision changes, or eye pain. Denies hemoptysis CARDIOVASCULAR: Denies chest pain, orthopnea, PND or palpitations RESPIRATORY: No shortness of breath. GASTROINTESTINAL: Denies abdominal pain. Denies nausea or vomiting. HEMATOLOGIC: Denies bleeding disorders. GENITOURINARY: Denies any blood in urine. SKIN: Denies pruitis. Denies rash. PHYSICAL EXAM: VITAL SIGNS: Reviewed. GENERAL: Well-developed in no acute distress. HEENT: Head is normocephalic. Pupils are equal, round. Sclerae anicteric. Mucous membranes of the mouth are moist. Neck supple. No JVD or thyromegaly LUNGS: Respirations even and unlabored. Lungs diminished with crackles at the bases and scattered expiratory wheezing HEART: Irregular rate and rhythm. S1 and S2 heard. ABDOMEN: Soft. Nondistended. Nontender. EXTREMITIES: Normal range of motion. No clubbing or cyanosis. Peripheral pulses intact. 2+ bilateral lower extremity edema NEUROLOGIC: Awake and alert. Oriented x 3. ASSESSMENT: Acute exacerbation of chronic diastolic heart failure, EF 55-60% Coronary artery disease with previous PCI to circumflex and LAD Chronic persistent atrial fibrillation, on anticoagulation with Eliquis Hypertension Hyperlipidemia COPD Chronic kidney disease Nicotine dependence, patient smokes 2-3 cigarettes a day Morbid obesity: BMI 54.6 PLAN: No need to repeat echocardiogram as this was performed in June 2020 Begin IV Lasix 60 mg every 8 hours Increase metoprolol to 75 mg twice a day Discontinue IV amiodarone Patient with significant wheezing this morning. Begin DuoNeb treatments. May benefit from IV steroids. Will defer to internal medicine. Further recommendations pending patient's course Nurse practitioner note has been reviewed by physician. Signing provider agrees with the documented findings, assessment, and plan of care. Past Medical History Past Medical History: Atrial Fibrillation, Asthma, Coronary Artery Disease (CAD), Chest Pain / Angina, Heart Failure, COPD, Diabetes Mellitus, Deep Vein Thrombosis (DVT), Hyperlipidemia, Hypertension, Myocardial Infarction (SD), Renal Disease, Sleep Apnea/CPAP/BIPAP, Thyroid Disorder, Vascular Disorder Additional Past Medical History / Comment(s): CHF, tracheobronchitis, CKD stage III, kidney stones, DVT L leg in 2004, KAMRYN without device use, colon abscess with bowel resection, multiple abdominal surgeries for a hiatal hernia that was complicated by prolonged hospitalization and prolonged ventilator dependent r espiratory failure requiring a tracheostomy tube insertion, pvd-lower legs discolored/edematous, diverticular disease, chronic iron deficiency anemia, vertigo at times, Last Myocardial Infarction Date:: History of Any Multi-Drug Resistant Organisms: MRSA Date of last positivie culture/infection: 02/01/15 MDRO Source:: Abdomen Past Surgical History: Bowel Resection, Heart Catheterization With Stent, Hernia Repair Additional Past Surgical History / Comment(s): Colonoscopies, heart stents x 4, bowel resection with colostomy and colostomy reversal (removed a foot of pts colon)-2003, hernia repair with skin grafts and 2 fistula repairs (hospitalized for 1 year @[facility])-2010 MRSA 2014 in wounds. Past Anesthesia/Blood Transfusion Reactions: No Reported Reaction Additional Past Anesthesia/Blood Transfusion Reaction / Comment(s): Pt has received blood in past without reaction-2010 Date of Last Stent Placement:: 03/28/2015 Past Psychological History: Depression Additional Psychological History / Comment(s): PT IS DISABLED. PT LIVES WITH 2 PET CATS AND 1 DOG. HOME HAS A RAMP. USES A CANE CURRENTLY-. Smoking Status: Current every day smoker Past Alcohol Use History: None Reported Additional Past Alcohol Use History / Comment(s): smokes .25 pack a day. Past Drug Use History: None Reported - Past Family History Mother Family Medical History: Osteoarthritis (OA), Pneumonia Additional Family Medical History / Comment(s): osteoporosis. arthroscopy surgery for knee. Irritable bowel syndrome Father Family Medical History: Liver Disease, Renal Disease Additional Family Medical History / Comment(s): triple heart bypass. liver transplant. aortic aneursym Medications and Allergies Home Medications Medication Instructions Recorded Confirmed Type Sertraline [Zoloft] 150 mg PO DAILY 10/19/13 07/26/20 History Atorvastatin [Lipitor] 80 mg PO HS 03/25/15 07/26/20 History Furosemide [Lasix] 60 mg PO TID 11/05/19 07/26/20 History traMADol HCL 50 mg PO BID PRN 11/05/19 07/26/20 History Gabapentin [Neurontin] 300 mg PO HS 11/20/19 07/26/20 History Insulin Detemir [Levemir Flextouch] 50 units SQ HS #0 11/21/19 07/26/20 Rx Ammonium Lactate Cream [Lac-Hydrin 1 inch TOPICAL BID 06/23/20 07/26/20 History 12% Cream] Lactulose [Constulose] 20 gm PO DAILY PRN 06/23/20 07/26/20 History Nitroglycerin Sl Tabs [Nitrostat] 0.4 mg SL Q5M PRN 06/23/20 07/26/20 History Potassium Chloride ER [K-Dur 20] 40 meq PO DAILY 06/23/20 07/26/20 History Spironolactone [Aldactone] 18.75 mg PO DAILY 06/23/20 07/26/20 History Apixaban [Eliquis] 5 mg PO BID #60 tab 06/26/20 07/26/20 Rx Metoprolol Tartrate [Lopressor] 50 mg PO BID #60 tab 06/26/20 07/26/20 Rx buPROPion XL [Wellbutrin Xl] 150 mg PO DAILY 07/26/20 07/26/20 History Allergies Allergy/AdvReac Type Severity Reaction Status Date / Time adhesive Allergy "PLASTIC Verified 07/26/20 18:31 TAPE PEELS SKIN,PAPER TAPE IS OK" linezolid Allergy Unknown Verified 07/26/20 18:31 penicillin G Allergy Rash/Hives Verified 07/26/20 18:31 Cephalosporins AdvReac FEVER Verified 07/26/20 18:31 Physical Exam Vitals: Vital Signs Temp Pulse Pulse Resp BP BP Pulse Ox 07/27/20 13:08 104 H 22 07/27/20 13:00 102 H 22 100 07/27/20 12:19 97.7 F 91 18 97 07/27/20 08:00 100 20 07/27/20 07:00 97.4 F L 100 20 130/87 96 07/27/20 06:25 18 112/70 07/27/20 03:05 98.8 F 114 H 20 107/75 97 07/27/20 01:13 120 H 22 120/63 97 07/26/20 23:10 98.3 F 118 H 24 122/80 96 07/26/20 21:36 133 H 18 121/87 97 07/26/20 19:33 135 H 18 113/77 95 07/26/20 18:00 119 H 16 126/91 99 07/26/20 17:09 115 H 16 116/81 99 07/26/20 15:51 24 07/26/20 15:28 98.3 F 114 H 16 113/77 Intake and Output 07/26/20 07/27/20 07/27/20 22:59 06:59 14:59 Intake Total 120 Output Total 400 250 450 Balance -400 -250 -330 Intake: Oral 120 Output: Urine 400 250 450 Other: Voiding Method Urinal Urinal Weight 152 kg 153.5 kg Results 07/26/20 15:41 07/27/20 09:44 Cardiac Enzymes 07/26/20 07/26/20 07/26/20 Range/Units 15:41 15:41 18:39 AST 27 (17-59) U/L Troponin I <0.012 <0.012 (0.000-0.034) ng/mL 07/26/20 Range/Units 22:38 AST (17-59) U/L Troponin I <0.012 (0.000-0.034) ng/mL Coagulation 07/26/20 Range/Units 15:41 PT 11.4 (9.0-12.0) sec CBC 07/26/20 Range/Units 15:41 WBC 4.6 (3.8-10.6) k/uL RBC 3.97 L (4.30-5.90) m/uL Hgb 11.2 L (13.0-17.5) gm/dL Hct 35.6 L (39.0-53.0) % Plt Count 128 L (150-450) k/uL Comprehensive Metabolic Panel 07/26/20 07/27/20 Range/Units 15:41 09:44 Sodium 137 135 L (137-145) mmol/L Potassium 3.7 3.8 (3.5-5.1) mmol/L Chloride 99 96 L (98-107) mmol/L Carbon Dioxide 32 H 30 (22-30) mmol/L BUN 29 H 32 H (9-20) mg/dL Creatinine 1.62 H 1.88 H (0.66-1.25) mg/dL Glucose 110 H 191 H (74-99) mg/dL Calcium 9.2 9.0 (8.4-10.2) mg/dL AST 27 (17-59) U/L ALT 12 (4-49) U/L Alkaline Phosphatase 73 (38-126) U/L Total Protein 6.9 (6.3-8.2) g/dL Albumin 3.5 (3.5-5.0) g/dL Current Medications Generic Name Dose Route Start Last Admin Trade Name Freq PRN Reason Stop Dose Admin Acetaminophen 500 mg 07/27/20 12:35 Acetaminophen Tab 500 Mg Tab PO Q4HR PRN Fever and/ or Pain Albuterol/Ipratropium 3 ml 07/27/20 12:00 07/27/20 13:00 Ipratropium-Albuterol 3 Ml Neb INHALATION 3 ml RT-QID ZURI Administration Albuterol/Ipratropium 3 ml 07/27/20 08:46 Ipratropium-Albuterol 3 Ml Neb INHALATION RT-Q1H PRN Shortness Of Breath Or Wheezing Apixaban 5 mg 07/27/20 09:00 07/27/20 10:53 Apixaban 5 Mg Tab PO 5 mg BID ZURI Administration Atorvastatin Calcium 80 mg 07/27/20 21:00 Atorvastatin 80 Mg Tab PO HS ZURI Bupropion HCl 150 mg 07/27/20 09:00 07/27/20 10:53 Bupropion Xl 150 Mg Tab.Er.24h PO 150 mg DAILY ZURI Administration Gabapentin 300 mg 07/27/20 21:00 Gabapentin 300 Mg Cap PO HS ZURI Furosemide 100 mg/ Sodium 100 mls @ 10 mls/hr 07/27/20 13:00 Chloride IV .Q10H ZURI 10 MG/HR Insulin Aspart 0 unit 07/27/20 07:30 07/27/20 13:17 Insulin Aspart (Novolog) 100 Unit/Ml Vial SQ 8 unit ACHS ZURI Administration Protocol Insulin Detemir 50 unit 07/27/20 01:00 07/27/20 01:22 Insulin Detemir (Levemir) 100 Unit/Ml Syr SQ 50 unit HS ZURI Administration Lactic Acid 1 applic 07/27/20 09:00 07/27/20 10:59 Ammonium Lactate 12% Cream 140 Gm Tube TOPICAL 1 applic BID ZURI Administration Lactulose 20 gm 07/27/20 00:56 Lactulose 20 Gm/30 Ml Cup PO DAILY PRN Constipation Metoprolol Tartrate 75 mg 07/27/20 09:00 07/27/20 11:08 Metoprolol Tartrate 50 Mg Tab PO 75 mg BID ZURI Administration Naloxone HCl 0.2 mg 07/26/20 17:53 Naloxone 0.4 Mg/Ml 1 Ml Vial IV Q2M PRN Opioid Reversal Nitroglycerin 0.4 mg 07/27/20 00:56 Nitroglycerin Sl Tabs 0.4 Mg Tab SUBLINGUAL Q5M PRN Chest Pain Potassium Chloride 40 meq 07/27/20 09:00 07/27/20 10:55 Potassium Chloride Er 20 Meq Tab.Er PO 40 meq DAILY ZURI Administration Sertraline HCl 150 mg 07/27/20 09:00 07/27/20 11:09 Sertraline 50 Mg Tab PO 150 mg DAILY ZURI Administration Spironolactone 18.75 mg 07/27/20 09:00 07/27/20 10:56 Spironolactone 25 Mg Tab PO 18.75 mg DAILY ZURI Administration Intake and Output 07/26/20 07/27/20 07/27/20 22:59 06:59 14:59 Intake Total 120 Output Total 400 250 450 Balance -400 -250 -330 Intake: Oral 120 Output: Urine 400 250 450 Other: Voiding Method Urinal Urinal Weight 152 kg 153.5 kg 07/26/20 15:41 07/27/20 09:44
[2020-07-27] MEDS: FUROSEMIDE 100 MG in SODIUM CHLORIDE 0.9% 90 ML IV SCH ×2 (15:53→23:30)
[2020-07-27 16:51] LABS: Glucose,Whole Blood 138 mg/dL (75-99)
[2020-07-27] MEDS: ATORVASTATIN 80 MG TAB PO SCH (20:35)
[2020-07-27] MEDS: GABAPENTIN 300 MG CAP PO SCH (20:35)
[2020-07-27] MEDS: traMADol 50 MG TAB PO PRN (20:36)
[2020-07-27 20:46] LABS: Glucose,Whole Blood 150 mg/dL (75-99)
--- NOTE | 2020-07-27 22:39 | P.HPIM ---
History of Present Illness H&P Date: 07/27/20 Chief Complaint: Shortness of breath, edema History of presenting complaint: This is a pleasant 50-year-old patient with extensive medical history. Patient follows with visiting physicians. Dr. Chaney. Chronic stable medical conditions include diabetes with peripheral neuropathy, coronary artery disease with stent, COPD, hypertension, hyperlipidemia, chronic kidney disease, kidney stones,(s) sleep apnea does not use a device, multiple abdominal surgeries for hiatal hernia, also history of tracheostomy, peripheral arterial disease, diverticulosis,. 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 Normally uses a scooter or a walker to get about. Patient has chronic breakdown of superficial skin on the abdominal wall from scratching. Patient now presents to the ER increasing shortness of breath. Minimal cough. Decrease lower extremity edema. No fever no chills. He was having orthopnea. Appetite is okay. He has chronic abdominal wall excoriations. Review of systems: GEN.: Tired EYES: None HEENT: None NECK: None RESPIRATORY: Short of breath CARDIOVASCULAR: Increasing edema GASTROINTESTINAL: None GENITOURINARY: None MUSCULOSKELETAL: None LYMPHATICS: None HEMATOLOGICAL: None PSYCHIATRY: None NEUROLOGICAL: chronic pain in the lower extremities. Past medical history to include: Atrial fibrillation, coronary artery disease with stent, congestive heart failure EF 30-35%, COPD, DVT, hypertension, hyperlipidemia, chronic kidney disease, obstructive sleep apnea, hypothyroid, peripheral artery disease, chronic kidney disease stage III, kidney stones, DVT in left leg in 2004,: Abscess with bowel resection, multiple abdominal surgeries for hiatal hernia,. Bladder prolonged hospitalization and prolonged medical-related dependent, with a tracheostomy tube, peripheral arterial disease, colonic diverticulosis, iron deficiency anemia,. Diabetes with peripheral neuropathy Social history: Patient is on disability. Patient smoked for about 10 years and stopped in 2008. No alcohol. Patient lives alone. Does have a scooter and a walker Physical examination: VITAL SIGNS: 97.4, 100, 20, 130/87, 96% on 3 L GENERAL: BMI 54.6, sitting up in bed, tired, slightly short of breath EYES: Pupils equal. Conjunctiva normal. HEENT: External appearance of nose and ears normal, oral cavity grossly normal. NECK: JVD unable to assess; masses not palpable. HEART: Heart sounds irregular; significant edema. LUNGS: Respiratory rate increased; decreased breath sounds ABDOMEN: Soft, nontender, liver spleen not palpable, no masses palpable, distended, with superficial breakdown of skin, and multiple areas. PSYCH: Alert and oriented x3; mood and affect tired. NEUROLOGICAL: Cranial nerves grossly intact; no facial asymmetry, power and sensation grossly intact. LYMPHATICS: No lymph nodes palpable in the axilla and neck EXTREMITIES: Pigmentation of the both lower extremity distally INVESTIGATIONS, reviewed in the clinical context: White count 4.6 hemoglobin 11.2 platelets 128 potassium 3.7 bun 29 creatinine 1.6 to EKG tracing personally reviewed by me-atrial flutter with a variable rate up to 113 Chest x-ray film personally reviewed by me-venous prominence Previous testin06/26/2020 BUN 41 and creatinine 2.56 2-D echocardiogram-atrial flutter, EF 55 have a 60%, moderate concentric LVH, some wall motion abnormality, moderate mitral regurgitation, moderate pulmonary hypertension Assessment: -Acute on chronic congestive heart exacerbation EF of 50-55% from diastolic dysfunction from underlying coronary artery disease. Patient be started on Lasix drip and responded well on the last admission. Some restriction. Strict I's and O's. -Persistent atrial flutter fibrillation with ventricular rate uncontrolled. Lopressor 75 mg twice a day. Continue eliquis -Multiple superficial abdominal wall excoriations from scratching, -Dermatotil lomania -COPD in an ex-smoker -Chronic DVT chronically on anticoagulation -Hyperlipidemia -Essential hypertension -Chronic kidney disease stage III from diabetic nephropathy and hypertensive nephrosclerosis -Obstructive sleep apnea does not use a device -Hypothyroid -Peripheral arterial disease -Multiple abdominal wall hernia from prior surgery -Colonic diverticulosis -Morbid obesity BMI 54.6 -Diabetes mellitus type 2 chronically on insulin. With peripheral neuropathy. Resume Levemir. Follow Accu-Cheks. Additionally: Continue ALLERGY consulted. Put on Lasix drip. Strict I's and O's. Fluid restriction. Discussed with the patient. Wound care. Home medications resumed. Accu-Cheks. Past Medical History Past Medical History: Atrial Fibrillation, Asthma, Coronary Artery Disease (CAD), Chest Pain / Angina, Heart Failure, COPD, Diabetes Mellitus, Deep Vein Thrombosis (DVT), Hyperlipidemia, Hypertension, Myocardial Infarction (ID), Renal Disease, Sleep Apnea/CPAP/BIPAP, Thyroid Disorder, Vascular Disorder Additional Past Medical History / Comment(s): CHF, tracheobronchitis, CKD stage III, kidney stones, DVT L leg in 2004, KAMRYN without device use, colon abscess with bowel resection, multiple abdominal surgeries for a hiatal hernia that was complicated by prolonged hospitalization and prolonged ventilator dependent respiratory failure requiring a tracheostomy tube insertion, pvd-lower legs discolored/edematous, diverticular disease, chronic iron deficiency anemia, vertigo at times, Last Myocardial Infarction Date:: History of Any Multi-Drug Resistant Organisms: MRSA Date of last positivie culture/infection: 02/01/15 MDRO Source:: Abdomen Past Surgical History: Bowel Resection, Heart Catheterization With Stent, Hernia Repair Additional Past Surgical History / Comment(s): Colonoscopies, heart stents x 4, bowel resection with colostomy and colostomy reversal (removed a foot of pts colon)-2003, hernia repair with skin grafts and 2 fistula repairs (hospitalized for 1 year @[facility])-2010 MRSA 2015 in wounds. Past Anesthesia/Blood Transfusion Reactions: No Reported Reaction Additional Past Anesthesia/Blood Transfusion Reaction / Comment(s): Pt has received blood in past without reaction-2010 Date of Last Stent Placement:: 03/28/2015 Past Psychological History: Depression Additional Psychological History / Comment(s): PT IS DISABLED. PT LIVES WITH 2 PET CATS AND 1 DOG. HOME HAS A RAMP. USES A CANE CURRENTLY-. Smoking Status: Current every day smoker Past Alcohol Use History: None Reported Additional Past Alcohol Use History / Comment(s): smokes .25 pack a day. Past Drug Use History: None Reported - Past Family History Mother Family Medical History: Osteoarthritis (OA), Pneumonia Additional Family Medical History / Comment(s): osteoporosis. arthroscopy surgery for knee Father Family Medical History: Liver Disease, Renal Disease Additional Family Medical History / Comment(s): triple heart bypass. liver transplant. aortic aneursym Medications and Allergies Home Medications Medication Instructions Recorded Confirmed Type Sertraline [Zoloft] 150 mg PO DAILY 10/19/13 07/26/20 History Atorvastatin [Lipitor] 80 mg PO HS 03/25/15 07/26/20 History Furosemide [Lasix] 60 mg PO TID 11/05/19 07/26/20 History traMADol HCL 50 mg PO BID PRN 11/05/19 07/26/20 History Gabapentin [Neurontin] 300 mg PO HS 11/20/19 07/26/20 History Insulin Detemir [Levemir Flextouch] 50 units SQ HS #0 11/21/19 07/26/20 Rx Ammonium Lactate Cream [Lac-Hydrin 1 inch TOPICAL BID 06/23/20 07/26/20 History 12% Cream] Lactulose [Constulose] 20 gm PO DAILY PRN 06/23/20 07/26/20 History Nitroglycerin Sl Tabs [Nitrostat] 0.4 mg SL Q5M PRN 06/23/20 07/26/20 History Potassium Chloride ER [K-Dur 20] 40 meq PO DAILY 06/23/20 07/26/20 History Spironolactone [Aldactone] 18.75 mg PO DAILY 06/23/20 07/26/20 History Apixaban [Eliquis] 5 mg PO BID #60 tab 06/26/20 07/26/20 Rx Metoprolol Tartrate [Lopressor] 50 mg PO BID #60 tab 06/26/20 07/26/20 Rx buPROPion XL [Wellbutrin Xl] 150 mg PO DAILY 07/26/20 07/26/20 History Allergies Allergy/AdvReac Type Severity Reaction Status Date / Time adhesive Allergy "PLASTIC Verified 07/26/20 18:31 TAPE PEELS SKIN,PAPER TAPE IS OK" linezolid Allergy Unknown Verified 07/26/20 18:31 penicillin G Allergy Rash/Hives Verified 07/26/20 18:31 Cephalosporins AdvReac FEVER Verified 07/26/20 18:31 Physical Exam Vitals: Vital Signs Temp Pulse Pulse Resp BP BP Pulse Ox 07/27/20 07:00 97.4 F L 100 20 130/87 96 07/27/20 06:25 18 112/70 07/27/20 03:05 98.8 F 114 H 20 107/75 97 07/27/20 01:13 120 H 22 120/63 97 07/26/20 23:10 98.3 F 118 H 24 122/80 96 07/26/20 21:36 133 H 18 121/87 97 07/26/20 19:33 135 H 18 113/77 95 07/26/20 18:00 119 H 16 126/91 99 07/26/20 17:09 115 H 16 116/81 99 07/26/20 15:51 24 07/26/20 15:28 98.3 F 114 H 16 113/77 Intake and Output 07/26/20 07/27/20 07/27/20 22:59 06:59 14:59 Intake Total 120 Output Total 400 250 Balance -400 -250 120 Intake: Oral 120 Output: Urine 400 250 Other: Voiding Method Urinal Weight 152 kg 153.5 kg Results CBC & Chem 7: 07/26/20 15:41 07/27/20 09:44 Labs: Abnormal Lab Results - Last 24 Hours (Table) 07/26/20 07/26/20 07/26/20 Range/Units 15:41 15:41 23:21 RBC 3.97 L (4.30-5.90) m/uL Hgb 11.2 L (13.0-17.5) gm/dL Hct 35.6 L (39.0-53.0) % RDW 18.9 H (11.5-15.5) % Plt Count 128 L (150-450) k/uL Carbon Dioxide 32 H (22-30) mmol/L BUN 29 H (9-20) mg/dL Creatinine 1.62 H (0.66-1.25) mg/dL Glucose 110 H (74-99) mg/dL POC Glucose (mg/dL) 334 H (75-99) mg/dL Total Bilirubin 1.7 H (0.2-1.3) mg/dL 07/27/20 07/27/20 Range/Units 01:07 06:20 RBC (4.30-5.90) m/uL Hgb (13.0-17.5) gm/dL Hct (39.0-53.0) % RDW (11.5-15.5) % Plt Count (150-450) k/uL Carbon Dioxide (22-30) mmol/L BUN (9-20) mg/dL Creatinine (0.66-1.25) mg/dL Glucose (74-99) mg/dL POC Glucose (mg/dL) 288 H 172 H (75-99) mg/dL Total Bilirubin (0.2-1.3) mg/dL Thrombosis Risk Factor Assmnt - Choose All That Apply Each Factor Represents 1 point: Age 41-60 years, Heart failure (<1month), Obesity (BMI >25), Swollen legs (current) Each Risk Factor Represents 3 Points: History of DVT/PE Thrombosis Risk Factor Assessment Total Risk Factor Score: 7 Thrombosis Risk Factor Assessment Level: High Risk
[2020-07-28 06:17] LABS: Glucose,Whole Blood 136 mg/dL (75-99)
[2020-07-28] MEDS: INSULIN ASPART (NovoLOG) 100 UNIT/ML VIAL SQ SCH ×4 (06:26→20:15)
[2020-07-28] MEDS: IPRATROPIUM-ALBUTEROL 3 ML NEB INHALATION SCH ×4 (07:33→19:23)
[2020-07-28] MEDS: SERTRALINE 50 MG TAB PO SCH (09:26)
[2020-07-28] MEDS: FUROSEMIDE 100 MG in SODIUM CHLORIDE 0.9% 90 ML IV SCH ×2 (09:26→18:25)
[2020-07-28] MEDS: SPIRONOLACTONE 25 MG TAB PO SCH (09:26)
[2020-07-28] MEDS: METOPROLOL TARTRATE 50 MG TAB PO SCH ×2 (09:26→20:15)
[2020-07-28] MEDS: POTASSIUM CHLORIDE ER 20 MEQ TAB.ER PO SCH (09:26)
[2020-07-28] MEDS: traMADol 50 MG TAB PO PRN ×3 (09:27→20:14)
[2020-07-28] MEDS: APIXABAN 5 MG TAB PO SCH ×2 (09:27→20:15)
[2020-07-28] MEDS: buPROPion XL 150 MG TAB.ER.24H PO SCH (09:27)
[2020-07-28 12:05] LABS: Glucose,Whole Blood 138 mg/dL (75-99)
[2020-07-28] MEDS ORDERED: BENZOCAINE/MENTHOL LOZENG 1 EACH LOZENGE MUCOUS MEM PRN (12:38)
[2020-07-28] MEDS ORDERED: METOPROLOL TARTRATE 25 MG TAB PO STA (12:39)
--- NOTE | 2020-07-28 12:46 | P.PN ---
Subjective Progress Note Date: 07/28/20 CHIEF COMPLAINT: A. fib with RVR, CHF HISTORY OF PRESENT ILLNESS: 07/27/2020 This is a 50-year-old male with a past medical history significant for congestive heart failure, hypertension, hyperlipidemia, chronic A. fib, chronic kidney disease, COPD, nicotine dependence, and coronary artery disease with previous PCI to circumflex and LAD. Patient follows in the office with Dr. Wood. We have been asked to see the patient in consultation for A. fib with RVR and CHF. Patient examined this morning at the bedside. Patient denies chest pain or pressure. He reports he has been feeling short of breath over the last 2-3 days. He reports increased lower extremity edema. Patient states he has not been compliant with his diet and reports eating a lot of high sodium foods on Saturday for the [employer]. He reports taking all of his medications. Patient was recently hospitalized in June 2020 for congestive heart failure. Echocardiogram completed that time revealed ejection fraction 55-60% with moderate mitral regurgitation. Patient was given a one-time dose of Lasix in the emergency room. He states he is still short of breath this morning. Nereida ent was found to be in atrial flutter with a heart rate in the 110s in the emergency room. He was started on IV amiodarone. 07/28/2020 Patient examined this morning at the bedside. Patient denies chest pain or pressure. He reports shortness of breath today. Patient is complaining of a dry nonproductive cough. Patient appears to be less dyspneic on evaluation today. He has been started on a Lasix drip per internal medicine. Fluid balance over the last 24 hours is -2500 mL. PHYSICAL EXAM: VITAL SIGNS: Reviewed. GENERAL: Well-developed in no acute distress. HEENT: Head is normocephalic. Pupils are equal, round. Sclerae anicteric. Mucous membranes of the mouth are moist. Neck supple. No JVD or thyromegaly LUNGS: Respirations even and unlabored. Lungs diminished with crackles at the bases and scattered expiratory wheezing. Dry nonproductive cough noted. HEART: Irregular rate and rhythm. S1 and S2 heard. ABDOMEN: Soft. Nondistended. Nontender. EXTREMITIES: Normal range of motion. No clubbing or cyanosis. Peripheral pulses intact. 2+ bilateral lower extremity edema NEUROLOGIC: Awake and alert. Oriented x 3. ASSESSMENT: Acute exacerbation of chronic diastolic heart failure, EF 55-60% Coronary artery disease with previous PCI to circumflex and LAD Chronic persistent atrial fibrillation, on anticoagulation with Eliquis Hypertension Hyperlipidemia COPD Chronic kidney disease Nicotine dependence, patient smokes 2-3 cigarettes a day Morbid obesity: BMI 54.6 PLAN: Increase metoprolol to 100 mg twice a day. Continue telemetry monitoring Continue Lasix drip Monitor kidney function Daily weights Accurate I&O Further recommendations pending patient's course Nurse practitioner note has been reviewed by physician. Signing provider agrees with the documented findings, assessment, and plan of care. Objective - Vital Signs Vital signs: Vital Signs Temp 98.1 F 07/28/20 02:00 Pulse 100 07/28/20 11:43 Resp 20 07/28/20 02:00 BP 116/69 07/28/20 02:00 Pulse Ox 95 07/28/20 02:00 Intake & Output 07/27/20 07/28/20 07/28/20 18:59 06:59 18:59 Intake Total 462 76.167 99.333 Output Total 1000 2049 400 Balance -538 -1973.833 -300.667 Weight 151.5 kg Intake: Intake, IV Titration 76.167 99.333 Amount Furosemide 100 mg In 76.167 99.333 Sodium Chloride 0.9% 90 ml @ 10 MG/HR 10 mls/hr IV .Q10H [facility] Rx#: [id number] Oral 462 Output: Urine 1000 0 400 Other: Voiding Method Urinal Urinal - Labs CBC & Chem 7: 07/26/20 15:41 07/27/20 09:44 Labs: Abnormal Lab Results - Last 24 Hours (Table) 07/27/20 07/27/20 07/27/20 Range/Units 12:10 16:49 20:38 POC Glucose (mg/dL) 236 H 138 H 150 H (75-99) mg/dL 07/28/20 07/28/20 Range/Units 06:16 12:03 POC Glucose (mg/dL) 136 H 138 H (75-99) mg/dL
[2020-07-28 17:14] LABS: Glucose,Whole Blood 135 mg/dL (75-99)
[2020-07-28] MEDS: guaiFENesin SYRUP 100MG/5ML 200 MG/10 ML CUP PO PRN (17:39)
[2020-07-28] MEDS: AMMONIUM LACTATE 12% CREAM 140 GM TUBE TOPICAL SCH ×2 (17:40→20:16)
[2020-07-28 20:10] LABS: Glucose,Whole Blood 154 mg/dL (75-99)
[2020-07-28] MEDS: INSULIN DETEMIR (LEVEMIR) 100 UNIT/ML SYR SQ SCH (20:15)
[2020-07-28] MEDS: ATORVASTATIN 80 MG TAB PO SCH (20:15)
[2020-07-28] MEDS: GABAPENTIN 300 MG CAP PO SCH (20:15)
--- NOTE | 2020-07-28 22:32 | P.PN ---
Progress Note - Text Progress Note Date: 07/28/20 Chief Complaint: Shortness of breath, edema History of presenting complaint: This is a pleasant 50-year-old patient with extensive medical history. Patient follows with visiting physicians. Dr. Chaney. Chronic stable medical conditions include diabetes with peripheral neuropathy, coronary artery disease with stent, COPD, hypertension, hyperlipidemia, chronic kidney disease, kidney stones,(s) sleep apnea does not use a device, multiple abdominal surgeries for hiatal hernia, also history of tracheostomy, peripheral arterial disease, diverticulosis,. 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 Normally uses a scooter or a walker to get about. Patient has chronic breakdown of superficial skin on the abdominal wall from scratching. Patient now presents to the ER increasing shortness of breath. Minimal cough. Decrease lower extremity edema. No fever no chills. He was having orthopnea. Appetite is okay. He has chronic abdominal wall excoriations. Admitted with CHF exacerbation. Put on Lasix drip. Atrial fibrillation rate uncontrolled. Today-continues on Lasix drip. Over 4 L in negative fluid balance. Oral intake improving. Review of systems: Was done for constitutional, cardiovascular, GI, pulmonary. relevant finding as above Active Medications Acetaminophen (Acetaminophen Tab 500 Mg Tab) 500 mg PO Q4HR PRN PRN Reason: Fever and/ or Pain Albuterol/Ipratropium (Ipratropium-Albuterol 3 Ml Neb) 3 ml INHALATION RT-QID [facility] Last Admin: 07/28/20 19:23 Dose: 3 ml Documented by: Albuterol/Ipratropium (Ipratropium-Albuterol 3 Ml Neb) 3 ml INHALATION RT-Q1H PRN PRN Reason: Shortness Of Breath Or Wheezing Last Admin: 07/28/20 03:33 Dose: 3 ml Documented by: Apixaban (Apixaban 5 Mg Tab) 5 mg PO BID [facility] Last Admin: 07/28/20 20:15 Dose: 5 mg Documented by: Atorvastatin Calcium (Atorvastatin 80 Mg Tab) 80 mg PO HS [facility] Last Admin: 07/28/20 20:15 Dose: 80 mg Documented by: Benzocaine/Menthol (Benzocaine/Menthol Lozeng 1 Each Lozenge) 1 each MUCOUS MEM Q4HR PRN PRN Reason: Cough Last Admin: 07/28/20 13:51 Dose: 1 each Documented by: Bupropion HCl (Bupropion Xl 150 Mg Tab.Er.24h) 150 mg PO DAILY [facility] Last Admin: 07/28/20 09:27 Dose: 150 mg Documented by: Gabapentin (Gabapentin 300 Mg Cap) 300 mg PO [facility] Last Admin: 07/28/20 20:15 Dose: 300 mg Documented by: Guaifenesin (Guaifenesin Syrup 100mg/5ml 200 Mg/10 Ml Cup) 200 mg PO Q6H PRN PRN Reason: Cough Last Admin: 07/28/20 17:39 Dose: 200 mg Documented by: Furosemide 100 mg/ Sodium (Chloride) 100 mls @ 10 mls/hr IV .Q10H [facility] Last Admin: 07/28/20 18:25 Dose: 10 mg/hr, 10 mls/hr Documented by: Insulin Aspart (Insulin Aspart (Novolog) 100 Unit/Ml Vial) [address] [facility]; Protocol Last Admin: 07/28/20 20:15 Dose: 2 unit Documented by: Insulin Detemir (Insulin Detemir (Levemir) 100 Unit/Ml Syr) 50 unit SQ [facility] Last Admin: 07/28/20 20:15 Dose: 50 unit Documented by: Lactic Acid (Ammonium Lactate 12% Cream 140 Gm Tube) 1 applic TOPICAL BID [facility] Last Admin: 07/28/20 20:16 Dose: 1 applic Documented by: Lactulose (Lactulose 20 Gm/30 Ml Cup) 20 gm PO DAILY PRN PRN Reason: Constipation Metoprolol Tartrate (Metoprolol Tartrate 50 Mg Tab) 100 mg PO BID [facility] Last Admin: 07/28/20 20:15 Dose: 100 mg Documented by: Naloxone HCl (Naloxone 0.4 Mg/Ml 1 Ml Vial) 0.2 mg IV Q2M PRN PRN Reason: Opioid Reversal Nitroglycerin (Nitroglycerin Sl Tabs 0.4 Mg Tab) 0.4 mg SUBLINGUAL Q5M PRN PRN Reason: Chest Pain Potassium Chloride (Potassium Chloride Er 20 Meq Tab.Er) 40 meq PO DAILY [facility] Last Admin: 07/28/20 09:26 Dose: 40 meq Documented by: Sertraline HCl (Sertraline 50 Mg Tab) 150 mg PO DAILY [facility] Last Admin: 07/28/20 09:26 Dose: 150 mg Documented by: Spironolactone (Spironolactone 25 Mg Tab) 18.75 mg PO DAILY [facility] Last Admin: 07/28/20 09:26 Dose: 18.75 mg Documented by: Tramadol HCl (Tramadol 50 Mg Tab) 50 mg PO TID PRN PRN Reason: Analgesia Last Admin: 07/28/20 20:14 Dose: 50 mg Documented by: Past medical history to include: Atrial fibrillation, coronary artery disease with stent, congestive heart failure EF 30-35%, COPD, DVT, hypertension, hyperlipidemia, chronic kidney disease, obstructive sleep apnea, hypothyroid, peripheral artery disease, chronic kidney disease stage III, kidney stones, DVT in left leg in 2004,: Abscess with bowel resection, multiple abdominal surgeries for hiatal hernia,. Bladder prolonged hospitalization and prolonged medical-related dependent, with a tracheostomy tube, peripheral arterial disease, colonic diverticulosis, iron deficiency anemia,. Diabetes with peripheral neuropathy Social history: Patient is on disability. Patient smoked for about 10 years and stopped in 2008. No alcohol. Patient lives alone. Does have a scooter and a walker Physical examination: VITAL SIGNS: 98.4, 99, 19, 115/72, 97% on 4 L GENERAL: BMI 54.6, sitting up in bed, eating, slightly short of breath EYES: Pupils equal. Conjunctiva normal. HEENT: External appearance of nose and ears normal, oral cavity grossly normalNECK: JVD unable to assess; masses not palpable. HEART: Heart sounds irregular; significant edema. LUNGS: Respiratory rate increased; decreased breath sounds ABDOMEN: Soft, nontender, liver spleen not palpable, no masses palpable, distended, with superficial breakdown of skin, and multiple areas. PSYCH: Alert and oriented x3; mood and affect tired. EXTREMITIES: Pigmentation of the both lower extremity distally INVESTIGATIONS, reviewed in the clinical context: White count 4.6 hemoglobin 11.2 platelets 128 potassium 3.7 bun 29 creatinine 1.6 to EKG tracing personally reviewed by me-atrial flutter with a variable rate up to 113 Chest x-ray film personally reviewed by me-venous prominence Previous testin06/26/2020 BUN 41 and creatinine 2.56 2-D echocardiogram-atrial flutter, EF 55 have a 60%, moderate concentric LVH, some wall motion abnormality, moderate mitral regurgitation, moderate pulmonary hypertension Assessment: -Acute on chronic congestive heart exacerbation EF of 50-55% from diastolic dysfunction from underlying coronary artery disease. Patient be started on Lasix drip . Fluid restriction. About 4 L a negative fluid balance -Persistent atrial flutter fibrillation with ventricular rate uncontrolled. Lopressor 75 mg twice a day. Continue eliquis -Multiple superficial abdominal wall excoriations from scratching, - Dermatotillomania -COPD in an ex-smoker -Chronic DVT chronically on anticoagulation -Hyperlipidemia -Essential hypertension -Chronic kidney disease stage III from diabetic nephropathy and hypertensive nephrosclerosis -Obstructive sleep apnea does not use a device -Hypothyroid -Peripheral arterial disease -Multiple abdominal wall hernia from prior surgery -Colonic diverticulosis -Morbid obesity BMI 54.6 -Diabetes mellitus type 2 chronically on insulin. With peripheral neuropathy. Resume Levemir. Follow Accu-Cheks. Additionally: Continue Lasix drip. Follow I's and O's. Repeat labs/BNP in the morning. Discussed with the patient.
[2020-07-29] MEDS: guaiFENesin SYRUP 100MG/5ML 200 MG/10 ML CUP PO PRN ×2 (00:08→09:22)
[2020-07-29 06:27] LABS: Glucose,Whole Blood 105 mg/dL (75-99)
[2020-07-29] MEDS: FUROSEMIDE 100 MG in SODIUM CHLORIDE 0.9% 90 ML IV SCH (06:28)
[2020-07-29] MEDS: INSULIN ASPART (NovoLOG) 100 UNIT/ML VIAL SQ SCH ×4 (06:28→20:26)
[2020-07-29] MEDS: IPRATROPIUM-ALBUTEROL 3 ML NEB INHALATION SCH ×4 (08:20→19:13)
[2020-07-29 08:25] LABS: Calcium 8.9 mg/dL (8.4-10.2); Potassium 3.5 mmol/L (3.5-5.1)
[2020-07-29] MEDS: APIXABAN 5 MG TAB PO SCH ×2 (09:20→20:26)
[2020-07-29] MEDS: AMMONIUM LACTATE 12% CREAM 140 GM TUBE TOPICAL SCH ×2 (09:20→20:34)
[2020-07-29] MEDS: SPIRONOLACTONE 25 MG TAB PO SCH (09:21)
[2020-07-29] MEDS: buPROPion XL 150 MG TAB.ER.24H PO SCH (09:21)
[2020-07-29] MEDS: METOPROLOL TARTRATE 50 MG TAB PO SCH ×2 (09:21→20:26)
[2020-07-29] MEDS: POTASSIUM CHLORIDE ER 20 MEQ TAB.ER PO SCH (09:21)
[2020-07-29] MEDS: SERTRALINE 50 MG TAB PO SCH (09:21)
[2020-07-29 11:51] LABS: Glucose,Whole Blood 100 mg/dL (75-99)
--- NOTE | 2020-07-29 12:28 | P.PN ---
Subjective Progress Note Date: 07/29/20 CHIEF COMPLAINT: A. fib with RVR, CHF HISTORY OF PRESENT ILLNESS: 07/27/2020 This is a 50-year-old male with a past medical history significant for congestive heart failure, hypertension, hyperlipidemia, chronic A. fib, chronic kidney disease, COPD, nicotine dependence, and coronary artery disease with previous PCI to circumflex and LAD. Patient follows in the office with Dr. Wood. We have been asked to see the patient in consultation for A. fib with RVR and CHF. Patient examined this morning at the bedside. Patient denies chest pain or pressure. He reports he has been feeling short of breath over the last 2-3 days. He reports increased lower extremity edema. Patient states he has not been compliant with his diet and reports eating a lot of high sodium foods on Saturday for the [employer]. He reports taking all of his medications. Patient was recently hospitalized in June 2020 for congestive heart failure. Echocardiogram completed that time revealed ejection fraction 55-60% with moderate mitral regurgitation. Patient was given a one-time dose of Lasix in the emergency room. He states he is still short of breath this morning. Nereida ent was found to be in atrial flutter with a heart rate in the 110s in the emergency room. He was started on IV amiodarone. 07/28/2020 Patient examined this morning at the bedside. Patient denies chest pain or pressure. He reports shortness of breath today. Patient is complaining of a dry nonproductive cough. Patient appears to be less dyspneic on evaluation today. He has been started on a Lasix drip per internal medicine. Fluid balance over the last 24 hours is -2500 mL. 07/29/2020 Patient examined this morning at the bedside. Patient denies chest pain or pressure. He appears to be slightly more comfortable today. However he continues to complain of shortness of breath and a persistent dry nonproductive cough. He remains on a Lasix drip. Fluid balance over the last 24 hours is -3 L. Creatinine today is 2.08, up from 1.8. Patient's heart rate is in the low 100s. His beta ariella was increased yesterday to 100 mg twice a day. PHYSICAL EXAM: VITAL SIGNS: Reviewed. GENERAL: Well-developed in no acute distress. HEENT: Head is normocephalic. Pupils are equal, round. Sclerae anicteric. Mucous membranes of the mouth are moist. Neck supple. No JVD or thyromegaly LUNGS: Respirations even and unlabored. Lungs diminished with crackles at the bases and scattered expiratory wheezing. Dry nonproductive cough noted. HEART: Irregular rate and rhythm. S1 and S2 heard. ABDOMEN: Soft. Nondistended. Nontender. EXTREMITIES: Normal range of motion. No clubbing or cyanosis. Peripheral pulses intact. 2+ bilateral lower extremity edema NEUROLOGIC: Awake and alert. Oriented x 3. ASSESSMENT: Acute exacerbation of chronic diastolic heart failure, EF 55-60% Coronary artery disease with previous PCI to circumflex and LAD Chronic persistent atrial fibrillation, on anticoagulation with Eliquis Hypertension Hyperlipidemia COPD Chronic kidney disease Nicotine dependence, patient smokes 2-3 cigarettes a day Morbid obesity: BMI 54.6 PLAN: Continue telemetry monitoring. Monitor heart rate. May need adjustment of beta ariella if heart rate remains elevated. Continue Lasix Monitor kidney function Daily weights Accurate I&O Further recommendations pending patient's course Nurse practitioner note has been reviewed by physician. Signing provider agrees with the documented findings, assessment, and plan of care. Objective - Vital Signs Vital signs: Vital Signs Temp 98.1 F 07/29/20 07:00 Pulse 110 H 07/29/20 11:49 Resp 18 07/29/20 11:24 BP 111/70 07/29/20 11:24 Pulse Ox 95 07/29/20 11:24 Intake & Output 07/28/20 07/29/20 07/29/20 18:59 06:59 18:59 Intake Total 189.166 100 Output Total 1850 1475 600 Balance -1660.834 -1375 -600 Weight 155 kg Intake: Intake, IV Titration 189.166 100 Amount Furosemide 100 mg In 189.166 100 Sodium Chloride 0.9% 90 ml @ 10 MG/HR 10 mls/hr IV .Q10H [facility] Rx#: [id number] Output: Urine 1850 1475 600 Other: Voiding Method Urinal Urinal - Labs CBC & Chem 7: 07/26/20 15:41 07/29/20 07:04 Labs: Abnormal Lab Results - Last 24 Hours (Table) 07/28/20 07/28/20 07/29/20 Range/Units 17:13 20:08 06:26 Sodium (137-145) mmol/L Chloride (98-107) mmol/L BUN (9-20) mg/dL Creatinine (0.66-1.25) mg/dL POC Glucose (mg/dL) 135 H 154 H 105 H (75-99) mg/dL 07/29/20 07/29/20 Range/Units 07:04 11:42 Sodium 135 L (137-145) mmol/L Chloride 95 L (98-107) mmol/L BUN 44 H (9-20) mg/dL Creatinine 2.08 H (0.66-1.25) mg/dL POC Glucose (mg/dL) 100 H (75-99) mg/dL
--- NOTE | 2020-07-29 12:50 | XR ---
EXAMINATION TYPE: XR chest 1V portable DATE OF EXAM: 07/29/2020 COMPARISON: 07/26/2020 HISTORY: Shortness of breath FINDINGS: Noted is pulmonary venous congestion with scattered infiltrates. There is also cardiomegaly and small effusions. IMPRESSION: Findings compatible with congestive failure. Infiltrates of other etiology are not excluded. Clinical correlation and progress studies are recommended.
[2020-07-29] MEDS: guaiFENesin 600 MG TABLET.ER PO SCH ×3 (14:15→20:26)
[2020-07-29 17:08] LABS: Glucose,Whole Blood 118 mg/dL (75-99)
[2020-07-29 20:09] LABS: Glucose,Whole Blood 275 mg/dL (75-99)
[2020-07-29] MEDS: ATORVASTATIN 80 MG TAB PO SCH (20:26)
[2020-07-29] MEDS: INSULIN DETEMIR (LEVEMIR) 100 UNIT/ML SYR SQ SCH (20:26)
[2020-07-29] MEDS: GABAPENTIN 300 MG CAP PO SCH (20:26)
[2020-07-29] MEDS: traMADol 50 MG TAB PO PRN (20:31)
--- NOTE | 2020-07-29 20:31 | P.PN ---
Progress Note - Text Progress Note Date: 07/29/20 Chief Complaint: Shortness of breath, edema History of presenting complaint: This is a pleasant 50-year-old patient with extensive medical history. Patient follows with visiting physicians. Dr. Chaney. Chronic stable medical conditions include diabetes with peripheral neuropathy, coronary artery disease with stent, COPD, hypertension, hyperlipidemia, chronic kidney disease, kidney stones,(s) sleep apnea does not use a device, multiple abdominal surgeries for hiatal hernia, also history of tracheostomy, peripheral arterial disease, diverticulosis,. 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 Normally uses a scooter or a walker to get about. Patient has chronic breakdown of superficial skin on the abdominal wall from scratching. Patient now presents to the ER increasing shortness of breath. Minimal cough. Decrease lower extremity edema. No fever no chills. He was having orthopnea. Appetite is okay. He has chronic abdominal wall excoriations. Admitted with CHF exacerbation. Put on Lasix drip. Atrial fibrillation rate uncontrolled. About 7 L in negative fluid balance. Today-has a congested cough. Not able to expectorate. Over 7 L in negative fluid balance. Oral intake fair. Unable to expectorate. Review of systems: Was done for constitutional, cardiovascular, GI, pulmonary. relevant finding as above Active Medications Acetaminophen (Acetaminophen Tab 500 Mg Tab) 500 mg PO Q4HR PRN PRN Reason: Fever and/ or Pain Albuterol/Ipratropium (Ipratropium-Albuterol 3 Ml Neb) 3 ml INHALATION RT-QID [facility] Last Admin: 07/29/20 19:13 Dose: 3 ml Documented by: Albuterol/Ipratropium (Ipratropium-Albuterol 3 Ml Neb) 3 ml INHALATION RT-Q1H PRN PRN Reason: Shortness Of Breath Or Wheezing Last Admin: 07/28/20 03:33 Dose: 3 ml Documented by: Apixaban (Apixaban 5 Mg Tab) 5 mg PO BID [facility] Last Admin: 07/29/20 09:20 Dose: 5 mg Documented by: Atorvastatin Calcium (Atorvastatin 80 Mg Tab) 80 mg PO HS [facility] Last Admin: 07/28/20 20:15 Dose: 80 mg Documented by: Benzocaine/Menthol (Benzocaine/Menthol Lozeng 1 Each Lozenge) 1 each MUCOUS MEM Q4HR PRN PRN Reason: Cough Last Admin: 07/28/20 13:51 Dose: 1 each Documented by: Bupropion HCl (Bupropion Xl 150 Mg Tab.Er.24h) 150 mg PO DAILY [facility] Last Admin: 07/29/20 09:21 Dose: 150 mg Documented by: Furosemide (Furosemide 10 Mg/Ml 10 Ml Vial) 60 mg IV Q12HR [facility] Gabapentin (Gabapentin 300 Mg Cap) 300 mg PO HS [facility] Last Admin: 07/28/20 20:15 Dose: 300 mg Documented by: Guaifenesin (Guaifenesin 600 Mg Tablet.Er) 600 mg PO QID [facility] Last Admin: 07/29/20 17:46 Dose: 600 mg Documented by: Insulin Aspart (Insulin Aspart (Novolog) 100 Unit/Ml Vial) 0 unit SQ [facility]; Protocol Last Admin: 07/29/20 17:46 Dose: Not Given Documented by: Insulin Detemir (Insulin Detemir (Levemir) 100 Unit/Ml Syr) 50 unit SQ [facility] Last Admin: 07/28/20 20:15 Dose: 50 unit Documented by: Lactic Acid (Ammonium Lactate 12% Cream 140 Gm Tube) 1 applic TOPICAL BID [facility] Last Admin: 07/29/20 09:20 Dose: 1 applic Documented by: Lactulose (Lactulose 20 Gm/30 Ml Cup) 20 gm PO DAILY PRN PRN Reason: Constipation Metoprolol Tartrate (Metoprolol Tartrate 50 Mg Tab) 100 mg PO BID [facility] Last Admin: 07/29/20 09:21 Dose: 100 mg Documented by: Naloxone HCl (Naloxone 0.4 Mg/Ml 1 Ml Vial) 0.2 mg IV Q2M PRN PRN Reason: Opioid Reversal Nitroglycerin (Nitroglycerin Sl Tabs 0.4 Mg Tab) 0.4 mg SUBLINGUAL Q5M PRN PRN Reason: Chest Pain Potassium Chloride (Potassium Chloride Er 20 Meq Tab.Er) 40 meq PO DAILY [facility] Last Admin: 07/29/20 09:21 Dose: 40 meq Documented by: Sertraline HCl (Sertraline 50 Mg Tab) 150 mg PO DAILY [facility] Last Admin: 07/29/20 09:21 Dose: 150 mg Documented by: Spironolactone (Spironolactone 25 Mg Tab) 18.75 mg PO DAILY [facility] Last Admin: 07/29/20 09:21 Dose: 18.75 mg Documented by: Tramadol HCl (Tramadol 50 Mg Tab) 50 mg PO TID PRN PRN Reason: Analgesia Last Admin: 07/28/20 20:14 Dose: 50 mg Documented by: Past medical history to include: Atrial fibrillation, coronary artery disease with stent, congestive heart failure EF 30-35%, COPD, DVT, hypertension, hyperlipidemia, chronic kidney disease, obstructive sleep apnea, hypothyroid, peripheral artery disease, chronic kidney disease stage III, kidney stones, DVT in left leg in 2004,: Abscess with bowel resection, multiple abdominal surgeries for hiatal hernia,. Bladder prolonged hospitalization and prolonged medical-related dependent, with a tracheostomy tube, peripheral arterial disease, colonic diverticulosis, iron deficiency anemia,. Diabetes with peripheral neuropathy Social history: Patient is on disability. Patient smoked for about 10 years and stopped in 2008. No alcohol. Patient lives alone. Does have a scooter and a walker Physical examination: VITAL SIGNS: 98.1, 91, 22, 106/75, 95% on 5 L GENERAL: Propper in bed, congested cough EYES: Pupils equal. Conjunctiva normal. HEENT: External appearance of nose and ears normal, oral cavity grossly normalNECK: JVD unable to assess; masses not palpable. HEART: Heart sounds irregular; significant edema. LUNGS: Respiratory rate increased; some expiratory crackles ABDOMEN: Soft, nontender, liver spleen not palpable, no masses palpable, distended, with superficial breakdown of skin, and multiple areas. PSYCH: Alert and oriented x3; mood and affect tired. EXTREMITIES: Pigmentation of the both lower extremity distally INVESTIGATIONS, reviewed in the clinical context: July 29: Potassium 3.5 bun 44 creatinine 2.08 Chest x-ray film personally reviewed by me-bilateral infiltrates White count 4.6 hemoglobin 11.2 platelets 128 potassium 3.7 bun 29 creatinine 1.6 to EKG tracing personally reviewed by me-atrial flutter with a variable rate up to 113 Chest x-ray film personally reviewed by me-venous prominence Previous testin06/26/2020 BUN 41 and creatinine 2.56 2-D echocardiogram-atrial flutter, EF 55 have a 60%, moderate concentric LVH, some wall motion abnormality, moderate mitral regurgitation, moderate pulmonary hypertension Assessment: -Acute on chronic congestive heart exacerbation EF of 50-55% from diastolic dysfunction from underlying coronary artery disease. Patient be started on Lasix drip . Fluid restriction. About 7 L a negative fluid balance. 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 -Possible pneumonia, suspect gram-negative organism. Start the patient on cefepime -Persistent atrial flutter fibrillation with ventricular rate uncontrolled. Lop ressor 75 mg twice a day. Continue eliquis -Multiple superficial abdominal wall excoriations from scratching, - Dermatotillomania -COPD in an ex-smoker -Chronic DVT chronically on anticoagulation -Hyperlipidemia -Essential hypertension -Chronic kidney disease stage III from diabetic nephropathy and hypertensive nephrosclerosis -Obstructive sleep apnea does not use a device -Hypothyroid -Peripheral arterial disease -Multiple abdominal wall hernia from prior surgery -Colonic diverticulosis -Morbid obesity BMI 54.6 -Diabetes mellitus type 2 chronically on insulin. With peripheral neuropathy. Resume Levemir. Follow Accu-Cheks. Additionally: Stop Lasix drip. IV Lasix 60 mg every 12 starting tomorrow. Repeat BMP pro- calcitonin. Start cefepime. Add Mucinex.
[2020-07-29] MEDS: CEFEPIME 1 GM in SODIUM CHLORIDE 0.9% 50 ML IVPB SCH (20:58)
[2020-07-29] MEDS ORDERED: FUROSEMIDE 10 MG/ML 10 ML VIAL IV SCH (21:00)
[2020-07-30 06:15] LABS: Glucose,Whole Blood 91 mg/dL (75-99)
[2020-07-30] MEDS: INSULIN ASPART (NovoLOG) 100 UNIT/ML VIAL SQ SCH ×4 (06:35→20:18)
[2020-07-30 07:40] LABS: Calcium 8.9 mg/dL (8.4-10.2); Potassium 3.3 mmol/L (3.5-5.1)
[2020-07-30] MEDS: traMADol 50 MG TAB PO PRN ×2 (08:35→18:25)
[2020-07-30] MEDS: CEFEPIME 1 GM in SODIUM CHLORIDE 0.9% 50 ML IVPB SCH ×2 (08:35→20:13)
[2020-07-30] MEDS: POTASSIUM CHLORIDE ER 20 MEQ TAB.ER PO SCH (08:36)
[2020-07-30] MEDS: APIXABAN 5 MG TAB PO SCH ×2 (08:36→20:13)
[2020-07-30] MEDS: SERTRALINE 50 MG TAB PO SCH (08:36)
[2020-07-30] MEDS: METOPROLOL TARTRATE 50 MG TAB PO SCH ×2 (08:36→20:13)
[2020-07-30] MEDS: SPIRONOLACTONE 25 MG TAB PO SCH (08:36)
[2020-07-30] MEDS: guaiFENesin 600 MG TABLET.ER PO SCH ×4 (08:36→20:13)
[2020-07-30] MEDS: AMMONIUM LACTATE 12% CREAM 140 GM TUBE TOPICAL SCH ×2 (08:37→20:18)
[2020-07-30] MEDS: buPROPion XL 150 MG TAB.ER.24H PO SCH (08:37)
[2020-07-30] MEDS: IPRATROPIUM-ALBUTEROL 3 ML NEB INHALATION SCH ×4 (08:40→20:32)
[2020-07-30] MEDS ORDERED: FUROSEMIDE 10 MG/ML 10 ML VIAL IV SCH (09:00)
[2020-07-30 11:48] LABS: Glucose,Whole Blood 122 mg/dL (75-99)
--- NOTE | 2020-07-30 12:50 | P.PN ---
Subjective Progress Note Date: 07/30/20 This is a 50-year-old gentleman with a past medical history of CHF, hypertension, hyperlipidemia, chronic atrial fibrillation, chronic kidney disease, COPD, nicotine dependence, CAD with prior PCI to the circumflex and LAD, noncompliance. Follows with Dr. JOHNNIE Wood in the office. We are asked to see the patient in consultation for atrial fibrillation with rapid ventricular response as well as CHF. Patient had previously been on a Lasix drip and his sense B been switched to IV push Lasix 60 mg every 12 hours. Labs this morning show worsening renal function with a BUN of 50 and creatinine 2.13. Fluid balance remains negative. Chest x-ray from yesterday shows some worsening congestion and effusion. Patient remains in atrial fibrillation with reasonably well-controlled ventricular response. This morning he complains of worsening dyspnea with cough and congestion. Objective - Vital Signs Vital signs: Vital Signs Temp 98.0 F 07/30/20 08:00 Pulse 93 07/30/20 08:50 Resp 20 07/30/20 08:00 BP 109/70 07/30/20 08:00 Pulse Ox 96 07/30/20 08:00 Intake & Output 07/29/20 07/30/20 07/30/20 18:59 06:59 18:59 Intake Total 240 50 Output Total 1350 1375 Balance -1110 -1325 Weight 154 kg Intake: Intake, IV Titration 50 Amount Cefepime 1 gm In Sodium 50 Chloride 0.9% 50 ml @ 12. 5 mls/hr IVPB Q12HR COUNT INCLUDES THE [facility] Rx#:[id number] Oral 240 Output: Urine 1350 1375 Other: Voiding Method Urinal # Voids 2 1 - Exam PHYSICAL EXAMINATION: HEENT: Head is atraumatic, normocephalic. Pupils equal, round. Neck is supple. There is no elevated jugular venous pressure. HEART EXAMINATION: Heart sounds irregular irregular, S1 and S2 normal. No murmur or gallop heard. CHEST EXAMINATION: Lungs reveal wheezing throughout. Loose congested cough noted with no expectoration of sputum.. No chest wall tenderness is noted on palpation or with deep breathing. ABDOMEN: Soft, obese, nontender. Large hernia noted. Skin breakdown noted to areas of scar tissue. Bowel sounds are heard. No organomegaly noted. EXTREMITIES: Mild bilateral lower extremity edema with chronic skin changes noted. NEUROLOGIC patient is awake, alert and oriented x3. . - Labs CBC & Chem 7: 07/26/20 15:41 07/30/20 06:58 Labs: Abnormal Lab Results - Last 24 Hours (Table) 07/29/20 07/29/20 07/29/20 Range/Units 07:04 17:07 20:08 Sodium (137-145) mmol/L Potassium (3.5-5.1) mmol/L Chloride (98-107) mmol/L Carbon Dioxide (22-30) mmol/L BUN (9-20) mg/dL Creatinine (0.66-1.25) mg/dL POC Glucose (mg/dL) 118 H 275 H (75-99) mg/dL Procalcitonin 0.22 H (0.02-0.09) ng/mL 07/30/20 07/30/20 Range/Units 06:58 11:46 Sodium 134 L (137-145) mmol/L Potassium 3.3 L (3.5-5.1) mmol/L Chloride 93 L (98-107) mmol/L Carbon Dioxide 31 H (22-30) mmol/L BUN 50 H (9-20) mg/dL Creatinine 2.13 H (0.66-1.25) mg/dL POC Glucose (mg/dL) 122 H (75-99) mg/dL Procalcitonin (0.02-0.09) ng/mL Assessment and Plan Assessment: #1 acute exacerbation of chronic diastolic congestive heart failure, EF 55-60% 2 CAD with previous PCI to the circumflex and LAD #3 chronic persistent atrial fibrillation, anticoagulated #4 CKD with acute kidney injury #5 hypertension #6 COPD #7 hyperlipidemia #8 nicotine dependence #9 obstructive sleep apnea #10 morbid obesity Plan: From cardiology's perspective medications were reviewed we will continue current Lasix dose but we will consult nephrology due to worsening renal function. Continue to monitor renal function, electrolytes, daily weights and accurate I's and O's. We will continue to follow the patient right further recommendations accordingly. The above dictated assessment and findings were discussed with signing physician. The impression and plan of care have been directed as dictated. Hortencia Senior, Nurse Practitioner, acting as scribe for signing physician.
[2020-07-30] MEDS ORDERED: FUROSEMIDE 20 MG TAB PO SCH (16:00)
[2020-07-30 17:24] LABS: Glucose,Whole Blood 116 mg/dL (75-99)
[2020-07-30 20:11] LABS: Glucose,Whole Blood 109 mg/dL (75-99)
[2020-07-30] MEDS: GABAPENTIN 300 MG CAP PO SCH (20:13)
[2020-07-30] MEDS: INSULIN DETEMIR (LEVEMIR) 100 UNIT/ML SYR SQ SCH (20:13)
[2020-07-30] MEDS: ATORVASTATIN 80 MG TAB PO SCH (20:13)
--- NOTE | 2020-07-30 21:37 | P.PN ---
Progress Note - Text Progress Note Date: 07/30/20 Chief Complaint: Shortness of breath, edema History of presenting complaint: This is a pleasant 50-year-old patient with extensive medical history. Patient follows with visiting physicians. Dr. Chaney. Chronic stable medical conditions include diabetes with peripheral neuropathy, coronary artery disease with stent, COPD, hypertension, hyperlipidemia, chronic kidney disease, kidney stones,(s) sleep apnea does not use a device, multiple abdominal surgeries for hiatal hernia, also history of tracheostomy, peripheral arterial disease, diverticulosis,. 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 Normally uses a scooter or a walker to get about. Patient has chronic breakdown of superficial skin on the abdominal wall from scratching. Patient now presents to the ER increasing shortness of breath. Minimal cough. Decrease lower extremity edema. No fever no chills. He was having orthopnea. Appetite is okay. He has chronic abdominal wall excoriations. Admitted with CHF exacerbation. Put on Lasix drip. Atrial fibrillation rate uncontrolled. About 8 L in negative fluid balance. [place] to have pneumonia. Started on IV Zosyn. Today-a bit less congested cough. Now still coughing. Oral intake is okay. Review of systems: Was done for constitutional, cardiovascular, GI, pulmonary. relevant finding as above Active Medications Acetaminophen (Acetaminophen Tab 500 Mg Tab) 500 mg PO Q4HR PRN PRN Reason: Fever and/ or Pain Albuterol/Ipratropium (Ipratropium-Albuterol 3 Ml Neb) 3 ml INHALATION RT-QID [facility] Last Admin: 07/30/20 20:32 Dose: 3 ml Documented by: Albuterol/Ipratropium (Ipratropium-Albuterol 3 Ml Neb) 3 ml INHALATION RT-Q1H PRN PRN Reason: Shortness Of Breath Or Wheezing Last Admin: 07/28/20 03:33 Dose: 3 ml Documented by: Apixaban (Apixaban 5 Mg Tab) 5 mg PO BID [facility] Last Admin: 07/30/20 20:13 Dose: 5 mg Documented by: Atorvastatin Calcium (Atorvastatin 80 Mg Tab) 80 mg PO HS [facility] Last Admin: 07/30/20 20:13 Dose: 80 mg Documented by: Benzocaine/Menthol (Benzocaine/Menthol Lozeng 1 Each Lozenge) 1 each MUCOUS MEM Q4HR PRN PRN Reason: Cough Last Admin: 07/28/20 13:51 Dose: 1 each Documented by: Bupropion HCl (Bupropion Xl 150 Mg Tab.Er.24h) 150 mg PO DAILY [facility] Last Admin: 07/30/20 08:37 Dose: 150 mg Documented by: Furosemide (Furosemide 20 Mg Tab) 60 mg PO BID@0900,1600 [facility] Gabapentin (Gabapentin 300 Mg Cap) 300 mg PO HS [facility] Last Admin: 07/30/20 20:13 Dose: 300 mg Documented by: Guaifenesin (Guaifenesin 600 Mg Tablet.Er) 600 mg PO QID [facility] Last Admin: 07/30/20 20:13 Dose: 600 mg Documented by: Cefepime HCl 1 gm/ Sodium (Chloride) 50 mls @ 12.5 mls/hr IVPB Q12HR [facility] Last Admin: 07/30/20 20:13 Dose: 12.5 mls/hr Documented by: Insulin Aspart (Insulin Aspart (Novolog) 100 Unit/Ml Vial) 0 unit SQ ACHS [facility]; Protocol Last Admin: 07/30/20 20:18 Dose: Not Given Documented by: Insulin Detemir (Insulin Detemir (Levemir) 100 Unit/Ml Syr) [address] [facility] Last Admin: 07/30/20 20:13 Dose: 50 unit Documented by: Lactic Acid (Ammonium Lactate 12% Cream 140 Gm Tube) 1 applic TOPICAL BID [facility] Last Admin: 07/30/20 20:18 Dose: Not Given Documented by: Lactulose (Lactulose 20 Gm/30 Ml Cup) 20 gm PO DAILY PRN PRN Reason: Constipation Metoprolol Tartrate (Metoprolol Tartrate 50 Mg Tab) 100 mg PO BID [facility] Last Admin: 07/30/20 20:13 Dose: 100 mg Documented by: Naloxone HCl (Naloxone 0.4 Mg/Ml 1 Ml Vial) 0.2 mg IV Q2M PRN PRN Reason: Opioid Reversal Nitroglycerin (Nitroglycerin Sl Tabs 0.4 Mg Tab) 0.4 mg SUBLINGUAL Q5M PRN PRN Reason: Chest Pain Potassium Chloride (Potassium Chloride Er 20 Meq Tab.Er) 40 meq PO DAILY [facility] Last Admin: 07/30/20 08:36 Dose: 40 meq Documented by: Sertraline HCl (Sertraline 50 Mg Tab) 150 mg PO DAILY [facility] Last Admin: 07/30/20 08:36 Dose: 150 mg Documented by: Spironolactone (Spironolactone 25 Mg Tab) 18.75 mg PO DAILY [facility] Last Admin: 07/30/20 08:36 Dose: 18.75 mg Documented by: Tramadol HCl (Tramadol 50 Mg Tab) 50 mg PO TID PRN PRN Reason: Analgesia Last Admin: 07/30/20 18:25 Dose: 50 mg Documented by: Past medical history to include: Atrial fibrillation, coronary artery disease with stent, congestive heart failure EF 30-35%, COPD, DVT, hypertension, hyperlipidemia, chronic kidney disease, obstructive sleep apnea, hypothyroid, peripheral artery disease, chronic kidney disease stage III, kidney stones, DVT in left leg in 2004,: Abscess with bowel resection, multiple abdominal surgeries for hiatal hernia,. Bladder prolonged hospitalization and prolonged medical-related dependent, with a tracheostomy tube, peripheral arterial disease, colonic diverticulosis, iron deficiency anemia,. Diabetes with peripheral neuropathy Social history: Patient is on disability. Patient smoked for about 10 years and stopped in 2008. No alcohol. Patient lives alone. Does have a scooter and a walker Physical examination: VITAL SIGNS: 97.8, 78, 22, 110/77, 96% on 5 L GENERAL: Propped up in bed, less congested cough EYES: Pupils equal. Conjunctiva normal. HEENT: External appearance of nose and ears normal, oral cavity grossly normalNECK: JVD unable to assess; masses not palpable. HEART: Heart sounds irregular; significant edema. LUNGS: Respiratory rate increased; decreased crackles ABDOMEN: Soft, nontender, liver spleen not palpable, no masses palpable, distended, with superficial breakdown of skin, and multiple areas. PSYCH: Alert and oriented x3; mood and affect tired. EXTREMITIES: Pigmentation of the both lower extremity distally INVESTIGATIONS, reviewed in the clinical context: July 30: Potassium 3.3 bun 50 creatinine 2.13 July 29: Potassium 3.5 bun 44 creatinine 2.08 Chest x-ray film personally reviewed by me-bilateral infiltrates White count 4.6 hemoglobin 11.2 platelets 128 potassium 3.7 bun 29 creatinine 1.6 to EKG tracing personally reviewed by me-atrial flutter with a variable rate up to 113 Chest x-ray film personally reviewed by me-venous prominence Previous testin06/26/2020 BUN 41 and creatinine 2.56 2-D echocardiogram-atrial flutter, EF 55 have a 60%, moderate concentric LVH, some wall motion abnormality, moderate mitral regurgitation, moderate pulmonary hypertension Assessment: -Acute on chronic congestive heart exacerbation EF of 50-55% from diastolic dysfunction from underlying coronary artery disease. Patient be started on Lasix drip . Fluid restriction. About 8 L a negative fluid balance. Lasix held today -Possible pneumonia, suspect gram-negative organism. IV cefepime -Persistent atrial flutter fibrillation with ventricular rate uncontrolled. Lopressor 75 mg twice a day. Continue eliquis -Multiple superficial abdominal wall excoriations from scratching, - Dermatotillomania -COPD in an ex-smoker -Chronic DVT chronically on anticoagulation -Hyperlipidemia -Essential hypertension -Chronic kidney disease stage III from diabetic nephropathy and hypertensive nephrosclerosis -Acute kidney injury from digresses, creatinine up from 1.6-2.1 -Obstructive sleep apnea does not use a device -Hypothyroid -Peripheral arterial disease -Multiple abdominal wall hernia from prior surgery -Colonic diverticulosis -Morbid obesity BMI 54.6 -Diabetes mellitus type 2 chronically on insulin. With peripheral neuropathy. Resume Levemir. Follow Accu-Cheks. Additionally: Hold Lasix today. Continue with cefepime. Repeat labs tomorrow. Discussed with the patient.
[2020-07-31 05:57] LABS: Glucose,Whole Blood 76 mg/dL (75-99)
[2020-07-31] MEDS: INSULIN ASPART (NovoLOG) 100 UNIT/ML VIAL SQ SCH ×4 (06:05→21:32)
[2020-07-31] MEDS: buPROPion XL 150 MG TAB.ER.24H PO SCH (07:48)
[2020-07-31] MEDS: SERTRALINE 50 MG TAB PO SCH (07:48)
[2020-07-31] MEDS: CEFEPIME 1 GM in SODIUM CHLORIDE 0.9% 50 ML IVPB SCH ×2 (07:49→21:36)
[2020-07-31] MEDS: APIXABAN 5 MG TAB PO SCH ×2 (07:49→21:31)
[2020-07-31] MEDS: guaiFENesin 600 MG TABLET.ER PO SCH ×4 (07:49→21:31)
[2020-07-31] MEDS: POTASSIUM CHLORIDE ER 20 MEQ TAB.ER PO SCH (07:49)
[2020-07-31] MEDS: FUROSEMIDE 20 MG TAB PO SCH ×2 (07:49→16:51)
[2020-07-31] MEDS: SPIRONOLACTONE 25 MG TAB PO SCH (07:49)
[2020-07-31] MEDS: AMMONIUM LACTATE 12% CREAM 140 GM TUBE TOPICAL SCH ×2 (07:51→21:33)
[2020-07-31] MEDS: METOPROLOL TARTRATE 50 MG TAB PO SCH ×2 (07:55→21:31)
[2020-07-31] MEDS: IPRATROPIUM-ALBUTEROL 3 ML NEB INHALATION SCH ×4 (08:06→20:29)
[2020-07-31 08:28] LABS: Calcium 9.2 mg/dL (8.4-10.2); Potassium 4.6 mmol/L (3.5-5.1)
--- NOTE | 2020-07-31 09:14 | P.NPCON ---
History of Present Illness - Reason for Consult acute renal failure, chronic renal failure - History of Present Illness Reason for consultation: Acute kidney injury on chronic kidney disease History of present illness: Patient is a 50-year-old male seen in renal consultation for acute kidney injury on chronic kidney disease. Patient has chronic kidney disease stage IIIB with baseline creatinine in the range of 1.6-2 secondary to diabetic kidney disease and cardiorenal syndrome. Creatinine was 1.62 admission and is 2.18 today. Patient presented to the hospital with chest discomfort and shortness of breath. Chest x-ray suggestive of congestive heart failure. He denies any fever or chills. No cough. Patient has history of diastolic CHF with moderate mitral regurgitation and pulmonary hypertension. He was maintained on IV Lasix 60 mg IV twice daily and was changed over to oral diuretics starting yesterday. He is also on antibiotics for pneumonia. He admits to good urine output. No hem aturia or dysuria. Denies use of nonsteroidals. He has long-standing history of diabetes mellitus. Hemodynamically stable. No active chest pain or shortness of breath. Currently on 5 L nasal cannula. Vital signs are stable. General: The patient appeared well nourished and normally developed. HEENT: Head exam is unremarkable. Neck is without jugular venous distension. LUNGS: Breath sounds decreased. HEART: Rate and Rhythm are regular. ABDOMEN: Soft, nontender. Obese. EXTREMITITES: 1+ edema. Past Medical History Past Medical History: Atrial Fibrillation, Asthma, Coronary Artery Disease (CAD), Chest Pain / Angina, Heart Failure, COPD, Diabetes Mellitus, Deep Vein Thrombosis (DVT), Hyperlipidemia, Hypertension, Myocardial Infarction ([place]), Renal Disease, Sleep Apnea/CPAP/BIPAP, Thyroid Disorder, Vascular Disorder Additional Past Medical History / Comment(s): CHF, tracheobronchitis, CKD stage III, kidney stones, DVT L leg in 2004, KAMRYN without device use, colon abscess with bowel resection, multiple abdominal surgeries for a hiatal hernia that was complicated by prolonged hospitalization and prolonged ventilator dependent respiratory failure requiring a tracheostomy tube insertion, pvd-lower legs discolored/edematous, diverticular disease, chronic iron deficiency anemia, vertigo at times, Last Myocardial Infarction Date:: History of Any Multi-Drug Resistant Organisms: MRSA Date of last positivie culture/infection: 02/01/15 MDRO Source:: Abdomen Past Surgical History: Bowel Resection, Heart Catheterization With Stent, Hernia Repair Additional Past Surgical History / Comment(s): Colonoscopies, heart stents x 4, bowel resection with colostomy and colostomy reversal (removed a foot of pts colon)-2003, hernia repair with skin grafts and 2 fistula repairs (hospitalized for 1 year @[facility])-2010 MRSA 2014 in wounds. Past Anesthesia/Blood Transfusion Reactions: No Reported Reaction Additional Past Anesthesia/Blood Transfusion Reaction / Comment(s): Pt has received blood in past without reaction-2010 Date of Last Stent Placement:: 03/28/2015 Past Psychological History: Depression Additional Psychological History / Comment(s): PT IS DISABLED. PT LIVES WITH 2 PET CATS AND 1 DOG. HOME HAS A RAMP. USES A CANE CURRENTLY-. Smoking Status: Current every day smoker Past Alcohol Use History: None Reported Additional Past Alcohol Use History / Comment(s): smokes .25 pack a day. Past Drug Use History: None Reported - Past Family History Mother Family Medical History: Osteoarthritis (OA), Pneumonia Additional Family Medical History / Comment(s): osteoporosis. arthroscopy surgery for knee Father Family Medical History: Liver Disease, Renal Disease Additional Family Medical History / Comment(s): triple heart bypass. liver transplant. aortic aneursym Medications and Allergies Home Medications Medication Instructions Recorded Confirmed Type Sertraline [Zoloft] 150 mg PO DAILY 10/19/13 07/26/20 History Atorvastatin [Lipitor] 80 mg PO HS 03/25/15 07/26/20 History Furosemide [Lasix] 60 mg PO TID 11/05/19 07/26/20 History traMADol HCL 50 mg PO BID PRN 11/05/19 07/26/20 History Gabapentin [Neurontin] 300 mg PO HS 11/20/19 07/26/20 History Insulin Detemir [Levemir Flextouch] 50 units SQ HS #0 11/21/19 07/26/20 Rx Ammonium Lactate Cream [Lac-Hydrin 1 inch TOPICAL BID 06/23/20 07/26/20 History 12% Cream] Lactulose [Constulose] 20 gm PO DAILY PRN 06/23/20 07/26/20 History Nitroglycerin Sl Tabs [Nitrostat] 0.4 mg SL Q5M PRN 06/23/20 07/26/20 History Potassium Chloride ER [K-Dur 20] 40 meq PO DAILY 06/23/20 07/26/20 History Spironolactone [Aldactone] 18.75 mg PO DAILY 06/23/20 07/26/20 History Apixaban [Eliquis] 5 mg PO BID #60 tab 06/26/20 07/26/20 Rx Metoprolol Tartrate [Lopressor] 50 mg PO BID #60 tab 06/26/20 07/26/20 Rx buPROPion XL [Wellbutrin Xl] 150 mg PO DAILY 07/26/20 07/26/20 History Allergies Allergy/AdvReac Type Severity Reaction Status Date / Time adhesive Allergy "PLASTIC Verified 07/26/20 18:31 TAPE PEELS SKIN,PAPER TAPE IS OK" linezolid Allergy Unknown Verified 07/26/20 18:31 penicillin G Allergy Rash/Hives Verified 07/26/20 18:31 Cephalosporins AdvReac FEVER Verified 07/26/20 18:31 Physical Exam Vitals: Vital Signs Temp Pulse Pulse Resp BP Pulse Ox 07/31/20 08:17 76 07/31/20 08:06 70 07/31/20 07:57 78 20 07/31/20 07:46 98.1 F 78 20 108/66 97 07/31/20 03:14 98.2 F 61 20 109/83 95 07/31/20 01:54 18 07/30/20 23:05 97.7 F 83 18 103/76 99 07/30/20 20:44 74 07/30/20 20:33 72 07/30/20 19:30 97.8 F 72 24 144/80 97 07/30/20 16:00 97.8 F 78 22 110/77 96 07/30/20 12:51 79 18 07/30/20 12:00 97.9 F 79 18 103/62 96 Intake and Output 07/30/20 07/31/20 07/31/20 22:59 06:59 14:59 Intake Total 540 Output Total 350 300 Balance 190 -300 Intake: Oral 540 Output: Urine 350 300 Other: Voiding Method Urinal Urinal # Voids 2 Weight 158.5 kg Results - Lab Results Most recent lab results Calcium 9.2 mg/dL (8.4-10.2) 07/31/20 06:57 Magnesium 2.1 mg/dL (1.6-2.3) 07/26/20 15:41 07/26/20 15:41 07/31/20 06:57 Assessment and Plan Plan: Assessment: 1. Acute kidney injury mostly prerenal secondary to cardiorenal syndrome. Creatinine 2.18 today. 2. Chronic kidney disease stage IIIB secondary to diabetic kidney disease and cardiorenal syndrome with baseline creatinine in the range of 1.62. 3. Acute on chronic diastolic CHF with moderate mitral regurgitation and pulmonary hypertension. 4. Volume overload. 5. Possible pneumonia maintained on antibiotics. 6. Hypokalemia secondary to diuresis status post replacement. Better. 7. Diabetes mellitus. Plan: Maintain oral Lasix 60 mg twice daily. Low-salt diet. Avoid nephrotoxins. Continue to monitor renal function and urine output. Thank you for the consultation. I will continue to follow the patient with you during his hospital stay.
[2020-07-31 09:37] LABS: Glucose,Whole Blood 80 mg/dL (75-99)
[2020-07-31 11:59] LABS: Glucose,Whole Blood 69 mg/dL (75-99)
[2020-07-31 12:23] LABS: Glucose,Whole Blood 87 mg/dL (75-99)
--- NOTE | 2020-07-31 14:16 | P.PN ---
Subjective Progress Note Date: 07/31/20 This is a 50-year-old gentleman with a past medical history of CHF, hypertension, hyperlipidemia, chronic atrial fibrillation, chronic kidney disease, COPD, nicotine dependence, CAD with prior PCI to the circumflex and LAD, noncompliance. Follows with Dr. JOHNNIE Wood in the office. We are asked to see the patient in consultation for atrial fibrillation with rapid ventricular response as well as CHF. Patient had previously been on a Lasix drip and his sense B been switched to IV push Lasix 60 mg every 12 hours. Labs this morning show worsening renal function with a BUN of 50 and creatinine 2.13. Fluid balance remains negative. Chest x-ray from yesterday shows some worsening congestion and effusion. Patient remains in atrial fibrillation with reasonably well-controlled ventricular response. This morning he complains of worsening dyspnea with cough and congestion. 07/31/20 She was seen and examined resting comfortably in bed eating lunch. Overall seems to be breathing better today. Continues to complain of some dyspnea on exertion and cough. Nephrology has seen the patient and switched him to oral Lasix. He continues on IV antibiotics. After today show mildly worsening of the renal function with a BUN of 56 and creatinine 2.18. Objective - Vital Signs Vital signs: Vital Signs Temp 97.9 F 07/31/20 11:53 Pulse 74 07/31/20 12:00 Resp 18 07/31/20 11:53 BP 96/64 07/31/20 11:53 Pulse Ox 98 07/31/20 11:53 Intake & Output 07/30/20 07/31/20 07/31/20 18:59 06:59 18:59 Intake Total 540 Output Total 800 650 Balance -260 -650 Weight 158.5 kg Intake: Oral 540 Output: Urine 800 650 Other: Voiding Method Urinal # Voids 2 - Exam PHYSICAL EXAMINATION: HEENT: Head is atraumatic, normocephalic. Pupils equal, round. Neck is supple. There is no elevated jugular venous pressure. HEART EXAMINATION: Heart sounds irregular irregular, S1 and S2 normal. No murmur or gallop heard. CHEST EXAMINATION: Lungs reveal coarse wheezing throughout. No chest wall tenderness is noted on palpation or with deep breathing. ABDOMEN: Soft, obese, nontender. Large hernia noted. Skin breakdown noted to areas of scar tissue. Bowel sounds are heard. No organomegaly noted. EXTREMITIES: Mild bilateral lower extremity edema with chronic skin changes noted. NEUROLOGIC patient is awake, alert and oriented x3. . - Labs CBC & Chem 7: 07/26/20 15:41 07/31/20 06:57 Labs: Abnormal Lab Results - Last 24 Hours (Table) 07/30/20 07/30/20 07/30/20 Range/Units 06:58 17:16 20:10 Sodium (137-145) mmol/L Carbon Dioxide (22-30) mmol/L BUN (9-20) mg/dL Creatinine (0.66-1.25) mg/dL Glucose (74-99) mg/dL POC Glucose (mg/dL) 116 H 109 H (75-99) mg/dL Procalcitonin 0.23 H (0.02-0.09) ng/mL 07/31/20 07/31/20 Range/Units 06:57 11:57 Sodium 135 L (137-145) mmol/L Carbon Dioxide 20 L (22-30) mmol/L BUN 56 H (9-20) mg/dL Creatinine 2.18 H (0.66-1.25) mg/dL Glucose 49 L* (74-99) mg/dL POC Glucose (mg/dL) 69 L (75-99) mg/dL Procalcitonin (0.02-0.09) ng/mL Assessment and Plan Assessment: #1 acute exacerbation of chronic diastolic congestive heart failure, EF 55-60% 2 CAD with previous PCI to the circumflex and LAD #3 chronic persistent atrial fibrillation, anticoagulated #4 CKD with acute kidney injury #5 hypertension #6 COPD #7 hyperlipidemia #8 nicotine dependence #9 obstructive sleep apnea #10 morbid obesity Plan: From cardiology's perspective medications were reviewed we will continue the same. Continue to monitor renal function, electrolytes, daily weights and accurate I's and O's. We will continue to follow the patient right further recommendations accordingly. The above dictated assessment and findings were discussed with signing physician. The impression and plan of care have been directed as dictated. Hortencia Senior, Nurse Practitioner, acting as scribe for signing physician.
[2020-07-31 16:42] LABS: Glucose,Whole Blood 110 mg/dL (75-99)
[2020-07-31 20:10] LABS: Glucose,Whole Blood 135 mg/dL (75-99)
--- NOTE | 2020-07-31 21:14 | P.PN ---
Progress Note - Text Progress Note Date: 07/31/20 Chief Complaint: Shortness of breath, edema History of presenting complaint: This is a pleasant 50-year-old patient with extensive medical history. Patient follows with visiting physicians. Dr. Chaney. Chronic stable medical conditions include diabetes with peripheral neuropathy, coronary artery disease with stent, COPD, hypertension, hyperlipidemia, chronic kidney disease, kidney stones,(s) sleep apnea does not use a device, multiple abdominal surgeries for hiatal hernia, also history of tracheostomy, peripheral arterial disease, diverticulosis,. 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 Normally uses a scooter or a walker to get about. Patient has chronic breakdown of superficial skin on the abdominal wall from scratching. Patient now presents to the ER increasing shortness of breath. Minimal cough. Decrease lower extremity edema. No fever no chills. He was having orthopnea. Appetite is okay. He has chronic abdominal wall excoriations. Admitted with CHF exacerbation. Put on Lasix drip. Atrial fibrillation rate uncontrolled. About 8 L in negative fluid balance. [place] to have pneumonia. Started on IV Zosyn. IV Lasix changed to by mouth Lasix. Acute kidney injury- prerenal from diuresis. Today-cough is better. Not bringing up any sputum. Oral intake has been variable. Dose of Levemir cutback. Seen by nephrology. Keep on by mouth Lasix. Review of systems: Was done for constitutional, cardiovascular, GI, pulmonary. relevant finding as above Active Medications Acetaminophen (Acetaminophen Tab 500 Mg Tab) 500 mg PO Q4HR PRN PRN Reason: Fever and/ or Pain Albuterol/Ipratropium (Ipratropium-Albuterol 3 Ml Neb) 3 ml INHALATION RT-QID [facility] Last Admin: 07/31/20 20:29 Dose: 3 ml Documented by: Albuterol/Ipratropium (Ipratropium-Albuterol 3 Ml Neb) 3 ml INHALATION RT-Q1H PRN PRN Reason: Shortness Of Breath Or Wheezing Last Admin: 07/28/20 03:33 Dose: 3 ml Documented by: Apixaban (Apixaban 5 Mg Tab) 5 mg PO BID [facility] Last Admin: 07/31/20 07:49 Dose: 5 mg Documented by: Atorvastatin Calcium (Atorvastatin 80 Mg Tab) 80 mg PO HS [facility] Last Admin: 07/30/20 20:13 Dose: 80 mg Documented by: Benzocaine/Menthol (Benzocaine/Menthol Lozeng 1 Each Lozenge) 1 each MUCOUS MEM Q4HR PRN PRN Reason: Cough Last Admin: 07/28/20 13:51 Dose: 1 each Documented by: Bupropion HCl (Bupropion Xl 150 Mg Tab.Er.24h) 150 mg PO DAILY [facility] Last Admin: 07/31/20 07:48 Dose: 150 mg Documented by: Furosemide (Furosemide 20 Mg Tab) 60 mg PO BID@0900,1600 [facility] Last Admin: 07/31/20 16:51 Dose: 60 mg Documented by: Gabapentin (Gabapentin 300 Mg Cap) 300 mg PO HS [facility] Last Admin: 07/30/20 20:13 Dose: 300 mg Documented by: Guaifenesin (Guaifenesin 600 Mg Tablet.Er) 600 mg PO QID [facility] Last Admin: 07/31/20 16:50 Dose: 600 mg Documented by: Cefepime HCl 1 gm/ Sodium (Chloride) 50 mls @ 12.5 mls/hr IVPB Q12HR [facility] Last Admin: 07/31/20 07:49 Dose: 12.5 mls/hr Documented by: Insulin Aspart (Insulin Aspart (Novolog) 100 Unit/Ml Vial) 0 unit SQ [facility]; Protocol Last Admin: 07/31/20 16:49 Dose: Not Given Documented by: Insulin Detemir (Insulin Detemir (Levemir) 100 Unit/Ml Syr) 36 unit SQ [facility] Lactic Acid (Ammonium Lactate 12% Cream 140 Gm Tube) 1 applic TOPICAL BID [facility] Last Admin: 07/31/20 07:51 Dose: Not Given Documented by: Lactulose (Lactulose 20 Gm/30 Ml Cup) 20 gm PO DAILY PRN PRN Reason: Constipation Metoprolol Tartrate (Metoprolol Tartrate 50 Mg Tab) 100 mg PO BID [facility] Last Admin: 07/31/20 07:55 Dose: 100 mg Documented by: Naloxone HCl (Naloxone 0.4 Mg/Ml 1 Ml Vial) 0.2 mg IV Q2M PRN PRN Reason: Opioid Reversal Nitroglycerin (Nitroglycerin Sl Tabs 0.4 Mg Tab) 0.4 mg SUBLINGUAL Q5M PRN PRN Reason: Chest Pain Potassium Chloride (Potassium Chloride Er 20 Meq Tab.Er) 40 meq PO DAILY [facility] Last Admin: 07/31/20 07:49 Dose: 40 meq Documented by: Sertraline HCl (Sertraline 50 Mg Tab) 150 mg PO DAILY [facility] Last Admin: 07/31/20 07:48 Dose: 150 mg Documented by: Spironolactone (Spironolactone 25 Mg Tab) 18.75 mg PO DAILY [facility] Last Admin: 07/31/20 07:49 Dose: 18.75 mg Documented by: Tramadol HCl (Tramadol 50 Mg Tab) 50 mg PO TID PRN PRN Reason: Analgesia Last Admin: 07/30/20 18:25 Dose: 50 mg Documented by: Past medical history to include: Atrial fibrillation, coronary artery disease with stent, congestive heart failure EF 30-35%, COPD, DVT, hypertension, hyperlipidemia, chronic kidney disease, obstructive sleep apnea, hypothyroid, peripheral artery disease, chronic kidney disease stage III, kidney stones, DVT in left leg in 2004,: Abscess with bowel resection, multiple abdominal surgeries for hiatal hernia,. Bladder prolonged hospitalization and prolonged medical-related dependent, with a tracheostomy tube, peripheral arterial disease, colonic diverticulosis, iron deficiency anemia,. Diabetes with peripheral neuropathy Social history: Patient is on disability. Patient smoked for about 10 years and stopped in 2008. No alcohol. Patient lives alone. Does have a scooter and a walker Physical examination: VITAL SIGNS: 98, 70, 18, 104/79, 96% on 5 L GENERAL: Propped up in bed, tired EYES: Pupils equal. Conjunctiva normal. HEENT: External appearance of nose and ears normal, oral cavity grossly normalNECK: JVD unable to assess; masses not palpable. HEART: Heart sounds irregular; significant edema. LUNGS: Respiratory rate increased; minimal crackles ABDOMEN: Soft, nontender, liver spleen not palpable, no masses palpable, distended, with superficial breakdown of skin, and multiple areas. PSYCH: Alert and oriented x3; mood and affect tired. EXTREMITIES: Pigmentation of the both lower extremity distally INVESTIGATIONS, reviewed in the clinical context: July 31: [id number]-[id number]-60, 69, 87 July 30: Potassium 3.3 bun 50 creatinine 2.13 July 29: Potassium 3.5 bun 44 creatinine 2.08 Chest x-ray film personally reviewed by me-bilateral infiltrates White count 4.6 hemoglobin 11.2 platelets 128 potassium 3.7 bun 29 creatinine 1.6 to EKG tracing personally reviewed by me-atrial flutter with a variable rate up to 113 Chest x-ray film personally reviewed by me-venous prominence Previous testin06/26/2020 BUN 41 and creatinine 2.56 2-D echocardiogram-atrial flutter, EF 55 have a 60%, moderate concentric LVH, some wall motion abnormality, moderate mitral regurgitation, moderate pulmonary hypertension Assessment: -Acute on chronic congestive heart exacerbation EF of 50-55% from diastolic dysfunction from underlying coronary artery disease. started on Lasix drip . Fluid restriction. About 8 L a negative fluid balance. Now on oral Lasix -Possible pneumonia, suspect gram-negative organism. IV cefepime-doing better. -Persistent atrial flutter fibrillation with ventricular rate uncontrolled. Lopressor 75 mg twice a day. Continue eliquis -Multiple superficial abdominal wall excoriations from scratching, - Dermatotillomania -COPD in an ex-smoker -Chronic DVT chronically on anticoagulation -Hyperlipidemia -Essential hypertension -Chronic kidney disease stage III from diabetic nephropathy and hypertensive nephrosclerosis -Acute kidney injury from IV Lasix prerenal, creatinine up from 1.6-2.1 -Obstructive sleep apnea does not use a device -Hypothyroid -Peripheral arterial disease -Multiple abdominal wall hernia from prior surgery -Colonic diverticulosis -Morbid obesity BMI 54.6 -Diabetes mellitus type 2 chronically on insulin. With peripheral neuropathy. Resume Levemir. Follow Accu-Cheks. Additionally: Continue on by mouth Lasix. Swished to oral Vantin tomorrow morning. Repeat labs in the morning. Should be able to be discharged home tomorrow. Discussed with the patient.
[2020-07-31] MEDS: GABAPENTIN 300 MG CAP PO SCH (21:31)
[2020-07-31] MEDS: ATORVASTATIN 80 MG TAB PO SCH (21:31)
[2020-07-31] MEDS: INSULIN DETEMIR (LEVEMIR) 100 UNIT/ML SYR SQ SCH (21:32)
[2020-08-01] MEDS: traMADol 50 MG TAB PO PRN ×2 (02:34→21:01)
[2020-08-01 06:41] LABS: Glucose,Whole Blood 95 mg/dL (75-99)
[2020-08-01] MEDS: INSULIN ASPART (NovoLOG) 100 UNIT/ML VIAL SQ SCH ×4 (06:54→21:02)
[2020-08-01] MEDS: IPRATROPIUM-ALBUTEROL 3 ML NEB INHALATION SCH ×4 (08:32→19:33)
[2020-08-01 09:45] LABS: Calcium 9.1 mg/dL (8.4-10.2); Magnesium 2.3 mg/dL (1.6-2.3)
[2020-08-01 09:56] LABS: Anisocytosis Slight; Basophils # (A) 0.1 k/uL (0-0.2); Basophils % (A) 1 %; Eosinophils # (A) 0.5 k/uL (0-0.7); Eosinophils % (A) 5 %; HCT 38.2 % (39.0-53.0); HGB 11.8 gm/dL (13.0-17.5); Hypochromasia Marked; Lymphocytes # (A) 1.3 k/uL (1.0-4.8); Lymphocytes % (A) 14 %; MCH 28.7 pg (25.0-35.0); MCHC 30.9 g/dL (31.0-37.0); MCV 92.8 fL (80.0-100.0); Mean Platelet Volume 9.6; Monocytes # (A) 1.3 k/uL (0-1.0); Monocytes % (A) 13 %; Neutrophils # (A) 6.3 k/uL (1.3-7.7); Neutrophils % (A) 65 %; Platelet Count 186 k/uL (150-450); Poikilocytosis Slight; RBC 4.11 m/uL (4.30-5.90); RDW 18.7 % (11.5-15.5); WBC 9.6 k/uL (3.8-10.6)
[2020-08-01 09:57] LABS: Potassium 4.2 mmol/L (3.5-5.1)
[2020-08-01] MEDS: SERTRALINE 50 MG TAB PO SCH (09:57)
[2020-08-01] MEDS: FUROSEMIDE 20 MG TAB PO SCH ×2 (09:58→17:32)
[2020-08-01] MEDS: buPROPion XL 150 MG TAB.ER.24H PO SCH (09:58)
[2020-08-01] MEDS: CEFDINIR 300 MG CAP PO SCH ×2 (09:58→21:02)
[2020-08-01] MEDS: METOPROLOL TARTRATE 50 MG TAB PO SCH ×2 (09:58→21:02)
[2020-08-01] MEDS: guaiFENesin 600 MG TABLET.ER PO SCH ×4 (09:58→21:01)
[2020-08-01] MEDS: SPIRONOLACTONE 25 MG TAB PO SCH (09:58)
[2020-08-01] MEDS: APIXABAN 5 MG TAB PO SCH ×2 (09:58→21:01)
[2020-08-01] MEDS: POTASSIUM CHLORIDE ER 20 MEQ TAB.ER PO SCH (09:58)
[2020-08-01] MEDS: AMMONIUM LACTATE 12% CREAM 140 GM TUBE TOPICAL SCH ×2 (09:59→21:04)
--- NOTE | 2020-08-01 11:16 | P.PN ---
Subjective Patient is seen in follow-up for acute kidney injury on chronic kidney disease. Patient has chronic kidney disease stage IIIB with baseline creatinine in the range of 1.6-2 secondary to diabetic kidney disease and cardiorenal syndrome. Renal function slightly worsened with creatinine at 2.35 today. Has been voiding. Maintain on oral Lasix. No chest pain or shortness of breath. Currently on 3 L nasal cannula. Vital signs are stable. General: The patient appeared well nourished and normally developed. HEENT: Head exam is unremarkable. Neck is without jugular venous distension. LUNGS: Breath sounds decreased. HEART: Rate and Rhythm are regular. ABDOMEN: Soft, nontender. Obese. EXTREMITITES: 1+ edema. Chronic skin changes noted. Objective - Vital Signs Vital signs: Vital Signs Temp 98.1 F 08/01/20 08:00 Pulse 92 08/01/20 08:46 Resp 18 08/01/20 08:00 BP 111/74 08/01/20 08:00 Pulse Ox 96 08/01/20 08:00 Intake & Output 07/31/20 08/01/20 08/01/20 18:59 06:59 18:59 Intake Total 240 0 Output Total 820 Balance 240 -820 0 Weight 160.5 kg Intake: Oral 240 0 Output: Urine 820 Other: Voiding Method Urinal - Labs CBC & Chem 7: 08/01/20 08:52 08/01/20 08:52 Labs: Abnormal Lab Results - Last 24 Hours (Table) 07/31/20 07/31/20 07/31/20 Range/Units 11:57 16:41 20:09 RBC (4.30-5.90) m/uL Hgb (13.0-17.5) gm/dL Hct (39.0-53.0) % MCHC (31.0-37.0) g/dL RDW (11.5-15.5) % Sodium (137-145) mmol/L Chloride (98-107) mmol/L BUN (9-20) mg/dL Creatinine (0.66-1.25) mg/dL Glucose (74-99) mg/dL POC Glucose (mg/dL) 69 L 110 H 135 H (75-99) mg/dL 08/01/20 08/01/20 Range/Units 08:52 08:52 RBC 4.11 L (4.30-5.90) m/uL Hgb 11.8 L (13.0-17.5) gm/dL Hct 38.2 L (39.0-53.0) % MCHC 30.9 L (31.0-37.0) g/dL RDW 18.7 H (11.5-15.5) % Sodium 134 L (137-145) mmol/L Chloride 95 L (98-107) mmol/L BUN 60 H (9-20) mg/dL Creatinine 2.35 H (0.66-1.25) mg/dL Glucose 62 L (74-99) mg/dL POC Glucose (mg/dL) (75-99) mg/dL Assessment and Plan Plan: Assessment: 1. Acute kidney injury mostly prerenal secondary to cardiorenal syndrome. Cr eatinine 2.35 today. 2. Chronic kidney disease stage IIIB secondary to diabetic kidney disease and cardiorenal syndrome with baseline creatinine in the range of 1.62. 3. Acute on chronic diastolic CHF with moderate mitral regurgitation and pulmonary hypertension. 4. Volume overload. Improved with diuresis. 5. Possible pneumonia maintained on antibiotics. 6. Hypokalemia secondary to diuresis status post replacement. Better. Maintained on potassium supplementation. 7. Diabetes mellitus. Plan: Maintain oral Lasix 60 mg twice daily. Low-salt diet. Avoid nephrotoxins. Continue to monitor renal function and urine output.
[2020-08-01 12:06] LABS: Glucose,Whole Blood 70 mg/dL (75-99)
--- NOTE | 2020-08-01 12:54 | P.PN ---
Subjective Progress Note Date: 08/01/20 CHIEF COMPLAINT: A. fib with RVR, CHF HISTORY OF PRESENT ILLNESS: 07/27/2020 This is a 50-year-old male with a past medical history significant for congestive heart failure, hypertension, hyperlipidemia, chronic A. fib, chronic kidney disease, COPD, nicotine dependence, and coronary artery disease with previous PCI to circumflex and LAD. Patient follows in the office with Dr. Wood. We have been asked to see the patient in consultation for A. fib with RVR and CHF. Patient examined this morning at the bedside. Patient denies chest pain or pressure. He reports he has been feeling short of breath over the last 2-3 days. He reports increased lower extremity edema. Patient states he has not been compliant with his diet and reports eating a lot of high sodium foods on Saturday for the [employer]. He reports taking all of his medications. Patient was recently hospitalized in June 2020 for congestive heart failure. Echocardiogram completed that time revealed ejection fraction 55-60% with moderate mitral regurgitation. Patient was given a one-time dose of Lasix in the emergency room. He states he is still short of breath this morning. Nereida ent was found to be in atrial flutter with a heart rate in the 110s in the emergency room. He was started on IV amiodarone. 07/28/2020 Patient examined this morning at the bedside. Patient denies chest pain or pressure. He reports shortness of breath today. Patient is complaining of a dry nonproductive cough. Patient appears to be less dyspneic on evaluation today. He has been started on a Lasix drip per internal medicine. Fluid balance over the last 24 hours is -2500 mL. 07/29/2020 Patient examined this morning at the bedside. Patient denies chest pain or pressure. He appears to be slightly more comfortable today. However he continues to complain of shortness of breath and a persistent dry nonproductive cough. He remains on a Lasix drip. Fluid balance over the last 24 hours is -3 L. Creatinine today is 2.08, up from 1.8. Patient's heart rate is in the low 100s. His beta ariella was increased yesterday to 100 mg twice a day. 08/01/2020 Patient examined this morning at the bedside. Patient reports continued shortness of breath. He has been transitioned to oral Lasix 60 mg BID. BUN 60. Creatinine 2.35. Fluid balance over the last 24 hours is -580 mL. Patient reports mild chest discomfort with deep inspiration and also with movement. PHYSICAL EXAM: VITAL SIGNS: Reviewed. GENERAL: Well-developed in no acute distress. HEENT: Head is normocephalic. Pupils are equal, round. Sclerae anicteric. Mucous membranes of the mouth are moist. Neck supple. No JVD or thyromegaly LUNGS: Respirations even and unlabored. Lungs diminished with scattered expiratory wheezing. Dry nonproductive cough noted. HEART: Irregular rate and rhythm. S1 and S2 heard. ABDOMEN: Soft. Nondistended. Nontender. EXTREMITIES: Normal range of motion. No clubbing or cyanosis. Peripheral pulses intact. 2+ bilateral lower extremity edema NEUROLOGIC: Awake and alert. Oriented x 3. ASSESSMENT: Acute exacerbation of chronic diastolic heart failure, EF 55-60% Acute exacerbation of COPD Coronary artery disease with previous PCI to circumflex and LAD Chronic persistent atrial fibrillation, on anticoagulation with Eliquis Hypertension Hyperlipidemia Chronic kidney disease Nicotine dependence, patient smokes 2-3 cigarettes a day Morbid obesity: BMI 54.6 PLAN: Continue current cardiac medications Patient with significant wheezing this morning. May benefit from IV steroids. Will defer to internal medicine. Monitor kidney function Daily weights Accurate I&O Further recommendations pending patient's course Nurse practitioner note has been reviewed by physician. Signing provider agrees with the documented findings, assessment, and plan of care. Objective - Vital Signs Vital signs: Vital Signs Temp 98.1 F 08/01/20 08:00 Pulse 90 08/01/20 12:03 Resp 18 08/01/20 08:00 BP 111/74 08/01/20 08:00 Pulse Ox 96 08/01/20 08:00 Intake & Output 07/31/20 08/01/20 08/01/20 18:59 06:59 18:59 Intake Total 240 0 Output Total 820 Balance 240 -820 0 Weight 160.5 kg Intake: Oral 240 0 Output: Urine 820 Other: Voiding Method Urinal - Labs CBC & Chem 7: 08/01/20 08:52 08/01/20 08:52 Labs: Abnormal Lab Results - Last 24 Hours (Table) 07/31/20 07/31/20 08/01/20 Range/Units 16:41 20:09 08:52 RBC (4.30-5.90) m/uL Hgb (13.0-17.5) gm/dL Hct (39.0-53.0) % MCHC (31.0-37.0) g/dL RDW (11.5-15.5) % Monocytes # (0-1.0) k/uL Sodium 134 L (137-145) mmol/L Chloride 95 L (98-107) mmol/L BUN 60 H (9-20) mg/dL Creatinine 2.35 H (0.66-1.25) mg/dL Glucose 62 L (74-99) mg/dL POC Glucose (mg/dL) 110 H 135 H (75-99) mg/dL 08/01/20 08/01/20 Range/Units 08:52 11:40 RBC 4.11 L (4.30-5.90) m/uL Hgb 11.8 L (13.0-17.5) gm/dL Hct 38.2 L (39.0-53.0) % MCHC 30.9 L (31.0-37.0) g/dL RDW 18.7 H (11.5-15.5) % Monocytes # 1.3 H (0-1.0) k/uL Sodium (137-145) mmol/L Chloride (98-107) mmol/L BUN (9-20) mg/dL Creatinine (0.66-1.25) mg/dL Glucose (74-99) mg/dL POC Glucose (mg/dL) 70 L (75-99) mg/dL
[2020-08-01] MEDS: methylPREDNISolone SOD SUCCI 40 MG/ML 1 ML VIAL IV SCH ×2 (15:06→21:03)
[2020-08-01 16:52] LABS: Glucose,Whole Blood 115 mg/dL (75-99)
[2020-08-01 20:11] LABS: Glucose,Whole Blood 180 mg/dL (75-99)
[2020-08-01] MEDS: ATORVASTATIN 80 MG TAB PO SCH (21:01)
[2020-08-01] MEDS: GABAPENTIN 300 MG CAP PO SCH (21:02)
[2020-08-01] MEDS: INSULIN DETEMIR (LEVEMIR) 100 UNIT/ML SYR SQ SCH (21:03)
--- NOTE | 2020-08-01 21:14 | P.PN ---
Subjective From the records: This is a pleasant 50-year-old patient with extensive medical history. Patient follows with visiting physicians. Dr. Chaney. Chronic stable medical conditions include diabetes with peripheral neuropathy, coronary artery disease with stent, COPD, hypertension, hyperlipidemia, chronic kidney disease, kidney stones,(s) sleep apnea does not use a device, multiple abdominal surgeries for hiatal hernia, also history of tracheostomy, peripheral arterial disease, diverticulosis,. 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 Normally uses a scooter or a walker to get about. Patient has chronic breakdown of superficial skin on the abdominal wall from scratching. Patient now presents to the ER increasing shortness of breath. Minimal cough. Decrease lower extremity edema. No fever no chills. He was having orthopnea. Appetite is okay. He has chronic abdominal wall excoriations. Admitted with CHF exacerbation. Put on Lasix drip. Atrial fibrillation rate uncontrolled. About 8 L in negative fluid balance. [place] to have pneumonia. Started on IV Zosyn. IV Lasix changed to by mouth Lasix. Acute kidney injury- prerenal from diuresis. Today-cough is better. Not bringing up any sputum. Oral intake has been variable. Dose of Levemir cutback. Seen by nephrology. Keep on by mouth Lasix. Subjective: 08/01/2020 This is a pleasant 50 years old male with multiple medical problems. Presents because of and dyspnea of 1-2 days duration and found to have acute diastolic CHF exacerbation with possible pneumonia could not be excluded. He is currently being treated with oral Lasix 60 mg twice daily and. He was on cefepime and switched to Cefdinir . However he still feels a bit dyspneic and uncomfortable, today steroids in the form of solid material has been added, patient has not been diagnosed officially with COPD however he states that he is been told he has COPD when he had surgery at her before the hospital for his hernia repair in 2010, he smokes now occasionally once a week however he has long history of smoking for 20 years and he was smoking much more before but he did not specify, he smokes currently marijuana but denies any other illicit drugs, no alcohol. He is compliant with medication and he'll check his glucose at home yesterday, On examination he has expiratory wheezing And steroids has been added Review of systems CONSTITUTIONAL: No fever, no malaise, no fatigue. HEENT: No recent visual problems or hearing problems. Denied any sore throat. CARDIOVASCULAR: No orthopnea, PND, no palpitations, no syncope. PULMONARY: No chest wall tenderness, no hemoptysis. GASTROINTESTINAL: No diarrhea, no nausea, no vomiting, no abdominal pain. Normoactive bowel sounds. Active Medications Generic Name Dose Route Start Last Admin Trade Name Freq PRN Reason Stop Dose Admin Acetaminophen 500 mg 07/27/20 12:35 Acetaminophen Tab 500 Mg Tab PO Q4HR PRN Fever and/ or Pain Albuterol/Ipratropium 3 ml 07/27/20 12:00 08/01/20 19:33 Ipratropium-Albuterol 3 Ml Neb INHALATION 3 ml RT-QID ZURI Administration Albuterol/Ipratropium 3 ml 07/27/20 08:46 07/28/20 03:33 Ipratropium-Albuterol 3 Ml Neb INHALATION 3 ml RT-Q1H PRN Administration Shortness Of Breath Or Wheezing Apixaban 5 mg 07/27/20 09:00 08/01/20 09:58 Apixaban 5 Mg Tab PO 5 mg BID ZURI Administration Atorvastatin Calcium 80 mg 07/27/20 21:00 07/31/20 21:31 Atorvastatin 80 Mg Tab PO 80 mg HS ZURI Administration Benzocaine/Menthol 1 each 07/28/20 12:38 07/28/20 13:51 Benzocaine/Menthol Lozeng 1 Each Lozenge MUCOUS MEM 1 each Q4HR PRN Administration Cough Bupropion HCl 150 mg 07/27/20 09:00 08/01/20 09:58 Bupropion Xl 150 Mg Tab.Er.24h PO 150 mg DAILY ZURI Administration Cefdinir 300 mg 08/01/20 09:00 08/01/20 09:58 Cefdinir 300 Mg Cap PO 300 mg BID ZURI Administration Furosemide 60 mg 07/31/20 09:00 08/01/20 17:32 Furosemide 20 Mg Tab PO 60 mg BID@0900,1600 ZURI Administration Gabapentin 300 mg 07/27/20 21:00 07/31/20 21:31 Gabapentin 300 Mg Cap PO 300 mg HS ZURI Administration Guaifenesin 600 mg 07/29/20 13:00 08/01/20 17:32 Guaifenesin 600 Mg Tablet.Er PO 600 mg QID ZURI Administration Insulin Aspart 0 unit 07/27/20 07:30 08/01/20 17:06 Insulin Aspart (Novolog) 100 Unit/Ml Vial SQ Not Given ACHS [facility] Protocol Insulin Detemir 36 unit 07/31/20 21:00 07/31/20 21:32 Insulin Detemir (Levemir) 100 Unit/Ml Syr SQ 36 unit HS ZURI Administration Lactic Acid 1 applic 07/27/20 09:00 08/01/20 09:59 Ammonium Lactate 12% Cream 140 Gm Tube TOPICAL 1 applic BID ZURI Administration Lactulose 20 gm 07/27/20 00:56 Lactulose 20 Gm/30 Ml Cup PO DAILY PRN Constipation Methylprednisolone Sodium Succinate 40 mg 08/01/20 13:30 08/01/20 15:06 Methylprednisolone Sod Succi 40 Mg/Ml 1 Ml Vial IV 40 mg Q8H [facility] Administration Metoprolol Tartrate 100 mg 07/28/20 21:00 08/01/20 09:58 Metoprolol Tartrate 50 Mg Tab PO 100 mg BID ZURI Administration Naloxone HCl 0.2 mg 07/26/20 17:53 Naloxone 0.4 Mg/Ml 1 Ml Vial IV Q2M PRN Opioid Reversal Nitroglycerin 0.4 mg 07/27/20 00:56 Nitroglycerin Sl Tabs 0.4 Mg Tab SUBLINGUAL Q5M PRN Chest Pain Potassium Chloride 40 meq 07/27/20 09:00 08/01/20 09:58 Potassium Chloride Er 20 Meq Tab.Er PO 40 meq DAILY ZURI Administration Sertraline HCl 150 mg 07/27/20 09:00 08/01/20 09:57 Sertraline 50 Mg Tab PO 150 mg DAILY ZURI Administration Spironolactone 18.75 mg 07/27/20 09:00 08/01/20 09:58 Spironolactone 25 Mg Tab PO 18.75 mg DAILY [facility] Administration Tramadol HCl 50 mg 07/27/20 19:47 08/01/20 02:34 Tramadol 50 Mg Tab PO 50 mg TID PRN Administration Analgesia Objective - Vital Signs Vital signs: Vital Signs Temp 98.1 F 08/01/20 08:00 Pulse 90 08/01/20 12:03 Resp 18 08/01/20 08:00 BP 111/74 08/01/20 08:00 Pulse Ox 96 08/01/20 08:00 Intake & Output 07/31/20 08/01/20 08/01/20 18:59 06:59 18:59 Intake Total 240 0 Output Total 820 Balance 240 -820 0 Weight 160.5 kg Intake: Oral 240 0 Output: Urine 820 Other: Voiding Method Urinal - Exam -GENERAL: The patient is alert and oriented x3, not in any acute distress. Obese HEENT: Pupils are round and equally reacting to light. EOMI. No scleral icterus. No conjunctival pallor. Normocephalic, atraumatic. No pharyngeal erythema. No thyromegaly. CARDIOVASCULAR: S1 and S2 present. No murmurs, rubs, or gallops. -PULMONARY: Chest is clear to auscultation, bilateral expiratory wheezing -ABDOMEN: Soft, nontender, nondistended, normoactive bowel sounds. No palpable organomegaly. Chronic superficial abdominal wounds about 4 or 5 of them each one about 1-2 inches in diameter mainly in the midline, no surrounding cellulitis MUSCULOSKELETAL: No joint swelling or deformity. -EXTREMITIES: No cyanosis, clubbing, or pedal edema. Second toe ulcer with no surrounding cellulitis NEUROLOGICAL: Gross neurological examination did not reveal any focal deficits. SKIN: No rashes. no petechiae. - Labs CBC & Chem 7: 08/01/20 08:52 08/01/20 08:52 Labs: Abnormal Lab Results - Last 24 Hours (Table) 07/31/20 07/31/20 08/01/20 Range/Units 16:41 20:09 08:52 RBC (4.30-5.90) m/uL Hgb (13.0-17.5) gm/dL Hct (39.0-53.0) % MCHC (31.0-37.0) g/dL RDW (11.5-15.5) % Monocytes # (0-1.0) k/uL Sodium 134 L (137-145) mmol/L Chloride 95 L (98-107) mmol/L BUN 60 H (9-20) mg/dL Creatinine 2.35 H (0.66-1.25) mg/dL Glucose 62 L (74-99) mg/dL POC Glucose (mg/dL) 110 H 135 H (75-99) mg/dL 08/01/20 08/01/20 Range/Units 08:52 11:40 RBC 4.11 L (4.30-5.90) m/uL Hgb 11.8 L (13.0-17.5) gm/dL Hct 38.2 L (39.0-53.0) % MCHC 30.9 L (31.0-37.0) g/dL RDW 18.7 H (11.5-15.5) % Monocytes # 1.3 H (0-1.0) k/uL Sodium (137-145) mmol/L Chloride (98-107) mmol/L BUN (9-20) mg/dL Creatinine (0.66-1.25) mg/dL Glucose (74-99) mg/dL POC Glucose (mg/dL) 70 L (75-99) mg/dL Assessment and Plan Assessment: Acute on chronic diastolic CHF with ejection fraction 55% Acute COPD exacerbation Possible community acquired pneumonia Acute hypoxic respiratory failure secondary to above Acute kidney injury on chronic kidney disease secondary to cardiorenal syndrome Moderate mitral regurgitation History of coronary artery disease status post stent Chronic atrial fibrillation on Eliquis Plan: This is a pleasant 50 years old male who presents with CHF and COPD. Continue with oral Lasix, prednisone Medrol is added. Continue with oxygen as needed. Patient is on oral antibiotics, cardiology and nephrology on the case Labs and medication were reviewed.. Continue same treatment. Continue with symptomatic treatment. Resume home medication. Monitor lytes and vitals. DVT and GI prophylaxis. Further recommendationsas per clinical course of the patient DVT prophylaxis: Subcutaneous Eliquis GI Prophylaxis: Pepcid PT/OT: Pending Prognosis is guarded
[2020-08-01] MEDS: FAMOTIDINE 20 MG/2 ML VIAL IV SCH (23:59)
[2020-08-02] MEDS: methylPREDNISolone SOD SUCCI 40 MG/ML 1 ML VIAL IV SCH (05:24)
[2020-08-02 06:14] LABS: Glucose,Whole Blood 171 mg/dL (75-99)
[2020-08-02] MEDS: INSULIN ASPART (NovoLOG) 100 UNIT/ML VIAL SQ SCH ×4 (06:25→21:02)
[2020-08-02] MEDS: IPRATROPIUM-ALBUTEROL 3 ML NEB INHALATION SCH ×4 (08:31→19:44)
[2020-08-02] MEDS: SPIRONOLACTONE 25 MG TAB PO SCH (08:38)
[2020-08-02] MEDS: SERTRALINE 50 MG TAB PO SCH (08:38)
[2020-08-02] MEDS: buPROPion XL 150 MG TAB.ER.24H PO SCH (08:39)
[2020-08-02] MEDS: POTASSIUM CHLORIDE ER 20 MEQ TAB.ER PO SCH (08:39)
[2020-08-02] MEDS: APIXABAN 5 MG TAB PO SCH ×2 (08:39→21:02)
[2020-08-02] MEDS: FAMOTIDINE 20 MG/2 ML VIAL IV SCH (08:39)
[2020-08-02] MEDS: guaiFENesin 600 MG TABLET.ER PO SCH ×4 (08:39→21:02)
[2020-08-02] MEDS: FUROSEMIDE 20 MG TAB PO SCH ×2 (08:39→17:23)
[2020-08-02] MEDS: METOPROLOL TARTRATE 50 MG TAB PO SCH ×2 (08:39→21:02)
[2020-08-02] MEDS: CEFDINIR 300 MG CAP PO SCH ×2 (08:39→21:02)
[2020-08-02] MEDS: AMMONIUM LACTATE 12% CREAM 140 GM TUBE TOPICAL SCH ×2 (08:40→21:38)
--- NOTE | 2020-08-02 09:35 | CDI ---
Documentation Clarification Form Date: 08/02/2020 09:10:02 AM From: Verenice Bryan RN CCDS Admit Date: 07/27/2020 09:36:00 AM Patient Name: Maximo Cerna Visit Number: [id number] Discharge Date: ATTENTION: The Clinical Documentation Specialists (CDI) and [facility] Coding Staff appreciate your assistance in clarifying documentation. Please respond to the clarification below the line at the bottom and electronically sign. The CDI & [facility] Coding staff will review the response and follow-up if needed. Please note: Queries are made part of the Legal Health Record. If you have any questions, please contact the author of this message via ITS. Dr. Barahona E Sheet Conflicting documentation has been found in the medical record: Possible pneumonia, suspect gram-negative organism. Documented in the Internal medicine progress notes 07/29, 07/30 & 07/31. Possible community acquired pneumonia. Documented in the Internal medicine progress note 08/01 History/Risk Factors:50-year old male presents to the ED with increasing shortness of breath. Medical History: COPD and Diastolic heart failure. Documented in the H&P 07/27 Clinical Indicators: 07/29 VSS: B/P 106/75; HR 91; Temp 98.1 F Oral; RR 22; SpO2 95% nasal cannula 07/26 CXR: Patchy bibasilar densities present, interstitium is increased. 07/29 CXR: Pulmonary venous congestion with scattered infiltrates. Cardiomegaly and small effusions. Treatment: 07/27 DuoNeb 0.5mg 3mg/3ml soln QID ZURI; 07/29 Cefepime 1gm IVPB Q12HR; 08/01 Omnicef 300mg PO BID ZURI; In your opinion, what is the most clinically appropriate diagnosis for this patient? Gram-negative pneumonia ruled in Community acquired pneumonia ruled in Other explanation of clinical findings Unable to determine (no explanation for clinical findings) (Last Revision: September 2017) possibly pt has Gram-negative pneumonia MTDD
[2020-08-02 10:59] VITALS: BMI 55.1
[2020-08-02 11:41] LABS: Glucose,Whole Blood 222 mg/dL (75-99)
[2020-08-02] MEDS ORDERED: guaiFENesin-Coden 100-10MG/5ML 10 ML CUP PO PRN (12:43)
--- NOTE | 2020-08-02 12:45 | P.PN ---
Subjective From the records: This is a pleasant 50-year-old patient with extensive medical history. Patient follows with visiting physicians. Dr. Chaney. Chronic stable medical conditions include diabetes with peripheral neuropathy, coronary artery disease with stent, COPD, hypertension, hyperlipidemia, chronic kidney disease, kidney stones,(s) sleep apnea does not use a device, multiple abdominal surgeries for hiatal hernia, also history of tracheostomy, peripheral arterial disease, diverticulosis,. 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 Normally uses a scooter or a walker to get about. Patient has chronic breakdown of superficial skin on the abdominal wall from scratching. Patient now presents to the ER increasing shortness of breath. Minimal cough. Decrease lower extremity edema. No fever no chills. He was having orthopnea. Appetite is okay. He has chronic abdominal wall excoriations. Admitted with CHF exacerbation. Put on Lasix drip. Atrial fibrillation rate uncontrolled. About 8 L in negative fluid balance. [place] to have pneumonia. Started on IV Zosyn. IV Lasix changed to by mouth Lasix. Acute kidney injury- prerenal from diuresis. Today-cough is better. Not bringing up any sputum. Oral intake has been variable. Dose of Levemir cutback. Seen by nephrology. Keep on by mouth Lasix. Subjective: 08/01/2020 This is a pleasant 50 years old male with multiple medical problems. Presents because of and dyspnea of 1-2 days duration and found to have acute diastolic CHF exacerbation with possible pneumonia could not be excluded. He is currently being treated with oral Lasix 60 mg twice daily and. He was on cefepime and switched to Cefdinir . However he still feels a bit dyspneic and uncomfortable, today steroids in the form of solid material has been added, patient has not been diagnosed officially with COPD however he states that he is been told he has COPD when he had surgery at her before the hospital for his hernia repair in 2010, he smokes now occasionally once a week however he has long history of smoking for 20 years and he was smoking much more before but he did not specify, he smokes currently marijuana but denies any other illicit drugs, no alcohol. He is compliant with medication and he'll check his glucose at home yesterday, On examination he has expiratory wheezing And steroids has been added 08/02/2020 Today patient is still complaining of from shortness of breath more than usual and on examination he has still wheezing although it's somewhat better than yesterday, we will increase his Solu-Medrol to 6 mg every 6 hours. He is saturation at baseline about 100% on 3 L/m oxygen via nasal cannula. At home he was at 4 L/m as he states. Patient Vitas looks stable. Patient Vitas looks stable. Glucose is controlled. Objective - Vital Signs Vital signs: Vital Signs Temp 98.3 F 08/02/20 04:00 Pulse 76 08/02/20 11:47 Resp 18 08/02/20 08:00 BP 98/68 08/02/20 08:00 Pulse Ox 95 08/02/20 08:00 Intake & Output 08/01/20 08/02/20 08/02/20 18:59 06:59 18:59 Intake Total 240 560 Output Total 850 600 Balance -610 -600 560 Weight 155 kg 155 kg Intake: Oral 240 560 Output: Urine 850 600 Other: Voiding Method Urinal Urinal - Exam -GENERAL: The patient is alert and oriented x3, not in any acute distress. Obese HEENT: Pupils are round and equally reacting to light. EOMI. No scleral icterus. No conjunctival pallor. Normocephalic, atraumatic. No pharyngeal erythema. No thyromegaly. CARDIOVASCULAR: S1 and S2 present. No murmurs, rubs, or gallops. -PULMONARY: Chest is clear to auscultation, bilateral expiratory wheezing -ABDOMEN: Soft, nontender, nondistended, normoactive bowel sounds. No palpable o rganomegaly. Chronic superficial abdominal wounds about 4 or 5 of them each one about 1-2 inches in diameter mainly in the midline, no surrounding cellulitis MUSCULOSKELETAL: No joint swelling or deformity. -EXTREMITIES: No cyanosis, clubbing, or pedal edema. Second toe ulcer with no surrounding cellulitis NEUROLOGICAL: Gross neurological examination did not reveal any focal deficits. SKIN: No rashes. no petechiae. - Labs CBC & Chem 7: 08/01/20 08:52 08/01/20 08:52 Labs: Abnormal Lab Results - Last 24 Hours (Table) 07/29/20 07/30/20 08/01/20 Range/Units 07:04 06:58 16:47 POC Glucose (mg/dL) 115 H (75-99) mg/dL Procalcitonin 0.22 H 0.23 H (0.02-0.09) ng/mL 08/01/20 08/02/20 08/02/20 Range/Units 20:09 06:10 11:39 POC Glucose (mg/dL) 180 H 171 H 222 H (75-99) mg/dL Procalcitonin (0.02-0.09) ng/mL Assessment and Plan Assessment: Acute on chronic diastolic CHF with ejection fraction 55% Acute COPD exacerbation Possible community acquired pneumonia Acute hypoxic respiratory failure secondary to above Acute kidney injury on chronic kidney disease secondary to cardiorenal syndrome Moderate mitral regurgitation History of coronary artery disease status post stent Chronic atrial fibrillation on Eliquis Plan: This is a pleasant 50 years old male who presents with CHF and COPD. Continue with oral Lasix, prednisone Medrol is added. Continue with oxygen as needed. Patient is on oral antibiotics, cardiology and nephrology on the case Labs and medication were reviewed.. Continue same treatment. Continue with symptomatic treatment. Resume home medication. Monitor lytes and vitals. DVT and GI prophylaxis. Further recommendationsas per clinical course of the patient DVT prophylaxis: Subcutaneous Eliquis GI Prophylaxis: Pepcid PT/OT: Pending Prognosis is guarded
[2020-08-02] MEDS: methylPREDNISolone SOD SUCCI 125 MG/2 ML VIAL IV SCH ×3 (12:52→23:01)
--- NOTE | 2020-08-02 13:29 | P.PN ---
Subjective Progress Note Date: 08/02/20 CHIEF COMPLAINT: A. fib with RVR, CHF HISTORY OF PRESENT ILLNESS: 07/27/2020 This is a 50-year-old male with a past medical history significant for congestive heart failure, hypertension, hyperlipidemia, chronic A. fib, chronic kidney disease, COPD, nicotine dependence, and coronary artery disease with previous PCI to circumflex and LAD. Patient follows in the office with Dr. Wood. We have been asked to see the patient in consultation for A. fib with RVR and CHF. Patient examined this morning at the bedside. Patient denies chest pain or pressure. He reports he has been feeling short of breath over the last 2-3 days. He reports increased lower extremity edema. Patient states he has not been compliant with his diet and reports eating a lot of high sodium foods on Saturday for the [employer]. He reports taking all of his medications. Patient was recently hospitalized in June 2020 for congestive heart failure. Echocardiogram completed that time revealed ejection fraction 55-60% with moderate mitral regurgitation. Patient was given a one-time dose of Lasix in the emergency room. He states he is still short of breath this morning. Nereida ent was found to be in atrial flutter with a heart rate in the 110s in the emergency room. He was started on IV amiodarone. 07/28/2020 Patient examined this morning at the bedside. Patient denies chest pain or pressure. He reports shortness of breath today. Patient is complaining of a dry nonproductive cough. Patient appears to be less dyspneic on evaluation today. He has been started on a Lasix drip per internal medicine. Fluid balance over the last 24 hours is -2500 mL. 07/29/2020 Patient examined this morning at the bedside. Patient denies chest pain or pressure. He appears to be slightly more comfortable today. However he continues to complain of shortness of breath and a persistent dry nonproductive cough. He remains on a Lasix drip. Fluid balance over the last 24 hours is -3 L. Creatinine today is 2.08, up from 1.8. Patient's heart rate is in the low 100s. His beta ariella was increased yesterday to 100 mg twice a day. 08/01/2020 Patient examined this morning at the bedside. Patient reports continued shortness of breath. He has been transitioned to oral Lasix 60 mg BID. BUN 60. Creatinine 2.35. Fluid balance over the last 24 hours is -580 mL. Patient reports mild chest discomfort with deep inspiration and also with movement. 08/02/2020 Patient examined this morning at the bedside. Patient was started on IV steroids yesterday per internal medicine. His breathing seems to be significantly improved today. He reports he is less dyspneic. He continues to have an occasional cough. He is maintained on oral Lasix. Fluid balance over the last 24 hours is negative 1200cc. PHYSICAL EXAM: VITAL SIGNS: Reviewed. GENERAL: Well-developed in no acute distress. HEENT: Head is normocephalic. Pupils are equal, round. Sclerae anicteric. Mucous membranes of the mouth are moist. Neck supple. No JVD or thyromegaly LUNGS: Respirations even and unlabored. Lungs diminished. HEART: Irregular rate and rhythm. S1 and S2 heard. ABDOMEN: Soft. Nondistended. Nontender. EXTREMITIES: Normal range of motion. No clubbing or cyanosis. Peripheral pulses intact. 1-2+ bilateral lower extremity edema ASSESSMENT: Acute exacerbation of chronic diastolic heart failure, EF 55-60% Acute exacerbation of COPD Coronary artery disease with previous PCI to circumflex and LAD Chronic persistent atrial fibrillation, on anticoagulation with Eliquis Hypertension Hyperlipidemia Chronic kidney disease Nicotine dependence, patient smokes 2-3 cigarettes a day Morbid obesity: BMI 54.6 PLAN: Continue current cardiac medications Continue IV steroids per internal medicine Monitor kidney function Daily weights Accurate I&O Further recommendations pending patient's course Nurse practitioner note has been reviewed by physician. Signing provider agrees with the documented findings, assessment, and plan of care. Objective - Vital Signs Vital signs: Vital Signs Temp 98.3 F 08/02/20 04:00 Pulse 76 08/02/20 11:47 Resp 18 08/02/20 08:00 BP 98/68 08/02/20 08:00 Pulse Ox 95 08/02/20 08:00 Intake & Output 08/01/20 08/02/20 08/02/20 18:59 06:59 18:59 Intake Total 240 560 Output Total 850 600 Balance -610 -600 560 Weight 155 kg 155 kg Intake: Oral 240 560 Output: Urine 850 600 Other: Voiding Method Urinal Urinal - Labs CBC & Chem 7: 08/01/20 08:52 08/01/20 08:52 Labs: Abnormal Lab Results - Last 24 Hours (Table) 07/29/20 07/30/20 08/01/20 Range/Units 07:04 06:58 16:47 POC Glucose (mg/dL) 115 H (75-99) mg/dL Procalcitonin 0.22 H 0.23 H (0.02-0.09) ng/mL 08/01/20 08/02/20 08/02/20 Range/Units 20:09 06:10 11:39 POC Glucose (mg/dL) 180 H 171 H 222 H (75-99) mg/dL Procalcitonin (0.02-0.09) ng/mL
--- NOTE | 2020-08-02 13:42 | P.PN ---
Subjective Patient is seen in follow-up for acute kidney injury on chronic kidney disease. Patient has chronic kidney disease stage IIIB with baseline creatinine in the range of 1.6-2 secondary to diabetic kidney disease and cardiorenal syndrome. No labs today. Creatinine 2.35 as of yesterday. Has been voiding. Maintain on oral Lasix. No chest pain or shortness of breath. Vital signs are stable. General: The patient appeared well nourished and normally developed. HEENT: Head exam is unremarkable. Neck is without jugular venous distension. LUNGS: Breath sounds decreased. HEART: Rate and Rhythm are regular. ABDOMEN: Soft, nontender. Obese. EXTREMITITES: 1+ edema. Chronic skin changes noted. Objective - Vital Signs Vital signs: Vital Signs Temp 98.3 F 08/02/20 04:00 Pulse 76 08/02/20 11:47 Resp 18 08/02/20 08:00 BP 98/68 08/02/20 08:00 Pulse Ox 95 08/02/20 08:00 Intake & Output 08/01/20 08/02/20 08/02/20 18:59 06:59 18:59 Intake Total 240 560 Output Total 850 600 Balance -610 -600 560 Weight 155 kg 155 kg Intake: Oral 240 560 Output: Urine 850 600 Other: Voiding Method Urinal Urinal - Labs CBC & Chem 7: 08/01/20 08:52 08/01/20 08:52 Labs: Abnormal Lab Results - Last 24 Hours (Table) 07/29/20 07/30/20 08/01/20 Range/Units 07:04 06:58 16:47 POC Glucose (mg/dL) 115 H (75-99) mg/dL Procalcitonin 0.22 H 0.23 H (0.02-0.09) ng/mL 08/01/20 08/02/20 08/02/20 Range/Units 20:09 06:10 11:39 POC Glucose (mg/dL) 180 H 171 H 222 H (75-99) mg/dL Procalcitonin (0.02-0.09) ng/mL Assessment and Plan Plan: Assessment: 1. Acute kidney injury mostly prerenal secondary to cardiorenal syndrome. Creatinine 2.35 as of yesterday. 2. Chronic kidney disease stage IIIB secondary to diabetic kidney disease and cardiorenal syndrome with baseline creatinine in the range of 1.62. 3. Acute on chronic diastolic CHF with moderate mitral regurgitation and pulmonary hypertension. 4. Volume overload. Improved with diuresis. 5. Possible pneumonia on antibiotics. 6. Hypokalemia secondary to diuresis status post replacement. Better. Main tained on potassium supplementation. 7. Diabetes mellitus. Plan: Maintain oral Lasix 60 mg twice daily. Low-salt diet. Avoid nephrotoxins. Continue to monitor renal function and urine output. Repeat electrolytes in the morning.
[2020-08-02 17:08] LABS: Glucose,Whole Blood 192 mg/dL (75-99)
[2020-08-02 20:54] LABS: Glucose,Whole Blood 207 mg/dL (75-99)
[2020-08-02] MEDS: GABAPENTIN 300 MG CAP PO SCH (21:02)
[2020-08-02] MEDS: INSULIN DETEMIR (LEVEMIR) 100 UNIT/ML SYR SQ SCH (21:02)
[2020-08-02] MEDS: ATORVASTATIN 80 MG TAB PO SCH (21:02)
[2020-08-02] MEDS: traMADol 50 MG TAB PO PRN (21:05)
[2020-08-02] MEDS ORDERED: LEVOFLOXACIN 500MG-D5W PMX 500 MG in DEXTROSE/WATER 1 100ML.BAG IVPB SCH (23:00)
[2020-08-03 06:03] LABS: Glucose,Whole Blood 146 mg/dL (75-99)
[2020-08-03 06:35] VITALS: RESP 16
[2020-08-03] MEDS: INSULIN ASPART (NovoLOG) 100 UNIT/ML VIAL SQ SCH ×2 (06:41→13:05)
[2020-08-03] MEDS: methylPREDNISolone SOD SUCCI 125 MG/2 ML VIAL IV SCH ×2 (06:41→13:04)
[2020-08-03] MEDS: IPRATROPIUM-ALBUTEROL 3 ML NEB INHALATION SCH ×3 (07:08→15:59)
[2020-08-03] MEDS: FUROSEMIDE 20 MG TAB PO SCH (08:26)
[2020-08-03] MEDS: POTASSIUM CHLORIDE ER 20 MEQ TAB.ER PO SCH (08:26)
[2020-08-03] MEDS: APIXABAN 5 MG TAB PO SCH (08:26)
[2020-08-03] MEDS: SPIRONOLACTONE 25 MG TAB PO SCH (08:26)
[2020-08-03] MEDS: guaiFENesin 600 MG TABLET.ER PO SCH ×2 (08:27→13:04)
[2020-08-03] MEDS: METOPROLOL TARTRATE 50 MG TAB PO SCH (08:27)
[2020-08-03] MEDS: SERTRALINE 50 MG TAB PO SCH (08:27)
--- NOTE | 2020-08-03 08:27 | XR ---
EXAMINATION TYPE: XR chest 1V DATE OF EXAM: 08/03/2020 COMPARISON: 07/29/2020 HISTORY: Chest pain TECHNIQUE: Single frontal view of the chest is obtained. FINDINGS: There is improving right lower lobe infiltrate. The cardiac silhouette size is within normal limits. The osseous structures are intact. IMPRESSION: 1. There is improving right lower lobe infiltrate.
[2020-08-03] MEDS: buPROPion XL 150 MG TAB.ER.24H PO SCH (08:28)
[2020-08-03] MEDS: AMMONIUM LACTATE 12% CREAM 140 GM TUBE TOPICAL SCH (08:28)
[2020-08-03 08:39] LABS: Calcium 9.5 mg/dL (8.4-10.2); Potassium 4.2 mmol/L (3.5-5.1)
[2020-08-03] MEDS ORDERED: FAMOTIDINE 20 MG TAB PO SCH (09:00)
[2020-08-03 09:31] VITALS: TEMP 98.2
--- NOTE | 2020-08-03 09:39 | P.PN ---
Subjective Patient is seen in follow-up for acute kidney injury on chronic kidney disease. Patient has chronic kidney disease stage IIIB with baseline creatinine in the range of 1.6-2 secondary to diabetic kidney disease and cardiorenal syndrome. Creatinine 2.5 today. Good urine output. Oral intake fair. No chest pain or shortness of breath. Currently on 4 L nasal cannula. Vital signs are stable. General: The patient appeared well nourished and normally developed. HEENT: Head exam is unremarkable. Neck is without jugular venous distension. LUNGS: Breath sounds decreased. HEART: Rate and Rhythm are regular. ABDOMEN: Soft, nontender. Obese. EXTREMITITES: 1+ edema. Chronic skin changes noted. Objective - Vital Signs Vital signs: Vital Signs Temp 98.2 F 08/03/20 08:00 Pulse 90 08/03/20 08:00 Resp 16 08/03/20 08:00 BP 110/74 08/03/20 08:00 Pulse Ox 97 08/03/20 08:00 Intake & Output 08/02/20 08/03/20 08/03/20 18:59 06:59 18:59 Intake Total 1660 472 Output Total 300 300 550 Balance 1360 -300 -78 Weight 155 kg 158 kg Intake: Oral 1660 472 Output: Urine 300 300 550 Other: Voiding Method Urinal Urinal Urinal # Voids 0 # Bowel Movements 0 - Labs CBC & Chem 7: 08/01/20 08:52 08/03/20 07:17 Labs: Abnormal Lab Results - Last 24 Hours (Table) 07/29/20 07/30/20 08/02/20 Range/Units 07:04 06:58 08:21 Sodium (137-145) mmol/L BUN (9-20) mg/dL Creatinine (0.66-1.25) mg/dL Glucose (74-99) mg/dL POC Glucose (mg/dL) (75-99) mg/dL Procalcitonin 0.22 H 0.23 H 0.36 H (0.02-0.09) ng/mL 08/02/20 08/02/20 08/02/20 Range/Units 11:39 17:06 20:49 Sodium (137-145) mmol/L BUN (9-20) mg/dL Creatinine (0.66-1.25) mg/dL Glucose (74-99) mg/dL POC Glucose (mg/dL) 222 H 192 H 207 H (75-99) mg/dL Procalcitonin (0.02-0.09) ng/mL 08/03/20 08/03/20 Range/Units 05:52 07:17 Sodium 134 L (137-145) mmol/L BUN 72 H (9-20) mg/dL Creatinine 2.58 H (0.66-1.25) mg/dL Glucose 136 H (74-99) mg/dL POC Glucose (mg/dL) 146 H (75-99) mg/dL Procalcitonin (0.02-0.09) ng/mL Assessment and Plan Plan: Assessment: 1. Acute kidney injury mostly prerenal secondary to cardiorenal syndrome. Renal function slightly worse from diuresis. Creatinine 2.58. Monitor. 2. Chronic kidney disease stage IIIB secondary to diabetic kidney disease and cardiorenal syndrome with baseline creatinine in the range of 1.6-2. 3. Acute on chronic diastolic CHF with moderate mitral regurgitation and pulmonary hypertension. 4. Volume overload. Improved with diuresis. 5. Possible pneumonia on antibiotics. 6. Hypokalemia secondary to diuresis status post replacement. Better. Maintained on potassium supplementation. 7. Diabetes mellitus. Plan: Maintain oral Lasix 60 mg twice daily. Low-salt diet. Avoid nephrotoxins. Continue to monitor renal function and urine output. Repeat electrolytes in the morning.
[2020-08-03 11:42] LABS: Glucose,Whole Blood 162 mg/dL (75-99)
[2020-08-03] MEDS ORDERED: CEFDINIR 300 MG CAP PO SCH (12:30)
--- NOTE | 2020-08-03 13:20 | P.PN ---
Subjective Progress Note Date: 08/03/20 Principal diagnosis: Shortness of breath This is unfortunate 50-year-old gentleman with coronary artery disease and prior stenting of the LAD and LCx as well as chronic diastolic congestive heart failure as well as chronic obstructive pulmonary disease and also permanent atrial fibrillation who was admitted to the hospital again with increasing shortness of breath with exertion which is multifactorial and related to heart failure and COPD and obesity and also atrial fibrillation. He was seen today but he stated that the shortness of breath has improved. The fatty the wheezing has improved significantly on examination. He denies any symptoms of chest pain or chest discomfort or dizziness or lightheadedness or any feeling of heart racing or fluttering. Hemodynamically he is stable. He is on Lasix by mouth. From a cardiovascular standpoint of view, the patient pos sibly can be discharged in the next 24 hours. Objective - Vital Signs Vital signs: Vital Signs Temp 98.2 F 08/03/20 08:00 Pulse 84 08/03/20 11:00 Resp 16 08/03/20 08:00 BP 110/74 08/03/20 08:00 Pulse Ox 97 08/03/20 08:00 Intake & Output 08/02/20 08/03/20 08/03/20 18:59 06:59 18:59 Intake Total 1660 472 Output Total 533 898 0973 Balance 1360 -300 -1053 Weight 155 kg 158 kg Intake: Oral 1660 472 Output: Urine 968 045 7224 Other: Voiding Method Urinal Urinal Urinal # Voids 0 # Bowel Movements 0 - Constitutional General appearance: Present: no acute distress - Respiratory Respiratory: bilateral: diminished - Cardiovascular Rhythm: irregularly irregular Heart sounds: normal: S1, S2 - Labs CBC & Chem 7: 08/01/20 08:52 08/03/20 07:17 Labs: Abnormal Lab Results - Last 24 Hours (Table) 08/02/20 08/02/20 08/02/20 Range/Units 08:21 17:06 20:49 Sodium (137-145) mmol/L BUN (9-20) mg/dL Creatinine (0.66-1.25) mg/dL Glucose (74-99) mg/dL POC Glucose (mg/dL) 192 H 207 H (75-99) mg/dL Procalcitonin 0.36 H (0.02-0.09) ng/mL 08/03/20 08/03/20 08/03/20 Range/Units 05:52 07:17 11:40 Sodium 134 L (137-145) mmol/L BUN 72 H (9-20) mg/dL Creatinine 2.58 H (0.66-1.25) mg/dL Glucose 136 H (74-99) mg/dL POC Glucose (mg/dL) 146 H 162 H (75-99) mg/dL Procalcitonin (0.02-0.09) ng/mL Assessment and Plan Assessment: Assessment #1 shortness of breath multifactorial as described above #2 heart failure with preserved ejection fraction exacerbation #3 chronic obstructive pulmonary disease exacerbation #4 permanent atrial fibrillation was controlled heart rate #5 coronary artery disease and prior revascularization #6 multiple comorbid conditions including obesity Plan #1 continue the current medical regimen #2 continue Lasix by mouth #3 possible discharge in the next 24 hours
[2020-08-03 14:09] VITALS: BP 106/78
--- NOTE | 2020-08-03 14:23 | P.DS ---
Providers Date of admission: 07/27/20 09:36 Attending physician: Vamshi Barrera Consults: 07/27/20 00:58 Consult Physician Routine Consulting Provider: Alvin Wood Consult Reason/Comments: A.Fib RVR; CHF Do you want consulting provider notified?: Yes, Notify in am 07/30/20 12:49 Consult Physician Routine Consulting Provider: Hector Turcios Consult Reason/Comments: worsening renal function Do you want consulting provider notified?: Yes Primary care physician: Eleazar Bhatt Hospital Course: Diagnoses: Acute on chronic diastolic CHF with ejection fraction 55% Acute COPD exacerbation Possible community acquired pneumonia Acute hypoxic respiratory failure secondary to above Chronic hypoxic respiratory failure, on 4 L oxygen at home Acute kidney injury on chronic kidney disease secondary to cardiorenal syndrome Moderate mitral regurgitation History of coronary artery disease status post stent Chronic atrial fibrillation on Eliquis Morbid obesity with BMI of 56.2 Hospital course: This is a pleasant 50 years old male with multiple medical problems. Presents because of and dyspnea of 1-2 days duration and found to have acute diastolic CHF exacerbation with possible pneumonia. His been evaluated by fermentologist and linseed oil temperer, and he was treated with Lasix currently he is on Lasix 60 mg by mouth twice daily compared to 3 times a day at home. Also he is been treated with cefdinir and repeat chest x-ray today showing improvement pneumonia. Patient also was wheezing and he was short of breath 2 days ago and he was placed on Solu-Medrol, his breathing is back to his baseline and he is currently on 3-4 L oxygen via nasal cannula which is his baseline. patient has not been diagnosed officially with COPD however he states that he is been told he has COPD when he had surgery at her before the hospital for his hernia repair in 2010, he smokes now occasionally once a week however he has long history of smoking for 20 years and he was smoking much more before but he did not specify on the day of discharge patient denies chest pain, no significant dyspnea which is improving, no Streabdominal pain, no change in urine or bowel habits. No feverss. Patient also was trending up secondary to Lasix with linseed oil temperer for on the adult protective caseworker him closely. Creatinine on admission 1.6, currently 2.5 Patient was cleared for discharge by fermentologist and linseed oil temperer Patient will be discharged on tapering steroids, short course of oral antibiotics of cefdinir. Problems and management plan were discussed with the patient and he verbalized understanding and acceptance Patient was found stable and can be discharged home however he needs follow-up as an outpatient. Patient was instructed to follow up with PCP within one week and patient agrees Patient was instructed to follow up with Dr. Kwok fermentologist in 2 week, Dr. Nova voice data communications engineer in 2-[address] Mendez linseed oil temperer in 1-2 weeks Physical exam Gen.: a AAOx3, no distress. Morbidly obese CVS: S1-S2, RRR, no murmur Lungs: B/L CTA, no wheezing. Abdomen: soft, no distention, no tenderness, positive bowel sounds Extremity: no leg edema or induration Time spent more than 35 minutes Patient Condition at Discharge: Serious Plan - Discharge Summary Discharge Rx Participant: No New Discharge Prescriptions: New Furosemide [Lasix] 60 mg PO BID@0900,1600 #180 tab Insulin Detemir (Levemir) [Levemir] 36 unit SQ HS syr Cefdinir [Omnicef] 300 mg PO BID 7 Days #14 cap Famotidine [Pepcid] 20 mg PO DAILY #60 tab predniSONE 10 mg PO DIRECTED #18 tab Albuterol Inhaler [Ventolin Hfa Inhaler] 1 puff INHALATION Q6HR PRN #1 inh PRN Reason: Shortness Of Breath Or Wheezing Continue Sertraline [Zoloft] 150 mg PO DAILY Atorvastatin [Lipitor] 80 mg PO HS Ammonium Lactate Cream [Lac-Hydrin 12% Cream] 1 inch TOPICAL BID Lactulose [Constulose] 20 gm PO DAILY PRN PRN Reason: Constipation Nitroglycerin Sl Tabs [Nitrostat] 0.4 mg SL Q5M PRN PRN Reason: Chest Pain Potassium Chloride ER [K-Dur 20] 40 meq PO DAILY Spironolactone [Aldactone] 18.75 mg PO DAILY Apixaban [Eliquis] 5 mg PO BID #60 tab Metoprolol Tartrate [Lopressor] 50 mg PO BID #60 tab buPROPion XL [Wellbutrin XL] 150 mg PO DAILY traMADol HCL 50 mg PO BID PRN #4 tab PRN Reason: Pain Gabapentin [Neurontin] 300 mg PO HS #10 cap Discontinued Furosemide [Lasix] 60 mg PO TID Insulin Detemir [Levemir Flextouch] 50 units SQ HS #0 Discharge Medication List Sertraline [Zoloft] 150 mg PO DAILY 10/19/13 [History] Atorvastatin [Lipitor] 80 mg PO HS 03/25/15 [History] Ammonium Lactate Cream [Lac-Hydrin 12% Cream] 1 inch TOPICAL BID 06/23/20 [History] Lactulose [Constulose] 20 gm PO DAILY PRN 06/23/20 [History] Nitroglycerin Sl Tabs [Nitrostat] 0.4 mg SL Q5M PRN 06/23/20 [History] Potassium Chloride ER [K-Dur 20] 40 meq PO DAILY 06/23/20 [History] Spironolactone [Aldactone] 18.75 mg PO DAILY 06/23/20 [History] Apixaban [Eliquis] 5 mg PO BID #60 tab 06/26/20 [Rx] Metoprolol Tartrate [Lopressor] 50 mg PO BID #60 tab 06/26/20 [Rx] buPROPion XL [Wellbutrin XL] 150 mg PO DAILY 07/26/20 [History] Albuterol Inhaler [Ventolin Hfa Inhaler] 1 puff INHALATION Q6HR PRN #1 inh 08/03/20 [Rx] Cefdinir [Omnicef] 300 mg PO BID 7 Days #14 cap 08/03/20 [Rx] Famotidine [Pepcid] 20 mg PO DAILY #60 tab 08/03/20 [Rx] Furosemide [Lasix] 60 mg PO BID@0900,1600 #180 tab 08/03/20 [Rx] Gabapentin [Neurontin] 300 mg PO HS #10 cap 08/03/20 [Rx] Insulin Detemir (Levemir) [Levemir] 36 unit SQ HS syr 08/03/20 [Rx] predniSONE 10 mg PO DIRECTED #18 tab 08/03/20 [Rx] traMADol HCL 50 mg PO BID PRN #4 tab 08/03/20 [Rx] Follow up Appointment(s)/Referral(s): Erica Mallory [NON-STAFF] - Eleazar Bhatt MD [Primary Care Provider] - 1-2 days Rodri Nova MD [STAFF PHYSICIAN] - 1 Week (voice data communications engineer ) David Hart MD [STAFF PHYSICIAN] - 2 Weeks (fermentologist ) Activity/Diet/Wound Care/Special Instructions: heart healthy diet activity is restricted till you see your doctor Discharge Disposition: HOME WITH HOME HEALTH SERVICES
[2020-08-03 16:03] VITALS: PULSE 85
--- NOTE | 2020-08-05 09:16 | CDI ---
Documentation Clarification Form Date: 08/05/20 From: Dolly Mendez Phone: If you have a question about this query, please contact Janae Andre, Food Writer at [phone] between 8am and 5pm. Admit Date: 07/27/2020 09:36:00 AM Patient Name: Maximo Cerna Visit Number: [id number] Discharge Date: 08/03/2020 04:34:00 PM ATTENTION: The Clinical Documentation Specialists (CDI) and [facility] Coding Staff appreciate your assistance in clarifying documentation. Please respond to the clarification below the line at the bottom and electronically sign. The CDI & [facility] Coding staff will review the response and follow-up if needed. Please note: Queries are made part of the Legal Health Record. If you have any questions, please contact the author of this message via ITS. Dr. Jose Luis Walls, Atrial Flutter is documented in your consult and PNs. History/Risk factors: HTN w acute & chronic diastolic CHF & CKD IIIb, morbid obesity w BMI 56.2, RAYSA, permanent a fib Clinical Indicators: Patient found to be in atrial flutter with a heart rate in the 110s in the ED. EKG/telemetry: Atrial flutter with variable AV block w premature aberrantly conducted complexes Treatment: Eliquis In your professional opinion, in order to capture the severity of condition; can you please clarify the type of Atrial Flutter if known? Typical/Type I Atypical/Type II Other, please specify Unable to determine type2 MTDD
== END 2020-08-03 16:34 | DRG 291 ==
LOC: EC 15:26 → 6NMEDSUR 17:53 → 3SCARD 20:58 → OBSVTOIN 07-27 09:36
PROVIDERS: ADMIT Hospitalist; ATTEND Hospitalist
DX: I13.0 Hypertensive heart and chronic kidney disease with heart failure and stage 1 through stage 4 chronic kidney disease, or unspecified chronic kidney disease (principal); I50.33 Acute on chronic diastolic (congestive) heart failure; J15.6 Pneumonia due to other Gram-negative bacteria; J96.21 Acute and chronic respiratory failure with hypoxia; J44.1 Chronic obstructive pulmonary disease with (acute) exacerbation; J44.0 Chronic obstructive pulmonary disease with (acute) lower respiratory infection; I48.21 Permanent atrial fibrillation; Z68.43 Body mass index [BMI] 50.0-59.9, adult; N17.9 Acute kidney failure, unspecified; I48.4 Atypical atrial flutter; I27.20 Pulmonary hypertension, unspecified; L97.522 Non-pressure chronic ulcer of other part of left foot with fat layer exposed; E11.22 Type 2 diabetes mellitus with diabetic chronic kidney disease; E11.42 Type 2 diabetes mellitus with diabetic polyneuropathy; E11.51 Type 2 diabetes mellitus with diabetic peripheral angiopathy without gangrene; E11.622 Type 2 diabetes mellitus with other skin ulcer; E11.621 Type 2 diabetes mellitus with foot ulcer; E66.01 Morbid (severe) obesity due to excess calories; L98.492 Non-pressure chronic ulcer of skin of other sites with fat layer exposed; N18.32 Chronic kidney disease, stage 3b; Z79.4 Long term (current) use of insulin; Z20.822 Contact with and (suspected) exposure to COVID-19; Z79.01 Long term (current) use of anticoagulants; Z99.81 Dependence on supplemental oxygen; I34.0 Nonrheumatic mitral (valve) insufficiency; E87.6 Hypokalemia; F17.210 Nicotine dependence, cigarettes, uncomplicated; I25.10 Atherosclerotic heart disease of native coronary artery without angina pectoris; T50.1X5A Adverse effect of loop [high-ceiling] diuretics, initial encounter; D50.9 Iron deficiency anemia, unspecified; E03.9 Hypothyroidism, unspecified; E78.5 Hyperlipidemia, unspecified; G47.33 Obstructive sleep apnea (adult) (pediatric); F32.9 Major depressive disorder, single episode, unspecified; K57.30 Diverticulosis of large intestine without perforation or abscess without bleeding; I25.2 Old myocardial infarction; Z91.19 Patient's noncompliance with other medical treatment and regimen; Z79.891 Long term (current) use of opiate analgesic; Z79.899 Other long term (current) drug therapy; Z86.718 Personal history of other venous thrombosis and embolism; Z86.14 Personal history of Methicillin resistant Staphylococcus aureus infection; Z87.442 Personal history of urinary calculi; Z87.11 Personal history of peptic ulcer disease; Z95.5 Presence of coronary angioplasty implant and graft; Z71.3 Dietary counseling and surveillance; Z98.890 Other specified postprocedural states; Z88.1 Allergy status to other antibiotic agents; Z88.0 Allergy status to penicillin; Z91.048 Other nonmedicinal substance allergy status; Z82.61 Family history of arthritis; Z83.6 Family history of other diseases of the respiratory system; Z82.62 Family history of osteoporosis; Z83.79 Family history of other diseases of the digestive system; Z82.49 Family history of ischemic heart disease and other diseases of the circulatory system
CPT/HCPCS: 36415; 71045; 80048; 80053; 83605; 83735; 83880; 84145; 84484; 85025; 85610; 87635; 93005; 94640; 94760; 96365; 96366; 96375; 96376; 99285

== ENCOUNTER 2020-08-07 15:10 | Inpatient (IN) | payer MEDICARE, OTHER ==
--- NOTE | 2020-08-07 15:27 | ED ---
General Adult HPI - General Chief complaint: Chest Pain Stated complaint: Chest Pain Time Seen by Provider: 08/07/20 15:12 Source: patient, EMS Mode of arrival: EMS Limitations: no limitations - History of Present Illness Initial comments: Patient presents to the ED by ambulance for evaluation. Patient states that he developed left-sided chest pain radiating to his right arm about one and a half hours ago while laying in bed. Patient states that his symptoms lasted for about 20-30 minutes before resolving. Patient states that his symptoms improved after he was given aspirin and nitroglycerin by EMS. Patient states that he had associated rapid heart palpitations and dyspnea with his chest pain. Patient admits to having a chronic and unchanged cough, and he states that he is on 2 L of home O2 regularly. Patient has a history of atrial fibrillation for which he is treated with Eliquis anticoagulation. Patient also states that he has 4 ca rdiac stents. Patient denies trauma or injury, fever or chills, headache, focal numbness/weakness/neuro deficit, neck/jaw/back pain, pleuritic pain, hemoptysis, dizziness or syncope, nausea/vomiting/diaphoresis, abdominal pain, bloody or melanotic stool, dysuria or urinary symptoms, decreased urine output, leg or calf swelling or pain, or any other symptoms or complaints. - Related Data Home Medications Medication Instructions Recorded Confirmed Sertraline [Zoloft] 150 mg PO DAILY 10/19/13 07/26/20 Atorvastatin [Lipitor] 80 mg PO HS 03/25/15 07/26/20 Ammonium Lactate Cream [Lac-Hydrin 1 inch TOPICAL BID 06/23/20 07/26/20 12% Cream] Lactulose [Constulose] 20 gm PO DAILY PRN 06/23/20 07/26/20 Nitroglycerin Sl Tabs [Nitrostat] 0.4 mg SL Q5M PRN 06/23/20 07/26/20 Potassium Chloride ER [K-Dur 20] 40 meq PO DAILY 06/23/20 07/26/20 Spironolactone [Aldactone] 18.75 mg PO DAILY 06/23/20 07/26/20 buPROPion XL [Wellbutrin XL] 150 mg PO DAILY 07/26/20 07/26/20 Previous Rx's Medication Instructions Recorded Apixaban [Eliquis] 5 mg PO BID #60 tab 06/26/20 Metoprolol Tartrate [Lopressor] 50 mg PO BID #60 tab 06/26/20 Albuterol Inhaler [Ventolin Hfa 1 puff INHALATION Q6HR PRN #1 inh 08/03/20 Inhaler] Cefdinir [Omnicef] 300 mg PO BID 7 Days #14 cap 08/03/20 Famotidine [Pepcid] 20 mg PO DAILY #60 tab 08/03/20 Furosemide [Lasix] 60 mg PO BID@0900,1600 #180 tab 08/03/20 Gabapentin [Neurontin] 300 mg PO HS #10 cap 08/03/20 Insulin Detemir (Levemir) [Levemir] 36 unit SQ HS syr 08/03/20 predniSONE 10 mg PO DIRECTED #18 tab 08/03/20 traMADol HCL 50 mg PO BID PRN #4 tab 08/03/20 Allergies Allergy/AdvReac Type Severity Reaction Status Date / Time adhesive Allergy "PLASTIC Verified 08/07/20 16:53 TAPE PEELS SKIN,PAPER TAPE IS OK" linezolid Allergy Unknown Verified 08/07/20 16:53 penicillin G Allergy Rash/Hives Verified 08/07/20 16:53 Cephalosporins AdvReac FEVER Verified 08/07/20 16:53 Review of Systems ROS Statement: Those systems with pertinent positive or pertinent negative responses have been documented in the HPI. ROS Other: All systems not noted in ROS Statement are negative. Past Medical History Past Medical History: Atrial Fibrillation, Asthma, Coronary Artery Disease (CAD), Chest Pain / Angina, Heart Failure, COPD, Diabetes Mellitus, Deep Vein Thrombosis (DVT), Hyperlipidemia, Hypertension, Myocardial Infarction ([place]), Renal Disease, Sleep Apnea/CPAP/BIPAP, Thyroid Disorder, Vascular Disorder Additional Past Medical History / Comment(s): CHF, tracheobronchitis, CKD stage III, kidney stones, DVT L leg in 2004, KAMRYN without device use, colon abscess with bowel resection, multiple abdominal surgeries for a hiatal hernia that was complicated by prolonged hospitalization and prolonged ventilator dependent respiratory failure requiring a tracheostomy tube insertion, pvd-lower legs discolored/edematous, diverticular disease, chronic iron deficiency anemia, vertigo at times, Last Myocardial Infarction Date:: History of Any Multi-Drug Resistant Organisms: MRSA Date of last positivie culture/infection: 02/01/15 MDRO Source:: Abdomen Past Surgical History: Bowel Resection, Heart Catheterization With Stent, Hernia Repair Additional Past Surgical History / Comment(s): Colonoscopies, heart stents x 4, bowel resection with colostomy and colostomy reversal (removed a foot of pts colon)-2003, hernia repair with skin grafts and 2 fistula repairs (hospitalized for 1 year @[facility])-2010 MRSA 2014 in wounds. Past Anesthesia/Blood Transfusion Reactions: No Reported Reaction Additional Past Anesthesia/Blood Transfusion Reaction / Comment(s): Pt has received blood in past without reaction-2010 Date of Last Stent Placement:: 03/28/2015 Past Psychological History: Depression Smoking Status: Current every day smoker Past Alcohol Use History: None Reported Past Drug Use History: None Reported - Past Family History Mother Family Medical History: Osteoarthritis (OA), Pneumonia Additional Family Medical History / Comment(s): osteoporosis. arthroscopy surgery for knee Father Family Medical History: Liver Disease, Renal Disease Additional Family Medical History / Comment(s): triple heart bypass. liver transplant. aortic aneursym General Exam Limitations: no limitations General appearance: alert, in no apparent distress Head exam: Present: atraumatic, normocephalic Eye exam: Present: normal appearance, EOMI ENT exam: Present: mucous membranes dry Neck exam: Present: other (Trachea is in midline) Respiratory exam: Present: normal lung sounds bilaterally. Absent: respiratory distress, wheezes, rales, rhonchi, stridor, chest wall tenderness Cardiovascular Exam: Present: regular rate, irregular rhythm, normal heart sounds, other (Normal radial pulses bilaterally) GI/Abdominal exam: Present: soft, other (Obese abdomen). Absent: tenderness, guarding Extremities exam: Present: other (Negative Homans sign bilaterally; lower leg venous stasis dermatitis bilaterally). Absent: tenderness, pedal edema, calf tenderness Neurological exam: Present: alert, oriented X3. Absent: motor sensory deficit Psychiatric exam: Present: normal affect, normal mood Skin exam: Present: warm, dry, intact, normal color Course Vital Signs 08/07/20 15:16 Temperature 97.9 F Pulse Rate 91 Respiratory 18 Rate Blood Pressure 103/72 O2 Sat by Pulse 97 Oximetry - Reevaluation(s) Reevaluation #1: 08/07/20 16:48 Patient continues to deny having any chest pain while in the ED, and he denies development of any new symptoms while in the ED. Patient remains alert and breathing comfortably. Patient is aware of his test results, and he agrees with hospital admission at this time. 08/07/20 16:54 Case, H&P, test results and ED/EMS management were discussed with Dr. Barrera. He accepts hospital admission. He has no further recommendations at this time. EKG Findings - EKG Comments: EKG Findings:: Atrial fibrillation, ventricular rate of 89 bpm, normal QRS duration, normal QT interval, leftward axis, nonspecific ST and T-wave abnormality Medical Decision Making - Medical Decision Making Patient is afebrile and without leukocytosis. In light of the patient's medical history and elevated BNP, I suspect that the patient's chest x-ray findings likely reflect CHF and possible atelectasis rather than pneumonia. Patient's atrial fibrillation is currently rate-controlled. Patient's troponin is negative. Patient was given aspirin and nitroglycerin by EMS. Given the patient's cardiac history, will admit the patient the hospital for serial troponins, cardiac monitoring and further evaluation/treatment. Dr. Barrera has accepted hospital admission. - Lab Data Result diagrams: 08/07/20 15:37 08/07/20 15:37 Lab Results 08/07/20 08/07/20 08/07/20 Range/Units 15:37 15:37 15:37 WBC 9.9 (3.8-10.6) k/uL RBC 4.47 (4.30-5.90) m/uL Hgb 12.6 L (13.0-17.5) gm/dL Hct 40.1 (39.0-53.0) % MCV 89.8 (80.0-100.0) fL MCH 28.2 (25.0-35.0) pg MCHC 31.4 (31.0-37.0) g/dL RDW 18.8 H (11.5-15.5) % Plt Count 142 L (150-450) k/uL MPV 9.5 Neutrophils % 86 % Lymphocytes % 8 % Monocytes % 5 % Eosinophils % 1 % Basophils % 0 % Neutrophils # 8.5 H (1.3-7.7) k/uL Lymphocytes # 0.7 L (1.0-4.8) k/uL Monocytes # 0.5 (0-1.0) k/uL Eosinophils # 0.1 (0-0.7) k/uL Basophils # 0.0 (0-0.2) k/uL Hypochromasia Moderate Poikilocytosis Slight Anisocytosis Slight PT 13.1 H (9.0-12.0) sec INR 1.3 H (<1.2) APTT 26.1 (22.0-30.0) sec Sodium 139 (137-145) mmol/L Potassium 4.4 (3.5-5.1) mmol/L Chloride 104 (98-107) mmol/L Carbon Dioxide 26 (22-30) mmol/L Anion Gap 9 mmol/L BUN 67 H (9-20) mg/dL Creatinine 1.90 H (0.66-1.25) mg/dL Est GFR (CKD-EPI)AfAm 47 (>60 ml/min/1.73 sqM) Est GFR (CKD-EPI)NonAf 41 (>60 ml/min/1.73 sqM) Glucose 121 H (74-99) mg/dL Calcium 8.5 (8.4-10.2) mg/dL Magnesium 2.4 H (1.6-2.3) mg/dL Total Bilirubin 1.6 H (0.2-1.3) mg/dL AST 31 (17-59) U/L ALT 25 (4-49) U/L Alkaline Phosphatase 63 (38-126) U/L Troponin I (0.000-0.034) ng/mL NT-Pro-B Natriuret Pep pg/mL Total Protein 6.3 (6.3-8.2) g/dL Albumin 3.3 L (3.5-5.0) g/dL Coronavirus (PCR) (Not Detectd) 08/07/20 08/07/20 08/07/20 Range/Units 15:37 15:37 16:12 WBC (3.8-10.6) k/uL RBC (4.30-5.90) m/uL Hgb (13.0-17.5) gm/dL Hct (39.0-53.0) % MCV (80.0-100.0) fL MCH (25.0-35.0) pg MCHC (31.0-37.0) g/dL RDW (11.5-15.5) % Plt Count (150-450) k/uL MPV Neutrophils % % Lymphocytes % % Monocytes % % Eosinophils % % Basophils % % Neutrophils # (1.3-7.7) k/uL Lymphocytes # (1.0-4.8) k/uL Monocytes # (0-1.0) k/uL Eosinophils # (0-0.7) k/uL Basophils # (0-0.2) k/uL Hypochromasia Poikilocytosis Anisocytosis PT (9.0-12.0) sec INR (<1.2) APTT (22.0-30.0) sec Sodium (137-145) mmol/L Potassium (3.5-5.1) mmol/L Chloride (98-107) mmol/L Carbon Dioxide (22-30) mmol/L Anion Gap mmol/L BUN (9-20) mg/dL Creatinine (0.66-1.25) mg/dL Est GFR (CKD-EPI)AfAm (>60 ml/min/1.73 sqM) Est GFR (CKD-EPI)NonAf (>60 ml/min/1.73 sqM) Glucose (74-99) mg/dL Calcium (8.4-10.2) mg/dL Magnesium (1.6-2.3) mg/dL Total Bilirubin (0.2-1.3) mg/dL AST (17-59) U/L ALT (4-49) U/L Alkaline Phosphatase (38-126) U/L Troponin I <0.012 (0.000-0.034) ng/mL NT-Pro-B Natriuret Pep 17757 pg/mL Total Protein (6.3-8.2) g/dL Albumin (3.5-5.0) g/dL Coronavirus (PCR) Not Detected (Not Detectd) - Radiology Data Radiology results: report reviewed (Chest x-ray: Mild CHF, there is also probably some degree of lower lobe pneumonia and atelectasis) Disposition Clinical Impression: Chest pain, CHF (congestive heart failure) Disposition: ADMITTED IP TO THIS [facility] Condition: Stable Is patient prescribed a controlled substance at d/c from ED?: No Referrals: Eleazar Bhatt MD [REFERRING] - 1-2 days Time of Disposition: 16:54
[2020-08-07] MEDS ORDERED: SODIUM CHLORIDE 0.9% 500 ML 500 ML IV ONE (15:36)
[2020-08-07 15:51] LABS: Anisocytosis Slight; Basophils % (A) 0 %; Eosinophils # (A) 0.1 k/uL (0-0.7); Eosinophils % (A) 1 %; HCT 40.1 % (39.0-53.0); HGB 12.6 gm/dL (13.0-17.5); Hypochromasia Moderate; Lymphocytes # (A) 0.7 k/uL (1.0-4.8); Lymphocytes % (A) 8 %; MCH 28.2 pg (25.0-35.0); MCHC 31.4 g/dL (31.0-37.0); MCV 89.8 fL (80.0-100.0); Mean Platelet Volume 9.5; Monocytes # (A) 0.5 k/uL (0-1.0); Monocytes % (A) 5 %; Neutrophils # (A) 8.5 k/uL (1.3-7.7); Neutrophils % (A) 86 %; Platelet Count 142 k/uL (150-450); Poikilocytosis Slight; RBC 4.47 m/uL (4.30-5.90); RDW 18.8 % (11.5-15.5); WBC 9.9 k/uL (3.8-10.6)
[2020-08-07 15:59] LABS: INR 1.3 (<1.2); Partial Thromboplastin Time 26.1 sec (22.0-30.0); Prothrombin Time 13.1 sec (9.0-12.0)
[2020-08-07 16:01] LABS: Albumin 3.3 g/dL (3.5-5.0); Calcium 8.5 mg/dL (8.4-10.2); Magnesium 2.4 mg/dL (1.6-2.3); Potassium 4.4 mmol/L (3.5-5.1); Total Bilirubin 1.6 mg/dL (0.2-1.3); Total Protein 6.3 g/dL (6.3-8.2)
--- NOTE | 2020-08-07 16:08 | XR ---
EXAMINATION TYPE: XR chest 2V DATE OF EXAM: 08/07/2020 COMPARISON: 08/03/2020 HISTORY: Pneumonia. Chest pain. Short of breath. TECHNIQUE: FINDINGS: Heart is enlarged. There is some pulmonary vascular congestion. There is linear density at the lung bases. There is probably some mild airspace infiltrate in both lower lobes. IMPRESSION: Mild congestive heart failure that is increased compared to recent exam. There is also pr obably some degree of lower lobe pneumonia and atelectasis also slightly increased.
[2020-08-07] MEDS ORDERED: FUROSEMIDE 10 MG/ML 4 ML VIAL IV STA (16:46)
[2020-08-07 18:16] LABS: Glucose,Whole Blood 124 mg/dL (75-99)
[2020-08-07] MEDS ORDERED: INFLUENZA VACCINE (6 MOS+) 60 MCG/0.5 ML SYRINGE IM ONE (18:27)
[2020-08-07] MEDS ORDERED: ALBUTEROL NEBULIZED 2.5 MG/3 ML INHALATION PRN (18:50)
[2020-08-07] MEDS ORDERED: NITROGLYCERIN SL TABS 0.4 MG TAB SUBLINGUAL PRN (18:50)
[2020-08-07 20:57] LABS: Glucose,Whole Blood 182 mg/dL (75-99)
[2020-08-07] MEDS: buPROPion XL 150 MG TAB.ER.24H PO SCH (21:16)
[2020-08-07] MEDS: SERTRALINE 50 MG TAB PO SCH (21:16)
[2020-08-07] MEDS: METOPROLOL TARTRATE 50 MG TAB PO SCH (21:16)
[2020-08-07] MEDS: ATORVASTATIN 80 MG TAB PO SCH (21:16)
[2020-08-07] MEDS: GABAPENTIN 300 MG CAP PO SCH (21:16)
[2020-08-07] MEDS: INSULIN DETEMIR (LEVEMIR) 100 UNIT/ML SYR SQ SCH (21:17)
[2020-08-07] MEDS: APIXABAN 5 MG TAB PO SCH (21:17)
[2020-08-07] MEDS: traMADol 50 MG TAB PO PRN (21:17)
[2020-08-08 06:13] LABS: Glucose,Whole Blood 81 mg/dL (75-99)
[2020-08-08] MEDS: POTASSIUM CHLORIDE ER 20 MEQ TAB.ER PO SCH (06:35)
[2020-08-08] MEDS: PANTOPRAZOLE 40 MG TABLET PO SCH (06:35)
[2020-08-08] MEDS: INSULIN ASPART (NovoLOG) 100 UNIT/ML VIAL SQ SCH ×4 (06:35→20:55)
[2020-08-08 08:05] LABS: Albumin 3.2 g/dL (3.5-5.0); Calcium 8.9 mg/dL (8.4-10.2); Total Bilirubin 1.4 mg/dL (0.2-1.3); Total Protein 6.1 g/dL (6.3-8.2)
[2020-08-08 08:17] LABS: Anisocytosis Slight; HCT 41.8 % (39.0-53.0); HGB 12.9 gm/dL (13.0-17.5); Hypochromasia Marked; MCH 28.2 pg (25.0-35.0); MCHC 30.9 g/dL (31.0-37.0); MCV 91.2 fL (80.0-100.0); Mean Platelet Volume 9.9; Platelet Count 135 k/uL (150-450); Poikilocytosis Slight; RBC 4.58 m/uL (4.30-5.90); RDW 18.9 % (11.5-15.5)
[2020-08-08 08:51] LABS: Eosinophils # (M) 0.21 k/uL (0-0.7); Lymphocytes # (M) 1.91 k/uL (1.0-4.8); Monocytes # (M) 0.95 k/uL (0-1.0); Neutrophils # (M) 7.63 k/uL (1.3-7.7); Neutrophils % (M) 72 %; Nucleated Red Blood Cells 2 /100 WBC (0-0); Total Cells Counted 200; WBC 10.6 k/uL (3.8-10.6)
[2020-08-08] MEDS ORDERED: SPIRONOLACTONE 25 MG TAB PO SCH (09:00)
[2020-08-08] MEDS ORDERED: FUROSEMIDE 20 MG TAB PO SCH (09:00)
[2020-08-08] MEDS: SPIRONOLACTONE 25 MG TAB PO SCH (09:41)
[2020-08-08] MEDS: METOPROLOL TARTRATE 50 MG TAB PO SCH ×2 (09:42→21:10)
[2020-08-08] MEDS: APIXABAN 5 MG TAB PO SCH ×2 (09:42→21:10)
--- NOTE | 2020-08-08 10:30 | P.CRDCN ---
History of Present Illness History of present illness: HISTORY OF PRESENTING ILLNESS This is a pleasant 50-year-old male past medical history significant for very artery disease status post PCI of the LAD and circumflex artery 2015 he also has a chronic total occlusion of the RCA, chronic persistent atrial fibrillation on long-term anticoagulation, chronic diastolic heart failure, hypertension, dyslipidemia, diabetes mellitus and morbid obesity. He follows in the office with Dr. Wood. We have been asked to see in consultation for chest pain. He states yesterday while sitting down doing nothing in particular he had an acute onset of chest pain described as a squeezing sensation under the left axilla and the left precordial region. He states it felt like someone was reaching inside and squeezing his heart. There was some mild radiation into the left shoulder and left upper arm. There was no radiation through to the back, into the neck or the jaw. He had no associated shortness of breath, dizziness, palpitations, nausea, vomiting or diaphoresis. His symptoms lasted for approximately 10 minutes and slowly started to improve on their own. By the time EMS arrived he states this pain was only about a 2. He was given oral nitrates and his pain did completely resolve. He was given one dose of IV Lasix in the emergency department. Recent echocardiogram obtained June 2020 revealed preserved LV systolic function with ejection fraction 55-60%, apical inferior and apical septal LV wall motion hypokinesia, mild tricuspid regurgitation and moderate pulmonary hypertension with RVSP of 47 mmHg. DIAGNOSTICS EKG reveals atrial fibrillation with left axis deviation heart rate [address] abnormalities noted in the inferior leads. Telemetry tracings indicate persistent atrial fibrillation with controlled ventricular rates. Chest xray mild congestive heart failure with possible lower lobe pneumonia. Laboratory reviewed, WBC 10.6, hemoglobin 12.9, platelets 135, sodium 139, potassium 4.0, creatinine on admission 1. 9 repeat today 1.89, magnesium 2.4, troponin negative 3, proBNP 24,900. Current cardiac medications include atorvastatin 80 mg daily, Aldactone 25 mg at bedtime, Eliquis 5 mg twice a day, Lasix 60 mg twice a day and Lopressor 50 mg twice a day. REVIEW OF SYSTEMS At the time of my exam: CONSTITUTIONAL: Denies fever or chills. CARDIOVASCULAR: Denies chest pain, shortness of breath, orthopnea, PND or palpitations. RESPIRATORY: Denies cough. GASTROINTESTINAL: Denies abdominal pain, diarrhea, constipation, nausea or vomiting. MUSCULOSKELETAL: Denies myalgias. NEUROLOGIC: Denies numbness, tingling, headacbe or weakness. ENDOCRINE: Denies fatigue, weight change, polydipsia or polyurina. GENITOURINARY: Denies burning, hematuria or urgency with micturation. HEMATOLOGIC: Denies history of anemia or bleeding. PHYSICAL EXAMINATION Blood pressure 128/60 heart rate 84 afebrile and maintaining oxygen saturation on nasal cannula. CONSTITUTIONAL: No apparent distress. Morbidly obese. HEENT: Head is normocephalic. Pupils are equal, round. Sclerae anicteric. Mucous membranes of the mouth are moist. No JVD. No carotid bruit. CHEST EXAMINATION: Bibasal rales, faint expiratory wheeze and no rhonchi. No chest wall tenderness is noted on palpation or with deep breathing. HEART EXAMINATION: Irregular rate and rhythm. S1, S2 heard. No murmurs, gallops or rub. ABDOMEN: Soft, nontender. Positive bowel sounds. EXTREMITIES: 2+ peripheral pulses, trace lower extremity edema non-pitting and no calf tenderness. NEUROLOGIC EXAMINATION: Patient is awake, alert and oriented x3. ASSESSMENT Acute on chronic diastolic heart failure Chest pain Chronic persistent atrial fibrillation on long-term anticoagulation Chronic kidney disease Coronary artery disease status post PCI to the circumflex and LAD 2014 Hypertension Dyslipidemia Diabetes mellitus Pulmonary hypertension Morbid obesity, BMI 50 PLAN An acute coronary event has been ruled out. Initiate Lasix 40 mg IV twice a day. Resume Aldactone 25 mg daily. Document accurate intake and output along with daily weights. Follow renal function and electrolytes in the morning. Further recommendations to follow based upon clinical course. Thank you kindly for this consultation. Nurse Practitioner note has been reviewed, I agree with a documented findings and plan of care. Patient was seen and examined. Past Medical History Past Medical History: Atrial Fibrillation, Asthma, Coronary Artery Disease (CAD), Chest Pain / Angina, Heart Failure, COPD, Diabetes Mellitus, Deep Vein Thrombosis (DVT), Hyperlipidemia, Hypertension, Myocardial Infarction ([place]), Renal Disease, Sleep Apnea/CPAP/BIPAP, Thyroid Disorder, Vascular Disorder Additional Past Medical History / Comment(s): CHF, tracheobronchitis, CKD stage III, kidney stones, DVT L leg in 2004, KAMRYN without device use, colon abscess with bowel resection, multiple abdominal surgeries for a hiatal hernia that was complicated by prolonged hospitalization and prolonged ventilator dependent respiratory failure requiring a tracheostomy tube insertion, pvd-lower legs discolored/edematous, diverticular disease, chronic iron deficiency anemia, vertigo at times, Last Myocardial Infarction Date:: History of Any Multi-Drug Resistant Organisms: MRSA Date of last positivie culture/infection: 02/01/15 MDRO Source:: Abdomen Past Surgical History: Bowel Resection, Heart Catheterization With Stent, Hernia Repair Additional Past Surgical History / Comment(s): Colonoscopies, heart stents x 4, bowel resection with colostomy and colostomy reversal (removed a foot of pts colon)-2003, hernia repair with skin grafts and 2 fistula repairs (hospitalized for 1 year @[facility])-2010 MRSA 2014 in wounds. Past Anesthesia/Blood Transfusion Reactions: No Reported Reaction Additional Past Anesthesia/Blood Transfusion Reaction / Comment(s): Pt has received blood in past without reaction-2010 Date of Last Stent Placement:: 03/28/2015 Smoking Status: Former smoker - Past Family History Mother Family Medical History: Osteoarthritis (OA), Pneumonia Additional Family Medical History / Comment(s): osteoporosis. arthroscopy surgery for knee Father Family Medical History: Liver Disease, Renal Disease Additional Family Medical History / Comment(s): triple heart bypass. liver transplant. aortic aneursym Medications and Allergies Home Medications Medication Instructions Recorded Confirmed Type Sertraline [Zoloft] 150 mg PO HS@199910/19/13 08/07/20 History Atorvastatin [Lipitor] 80 mg PO HS@199903/25/15 08/07/20 History Nitroglycerin Sl Tabs [Nitrostat] 0.4 mg SL Q5M PRN 06/23/20 08/07/20 History Potassium Chloride ER [K-Dur 20] 40 meq PO DAILY@0700 06/23/20 08/07/20 History Spironolactone [Aldactone] 25 mg PO HS@199906/23/20 08/07/20 History Apixaban [Eliquis] 5 mg PO BID #60 tab 06/26/20 08/07/20 Rx Metoprolol Tartrate [Lopressor] 50 mg PO BID #60 tab 06/26/20 08/07/20 Rx buPROPion XL [Wellbutrin XL] 150 mg PO HS@199907/26/20 08/07/20 History traMADol HCL 50 mg PO BID PRN #4 tab 08/03/20 08/07/20 Rx Albuterol Inhaler [Ventolin Hfa 1 puff INHALATION RT-Q6H PRN 08/07/20 08/07/20 History Inhaler] Cefdinir [Omnicef] 300 mg PO BID@0700,1900 08/07/20 08/07/20 History Enulose Solution 10gm/15ml 20 gm PO DAILY PRN 08/07/20 08/07/20 History Enulose Solution 10gm/15ml 20 mg PO HS@199908/07/20 08/07/20 History Furosemide [Lasix] 60 mg PO BID 08/07/20 08/07/20 History Gabapentin [Neurontin] 300 mg PO HS@199908/07/20 08/07/20 History Insulin Detemir [Levemir Flextouch] 36 units SQ HS@199908/07/20 08/07/20 History Pantoprazole Sodium [Protonix] 40 mg PO DAILY@0600 08/07/20 08/07/20 History predniSONE See Taper PO DIRECTED 08/07/20 08/07/20 History Allergies Allergy/AdvReac Type Severity Reaction Status Date / Time adhesive Allergy "PLASTIC Verified 08/07/20 16:53 TAPE PEELS SKIN,PAPER TAPE IS OK" linezolid Allergy Unknown Verified 08/07/20 16:53 penicillin G Allergy Rash/Hives Verified 08/07/20 16:53 Cephalosporins AdvReac FEVER Verified 08/07/20 16:53 Physical Exam Vitals: Vital Signs Temp Pulse Pulse Resp BP BP Pulse Ox 08/08/20 03:41 97.0 F L 84 16 128/60 97 08/07/20 23:41 86 16 08/07/20 23:40 96.9 F L 85 17 118/74 96 08/07/20 19:55 96.8 F L 85 17 99/60 98 08/07/20 18:40 88 18 08/07/20 18:07 97.7 F 88 16 101/73 96 08/07/20 17:36 117/85 08/07/20 17:20 107/76 08/07/20 17:05 104/71 08/07/20 17:02 87 18 94/60 97 08/07/20 15:16 97.9 F 91 18 103/72 97 Intake and Output 08/07/20 08/08/20 08/08/20 22:59 06:59 14:59 Intake Total 222 10 Output Total 800 400 Balance 222 -800 -390 Intake: IV 10 Invasive Line 1 10 Oral 222 Output: Urine 800 400 Other: Voiding Method Urinal Urinal Weight 156.489 kg 158.5 kg Results 08/08/20 07:28 08/08/20 07:28 Cardiac Enzymes 08/07/20 08/07/20 08/07/20 Range/Units 15:37 15:37 18:46 AST 31 (17-59) U/L Troponin I <0.012 <0.012 (0.000-0.034) ng/mL 08/07/20 Range/Units 20:50 AST (17-59) U/L Troponin I <0.012 (0.000-0.034) ng/mL Coagulation 08/07/20 Range/Units 15:37 PT 13.1 H (9.0-12.0) sec APTT 26.1 (22.0-30.0) sec CBC 08/07/20 Range/Units 15:37 WBC 9.9 (3.8-10.6) k/uL RBC 4.47 (4.30-5.90) m/uL Hgb 12.6 L (13.0-17.5) gm/dL Hct 40.1 (39.0-53.0) % Plt Count 142 L (150-450) k/uL Comprehensive Metabolic Panel 08/07/20 Range/Units 15:37 Sodium 139 (137-145) mmol/L Potassium 4.4 (3.5-5.1) mmol/L Chloride 104 (98-107) mmol/L Carbon Dioxide 26 (22-30) mmol/L BUN 67 H (9-20) mg/dL Creatinine 1.90 H (0.66-1.25) mg/dL Glucose 121 H (74-99) mg/dL Calcium 8.5 (8.4-10.2) mg/dL AST 31 (17-59) U/L ALT 25 (4-49) U/L Alkaline Phosphatase 63 (38-126) U/L Total Protein 6.3 (6.3-8.2) g/dL Albumin 3.3 L (3.5-5.0) g/dL Current Medications Generic Name Dose Route Start Last Admin Trade Name Freq PRN Reason Stop Dose Admin Albuterol Sulfate 2.5 mg 08/07/20 18:50 Albuterol Nebulized 2.5 Mg/3 Ml INHALATION RT-Q6H PRN Shortness Of Breath Or Wheezing Apixaban 5 mg 08/07/20 21:00 08/07/20 21:17 Apixaban 5 Mg Tab PO 5 mg BID ZURI Administration Atorvastatin Calcium 80 mg 08/07/20 20:00 08/07/20 21:16 Atorvastatin 80 Mg Tab PO 80 mg HS@1999 [facility] Administration Bupropion HCl 150 mg 08/07/20 20:00 08/07/20 21:16 Bupropion Xl 150 Mg Tab.Er.24h PO 150 mg HS@1999 [facility] Administration Furosemide 60 mg 08/08/20 09:00 Furosemide 20 Mg Tab PO BID@0900,1600 [facility] Gabapentin 300 mg 08/07/20 20:00 08/07/20 21:16 Gabapentin 300 Mg Cap PO 300 mg HS@1999 [facility] Administration Insulin Aspart 0 unit 08/08/20 07:30 08/08/20 06:35 Insulin Aspart (Novolog) 100 Unit/Ml Vial SQ Not Given [facility] Protocol Insulin Detemir 36 unit 08/07/20 20:00 08/07/20 21:17 Insulin Detemir (Levemir) 100 Unit/Ml Syr SQ 36 unit HS@1999 [facility] Administration Metoprolol Tartrate 50 mg 08/07/20 21:00 08/07/20 21:16 Metoprolol Tartrate 50 Mg Tab PO 50 mg BID [facility] Administration Nitroglycerin 0.4 mg 08/07/20 18:50 Nitroglycerin Sl Tabs 0.4 Mg Tab SUBLINGUAL Q5M PRN Chest Pain Pantoprazole Sodium 40 mg 08/08/20 06:00 08/08/20 06:35 Pantoprazole 40 Mg Tablet PO 40 mg DAILY@0600 [facility] Administration Potassium Chloride 40 meq 08/08/20 07:00 08/08/20 06:35 Potassium Chloride Er 20 Meq Tab.Er PO 40 meq DAILY@0700 [facility] Administration Sertraline HCl 150 mg 08/07/20 20:00 08/07/20 21:16 Sertraline 50 Mg Tab PO 150 mg HS@1999 [facility] Administration Spironolactone 18.75 mg 08/08/20 09:00 Spironolactone 25 Mg Tab PO DAILY [facility] Tramadol HCl 50 mg 08/07/20 18:50 08/07/20 21:17 Tramadol 50 Mg Tab PO 50 mg BID PRN Administration Pain Intake and Output 08/07/20 08/08/20 08/08/20 22:59 06:59 14:59 Intake Total 222 10 Output Total 800 400 Balance 222 -800 -390 Intake: IV 10 Invasive Line 1 10 Oral 222 Output: Urine 800 400 Other: Voiding Method Urinal Urinal Weight 156.489 kg 158.5 kg 08/07/20 15:37 08/07/20 15:37
[2020-08-08 11:49] LABS: Glucose,Whole Blood 94 mg/dL (75-99)
--- NOTE | 2020-08-08 14:00 | P.CONS ---
History of Present Illness - Reason for Consult Consult date: 08/08/20 wound care - History of Present Illness 50-year-old male known to the wound care center being seen on 3 for nonhealing ulcerations to the abdomen and the left foot second digit. Patient has nonhealing ulcerations from prior surgeries there have been open for approximately 2 years. They do close and will reopen often. Ulcerations have fat layer exposure with granulation seen throughout the wound bed and moderate slough noted. There is serosanguineous moderate drainage noted. Patient has been utilizing collagen at home. The ulceration to the left foot is epithelialized. Patient's past medical history significant for COPD, A. fib, CHF, coronary artery disease, AR, type 2 diabetes end stage renal failure i nsufficiency. Review Of Systems: Constitutional: No fever, no chills, no night sweats. No weight change. No weakness, fatigue or lethargy. No daytime sleepiness. Integumentary:reports wounds, no lesions. No rash or pruritus. No unusual bruising. No change in hair or nails. Physical exam: General Appearance: Alert, cooperative, no distress, appears stated age. Skin: See HPI all other Skin color, texture, tugor normal, no rashes or lesions. Neurologic: Alert oriented x3 Assessment/plan: 1. Nonpressure chronic ulcer of skin of other sites of fat layer exposure. Apply collagen, saline moistened gauze, dry gauze, ABDs and secured with paper tape. Change Saturday. Patient will continue with his weekly wound care appointments. Please call the wound care center to reschedule his next appointment. 2. Type 2 diabetes with skin ulcer Thank you for the consultation any questions please contact the wound care center DNP note has been reviewed and discussed with Dr. Jefferson and the impression and plan of care has been directed as dictated. Past Medical History Past Medical History: Atrial Fibrillation, Asthma, Coronary Artery Disease (CAD), Chest Pain / Angina, Heart Failure, COPD, Diabetes Mellitus, Deep Vein Thrombosis (DVT), Hyperlipidemia, Hypertension, Myocardial Infarction ([place]), Renal Disease, Sleep Apnea/CPAP/BIPAP, Thyroid Disorder, Vascular Disorder Additional Past Medical History / Comment(s): CHF, tracheobronchitis, CKD stage III, kidney stones, DVT L leg in 2004, KAMRYN without device use, colon abscess with bowel resection, multiple abdominal surgeries for a hiatal hernia that was complicated by prolonged hospitalization and prolonged ventilator dependent respiratory failure requiring a tracheostomy tube insertion, pvd-lower legs discolored/edematous, diverticular disease, chronic iron deficiency anemia, vertigo at times, Last Myocardial Infarction Date:: History of Any Multi-Drug Resistant Organisms: MRSA Year Discovered:: 02/01/15 MDRO Source:: Abdomen Past Surgical History: Bowel Resection, Heart Catheterization With Stent, Hernia Repair Additional Past Surgical History / Comment(s): Colonoscopies, heart stents x 4, bowel resection with colostomy and colostomy reversal (removed a foot of pts colon)-2003, hernia repair with skin grafts and 2 fistula repairs (hospitalized for 1 year @[facility])-2010 MRSA 2014 in wounds. Past Anesthesia/Blood Transfusion Reactions: No Reported Reaction Additional Past Anesthesia/Blood Transfusion Reaction / Comm: Pt has received blood in past without reaction-2010 Date of Last Stent Placement:: 03/28/2015 Smoking Status: Former smoker - Past Family History Mother Family Medical History: Osteoarthritis (OA), Pneumonia Additional Family Medical History / Comment(s): osteoporosis. arthroscopy surgery for knee Father Family Medical History: Liver Disease, Renal Disease Additional Family Medical History / Comment(s): triple heart bypass. liver transplant. aortic aneursym Medications and Allergies Home Medications Medication Instructions Recorded Confirmed Type Sertraline [Zoloft] 150 mg PO HS@199910/19/13 08/07/20 History Atorvastatin [Lipitor] 80 mg PO HS@199903/25/15 08/07/20 History Nitroglycerin Sl Tabs [Nitrostat] 0.4 mg SL Q5M PRN 06/23/20 08/07/20 History Potassium Chloride ER [K-Dur 20] 40 meq PO DAILY@0700 06/23/20 08/07/20 History Spironolactone [Aldactone] 25 mg PO HS@199906/23/20 08/07/20 History Apixaban [Eliquis] 5 mg PO BID #60 tab 06/26/20 08/07/20 Rx Metoprolol Tartrate [Lopressor] 50 mg PO BID #60 tab 06/26/20 08/07/20 Rx buPROPion XL [Wellbutrin XL] 150 mg PO HS@199907/26/20 08/07/20 History traMADol HCL 50 mg PO BID PRN #4 tab 08/03/20 08/07/20 Rx Albuterol Inhaler [Ventolin Hfa 1 puff INHALATION RT-Q6H PRN 08/07/20 08/07/20 History Inhaler] Cefdinir [Omnicef] 300 mg PO BID@0700,1900 08/07/20 08/07/20 History Enulose Solution 10gm/15ml 20 gm PO DAILY PRN 08/07/20 08/07/20 History Enulose Solution 10gm/15ml 20 mg PO HS@199908/07/20 08/07/20 History Furosemide [Lasix] 60 mg PO BID 08/07/20 08/07/20 History Gabapentin [Neurontin] 300 mg PO HS@199908/07/20 08/07/20 History Insulin Detemir [Levemir Flextouch] 36 units SQ HS@199908/07/20 08/07/20 History Pantoprazole Sodium [Protonix] 40 mg PO DAILY@0600 08/07/20 08/07/20 History predniSONE See Taper PO DIRECTED 08/07/20 08/07/20 History Allergies Allergy/AdvReac Type Severity Reaction Status Date / Time adhesive Allergy "PLASTIC Verified 08/07/20 16:53 TAPE PEELS SKIN,PAPER TAPE IS OK" linezolid Allergy Unknown Verified 08/07/20 16:53 penicillin G Allergy Rash/Hives Verified 08/07/20 16:53 Cephalosporins AdvReac FEVER Verified 08/07/20 16:53 Physical Exam Vitals: Vital Signs Temp Pulse Pulse Resp BP BP Pulse Ox 08/08/20 12:00 97.2 F L 85 16 133/76 97 08/08/20 08:37 97 08/08/20 07:50 97.7 F 74 16 114/60 95 08/08/20 03:41 97.0 F L 84 16 128/60 97 08/07/20 23:41 86 16 08/07/20 23:40 96.9 F L 85 17 118/74 96 08/07/20 19:55 96.8 F L 85 17 99/60 98 08/07/20 18:40 88 18 08/07/20 18:07 97.7 F 88 16 101/73 96 08/07/20 17:36 117/85 08/07/20 17:20 107/76 08/07/20 17:05 104/71 08/07/20 17:02 87 18 94/60 97 08/07/20 15:16 97.9 F 91 18 103/72 97 Intake and Output 08/07/20 08/08/20 08/08/20 22:59 06:59 14:59 Intake Total 222 1210 Output Total 800 850 Balance 222 -800 360 Intake: IV 10 Invasive Line 1 10 Oral 222 1200 Output: Urine 800 850 Other: Voiding Method Urinal Urinal Weight 156.489 kg 158.5 kg Results CBC & Chem 7: 08/08/20 07:28 08/08/20 07:28 Labs: Abnormal Lab Results - Last 24 Hours (Table) 08/07/20 08/07/20 08/07/20 Range/Units 15:37 15:37 15:37 Hgb 12.6 L (13.0-17.5) gm/dL MCHC (31.0-37.0) g/dL RDW 18.8 H (11.5-15.5) % Plt Count 142 L (150-450) k/uL Neutrophils # 8.5 H (1.3-7.7) k/uL Lymphocytes # 0.7 L (1.0-4.8) k/uL Nucleated RBCs (0-0) /100 WBC PT 13.1 H (9.0-12.0) sec INR 1.3 H (<1.2) BUN 67 H (9-20) mg/dL Creatinine 1.90 H (0.66-1.25) mg/dL Glucose 121 H (74-99) mg/dL POC Glucose (mg/dL) (75-99) mg/dL Magnesium 2.4 H (1.6-2.3) mg/dL Total Bilirubin 1.6 H (0.2-1.3) mg/dL Total Protein (6.3-8.2) g/dL Albumin 3.3 L (3.5-5.0) g/dL 08/07/20 08/07/20 08/08/20 Range/Units 18:14 20:56 07:28 Hgb 12.9 L (13.0-17.5) gm/dL MCHC 30.9 L (31.0-37.0) g/dL RDW 18.9 H (11.5-15.5) % Plt Count 135 L (150-450) k/uL Neutrophils # (1.3-7.7) k/uL Lymphocytes # (1.0-4.8) k/uL Nucleated RBCs 2 H (0-0) /100 WBC PT (9.0-12.0) sec INR (<1.2) BUN (9-20) mg/dL Creatinine (0.66-1.25) mg/dL Glucose (74-99) mg/dL POC Glucose (mg/dL) 124 H 182 H (75-99) mg/dL Magnesium (1.6-2.3) mg/dL Total Bilirubin (0.2-1.3) mg/dL Total Protein (6.3-8.2) g/dL Albumin (3.5-5.0) g/dL 08/08/20 Range/Units 07:28 Hgb (13.0-17.5) gm/dL MCHC (31.0-37.0) g/dL RDW (11.5-15.5) % Plt Count (150-450) k/uL Neutrophils # (1.3-7.7) k/uL Lymphocytes # (1.0-4.8) k/uL Nucleated RBCs (0-0) /100 WBC PT (9.0-12.0) sec INR (<1.2) BUN 61 H (9-20) mg/dL Creatinine 1.89 H (0.66-1.25) mg/dL Glucose (74-99) mg/dL POC Glucose (mg/dL) (75-99) mg/dL Magnesium (1.6-2.3) mg/dL Total Bilirubin 1.4 H (0.2-1.3) mg/dL Total Protein 6.1 L (6.3-8.2) g/dL Albumin 3.2 L (3.5-5.0) g/dL Assessment and Plan (1) Nonhealing skin ulcer with fat layer exposed Current Visit: No Status: Acute Code(s): L98.492 - NON-PRS CHRONIC ULCER OF SKIN OF SITES W FAT LAYER EXPOSED SNOMED Code(s): 55538161 (2) Diabetes with skin ulcer Current Visit: No Status: Acute Code(s): E11.622 - TYPE 2 DIABETES MELLITUS WITH OTHER SKIN ULCER; L98.499 - NON-PRESSURE CHRONIC ULCER OF SKIN OF SITES W UNSP SEVERITY SNOMED Code(s): 90797658 (3) Morbid obesity with BMI of 50.0-59.9, adult Current Visit: No Status: Acute Code(s): E66.01 - MORBID (SEVERE) OBESITY DU E TO EXCESS CALORIES SNOMED Code(s): 532892183
[2020-08-08 16:43] LABS: Glucose,Whole Blood 101 mg/dL (75-99)
--- NOTE | 2020-08-08 20:45 | P.HPIM ---
History of Present Illness H&P Date: 08/08/20 Chief Complaint: Chest pain History of presenting complaint: This is a pleasant 50-year-old patient with extensive medical history. Patient follows with visiting physicians. Dr. Chaney. Chronic stable medical conditions include diabetes with peripheral neuropathy, coronary artery disease with stent, COPD, hypertension, hyperlipidemia, chronic kidney disease, kidney ston es,(s) sleep apnea does not use a device, multiple abdominal surgeries for hiatal hernia, also history of tracheostomy, peripheral arterial disease, diverticulosis,. 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 Normally uses a scooter or a walker to get about. Patient has chronic breakdown of superficial skin on the abdominal wall from scratching. Patient history of episode of left chest pain below the elbow lasting for about 10 minutes. It was like a grabbing sensation. No shortness or breath no dizzi ness no fever no chills no cough no perspiration. EMS did give him nitroglycerin but by that time his pain is significantly improved. No significant edema. Denies any obvious shortness of breath. Review of systems: GEN.: None EYES: None HEENT: None NECK: None RESPIRATORY: Short of breath-at baseline CARDIOVASCULAR: Mild edema GASTROINTESTINAL: None GENITOURINARY: None MUSCULOSKELETAL: None LYMPHATICS: None HEMATOLOGICAL: None PSYCHIATRY: None NEUROLOGICAL: chronic pain in the lower extremities. Past medical history to include: Atrial fibrillation, coronary artery disease with stent, congestive heart failure EF 30-35%, COPD, DVT, hypertension, hyperlipidemia, chronic kidney disease, obstructive sleep apnea, hypothyroid, peripheral artery disease, chronic kidney disease stage III, kidney stones, DVT in left leg in 2004,: Abscess with bowel resection, multiple abdominal surgeries for hiatal hernia,. Bladder prolonged hospitalization and prolonged medical-related dependent, with a tracheostomy tube, peripheral arterial disease, colonic diverticulosis, iron deficiency anemia,. Diabetes with peripheral neuropathy Social history: Patient is on disability. Patient smoked for about 10 years and stopped in 2008. No alcohol. Patient lives alone. Does have a scooter and a walker Physical examination: VITAL SIGNS: 97.9, 91, 18, 103/72, 97% on 2 L GENERAL: BMI 50.1, reclining in bed, not in distress EYES: Pupils equal. Conjunctiva normal. HEENT: External appearance of nose and ears normal, oral cavity grossly normal. NECK: JVD unable to assess; masses not palpable. HEART: Heart sounds irregular; mild edema. LUNGS: Respiratory rate increased; decreased breath sounds ABDOMEN: Soft, nontender, liver spleen not palpable, no masses palpable, distended, with superficial breakdown of skin, and multiple areas. PSYCH: Alert and oriented x3; mood and affect a bit tired NEUROLOGICAL: Cranial nerves grossly intact; no facial asymmetry, power and sensation grossly intact. LYMPHATICS: No lymph nodes palpable in the axilla and neck EXTREMITIES: Pigmentation of the both lower extremity distally INVESTIGATIONS, reviewed in the clinical context: White count 9.9 hemoglobin 12.6 platelets 142 potassium 4.4 bun 67 creatinine 1.90 ProBNP-24,900 EKG tracing personally reviewed by me-atrial flutter fibrillation with a rate of 107 Coronavirus [PCR]-not detected Chest x-ray film personally reviewed by [id number] prominence Previous testing: August 03: Bun 72 creatinine 2.58 2-D echocardiogram [06/24/2020]-atrial flutter, EF 55 have a 60%, moderate concentric LVH, some wall motion abnormality, moderate mitral regurgitation, moderate pulmonary hypertension Assessment: -Acute on chronic congestive heart exacerbation EF of 50-55% from diastolic dysfunction from underlying coronary artery disease. Give Lasix drip. Strict I's and O's. Fluid restriction -Persistent atrial flutter fibrillation with ventricular rate uncontrolled. Lopressor 75 mg twice a day. Continue eliquis -Multiple superficial abdominal wall excoriations from scratching, -Dermatot illomania -COPD in an ex-smoker -Chronic DVT chronically on anticoagulation -Hyperlipidemia -Essential hypertension -Chronic kidney disease stage III from diabetic nephropathy and hypertensive nephrosclerosis -Obstructive sleep apnea does not use a device -Hypothyroid -Peripheral arterial disease -Multiple abdominal wall hernia from prior surgery -Colonic diverticulosis -Morbid obesity BMI 54.6 -Diabetes mellitus type 2 chronically on insulin. With peripheral neuropathy. Resume Levemir. Follow Accu-Cheks. Additionally: Put the patient on Lasix drip overnight. Fluid restriction. Strict I's and O's. Home medications. Cardiology consulted. Past Medical History Past Medical History: Atrial Fibrillation, Asthma, Coronary Artery Disease (CAD), Chest Pain / Angina, Heart Failure, COPD, Diabetes Mellitus, Deep Vein Thrombosis (DVT), Hyperlipidemia, Hypertension, Myocardial Infarction (MA), Renal Disease, Sleep Apnea/CPAP/BIPAP, Thyroid Disorder, Vascular Disorder Additional Past Medical History / Comment(s): CHF, tracheobronchitis, CKD stage III, kidney stones, DVT L leg in 2004, KAMRYN without device use, colon abscess with bowel resection, multiple abdominal surgeries for a hiatal hernia that was complicated by prolonged hospitalization and prolonged ventilator dependent respiratory failure requiring a tracheostomy tube insertion, pvd-lower legs discolored/edematous, diverticular disease, chronic iron deficiency anemia, vertigo at times, Last Myocardial Infarction Date:: History of Any Multi-Drug Resistant Organisms: MRSA Date of last positivie culture/infection: 02/01/15 MDRO Source:: Abdomen Past Surgical History: Bowel Resection, Heart Catheterization With Stent, Hernia Repair Additional Past Surgical History / Comment(s): Colonoscopies, heart stents x 4, bowel resection with colostomy and colostomy reversal (removed a foot of pts colon)-2003, hernia repair with skin grafts and 2 fistula repairs (hospitalized for 1 year @[facility])-2010 MRSA 2015 in wounds. Past Anesthesia/Blood Transfusion Reactions: No Reported Reaction Additional Past Anesthesia/Blood Transfusion Reaction / Comment(s): Pt has received blood in past without reaction-2010 Date of Last Stent Placement:: 03/28/2015 Smoking Status: Former smoker - Past Family History Mother Family Medical History: Osteoarthritis (OA), Pneumonia Additional Family Medical History / Comment(s): osteoporosis. arthroscopy surgery for knee Father Family Medical History: Liver Disease, Renal Disease Additional Family Medical History / Comment(s): triple heart bypass. liver transplant. aortic aneursym Medications and Allergies Home Medications Medication Instructions Recorded Confirmed Type Sertraline [Zoloft] 150 mg PO HS@199910/19/13 08/07/20 History Atorvastatin [Lipitor] 80 mg PO HS@199903/25/15 08/07/20 History Nitroglycerin Sl Tabs [Nitrostat] 0.4 mg SL Q5M PRN 06/23/20 08/07/20 History Potassium Chloride ER [K-Dur 20] 40 meq PO DAILY@0700 06/23/20 08/07/20 History Spironolactone [Aldactone] 25 mg PO HS@199906/23/20 08/07/20 History Apixaban [Eliquis] 5 mg PO BID #60 tab 06/26/20 08/07/20 Rx Metoprolol Tartrate [Lopressor] 50 mg PO BID #60 tab 06/26/20 08/07/20 Rx buPROPion XL [Wellbutrin XL] 150 mg PO HS@199907/26/20 08/07/20 History traMADol HCL 50 mg PO BID PRN #4 tab 08/03/20 08/07/20 Rx Albuterol Inhaler [Ventolin Hfa 1 puff INHALATION RT-Q6H PRN 08/07/20 08/07/20 History Inhaler] Cefdinir [Omnicef] 300 mg PO BID@0700,1900 08/07/20 08/07/20 History Enulose Solution 10gm/15ml 20 gm PO DAILY PRN 08/07/20 08/07/20 History Enulose Solution 10gm/15ml 20 mg PO HS@199908/07/20 08/07/20 History Furosemide [Lasix] 60 mg PO BID 08/07/20 08/07/20 History Gabapentin [Neurontin] 300 mg PO HS@199908/07/20 08/07/20 History Insulin Detemir [Levemir Flextouch] 36 units SQ HS@199908/07/20 08/07/20 History Pantoprazole Sodium [Protonix] 40 mg PO DAILY@0600 08/07/20 08/07/20 History predniSONE See Taper PO DIRECTED 08/07/20 08/07/20 History Allergies Allergy/AdvReac Type Severity Reaction Status Date / Time adhesive Allergy "PLASTIC Verified 08/07/20 16:53 TAPE PEELS SKIN,PAPER TAPE IS OK" linezolid Allergy Unknown Verified 08/07/20 16:53 penicillin G Allergy Rash/Hives Verified 08/07/20 16:53 Cephalosporins AdvReac FEVER Verified 08/07/20 16:53 Physical Exam Vitals: Vital Signs Temp Pulse Pulse Resp BP BP Pulse Ox 08/08/20 08:37 97 08/08/20 03:41 97.0 F L 84 16 128/60 97 08/07/20 23:41 86 16 08/07/20 23:40 96.9 F L 85 17 118/74 96 08/07/20 19:55 96.8 F L 85 17 99/60 98 08/07/20 18:40 88 18 08/07/20 18:07 97.7 F 88 16 101/73 96 08/07/20 17:36 117/85 08/07/20 17:20 107/76 08/07/20 17:05 104/71 08/07/20 17:02 87 18 94/60 97 08/07/20 15:16 97.9 F 91 18 103/72 97 Intake and Output 08/07/20 08/08/20 08/08/20 22:59 06:59 14:59 Intake Total 222 510 Output Total 800 400 Balance 222 -800 110 Intake: IV 10 Invasive Line 1 10 Oral 222 500 Output: Urine 800 400 Other: Voiding Method Urinal Urinal Weight 156.489 kg 158.5 kg Results CBC & Chem 7: 08/08/20 07:28 08/08/20 07:28 Labs: Abnormal Lab Results - Last 24 Hours (Table) 08/07/20 08/07/20 08/07/20 Range/Units 15:37 15:37 15:37 Hgb 12.6 L (13.0-17.5) gm/dL MCHC (31.0-37.0) g/dL RDW 18.8 H (11.5-15.5) % Plt Count 142 L (150-450) k/uL Neutrophils # 8.5 H (1.3-7.7) k/uL Lymphocytes # 0.7 L (1.0-4.8) k/uL Nucleated RBCs (0-0) /100 WBC PT 13.1 H (9.0-12.0) sec INR 1.3 H (<1.2) BUN 67 H (9-20) mg/dL Creatinine 1.90 H (0.66-1.25) mg/dL Glucose 121 H (74-99) mg/dL POC Glucose (mg/dL) (75-99) mg/dL Magnesium 2.4 H (1.6-2.3) mg/dL Total Bilirubin 1.6 H (0.2-1.3) mg/dL Total Protein (6.3-8.2) g/dL Albumin 3.3 L (3.5-5.0) g/dL 08/07/20 08/07/20 08/08/20 Range/Units 18:14 20:56 07:28 Hgb 12.9 L (13.0-17.5) gm/dL MCHC 30.9 L (31.0-37.0) g/dL RDW 18.9 H (11.5-15.5) % Plt Count 135 L (150-450) k/uL Neutrophils # (1.3-7.7) k/uL Lymphocytes # (1.0-4.8) k/uL Nucleated RBCs 2 H (0-0) /100 WBC PT (9.0-12.0) sec INR (<1.2) BUN (9-20) mg/dL Creatinine (0.66-1.25) mg/dL Glucose (74-99) mg/dL POC Glucose (mg/dL) 124 H 182 H (75-99) mg/dL Magnesium (1.6-2.3) mg/dL Total Bilirubin (0.2-1.3) mg/dL Total Protein (6.3-8.2) g/dL Albumin (3.5-5.0) g/dL 08/08/20 Range/Units 07:28 Hgb (13.0-17.5) gm/dL MCHC (31.0-37.0) g/dL RDW (11.5-15.5) % Plt Count (150-450) k/uL Neutrophils # (1.3-7.7) k/uL Lymphocytes # (1.0-4.8) k/uL Nucleated RBCs (0-0) /100 WBC PT (9.0-12.0) sec INR (<1.2) BUN 61 H (9-20) mg/dL Creatinine 1.89 H (0.66-1.25) mg/dL Glucose (74-99) mg/dL POC Glucose (mg/dL) (75-99) mg/dL Magnesium (1.6-2.3) mg/dL Total Bilirubin 1.4 H (0.2-1.3) mg/dL Total Protein 6.1 L (6.3-8.2) g/dL Albumin 3.2 L (3.5-5.0) g/dL Thrombosis Risk Factor Assmnt - Choose All That Apply Each Factor Represents 1 point: Age 41-60 years Each Risk Factor Represents 2 Points: Patient confined to bed Each Risk Factor Represents 3 Points: Family history of DVT/PE Other congenital or acquired thrombophilia - If yes, enter type in comment: No Thrombosis Risk Factor Assessment Total Risk Factor Score: 6 Thrombosis Risk Factor Assessment Level: High Risk
[2020-08-08 20:47] LABS: Glucose,Whole Blood 119 mg/dL (75-99)
[2020-08-08] MEDS ORDERED: LORazepam 0.5 MG TAB PO PRN (20:47)
[2020-08-08] MEDS ORDERED: ACETAMINOPHEN TAB 325 MG TAB PO PRN (20:47)
[2020-08-08] MEDS ORDERED: NALOXONE 0.4 MG/ML 1 ML VIAL IV PRN (20:47)
[2020-08-08] MEDS ORDERED: LACTULOSE 20 GM/30 ML CUP PO PRN (20:47)
[2020-08-08] MEDS ORDERED: CALCIUM CARBONATE 500 MG CHEWABLE PO PRN (20:47)
[2020-08-08] MEDS ORDERED: ONDANSETRON 4 MG/2 ML VIAL IVP PRN (20:47)
[2020-08-08] MEDS ORDERED: MELATONIN 3 MG TABLET PO PRN (20:47)
[2020-08-08] MEDS ORDERED: FUROSEMIDE 10 MG/ML 4 ML VIAL IV SCH (21:00)
[2020-08-08] MEDS: GABAPENTIN 300 MG CAP PO SCH (21:10)
[2020-08-08] MEDS: ATORVASTATIN 80 MG TAB PO SCH (21:10)
[2020-08-08] MEDS: buPROPion XL 150 MG TAB.ER.24H PO SCH (21:10)
[2020-08-08] MEDS: traMADol 50 MG TAB PO PRN (21:10)
[2020-08-08] MEDS: SERTRALINE 50 MG TAB PO SCH (21:10)
[2020-08-08] MEDS: FUROSEMIDE 100 MG in SODIUM CHLORIDE 0.9% 90 ML IV SCH (21:32)
[2020-08-08] MEDS: INSULIN DETEMIR (LEVEMIR) 100 UNIT/ML SYR SQ SCH ×2 (21:32→21:38)
[2020-08-09] MEDS: FUROSEMIDE 100 MG in SODIUM CHLORIDE 0.9% 90 ML IV SCH ×3 (03:17→20:20)
[2020-08-09] MEDS: POTASSIUM CHLORIDE ER 20 MEQ TAB.ER PO SCH (06:22)
[2020-08-09] MEDS: PANTOPRAZOLE 40 MG TABLET PO SCH (06:22)
[2020-08-09] MEDS: INSULIN ASPART (NovoLOG) 100 UNIT/ML VIAL SQ SCH ×4 (06:27→20:20)
[2020-08-09 06:32] LABS: Glucose,Whole Blood 84 mg/dL (75-99)
[2020-08-09] MEDS: METOPROLOL TARTRATE 50 MG TAB PO SCH ×2 (08:24→20:26)
[2020-08-09] MEDS: APIXABAN 5 MG TAB PO SCH ×2 (08:24→20:26)
[2020-08-09] MEDS: SPIRONOLACTONE 25 MG TAB PO SCH (08:24)
[2020-08-09 08:44] LABS: Calcium 8.6 mg/dL (8.4-10.2); Magnesium 2.2 mg/dL (1.6-2.3); Potassium 3.6 mmol/L (3.5-5.1)
[2020-08-09] MEDS ORDERED: Potassium Replacement Protocol 1 EACH MISC MISCELLANE PRN (09:48)
[2020-08-09] MEDS ORDERED: POTASSIUM CHLORIDE ER 20 MEQ TAB.ER PO SCH (10:00)
[2020-08-09 11:40] LABS: Glucose,Whole Blood 91 mg/dL (75-99)
--- NOTE | 2020-08-09 13:41 | P.PN ---
Subjective HISTORY OF PRESENTING ILLNESS This is a pleasant 50-year-old male past medical history significant for very artery disease status post PCI of the LAD and circumflex artery 2014 he also has a chronic total occlusion of the RCA, chronic persistent atrial fibrillation on long-term anticoagulation, chronic diastolic heart failure, hypertension, dyslipidemia, diabetes mellitus and morbid obesity. He follows in the office with Dr. Wood. He is seen and examined sitting up in a recliner in no acute distress. He has no specific complaints today. He denies chest pain, shortness of breath, dizziness or palpitations. He states overall he feels "leather shaver". He is currently maintained on a Lasix infusion. 24-hour urine output is 2575 mL's. His weight is down 4 kg since admission. Blood pressure 120/75 heart rate 87 afebrile maintaining oxygen saturation on nasal cannula. Laboratory data reviewed, sodium 140, potassium 3.6, creatinine 1.76, magnesium 2.2 and proBNP 17,500. PHYSICAL EXAMINATION CONSTITUTIONAL: No apparent distress. Morbidly obese. HEENT: Head is normocephalic. Pupils are equal, round. Sclerae anicteric. Mucous membranes of the mouth are moist. No JVD. No carotid bruit. CHEST EXAMINATION: Bibasal rales, faint expiratory wheeze and no rhonchi. No chest wall tenderness is noted on palpation or with deep breathing. HEART EXAMINATION: Irregular rate and rhythm. S1, S2 heard. No murmurs, gallops or rub. EXTREMITIES: 2+ peripheral pulses, trace lower extremity edema non-pitting and no calf tenderness. ASSESSMENT Acute on chronic diastolic heart failure Chest pain Chronic persistent atrial fibrillation on long-term anticoagulation Chronic kidney disease Coronary artery disease status post PCI to the circumflex and LAD 2014 Hypertension Dyslipidemia Diabetes mellitus Pulmonary hypertension Morbid obesity, BMI 50 PLAN Recommend transition to IV push Lasix. Add Imdur 30 mg daily. Continue to document accurate intake and output along with daily weights. Nurse Practitioner note has been reviewed, I agree with a documented findings and plan of care. Patient was seen and examined. Objective - Vital Signs Vital signs: Vital Signs Temp 98.3 F 08/09/20 12:04 Pulse 87 08/09/20 12:04 Resp 16 08/09/20 13:21 BP 120/75 08/09/20 12:04 Pulse Ox 96 08/09/20 12:04 Intake & Output 08/08/20 08/09/20 08/09/20 18:59 06:59 18:59 Intake Total 1660 489.5 1747.5 Output Total 1275 1300 2300 Balance 385 -810.5 -552.5 Weight 152.4 kg Intake: IV 20 10 80 Furosemide 100 mg In 80 Sodium Chloride 0.9% 90 ml @ 10 MG/HR 10 mls/hr IV .Q10H [facility] Rx#: [id number] Invasive Line 1 20 10 Intake, IV Titration 107.5 87.5 Amount Furosemide 100 mg In 107.5 87.5 Sodium Chloride 0.9% 90 ml @ 10 MG/HR 10 mls/hr IV .Q10H [facility] Rx#: [id number] Oral [id number] Output: Urine 1275 1300 2300 Other: Voiding Method Urinal # Voids 1 - Labs CBC & Chem 7: 08/08/20 07:28 08/09/20 07:23 Labs: Abnormal Lab Results - Last 24 Hours (Table) 08/08/20 08/08/20 08/09/20 Range/Units 16:42 20:46 07:23 BUN 57 H (9-20) mg/dL Creatinine 1.76 H (0.66-1.25) mg/dL Glucose 73 L (74-99) mg/dL POC Glucose (mg/dL) 101 H 119 H (75-99) mg/dL
[2020-08-09] MEDS: ISOSORBIDE MONONITRATE ER 30 MG TAB.ER.24H PO SCH (15:02)
[2020-08-09 16:47] LABS: Glucose,Whole Blood 105 mg/dL (75-99)
[2020-08-09 18:16] LABS: Hemoglobin A1C 5.1 % (4.0-6.0)
--- NOTE | 2020-08-09 19:07 | P.PN ---
Progress Note - Text Progress Note Date: 08/09/20 History of presenting complaint: This is a pleasant 50-year-old patient with extensive medical history. Patient follows with visiting physicians. Dr. Chaney. Chronic stable medical conditions include diabetes with peripheral neuropathy, coronary artery disease with stent, COPD, hypertension, hyperlipidemia, chronic kidney disease, kidney stones,(s) sleep apnea does not use a device, multiple abdominal surgeries for hiatal hernia, also history of tracheostomy, peripheral arterial disease, diverticulosis,. 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 Normally uses a scooter or a walker to get about. Patient has chronic breakdown of superficial skin on the abdominal wall from scratching. Patient history of episode of left chest pain below the elbow lasting for about 10 minutes. It was like a grabbing sensation. No shortness or breath no dizziness no fever no chills no cough no perspiration. EMS did give him nitroglycerin but by that time his pain is significantly improved. No significant edema. Denies any obvious shortness of breath. Admitted with CHF exacerbation and atrial fibrillation uncontrolled. Put on Lasix drip increase beta ariella. Today-feeling better. Breathing improved. About 1500 mL in negative fluid balance. Eating 100% minimal edema. Atrial fibrillation rate controlled Review of systems: Was done for constitutional, cardiovascular, GI, pulmonary. relevant finding as above Active Medications Acetaminophen (Acetaminophen Tab 325 Mg Tab) 650 mg PO Q6HR PRN PRN Reason: Mild Pain or Fever > 100.5 Albuterol Sulfate (Albuterol Nebulized 2.5 Mg/3 Ml) 2.5 mg INHALATION RT-Q6H PRN PRN Reason: Shortness Of Breath Or Wheezing Last Admin: 08/08/20 22:17 Dose: 2.5 mg Documented by: Apixaban (Apixaban 5 Mg Tab) 5 mg PO BID [facility] Last Admin: 08/09/20 08:24 Dose: 5 mg Documented by: Atorvastatin Calcium (Atorvastatin 80 Mg Tab) 80 mg PO HS@1999 [facility] Last Admin: 08/08/20 21:10 Dose: 80 mg Documented by: Bupropion HCl (Bupropion Xl 150 Mg Tab.Er.24h) 150 mg PO HS@1999 [facility] Last Admin: 08/08/20 21:10 Dose: 150 mg Documented by: Calcium Carbonate/Glycine (Calcium Carbonate 500 Mg Chewable) 1,000 mg PO Q4HR PRN PRN Reason: Dyspepsia Gabapentin (Gabapentin 300 Mg Cap) 300 mg PO HS@2000 [facility] Last Admin: 08/08/20 21:10 Dose: 300 mg Documented by: Furosemide 100 mg/ Sodium (Chloride) 100 mls @ 10 mls/hr IV .Q10H [facility] Last Admin: 08/09/20 12:02 Dose: 10 mg/hr, 10 mls/hr Documented by: Insulin Aspart (Insulin Aspart (Novolog) 100 Unit/Ml Vial) 0 unit SQ [facility]; Protocol Last Admin: 08/09/20 17:14 Dose: Not Given Documented by: Insulin Detemir (Insulin Detemir (Levemir) 100 Unit/Ml Syr) 26 unit SQ [facility] Last Admin: 08/08/20 21:32 Dose: 26 unit Documented by: Isosorbide Mononitrate (Isosorbide Mononitrate Er 30 Mg Tab.Er.24h) 30 mg PO DAILY [facility] Last Admin: 08/09/20 15:02 Dose: 30 mg Documented by: Lactulose (Lactulose 20 Gm/30 Ml Cup) 20 gm PO DAILY PRN PRN Reason: Constipation Lorazepam (Lorazepam 0.5 Mg Tab) 0.5 mg PO Q6HR PRN PRN Reason: Anxiety Melatonin (Melatonin 3 Mg Tablet) 3 mg PO HS PRN PRN Reason: Insomnia Metoprolol Tartrate (Metoprolol Tartrate 50 Mg Tab) 50 mg PO BID [facility] Last Admin: 08/09/20 08:24 Dose: 50 mg Documented by: Miscellaneous Information (Potassium Replacement Protocol 1 Each Misc) 1 each MISCELLANE DAILY PRN; Protocol PRN Reason: Per Protocol Naloxone HCl (Naloxone 0.4 Mg/Ml 1 Ml Vial) 0.2 mg IV Q2M PRN PRN Reason: Opioid Reversal Nitroglycerin (Nitroglycerin Sl Tabs 0.4 Mg Tab) 0.4 mg SUBLINGUAL Q5M PRN PRN Reason: Chest Pain Ondansetron HCl (Ondansetron 4 Mg/2 Ml Vial) 4 mg IVP Q8HR PRN PRN Reason: Nausea And Vomiting Pantoprazole Sodium (Pantoprazole 40 Mg Tablet) 40 mg PO DAILY@0600 [facility] Last Admin: 08/09/20 06:22 Dose: 40 mg Documented by: Potassium Chloride (Potassium Chloride Er 20 Meq Tab.Er) 40 meq PO DAILY@0700 [facility] Last Admin: 08/09/20 06:22 Dose: 40 meq Documented by: Sertraline HCl (Sertraline 50 Mg Tab) 150 mg PO HS@2000 [facility] Last Admin: 08/08/20 21:10 Dose: 150 mg Documented by: Spironolactone (Spironolactone 25 Mg Tab) 25 mg PO DAILY [facility] Last Admin: 08/09/20 08:24 Dose: 25 mg Documented by: Tramadol HCl (Tramadol 50 Mg Tab) 50 mg PO BID PRN PRN Reason: Pain Last Admin: 08/08/20 21:10 Dose: 50 mg Documented by: Past medical history to include: Atrial fibrillation, coronary artery disease with stent, congestive heart failure EF 30-35%, COPD, DVT, hypertension, hyperlipidemia, chronic kidney disease, obstructive sleep apnea, hypothyroid, peripheral artery disease, chronic kidney disease stage III, kidney stones, DVT in left leg in 2004,: Abscess with bowel resection, multiple abdominal surgeries for hiatal hernia,. Bladder prolonged hospitalization and prolonged medical-related dependent, with a tracheostomy tube, peripheral arterial disease, colonic diverticulosis, iron deficiency anemia,. Diabetes with peripheral neuropathy Social history: Patient is on disability. Patient smoked for about 10 years and stopped in 2008. No alcohol. Patient lives alone. Does have a scooter and a walker Physical examination: VITAL SIGNS: 98.3, 87, 16, 120/75, 96% on 2 L GENERAL: Laying in bed, comfortable EYES: Pupils equal. Conjunctiva normal. NECK: JVD unable to assess; masses not palpable. HEART: Heart sounds irregular; mild edema. LUNGS: Respiratory rate increased; decreased breath sounds ABDOMEN: Soft, nontender, liver spleen not palpable, no masses palpable, distended, with superficial breakdown of skin, and multiple areas. PSYCH: Alert and oriented x3; mood and affect a bit tired EXTREMITIES: Pigmentation of the both lower extremity distally INVESTIGATIONS, reviewed in the clinical context: August 09: Potassium 3.6 bun 57 creatinine 1.76 proBNP 80351 White count 9.9 hemoglobin 12.6 platelets 142 potassium 4.4 bun 67 creatinine 1.90 ProBNP-24,900 EKG tracing personally reviewed by me-atrial flutter fibrillation with a rate of 107 Coronavirus [PCR]-not detected Chest x-ray film personally reviewed by [id number] prominence Previous testing: August 03: Bun 72 creatinine 2.58 2-D echocardiogram [06/24/2020]-atrial flutter, EF 55 have a 60%, moderate concentric LVH, some wall motion abnormality, moderate mitral regurgitation, moderate pulmonary hypertension Assessment: -Acute on chronic congestive heart exacerbation EF of 50-55% from diastolic dysfunction from underlying coronary artery disease. On Lasix drip. Strict I's and O's. Fluid restriction. Over 1500 negative fluid balance -Persistent atrial flutter fibrillation with ventricular rate uncontrolled/on presentation. Lopressor 75 mg twice a day. Continue eliquis. 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 With peripheral neuropathy. Resume Levemir. Follow Accu-Cheks. Additionally: Continue Lasix drip. Fluid restriction. Strict I's and O's. Repeat labs. Hopefully can be switched over to oral Lasix tomorrow.
[2020-08-09 20:06] LABS: Glucose,Whole Blood 86 mg/dL (75-99)
[2020-08-09] MEDS: buPROPion XL 150 MG TAB.ER.24H PO SCH (20:25)
[2020-08-09] MEDS: ATORVASTATIN 80 MG TAB PO SCH (20:25)
[2020-08-09] MEDS: traMADol 50 MG TAB PO PRN (20:26)
[2020-08-09] MEDS: GABAPENTIN 300 MG CAP PO SCH (20:26)
[2020-08-09] MEDS: SERTRALINE 50 MG TAB PO SCH (20:26)
[2020-08-09] MEDS: INSULIN DETEMIR (LEVEMIR) 100 UNIT/ML SYR SQ SCH (20:30)
[2020-08-10 02:55] LABS: Glucose,Whole Blood 133 mg/dL (75-99)
[2020-08-10] MEDS: FUROSEMIDE 100 MG in SODIUM CHLORIDE 0.9% 90 ML IV SCH (03:03)
[2020-08-10] MEDS: INSULIN ASPART (NovoLOG) 100 UNIT/ML VIAL SQ SCH ×4 (06:31→20:16)
[2020-08-10 06:32] LABS: Glucose,Whole Blood 124 mg/dL (75-99)
[2020-08-10] MEDS: POTASSIUM CHLORIDE ER 20 MEQ TAB.ER PO SCH (06:35)
[2020-08-10] MEDS: PANTOPRAZOLE 40 MG TABLET PO SCH (06:36)
[2020-08-10 08:26] LABS: Calcium 8.7 mg/dL (8.4-10.2); Potassium 3.9 mmol/L (3.5-5.1)
[2020-08-10] MEDS: APIXABAN 5 MG TAB PO SCH ×2 (08:28→20:15)
[2020-08-10] MEDS: METOPROLOL TARTRATE 50 MG TAB PO SCH ×2 (08:28→20:15)
[2020-08-10] MEDS: ISOSORBIDE MONONITRATE ER 30 MG TAB.ER.24H PO SCH (08:28)
[2020-08-10] MEDS: SPIRONOLACTONE 25 MG TAB PO SCH (08:28)
--- NOTE | 2020-08-10 10:58 | P.PN ---
Subjective HISTORY OF PRESENTING ILLNESS This is a pleasant 50-year-old male past medical history significant for very artery disease status post PCI of the LAD and circumflex artery 2014 he also has a chronic total occlusion of the RCA, chronic persistent atrial fibrillation on long-term anticoagulation, chronic diastolic heart failure, hypertension, dyslipidemia, diabetes mellitus and morbid obesity. He follows in the office with Dr. Wood. He is seen and examined resting comfortably lying flat in bed in no acute distress. He is exhausted. He states he has been up all night urinating. He denies symptoms of chest pain, shortness of breath, dizziness or palpitations. Blood pressure 122/68 heart rate 92 afebrile maintaining oxygen saturation on nasal cannula. Laboratory data reviewed, sodium 143, potassium 3.9, creatinine 1.91 and magnesium 2.1. 24-hour urine output 7775 mL. His weight is down 14 kg since admission. PHYSICAL EXAMINATION CONSTITUTIONAL: No apparent distress. Morbidly obese. HEENT: Head is normocephalic. Pupils are equal, round. Sclerae anicteric. Mucous membranes of the mouth are moist. No JVD. No carotid bruit. CHEST EXAMINATION: No rales, rhonchi or wheezes. No chest wall tenderness is noted on palpation or with deep breathing. HEART EXAMINATION: Irregular rate and rhythm. S1, S2 heard. No murmurs, gallops or rub. EXTREMITIES: 2+ peripheral pulses, trace lower extremity edema non-pitting and no calf tenderness. ASSESSMENT Acute on chronic diastolic heart failure Chest pain, atypical. Chronic persistent atrial fibrillation on long-term anticoagulation Chronic kidney disease Coronary artery disease status post PCI to the circumflex and LAD 2014 Hypertension Dyslipidemia Diabetes mellitus Pulmonary hypertension Morbid obesity, BMI 50 PLAN Transition to IV push Lasix 60 mg 3 times a day. Follow renal function and electrolytes in the morning. Fluid restriction can be discontinued. Nurse Practitioner note has been reviewed, I agree with a documented findings and plan of care. Patient was seen and examined. Objective - Vital Signs Vital signs: Vital Signs Temp 97.4 F L 08/10/20 08:00 Pulse 92 08/10/20 08:00 Resp 18 08/10/20 08:00 BP 122/68 08/10/20 08:00 Pulse Ox 95 08/10/20 08:00 Intake & Output 02/23/21 02/24/21 02/24/21 18:59 06:59 18:59 Intake Total 2484.5 1209.167 120 Output Total 4075 3700 400 Balance -1590.5 -2490.833 -280 Weight 144.6 kg Intake: IV 80 Furosemide 100 mg In 80 Sodium Chloride 0.9% 90 ml @ 10 MG/HR 10 mls/hr IV .Q10H [facility] Rx#: [id number] Intake, IV Titration 87.5 150.167 Amount Furosemide 100 mg In 87.5 150.167 Sodium Chloride 0.9% 90 ml @ 10 MG/HR 10 mls/hr IV .Q10H [facility] Rx#: [id number] Oral 2317 1059 120 Output: Urine 4075 3700 400 Other: Voiding Method Urinal # Voids 1 - Labs CBC & Chem 7: 08/08/20 07:28 08/10/20 07:36 Labs: Abnormal Lab Results - Last 24 Hours (Table) 08/09/20 08/10/20 08/10/20 Range/Units 16:46 02:53 06:30 Carbon Dioxide (22-30) mmol/L BUN (9-20) mg/dL Creatinine (0.66-1.25) mg/dL Glucose (74-99) mg/dL POC Glucose (mg/dL) 105 H 133 H 124 H (75-99) mg/dL 08/10/20 Range/Units 07:36 Carbon Dioxide 33 H (22-30) mmol/L BUN 54 H (9-20) mg/dL Creatinine 1.91 H (0.66-1.25) mg/dL Glucose 132 H (74-99) mg/dL POC Glucose (mg/dL) (75-99) mg/dL
[2020-08-10 12:00] LABS: Glucose,Whole Blood 117 mg/dL (75-99)
[2020-08-10] MEDS: FUROSEMIDE 10 MG/ML 10 ML VIAL IV SCH ×2 (16:29→22:50)
[2020-08-10 16:34] LABS: Glucose,Whole Blood 107 mg/dL (75-99)
--- NOTE | 2020-08-10 19:50 | P.PN ---
Progress Note - Text Progress Note Date: 08/10/20 History of presenting complaint: This is a pleasant 50-year-old patient with extensive medical history. Patient follows with visiting physicians. Dr. Chaney. Chronic stable medical conditions include diabetes with peripheral neuropathy, coronary artery disease with stent, COPD, hypertension, hyperlipidemia, chronic kidney disease, kidney stones,(s) sleep apnea does not use a device, multiple abdominal surgeries for hiatal hernia, also history of tracheostomy, peripheral arterial disease, diverticulosis,. 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 Normally uses a scooter or a walker to get about. Patient has chronic breakdown of superficial skin on the abdominal wall from scratching. Patient history of episode of left chest pain below the elbow lasting for about 10 minutes. It was like a grabbing sensation. No shortness or breath no dizziness no fever no chills no cough no perspiration. EMS did give him nitroglycerin but by that time his pain is significantly improved. No significant edema. Denies any obvious shortness of breath. Admitted with CHF exacerbation and atrial fibrillation uncontrolled. Put on Lasix drip increase beta ariella. Today-breathing much improved. Swished from IV Lasix drip to IV Lasix bolus. Over 5 L in negative fluid balance. Good oral intake. Review of systems: Was done for constitutional, cardiovascular, GI, pulmonary. relevant finding as above Active Medications Acetaminophen (Acetaminophen Tab 325 Mg Tab) 650 mg PO Q6HR PRN PRN Reason: Mild Pain or Fever > 100.5 Albuterol Sulfate (Albuterol Nebulized 2.5 Mg/3 Ml) 2.5 mg INHALATION RT-Q6H PRN PRN Reason: Shortness Of Breath Or Wheezing Last Admin: 08/08/20 22:17 Dose: 2.5 mg Documented by: Apixaban (Apixaban 5 Mg Tab) 5 mg PO BID [facility] Last Admin: 08/10/20 08:28 Dose: 5 mg Documented by: Atorvastatin Calcium (Atorvastatin 80 Mg Tab) 80 mg PO HS@1999 [facility] Last Admin: 08/09/20 20:25 Dose: 80 mg Documented by: Bupropion HCl (Bupropion Xl 150 Mg Tab.Er.24h) 150 mg PO HS@1999 [facility] Last Admin: 08/09/20 20:25 Dose: 150 mg Documented by: Calcium Carbonate/Glycine (Calcium Carbonate 500 Mg Chewable) 1,000 mg PO Q4HR PRN PRN Reason: Dyspepsia Furosemide (Furosemide 10 Mg/Ml 10 Ml Vial) 60 mg IV Q8HR [facility] Last Admin: 08/10/20 16:29 Dose: 60 mg Documented by: Gabapentin (Gabapentin 300 Mg Cap) 300 mg PO HS@2000 [facility] Last Admin: 08/09/20 20:26 Dose: 300 mg Documented by: Insulin Aspart (Insulin Aspart (Novolog) 100 Unit/Ml Vial) 0 unit SQ [facility]; Protocol Last Admin: 08/10/20 17:35 Dose: Not Given Documented by: Insulin Detemir (Insulin Detemir (Levemir) 100 Unit/Ml Syr) 26 unit SQ [facility] Last Admin: 08/09/20 20:30 Dose: Not Given Documented by: Isosorbide Mononitrate (Isosorbide Mononitrate Er 30 Mg Tab.Er.24h) 30 mg PO DAILY [facility] Last Admin: 08/10/20 08:28 Dose: 30 mg Documented by: Lactulose (Lactulose 20 Gm/30 Ml Cup) 20 gm PO DAILY PRN PRN Reason: Constipation Lorazepam (Lorazepam 0.5 Mg Tab) 0.5 mg PO Q6HR PRN PRN Reason: Anxiety Melatonin (Melatonin 3 Mg Tablet) 3 mg PO HS PRN PRN Reason: Insomnia Metoprolol Tartrate (Metoprolol Tartrate 50 Mg Tab) 50 mg PO BID [facility] Last Admin: 08/10/20 08:28 Dose: 50 mg Documented by: Miscellaneous Information (Potassium Replacement Protocol 1 Each Misc) 1 each MISCELLANE DAILY PRN; Protocol PRN Reason: Per Protocol Naloxone HCl (Naloxone 0.4 Mg/Ml 1 Ml Vial) 0.2 mg IV Q2M PRN PRN Reason: Opioid Reversal Nitroglycerin (Nitroglycerin Sl Tabs 0.4 Mg Tab) 0.4 mg SUBLINGUAL Q5M PRN PRN Reason: Chest Pain Ondansetron HCl (Ondansetron 4 Mg/2 Ml Vial) 4 mg IVP Q8HR PRN PRN Reason: Nausea And Vomiting Pantoprazole Sodium (Pantoprazole 40 Mg Tablet) 40 mg PO DAILY@0600 [facility] Last Admin: 08/10/20 06:36 Dose: 40 mg Documented by: Potassium Chloride (Potassium Chloride Er 20 Meq Tab.Er) 40 meq PO DAILY@0700 [facility] Last Admin: 08/10/20 06:35 Dose: 40 meq Documented by: Sertraline HCl (Sertraline 50 Mg Tab) 150 mg PO HS@2000 [facility] Last Admin: 08/09/20 20:26 Dose: 150 mg Documented by: Spironolactone (Spironolactone 25 Mg Tab) 25 mg PO DAILY [facility] Last Admin: 08/10/20 08:28 Dose: 25 mg Documented by: Tramadol HCl (Tramadol 50 Mg Tab) 50 mg PO BID PRN PRN Reason: Pain Last Admin: 08/09/20 20:26 Dose: 50 mg Documented by: Past medical history to include: Atrial fibrillation, coronary artery disease with stent, congestive heart failure EF 30-35%, COPD, DVT, hypertension, hyperlipidemia, chronic kidney disease, obstructive sleep apnea, hypothyroid, peripheral artery disease, chronic kidney disease stage III, kidney stones, DVT in left leg in 2004,: Abscess with bowel resection, multiple abdominal surgeries for hiatal hernia,. Bladder prolonged hospitalization and prolonged medical-related dependent, with a tracheostomy tube, peripheral arterial disease, colonic diverticulosis, iron deficiency anemia,. Diabetes with peripheral neuropathy Social history: Patient is on disability. Patient smoked for about 10 years and stopped in 2008. No alcohol. Patient lives alone. Does have a scooter and a walker Physical examination: VITAL SIGNS: 97.4, 92, 18, 122/68, 95% on 2 L GENERAL: Laying in bed, comfortable EYES: Pupils equal. Conjunctiva normal. NECK: JVD unable to assess; masses not palpable. HEART: Heart sounds irregular; minimal edema. LUNGS: Respiratory rate increased; decreased breath sounds ABDOMEN: Soft, nontender, liver spleen not palpable, no masses palpable, distended, with superficial breakdown of skin, and multiple areas. PSYCH: Alert and oriented x3; mood and affect a bit tired EXTREMITIES: Pigmentation of the both lower extremity distally INVESTIGATIONS, reviewed in the clinical context: August 10: Potassium 3.9 creatinine 1.91 August 09: Potassium 3.6 bun 57 creatinine 1.76 proBNP 68214 White count 9.9 hemoglobin 12.6 platelets 142 potassium 4.4 bun 67 creatinine 1.90 ProBNP-24,900 EKG tracing personally reviewed by me-atrial flutter fibrillation with a rate of 107 Coronavirus [PCR]-not detected Chest x-ray film personally reviewed by [id number] prominence Previous testing: August 03: Bun 72 creatinine 2.58 2-D echocardiogram [06/24/2020]-atrial flutter, EF 55 have a 60%, moderate concentric LVH, some wall motion abnormality, moderate mitral regurgitation, moderate pulmonary hypertension Assessment: -Acute on chronic congestive heart exacerbation EF of 50-55% from diastolic dysfunction from underlying coronary artery disease. On Lasix drip. Changed to IV Lasix bolus. Overall 5 L in negative fluid balance -Persistent atrial flutter fibrillation with ventricular rate uncontrolled/on presentation. Lopressor 75 mg twice a day. Continue eliquis. 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 With peripheral neuropathy. Resume Levemir. Follow Accu-Cheks. Much improved. Discussed with the patient. Hopefully discharge tomorrow.
[2020-08-10 20:15] LABS: Glucose,Whole Blood 121 mg/dL (75-99)
[2020-08-10] MEDS: buPROPion XL 150 MG TAB.ER.24H PO SCH (20:15)
[2020-08-10] MEDS: GABAPENTIN 300 MG CAP PO SCH (20:15)
[2020-08-10] MEDS: ATORVASTATIN 80 MG TAB PO SCH (20:15)
[2020-08-10] MEDS: SERTRALINE 50 MG TAB PO SCH (20:15)
[2020-08-10] MEDS: INSULIN DETEMIR (LEVEMIR) 100 UNIT/ML SYR SQ SCH (20:16)
[2020-08-11 03:05] VITALS: RESP 18
[2020-08-11 06:13] LABS: Glucose,Whole Blood 86 mg/dL (75-99)
[2020-08-11] MEDS: INSULIN ASPART (NovoLOG) 100 UNIT/ML VIAL SQ SCH ×2 (06:18→12:12)
[2020-08-11] MEDS: POTASSIUM CHLORIDE ER 20 MEQ TAB.ER PO SCH (06:22)
[2020-08-11] MEDS: PANTOPRAZOLE 40 MG TABLET PO SCH (06:22)
[2020-08-11] MEDS: ISOSORBIDE MONONITRATE ER 30 MG TAB.ER.24H PO SCH (08:33)
[2020-08-11] MEDS: METOPROLOL TARTRATE 50 MG TAB PO SCH (08:33)
[2020-08-11] MEDS: FUROSEMIDE 10 MG/ML 10 ML VIAL IV SCH (08:34)
[2020-08-11] MEDS: APIXABAN 5 MG TAB PO SCH (08:34)
[2020-08-11] MEDS: SPIRONOLACTONE 25 MG TAB PO SCH (08:34)
[2020-08-11 09:44] LABS: Calcium 9.1 mg/dL (8.4-10.2); Potassium 3.7 mmol/L (3.5-5.1)
--- NOTE | 2020-08-11 10:05 | P.PN ---
Subjective HISTORY OF PRESENTING ILLNESS This is a pleasant 50-year-old male past medical history significant for very artery disease status post PCI of the LAD and circumflex artery 2014 he also has a chronic total occlusion of the RCA, chronic persistent atrial fibrillation on long-term anticoagulation, chronic diastolic heart failure, hypertension, dyslipidemia, diabetes mellitus and morbid obesity. He follows in the office with Dr. Wood. He is seen and examined resting comfortably lying flat in bed in no acute distress. He feels better today than he did yesterday. He denies shortness of breath. No chest pain, dizziness or palpitations. Blood pressure 103/69 heart rate 80 afebrile and maintaining oxygen saturation on nasal cannula. Urine output for the past 24 hours was 2150cc. Laboratory data reviewed, sodium 143, potassium 3.7, creatinine 1.94. PHYSICAL EXAMINATION CONSTITUTIONAL: No apparent distress. Morbidly obese. HEENT: Head is normocephalic. Pupils are equal, round. Sclerae anicteric. Mucous membranes of the mouth are moist. No JVD. No carotid bruit. CHEST EXAMINATION: No rales, rhonchi or wheezes. No chest wall tenderness is noted on palpation or with deep breathing. HEART EXAMINATION: Irregular rate and rhythm. S1, S2 heard. No murmurs, gallops or rub. EXTREMITIES: 2+ peripheral pulses, trace edema on the right, no edema on the left, bilateral lower extremity color changes due to venous insufficiency and no calf tenderness. ASSESSMENT Acute on chronic diastolic heart failure Chest pain, atypical. Chronic persistent atrial fibrillation on long-term anticoagulation Chronic kidney disease Coronary artery disease status post PCI to the circumflex and LAD 2014 Hypertension Dyslipidemia Diabetes mellitus Pulmonary hypertension Morbid obesity, BMI 50 PLAN Transition to oral diuretics, 60 mg PO BID. Increase activity and if his breathing continues to remain stable he can be discharged this afternoon. Follow up with Dr. Wood upon discharge. Nurse Practitioner note has been reviewed, I agree with a documented findings and plan of care. Patient was seen and examined. Objective - Vital Signs Vital signs: Vital Signs Temp 98.0 F 08/11/20 03:04 Pulse 80 08/11/20 03:04 Resp 18 08/11/20 03:04 BP 103/69 08/11/20 03:04 Pulse Ox 96 08/11/20 03:04 Intake & Output 08/10/20 08/11/20 08/11/20 18:59 06:59 18:59 Intake Total 1340 10 120 Output Total 400 1750 Balance 940 -1740 120 Weight 144.4 kg Intake: IV 10 Invasive Line 1 10 Oral 1340 120 Output: Urine 400 1750 Other: Voiding Method Urinal Urinal - Labs CBC & Chem 7: 08/08/20 07:28 08/11/20 09:11 Labs: Abnormal Lab Results - Last 24 Hours (Table) 08/10/20 08/10/20 08/10/20 Range/Units 11:59 16:32 20:14 Carbon Dioxide (22-30) mmol/L BUN (9-20) mg/dL Creatinine (0.66-1.25) mg/dL Glucose (74-99) mg/dL POC Glucose (mg/dL) 117 H 107 H 121 H (75-99) mg/dL 08/11/20 Range/Units 09:11 Carbon Dioxide 33 H (22-30) mmol/L BUN 50 H (9-20) mg/dL Creatinine 1.94 H (0.66-1.25) mg/dL Glucose 134 H (74-99) mg/dL POC Glucose (mg/dL) (75-99) mg/dL
[2020-08-11 10:43] VITALS: TEMP 97.5
[2020-08-11 11:39] LABS: Glucose,Whole Blood 100 mg/dL (75-99)
[2020-08-11 13:18] VITALS: BP 114/71; PULSE 87
[2020-08-11] MEDS ORDERED: FUROSEMIDE 20 MG TAB PO SCH (16:00)
[2020-08-11 16:49] LABS: Glucose,Whole Blood 95 mg/dL (75-99)
--- NOTE | 2020-08-11 23:18 | P.DS ---
Providers Date of admission: 08/10/20 08:45 Expected date of discharge: 08/11/20 Attending physician: Vamshi Barrera Consults: 08/07/20 16:55 Consult Physician Urgent Consulting Provider: Frank Reece Consult Reason/Comments: chest pain, CHF Do you want consulting provider notified?: Yes Primary care physician: [facility]: History of presenting complaint: This is a pleasant 50-year-old patient with extensive medical history. Patient follows with visiting physicians. Dr. Chaney. Chronic stable medical conditions include diabetes with peripheral neuropathy, coronary artery disease with stent, COPD, hypertension, hyperlipidemia, chronic kidney disease, kidney stones,(s) sleep apnea does not use a device, multiple abdominal surgeries for hiatal hernia, also history of tracheostomy, peripheral arterial disease, diverticulosis,. 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 Normally uses a scooter or a walker to get about. Patient has chronic breakdown of superficial skin on the abdominal wall from scratching. Patient history of episode of left chest pain below the elbow lasting for about 10 minutes. It was like a grabbing sensation. No shortness or breath no dizziness no fever no chills no cough no perspiration. EMS did give him nitroglycerin but by that time his pain is significantly improved. No significant edema. Denies any obvious shortness of breath. Admitted with CHF exacerbation and atrial fibrillation uncontrolled. Put on Lasix drip. increase beta ariella.Over 5 L in negative fluid balance Today-doing well. Comfortable. Laying flat. Edema greatly improved. Cleared by currently. Discussed with the patient. Consultation: Dr. Shepherd from cardiology Past medical history to include: Atrial fibrillation, coronary artery disease with stent, congestive heart failure EF 30-35%, COPD, DVT, hypertension, hyperlipidemia, chronic kidney disease, obstructive sleep apnea, hypothyroid, peripheral artery disease, chronic kidney disease stage III, kidney stones, DVT in left leg in 2004,: Abscess with bowel resection, multiple abdominal surgeries for hiatal hernia,. Bladder prolonged hospitalization and prolonged medical-related dependent, with a tracheostomy tube, peripheral arterial disease, colonic diverticulosis, iron deficiency anemia,. Diabetes with peripheral neuropathy Social history: Patient is on disability. Patient smoked for about 10 years and stopped in 2008. No alcohol. Patient lives alone. Does have a scooter and a walker Physical examination: VITAL SIGNS: 9 97.5, 87, 18, 114/71, 97% to liters GENERAL: Laying in bed, comfortable EYES: Pupils equal. Conjunctiva normal. NECK: JVD unable to assess; masses not palpable. HEART: Heart sounds irregular; minimal edema. LUNGS: Respiratory rate increased; decreased breath sounds ABDOMEN: Soft, nontender, liver spleen not palpable, no masses palpable, distended, with superficial breakdown of skin, and multiple areas. PSYCH: Alert and oriented x3; mood and affect a bit tired EXTREMITIES: Pigmentation of the both lower extremity distally INVESTIGATIONS, reviewed in the clinical context: Family 25: Potassium 3.7 creatinine 1.94. Accu-Cheks 100, 95 August 10: Potassium 3.9 creatinine 1.91 August 09: Potassium 3.6 bun 57 creatinine 1.76 proBNP 03392 White count 9.9 hemoglobin 12.6 platelets 142 potassium 4.4 bun 67 creatinine 1.90 ProBNP-24,900 EKG tracing personally reviewed by me-atrial flutter fibrillation with a rate of 107 Coronavirus [PCR]-not detected Chest x-ray film personally reviewed by [id number] prominence Previous testing: August 03: Bun 72 creatinine 2.58 2-D echocardiogram [06/24/2020]-atrial flutter, EF 55 have a 60%, moderate concentric LVH, some wall motion abnormality, moderate mitral regurgitation, moderate pulmonary hypertension Assessment: -Acute on chronic congestive heart exacerbation EF of 50-55% from diastolic dysfunction from underlying coronary artery disease. Responded to Lasix drip. -Persistent atrial flutter fibrillation with ventricular rate uncontrolled/on presentation. Lopressor 50 mg twice a day. Continue eliquis. 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 With peripheral neuropathy. Dose of Levemir cutback to 24 units daily at bedtime Disposition: Home with [facility] Plan - Discharge Summary Discharge Rx Participant: No New Discharge Prescriptions: New Isosorbide Mononitrate ER [Imdur] 30 mg PO DAILY #30 tab.er.24h Continue Sertraline [Zoloft] 150 mg PO HS@1999 Atorvastatin [Lipitor] 80 mg PO HS@1999 Nitroglycerin Sl Tabs [Nitrostat] 0.4 mg SL Q5M PRN PRN Reason: Chest Pain Potassium Chloride ER [K-Dur 20] 40 meq PO DAILY@0700 Spironolactone [Aldactone] 25 mg PO HS@1999 Apixaban [Eliquis] 5 mg PO BID #60 tab Metoprolol Tartrate [Lopressor] 50 mg PO BID #60 tab buPROPion XL [Wellbutrin XL] 150 mg PO HS@1999 traMADol HCL 50 mg PO BID PRN #4 tab PRN Reason: Pain Albuterol Inhaler [Ventolin Hfa Inhaler] 1 puff INHALATION RT-Q6H PRN PRN Reason: Shortness Of Breath Or Wheezing Furosemide [Lasix] 60 mg PO BID Pantoprazole Sodium [Protonix] 40 mg PO DAILY@0600 Gabapentin [Neurontin] 300 mg PO HS@1999 Enulose Solution 10gm/15ml 20 mg PO HS@1999 Enulose Solution 10gm/15ml 20 gm PO DAILY PRN PRN Reason: Constipation Changed Insulin Detemir [Levemir Flextouch] 24 units SQ HS@1999 #0 Discontinued Cefdinir [Omnicef] 300 mg PO BID@0700,1900 predniSONE See Taper PO DIRECTED Discharge Medication List Sertraline [Zoloft] 150 mg PO HS@199910/19/13 [History] Atorvastatin [Lipitor] 80 mg PO HS@199903/25/15 [History] Nitroglycerin Sl Tabs [Nitrostat] 0.4 mg SL Q5M PRN 06/23/20 [History] Potassium Chloride ER [K-Dur 20] 40 meq PO DAILY@0700 06/23/20 [History] Spironolactone [Aldactone] 25 mg PO HS@199906/23/20 [History] Apixaban [Eliquis] 5 mg PO BID #60 tab 06/26/20 [Rx] Metoprolol Tartrate [Lopressor] 50 mg PO BID #60 tab 06/26/20 [Rx] buPROPion XL [Wellbutrin XL] 150 mg PO HS@199907/26/20 [History] traMADol HCL 50 mg PO BID PRN #4 tab 08/03/20 [Rx] Albuterol Inhaler [Ventolin Hfa Inhaler] 1 puff INHALATION RT-Q6H PRN 08/07/20 [History] Enulose Solution 10gm/15ml 20 gm PO DAILY PRN 08/07/20 [History] Enulose Solution 10gm/15ml 20 mg PO HS@199908/07/20 [History] Furosemide [Lasix] 60 mg PO BID 08/07/20 [History] Gabapentin [Neurontin] 300 mg PO HS@199908/07/20 [History] Pantoprazole Sodium [Protonix] 40 mg PO DAILY@0600 08/07/20 [History] Insulin Detemir [Levemir Flextouch] 24 units SQ HS@1999 #0 08/11/20 [Rx] Isosorbide Mononitrate ER [Imdur] 30 mg PO DAILY #30 tab.er.24h 08/11/20 [Rx] Follow up Appointment(s)/Referral(s): Alvin Wood MD [STAFF PHYSICIAN] - 2 Weeks Eleazar Bhatt MD [REFERRING] - 1-2 days Patient Instructions/Handouts: Heart Failure (DC), Chronic Wounds (DC) Activity/Diet/Wound Care/Special Instructions: Home Care [facility] - [phone] bmp - 3 days fluid restrict 2000 cc/day Discharge Disposition: HOME SELF-CARE
== END 2020-08-11 18:54 | disposition home or self-care (01) | DRG 291 ==
LOC: EC 15:10 → 3SCARD 16:58 → OBSVTOIN 08-10 08:45
PROVIDERS: ADMIT Hospitalist; ATTEND Hospitalist
DX: I13.2 Hypertensive heart and chronic kidney disease with heart failure and with stage 5 chronic kidney disease, or end stage renal disease (principal); I50.33 Acute on chronic diastolic (congestive) heart failure; I48.19 Other persistent atrial fibrillation; I48.92 Unspecified atrial flutter; Z68.43 Body mass index [BMI] 50.0-59.9, adult; J98.11 Atelectasis; E03.9 Hypothyroidism, unspecified; E11.22 Type 2 diabetes mellitus with diabetic chronic kidney disease; E11.42 Type 2 diabetes mellitus with diabetic polyneuropathy; E11.51 Type 2 diabetes mellitus with diabetic peripheral angiopathy without gangrene; E11.621 Type 2 diabetes mellitus with foot ulcer; E11.622 Type 2 diabetes mellitus with other skin ulcer; E66.01 Morbid (severe) obesity due to excess calories; E78.5 Hyperlipidemia, unspecified; F17.210 Nicotine dependence, cigarettes, uncomplicated; G47.33 Obstructive sleep apnea (adult) (pediatric); I25.10 Atherosclerotic heart disease of native coronary artery without angina pectoris; I25.2 Old myocardial infarction; I25.82 Chronic total occlusion of coronary artery; I27.20 Pulmonary hypertension, unspecified; Z23 Encounter for immunization; J44.9 Chronic obstructive pulmonary disease, unspecified; Z20.822 Contact with and (suspected) exposure to COVID-19; K57.30 Diverticulosis of large intestine without perforation or abscess without bleeding; L97.529 Non-pressure chronic ulcer of other part of left foot with unspecified severity; L98.492 Non-pressure chronic ulcer of skin of other sites with fat layer exposed; N18.30 Chronic kidney disease, stage 3 unspecified; Z87.442 Personal history of urinary calculi; Z79.01 Long term (current) use of anticoagulants; Z79.4 Long term (current) use of insulin; Z79.899 Other long term (current) drug therapy; Z82.62 Family history of osteoporosis; Z86.14 Personal history of Methicillin resistant Staphylococcus aureus infection; Z95.5 Presence of coronary angioplasty implant and graft; Z60.2 Problems related to living alone; Z82.61 Family history of arthritis; Z83.6 Family history of other diseases of the respiratory system; Z84.1 Family history of disorders of kidney and ureter; Z83.79 Family history of other diseases of the digestive system; Z82.49 Family history of ischemic heart disease and other diseases of the circulatory system; Z90.49 Acquired absence of other specified parts of digestive tract; K57.90 Diverticulosis of intestine, part unspecified, without perforation or abscess without bleeding; Z88.1 Allergy status to other antibiotic agents; Z88.0 Allergy status to penicillin; F32.9 Major depressive disorder, single episode, unspecified
CPT/HCPCS: 36415; 71046; 80048; 80053; 83036; 83735; 83880; 84484; 85025; 85610; 85730; 87635; 90686; 93005; 94640; 94760; 96360; 99285

== ENCOUNTER 2020-09-07 04:17 | Inpatient (IN) | payer MEDICARE, OTHER ==
--- NOTE | 2020-09-07 05:17 | ED ---
General Adult HPI - General Chief complaint: Shortness of Breath Stated complaint: SOB Time Seen by Provider: 09/07/20 04:22 Source: patient, EMS Mode of arrival: EMS Limitations: physical limitation - History of Present Illness Initial comments: This patient is a 50-year-old man who presents with complaint of having abdominal and lower extremity pain and swelling. He also feels that he is getting short of breath. He had identical symptoms weeks ago and states that he had to be admitted here to have fluid drained. Patient states she has history o f some underlying congestive heart failure and kidney disease. He has not noted chest pain, dyspnea or palpitations. No fever or chills. No change in urination or bowel movements. -: days(s) Location: abdomen, left, right, lower extremity Radiation: non-radiation Quality: aching Consistency: constant Improves with: none Worsens with: none Associated Symptoms: denies other symptoms Treatments Prior to Arrival: none - Related Data Home Medications Medication Instructions Recorded Confirmed Sertraline [Zoloft] 150 mg PO HS@199910/19/13 08/07/20 Atorvastatin [Lipitor] 80 mg PO HS@199903/25/15 08/07/20 Nitroglycerin Sl Tabs [Nitrostat] 0.4 mg SL Q5M PRN 06/23/20 08/07/20 Potassium Chloride ER [K-Dur 20] 40 meq PO DAILY@0706/23/20 08/07/20 Spironolactone [Aldactone] 25 mg PO HS@199906/23/20 08/07/20 buPROPion XL [Wellbutrin XL] 150 mg PO HS@199907/26/20 08/07/20 Albuterol Inhaler [Ventolin Hfa 1 puff INHALATION RT-Q6H PRN 08/07/20 08/07/20 Inhaler] Enulose Solution 10gm/15ml 20 gm PO DAILY PRN 08/07/20 08/07/20 Enulose Solution 10gm/15ml 20 mg PO HS@199908/07/20 08/07/20 Furosemide [Lasix] 60 mg PO BID 08/07/20 08/07/20 Gabapentin [Neurontin] 300 mg PO HS@199908/07/20 08/07/20 Pantoprazole Sodium [Protonix] 40 mg PO DAILY@0608/07/2021 Previous Rx's Medication Instructions Recorded Apixaban [Eliquis] 5 mg PO BID #60 tab 06/26/20 Metoprolol Tartrate [Lopressor] 50 mg PO BID #60 tab 06/26/20 traMADol HCL 50 mg PO BID PRN #4 tab 08/03/20 Insulin Detemir [Levemir Flextouch] 24 units SQ HS@2000 #0 08/11/20 Isosorbide Mononitrate ER [Imdur] 30 mg PO DAILY #30 tab.er.24h 08/11/20 Allergies Allergy/AdvReac Type Severity Reaction Status Date / Time adhesive Allergy "PLASTIC Verified 08/07/20 16:53 TAPE PEELS SKIN,PAPER TAPE IS OK" linezolid Allergy Unknown Verified 08/07/20 16:53 penicillin G Allergy Rash/Hives Verified 08/07/20 16:53 Cephalosporins AdvReac FEVER Verified 08/07/20 16:53 Review of Systems ROS Statement: Those systems with pertinent positive or pertinent negative responses have been documented in the HPI. ROS Other: All systems not noted in ROS Statement are negative. Constitutional: Denies: fever, chills Respiratory: Reports: dyspnea. Denies: cough, wheezes Cardiovascular: Reports: orthopnea, edema. Denies: chest pain, palpitations, syncope Gastrointestinal: Reports: abdominal pain. Denies: nausea, vomiting, diarrhea, constipation Genitourinary: Denies: dysuria, hematuria Musculoskeletal: Denies: back pain Skin: Denies: rash Neurological: Denies: headache, weakness, numbness Past Medical History Past Medical History: Atrial Fibrillation, Asthma, Coronary Artery Disease (CAD), Chest Pain / Angina, Heart Failure, COPD, Diabetes Mellitus, Deep Vein Thrombosis (DVT), Hyperlipidemia, Hypertension, Myocardial Infarction ([place]), Re nal Disease, Sleep Apnea/CPAP/BIPAP, Thyroid Disorder, Vascular Disorder Additional Past Medical History / Comment(s): CHF, tracheobronchitis, CKD stage III, kidney stones, DVT L leg in 2004, KAMRYN without device use, colon abscess with bowel resection, multiple abdominal surgeries for a hiatal hernia that was complicated by prolonged hospitalization and prolonged ventilator dependent respiratory failure requiring a tracheostomy tube insertion, pvd-lower legs discolored/edematous, diverticular disease, chronic iron deficiency anemia, vertigo at times, Last Myocardial Infarction Date:: History of Any Multi-Drug Resistant Organisms: MRSA Date of last positivie culture/infection: 02/01/15 MDRO Source:: Abdomen Past Surgical History: Bowel Resection, Heart Catheterization With Stent, Hernia Repair Additional Past Surgical History / Comment(s): Colonoscopies, heart stents x 4, bowel resection with colostomy and colostomy reversal (removed a foot of pts colon)-2003, hernia repair with skin grafts and 2 fistula repairs (hospitalized for 1 year @[facility])-2010 MRSA 2015 in wounds. Past Anesthesia/Blood Transfusion Reactions: No Reported Reaction Additional Past Anesthesia/Blood Transfusion Reaction / Comment(s): Pt has received blood in past without reaction-2010 Date of Last Stent Placement:: 03/28/2015 Past Psychological History: Depression Smoking Status: Former smoker - Past Family History Mother Family Medical History: Osteoarthritis (OA), Pneumonia Additional Family Medical History / Comment(s): osteoporosis. arthroscopy surgery for knee Father Family Medical History: Liver Disease, Renal Disease Additional Family Medical History / Comment(s): triple heart bypass. liver transplant. aortic aneursym General Exam Limitations: physical limitation General appearance: alert, in no apparent distress Head exam: Present: atraumatic, normocephalic Eye exam: Present: normal appearance. Absent: scleral icterus, conjunctival injection ENT exam: Present: mucous membranes dry Neck exam: Present: normal inspection Respiratory exam: Present: normal lung sounds bilaterally, rales (Bases). Absent: respiratory distress, wheezes, rhonchi, stridor Cardiovascular Exam: Present: tachycardia, irregular rhythm, normal heart s ounds. Absent: systolic murmur, diastolic murmur, rubs, gallop GI/Abdominal exam: Present: soft. Absent: distended, tenderness, guarding, rebound, rigid, mass Extremities exam: Present: normal capillary refill, pedal edema, other (Chronic stasis changes). Absent: calf tenderness Back exam: Present: normal inspection Neurological exam: Present: alert Skin exam: Present: warm, dry, intact. Absent: rash Course Vital Signs 09/07/20 09/07/20 09/07/20 04:20 05:30 06:00 Temperature 98.0 F Pulse Rate 117 H 147 H 137 H Respiratory 22 20 20 Rate Blood Pressure 130/83 115/85 127/74 O2 Sat by Pulse 100 100 97 Oximetry 09/07/20 06:26 Temperature Pulse Rate 124 H Respiratory 20 Rate Blood Pressure 115/57 O2 Sat by Pulse 99 Oximetry EKG Findings - EKG Results: EKG: interpreted by ERMD, normal QRS EKG shows: atrial fibrillation (Rate approximately 133) - Blocks, [place], Hypertrophy, ST Abn: QRS axis and voltage: right axis deviation (+90 to +180) Repolarization changes or abnormalities: nonspecific abnormality, ST segment, and/or T wave Medical Decision Making - Medical Decision Making Patient's 50-year-old man found to be in atrial fibrillation with rapid ventricular rate. Patient started on Cardizem for rate control. Continue patient's L Aquinas. Case discussed with Dr. España for admission, and will have cardiology consultation. - Lab Data Result diagrams: 09/07/20 05:15 09/07/20 05:15 Lab Results 09/07/20 09/07/20 09/07/20 Range/Units 05:15 05:15 05:15 WBC 6.3 (3.8-10.6) k/uL RBC 4.99 (4.30-5.90) m/uL Hgb 13.2 (13.0-17.5) gm/dL Hct 42.7 (39.0-53.0) % MCV 85.6 D (80.0-100.0) fL MCH 26.6 (25.0-35.0) pg MCHC 31.0 (31.0-37.0) g/dL RDW 19.1 H (11.5-15.5) % Plt Count 186 (150-450) k/uL MPV 9.4 Neutrophils % 71 % Lymphocytes % 17 % Monocytes % 9 % Eosinophils % 1 % Basophils % 1 % Neutrophils # 4.5 (1.3-7.7) k/uL Lymphocytes # 1.1 (1.0-4.8) k/uL Monocytes # 0.6 (0-1.0) k/uL Eosinophils # 0.1 (0-0.7) k/uL Basophils # 0.1 (0-0.2) k/uL Manual Slide Review Performed Large Platelets Present Hypochromasia Marked Poikilocytosis Moderate Poikilocytosis (manual Present Anisocytosis Slight Anisocytosis (manual) Present Ovalocytes Present Sodium 136 L (137-145) mmol/L Potassium 4.9 (3.5-5.1) mmol/L Chloride 101 (98-107) mmol/L Carbon Dioxide 26 (22-30) mmol/L Anion Gap 9 mmol/L BUN 38 H (9-20) mg/dL Creatinine 1.85 H (0.66-1.25) mg/dL Est GFR (CKD-EPI)AfAm 49 (>60 ml/min/1.73 sqM) Est GFR (CKD-EPI)NonAf 42 (>60 ml/min/1.73 sqM) Glucose 78 (74-99) mg/dL Plasma Lactic Acid Isael (0.7-2.0) mmol/L Calcium 9.1 (8.4-10.2) mg/dL Magnesium 2.1 (1.6-2.3) mg/dL Total Bilirubin 1.3 (0.2-1.3) mg/dL AST 34 (17-59) U/L ALT 21 (4-49) U/L Alkaline Phosphatase 103 (38-126) U/L Troponin I 0.015 (0.000-0.034) ng/mL NT-Pro-B Natriuret Pep pg/mL Total Protein 6.4 (6.3-8.2) g/dL Albumin 3.4 L (3.5-5.0) g/dL 09/07/20 09/07/20 Range/Units 05:15 05:15 WBC (3.8-10.6) k/uL RBC (4.30-5.90) m/uL Hgb (13.0-17.5) gm/dL Hct (39.0-53.0) % MCV (80.0-100.0) fL MCH (25.0-35.0) pg MCHC (31.0-37.0) g/dL RDW (11.5-15.5) % Plt Count (150-450) k/uL MPV Neutrophils % % Lymphocytes % % Monocytes % % Eosinophils % % Basophils % % Neutrophils # (1.3-7.7) k/uL Lymphocytes # (1.0-4.8) k/uL Monocytes # (0-1.0) k/uL Eosinophils # (0-0.7) k/uL Basophils # (0-0.2) k/uL Manual Slide Review Large Platelets Hypochromasia Poikilocytosis Poikilocytosis (manual Anisocytosis Anisocytosis (manual) Ovalocytes Sodium (137-145) mmol/L Potassium (3.5-5.1) mmol/L Chloride (98-107) mmol/L Carbon Dioxide (22-30) mmol/L Anion Gap mmol/L BUN (9-20) mg/dL Creatinine (0.66-1.25) mg/dL Est GFR (CKD-EPI)AfAm (>60 ml/min/1.73 sqM) Est GFR (CKD-EPI)NonAf (>60 ml/min/1.73 sqM) Glucose (74-99) mg/dL Plasma Lactic Acid Isael 1.9 (0.7-2.0) mmol/L Calcium (8.4-10.2) mg/dL Magnesium (1.6-2.3) mg/dL Total Bilirubin (0.2-1.3) mg/dL AST (17-59) U/L ALT (4-49) U/L Alkaline Phosphatase (38-126) U/L Troponin I (0.000-0.034) ng/mL NT-Pro-B Natriuret Pep 01930 pg/mL Total Protein (6.3-8.2) g/dL Albumin (3.5-5.0) g/dL Disposition Clinical Impression: Atrial fibrillation with RVR, Congestive heart failure Disposition: ADMITTED IP TO THIS HOSP Condition: Fair Referrals: Manny Chaney NPC [Primary Care Provider] - 1-2 days
[2020-09-07] MEDS ORDERED: DILTIAZEM DRIP BOLUS FROM BAG 1 MG SOLN IV ONE ×3 (05:18→06:20)
[2020-09-07] MEDS ORDERED: DILTIAZEM 125 MG in SODIUM CHLORIDE 0.9% 100 ML IV SCH ×2 (05:30→07:30)
[2020-09-07 05:41] LABS: Albumin 3.4 g/dL (3.5-5.0); Calcium 9.1 mg/dL (8.4-10.2); Magnesium 2.1 mg/dL (1.6-2.3); Potassium 4.9 mmol/L (3.5-5.1); Total Bilirubin 1.3 mg/dL (0.2-1.3); Total Protein 6.4 g/dL (6.3-8.2)
[2020-09-07 05:44] LABS: Anisocytosis Slight; Basophils # (A) 0.1 k/uL (0-0.2); Basophils % (A) 1 %; Eosinophils # (A) 0.1 k/uL (0-0.7); Eosinophils % (A) 1 %; HCT 42.7 % (39.0-53.0); HGB 13.2 gm/dL (13.0-17.5); Hypochromasia Marked; Lymphocytes # (A) 1.1 k/uL (1.0-4.8); Lymphocytes % (A) 17 %; MCH 26.6 pg (25.0-35.0); Mean Platelet Volume 9.4; Monocytes # (A) 0.6 k/uL (0-1.0); Monocytes % (A) 9 %; Neutrophils # (A) 4.5 k/uL (1.3-7.7); Neutrophils % (A) 71 %; Platelet Count 186 k/uL (150-450); Poikilocytosis Moderate; RBC 4.99 m/uL (4.30-5.90); RDW 19.1 % (11.5-15.5); WBC 6.3 k/uL (3.8-10.6)
[2020-09-07 05:47] LABS: MCV 85.6 fL (80.0-100.0)
[2020-09-07 06:19] LABS: Ovalocytes Present
[2020-09-07 06:20] LABS: Anisocytosis (M) Present; Large Platelets Present; Poikilocytosis (M) Present
--- NOTE | 2020-09-07 06:33 | XR ---
EXAM: XR Chest, 1 View CLINICAL HISTORY: ITS.REASON XR Reason: dyspnea TECHNIQUE: Frontal view of the chest. COMPARISON: August 07, 2020 FINDINGS: Lungs: Pulmonary vasculature is prominent with mild perihilar and right basilar edema and/or infiltrates, slightly increased compared to previous. Lungs are well expanded. Pleural space: Unremarkable. No pneumothorax. Heart: The cardiac silhouette is enlarged. Mediastinum: Unremarkable. Bones/joints: Unremarkable. IMPRESSION: 1. The cardiac silhouette is enlarged. 2. Pulmonary vasculature is prominent with mild perihilar and right basilar edema and/or infiltrates, slightly increased compared to previous.
[2020-09-07] MEDS ORDERED: NITROGLYCERIN SL TABS 0.4 MG TAB SUBLINGUAL PRN (06:34)
[2020-09-07] MEDS ORDERED: ALBUTEROL NEBULIZED 2.5 MG/3 ML INHALATION PRN (06:36)
[2020-09-07] MEDS ORDERED: traMADol 50 MG TAB PO PRN (06:36)
[2020-09-07] MEDS: POTASSIUM CHLORIDE ER 20 MEQ TAB.ER PO SCH (07:05)
[2020-09-07] MEDS: PANTOPRAZOLE 40 MG TABLET PO SCH (07:05)
[2020-09-07] MEDS ORDERED: MORPHINE SULFATE 4 MG/ML SYRINGE IVP PRN (07:20)
--- NOTE | 2020-09-07 08:26 | P.HPIM ---
History of Present Illness H&P Date: 09/07/20 Chief Complaint: Shortness of breath This is a 50-year-old male with very complex past medical history significant for morbid obesity, type 2 diabetes, and congestive heart failure presented to the emergency room with worsening shortness of breath. Patient was discharged from the hospital approximately a month ago. He said that shortness of breath started a few days ago and is being getting progressively worse. Patient admitted that he does not take his medications as prescribed and usually miss taking his medication 2 or 3 days a week. He said that he did not take any of his medications for the last 2 days. I asked him why he is not taking his medication he answered ''because I'm stupid''. Patient has a visiting physician ordered a chest x-ray showing worsening CHF according to the patient. Today, he presented to the emergency room and he was found to be in A. fib with RVR. Heart rate up to 140. Patient was also noted to have significant fluid overloa d. Elevated BNP and a chest x-ray suggestive for CHF exacerbation. Patient started on IV Cardizem drip and will be admitted to the hospital for further management of his medical problems noted below. Review of Systems Review of system: 14 points review of systems were obtained and were negative except to what were mentioned in the HPI. Past Medical History Past Medical History: Atrial Fibrillation, Asthma, Coronary Artery Disease (CAD), Chest Pain / Angina, Heart Failure, COPD, Diabetes Mellitus, Deep Vein Thrombosis (DVT), Hyperlipidemia, Hypertension, Myocardial Infarction ([place]), Renal Disease, Sleep Apnea/CPAP/BIPAP, Thyroid Disorder, Vascular Disorder Additional Past Medical History / Comment(s): CHF, tracheobronchitis, CKD stage III, kidney stones, DVT L leg in 2004, KAMRYN without device use, colon abscess with bowel resection, multiple abdominal surgeries for a hiatal hernia that was complicated by prolonged hospitalization and prolonged ventilator dependent respiratory failure requiring a tracheostomy tube insertion, pvd-lower legs discolored/edematous, diverticular disease, chronic iron deficiency anemia, vertigo at times, Last Myocardial Infarction Date:: History of Any Multi-Drug Resistant Organisms: MRSA Date of last positivie culture/infection: 02/01/15 MDRO Source:: Abdomen Past Surgical History: Bowel Resection, Heart Catheterization With Stent, Hernia Repair Additional Past Surgical History / Comment(s): Colonoscopies, heart stents x 4, bowel resection with colostomy and colostomy reversal (removed a foot of pts colon)-2003, hernia repair with skin grafts and 2 fistula repairs (hospitalized for 1 year @[facility])-2010 MRSA 2014 in wounds. Past Anesthesia/Blood Transfusion Reactions: No Reported Reaction Additional Past Anesthesia/Blood Transfusion Reaction / Comment(s): Pt has received blood in past without reaction-2010 Date of Last Stent Placement:: 03/28/2015 Past Psychological History: Depression Smoking Status: Former smoker - Past Family History Mother Family Medical History: Osteoarthritis (OA), Pneumonia Additional Family Medical History / Comment(s): osteoporosis. arthroscopy surgery for knee Father Family Medical History: Liver Disease, Renal Disease Additional Family Medical History / Comment(s): triple heart bypass. liver transplant. aortic aneursym Medications and Allergies Home Medications Medication Instructions Recorded Confirmed Type Sertraline [Zoloft] 150 mg PO HS@199910/19/13 08/07/20 History Atorvastatin [Lipitor] 80 mg PO HS@199903/25/15 08/07/20 History Nitroglycerin Sl Tabs [Nitrostat] 0.4 mg SL Q5M PRN 06/23/20 08/07/20 History Potassium Chloride ER [K-Dur 20] 40 meq PO DAILY@0700 06/23/20 08/07/20 History Spironolactone [Aldactone] 25 mg PO HS@199906/23/20 08/07/20 History Apixaban [Eliquis] 5 mg PO BID #60 tab 06/26/20 08/07/20 Rx Metoprolol Tartrate [Lopressor] 50 mg PO BID #60 tab 06/26/20 08/07/20 Rx buPROPion XL [Wellbutrin XL] 150 mg PO HS@199907/26/20 08/07/20 History traMADol HCL 50 mg PO BID PRN #4 tab 08/03/20 08/07/20 Rx Albuterol Inhaler [Ventolin Hfa 1 puff INHALATION RT-Q6H PRN 08/07/20 08/07/20 History Inhaler] Enulose Solution 10gm/15ml 20 gm PO DAILY PRN 08/07/20 08/07/20 History Enulose Solution 10gm/15ml 20 mg PO HS@199908/07/20 08/07/20 History Furosemide [Lasix] 60 mg PO BID 08/07/20 08/07/20 History Gabapentin [Neurontin] 300 mg PO HS@199908/07/20 08/07/20 History Pantoprazole Sodium [Protonix] 40 mg PO DAILY@0600 08/07/20 08/07/20 History Insulin Detemir [Levemir Flextouch] 24 units SQ HS@1999 #0 08/11/20 08/07/20 Rx Isosorbide Mononitrate ER [Imdur] 30 mg PO DAILY #30 tab.er.24h 08/11/20 Rx Allergies Allergy/AdvReac Type Severity Reaction Status Date / Time adhesive Allergy "PLASTIC Verified 08/07/20 16:53 TAPE PEELS SKIN,PAPER TAPE IS OK" linezolid Allergy Unknown Verified 08/07/20 16:53 penicillin G Allergy Rash/Hives Verified 08/07/20 16:53 Cephalosporins AdvReac FEVER Verified 08/07/20 16:53 Physical Exam Vitals: Vital Signs Temp Pulse Resp BP Pulse Ox 09/07/20 07:10 134 H 22 124/71 96 09/07/20 06:26 124 H 20 115/57 99 09/07/20 06:00 137 H 20 127/74 97 09/07/20 05:30 147 H 20 115/85 100 09/07/20 04:20 98.0 F 117 H 22 130/83 100 Intake and Output 09/06/20 09/07/20 09/07/20 22:59 06:59 14:59 Other: Weight 158.757 kg General: The patient is awake and alert, in no distress Eye: there is normal conjunctiva bilaterally. Neck: The neck is supple, there is no JVD. Cardiovascular: Normal S1-S2, no S3-S4, no murmurs. Respiratory: Lungs clear to auscultation bilaterally Gastrointestinal: Abdomen is soft, nontender. There is a large ventral hernia. Multiple nonhealing wounds with no evidence of infection or drainage. Musculoskeletal: There is anasarca up to the hip with evidence of skin discoloration suggestive for chronic venous stasis Neurological:. Speech is normal. Skin: Skin is warm and dry Results CBC & Chem 7: 09/07/20 05:15 09/07/20 05:15 Labs: Abnormal Lab Results - Last 24 Hours (Table) 09/07/20 09/07/20 Range/Units 05:15 05:15 RDW 19.1 H (11.5-15.5) % Sodium 136 L (137-145) mmol/L BUN 38 H (9-20) mg/dL Creatinine 1.85 H (0.66-1.25) mg/dL Albumin 3.4 L (3.5-5.0) g/dL Assessment and Plan Assessment: This is a 50-year-old male with very complex past medical history noted below who presented to the emergency room with worsening shortness of breath. Patient was evaluated in the ER and admitted to the hospital for further management of his medical problems noted below. 1. Atrial fibrillation with rapid ventricular response, heart rate not well controlled secondary to medication noncompliance. Patient was started on IV Ca rdizem drip. Cardiology consulted for further evaluation. We will check thyroid function tests in the morning. Patient is on anticoagulation with Eliquis 2. Acute diastolic heart failure exacerbation, secondary to noncompliance. I would start patient on IV Lasix 40 mg every 8 hours. Strict I's and O's and daily weights. Echocardiogram in June showed preserved ejection fraction of 55-60%. 3. Stage IIIB chronic kidney disease, creatinine around baseline. We will continue to monitor closely 4. Chronic nonhealing ulcerations of the abdomen. With no evidence of infection at this time. I would consult wound care for further recommendations 5. Type 2 diabetes: Appeared well controlled. A1c 5.1 last month. Continue home dose of insulin plus sliding scale. 6. Chronic medical problems: Hyperlipidemia, history of chronic DVT, hypothyroidism, chronic venous insufficiency, multiple abdominal wall hernia from prior surgeries, history of diverticulosis, super morbid obesity Today, I reviewed his medication list and lab work results. We'll continue current regimen. Repeat lab work in the morning. Awaiting cardiology evaluation.
[2020-09-07] MEDS: FUROSEMIDE 10 MG/ML 4 ML VIAL IV SCH ×3 (08:30→22:59)
[2020-09-07] MEDS: ISOSORBIDE MONONITRATE ER 30 MG TAB.ER.24H PO SCH ×2 (08:31→20:31)
[2020-09-07] MEDS: APIXABAN 5 MG TAB PO SCH ×2 (08:31→20:40)
[2020-09-07] MEDS ORDERED: FUROSEMIDE 20 MG TAB PO SCH (09:00)
[2020-09-07] MEDS ORDERED: METOPROLOL TARTRATE 50 MG TAB PO SCH (09:00)
[2020-09-07 09:32] LABS: Glucose,Whole Blood 117 mg/dL (75-99)
[2020-09-07] MEDS: MORPHINE SULFATE 2 MG/ML SYRINGE IVP PRN ×3 (10:29→22:59)
[2020-09-07] MEDS: INSULIN ASPART (NovoLOG) 100 UNIT/ML VIAL SQ SCH ×3 (12:44→20:30)
--- NOTE | 2020-09-07 13:28 | P.CRDCN ---
History of Present Illness History of present illness: HISTORY OF PRESENTING ILLNESS This is a pleasant 50-year-old male past medical history significant for coronary artery disease status post PCI to the circumflex and LAD with a total occlusion of the RCA, hypertension, dyslipidemia, persistent atrial fibrillation, chronic kidney disease, morbid obesity and chronic nicotine dependence. He follows in the office with Dr. Wood. We have been asked to see in consultation for AAlex estrada with RVR and heart failure. And to to the hospital with symptoms of shortness of breath and lower extremity edema that has been progressively worse over the previous 24 hours. According to the patient he states he has been somewhat noncompliant with his medications because he gets tired at home and forgets to take them. He denies chest pain, dizziness or palpitations. Most recent echocardiogram obtained June 2020 revealed preserved LV systolic function with ejection fraction 55-60%, apical inferior and apical septal LV wall motion hypokinesia, moderate MR, mild TR and moderate pulmonary hypertension with an RVSP of 47 mmHg. DIAGNOSTICS EKG reveals fibrillation with rapid ventricular rate, right axis deviation and heart rate of 133. Chest xray prominent pulmonary vasculature. Laboratory reviewed, we have unremarkable, sodium 136, potassium 4.9, creatinine 1.85, magnesium 2.1, cardiac enzymes negative 3, proBNP 20,300 and TSH 6.55. Current cardiac medications include Eliquis 5 mg twice a day, Lasix 60 mg twice a day, Aldactone 25 mg daily, Imdur 30 mg daily and Lopressor 50 mg twice a day. REVIEW OF SYSTEMS At the time of my exam: CONSTITUTIONAL: Denies fever or chills. CARDIOVASCULAR: Please of shortness of breath. Denies chest pain, orthopnea, PND or palpitations. RESPIRATORY: Denies cough. GASTROINTESTINAL: Denies abdominal pain, diarrhea, constipation, nausea or vomiting. MUSCULOSKELETAL: Denies myalgias. NEUROLOGIC: Denies numbness, tingling, headacbe or weakness. ENDOCRINE: Denies fatigue, weight change, polydipsia or polyurina. GENITOURINARY: Denies burning, hematuria or urgency with micturation. HEMATOLOGIC: Denies history of anemia or bleeding. PHYSICAL EXAMINATION Blood pressure 111/85 heart rate 93 afebrile and maintaining oxygen saturation on nasal cannula. CONSTITUTIONAL: No apparent distress. Morbidly obese. HEENT: Head is normocephalic. Pupils are equal, round. Sclerae anicteric. Mucous membranes of the mouth are moist. No JVD. No carotid bruit. CHEST EXAMINATION: Bibasilar rales, no wheezes or rhonchi. No chest wall tenderness is noted on palpation or with deep breathing. HEART EXAMINATION: Irregular rate and rhythm. S1, S2 heard. Systolic ejection murmur at the base, no gallops or rub. ABDOMEN: Soft, nontender. Positive bowel sounds. EXTREMITIES: 2+ peripheral pulses, no lower extremity edema and no calf tenderness. NEUROLOGIC EXAMINATION: Patient is awake, alert and oriented x3. ASSESSMENT Acute on chronic diastolic heart failure Chronic persistent atrial fibrillation with rapid ventricular response Hypertension Dyslipidemia Chronic kidney disease Diabetes mellitus COPD Morbid obesity Medication noncompliance Chronic nicotine dependence PLAN Continue IV diuresis. Recommend accurate intake and output along with daily weights. Follow renal function and electrolytes in the morning. Increase metoprolol to 50 mg 3 times a day and wean off of cardizem infusion. Continue eliquis for thromboembolic protection. Ongoing telemetry monitoring. Medication compliance discussed with the patient. Further recommendations to follow based upon clinical course. Nurse Practitioner note has been reviewed, I agree with a documented findings and plan of care. Patient was seen and examined. Past Medical History Past Medical History: Atrial Fibrillation, Asthma, Coronary Artery Disease (CAD), Chest Pain / Angina, Heart Failure, COPD, Diabetes Mellitus, Deep Vein Thrombosis (DVT), Hyperlipidemia, Hypertension, Myocardial Infarction ([place]), Renal Disease, Sleep Apnea/CPAP/BIPAP, Thyroid Disorder, Vascular Disorder Additional Past Medical History / Comment(s): CHF, tracheobronchitis, CKD stage III, kidney stones, DVT L leg in 2004, KAMRYN without device use, colon abscess with bowel resection, multiple abdominal surgeries for a hiatal hernia that was complicated by prolonged hospitalization and prolonged ventilator dependent respiratory failure requiring a tracheostomy tube insertion, pvd-lower legs discolored/edematous, diverticular disease, chronic iron deficiency anemia, vertigo at times, Last Myocardial Infarction Date:: History of Any Multi-Drug Resistant Organisms: MRSA Date of last positivie culture/infection: 02/01/15 MDRO Source:: Abdomen Past Surgical History: Bowel Resection, Heart Catheterization With Stent, Hernia Repair Additional Past Surgical History / Comment(s): Colonoscopies, heart stents x 4, bowel resection with colostomy and colostomy reversal (removed a foot of pts colon)-2004, hernia repair with skin grafts and 2 fistula repairs (hospitalized for 1 year @[facility]2010 MRSA 2014 in wounds. Past Anesthesia/Blood Transfusion Reactions: No Reported Reaction Additional Past Anesthesia/Blood Transfusion Reaction / Comment(s): Pt has received blood in past without reaction-2010 Date of Last Stent Placement:: 03/28/2015 Past Psychological History: Depression Smoking Status: Former smoker - Past Family History Mother Family Medical History: Osteoarthritis (OA), Pneumonia Additional Family Medical History / Comment(s): osteoporosis. arthroscopy surgery for knee Father Family Medical History: Liver Disease, Renal Disease Additional Family Medical History / Comment(s): triple heart bypass. liver transplant. aortic aneursym Medications and Allergies Home Medications Medication Instructions Recorded Confirmed Type Sertraline [Zoloft] 150 mg PO HS@199910/19/13 09/07/20 History Nitroglycerin Sl Tabs [Nitrostat] 0.4 mg SUBLINGUAL Q5M PRN 06/23/20 09/07/20 History Spironolactone [Aldactone] 25 mg PO HS@199906/23/20 09/07/20 History Apixaban [Eliquis] 5 mg PO BID #60 tab 06/26/20 09/07/20 Rx Metoprolol Tartrate [Lopressor] 50 mg PO BID #60 tab 06/26/20 09/07/20 Rx buPROPion XL [Wellbutrin XL] 150 mg PO HS@199907/26/20 09/07/20 History traMADol HCL 50 mg PO BID PRN #4 tab 08/03/20 09/07/20 Rx Albuterol Inhaler [Ventolin Hfa 1 puff INHALATION RT-Q6H PRN 08/07/20 09/07/20 History Inhaler] Furosemide [Lasix] 60 mg PO BID 08/07/20 09/07/20 History Gabapentin [Neurontin] 300 mg PO HS@199908/07/20 09/07/20 History Isosorbide Mononitrate ER [Imdur] 30 mg PO DAILY #30 tab.er.24h 08/11/20 09/07/20 Rx Benzonatate [Tessalon Perles] 100 mg PO TID PRN 09/07/20 09/07/20 History Insulin Detemir [Levemir Flextouch] 40 units SQ HS 09/07/20 09/07/20 History Ipratropium-Albuterol Nebulize 3 ml INHALATION RT-TID 09/07/20 09/07/20 History [Duoneb 0.5 mg-3 mg/3 ml Soln] Magnesium Hydroxide [Milk of 2,400 mg PO DAILY PRN 09/07/20 09/07/20 History Magnesia] Allergies Allergy/AdvReac Type Severity Reaction Status Date / Time adhesive Allergy "PLASTIC Verified 08/07/20 16:53 TAPE PEELS SKIN,PAPER TAPE IS OK" linezolid Allergy Unknown Verified 08/07/20 16:53 penicillin G Allergy Rash/Hives Verified 08/07/20 16:53 Cephalosporins AdvReac FEVER Verified 08/07/20 16:53 Physical Exam Vitals: Vital Signs Temp Pulse Resp BP Pulse Ox 09/07/20 12:00 93 18 111/85 98 09/07/20 11:24 89 18 116/91 98 09/07/20 10:30 105 H 18 116/91 98 09/07/20 07:10 134 H 22 124/71 96 09/07/20 06:26 124 H 20 115/57 99 09/07/20 06:00 137 H 20 127/74 97 09/07/20 05:30 147 H 20 115/85 100 09/07/20 04:20 98.0 F 117 H 22 130/83 100 Intake and Output 09/06/20 09/07/20 09/07/20 22:59 06:59 14:59 Other: Weight 158.757 kg Results 09/07/20 05:15 09/07/20 05:15 Cardiac Enzymes 09/07/20 09/07/20 09/07/20 Range/Units 05:15 05:15 08:10 AST 34 (17-59) U/L Troponin I 0.015 0.018 (0.000-0.034) ng/mL 09/07/20 Range/Units 11:05 AST (17-59) U/L Troponin I 0.019 (0.000-0.034) ng/mL CBC 09/07/20 Range/Units 05:15 WBC 6.3 (3.8-10.6) k/uL RBC 4.99 (4.30-5.90) m/uL Hgb 13.2 (13.0-17.5) gm/dL Hct 42.7 (39.0-53.0) % Plt Count 186 (150-450) k/uL Comprehensive Metabolic Panel 09/07/20 Range/Units 05:15 Sodium 136 L (137-145) mmol/L Potassium 4.9 (3.5-5.1) mmol/L Chloride 101 (98-107) mmol/L Carbon Dioxide 26 (22-30) mmol/L BUN 38 H (9-20) mg/dL Creatinine 1.85 H (0.66-1.25) mg/dL Glucose 78 (74-99) mg/dL Calcium 9.1 (8.4-10.2) mg/dL AST 34 (17-59) U/L ALT 21 (4-49) U/L Alkaline Phosphatase 103 (38-126) U/L Total Protein 6.4 (6.3-8.2) g/dL Albumin 3.4 L (3.5-5.0) g/dL Current Medications Generic Name Dose Route Start Last Admin Trade Name Freq PRN Reason Stop Dose Admin Albuterol Sulfate 2.5 mg 09/07/20 06:36 Albuterol Nebulized 2.5 Mg/3 Ml INHALATION RT-Q6H PRN Shortness Of Breath Or Wheezing Apixaban 5 mg 09/07/20 09:00 09/07/20 08:31 Apixaban 5 Mg Tab PO 5 mg BID ZURI Administration Atorvastatin Calcium 80 mg 09/07/20 20:00 Atorvastatin 80 Mg Tab PO HS@2000 [facility] Furosemide 40 mg 09/07/20 08:15 09/07/20 08:30 Furosemide 10 Mg/Ml 4 Ml Vial IV 40 mg Q8HR ZURI Administration Gabapentin 300 mg 09/07/20 20:00 Gabapentin 300 Mg Cap PO HS@2000 [facility] Diltiazem HCl 125 mg/ Sodium 125 mls @ 10 mls/hr 09/07/20 07:30 09/07/20 07:35 Chloride IV 10 mg/hr .[id number] ZURI 10 mls/hr Administration 10 MG/HR Insulin Aspart 0 unit 09/07/20 12:30 09/07/20 12:44 Insulin Aspart (Novolog) 100 Unit/Ml Vial SQ Not Given ACHS [facility] Protocol Insulin Detemir 24 unit 09/07/20 20:00 Insulin Detemir (Levemir) 100 Unit/Ml Syr SQ HS@1999 [facility] Isosorbide Mononitrate 30 mg 09/07/20 09:00 09/07/20 08:31 Isosorbide Mononitrate Er 30 Mg Tab.Er.24h PO 30 mg DAILY [facility] Administration Metoprolol Tartrate 50 mg 09/07/20 16:00 Metoprolol Tartrate 50 Mg Tab PO TID [facility] Morphine Sulfate 2 mg 09/07/20 08:12 09/07/20 10:29 Morphine Sulfate 2 Mg/Ml Syringe IVP 2 mg Q4HR PRN Administration Pain Nitroglycerin 0.4 mg 09/07/20 06:34 Nitroglycerin Sl Tabs 0.4 Mg Tab SUBLINGUAL Q5M PRN Chest Pain Pantoprazole Sodium 40 mg 09/07/20 07:00 09/07/20 07:05 Pantoprazole 40 Mg Tablet PO 40 mg DAILY@0600 [facility] Administration Potassium Chloride 40 meq 09/07/20 07:00 09/07/20 07:05 Potassium Chloride Er 20 Meq Tab.Er PO 40 meq DAILY@0700 [facility] Administration Sertraline HCl 150 mg 09/07/20 20:00 Sertraline 50 Mg Tab PO HS@1999 [facility] Spironolactone 25 mg 09/07/20 20:00 Spironolactone 25 Mg Tab PO HS@1999 [facility] Tramadol HCl 50 mg 09/07/20 06:36 09/07/20 06:47 Tramadol 50 Mg Tab PO 50 mg BID PRN Administration Pain Intake and Output 09/06/20 09/07/20 09/07/20 22:59 06:59 14:59 Other: Weight 158.757 kg 09/07/20 05:15 09/07/20 05:15
[2020-09-07 13:58] LABS: T4, Free (Free Thyroxine) 0.89 ng/dL (0.78-2.19)
[2020-09-07 16:59] LABS: Glucose,Whole Blood 131 mg/dL (75-99)
[2020-09-07] MEDS: METOPROLOL TARTRATE 50 MG TAB PO SCH ×2 (17:20→22:59)
[2020-09-07] MEDS ORDERED: SPIRONOLACTONE 25 MG TAB PO SCH (20:00)
[2020-09-07] MEDS: SERTRALINE 50 MG TAB PO SCH (20:31)
[2020-09-07] MEDS: ATORVASTATIN 80 MG TAB PO SCH (20:33)
[2020-09-07] MEDS: GABAPENTIN 300 MG CAP PO SCH (20:33)
[2020-09-07 20:35] LABS: Glucose,Whole Blood 111 mg/dL (75-99)
[2020-09-07] MEDS: INSULIN DETEMIR (LEVEMIR) 100 UNIT/ML SYR SQ SCH (20:38)
[2020-09-08 06:03] LABS: Glucose,Whole Blood 105 mg/dL (75-99)
[2020-09-08] MEDS: INSULIN ASPART (NovoLOG) 100 UNIT/ML VIAL SQ SCH ×4 (06:07→20:51)
[2020-09-08] MEDS: PANTOPRAZOLE 40 MG TABLET PO SCH (06:13)
[2020-09-08] MEDS: POTASSIUM CHLORIDE ER 20 MEQ TAB.ER PO SCH (06:13)
[2020-09-08] MEDS: MORPHINE SULFATE 2 MG/ML SYRINGE IVP PRN ×4 (06:13→20:52)
[2020-09-08] MEDS: FUROSEMIDE 10 MG/ML 4 ML VIAL IV SCH (08:59)
[2020-09-08] MEDS: APIXABAN 5 MG TAB PO SCH ×2 (09:00→20:51)
[2020-09-08] MEDS: METOPROLOL TARTRATE 50 MG TAB PO SCH ×3 (09:00→22:13)
[2020-09-08] MEDS ORDERED: ASPIRIN 325 MG TAB PO SCH (09:00)
[2020-09-08] MEDS: ISOSORBIDE MONONITRATE ER 30 MG TAB.ER.24H PO SCH (09:00)
[2020-09-08 10:31] LABS: Calcium 8.9 mg/dL (8.4-10.2); Potassium 5.6 mmol/L (3.5-5.1)
[2020-09-08] MEDS ORDERED: SODIUM POLYSTYRENE SULFONATE 15 GM/60 ML BOTTLE PO STA (11:17)
--- NOTE | 2020-09-08 11:18 | P.PN ---
Subjective Progress Note Date: 09/08/20 Patient was seen and evaluated by me this morning. He was actively picking at his abdominal wound when I walked into the room. He understands that he should not be doing so and that is contributing to his wound not healing. He reported that his shortness of breath is about the same. He is not diuresing as desired. Heart rate well controlled. Objective - Vital Signs Vital signs: Vital Signs Temp 97.4 F L 09/08/20 08:55 Pulse 111 H 09/08/20 08:55 Resp 20 09/08/20 08:55 BP 92/63 09/08/20 08:55 Pulse Ox 96 09/08/20 08:55 Intake & Output 09/07/20 09/08/20 09/08/20 18:59 06:59 18:59 Intake Total 1920 Output Total 700 300 Balance -700 1620 Weight 159.3 kg Intake: Oral 1920 Output: Urine 700 300 - Exam General: The patient is awake and alert, in no distress Eye: there is normal conjunctiva bilaterally. Neck: The neck is supple, there is no JVD. Cardiovascular: Normal S1-S2, no S3-S4, no murmurs. Respiratory: Lungs clear to auscultation bilaterally Gastrointestinal: Abdomen is soft, nontender. There is multiple open abdominal wounds with no evidence of infection Musculoskeletal: There is anasarca up to the hip. There is chronic discoloration with venous stasis dermatitis in both legs Neurological:. Speech is normal. Skin: Skin is warm and dry - Labs CBC & Chem 7: 09/07/20 05:15 09/08/20 08:46 Labs: Abnormal Lab Results - Last 24 Hours (Table) 09/07/20 09/07/20 09/07/20 Range/Units 05:15 16:48 20:29 Sodium (137-145) mmol/L Potassium (3.5-5.1) mmol/L BUN (9-20) mg/dL Creatinine (0.66-1.25) mg/dL Glucose (74-99) mg/dL POC Glucose (mg/dL) 131 H 111 H (75-99) mg/dL HDL Cholesterol (40-60) mg/dL TSH 6.550 H (0.465-4.680) mIU/L 03/25/21 03/25/21 Range/Units 06:02 08:46 Sodium 131 L (137-145) mmol/L Potassium 5.6 H (3.5-5.1) mmol/L BUN 42 H (9-20) mg/dL Creatinine 2.25 H (0.66-1.25) mg/dL Glucose 119 H (74-99) mg/dL POC Glucose (mg/dL) 105 H (75-99) mg/dL HDL Cholesterol 27 L (40-60) mg/dL TSH 5.630 H (0.465-4.680) mIU/L Assessment and Plan Assessment: This is a 50-year-old male with very complex past medical history noted below who presented to the emergency room with worsening shortness of breath. Patient was evaluated in the ER and admitted to the hospital for further management of his medical problems noted below. 1. Atrial fibrillation with rapid ventricular response, heart rate not well controlled secondary to medication noncompliance. Patient was started on IV Cardizem drip. Cardiology consulted for further evaluation. Metoprolol dose increased to 50 mg 3 times a day. Patient is on anticoagulation with Eliquis. Thyroid function tests within acceptable range 2. Acute diastolic heart failure exacerbation, secondary to noncompliance. Started on IV Lasix 40 mg every 8 hours which will be decreased today to twice daily secondary to worsening creatinine. Strict I's and O's and daily weights. Echocardiogram in June showed preserved ejection fraction of 55-60%. 3. Hyperkalemia: Discontinue home dose of potassium chloride and hold spironolactone for now. Repeat lab work in the morning. One-time dose Kayexalate ordered. 4. Stage IIIB chronic kidney disease, creatinine around baseline. We will continue to monitor closely 5. Chronic nonhealing ulcerations of the abdomen. With no evidence of infection at this time. Patient was counseled extensively to stop picking at his wounds. I would consult wound care for further recommendations 6. Type 2 diabetes: Appeared well controlled. A1c 5.1 last month. Continue home dose of insulin plus sliding scale. 7. Chronic medical problems: Hyperlipidemia, history of chronic DVT, hypothyroidism, chronic venous insufficiency, multiple abdominal wall hernia from prior surgeries, history of diverticulosis, super morbid obesity Today, I reviewed his medication list and lab work results. We'll continue current regimen. Repeat lab work in the morning. Awaiting cardiology evaluation.
[2020-09-08 11:51] LABS: T4, Free (Free Thyroxine) 0.98 ng/dL (0.78-2.19)
[2020-09-08 11:54] LABS: Glucose,Whole Blood 126 mg/dL (75-99)
--- NOTE | 2020-09-08 11:57 | P.CONS ---
History of Present Illness - Reason for Consult Consult date: 09/08/20 wound care - History of Present Illness 50-year-old male known to the wound care center being seen on 3 for nonhealing ulcerations to the abdomen and the left foot second digit. Patient has nonhealing ulcerations from prior surgeries there have been open for approximately 2 years. They do close and will reopen often. Ulcerations have fat layer exposure with granulation seen throughout the wound bed and moderate slough noted. There is serosanguineous moderate drainage noted. Patient has been utilizing collagen at home. The ulceration to the left foot is epithelialized. Patient's past medical history significant for COPD, A. fib, CHF, coronary artery disease, [place], type 2 diabetes end stage renal failure i nsufficiency. Review Of Systems: Constitutional: No fever, no chills, no night sweats. No weight change. No weakness, fatigue or lethargy. No daytime sleepiness. Integumentary:reports wounds, no lesions. No rash or pruritus. No unusual bruising. No change in hair or nails. Physical exam: General Appearance: Alert, cooperative, no distress, appears stated age. Skin: See HPI all other Skin color, texture, tugor normal, no rashes or lesions. Neurologic: Alert oriented x3 Assessment/plan: 1. Nonpressure chronic ulcer of skin of other sites of fat layer exposure. Apply collagen, saline moistened gauze, dry gauze, ABDs and secured with paper tape. Change Saturday. Patient will continue with his weekly wound care appointments. Please call the wound care center to reschedule his next appointment. 2. Type 2 diabetes with skin ulcer Thank you for the consultation any questions please contact the wound care center DNP note has been reviewed and discussed with Dr. Jefferson and the impression and plan of care has been directed as dictated. Past Medical History Past Medical History: Atrial Fibrillation, Asthma, Coronary Artery Disease (CAD), Chest Pain / Angina, Heart Failure, COPD, Diabetes Mellitus, Deep Vein Thrombosis (DVT), Hyperlipidemia, Hypertension, Myocardial Infarction ([place]), Renal Disease, Sleep Apnea/CPAP/BIPAP, Thyroid Disorder, Vascular Disorder Additional Past Medical History / Comment(s): CHF, tracheobronchitis, CKD stage III, kidney stones, DVT L leg in 2004, KAMRYN without device use, colon abscess with bowel resection, multiple abdominal surgeries for a hiatal hernia that was complicated by prolonged hospitalization and prolonged ventilator dependent respiratory failure requiring a tracheostomy tube insertion, pvd-lower legs discolored/edematous, diverticular disease, chronic iron deficiency anemia, vertigo at times, Last Myocardial Infarction Date:: History of Any Multi-Drug Resistant Organisms: MRSA Year Discovered:: 02/01/15 MDRO Source:: Abdomen Past Surgical History: Bowel Resection, Heart Catheterization With Stent, Hernia Repair Additional Past Surgical History / Comment(s): Colonoscopies, heart stents x 4, bowel resection with colostomy and colostomy reversal (removed a foot of pts colon)-2003, hernia repair with skin grafts and 2 fistula repairs (hospitalized for 1 year @[facility])-2010 MRSA 2014 in wounds. Past Anesthesia/Blood Transfusion Reactions: No Reported Reaction Additional Past Anesthesia/Blood Transfusion Reaction / Comm: Pt has received blood in past without reaction-2010 Date of Last Stent Placement:: 03/28/2015 Past Psychological History: Depression Smoking Status: Former smoker - Past Family History Mother Family Medical History: Osteoarthritis (OA), Pneumonia Additional Family Medical History / Comment(s): osteoporosis. arthroscopy surgery for knee Father Family Medical History: Liver Disease, Renal Disease Additional Family Medical History / Comment(s): triple heart bypass. liver transplant. aortic aneursym Medications and Allergies Home Medications Medication Instructions Recorded Confirmed Type Sertraline [Zoloft] 150 mg PO HS@199910/19/13 09/07/20 History Nitroglycerin Sl Tabs [Nitrostat] 0.4 mg SUBLINGUAL Q5M PRN 06/23/20 09/07/20 History Spironolactone [Aldactone] 25 mg PO HS@199906/23/20 09/07/20 History Apixaban [Eliquis] 5 mg PO BID #60 tab 06/26/20 09/07/20 Rx Metoprolol Tartrate [Lopressor] 50 mg PO BID #60 tab 06/26/20 09/07/20 Rx buPROPion XL [Wellbutrin XL] 150 mg PO HS@199907/26/20 09/07/20 History traMADol HCL 50 mg PO BID PRN #4 tab 08/03/20 09/07/20 Rx Albuterol Inhaler [Ventolin Hfa 1 puff INHALATION RT-Q6H PRN 08/07/20 09/07/20 History Inhaler] Furosemide [Lasix] 60 mg PO BID 08/07/20 09/07/20 History Gabapentin [Neurontin] 300 mg PO HS@199908/07/20 09/07/20 History Isosorbide Mononitrate ER [Imdur] 30 mg PO DAILY #30 tab.er.24h 08/11/20 09/07/20 Rx Benzonatate [Tessalon Perles] 100 mg PO TID PRN 09/07/20 09/07/20 History Insulin Detemir [Levemir Flextouch] 40 units SQ HS 09/07/20 09/07/20 History Ipratropium-Albuterol Nebulize 3 ml INHALATION RT-TID 09/07/20 09/07/20 History [Duoneb 0.5 mg-3 mg/3 ml Soln] Magnesium Hydroxide [Milk of 2,400 mg PO DAILY PRN 09/07/20 09/07/20 History Magnesia] Allergies Allergy/AdvReac Type Severity Reaction Status Date / Time adhesive Allergy "PLASTIC Verified 08/07/20 16:53 TAPE PEELS SKIN,PAPER TAPE IS OK" linezolid Allergy Unknown Verified 08/07/20 16:53 penicillin G Allergy Rash/Hives Verified 08/07/20 16:53 Cephalosporins AdvReac FEVER Verified 08/07/20 16:53 Physical Exam Vitals: Vital Signs Temp Pulse Pulse Pulse Resp BP BP 09/08/20 08:55 97.4 F L 111 H 20 92/63 09/08/20 04:00 76 18 104/67 09/08/20 02:00 72 18 09/08/20 00:00 72 18 101/64 09/07/20 21:33 97.5 F L 84 18 90/65 09/07/20 21:13 85 18 112/81 09/07/20 19:50 121/85 09/07/20 19:40 80 121/85 09/07/20 19:30 93 104/77 09/07/20 19:20 82 104/77 09/07/20 19:10 83 104/77 09/07/20 19:00 85 18 126/102 09/07/20 18:50 89 126/102 09/07/20 18:40 82 126/102 09/07/20 18:30 84 109/76 09/07/20 18:20 79 109/76 09/07/20 18:10 81 109/76 09/07/20 18:00 85 109/86 09/07/20 17:50 90 109/86 09/07/20 17:40 89 109/86 09/07/20 17:30 81 103/73 09/07/20 17:20 73 09/07/20 17:10 84 103/73 09/07/20 17:00 90 18 100/84 09/07/20 16:50 83 100/84 09/07/20 16:40 75 100/84 09/07/20 16:30 88 71/59 09/07/20 16:20 76 71/59 09/07/20 16:10 81 71/59 09/07/20 16:00 78 92/72 09/07/20 15:50 89 92/72 09/07/20 15:40 86 92/72 09/07/20 15:30 82 93/70 09/07/20 15:20 74 93/70 09/07/20 15:10 76 93/70 09/07/20 15:00 72 18 110/73 09/07/20 14:56 80 09/07/20 14:50 74 110/73 09/07/20 14:40 75 110/73 09/07/20 14:30 93 108/76 09/07/20 14:20 80 108/76 09/07/20 14:10 71 108/76 09/07/20 14:00 85 18 99/73 09/07/20 13:50 88 99/73 09/07/20 13:40 88 99/73 09/07/20 13:30 91 89/74 09/07/20 13:20 81 89/74 09/07/20 13:10 87 89/74 09/07/20 13:00 81 18 105/85 09/07/20 12:50 83 105/85 09/07/20 12:40 80 105/85 09/07/20 12:30 87 111/85 09/07/20 12:20 84 111/85 09/07/20 12:10 93 111/85 09/07/20 12:00 80 18 98/77 Pulse Ox 09/08/20 08:55 96 09/08/20 04:00 99 09/08/20 02:00 09/08/20 00:00 98 09/07/20 21:33 97 09/07/20 21:13 97 09/07/20 19:50 09/07/20 19:40 09/07/20 19:30 99 09/07/20 19:20 98 09/07/20 19:10 09/07/20 19:00 99 09/07/20 18:50 98 09/07/20 18:40 99 09/07/20 18:30 100 09/07/20 18:20 98 09/07/20 18:10 97 09/07/20 18:00 98 09/07/20 17:50 98 09/07/20 17:40 99 09/07/20 17:30 98 09/07/20 17:20 98 09/07/20 17:10 98 09/07/20 17:00 97 09/07/20 16:50 97 09/07/20 16:40 97 09/07/20 16:30 97 09/07/20 16:20 97 09/07/20 16:10 97 09/07/20 16:00 96 09/07/20 15:50 96 09/07/20 15:40 98 09/07/20 15:30 97 09/07/20 15:20 99 09/07/20 15:10 98 09/07/20 15:00 99 09/07/20 14:56 09/07/20 14:50 97 09/07/20 14:40 97 09/07/20 14:30 09/07/20 14:20 09/07/20 14:10 09/07/20 14:00 98 09/07/20 13:50 09/07/20 13:40 09/07/20 13:30 09/07/20 13:20 09/07/20 13:10 09/07/20 13:00 98 09/07/20 12:50 09/07/20 12:40 09/07/20 12:30 09/07/20 12:20 09/07/20 12:10 09/07/20 12:00 98 Intake and Output 09/07/20 09/08/20 09/08/20 22:59 06:59 14:59 Intake Total 1920 Output Total 700 300 Balance -700 1620 Intake: Oral 1920 Output: Urine 700 300 Other: Weight 159.3 kg Results CBC & Chem 7: 09/07/20 05:15 09/08/20 08:46 Labs: Abnormal Lab Results - Last 24 Hours (Table) 09/07/20 09/07/20 09/07/20 Range/Units 05:15 16:48 20:29 Sodium (137-145) mmol/L Potassium (3.5-5.1) mmol/L BUN (9-20) mg/dL Creatinine (0.66-1.25) mg/dL Glucose (74-99) mg/dL POC Glucose (mg/dL) 131 H 111 H (75-99) mg/dL HDL Cholesterol (40-60) mg/dL TSH 6.550 H (0.465-4.680) mIU/L 09/08/20 09/08/20 Range/Units 06:02 08:46 Sodium 131 L (137-145) mmol/L Potassium 5.6 H (3.5-5.1) mmol/L BUN 42 H (9-20) mg/dL Creatinine 2.25 H (0.66-1.25) mg/dL Glucose 119 H (74-99) mg/dL POC Glucose (mg/dL) 105 H (75-99) mg/dL HDL Cholesterol 27 L (40-60) mg/dL TSH 5.630 H (0.465-4.680) mIU/L Assessment and Plan (1) Diabetes with skin ulcer Current Visit: No Status: Acute Code(s): E11.622 - TYPE 2 DIABETES MELLITUS WITH OTHER SKIN ULCER; L98.499 - NON-PRESSURE CHRONIC ULCER OF SKIN OF SITES W UNSP SEVERITY SNOMED Code(s): 87125098 (2) Morbid obesity with BMI of 50.0-59.9, adult Current Visit: No Status: Acute Code(s): E66.01 - MORBID (SEVERE) OBESITY DUE TO EXCESS CALORIES SNOMED Code(s): 401287047 (3) Nonhealing skin ulcer with fat layer exposed Current Visit: No Status: Acute Code(s): L98.492 - NON-PRS CHRONIC ULCER OF SKIN OF SITES W FAT LAYER EXPOSED SNOMED Code(s): 59242703
--- NOTE | 2020-09-08 14:17 | P.PN ---
Subjective HISTORY OF PRESENTING ILLNESS This is a pleasant 50-year-old male past medical history significant for coronary artery disease status post PCI to the circumflex and LAD with a total occlusion of the RCA, hypertension, dyslipidemia, persistent atrial fibrillation, chronic kidney disease, morbid obesity and chronic nicotine dependence. He follows in the office with Dr. Wood. We have been asked to see in consultation for Guido estrada with RVR and heart failure. And to to the hospital with symptoms of shortness of breath and lower extremity edema that has been progressively worse over the previous 24 hours. According to the patient he s tates he has been somewhat noncompliant with his medications because he gets tired at home and forgets to take them. He denies chest pain, dizziness or palpitations. Most recent echocardiogram obtained June 2020 revealed preserved LV systolic function with ejection fraction 55-60%, apical inferior and apical septal LV wall motion hypokinesia, moderate MR, mild TR and moderate pulmonary hypertension with an RVSP of 47 mmHg. 09/08/2020 Patient seen and examined resting comfortably sitting up in bed in no acute distress. He states his breathing has improved. Blood pressure 105/55 heart rate 68 afebrile maintaining oxygen saturation on nasal cannula. Laboratory data reviewed, sodium 131, potassium 5.6, creatinine 2.25, TSH 5.63, LDL 53. PHYSICAL EXAMINATION CONSTITUTIONAL: No apparent distress. Morbidly obese. HEENT: Head is normocephalic. Pupils are equal, round. Sclerae anicteric. Mucous membranes of the mouth are moist. No JVD. No carotid bruit. CHEST EXAMINATION: No rales, wheezes or rhonchi. No chest wall tenderness is noted on palpation or with deep breathing. Menest bilaterally. HEART EXAMINATION: Irregular rate and rhythm. S1, S2 heard. Systolic ejection murmur at the base, no gallops or rub. EXTREMITIES: 2+ peripheral pulses, 2+ bilateral lower extremity edema suggestive of venous insufficiency and no calf tenderness. ASSESSMENT Acute on chronic diastolic heart failure Chronic persistent atrial fibrillation with rapid ventricular response Hypertension Dyslipidemia Chronic kidney disease Hyperkalemia Diabetes mellitus COPD Morbid obesity Medication noncompliance Chronic nicotine dependence PLAN Transition to oral diuretics and resume aldactone. Repeat renal function and electrolytes in the morning. Further recommendations to follow based on clinical course. Nurse Practitioner note has been reviewed, I agree with a documented findings and plan of care. Patient was seen and examined. Objective - Vital Signs Vital signs: Vital Signs Temp 97.7 F 09/08/20 13:08 Pulse 68 09/08/20 13:08 Resp 14 09/08/20 13:08 BP 105/55 09/08/20 13:08 Pulse Ox 99 09/08/20 13:08 Intake & Output 09/07/20 09/08/20 09/08/20 18:59 06:59 18:59 Intake Total 1920 Output Total 700 600 Balance -700 1320 Weight 159.3 kg Intake: Oral 1920 Output: Urine 700 600 - Labs CBC & Chem 7: 09/07/20 05:15 09/08/20 08:46 Labs: Abnormal Lab Results - Last 24 Hours (Table) 09/07/20 09/07/20 09/08/20 Range/Units 16:48 20:29 06:02 Sodium (137-145) mmol/L Potassium (3.5-5.1) mmol/L BUN (9-20) mg/dL Creatinine (0.66-1.25) mg/dL Glucose (74-99) mg/dL POC Glucose (mg/dL) 131 H 111 H 105 H (75-99) mg/dL HDL Cholesterol (40-60) mg/dL TSH (0.465-4.680) mIU/L 09/08/20 09/08/20 Range/Units 08:46 11:52 Sodium 131 L (137-145) mmol/L Potassium 5.6 H (3.5-5.1) mmol/L BUN 42 H (9-20) mg/dL Creatinine 2.25 H (0.66-1.25) mg/dL Glucose 119 H (74-99) mg/dL POC Glucose (mg/dL) 126 H (75-99) mg/dL HDL Cholesterol 27 L (40-60) mg/dL TSH 5.630 H (0.465-4.680) mIU/L
[2020-09-08] MEDS: FUROSEMIDE 20 MG TAB PO SCH (15:51)
[2020-09-08 16:37] LABS: Glucose,Whole Blood 122 mg/dL (75-99)
[2020-09-08 20:35] LABS: Glucose,Whole Blood 129 mg/dL (75-99)
[2020-09-08] MEDS: INSULIN DETEMIR (LEVEMIR) 100 UNIT/ML SYR SQ SCH (20:51)
[2020-09-08] MEDS: ATORVASTATIN 80 MG TAB PO SCH (20:51)
[2020-09-08] MEDS: SERTRALINE 50 MG TAB PO SCH (20:51)
[2020-09-08] MEDS: GABAPENTIN 300 MG CAP PO SCH (20:51)
[2020-09-08] MEDS ORDERED: FUROSEMIDE 10 MG/ML 4 ML VIAL IV SCH (21:00)
[2020-09-09] MEDS: MORPHINE SULFATE 2 MG/ML SYRINGE IVP PRN (06:11)
[2020-09-09] MEDS: PANTOPRAZOLE 40 MG TABLET PO SCH (06:11)
[2020-09-09] MEDS: INSULIN ASPART (NovoLOG) 100 UNIT/ML VIAL SQ SCH ×2 (06:16→12:49)
[2020-09-09 06:17] LABS: Glucose,Whole Blood 139 mg/dL (75-99)
[2020-09-09] MEDS ORDERED: SPIRONOLACTONE 25 MG TAB PO SCH (09:00)
[2020-09-09] MEDS: FUROSEMIDE 20 MG TAB PO SCH (09:20)
[2020-09-09] MEDS: APIXABAN 5 MG TAB PO SCH (09:22)
[2020-09-09] MEDS: METOPROLOL TARTRATE 50 MG TAB PO SCH (09:23)
[2020-09-09 09:25] LABS: Potassium 4.9 mmol/L (3.5-5.1)
--- NOTE | 2020-09-09 11:39 | P.DS ---
Providers Date of admission: 09/07/20 06:34 Expected date of discharge: 09/09/20 Attending physician: Adi España MD Consults: 09/07/20 06:34 Consult Physician Routine Consulting Provider: Frank Reece Consult Reason/Comments: Atrial fibrillation with rapid ventricular rate Do you want consulting provider notified?: Yes 09/07/20 08:23 Consult Physician Routine Consulting Provider: Piter Jefferson Consult Reason/Comments: Chronic wounds of the abdomen Do you want consulting provider notified?: Yes Primary care physician: BOBO Rios Hospital Course: This is a 50-year-old male with very complex past medical history noted below who presented to the emergency room with worsening shortness of breath. Patient was evaluated in the ER and admitted to the hospital for further management of his medical problems noted below. 1. Atrial fibrillation with rapid ventricular response, heart rate not well controlled secondary to medication noncompliance. Patient was started on IV Cardizem drip. Cardiology consulted for further evaluation. Metoprolol dose increased to 100 mg 2 times a day. Patient is on anticoagulation with Eliquis. Thyroid function tests within acceptable range 2. Acute diastolic heart failure exacerbation, secondary to noncompliance. Started on IV Lasix with good response. Echocardiogram in June showed preserved ejection fraction of 55-60%. Resume home dose of Lasix 60 mg twice daily 3. Hyperkalemia: Resolved. Discontinue home dose of potassium chloride 4. Stage IIIB chronic kidney disease, creatinine around baseline. 5. Chronic nonhealing ulcerations of the abdomen. With no evidence of infection at this time. Patient was counseled extensively to stop picking at his wounds. he was seen by wound care and plan to follow-up in the office as directed 6. Type 2 diabetes: Appeared well controlled. A1c 5.1 last month. Continue home dose of insulin plus sliding scale. 7. Chronic medical problems: Hyperlipidemia, history of chronic DVT, hypothyroidism, chronic venous insufficiency, multiple abdominal wall hernia from prior surgeries, history of diverticulosis, super morbid obesity Patient will be discharged home in a stable condition. He was counseled extensively regarding medication compliance. Patient Condition at Discharge: Poor Plan - Discharge Summary Discharge Rx Participant: No New Discharge Prescriptions: New Atorvastatin [Lipitor] 40 mg PO HS #30 tablet Metoprolol Tartrate [Lopressor] 100 mg PO BID #60 tablet Continue Sertraline [Zoloft] 150 mg PO HS@1999 Nitroglycerin Sl Tabs [Nitrostat] 0.4 mg SUBLINGUAL Q5M PRN PRN Reason: Chest Pain Spironolactone [Aldactone] 25 mg PO HS@1999 Apixaban [Eliquis] 5 mg PO BID #60 tab buPROPion XL [Wellbutrin XL] 150 mg PO HS@1999 traMADol HCL 50 mg PO BID PRN #4 tab PRN Reason: Pain Albuterol Inhaler [Ventolin Hfa Inhaler] 1 puff INHALATION RT-Q6H PRN PRN Reason: Shortness Of Breath Or Wheezing Furosemide [Lasix] 60 mg PO BID Gabapentin [Neurontin] 300 mg PO HS@1999 Isosorbide Mononitrate ER [Imdur] 30 mg PO DAILY #30 tab.er.24h Benzonatate [Tessalon Perles] 100 mg PO TID PRN PRN Reason: Cough Magnesium Hydroxide [Milk of Magnesia] 2,400 mg PO DAILY PRN PRN Reason: Constipation Ipratropium-Albuterol Nebulize [Duoneb 0.5 mg-3 mg/3 ml Soln] 3 ml INHALATION RT-TID Insulin Detemir [Levemir Flextouch] 40 units SQ HS Discontinued Metoprolol Tartrate [Lopressor] 50 mg PO BID #60 tab Discharge Medication List Sertraline [Zoloft] 150 mg PO HS@199910/19/13 [History] Nitroglycerin Sl Tabs [Nitrostat] 0.4 mg SUBLINGUAL Q5M PRN 06/23/20 [History] Spironolactone [Aldactone] 25 mg PO HS@199906/23/20 [History] Apixaban [Eliquis] 5 mg PO BID #60 tab 06/26/20 [Rx] buPROPion XL [Wellbutrin XL] 150 mg PO HS@199907/26/20 [History] traMADol HCL 50 mg PO BID PRN #4 tab 08/03/20 [Rx] Albuterol Inhaler [Ventolin Hfa Inhaler] 1 puff INHALATION RT-Q6H PRN 08/07/20 [History] Furosemide [Lasix] 60 mg PO BID 08/07/20 [History] Gabapentin [Neurontin] 300 mg PO HS@199908/07/20 [History] Isosorbide Mononitrate ER [Imdur] 30 mg PO DAILY #30 tab.er.24h 08/11/20 [Rx] Benzonatate [Tessalon Perles] 100 mg PO TID PRN 09/07/20 [History] Insulin Detemir [Levemir Flextouch] 40 units SQ HS 09/07/20 [History] Ipratropium-Albuterol Nebulize [Duoneb 0.5 mg-3 mg/3 ml Soln] 3 ml INHALATION RT-TID 09/07/20 [History] Magnesium Hydroxide [Milk of Magnesia] 2,400 mg PO DAILY PRN 09/07/20 [History] Atorvastatin [Lipitor] 40 mg PO HS #30 tablet 09/09/20 [Rx] Metoprolol Tartrate [Lopressor] 100 mg PO BID #60 tablet 09/09/20 [Rx] Follow up Appointment(s)/Referral(s): Erica Mallory [NON-STAFF] - As Needed Manny Chaney NPC [Primary Care Provider] - 3 Days Discharge Disposition: HOME WITH HOME HEALTH SERVICES
[2020-09-09 11:46] LABS: Glucose,Whole Blood 165 mg/dL (75-99)
[2020-09-09 11:57] VITALS: BP 107/65; PULSE 93; RESP 18; TEMP 97.5
--- NOTE | 2020-09-09 13:21 | P.PN ---
Subjective HISTORY OF PRESENTING ILLNESS This is a pleasant 50-year-old male past medical history significant for coronary artery disease status post PCI to the circumflex and LAD with a total occlusion of the RCA, hypertension, dyslipidemia, persistent atrial fibrillation, chronic kidney disease, morbid obesity and chronic nicotine dependence. He follows in the office with Dr. Wood. We have been asked to see in consultation for Guido estrada with RVR and heart failure. And to to the hospital with symptoms of shortness of breath and lower extremity edema that has been progressively worse over the previous 24 hours. According to the patient he s tates he has been somewhat noncompliant with his medications because he gets tired at home and forgets to take them. He denies chest pain, dizziness or palpitations. Most recent echocardiogram obtained June 2020 revealed preserved LV systolic function with ejection fraction 55-60%, apical inferior and apical septal LV wall motion hypokinesia, moderate MR, mild TR and moderate pulmonary hypertension with an RVSP of 47 mmHg. 09/08/2020 Patient seen and examined resting comfortably laying flat in bed in no acute distress. He denies worsening shortness of breath. He has no chest pain, dizzine ss or palpitations. Blood pressure 107/65 heart rate 93 afebrile and maintaining oxygen saturation on nasal cannula. PHYSICAL EXAMINATION CONSTITUTIONAL: No apparent distress. Morbidly obese. HEENT: Head is normocephalic. Pupils are equal, round. Sclerae anicteric. Mucous membranes of the mouth are moist. No JVD. No carotid bruit. CHEST EXAMINATION: No rales, wheezes or rhonchi. No chest wall tenderness is noted on palpation or with deep breathing. Menest bilaterally. HEART EXAMINATION: Irregular rate and rhythm. S1, S2 heard. Systolic ejection murmur at the base, no gallops or rub. EXTREMITIES: 2+ peripheral pulses, 2+ bilateral lower extremity edema suggestive of venous insufficiency and no calf tenderness. ASSESSMENT Acute on chronic diastolic heart failure Chronic persistent atrial fibrillation with rapid ventricular response Hypertension Dyslipidemia Chronic kidney disease Hyperkalemia Diabetes mellitus COPD Morbid obesity Medication noncompliance Chronic nicotine dependence PLAN Increase lopressor to 100 mg BID. Ongoing telemetry monitoring. The importance of medication compliance discussed with the patient. Nurse Practitioner note has been reviewed, I agree with a documented findings and plan of care. Patient was seen and examined. Objective - Vital Signs Vital signs: Vital Signs Temp 97.5 F L 09/09/20 11:56 Pulse 93 09/09/20 11:56 Resp 18 09/09/20 11:56 BP 107/65 09/09/20 11:56 Pulse Ox 98 09/09/20 11:56 Intake & Output 09/08/20 09/09/20 09/09/20 18:59 06:59 18:59 Intake Total 2400 480 Output Total 900 650 375 Balance 1500 -650 105 Intake: Oral 2400 480 Output: Urine 900 650 375 Other: Voiding Method Urinal Urinal # Voids 1 - Labs CBC & Chem 7: 09/07/20 05:15 09/09/20 07:52 Labs: Abnormal Lab Results - Last 24 Hours (Table) 09/08/20 09/08/20 09/09/20 Range/Units 16:35 20:34 06:15 Sodium (137-145) mmol/L BUN (9-20) mg/dL Creatinine (0.66-1.25) mg/dL POC Glucose (mg/dL) 122 H 129 H 139 H (75-99) mg/dL 09/09/20 09/09/20 Range/Units 07:52 11:43 Sodium 134 L (137-145) mmol/L BUN 45 H (9-20) mg/dL Creatinine 2.31 H (0.66-1.25) mg/dL POC Glucose (mg/dL) 165 H (75-99) mg/dL
[2020-09-09] MEDS ORDERED: METOPROLOL TARTRATE 50 MG TAB PO SCH (21:00)
== END 2020-09-09 15:15 | disposition home health service (06) | DRG 291 ==
LOC: EC 04:17 → 3SCARD 06:34
PROVIDERS: ADMIT Internal Medicine; ATTEND Internal Medicine
DX: I13.0 Hypertensive heart and chronic kidney disease with heart failure and stage 1 through stage 4 chronic kidney disease, or unspecified chronic kidney disease (principal); I50.33 Acute on chronic diastolic (congestive) heart failure; I48.19 Other persistent atrial fibrillation; Z68.43 Body mass index [BMI] 50.0-59.9, adult; Z79.01 Long term (current) use of anticoagulants; Z79.899 Other long term (current) drug therapy; I25.10 Atherosclerotic heart disease of native coronary artery without angina pectoris; Z20.822 Contact with and (suspected) exposure to COVID-19; J44.9 Chronic obstructive pulmonary disease, unspecified; E78.5 Hyperlipidemia, unspecified; I25.2 Old myocardial infarction; G47.33 Obstructive sleep apnea (adult) (pediatric); Z86.14 Personal history of Methicillin resistant Staphylococcus aureus infection; Z82.62 Family history of osteoporosis; E11.22 Type 2 diabetes mellitus with diabetic chronic kidney disease; E66.01 Morbid (severe) obesity due to excess calories; F32.9 Major depressive disorder, single episode, unspecified; Z91.14 Patient's other noncompliance with medication regimen; N18.32 Chronic kidney disease, stage 3b; E11.622 Type 2 diabetes mellitus with other skin ulcer; I87.2 Venous insufficiency (chronic) (peripheral); Z86.718 Personal history of other venous thrombosis and embolism; E03.9 Hypothyroidism, unspecified; Z95.5 Presence of coronary angioplasty implant and graft; E11.621 Type 2 diabetes mellitus with foot ulcer; L98.492 Non-pressure chronic ulcer of skin of other sites with fat layer exposed; E87.5 Hyperkalemia; I27.20 Pulmonary hypertension, unspecified; I25.82 Chronic total occlusion of coronary artery; Z79.4 Long term (current) use of insulin; F17.200 Nicotine dependence, unspecified, uncomplicated; Z87.442 Personal history of urinary calculi; L97.529 Non-pressure chronic ulcer of other part of left foot with unspecified severity
CPT/HCPCS: 36415; 71045; 80048; 80053; 80061; 83605; 83735; 83880; 84439; 84443; 84484; 85025; 87635; 93005; 94640; 99285

== ENCOUNTER 2020-10-24 15:14 | Inpatient (IN) | payer MEDICARE, OTHER ==
[2020-10-24 16:48] LABS: Appearance,Urine Clear (Clear); Bilirubin,Urine Negative (Negative); Blood,Urine Negative (Negative); Color,Urine Yellow; Glucose,Urine (UA) Negative (Negative); Ketones,Urine Negative (Negative); Leukocyte Esterase,Urine Negative (Negative); Nitrite,Urine Negative (Negative); PH, Urine 5.5 (5.0-8.0); Protein,Urine Negative (Negative); Specific Gravity,Urine 1.008 (1.001-1.035); Urobilinogen,Urine <2.0 mg/dL (<2.0)
[2020-10-24 17:05] LABS: INR 1.4 (<1.2); Partial Thromboplastin Time 40.3 sec (22.0-30.0); Prothrombin Time 13.9 sec (9.0-12.0)
--- NOTE | 2020-10-24 17:05 | ED ---
Abdominal Pain HPI - General Chief Complaint: Abdominal Pain Stated Complaint: Abd Pain Time Seen by Provider: 10/24/20 15:20 Source: EMS Mode of arrival: EMS Limitations: no limitations - History of Present Illness Initial Comments: Patient is a 50-year-old male with multiple past medical conditions to include CHF, COPD, morbid obesity presents emergency Department with reported lethargy and abdominal pain. Patient is sent from [facility] for abdominal distention which has been intermittent over the past couple weeks. Patient reports to bilateral lower quadrant abdominal pain with nausea and vomiting. No fevers or chills. Decreased oral appetite. Denies diarrhea, constipation, melena stools or hematochezia. No urinary changes. Patient does have multiple chronic abdominal wall wounds for which she states have not changed in the amount of drainage. Patient denies any chest pain or shortness of breath. Noted to be markedly swollen in all extremities. Remainder of the HPI is limited because the patient is a poor historian - Related Data Home Medications Medication Instructions Recorded Confirmed Spironolactone [Aldactone] 25 mg PO DAILY 06/23/20 10/24/20 buPROPion XL [Wellbutrin XL] 150 mg PO DAILY 07/26/20 10/24/20 Insulin Detemir [Levemir Flextouch] 5 units SQ HS 09/07/20 10/24/20 Ipratropium-Albuterol Nebulize 3 ml INHALATION RT-Q6H 09/07/20 10/24/20 [Duoneb 0.5 mg-3 mg/3 ml Soln] Acetaminophen [Tylenol] 650 mg PO Q6H PRN 10/24/20 10/24/20 Aspirin EC [Ecotrin Low Dose] 81 mg PO DAILY 10/24/20 10/24/20 Folic Acid 0.4 mcg PO DAILY 10/24/20 10/24/20 Multivitamins, Thera [Multivitamin 1 tab PO DAILY 10/24/20 10/24/20 (formulary)] Omeprazole [PriLOSEC] 20 mg PO DAILY 10/24/20 10/24/20 Sennosides/Docusate Sodium [Senna 1 tab PO BID 10/24/20 10/24/20 Plus 8.6-50 mg Softgel] Sertraline [Zoloft] 50 mg PO HS 10/24/20 10/24/20 Previous Rx's Medication Instructions Recorded Apixaban [Eliquis] 5 mg PO BID #60 tab 06/26/20 Atorvastatin [Lipitor] 40 mg PO HS #30 tablet 09/09/20 Metoprolol Tartrate [Lopressor] 100 mg PO BID #60 tablet 09/09/20 Furosemide [Lasix] 60 mg PO BID #60 11/03/20 Gabapentin [Neurontin] 300 mg PO HS #6 cap 11/03/20 Levofloxacin [Levaquin] 250 mg PO DAILY #10 tab 11/03/20 Metoprolol Tartrate [Lopressor] 25 mg PO BID tab 11/03/20 Midodrine [ProAmatine] 10 mg PO AC-TID tab 11/03/20 Sennosides [Senokot] 8.6 mg PO BID tab 11/03/20 acetaZOLAMIDE [Diamox] 250 mg PO DAILY tab 11/03/20 metroNIDAZOLE [Flagyl] 500 mg PO TID #30 tab 11/03/20 Allergies Allergy/AdvReac Type Severity Reaction Status Date / Time adhesive Allergy "PLASTIC Verified 10/24/20 19:20 TAPE PEELS SKIN,PAPER TAPE IS OK" linezolid Allergy Unknown Verified 10/24/20 19:20 penicillin G Allergy Rash/Hives Verified 10/24/20 19:20 Cephalosporins AdvReac FEVER Verified 10/24/20 19:20 Review of Systems ROS Statement: Those systems with pertinent positive or pertinent negative responses have been documented in the HPI. ROS Other: All systems not noted in ROS Statement are negative. Past Medical History Past Medical History: Atrial Fibrillation, Asthma, Coronary Artery Disease (CAD), Chest Pain / Angina, Heart Failure, COPD, Diabetes Mellitus, Deep Vein Thrombosis (DVT), Hyperlipidemia, Hypertension, Myocardial Infarction ([place]), Renal Disease, Sleep Apnea/CPAP/BIPAP, Thyroid Disorder, Vascular Disorder Additional Past Medical History / Comment(s): CHF, tracheobronchitis, CKD stage III, kidney stones, DVT L leg in 2004, KAMRYN without device use, colon abscess with bowel resection, multiple abdominal surgeries for a hiatal hernia that was complicated by prolonged hospitalization and prolonged ventilator dependent respiratory failure requiring a tracheostomy tube insertion, pvd-lower legs di scolored/edematous, diverticular disease, chronic iron deficiency anemia, vertigo at times, Last Myocardial Infarction Date:: History of Any Multi-Drug Resistant Organisms: MRSA Date of last positivie culture/infection: 02/01/15 MDRO Source:: Abdomen Past Surgical History: Bowel Resection, Heart Catheterization With Stent, Hernia Repair Additional Past Surgical History / Comment(s): Colonoscopies, heart stents x 4, bowel resection with colostomy and colostomy reversal (removed a foot of pts colon)-2003, hernia repair with skin grafts and 2 fistula repairs ([facility] [place]note 3[facility]-2010 MRSA 2015 in wounds. Past Anesthesia/Blood Transfusion Reactions: No Reported Reaction Additional Past Anesthesia/Blood Transfusion Reaction / Comment(s): Pt has received blood in past without reaction-2010 Date of Last Stent Placement:: 03/28/2015 Past Psychological History: Depression Smoking Status: Former smoker - Past Family History Mother Family Medical History: Osteoarthritis (OA), Pneumonia Additional Family Medical History / Comment(s): osteoporosis. arthroscopy surgery for knee Father Family Medical History: Liver Disease, Renal Disease Additional Family Medical History / Comment(s): triple heart bypass. liver transplant. aortic aneursym General Exam Limitations: altered mental status General appearance: lethargic, obese Head exam: Present: atraumatic, normocephalic, normal inspection Eye exam: Present: normal appearance, PERRL, EOMI. Absent: scleral icterus, conjunctival injection, periorbital swelling ENT exam: Present: mucous membranes dry Respiratory exam: Present: normal lung sounds bilaterally. Absent: respiratory distress, wheezes, rales, rhonchi, stridor Cardiovascular Exam: Present: regular rate, normal rhythm, normal heart sounds. Absent: systolic murmur, diastolic murmur, rubs, gallop, clicks GI/Abdominal exam: Present: tenderness (left and right lower quadrants), other (obese. Multiple surgical scars anterior abd wall) Extremities exam: Present: other (anasarca) Neurological exam: Present: alert, oriented X3 Psychiatric exam: Present: flat affect Skin exam: Present: warm, dry, intact, normal color. Absent: rash Course Vital Signs 10/24/20 10/24/20 10/24/20 15:22 18:41 19:08 Temperature 98.9 F 98.8 F Pulse Rate 69 75 Pulse Rate [ 93 Pulse Oximetery ] Respiratory 18 18 21 Rate Blood Pressure 100/78 107/67 O2 Sat by Pulse 100 100 Oximetry 10/24/20 21:11 Temperature 98.4 F Pulse Rate 73 Pulse Rate [ Pulse Oximetery ] Respiratory 20 Rate Blood Pressure 109/79 O2 Sat by Pulse 99 Oximetry Medical Decision Making - Medical Decision Making Upon arrival patient's placed into room 14. Through history and physical exam was performed. Laboratory studies were conducted. Demonstrate a chronic renal failure with a creatinine of 2.2. BNP is 35,000. Patient is sent for a CT without contrast which demonstrates bilateral pleural effusions cardio medically. Bibasilar pulmonary infiltrates. Massive abdominal ascites. Extensive subcutaneous edema. Results are discussed the patient. Patient will be hospitalized. Spoke with Dr. Rubi who accepted admission. Requesting nephrology consultation. Patient taken to the floor in stable condition - Lab Data Result diagrams: 11/01/20 07:35 11/03/20 11:36 Lab Results 10/24/20 10/24/20 10/24/20 Range/Units 16:36 16:36 16:36 WBC 4.6 (3.8-10.6) k/uL RBC 5.80 (4.30-5.90) m/uL Hgb 13.6 (13.0-17.5) gm/dL Hct 47.5 (39.0-53.0) % MCV 81.9 (80.0-100.0) fL MCH 23.5 L (25.0-35.0) pg MCHC 28.7 L (31.0-37.0) g/dL RDW 21.3 H (11.5-15.5) % Plt Count 171 (150-450) k/uL MPV 9.0 Neutrophils % (Manual) 59 % Lymphocytes % (Manual) 21 % Monocytes % (Manual) 12 % Eosinophils % (Manual) 8 % Neutrophils # (Manual) 2.71 (1.3-7.7) k/uL Lymphocytes # (Manual) 0.97 L (1.0-4.8) k/uL Monocytes # (Manual) 0.55 (0-1.0) k/uL Eosinophils # (Manual) 0.37 (0-0.7) k/uL Nucleated RBCs 0 (0-0) /100 WBC Manual Slide Review Performed Polychromasia Present Hypochromasia Marked Poikilocytosis Slight Poikilocytosis (manual Present Anisocytosis Moderate Microcytosis Slight PT (9.0-12.0) sec INR (<1.2) APTT (22.0-30.0) sec Sodium 139 (137-145) mmol/L Potassium 3.5 (3.5-5.1) mmol/L Chloride 94 L (98-107) mmol/L Carbon Dioxide 37 H (22-30) mmol/L Anion Gap 8 mmol/L BUN 60 H (9-20) mg/dL Creatinine 2.29 H (0.66-1.25) mg/dL Est GFR (CKD-EPI)AfAm 37 (>60 ml/min/1.73 sqM) Est GFR (CKD-EPI)NonAf 32 (>60 ml/min/1.73 sqM) Glucose 81 (74-99) mg/dL Plasma Lactic Acid Isael 1.0 (0.7-2.0) mmol/L Calcium 9.5 (8.4-10.2) mg/dL Magnesium 2.0 (1.6-2.3) mg/dL Total Bilirubin 1.4 H (0.2-1.3) mg/dL AST 25 (17-59) U/L ALT 12 (4-49) U/L Alkaline Phosphatase 112 (38-126) U/L Troponin I (0.000-0.034) ng/mL NT-Pro-B Natriuret Pep pg/mL Total Protein 6.5 (6.3-8.2) g/dL Albumin 3.3 L (3.5-5.0) g/dL Lipase 53 (23-300) U/L Urine Color Urine Appearance (Clear) Urine pH (5.0-8.0) Ur Specific Dell (1.001-1.035) Urine Protein (Negative) Urine Glucose (UA) (Negative) Urine Ketones (Negative) Urine Blood (Negative) Urine Nitrite (Negative) Urine Bilirubin (Negative) Urine Urobilinogen (<2.0) mg/dL Ur Leukocyte Esterase (Negative) 10/24/20 10/24/20 10/24/20 Range/Units 16:36 16:36 16:36 WBC (3.8-10.6) k/uL RBC (4.30-5.90) m/uL Hgb (13.0-17.5) gm/dL Hct (39.0-53.0) % MCV (80.0-100.0) fL MCH (25.0-35.0) pg MCHC (31.0-37.0) g/dL RDW (11.5-15.5) % Plt Count (150-450) k/uL MPV Neutrophils % (Manual) % Lymphocytes % (Manual) % Monocytes % (Manual) % Eosinophils % (Manual) % Neutrophils # (Manual) (1.3-7.7) k/uL Lymphocytes # (Manual) (1.0-4.8) k/uL Monocytes # (Manual) (0-1.0) k/uL Eosinophils # (Manual) (0-0.7) k/uL Nucleated RBCs (0-0) /100 WBC Manual Slide Review Polychromasia Hypochromasia Poikilocytosis Poikilocytosis (manual Anisocytosis Microcytosis PT 13.9 H (9.0-12.0) sec INR 1.4 H (<1.2) APTT 40.3 H (22.0-30.0) sec Sodium (137-145) mmol/L Potassium (3.5-5.1) mmol/L Chloride (98-107) mmol/L Carbon Dioxide (22-30) mmol/L Anion Gap mmol/L BUN (9-20) mg/dL Creatinine (0.66-1.25) mg/dL Est GFR (CKD-EPI)AfAm (>60 ml/min/1.73 sqM) Est GFR (CKD-EPI)NonAf (>60 ml/min/1.73 sqM) Glucose (74-99) mg/dL Plasma Lactic Acid Isael (0.7-2.0) mmol/L Calcium (8.4-10.2) mg/dL Magnesium (1.6-2.3) mg/dL Total Bilirubin (0.2-1.3) mg/dL AST (17-59) U/L ALT (4-49) U/L Alkaline Phosphatase (38-126) U/L Troponin I <0.012 (0.000-0.034) ng/mL NT-Pro-B Natriuret Pep 60921 pg/mL Total Protein (6.3-8.2) g/dL Albumin (3.5-5.0) g/dL Lipase (23-300) U/L Urine Color Urine Appearance (Clear) Urine pH (5.0-8.0) Ur Specific Dell (1.001-1.035) Urine Protein (Negative) Urine Glucose (UA) (Negative) Urine Ketones (Negative) Urine Blood (Negative) Urine Nitrite (Negative) Urine Bilirubin (Negative) Urine Urobilinogen (<2.0) mg/dL Ur Leukocyte Esterase (Negative) 10/24/20 Range/Units 16:44 WBC (3.8-10.6) k/uL RBC (4.30-5.90) m/uL Hgb (13.0-17.5) gm/dL Hct (39.0-53.0) % MCV (80.0-100.0) fL MCH (25.0-35.0) pg MCHC (31.0-37.0) g/dL RDW (11.5-15.5) % Plt Count (150-450) k/uL MPV Neutrophils % (Manual) % Lymphocytes % (Manual) % Monocytes % (Manual) % Eosinophils % (Manual) % Neutrophils # (Manual) (1.3-7.7) k/uL Lymphocytes # (Manual) (1.0-4.8) k/uL Monocytes # (Manual) (0-1.0) k/uL Eosinophils # (Manual) (0-0.7) k/uL Nucleated RBCs (0-0) /100 WBC Manual Slide Review Polychromasia Hypochromasia Poikilocytosis Poikilocytosis (manual Anisocytosis Microcytosis PT (9.0-12.0) sec INR (<1.2) APTT (22.0-30.0) sec Sodium (137-145) mmol/L Potassium (3.5-5.1) mmol/L Chloride (98-107) mmol/L Carbon Dioxide (22-30) mmol/L Anion Gap mmol/L BUN (9-20) mg/dL Creatinine (0.66-1.25) mg/dL Est GFR (CKD-EPI)AfAm (>60 ml/min/1.73 sqM) Est GFR (CKD-EPI)NonAf (>60 ml/min/1.73 sqM) Glucose (74-99) mg/dL Plasma Lactic Acid Isael (0.7-2.0) mmol/L Calcium (8.4-10.2) mg/dL Magnesium (1.6-2.3) mg/dL Total Bilirubin (0.2-1.3) mg/dL AST (17-59) U/L ALT (4-49) U/L Alkaline Phosphatase (38-126) U/L Troponin I (0.000-0.034) ng/mL NT-Pro-B Natriuret Pep pg/mL Total Protein (6.3-8.2) g/dL Albumin (3.5-5.0) g/dL Lipase (23-300) U/L Urine Color Yellow Urine Appearance Clear (Clear) Urine pH 5.5 (5.0-8.0) Ur Specific Dell 1.008 (1.001-1.035) Urine Protein Negative (Negative) Urine Glucose (UA) Negative (Negative) Urine Ketones Negative (Negative) Urine Blood Negative (Negative) Urine Nitrite Negative (Negative) Urine Bilirubin Negative (Negative) Urine Urobilinogen <2.0 (<2.0) mg/dL Ur Leukocyte Esterase Negative (Negative) - EKG Data EKG Comments: EKG demonstrates A. fib with a rate of 74. QRS 94. QTC of 392. No acute ST segment elevations or depressions Disposition Clinical Impression: Abdominal pain, Nausea and vomiting, Chronic a-fib, Acute on chronic diastolic CHF (congestive heart failure) Disposition: ADMITTED IP TO THIS HOSP Condition: Stable Is patient prescribed a controlled substance at d/c from ED?: No Decision to Admit Reason: Admit from EC Decision Date: 10/24/20 Decision Time: 18:13
[2020-10-24 17:09] LABS: Albumin 3.3 g/dL (3.5-5.0); Calcium 9.5 mg/dL (8.4-10.2); Potassium 3.5 mmol/L (3.5-5.1); Total Bilirubin 1.4 mg/dL (0.2-1.3); Total Protein 6.5 g/dL (6.3-8.2)
[2020-10-24 17:16] LABS: Anisocytosis Moderate; HCT 47.5 % (39.0-53.0); HGB 13.6 gm/dL (13.0-17.5); Hypochromasia Marked; MCH 23.5 pg (25.0-35.0); MCHC 28.7 g/dL (31.0-37.0); MCV 81.9 fL (80.0-100.0); Microcytosis Slight; Platelet Count 171 k/uL (150-450); Poikilocytosis Slight; RDW 21.3 % (11.5-15.5); WBC 4.6 k/uL (3.8-10.6)
--- NOTE | 2020-10-24 17:42 | CT ---
EXAMINATION TYPE: CT abdomen pelvis wo con DATE OF EXAM: 10/24/2020 COMPARISON: 10/28/2014 HISTORY: Abdominal pain. CT DLP: 2780.4 mGycm Automated exposure control for dose reduction was used. Images obtained from the diaphragm to the floor the pelvis with no contrast. There is subcutaneous extensive edema around the abdomen. Abdomen not included on exam due to the patient's size. There are bilateral pleural effusions and lar oksana on the right side. There is lower lobe pulmonary infiltrate and atelectasis and more on the right side. There is large amount of abdominal ascites fluid. There is apparent large anterior abdominal wall afia tral hernia contains ascites fluid and transverse colon. This area not well evaluated and not entirel y included on the exam. I see no discrete liver mass. Spleen appears intact. Spleen is enlarged and m easures 18 cm. Liver is enlarged and measures 22 cm. The bile ducts are not dilated. There are anca us calcified gallstones. I see no evidence of pancreatic mass. There is no adrenal mass. There is irr egular 1 cm calculus lower pole right kidney. There is no hydronephrosis. Ureters are not dilated. Th ere is no retroperitoneal adenopathy. I see no sign of a bowel obstruction. There is no evidence of free air. Appendix not seen. There is m ultilevel lumbar spondylotic changes. There is multilevel lumbar bony spinal stenosis due to facet ar thropathy and posterior endplate spur formation. There is no compression fracture. The hip joints are intact. IMPRESSION: Bilateral pleural effusions with cardiomegaly. Basilar pulmonary infiltrates. This could relate to so me chronic congestive heart failure. This appears new compared to old exam. There is massive abdominal ascites. There is extensive subcutaneous edema. This could relate to chron ic congestive heart failure. This appears new compared to old exam. Hepatosplenomegaly. No free air. Limited exam.
[2020-10-24] MEDS ORDERED: NALOXONE 0.4 MG/ML 1 ML VIAL IV PRN (18:13)
[2020-10-24] MEDS ORDERED: ONDANSETRON 4 MG/2 ML VIAL IVP PRN (18:13)
[2020-10-24 18:19] LABS: Eosinophils # (M) 0.37 k/uL (0-0.7); Lymphocytes # (M) 0.97 k/uL (1.0-4.8); Monocytes # (M) 0.55 k/uL (0-1.0); Neutrophils # (M) 2.71 k/uL (1.3-7.7); Neutrophils % (M) 59 %; Nucleated Red Blood Cells 0 /100 WBC (0-0); Polychromasia Present; Total Cells Counted 100
[2020-10-24 18:20] LABS: Poikilocytosis (M) Present
[2020-10-24] MEDS ORDERED: VANCOMYCIN IV PER PHARMACY 1 EACH MISC MISCELLANE PRN (18:21)
[2020-10-24] MEDS ORDERED: CEFEPIME 2 GM in SODIUM CHLORIDE 0.9% 100 ML IVPB STA (18:36)
[2020-10-24] MEDS: PANTOPRAZOLE 40 MG/10 ML VIAL IVP SCH ×2 (18:50→23:29)
[2020-10-24] MEDS ORDERED: VANCOMYCIN 2,500 MG in SODIUM CHLORIDE 0.9% 500 ML 500 ML IVPB ONE (19:00)
--- NOTE | 2020-10-24 20:04 | HP ---
HISTORY AND PHYSICAL DATE OF SERVICE: 10/24/2020 CHIEF COMPLAINTS: Abdominal pain and nausea as well as change in mental status. HISTORY OF PRESENT ILLNESS: This 50-year-old gentleman with a past medical history of multiple medical problems such as atrial fibrillation, history of asthma, CAD, CHF, COPD, diabetes mellitus, DVT, history of hypertension, hyperlipidemia, being followed by Dr. James in the outpatient setting, also had multiple chronic nonhealing ulcerations of the abdomen. The patient was recently admitted with atrial fibrillation. Currently the patient is residing in the [facility], followed by Dr. James in the outpatient setting. The patient has complaints of abdominal pain, some nausea. The patient is unable to keep anything down. The patient came to [facility] and was admitted for further evaluation and treatment. The pain was diffuse in character. CT scan of the abdomen and pelvis was done in the ER, which I reviewed personally, which showed bilateral pleural effusions and cardiomegaly and bibasilar pulmonary infiltrates. There is massive abdominal ascites also noted, including extensive subcutaneous edema. There is no history of any fever, rigors or chills at this time. Patient is confused, unable to provide a complete coherent history. Most of the history is taken from my discussion with staff, discussion with the ER physician and review of the chart. PAST MEDICAL HISTORY: History of atrial fibrillation, asthma, CAD, CHF, COPD, diabetes mellitus, DVT. HOME MEDICATIONS: Ultram, bupropion, Aldactone, Zoloft, Nitrostat, Lopressor, Milk of Magnesia, Imdur, DuoNeb, Levemir, Neurontin, Lasix, Tessalon Perles, Lipitor, Eliquis, Ventolin. ALLERGIES: ADHESIVE TAPES, LINEZOLID, PENICILLIN G and CEPHALOSPORIN. FAMILY HISTORY: History of DJD, pneumonia, osteoporosis in the family. SOCIAL HISTORY: Previous history of smoking. No history of alcohol intake. REVIEW OF SYSTEMS: Review of systems could not be taken at length because of the change in mental status. PHYSICAL EXAMINATION: The pulse is 69, blood pressure 100/70, respiration 18, temperature 98.9, pulse ox 100% on 4 L. HEENT: Conjunctivae normal. NECK: No jugular venous distention. CARDIOVASCULAR SYSTEM: S1, S2 muffled. RESPIRATORY SYSTEM: Breath sounds diminished at the bases. A few scattered rhonchi and crackles. ABDOMEN: Soft, obese. Multiple ulcerations present. Tense. Mildly tender. LEGS: Bilateral leg edema. Cyanotic, also. NERVOUS SYSTEM: Higher functions as mentioned earlier. Moves all 4 limbs. No focal motor or sensory deficit. LYMPHATICS: No lymph node palpable in neck, axillae or groin. SKIN: As mentioned earlier. JOINTS: No active deforming arthropathy. LABS: WBC 4.6, hemoglobin 13.6. INR 1.4. Creatinine is 2.29. ASSESSMENT: 1. Change in mental status with nausea. Rule out sepsis. 2. Possible acute bilateral pneumonia, aspiration or Gram-negative with sepsis. 3. Massive ascites of undetermined etiology. 4. Multiple nonhealing subcutaneous abdominal wall wounds. 5. Chronic kidney disease, stage 3. 6. Elevated bilirubin. 7. History of atrial fibrillation, chronic. 8. History of asthma, chronic obstructive pulmonary disease. 9. History of coronary artery disease. 10.History of chest pain, angina. 11.History of congestive heart failure. 12.Diabetes mellitus, type 2. 13.History of deep vein thrombosis. 14.Hyperlipidemia. 15.Hypertension. 16.History of myocardial infarction. 17.Sleep apnea. 18.History of chronic kidney disease. 19.History of hypothyroidism. 20.History of tracheobronchitis. 21.History of deep venous thrombosis, left leg, 2004. 22.History of obstructive sleep apnea. 23.History of hiatal hernia. 24.History of methicillin-resistant Staphylococcus aeruginosa. 25.History of coronary artery disease, stent. 26.History of colonoscopies. 27.Morbid obesity with body mass index of 45.3. RECOMMENDATIONS AND DISCUSSION: In this 50-year-old gentleman who presented with multiple complex medical issues, we will monitor the patient closely, continue the current medications, continue with symptomatic treatment. Will initiate broad-spectrum IV antibiotic empirically. Consult Nephrology as well as Pulmonology. We will also get interventional radiology consultation for possible aspiration of the ascites fluid, etiology of which is uncertain. The home medications could be ordered once it is confirmed by the admitting team. Overall prognosis is extremely guarded because of multiple complex medical issues, as mentioned earlier. Further recommendations to follow. A copy of this dictation is being forwarded to Dr. James, who is the primary physician. Will get infectious disease evaluation, also. Will initiate cefepime and vancomycin. MMODL / IJN: [id number] /
[2020-10-24] MEDS ORDERED: HEPARIN SODIUM,PORCINE/PF 5,000 UNIT/0.5 ML SYRINGE SQ SCH (21:00)
[2020-10-24] MEDS: CEFEPIME 2 GM in SODIUM CHLORIDE 0.9% 100 ML IVPB SCH (23:30)
[2020-10-25 07:07] LABS: Glucose,Whole Blood 63 mg/dL (75-99)
[2020-10-25 07:32] LABS: Glucose,Whole Blood 76 mg/dL (75-99)
[2020-10-25] MEDS ORDERED: ACETAMINOPHEN TAB 325 MG TAB PO PRN (08:21)
[2020-10-25] MEDS ORDERED: NON FORMULARY DRUG (Tramadol Hcl 50 MG Tablet) PO PRN (08:21)
--- NOTE | 2020-10-25 08:36 | XR ---
EXAMINATION TYPE: XR chest 1V portable DATE OF EXAM: 10/25/2020 COMPARISON: NONE HISTORY: Shortness of breath TECHNIQUE: Single frontal view of the chest is obtained. FINDINGS: Bilateral areas of infiltrate are seen. Heart size stable. No pneumothorax. Osseous struct ures are unchanged. Arthropathy of the AC joint seen. IMPRESSION: Bilateral infiltrate stable. Correlate for pneumonia or CHF.
[2020-10-25] MEDS ORDERED: SENNOSIDES-DOCUSATE SODIUM 1 EACH TAB PO SCH (09:00)
[2020-10-25] MEDS ORDERED: NON FORMULARY DRUG (Omeprazole 20 MG Capsule.Dr) PO SCH (09:00)
[2020-10-25] MEDS ORDERED: APIXABAN 5 MG TAB PO SCH (09:00)
[2020-10-25] MEDS ORDERED: FUROSEMIDE 20 MG TAB PO SCH (09:00)
[2020-10-25] MEDS ORDERED: metOLazone 2.5 MG TAB PO SCH (09:00)
[2020-10-25] MEDS ORDERED: METOPROLOL TARTRATE 50 MG TAB PO SCH ×2 (09:00)
[2020-10-25] MEDS ORDERED: ASPIRIN 81 MG PO SCH (09:00)
[2020-10-25] MEDS ORDERED: ISOSORBIDE MONONITRATE ER 30 MG TAB.ER.24H PO SCH (09:00)
[2020-10-25] MEDS: traMADol 50 MG TAB PO SCH ×2 (09:02→20:49)
[2020-10-25] MEDS: PANTOPRAZOLE 40 MG/10 ML VIAL IVP SCH ×2 (09:02→20:50)
[2020-10-25] MEDS: MULTIVITAMINS, THERA 1 EACH TAB PO SCH (09:02)
[2020-10-25] MEDS: SENNOSIDES 8.6 MG TAB PO SCH ×2 (09:02→20:50)
[2020-10-25] MEDS: ASPIRIN 81 MG PO SCH (09:02)
[2020-10-25] MEDS: SPIRONOLACTONE 25 MG TAB PO SCH (09:03)
[2020-10-25] MEDS: IPRATROPIUM-ALBUTEROL 3 ML NEB INHALATION SCH ×2 (11:18→21:04)
[2020-10-25 11:22] LABS: Glucose,Whole Blood 77 mg/dL (75-99)
[2020-10-25 11:24] LABS: Calcium 9.4 mg/dL (8.4-10.2); Potassium 3.7 mmol/L (3.5-5.1)
[2020-10-25] MEDS ORDERED: VANCOMYCIN 2,500 MG in SODIUM CHLORIDE 0.9% 500 ML 500 ML IVPB SCH (12:00)
[2020-10-25] MEDS: buPROPion XL 150 MG TAB.ER.24H PO SCH (12:01)
[2020-10-25] MEDS: CEFEPIME 2 GM in SODIUM CHLORIDE 0.9% 100 ML IVPB SCH ×3 (12:02→23:02)
[2020-10-25 12:34] LABS: Anisocytosis (M) 2+; Basophils # (A) 0.04 X 10*3/uL (0.00-0.10); Eosinophils # (A) 0.28 X 10*3/uL (0.04-0.35); Eosinophils % (A) 7.1 %; HCT 45.5 % (39.6-50.0); HGB 13.2 g/dL (13.0-17.0); Lymphocytes % (A) 27.8 %; MCH 24.4 pg (27.0-32.0); MCV 84.1 fL (80.0-97.0); Monocytes # (A) 0.45 X 10*3/uL (0.20-1.00); Monocytes % (A) 11.4 %; Neutrophils # (A) 2.07 X 10*3/uL (1.80-7.70); Neutrophils % (A) 52.2 %; Platelet Count 152 X 10*3/uL (140-440); RBC 5.41 X 10*6/uL (4.40-5.60); RDW 23.6 % (11.5-14.5); WBC 3.96 X 10*3/uL (4.50-10.00)
[2020-10-25 12:40] LABS: BUN/Creat Ratio 22.73 Ratio (12.00-20.00)
--- NOTE | 2020-10-25 14:08 | P.NPCON ---
History of Present Illness - Reason for Consult acute renal failure, chronic renal failure - History of Present Illness Reason for consultation: Acute kidney injury on chronic kidney disease History of present illness: Patient is a 50-year-old male seen in renal consultation for acute kidney injury on chronic kidney disease. Patient has chronic kidney disease stage IIIB with baseline creatinine near 2. Etiology is nephrosclerosis and cardiorenal syndrome. Patient has a history of systolic and diastolic CHF. Patient presented to the hospital with abdominal discomfort. CAT scan revealed no hydronephrosis however ascites and pleural effusions were noted. UA is benign. Swain catheter will be inserted. Denies chest pain. Currently on 4 L nasal cannula. Blood pressure on the lower side. No fever or chills. Tested negative for coronavirus and influenza. Patient has long-standing history of diabetes mellitus. Denies use of nonsteroidals. He resides at an extended care facility. Vital signs are stable. General: The patient appeared well nourished and normally developed. HEENT: Head exam is unremarkable. Neck is without jugular venous distension. LUNGS: Breath sounds decreased. HEART: Rate and Rhythm are regular. ABDOMEN: Obese. Generalized tenderness. EXTREMITITES: 1+ edema. Chronic changes noted. Past Medical History Past Medical History: Atrial Fibrillation, Asthma, Coronary Artery Disease (CAD), Chest Pain / Angina, Heart Failure, COPD, Diabetes Mellitus, Deep Vein Thrombosis (DVT), Hyperlipidemia, Hypertension, Myocardial Infarction (LA), Renal Disease, Sleep Apnea/CPAP/BIPAP, Thyroid Disorder, Vascular Disorder Additional Past Medical History / Comment(s): CHF, tracheobronchitis, CKD stage III, kidney stones, DVT L leg in 2004, KAMRYN without device use, colon abscess with bowel resection, multiple abdominal surgeries for a hiatal hernia that was complicated by prolonged hospitalization and prolonged ventilator dependent respiratory failure requiring a tracheostomy tube insertion, pvd-lower legs discolored/edematous, diverticular disease, chronic iron deficiency anemia, vertigo at times, Last Myocardial Infarction Date:: History of Any Multi-Drug Resistant Organisms: MRSA Date of last positivie culture/infection: 02/01/15 MDRO Source:: Abdomen Past Surgical History: Bowel Resection, Heart Catheterization With Stent, Hernia Repair Additional Past Surgical History / Comment(s): Colonoscopies, heart stents x 4, bowel resection with colostomy and colostomy reversal (removed a foot of pts colon)-2003, hernia repair with skin grafts and 2 fistula repairs (hospitalized for 1 year @[facility])-2010 MRSA 2014 in wounds. Past Anesthesia/Blood Transfusion Reactions: No Reported Reaction Additional Past Anesthesia/Blood Transfusion Reaction / Comment(s): Pt has received blood in past without reaction-2010 Date of Last Stent Placement:: 03/28/2015 Past Psychological History: Depression Smoking Status: Former smoker - Past Family History Mother Family Medical History: Osteoarthritis (OA), Pneumonia Additional Family Medical History / Comment(s): osteoporosis. arthroscopy surgery for knee Father Family Medical History: Liver Disease, Renal Disease Additional Family Medical History / Comment(s): triple heart bypass. liver transplant. aortic aneursym Medications and Allergies Home Medications Medication Instructions Recorded Confirmed Type Spironolactone [Aldactone] 25 mg PO DAILY 06/23/20 10/24/20 History Apixaban [Eliquis] 5 mg PO BID #60 tab 06/26/20 10/24/20 Rx buPROPion XL [Wellbutrin XL] 150 mg PO DAILY 07/26/20 10/24/20 History Furosemide [Lasix] 60 mg PO BID 08/07/20 10/24/20 History Gabapentin [Neurontin] 300 mg PO HS 08/07/20 10/24/20 History Isosorbide Mononitrate ER [Imdur] 30 mg PO DAILY #30 tab.er.24h 08/11/20 10/24/20 Rx Insulin Detemir [Levemir Flextouch] 5 units SQ HS 09/07/20 10/24/20 History Ipratropium-Albuterol Nebulize 3 ml INHALATION RT-Q6H 09/07/20 10/24/20 History [Duoneb 0.5 mg-3 mg/3 ml Soln] Atorvastatin [Lipitor] 40 mg PO HS #30 tablet 09/09/20 10/24/20 Rx Metoprolol Tartrate [Lopressor] 100 mg PO BID #60 tablet 09/09/20 10/24/20 Rx Acetaminophen [Tylenol] 650 mg PO Q6H PRN 10/24/20 10/24/20 History Aspirin EC [Ecotrin Low Dose] 81 mg PO DAILY 10/24/20 10/24/20 History Doxycycline Monohydrate [Monodox] 100 mg PO Q12H 10/24/20 10/24/20 History Folic Acid 0.4 mcg PO DAILY 10/24/20 10/24/20 History Multivitamins, Thera [Multivitamin 1 tab PO DAILY 10/24/20 10/24/20 History (formulary)] Omeprazole [PriLOSEC] 20 mg PO DAILY 10/24/20 10/24/20 History Sennosides/Docusate Sodium [Senna 1 tab PO BID 10/24/20 10/24/20 History Plus 8.6-50 mg Softgel] Sertraline [Zoloft] 50 mg PO HS 10/24/20 10/24/20 History metOLazone [Zaroxolyn] 2.5 mg PO DAILY 10/24/20 10/24/20 History traMADol HCL 50 mg PO Q12H PRN 10/24/20 10/24/20 History Allergies Allergy/AdvReac Type Severity Reaction Status Date / Time adhesive Allergy "PLASTIC Verified 10/24/20 19:20 TAPE PEELS SKIN,PAPER TAPE IS OK" linezolid Allergy Unknown Verified 10/24/20 19:20 penicillin G Allergy Rash/Hives Verified 10/24/20 19:20 Cephalosporins AdvReac FEVER Verified 10/24/20 19:20 Physical Exam Vitals: Vital Signs Temp Pulse Pulse Resp BP BP Pulse Ox 10/25/20 11:30 76 10/25/20 11:20 72 10/25/20 07:00 97.4 F L 72 16 98/74 98 10/25/20 02:00 97.0 F L 83 22 106/77 95 10/24/20 22:05 96.8 F L 93 21 95/76 93 L 10/24/20 21:11 98.4 F 73 20 109/79 99 10/24/20 19:08 93 21 10/24/20 18:41 98.8 F 75 18 107/67 100 10/24/20 15:22 98.9 F 69 18 100/78 100 Intake and Output 10/24/20 10/25/20 10/25/20 22:59 06:59 14:59 Intake Total 800 900 Balance 800 900 Intake: Intake, IV Titration 500 600 Amount Cefepime 2 gm In Sodium 100 Chloride 0.9% 100 ml @ 200 mls/hr IVPB ONCE STA Rx#:[id number] Vancomycin 2,500 mg In 500 500 Sodium Chloride 0.9% 500 ml 500 ml @ 166.667 mls/ hr IVPB Q24H [facility] Rx#: [id number] Oral 300 300 Other: # Voids 3 3 Weight 143.335 kg 176 kg Results - Lab Results Most recent lab results Calcium 9.4 mg/dL (8.4-10.2) 10/25/20 06:03 Magnesium 2.0 mg/dL (1.6-2.3) 10/24/20 16:36 10/25/20 06:03 10/25/20 06:03 Assessment and Plan Plan: Assessment: 1. Acute kidney injury mostly prerenal secondary to cardiorenal syndrome. Creatinine 2.3 today. No hydronephrosis noted on CAT scan. UA benign. 2. Chronic kidney disease stage IIIB secondary to nephrosclerosis and cardioren al syndrome. Baseline creatinine near 2. 3. Volume overload. 4. Acute on chronic diastolic CHF with moderate mitral regurgitation and pulmonary hypertension. 5. Diabetes mellitus. 6. Morbid obesity. Plan: Start Lasix drip at 10 mL an hour. Add metolazone 5 mg once daily. Low-salt diet and 1500 mL fluid restriction. Add midodrine 5 mg 3 times daily. To be held for systolic blood pressure gre ater than 110. Swain catheter will be inserted. Daily weights. Continue to monitor renal function and urine output. May need paracentesis depending on his response to diuresis. Thank you for the consultation. I will continue to follow this patient with you during his hospital stay.
--- NOTE | 2020-10-25 15:49 | IR ---
EXAMINATION TYPE: IR cvc insert >=5 years DATE OF EXAM: 10/25/2020 COMPARISON: NONE CLINICAL HISTORY: Infection Needs long-term intravenous access for antibiotics, renal failure, nee ds long-term intravenous access for therapy. PROCEDURE: Hand hygiene obtained with soap and water and alcohol-based hand rub. After informed consent, the skin overlying the left basilic vein was localized with ultrasound and no benjie to be compressible and patent. An ultrasound image was obtained and submitted on the patient's c horowitz. The overlying skin was prepped and draped and Lidocaine was used for local anesthesia. A skin sherry was made with a scalpel. Access was gained to the vein under ultrasound guidance with a 21 gau ge needle and a 0.018 inch wire was advanced. Access site was dilated with Peel-Away sheath and cath eter tailored to the appropriate length and advanced centrally but could not be advanced centrally to the left sternoclavicular junction. Spot image was obtained verifying placement. Catheter was fixe d to the skin and a sterile dressing was placed following hemostasis. Catheter was aspirated and flu shed with saline. Patient was discharged in stable condition without complication. Maximal barrier t echnique is utilized. Ultrasound image is documented on the chart. Ultrasound used with monitoring tech nique. Fluoro time and fluoroscopic images submitted to document procedure: 3.9 minutes fluoroscopy time, 32 intraoperative C-arm images document the procedure. IMPRESSION: STATUS POST ULTRASOUND AND FLUOROSCOPIC GUIDED PICC LINE PLACEMENT, READY FOR USE. THIS PROCEDURE WAS PERFORMED BY THE UNDERSIGNED.
--- NOTE | 2020-10-25 16:21 | P.CNPUL ---
History of Present Illness Consult date: 10/25/20 Reason for consult: hypoxemia, pneumonia Chief complaint: Abdominal pain History of present illness: This is a 50-year-old white male with history of multiple medical problems including chronic systolic congestive heart failure, chronic atrial fibrillation, history of deep vein thrombosis, hypertension, obstructive sleep apnea syndrome, and previous myocardial infarction. chronic obstructive pulmonary disease, morbid obesity, patient has been at [facility], patient has been complaining of few weeks history of abdominal distention and abdominal pain. Pain was associated with nausea and vomiting, no fever, no chills, no melena, no hematemesis. No diarrhea, no constipation. Patient had previously multiple abdominal surgeries and multiple abdominal wall wounds with suspected cellulitis involving the abdominal wall. Patient has been mostly bedridden for the last 2 weeks according to him because of previous left knee injury. Patient has also been complaining of significant swelling in both extr emities. Remind you the patient is not a great historian. In the emergency room, patient had a CT of the abdomen and pelvis, and it showed bilateral pleural effusions and cardiomegaly, bibasilar atelectasis/infiltrates, and massive abdominal ascites. There is also extensive subcutaneous edema. Patient was admitted by Dr. Rubi, and he seems to be concerned about the possibility of sepsis, and I was asked to see the patient on consultation. Pulmonary-marsh, the patient denies any cough, no wheezing, no fever, no chills, no hemoptysis, no chest pain. And I reviewed the chest x-ray I also reviewed the CT of the chest, I think the findings are mostly findings of interstitial edema and fluid overload. I reviewed the chart on this patient, patient was last discharged from [facility] on 09/09/2020, patient had similar problems, and apparently he wasn't compliant with his medications he was eventually discharged home on Aldactone, Eliquis, Lasix 60 mg by mouth twice a day, and multiple other medications including bronchodilators. Based on the last note from the [facility] physician, patient is known to have noncompliance with medications. Review of Systems CONSTITUTIONAL: Denies fever. Denies chills. Denies weight loss. EYES: Negative. EARS, NOSE, MOUTH & THROAT: Negative. CARDIOVASCULAR: As noted in HPI. RESPIRATORY: Denies cough. Denies wheezing denies chest pain GASTROINTESTINAL: As noted in HPI. MUSCULOSKELETAL: Left knee pain INTEGUMENTARY: Chronic ulcerations and cellulitis of the abdominal wall NEUROLOGIC: Negative. PSYCHIATRIC: Negative. ENDOCRINE: Negative. GENITOURINARY: Negative HEMATOLOGIC: Negative Past Medical History Past Medical History: Atrial Fibrillation, Asthma, Coronary Artery Disease (CAD), Chest Pain / Angina, Heart Failure, COPD, Diabetes Mellitus, Deep Vein Th rombosis (DVT), Hyperlipidemia, Hypertension, Myocardial Infarction (MT), Renal Disease, Sleep Apnea/CPAP/BIPAP, Thyroid Disorder, Vascular Disorder Additional Past Medical History / Comment(s): CHF, tracheobronchitis, CKD stage III, kidney stones, DVT L leg in 2004, KAMRYN without device use, colon abscess with bowel resection, multiple abdominal surgeries for a hiatal hernia that was complicated by prolonged hospitalization and prolonged ventilator dependent respiratory failure requiring a tracheostomy tube insertion, pvd-lower legs discolored/edematous, diverticular disease, chronic iron deficiency anemia, vertigo at times, Last Myocardial Infarction Date:: History of Any Multi-Drug Resistant Organisms: MRSA Date of last positivie culture/infection: 02/01/15 MDRO Source:: Abdomen Past Surgical History: Bowel Resection, Heart Catheterization With Stent, Hernia Repair Additional Past Surgical History / Comment(s): Colonoscopies, heart stents x 4, bowel resection with colostomy and colostomy reversal (removed a foot of pts colon)-2003, hernia repair with skin grafts and 2 fistula repairs (hospitalized for 1 year @[facility])-2010 MRSA 2015 in wounds. Past Anesthesia/Blood Transfusion Reactions: No Reported Reaction Additional Past Anesthesia/Blood Transfusion Reaction / Comment(s): Pt has received blood in past without reaction-2010 Date of Last Stent Placement:: 03/28/2015 Past Psychological History: Depression Smoking Status: Former smoker - Past Family History Mother Family Medical History: Osteoarthritis (OA), Pneumonia Additional Family Medical History / Comment(s): osteoporosis. arthroscopy surgery for knee Father Family Medical History: Liver Disease, Renal Disease Additional Family Medical History / Comment(s): triple heart bypass. liver transplant. aortic aneursym Medications and Allergies Home Medications Medication Instructions Recorded Confirmed Type Spironolactone [Aldactone] 25 mg PO DAILY 06/23/20 10/24/20 History Apixaban [Eliquis] 5 mg PO BID #60 tab 06/26/20 10/24/20 Rx buPROPion XL [Wellbutrin XL] 150 mg PO DAILY 07/26/20 10/24/20 History Furosemide [Lasix] 60 mg PO BID 08/07/20 10/24/20 History Gabapentin [Neurontin] 300 mg PO HS 08/07/20 10/24/20 History Isosorbide Mononitrate ER [Imdur] 30 mg PO DAILY #30 tab.er.24h 08/11/20 10/24/20 Rx Insulin Detemir [Levemir Flextouch] 5 units SQ HS 09/07/20 10/24/20 History Ipratropium-Albuterol Nebulize 3 ml INHALATION RT-Q6H 09/07/20 10/24/20 History [Duoneb 0.5 mg-3 mg/3 ml Soln] Atorvastatin [Lipitor] 40 mg PO HS #30 tablet 09/09/20 10/24/20 Rx Metoprolol Tartrate [Lopressor] 100 mg PO BID #60 tablet 09/09/20 10/24/20 Rx Acetaminophen [Tylenol] 650 mg PO Q6H PRN 10/24/20 10/24/20 History Aspirin EC [Ecotrin Low Dose] 81 mg PO DAILY 10/24/20 10/24/20 History Doxycycline Monohydrate [Monodox] 100 mg PO Q12H 10/24/20 10/24/20 History Folic Acid 0.4 mcg PO DAILY 10/24/20 10/24/20 History Multivitamins, Thera [Multivitamin 1 tab PO DAILY 10/24/20 10/24/20 History (formulary)] Omeprazole [PriLOSEC] 20 mg PO DAILY 10/24/20 10/24/20 History Sennosides/Docusate Sodium [Senna 1 tab PO BID 10/24/20 10/24/20 History Plus 8.6-50 mg Softgel] Sertraline [Zoloft] 50 mg PO HS 10/24/20 10/24/20 History metOLazone [Zaroxolyn] 2.5 mg PO DAILY 10/24/20 10/24/20 History traMADol HCL 50 mg PO Q12H PRN 10/24/20 10/24/20 History Allergies Allergy/AdvReac Type Severity Reaction Status Date / Time adhesive Allergy "PLASTIC Verified 10/24/20 19:20 TAPE PEELS SKIN,PAPER TAPE IS OK" linezolid Allergy Unknown Verified 10/24/20 19:20 penicillin G Allergy Rash/Hives Verified 10/24/20 19:20 Cephalosporins AdvReac FEVER Verified 10/24/20 19:20 Physical Exam Vitals: Vital Signs Temp Pulse Pulse Resp BP BP Pulse Ox 10/25/20 14:00 96/70 10/25/20 13:50 98.2 F 71 19 68/52 93 L 10/25/20 11:30 76 10/25/20 11:20 72 10/25/20 07:00 97.4 F L 72 16 98/74 98 10/25/20 02:00 97.0 F L 83 22 106/77 95 10/24/20 22:05 96.8 F L 93 21 95/76 93 L 10/24/20 21:11 98.4 F 73 20 109/79 99 10/24/20 19:08 93 21 10/24/20 18:41 98.8 F 75 18 107/67 100 Intake and Output 10/25/20 10/25/20 10/25/20 06:59 14:59 22:59 Intake Total 900 Balance 900 Intake: Intake, IV Titration 600 Amount Cefepime 2 gm In Sodium 100 Chloride 0.9% 100 ml @ 200 mls/hr IVPB ONCE STA Rx#:[id number] Vancomycin 2,500 mg In 500 Sodium Chloride 0.9% 500 ml 500 ml @ 166.667 mls/ hr IVPB Q24H [facility] Rx#: [id number] Oral 300 Other: # Voids 3 2 Weight 176 kg Physical Exam: 50-year-old white male obese, edematous all over, on 4 L nasal cannula O2 sats 94% Head: Atraumatic, normocephalic. HEENT:[Neck is supple.] [No neck masses.] [No thyromegaly.] PERRLA, EOMI, moist mucous membranes. Chest: [Diminished breath sounds at the bases with minimal crackles bilaterally. No rhonchi and no wheezes.] Cardiac Exam: [Irregular irregular rhythm. Normal S1 and S2, no S3 gallop, 2/6 systolic murmur thought the precordium.] Abdomen: Distended abdomen. [Morbidly obese, Soft, nontender, no megaly, no rebound, no guarding, normal bowel sounds.] Multiple superficial ulcerations and wounds noted in the abdominal wall and multiple areas of herniations noted with surgical scars are noted. Extremities: [ chronic venous stasis changes noted bilaterally in both lower extremities. Brownish discoloration of lower extremities noted. No calf tenderness. 1+ bipedal edema noted. Neurological Exam: Alert oriented . 3, slight confusion noted. And poor historian. Psychiatric: Normal mood, affect, and mental status examination. Some confusion in giving history of medical illnesses. Results - Laboratory Findings CBC and BMP: 10/25/20 06:03 10/25/20 06:03 PT/INR, D-dimer PT 13.9 sec (9.0-12.0) H 10/24/20 16:36 INR 1.4 (<1.2) H 10/24/20 16:36 Abnormal lab findings: Abnormal Labs 10/24/20 10/24/20 10/24/20 16:36 16:36 16:36 WBC MCH 23.5 L MCHC 28.7 L RDW 21.3 H Absolute Nucleated RBC Lymphocytes # (Manual) 0.97 L NRBC/100 WBC Diff PT 13.9 H INR 1.4 H APTT 40.3 H Chloride 94 L Carbon Dioxide 37 H BUN 60 H Creatinine 2.29 H BUN/Creatinine Ratio Glucose POC Glucose (mg/dL) Total Bilirubin 1.4 H Albumin 3.3 L 10/25/20 10/25/20 10/25/20 06:03 06:03 07:06 WBC 3.96 L MCH 24.4 L MCHC 29.0 L RDW 23.6 H Absolute Nucleated RBC 0.02 H Lymphocytes # (Manual) NRBC/100 WBC Diff 0.5 H PT INR APTT Chloride 95 L Carbon Dioxide 37 H BUN 58 H Creatinine 2.23 H BUN/Creatinine Ratio 22.73 H Glucose 50 L POC Glucose (mg/dL) 63 L Total Bilirubin Albumin - Diagnostic Findings Chest x-ray: image reviewed (Suspect bibasilar atelectasis and pleural effusions strongly doubt pneumonia.) Assessment and Plan Assessment: Impression: Acute on chronic diastolic congestive heart failure Moderate severe pulmonary hypertension Moderate severe mitral regurgitation Bilateral pleural effusions and bibasilar atelectasis Possible sepsis Strongly doubt pneumonia Massive ascites, recurrent. Abdominal wall cellulitis with multiple nonhealing abdominal wound Chronic kidney disease stage III Chronic atrial fibrillation History of underlying COPD presently inactive Type 2 diabetes. History of deep vein thrombosis Benign essential hypertension Obstructive sleep apnea syndrome History of hypothyroidism History of coronary artery disease and previous stent placement Morbid obesity with BMI of 45.3. History of noncompliance with medical therapy. Recommendation: Continue diuretics, patient is now on Lasix at 10 mg per hour drip. Continue to monitor daily weights and I's and O's. Swain catheter needs to be place for close monitoring of his fluid status. Continue empiric antibiotics patient is presently on cefepime and vancomycin until further cultures are available. Patient to be evaluated by interventional radiology for possible paracentesis Pancultures including abdominal wound cultures, sputum cultures and blood cultures, and change antibiotics accordingly Patient to be seen by nephrology and by cardiology as well as interventional radiology Continue Eliquis Continue bronchodilators. Follow-up chest x-ray after few days of aggressive diuresis. We'll continue to follow Time with Patient: Greater than 30
[2020-10-25] MEDS ORDERED: MIDODRINE 5 MG TAB PO SCH (17:30)
--- NOTE | 2020-10-25 17:33 | PN ---
PROGRESS NOTE DATE OF SERVICE: 10/25/2020 This 50-year-old gentleman with a past medical history of multiple complex medical issues, admitted with abdominal pain as well as nausea and change in mental status indicative of possible sepsis, was started on broad-spectrum IV antibiotics. The patient is slightly the creatinine was found to be 2.23. The influenza and COVID testing are negative. Cultures are pending at this time. Dr. Turcios is following the patient closely. I would recommend Lasix drip at this time. He is being closely monitored. Past medical history reviewed. REVIEW OF SYSTEMS: CARDIOVASCULAR SYSTEM: No angina, palpitations. RESPIRATORY SYSTEM: As mentioned earlier. GI: As mentioned earlier. : No dysuria or retention. NERVOUS SYSTEM: No numbness, weakness. CURRENT MEDICATIONS: Reviewed. They include Tylenol, DuoNeb, aspirin, Lipitor, Wellbutrin, cefepime, Neurontin. PHYSICAL EXAMINATION: Patient is alert, oriented x3. Pulse 71, blood pressure 96/70, respiration 19, temperature 98.3, pulse ox 93% on room air. HEENT: Conjunctivae normal. NECK: No jugular venous distention. CARDIOVASCULAR SYSTEM: S1, S2 muffled. RESPIRATORY SYSTEM: Breath sounds diminished at the bases. A few scattered rhonchi and crackles. ABDOMEN: Soft. Status post wounds present. LEGS: No edema. No swelling. NERVOUS SYSTEM: No focal deficit. LABS: Labs at this time show WBC 6.6, hemoglobin 13.2, sodium 139. Creatinine is 2.73. ASSESSMENT: 1. Change in mental status with possible acute sepsis with possible acute bilateral pneumonia with aspiration or Gram-negative sepsis. 2. Massive ascites of undetermined etiology. 3. Multiple nonhealing subcutaneous abdominal wall wounds. 4. Chronic kidney disease, stage 3. 5. Elevated bilirubin. 6. History of atrial fibrillation, chronic. 7. History of asthma, chronic obstructive pulmonary disease. 8. History of coronary artery disease. 9. History of chest pain, angina. 10.History of congestive heart failure. 11.Diabetes mellitus, type 2. 12.History of deep vein thrombosis. 13.Hyperlipidemia. 14.Hypertension. 15.History of myocardial infarction. 16.History of sleep apnea. 17.History of chronic kidney disease. 18.Hypothyroidism. 19.History of tracheobronchitis. 20.History of deep venous thrombosis, left leg, 2004. 21.History of obstructive sleep apnea. 22.History of hiatal hernia. 23.History of methicillin-resistant Staphylococcus aeruginosa. 24.History of coronary artery disease, stent. 25.History of colonoscopy. 26.History of obesity with a body mass index of 44.3. 27.FULL CODE. RECOMMENDATIONS AND DISCUSSION: I recommend to continue current medications, continue with the monitoring, symptomatic treatment. Continue with broad-spectrum IV antibiotics. Will follow closely with Dr. Turcios's evaluation and Pulmonary as well as Dr. Short from Infectious Disease, who is also being consulted. Guarded prognosis because of the multiple complex medical issues. Further recommendations to follow. MMODL / IJN: [id number] / [id number]
[2020-10-25] MEDS: FUROSEMIDE 100 MG in SODIUM CHLORIDE 0.9% 90 ML IV SCH ×2 (17:53→23:03)
[2020-10-25] MEDS ORDERED: MIDODRINE 5 MG TAB PO ONE (18:00)
[2020-10-25 20:23] LABS: Glucose,Whole Blood 89 mg/dL (75-99)
[2020-10-25] MEDS: GABAPENTIN 300 MG CAP PO SCH (20:49)
[2020-10-25] MEDS: SERTRALINE 50 MG TAB PO SCH (20:49)
[2020-10-25] MEDS: ATORVASTATIN 40 MG TAB PO SCH (20:50)
[2020-10-25] MEDS: METOPROLOL TARTRATE 25 MG TAB PO SCH (20:50)
--- NOTE | 2020-10-25 23:24 | P.CONS ---
History of Present Illness - Reason for Consult Consult date: 10/25/20 Sepsis Requesting physician: Joshua Rubi - Chief Complaint abd pain off and on x 1 week - History of Present Illness Patient is a 50-year-old male presenting to the ER at [facility] yesterday for evaluation of lethargy and abdominal pain apparently the patient is a resident of [facility] patient complaining of intermittent abdominal pain for the last few weeks mostly in the lower quadrant area with nausea and vomiting and decreased appetite with the symptoms patient has been evaluated by ER physician on arrival to the ER patient has been afebrile patient did have mild leukopenia with a white count of 3.96 no lymphopenia creatinine was elevated 2.23 patient did have a negative UA, CT of abdominal pelvis did shows evidence of bilateral pleural effusion evidence of abdominal ascites ventral hernia and multiple gallstones did not mention any evidence of colitis, patient is currently breathing comfortably on 2 L nasal cannula denies having any chest pain shortness with minimal cough no vomiting or diarrhea has been reported by nursing staff patient has been treated with possible antibiotic in the form of cefepime and vancomycin infectious was consulted with concern for sepsis in this patient with no fever or elevated white count Review of Systems Positive point has been mentioned in the HPI rest of the systems are negative Past Medical History Past Medical History: Atrial Fibrillation, Asthma, Coronary Artery Disease (CAD), Chest Pain / Angina, Heart Failure, COPD, Diabetes Mellitus, Deep Vein Thrombosis (DVT), Hyperlipidemia, Hypertension, Myocardial Infarction (HI), Renal Disease, Sleep Apnea/CPAP/BIPAP, Thyroid Disorder, Vascular Disorder Additional Past Medical History / Comment(s): CHF, tracheobronchitis, CKD stage III, kidney stones, DVT L leg in 2004, KAMRYN without device use, colon abscess with bowel resection, multiple abdominal surgeries for a hiatal hernia that was complicated by prolonged hospitalization and prolonged ventilator dependent respiratory failure requiring a tracheostomy tube insertion, pvd-lower legs discolored/edematous, diverticular disease, chronic iron deficiency anemia, vertigo at times, Last Myocardial Infarction Date:: History of Any Multi-Drug Resistant Organisms: MRSA Year Discovered:: 02/01/15 MDRO Source:: Abdomen Past Surgical History: Bowel Resection, Heart Catheterization With Stent, Hernia Repair Additional Past Surgical History / Comment(s): Colonoscopies, heart stents x 4, bowel resection with colostomy and colostomy reversal (removed a foot of pts colon)-2003, hernia repair with skin grafts and 2 fistula repairs (hospitalized for 1 year @[facility])-2010 MRSA 2014 in wounds. Past Anesthesia/Blood Transfusion Reactions: No Reported Reaction Additional Past Anesthesia/Blood Transfusion Reaction / Comm: Pt has received blood in past without reaction-2010 Date of Last Stent Placement:: 03/28/2015 Past Psychological History: Depression Smoking Status: Former smoker - Past Family History Mother Family Medical History: Osteoarthritis (OA), Pneumonia Additional Family Medical History / Comment(s): osteoporosis. arthroscopy surgery for knee Father Family Medical History: Liver Disease, Renal Disease Additional Family Medical History / Comment(s): triple heart bypass. liver transplant. aortic aneursym Medications and Allergies Home Medications Medication Instructions Recorded Confirmed Type Spironolactone [Aldactone] 25 mg PO DAILY 06/23/20 10/24/20 History Apixaban [Eliquis] 5 mg PO BID #60 tab 06/26/20 10/24/20 Rx buPROPion XL [Wellbutrin XL] 150 mg PO DAILY 07/26/20 10/24/20 History Furosemide [Lasix] 60 mg PO BID 08/07/20 10/24/20 History Gabapentin [Neurontin] 300 mg PO HS 08/07/20 10/24/20 History Isosorbide Mononitrate ER [Imdur] 30 mg PO DAILY #30 tab.er.24h 08/11/20 10/24/20 Rx Insulin Detemir [Levemir Flextouch] 5 units SQ HS 09/07/20 10/24/20 History Ipratropium-Albuterol Nebulize 3 ml INHALATION RT-Q6H 09/07/20 10/24/20 History [Duoneb 0.5 mg-3 mg/3 ml Soln] Atorvastatin [Lipitor] 40 mg PO HS #30 tablet 09/09/20 10/24/20 Rx Metoprolol Tartrate [Lopressor] 100 mg PO BID #60 tablet 09/09/20 10/24/20 Rx Acetaminophen [Tylenol] 650 mg PO Q6H PRN 10/24/20 10/24/20 History Aspirin EC [Ecotrin Low Dose] 81 mg PO DAILY 10/24/20 10/24/20 History Doxycycline Monohydrate [Monodox] 100 mg PO Q12H 10/24/20 10/24/20 History Folic Acid 0.4 mcg PO DAILY 10/24/20 10/24/20 History Multivitamins, Thera [Multivitamin 1 tab PO DAILY 10/24/20 10/24/20 History (formulary)] Omeprazole [PriLOSEC] 20 mg PO DAILY 10/24/20 10/24/20 History Sennosides/Docusate Sodium [Senna 1 tab PO BID 10/24/20 10/24/20 History Plus 8.6-50 mg Softgel] Sertraline [Zoloft] 50 mg PO HS 10/24/20 10/24/20 History metOLazone [Zaroxolyn] 2.5 mg PO DAILY 10/24/20 10/24/20 History traMADol HCL 50 mg PO Q12H PRN 10/24/20 10/24/20 History Allergies Allergy/AdvReac Type Severity Reaction Status Date / Time adhesive Allergy "PLASTIC Verified 10/24/20 19:20 TAPE PEELS SKIN,PAPER TAPE IS OK" linezolid Allergy Unknown Verified 10/24/20 19:20 penicillin G Allergy Rash/Hives Verified 10/24/20 19:20 Cephalosporins AdvReac FEVER Verified 10/24/20 19:20 Physical Exam Vitals: Vital Signs Temp Pulse Pulse Resp BP BP Pulse Ox 10/25/20 07:00 97.4 F L 72 16 98/74 98 10/25/20 02:00 97.0 F L 83 22 106/77 95 10/24/20 22:05 96.8 F L 93 21 95/76 93 L 10/24/20 21:11 98.4 F 73 20 109/79 99 10/24/20 19:08 93 21 10/24/20 18:41 98.8 F 75 18 107/67 100 10/24/20 15:22 98.9 F 69 18 100/78 100 Intake and Output 10/24/20 10/25/20 10/25/20 22:59 06:59 14:59 Intake Total 800 900 Balance 800 900 Intake: Intake, IV Titration 500 600 Amount Cefepime 2 gm In Sodium 100 Chloride 0.9% 100 ml @ 200 mls/hr IVPB ONCE STA Rx#:[id number] Vancomycin 2,500 mg In 500 500 Sodium Chloride 0.9% 500 ml 500 ml @ 166.667 mls/ hr IVPB Q24H [facility] Rx#: [id number] Oral 300 300 Other: # Voids 3 3 Weight 143.335 kg 176 kg GENERAL DESCRIPTION: Middle-aged male lying in bed, no distress. No tachypnea or accessory muscle of respiration use. HEENT: Shows Pallor , no scleral icterus. Oral mucous membrane is dry. No pharyngeal erythema or thrush NECK: Trachea central, no thyromegaly. LUNGS: Unlabored breathing. Clear to auscultation anteriorly. No wheeze or crack le. HEART: S1, S2, regular rate and rhythm. No loud murmur ABDOMEN: Soft, no tenderness , guarding or rigidity, no organomegaly EXTREMITIES: No edema of feet. SKIN: No rash, no masses palpable. NEUROLOGICAL: The patient is awake, alert, oriented x3, mood and affect normal. Results CBC & Chem 7: 10/25/20 06:03 10/25/20 06:03 Labs: Abnormal Lab Results - Last 24 Hours (Table) 10/24/20 10/24/20 10/24/20 Range/Units 16:36 16:36 16:36 MCH 23.5 L (25.0-35.0) pg MCHC 28.7 L (31.0-37.0) g/dL RDW 21.3 H (11.5-15.5) % Lymphocytes # (Manual) 0.97 L (1.0-4.8) k/uL PT 13.9 H (9.0-12.0) sec INR 1.4 H (<1.2) APTT 40.3 H (22.0-30.0) sec Chloride 94 L (98-107) mmol/L Carbon Dioxide 37 H (22-30) mmol/L BUN 60 H (9-20) mg/dL Creatinine 2.29 H (0.66-1.25) mg/dL POC Glucose (mg/dL) (75-99) mg/dL Total Bilirubin 1.4 H (0.2-1.3) mg/dL Albumin 3.3 L (3.5-5.0) g/dL 10/25/20 Range/Units 07:06 MCH (25.0-35.0) pg MCHC (31.0-37.0) g/dL RDW (11.5-15.5) % Lymphocytes # (Manual) (1.0-4.8) k/uL PT (9.0-12.0) sec INR (<1.2) APTT (22.0-30.0) sec Chloride (98-107) mmol/L Carbon Dioxide (22-30) mmol/L BUN (9-20) mg/dL Creatinine (0.66-1.25) mg/dL POC Glucose (mg/dL) 63 L (75-99) mg/dL Total Bilirubin (0.2-1.3) mg/dL Albumin (3.5-5.0) g/dL Assessment and Plan Assessment: 1-patient presented to hospital with abdominal pain in this patient who did have evidence of abdominal ascites did have a large ventral hernia and multiple gallstones could be contributing to his symptoms of abdominal pain, clinically doubt sepsis in this patient as well nontoxic with no fever or elevated white count 2-patient with multiple superficial abdominal wall wound with no evidence of any secondary cellulitis 3-patient with renal insufficiency and high risk of nephrotoxicity Plan: 1-discontinue the vancomycin 2-May continue cefepime while waiting for the culture to finalize and condition stabilized 3-local wound care with Aquacel silver dressing change every 48 hour 4-await paracentesis the fluid should be sent for cell count and culture 5-we will check a CRP and procalcitonin level We will follow on clinical condition and cultures to further adjust medication if needed Thank you for this consultation we will follow the patient along with you Time with Patient: Greater than 30
[2020-10-26] MEDS: IPRATROPIUM-ALBUTEROL 3 ML NEB INHALATION SCH ×4 (03:41→20:34)
[2020-10-26 06:23] LABS: Glucose,Whole Blood 83 mg/dL (75-99)
[2020-10-26] MEDS: MIDODRINE 5 MG TAB PO SCH ×3 (06:27→16:45)
[2020-10-26 08:27] LABS: INR 1.4 (<1.2); Prothrombin Time 13.8 sec (9.0-12.0)
--- NOTE | 2020-10-26 08:47 | US ---
EXAMINATION TYPE: US abdomen limited DATE OF EXAM: 10/26/2020 COMPARISON: CT 10/24/2020 CLINICAL HISTORY: assess for fluid pocket please. All four quadrants scanned. Large amount of ascites noted. IMPRESSION: Ascites
[2020-10-26] MEDS: MULTIVITAMINS, THERA 1 EACH TAB PO SCH (09:07)
[2020-10-26] MEDS: buPROPion XL 150 MG TAB.ER.24H PO SCH (09:07)
[2020-10-26] MEDS: METOPROLOL TARTRATE 25 MG TAB PO SCH ×2 (09:07→20:30)
[2020-10-26] MEDS: CEFEPIME 2 GM in SODIUM CHLORIDE 0.9% 100 ML IVPB SCH ×2 (09:07→20:30)
[2020-10-26] MEDS: traMADol 50 MG TAB PO SCH (09:08)
[2020-10-26] MEDS: PANTOPRAZOLE 40 MG/10 ML VIAL IVP SCH (09:08)
[2020-10-26] MEDS: SPIRONOLACTONE 25 MG TAB PO SCH (09:08)
[2020-10-26] MEDS: SENNOSIDES 8.6 MG TAB PO SCH ×2 (09:08→20:30)
[2020-10-26] MEDS: metOLazone 5 MG TAB PO SCH (09:08)
[2020-10-26] MEDS: ASPIRIN 81 MG PO SCH (09:11)
[2020-10-26] MEDS: FUROSEMIDE 100 MG in SODIUM CHLORIDE 0.9% 90 ML IV SCH ×2 (09:20→20:29)
[2020-10-26 09:23] LABS: Albumin 3.2 g/dL (3.5-5.0); C Reactive Protein 3.1 mg/dL (<1.0); Calcium 9.7 mg/dL (8.4-10.2); Magnesium 1.9 mg/dL (1.6-2.3); Potassium 3.5 mmol/L (3.5-5.1); Total Bilirubin 1.5 mg/dL (0.2-1.3); Total Protein 6.5 g/dL (6.3-8.2)
[2020-10-26] MEDS ORDERED: POTASSIUM CHLORIDE ER 20 MEQ TAB.ER PO STA (11:39)
[2020-10-26 12:13] LABS: Glucose,Whole Blood 102 mg/dL (75-99)
[2020-10-26] MEDS: ALBUMIN HUMAN 25% 50 ML in EMPTY BAG 1 BAG IVPB SCH ×4 (12:33→15:56)
--- NOTE | 2020-10-26 12:44 | P.PN ---
Subjective Patient is seen in follow-up for acute kidney injury on chronic kidney disease. Renal function slightly worse. Diuresis well with Lasix drip. Scheduled for paracentesis today. Vital signs are stable. General: The patient appeared well nourished and normally developed. HEENT: Head exam is unremarkable. LUNGS: Breath sounds decreased. HEART: Rate and Rhythm are regular. ABDOMEN: Obese. EXTREMITITES: Chronic changes noted. 2+ edema. Objective - Vital Signs Vital signs: Vital Signs Temp 97.7 F 10/26/20 12:00 Pulse 92 10/26/20 12:00 Resp 20 10/26/20 12:00 BP 121/80 10/26/20 12:00 Pulse Ox 96 10/26/20 12:00 Intake & Output 10/25/20 10/26/20 10/26/20 18:59 06:59 18:59 Intake Total 125.833 51.417 Output Total 500 2340 Balance -500 -2214.167 51.417 Weight 171 kg Intake: Intake, IV Titration 125.833 51.417 Amount Cefepime 2 gm In Sodium 100 Chloride 0.9% 100 ml @ 200 mls/hr IVPB Q8HR [facility] Rx#:[id number] Furosemide 100 mg In 25.833 51.417 Sodium Chloride 0.9% 90 ml @ 5 MG/HR 5 mls/hr IV .Q20H [facility] Rx#:[id number] Output: Urine 500 2340 Uretheral (Swain) 500 Other: Voiding Method Indwelling Catheter Indwelling Catheter # Voids 2 - Labs CBC & Chem 7: 10/25/20 06:03 10/26/20 07:44 Labs: Abnormal Lab Results - Last 24 Hours (Table) 10/25/20 10/26/20 10/26/20 Range/Units 06:03 07:44 07:44 PT 13.8 H (9.0-12.0) sec INR 1.4 H (<1.2) Chloride 94 L (98-107) mmol/L Carbon Dioxide 36 H (22-30) mmol/L BUN 59 H (9-20) mg/dL Creatinine 2.42 H (0.66-1.25) mg/dL BUN/Creatinine Ratio 22.73 H (12.00-20.00) Ratio Glucose 71 L (74-99) mg/dL POC Glucose (mg/dL) (75-99) mg/dL Total Bilirubin 1.5 H (0.2-1.3) mg/dL C-Reactive Protein 3.1 H (<1.0) mg/dL Albumin 3.2 L (3.5-5.0) g/dL 10/26/20 Range/Units 12:06 PT (9.0-12.0) sec INR (<1.2) Chloride (98-107) mmol/L Carbon Dioxide (22-30) mmol/L BUN (9-20) mg/dL Creatinine (0.66-1.25) mg/dL BUN/Creatinine Ratio (12.00-20.00) Ratio Glucose (74-99) mg/dL POC Glucose (mg/dL) 102 H (75-99) mg/dL Total Bilirubin (0.2-1.3) mg/dL C-Reactive Protein (<1.0) mg/dL Albumin (3.5-5.0) g/dL Microbiology - Last 24 Hours (Table) 10/24/20 19:27 Blood Culture - Preliminary Blood No Growth after 24 hours 10/24/20 16:44 Urine Culture - Preliminary Urine,Clean Catch Assessment and Plan Plan: Assessment: 1. Acute kidney injury mostly prerenal secondary to cardiorenal syndrome. Creatinine 2.42 today. No hydronephrosis noted on CAT scan. UA benign. 2. Chronic kidney disease stage IIIB secondary to nephrosclerosis and cardiorenal syndrome. Baseline creatinine near 2. 3. Volume overload. 4. Acute on chronic diastolic CHF with moderate mitral regurgitation and pulmonary hypertension. 5. Diabetes mellitus. 6. Morbid obesity. 7. Hypokalemia from diuresis. Plan: Maintain Lasix drip. Maintain metolazone 5 mg once daily. Low-salt diet and 1500 mL fluid restriction. Maintain midodrine 5 mg 3 times daily. To be held for systolic blood pressure greater than 110. Daily weights. Continue to monitor renal function and urine output. Scheduled for paracentesis today. I will give him 25 g of albumin and pre-and post procedure. Potassium being replaced.
--- NOTE | 2020-10-26 14:33 | P.PN ---
Subjective Progress Note Date: 10/26/20 Principal diagnosis: Acute on chronic diastolic congestive heart failure This is a 50-year-old white male with history of multiple medical problems including chronic systolic congestive heart failure, chronic atrial fibrillation, history of deep vein thrombosis, hypertension, obstructive sleep apnea syndrome, and previous myocardial infarction. chronic obstructive pulmonary disease, morbid obesity, patient has been at [facility], patient has been complaining of few weeks history of abdominal distention and abdominal pain. Pain was associated with nausea and vomiting, no fever, no chills, no melena, no hematemesis. No diarrhea, no constipation. Patient had p reviously multiple abdominal surgeries and multiple abdominal wall wounds with suspected cellulitis involving the abdominal wall. Patient has been mostly bedridden for the last 2 weeks according to him because of previous left knee injury. Patient has also been complaining of significant swelling in both extremities. Remind you the patient is not a great historian. In the emergency room, patient had a CT of the abdomen and pelvis, and it showed bilateral pleural effusions and cardiomegaly, bibasilar atelectasis/infiltrates, and massive abdominal ascites. There is also extensive subcutaneous edema. Patient was admitted by Dr. Rubi, and he seems to be concerned about the possibility of sepsis, and I was asked to see the patient on consultation. Pulmonary-marsh, the patient denies any cough, no wheezing, no fever, no chills, no hemoptysis, no chest pain. And I reviewed the chest x-ray I also reviewed the CT of the chest, I think the findings are mostly findings of interstitial edema and fluid overload. I reviewed the chart on this patient, patient was last discharged from [facility] on 09/09/2020, patient had similar problems, and apparently he wasn't compliant with his medications he was eventually discharged home on Aldactone, Eliquis, Lasix 60 mg by mouth twice a day, and multiple other medications including bronchodilators. Based on the last note from the admitting physician, patient is known to have noncompliance with medications. Patient was reevaluated today on 10/26/2020, he is on Lasix drip, he is on 4 L nasal cannula, and his O2 saturation is in the 90s. However the patient is lethargic, arousable, follows simple instructions but nonetheless he is lethargic. I did recommend that the patient goes on BiPAP with IPAP of 12 and EPAP of 6, and FiO2 of 35%. In the meantime I have recommended that we continue diuresing the patient. Patient is in negative balance, almost 3 L since admission. WBC count today is 3.96 hemoglobin is 13.2. Electrolytes are normal BUN is 59 and creatinine 2.42, slightly worse compared to the last couple of days. His last creatinine was 2.29. Abdominal ultrasound showed mostly ascites and the patient is being considered for large volume paracentesis by interventional radiology. Objective - Vital Signs Vital signs: Vital Signs Temp 97.7 F 10/26/20 12:00 Pulse 92 10/26/20 14:00 Resp 20 10/26/20 14:00 BP 121/80 10/26/20 12:00 Pulse Ox 96 10/26/20 12:00 Intake & Output 10/25/20 10/26/20 10/26/20 18:59 06:59 18:59 Intake Total 125.833 171.417 Output Total 500 2340 1925 Balance -500 -2214.167 -1753.583 Weight 171 kg Intake: Intake, IV Titration 125.833 51.417 Amount Cefepime 2 gm In Sodium 100 Chloride 0.9% 100 ml @ 200 mls/hr IVPB Q8HR [facility] Rx#:[id number] Furosemide 100 mg In 25.833 51.417 Sodium Chloride 0.9% 90 ml @ 5 MG/HR 5 mls/hr IV .Q20H [facility] Rx#:[id number] Oral 120 Output: Urine 500 2340 1925 Uretheral (Swain) 500 Other: Voiding Method Indwelling Catheter Indwelling Catheter # Voids 2 - Exam Physical Exam: 50-year-old white male obese, edematous all over, on 4 L nasal cannula O2 sats 94%, patient is lethargic, but arousable and follows instructions. Head: Atraumatic, normocephalic. HEENT:[Neck is supple.] [No neck masses.] [No thyromegaly.] PERRLA, EOMI, moist mucous membranes. Chest: [Diminished breath sounds at the bases with minimal crackles bilaterally. No rhonchi and no wheezes.] Cardiac Exam: [Irregular irregular rhythm. Normal S1 and S2, no S3 gallop, 2/6 systolic murmur thought the precordium.] Abdomen: Distended abdomen. [Morbidly obese, Soft, nontender, no megaly, no rebound, no guarding, normal bowel sounds.] Multiple superficial ulcerations and wounds noted in the abdominal wall and multiple areas of herniations noted with surgical scars are noted. Extremities: [ chronic venous stasis changes noted bilaterally in both lower extremities. Brownish discoloration of lower extremities noted. No calf tenderness. 1+ bipedal edema noted. Neurological Exam: Lethargic, but arousable and seems oriented 3, slight confusion noted. And poor historian. Psychiatric: Depressed mood, blunt affect, lethargy and confusion noted. - Labs CBC & Chem 7: 10/25/20 06:03 10/26/20 07:44 Labs: Abnormal Lab Results - Last 24 Hours (Table) 10/26/20 10/26/20 10/26/20 Range/Units 07:44 07:44 12:06 PT 13.8 H (9.0-12.0) sec INR 1.4 H (<1.2) Chloride 94 L (98-107) mmol/L Carbon Dioxide 36 H (22-30) mmol/L BUN 59 H (9-20) mg/dL Creatinine 2.42 H (0.66-1.25) mg/dL Glucose 71 L (74-99) mg/dL POC Glucose (mg/dL) 102 H (75-99) mg/dL Total Bilirubin 1.5 H (0.2-1.3) mg/dL C-Reactive Protein 3.1 H (<1.0) mg/dL Albumin 3.2 L (3.5-5.0) g/dL Microbiology - Last 24 Hours (Table) 10/24/20 19:27 Blood Culture - Preliminary Blood No Growth after 24 hours 10/24/20 16:44 Urine Culture - Preliminary Urine,Clean Catch Assessment and Plan Assessment: Impression: Acute on chronic diastolic congestive heart failure Moderate severe pulmonary hypertension Moderate severe mitral regurgitation Bilateral pleural effusions and bibasilar atelectasis Possible sepsis Strongly doubt pneumonia Massive ascites, recurrent. Abdominal wall cellulitis with multiple nonhealing abdominal wound Chronic kidney disease stage III Chronic atrial fibrillation History of underlying COPD presently inactive Type 2 diabetes. History of deep vein thrombosis Benign essential hypertension Obstructive sleep apnea syndrome History of hypothyroidism History of coronary artery disease and previous stent placement Morbid obesity with BMI of 45.3. History of noncompliance with medical therapy. Recommendation: Continue diuretics , Lasix drip. Patient is being considered for paracentesis. Continue to monitor daily weights and I's and O's. Continue empiric antibiotics patient is presently on cefepime and vancomycin until further cultures are available. Blood cultures and urine cultures are neg ative so far. Patient to be evaluated by interventional radiology for possible paracentesis Continue Eliquis Continue bronchodilators. Placed BiPAP at bedside, use as needed We'll continue to follow Time with Patient: Less than 30
[2020-10-26] MEDS ORDERED: MIDODRINE 5 MG TAB PO ONE (15:10)
--- NOTE | 2020-10-26 16:10 | US ---
Ultrasound-guided paracentesis. DATE OF EXAM: 10/26/2020 CLINICAL HISTORY: Ascites The procedure was discussed with the patient. The risks, complications, benefits, and alternatives we re discussed and any questions were answered. Informed consent was obtained. The patient was placed s upine on the ultrasound table and prepped and draped in the usual sterile fashion. All elements of maximal barrier technique were utilized. Under ultrasound guidance, access into the right lower quadrant was obtained, via the paracentesis catheter system and direct ultrasound guidanc e. Approximately 9.3 liters of straw-colored fluid was removed. The patient was stable throughout the pr ocedure and remained stable upon completion of the exam. Sample sent to pathology for analysis. IMPRESSION: Successful paracentesis under ultrasound guidance.
[2020-10-26] MEDS: PANTOPRAZOLE 40 MG TABLET PO SCH (16:45)
[2020-10-26 17:16] LABS: Glucose,Whole Blood 64 mg/dL (75-99)
[2020-10-26 17:33] LABS: Glucose,Whole Blood 72 mg/dL (75-99)
[2020-10-26] MEDS ORDERED: Magnesium Replacement Protocol 1 EACH MISC MISCELLANE PRN (17:51)
[2020-10-26] MEDS ORDERED: Potassium Replacement Protocol 1 EACH MISC MISCELLANE PRN (17:51)
[2020-10-26 19:47] LABS: Appearance,BF Clear; Color,BF Yellow; Nucleated Cells, Body Fluid 12 /uL; RBC, Body Fluid 50 /uL
[2020-10-26 19:52] LABS: Potassium 3.4 mmol/L (3.5-5.1)
[2020-10-26 19:53] LABS: Albumin 3.4 g/dL (3.5-5.0); Calcium 9.5 mg/dL (8.4-10.2); Total Bilirubin 1.8 mg/dL (0.2-1.3); Total Protein 6.2 g/dL (6.3-8.2)
--- NOTE | 2020-10-26 19:58 | PN ---
PROGRESS NOTE DATE OF SERVICE: 10/26/2020 This 50-year-old gentleman who was admitted with multiple complex medical issues still continues to be confused with fluctuating sensorium. The patient is on empiric antibiotics for presumed sepsis. The patient also had massive ascites. Abdominal paracentesis revealed about 9.3 liters of straw-colored fluid. The fluid results are pending at this time. No chest pain. No palpitations. Past medical history reviewed. REVIEW OF SYSTEMS: CARDIOVASCULAR SYSTEM: No angina, palpitations. RESPIRATORY SYSTEM: As mentioned earlier. GI: As mentioned earlier. : No dysuria or retention. NERVOUS SYSTEM: No numbness, weakness. CURRENT MEDICATIONS: Reviewed. They include Tylenol, albumin, DuoNeb, aspirin, Lipitor, Wellbutrin, cefepime, Neurontin. Other medications and doses are reviewed. PHYSICAL EXAMINATION: Patient alert oriented x2, mildly confused. Pulse 85, blood pressure 85/64, respiration 13, temperature 98.2, pulse ox 100% on BiPAP. HEENT: Conjunctivae normal. NECK: No jugular venous distention. CARDIOVASCULAR SYSTEM: S1, S2 muffled. RESPIRATORY SYSTEM: Breath sounds diminished at the bases. A few scattered rhonchi and crackles. ABDOMEN: Soft, obese, non-tender. LEGS: No edema. No swelling. NERVOUS SYSTEM: No focal deficit. LABS: WBC 3.96, hemoglobin 13.2. INR is 1.4 and creatinine is 2.42. ASSESSMENT: 1. Change in mental status with possible acute sepsis with possible acute bilateral pneumonia with aspiration with Gram-negative sepsis. 2. Massive ascites of undetermined etiology. 3. Multiple nonhealing subcutaneous abdominal wall wounds. 4. Ascites, possibly secondary to chronic liver disease. 5. Status post abdominal paracentesis for about 9.3 L of straw-colored fluid. 6. Chronic kidney disease, stage 3. 7. Elevated bilirubin. 8. History of atrial fibrillation, chronic. 9. History of asthma, chronic obstructive pulmonary disease. 10.History of coronary artery disease. 11.History of chest pain angina. 12.History of congestive heart failure. 13.Diabetes mellitus, type 2. 14.History of deep vein thrombosis. 15.Hyperlipidemia. 16.Hypertension. 17.History of myocardial infarction. 18.History of sleep apnea. 19.History of chronic kidney disease. 20.Hypothyroidism. 21.History of tracheobronchitis. 22.History of deep venous thrombosis of the left leg in 2004. 23.History of obstructive sleep apnea. 24.History of hiatal hernia. 25.History of methicillin-resistant Staphylococcus aeruginosa. 26.History of coronary artery disease, stent. 27.History of colonoscopy. 28.History of obesity with body mass index of 44.6. 29.FULL CODE. RECOMMENDATIONS AND DISCUSSION: I recommend to continue current medications, continue with the monitoring, symptomatic treatment. Cultures are negative so far. I would also recommend a serum ammonia level. The abdominal ultrasound showed only ascites. Will continue to monitor. Guarded prognosis because of multiple complex medical problems. See orders for details. MMODL / IJN: [id number] /
[2020-10-26 20:09] LABS: Glucose,Whole Blood 114 mg/dL (75-99)
[2020-10-26] MEDS: ATORVASTATIN 40 MG TAB PO SCH (20:30)
[2020-10-26] MEDS: GABAPENTIN 300 MG CAP PO SCH (20:30)
[2020-10-26] MEDS: SERTRALINE 50 MG TAB PO SCH (20:30)
[2020-10-26] MEDS ORDERED: INSULIN DETEMIR (LEVEMIR) 100 UNIT/ML SYR SQ SCH (21:00)
--- NOTE | 2020-10-26 21:33 | PN ---
PROGRESS NOTE DATE OF SERVICE: 10/26/2020 REASON FOR FOLLOWUP: Infection. INTERVAL HISTORY: The patient is currently afebrile. The patient is status post paracentesis with removal of 9.3 L of ascitic fluid. The patient tolerated the procedure. No chest pain, shortness of breath or cough. No vomiting or diarrhea. PHYSICAL EXAMINATION: Blood pressure 102/66, pulse of 71, temperature 98.2. He is 100% on 4 L nasal cannula. General description: Middle-aged male lying in bed in no distress. Respiratory system: Unlabored breathing, clear to auscultation anteriorly., Heart S1, S2. Regular rate and rhythm. ABDOMEN: Soft, mildly distended. No guarding. No rigidity. LABS: BUN of 58, creatinine 2.10. Abdominal fluid is ascitic, 15 RBC, only 12 WBC. DIAGNOSTIC IMPRESSION/PLAN: 1. Patient admitted to the hospital with abdominal pain, significant ascites, status post paracentesis. Fluid is clear. No evidence of any infection. 2. Patient is afebrile. White count normal, cultures remain negative. Antibiotic will be discontinued. 3. Continue supportive care. MMODL / IJN: [id number] /
[2020-10-27] MEDS: IPRATROPIUM-ALBUTEROL 3 ML NEB INHALATION SCH ×4 (02:04→19:39)
[2020-10-27 04:36] LABS: Albumin, Fluid Source Paracentesis Fluid
[2020-10-27] MEDS: MIDODRINE 5 MG TAB PO SCH ×3 (06:05→16:30)
[2020-10-27] MEDS: PANTOPRAZOLE 40 MG TABLET PO SCH ×2 (06:05→16:30)
[2020-10-27 06:17] LABS: Glucose,Whole Blood 112 mg/dL (75-99)
[2020-10-27] MEDS: MULTIVITAMINS, THERA 1 EACH TAB PO SCH (08:30)
[2020-10-27] MEDS: metOLazone 5 MG TAB PO SCH (08:30)
[2020-10-27] MEDS: buPROPion XL 150 MG TAB.ER.24H PO SCH (08:30)
[2020-10-27] MEDS: METOPROLOL TARTRATE 25 MG TAB PO SCH ×2 (08:30→19:44)
[2020-10-27] MEDS: FOLIC ACID 1 MG TAB PO SCH (08:30)
[2020-10-27] MEDS: ASPIRIN 81 MG PO SCH (08:30)
[2020-10-27] MEDS: SPIRONOLACTONE 25 MG TAB PO SCH (08:30)
[2020-10-27] MEDS: CEFEPIME 2 GM in SODIUM CHLORIDE 0.9% 100 ML IVPB SCH ×2 (08:30→19:48)
[2020-10-27] MEDS: SENNOSIDES 8.6 MG TAB PO SCH ×2 (08:30→19:45)
[2020-10-27 09:14] LABS: Calcium 9.4 mg/dL (8.4-10.2); Magnesium 1.8 mg/dL (1.6-2.3); Potassium 3.2 mmol/L (3.5-5.1)
[2020-10-27 09:20] LABS: Anisocytosis Moderate; Basophils # (A) 0.1 k/uL (0-0.2); Basophils % (A) 1 %; Eosinophils # (A) 0.2 k/uL (0-0.7); Eosinophils % (A) 4 %; HGB 13.1 gm/dL (13.0-17.5); Hypochromasia Marked; Lymphocytes # (A) 1.1 k/uL (1.0-4.8); Lymphocytes % (A) 20 %; MCH 24.8 pg (25.0-35.0); MCHC 30.5 g/dL (31.0-37.0); MCV 81.5 fL (80.0-100.0); Mean Platelet Volume 9.7; Microcytosis Slight; Monocytes # (A) 0.5 k/uL (0-1.0); Monocytes % (A) 9 %; Neutrophils # (A) 3.4 k/uL (1.3-7.7); Neutrophils % (A) 64 %; Platelet Count 135 k/uL (150-450); Poikilocytosis Slight; RBC 5.28 m/uL (4.30-5.90); RDW 21.9 % (11.5-15.5); WBC 5.3 k/uL (3.8-10.6)
[2020-10-27] MEDS ORDERED: Potassium Replacement Protocol 1 EACH MISC MISCELLANE PRN (09:58)
[2020-10-27] MEDS: POTASSIUM CHLORIDE ER 20 MEQ TAB.ER PO SCH ×3 (10:47→13:19)
--- NOTE | 2020-10-27 11:05 | P.PN ---
Subjective Patient is seen in follow-up for acute kidney injury on chronic kidney disease. Renal function fairly stable. Diuresis well with Lasix drip. Also underwent paracentesis on October 26 with nearly 9 L drained. Oral intake fair. Vital signs are stable. General: The patient appeared well nourished and normally developed. HEENT: Head exam is unremarkable. LUNGS: Breath sounds decreased. HEART: Rate and Rhythm are regular. ABDOMEN: Obese. EXTREMITITES: Chronic changes noted. 1+ edema. Objective - Vital Signs Vital signs: Vital Signs Temp 97.9 F 10/27/20 08:29 Pulse 86 10/27/20 08:29 Resp 18 10/27/20 08:29 BP 100/63 10/27/20 08:29 Pulse Ox 100 10/27/20 08:29 Intake & Output 10/26/20 10/27/20 10/27/20 18:59 06:59 18:59 Intake Total 171.417 535.75 480 Output Total 1925 4675 Balance -1753.583 -4139.25 480 Weight 158 kg Intake: Intake, IV Titration 51.417 55.75 Amount Furosemide 100 mg In 51.417 55.75 Sodium Chloride 0.9% 90 ml @ 5 MG/HR 5 mls/hr IV .Q20H [facility] Rx#:[id number] Oral 120 480 480 Output: Urine 1925 4675 Other: Voiding Method Indwelling Catheter Indwelling Catheter Indwelling Catheter # Voids 0 # Bowel Movements 0 - Labs CBC & Chem 7: 10/27/20 07:55 10/27/20 07:55 Labs: Abnormal Lab Results - Last 24 Hours (Table) 10/26/20 10/26/20 10/26/20 Range/Units 07:44 12:06 17:13 MCH (25.0-35.0) pg MCHC (31.0-37.0) g/dL RDW (11.5-15.5) % Plt Count (150-450) k/uL Potassium (3.5-5.1) mmol/L Chloride (98-107) mmol/L Carbon Dioxide (22-30) mmol/L BUN (9-20) mg/dL Creatinine (0.66-1.25) mg/dL Glucose (74-99) mg/dL POC Glucose (mg/dL) 102 H 64 L (75-99) mg/dL Total Bilirubin (0.2-1.3) mg/dL Total Protein (6.3-8.2) g/dL Albumin (3.5-5.0) g/dL Procalcitonin 0.29 H (0.02-0.09) ng/mL 10/26/20 10/26/20 10/26/20 Range/Units 17:31 19:17 20:07 MCH (25.0-35.0) pg MCHC (31.0-37.0) g/dL RDW (11.5-15.5) % Plt Count (150-450) k/uL Potassium 3.4 L (3.5-5.1) mmol/L Chloride 96 L (98-107) mmol/L Carbon Dioxide 31 H (22-30) mmol/L BUN 58 H (9-20) mg/dL Creatinine 2.10 H (0.66-1.25) mg/dL Glucose 110 H (74-99) mg/dL POC Glucose (mg/dL) 72 L 114 H (75-99) mg/dL Total Bilirubin 1.8 H (0.2-1.3) mg/dL Total Protein 6.2 L (6.3-8.2) g/dL Albumin 3.4 L (3.5-5.0) g/dL Procalcitonin (0.02-0.09) ng/mL 10/27/20 10/27/20 10/27/20 Range/Units 06:15 07:55 07:55 MCH 24.8 L (25.0-35.0) pg MCHC 30.5 L (31.0-37.0) g/dL RDW 21.9 H (11.5-15.5) % Plt Count 135 L (150-450) k/uL Potassium 3.2 L (3.5-5.1) mmol/L Chloride 91 L (98-107) mmol/L Carbon Dioxide 40 H (22-30) mmol/L BUN 60 H (9-20) mg/dL Creatinine 2.20 H (0.66-1.25) mg/dL Glucose 105 H (74-99) mg/dL POC Glucose (mg/dL) 112 H (75-99) mg/dL Total Bilirubin (0.2-1.3) mg/dL Total Protein (6.3-8.2) g/dL Albumin (3.5-5.0) g/dL Procalcitonin (0.02-0.09) ng/mL Microbiology - Last 24 Hours (Table) 10/26/20 14:42 Gram Stain - Preliminary Paracentesis Fluid Body Fluid Culture - Preliminary 10/24/20 19:27 Blood Culture - Preliminary Blood No Growth after 48 hours 10/24/20 16:44 Urine Culture - Final Urine,Clean Catch Assessment and Plan Plan: Assessment: 1. Acute kidney injury mostly prerenal secondary to cardiorenal syndrome. Renal function fairly stable. Creatinine 2.1. No hydronephrosis noted on CAT scan. UA benign. 2. Chronic kidney disease stage IIIB secondary to nephrosclerosis and cardiorenal syndrome. Baseline creatinine near 2. 3. Volume overload. Improving with diuresis. 4. Acute on chronic diastolic CHF with moderate mitral regurgitation and pulmonary hypertension. 5. Diabetes mellitus. 6. Morbid obesity. 7. Hypokalemia from diuresis. Plan: Maintain Lasix drip. Maintain metolazone 5 mg once daily. Low-salt diet and 1500 mL fluid restriction. Maintain midodrine 5 mg 3 times daily. To be held for systolic blood pressure greater than 110. Daily weights. Continue to monitor renal function and urine output. Replace potassium.
[2020-10-27 12:01] LABS: Glucose,Whole Blood 121 mg/dL (75-99)
[2020-10-27] MEDS: FUROSEMIDE 100 MG in SODIUM CHLORIDE 0.9% 90 ML IV SCH (12:20)
--- NOTE | 2020-10-27 13:36 | P.PN ---
Subjective Progress Note Date: 10/27/20 Principal diagnosis: Acute on chronic diastolic congestive heart failure This is a 50-year-old white male with history of multiple medical problems including chronic systolic congestive heart failure, chronic atrial fibrillation, history of deep vein thrombosis, hypertension, obstructive sleep apnea syndrome, and previous myocardial infarction. chronic obstructive pulmonary disease, morbid obesity, patient has been at [facility], patient has been complaining of few weeks history of abdominal distention and abdominal pain. Pain was associated with nausea and vomiting, no fever, no chills, no melena, no hematemesis. No diarrhea, no constipation. Patient had p reviously multiple abdominal surgeries and multiple abdominal wall wounds with suspected cellulitis involving the abdominal wall. Patient has been mostly bedridden for the last 2 weeks according to him because of previous left knee injury. Patient has also been complaining of significant swelling in both extremities. Remind you the patient is not a great historian. In the emergency room, patient had a CT of the abdomen and pelvis, and it showed bilateral pleural effusions and cardiomegaly, bibasilar atelectasis/infiltrates, and massive abdominal ascites. There is also extensive subcutaneous edema. Patient was admitted by Dr. Rubi, and he seems to be concerned about the possibility of sepsis, and I was asked to see the patient on consultation. Pulmonary-marsh, the patient denies any cough, no wheezing, no fever, no chills, no hemoptysis, no chest pain. And I reviewed the chest x-ray I also reviewed the CT of the chest, I think the findings are mostly findings of interstitial edema and fluid overload. I reviewed the chart on this patient, patient was last discharged from [facility] on 09/09/2020, patient had similar problems, and apparently he wasn't compliant with his medications he was eventually discharged home on Aldactone, Eliquis, Lasix 60 mg by mouth twice a day, and multiple other medications including bronchodilators. Based on the last note from the admitting physician, patient is known to have noncompliance with medications. Patient was reevaluated today on 10/26/2020, he is on Lasix drip, he is on 4 L nasal cannula, and his O2 saturation is in the 90s. However the patient is lethargic, arousable, follows simple instructions but nonetheless he is lethargic. I did recommend that the patient goes on BiPAP with IPAP of 12 and EPAP of 6, and FiO2 of 35%. In the meantime I have recommended that we continue diuresing the patient. Patient is in negative balance, almost 3 L since admission. WBC count today is 3.96 hemoglobin is 13.2. Electrolytes are normal BUN is 59 and creatinine 2.42, slightly worse compared to the last couple of days. His last creatinine was 2.29. Abdominal ultrasound showed mostly ascites and the patient is being considered for large volume paracentesis by interventional radiology. Reevaluated today on 10/27/2020, patient seems to be breathing a lot better, not in any distress, patient is complaining of generalized weakness, continues to diurese with Lasix drip, and the patient had a paracentesis done yesterday, nearly 9 L of fluids were drained. Patient remains in negative balance, and his creatinine is in the range of 2.1. His baseline usually is 2. Patient is obviously improving, and he is being followed by many other consultants is also on antibiotics for his abdominal wall cellulitis, not in any form of respiratory distress Objective - Vital Signs Vital signs: Vital Signs Temp 97.9 F 10/27/20 12:02 Pulse 70 10/27/20 13:13 Resp 18 10/27/20 13:13 BP 101/59 10/27/20 12:02 Pulse Ox 100 10/27/20 12:02 Intake & Output 10/26/20 10/27/20 10/27/20 18:59 06:59 18:59 Intake Total 171.417 535.75 799.25 Output Total 1925 4675 950 Balance -1753.583 -4139.25 -150.75 Weight 158 kg Intake: Intake, IV Titration 51.417 55.75 79.25 Amount Furosemide 100 mg In 51.417 55.75 79.25 Sodium Chloride 0.9% 90 ml @ 5 MG/HR 5 mls/hr IV .Q20H [facility] Rx#:[id number] Oral 120 480 720 Output: Urine 1925 4675 950 Other: Voiding Method Indwelling Catheter Indwelling Catheter Indwelling Catheter # Voids 0 # Bowel Movements 0 - Exam Physical Exam: 50-year-old white male obese, edematous, not in distress, patient is on 4 L nasal cannula, and his O2 saturation is 100%. Head: Atraumatic, normocephalic. Short obese neck. HEENT:[Neck is supple.] [No neck masses.] [No thyromegaly.] PERRLA, EOMI, moist mucous membranes. Chest: [Diminished breath sounds at the bases with minimal crackles bilaterally. No rhonchi and no wheezes.] Cardiac Exam: [Irregular irregular rhythm. Normal S1 and S2, no S3 gallop, 2/6 systolic murmur thought the precordium.] Abdomen: Distended abdomen. [Morbidly obese, Soft, nontender, no megaly, no rebound, no guarding, normal bowel sounds.] Multiple superficial ulcerations and wounds noted in the abdominal wall and multiple areas of herniations noted with surgical scars are noted. Extremities: [ chronic venous stasis changes noted bilaterally in both lower extremities. Brownish discoloration of lower extremities noted. No calf tenderness. Bipedal edema noted. Neurological Exam: Alert and oriented 3 in no gross focal deficit today, patient is more awake. Psychiatric: Depressed mood, blunt affect, normal mental status noted today. - Labs CBC & Chem 7: 10/27/20 07:55 10/27/20 07:55 Labs: Abnormal Lab Results - Last 24 Hours (Table) 10/26/20 10/26/20 10/26/20 Range/Units 07:44 17:13 17:31 MCH (25.0-35.0) pg MCHC (31.0-37.0) g/dL RDW (11.5-15.5) % Plt Count (150-450) k/uL Potassium (3.5-5.1) mmol/L Chloride (98-107) mmol/L Carbon Dioxide (22-30) mmol/L BUN (9-20) mg/dL Creatinine (0.66-1.25) mg/dL Glucose (74-99) mg/dL POC Glucose (mg/dL) 64 L 72 L (75-99) mg/dL Total Bilirubin (0.2-1.3) mg/dL Total Protein (6.3-8.2) g/dL Albumin (3.5-5.0) g/dL Procalcitonin 0.29 H (0.02-0.09) ng/mL 10/26/20 10/26/20 10/27/20 Range/Units 19:17 20:07 06:15 MCH (25.0-35.0) pg MCHC (31.0-37.0) g/dL RDW (11.5-15.5) % Plt Count (150-450) k/uL Potassium 3.4 L (3.5-5.1) mmol/L Chloride 96 L (98-107) mmol/L Carbon Dioxide 31 H (22-30) mmol/L BUN 58 H (9-20) mg/dL Creatinine 2.10 H (0.66-1.25) mg/dL Glucose 110 H (74-99) mg/dL POC Glucose (mg/dL) 114 H 112 H (75-99) mg/dL Total Bilirubin 1.8 H (0.2-1.3) mg/dL Total Protein 6.2 L (6.3-8.2) g/dL Albumin 3.4 L (3.5-5.0) g/dL Procalcitonin (0.02-0.09) ng/mL 10/27/20 10/27/20 10/27/20 Range/Units 07:55 07:55 12:00 MCH 24.8 L (25.0-35.0) pg MCHC 30.5 L (31.0-37.0) g/dL RDW 21.9 H (11.5-15.5) % Plt Count 135 L (150-450) k/uL Potassium 3.2 L (3.5-5.1) mmol/L Chloride 91 L (98-107) mmol/L Carbon Dioxide 40 H (22-30) mmol/L BUN 60 H (9-20) mg/dL Creatinine 2.20 H (0.66-1.25) mg/dL Glucose 105 H (74-99) mg/dL POC Glucose (mg/dL) 121 H (75-99) mg/dL Total Bilirubin (0.2-1.3) mg/dL Total Protein (6.3-8.2) g/dL Albumin (3.5-5.0) g/dL Procalcitonin (0.02-0.09) ng/mL Microbiology - Last 24 Hours (Table) 10/26/20 14:42 Gram Stain - Preliminary Paracentesis Fluid Body Fluid Culture - Preliminary 10/24/20 19:27 Blood Culture - Preliminary Blood No Growth after 48 hours 10/24/20 16:44 Urine Culture - Final Urine,Clean Catch Assessment and Plan Assessment: Impression: Acute on chronic diastolic congestive heart failure Moderate severe pulmonary hypertension Moderate severe mitral regurgitation Bilateral pleural effusions and bibasilar atelectasis Possible sepsis Strongly doubt pneumonia Massive ascites, recurrent. Abdominal wall cellulitis with multiple nonhealing abdominal wound Chronic kidney disease stage III Chronic atrial fibrillation History of underlying COPD presently inactive Type 2 diabetes. History of deep vein thrombosis Benign essential hypertension Obstructive sleep apnea syndrome History of hypothyroidism History of coronary artery disease and previous stent placement Morbid obesity with BMI of 45.3. History of noncompliance with medical therapy. Status post paracentesis, large volume were and 9 L were drained. This was done on 10/26 by interventional radiology. Recommendation: Continue diuretics , being handled by nephrology on the case. Continue to monitor daily weights and I's and O's. Continue empiric antibiotics, cultures remain negative so far. Gram stain on the paracentesis fluid is negative Resume Eliquis Continue bronchodilators. Use BiPAP as needed We'll continue to follow as needed Time with Patient: Less than 30
--- NOTE | 2020-10-27 15:54 | CDI ---
Documentation Clarification Form Date: 10/27/2020 03:40:16 PM From: Dee Dee HollisARPIT sweeney, CCDS Admit Date: 10/24/2020 06:13:00 PM Patient Name: Maximo Cerna Visit Number: [id number] Discharge Date: ATTENTION: The Clinical Documentation Specialists (CDI) and [facility] Coding Staff appreciate your assistance in clarifying documentation. Please respond to the clarification below the line at the bottom and electronically sign. The CDI & [facility] Coding staff will review the response and follow-up if needed. Please note: Queries are made part of the Legal Health Record. If you have any questions, please contact the author of this message via ITS. Dr. Joshua Rubi: Per the 10/24 H/P & subsequent Progress Notes: Change in mental status with possible acute Sepsis with possible bilateral Pneumonia with Aspiration with Gram negative Sepsis. Patient is confused, unable to provide a complete coherent history. Per the 10/26 Pulmonary Progress Note: Lethargic but arousable, oriented x3, slight confusion. Depressed mood, blunt effect, lethargy and confusion. Additional clarification regarding the diagnosis of Change in mental status with Sepsis and possible Pneumonia and continued confusion is requested. History/Risk Factors per the 10/24 ED Note: COPD, CHF, Atrial Fibrillation, Asthma, CAD, DM, DVT, Hyperlipidemia, Hypertension, NV, CKD IIIb, Sleep Apnea, Obesity w/BMI >40, MRSA and Former smoker. Clinical Indicators: Presented to the ED on 10/24 via EMS from a nursing facility with abdominal pain and lethargy for several weeks, nausea & vomiting, decreased oral appetite. Has multiple chronic abdominal wall wounds. ED Clinical Impression: Abdominal pain, Nausea and vomiting, Chronic A-fib, Acute on Chronic Diastolic CHF 10/24 VS: T 98.9 - 96.8, P 69, R 18 - 21, BP 100/78, PO 100 on 4Lnc - 93 4Lnc, BMI: 50.0 10/24 LAB: Lymph 0.97, PT 13.9, INR 1.4, APTT 40.3, Cl 94, CO2 37, BUN 60, Cr 2.29, Total Bili 1.4, Albumin 3.3 10/24 UA, Infl A/B, RSV & COVID negative 10/24 CT Abdomen/Pelvis: Bilateral pleural effusions with cardiomegaly. Basilar pulmonary infiltrates. his could relate to some chronic congestive heart failure. This appears new compared to old exam. There is massive abdominal ascites. There is extensive subcutaneous edema. This could relate to chronic congestive heart failure. This appears new compared to old exam. Hepatosplenomegaly. No free air. Treatment 10/24: IV Cefepime, IV Vancomycin, Heparin sq. 10/25: INH Duoneb, IV Lasix. 10/26: IV Albumin x2. 10/25 Abdominal Paracentesis for analysis. Consults: Please clarify the type of encephalopathy, if known: [ ] Metabolic Encephalopathy [ ] Septic Encephalopathy [ ] Toxic Encephalopathy [ ] Other, please specify [ ] Unable to determine (Template Last Revised: August 2020) Metabolic Encephalopathy MTDD
[2020-10-27 16:54] LABS: Glucose,Whole Blood 169 mg/dL (75-99)
[2020-10-27] MEDS: SERTRALINE 50 MG TAB PO SCH (19:45)
[2020-10-27] MEDS: ATORVASTATIN 40 MG TAB PO SCH (19:45)
[2020-10-27] MEDS: GABAPENTIN 300 MG CAP PO SCH (19:45)
--- NOTE | 2020-10-27 20:27 | PN ---
PROGRESS NOTE DATE OF SERVICE: 10/27/2020 This 50-year-old gentleman admitted with change in mental status and possible sepsis is being closely monitored. The patient had massive ascites which was tapped, and the cultures are negative so far. The patient was suspected to have chronic liver disease, but ammonia was normal. The possibility of CHF is also considered. The patient also has some hypokalemia. The patient also had renal failure. Multiple consultants are following the patient closely. Patient is currently on cefepime. Past medical history reviewed. REVIEW OF SYSTEMS: CARDIOVASCULAR SYSTEM: No angina, palpitations. RESPIRATORY SYSTEM: As mentioned earlier. GI: As mentioned earlier. : No dysuria or retention. NERVOUS SYSTEM: No numbness, weakness. CURRENT MEDICATIONS: Reviewed. They include DuoNeb, Tylenol, Lipitor, Wellbutrin, cefepime, Levemir, Zaroxolyn, lopressor. Doses are reviewed. PHYSICAL EXAMINATION: Patient is alert, oriented x3. Pulse 90, blood pressure 100/70, respirations 16, temperature 98 degrees, pulse ox 98% on 4 L. HEENT: Conjunctivae normal. NECK: No jugular venous distention. CARDIOVASCULAR SYSTEM: S1, S2 muffled. RESPIRATORY SYSTEM: Breath sounds diminished at the bases. A few scattered rhonchi and crackles. ABDOMEN: Soft. Diffuse distention and abdominal wall wound present. LEGS: No edema. No swelling. NERVOUS SYSTEM: Higher functions as mentioned earlier. Moves all 4 limbs. No focal motor or sensory deficit. LYMPHATICS: No lymph node palpable in neck, axillae or groin. SKIN: No ulcer, rash, bleeding. JOINTS: No active deforming arthropathy. LABS: WBC 5.3. Platelets are 135. Sodium 139, potassium 3.2. Creatinine is 2.20. Other labs are noted. ASSESSMENT: 1. Change in mental status with possible acute sepsis with possible acute bilateral pneumonia, aspiration, with Gram-negative sepsis. 2. Massive ascites, undetermined etiology, status post abdominal paracentesis. 3. Multiple nonhealing subcutaneous abdominal wall wounds. 4. Ascites possibly secondary to congestive heart failure. No evidence of chronic liver disease at this time. 5. Status post abdominal paracentesis for about 9.3 liters of straw-colored fluid. 6. Chronic kidney disease, stage 3. 7. Elevated bilirubin. 8. Hypokalemia. 9. History of atrial fibrillation, chronic. 10.History of asthma, chronic obstructive pulmonary disease. 11.Congestive heart failure, acute exacerbation, with acute on chronic diastolic dysfunction, ejection fraction 55% to 60%. 12.History of coronary artery disease. 13.History of chest pain, angina. 14.History of congestive heart failure. 15.Diabetes mellitus, type 2. 16.History of deep venous thrombosis. 17.Hyperlipidemia. 18.Hypertension. 19.History of myocardial infarction. 20.History of sleep apnea. 21.History of chronic kidney disease. 22.Hypothyroidism. 23.History of tracheobronchitis. 24.History of deep venous thrombosis of the left leg in 2004. 25.Thrombocytopenia. 26.History of obstructive sleep apnea. 27.History of hiatal hernia. 28.History of methicillin-resistant Staphylococcus aeruginosa. 29.History of coronary artery disease, stent. 30.History of colonoscopy. 31.History of obesity with body mass index of 44.6. 32.FULL CODE. RECOMMENDATIONS AND DISCUSSION: I recommend to continue current medications, continue with the monitoring, symptomatic treatment. Otherwise at this time I would recommend the patient closely follow up with multiple consultants. The patient is off Lasix at this time. Continue with broad- spectrum IV antibiotics. Continue the rest of the medications. PT/OT evaluation; possible ECF rehab. Guarded prognosis because of multiple complex medical issues. Further recommendations to follow. MMODL / IJN: [id number] /
[2020-10-27 20:55] LABS: Glucose,Whole Blood 108 mg/dL (75-99)
[2020-10-27] MEDS: INSULIN DETEMIR (LEVEMIR) 100 UNIT/ML SYR SQ SCH (21:13)
[2020-10-27] MEDS: traMADol 50 MG TAB PO PRN (22:22)
--- NOTE | 2020-10-27 23:04 | PN ---
PROGRESS NOTE DATE OF SERVICE: 10/27/2020 REASON FOR FOLLOWUP: Abdominal wall wound and a question of infection. INTERVAL HISTORY: The patient is currently afebrile, has been breathing comfortably. The patient is still complaining of lower abdominal pain; no worsening and no improvement. No chest pain, shortness of breath or cough. PHYSICAL EXAMINATION: Blood pressure 100/71 with a pulse of 90, temperature 98. He is 98% on 4 L nasal cannula. General description is a middle-aged male lying in bed in no distress. RESPIRATORY SYSTEM: Unlabored breathing. Clear to auscultation anteriorly. HEART: S1, S2. Regular rate and rhythm. ABDOMEN: Soft. Mildly distended. No guarding or rigidity. LABS: Hemoglobin is 13.1, white count 5.3, BUN of 60, creatinine is 2.20. DIAGNOSTIC IMPRESSION AND PLAN: 1. Patient with abdominal wall wounds. Local care to continue with Aquacel Silver dressing. 2. Patient with ascites, status post paracentesis. Fluid did not look infected. Culture negative. Antibiotic can be safely discontinued. Will monitor clinical course closely. MMODL / IJN: [id number] /
[2020-10-28] MEDS: IPRATROPIUM-ALBUTEROL 3 ML NEB INHALATION SCH ×4 (00:31→19:30)
[2020-10-28] MEDS: FUROSEMIDE 100 MG in SODIUM CHLORIDE 0.9% 90 ML IV SCH ×3 (04:58→20:36)
[2020-10-28 06:07] LABS: Glucose,Whole Blood 103 mg/dL (75-99)
[2020-10-28] MEDS: MIDODRINE 5 MG TAB PO SCH ×3 (06:13→15:44)
[2020-10-28] MEDS: PANTOPRAZOLE 40 MG TABLET PO SCH ×2 (06:13→15:44)
[2020-10-28 08:05] LABS: Calcium 9.2 mg/dL (8.4-10.2); Magnesium 1.6 mg/dL (1.6-2.3); Potassium 3.1 mmol/L (3.5-5.1); Total Bilirubin 1.6 mg/dL (0.2-1.3); Total Protein 5.8 g/dL (6.3-8.2)
[2020-10-28] MEDS: MULTIVITAMINS, THERA 1 EACH TAB PO SCH (08:35)
[2020-10-28] MEDS: FOLIC ACID 1 MG TAB PO SCH (08:35)
[2020-10-28] MEDS: CEFEPIME 2 GM in SODIUM CHLORIDE 0.9% 100 ML IVPB SCH (08:35)
[2020-10-28] MEDS: metOLazone 5 MG TAB PO SCH (08:35)
[2020-10-28] MEDS: POTASSIUM CHLORIDE ER 20 MEQ TAB.ER PO SCH ×2 (08:35→11:10)
[2020-10-28] MEDS: SENNOSIDES 8.6 MG TAB PO SCH ×2 (08:35→20:34)
[2020-10-28] MEDS: METOPROLOL TARTRATE 25 MG TAB PO SCH ×2 (08:35→20:34)
[2020-10-28] MEDS: SPIRONOLACTONE 25 MG TAB PO SCH (08:36)
[2020-10-28] MEDS: buPROPion XL 150 MG TAB.ER.24H PO SCH (08:36)
[2020-10-28] MEDS: ASPIRIN 81 MG PO SCH (08:36)
[2020-10-28] MEDS ORDERED: POTASSIUM CHLORIDE ER 20 MEQ TAB.ER PO STA (11:23)
--- NOTE | 2020-10-28 11:24 | P.PN ---
Subjective Patient is seen in follow-up for acute kidney injury on chronic kidney disease. Renal function stable. Diuresing well with Lasix drip. Also underwent paracentesis on October 26 with nearly 9 L drained. Oral intake fair. Vital signs are stable. General: The patient appeared well nourished and normally developed. HEENT: Head exam is unremarkable. LUNGS: Breath sounds decreased. HEART: Rate and Rhythm are regular. ABDOMEN: Obese. EXTREMITITES: Chronic changes noted. 1+ edema. Objective - Vital Signs Vital signs: Vital Signs Temp 97.9 F 10/28/20 11:16 Pulse 95 10/28/20 11:16 Resp 16 10/28/20 11:16 BP 106/64 10/28/20 11:16 Pulse Ox 99 10/28/20 11:16 Intake & Output 10/27/20 10/28/20 10/28/20 18:59 06:59 18:59 Intake Total 799.25 462 Output Total 2375 4550 1900 Balance -1575.75 -2150 -1432 Weight 153 kg Intake: Intake, IV Titration 79.25 Amount Furosemide 100 mg In 79.25 Sodium Chloride 0.9% 90 ml @ 5 MG/HR 5 mls/hr IV .Q20H [facility] Rx#:[id number] Oral 720 462 Output: Urine 2375 4550 1900 Other: Voiding Method Indwelling Catheter Indwelling Catheter Indwelling Catheter - Labs CBC & Chem 7: 10/27/20 07:55 10/28/20 07:29 Labs: Abnormal Lab Results - Last 24 Hours (Table) 10/27/20 10/27/20 10/27/20 Range/Units 12:00 16:53 20:38 Sodium (137-145) mmol/L Potassium (3.5-5.1) mmol/L Chloride (98-107) mmol/L Carbon Dioxide (22-30) mmol/L BUN (9-20) mg/dL Creatinine (0.66-1.25) mg/dL POC Glucose (mg/dL) 121 H 169 H 108 H (75-99) mg/dL Total Bilirubin (0.2-1.3) mg/dL Total Protein (6.3-8.2) g/dL Albumin (3.5-5.0) g/dL 10/28/20 10/28/20 Range/Units 06:03 07:29 Sodium 136 L (137-145) mmol/L Potassium 3.1 L (3.5-5.1) mmol/L Chloride 90 L (98-107) mmol/L Carbon Dioxide 39 H (22-30) mmol/L BUN 57 H (9-20) mg/dL Creatinine 2.11 H (0.66-1.25) mg/dL POC Glucose (mg/dL) 103 H (75-99) mg/dL Total Bilirubin 1.6 H (0.2-1.3) mg/dL Total Protein 5.8 L (6.3-8.2) g/dL Albumin 3.0 L (3.5-5.0) g/dL Microbiology - Last 24 Hours (Table) 10/24/20 19:27 Blood Culture - Preliminary Blood No Growth after 72 hours 10/26/20 14:42 Gram Stain - Preliminary Paracentesis Fluid Body Fluid Culture - Preliminary Assessment and Plan Plan: Assessment: 1. Acute kidney injury mostly prerenal secondary to cardiorenal syndrome. Renal function stable. Creatinine 2.1. No hydronephrosis noted on CAT scan. UA benign. 2. Chronic kidney disease stage IIIB secondary to nephrosclerosis and cardiorenal syndrome. Baseline creatinine near 2. 3. Volume overload. Improving with diuresis. 4. Acute on chronic diastolic CHF with moderate mitral regurgitation and pulmonary hypertension. 5. Diabetes mellitus. 6. Morbid obesity. 7. Hypokalemia from diuresis. Plan: Maintain Lasix drip for now. Maintain metolazone 5 mg once daily. Low-salt diet and 1500 mL fluid restriction. Maintain midodrine 5 mg 3 times daily. To be held for systolic blood pressure greater than 110. Daily weights. Continue to monitor renal function and urine output. Replace potassium and magnesium.
[2020-10-28] MEDS: MAGNESIUM SULFATE-D5W PMX 1 GM in DEXTROSE/WATER 1 100ML.BAG IVPB SCH (11:35)
[2020-10-28 12:10] LABS: Glucose,Whole Blood 189 mg/dL (75-99)
--- NOTE | 2020-10-28 17:20 | PN ---
PROGRESS NOTE DATE OF SERVICE: 10/28/2020 REASON FOR FOLLOWUP: Abdominal wall wound and a question of infection. INTERVAL HISTORY: The patient is currently afebrile. The patient is still complaining of lower abdominal pain, though. No nausea, no vomiting. No chest pain, shortness of breath or cough and no diarrhea. PHYSICAL EXAMINATION: Blood pressure 106/64, pulse of 95, temperature 97.9. He is 99% on 4 L nasal cannula. General description is a middle-aged male lying in bed in no distress. RESPIRATORY SYSTEM: Unlabored breathing. Clear to auscultation anteriorly. HEART: S1, S2. Regular rate and rhythm. ABDOMEN: Soft. Minimally distended. Abdominal wound is currently dressed. EXTREMITIES: Significant swelling. No redness or drainage. LABS: Culture remains negative. BUN of 57, creatinine is 2.11. DIAGNOSTIC IMPRESSION AND PLAN: 1. Patient admitted to hospital with abdominal pain. The patient currently does not have any obvious focus of infection. There was some evidence of gallstone, but no evidence of cholecystitis. Significant ascites but no evidence of any peritonitis. Recommend discontinuing antibiotics and monitor the patient closely off antibiotic therapy. 2. Patient with abdominal wall wound. Local care to continue with Aquacel Silver dressing. MMODL / IJN: [id number] /
[2020-10-28 17:24] LABS: Glucose,Whole Blood 128 mg/dL (75-99)
[2020-10-28 20:25] LABS: Glucose,Whole Blood 116 mg/dL (75-99)
[2020-10-28] MEDS: GABAPENTIN 300 MG CAP PO SCH (20:34)
[2020-10-28] MEDS: INSULIN DETEMIR (LEVEMIR) 100 UNIT/ML SYR SQ SCH (20:35)
[2020-10-28] MEDS: SERTRALINE 50 MG TAB PO SCH (20:35)
[2020-10-28] MEDS: ATORVASTATIN 40 MG TAB PO SCH (20:35)
--- NOTE | 2020-10-28 20:55 | PN ---
PROGRESS NOTE DATE OF SERVICE: 10/28/2020 This 50-year-old gentleman who was admitted with change in mental status and possible acute sepsis is being closely monitored. The patient also had massive ascites. The ascitic fluid final reports showed only 12 nucleated cells; it was found to be an exudative effusion. Past medical history reviewed. REVIEW OF SYSTEMS: CARDIOVASCULAR SYSTEM: No angina, palpitations. RESPIRATORY SYSTEM: As mentioned earlier. GI: As mentioned earlier. : No dysuria or retention. NERVOUS SYSTEM: No numbness, weakness. CURRENT MEDICATIONS: Reviewed. They include Tylenol, DuoNeb, aspirin, Lipitor, Wellbutrin, Levemir, Zaroxolyn, multivitamins, Narcan. PHYSICAL EXAMINATION: Patient is alert, oriented x3. Pulse is 77, blood pressure 155/65, respiration 18, temperature 97.3, pulse ox 96% on 4 L. HEENT: Conjunctivae normal. NECK: No jugular venous distention. CARDIOVASCULAR SYSTEM: S1, S2 muffled. RESPIRATORY SYSTEM: Breath sounds diminished at the bases. A few scattered rhonchi. ABDOMEN: Soft, obese. Abdominal wall wound present. LEGS: No edema. No swelling. NERVOUS SYSTEM: No focal deficit. LABS: Sodium 136, potassium 3.1. Creatinine is 2.11. ASSESSMENT: 1. Change in mental status and possible acute sepsis with possible acute bilateral pneumonia with aspiration with Gram-negative sepsis. 2. Massive ascites of undetermined etiology, status post abdominal paracentesis. 3. Multiple nonhealing subcutaneous abdominal wall wounds. 4. Ascites, possibly secondary to congestive heart failure. No evidence of chronic liver disease at this time. 5. Status post abdominal paracentesis for about 9.3 liters of straw-colored fluid. 6. Chronic kidney disease, stage 3. 7. Elevated bilirubin. 8. Hypokalemia. 9. History of atrial fibrillation, chronic. 10.History of asthma, chronic obstructive pulmonary disease. 11.History of congestive heart failure with acute on chronic diastolic dysfunction, ejection fraction 55% to 60%. 12.History of coronary artery disease. 13.History of chest pain, angina. 14.History of congestive heart failure. 15.Diabetes mellitus, type 2. 16.History of deep venous thrombosis. 17.Hyperlipidemia. 18.Hypertension. 19.History of myocardial infarction. 20.History of sleep apnea. 21.History of chronic kidney disease. 22.Hypothyroidism. 23.History of tracheobronchitis. 24.History of deep venous thrombosis of the left leg in 2004. 25.Thrombocytopenia. 26.Obstructive sleep apnea. 27.History of hiatal hernia. 28.History of methicillin-resistant Staphylococcus aeruginosa. 29.History of coronary artery disease, stent. 30.History of colonoscopy. 31.Obesity with body mass index of 44.6. 32.FULL CODE. RECOMMENDATIONS AND DISCUSSION: I recommend to continue current medications, continue with the monitoring, symptomatic treatment. Continue the current medications, including Lasix drip. I would also recommend a gastroenterology evaluation as well as possibly a repeat CT scan of the abdomen to evaluate for any further lesions. Prognosis guarded. Further recommendations to follow. MMODL / IJN: [id number] /
[2020-10-29] MEDS: IPRATROPIUM-ALBUTEROL 3 ML NEB INHALATION SCH ×4 (03:41→19:34)
[2020-10-29] MEDS: PANTOPRAZOLE 40 MG TABLET PO SCH ×2 (06:24→18:12)
[2020-10-29] MEDS: MIDODRINE 5 MG TAB PO SCH ×3 (06:24→18:12)
[2020-10-29 06:27] LABS: Glucose,Whole Blood 83 mg/dL (75-99)
[2020-10-29] MEDS: IOPAMIDOL CONTRAST (ORAL USE) VIAL PO PRN ×2 (06:51→08:20)
[2020-10-29 09:04] LABS: Calcium 9.4 mg/dL (8.4-10.2); Magnesium 1.8 mg/dL (1.6-2.3); Potassium 3.5 mmol/L (3.5-5.1)
[2020-10-29] MEDS: SPIRONOLACTONE 25 MG TAB PO SCH (09:22)
[2020-10-29] MEDS: SENNOSIDES 8.6 MG TAB PO SCH ×2 (09:22→20:15)
[2020-10-29] MEDS: FOLIC ACID 1 MG TAB PO SCH (09:22)
[2020-10-29] MEDS: ASPIRIN 81 MG PO SCH (09:22)
[2020-10-29] MEDS: MULTIVITAMINS, THERA 1 EACH TAB PO SCH (09:22)
[2020-10-29] MEDS: METOPROLOL TARTRATE 25 MG TAB PO SCH ×2 (09:22→20:15)
[2020-10-29] MEDS: traMADol 50 MG TAB PO PRN (09:23)
[2020-10-29] MEDS: buPROPion XL 150 MG TAB.ER.24H PO SCH (09:23)
[2020-10-29] MEDS: metOLazone 5 MG TAB PO SCH (09:23)
--- NOTE | 2020-10-29 11:12 | CT ---
EXAMINATION TYPE: CT abdomen pelvis wo con DATE OF EXAM: 10/29/2020 COMPARISON: 10/24/2020 HISTORY: pelvic pain CT DLP: 5077 mGycm Automated exposure control for dose reduction was used. TECHNIQUE: Helical acquisition of images was performed from the lung bases through the pelvis. FINDINGS: There is diffuse subcutaneous edema correlate for sarcoid. Bilateral lower lobe infiltrate and pleural effusion greater on the right noted. Cardiomegaly and coronary artery calcification. Aort a of normal caliber with atherosclerotic changes. Metallic densities along the left abdomen are seen which may be postsurgical or related to chronic foreign body correlate clinically. There is a moderate amount of ascites. Bowel gas pattern nonspecific with no obstruction. Hypertrophi c and degenerative changes spine. Cholelithiasis noted. There are multiple nonobstructing right-sided renal calculi. Spleen homogeneous. Pancreas homogeneous. Adrenal glands normal morphology. Suggestio n anterior abdominal wall hernia. Bladder is nondistended and contains air and probable Swain cathete r correlate clinically. IMPRESSION: 1. There is inflammatory change with wall thickening involving the left colon correlate for colitis or diverticulitis. Follow to resolution to exclude underlying neoplastic process 2. Moderate amount of ascites correlate for hepatocellular disease. Spleen measures 15 cm correlate f or splenomegaly. 2. Cholelithiasis. 3. Nonobstructing right renal calculi. 4. Anasarca. 5. Bilateral lower lobe infiltrate and small effusion. Cardiomegaly and coronary artery atherosclerot ic disease.
[2020-10-29 11:44] LABS: Glucose,Whole Blood 78 mg/dL (75-99)
[2020-10-29 12:08] LABS: Glucose,Whole Blood 86 mg/dL (75-99)
--- NOTE | 2020-10-29 14:55 | PN ---
PROGRESS NOTE Patient is seen for followup for acute kidney injury, mostly cardiorenal. The patient has underlying cardiomyopathy and chronic systolic congestive heart failure. He is currently being diuresed. He is maintained on a Lasix drip. PHYSICAL EXAMINATION: On examination today, blood pressure is 111/69, heart rate 86 per minute, patient is afebrile. Examination of the heart S1, S2. Examination of the lungs, bilateral breath sounds are heard. Abdomen is obese, soft, nontender. Examination of lower extremities shows chronic edema. [employer] exam grossly intact. LAB: Show sodium 137, potassium 3.5, chloride 84, CO2 is 45, BUN 56, creatinine 2.0. ASSESSMENT: 1. Acute kidney injury, mostly cardiorenal. Creatinine is stable with serum creatinine at 2.0-2.2 mg/dL. 2. Metabolic alkalosis secondary to diuresis. 3. Chronic diastolic congestive heart failure. 4. Volume overload. 5. Ascites, status post paracentesis. 6. Hypotension. 7. Hypokalemia from diuresis. PLAN: DC Lasix drip. I will add 1 dose of Diamox, switch to IV push Lasix starting in a.m. Repeat labs in a.m. MMODL / IJN: [id number] /
[2020-10-29 16:45] LABS: Glucose,Whole Blood 106 mg/dL (75-99)
--- NOTE | 2020-10-29 17:58 | PN ---
PROGRESS NOTE DATE OF SERVICE: 10/29/2020 REASON FOR FOLLOWUP: Abdominal wall wound and ascites and a question of infection. INTERVAL HISTORY: Patient is currently afebrile. Patient is breathing comfortably. The patient denies having any chest pain or shortness of breath or cough. No abdominal pain. No vomiting or diarrhea. PHYSICAL EXAMINATION: Blood pressure 111/69, pulse of 83, temperature 97.6, 97% on room air. General description: The patient is a middle-aged male lying in bed in no distress. Respiratory system: Unlabored breathing, clear to auscultation anteriorly. Heart S1, S2. Regular rate and rhythm. ABDOMEN: Soft, mildly tender. No guarding. No rigidity. LABS: BUN of 56, creatinine 2.0. Cultures remain to be negative. DIAGNOSTIC IMPRESSION AND PLAN: 1. Patient with abdominal wall wound with no evidence of any secondary cellulitis. Local care to continue with Aquacel Silver dressing. 2. Ascites. No evidence of any peritonitis. The patient being monitored closely off antibiotic therapy. Continue supportive care. MMODL / IJN: [id number] /
[2020-10-29] MEDS: acetaZOLAMIDE 250 MG TAB PO SCH (18:14)
[2020-10-29] MEDS: FUROSEMIDE 100 MG in SODIUM CHLORIDE 0.9% 90 ML IV SCH (18:19)
--- NOTE | 2020-10-29 19:53 | PN ---
PROGRESS NOTE DATE OF SERVICE: 10/29/2020 This 50-year-old gentleman admitted with abdominal pain, ascites, also being empirically treated for infection and repeat abdominal pelvis CAT scan was done which showed inflammatory changes with wall thickening involving the left colon, possibly colitis or diverticulitis and moderate amount of ascites was also noted. Hepatocellular disease is a consideration. Spleen measures 15 cm with splenomegaly, cholelithiasis also noted. Nonobstructing right renal calculi and anasarca were also noted. The patient also had bilateral lower lobe infiltrate. PAST MEDICAL HISTORY: Reviewed. REVIEW OF SYSTEMS: CARDIOVASCULAR: No angina. RESPIRATORY: As mentioned earlier. GI: As mentioned earlier. : No dysuria. Nervous system: No numbness or weakness. CURRENT MEDICATIONS: Reviewed and include: Tylenol, Diamox, DuoNeb, aspirin, Lipitor, Wellbutrin XL, folic acid, Lasix, gabapentin, Zaroxolyn, Lopressor. Doses are reviewed. PHYSICAL EXAMINATION: Alert and oriented times three. Pulse 80, blood pressure 116/70, respiration 28, temperature 97.2, pulse ox 97% on 4 L. HEENT: Conjunctivae normal. NECK: No JVD. CARDIOVASCULAR: S1, S2 muffled. RESPIRATORY: Breath sounds diminished in the bases. Scattered rhonchi. ABDOMEN: Soft, obese. Ascites present. LEGS: No edema. No swelling. NERVOUS SYSTEM: No focal deficits. LABS: Sodium 137, potassium 3.5, creatinine is 2. Other labs are noted. ASSESSMENT: 1. Change in mental status, possibly acute sepsis with possible acute bilateral pneumonia with aspiration with gram-negative sepsis. 2. Massive ascites, undetermined etiology, status post abdominal paracentesis. 3. Multiple nonhealing subcutaneous abdominal wall wounds. 4. Ascites possibly secondary to congestive heart failure. Rule out chronic liver disease. 5. Possible left colitis. 6. Cholelithiasis. 7. Status post abdominal paracentesis about 9.3 L straw-colored fluid. 8. Chronic kidney stage 3. 9. Elevated bilirubin. 10.Splenomegaly on the CT scan. 11.Hypokalemia. 12.History of atrial fibrillation, chronic. 13.History of asthma/chronic obstructive pulmonary disease. 14.History of congestive heart failure with acute on chronic diastolic dysfunction, ejection fraction 55-60 percent. 15.History of coronary artery disease. 16.History of chest pain/angina. 17.History of congestive heart failure. 18.Diabetes mellitus type 2. 19.History of deep vein thrombosis. 20.Hyperlipidemia. 21.Hypertension. 22.History of myocardial infarction. 23.History of sleep apnea. 24.History of chronic kidney disease. 25.Hypothyroidism. 26.History of tracheobronchitis. 27.History of deep vein thrombosis of the left leg in 2004. 28.Thrombocytopenia. 29.Obstructive sleep apnea. 30.History of hiatal hernia. 31.History of MRSA. 32.History of coronary artery disease/ stent. 33.History of colonoscopy. 34.Obesity with body mass index of 44.6. 35.FULL CODE. RECOMMENDATIONS AND DISCUSSION: Recommend to continue current medications, symptomatic treatment. Otherwise, multiple consultants are following the patient closely, including Infectious Disease and Nephrology. I would also recommend surgical evaluation because of the abnormal CT, Gastroenterology also been consulted to rule out the possible chronic liver disease. The patient has splenomegaly in the CT scan. Once again the prognosis is extremely guarded because of multiple complex medical issues. Further recommendations to follow. MMODL / IJN: [id number] /
[2020-10-29] MEDS ORDERED: Potassium Replacement Protocol 1 EACH MISC MISCELLANE PRN (20:00)
[2020-10-29] MEDS: FUROSEMIDE 10 MG/ML 4 ML VIAL IV SCH (20:14)
[2020-10-29] MEDS: ATORVASTATIN 40 MG TAB PO SCH (20:15)
[2020-10-29] MEDS: SERTRALINE 50 MG TAB PO SCH (20:15)
[2020-10-29] MEDS: GABAPENTIN 300 MG CAP PO SCH (20:15)
[2020-10-29] MEDS: POTASSIUM CHLORIDE 10 MEQ in WATER FOR INJECTION 1 100ML.BAG IVPB SCH ×3 (20:16→23:12)
[2020-10-29] MEDS: INSULIN DETEMIR (LEVEMIR) 100 UNIT/ML SYR SQ SCH (20:56)
[2020-10-29 20:57] LABS: Glucose,Whole Blood 106 mg/dL (75-99)
[2020-10-30] MEDS: POTASSIUM CHLORIDE 10 MEQ in WATER FOR INJECTION 1 100ML.BAG IVPB SCH (00:17)
[2020-10-30] MEDS: IPRATROPIUM-ALBUTEROL 3 ML NEB INHALATION SCH ×4 (03:31→20:07)
[2020-10-30] MEDS: PANTOPRAZOLE 40 MG TABLET PO SCH ×2 (06:15→18:12)
[2020-10-30] MEDS: MIDODRINE 5 MG TAB PO SCH ×3 (06:15→18:13)
[2020-10-30 06:38] LABS: Glucose,Whole Blood 90 mg/dL (75-99)
[2020-10-30 07:56] LABS: Anisocytosis Moderate; Hypochromasia Moderate; MCH 25.2 pg (25.0-35.0); MCHC 31.7 g/dL (31.0-37.0); MCV 79.6 fL (80.0-100.0); Mean Platelet Volume 8.7; Microcytosis Moderate; Platelet Count 122 k/uL (150-450); Poikilocytosis Slight; RBC 5.15 m/uL (4.30-5.90); RDW 22.6 % (11.5-15.5); WBC 6.7 k/uL (3.8-10.6)
[2020-10-30 08:07] LABS: Calcium 9.4 mg/dL (8.4-10.2); Magnesium 1.8 mg/dL (1.6-2.3); Potassium 3.3 mmol/L (3.5-5.1)
[2020-10-30] MEDS: buPROPion XL 150 MG TAB.ER.24H PO SCH (10:13)
[2020-10-30] MEDS: MULTIVITAMINS, THERA 1 EACH TAB PO SCH (10:13)
[2020-10-30] MEDS: FOLIC ACID 1 MG TAB PO SCH (10:13)
[2020-10-30] MEDS: acetaZOLAMIDE 250 MG TAB PO SCH (10:13)
[2020-10-30] MEDS: METOPROLOL TARTRATE 25 MG TAB PO SCH ×2 (10:13→20:13)
[2020-10-30] MEDS: ASPIRIN 81 MG PO SCH (10:14)
[2020-10-30] MEDS: POTASSIUM CHLORIDE ER 20 MEQ TAB.ER PO SCH ×2 (10:14→12:59)
[2020-10-30] MEDS: metOLazone 5 MG TAB PO SCH (10:14)
[2020-10-30] MEDS: FUROSEMIDE 10 MG/ML 4 ML VIAL IV SCH ×2 (10:14→20:13)
[2020-10-30] MEDS: SENNOSIDES 8.6 MG TAB PO SCH ×2 (10:14→20:12)
[2020-10-30] MEDS: SPIRONOLACTONE 25 MG TAB PO SCH (10:14)
[2020-10-30] MEDS: MAGNESIUM SULFATE-D5W PMX 1 GM in DEXTROSE/WATER 1 100ML.BAG IVPB SCH ×2 (10:15→12:56)
--- NOTE | 2020-10-30 10:25 | P.CONS ---
History of Present Illness - Reason for Consult Consult date: 10/29/20 Ascites Requesting physician: Joshua Rubi - Chief Complaint Abdominal pain and distention - History of Present Illness 50-year-old male with multiple medical comorbidities including atrial fibrillation, history of DVT, hypertension, was a, prior [place], morbid obesity, COPD and chronic kidney disease who presented to the hospital for abdominal discomfort. Computed tomography scan performed in evaluation showed no hydronephrosis however ascites and pleural effusion were noted. Currently the patient is being treated with diuretic therapy and being followed by the pulmon ology and nephrology services. The patient underwent paracentesis with 9 L of ascitic fluid drained. He does report requiring paracentesis in the past. On questioning he has no history of alcohol abuse, chronic liver disease, or family history of chronic liver disease. Laboratory evaluation significant for WBC 5.3, hemoglobin 13.1, platelet count 135,000, INR 1.4, total bilirubin 1.6, pleasant phosphatase 84, AST 25 and ALT 11. Serum ascitic albumin gradient found to be 0.8 with protein found to be 3.3 g. No acute complaints reported at this time. Review of Systems REVIEW OF SYSTEMS: CONSTITUTIONAL: Denies any fevers, chills, weight change but he does report fatigue. CARDIOVASCULAR: Denies any chest pain, palpitations high or low blood pressures RESPIRATORY: Denies any hemoptysis or cough, but he does report shortness of breath. GENITOURINARY: No dysuria or hematuria. MUSCULOSKELETAL: No weakness reported. SKIN: Denies any new rashes or lesions, jaundice or pallor. PSYCHIATRIC: Denies any depression or anxiety. NEUROLOGY: Denies headache, denies any new focal deficits. EARS/NOSE/THROAT: No recent hearing change, congestion, nasal discharge or sore throat. EYES: No pain in eyes, discharge or change in vision. GASTROINTESTINAL: As per HPI. Past Medical History Past Medical History: Atrial Fibrillation, Asthma, Coronary Artery Disease (CAD), Chest Pain / Angina, Heart Failure, COPD, Diabetes Mellitus, Deep Vein Thrombosis (DVT), Hyperlipidemia, Hypertension, Myocardial Infarction ([place]), Renal Disease, Sleep Apnea/CPAP/BIPAP, Thyroid Disorder, Vascular Disorder Additional Past Medical History / Comment(s): CHF, tracheobronchitis, CKD stage III, kidney stones, DVT L leg in 2004, KAMRYN without device use, colon abscess with bowel resection, multiple abdominal surgeries for a hiatal hernia that was complicated by prolonged hospitalization and prolonged ventilator dependent respiratory failure requiring a tracheostomy tube insertion, pvd-lower legs discolored/edematous, diverticular disease, chronic iron deficiency anemia, vertigo at times, Last Myocardial Infarction Date:: History of Any Multi-Drug Resistant Organisms: MRSA Year Discovered:: 02/01/15 MDRO Source:: Abdomen Past Surgical History: Bowel Resection, Heart Catheterization With Stent, Hernia Repair Additional Past Surgical History / Comment(s): Colonoscopies, heart stents x 4, bowel resection with colostomy and colostomy reversal (removed a foot of pts colon)-2003, hernia repair with skin grafts and 2 fistula repairs (hospitalized for 1 year @[facility] [place])-2010 MRSA 2014 in wounds. Past Anesthesia/Blood Transfusion Reactions: No Reported Reaction Additional Past Anesthesia/Blood Transfusion Reaction / Comm: Pt has received blood in past without reaction-2010 Date of Last Stent Placement:: 03/28/2015 Past Psychological History: Depression Smoking Status: Former smoker - Past Family History Mother Family Medical History: Osteoarthritis (OA), Pneumonia Additional Family Medical History / Comment(s): osteoporosis. arthroscopy surgery for knee Father Family Medical History: Liver Disease, Renal Disease Additional Family Medical History / Comment(s): triple heart bypass. liver transplant. aortic aneursym Medications and Allergies Home Medications Medication Instructions Recorded Confirmed Type Spironolactone [Aldactone] 25 mg PO DAILY 06/23/20 10/24/20 History Apixaban [Eliquis] 5 mg PO BID #60 tab 06/26/20 10/24/20 Rx buPROPion XL [Wellbutrin XL] 150 mg PO DAILY 07/26/20 10/24/20 History Furosemide [Lasix] 60 mg PO BID 08/07/20 10/24/20 History Gabapentin [Neurontin] 300 mg PO HS 08/07/20 10/24/20 History Isosorbide Mononitrate ER [Imdur] 30 mg PO DAILY #30 tab.er.24h 08/11/20 10/24/20 Rx Insulin Detemir [Levemir Flextouch] 5 units SQ HS 09/07/20 10/24/20 History Ipratropium-Albuterol Nebulize 3 ml INHALATION RT-Q6H 09/07/20 10/24/20 History [Duoneb 0.5 mg-3 mg/3 ml Soln] Atorvastatin [Lipitor] 40 mg PO HS #30 tablet 09/09/20 10/24/20 Rx Metoprolol Tartrate [Lopressor] 100 mg PO BID #60 tablet 09/09/20 10/24/20 Rx Acetaminophen [Tylenol] 650 mg PO Q6H PRN 10/24/20 10/24/20 History Aspirin EC [Ecotrin Low Dose] 81 mg PO DAILY 10/24/20 10/24/20 History Doxycycline Monohydrate [Monodox] 100 mg PO Q12H 10/24/20 10/24/20 History Folic Acid 0.4 mcg PO DAILY 10/24/20 10/24/20 History Multivitamins, Thera [Multivitamin 1 tab PO DAILY 10/24/20 10/24/20 History (formulary)] Omeprazole [PriLOSEC] 20 mg PO DAILY 10/24/20 10/24/20 History Sennosides/Docusate Sodium [Senna 1 tab PO BID 10/24/20 10/24/20 History Plus 8.6-50 mg Softgel] Sertraline [Zoloft] 50 mg PO HS 10/24/20 10/24/20 History metOLazone [Zaroxolyn] 2.5 mg PO DAILY 10/24/20 10/24/20 History traMADol HCL 50 mg PO Q12H PRN 10/24/20 10/24/20 History Allergies Allergy/AdvReac Type Severity Reaction Status Date / Time adhesive Allergy "PLASTIC Verified 10/24/20 19:20 TAPE PEELS SKIN,PAPER TAPE IS OK" linezolid Allergy Unknown Verified 10/24/20 19:20 penicillin G Allergy Rash/Hives Verified 10/24/20 19:20 Cephalosporins AdvReac FEVER Verified 10/24/20 19:20 Physical Exam Vitals: Vital Signs Temp Pulse Pulse Resp BP Pulse Ox 10/29/20 04:00 83 16 106/72 100 10/29/20 03:50 90 10/29/20 03:41 92 10/29/20 00:00 97.9 F 104 H 16 119/73 98 10/28/20 20:00 97.7 F 94 16 120/68 96 10/28/20 19:40 76 10/28/20 19:31 75 10/28/20 15:43 97.9 F 77 18 154/65 96 10/28/20 14:00 95 16 10/28/20 12:27 80 10/28/20 12:20 76 Intake and Output 10/28/20 10/29/20 10/29/20 22:59 06:59 14:59 Intake Total 222 224 0 Output Total 4200 3550 Balance -3978 -3326 0 Intake: Oral 222 224 0 Output: Urine 4200 3550 Other: Voiding Method Indwelling Catheter Indwelling Catheter Weight 153.5 kg On physical examination, patient appears comfortable in no apparent distress. HEAD: Normocephalic, atraumatic. EYES: No scleral icterus. No conjunctival injection. MOUTH: No lesions, tongue midline. NECK: Trachea midline, no gross abnormalities. CHEST: Decreased air entry in all [place]. HEART: S1-S2 appreciated. ABDOMEN: Soft, morbidly obese. Bowel sounds are positive. No organomegaly. No guarding or rigidity. EXTREMITIES: Bilateral pedal edema. SKIN: No rashes, no jaundice. NEUROLOGIC: Alert and oriented x3. No focal deficits. Results CBC & Chem 7: 10/30/20 07:08 10/30/20 07:08 Labs: Abnormal Lab Results - Last 24 Hours (Table) 10/28/20 10/28/20 10/28/20 Range/Units 12:08 17:23 20:02 Chloride (98-107) mmol/L Carbon Dioxide (22-30) mmol/L BUN (9-20) mg/dL Creatinine (0.66-1.25) mg/dL POC Glucose (mg/dL) 189 H 128 H 116 H (75-99) mg/dL 10/29/20 Range/Units 08:07 Chloride 84 L (98-107) mmol/L Carbon Dioxide 45 H* (22-30) mmol/L BUN 56 H (9-20) mg/dL Creatinine 2.00 H (0.66-1.25) mg/dL POC Glucose (mg/dL) (75-99) mg/dL Microbiology - Last 24 Hours (Table) 10/24/20 19:27 Blood Culture - Preliminary Blood No Growth after 96 hours 10/26/20 14:42 Gram Stain - Preliminary Paracentesis Fluid Body Fluid Culture - Preliminary CT scan - abdomen: report reviewed (Computed tomography scan of the abdomen with findings of ascites, cholelithiasis, inflammatory changes of the left colon likely related to fluid overload and anasarca.) Assessment and Plan (1) Ascites Narrative/Plan: 49-year-old male with multiple medical comorbidities including underlying chronic kidney disease and congestive heart failure who presented to the hospital for evaluation of abdominal pain and bloating. Found to have significant ascites with 9 L of ascitic fluid removed. The patient's serum ascites albumin gradient found to be 0.8 with a total protein of 3.3 suggestive of a cardiac source of ascites. He denies any history of underlying liver disease although there is likely a degree of fibrosis given the metabolic syndro me. Currently being managed with diuretic therapy as per nephrology recommendations. Current Visit: Yes Status: Acute Code(s): R18.8 - OTHER ASCITES SNOMED Code(s): 455674466 (2) Abnormal CT of the abdomen Narrative/Plan: Computed tomography scan of the abdomen with findings of some thickening of the left colon likely related to underlying ascites, recommendation is for repeat CT to check for resolution in 3 months. Current Visit: Yes Status: Acute Code(s): R93.5 - ABN FINDINGS ON DX IMAGING OF ABD REGIONS, INC RETROPERITON SNOMED Code(s): 68652097172251519 (3) Abdominal pain Current Visit: Yes Status: Acute Code(s): R10.9 - UNSPECIFIED ABDOMINAL PAIN SNOMED Code(s): 31780419 Plan: Supportive care Okay for diet as tolerated Continue monitor CBC, BMP, LFTs Continue diuretic therapy as per recommendations by nephrology service Appreciate recommendations from nephrology, pulmonology and other consulting services No plans for endoscopic evaluation at this time Recommend repeat computed tomography scan in 3 months to check for resolution of inflammation seen on computed tomography scan of the abdomen the Thank you for allowing us to participate in the care of the patient
--- NOTE | 2020-10-30 10:39 | P.GSCN ---
History of Present Illness Consult date: 10/30/20 Reason for Consult: Colitis History of present illness: 50-year-old male with multiple medical problems. Patient was having abdominal swelling. Was found to have significant ascites. Fluid was removed per radiology. A total of 9 L of straw-colored fluid came out. There were no inflammatory cells and cultures are negative. Second CAT scan performed yesterday shows some mild thickening of the left colon. Patient describes some chronic constipation. On CAT scan there is mild stool burden. From the splenic flexure down to the previous colocolonic anastomosis there is mild wall thickening consistent with mild colitis. Denies rectal bleeding or melena. No fevers. White blood cell count is normal. He is afebrile. Etiology for ascites is thought to be cardiac related. Patient has had multiple abdominal surgeries. He has had multiple hernias. Patient has significant wounds of his abdominal wall related to his multiple previous surgeries. These are nonhealing and chronic in nature. Previous resection with colostomy for diverticulitis and subsequent reversal. Review of Systems The patient denies any acute changes in vision or hearing, no dysphagia or odynophagia, no chest pain, no dysuria or hematuria, no headache, no runny nose, no rectal bleeding or melena, no unexplained weight loss Past Medical History Past Medical History: Atrial Fibrillation, Asthma, Coronary Artery Disease (CAD), Chest Pain / Angina, Heart Failure, COPD, Diabetes Mellitus, Deep Vein Thrombosis (DVT), Hyperlipidemia, Hypertension, Myocardial Infarction ([place]), Renal Disease, Sleep Apnea/CPAP/BIPAP, Thyroid Disorder, Vascular Disorder Additional Past Medical History / Comment(s): CHF, tracheobronchitis, CKD stage III, kidney stones, DVT L leg in 2004, KAMRYN without device use, colon abscess with bowel resection, multiple abdominal surgeries for a hiatal hernia that was complicated by prolonged hospitalization and prolonged ventilator dependent respiratory failure requiring a tracheostomy tube insertion, pvd-lower legs discolored/edematous, diverticular disease, chronic iron deficiency anemia, vertigo at times, Last Myocardial Infarction Date:: History of Any Multi-Drug Resistant Organisms: MRSA Year Discovered:: 02/01/15 MDRO Source:: Abdomen Past Surgical History: Bowel Resection, Heart Catheterization With Stent, Hernia Repair Additional Past Surgical History / Comment(s): Colonoscopies, heart stents x 4, bowel resection with colostomy and colostomy reversal (removed a foot of pts colon)-2003, hernia repair with skin grafts and 2 fistula repairs (hospitalized for 1 year @[facility])-2010 MRSA 2014 in wounds. Past Anesthesia/Blood Transfusion Reactions: No Reported Reaction Additional Past Anesthesia/Blood Transfusion Reaction / Comm: Pt has received blood in past without reaction-2010 Date of Last Stent Placement:: 03/28/2015 Past Psychological History: Depression Smoking Status: Former smoker - Past Family History Mother Family Medical History: Osteoarthritis (OA), Pneumonia Additional Family Medical History / Comment(s): osteoporosis. arthroscopy surg george for knee Father Family Medical History: Liver Disease, Renal Disease Additional Family Medical History / Comment(s): triple heart bypass. liver transplant. aortic aneursym Medications and Allergies Home Medications Medication Instructions Recorded Confirmed Type Spironolactone [Aldactone] 25 mg PO DAILY 06/23/20 10/24/20 History Apixaban [Eliquis] 5 mg PO BID #60 tab 06/26/20 10/24/20 Rx buPROPion XL [Wellbutrin XL] 150 mg PO DAILY 07/26/20 10/24/20 History Furosemide [Lasix] 60 mg PO BID 08/07/20 10/24/20 History Gabapentin [Neurontin] 300 mg PO HS 08/07/20 10/24/20 History Isosorbide Mononitrate ER [Imdur] 30 mg PO DAILY #30 tab.er.24h 08/11/20 10/24/20 Rx Insulin Detemir [Levemir Flextouch] 5 units SQ HS 09/07/20 10/24/20 History Ipratropium-Albuterol Nebulize 3 ml INHALATION RT-Q6H 09/07/20 10/24/20 History [Duoneb 0.5 mg-3 mg/3 ml Soln] Atorvastatin [Lipitor] 40 mg PO HS #30 tablet 09/09/20 10/24/20 Rx Metoprolol Tartrate [Lopressor] 100 mg PO BID #60 tablet 09/09/20 10/24/20 Rx Acetaminophen [Tylenol] 650 mg PO Q6H PRN 10/24/20 10/24/20 History Aspirin EC [Ecotrin Low Dose] 81 mg PO DAILY 10/24/20 10/24/20 History Doxycycline Monohydrate [Monodox] 100 mg PO Q12H 10/24/20 10/24/20 History Folic Acid 0.4 mcg PO DAILY 10/24/20 10/24/20 History Multivitamins, Thera [Multivitamin 1 tab PO DAILY 10/24/20 10/24/20 History (formulary)] Omeprazole [PriLOSEC] 20 mg PO DAILY 10/24/20 10/24/20 History Sennosides/Docusate Sodium [Senna 1 tab PO BID 10/24/20 10/24/20 History Plus 8.6-50 mg Softgel] Sertraline [Zoloft] 50 mg PO HS 10/24/20 10/24/20 History metOLazone [Zaroxolyn] 2.5 mg PO DAILY 10/24/20 10/24/20 History traMADol HCL 50 mg PO Q12H PRN 10/24/20 10/24/20 History Allergies Allergy/AdvReac Type Severity Reaction Status Date / Time adhesive Allergy "PLASTIC Verified 10/24/20 19:20 TAPE PEELS SKIN,PAPER TAPE IS OK" linezolid Allergy Unknown Verified 10/24/20 19:20 penicillin G Allergy Rash/Hives Verified 10/24/20 19:20 Cephalosporins AdvReac FEVER Verified 10/24/20 19:20 Surgical - Exam Vital Signs Temp Pulse Resp BP Pulse Ox 98.9 F 69 18 100/78 100 10/24/20 15:22 10/24/20 15:22 10/24/20 15:22 10/24/20 15:22 10/24/20 15:22 Physical exam: General: Well-developed, well-nourished male in no distress HEENT: Normocephalic, sclerae nonicteric Abdomen: Obese, very thin abdominal wall, multiple superficial wounds including a large midline wound that is granulated, minimal lower abdominal tenderness, mild lower abdominal wall edema Extremities: Bilateral lower extremity edema Neuro: Alert and oriented Results - Labs 10/30/20 07:08 10/30/20 07:08 Abnormal Lab Results - Last 24 Hours (Table) 10/29/20 10/29/20 10/29/20 Range/Units 16:44 20:55 22:07 MCV (80.0-100.0) fL RDW (11.5-15.5) % Plt Count (150-450) k/uL D-Dimer 1.54 H (<0.60) mg/L FEU Sodium (137-145) mmol/L Potassium (3.5-5.1) mmol/L Chloride (98-107) mmol/L Carbon Dioxide (22-30) mmol/L BUN (9-20) mg/dL Creatinine (0.66-1.25) mg/dL POC Glucose (mg/dL) 106 H 106 H (75-99) mg/dL 10/30/20 10/30/20 Range/Units 07:08 07:08 MCV 79.6 L (80.0-100.0) fL RDW 22.6 H (11.5-15.5) % Plt Count 122 L (150-450) k/uL D-Dimer (<0.60) mg/L FEU Sodium 135 L (137-145) mmol/L Potassium 3.3 L (3.5-5.1) mmol/L Chloride 83 L (98-107) mmol/L Carbon Dioxide 42 H* (22-30) mmol/L BUN 52 H (9-20) mg/dL Creatinine 2.32 H (0.66-1.25) mg/dL POC Glucose (mg/dL) (75-99) mg/dL Microbiology - Last 24 Hours (Table) 10/24/20 19:27 Blood Culture - Preliminary Blood No Growth after 120 hours 10/26/20 14:42 Gram Stain - Preliminary Paracentesis Fluid Body Fluid Culture - Preliminary Diabetes panel 10/30/20 Range/Units 07:08 Sodium 135 L (137-145) mmol/L Potassium 3.3 L (3.5-5.1) mmol/L Chloride 83 L (98-107) mmol/L Carbon Dioxide 42 H* (22-30) mmol/L BUN 52 H (9-20) mg/dL Creatinine 2.32 H (0.66-1.25) mg/dL Glucose 84 (74-99) mg/dL Calcium 9.4 (8.4-10.2) mg/dL Calcium panel 10/30/20 Range/Units 07:08 Calcium 9.4 (8.4-10.2) mg/dL Pituitary panel 10/30/20 Range/Units 07:08 Sodium 135 L (137-145) mmol/L Potassium 3.3 L (3.5-5.1) mmol/L Chloride 83 L (98-107) mmol/L Carbon Dioxide 42 H* (22-30) mmol/L BUN 52 H (9-20) mg/dL Creatinine 2.32 H (0.66-1.25) mg/dL Glucose 84 (74-99) mg/dL Calcium 9.4 (8.4-10.2) mg/dL Adrenal panel 10/30/20 Range/Units 07:08 Sodium 135 L (137-145) mmol/L Potassium 3.3 L (3.5-5.1) mmol/L Chloride 83 L (98-107) mmol/L Carbon Dioxide 42 H* (22-30) mmol/L BUN 52 H (9-20) mg/dL Creatinine 2.32 H (0.66-1.25) mg/dL Glucose 84 (74-99) mg/dL Calcium 9.4 (8.4-10.2) mg/dL Assessment and Plan (1) Colitis Narrative/Plan: 50-year-old male with numerous medical issues. Patient with CAT scan showing mild thickening of the left colon wall that may be related to the ascites. Patient also with complaints of exacerbation of underlying constipation. Continue stool softeners. Empiric antibiotics for possible colitis. Will follow. Continue diet as tolerated. Current Visit: Yes Status: Acute Code(s): K52.9 - NONINFECTIVE GASTROENTERITIS AND COLITIS, UNSPECIFIED SNOMED Code(s): 06756358
[2020-10-30] MEDS ORDERED: LEVOFLOXACIN 500MG-D5W PMX 500 MG in DEXTROSE/WATER 1 100ML.BAG IVPB SCH (11:00)
[2020-10-30 11:41] LABS: Glucose,Whole Blood 113 mg/dL (75-99)
--- NOTE | 2020-10-30 12:12 | PN ---
PROGRESS NOTE Patient is seen for followup for acute kidney injury, mostly cardiorenal. Patient is currently being diuresed. He was maintained on Lasix drip which was switched to IV push Lasix. PHYSICAL EXAMINATION: On examination today, he is comfortable. Blood pressure 120/66, heart rate 72 per minute, he is afebrile. Examination of the heart S1, S2. Examination of the lungs, decreased breath sounds at bases. Abdomen is soft, obese, nontender. Examination lower extremities shows chronic skin changes, chronic edema. PIANO REFINISHER exam grossly intact. LAB: Show sodium 135, potassium 3.3, chloride 83, CO2 42, BUN 52, creatinine 2.32. ASSESSMENT: 1. Acute kidney injury, cardiorenal and associated with recent diuresis with increasing creatinine, switched over from Lasix drip to IV push Lasix yesterday. 2. Metabolic alkalosis secondary to diuresis. 3. Chronic diastolic congestive heart failure. 4. Ascites, status post paracentesis. 5. Hypokalemia from diuresis status post replacement. PLAN: Replace potassium. Continue with the decreased dose of Lasix. Repeat labs in a.m. Continue with midodrine. Consider decreasing Zaroxolyn tomorrow if renal function is worse. MMODL / IJN: [id number] /
--- NOTE | 2020-10-30 12:24 | P.PN ---
Subjective Progress Note Date: 10/30/20 Principal diagnosis: Ascites Patient is seen lying in bed with no acute complaints. Tolerating diet. Objective - Vital Signs Vital signs: Vital Signs Temp 97.8 F 10/30/20 03:39 Pulse 76 10/30/20 08:26 Resp 20 10/30/20 03:39 BP 120/66 10/30/20 03:39 Pulse Ox 97 10/30/20 03:39 Intake & Output 10/29/20 10/30/20 10/30/20 18:59 06:59 18:59 Intake Total 230 230 Output Total 3600 2450 Balance -3370 -2450 230 Weight 153 kg Intake: Oral 230 230 Output: Urine 3600 2450 Other: Voiding Method Indwelling Catheter Indwelling Catheter - Exam On physical examination, patient appears comfortable in no apparent distress. HEAD: Normocephalic, atraumatic. EYES: No scleral icterus. No conjunctival injection. MOUTH: No lesions, tongue midline. NECK: Trachea midline, no gross abnormalities. ABDOMEN: Soft, morbidly obese. Bowel sounds are positive. No organomegaly. No guarding or rigidity. EXTREMITIES: No pedal edema. SKIN: No rashes, no jaundice. NEUROLOGIC: Alert and oriented x3. No focal deficits. - Labs CBC & Chem 7: 10/30/20 07:08 10/30/20 07:08 Labs: Abnormal Lab Results - Last 24 Hours (Table) 10/29/20 10/29/20 10/29/20 Range/Units 16:44 20:55 22:07 MCV (80.0-100.0) fL RDW (11.5-15.5) % Plt Count (150-450) k/uL D-Dimer 1.54 H (<0.60) mg/L FEU Sodium (137-145) mmol/L Potassium (3.5-5.1) mmol/L Chloride (98-107) mmol/L Carbon Dioxide (22-30) mmol/L BUN (9-20) mg/dL Creatinine (0.66-1.25) mg/dL POC Glucose (mg/dL) 106 H 106 H (75-99) mg/dL 10/30/20 10/30/20 Range/Units 07:08 07:08 MCV 79.6 L (80.0-100.0) fL RDW 22.6 H (11.5-15.5) % Plt Count 122 L (150-450) k/uL D-Dimer (<0.60) mg/L FEU Sodium 135 L (137-145) mmol/L Potassium 3.3 L (3.5-5.1) mmol/L Chloride 83 L (98-107) mmol/L Carbon Dioxide 42 H* (22-30) mmol/L BUN 52 H (9-20) mg/dL Creatinine 2.32 H (0.66-1.25) mg/dL POC Glucose (mg/dL) (75-99) mg/dL Microbiology - Last 24 Hours (Table) 10/24/20 19:27 Blood Culture - Preliminary Blood No Growth after 120 hours 10/26/20 14:42 Gram Stain - Preliminary Paracentesis Fluid Body Fluid Culture - Preliminary Assessment and Plan (1) Ascites Narrative/Plan: 49-year-old male with multiple medical comorbidities including underlying chronic kidney disease and congestive heart failure who presented to the hospital for evaluation of abdominal pain and bloating. Found to have significant ascites with 9 L of ascitic fluid removed. The patient's serum a scites albumin gradient found to be 0.8 with a total protein of 3.3 suggestive of a cardiac source of ascites. He denies any history of underlying liver disease although there is likely a degree of fibrosis given the metabolic syndrome. Currently being managed with diuretic therapy as per nephrology recommendations. Current Visit: Yes Status: Acute Code(s): R18.8 - OTHER ASCITES SNOMED Code(s): 779248293 (2) Abnormal CT of the abdomen Narrative/Plan: Computed tomography scan of the abdomen with findings of some thickening of the left colon likely related to underlying ascites, recommendation is for repeat CT to check for resolution in 3 months. Current Visit: Yes Status: Acute Code(s): R93.5 - ABN FINDINGS ON DX IMAGING OF ABD REGIONS, INC RETROPERITON SNOMED Code(s): 79170282235038137 (3) Abdominal pain Current Visit: Yes Status: Acute Code(s): R10.9 - UNSPECIFIED ABDOMINAL PAIN SNOMED Code(s): 26803764 Plan: Supportive care Okay for diet as tolerated Continue monitor CBC, BMP, LFTs Continue diuretic therapy as per recommendations by nephrology service Appreciate recommendations from nephrology, pulmonology and other consulting services No plans for endoscopic evaluation at this time Recommend repeat computed tomography scan in 3 months to check for resolution of inflammation seen on computed tomography scan of the abdomen Thank you for allowing us to participate in the care of the patient, the GI service will stand by, please call us back with any questions or concerns
[2020-10-30] MEDS: MAGNESIUM HYDROXIDE 2,400 MG/10 ML CUP PO SCH (12:59)
[2020-10-30 16:44] LABS: Glucose,Whole Blood 114 mg/dL (75-99)
--- NOTE | 2020-10-30 19:16 | PN ---
PROGRESS NOTE DATE OF SERVICE: 10/30/2020 This 50-year-old gentleman with possible sepsis also significant ascites. The patient had multiple abnormalities on the CT scan. Surgical consultation by Dr. Florence recommended empiric antibiotics for possible colitis and continued followup. Otherwise, the patient was also seen by Gastroenterology and recommended possibly cardiac source of chronic liver dysfunction. No chest pain. No palpitations. No fever. PHYSICAL EXAMINATION: Alert and oriented times three. Pulse 74, blood pressure 97/62, respiration 20, temperature normal. Pulse ox 98% on 4 L. HEENT: Conjunctivae normal. NECK: No JVD. CARDIOVASCULAR: S1, S2 muffled. RESPIRATORY: Breath sounds diminished in the bases. ABDOMEN: Soft, obese. NERVOUS SYSTEM: No focal deficits. LABS: CBC within normal limits. Sodium 130. Potassium 3.3, CO2 is 42. ASSESSMENT: 1. Change in mental status, possibly acute sepsis with possible acute bilateral pneumonia with aspiration, gram-negative sepsis. 2. Massive ascites, undetermined etiology, status post abdominal paracentesis. 3. Multiple nonhealing subcutaneous superficial abdominal wounds. 4. Ascites, possibly secondary to congestive heart failure or chronic liver disease and cardiac cirrhosis. 5. Possible left colitis. 6. Cholelithiasis. 7. Status post abdominal paracentesis with 9.3 L straw colored fluid. 8. Chronic kidney disease stage 3. 9. Elevated bilirubin. 10.Splenomegaly on the CT scan. 11.Hypokalemia. 12.History of atrial fibrillation, chronic. 13.History of asthma/chronic obstructive pulmonary disease. 14.History of congestive heart failure with acute on chronic diastolic dysfunction, ejection fraction 55 to 60%. 15.History of coronary artery disease. 16.History of chest pain/angina. 17.History of congestive heart failure. 18.Diabetes mellitus type 2. 19.History of deep vein thrombosis. 20.Hyperlipidemia. 21.Hypertension. 22.History of myocardial infarction. 23.Obstructive sleep apnea. 24.History of chronic kidney disease. 25.Hypothyroidism. 26.History of tracheobronchitis. 27.History of deep vein thrombosis of the left leg in 2004. 28.Thrombocytopenia. 29.Obstructive sleep apnea. 30.History of hiatal hernia. 31.History of MRSA. 32.History of coronary artery disease/ stent. 33.History of colonoscopy. 34.Obesity with body mass index of 44.6. 35.FULL CODE. RECOMMENDATIONS AND DISCUSSION: Recommend to continue current medications, continue with monitoring, symptomatic treatment. Otherwise, at this time, I would supplement potassium. Repeat labs. Closely monitor. Check magnesium. Guarded prognosis because of multiple complex medical issues. Further recommendations to follow. MMODL / IJN: [id number] /
--- NOTE | 2020-10-30 19:41 | PN ---
PROGRESS NOTE DATE OF SERVICE: 10/30/2020 REASON FOR FOLLOWUP: 1. Abdominal wall wound. 2. Ascites and question of infection. INTERVAL HISTORY: The patient is currently afebrile. The patient is breathing comfortably. Complaining of some lower abdominal pain, no worsening though. No nausea, no vomiting. No diarrhea or constipation. PHYSICAL EXAMINATION: VITAL SIGNS: Bp 116/80, pulse 108, temperature 98.6, he is 98% on 4 liters nasal cannula. GENERAL DESCRIPTION: A middle-aged male lying in bed in no distress. RESPIRATORY SYSTEM: Unlabored breathing, clear to auscultation anteriorly. HEART: S1, S2. Regular rate and rhythm. ABDOMEN: Soft, no tenderness. No guarding or rigidity. LABS: Hemoglobin is 13.5, white count 6.9, BUN of 52, creatinine 2.32. IMPRESSION/PLAN: 1. Patient with abdominal wound. No evidence of cellulitis. Local care to continue with dry Aquacel Silver dressing. 2. Patient with ascites, status post paracentesis. Fluid culture negative. 3. Repeat CT with concern for possible colitis. He was started on Levaquin. We will add Flagyl. Continue supportive care. MMODL / IJN: [id number] /
[2020-10-30] MEDS: traMADol 50 MG TAB PO PRN (20:12)
[2020-10-30] MEDS: ATORVASTATIN 40 MG TAB PO SCH (20:12)
[2020-10-30] MEDS: SERTRALINE 50 MG TAB PO SCH (20:12)
[2020-10-30] MEDS: GABAPENTIN 300 MG CAP PO SCH (20:13)
[2020-10-30] MEDS: metroNIDAZOLE 500 MG TAB PO SCH (20:13)
[2020-10-30] MEDS: INSULIN DETEMIR (LEVEMIR) 100 UNIT/ML SYR SQ SCH (21:11)
[2020-10-30 21:16] LABS: Glucose,Whole Blood 112 mg/dL (75-99)
[2020-10-31] MEDS: IPRATROPIUM-ALBUTEROL 3 ML NEB INHALATION SCH ×4 (03:08→20:47)
[2020-10-31] MEDS: MIDODRINE 5 MG TAB PO SCH ×3 (06:17→18:21)
[2020-10-31] MEDS: PANTOPRAZOLE 40 MG TABLET PO SCH ×2 (06:17→18:23)
[2020-10-31 06:27] LABS: Glucose,Whole Blood 96 mg/dL (75-99)
[2020-10-31 08:10] LABS: Calcium 9.3 mg/dL (8.4-10.2); Magnesium 2.2 mg/dL (1.6-2.3); Potassium 3.2 mmol/L (3.5-5.1)
[2020-10-31 08:33] LABS: Anisocytosis Moderate; Basophils # (A) 0.1 k/uL (0-0.2); Basophils % (A) 1 %; Eosinophils # (A) 0.2 k/uL (0-0.7); Eosinophils % (A) 3 %; HCT 42.3 % (39.0-53.0); HGB 12.9 gm/dL (13.0-17.5); Hypochromasia Marked; Lymphocytes # (A) 1.1 k/uL (1.0-4.8); Lymphocytes % (A) 15 %; MCH 24.5 pg (25.0-35.0); MCHC 30.5 g/dL (31.0-37.0); MCV 80.4 fL (80.0-100.0); Mean Platelet Volume 9.8; Microcytosis Slight; Monocytes # (A) 0.6 k/uL (0-1.0); Monocytes % (A) 8 %; Neutrophils # (A) 5.3 k/uL (1.3-7.7); Neutrophils % (A) 72 %; Platelet Count 123 k/uL (150-450); Poikilocytosis Slight; RBC 5.27 m/uL (4.30-5.90); RDW 22.3 % (11.5-15.5); WBC 7.3 k/uL (3.8-10.6)
[2020-10-31] MEDS: buPROPion XL 150 MG TAB.ER.24H PO SCH (09:39)
[2020-10-31] MEDS: ASPIRIN 81 MG PO SCH (09:39)
[2020-10-31] MEDS: SENNOSIDES 8.6 MG TAB PO SCH ×2 (09:39→21:00)
[2020-10-31] MEDS: metOLazone 5 MG TAB PO SCH (09:39)
[2020-10-31] MEDS: FOLIC ACID 1 MG TAB PO SCH (09:39)
[2020-10-31] MEDS: MULTIVITAMINS, THERA 1 EACH TAB PO SCH (09:39)
[2020-10-31] MEDS: acetaZOLAMIDE 250 MG TAB PO SCH (09:39)
[2020-10-31] MEDS: SPIRONOLACTONE 25 MG TAB PO SCH (09:39)
[2020-10-31] MEDS: MAGNESIUM HYDROXIDE 2,400 MG/10 ML CUP PO SCH (09:39)
[2020-10-31] MEDS: METOPROLOL TARTRATE 25 MG TAB PO SCH ×2 (09:39→21:00)
[2020-10-31] MEDS: metroNIDAZOLE 500 MG TAB PO SCH ×3 (09:46→21:00)
[2020-10-31] MEDS ORDERED: POTASSIUM CHLORIDE ER 20 MEQ TAB.ER PO STA (10:15)
[2020-10-31] MEDS ORDERED: LEVOFLOXACIN 250MG-D5W PMX 500 MG in DEXTROSE/WATER 1 50ML.BAG IVPB SCH (11:00)
--- NOTE | 2020-10-31 11:10 | PN ---
PROGRESS NOTE Patient is seen for followup for acute kidney injury, mostly cardiorenal. The patient has been diuresed aggressively. He had been on Lasix drip which was then decreased to IV push Lasix. Serum creatinine has been slowly increasing. It is up to 2.6 today. The patient has also developed metabolic alkalosis, which is actually slightly better. He has had good urine output. His overall volume status has improved. A 24-hour output was about 6 L. PHYSICAL EXAMINATION: On examination today, patient is lying in bed. He is comfortable. He is arousable, but sleepy. Blood pressure is 108/64, heart rate 79 per minute. He is afebrile. EXAMINATION OF THE HEART: S1, S2. EXAMINATION OF THE LUNGS: Decreased breath sounds at bases. Abdomen is soft, nontender, obese. Examination of the lower extremities chronic skin changes, much improvement in edema. QA TESTER exam grossly intact. LABS: Labs show sodium 135, potassium 3.2, chloride 82, CO2 is 43, BUN 53, creatinine 2.62. ASSESSMENT: 1. Acute kidney injury, cardiorenal and worsened with recent diuresis. I will hold off on Lasix for now. The patient remains on Zaroxolyn. 2. Metabolic alkalosis, maintained on Diamox, currently improving. 3. Congestive heart failure, acute on top of chronic, mostly diastolic. 4. Ascites, status post paracentesis. 5. Hypokalemia, status post replacement. We will replace again. PLAN: Replace potassium. Hold off on Lasix. Repeat labs in a.m. MMODL / IJN: [id number] /
[2020-10-31 12:04] LABS: Glucose,Whole Blood 81 mg/dL (75-99)
--- NOTE | 2020-10-31 12:52 | PN ---
PROGRESS NOTE DATE OF SERVICE: 10/31/2020. REASON FOR FOLLOWUP: 1. Abdominal wall wound. 2. Colitis. INTERVAL HISTORY: The patient is currently afebrile. Patient is slightly sleepy today and did not provide any history. No vomiting, diarrhea, or any other change reported by nursing staff. PHYSICAL EXAMINATION: Blood pressure 105/69 with pulse 100, temperature 98.1. He is 97% on 4 L nasal cannula. General description is a middle-aged male lying in bed in no distress. RESPIRATORY SYSTEM: Unlabored breathing and is clear to auscultation anteriorly. HEART: S1, S2. Regular rate and rhythm. ABDOMEN: Soft. Abdominal wound is currently dressed up. LABS: Hemoglobin is 12.9, white count 7.3, BUN of 53, creatinine 2.62. DIAGNOSTIC IMPRESSION AND PLAN: 1. Patient with abdominal wall wound with cellulitis. Local care to continue with Aquacel Silver dressing. 2. Patient with ascites, status post paracentesis. Culture has been negative. No need for systemic antibiotic. 3. Patient with evidence of colitis seen on the CT, covered with Levaquin and Flagyl to continue and monitor clinical course closely. Continue supportive care. MMODL / IJN: [id number] /
[2020-10-31 13:29] VITALS: BMI 43.4
--- NOTE | 2020-10-31 14:27 | P.PN ---
Subjective Progress Note Date: 10/31/20 Principal diagnosis: Abdominal pain Patient feeling tired today. Denies abdominal pain at this time. Tolerating diet. Passing flatus. Patient is afebrile. White blood cell count normal. Objective - Vital Signs Vital signs: Vital Signs Temp 98.1 F 10/31/20 08:00 Pulse 92 10/31/20 14:00 Resp 18 10/31/20 14:00 BP 104/65 10/31/20 12:00 Pulse Ox 97 10/31/20 12:00 Intake & Output 10/30/20 10/31/20 10/31/20 18:59 06:59 18:59 Intake Total 700 240 0 Output Total 2550 1600 1175 Balance -1850 -1360 -1175 Weight 137.5 kg 137.5 kg Intake: Oral 700 240 0 Output: Urine 2550 1600 1175 Other: Voiding Method Indwelling Catheter Indwelling Catheter Indwelling Catheter - Exam Abdomen: Soft, nondistended, mild lower abdominal tenderness, no rebound or guarding - Labs CBC & Chem 7: 10/31/20 07:29 10/31/20 07:29 Labs: Abnormal Lab Results - Last 24 Hours (Table) 10/30/20 10/30/20 10/31/20 Range/Units 16:43 21:03 07:29 Hgb (13.0-17.5) gm/dL MCH (25.0-35.0) pg MCHC (31.0-37.0) g/dL RDW (11.5-15.5) % Plt Count (150-450) k/uL Sodium 135 L (137-145) mmol/L Potassium 3.2 L (3.5-5.1) mmol/L Chloride 82 L (98-107) mmol/L Carbon Dioxide 43 H* (22-30) mmol/L BUN 53 H (9-20) mg/dL Creatinine 2.62 H (0.66-1.25) mg/dL POC Glucose (mg/dL) 114 H 112 H (75-99) mg/dL 10/31/20 Range/Units 07:29 Hgb 12.9 L (13.0-17.5) gm/dL MCH 24.5 L (25.0-35.0) pg MCHC 30.5 L (31.0-37.0) g/dL RDW 22.3 H (11.5-15.5) % Plt Count 123 L (150-450) k/uL Sodium (137-145) mmol/L Potassium (3.5-5.1) mmol/L Chloride (98-107) mmol/L Carbon Dioxide (22-30) mmol/L BUN (9-20) mg/dL Creatinine (0.66-1.25) mg/dL POC Glucose (mg/dL) (75-99) mg/dL Microbiology - Last 24 Hours (Table) 10/29/20 22:07 Blood Culture - Preliminary Blood No Growth after 24 hours 10/24/20 19:27 Blood Culture - Final Blood No Growth after 144 hours 10/26/20 14:42 Gram Stain - Final Paracentesis Fluid Body Fluid Culture - Final Assessment and Plan (1) Colitis Narrative/Plan: Patient doing better at this time. Continue diet. Continue stool softeners. We'll follow. Current Visit: Yes Status: Acute Code(s): K52.9 - NONINFECTIVE GASTROENTERITIS AND COLITIS, UNSPECIFIED SNOMED Code(s): 39080662
--- NOTE | 2020-10-31 16:37 | PN ---
PROGRESS NOTE DATE OF SERVICE: 10/31/2020 This 50-year-old gentleman who was admitted with change in mental status also had possible bilateral pneumonia and sepsis. The patient is also not using the CPAP nighttime. 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 Otherwise, multiple consultants are following the patient closely. The CO2 was 43, creatinine was 2.62. The cultures are negative so far. No chest pain. No palpitations. No fever. PHYSICAL EXAMINATION: On exam, alert and oriented x2. Pulse is 100, blood pressure 105/69, respiration 18, temperature 98.1, pulse ox 97% on 4 L. HEENT: Conjunctivae normal. NECK: No jugular venous distention. CARDIOVASCULAR: S1, S2 muffled. RESPIRATORY: Breath sounds diminished at the bases. A few scattered rhonchi and crackles. ABDOMEN: Soft, nontender. LEGS: No edema, no swelling. NERVOUS SYSTEM: No focal deficits. LABS: Hemoglobin 12.9, sodium 135, potassium 3.2. ASSESSMENT: 1. Change in mental status with possible acute sepsis with possible acute bilateral pneumonia with aspiration gram-negative with sepsis. 2. Massive ascites, undetermined etiology, status post abdominal paracentesis. 3. Multiple nonhealing subcutaneous superficial abdominal wound. 4. Ascites possibly secondary to congestive heart failure and chronic liver disease and cardiac cirrhosis. 5. Possible left colitis on the CAT scan. 6. Cholelithiasis. 7. Status post abdominal paracentesis with 9.3 L of straw-colored fluid. 8. Chronic kidney disease stage 3. 9. Elevated bilirubin. 10.Splenomegaly on the CAT scan. 11.Hypokalemia. 12.History of atrial fibrillation chronic. 13.History of asthma, chronic obstructive pulmonary disease. 14.History of congestive heart failure with chronic diastolic dysfunction, ejection fraction 55% to 60%. 15.History of coronary artery disease. 16.History of chest pain, angina. 17.History of congestive heart failure. 18.History of diabetes mellitus type 2. 19.History of deep vein thrombosis. 20.Hyperlipidemia. 21.Hypertension. 22.History of myocardial infarction. 23.Obstructive sleep apnea. 24.History of chronic kidney disease. 25.Hypothyroidism. 26.History of tracheobronchitis. 27.History of deep vein thrombosis of the left leg in 2004. 28.Thrombocytopenia. 29.History of hiatal hernia. 30.History of MRSA. 31.History of coronary artery disease, stent. 32.History of colonoscopy. 33.Obesity with body mass index of 44.6. 34.FULL CODE. RECOMMENDATIONS AND DISCUSSION: I recommend to continue current medications, continue symptomatic treatment. Continue empiric antibiotics. Otherwise closely follow. Cultures are negative. Recommend BiPAP at night. hypercarbia. Continue with bronchodilators. Guarded prognosis. Patient is on Flagyl at this time. Otherwise, continue with the continue the current medications. Prognosis guarded. Further recommendations to follow. Repeat labs. MMODL / IJN: [id number] / MTDD
[2020-10-31 17:08] LABS: Glucose,Whole Blood 97 mg/dL (75-99)
[2020-10-31 19:57] LABS: Glucose,Whole Blood 116 mg/dL (75-99)
[2020-10-31] MEDS: INSULIN DETEMIR (LEVEMIR) 100 UNIT/ML SYR SQ SCH (20:47)
[2020-10-31] MEDS: GABAPENTIN 300 MG CAP PO SCH (21:00)
[2020-10-31] MEDS: ATORVASTATIN 40 MG TAB PO SCH (21:00)
[2020-10-31] MEDS: SERTRALINE 50 MG TAB PO SCH (21:00)
[2020-10-31] MEDS ORDERED: IPRATROPIUM-ALBUTEROL 3 ML NEB INHALATION PRN (21:03)
[2020-11-01 06:07] LABS: Glucose,Whole Blood 92 mg/dL (75-99)
[2020-11-01] MEDS: PANTOPRAZOLE 40 MG TABLET PO SCH ×2 (06:32→17:21)
[2020-11-01] MEDS: MIDODRINE 5 MG TAB PO SCH ×3 (06:32→17:21)
[2020-11-01] MEDS: IPRATROPIUM-ALBUTEROL 3 ML NEB INHALATION SCH ×3 (07:50→20:20)
[2020-11-01 08:44] LABS: Anisocytosis Moderate; Basophils # (A) 0.1 k/uL (0-0.2); Basophils % (A) 1 %; Eosinophils # (A) 0.2 k/uL (0-0.7); Eosinophils % (A) 3 %; HCT 42.7 % (39.0-53.0); HGB 12.6 gm/dL (13.0-17.5); Hypochromasia Marked; Lymphocytes % (A) 14 %; MCH 24.3 pg (25.0-35.0); MCHC 29.6 g/dL (31.0-37.0); Mean Platelet Volume 9.9; Microcytosis Slight; Monocytes # (A) 0.5 k/uL (0-1.0); Monocytes % (A) 7 %; Neutrophils # (A) 5.4 k/uL (1.3-7.7); Neutrophils % (A) 74 %; Platelet Count 129 k/uL (150-450); Poikilocytosis Slight; RBC 5.21 m/uL (4.30-5.90); RDW 22.2 % (11.5-15.5); WBC 7.3 k/uL (3.8-10.6)
[2020-11-01] MEDS: SPIRONOLACTONE 25 MG TAB PO SCH (09:09)
[2020-11-01] MEDS: METOPROLOL TARTRATE 25 MG TAB PO SCH ×2 (09:09→20:15)
[2020-11-01] MEDS: ASPIRIN 81 MG PO SCH (09:09)
[2020-11-01] MEDS: MULTIVITAMINS, THERA 1 EACH TAB PO SCH (09:09)
[2020-11-01] MEDS: FOLIC ACID 1 MG TAB PO SCH (09:09)
[2020-11-01] MEDS: acetaZOLAMIDE 250 MG TAB PO SCH (09:09)
[2020-11-01] MEDS: SENNOSIDES 8.6 MG TAB PO SCH ×2 (09:09→20:15)
[2020-11-01] MEDS: LEVOFLOXACIN 250 MG TAB PO SCH (09:10)
[2020-11-01] MEDS: metOLazone 5 MG TAB PO SCH (09:10)
[2020-11-01] MEDS: MAGNESIUM HYDROXIDE 2,400 MG/10 ML CUP PO SCH (09:10)
[2020-11-01] MEDS: buPROPion XL 150 MG TAB.ER.24H PO SCH (09:10)
[2020-11-01] MEDS: metroNIDAZOLE 500 MG TAB PO SCH ×3 (09:10→20:15)
[2020-11-01 09:12] LABS: Calcium 9.2 mg/dL (8.4-10.2); Potassium 3.5 mmol/L (3.5-5.1)
[2020-11-01] MEDS ORDERED: SODIUM CHLORIDE 0.9% 1,000 ML IV SCH (11:15)
[2020-11-01 11:51] LABS: Glucose,Whole Blood 109 mg/dL (75-99)
--- NOTE | 2020-11-01 11:56 | PN ---
PROGRESS NOTE Patient is seen for followup for acute kidney injury. Patient's renal function has deteriorated and Lasix was held yesterday. Today's creatinine is at 2.9. CO2 is staying at about 43. Patient is off of diuretics. He continues to feel fairly well. Denies any significant chest pains or shortness of breath. Edema has improved significantly. PHYSICAL EXAMINATION: On examination today, blood pressure 104/60, heart rate 106 per minute. He is afebrile. EXAMINATION OF THE HEART: S1, S2. EXAMINATION OF THE LUNGS: Decreased breath sounds at bases. ABDOMEN: Soft, nontender, obese. Examination of lower extremities shows no evidence of edema. Chronic skin changes noted. [employer] exam grossly intact. LABS: Labs show sodium 133, potassium 3.5, chloride 82, CO2 is 43, BUN 56, creatinine 2.9, hemoglobin 12.6 g/dL. ASSESSMENT: Acute kidney injury cardiorenal initially then worsened secondary to diuresis, currently off Lasix with some worsening of the creatinine even from yesterday. The patient continues to have good urine output. I will add IV fluids for about 8 hours and repeat labs in a.m. No other nephrotoxic agents on board. Patient's blood pressure is on the lower side however he is not on much antihypertensive medications. PLAN: Hold Zaroxolyn and add 50 mL/hour of saline for about 8 hours. Repeat labs in a.m. MMODL / IJN: [id number] /
--- NOTE | 2020-11-01 12:22 | P.PN ---
Subjective This is a pleasant 50 years old male with multiple medical problems. Was admitted with altered mental status suspected infection with left colitis as left colon was thick and CAT scan. The radiologist recommended to rule out cancer. Also patient suspected to have pneumonia on both lower lungs. Infectious disease on the case and patient is already on oral Levaquin on oral Flagyl. Patient also has 3 superficial abdominal ulcers around the umbilicus, there is no much surrounding cellulitis but there is purulent discharge. Also patient admitted with acute kidney injury. Ascites status post 9 L of paracentesis thought to be secondary to cardiac cirrhosis. Also he has history of diverticulitis status post resection and colostomy however currently patient abdominal wound is closed in the midline with dressing in a Place. No colostomy. Patient is breathing quietly today in view of his history of chronic diastolic CHF and anasarca. His blood pressure is chronically low normal with systolic in 90s to 100s. Today patient was sitting in bed comfortable. He denies breathing difficulty or chest pain or coughing. His abdomen is distended with no significant cellulitis but he has 3 once as above. He has some tenderness in his left abdomen patient states that he had one bowel movement yesterday. Vital signs stable and he is saturating 97% on 4 L oxygen via nasal cannula. He is able to tolerate diet about 5200%. CBC and BMP are unremarkable from today. His creatinine is still elevated at 2.9 and his worsening gradually. Potassium 3.5 but carbon dioxide is elevated at 43. Nephrology team on the case and they recommended towards Zaroxolyn and at normal saline 50 mL per hour 8 hours and follow up creatinine tomorrow. Objective - Vital Signs Vital signs: Vital Signs Temp 97.8 F 11/01/20 08:00 Pulse 74 11/01/20 11:52 Resp 16 11/01/20 08:00 BP 104/60 11/01/20 08:00 Pulse Ox 97 11/01/20 04:00 Intake & Output 10/31/20 11/01/20 11/01/20 18:59 06:59 18:59 Intake Total 480 240 Output Total 1875 460 Balance -1395 -460 240 Weight 137.5 kg 139.5 kg Intake: Oral 480 240 Output: Urine 6798 460 Other: Voiding Method Indwelling Catheter Indwelling Catheter Indwelling Catheter # Bowel Movements 1 2 - Exam -GENERAL: The patient is alert and oriented x3, not in any acute distress. Obese HEENT: Pupils are round and equally reacting to light. EOMI. No scleral icterus. No conjunctival pallor. Normocephalic, atraumatic. No pharyngeal erythema. No t hyromegaly. CARDIOVASCULAR: S1 and S2 present. No murmurs, rubs, or gallops. PULMONARY: Chest is clear to auscultation, no wheezing or crackles. -ABDOMEN: Soft, nontender, nondistended, normoactive bowel sounds. No palpable organomegaly. Three abdominal wounds around the umbilicus with purulent discharge but no cellulitis MUSCULOSKELETAL: No joint swelling or deformity. EXTREMITIES: No cyanosis, clubbing, or pedal edema. NEUROLOGICAL: Gross neurological examination did not reveal any focal deficits. SKIN: No rashes. no petechiae. - Labs CBC & Chem 7: 11/01/20 07:35 11/01/20 07:35 Labs: Abnormal Lab Results - Last 24 Hours (Table) 10/31/20 11/01/20 11/01/20 Range/Units 19:56 07:35 07:35 Hgb 12.6 L (13.0-17.5) gm/dL MCH 24.3 L (25.0-35.0) pg MCHC 29.6 L (31.0-37.0) g/dL RDW 22.2 H (11.5-15.5) % Plt Count 129 L (150-450) k/uL Sodium 133 L (137-145) mmol/L Chloride 82 L (98-107) mmol/L Carbon Dioxide 43 H* (22-30) mmol/L BUN 56 H (9-20) mg/dL Creatinine 2.94 H (0.66-1.25) mg/dL Glucose 100 H (74-99) mg/dL POC Glucose (mg/dL) 116 H (75-99) mg/dL 11/01/20 Range/Units 11:49 Hgb (13.0-17.5) gm/dL MCH (25.0-35.0) pg MCHC (31.0-37.0) g/dL RDW (11.5-15.5) % Plt Count (150-450) k/uL Sodium (137-145) mmol/L Chloride (98-107) mmol/L Carbon Dioxide (22-30) mmol/L BUN (9-20) mg/dL Creatinine (0.66-1.25) mg/dL Glucose (74-99) mg/dL POC Glucose (mg/dL) 109 H (75-99) mg/dL Microbiology - Last 24 Hours (Table) 10/29/20 22:07 Blood Culture - Preliminary Blood No Growth after 48 hours Assessment and Plan Assessment: Left sided colitis, acute. Mostly infectious Possible bilateral pneumonia versus atelectasis secondary to bilateral pleural effusion Anasarca secondary to cardiac and liver disease Hepatic cirrhosis secondary to cardiac disease Acute kidney injury, mostly secondary to diuretics Chronic diastolic CHF Altered mental status, present on admission resolved. Patient is fully awake and oriented currently History of diverticulitis status post bowel resection Chronic low normal blood pressure Morbid obesity with BMI of 44.1 Plan: This is a pleasant 50 years old male who presents with colitis, possible pneumonia. Also with anasarca and a KCI. Keep holding diuretics and continue with gentle hydration and check creatinine tomorrow per closing coordinator. Continue with oral Levaquin and Flagyl per surgery and ID team. Labs and medication were reviewed.. Continue same treatment. Continue with symptomatic treatment. Resume home medication. Monitor lytes and vitals. DVT and GI prophylaxis. Further recommendationsas per clinical course of the patient DVT prophylaxis: Subcutaneous heparin GI Prophylaxis: Ppi PT/OT: Recommended subacute rehab Prognosis is guarded
--- NOTE | 2020-11-01 15:22 | P.PN ---
Subjective Progress Note Date: 11/01/20 Principal diagnosis: Abdominal pain Patient doing well today. He is eating more. He had a bowel movement again today. White blood cell count was normal. Objective - Vital Signs Vital signs: Vital Signs Temp 97.8 F 11/01/20 08:00 Pulse 103 H 11/01/20 12:00 Resp 16 11/01/20 13:15 BP 113/75 11/01/20 12:00 Pulse Ox 95 11/01/20 12:00 Intake & Output 10/31/20 11/01/20 11/01/20 18:59 06:59 18:59 Intake Total 480 358 Output Total 1875 460 Balance -1395 -460 358 Weight 137.5 kg 139.5 kg Intake: Oral 480 358 Output: Urine 1875 460 Other: Voiding Method Indwelling Catheter Indwelling Catheter Indwelling Catheter # Bowel Movements 1 2 - Exam Abdomen: Soft, nondistended, no appreciable tenderness, wounds clean - Labs CBC & Chem 7: 11/01/20 07:35 11/01/20 07:35 Labs: Abnormal Lab Results - Last 24 Hours (Table) 10/31/20 11/01/20 11/01/20 Range/Units 19:56 07:35 07:35 Hgb 12.6 L (13.0-17.5) gm/dL MCH 24.3 L (25.0-35.0) pg MCHC 29.6 L (31.0-37.0) g/dL RDW 22.2 H (11.5-15.5) % Plt Count 129 L (150-450) k/uL Sodium 133 L (137-145) mmol/L Chloride 82 L (98-107) mmol/L Carbon Dioxide 43 H* (22-30) mmol/L BUN 56 H (9-20) mg/dL Creatinine 2.94 H (0.66-1.25) mg/dL Glucose 100 H (74-99) mg/dL POC Glucose (mg/dL) 116 H (75-99) mg/dL 11/01/20 Range/Units 11:49 Hgb (13.0-17.5) gm/dL MCH (25.0-35.0) pg MCHC (31.0-37.0) g/dL RDW (11.5-15.5) % Plt Count (150-450) k/uL Sodium (137-145) mmol/L Chloride (98-107) mmol/L Carbon Dioxide (22-30) mmol/L BUN (9-20) mg/dL Creatinine (0.66-1.25) mg/dL Glucose (74-99) mg/dL POC Glucose (mg/dL) 109 H (75-99) mg/dL Microbiology - Last 24 Hours (Table) 10/29/20 22:07 Blood Culture - Preliminary Blood No Growth after 48 hours Assessment and Plan (1) Colitis Narrative/Plan: Continue diet as tolerated. Continue antibiotics. We'll sign off. Please call if needed. Current Visit: Yes Status: Acute Code(s): K52.9 - NONINFECTIVE GASTROENTERITIS AND COLITIS, UNSPECIFIED SNOMED Code(s): 81724062
[2020-11-01 17:02] LABS: Glucose,Whole Blood 110 mg/dL (75-99)
[2020-11-01] MEDS: HEPARIN SODIUM,PORCINE/PF 5,000 UNIT/0.5 ML SYRINGE SQ SCH (20:15)
[2020-11-01] MEDS: SERTRALINE 50 MG TAB PO SCH (20:15)
[2020-11-01] MEDS: GABAPENTIN 300 MG CAP PO SCH (20:15)
[2020-11-01 20:16] LABS: Glucose,Whole Blood 99 mg/dL (75-99)
[2020-11-01] MEDS: ATORVASTATIN 40 MG TAB PO SCH (20:16)
[2020-11-01] MEDS: traMADol 50 MG TAB PO PRN (20:16)
--- NOTE | 2020-11-01 20:19 | PN ---
PROGRESS NOTE DATE OF SERVICE: 11/01/2020 REASON FOR FOLLOWUP: 1. Abdominal wall wound. 2. Colitis. INTERVAL HISTORY: The patient is afebrile, has been breathing comfortably. Denies having any chest pain or shortness of breath or cough. Abdominal pain is currently controlled. No nausea, vomiting or diarrhea. PHYSICAL EXAMINATION: Blood pressure 109/75, pulse of 86, temperature 97.8. He is 97% on 4 L nasal cannula. General description is a middle-aged male lying in bed in no distress. RESPIRATORY SYSTEM: Unlabored breathing. Clear to auscultation anteriorly. HEART: S1, S2. Regular rate and rhythm. ABDOMEN: Soft. Wounds are currently dressed. No guarding or rigidity. No drainage. LABS: Hemoglobin is 12.6, white count 7.3, BUN of 66, creatinine is 2.94. DIAGNOSTIC IMPRESSION AND PLAN: 1. Patient with an abdominal wall wound. No evidence of cellulitis. Local care to continue with Aquacel Silver dressing. 2. Ascites, status post paracentesis. No evidence of any infection. 3. Colitis seen on the CT. Covered with Levaquin and Flagyl; continue for about 8-10 days and continue supportive care. MMODL / IJN: [id number] /
[2020-11-01] MEDS: INSULIN DETEMIR (LEVEMIR) 100 UNIT/ML SYR SQ SCH (21:08)
[2020-11-02 06:19] LABS: Glucose,Whole Blood 89 mg/dL (75-99)
[2020-11-02] MEDS: PANTOPRAZOLE 40 MG TABLET PO SCH ×2 (06:25→17:06)
[2020-11-02] MEDS: MIDODRINE 5 MG TAB PO SCH ×3 (06:25→17:05)
[2020-11-02] MEDS: metroNIDAZOLE 500 MG TAB PO SCH ×3 (09:16→21:05)
[2020-11-02] MEDS: METOPROLOL TARTRATE 25 MG TAB PO SCH ×2 (09:16→21:05)
[2020-11-02] MEDS: acetaZOLAMIDE 250 MG TAB PO SCH (09:16)
[2020-11-02] MEDS: SENNOSIDES 8.6 MG TAB PO SCH ×2 (09:16→21:05)
[2020-11-02] MEDS: HEPARIN SODIUM,PORCINE/PF 5,000 UNIT/0.5 ML SYRINGE SQ SCH ×2 (09:16→21:05)
[2020-11-02] MEDS: MAGNESIUM HYDROXIDE 2,400 MG/10 ML CUP PO SCH (09:16)
[2020-11-02] MEDS: ASPIRIN 81 MG PO SCH (09:16)
[2020-11-02] MEDS: FOLIC ACID 1 MG TAB PO SCH (09:16)
[2020-11-02] MEDS: MULTIVITAMINS, THERA 1 EACH TAB PO SCH (09:16)
[2020-11-02] MEDS: LEVOFLOXACIN 250 MG TAB PO SCH (09:17)
[2020-11-02] MEDS: buPROPion XL 150 MG TAB.ER.24H PO SCH (09:17)
[2020-11-02] MEDS: SPIRONOLACTONE 25 MG TAB PO SCH (09:18)
[2020-11-02 11:03] LABS: Potassium 3.2 mmol/L (3.5-5.1)
--- NOTE | 2020-11-02 11:12 | PN ---
PROGRESS NOTE Patient is seen for followup for acute kidney injury. Patient was initially admitted with volume overload and was being diuresed. However, his renal function had worsened and he became volume depleted. Diuretics were held yesterday. I also gave him IV fluids for about 8 hours yesterday. He continues to have good urine output. Labs are pending from today. No major complaints except for fatigue. Urine output at 2.3 L for 24 hours. PHYSICAL EXAMINATION: On examination today, patient is comfortable. Blood pressure 98/68, heart rate 86 per minute. He is afebrile. EXAMINATION OF THE HEART: S1, S2. EXAMINATION OF LUNGS: Decreased breath sounds at bases. Abdomen is soft, morbidly obese. Examination of lower extremities shows no evidence of edema. Chronic skin changes noted. LABS: Labs are not available from today. ASSESSMENT: 1. Acute kidney injury, cardiorenal and is recently worse secondary to diuresis. Lasix is currently on hold. 2. Congestive heart failure with severe cardiomyopathy, mostly diastolic heart failure. 3. Chronic kidney disease stage 3B, secondary to nephrosclerosis, cardiorenal syndrome. Baseline creatinine around 2. 4. Type 2 diabetes. 5. Hypokalemia, status post replacement. 6. Metabolic alkalosis secondary to recent diuresis. PLAN: Check labs today. Continue to hold off on diuretics for now. MMODL / IJN: [id number] /
[2020-11-02 11:53] LABS: Glucose,Whole Blood 75 mg/dL (75-99)
[2020-11-02] MEDS: IPRATROPIUM-ALBUTEROL 3 ML NEB INHALATION SCH ×2 (11:55→19:50)
--- NOTE | 2020-11-02 12:17 | P.PN ---
Subjective This is a pleasant 50 years old male with multiple medical problems. Was admitted with altered mental status suspected infection with left colitis as left colon was thick and CAT scan. The radiologist recommended to rule out cancer. Also patient suspected to have pneumonia on both lower lungs. Infectious disease on the case and patient is already on oral Levaquin on oral Flagyl. Patient also has 3 superficial abdominal ulcers around the umbilicus, there is no much surrounding cellulitis but there is purulent discharge. Also patient admitted with acute kidney injury. Ascites status post 9 L of paracentesis thought to be secondary to cardiac cirrhosis. Also he has history of diverticulitis status post resection and colostomy however currently patient abdominal wound is closed in the midline with dressing in a Place. No colostomy. Patient is breathing quietly today in view of his history of chronic diastolic CHF and anasarca. His blood pressure is chronically low normal with systolic in 90s to 100s. Today patient was sitting in bed comfortable. He denies breathing difficulty or chest pain or coughing. His abdomen is distended with no significant cellulitis but he has 3 once as above. He has some tenderness in his left abdomen patient states that he had one bowel movement yesterday. Vital signs stable and he is saturating 97% on 4 L oxygen via nasal cannula. He is able to tolerate diet about 5200%. CBC and BMP are unremarkable from today. His creatinine is still elevated at 2.9 and his worsening gradually. Potassium 3.5 but carbon dioxide is elevated at 43. Nephrology team on the case and they recommended towards Zaroxolyn and at normal saline 50 mL per hour 8 hours and follow up creatinine tomorrow. 11/02/2020 Patient still has loose stool and diarrhea, he had 2 bowel movements, large amount today. However he denies abdominal pain today and rated as 0/10, he has minimal tenderness, he is somewhat drowsy. Breathing is quiet and his the abdominal wounds are stable. He is hemodynamically stable. He is at baseline of 4 L oxygen via nasal cannula. Labs look stable as well and creatinine improving down to 2.7 after stopping Zaroxolyn and give him some normal saline yesterday. Also he remains on oral Levaquin, renal dose and oral Flagyl. We will check for C. diff. Several consultants on the case including surgery, GI, ID, nephrology, pulmonary Objective - Vital Signs Vital signs: Vital Signs Temp 98.3 F 11/02/20 08:00 Pulse 82 11/02/20 08:00 Resp 16 11/02/20 08:00 BP 119/81 11/02/20 08:00 Pulse Ox 99 11/02/20 08:00 Intake & Output 11/01/20 11/02/20 11/02/20 18:59 06:59 18:59 Intake Total 776 Output Total 1200 Balance 776 -1200 Weight 136.5 kg Intake: Intake, IV Titration 300 Amount Sodium Chloride 0.9% 1, 300 000 ml @ 50 mls/hr IV . Q20H ZURI Rx#:[id number] Oral 476 Output: Urine 1200 Other: Voiding Method Indwelling Catheter Indwelling Catheter Indwelling Catheter # Bowel Movements 2 - Exam -GENERAL: The patient is alert and oriented x3, not in any acute distress. Obese HEENT: Pupils are round and equally reacting to light. EOMI. No scleral icterus. No conjunctival pallor. Normocephalic, atraumatic. No pharyngeal erythema. No thyromegaly. CARDIOVASCULAR: S1 and S2 present. No murmurs, rubs, or gallops. PULMONARY: Chest is clear to auscultation, no wheezing or crackles. -ABDOMEN: Soft, nontender, nondistended, normoactive bowel sounds. No palpable organomegaly. Three abdominal wounds around the umbilicus with purulent discharge but no cellulitis MUSCULOSKELETAL: No joint swelling or deformity. EXTREMITIES: No cyanosis, clubbing, or pedal edema. NEUROLOGICAL: Gross neurological examination did not reveal any focal deficits. SKIN: No rashes. no petechiae. - Labs CBC & Chem 7: 11/01/20 07:35 11/02/20 10:31 Labs: Abnormal Lab Results - Last 24 Hours (Table) 11/01/20 11/02/20 Range/Units 16:48 10:31 Sodium 136 L (137-145) mmol/L Potassium 3.2 L (3.5-5.1) mmol/L Chloride 85 L (98-107) mmol/L Carbon Dioxide 40 H (22-30) mmol/L BUN 54 H (9-20) mg/dL Creatinine 2.75 H (0.66-1.25) mg/dL POC Glucose (mg/dL) 110 H (75-99) mg/dL Microbiology - Last 24 Hours (Table) 10/29/20 22:07 Blood Culture - Preliminary Blood No Growth after 72 hours Assessment and Plan Assessment: Left sided colitis, acute. Mostly infectious. 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 Patient is fully awake and oriented currently History of diverticulitis status post bowel resection Chronic low normal blood pressure Morbid obesity with BMI of 44.1 Plan: This is a pleasant 50 years old male who presents with colitis, possible pneumonia. Also with anasarca and a KCI. Keep holding diuretics and continue with gentle hydration and check creatinine tomorrow per advanced practice professional. Continue with oral Levaquin and Flagyl per surgery and ID team. Labs and medication were reviewed.. Continue same treatment. Continue with symptomatic treatment. Resume home medication. Monitor lytes and vitals. DVT and GI prophylaxis. Further recommendationsas per clinical course of the patient DVT prophylaxis: Subcutaneous heparin GI Prophylaxis: Ppi PT/OT: Recommended subacute rehab Prognosis is guarded
[2020-11-02] MEDS ORDERED: POTASSIUM CHLORIDE ER 20 MEQ TAB.ER PO STA (15:18)
[2020-11-02 17:11] LABS: Glucose,Whole Blood 106 mg/dL (75-99)
--- NOTE | 2020-11-02 17:18 | PN ---
PROGRESS NOTE DATE OF SERVICE: 11/02/2020 REASON FOR FOLLOWUP: 1. Abdominal wall wound. 2. Colitis. INTERVAL HISTORY: The patient is currently afebrile. The patient is breathing comfortably. Denies having any chest pain , pt is still complains of some abdominal discomfort. No vomiting or any diarrhea. PHYSICAL EXAMINATION: Blood pressure is 108/77 with a pulse of 83, temperature 98.3. He is 90% on 4 L nasal cannula. General description is a middle-aged male lying in bed in no distress. RESPIRATORY SYSTEM: Unlabored breathing. Clear to auscultation anteriorly. HEART: S1, S2. Regular rate and rhythm. ABDOMEN: Soft. Abdominal wound currently covered. No drainage on the dressing. LABS: BUN of 54, creatinine is 2.57. DIAGNOSTIC IMPRESSION AND PLAN: 1. Patient with abdominal wall wound, multiple, with no evidence of any cellulitis. Local care to continue with an Aquacel Silver dressing. 2. Patient with ascites, status post paracentesis. Fluid culture has been negative. 3. Patient with evidence of colitis on repeat CT. Covered with Levaquin and Flagyl; to continue and monitor his clinical course closely. MMODL / IJN: [id number] / MTDD
[2020-11-02 20:20] LABS: Glucose,Whole Blood 101 mg/dL (75-99)
[2020-11-02] MEDS: ATORVASTATIN 40 MG TAB PO SCH (21:05)
[2020-11-02] MEDS: GABAPENTIN 300 MG CAP PO SCH (21:05)
[2020-11-02] MEDS: SERTRALINE 50 MG TAB PO SCH (21:05)
[2020-11-02] MEDS: INSULIN DETEMIR (LEVEMIR) 100 UNIT/ML SYR SQ SCH (21:05)
[2020-11-03 06:02] LABS: Glucose,Whole Blood 85 mg/dL (75-99)
[2020-11-03] MEDS: MIDODRINE 5 MG TAB PO SCH ×2 (06:34→12:30)
[2020-11-03] MEDS: PANTOPRAZOLE 40 MG TABLET PO SCH (06:34)
[2020-11-03] MEDS: IPRATROPIUM-ALBUTEROL 3 ML NEB INHALATION SCH ×2 (07:59→11:55)
[2020-11-03 08:13] VITALS: RESP 20
[2020-11-03] MEDS: acetaZOLAMIDE 250 MG TAB PO SCH (09:44)
[2020-11-03] MEDS: METOPROLOL TARTRATE 25 MG TAB PO SCH (09:44)
[2020-11-03] MEDS: SENNOSIDES 8.6 MG TAB PO SCH (09:44)
[2020-11-03] MEDS: HEPARIN SODIUM,PORCINE/PF 5,000 UNIT/0.5 ML SYRINGE SQ SCH (09:44)
[2020-11-03] MEDS: metroNIDAZOLE 500 MG TAB PO SCH (09:44)
[2020-11-03] MEDS: ASPIRIN 81 MG PO SCH (09:44)
[2020-11-03] MEDS: LEVOFLOXACIN 250 MG TAB PO SCH (09:45)
[2020-11-03] MEDS: buPROPion XL 150 MG TAB.ER.24H PO SCH (09:45)
[2020-11-03] MEDS: SPIRONOLACTONE 25 MG TAB PO SCH (09:45)
[2020-11-03] MEDS: FOLIC ACID 1 MG TAB PO SCH (09:45)
[2020-11-03] MEDS: MULTIVITAMINS, THERA 1 EACH TAB PO SCH (09:45)
[2020-11-03] MEDS: MAGNESIUM HYDROXIDE 2,400 MG/10 ML CUP PO SCH (09:48)
--- NOTE | 2020-11-03 11:27 | P.DS ---
Providers Date of admission: 10/24/20 18:13 Attending physician: Joshua Rubi Consults: 10/24/20 18:14 Consult Physician Urgent Consulting Provider: Hector Turcios Consult Reason/Comments: aechf, ckd Do you want consulting provider notified?: Yes 10/24/20 18:22 Consult Physician Routine Consulting Provider: Alicja Short Consult Reason/Comments: sepsis Do you want consulting provider notified?: Yes 10/24/20 18:23 Consult Physician Routine Consulting Provider: Avtar Adams Consult Reason/Comments: pneumonia Do you want consulting provider notified?: Yes 10/29/20 18:57 Consult Physician Routine Consulting Provider: Severiano Florence Consult Reason/Comments: abnormal ct scan chest Do you want consulting provider notified?: Yes Primary care physician: [facility] Course: Diagnoses: Left sided colitis, acute. Mostly infectious. 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 Patient is fully awake and oriented currently History of diverticulitis status post bowel resection Chronic low normal blood pressure Morbid obesity with BMI of 44.1 Hospital course: This is a pleasant 50 years old male with multiple medical problems. Was admitted with altered mental status suspected infection with left colitis as left colon was thick and CAT scan. The radiologist recommended to rule out cancer. Also patient suspected to have pneumonia on both lower lungs its very unlikely as patient denies any respiratory symptoms, no coughing, no dyspnea, no chest pain. Infectious disease on the case and patient is already on oral Levaquin on oral Flagyl. Patient also has 3 superficial abdominal ulcers around the umbilicus, there is no much surrounding cellulitis but there is purulent discharge. Also patient admitted with acute kidney injury. Ascites status post 9 L of paracentesis thought to be secondary to cardiac cirrhosis. Also he has history of diverticulitis status post resection and colostomy however currently patient abdominal wound is closed in the midline with dressing in a Place. No colostomy. Patient is breathing quietly today in view of his history of chronic diastolic CHF and anasarca. His blood pressure is chronically low normal with systolic in 90s to 100s. Today patient was sitting in bed comfortable. He denies breathing difficulty or chest pain or coughing. His abdomen is distended with no significant cellulitis but he has 3 once as above. He has some tenderness in his left lower abdomen which is improving. Patient has 2 loose bowel movement yesterday and 1 this morning however patient tolerated diet well Also his baseline creatinine around 2, creatinine went up to 0.6 and 2.9, his Lasix and Zaroxolyn were held and his creatinine improved down to 2.7 The patient feels well and he thinks he is ready to go back to his ECF Patient was cleared by all consultants including infectious disease and nephrology team. Surgery, GI and pulmonary team's already signed off the case. Patient will be discharged on short course of oral antibiotics as per ID team Problems and management plan were discussed with the patient and he verbalized understanding and acceptance Patient was found stable and can be discharged home however he needs follow-up as an outpatient. Patient was instructed to follow up with Edgardo payton within one week and patient agrees Patient also was instructed to follow up with GI team Dr. Walls 1-[address] Florence surgeon in 1-2 months also Physical exam -Gen: patient is a AAOx3, no distress. Morbidly obese CVS: S1-S2, RRR, no murmur Lungs: B/L CTA, no wheezing -Abdomen: soft, mild LLQ tenderness , no tenderness, positive bowel sounds. Mild 3 superficial wounds Extremity: no leg edema or induration Time spent more than 35 minutes Patient Condition at Discharge: Stable Plan - Discharge Summary Discharge Rx Participant: No New Discharge Prescriptions: No Action Spironolactone [Aldactone] 25 mg PO DAILY Apixaban [Eliquis] 5 mg PO BID #60 tab buPROPion XL [Wellbutrin XL] 150 mg PO DAILY Furosemide [Lasix] 60 mg PO BID Gabapentin [Neurontin] 300 mg PO HS Isosorbide Mononitrate ER [Imdur] 30 mg PO DAILY #30 tab.er.24h Atorvastatin [Lipitor] 40 mg PO HS #30 tablet traMADol HCL 50 mg PO Q12H PRN PRN Reason: Pain Omeprazole [PriLOSEC] 20 mg PO DAILY Aspirin EC [Ecotrin Low Dose] 81 mg PO DAILY Ipratropium-Albuterol Nebulize [Duoneb 0.5 mg-3 mg/3 ml Soln] 3 ml INHALATION RT-Q6H Insulin Detemir [Levemir Flextouch] 5 units SQ HS Metoprolol Tartrate [Lopressor] 100 mg PO BID #60 tablet Sertraline [Zoloft] 50 mg PO HS Multivitamins, Thera [Multivitamin (formulary)] 1 tab PO DAILY metOLazone [Zaroxolyn] 2.5 mg PO DAILY Acetaminophen [Tylenol] 650 mg PO Q6H PRN PRN Reason: Fever Folic Acid 0.4 mcg PO DAILY Doxycycline Monohydrate [Monodox] 100 mg PO Q12H Sennosides/Docusate Sodium [Senna Plus 8.6-50 mg Softgel] 1 tab PO BID Discharge Medication List Spironolactone [Aldactone] 25 mg PO DAILY 06/23/20 [History] Apixaban [Eliquis] 5 mg PO BID #60 tab 06/26/20 [Rx] buPROPion XL [Wellbutrin XL] 150 mg PO DAILY 07/26/20 [History] Furosemide [Lasix] 60 mg PO BID 08/07/20 [History] Gabapentin [Neurontin] 300 mg PO HS 08/07/20 [History] Isosorbide Mononitrate ER [Imdur] 30 mg PO DAILY #30 tab.er.24h 08/11/20 [Rx] Insulin Detemir [Levemir Flextouch] 5 units SQ HS 09/07/20 [History] Ipratropium-Albuterol Nebulize [Duoneb 0.5 mg-3 mg/3 ml Soln] 3 ml INHALATION RT-Q6H 09/07/20 [History] Atorvastatin [Lipitor] 40 mg PO HS #30 tablet 09/09/20 [Rx] Metoprolol Tartrate [Lopressor] 100 mg PO BID #60 tablet 09/09/20 [Rx] Acetaminophen [Tylenol] 650 mg PO Q6H PRN 10/24/20 [History] Aspirin EC [Ecotrin Low Dose] 81 mg PO DAILY 10/24/20 [History] Doxycycline Monohydrate [Monodox] 100 mg PO Q12H 10/24/20 [History] Folic Acid 0.4 mcg PO DAILY 10/24/20 [History] Multivitamins, Thera [Multivitamin (formulary)] 1 tab PO DAILY 10/24/20 [History] Omeprazole [PriLOSEC] 20 mg PO DAILY 10/24/20 [History] Sennosides/Docusate Sodium [Senna Plus 8.6-50 mg Softgel] 1 tab PO BID 10/24/20 [History] Sertraline [Zoloft] 50 mg PO HS 10/24/20 [History] metOLazone [Zaroxolyn] 2.5 mg PO DAILY 10/24/20 [History] traMADol HCL 50 mg PO Q12H PRN 10/24/20 [History] Follow up Appointment(s)/Referral(s): Severiano Florence MD [Medical Doctor] - 4 Weeks Jeovanny Payton MD [Primary Care Provider] - 1-2 days Avtar Adams MD [STAFF PHYSICIAN] - 1 Week Amy Walls MD [STAFF PHYSICIAN] - 4 Weeks (We recommend to repeat the CAT scan of the abdomen and pelvis in 2-3 months) Hector Turcios DO [STAFF PHYSICIAN] - 2 Weeks
[2020-11-03 11:32] LABS: Glucose,Whole Blood 82 mg/dL (75-99)
[2020-11-03 12:11] LABS: Magnesium 2.4 mg/dL (1.6-2.3); Potassium 3.6 mmol/L (3.5-5.1)
[2020-11-03 12:30] VITALS: BP 111/65; PULSE 109; TEMP 97.5
--- NOTE | 2020-11-03 13:14 | PN ---
PROGRESS NOTE Patient is seen for followup for acute kidney injury on top of chronic kidney disease. His renal function improved after gentle IV hydration. Patient has had good urine output. Serum creatinine was down to 2.75 yesterday. PHYSICAL EXAMINATION: On examination today, he is comfortable, awake, not in any acute distress. Blood pressure 94/53, heart rate 63 per minute. He is afebrile. EXAMINATION OF THE HEART: S1, S2. EXAMINATION OF THE LUNGS: Bilateral breath sounds are heard. Abdomen is soft. Morbidly obese. Examination lower extremities shows chronic skin changes. No edema noted. VISUAL SPECIALIST exam grossly intact. LABS: Labs are not available from today. Yesterday, creatinine was down to 2.75, potassium 3.2, sodium 136. ASSESSMENT: 1. Acute kidney injury initially cardiorenal and then creatinine worsened again secondary to over-diuresis. The patient is currently status post IV fluids for about 10 hours with improvement in renal function. Baseline creatinine around 2.0. He can be discharged home on 40 mg p.o. b.i.d. of Lasix. 2. Congestive heart failure, mostly diastolic heart failure. 3. Chronic kidney disease stage 3B, secondary to nephrosclerosis and cardiorenal syndrome. Baseline creatinine about 2. 4. Hypokalemia, status post replacement. 5. Morbid obesity. PLAN: The patient is stable for discharge from nephrology standpoint. He should take Lasix 40 mg p.o. b.i.d. and have labs done as outpatient in 3-4 days post discharge and follow up in our office in about 2 weeks time. MMODL / IJN: [id number] /
[2020-11-03] MEDS ORDERED: POTASSIUM CHLORIDE ER 20 MEQ TAB.ER PO STA (13:25)
--- NOTE | 2020-11-03 14:00 | P.PN ---
Progress Note - Text Progress Note Date: 11/03/20 REASON FOR FOLLOWUP: 1. Abdominal wall wound. 2. Colitis. INTERVAL HISTORY: The patient is afebrile. The patient is breathing comfortably. The Pt denies having any chest pain , pt denied abdominal pain today and no vomiting or any diarrhea. PHYSICAL EXAMINATION: Blood pressure is 110/70 with a pulse of 83, temperature 98.3. He is 90% on 4 L nasal cannula. General description is a middle-aged male lying in bed in no distress. RESPIRATORY SYSTEM: Unlabored breathing. Clear to auscultation anteriorly. HEART: S1, S2. Regular rate and rhythm. ABDOMEN: Soft. Abdominal wound currently covered. No drainage on the dressing. LABS: reviewed DIAGNOSTIC IMPRESSION AND PLAN: 1. Patient with abdominal wall wound, multiple, with no evidence of any cellulitis. Local care to continue with an Aquacel Silver dressing change q48hr. 2. Patient with ascites, status post paracentesis. Fluid culture has been negative. 3. Patient with evidence of colitis on repeat CT.Improved with Levaquin and Flagyl; to continue x 7 more days and monitor his clinical course closely.
--- NOTE | 2020-11-08 14:17 | CDI ---
Documentation Clarification Form Date: 11/08/20 From: Dolly Mendez Phone: Admit Date: 10/24/2020 06:13:00 PM Patient Name: Maximo Cerna Visit Number: [id number] Discharge Date: 11/03/2020 01:55:00 PM ATTENTION: The Clinical Documentation Specialists (CDI) and [facility] Coding Staff appreciate your assistance in clarifying documentation. Please respond to the clarification below the line at the bottom and electronically sign. The CDI & [facility] Coding staff will review the response and follow-up if needed. Please note: Queries are made part of the Legal Health Record. If you have any questions, please contact the author of this message via ITS. Dr. Barahona E Rebecca, Conflicting documentation has been found in the medical record. As attending physician, please provide clarification. Per H&P "Change in mental status with nausea. Rule out sepsis" and "possible acute bilateral pneumonia, aspiration or Gram-negative with sepsis". Per Dr Short's consult "Patient presented to hospital with abdominal pain in this patient who did have evidence of abdominal ascites did have a large ventral hernia and multiple gallstones could be contributing to his symptoms of abdominal pain, clinically doubt sepsis in this patient as well nontoxic with no fever or elevated white count. Per your DS no mention of sepsis or pneumonia. History/Risk Factors: COPD, HTN W Acute on chronic diastolic CHF w CKD IIIb, left sided colitis, abdominal ulcers w cellulitis on admission Clinical Indicators: WBC-4.6, Neutrophils-52.2, lactic acid-1.0, T-98.9, P-69, R-18, BP-100/78, BC negative Treatment:IV Cefepime, IV Vanco, Please clarify which diagnosis is most appropriate: [ ] Gram negative sepsis [ ] Sepsis ruled out [ ] Other (please specify) [ ] Unable to determine per my DS , there is mention of possible pneumonia, please refer to the diagoses section no sepsis MTDD
== END 2020-11-03 13:55 | DRG 385 ==
LOC: EC 15:14 → 3NCARDOBS 18:13 → 3SCARD 19:04 → 4SSUR 20:15 → 3SCARD 10-25 18:56
PROVIDERS: ADMIT Hospitalist; ATTEND Hospitalist
PROC: 05H633Z Insertion of Infusion Device into Left Subclavian Vein, Percutaneous Approach (ICD-10-PCS; 2020-10-25)
PROC: 0W9G3ZX Drainage of Peritoneal Cavity, Percutaneous Approach, Diagnostic (ICD-10-PCS; principal; 2020-10-26)
PROC: 5A09457 Assistance with Respiratory Ventilation, 24-96 Consecutive Hours, Continuous Positive Airway Pressure (ICD-10-PCS; 2020-10-26)
DX: K51.50 Left sided colitis without complications (principal); J15.6 Pneumonia due to other Gram-negative bacteria; I50.33 Acute on chronic diastolic (congestive) heart failure; G93.41 Metabolic encephalopathy; I48.20 Chronic atrial fibrillation, unspecified; J44.0 Chronic obstructive pulmonary disease with (acute) lower respiratory infection; I13.0 Hypertensive heart and chronic kidney disease with heart failure and stage 1 through stage 4 chronic kidney disease, or unspecified chronic kidney disease; R18.8 Other ascites; N17.9 Acute kidney failure, unspecified; L03.311 Cellulitis of abdominal wall; E87.3 Alkalosis; I42.9 Cardiomyopathy, unspecified; J98.11 Atelectasis; Z68.42 Body mass index [BMI] 45.0-49.9, adult; D69.6 Thrombocytopenia, unspecified; I27.20 Pulmonary hypertension, unspecified; E11.22 Type 2 diabetes mellitus with diabetic chronic kidney disease; E11.51 Type 2 diabetes mellitus with diabetic peripheral angiopathy without gangrene; K74.60 Unspecified cirrhosis of liver; L98.499 Non-pressure chronic ulcer of skin of other sites with unspecified severity; E66.01 Morbid (severe) obesity due to excess calories; N18.32 Chronic kidney disease, stage 3b; Z79.4 Long term (current) use of insulin; Z20.822 Contact with and (suspected) exposure to COVID-19; E88.81 Metabolic syndrome and other insulin resistance; I95.9 Hypotension, unspecified; I34.0 Nonrheumatic mitral (valve) insufficiency; K43.9 Ventral hernia without obstruction or gangrene; E86.9 Volume depletion, unspecified; E87.6 Hypokalemia; E78.5 Hyperlipidemia, unspecified; G47.33 Obstructive sleep apnea (adult) (pediatric); D50.9 Iron deficiency anemia, unspecified; R09.02 Hypoxemia; D72.819 Decreased white blood cell count, unspecified; F32.9 Major depressive disorder, single episode, unspecified; I25.10 Atherosclerotic heart disease of native coronary artery without angina pectoris; I25.2 Old myocardial infarction; E03.9 Hypothyroidism, unspecified; R16.1 Splenomegaly, not elsewhere classified; K80.20 Calculus of gallbladder without cholecystitis without obstruction; K59.09 Other constipation; K57.90 Diverticulosis of intestine, part unspecified, without perforation or abscess without bleeding; I87.8 Other specified disorders of veins; N20.0 Calculus of kidney; T50.2X5A Adverse effect of carbonic-anhydrase inhibitors, benzothiadiazides and other diuretics, initial encounter; T50.906A Underdosing of unspecified drugs, medicaments and biological substances, initial encounter; Z91.128 Patient's intentional underdosing of medication regimen for other reason; Z91.19 Patient's noncompliance with other medical treatment and regimen; Y63.6 Underdosing and nonadministration of necessary drug, medicament or biological substance; Z79.01 Long term (current) use of anticoagulants; Z79.82 Long term (current) use of aspirin; Z79.899 Other long term (current) drug therapy; Z86.718 Personal history of other venous thrombosis and embolism; Z87.442 Personal history of urinary calculi; Z95.5 Presence of coronary angioplasty implant and graft; Z86.14 Personal history of Methicillin resistant Staphylococcus aureus infection; Z90.49 Acquired absence of other specified parts of digestive tract; Z87.19 Personal history of other diseases of the digestive system; Z87.2 Personal history of diseases of the skin and subcutaneous tissue; Z87.891 Personal history of nicotine dependence; Z74.01 Bed confinement status; Z98.890 Other specified postprocedural states; Z71.3 Dietary counseling and surveillance; Z88.1 Allergy status to other antibiotic agents; Z88.0 Allergy status to penicillin; Z88.8 Allergy status to other drugs, medicaments and biological substances; Z91.048 Other nonmedicinal substance allergy status; Z82.62 Family history of osteoporosis; Z82.61 Family history of arthritis; Z83.6 Family history of other diseases of the respiratory system; Z83.79 Family history of other diseases of the digestive system; Z82.49 Family history of ischemic heart disease and other diseases of the circulatory system
CPT/HCPCS: 36415; 36573; 49083; 71045; 74176; 76705; 80048; 80053; 81003; 82042; 82140; 82533; 83605; 83690; 83735; 83880; 84145; 84157; 84484; 85025; 85027; 85379; 85610; 85730; 86140; 87040; 87070; 87086; 87205; 87636; 88108; 88305; 89050; 93005; 94640; 94660; 94760; 99285

== ENCOUNTER 2021-01-11 13:45 | Inpatient (IN) | payer MEDICARE, OTHER ==
[2021-01-11] MEDS ORDERED: SODIUM CHLORIDE 0.9% 500 ML 500 ML IV ONE (14:07)
--- NOTE | 2021-01-11 14:20 | ED ---
General Adult HPI - General Chief complaint: Altered Mental Status Stated complaint: altered mental status Time Seen by Provider: 01/11/21 13:55 Source: patient, EMS, RN notes reviewed, old records reviewed Mode of arrival: EMS Limitations: altered mental status - History of Present Illness Initial comments: This is a 50-year-old male who [facility]. Patient sent in for altered mental status as well as increased creatinine and decreased appetite. Patient is a poor historian he is only alert and oriented times one and therefore his history is not very accurate. Patient does deny any pain currently. There is been no report of any fever or difficulty breathing or vomiting or diarrhea. Patient has a small superficial cut on lip that is bleeding. No further history is available no family members with the patient or caregiver. - Related Data Home Medications Medication Instructions Recorded Confirmed buPROPion XL [Wellbutrin XL] 150 mg PO DAILY 07/26/20 01/11/21 Ipratropium-Albuterol Nebulize 3 ml INHALATION RT-Q6H 09/07/20 01/11/21 [Duoneb 0.5 mg-3 mg/3 ml Soln] Multivitamins, Thera [Multivitamin 1 tab PO HS 10/24/20 01/11/21 (formulary)] Sertraline [Zoloft] 50 mg PO HS@199910/24/20 01/11/21 Acetaminophen [Tylenol 8 Hour] 650 mg PO Q6H PRN 01/11/21 01/11/21 Atorvastatin [Lipitor] 40 mg PO HS@199901/11/21 01/11/21 Levothyroxine Sodium [Synthroid] 25 mcg PO HS@199901/11/21 01/11/21 Metoprolol Tartrate [Lopressor] 12.5 mg PO BID@0700,1900 01/11/21 01/11/21 Sennosides [Senokot] 17.2 mg PO BID 01/11/21 01/11/21 Previous Rx's Medication Instructions Recorded Apixaban [Eliquis] 5 mg PO BID #60 tab 06/26/20 Allergies Allergy/AdvReac Type Severity Reaction Status Date / Time adhesive Allergy "PLASTIC Verified 01/11/21 14:00 TAPE PEELS SKIN,PAPER TAPE IS OK" linezolid Allergy Unknown Verified 01/11/21 14:00 penicillin G Allergy Rash/Hives Verified 01/11/21 14:00 Cephalosporins AdvReac FEVER Verified 01/11/21 14:00 Review of Systems ROS Statement: Those systems with pertinent positive or pertinent negative responses have been documented in the HPI. ROS Other: All systems not noted in ROS Statement are negative. Past Medical History Past Medical History: Atrial Fibrillation, Asthma, Coronary Artery Disease (CAD), Chest Pain / Angina, Heart Failure, COPD, Diabetes Mellitus, Deep Vein Thrombosis (DVT), Hyperlipidemia, Hypertension, Myocardial Infarction ([place]), Renal Disease, Sleep Apnea/CPAP/BIPAP, Thyroid Disorder, Vascular Disorder Additional Past Medical History / Comment(s): CHF, tracheobronchitis, CKD stage III, kidney stones, DVT L leg in 2004, KAMRYN without device use, colon abscess with bowel resection, multiple abdominal surgeries for a hiatal hernia that was complicated by prolonged hospitalization and prolonged ventilator dependent respiratory failure requiring a tracheostomy tube insertion, pvd-lower legs discolored/edematous, diverticular disease, chronic iron deficiency anemia, vertigo at times, Last Myocardial Infarction Date:: History of Any Multi-Drug Resistant Organisms: MRSA Date of last positivie culture/infection: 02/01/15 MDRO Source:: Abdomen Past Surgical History: Bowel Resection, Heart Catheterization With Stent, Hernia Repair Additional Past Surgical History / Comment(s): Colonoscopies, heart stents x 4, bowel resection with colostomy and colostomy reversal (removed a foot of pts colon)-2003, hernia repair with skin grafts and 2 fistula repairs (hospitalized for 1 year @[facility])-2010 MRSA 2015 in wounds. Past Anesthesia/Blood Transfusion Reactions: No Reported Reaction Additional Past Anesthesia/Blood Transfusion Reaction / Comment(s): Pt has received blood in past without reaction-2010 Date of Last Stent Placement:: 03/28/2015 Past Psychological History: Depression Smoking Status: Former smoker Past Alcohol Use History: None Reported Past Drug Use History: None Reported - Past Family History Mother Family Medical History: Osteoarthritis (OA), Pneumonia Additional Family Medical History / Comment(s): osteoporosis. arthroscopy surgery for knee Father Family Medical History: Liver Disease, Renal Disease Additional Family Medical History / Comment(s): triple heart bypass. liver transplant. aortic aneursym General Exam - General Exam Comments Initial Comments: GENERAL: Patient is well-developed and well-nourished. Patient is nontoxic and well- hydrated and is in mild distress. ENT: Neck is soft and supple. No significant lymphadenopathy is noted. Oropharynx is clear. Moist mucous membranes. Neck has full range of motion without eliciting any pain. EYES: The sclera were anicteric and conjunctiva were pink and moist. Extraocular movements were intact and pupils were equal round and reactive to light. Eyelids were unremarkable. PULMONARY: Unlabored respirations. Good breath sounds bilaterally. No audible rales rhonchi or wheezing was noted. CARDIOVASCULAR: There is a regular rate and rhythm without any murmurs gallops or rubs. ABDOMEN: Soft and nontender with normal bowel sounds. SKIN: Skin is clear with no lesions or rashes and otherwise unremarkable. NEUROLOGIC: Patient is alert and oriented 1. Cranial nerves II through XII are grossly intact. Motor and sensory are also intact. No slurred speech. Symmetrical smile. MUSCULOSKELETAL: Both legs are weak but they're weak equally. Patient does have edema to both legs. LYMPHATICS: No significant lymphadenopathy is noted PSYCHIATRIC: Unable to assess secondary to altered mental status Limitations: altered mental status Course Vital Signs 01/11/21 01/11/21 01/11/21 13:52 14:58 15:00 Temperature 97.9 F Pulse Rate 107 H 99 103 H Respiratory 20 16 16 Rate Blood Pressure 131/98 110/82 119/84 O2 Sat by Pulse 95 95 95 Oximetry Medical Decision Making - Medical Decision Making EKG shows atrial flutter with a variable AV block at 112 bpm QRS is 86 QT inte rval 338 QTC is 461. Patient's EKG shows no ST segment elevation or depression. CT of the head shows no acute abnormality. Chest x-ray shows a similar area of infiltrate from previous x-rays patient has no symptoms of pneumonia so at this time he will not be treated for pneumonia. I spoke with Dr. Mckinney she agreed to admit the patient admitted the patient I wrote admitting orders. - Lab Data Result diagrams: 01/11/21 14:32 01/11/21 14:32 Lab Results 01/11/21 01/11/21 01/11/21 Range/Units 14:30 14:32 14:32 WBC 3.2 L (3.8-10.6) k/uL RBC 4.34 (4.30-5.90) m/uL Hgb 12.4 L (13.0-17.5) gm/dL Hct 39.1 (39.0-53.0) % MCV 90.0 (80.0-100.0) fL MCH 28.7 (25.0-35.0) pg MCHC 31.9 (31.0-37.0) g/dL RDW 22.1 H (11.5-15.5) % Plt Count 109 L (150-450) k/uL MPV 8.9 Neutrophils % 48 % Lymphocytes % 24 % Monocytes % 9 % Eosinophils % 15 % Basophils % 1 % Neutrophils # 1.5 (1.3-7.7) k/uL Lymphocytes # 0.8 L (1.0-4.8) k/uL Monocytes # 0.3 (0-1.0) k/uL Eosinophils # 0.5 (0-0.7) k/uL Basophils # 0.0 (0-0.2) k/uL Hypochromasia Slight Poikilocytosis Slight Anisocytosis Moderate Microcytosis Slight Macrocytosis Slight PT 13.8 H (9.0-12.0) sec INR 1.4 H (<1.2) APTT 40.9 H (22.0-30.0) sec Sodium (137-145) mmol/L Potassium (3.5-5.1) mmol/L Chloride (98-107) mmol/L Carbon Dioxide (22-30) mmol/L Anion Gap mmol/L BUN (9-20) mg/dL Creatinine (0.66-1.25) mg/dL Est GFR (CKD-EPI)AfAm (>60 ml/min/1.73 sqM) Est GFR (CKD-EPI)NonAf (>60 ml/min/1.73 sqM) Glucose (74-99) mg/dL POC Glucose (mg/dL) 66 L (75-99) mg/dL POC Glu [employer] ID Дмитрий Mezalan Plasma Lactic Acid Isael (0.7-2.0) mmol/L Calcium (8.4-10.2) mg/dL Total Bilirubin (0.2-1.3) mg/dL AST (17-59) U/L ALT (4-49) U/L Alkaline Phosphatase (38-126) U/L Troponin I (0.000-0.034) ng/mL NT-Pro-B Natriuret Pep pg/mL Total Protein (6.3-8.2) g/dL Albumin (3.5-5.0) g/dL Urine Color Urine Appearance (Clear) Urine pH (5.0-8.0) Ur Specific [place] (1.001-1.035) Urine Protein (Negative) Urine Glucose (UA) (Negative) Urine Ketones (Negative) Urine Blood (Negative) Urine Nitrite (Negative) Urine Bilirubin (Negative) Urine Urobilinogen (<2.0) mg/dL Ur Leukocyte Esterase (Negative) Urine RBC (0-5) /hpf Urine WBC (0-5) /hpf Amorphous Sediment (None) /hpf Urine Bacteria (None) /hpf Urine Mucus (None) /hpf Urine Opiates Screen (NotDetected) Ur Oxycodone Screen (NotDetected) Urine Methadone Screen (NotDetected) Ur Propoxyphene Screen (NotDetected) Ur Barbiturates Screen (NotDetected) U Tricyclic Antidepress (NotDetected) Ur Phencyclidine Scrn (NotDetected) Ur Amphetamines Screen (NotDetected) U Methamphetamines Scrn (NotDetected) U Benzodiazepines Scrn (NotDetected) Urine Cocaine Screen (NotDetected) U Marijuana (THC) Screen (NotDetected) 01/11/21 01/11/21 01/11/21 Range/Units 14:32 14:32 14:32 WBC (3.8-10.6) k/uL RBC (4.30-5.90) m/uL Hgb (13.0-17.5) gm/dL Hct (39.0-53.0) % MCV (80.0-100.0) fL MCH (25.0-35.0) pg MCHC (31.0-37.0) g/dL RDW (11.5-15.5) % Plt Count (150-450) k/uL MPV Neutrophils % % Lymphocytes % % Monocytes % % Eosinophils % % Basophils % % Neutrophils # (1.3-7.7) k/uL Lymphocytes # (1.0-4.8) k/uL Monocytes # (0-1.0) k/uL Eosinophils # (0-0.7) k/uL Basophils # (0-0.2) k/uL Hypochromasia Poikilocytosis Anisocytosis Microcytosis Macrocytosis PT (9.0-12.0) sec INR (<1.2) APTT (22.0-30.0) sec Sodium 147 H (137-145) mmol/L Potassium 4.2 (3.5-5.1) mmol/L Chloride 113 H (98-107) mmol/L Carbon Dioxide 17 L (22-30) mmol/L Anion Gap 17 mmol/L BUN 57 H (9-20) mg/dL Creatinine 3.79 H (0.66-1.25) mg/dL Est GFR (CKD-EPI)AfAm 20 (>60 ml/min/1.73 sqM) Est GFR (CKD-EPI)NonAf 18 (>60 ml/min/1.73 sqM) Glucose 75 (74-99) mg/dL POC Glucose (mg/dL) (75-99) mg/dL POC Glu [employer] ID Plasma Lactic Acid Isael (0.7-2.0) mmol/L Calcium 10.1 (8.4-10.2) mg/dL Total Bilirubin 2.2 H (0.2-1.3) mg/dL AST 27 (17-59) U/L ALT 11 (4-49) U/L Alkaline Phosphatase 92 (38-126) U/L Troponin I <0.012 (0.000-0.034) ng/mL NT-Pro-B Natriuret Pep pg/mL Total Protein 7.1 (6.3-8.2) g/dL Albumin 3.6 (3.5-5.0) g/dL Urine Color Yellow Urine Appearance Clear (Clear) Urine pH 5.5 (5.0-8.0) Ur Specific [place] 1.018 (1.001-1.035) Urine Protein 1+ H (Negative) Urine Glucose (UA) Negative (Negative) Urine Ketones Trace H (Negative) Urine Blood Large H (Negative) Urine Nitrite Negative (Negative) Urine Bilirubin Negative (Negative) Urine Urobilinogen <2.0 (<2.0) mg/dL Ur Leukocyte Esterase Negative (Negative) Urine RBC 26 H (0-5) /hpf Urine WBC 1 (0-5) /hpf Amorphous Sediment Rare H (None) /hpf Urine Bacteria Rare H (None) /hpf Urine Mucus Rare H (None) /hpf Urine Opiates Screen Not Detected (NotDetected) Ur Oxycodone Screen Not Detected (NotDetected) Urine Methadone Screen Not Detected (NotDetected) Ur Propoxyphene Screen Not Detected (NotDetected) Ur Barbiturates Screen Not Detected (NotDetected) U Tricyclic Antidepress Not Detected (NotDetected) Ur Phencyclidine Scrn Not Detected (NotDetected) Ur Amphetamines Screen Not Detected (NotDetected) U Methamphetamines Scrn Not Detected (NotDetected) U Benzodiazepines Scrn Not Detected (NotDetected) Urine Cocaine Screen Not Detected (NotDetected) U Marijuana (THC) Screen Not Detected (NotDetected) 01/11/21 01/11/21 01/11/21 Range/Units 14:32 15:09 15:28 WBC (3.8-10.6) k/uL RBC (4.30-5.90) m/uL Hgb (13.0-17.5) gm/dL Hct (39.0-53.0) % MCV (80.0-100.0) fL MCH (25.0-35.0) pg MCHC (31.0-37.0) g/dL RDW (11.5-15.5) % Plt Count (150-450) k/uL MPV Neutrophils % % Lymphocytes % % Monocytes % % Eosinophils % % Basophils % % Neutrophils # (1.3-7.7) k/uL Lymphocytes # (1.0-4.8) k/uL Monocytes # (0-1.0) k/uL Eosinophils # (0-0.7) k/uL Basophils # (0-0.2) k/uL Hypochromasia Poikilocytosis Anisocytosis Microcytosis Macrocytosis PT (9.0-12.0) sec INR (<1.2) APTT (22.0-30.0) sec Sodium (137-145) mmol/L Potassium (3.5-5.1) mmol/L Chloride (98-107) mmol/L Carbon Dioxide (22-30) mmol/L Anion Gap mmol/L BUN (9-20) mg/dL Creatinine (0.66-1.25) mg/dL Est GFR (CKD-EPI)AfAm (>60 ml/min/1.73 sqM) Est GFR (CKD-EPI)NonAf (>60 ml/min/1.73 sqM) Glucose (74-99) mg/dL POC Glucose (mg/dL) 85 (75-99) mg/dL POC Glu [employer] ID Haily Arrieta Plasma Lactic Acid Isael 1.8 (0.7-2.0) mmol/L Calcium (8.4-10.2) mg/dL Total Bilirubin (0.2-1.3) mg/dL AST (17-59) U/L ALT (4-49) U/L Alkaline Phosphatase (38-126) U/L Troponin I (0.000-0.034) ng/mL NT-Pro-B Natriuret Pep 11827 pg/mL Total Protein (6.3-8.2) g/dL Albumin (3.5-5.0) g/dL Urine Color Urine Appearance (Clear) Urine pH (5.0-8.0) Ur Specific [place] (1.001-1.035) Urine Protein (Negative) Urine Glucose (UA) (Negative) Urine Ketones (Negative) Urine Blood (Negative) Urine Nitrite (Negative) Urine Bilirubin (Negative) Urine Urobilinogen (<2.0) mg/dL Ur Leukocyte Esterase (Negative) Urine RBC (0-5) /hpf Urine WBC (0-5) /hpf Amorphous Sediment (None) /hpf Urine Bacteria (None) /hpf Urine Mucus (None) /hpf Urine Opiates Screen (NotDetected) Ur Oxycodone Screen (NotDetected) Urine Methadone Screen (NotDetected) Ur Propoxyphene Screen (NotDetected) Ur Barbiturates Screen (NotDetected) U Tricyclic Antidepress (NotDetected) Ur Phencyclidine Scrn (NotDetected) Ur Amphetamines Screen (NotDetected) U Methamphetamines Scrn (NotDetected) U Benzodiazepines Scrn (NotDetected) Urine Cocaine Screen (NotDetected) U Marijuana (THC) Screen (NotDetected) Disposition Clinical Impression: Altered mental status, Hypoglycemia Disposition: ADMITTED IP TO THIS HOSP Referrals: Eleazar Bhatt MD [Primary Care Provider] - 1-2 days Time of Disposition: 16:13
[2021-01-11 14:32] LABS: Glucose,Whole Blood 66 mg/dL (75-99)
[2021-01-11] MEDS ORDERED: DEXTROSE 50% SYRINGE 50 ML IVP STA (14:35)
[2021-01-11 14:42] LABS: Anisocytosis Moderate; Basophils % (A) 1 %; Eosinophils # (A) 0.5 k/uL (0-0.7); Eosinophils % (A) 15 %; HCT 39.1 % (39.0-53.0); HGB 12.4 gm/dL (13.0-17.5); Hypochromasia Slight; Lymphocytes # (A) 0.8 k/uL (1.0-4.8); Lymphocytes % (A) 24 %; MCH 28.7 pg (25.0-35.0); MCHC 31.9 g/dL (31.0-37.0); Macrocytosis Slight; Mean Platelet Volume 8.9; Microcytosis Slight; Monocytes # (A) 0.3 k/uL (0-1.0); Monocytes % (A) 9 %; Neutrophils # (A) 1.5 k/uL (1.3-7.7); Neutrophils % (A) 48 %; Platelet Count 109 k/uL (150-450); Poikilocytosis Slight; RBC 4.34 m/uL (4.30-5.90); RDW 22.1 % (11.5-15.5); WBC 3.2 k/uL (3.8-10.6)
[2021-01-11 14:51] LABS: INR 1.4 (<1.2); Partial Thromboplastin Time 40.9 sec (22.0-30.0); Prothrombin Time 13.8 sec (9.0-12.0)
[2021-01-11 14:52] LABS: Amorphous Sediment,Urine Rare /hpf; Appearance,Urine Clear (Clear); Bacteria,Urine Rare /hpf; Bilirubin,Urine Negative (Negative); Blood,Urine Large (Negative); Color,Urine Yellow; Glucose,Urine (UA) Negative (Negative); Ketones,Urine Trace (Negative); Leukocyte Esterase,Urine Negative (Negative); Mucus,Urine Rare /hpf; Nitrite,Urine Negative (Negative); PH, Urine 5.5 (5.0-8.0); Protein,Urine 1+ (Negative); RBC,Urine 26 /hpf (0-5); Specific Gravity,Urine 1.018 (1.001-1.035); Urobilinogen,Urine <2.0 mg/dL (<2.0); WBC,Urine 1 /hpf (0-5)
[2021-01-11 14:55] LABS: Amphetamine Screen,Urine Not Detected (NotDetected); Barbiturate Screen,Urine Not Detected (NotDetected); Benzodiazepines Screen,Urine Not Detected (NotDetected); Cocaine Screen,Urine Not Detected (NotDetected); Methadone Screen, Urine Not Detected (NotDetected); Opiate Screen,Urine Not Detected (NotDetected); Oxycodone Screen, Urine Not Detected (NotDetected); Phencyclidine Screen,Urine Not Detected (NotDetected); Tricyclic Antidepressant,Urine Not Detected (NotDetected); Urn Cannabinoid Scrn Not Detected (NotDetected)
--- NOTE | 2021-01-11 15:01 | CT ---
EXAMINATION TYPE: CT brain wo con DATE OF EXAM: 01/11/2021 COMPARISON: 01/25/2016 HISTORY: Altered mental status. CT DLP: 1114.[address] of the brain was performed. The ventricles, basal cisterns and sulci overlying the cerebral convexities demonstrate mild enlargem ent of the patient's age group. There is no evidence for intracranial hemorrhage or sulcal effacement . No mass effects are seen. Osseous calvarium is intact. If symptoms persist consider MRI as clinically warranted. IMPRESSION: 1. The ventricles, basal cisterns and sulci overlying the cerebral convexities demonstrate mild enla rgement of the patient's age group.
[2021-01-11 15:09] LABS: Albumin 3.6 g/dL (3.5-5.0); Calcium 10.1 mg/dL (8.4-10.2); Potassium 4.2 mmol/L (3.5-5.1); Total Bilirubin 2.2 mg/dL (0.2-1.3); Total Protein 7.1 g/dL (6.3-8.2)
--- NOTE | 2021-01-11 15:12 | XR ---
EXAMINATION TYPE: XR chest 2V DATE OF EXAM: 01/11/2021 COMPARISON: 10/25/2020 HISTORY: Chest pain TECHNIQUE: Frontal and lateral views of the chest are obtained. FINDINGS: Right lower lobe infiltrate. Correlate for pneumonia. Progress studies are advised. No evidence for pneumothorax. No pleural effusion. The cardiac silhouette size is enlarged. The osseous structures are grossly intact. IMPRESSION: 1. Right lower lobe infiltrate. Correlate for pneumonia. Progress studies are advised.
[2021-01-11 15:30] LABS: Glucose,Whole Blood 85 mg/dL (75-99)
[2021-01-11] MEDS ORDERED: NALOXONE 0.4 MG/ML 1 ML VIAL IV PRN (17:33)
[2021-01-11] MEDS ORDERED: ACETAMINOPHEN TAB 325 MG TAB PO PRN (17:47)
[2021-01-11] MEDS ORDERED: LEVOFLOXACIN 750MG-D5W PMX 750 MG in DEXTROSE/WATER 1 150ML.BAG IVPB SCH (18:00)
[2021-01-11] MEDS: METOPROLOL TARTRATE 12.5 MG TAB PO SCH (18:27)
--- NOTE | 2021-01-11 18:41 | P.HPIM ---
History of Present Illness H&P Date: 01/11/21 Chief Complaint: AMS 50 year old man with history of COPD, HFpEF, parox AFib, CKD IV, HLD, Depression, Hypothyroidism presented from [facility] with worsening AMS. Patient is a poor historian and history is obtained from chart review, ER provider sign out, and discussion with Niece over the phone. From my understanding, patient has had significant clinical decline in terms of mentation and physical debility since the passing of his mother several months ago. Over the last several days, care staff at the [facility] became concerned due to altered mental status. Patient was sent in to the hospital for further work up for this reason. Further information is limited. ROS is limited due to patients mental status. Clinically, he is afebrile, , 119/84, HR 105-120 and irregular in AFib, 95% on 4L NC (baseline 2L). CBC shows pancytopenia with WBC 3.2, Hgb 12.4, PLT 109. Chemistries show Na of 147, AGAP of 17, CO2 17, BUN 57, Cr 3.8 (baseline 2.0). TBili is 2.2, otherwise LFTs are unremarkable. BNP is elevated to 26,500. Trop is negative. UA shows large blood and 26 RBCs, rare bacteria, 1 WBC. UTox negative. CXR concerning for RLL pneumonia. EKG AFlutter with variable block. CTH shows mild ventricular enlargement out of proportion to patient's age group. Review of Systems See HPI Past Medical History Past Medical History: Atrial Fibrillation, Asthma, Coronary Artery Disease (CAD), Chest Pain / Angina, Heart Failure, COPD, Diabetes Mellitus, Deep Vein Thrombosis (DVT), Hyperlipidemia, Hypertension, Myocardial Infarction ([place]), Renal Disease, Sleep Apnea/CPAP/BIPAP, Thyroid Disorder, Vascular Disorder Additional Past Medical History / Comment(s): CHF, tracheobronchitis, CKD stage III, kidney stones, DVT L leg in 2004, KAMRYN without device use, colon abscess with bowel resection, multiple abdominal surgeries for a hiatal hernia that was complicated by prolonged hospitalization and prolonged ventilator dependent respiratory failure requiring a tracheostomy tube insertion, pvd-lower legs discolored/edematous, diverticular disease, chronic iron deficiency anemia, vertigo at times, Last Myocardial Infarction Date:: History of Any Multi-Drug Resistant Organisms: MRSA Date of last positivie culture/infection: 02/01/15 MDRO Source:: Abdomen Past Surgical History: Bowel Resection, Heart Catheterization With Stent, Hernia Repair Additional Past Surgical History / Comment(s): Colonoscopies, heart stents x 4, bowel resection with colostomy and colostomy reversal (removed a foot of pts colon)-2003, hernia repair with skin grafts and 2 fistula repairs (hospitalized for 1 year @[facility])-2010 MRSA 2015 in wounds. Past Anesthesia/Blood Transfusion Reactions: No Reported Reaction Additional Past Anesthesia/Blood Transfusion Reaction / Comment(s): Pt has r eceived blood in past without reaction-2010 Date of Last Stent Placement:: 03/28/2015 Past Psychological History: Depression Smoking Status: Former smoker Past Alcohol Use History: None Reported Past Drug Use History: None Reported - Past Family History Mother Family Medical History: Osteoarthritis (OA), Pneumonia Additional Family Medical History / Comment(s): osteoporosis. arthroscopy alejo tano for knee Father Family Medical History: Liver Disease, Renal Disease Additional Family Medical History / Comment(s): triple heart bypass. liver transplant. aortic aneursym Medications and Allergies Home Medications Medication Instructions Recorded Confirmed Type Apixaban [Eliquis] 5 mg PO BID #60 tab 06/26/20 01/11/21 Rx buPROPion XL [Wellbutrin XL] 150 mg PO DAILY 07/26/20 01/11/21 History Ipratropium-Albuterol Nebulize 3 ml INHALATION RT-Q6H 09/07/20 01/11/21 History [Duoneb 0.5 mg-3 mg/3 ml Soln] Multivitamins, Thera [Multivitamin 1 tab PO HS 10/24/20 01/11/21 History (formulary)] Sertraline [Zoloft] 50 mg PO HS@199910/24/20 01/11/21 History Acetaminophen [Tylenol 8 Hour] 650 mg PO Q6H PRN 01/11/21 01/11/21 History Atorvastatin [Lipitor] 40 mg PO HS@199901/11/21 01/11/21 History Levothyroxine Sodium [Synthroid] 25 mcg PO HS@199901/11/21 01/11/21 History Metoprolol Tartrate [Lopressor] 12.5 mg PO BID@0700,1900 01/11/21 01/11/21 History Sennosides [Senokot] 17.2 mg PO BID 01/11/21 01/11/21 History Allergies Allergy/AdvReac Type Severity Reaction Status Date / Time adhesive Allergy "PLASTIC Verified 01/11/21 14:00 TAPE PEELS SKIN,PAPER TAPE IS OK" linezolid Allergy Unknown Verified 01/11/21 14:00 penicillin G Allergy Rash/Hives Verified 01/11/21 14:00 Cephalosporins AdvReac FEVER Verified 01/11/21 14:00 Physical Exam Osteopathic Statement: *. No significant issues noted on an osteopathic structural exam other than those noted in the History and Physical/Consult. Vitals: Vital Signs Temp Pulse Resp BP Pulse Ox 01/11/21 16:00 105 H 16 114/88 100 01/11/21 15:00 103 H 16 119/84 95 01/11/21 14:58 99 16 110/82 95 01/11/21 13:52 97.9 F 107 H 20 131/98 95 Intake and Output 01/11/21 01/11/21 01/11/21 06:59 14:59 22:59 Output Total 200 Balance -200 Output: Urine 200 Uretheral (Vu) 200 Other: Weight 136.078 kg Gen: awake, alert, A+O x 1 HEENT: normocephalic, atraumatic, good hearing acuity, moist mucous membranes Resp: diminished air exchange, diffuse wheezing, crackles in the right lower base. CVS: good distal perfusion x 4, irregular rhythm, tachycardiac GI: soft, NTTP, ND : no SPT, no CVAT, vu catheter not present MSK: + b/l pitting edema, no clubbing Neuro: non-focal, moving all extremities Results CBC & Chem 7: 01/11/21 14:32 01/11/21 14:32 Labs: Abnormal Lab Results - Last 24 Hours (Table) 01/11/21 01/11/21 01/11/21 Range/Units 14:30 14:32 14:32 WBC 3.2 L (3.8-10.6) k/uL Hgb 12.4 L (13.0-17.5) gm/dL RDW 22.1 H (11.5-15.5) % Plt Count 109 L (150-450) k/uL Lymphocytes # 0.8 L (1.0-4.8) k/uL PT 13.8 H (9.0-12.0) sec INR 1.4 H (<1.2) APTT 40.9 H (22.0-30.0) sec Sodium (137-145) mmol/L Chloride (98-107) mmol/L Carbon Dioxide (22-30) mmol/L BUN (9-20) mg/dL Creatinine (0.66-1.25) mg/dL POC Glucose (mg/dL) 66 L (75-99) mg/dL Total Bilirubin (0.2-1.3) mg/dL Urine Protein (Negative) Urine Ketones (Negative) Urine Blood (Negative) Urine RBC (0-5) /hpf Amorphous Sediment (None) /hpf Urine Bacteria (None) /hpf Urine Mucus (None) /hpf 01/11/21 01/11/21 Range/Units 14:32 14:32 WBC (3.8-10.6) k/uL Hgb (13.0-17.5) gm/dL RDW (11.5-15.5) % Plt Count (150-450) k/uL Lymphocytes # (1.0-4.8) k/uL PT (9.0-12.0) sec INR (<1.2) APTT (22.0-30.0) sec Sodium 147 H (137-145) mmol/L Chloride 113 H (98-107) mmol/L Carbon Dioxide 17 L (22-30) mmol/L BUN 57 H (9-20) mg/dL Creatinine 3.79 H (0.66-1.25) mg/dL POC Glucose (mg/dL) (75-99) mg/dL Total Bilirubin 2.2 H (0.2-1.3) mg/dL Urine Protein 1+ H (Negative) Urine Ketones Trace H (Negative) Urine Blood Large H (Negative) Urine RBC 26 H (0-5) /hpf Amorphous Sediment Rare H (None) /hpf Urine Bacteria Rare H (None) /hpf Urine Mucus Rare H (None) /hpf Assessment and Plan Assessment: Acute on chronic respiratory failure with hypoxia Toxic/metabolic encephalopathy Acute on chronic heart failure, with preserved ejection fraction Suspected pneumonia in the right lower lobe COPD exacerbation RAYSA superimposed on CKD stage IV Paroxysmal atrial fibrillation with rapid ventricular response Hyperlipidemia Depression Hypothyroidism Chronic abdominal wound Plan: -Admit patient to telemetry, inpatient -Oxygen when necessary -DuoNeb's q6h + when necessary -Levofloxacin -Follow up pro-calcitonin -Follow up blood culture -Lasix 60 mg IV twice a day -Pulmonary consult -Cardiology consult -Nephrology consult -Continue home metoprolol, lipitor -Continue home Eliquis -Continue home sertraline, Wellbutrin -Continue home levothyroxine -Wound care consult Pt is Full Code, in discussion with Christian regarding changing to DNR/DNI -Patient is hospice appropriate, and will address this in days to come DVT PPx covered with Dilip Gonzales is pending paperwork for DPOA Care Discussed with: Christian, ER Provider, Nurse
[2021-01-11] MEDS: IPRATROPIUM-ALBUTEROL 3 ML NEB INHALATION SCH (19:33)
[2021-01-11 20:03] LABS: Glucose,Whole Blood 74 mg/dL (75-99)
[2021-01-11] MEDS ORDERED: FUROSEMIDE 10 MG/ML 10 ML VIAL IV SCH (21:00)
[2021-01-11] MEDS: SENNOSIDES 8.6 MG TAB PO SCH (22:41)
[2021-01-11] MEDS: ATORVASTATIN 40 MG TAB PO SCH (22:41)
[2021-01-11] MEDS: APIXABAN 5 MG TAB PO SCH (22:42)
[2021-01-11] MEDS: SERTRALINE 50 MG TAB PO SCH (22:42)
[2021-01-11] MEDS: LEVOTHYROXINE 25 MCG TAB PO SCH (22:42)
[2021-01-11] MEDS: MULTIVITAMINS, THERA 1 EACH TAB PO SCH (22:42)
[2021-01-12 00:17] LABS: Glucose,Whole Blood 62 mg/dL (75-99)
[2021-01-12 00:33] LABS: Glucose,Whole Blood 63 mg/dL (75-99)
[2021-01-12 00:47] LABS: Glucose,Whole Blood 61 mg/dL (75-99)
[2021-01-12 01:03] LABS: Glucose,Whole Blood 74 mg/dL (75-99)
[2021-01-12] MEDS: IPRATROPIUM-ALBUTEROL 3 ML NEB INHALATION SCH ×4 (01:25→16:11)
[2021-01-12 06:04] LABS: Glucose,Whole Blood 87 mg/dL (75-99)
[2021-01-12] MEDS: METOPROLOL TARTRATE 12.5 MG TAB PO SCH ×3 (06:19→17:24)
[2021-01-12 07:51] LABS: Anisocytosis Moderate; Basophils # (A) 0.1 k/uL (0-0.2); Basophils % (A) 2 %; Eosinophils # (A) 0.4 k/uL (0-0.7); Eosinophils % (A) 14 %; HGB 12.5 gm/dL (13.0-17.5); Hypochromasia Moderate; Lymphocytes # (A) 0.6 k/uL (1.0-4.8); Lymphocytes % (A) 20 %; MCH 28.1 pg (25.0-35.0); MCHC 30.4 g/dL (31.0-37.0); MCV 92.2 fL (80.0-100.0); Macrocytosis Slight; Mean Platelet Volume 9.1; Monocytes # (A) 0.3 k/uL (0-1.0); Monocytes % (A) 9 %; Neutrophils # (A) 1.7 k/uL (1.3-7.7); Neutrophils % (A) 53 %; Platelet Count 110 k/uL (150-450); Poikilocytosis Slight; RBC 4.44 m/uL (4.30-5.90); RDW 22.2 % (11.5-15.5); WBC 3.1 k/uL (3.8-10.6)
[2021-01-12 08:19] LABS: Magnesium 2.1 mg/dL (1.6-2.3); Potassium 3.9 mmol/L (3.5-5.1)
[2021-01-12] MEDS: buPROPion XL 150 MG TAB.ER.24H PO SCH (09:53)
[2021-01-12] MEDS: APIXABAN 5 MG TAB PO SCH ×2 (09:53→20:38)
[2021-01-12] MEDS: SENNOSIDES 8.6 MG TAB PO SCH ×2 (09:54→20:38)
--- NOTE | 2021-01-12 10:32 | P.PN ---
Subjective Progress Note Date: 01/12/21 Mildly improved volume status, mildly improved mentation. Mildly improved Cr. Objective - Vital Signs Vital signs: Vital Signs Temp 97.6 F 01/12/21 03:51 Pulse 124 H 01/12/21 07:29 Resp 20 01/12/21 03:51 BP 125/85 01/12/21 03:51 Pulse Ox 94 L 01/12/21 03:51 Intake & Output 01/11/21 01/12/21 01/12/21 18:59 06:59 18:59 Intake Total 720 118 Output Total 200 300 Balance -200 420 118 Weight 136.078 kg 126 kg Intake: Oral 720 118 Output: Urine 200 300 Uretheral (Vu) 200 Other: Voiding Method Diaper - Exam Gen: awake, alert, A+O x 1 HEENT: normocephalic, atraumatic, good hearing acuity, moist mucous membranes Resp: diminished air exchange, diffuse wheezing, crackles in the right lower base. CVS: good distal perfusion x 4, irregular rhythm, tachycardiac GI: soft, NTTP, ND : no SPT, no CVAT, vu catheter not present MSK: + b/l pitting edema, no clubbing Neuro: non-focal, moving all extremities - Labs CBC & Chem 7: 01/12/21 06:53 01/12/21 06:53 Labs: Abnormal Lab Results - Last 24 Hours (Table) 01/11/21 01/11/21 01/11/21 Range/Units 14:30 14:32 14:32 WBC 3.2 L (3.8-10.6) k/uL Hgb 12.4 L (13.0-17.5) gm/dL MCHC (31.0-37.0) g/dL RDW 22.1 H (11.5-15.5) % Plt Count 109 L (150-450) k/uL Lymphocytes # 0.8 L (1.0-4.8) k/uL PT 13.8 H (9.0-12.0) sec INR 1.4 H (<1.2) APTT 40.9 H (22.0-30.0) sec Sodium (137-145) mmol/L Chloride (98-107) mmol/L Carbon Dioxide (22-30) mmol/L BUN (9-20) mg/dL Creatinine (0.66-1.25) mg/dL POC Glucose (mg/dL) 66 L (75-99) mg/dL Total Bilirubin (0.2-1.3) mg/dL Procalcitonin (0.02-0.09) ng/mL Urine Protein (Negative) Urine Ketones (Negative) Urine Blood (Negative) Urine RBC (0-5) /hpf Amorphous Sediment (None) /hpf Urine Bacteria (None) /hpf Urine Mucus (None) /hpf 01/11/21 01/11/21 01/11/21 Range/Units 14:32 14:32 14:32 WBC (3.8-10.6) k/uL Hgb (13.0-17.5) gm/dL MCHC (31.0-37.0) g/dL RDW (11.5-15.5) % Plt Count (150-450) k/uL Lymphocytes # (1.0-4.8) k/uL PT (9.0-12.0) sec INR (<1.2) APTT (22.0-30.0) sec Sodium 147 H (137-145) mmol/L Chloride 113 H (98-107) mmol/L Carbon Dioxide 17 L (22-30) mmol/L BUN 57 H (9-20) mg/dL Creatinine 3.79 H (0.66-1.25) mg/dL POC Glucose (mg/dL) (75-99) mg/dL Total Bilirubin 2.2 H (0.2-1.3) mg/dL Procalcitonin 0.38 H (0.02-0.09) ng/mL Urine Protein 1+ H (Negative) Urine Ketones Trace H (Negative) Urine Blood Large H (Negative) Urine RBC 26 H (0-5) /hpf Amorphous Sediment Rare H (None) /hpf Urine Bacteria Rare H (None) /hpf Urine Mucus Rare H (None) /hpf 01/11/21 01/12/21 01/12/21 Range/Units 19:58 00:15 00:31 WBC (3.8-10.6) k/uL Hgb (13.0-17.5) gm/dL MCHC (31.0-37.0) g/dL RDW (11.5-15.5) % Plt Count (150-450) k/uL Lymphocytes # (1.0-4.8) k/uL PT (9.0-12.0) sec INR (<1.2) APTT (22.0-30.0) sec Sodium (137-145) mmol/L Chloride (98-107) mmol/L Carbon Dioxide (22-30) mmol/L BUN (9-20) mg/dL Creatinine (0.66-1.25) mg/dL POC Glucose (mg/dL) 74 L 62 L 63 L (75-99) mg/dL Total Bilirubin (0.2-1.3) mg/dL Procalcitonin (0.02-0.09) ng/mL Urine Protein (Negative) Urine Ketones (Negative) Urine Blood (Negative) Urine RBC (0-5) /hpf Amorphous Sediment (None) /hpf Urine Bacteria (None) /hpf Urine Mucus (None) /hpf 01/12/21 01/12/21 01/12/21 Range/Units 00:45 01:01 06:53 WBC 3.1 L (3.8-10.6) k/uL Hgb 12.5 L (13.0-17.5) gm/dL MCHC 30.4 L (31.0-37.0) g/dL RDW 22.2 H (11.5-15.5) % Plt Count 110 L (150-450) k/uL Lymphocytes # 0.6 L (1.0-4.8) k/uL PT (9.0-12.0) sec INR (<1.2) APTT (22.0-30.0) sec Sodium (137-145) mmol/L Chloride (98-107) mmol/L Carbon Dioxide (22-30) mmol/L BUN (9-20) mg/dL Creatinine (0.66-1.25) mg/dL POC Glucose (mg/dL) 61 L 74 L (75-99) mg/dL Total Bilirubin (0.2-1.3) mg/dL Procalcitonin (0.02-0.09) ng/mL Urine Protein (Negative) Urine Ketones (Negative) Urine Blood (Negative) Urine RBC (0-5) /hpf Amorphous Sediment (None) /hpf Urine Bacteria (None) /hpf Urine Mucus (None) /hpf 01/12/21 Range/Units 06:53 WBC (3.8-10.6) k/uL Hgb (13.0-17.5) gm/dL MCHC (31.0-37.0) g/dL RDW (11.5-15.5) % Plt Count (150-450) k/uL Lymphocytes # (1.0-4.8) k/uL PT (9.0-12.0) sec INR (<1.2) APTT (22.0-30.0) sec Sodium (137-145) mmol/L Chloride 113 H (98-107) mmol/L Carbon Dioxide 19 L (22-30) mmol/L BUN 57 H (9-20) mg/dL Creatinine 3.74 H (0.66-1.25) mg/dL POC Glucose (mg/dL) (75-99) mg/dL Total Bilirubin (0.2-1.3) mg/dL Procalcitonin (0.02-0.09) ng/mL Urine Protein (Negative) Urine Ketones (Negative) Urine Blood (Negative) Urine RBC (0-5) /hpf Amorphous Sediment (None) /hpf Urine Bacteria (None) /hpf Urine Mucus (None) /hpf Assessment and Plan Assessment: Acute on chronic respiratory failure with hypoxia Toxic/metabolic encephalopathy Chronic heart failure, with preserved ejection fraction Suspected pneumonia in the right lower lobe COPD exacerbation RAYSA superimposed on CKD stage IV Paroxysmal atrial fibrillation with rapid ventricular response Hyperlipidemia Depression Hypothyroidism Chronic abdominal wound Plan: -Admit patient to telemetry, inpatient -Oxygen when necessary -DuoNeb's q6h + when necessary -Levofloxacin -Follow up pro-calcitonin = 0.38 -Follow up blood culture = NGTD -Lasix 60 mg IV twice a day d/c'd 01/12 by cardiology -Pulmonary consult -Cardiology consult -Nephrology consult -Neurology consult regarding CTH findings in context of gradually declining mental baseline -Continue home metoprolol, lipitor -Continue home Eliquis -Continue home sertraline, Wellbutrin -Continue home levothyroxine -Wound care consult Pt is Full Code, in discussion with Nephew regarding changing to DNR/DNI DVT PPx covered with Dilip Randew is pending paperwork for DPOA Care Discussed with: Nephew, ER Provider, Nurse
--- NOTE | 2021-01-12 10:46 | P.CONS ---
History of Present Illness - Reason for Consult Consult date: 01/12/21 wound care - History of Present Illness This is a 50-year-old patient known to the wound care center who was recently seen on Saturday for his wound care appointment. Original ulceration started after hernia surgery. He has been dealing with the ulcerations for multiple years. They will heal and reopen. At this time the ulcerations are showing improvement. Original cause of wound was Not Known. The wound is currently classified as a Full Thickness Without Exposed Support Structures wound with etiology of Dehisced Wound and is located on the Abdomen - midline. The wound measures 10.4cm length x 4cm width x 0.1cm depth; 32.673cm^2 area and 3.267cm^3 volume. The wound is limited to skin breakdown. There is no tunneling or undermining noted. There is a medium amount of serosanguineous drainage noted. The wound margin is flat and intact. There is large (67-100%) red, pink granulation within the wound bed. There is a small (1-33%) amount of necrotic tissue within the wound bed including Adherent Slough. The periwound skin appearance had no abnormalities noted for color. The periwound skin appearance exhibited: Scarring, Dry/Scaly. The periwound skin appearance did not exhibit: Callus, Crepitus, Excoriation, Induration, Rash, Maceration. Periwound temperature was noted as No Abnormality. Review Of Systems: Constitutional: No fever, no chills, no night sweats. No weight change. No weakness, fatigue or lethargy. No daytime sleepiness. Integumentary:reports wounds, no lesions. No rash or pruritus. No unusual bruising. No change in hair or nails. Physical exam: General Appearance: Alert, cooperative, no distress, appears stated age. Skin: See HPI all other Skin color, texture, tugor normal, no rashes or lesions. Neurologic: Alert oriented x3 Assessment: 1. 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 Type 2 diabetes mellitus with other skin ulcer 3. Disruption of wound Plan: 1.Cleanse with normal saline. Apply absorptive silver, saline gauze, dry gauze and foamTape to secure. May use silicon dressing to cover 2. Patient returned to the wound care center next 01/17/2021 at 2:30 Thank you for the consultation any questions please contact the wound care center DNP note has been reviewed and discussed with Dr. Jefferson and the impression a nd plan of care has been directed as dictated. Past Medical History Past Medical History: Atrial Fibrillation, Asthma, Coronary Artery Disease (CAD), Chest Pain / Angina, Heart Failure, COPD, Diabetes Mellitus, Deep Vein Thrombosis (DVT), Hyperlipidemia, Hypertension, Myocardial Infarction (ID), Renal Disease, Sleep Apnea/CPAP/BIPAP, Thyroid Disorder, Vascular Disorder Additional Past Medical History / Comment(s): CHF, tracheobronchitis, CKD stage III, kidney stones, DVT L leg in 2004, KAMRYN without device use, colon abscess with bowel resection, multiple abdominal surgeries for a hiatal hernia that was complicated by prolonged hospitalization and prolonged ventilator dependent respiratory failure requiring a tracheostomy tube insertion, pvd-lower legs discolored/edematous, diverticular disease, chronic iron deficiency anemia, vertigo at times, Last Myocardial Infarction Date:: History of Any Multi-Drug Resistant Organisms: MRSA Year Discovered:: 02/01/15 MDRO Source:: Abdomen Past Surgical History: Bowel Resection, Heart Catheterization With Stent, Hernia Repair Additional Past Surgical History / Comment(s): Colonoscopies, heart stents x 4, bowel resection with colostomy and colostomy reversal (removed a foot of pts colon)-2003, hernia repair with skin grafts and 2 fistula repairs (hospitalized for 1 year @[facility] [place] MRSA 2015 in wounds. Past Anesthesia/Blood Transfusion Reactions: No Reported Reaction Additional Past Anesthesia/Blood Transfusion Reaction / Comm: Pt has received blood in past without reaction-2010 Date of Last Stent Placement:: 03/28/2015 Past Psychological History: Depression Additional Psychological History / Comment(s): PT IS DISABLED. PT LIVES WITH 2 PET CATS AND 1 DOG. HOME HAS A RAMP. Uses an electric scooter... Since October 2020 Pt has been residing at [facility]. Smoking Status: Unknown if ever smoked Past Alcohol Use History: None Reported Additional Past Alcohol Use History / Comment(s): smokes .25 pack a day. Past Drug Use History: None Reported - Past Family History Mother Family Medical History: Osteoarthritis (OA), Pneumonia Additional Family Medical History / Comment(s): osteoporosis. arthroscopy surgery for knee Father Family Medical History: Liver Disease, Renal Disease Additional Family Medical History / Comment(s): triple heart bypass. liver transplant. aortic aneursym Medications and Allergies Home Medications Medication Instructions Recorded Confirmed Type Apixaban [Eliquis] 5 mg PO BID #60 tab 06/26/20 01/11/21 Rx buPROPion XL [Wellbutrin XL] 150 mg PO DAILY 07/26/20 01/11/21 History Ipratropium-Albuterol Nebulize 3 ml INHALATION RT-Q6H 09/07/20 01/11/21 History [Duoneb 0.5 mg-3 mg/3 ml Soln] Multivitamins, Thera [Multivitamin 1 tab PO HS 10/24/20 01/11/21 History (formulary)] Sertraline [Zoloft] 50 mg PO HS@199910/24/20 01/11/21 History Acetaminophen [Tylenol 8 Hour] 650 mg PO Q6H PRN 01/11/21 01/11/21 History Atorvastatin [Lipitor] 40 mg PO HS@199901/11/21 01/11/21 History Levothyroxine Sodium [Synthroid] 25 mcg PO HS@199901/11/21 01/11/21 History Metoprolol Tartrate [Lopressor] 12.5 mg PO BID@0700,1900 01/11/21 01/11/21 Hist ory Sennosides [Senokot] 17.2 mg PO BID 01/11/21 01/11/21 History Allergies Allergy/AdvReac Type Severity Reaction Status Date / Time adhesive Allergy "PLASTIC Verified 01/11/21 14:00 TAPE PEELS SKIN,PAPER TAPE IS OK" linezolid Allergy Unknown Verified 01/11/21 14:00 penicillin G Allergy Rash/Hives Verified 01/11/21 14:00 Cephalosporins AdvReac FEVER Verified 01/11/21 14:00 Physical Exam Vitals: Vital Signs Temp Pulse Pulse Resp BP BP Pulse Ox 01/12/21 07:29 124 H 01/12/21 07:21 118 H 01/12/21 03:51 97.6 F 80 20 125/85 94 L 01/12/21 00:00 97.6 F 100 20 111/85 94 L 01/11/21 20:00 100 20 01/11/21 19:41 123 H 14 01/11/21 19:36 91 L 01/11/21 19:35 121 H 14 01/11/21 18:34 97.9 F 105 H 16 114/88 100 01/11/21 18:00 105 H 16 114/88 100 01/11/21 17:00 99 16 100 01/11/21 16:00 105 H 16 100 01/11/21 15:00 103 H 16 119/84 95 01/11/21 14:58 99 16 110/82 95 01/11/21 13:52 97.9 F 107 H 20 131/98 95 Intake and Output 01/11/21 01/12/21 01/12/21 22:59 06:59 14:59 Intake Total 720 118 Output Total 200 300 Balance -200 420 118 Intake: Oral 720 118 Output: Urine 200 300 Uretheral (Swain) 200 Other: Voiding Method Diaper Weight 126 kg Results CBC & Chem 7: 01/12/21 06:53 01/12/21 06:53 Labs: Abnormal Lab Results - Last 24 Hours (Table) 01/11/21 01/11/21 01/11/21 Range/Units 14:30 14:32 14:32 WBC 3.2 L (3.8-10.6) k/uL Hgb 12.4 L (13.0-17.5) gm/dL MCHC (31.0-37.0) g/dL RDW 22.1 H (11.5-15.5) % Plt Count 109 L (150-450) k/uL Lymphocytes # 0.8 L (1.0-4.8) k/uL PT 13.8 H (9.0-12.0) sec INR 1.4 H (<1.2) APTT 40.9 H (22.0-30.0) sec Sodium (137-145) mmol/L Chloride (98-107) mmol/L Carbon Dioxide (22-30) mmol/L BUN (9-20) mg/dL Creatinine (0.66-1.25) mg/dL POC Glucose (mg/dL) 66 L (75-99) mg/dL Total Bilirubin (0.2-1.3) mg/dL Procalcitonin (0.02-0.09) ng/mL Urine Protein (Negative) Urine Ketones (Negative) Urine Blood (Negative) Urine RBC (0-5) /hpf Amorphous Sediment (None) /hpf Urine Bacteria (None) /hpf Urine Mucus (None) /hpf 01/11/21 01/11/21 01/11/21 Range/Units 14:32 14:32 14:32 WBC (3.8-10.6) k/uL Hgb (13.0-17.5) gm/dL MCHC (31.0-37.0) g/dL RDW (11.5-15.5) % Plt Count (150-450) k/uL Lymphocytes # (1.0-4.8) k/uL PT (9.0-12.0) sec INR (<1.2) APTT (22.0-30.0) sec Sodium 147 H (137-145) mmol/L Chloride 113 H (98-107) mmol/L Carbon Dioxide 17 L (22-30) mmol/L BUN 57 H (9-20) mg/dL Creatinine 3.79 H (0.66-1.25) mg/dL POC Glucose (mg/dL) (75-99) mg/dL Total Bilirubin 2.2 H (0.2-1.3) mg/dL Procalcitonin 0.38 H (0.02-0.09) ng/mL Urine Protein 1+ H (Negative) Urine Ketones Trace H (Negative) Urine Blood Large H (Negative) Urine RBC 26 H (0-5) /hpf Amorphous Sediment Rare H (None) /hpf Urine Bacteria Rare H (None) /hpf Urine Mucus Rare H (None) /hpf 01/11/21 01/12/21 01/12/21 Range/Units 19:58 00:15 00:31 WBC (3.8-10.6) k/uL Hgb (13.0-17.5) gm/dL MCHC (31.0-37.0) g/dL RDW (11.5-15.5) % Plt Count (150-450) k/uL Lymphocytes # (1.0-4.8) k/uL PT (9.0-12.0) sec INR (<1.2) APTT (22.0-30.0) sec Sodium (137-145) mmol/L Chloride (98-107) mmol/L Carbon Dioxide (22-30) mmol/L BUN (9-20) mg/dL Creatinine (0.66-1.25) mg/dL POC Glucose (mg/dL) 74 L 62 L 63 L (75-99) mg/dL Total Bilirubin (0.2-1.3) mg/dL Procalcitonin (0.02-0.09) ng/mL Urine Protein (Negative) Urine Ketones (Negative) Urine Blood (Negative) Urine RBC (0-5) /hpf Amorphous Sediment (None) /hpf Urine Bacteria (None) /hpf Urine Mucus (None) /hpf 01/12/21 01/12/21 01/12/21 Range/Units 00:45 01:01 06:53 WBC 3.1 L (3.8-10.6) k/uL Hgb 12.5 L (13.0-17.5) gm/dL MCHC 30.4 L (31.0-37.0) g/dL RDW 22.2 H (11.5-15.5) % Plt Count 110 L (150-450) k/uL Lymphocytes # 0.6 L (1.0-4.8) k/uL PT (9.0-12.0) sec INR (<1.2) APTT (22.0-30.0) sec Sodium (137-145) mmol/L Chloride (98-107) mmol/L Carbon Dioxide (22-30) mmol/L BUN (9-20) mg/dL Creatinine (0.66-1.25) mg/dL POC Glucose (mg/dL) 61 L 74 L (75-99) mg/dL Total Bilirubin (0.2-1.3) mg/dL Procalcitonin (0.02-0.09) ng/mL Urine Protein (Negative) Urine Ketones (Negative) Urine Blood (Negative) Urine RBC (0-5) /hpf Amorphous Sediment (None) /hpf Urine Bacteria (None) /hpf Urine Mucus (None) /hpf 01/12/21 Range/Units 06:53 WBC (3.8-10.6) k/uL Hgb (13.0-17.5) gm/dL MCHC (31.0-37.0) g/dL RDW (11.5-15.5) % Plt Count (150-450) k/uL Lymphocytes # (1.0-4.8) k/uL PT (9.0-12.0) sec INR (<1.2) APTT (22.0-30.0) sec Sodium (137-145) mmol/L Chloride 113 H (98-107) mmol/L Carbon Dioxide 19 L (22-30) mmol/L BUN 57 H (9-20) mg/dL Creatinine 3.74 H (0.66-1.25) mg/dL POC Glucose (mg/dL) (75-99) mg/dL Total Bilirubin (0.2-1.3) mg/dL Procalcitonin (0.02-0.09) ng/mL Urine Protein (Negative) Urine Ketones (Negative) Urine Blood (Negative) Urine RBC (0-5) /hpf Amorphous Sediment (None) /hpf Urine Bacteria (None) /hpf Urine Mucus (None) /hpf Assessment and Plan (1) Diabetes with skin ulcer Current Visit: No Status: Acute Code(s): E11.622 - TYPE 2 DIABETES MELLITUS WITH OTHER SKIN ULCER; L98.499 - NON-PRESSURE CHRONIC ULCER OF SKIN OF SITES W UNSP SEVERITY SNOMED Code(s): 49322939 (2) Nonhealing skin ulcer with fat layer exposed Current Visit: No Status: Acute Code(s): L98.492 - NON-PRS CHRONIC ULCER OF SKIN OF SITES W FAT LAYER EXPOSED SNOMED Code(s): 14683180
--- NOTE | 2021-01-12 12:30 | P.CRDCN ---
History of Present Illness History of present illness: HISTORY OF PRESENTING ILLNESS This is a pleasant 50-year-old male past medical history significant for coronary artery disease status post PCI to the circumflex and LAD with a total occlusion of the RCA, hypertension, dyslipidemia, persistent atrial fibrillation, chronic kidney disease, morbid obesity and chronic nicotine dependence, multiple GI surgeries for hernia. He follows in the office with Dr. Wood. We have been asked to see in consultation for A. natalie with RVR and heart failure. Apparently patient has had increased stress due to the COVID-19 pandemic and his mother . He has slowly declined. He is currently at a snf. Patient is a poor historian, unable to indicate why he came to the emergency department. Apparently over the last several days, care staff at the snf became concerned due to altered mental status. And patient was sent to the emergency department. EKG revealed atrial fibrilation, heart rate 112. Laboratory data reviewed, WBC 3.1, hemoglobin 12.5, platelets 110, sodium 147, potassium 3.9, BUN 57, serum creatinine 3.7, magnesium 2.1, BNP 26,500 previously 35,000 DIAGNOSTICS EKG reveals atrial fibrillation with right axis deviation and heart rate of 112 Chest xray right lower lobe infiltrate. Correlate for pneumonia. Cardiac silhouette is enlarged. Brain CTventricles, vasal cisterns, basal cisterns and sulci overlying the cerebral convexities demonstrate mild enlargement Current cardiac medications include Eliquis 5 mg twice a day,Lopressor 12.5 mg twice a day, atorvastatin 40 mg nightly REVIEW OF SYSTEMS At the time of my exam: Patient states he has back pain. Unable to give good accurate review of systems due to mental status PHYSICAL EXAMINATION Blood pressure 105/70 heart rate 120 afebrile and maintaining oxygen saturation on nasal cannula. CONSTITUTIONAL: No apparent distress. Morbidly obese. HEENT: Head is normocephalic. Pupils are equal, round. Sclerae anicteric. Mucous membranes of the mouth are moist. No JVD. No carotid bruit. CHEST EXAMINATION: Lungs diminished bilaterally, no wheezes or rhonchi. No chest wall tenderness is noted on palpation or with deep breathing. HEART EXAMINATION: Irregular rate and rhythm. S1, S2 heard. Systolic ejection murmur at the base, no gallops or rub. ABDOMEN: Soft, Left sided wound covered with dressing. Positive bowel sounds. EXTREMITIES: 2+ peripheral pulses, Bilateral legs with venous insufficiency, bilateral ecchymosis. and no calf tenderness. NEUROLOGIC EXAMINATION: Patient is awake, alert, oriented to person only. ASSESSMENT Chronic persistent atrial fibrillation with rapid ventricular response Chronic diastolic heart failure Hypernatremia Altered Mental Status Acute on Chronic kidney disease Coronary artery disease status post PCI to the circumflex and LAD with a total occlusion of the RCA History of Hypertension Dyslipidemia Type 2 Diabetes mellitus COPD Morbid obesity Medication noncompliance Chronic nicotine dependence PLAN Patient does not appear to be overloaded at this time Hold off on IV Lasix due to worsening kidney function and hypernatremia Increase metoprolol tartrate 25mg BID Follow renal function and electrolytes in the morning. Continue eliquis for thromboembolic protection. Ongoing telemetry monitoring. Further recommendations to follow based upon clinical course. Past Medical History Past Medical History: Atrial Fibrillation, Asthma, Coronary Artery Disease (CAD), Chest Pain / Angina, Heart Failure, COPD, Diabetes Mellitus, Deep Vein Thrombosis (DVT), Hyperlipidemia, Hypertension, Myocardial Infarction ([place]), Renal Disease, Sleep Apnea/CPAP/BIPAP, Thyroid Disorder, Vascular Disorder Additional Past Medical History / Comment(s): CHF, tracheobronchitis, CKD stage III, kidney stones, DVT L leg in 2004, KAMRYN without device use, colon abscess with bowel resection, multiple abdominal surgeries for a hiatal hernia that was complicated by prolonged hospitalization and prolonged ventilator dependent respiratory failure requiring a tracheostomy tube insertion, pvd-lower legs discolored/edematous, diverticular disease, chronic iron deficiency anemia, vertigo at times, Last Myocardial Infarction Date:: History of Any Multi-Drug Resistant Organisms: MRSA Date of last positivie culture/infection: 02/01/15 MDRO Source:: Abdomen Past Surgical History: Bowel Resection, Heart Catheterization With Stent, Hernia Repair Additional Past Surgical History / Comment(s): Colonoscopies, heart stents x 4, bowel resection with colostomy and colostomy reversal (removed a foot of pts colon)-2003, hernia repair with skin grafts and 2 fistula repairs (hospitalized for 1 year @[facility])-2010 MRSA 2014 in wounds. Past Anesthesia/Blood Transfusion Reactions: No Reported Reaction Additional Past Anesthesia/Blood Transfusion Reaction / Comment(s): Pt has received blood in past without reaction-2010 Date of Last Stent Placement:: 03/28/2015 Past Psychological History: Depression Additional Psychological History / Comment(s): PT IS DISABLED. PT LIVES WITH 2 PET CATS AND 1 DOG. HOME HAS A RAMP. Uses an electric scooter... Since October 2020 Pt has been residing at [facility]. Smoking Status: Unknown if ever smoked Past Alcohol Use History: None Reported Additional Past Alcohol Use History / Comment(s): smokes .25 pack a day. Past Drug Use History: None Reported - Past Family History Mother Family Medical History: Osteoarthritis (OA), Pneumonia Additional Family Medical History / Comment(s): osteoporosis. arthroscopy surgery for knee Father Family Medical History: Liver Disease, Renal Disease Additional Family Medical History / Comment(s): triple heart bypass. liver transplant. aortic aneursym Medications and Allergies Home Medications Medication Instructions Recorded Confirmed Type Apixaban [Eliquis] 5 mg PO BID #60 tab 06/26/20 01/11/21 Rx buPROPion XL [Wellbutrin XL] 150 mg PO DAILY 07/26/20 01/11/21 History Ipratropium-Albuterol Nebulize 3 ml INHALATION RT-Q6H 09/07/20 01/11/21 History [Duoneb 0.5 mg-3 mg/3 ml Soln] Multivitamins, Thera [Multivitamin 1 tab PO HS 10/24/20 01/11/21 History (formulary)] Sertraline [Zoloft] 50 mg PO HS@199910/24/20 01/11/21 History Acetaminophen [Tylenol 8 Hour] 650 mg PO Q6H PRN 01/11/21 01/11/21 History Atorvastatin [Lipitor] 40 mg PO HS@199901/11/21 01/11/21 History Levothyroxine Sodium [Synthroid] 25 mcg PO HS@199901/11/21 01/11/21 History Metoprolol Tartrate [Lopressor] 12.5 mg PO BID@0700,1900 01/11/21 01/11/21 History Sennosides [Senokot] 17.2 mg PO BID 01/11/21 01/11/21 History Allergies Allergy/AdvReac Type Severity Reaction Status Date / Time adhesive Allergy "PLASTIC Verified 01/11/21 14:00 TAPE PEELS SKIN,PAPER TAPE IS OK" linezolid Allergy Unknown Verified 01/11/21 14:00 penicillin G Allergy Rash/Hives Verified 01/11/21 14:00 Cephalosporins AdvReac FEVER Verified 01/11/21 14:00 Physical Exam Vitals: Vital Signs Temp Pulse Pulse Resp BP BP Pulse Ox 01/12/21 03:51 97.6 F 80 20 125/85 94 L 01/12/21 00:00 97.6 F 100 20 111/85 94 L 01/11/21 20:00 100 20 01/11/21 19:41 123 H 14 01/11/21 19:36 91 L 01/11/21 19:35 121 H 14 01/11/21 18:34 97.9 F 105 H 16 114/88 100 01/11/21 18:00 105 H 16 114/88 100 01/11/21 17:00 99 16 100 01/11/21 16:00 105 H 16 100 01/11/21 15:00 103 H 16 119/84 95 01/11/21 14:58 99 16 110/82 95 01/11/21 13:52 97.9 F 107 H 20 131/98 95 Intake and Output 01/11/21 01/12/21 01/12/21 22:59 06:59 14:59 Intake Total 720 Output Total 200 300 Balance -200 420 Intake: Oral 720 Output: Urine 200 300 Uretheral (Swain) 200 Other: Voiding Method Diaper Weight 126 kg Results 01/12/21 06:53 01/12/21 06:53 Cardiac Enzymes 01/11/21 01/11/21 Range/Units 14:32 14:32 AST 27 (17-59) U/L Troponin I <0.012 (0.000-0.034) ng/mL Coagulation 01/11/21 Range/Units 14:32 PT 13.8 H (9.0-12.0) sec APTT 40.9 H (22.0-30.0) sec CBC 01/11/21 Range/Units 14:32 WBC 3.2 L (3.8-10.6) k/uL RBC 4.34 (4.30-5.90) m/uL Hgb 12.4 L (13.0-17.5) gm/dL Hct 39.1 (39.0-53.0) % Plt Count 109 L (150-450) k/uL Comprehensive Metabolic Panel 01/11/21 Range/Units 14:32 Sodium 147 H (137-145) mmol/L Potassium 4.2 (3.5-5.1) mmol/L Chloride 113 H (98-107) mmol/L Carbon Dioxide 17 L (22-30) mmol/L BUN 57 H (9-20) mg/dL Creatinine 3.79 H (0.66-1.25) mg/dL Glucose 75 (74-99) mg/dL Calcium 10.1 (8.4-10.2) mg/dL AST 27 (17-59) U/L ALT 11 (4-49) U/L Alkaline Phosphatase 92 (38-126) U/L Total Protein 7.1 (6.3-8.2) g/dL Albumin 3.6 (3.5-5.0) g/dL Current Medications Generic Name Dose Route Start Last Admin Trade Name Freq PRN Reason Stop Dose Admin Acetaminophen 650 mg 01/11/21 17:39 Acetaminophen Tab 325 Mg Tab PO Q6HR PRN Mild Pain or Fever > 100.5 Albuterol/Ipratropium 3 ml 01/11/21 20:00 01/12/21 01:25 Ipratropium-Albuterol 3 Ml Neb INHALATION Not Given RT-Q6H ZURI Apixaban 5 mg 01/11/21 21:00 01/11/21 22:42 Apixaban 5 Mg Tab PO 5 mg BID ZURI Administration Protocol Atorvastatin Calcium 40 mg 01/11/21 20:00 01/11/21 22:41 Atorvastatin 40 Mg Tab PO 40 mg HS@1999 ZURI Administration Bupropion HCl 150 mg 01/12/21 09:00 Bupropion Xl 150 Mg Tab.Er.24h PO DAILY ZURI Furosemide 60 mg 01/11/21 21:00 01/11/21 22:42 Furosemide 10 Mg/Ml 10 Ml Vial IV 60 mg Q12HR ZURI Administration Levofloxacin 750 mg/ IV 150 mls @ 100 mls/hr 01/11/21 18:00 01/11/21 18:22 Solution IVPB 100 mls/hr Q24H ZURI Administration Levothyroxine Sodium 25 mcg 01/11/21 20:00 01/11/21 22:42 Levothyroxine 25 Mcg Tab PO 25 mcg HS@1999 ZURI Administration Metoprolol Tartrate 12.5 mg 01/11/21 19:00 01/12/21 06:19 Metoprolol Tartrate 12.5 Mg Tab PO 12.5 mg BID@0700,1900 ZURI Administration Multivitamins 1 each 01/11/21 21:00 01/11/21 22:42 Multivitamins, Thera 1 Each Tab PO 1 each HS ZURI Administration Naloxone HCl 0.2 mg 01/11/21 17:33 Naloxone 0.4 Mg/Ml 1 Ml Vial IV Q2M PRN Opioid Reversal Senna 17.2 mg 01/11/21 21:00 01/11/21 22:41 Sennosides 8.6 Mg Tab PO 17.2 mg BID ZURI Administration Sertraline HCl 50 mg 01/11/21 20:00 01/11/21 22:42 Sertraline 50 Mg Tab PO 50 mg HS@1999 ZURI Administration Intake and Output 01/11/21 01/12/21 01/12/21 22:59 06:59 14:59 Intake Total 720 Output Total 200 300 Balance -200 420 Intake: Oral 720 Output: Urine 200 300 Uretheral (Swain) 200 Other: Voiding Method Diaper Weight 126 kg 01/11/21 14:32 01/11/21 14:32
[2021-01-12 12:51] LABS: Glucose,Whole Blood 78 mg/dL (75-99)
--- NOTE | 2021-01-12 14:38 | P.CNPUL ---
History of Present Illness Consult date: 01/12/21 Requesting physician: John Vaughn Reason for consult: other Chief complaint: Altered mental status History of present illness: A 50-year-old white male patient with multiple medical problems including hypertension, hyperlipidemia, chronic atrial fibrillation, this episode of myocardial infarction CHF with diastolic dysfunction, coronary artery disease, COPD, diabetes mellitus type 2, sleep apnea, hypothyroidism, history of DVT, and chronic nonhealing abdominal wounds. Patient has a history of colonic abscess with a bowel resection. We saw the patient in consultation in October 2020 when he was hospitalized with acute exacerbation of CHF. On 01/11/2021 patient presented to the emergency department per EMS for evaluation of altered mental status. Patient is a poor historian. Patient resides in the local [facility]. Apparently she was having decreased appetite, and increased lethargy and confusion. There is no reported fever or difficulty breathing, no cough, no chest discomfort. Most of the history is obtained from the chart, patient is lethargic, and there is no family around. It's unclear whether or not he wears oxygen and CPAP at the custodial. Brain CT showed the ventricles, basal cisterns and sulci overlying the cerebral convexities demonstrating mild enlargement of the patient's age group. Chest x-ray showed right lower lobe infiltrate. Lab work showed a white blood cell count of 3.2, hemoglobin of 12.4, INR is 1.4, sodium is 147, potassium is 4.2, chloride is 113, CO2 17, BUN is 57, creatinine is 3.79, showing acute kidney injury, hyponatremia, dehydratio n. His proBNP came back at 26,005 100, troponin was negative at less than 0.012, LFTs were within normal limits, pro-calcitonin level was 0.38, urinalysis showed large amount of blood, 1+ protein, rare bacteria and mucus, but no clear evidence of urinary tract infection. Urine drug screen was negative. Patient has been afebrile since admission, blood pressure is stable, no hypotension, EKG showed atrial flutter with variable AV block, with a rate of 112 BPM, and nonspecific ST and T-wave abnormality. Of note patient was hypoglycemic in the emergency department but sugar of 66, and 1 amp of 50% dextrose was given with subsequent improvement of patient's blood sugars. Lung sounds are essentially clear, patient briefly wakes up, he denies any cough or congestion, no phlegm production. He is not able to tell us whether or not he wears CPAP at home as he is falling asleep. He does have superficial healing wounds on his abdomen which are covered with dressing, he is on Eliquis for history of chronic atrial fibrillation. Vital signs are stable right now. Started on Levaquin empiric ally, she did receive 500 mL fluid bolus in the emergency department. Neurology evaluation was requested and is pending at this time, EEG is pending, cardiology is consulted, 2-D echocardiogram has been ordered. Wound services are following in regards to the chronic abdominal wounds and patient has a sacral wound as well. Review of Systems All systems: negative Constitutional: Reports weakness, Denies chills, Denies fever Eyes: denies blurred vision, denies pain Ears, nose, mouth and throat: Denies headache, Denies sore throat Cardiovascular: Denies chest pain, Denies shortness of breath Respiratory: Denies cough Gastrointestinal: Denies abdominal pain, Denies diarrhea, Denies nausea, Denies vomiting Musculoskeletal: Denies myalgias Integumentary: Denies pruritus, Denies rash Neurological: Reports change in mentation, Reports weakness, Denies numbness Psychiatric: Denies anxiety, Denies depression Endocrine: Denies fatigue, Denies weight change Past Medical History Past Medical History: Atrial Fibrillation, Asthma, Coronary Artery Disease (CAD), Chest Pain / Angina, Heart Failure, COPD, Diabetes Mellitus, Deep Vein Thrombosis (DVT), Hyperlipidemia, Hypertension, Myocardial Infarction ([place]), Renal Disease, Sleep Apnea/CPAP/BIPAP, Thyroid Disorder, Vascular Disorder Additional Past Medical History / Comment(s): CHF, tracheobronchitis, CKD stage III, kidney stones, DVT L leg in 2004, KAMRYN without device use, colon abscess with bowel resection, multiple abdominal surgeries for a hiatal hernia that was complicated by prolonged hospitalization and prolonged ventilator dependent respiratory failure requiring a tracheostomy tube insertion, pvd-lower legs discolored/edematous, diverticular disease, chronic iron deficiency anemia, vertigo at times, Last Myocardial Infarction Date:: History of Any Multi-Drug Resistant Organisms: MRSA Date of last positivie culture/infection: 02/01/15 MDRO Source:: Abdomen Past Surgical History: Bowel Resection, Heart Catheterization With Stent, Hernia Repair Additional Past Surgical History / Comment(s): Colonoscopies, heart stents x 4, bowel resection with colostomy and colostomy reversal (removed a foot of pts colon)-2003, hernia repair with skin grafts and 2 fistula repairs (hospitalized for 1 [place] [place] [facility] [place] MRSA 2014 in wounds. Past Anesthesia/Blood Transfusion Reactions: No Reported Reaction Additional Past Anesthesia/Blood Transfusion Reaction / Comment(s): Pt has received blood in past without reaction-2010 Date of Last Stent Placement:: 03/28/2015 Past Psychological History: Depression Additional Psychological History / Comment(s): PT IS DISABLED. PT LIVES WITH 2 PET CATS AND 1 DOG. HOME HAS A RAMP. Uses an electric scooter... Since October 2020 Pt has been residing at [facility]. Smoking Status: Unknown if ever smoked Past Alcohol Use History: None Reported Additional Past Alcohol Use History / Comment(s): smokes .25 pack a day. Past Drug Use History: None Reported - Past Family History Mother Family Medical History: Osteoarthritis (OA), Pneumonia Additional Family Medical History / Comment(s): osteoporosis. arthroscopy surgery for knee Father Family Medical History: Liver Disease, Renal Disease Additional Family Medical History / Comment(s): triple heart bypass. liver transplant. aortic aneursym Medications and Allergies Home Medications Medication Instructions Recorded Confirmed Type Apixaban [Eliquis] 5 mg PO BID #60 tab 06/26/20 01/11/21 Rx buPROPion XL [Wellbutrin XL] 150 mg PO DAILY 07/26/20 01/11/21 History Ipratropium-Albuterol Nebulize 3 ml INHALATION RT-Q6H 09/07/20 01/11/21 History [Duoneb 0.5 mg-3 mg/3 ml Soln] Multivitamins, Thera [Multivitamin 1 tab PO HS 10/24/20 01/11/21 History (formulary)] Sertraline [Zoloft] 50 mg PO HS@199910/24/20 01/11/21 History Acetaminophen [Tylenol 8 Hour] 650 mg PO Q6H PRN 01/11/21 01/11/21 History Atorvastatin [Lipitor] 40 mg PO HS@199901/11/21 01/11/21 History Levothyroxine Sodium [Synthroid] 25 mcg PO HS@199901/11/21 01/11/21 History Metoprolol Tartrate [Lopressor] 12.5 mg PO BID@0700,1900 01/11/21 01/11/21 History Sennosides [Senokot] 17.2 mg PO BID 01/11/21 01/11/21 History Allergies Allergy/AdvReac Type Severity Reaction Status Date / Time adhesive Allergy "PLASTIC Verified 01/11/21 14:00 TAPE PEELS SKIN,PAPER TAPE IS OK" linezolid Allergy Unknown Verified 01/11/21 14:00 penicillin G Allergy Rash/Hives Verified 01/11/21 14:00 Cephalosporins AdvReac FEVER Verified 01/11/21 14:00 Physical Exam Vitals: Vital Signs Temp Pulse Pulse Resp BP BP Pulse Ox 01/12/21 07:29 124 H 01/12/21 07:21 118 H 01/12/21 03:51 97.6 F 80 20 125/85 94 L 01/12/21 00:00 97.6 F 100 20 111/85 94 L 01/11/21 20:00 100 20 01/11/21 19:41 123 H 14 01/11/21 19:36 91 L 01/11/21 19:35 121 H 14 01/11/21 18:34 97.9 F 105 H 16 114/88 100 01/11/21 18:00 105 H 16 114/88 100 01/11/21 17:00 99 16 100 01/11/21 16:00 105 H 16 100 01/11/21 15:00 103 H 16 119/84 95 01/11/21 14:58 99 16 110/82 95 01/11/21 13:52 97.9 F 107 H 20 131/98 95 Intake and Output 01/11/21 01/12/21 01/12/21 22:59 06:59 14:59 Intake Total 720 Output Total 200 300 Balance -200 420 Intake: Oral 720 Output: Urine 200 300 Uretheral (Swain) 200 Other: Voiding Method Diaper Weight 126 kg GENERAL EXAM: Lethargic, 50-year-old obese white female, breathing comfortably, 2 L of oxygen pulse ox is 99%, remains in atrial flutter with RVR, with a rate of 120 BPM, patient briefly wakes up to verbal stimulation, answers one or 2 word questions and falls back asleep resting in bed comfortable in no apparent distress. HEAD: Normocephalic/atraumatic. EYES: Normal reaction of pupils, equal size. Conjunctiva pink, sclera white. NOSE: Clear with pink turbinates. THROAT: No erythema or exudates. NECK: No masses, no JVD, no thyroid enlargement, no adenopathy. CHEST: No chest wall deformity. Symmetrical expansion. LUNGS: Equal air entry with no crackles, wheeze, rhonchi or dullness. CVS: Regular rate and rhythm, normal S1 and S2, no gallops, no murmurs, no rubs ABDOMEN: Soft, nontender. No hepatosplenomegaly, normal bowel sounds, no guarding or rigidity. Multiple superficial healing wounds on the left abdomen, covered with a dressing, minimal drainage, nonpurulent. Large incisional hernia on the right abdomen EXTREMITIES: No clubbing, no edema, no cyanosis, 2+ pulses and upper and lower extremities. MUSCULOSKELETAL: Muscle strength and tone normal. SPINE: No scoliosis or deformity SKIN: No rashes CENTRAL NERVOUS SYSTEM: Lethargic, 50-year-old obese white male,, No focal deficits, tone is normal in all 4 extremities. Results - Laboratory Findings CBC and BMP: 01/12/21 06:53 01/12/21 06:53 PT/INR, D-dimer PT 13.8 sec (9.0-12.0) H 01/11/21 14:32 INR 1.4 (<1.2) H 01/11/21 14:32 Abnormal lab findings: Abnormal Labs 01/11/21 01/11/21 01/11/21 14:30 14:32 14:32 WBC 3.2 L Hgb 12.4 L MCHC RDW 22.1 H Plt Count 109 L Lymphocytes # 0.8 L PT 13.8 H INR 1.4 H APTT 40.9 H Sodium Chloride Carbon Dioxide BUN Creatinine POC Glucose (mg/dL) 66 L Total Bilirubin Procalcitonin Urine Protein Urine Ketones Urine Blood Urine RBC Amorphous Sediment Urine Bacteria Urine Mucus 01/11/21 01/11/21 01/11/21 14:32 14:32 14:32 WBC Hgb MCHC RDW Plt Count Lymphocytes # PT INR APTT Sodium 147 H Chloride 113 H Carbon Dioxide 17 L BUN 57 H Creatinine 3.79 H POC Glucose (mg/dL) Total Bilirubin 2.2 H Procalcitonin 0.38 H Urine Protein 1+ H Urine Ketones Trace H Urine Blood Large H Urine RBC 26 H Amorphous Sediment Rare H Urine Bacteria Rare H Urine Mucus Rare H 01/11/21 01/12/21 01/12/21 19:58 00:15 00:31 WBC Hgb MCHC RDW Plt Count Lymphocytes # PT INR APTT Sodium Chloride Carbon Dioxide BUN Creatinine POC Glucose (mg/dL) 74 L 62 L 63 L Total Bilirubin Procalcitonin Urine Protein Urine Ketones Urine Blood Urine RBC Amorphous Sediment Urine Bacteria Urine Mucus 01/12/21 01/12/21 01/12/21 00:45 01:01 06:53 WBC 3.1 L Hgb 12.5 L MCHC 30.4 L RDW 22.2 H Plt Count 110 L Lymphocytes # 0.6 L PT INR APTT Sodium Chloride Carbon Dioxide BUN Creatinine POC Glucose (mg/dL) 61 L 74 L Total Bilirubin Procalcitonin Urine Protein Urine Ketones Urine Blood Urine RBC Amorphous Sediment Urine Bacteria Urine Mucus - Diagnostic Findings Chest x-ray: report reviewed, image reviewed Additional studies: Brain CT, EKG reviewed Assessment and Plan Plan: Assessment: #1. Acute exacerbation of diastolic CHF, chest x-ray has been reviewed, [place] [address] are more consistent with fluid overload, and CHF exacerbation #2. Dehydration due to poor oral intake #3. Hypernatremia related to dehydration, and free water deficit #4. Hypoglycemia, treated with 50% dextrose, improved #5. Altered mental status, multifactorial, related to metabolic encephalopathy, neurology consultation is pending, brain CT showed no acute findings #6. Resident of a local ECF #7. Nonhealing chronic abdominal wounds #8. History of bowel resection related to abdominal sepsis and colonic abscess #9. Obstructive sleep apnea, the status of CPAP is unknown #10. Morbid obesity #11. Chronic A. fib on Eliquis #12. History of hypertension #13. Hyperlipidemia #14. History of coronary artery disease status post PCI and stenting of the circumflex and LAD #15. His history of a DVT #16. Pulse fire is a #17. Acute kidney injury related to ATN #18. Chronic kidney disease stage III Plan: No clear evidence of pneumonia Chest x-ray findings and lab work are more consistent with acute exacerbation of CHF Continue antibiotics Echocardiogram is pending May have to place the patient on BiPAP worsening dyspnea or hypoxia or decreased level of consciousness For now he is in no acute distress, and breathing comfortably on nasal cannula Diuretics are on hold related to his poor oral intake, and dehydration Follow-up chest x-ray and labs for tomorrow I performed a history & physical examination of the patient and discussed their management with my nurse practitioner, Paola Tompkins. I reviewed the nurse practitioner's note and agree with the documented findings and plan of care. Lung sounds are positive for clear breath. The findings and the impression was discussed with the patient. I attest to the documentation by the nurse practitioner. Time with Patient: Greater than 30
[2021-01-12 17:10] LABS: Glucose,Whole Blood 67 mg/dL (75-99)
[2021-01-12] MEDS: SODIUM CHLORIDE 0.9% 1,000 ML IV SCH (17:24)
[2021-01-12 17:30] LABS: Glucose,Whole Blood 64 mg/dL (75-99)
[2021-01-12 17:48] LABS: Glucose,Whole Blood 65 mg/dL (75-99)
[2021-01-12 18:15] LABS: Glucose,Whole Blood 67 mg/dL (75-99)
[2021-01-12 18:26] LABS: Glucose,Whole Blood 387 mg/dL (75-99)
[2021-01-12 18:26] LABS: Glucose,Whole Blood 85 mg/dL (75-99)
[2021-01-12 18:44] LABS: Glucose,Whole Blood 82 mg/dL (75-99)
--- NOTE | 2021-01-12 18:46 | P.CNNES ---
History of Present Illness Consult date: 01/12/21 Requesting physician: John Vaughn Reason for Consult: Ventricle enlargement on CTH with AMS w declining baseline mentation History of Present Illness: Patient is a 50-year-old male came to the hospital by ambulance yesterday at 1:45 PM for altered mental status. Patient not able to provide much history. As per EMS flow sheet when arrived, found the patient in a semi-Dudley's position accompanied by staff in some obvious distress and he does not make eye contact upon greeting. He was alert and 1, oriented to person only which is not his normal mentation per staff. The patient is normally alert 4. He has been altered for the last 2 days with no recent changes to his medication and his diet is normal, no fever or chills or recent traumatic injuries, no nausea vomiting. Patient was noted to have atrial fibrillation with rapid ventricular rate. Blood glucose was 86. Patient's blood pressure was 129/71, pulse rate 94, respiration 20, saturation 95%. Patient denies any headache at this time. Denies any focal symptoms. Patient states that he lives with his mother and uncle. He does not walk. Vital signs on arrival blood pressure 131/98, pulse rate 107, temperature 97.9. Computed tomography scan of head showed ventricles, basal cisterns and sulci overlying the cerebral convexities demonstrate mild enlargement of the patient's age group. Chest x-ray revealed right lower lobe infiltrate. Correlate for pneumonia. Progress studies are advised. EKG shows atrial flutter with variable AV block and premature ventricular or aberrantly conducted complexes. Blood test shows WBC 3.1 hemoglobin 12.5, platelets 110. Electrolytes are normal, BUN 57, creatinine 3.74. Urine drug screen negative. UA shows trace ketones, large amount of blood, 26 RBCs. Patient's home medications include Apixaban 5 mg twice a day, Wellbutrin XL 150 mg daily, Zoloft 50 mg, levothyroxine, Lipitor 40 mg. Patient states he has history of diabetes for 10 years. He denies any tobacco or alcohol use. Patient has been seen by cardiology who doesn't believe patient is volume overloaded. Medications has been adjusted. Pulmonary also saw the patient who feels patient has acute exacerbation of diastolic CHF. I spoke to patient's nephew Rhiannon, who provided with additional history. He states patient has been living in a snf for last 4 months. He used to live by himself, but no one was taking care of him and he was not taking care of himself. Once his parents , he stopped caring about himself, living in a very poor hygiene. Patient never got , has no children. He always used to be "baby of the family". After his parents , he stopped caring. Rhiannon does not believe that patient has done any alcohol or drugs. He does smoke and he did not know how much. He has a scooter which he uses inside the house and outside. When he tries to walk, he gets short winded and has to sit every 5 feet. He only goes outside to see the doctor is otherwise patient's nephew does all the groceries. This was before he moved to a snf. Patient has mentioned that he lives with his mother and uncle, which is not true as per Mr. Jurado's statement. Review of Systems Patient denies headache. He did not cooperate with evaluation of rest of the review of systems. He could not tell how long he does have petechial rash on his extremities. Patient complains of dry mouth. ROS unobtainable: due to mental status Past Medical History Past Medical History: Atrial Fibrillation, Asthma, Coronary Artery Disease (CAD), Chest Pain / Angina, Heart Failure, COPD, Diabetes Mellitus, Deep Vein Thrombosis (DVT), Hyperlipidemia, Hypertension, Myocardial Infarction (UT), Renal Disease, Sleep Apnea/CPAP/BIPAP, Thyroid Disorder, Vascular Disorder Additional Past Medical History / Comment(s): CHF, tracheobronchitis, CKD stage III, kidney stones, DVT L leg in 2004, KAMRYN without device use, colon abscess with bowel resection, multiple abdominal surgeries for a hiatal hernia that was complicated by prolonged hospitalization and prolonged ventilator dependent respiratory failure requiring a tracheostomy tube insertion, pvd-lower legs discolored/edematous, diverticular disease, chronic iron deficiency anemia, vertigo at times, Last Myocardial Infarction Date:: History of Any Multi-Drug Resistant Organisms: MRSA Date of last positivie culture/infection: 02/01/15 MDRO Source:: Abdomen Past Surgical History: Bowel Resection, Heart Catheterization With Stent, Hernia Repair Additional Past Surgical History / Comment(s): Colonoscopies, heart stents x 4, bowel resection with colostomy and colostomy reversal (removed a foot of pts colon)-2003, hernia repair with skin grafts and 2 fistula repairs (hospitalized for [facility] year [facility]2010 MRSA 2014 in wounds. Past Anesthesia/Blood Transfusion Reactions: No Reported Reaction Additional Past Anesthesia/Blood Transfusion Reaction / Comment(s): Pt has received blood in past without reaction-2010 Date of Last Stent Placement:: 03/28/2015 Past Psychological History: Depression Additional Psychological History / Comment(s): PT IS DISABLED. PT LIVES WITH 2 PET CATS AND 1 DOG. HOME HAS A RAMP. Uses an electric scooter... Since October 2020 Pt has been residing at [facility]. Smoking Status: Unknown if ever smoked Past Alcohol Use History: None Reported Additional Past Alcohol Use History / Comment(s): smokes .25 pack a day. Past Drug Use History: None Reported - Past Family History Mother Family Medical History: Osteoarthritis (OA), Pneumonia Additional Family Medical History / Comment(s): osteoporosis. arthroscopy surgery for knee Father Family Medical History: Liver Disease, Renal Disease Additional Family Medical History / Comment(s): triple heart bypass. liver transplant. aortic aneursym Medications and Allergies Home Medications Medication Instructions Recorded Confirmed Type Apixaban [Eliquis] 5 mg PO BID #60 tab 06/26/20 01/11/21 Rx buPROPion XL [Wellbutrin XL] 150 mg PO DAILY 07/26/20 01/11/21 History Ipratropium-Albuterol Nebulize 3 ml INHALATION RT-Q6H 09/07/20 01/11/21 History [Duoneb 0.5 mg-3 mg/3 ml Soln] Multivitamins, Thera [Multivitamin 1 tab PO HS 10/24/20 01/11/21 History (formulary)] Sertraline [Zoloft] 50 mg PO HS@199910/24/20 01/11/21 History Acetaminophen [Tylenol 8 Hour] 650 mg PO Q6H PRN 01/11/21 01/11/21 History Atorvastatin [Lipitor] 40 mg PO HS@199901/11/21 01/11/21 History Levothyroxine Sodium [Synthroid] 25 mcg PO HS@199901/11/21 01/11/21 History Metoprolol Tartrate [Lopressor] 12.5 mg PO BID@0700,1900 01/11/21 01/11/21 History Sennosides [Senokot] 17.2 mg PO BID 01/11/21 01/11/21 History Allergies Allergy/AdvReac Type Severity Reaction Status Date / Time adhesive Allergy "PLASTIC Verified 01/11/21 14:00 TAPE PEELS SKIN,PAPER TAPE IS OK" linezolid Allergy Unknown Verified 01/11/21 14:00 penicillin G Allergy Rash/Hives Verified 01/11/21 14:00 Cephalosporins AdvReac FEVER Verified 01/11/21 14:00 Physical Examination - Vital Signs Vital Signs: Vital Signs Temp Pulse Pulse Resp BP BP Pulse Ox 01/12/21 08:00 97.9 F 120 H 20 105/70 99 01/12/21 07:29 124 H 01/12/21 07:21 118 H 01/12/21 03:51 97.6 F 80 20 125/85 94 L 01/12/21 00:00 97.6 F 100 20 111/85 94 L 01/11/21 20:00 100 20 01/11/21 19:41 123 H 14 01/11/21 19:36 91 L 01/11/21 19:35 121 H 14 01/11/21 18:34 97.9 F 105 H 16 114/88 100 01/11/21 18:00 105 H 16 114/88 100 01/11/21 17:00 99 16 100 01/11/21 16:00 105 H 16 100 01/11/21 15:00 103 H 16 119/84 95 01/11/21 14:58 99 16 110/82 95 01/11/21 13:52 97.9 F 107 H 20 131/98 95 Intake and Output 01/11/21 01/12/21 01/12/21 22:59 06:59 14:59 Intake Total 720 118 Output Total 200 300 Balance -200 420 118 Intake: Oral 720 118 Output: Urine 200 300 Uretheral (Swain) 200 Other: Voiding Method Diaper Indwelling Catheter Weight 126 kg Patient is a middle aged male, in no respiratory distress, but appears uncomfortable, slightly restless. Patient is encephalopathic. Somnolent, but did wake up finally to repeated instructions. Patient is slightly groggy, mildly lethargic, but does and follows some commands. Speech and language functions are normal. Patient can name and repeat very well. Attention, concentration and fund of knowledge is limited. Patient knows his name, could not tell me his age. HEENT states he is in the hospital but did not tell me the name. Could not tell name of the current president. When I stated it if it was Ob[place], patient replied yes. He could not tell the current month or the year. He also does not seem to concentrate to answer questions also, therefore is uncertain how much is volitional. On cranial examination, pupils are round and reacting to light, visual [place] are full on confrontation, extraocular muscles are intact with no nystagmus. Face is symmetric, tongue protrudes to the midline. Palatal elevation and sensation normal, hearing and shoulder shrug normal, facial sensation normal. Shoulder shrug normal. Patient has dry mouth. On muscle strength testing, there is no pronator drift. Patient has asterixis and myoclonic jerks noted. Patient's strength is generalized weak about 4 to 4+ in the arms and legs. Deep tendon reflexes are reflexes are 1+ in the upper limbs, 1+ to 2 at the knees, 1 at ankles and plantars downgoing. Sensory to touch is equal with no neglect. Cerebellar function showed no ataxia for [id number] testing. Tone and bulk of muscles normal. Gait not checked. On general examination, there is evidence of previous tracheostomy scar. There is no obvious no carotid bruit or murmur, S1-S2 audible. Abdomen is soft nontender. Chest is clear. Patient has significant hyperpigmentation involving the distal lower extremities bilaterally. He has peripheral edema. Patient has petechial rash over his upper and lower extremities. Neck is supple. Results - Laboratory Findings CBC and BMP: 01/12/21 06:53 01/12/21 06:53 Abnormal Lab Findings: Abnormal Labs 01/11/21 01/11/21 01/11/21 14:30 14:32 14:32 WBC 3.2 L Hgb 12.4 L MCHC RDW 22.1 H Plt Count 109 L Lymphocytes # 0.8 L PT 13.8 H INR 1.4 H APTT 40.9 H Sodium Chloride Carbon Dioxide BUN Creatinine POC Glucose (mg/dL) 66 L Total Bilirubin Procalcitonin Urine Protein Urine Ketones Urine Blood Urine RBC Amorphous Sediment Urine Bacteria Urine Mucus 07/28/21 07/28/21 07/28/21 14:32 14:32 14:32 WBC Hgb MCHC RDW Plt Count Lymphocytes # PT INR APTT Sodium 147 H Chloride 113 H Carbon Dioxide 17 L BUN 57 H Creatinine 3.79 H POC Glucose (mg/dL) Total Bilirubin 2.2 H Procalcitonin 0.38 H Urine Protein 1+ H Urine Ketones Trace H Urine Blood Large H Urine RBC 26 H Amorphous Sediment Rare H Urine Bacteria Rare H Urine Mucus Rare H 01/11/21 01/12/21 01/12/21 19:58 00:15 00:31 WBC Hgb MCHC RDW Plt Count Lymphocytes # PT INR APTT Sodium Chloride Carbon Dioxide BUN Creatinine POC Glucose (mg/dL) 74 L 62 L 63 L Total Bilirubin Procalcitonin Urine Protein Urine Ketones Urine Blood Urine RBC Amorphous Sediment Urine Bacteria Urine Mucus 01/12/21 01/12/21 01/12/21 00:45 01:01 06:53 WBC 3.1 L Hgb 12.5 L MCHC 30.4 L RDW 22.2 H Plt Count 110 L Lymphocytes # 0.6 L PT INR APTT Sodium Chloride Carbon Dioxide BUN Creatinine POC Glucose (mg/dL) 61 L 74 L Total Bilirubin Procalcitonin Urine Protein Urine Ketones Urine Blood Urine RBC Amorphous Sediment Urine Bacteria Urine Mucus 01/12/21 06:53 WBC Hgb MCHC RDW Plt Count Lymphocytes # PT INR APTT Sodium Chloride 113 H Carbon Dioxide 19 L BUN 57 H Creatinine 3.74 H POC Glucose (mg/dL) Total Bilirubin Procalcitonin Urine Protein Urine Ketones Urine Blood Urine RBC Amorphous Sediment Urine Bacteria Urine Mucus Assessment and Plan Assessment: * Abnormal computed tomography scan, with evidence of ventricular prominence prominence. I reviewed computed tomography scan of the head, and to me darío ears significant amount of cortical atrophy with symmetric enlargement of the ventricles. I do not see any evidence of NPH. * Altered mental status, likely due to toxic metabolic encephalopathy. * Possible fluid overload, possible acute exacerbation of diastolic CHF. * Diabetes with diabetic ulcers. Last A1c 5.1 on 08/09/2020, which is perfectly fine. * Obstructive sleep apnea * Chronic atrial fibrillation on Eliquis * Hypertension * Hyperlipidemia * History of DVT Plan: * Computed tomography scan was reviewed. There is generalized cortical atrophy with secondary enlargement of the lateral ventricles. No evidence of NPH. * EEG was performed, which was moderate to severe slowing consistent with toxic metabolic encephalopathy. No epileptiform activity was seen. * Patient's examination is suggestive of toxic metabolic encephalopathy. Probably related to underlying cardiopulmonary dysfunction. * I will check B12, folate, MMA, B6, B1, RPR, TSH and ceruloplasmin. We will follow the levels. * Medical management as per IM and other subspecialties. * Dr. Hernán Overton Will follow up in the morning.
--- NOTE | 2021-01-12 19:46 | CONS ---
CONSULTATION REASON FOR CONSULT: Renal failure. HISTORY OF PRESENT ILLNESS: The patient is a 50-year-old male with a history of chronic kidney disease stage 3B, baseline creatinine around 2, secondary to nephrosclerosis and cardiorenal syndrome. The patient has an underlying history of CHF. Echocardiogram shows ejection fraction 55% to 60%, in June of 2020. The patient was admitted this time with a complaints of increased weakness and worsening mentation. [facility] The patient denies any other significant symptoms. He is a poor historian. Serum creatinine is 3.74. Previous creatinine was 2.75 in October of 2020. Blood pressure is on the lower side, systolic around 105-111 mmHg. Chest x-ray done this admission shows right lower lobe infiltrate, possible pneumonia. A Swain catheter has been placed. PAST MEDICAL HISTORY: CKD stage 3B to 4 with previous creatinine around 1.9-2, but now staying about 2.75 as of October of 2020, history of diastolic heart failure, colon abscess, bowel resection, multiple abdominal surgeries, vent dependent respiratory failure requiring tracheostomy, diverticular disease, anemia. PAST SURGICAL HISTORY: Bowel resection, cardiac catheterization, coronary stent placement, hernia repair, wound I and D's. SOCIAL HISTORY: Patient is positive for patient being a former smoker. No history of drug abuse or alcohol abuse. MEDICATIONS: Medications prior to admission include Aldactone, Eliquis, Wellbutrin, Lasix, Neurontin, Imdur, insulin, Lipitor, Lopressor, Tylenol, aspirin, folic acid, Prilosec, Zoloft, Zaroxolyn, tramadol. ALLERGIES: Include PENICILLIN G, CEPHALOSPORINS, ZYVOX, ADHESIVE TAPE. REVIEW OF SYSTEMS: As per HPI. Other systems negative. EXAMINATION: Patient is currently awake, comfortable, he is not in any acute distress. Blood pressure this morning was 105/70, heart rate 120 per minute. Patient is afebrile. Examination of the heart S1, S2. Examination of lungs, decreased breath sounds at the bases. Abdomen is soft. Morbidly obese. The wound is dressed on his abdomen towards the left side. Examination of lower extremities shows significant chronic skin changes, no significant edema noted. 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 LAB: 1. Show hemoglobin 12.5, white cell count 3.1, sodium 145, potassium 3.9, chloride 113, CO2 is 19, BUN 57, creatinine 3.74. ASSESSMENT: 1. Acute kidney injury, mostly prerenal, associated with underlying infection as well as hypotension volume depletion. Maintain patient on IV hydration. Continue with antibiotics. Hold off on diuretics. 2. History of diastolic heart failure. 3. Morbid obesity. 4. Chronic kidney disease stage 3B to 4 with previous creatinine 1.9-2 as of July and early part of October, but then serum creatinine had been around 2.6-2.7 mg/dL. Currently with indwelling Swain catheter. Therefore, no element of obstructive uropathy. 5. Mild metabolic acidosis associated with renal failure. 6. Pneumonia with chest x-ray showing right lower lobe infiltrate. PLAN: Continue empiric antibiotics. Add gentle IV hydration. Repeat labs in a.m. Agree with holding diuretics. Thank you for this consultation. Will continue to follow the patient with you during his hospitalization. EUNICE / AUREAN: [id number] /
[2021-01-12] MEDS: ATORVASTATIN 40 MG TAB PO SCH (20:38)
[2021-01-12] MEDS: MULTIVITAMINS, THERA 1 EACH TAB PO SCH (20:38)
[2021-01-12] MEDS: SERTRALINE 50 MG TAB PO SCH (20:38)
[2021-01-12] MEDS: LEVOTHYROXINE 25 MCG TAB PO SCH (20:38)
[2021-01-12 20:45] LABS: Glucose,Whole Blood 92 mg/dL (75-99)
--- NOTE | 2021-01-12 20:46 | EEG ---
ELECTROENCEPHALOGRAM REPORT DATE OF SERVICE: 01/12/2021 PREAMBLE: This is a 50-year-old male with altered mental status. EEG FINDINGS: This is a 21 channel routine EEG recording patient utilizing 10/20 international system with referential bipolar montages. Background consists of poorly developed and regulated, diffuse slowing in mixed frequencies of 5-6 hertz theta mixed with 1-2 hertz delta activity seen in bihemispheric region. Background does not seem to be reactive to eye opening or closing. Photic stimulation and hyperventilation were not performed. Some intermittent sleep spindles were occasionally seen in the later part of the study. No focal or generalized epileptiform activity was seen. IMPRESSION: This is an abnormal EEG due to background slowing of at least moderate to severe degree. This is suggestive of generalized cerebral dysfunction as can be seen with toxic metabolic encephalopathy or due to diffuse structural brain abnormality. The patient was asleep during part of the study. Well-formed awake pattern not seen in the entire study. Followup EEG recommended, if clinically indicated. MMODL / IJN: [id number] /
[2021-01-13] MEDS: IPRATROPIUM-ALBUTEROL 3 ML NEB INHALATION SCH ×4 (02:13→20:57)
[2021-01-13 06:14] LABS: Glucose,Whole Blood 83 mg/dL (75-99)
[2021-01-13] MEDS: SODIUM CHLORIDE 0.9% 1,000 ML IV SCH (06:28)
[2021-01-13] MEDS: METOPROLOL TARTRATE 12.5 MG TAB PO SCH ×2 (06:29→16:54)
[2021-01-13 07:22] LABS: Calcium 9.9 mg/dL (8.4-10.2)
--- NOTE | 2021-01-13 07:24 | XR ---
EXAMINATION TYPE: XR chest 1V portable DATE OF EXAM: 01/13/2021 COMPARISON: 01/11/2021 HISTORY: Chest pain TECHNIQUE: Single frontal view of the chest is obtained. FINDINGS: Persistent right lower lobe patchy density. Prominence of the pulmonary interstitium and pulmonary ve nous congestion as well as cardiomegaly. The cardiac silhouette size is within normal limits. The osseous structures are intact. IMPRESSION: 1. Findings may reflect interstitial edema. Infiltrates of other etiology not excluded. Correlate cli nically and progress studies are advised.
[2021-01-13] MEDS: APIXABAN 5 MG TAB PO SCH ×2 (08:32→20:27)
[2021-01-13] MEDS: buPROPion XL 150 MG TAB.ER.24H PO SCH (08:32)
[2021-01-13] MEDS: SENNOSIDES 8.6 MG TAB PO SCH ×2 (08:32→20:27)
[2021-01-13 08:34] LABS: Anisocytosis Moderate; Basophils % (A) 1 %; Eosinophils # (A) 0.5 k/uL (0-0.7); Eosinophils % (A) 15 %; HCT 41.1 % (39.0-53.0); HGB 12.9 gm/dL (13.0-17.5); Hypochromasia Moderate; Lymphocytes # (A) 0.8 k/uL (1.0-4.8); Lymphocytes % (A) 24 %; MCH 28.8 pg (25.0-35.0); MCHC 31.3 g/dL (31.0-37.0); MCV 91.9 fL (80.0-100.0); Macrocytosis Slight; Mean Platelet Volume 9.1; Monocytes # (A) 0.3 k/uL (0-1.0); Monocytes % (A) 8 %; Neutrophils # (A) 1.6 k/uL (1.3-7.7); Neutrophils % (A) 50 %; Platelet Count 134 k/uL (150-450); Poikilocytosis Slight; RBC 4.47 m/uL (4.30-5.90); RDW 22.7 % (11.5-15.5); WBC 3.2 k/uL (3.8-10.6)
[2021-01-13] MEDS: DEXTROSE 5% IN WATER 1,000 ML with SODIUM BICARB (1 MEQ/ML) 150 ML IV SCH (11:10)
[2021-01-13] MEDS ORDERED: oxyCODONE-APAP 5-325MG 1 EACH TAB PO PRN (11:15)
--- NOTE | 2021-01-13 11:25 | P.PN ---
Subjective Progress Note Date: 01/13/21 Mentation has improved to likely baseline. He is still A+O x 1-2, however, more interactive, does follow commands, is able to indicate discomfort and localize pain. Kidney function stable but worse than baseline. Breathing returned to baseline 2L O2 requirement with no distress. He appears to have chronic diastolic heart failure, but is intravascular volume depleted, currently on bicarb gtt. Objective - Vital Signs Vital signs: Vital Signs Temp 98.1 F 01/13/21 08:00 Pulse 112 H 01/13/21 08:52 Resp 22 01/13/21 08:00 BP 106/71 01/13/21 08:00 Pulse Ox 93 L 01/13/21 08:00 Intake & Output 01/12/21 01/13/21 01/13/21 18:59 06:59 18:59 Intake Total 118 480 120 Output Total 400 Balance 118 80 120 Weight 126 kg 127 kg Intake: Oral 118 480 120 Output: Urine 400 Other: Voiding Method Indwelling Catheter Indwelling Catheter Indwelling Catheter - Exam Gen: awake, alert, A+O x 1 HEENT: normocephalic, atraumatic, good hearing acuity, moist mucous membranes Resp: diminished air exchange, diffuse wheezing, crackles in the right lower base. CVS: good distal perfusion x 4, irregular rhythm, tachycardiac GI: soft, NTTP, ND : no SPT, no CVAT, vu catheter not present MSK: + b/l pitting edema, no clubbing Neuro: non-focal, moving all extremities - Labs CBC & Chem 7: 01/13/21 06:47 01/13/21 06:47 Labs: Abnormal Lab Results - Last 24 Hours (Table) 01/12/21 01/12/21 01/12/21 Range/Units 17:01 17:19 17:47 WBC (3.8-10.6) k/uL Hgb (13.0-17.5) gm/dL RDW (11.5-15.5) % Plt Count (150-450) k/uL Lymphocytes # (1.0-4.8) k/uL Chloride (98-107) mmol/L Carbon Dioxide (22-30) mmol/L BUN (9-20) mg/dL Creatinine (0.66-1.25) mg/dL Glucose (74-99) mg/dL POC Glucose (mg/dL) 67 L 64 L 65 L (75-99) mg/dL 01/12/21 01/12/21 01/13/21 Range/Units 18:04 18:19 06:47 WBC (3.8-10.6) k/uL Hgb (13.0-17.5) gm/dL RDW (11.5-15.5) % Plt Count (150-450) k/uL Lymphocytes # (1.0-4.8) k/uL Chloride 111 H (98-107) mmol/L Carbon Dioxide 16 L (22-30) mmol/L BUN 57 H (9-20) mg/dL Creatinine 3.61 H (0.66-1.25) mg/dL Glucose 102 H (74-99) mg/dL POC Glucose (mg/dL) 67 L 387 H (75-99) mg/dL 01/13/21 Range/Units 06:47 WBC 3.2 L (3.8-10.6) k/uL Hgb 12.9 L (13.0-17.5) gm/dL RDW 22.7 H (11.5-15.5) % Plt Count 134 L (150-450) k/uL Lymphocytes # 0.8 L (1.0-4.8) k/uL Chloride (98-107) mmol/L Carbon Dioxide (22-30) mmol/L BUN (9-20) mg/dL Creatinine (0.66-1.25) mg/dL Glucose (74-99) mg/dL POC Glucose (mg/dL) (75-99) mg/dL Microbiology - Last 24 Hours (Table) 01/12/21 15:58 Urine Culture - Preliminary Urine,Catheterized Assessment and Plan Assessment: Acute on chronic respiratory failure with hypoxia Toxic/metabolic encephalopathy Chronic heart failure, with preserved ejection fraction Suspected pneumonia in the right lower lobe COPD exacerbation RAYSA superimposed on CKD stage IV Paroxysmal atrial fibrillation with rapid ventricular response Hyperlipidemia Depression Hypothyroidism Chronic abdominal wound Plan: -Admit patient to telemetry, inpatient -Oxygen when necessary -DuoNeb's q6h + when necessary -Levofloxacin -Follow up pro-calcitonin = 0.38 -Follow up UCx -Care center UA growing VRSA; patient isolated with contact precautions, repeat UCx pending -Pulmonary consult, appreciate recs -Cardiology consult -Lasix 60 mg IV twice a day d/c'd 01/12 by cardiology -home metoprolol increased from 12.5mg BID to 25mg BID -Nephrology consult -now on D5/150mEq Bicarb gtt at 75cc/hr by nephrology -Neurology consult regarding CTH findings in context of gradually declining mental baseline -EEG negative for epileptic focus; B12, folate, MMA are pending -Continue home lipitor -Continue home Eliquis -Continue home sertraline, Wellbutrin -Continue home levothyroxine -Wound care consult Pt is Full Code, in discussion with Nephew regarding changing to DNR/DNI -attempted to call on 01/12, but no response -attempted to call on 01/13, but no response, left a voicemail DVT PPx covered with Dilip Nephew is pending paperwork for DPOA Dispo: back to care center after medically cleared
--- NOTE | 2021-01-13 11:45 | ECHOF ---
Referral Reason:LV function MEASUREMENTS -------- HEIGHT: 180.3 cm WEIGHT: 125.6 kg BP: RVIDd: 3.5 cm (< 3.3) IVSd: 1.3 cm (0.6 - 1.1) LVIDd: 3.9 cm (3.9 - 5.3) LVPWd: 1.5 cm (0.6 - 1.1) IVSs: 1.6 cm LVIDs: 2.8 cm LVPWs: 1.8 cm Ao Diam: 3.4 cm (2.0 - 3.7) AV Cusp: 2.3 cm (1.5 - 2.6) LA Diam: 5.9 cm (2.7 - 3.8) MV EXCURSION: 18.221 mm (> 18.000) MV EF SLOPE: 150 mm/s (70 - 150) EPSS: 0.8 cm RAP: 5.00 mmHg RVSP: 37.78 mmHg FINDINGS -------- This was a technically difficult study with suboptimal views. The left ventricular size is normal. There is moderate concentric left ventricular hypertrophy. O verall left ventricular systolic function is moderately impaired with, an EF between 35 - 40 %. The right ventricle is mild to moderately enlarged. Paradoxical motion of the right ventricular sep mukund is consistent with right ventricular overload and/or elevated right ventricular end-diastolic pre ssure. The left atrium is markedly dilated. The right atrial size is normal. Lumason used The aortic valve is trileaflet and appears structurally normal. The mitral valve is normal. Moderate mitral regurgitation is present. The tricuspid valve appears structurally normal. Mild tricuspid regurgitation present. There is m ild pulmonary hypertension. The right ventricular systolic pressure, as measured by Doppler, is 37. 78mmHg. The pulmonic valve was not well visualized. The aortic root size is normal. IVC Not well visulized. There is no pericardial effusion. CONCLUSIONS -------- 1. The left ventricular size is normal. 2. There is moderate concentric left ventricular hypertrophy. 3. Overall left ventricular systolic function is moderately impaired with, an EF between 35 - 40 %. 4. The right ventricle is mild to moderately enlarged. 5. Paradoxical motion of the right ventricular septum is consistent with right ventricular overload a nd/or elevated right ventricular end-diastolic pressure. 6. The left atrium is markedly dilated. 7. Moderate mitral regurgitation is present. 8. Mild tricuspid regurgitation present. 9. There is mild pulmonary hypertension. 10. The right ventricular systolic pressure, as measured by Doppler, is 37.78mmHg. 11. There is no pericardial effusion. HIGHWAY INSPECTOR: Dari Tenorio RDCS
--- NOTE | 2021-01-13 12:06 | CDI ---
Documentation Clarification Form Date: 01/13/2021 11:44:45 AM From: Verenice Bryan RN CCDS Admit Date: 01/12/2021 11:57:00 AM Patient Name: Maximo Cerna Visit Number: [id number] Discharge Date: ATTENTION: The Clinical Documentation Specialists (CDI) and [facility] Coding Staff appreciate your assistance in clarifying documentation. Please respond to the clarification below the line at the bottom and electronically sign. The CDI & [facility] Coding staff will review the response and follow-up if needed. Please note: Queries are made part of the Legal Health Record. If you have any questions, please contact the author of this message via ITS. Dr. John Vaughn, Conflicting documentation has been found in the medical record. As attending physician, please provide clarification. Acute on chronic heart failure with preserved ejection fraction, H&P 728. Chronic heart failure, with preserved ejection fraction, 01/12. History/Risk Factors: 50-year-old male presents to the ED with altered mental status. Medical history: HFpEF, Paroxysmal Afib, and CKD IV. H&P 01/11. Clinical Indicators: VSS 01/11: B/P 131/98, HR 107, Temp 97.9 F Oral, RR 20, SpO2 95% 4L nasal cannula Pulmonary Consult 01/12: Acute exacerbation of diastolic CHF, chest x-ray has been reviewed, [place] [address] are more consistent with fluid overload and CHF exacerbation. Lab 01/11: proBNP 18818 CXR 01/11: Right lower lobe infiltrate. Treatment: 01/11 Lasix 60mg IV Q12 HR ZURI d/cd 01/11; Lopressor 12.5mg PO BID ZURI d/cd 01/12. Please clarify which diagnosis is most appropriate: [ ] Chronic Diastolic Heart Failure [ ] Acute on Chronic Diastolic Heart Failure [ ] Other (please specify) [ ] Unable to determine (Template Last Revised: August 2020) Acute on chronic on admission, since improved MTDD
--- NOTE | 2021-01-13 12:10 | P.PN ---
Subjective Progress Note Date: 01/13/21 A 50-year-old white male patient with multiple medical problems including hypertension, hyperlipidemia, chronic atrial fibrillation, this episode of myocardial infarction CHF with diastolic dysfunction, coronary artery disease, COPD, diabetes mellitus type 2, sleep apnea, hypothyroidism, history of DVT, and chronic nonhealing abdominal wounds. Patient has a history of colonic abscess with a bowel resection. We saw the patient in consultation in October 2020 when he was hospitalized with acute exacerbation of CHF. On 01/11/2021 patient presented to the emergency department per EMS for evaluation of altered mental status. Patient is a poor historian. Patient resides in the local [facility]. Apparently she was having decreased appetite, and increased lethargy and confusion. There is no reported fever or difficulty breathing, no cough, no chest discomfort. Most of the history is obtained from the chart, patient is lethargic, and there is no family around. It's unclear whether or not he [facility] oxygen and CPAP [facility]. Brain CT showed the ventricles, basal cisterns and sulci overlying the cerebral convexities demonstrating mild enlargement of the patient's age group. Chest x-ray showed right lower lobe infiltrate. Lab work showed a white blood cell count of 3.2, hemoglobin of 12.4 , INR is 1.4, sodium is 147, potassium is 4.2, chloride is 113, CO2 17, BUN is 57, creatinine is 3.79, showing acute kidney injury, hyponatremia, dehydration. His proBNP came back at 26,005 100, troponin was negative at less than 0.012, LFTs were within normal limits, pro-calcitonin level was 0.38, urinalysis showed large amount of blood, 1+ protein, rare bacteria and mucus, but no clear evidence of urinary tract infection. Urine drug screen was negative. Patient has been afebrile since admission, blood pressure is stable, no hypotension, EKG showed atrial flutter with variable AV block, with a rate of 112 BPM, and nonspecific ST and T-wave abnormality. Of note patient was hypoglycemic in the emergency department but sugar of 66, and 1 amp of 50% dextrose was given with subsequent improvement of patient's blood sugars. Lung sounds are essentially clear, patient briefly wakes up, he denies any cough or congestion, no phlegm production. He is not able to tell us whether or not he wears CPAP at home as he is falling asleep. He does have superficial healing wounds on his abdomen w hich are covered with dressing, he is on Eliquis for history of chronic atrial fibrillation. Vital signs are stable right now. Started on Levaquin empirically, she did receive 500 mL fluid bolus in the emergency department. Neurology evaluation was requested and is pending at this time, EEG is pending, cardiology is consulted, 2-D echocardiogram has been ordered. Wound services are following in regards to the chronic abdominal wounds and patient has a sacral wound as well. Today's evaluation on 01/13/2021 patient seen in follow-up on selective care. He is still very confused, he is awake, he is arousable, however she makes poor eye contact, he thinks he is in [place], he thought there was a word sitting on his foot, he thinks he lives in [place] by himself in a house. Room air pulse ox was noted to be around 76 and subsequently patient was placed on 2 L of oxygen and pulse ox improved to 100%. He appears to be breathing comfortably, no cough, no congestion, no complaints of chest discomfort. No evidence of respiratory distress. EEG was done and showed abnormal EEG, due to background slowing of at least moderate to severe degree suggestive of generalized cerebral dysfunction related to sick metabolic encephalopathy. There were no focal or generalized epileptiform activity seen on the EEG. Brain CT on admission showed enlargement of the ventricles, basal cisterns and sulci with no evidence of intracranial hemorrhage or sulcal effacement. Repeat chest x-ray was reviewed showing interstitial edema though infiltrates of other etiology were not completely excluded, nevertheless patient is covered with empiric antibiotics in the form of Levaquin. he had no fever or chills, today's labs have been reviewed, his white blood cell count is stable at 3.2, hemoglobin is 12.9, sodium is 143, potassium is 4.0, chloride is 111, CO2 16, BUN of 57, and creatinine of 3.61. Patient has been tolerating oral intake, although she does need supervision and assistance with it. No episodes of choking or coughing were noted. His abdominal wounds actually show improvement in the amount of healing, according to the wound care service. They're currently covered with dressings, urine culture has been sent. Abdomen is soft, there has been no vomiting, no diarrhea. The status of his CPAP device at the [facility] is unknown, however reviewing his sleep study from several years ago is apparent that patient has severe sleep apnea with AHI score of 55 and up to 90 during the REM sleep. Current settings on his CPAP device are unknown, we will try to get a hold of the ECF to inquire about that Objective - Vital Signs Vital signs: Vital Signs Temp 98.1 F 01/13/21 08:00 Pulse 112 H 01/13/21 08:52 Resp 22 01/13/21 08:00 BP 106/71 01/13/21 08:00 Pulse Ox 93 L 01/13/21 08:00 Intake & Output 01/12/21 01/13/21 01/13/21 18:59 06:59 18:59 Intake Total 118 480 120 Output Total 400 Balance 118 80 120 Weight 126 kg 127 kg Intake: Oral 118 480 120 Output: Urine 400 Other: Voiding Method Indwelling Catheter Indwelling Catheter Indwelling Catheter - Exam GENERAL EXAM: Lethargic, easily arousable, more arousable and today's exam at patient is providing simple answers although he is very confused 50-year-old obese white female, breathing comfortably, 2 L of oxygen pulse ox is 99%, remains in atrial flutter with RVR, with a rate of 120 BPM, patient briefly wakes up to verbal stimulation, answers one or 2 word questions and falls back asleep resting in bed comfortable in no apparent distress. HEAD: Normocephalic/atraumatic. EYES: Normal reaction of pupils, equal size. Conjunctiva pink, sclera white. NOSE: Clear with pink turbinates. THROAT: No erythema or exudates. NECK: No masses, no JVD, no thyroid enlargement, no adenopathy. CHEST: No chest wall deformity. Symmetrical expansion. LUNGS: Equal air entry with no crackles, wheeze, rhonchi or dullness. CVS: Regular rate and rhythm, normal S1 and S2, no gallops, no murmurs, no rubs ABDOMEN: Soft, nontender. No hepatosplenomegaly, normal bowel sounds, no guarding or rigidity. Multiple superficial healing wounds on the left abdomen, covered with a dressing, minimal drainage, nonpurulent. Large incisional hernia on the right abdomen EXTREMITIES: No clubbing, no edema, no cyanosis, 2+ pulses and upper and lower extremities. MUSCULOSKELETAL: Muscle strength and tone normal. SPINE: No scoliosis or deformity SKIN: No rashes CENTRAL NERVOUS SYSTEM: Lethargic, 50-year-old obese white male,, No focal deficits, tone is normal in all 4 extremities. - Labs CBC & Chem 7: 01/13/21 06:47 01/13/21 06:47 Labs: Abnormal Lab Results - Last 24 Hours (Table) 01/12/21 01/12/21 01/12/21 Range/Units 17:01 17:19 17:47 WBC (3.8-10.6) k/uL Hgb (13.0-17.5) gm/dL RDW (11.5-15.5) % Plt Count (150-450) k/uL Lymphocytes # (1.0-4.8) k/uL Chloride (98-107) mmol/L Carbon Dioxide (22-30) mmol/L BUN (9-20) mg/dL Creatinine (0.66-1.25) mg/dL Glucose (74-99) mg/dL POC Glucose (mg/dL) 67 L 64 L 65 L (75-99) mg/dL 01/12/21 01/12/21 01/13/21 Range/Units 18:04 18:19 06:47 WBC (3.8-10.6) k/uL Hgb (13.0-17.5) gm/dL RDW (11.5-15.5) % Plt Count (150-450) k/uL Lymphocytes # (1.0-4.8) k/uL Chloride 111 H (98-107) mmol/L Carbon Dioxide 16 L (22-30) mmol/L BUN 57 H (9-20) mg/dL Creatinine 3.61 H (0.66-1.25) mg/dL Glucose 102 H (74-99) mg/dL POC Glucose (mg/dL) 67 L 387 H (75-99) mg/dL 01/13/21 Range/Units 06:47 WBC 3.2 L (3.8-10.6) k/uL Hgb 12.9 L (13.0-17.5) gm/dL RDW 22.7 H (11.5-15.5) % Plt Count 134 L (150-450) k/uL Lymphocytes # 0.8 L (1.0-4.8) k/uL Chloride (98-107) mmol/L Carbon Dioxide (22-30) mmol/L BUN (9-20) mg/dL Creatinine (0.66-1.25) mg/dL Glucose (74-99) mg/dL POC Glucose (mg/dL) (75-99) mg/dL Microbiology - Last 24 Hours (Table) 01/12/21 15:58 Urine Culture - Preliminary Urine,Catheterized Assessment and Plan Plan: Assessment: #1. Altered mental status, multifactorial, related to metabolic encephalopathy, neurology consultation is pending, brain CT showed no acute findings #2. Dehydration due to poor oral intake #3. Hypernatremia related to dehydration, and free water deficit, improving #4. Hypoglycemia, treated with 50% dextrose, improved #5. Interstitial edema on the chest x-ray, possibility of pneumonia is unlikely, and the findings were felt to be more consistent with mild fluid overload and exacerbation of diastolic CHF #6. Resident of a local ECF #7. Nonhealing chronic abdominal wounds #8. History of bowel resection related to abdominal sepsis and colonic abscess #9. Obstructive sleep apnea, severe, AHI score of 55, and 92 during REM sleep. Compliance and current settings of the CPAP are unknown #10. Morbid obesity #11. Chronic A. fib on Eliquis #12. History of hypertension #13. Hyperlipidemia #14. History of coronary artery disease status post PCI and stenting of the circumflex and LAD #15. History of a DVT #16. Acute kidney injury related to ATN #17. Chronic kidney disease stage III Plan: No clear evidence of pneumonia Follow-up chest x-ray reviewed showing evidence of mild fluid overload However clinically patient appears to be in no acute distress, requiring to minimal supplemental oxygen Mentation is still significantly confused His sleep apnea study from several years ago showed severe obstructive sleep apnea We'll inquire with ECF his current CPAP setting and his current compliance he will need CPAP at bedtime, and as needed during the day Continue with antibiotics right now although we do not see a clear evidence of pneumonia We'll continue to follow I performed a history & physical examination of the patient and discussed their management with my nurse practitioner, Paola Tompkins. I reviewed the nurse practitioner's note and agree with the documented findings and plan of care. Lung sounds are positive for clear breath. The findings and the impression was discussed with the patient. I attest to the documentation by the nurse practitioner. Time with Patient: Less than 30
[2021-01-13 12:18] LABS: Glucose,Whole Blood 89 mg/dL (75-99)
--- NOTE | 2021-01-13 12:20 | CDI ---
Documentation Clarification Form Date: 01/13/2021 12:08:16 PM From: Verenice Bryan RN CCDS Admit Date: 01/12/2021 11:57:00 AM Patient Name: Maximo Cerna Visit Number: [id number] Discharge Date: ATTENTION: The Clinical Documentation Specialists (CDI) and [facility] Coding Staff appreciate your assistance in clarifying documentation. Please respond to the clarification below the line at the bottom and electronically sign. The CDI & [facility] Coding staff will review the response and follow-up if needed. Please note: Queries are made part of the Legal Health Record. If you have any questions, please contact the author of this message via ITS. Dr. John Buckner Buttock, stage II pressure ulcer is documented by Nursing 01/12, wound assessment. Based on this information and the findings below, is there an additional diagnosis that is clinically appropriate for this patient? History/Risk Factors: 50-year-old male presents to the ED with altered mental status. Medical history: HFpEF, Paroxysmal Afib, and CKD IV. H&P 01/11. Clinical Indicators: Location: Buttock Wound description: no drainage. Treatment: 01/12 Absorbent Underpad; Barrier protection; Barrier Protection; Turn Q2 , to present. Is there an additional diagnosis that is clinically appropriate for this patient? [ x ] Buttock Pressure Ulcer Stage 2 present on admission [ ] Other condition, please specify [ ] Unable to determine Clinical Definitions: Stage 1 Pressure Ulcer: intact skin, non-blanching redness of local area Stage 2 Pressure Ulcer: Partial thickness, loss of dermis, pink wound bed Stage 3 Pressure Ulcer: Full thickness tissue loss Stage 4 Pressure Ulcer: Full thickness tissue loss with exposed bone, tendon, or muscle. Unstageable pressure ulcer: Full thickness tissue loss in which the base of the ulcer is covered by slough (yellow, vega, bolton, green or brown) and/or eschar (vega, brown or black) in the wound bed. (Template Last Revised: August 2020) DESIRE
--- NOTE | 2021-01-13 13:02 | PN ---
PROGRESS NOTE Patient is seen for followup for acute kidney injury on top of chronic kidney disease. Patient was admitted to the hospital with increased weakness, mental status changes. His serum creatinine was 3.79, which was slightly better from 4.4 on 01/03/2021. Patient has underlying CKD with previous creatinine around 2.1-2.3 mg/dL. He is currently maintained on IV fluids. PHYSICAL EXAMINATION: On examination today, blood pressure 108/57, heart rate 104 per minute. He is afebrile. Examination of the heart S1, S2. Examination of the lungs, bilateral breath sounds are heard. Abdomen is soft, nontender, obese. His incision is currently dressed. Examination of lower extremities shows chronic skin changes. No edema noted. [employer]ACH[employer] WORK[employer] exam grossly intact. LABS: Show sodium 143, potassium 4.0, chloride 111, CO2 16, BUN 57, serum creatinine 3.6, hemoglobin 12.9 g/dL. ASSESSMENT: 1. Acute kidney injury prerenal associated with hypotension, hypoperfusion and hypovolemia, maintained on IV fluids. 2. Chronic kidney disease stage 3B to 4 with serum creatinine 1.9-2 in earlier part of 2020 but most recently staying about 2.6-2.7 as of October of 2020. Currently with indwelling Swain catheter. Serum creatinine slightly better. Continue with IV fluids. 3. Mild metabolic acidosis associated with renal failure switched to IV bicarb. 4. Pneumonia on chest x-ray with right lower lobe infiltrate, maintained on empiric antibiotics. 5. History of diastolic heart failure, currently not in failure. PLAN: Change IV fluids to IV bicarb. Continue to hold off on diuretics. Continue antibiotics. Repeat labs in a.m. MMODL / IJN: [id number] /
--- NOTE | 2021-01-13 13:36 | P.PN ---
Subjective This is a 50-year-old male past medical history significant for coronary artery disease status post PCI to the circumflex and LAD with a total occlusion of the RCA, hypertension, dyslipidemia, persistent atrial fibrillation, chronic kidney disease, morbid obesity and chronic nicotine dependence, multiple GI surgeries for hernia. He follows in the office with Dr. Wood. We have been asked to see in consultation for AAlex estrada with RVR and heart failure. Apparently patient has had increased stress due to the COVID-19 pandemic and his mother . He has slowly declined. He is currently at a [place] [facility]. Patient is a poor historian, unable to indicate why he came to the emergency department. Apparently over the last several days, care staff at the [place] [facility] became concerned due to altered mental status. And patient was sent to the emergency department. EKG revealed atrial fibrilation, heart rate 112. Laboratory data on admission, WBC 3.1, hemoglobin 12.5, platelets 110, sodium 147, potassium 3.9, BUN 57, serum creatinine 3.7, magnesium 2.1, BNP 26,500 previously 35,000 01/13/21: Patient seen and examined at bedside, no acute distress. Denies chest pain or shortness of breath or palpitations. Does have some mild abdominal pain he states that he is "trying to ignore" He is alert and oriented to person only. Te lemetry reviewed he is in atrial fibrillation HR 100-115. Patient underwent EEG yesterday which was abnormal due to background slowing of at least moderate to severe degree. Suggestive of generalized cerebral dysfunction as seen with toxic metabolic encephalopathy or due to diffuse structural brain abnormality. Patient started on IV fluids and IV bicarb. Laboratory data reviewed, WBC 3.2, hemoglobin 12.9, platelets 134, sodium 143, potassium 4.0, BUN 57, serum creatinine 3.6, total bilirubin 2, repeat 1.9 . Patient currently maintained on Eliquis 5 mg twice daily, atorvastatin 40 mg nightly, metoprolol titrate 25 mg twice a day. PHYSICAL EXAMINATION Blood pressure 105/70 heart rate 117 afebrile and maintaining oxygen saturation on nasal cannula. CONSTITUTIONAL: No apparent distress. Morbidly obese. HEENT: Head is normocephalic. No JVD. No carotid bruit. CHEST EXAMINATION: Lungs diminished bilaterally, no wheezes or rhonchi. No chest wall tenderness is noted on palpation or with deep breathing. HEART EXAMINATION: Irregular rate and rhythm. S1, S2 heard. Systolic ejection murmur at the base, no gallops or rub. ABDOMEN: Soft, Left sided wound covered with dressing. Positive bowel sounds. EXTREMITIES: 2+ peripheral pulses, Bilateral legs with venous insufficiency, bilateral ecchymosis. and no calf tenderness. NEUROLOGIC EXAMINATION: Patient is awake, alert, oriented to person only. ASSESSMENT Chronic persistent atrial fibrillation with rapid ventricular response Chronic diastolic heart failure Hypernatremia Altered Mental Status, likely multifactorial Acute on Chronic kidney disease Coronary artery disease status post PCI to the circumflex and LAD with a total occlusion of the RCA History of Hypertension Dyslipidemia Type 2 Diabetes mellitus COPD Morbid obesity Medication noncompliance Chronic nicotine dependence PLAN Will continue to Hold off on IV Lasix due to worsening kidney function and hypernatremia Continue metoprolol tartrate 25mg BID Start amiodarone 400mg BID for 7 days Follow renal function and electrolytes in the morning. Continue eliquis for thromboembolic protection. Ongoing telemetry monitoring. Nephrology following appreciate recs Neurology following appreciate recs Further recommendations to follow based upon clinical course. Objective - Vital Signs Vital signs: Vital Signs Temp 98.1 F 01/13/21 08:00 Pulse 112 H 01/13/21 08:52 Resp 22 01/13/21 08:00 BP 106/71 01/13/21 08:00 Pulse Ox 93 L 01/13/21 08:00 Intake & Output 01/12/21 01/13/21 01/13/21 18:59 06:59 18:59 Intake Total 118 480 120 Output Total 400 Balance 118 80 120 Weight 126 kg 127 kg Intake: Oral 118 480 120 Output: Urine 400 Other: Voiding Method Indwelling Catheter Indwelling Catheter Indwelling Catheter - Labs CBC & Chem 7: 01/13/21 06:47 01/13/21 06:47 Labs: Abnormal Lab Results - Last 24 Hours (Table) 01/12/21 01/12/21 01/12/21 Range/Units 17:01 17:19 17:47 WBC (3.8-10.6) k/uL Hgb (13.0-17.5) gm/dL RDW (11.5-15.5) % Plt Count (150-450) k/uL Lymphocytes # (1.0-4.8) k/uL Chloride (98-107) mmol/L Carbon Dioxide (22-30) mmol/L BUN (9-20) mg/dL Creatinine (0.66-1.25) mg/dL Glucose (74-99) mg/dL POC Glucose (mg/dL) 67 L 64 L 65 L (75-99) mg/dL 01/12/21 01/12/21 01/13/21 Range/Units 18:04 18:19 06:47 WBC (3.8-10.6) k/uL Hgb (13.0-17.5) gm/dL RDW (11.5-15.5) % Plt Count (150-450) k/uL Lymphocytes # (1.0-4.8) k/uL Chloride 111 H (98-107) mmol/L Carbon Dioxide 16 L (22-30) mmol/L BUN 57 H (9-20) mg/dL Creatinine 3.61 H (0.66-1.25) mg/dL Glucose 102 H (74-99) mg/dL POC Glucose (mg/dL) 67 L 387 H (75-99) mg/dL 01/13/21 Range/Units 06:47 WBC 3.2 L (3.8-10.6) k/uL Hgb 12.9 L (13.0-17.5) gm/dL RDW 22.7 H (11.5-15.5) % Plt Count 134 L (150-450) k/uL Lymphocytes # 0.8 L (1.0-4.8) k/uL Chloride (98-107) mmol/L Carbon Dioxide (22-30) mmol/L BUN (9-20) mg/dL Creatinine (0.66-1.25) mg/dL Glucose (74-99) mg/dL POC Glucose (mg/dL) (75-99) mg/dL Microbiology - Last 24 Hours (Table) 01/12/21 15:58 Urine Culture - Preliminary Urine,Catheterized
[2021-01-13 15:27] LABS: Folate, Serum 17.3 ng/mL
[2021-01-13] MEDS: AMIODARONE 200 MG TAB PO SCH ×2 (15:31→20:26)
[2021-01-13 17:21] LABS: Glucose,Whole Blood 78 mg/dL (75-99)
[2021-01-13] MEDS ORDERED: LEVOFLOXACIN 750MG-D5W PMX 750 MG in DEXTROSE/WATER 1 150ML.BAG IVPB SCH (18:00)
[2021-01-13] MEDS: LEVOTHYROXINE 25 MCG TAB PO SCH (20:26)
[2021-01-13] MEDS: SERTRALINE 50 MG TAB PO SCH (20:26)
[2021-01-13] MEDS: ATORVASTATIN 40 MG TAB PO SCH (20:26)
[2021-01-13] MEDS: MULTIVITAMINS, THERA 1 EACH TAB PO SCH (20:27)
[2021-01-13 20:43] LABS: Glucose,Whole Blood 85 mg/dL (75-99)
[2021-01-13 23:51] LABS: Glucose,Whole Blood 80 mg/dL (75-99)
[2021-01-14] MEDS: IPRATROPIUM-ALBUTEROL 3 ML NEB INHALATION SCH ×4 (01:15→18:59)
[2021-01-14] MEDS: DEXTROSE 5% IN WATER 1,000 ML with SODIUM BICARB (1 MEQ/ML) 150 ML IV SCH ×2 (01:58→05:48)
[2021-01-14 06:02] LABS: Glucose,Whole Blood 81 mg/dL (75-99)
[2021-01-14 08:07] LABS: Glucose,Whole Blood 84 mg/dL (75-99)
[2021-01-14] MEDS: APIXABAN 5 MG TAB PO SCH ×2 (08:12→20:18)
[2021-01-14] MEDS: METOPROLOL TARTRATE 12.5 MG TAB PO SCH (08:12)
[2021-01-14] MEDS: AMIODARONE 200 MG TAB PO SCH ×2 (08:13→20:18)
[2021-01-14] MEDS: SENNOSIDES 8.6 MG TAB PO SCH ×2 (08:13→20:18)
[2021-01-14] MEDS: buPROPion XL 150 MG TAB.ER.24H PO SCH (08:13)
--- NOTE | 2021-01-14 10:42 | P.PN ---
Subjective This is a 50-year-old male past medical history significant for coronary artery disease status post PCI to the circumflex and LAD with a total occlusion of the RCA, hypertension, dyslipidemia, persistent atrial fibrillation, chronic kidney disease, morbid obesity and chronic nicotine dependence, multiple GI surgeries for hernia. He follows in the office with Dr. Wood. We have been asked to see in consultation for AAlex estrada with RVR and heart failure. Apparently patient has had increased stress due to the COVID-19 pandemic and his mother . He has slowly declined. He is currently at a [facility]. Patient is a poor historian, unable to indicate why he came to the emergency department. Apparently over the last several days, care staff at the [facility] became concerned due to altered mental status. And patient was sent to the emergency department. EKG revealed atrial fibrilation, heart rate 112. Laboratory data on admission, WBC 3.1, hemoglobin 12.5, platelets 110, sodium 147, potassium 3.9, BUN 57, serum creatinine 3.7, magnesium 2.1, BNP 26,500 previously 35,000 01/13/21: Patient seen and examined at bedside, no acute distress. Denies chest pain or shortness of breath or palpitations. Does have some mild abdominal pain he states that he is "trying to ignore" He is alert and oriented to person only. T elemetry reviewed he is in atrial fibrillation HR 100-115. Patient underwent EEG yesterday which was abnormal due to background slowing of at least moderate to severe degree. Suggestive of generalized cerebral dysfunction as seen with toxic metabolic encephalopathy or due to diffuse structural brain abnormality. Patient started on IV fluids and IV bicarb. Laboratory data reviewed, WBC 3.2, hemoglobin 12.9, platelets 134, sodium 143, potassium 4.0, BUN 57, serum creatinine 3.6, total bilirubin 2, repeat 1.9 . Patient currently maintained on Eliquis 5 mg twice daily, atorvastatin 40 mg nightly, metoprolol titrate 25 mg twice a day. 01/14 Patient seen and examined. Patient was placed on a bicarb drip. Bicarbonate level yesterday 16. Labs pending from today. Patient remains confused and denies any chest pain or pressure. Does appear to have some mild tachypnea however denies shortness breath. PHYSICAL EXAMINATION Vitals reviewed CONSTITUTIONAL: No apparent distress. Morbidly obese. HEENT: Head is normocephalic. No JVD. No carotid bruit. CHEST EXAMINATION: Lungs diminished bilaterally, no wheezes or rhonchi. No chest wall tenderness is noted on palpation or with deep breathing. HEART EXAMINATION: Irregular rate and rhythm. S1, S2 heard. Systolic ejection murmur at the base, no gallops or rub. ABDOMEN: Soft, Left sided wound covered with dressing. Positive bowel sounds. EXTREMITIES: 2+ peripheral pulses, Bilateral legs with venous insufficiency, bilateral ecchymosis. and no calf tenderness. NEUROLOGIC EXAMINATION: Patient is awake, alert, oriented to person only. ASSESSMENT Chronic persistent atrial fibrillation with rapid ventricular response Chronic diastolic heart failure Hypernatremia Altered Mental Status, likely multifactorial Acute on Chronic kidney disease Coronary artery disease status post PCI to the circumflex and LAD with a total occlusion of the RCA History of Hypertension Dyslipidemia Type 2 Diabetes mellitus COPD Morbid obesity Medication noncompliance Chronic nicotine dependence PLAN Continue amiodarone. Some of elevated HR's may be related to anxiety, confusion. Follow renal function and electrolytes in the morning. Bicarb per nephro. Continue eliquis for thromboembolic protection. Ongoing telemetry monitoring. Further recommendations to follow based upon clinical course. Objective - Vital Signs Vital signs: Vital Signs Temp 98.8 F 01/14/21 08:02 Pulse 128 H 01/14/21 08:02 Resp 19 01/14/21 08:02 BP 127/61 01/14/21 08:02 Pulse Ox 97 01/14/21 08:02 Intake & Output 01/13/21 01/14/21 01/14/21 18:59 06:59 18:59 Intake Total 600 480 240 Output Total 350 601 Balance 250 -121 240 Weight 130 kg Intake: Oral 600 480 240 Output: Urine 350 600 Uretheral (Swain) 350 200 Stool 1 Other: Voiding Method Indwelling Catheter Indwelling Catheter Indwelling Catheter # Bowel Movements 1 - Labs CBC & Chem 7: 01/13/21 06:47 01/13/21 06:47 Labs: Abnormal Lab Results - Last 24 Hours (Table) 01/11/21 01/13/21 Range/Units 22:02 06:47 Total Bilirubin 1.9 H (0.2-1.3) mg/dL Vitamin B12 1010.0 H (200.0-944.0) pg/mL Microbiology - Last 24 Hours (Table) 01/12/21 15:58 Urine Culture - Final Urine,Catheterized
[2021-01-14] MEDS ORDERED: FUROSEMIDE 10 MG/ML 10 ML VIAL IV STA (11:07)
--- NOTE | 2021-01-14 11:09 | P.PN ---
Subjective Progress Note Date: 01/14/21 A 50-year-old white male patient with multiple medical problems including hypertension, hyperlipidemia, chronic atrial fibrillation, this episode of myocardial infarction CHF with diastolic dysfunction, coronary artery disease, COPD, diabetes mellitus type 2, sleep apnea, hypothyroidism, history of DVT, and chronic nonhealing abdominal wounds. Patient has a history of colonic abscess with a bowel resection. We saw the patient in consultation in October 2020 when he was hospitalized with acute exacerbation of CHF. On 01/11/2021 patient presented to the emergency department per EMS for evaluation of altered mental status. Patient is a poor historian. [facility] Apparently she was having decreased appetite, and increased lethargy and confusion. There is no reported fever or difficulty breathing, no cough, no chest discomfort. Most of the history is obtained from the chart, patient is lethargic, and there is no family around. It's unclear whether or not he wears oxygen and CPAP at the shelter. Brain CT showed the ventricles, basal cisterns and sulci overlying the cerebral convexities demonstrating mild enlargement of the patient's age group. Chest x-ray showed right lower lobe infiltrate. Lab work showed a white blood cell count of 3.2, hemoglobin of 12 .4, INR is 1.4, sodium is 147, potassium is 4.2, chloride is 113, CO2 17, BUN is 57, creatinine is 3.79, showing acute kidney injury, hyponatremia, dehydration. His proBNP came back at 26,005 100, troponin was negative at less than 0.012, LFTs were within normal limits, pro-calcitonin level was 0.38, urinalysis showed large amount of blood, 1+ protein, rare bacteria and mucus, but no clear eviden ce of urinary tract infection. Urine drug screen was negative. Patient has been afebrile since admission, blood pressure is stable, no hypotension, EKG showed atrial flutter with variable AV block, with a rate of 112 BPM, and nonspecific ST and T-wave abnormality. Of note patient was hypoglycemic in the emergency department but sugar of 66, and 1 amp of 50% dextrose was given with subsequent improvement of patient's blood sugars. Lung sounds are essentially clear, patient briefly wakes up, he denies any cough or congestion, no phlegm production. He is not able to tell us whether or not he wears CPAP at home as he is falling asleep. He does have superficial healing wounds on his abdomen which are covered with dressing, he is on Eliquis for history of chronic atrial fibrillation. Vital signs are stable right now. Started on Levaquin empirically, she did receive 500 mL fluid bolus in the emergency department. Neurology evaluation was requested and is pending at this time, EEG is pending, cardiology is consulted, 2-D echocardiogram has been ordered. Wound services are following in regards to the chronic abdominal wounds and patient has a sacral wound as well. Today's evaluation on 01/13/2021 patient seen in follow-up on selective care. He is still very confused, he is awake, he is arousable, however she makes poor eye contact, he thinks he is in [place], he thought there was a word sitting on his foot, he thinks he lives in [place] by himself in a house. Room air pulse ox was noted to be around 76 and subsequently patient was placed on 2 L of oxygen and pulse ox improved to 100%. He appears to be breathing comfortably, no cough, no congestion, no complaints of chest discomfort. No evidence of respiratory distress. EEG was done and showed abnormal EEG, due to background slowing of at least moderate to severe degree suggestive of generalized cerebral dysfunction related to sick metabolic encephalopathy. There were no focal or generalized epileptiform activity seen on the EEG. Brain CT on admission showed enlargement of the ventricles, basal cisterns and sulci with no evidence of intracranial hemorrhage or sulcal effacement. Repeat chest x-ray was reviewed showing interstitial edema though infiltrates of other etiology were not completely excluded, nevertheless patient is covered with empiric antibiotics in the form of Levaquin. he had no fever or chills, today's labs have been reviewed, his white blood cell count is stable at 3.2, hemoglobin is 12.9, sodium is 143, potassium is 4.0, chloride is 111, CO2 16, BUN of 57, and creatinine of 3.61. Patient has been tolerating oral intake, although she does need supervision and assistance with it. No episodes of choking or coughing were noted. His abdominal wounds actually show improvement in the amount of healing, according to the wound care service. They're currently covered with dressings, urine culture has been sent. Abdomen is soft, there has been no vomiting, no diarrhea. The status of his CPAP device at the shelter is unknown, however reviewing his sleep study from several years ago is apparent that patient has severe sleep apnea with AHI score of 55 and up to 90 during the REM sleep. Current settings on his CPAP device are unknown, we will try to get a hold of the ECF to inquire about that 01/14/2021, the patient is being seen in follow-up. As mentioned earlier, he is a 50-year-old male patient with extensive comorbidities including CHF, diastolic heart failure, chronic atrial fibrillation, morbid obesity, obstructive sleep apnea, hypertension, previous history of ME, and massive and several abdominal surgeries work requiring bowel resection and currently his abdominal wall is essentially loose and there is obvious dehiscence of the abdominal muscles with some superficial wounds have been nonhealing for quite sometime. The patient came to with worsening appetite, diminished level of consciousness, and some difficulty breathing. His echocardiogram is showing an ejection fraction of 35- 40% and there is a combination of systolic and diastolic heart failure. He has also not to moderate RV enlargement, normal LV, moderate mitral regurgitation, P A pressures 37. Earlier this morning he was found to be in nature fibrillation with rapid ventricular response. He is currently on 05 mg by mouth twice a day for rate control. He is also on metoprolol 25 mg by mouth twice a day he had his chest x-rays showing pulmonary vessel congestion. Some limited effusion lung bases bilaterally. He remains on 2 L of oxygen by nasal cannula. No clear signs of pneumonia. No cough or congestion. He is on Levaquin as an empiric antibiotic coverage. He does have chronic edema lower extremities bilaterally. His mentation is still altered and he waxes and wanes. He was able to communicate with me. He is not cooperative. Doesn't volunteer any significant information. Neurologist on the case. EEG was abnormal and there is cerebral dysfunction consistent with encephalopathy. Objective - Vital Signs Vital signs: Vital Signs Temp 98.8 F 01/14/21 08:02 Pulse 128 H 01/14/21 08:02 Resp 19 01/14/21 08:02 BP 127/61 01/14/21 08:02 Pulse Ox 97 01/14/21 08:02 Intake & Output 01/13/21 01/14/21 01/14/21 18:59 06:59 18:59 Intake Total 600 480 240 Output Total 350 601 Balance 250 -121 240 Weight 130 kg Intake: Oral 600 480 240 Output: Urine 350 600 Uretheral (Swain) 350 200 Stool 1 Other: Voiding Method Indwelling Catheter Indwelling Catheter Indwelling Catheter # Bowel Movements 1 - Exam GENERAL EXAM: Lethargic, easily arousable, more arousable and today's exam at patient is providing simple answers although he is very confused 50-year-old obese white female, breathing comfortably, 2 L of oxygen pulse ox is 99%, remains in atrial flutter with RVR, with a rate of 120-130 BPM, patient briefly wakes up to verbal stimulation, answers one or 2 word questions and falls back asleep resting in bed comfortable in no apparent distress. HEAD: Normocephalic/atraumatic. EYES: Normal reaction of pupils, equal size. Conjunctiva pink, sclera white. NOSE: Clear with pink turbinates. THROAT: No erythema or exudates. NECK: No masses, no JVD, no thyroid enlargement, no adenopathy. CHEST: No chest wall deformity. Symmetrical expansion. LUNGS: Equal air entry with no crackles, wheeze, rhonchi or dullness. CVS: Regular rate and rhythm, normal S1 and S2, no gallops, no murmurs, no rubs ABDOMEN: Soft, nontender. No hepatosplenomegaly, normal bowel sounds, no guarding or rigidity. Multiple superficial healing wounds on the left abdomen, covered with a dressing, minimal drainage, nonpurulent. Large incisional hernia on the right abdomen EXTREMITIES: No clubbing, no edema, no cyanosis, 2+ pulses and upper and lower extremities. MUSCULOSKELETAL: Muscle strength and tone normal. SPINE: No scoliosis or deformity SKIN: No rashes CENTRAL NERVOUS SYSTEM: Lethargic, generalized weakness in all 4 extremities. Nonambulatory. Mentation is abnormal as the patient is on off confused and encephalopathic. He is able to follow simple commands and answer some simple questions for now. - Labs CBC & Chem 7: 01/13/21 06:47 01/13/21 06:47 Labs: Abnormal Lab Results - Last 24 Hours (Table) 01/11/21 01/13/21 Range/Units 22:02 06:47 Total Bilirubin 1.9 H (0.2-1.3) mg/dL Vitamin B12 1010.0 H (200.0-944.0) pg/mL Microbiology - Last 24 Hours (Table) 01/12/21 15:58 Urine Culture - Final Urine,Catheterized Assessment and Plan Plan: #1. Altered mental status, multifactorial, related to metabolic encephalopathy, neurology consultation is pending, brain CT showed no acute neuro workup is in progress. Consider underlying CVA. #2. Atrial fibrillation with rapid ventricular response, heart dizziness poorly controlled. Patient is diagnosed to have systolic heart failure with ejection fraction of 35%. He also has a component of diastolic heart failure. Pulmonary artery pressure mildly elevated. #3. Hypernatremia related to dehydration, improved with replacement of the family water deficit, Hypoglycemia, treated with 50% dextrose, improved #4. Systolic heart failure with an ejection fraction of 30-35 percent, please refer to the echocardiogram #5. Interstitial edema on the chest x-ray, possibility of pneumonia is unlikely, and the findings were felt to be more consistent with mild fluid overload and exacerbation of diastolic CHF #6. Resident of a local ECF #7. Nonhealing chronic abdominal wounds #8. History of bowel resection related to abdominal sepsis and colonic abscess #9. Obstructive sleep apnea, severe, AHI score of 55, and 92 during REM sleep. Compliance and current settings of the CPAP are unknown #10. Morbid obesity #11. Chronic A. fib on Eliquis #12. History of hypertension #13. Hyperlipidemia #14. History of coronary artery disease status post PCI and stenting of the circumflex and LAD #15. History of a DVT #16. Acute kidney injury related to ATN on top of a chronic stage III kidney disease #17. Chronic kidney disease stage III Plan: No obvious signs of pneumonia. Chest x-ray is more consistent with CHF and interstitial edema, chest x-ray reviewed showing evidence of mild fluid overload Monitor the oxygenation and the patient is currently on 2 L of oxygen by nasal cannula. Given a dose of Lasix 60 mg IV push Continue amiodarone and digoxin will be also added by cardiology for rate co ntrol in combination with metoprolol Monitor atrial fibrillation Continue with antibiotics right now although we do not see a clear evidence of pneumonia Neurology regarding his mental status change Corrected bicarb deficit and the patient is currently on bicarbonate infusion at 75 mL an hour Continue anticoagulation We'll continue to follow We'll continue to follow
--- NOTE | 2021-01-14 11:22 | P.PN ---
Subjective Progress Note Date: 01/14/21 Continued confusion. HRs still uncontrolled. At baseline oxygen status. On Bicarb gtt for renal dysfunction. On abx, though low suspicion of infectious state. I lean toward diastolic heart failure causing pulmonary edema and favor a volume neutral or negative strategy. Objective - Vital Signs Vital signs: Vital Signs Temp 98.8 F 01/14/21 08:02 Pulse 128 H 01/14/21 08:02 Resp 19 01/14/21 08:02 BP 127/61 01/14/21 08:02 Pulse Ox 97 01/14/21 08:02 Intake & Output 01/13/21 01/14/21 01/14/21 18:59 06:59 18:59 Intake Total 600 480 240 Output Total 350 601 Balance 250 -121 240 Weight 130 kg Intake: Oral 600 480 240 Output: Urine 350 600 Uretheral (Vu) 350 200 Stool 1 Other: Voiding Method Indwelling Catheter Indwelling Catheter Indwelling Catheter # Bowel Movements 1 - Exam Gen: awake, alert, A+O x 1 HEENT: normocephalic, atraumatic, good hearing acuity, moist mucous membranes Resp: diminished air exchange, diffuse wheezing, crackles in the right lower base. CVS: good distal perfusion x 4, irregular rhythm, tachycardiac GI: soft, NTTP, ND : no SPT, no CVAT, vu catheter not present MSK: + b/l pitting edema, no clubbing Neuro: non-focal, moving all extremities - Labs CBC & Chem 7: 01/13/21 06:47 01/13/21 06:47 Labs: Abnormal Lab Results - Last 24 Hours (Table) 01/11/21 01/13/21 Range/Units 22:02 06:47 Total Bilirubin 1.9 H (0.2-1.3) mg/dL Vitamin B12 1010.0 H (200.0-944.0) pg/mL Microbiology - Last 24 Hours (Table) 01/12/21 15:58 Urine Culture - Final Urine,Catheterized Assessment and Plan Assessment: Acute on chronic respiratory failure with hypoxia Toxic/metabolic encephalopathy Chronic heart failure, with preserved ejection fraction Suspected pneumonia in the right lower lobe COPD exacerbation RAYSA superimposed on CKD stage IV Paroxysmal atrial fibrillation with rapid ventricular response Hyperlipidemia Depression Hypothyroidism Chronic abdominal wound Plan: -Admit patient to telemetry, inpatient -Oxygen when necessary -DuoNeb's q6h + when necessary -Levofloxacin, day 37 -Follow up pro-calcitonin = 0.38 -Follow up UCx -Care center UA growing VRSA; patient isolated with contact precautions, repeat UCx negative -can stop contact precautions -Pulmonary consult, appreciate recs -Cardiology consult -Lasix 60 mg IV twice a day d/c'd 01/12 by cardiology -home metoprolol increased from 12.5mg BID to 25mg BID -added amiodarone and digoxin -Nephrology consult -now on D5/150mEq Bicarb gtt at 75cc/hr by nephrology -Neurology consult regarding CTH findings in context of gradually declining mental baseline -EEG negative for epileptic focus; B12 = 1010, folate = 17.3, MMA = pending, Treponema Ab = non-reactive -Continue home lipitor -Continue home Eliquis -Continue home sertraline, Wellbutrin -Continue home levothyroxine -Wound care consult Pt is DNR/DNI -attempted to call on 01/12, but no response -attempted to call on 01/13, but no response, left a voicemail -touched base with Fer (Nephew) today, he has discussed code status with family and would like to convert patient to DNR/DNI DVT PPx covered with Dilip Gonzales is pending paperwork for DPOA Dispo: back to care center after medically cleared
[2021-01-14] MEDS: DIGOXIN 125 MCG TAB PO SCH (12:02)
[2021-01-14 12:06] LABS: Glucose,Whole Blood 85 mg/dL (75-99)
--- NOTE | 2021-01-14 14:17 | P.PN ---
Subjective Progress Note Date: 01/14/21 Follow-up for acute kidney injury. No new labs today. Objective - Vital Signs Vital signs: Vital Signs Temp 98.5 F 01/14/21 11:57 Pulse 102 H 01/14/21 12:30 Resp 24 01/14/21 11:57 BP 127/80 01/14/21 11:57 Pulse Ox 97 01/14/21 08:02 Intake & Output 01/13/21 01/14/21 01/14/21 18:59 06:59 18:59 Intake Total 600 480 240 Output Total 350 601 Balance 250 -121 240 Weight 130 kg Intake: Oral 600 480 240 Output: Urine 350 600 Uretheral (Swain) 350 200 Stool 1 Other: Voiding Method Indwelling Catheter Indwelling Catheter Indwelling Catheter # Bowel Movements 1 - Exam No acute distress S1-S2 heard Decreased breath sounds Edema Swain - Labs CBC & Chem 7: 01/13/21 06:47 01/13/21 06:47 Labs: Abnormal Lab Results - Last 24 Hours (Table) 01/11/21 Range/Units 22:02 Vitamin B12 1010.0 H (200.0-944.0) pg/mL Microbiology - Last 24 Hours (Table) 01/12/21 15:58 Urine Culture - Final Urine,Catheterized Assessment and Plan Assessment: #1 acute kidney injury suspect prerenal physiology. #2 CK D stage IIIB/4 with a baseline creatinine around 2.0 MG per DL earlier in the year, lately around 2.6-2.7 MG per DL. #3 volume overload #4 metabolic acidosis #5 pneumonia on antibiotics #6 diastolic CHF Plan: #1 currently appears overloaded. Stopped bicarb drip. #2 was given Lasix 60 mg IV push once today at 40 mg IV 3 times a day. #3 labs in the morning.
[2021-01-14] MEDS ORDERED: METOPROLOL TARTRATE 5 MG/5 ML VIAL IVP ONE (15:15)
[2021-01-14] MEDS: FUROSEMIDE 10 MG/ML 4 ML VIAL IV SCH ×2 (15:45→20:18)
[2021-01-14 16:45] LABS: Glucose,Whole Blood 89 mg/dL (75-99)
[2021-01-14] MEDS: METOPROLOL TARTRATE 50 MG TAB PO SCH (17:40)
[2021-01-14] MEDS: LEVOTHYROXINE 25 MCG TAB PO SCH (20:18)
[2021-01-14] MEDS: MULTIVITAMINS, THERA 1 EACH TAB PO SCH (20:18)
[2021-01-14] MEDS: SERTRALINE 50 MG TAB PO SCH (20:18)
[2021-01-14] MEDS: ATORVASTATIN 40 MG TAB PO SCH (20:18)
[2021-01-14 21:00] LABS: Glucose,Whole Blood 90 mg/dL (75-99)
[2021-01-15] MEDS: IPRATROPIUM-ALBUTEROL 3 ML NEB INHALATION SCH ×4 (01:21→19:39)
[2021-01-15] MEDS ORDERED: VANCOMYCIN IV PER PHARMACY 1 EACH MISC MISCELLANE PRN (05:01)
[2021-01-15] MEDS ORDERED: VANCOMYCIN 2,000 MG in SODIUM CHLORIDE 0.9% 500 ML 500 ML IVPB ONE (05:15)
[2021-01-15] MEDS: METOPROLOL TARTRATE 50 MG TAB PO SCH (06:16)
[2021-01-15 06:40] LABS: Glucose,Whole Blood 82 mg/dL (75-99)
[2021-01-15 08:26] LABS: Anisocytosis Moderate; Basophils # (A) 0.1 k/uL (0-0.2); Basophils % (A) 2 %; Eosinophils # (A) 0.3 k/uL (0-0.7); Eosinophils % (A) 11 %; HGB 12.2 gm/dL (13.0-17.5); Hypochromasia Slight; Lymphocytes # (A) 0.6 k/uL (1.0-4.8); Lymphocytes % (A) 18 %; MCH 29.8 pg (25.0-35.0); MCV 90.3 fL (80.0-100.0); Macrocytosis Slight; Mean Platelet Volume 8.7; Microcytosis Slight; Monocytes # (A) 0.3 k/uL (0-1.0); Monocytes % (A) 9 %; Neutrophils # (A) 1.8 k/uL (1.3-7.7); Neutrophils % (A) 58 %; Platelet Count 102 k/uL (150-450); Poikilocytosis Slight; RDW 22.8 % (11.5-15.5); WBC 3.1 k/uL (3.8-10.6)
[2021-01-15 08:56] LABS: Calcium 9.5 mg/dL (8.4-10.2); Magnesium 1.8 mg/dL (1.6-2.3); Potassium 3.5 mmol/L (3.5-5.1)
[2021-01-15] MEDS: FUROSEMIDE 10 MG/ML 4 ML VIAL IV SCH ×2 (09:29→21:34)
[2021-01-15] MEDS: APIXABAN 5 MG TAB PO SCH ×2 (09:30→20:32)
[2021-01-15] MEDS: AMIODARONE 200 MG TAB PO SCH ×2 (09:30→21:37)
[2021-01-15] MEDS: SENNOSIDES 8.6 MG TAB PO SCH ×2 (09:30→19:44)
[2021-01-15] MEDS: buPROPion XL 150 MG TAB.ER.24H PO SCH (09:30)
--- NOTE | 2021-01-15 10:43 | P.PN ---
Subjective Progress Note Date: 01/15/21 Pt has no new copmlaints today. he is bit less interactive with me on exam. BCx so far have grown 1/4 bottles with GPCs, speciation pending. Started on vancomycin this morning. Also on levofloxacin. I still do suspect contamination. Kidney function has slightly improved in terms of creatinine, but BUN has worsened. Objective - Vital Signs Vital signs: Vital Signs Temp 98.5 F 01/15/21 09:27 Pulse 105 H 01/15/21 09:27 Resp 22 01/15/21 09:27 BP 88/61 01/15/21 09:27 Pulse Ox 98 01/15/21 09:27 Intake & Output 01/14/21 01/15/21 01/15/21 18:59 06:59 18:59 Intake Total 240 240 Output Total 850 800 Balance -610 -800 240 Weight 122 kg Intake: Oral 240 240 Output: Urine 850 800 Other: Voiding Method Indwelling Catheter Indwelling Catheter # Voids 1 - Exam Gen: awake, alert, A+O x 1 HEENT: normocephalic, atraumatic, good hearing acuity, moist mucous membranes Resp: diminished air exchange, diffuse wheezing, crackles in the right lower base. CVS: good distal perfusion x 4, irregular rhythm, tachycardiac GI: soft, NTTP, ND : no SPT, no CVAT, vu catheter is present MSK: + b/l pitting edema, no clubbing Neuro: non-focal, moving all extremities - Labs CBC & Chem 7: 01/15/21 08:00 01/15/21 08:00 Labs: Abnormal Lab Results - Last 24 Hours (Table) 01/15/21 01/15/21 Range/Units 08:00 08:00 WBC 3.1 L (3.8-10.6) k/uL RBC 4.10 L (4.30-5.90) m/uL Hgb 12.2 L (13.0-17.5) gm/dL Hct 37.0 L (39.0-53.0) % RDW 22.8 H (11.5-15.5) % Plt Count 102 L (150-450) k/uL Lymphocytes # 0.6 L (1.0-4.8) k/uL Chloride 108 H (98-107) mmol/L Carbon Dioxide 21 L (22-30) mmol/L BUN 74 H (9-20) mg/dL Creatinine 3.46 H (0.66-1.25) mg/dL Microbiology - Last 24 Hours (Table) 01/14/21 11:23 Blood Culture - Final Blood 01/14/21 11:19 Blood Culture Gram Stain - Preliminary Blood 01/14/21 11:19 Blood Culture - Final Blood Assessment and Plan Assessment: Acute on chronic respiratory failure with hypoxia Toxic/metabolic encephalopathy Acute on Chronic heart failure, with preserved ejection fraction Suspected pneumonia in the right lower lobe COPD exacerbation RAYSA superimposed on CKD stage IV Paroxysmal atrial fibrillation with rapid ventricular response Hyperlipidemia Depression Hypothyroidism Chronic abdominal wound Plan: -Admit patient to telemetry, inpatient -Oxygen when necessary -DuoNeb's q6h + when necessary -Levofloxacin, day 4/? -Vancomycin day 1/? -Follow up pro-calcitonin = 0.38 -Follow up BCx/UCx -Care center [facility] growing VRSA; patient isolated with contact precautions, repeat UCx negative -continue contact precautions until BCx speciate -BCx 06/20 + bottles for GPCs on 01/15 -Pulmonary consult, appreciate recs -Cardiology consult -Lasix 60 mg IV twice a day d/c'd 01/12 by cardiology -home metoprolol increased from 12.5mg BID to 25mg BID -added amiodarone and digoxin -Nephrology consult -now on D5/150mEq Bicarb gtt at 75cc/hr by nephrology --> d/c'd on 01/14 -re-started patient on lasix 40mg IV BID on 01/14 -Neurology consult regarding CTH findings in context of gradually declining mental baseline -EEG negative for epileptic focus; B12 = 1010, folate = 17.3, MMA = pending, Treponema Ab = non-reactive -Continue home lipitor -Continue home Eliquis -Continue home sertraline, Wellbutrin -Continue home levothyroxine -Wound care consult Pt is DNR/DNI -attempted to call on 01/12, but no response -attempted to call on 01/13, but no response, left a voicemail -touched base with Fer (Nephew) today, he has discussed code status with family and would like to convert patient to DNR/DNI DVT PPx covered with Dilip Gonzales is pending paperwork for DPOA Dispo: back to care center after medically cleared
--- NOTE | 2021-01-15 11:14 | P.PN ---
Subjective This is a 50-year-old male past medical history significant for coronary artery disease status post PCI to the circumflex and LAD with a total occlusion of the RCA, hypertension, dyslipidemia, persistent atrial fibrillation, chronic kidney disease, morbid obesity and chronic nicotine dependence, multiple GI surgeries for hernia. He follows in the office with Dr. Wood. We have been asked to see in consultation for AAlex estrada with RVR and heart failure. Apparently patient has had increased stress due to the COVID-19 pandemic and his mother . He has slowly declined. He is currently at a group home. Patient is a poor historian, unable to indicate why he came to the emergency department. Apparently over the last several days, care staff at the group home became concerned due to altered mental status. And patient was sent to the emergency department. EKG revealed atrial fibrilation, heart rate 112. Laboratory data on admission, WBC 3.1, hemoglobin 12.5, platelets 110, sodium 147, potassium 3.9, BUN 57, serum creatinine 3.7, magnesium 2.1, BNP 26,500 previously 35,000 01/13/21: Patient seen and examined at bedside, no acute distress. Denies chest pain or shortness of breath or palpitations. Does have some mild abdominal pain he states that he is "trying to ignore" He is alert and oriented to person only. T elemetry reviewed he is in atrial fibrillation HR 100-115. Patient underwent EEG yesterday which was abnormal due to background slowing of at least moderate to severe degree. Suggestive of generalized cerebral dysfunction as seen with toxic metabolic encephalopathy or due to diffuse structural brain abnormality. Patient started on IV fluids and IV bicarb. Laboratory data reviewed, WBC 3.2, hemoglobin 12.9, platelets 134, sodium 143, potassium 4.0, BUN 57, serum creatinine 3.6, total bilirubin 2, repeat 1.9 . Patient currently maintained on Eliquis 5 mg twice daily, atorvastatin 40 mg nightly, metoprolol titrate 25 mg twice a day. 01/14 Patient seen and examined. Patient was placed on a bicarb drip. Bicarbonate level yesterday 16. Labs pending from today. Patient remains confused and denies any chest pain or pressure. Does appear to have some mild tachypnea however denies shortness breath. 01/15 Since seen and examined. Patient remains confused. Denies any chest pain or pressure. One of 2 blood cultures preliminary result for gram-positive cocci. Patient also has been having diarrhea and C. diff was ordered. He has not been taking much oral intake. He has been on the Lasix and appears dry on exam. We'll stop Lasix and give him gentle IV fluids. He did remain tachycardic yesterday and therefore was laced on digoxin as well as the amiodarone. His blood pressures have been borderline in the 80s to 90s. We will monitor response of IV fluids and may need to decrease his metoprolol. PHYSICAL EXAMINATION Vitals reviewed CONSTITUTIONAL: No apparent distress. Morbidly obese. HEENT: Head is normocephalic. No JVD. No carotid bruit. CHEST EXAMINATION: Lungs diminished bilaterally, no wheezes or rhonchi. No chest wall tenderness is noted on palpation or with deep breathing. HEART EXAMINATION: Irregular rate and rhythm. S1, S2 heard. Systolic ejection murmur at the base, no gallops or rub. ABDOMEN: Soft, Left sided wound covered with dressing. Positive bowel sounds. EXTREMITIES: 2+ peripheral pulses, Bilateral legs with venous insufficiency, bilateral ecchymosis. and no calf tenderness. NEUROLOGIC EXAMINATION: Patient is awake, alert, oriented to person only. ASSESSMENT Chronic persistent atrial fibrillation with rapid ventricular response Chronic diastolic heart failure Hypernatremia Altered Mental Status, likely multifactorial Acute on Chronic kidney disease Coronary artery disease status post PCI to the circumflex and LAD with a total occlusion of the RCA History of Hypertension Dyslipidemia Type 2 Diabetes mellitus COPD Morbid obesity Medication noncompliance Chronic nicotine dependence Diarrhea Gram positive cocci bacteremia Hypotension PLAN Continue amiodarone. Digoxin added 01/14 Patient's heart rates remained mildly elevated. He has had poor oral intake as well as diarrhea and now appears to be septic with bacteremia. We therefore will stop Lasix and proceed with gentle IV fluid and monitor response of heart rate and blood pressure. Continue with current supportive care. Prognosis guarded. Further recommendations to follow based upon clinical course. Objective - Vital Signs Vital signs: Vital Signs Temp 98.3 F 01/15/21 11:01 Pulse 96 01/15/21 11:01 Resp 20 01/15/21 11:01 BP 87/63 01/15/21 11:01 Pulse Ox 97 01/15/21 11:01 Intake & Output 01/14/21 01/15/21 01/15/21 18:59 06:59 18:59 Intake Total 240 240 Output Total 850 800 Balance -610 -800 240 Weight 122 kg Intake: Oral 240 240 Output: Urine 850 800 Other: Voiding Method Indwelling Catheter Indwelling Catheter # Voids 1 - Labs CBC & Chem 7: 01/15/21 08:00 01/15/21 08:00 Labs: Abnormal Lab Results - Last 24 Hours (Table) 01/15/21 01/15/21 Range/Units 08:00 08:00 WBC 3.1 L (3.8-10.6) k/uL RBC 4.10 L (4.30-5.90) m/uL Hgb 12.2 L (13.0-17.5) gm/dL Hct 37.0 L (39.0-53.0) % RDW 22.8 H (11.5-15.5) % Plt Count 102 L (150-450) k/uL Lymphocytes # 0.6 L (1.0-4.8) k/uL Chloride 108 H (98-107) mmol/L Carbon Dioxide 21 L (22-30) mmol/L BUN 74 H (9-20) mg/dL Creatinine 3.46 H (0.66-1.25) mg/dL Microbiology - Last 24 Hours (Table) 01/14/21 11:23 Blood Culture - Final Blood 01/14/21 11:19 Blood Culture Gram Stain - Preliminary Blood 01/14/21 11:19 Blood Culture - Final Blood
[2021-01-15] MEDS ORDERED: SODIUM CHLORIDE 0.9% 1,000 ML IV SCH (11:15)
[2021-01-15] MEDS ORDERED: SODIUM CHLORIDE 0.9% 500 ML 500 ML IV ONE ×2 (11:28→21:33)
--- NOTE | 2021-01-15 11:28 | P.PN ---
Subjective Progress Note Date: 01/15/21 A 50-year-old white male patient with multiple medical problems including hypertension, hyperlipidemia, chronic atrial fibrillation, this episode of myocardial infarction CHF with diastolic dysfunction, coronary artery disease, COPD, diabetes mellitus type 2, sleep apnea, hypothyroidism, history of DVT, and chronic nonhealing abdominal wounds. Patient has a history of colonic abscess with a bowel resection. We saw the patient in consultation in October 2020 when he was hospitalized with acute exacerbation of CHF. On 01/11/2021 patient presented to the emergency department per EMS for evaluation of altered mental status. Patient is a poor historian. Patient resides in the local [facility]. Apparently she was having decreased appetite, and increased lethargy and confusion. There is no reported fever or difficulty breathing, no cough, no chest discomfort. Most of the history is obtained from the chart, patient is lethargic, and there is no family around. It's unclear whether or not he wears oxygen and CPAP at the custodial. Brain CT showed the ventricles, basal cisterns and sulci overlying the cerebral convexities demonstrating mild enlargement of the patient's age group. Chest x-ray showed right lower lobe infiltrate. Lab work showed a white blood cell count of 3.2, hemoglobin of 12 .4, INR is 1.4, sodium is 147, potassium is 4.2, chloride is 113, CO2 17, BUN is 57, creatinine is 3.79, showing acute kidney injury, hyponatremia, dehydration. His proBNP came back at 26,005 100, troponin was negative at less than 0.012, LFTs were within normal limits, pro-calcitonin level was 0.38, urinalysis showed large amount of blood, 1+ protein, rare bacteria and mucus, but no clear eviden ce of urinary tract infection. Urine drug screen was negative. Patient has been afebrile since admission, blood pressure is stable, no hypotension, EKG showed atrial flutter with variable AV block, with a rate of 112 BPM, and nonspecific ST and T-wave abnormality. Of note patient was hypoglycemic in the emergency department but sugar of 66, and 1 amp of 50% dextrose was given with subsequent improvement of patient's blood sugars. Lung sounds are essentially clear, patient briefly wakes up, he denies any cough or congestion, no phlegm production. He is not able to tell us whether or not he wears CPAP at home as he is falling asleep. He does have superficial healing wounds on his abdomen which are covered with dressing, he is on Eliquis for history of chronic atrial fibrillation. Vital signs are stable right now. Started on Levaquin empirically, she did receive 500 mL fluid bolus in the emergency department. Neurology evaluation was requested and is pending at this time, EEG is pending, cardiology is consulted, 2-D echocardiogram has been ordered. Wound services are following in regards to the chronic abdominal wounds and patient has a sacral wound as well. Today's evaluation on 01/13/2021 patient seen in follow-up on selective care. He is still very confused, he is awake, he is arousable, however she makes poor eye contact, he thinks he is in [place], he thought there was a word sitting on his foot, he thinks he lives in [place] by himself in a house. Room air pulse ox was noted to be around 76 and subsequently patient was placed on 2 L of oxygen and pulse ox improved to 100%. He appears to be breathing comfortably, no cough, no congestion, no complaints of chest discomfort. No evidence of respiratory distress. EEG was done and showed abnormal EEG, due to background slowing of at least moderate to severe degree suggestive of generalized cerebral dysfunction related to sick metabolic encephalopathy. There were no focal or generalized epileptiform activity seen on the EEG. Brain CT on admission showed enlargement of the ventricles, basal cisterns and sulci with no evidence of intracranial hemorrhage or sulcal effacement. Repeat chest x-ray was reviewed showing interstitial edema though infiltrates of other etiology were not completely excluded, nevertheless patient is covered with empiric antibiotics in the form of Levaquin. he had no fever or chills, today's labs have been reviewed, his white blood cell count is stable at 3.2, hemoglobin is 12.9, sodium is 143, potassium is 4.0, chloride is 111, CO2 16, BUN of 57, and creatinine of 3.61. Patient has been tolerating oral intake, although she does need supervision and assistance with it. No episodes of choking or coughing were noted. His abdominal wounds actually show improvement in the amount of healing, according to the wound care service. They're currently covered with dressings, urine culture has been sent. Abdomen is soft, there has been no vomiting, no diarrhea. The status of his CPAP device at the custodial is unknown, however reviewing his sleep study from several years ago is apparent that patient has severe sleep apnea with AHI score of 55 and up to 90 during the REM sleep. Current settings on his CPAP device are unknown, we will try to get a hold of the ECF to inquire about that 01/14/2021, the patient is being seen in follow-up. As mentioned earlier, he is a 50-year-old male patient with extensive comorbidities including CHF, diastolic heart failure, chronic atrial fibrillation, morbid obesity, obstructive sleep apnea, hypertension, previous history of OR, and massive and several abdominal surgeries work requiring bowel resection and currently his abdominal wall is essentially loose and there is obvious dehiscence of the abdominal muscles with some superficial wounds have been nonhealing for quite sometime. The patient came to with worsening appetite, diminished level of consciousness, and some difficulty breathing. His echocardiogram is showing an ejection fraction of 35- 40% and there is a combination of systolic and diastolic heart failure. He has also not to moderate RV enlargement, normal LV, moderate mitral regurgitation, P A pressures 37. Earlier this morning he was found to be in nature fibrillation with rapid ventricular response. He is currently on 05 mg by mouth twice a day for rate control. He is also on metoprolol 25 mg by mouth twice a day he had his chest x-rays showing pulmonary vessel congestion. Some limited effusion lung bases bilaterally. He remains on 2 L of oxygen by nasal cannula. No clear signs of pneumonia. No cough or congestion. He is on Levaquin as an empiric antibiotic coverage. He does have chronic edema lower extremities bilaterally. His mentation is still altered and he waxes and wanes. He was able to communicate with me. He is not cooperative. Doesn't volunteer any significant information. Neurologist on the case. EEG was abnormal and there is cerebral dysfunction consistent with encephalopathy. 01/15/2021, the patient is still doing poorly. He remains confused. He has draining abdominal wounds. One of the blood cultures came positive for gram- positive cocci. He is also having liquidy stool and for C. diff has been checked and sent. Results of the pending for now. He also developed some hypotension. His systolic blood pressures the mid 80s. He'll be given bolus of IV fluids. His heart rate is under better control. He is tachycardic regarding his atrial fibrillation. He is on a combination of amiodarone and digoxin for rate control. He was also on beta ariella dose being adjusted by cardiology. No significant respiratory distress. He is currently on 2 L of oxygen by nasal cannula. Antibiotic coverage includes a combination of vancomycin and Levaquin. Objective - Vital Signs Vital signs: Vital Signs Temp 98.3 F 01/15/21 11:01 Pulse 96 01/15/21 11:01 Resp 20 01/15/21 11:01 BP 87/63 01/15/21 11:01 Pulse Ox 97 01/15/21 11:01 Intake & Output 01/14/21 01/15/21 01/15/21 18:59 06:59 18:59 Intake Total 240 240 Output Total 850 800 Balance -610 -800 240 Weight 122 kg Intake: Oral 240 240 Output: Urine 850 800 Other: Voiding Method Indwelling Catheter Indwelling Catheter # Voids 1 - Exam GENERAL EXAM: Lethargic, easily arousable, more arousable and today's exam at patient is providing simple answers although he is very confused 50-year-old obese white female, breathing comfortably, 2 L of oxygen pulse ox is 99%, remains in atrial flutter with RVR, with a rate of 120-130 BPM, patient briefly wakes up to verbal stimulation, answers one or 2 word questions and falls back asleep resting in bed comfortable in no apparent distress. HEAD: Normocephalic/atraumatic. EYES: Normal reaction of pupils, equal size. Conjunctiva pink, sclera white. NOSE: Clear with pink turbinates. THROAT: No erythema or exudates. NECK: No masses, no JVD, no thyroid enlargement, no adenopathy. CHEST: No chest wall deformity. Symmetrical expansion. LUNGS: Equal air entry with no crackles, wheeze, rhonchi or dullness. CVS: Regular rate and rhythm, normal S1 and S2, no gallops, no murmurs, no rubs ABDOMEN: Soft, nontender. No hepatosplenomegaly, normal bowel sounds, no guarding or rigidity. Multiple superficial healing wounds on the left abdomen, covered with a dressing, minimal drainage, nonpurulent. Large incisional hernia on the right abdomen EXTREMITIES: No clubbing, no edema, no cyanosis, 2+ pulses and upper and lower extremities. MUSCULOSKELETAL: Muscle strength and tone normal. SPINE: No scoliosis or deformity SKIN: No rashes CENTRAL NERVOUS SYSTEM: Lethargic, generalized weakness in all 4 extremities. Nonambulatory. Mentation is abnormal as the patient is on off confused and encephalopathic. He is able to follow simple commands and answer some simple questions for now. - Labs CBC & Chem 7: 01/15/21 08:00 01/15/21 08:00 Labs: Abnormal Lab Results - Last 24 Hours (Table) 01/15/21 01/15/21 Range/Units 08:00 08:00 WBC 3.1 L (3.8-10.6) k/uL RBC 4.10 L (4.30-5.90) m/uL Hgb 12.2 L (13.0-17.5) gm/dL Hct 37.0 L (39.0-53.0) % RDW 22.8 H (11.5-15.5) % Plt Count 102 L (150-450) k/uL Lymphocytes # 0.6 L (1.0-4.8) k/uL Chloride 108 H (98-107) mmol/L Carbon Dioxide 21 L (22-30) mmol/L BUN 74 H (9-20) mg/dL Creatinine 3.46 H (0.66-1.25) mg/dL Microbiology - Last 24 Hours (Table) 01/14/21 11:23 Blood Culture - Final Blood 01/14/21 11:19 Blood Culture Gram Stain - Preliminary Blood 01/14/21 11:19 Blood Culture - Final Blood Assessment and Plan Plan: #1. Altered mental status, multifactorial, related to metabolic encephalopathy, neurology consultation is pending, brain CT showed no acute neuro workup is in progress. Consider underlying CVA. Encephalopathy. Remains encephalopathic on today's evaluation. #2. Atrial fibrillation with rapid ventricular response, heart dizziness poorly controlled. Patient is diagnosed to have systolic heart failure with ejection fraction of 35%. He also has a component of diastolic heart failure. Pulmonary artery pressure mildly elevated. The heart rate is under better control. The patient remains on a combination of amiodarone and digoxin. #3. Hypotension, likely secondary to intravascular volume depletion and dehydration as the patient is also having liquidy bowel movements. Also consider the possibility of sepsis as the patient is showing gram-positive cocci in the blood. Currently on a combination of Levaquin and vancomycin. Patient is to #4. Systolic heart failure with an ejection fraction of 30-35 percent, please refer to the echocardiogram #5. Interstitial edema on the chest x-ray, possibility of pneumonia is unlikely, and the findings were felt to be more consistent with mild fluid overload and exacerbation of diastolic CHF #6. Resident of a local ECF #7. Nonhealing chronic abdominal wounds #8. History of bowel resection related to abdominal sepsis and colonic abscess #9. Obstructive sleep apnea, severe, AHI score of 55, and 92 during REM sleep. Compliance and current settings of the CPAP are unknown #10. Morbid obesity #11. Chronic A. fib on Eliquis #12. History of hypertension #13. Hyperlipidemia #14. History of coronary artery disease status post PCI and stenting of the c ircumflex and LAD #15. History of a DVT #16. Acute kidney injury related to ATN on top of a chronic stage III kidney disease #17. Chronic kidney disease stage III #18 diarrhea, rule out underlying significant colitis. Stool be sent for analysis. # 19 non anion gap metabolic acidosis, we'll start him on a bicarb infusion. Plan: Give the patient bolus of 500 mL's of normal saline Maintenance D5 water with a total of 150 mEq of sodium bicarbonate the rate of 75 mL an hour as the patient is a bicarb deficit No obvious signs of pneumonia. Chest x-ray is more consistent with CHF and int erstitial edema, chest x-ray reviewed showing evidence of mild fluid overload Monitor the oxygenation and the patient is currently on 3 L of oxygen by nasal cannula. Continue amiodarone and digoxin Monitor atrial fibrillation Continue with antibiotics right now although we do not see a clear evidence of pneumonia Neurology regarding his mental status change Continue anticoagulation We'll continue to follow We'll continue to follow
[2021-01-15] MEDS: DIGOXIN 125 MCG TAB PO SCH (11:54)
[2021-01-15 11:57] LABS: Glucose,Whole Blood 92 mg/dL (75-99)
[2021-01-15] MEDS ORDERED: DEXTROSE 5% IN WATER 1,000 ML with SODIUM BICARB (1 MEQ/ML) 150 ML IV SCH (12:00)
--- NOTE | 2021-01-15 12:29 | XR ---
EXAMINATION TYPE: XR chest 1V portable DATE OF EXAM: 01/15/2021 COMPARISON: 01/14/2020 HISTORY: Heart is TECHNIQUE: Single frontal view of the chest is obtained. FINDINGS: Remaining with diffuse interstitial pattern and patchy bilateral infiltrate stable. Right costophrenic angle not included with small bilateral effusions are suspected. No pneumothorax. Patien t slightly rotated. Arthropathy of the shoulders. IMPRESSION: Correlate for venous congestion versus interstitial pneumonitis with small bilateral eff usion stable from prior exam.
--- NOTE | 2021-01-15 14:48 | P.PN ---
Subjective Progress Note Date: 01/15/21 Follow-up for acute kidney injury. Objective - Vital Signs Vital signs: Vital Signs Temp 98.3 F 01/15/21 11:01 Pulse 92 01/15/21 12:45 Resp 20 01/15/21 11:01 BP 86/47 01/15/21 14:00 Pulse Ox 97 01/15/21 11:01 Intake & Output 01/14/21 01/15/21 01/15/21 18:59 06:59 18:59 Intake Total 240 480 Output Total 850 800 652 Balance -610 -800 -172 Weight 122 kg Intake: Oral 240 480 Output: Urine 850 800 650 Stool 2 Other: Voiding Method Indwelling Catheter Indwelling Catheter Indwelling Catheter # Voids 1 # Bowel Movements 4 - Exam No acute distress S1-S2 heard Decreased breath sounds Edema Swain - Labs CBC & Chem 7: 01/15/21 08:00 01/15/21 08:00 Labs: Abnormal Lab Results - Last 24 Hours (Table) 01/15/21 01/15/21 Range/Units 08:00 08:00 WBC 3.1 L (3.8-10.6) k/uL RBC 4.10 L (4.30-5.90) m/uL Hgb 12.2 L (13.0-17.5) gm/dL Hct 37.0 L (39.0-53.0) % RDW 22.8 H (11.5-15.5) % Plt Count 102 L (150-450) k/uL Lymphocytes # 0.6 L (1.0-4.8) k/uL Chloride 108 H (98-107) mmol/L Carbon Dioxide 21 L (22-30) mmol/L BUN 74 H (9-20) mg/dL Creatinine 3.46 H (0.66-1.25) mg/dL Microbiology - Last 24 Hours (Table) 01/14/21 11:23 Blood Culture Gram Stain - Preliminary Blood 01/14/21 11:19 Blood Culture Gram Stain - Preliminary Blood Blood Culture - Preliminary Staphylococcus aureus 01/14/21 11:23 Blood Culture - Final Blood 01/14/21 11:19 Blood Culture - Final Blood Assessment and Plan Assessment: #1 acute kidney injury suspect ATN. #2 CK D stage IIIB/4 with a baseline creatinine around 2.0 MG per DL earlier in the year, lately around 2.6-2.7 MG per DL. #3 volume overload #4 metabolic acidosis #5 pneumonia on antibiotics #6 diastolic CHF Plan: #1 currently appears overloaded, add Lasix 40 mg IV twice a day. #2 acute on bicarb drip. #3 labs in the morning.
[2021-01-15] MEDS ORDERED: FUROSEMIDE 10 MG/ML 4 ML VIAL IV SCH (15:00)
[2021-01-15 16:44] LABS: Glucose,Whole Blood 89 mg/dL (75-99)
[2021-01-15] MEDS ORDERED: LEVOFLOXACIN 750 MG TAB PO SCH (18:00)
[2021-01-15] MEDS: ACETAMINOPHEN TAB 325 MG TAB PO PRN (18:06)
[2021-01-15] MEDS ORDERED: METOPROLOL TARTRATE 25 MG TAB PO SCH (19:00)
[2021-01-15] MEDS: SERTRALINE 50 MG TAB PO SCH (20:32)
[2021-01-15] MEDS: LEVOTHYROXINE 25 MCG TAB PO SCH (20:32)
[2021-01-15] MEDS: MULTIVITAMINS, THERA 1 EACH TAB PO SCH (20:32)
[2021-01-15] MEDS: ATORVASTATIN 40 MG TAB PO SCH (20:32)
[2021-01-15 21:10] LABS: Glucose,Whole Blood 81 mg/dL (75-99)
[2021-01-16] MEDS: IPRATROPIUM-ALBUTEROL 3 ML NEB INHALATION SCH ×4 (00:07→20:10)
--- NOTE | 2021-01-16 00:11 | P.PN ---
Subjective Progress Note Date: 01/14/21 Patient was seen via Tele-neurology today on 01/14/2021. Patient states that he is "not doing too well". He continues to be very encephalopathic, confused. Obviously delirious. Very tremulous. Offers no complaints. Patient is laying comfortably in the bed. Objective - Vital Signs Vital signs: Vital Signs Temp 97.8 F 01/15/21 23:34 Pulse 88 01/15/21 23:34 Resp 20 01/15/21 23:34 BP 74/49 01/15/21 23:34 Pulse Ox 100 01/15/21 23:34 Intake & Output 01/15/21 01/15/21 01/16/21 06:59 18:59 06:59 Intake Total 1580 Output Total 800 2277 825 Balance -800 -697 -825 Weight 122 kg Intake: Intake, IV Titration 1100 Amount DAPTOmycin 800 mg In 50 Sodium Chloride 0.9% 50 ml @ 100 mls/hr IVPB Q48H ZURI Rx#:[id number] Dextrose 5% in Water 1, 300 000 ml @ 50 mls/hr IV . Q23H ZURI with Sodium Bicarb (1 Meq/ml) 150 ml Rx#:[id number] Sodium Chloride 0.9% 500 250 ml 500 ml @ 999 mls/hr IV .Q31M ONE Rx#:[id number] Vancomycin 2,000 mg In 500 Sodium Chloride 0.9% 500 ml 500 ml @ 167 mls/hr IVPB ONCE ONE Rx#: [id number] Oral 480 Output: Urine 800 2275 825 Uretheral (Swain) 825 825 Stool 2 Other: Voiding Method Indwelling Catheter Indwelling Catheter Indwelling Catheter # Voids 1 # Bowel Movements 3 - Exam Patient is still encephalopathic, delirious, very tremulous. Patient has asterixis/myoclonus of outstretched hands. Tone appears equal. Patient could not tell the current month. He appears very frustrated, does not want to answer questions. Patient moves arms and legs equally. - Labs CBC & Chem 7: 01/17/21 07:43 01/17/21 07:43 Labs: Abnormal Lab Results - Last 24 Hours (Table) 01/15/21 01/15/21 Range/Units 08:00 08:00 WBC 3.1 L (3.8-10.6) k/uL RBC 4.10 L (4.30-5.90) m/uL Hgb 12.2 L (13.0-17.5) gm/dL Hct 37.0 L (39.0-53.0) % RDW 22.8 H (11.5-15.5) % Plt Count 102 L (150-450) k/uL Lymphocytes # 0.6 L (1.0-4.8) k/uL Chloride 108 H (98-107) mmol/L Carbon Dioxide 21 L (22-30) mmol/L BUN 74 H (9-20) mg/dL Creatinine 3.46 H (0.66-1.25) mg/dL Microbiology - Last 24 Hours (Table) 01/14/21 11:23 Blood Culture Gram Stain - Preliminary Blood 01/14/21 11:19 Blood Culture Gram Stain - Preliminary Blood Blood Culture - Preliminary Staphylococcus aureus 01/14/21 11:23 Blood Culture - Final Blood 01/14/21 11:19 Blood Culture - Final Blood Assessment and Plan Assessment: * Abnormal computed tomography scan, with evidence of ventricular prominence prominence. I reviewed computed tomography scan of the head, and to me appears significant amount of cortical atrophy with symmetric enlargement of the ventricles. I do not see any evidence of NPH. * Altered mental status, likely due to toxic metabolic encephalopathy. * Possible fluid overload, possible acute exacerbation of diastolic CHF. * Diabetes with diabetic ulcers. Last A1c 5.1 on 08/09/2020, which is perfectly fine. * Obstructive sleep apnea * Acute kidney injury related to ATN with chronic stage III disease. * Chronic atrial fibrillation on Eliquis * Hypertension * Hyperlipidemia * History of DVT Plan: * Computed tomography scan was reviewed. There is generalized cortical atrophy with secondary enlargement of the lateral ventricles. No evidence of NPH. * EEG was performed, which was moderate to severe slowing consistent with toxic metabolic encephalopathy. No epileptiform activity was seen. * Patient's examination is suggestive of toxic metabolic encephalopathy. Probably related to underlying cardiopulmonary dysfunction. * B12 1010, folate 17.3, RPR nonreactive, TSH 5.63. B6, MMA, B1 and ceruloplasmin still pending. We will follow the levels. * Medical management as per IM and other subspecialties. Patient's neurological status is related to underlying medical/metabolic condition. * As there is no active neurological issue, neurology will sign off. Please r econsult neurology if any concerns. Addendum (F/u on labs): 01/17/2021 B6 borderline 8 (5-50), MMA elevated 0.41 (Normal < 0.40), B1 level normal 110 (38-122)and ceruloplasmin normal 38.6 (20-60). Vitamin D 67 normal. We will start B6 replacement and B12 replacement as MMA is elevated.
[2021-01-16] MEDS ORDERED: SODIUM CHLORIDE 0.9% 1,000 ML IV SCH (00:15)
[2021-01-16] MEDS ORDERED: VANCOMYCIN 2,000 MG in SODIUM CHLORIDE 0.9% 500 ML 500 ML IVPB ONE (05:00)
[2021-01-16] MEDS: SODIUM CHLORIDE 0.9% 1,000 ML IV SCH (06:35)
[2021-01-16] MEDS: ACETAMINOPHEN TAB 325 MG TAB PO PRN (06:35)
--- NOTE | 2021-01-16 07:53 | P.CONS ---
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 he was brought to the hospital on 11 January for evaluation of mental status changes apparently to have decreased appetite increased lethargy and confusion patient on presentation to the hospital was afebrile he did have a low-grade fever of 100 F this morning patient did have a leukopenia with a white count of 3.2 that has not changed significantly liver enzymes are normal he did have elevated BUN and creatinine and is being monitored by nephrology services patient did have a UA with evidence of hematuria no pyuria initial chest x-ray was suspicious for right lower lobe infiltrate/pneumonia chest x-ray this morning showing a soft tissue infiltrate bilaterally patient urine cultures came back negative blood culture grew gram-positive cocci patient is currently being treated with the daptomycin as the patient is allergic to penicillin cephalosporin and is unchanged infectious he was consulted for further management most information has been obtained from review the chart and talking nursing staff as the patient still evaluated good historian but not specifically denies having any chest pain he did have some cough but not bringing up any sputum no nausea no vomiting no diarrhea has been reported and no symptoms referable to his chronic nonhealing abdominal wall wound Review of Systems Positive points has been mentioned in HPI complete review could not be obtained because of his underlying mental status Past Medical History Past Medical History: Atrial Fibrillation, Asthma, Coronary Artery Disease (CAD), Chest Pain / Angina, Heart Failure, COPD, Diabetes Mellitus, Deep Vein Thrombosis (DVT), Hyperlipidemia, Hypertension, Myocardial Infarction (CT), Renal Disease, Sleep Apnea/CPAP/BIPAP, Thyroid Disorder, Vascular Disorder Additional Past Medical History / Comment(s): CHF, tracheobronchitis, CKD stage III, kidney stones, DVT L leg in 2004, KAMRYN without device use, colon abscess with bowel resection, multiple abdominal surgeries for a hiatal hernia that was complicated by prolonged hospitalization and prolonged ventilator dependent respiratory failure requiring a tracheostomy tube insertion, pvd-lower legs discolored/edematous, diverticular disease, chronic iron deficiency anemia, vertigo at times, Last Myocardial Infarction Date:: History of Any Multi-Drug Resistant Organisms: MRSA Year Discovered:: 02/01/15 MDRO Source:: Abdomen Past Surgical History: Bowel Resection, Heart Catheterization With Stent, Hernia Repair Additional Past Surgical History / Comment(s): Colonoscopies, heart stents x 4, bowel resection with colostomy and colostomy reversal (removed a foot of pts colon)-2003, hernia repair with skin grafts and 2 fistula repairs (hospitalized for 1 year @[facility])-2010 MRSA 2015 in wounds. Past Anesthesia/Blood Transfusion Reactions: No Reported Reaction Additional Past Anesthesia/Blood Transfusion Reaction / Comm: Pt has received blood in past without reaction-2010 Date of Last Stent Placement:: 03/28/2015 Past Psychological History: Depression Additional Psychological History / Comment(s): PT IS DISABLED. PT LIVES WITH 2 PET CATS AND 1 DOG. HOME HAS A RAMP. Uses an electric scooter... Since October 2020 Pt has been residing at [facility]. Smoking Status: Unknown if ever smoked Past Alcohol Use History: None Reported Additional Past Alcohol Use History / Comment(s): smokes .25 pack a day. Past Drug Use History: None Reported - Past Family History Mother Family Medical History: Osteoarthritis (OA), Pneumonia Additional Family Medical History / Comment(s): osteoporosis. arthroscopy surgery for knee Father Family Medical History: Liver Disease, Renal Disease Additional Family Medical History / Comment(s): triple heart bypass. liver transplant. aortic aneursym Medications and Allergies Home Medications Medication Instructions Recorded Confirmed Type Apixaban [Eliquis] 5 mg PO BID #60 tab 06/26/20 01/11/21 Rx buPROPion XL [Wellbutrin XL] 150 mg PO DAILY 07/26/20 01/11/21 History Ipratropium-Albuterol Nebulize 3 ml INHALATION RT-Q6H 09/07/20 01/11/21 History [Duoneb 0.5 mg-3 mg/3 ml Soln] Multivitamins, Thera [Multivitamin 1 tab PO HS 10/24/20 01/11/21 History (formulary)] Sertraline [Zoloft] 50 mg PO HS@199910/24/20 01/11/21 History Acetaminophen [Tylenol 8 Hour] 650 mg PO Q6H PRN 01/11/21 01/11/21 History Atorvastatin [Lipitor] 40 mg PO HS@199901/11/21 01/11/21 History Levothyroxine Sodium [Synthroid] 25 mcg PO HS@199901/11/21 01/11/21 History Metoprolol Tartrate [Lopressor] 12.5 mg PO BID@0700,1900 01/11/21 01/11/21 Histo ry Sennosides [Senokot] 17.2 mg PO BID 01/11/21 01/11/21 History Allergies Allergy/AdvReac Type Severity Reaction Status Date / Time adhesive Allergy "PLASTIC Verified 01/11/21 14:00 TAPE PEELS SKIN,PAPER TAPE IS OK" linezolid Allergy Unknown Verified 01/11/21 14:00 penicillin G Allergy Rash/Hives Verified 01/11/21 14:00 Cephalosporins AdvReac FEVER Verified 01/11/21 14:00 Physical Exam Vitals: Vital Signs Temp Pulse Pulse Resp BP BP Pulse Ox 01/15/21 14:00 86/47 01/15/21 12:45 92 119/96 01/15/21 12:30 103 H 01/15/21 12:21 101 H 01/15/21 11:01 98.3 F 96 20 87/63 97 01/15/21 09:30 96 20 01/15/21 09:27 98.5 F 105 H 22 88/61 98 01/15/21 09:15 79/56 01/15/21 07:21 113 H 01/15/21 07:09 108 H 98 01/15/21 05:21 99.1 F 01/15/21 04:00 100.0 F H 118 H 20 107/61 99 01/15/21 01:28 136 H 01/15/21 01:21 124 H 01/14/21 23:00 98.6 F 20 123/73 01/14/21 19:10 124 H 01/14/21 19:00 98.7 F 129 H 20 93/52 98 01/14/21 18:59 129 H Intake and Output 01/15/21 01/15/21 01/15/21 06:59 14:59 22:59 Intake Total 480 Output Total 652 Balance -172 Intake: Oral 480 Output: Urine 650 Stool 2 Other: Voiding Method Indwelling Catheter # Bowel Movements 4 Weight 122 kg GENERAL DESCRIPTION: Middle-aged male lying in bed, no distress. No tachypnea or accessory muscle of respiration use. HEENT: Shows Pallor , no scleral icterus. Oral mucous membrane is dry. No pharyngeal erythema or thrush NECK: Trachea central, no thyromegaly. LUNGS: Unlabored breathing. Decreased dose of the base. No wheeze or crackle. HEART: S1, S2, regular rate and rhythm. No loud murmur ABDOMEN: Soft, mild distention abdominal wall wound with no slough tissue no surrounding redness EXTREMITIES: No edema of feet. SKIN: No rash, no masses palpable. NEUROLOGICAL: The patient is awake, alert, oriented x2, mood and affect normal. Results CBC & Chem 7: 01/15/21 08:00 01/15/21 08:00 Labs: Abnormal Lab Results - Last 24 Hours (Table) 01/15/21 01/15/21 Range/Units 08:00 08:00 WBC 3.1 L (3.8-10.6) k/uL RBC 4.10 L (4.30-5.90) m/uL Hgb 12.2 L (13.0-17.5) gm/dL Hct 37.0 L (39.0-53.0) % RDW 22.8 H (11.5-15.5) % Plt Count 102 L (150-450) k/uL Lymphocytes # 0.6 L (1.0-4.8) k/uL Chloride 108 H (98-107) mmol/L Carbon Dioxide 21 L (22-30) mmol/L BUN 74 H (9-20) mg/dL Creatinine 3.46 H (0.66-1.25) mg/dL Microbiology - Last 24 Hours (Table) 01/14/21 11:23 Blood Culture Gram Stain - Preliminary Blood 01/14/21 11:19 Blood Culture Gram Stain - Preliminary Blood Blood Culture - Preliminary Staphylococcus aureus 01/14/21 11:23 Blood Culture - Final Blood 01/14/21 11:19 Blood Culture - Final Blood Assessment and Plan Assessment: 1-patient with gram-positive bacteremia with the ID sensitivities currently pending apparently the patient did have outpatient culture positive for VRSA we will try to obtain those results, patient currently do not have any obvious focus as clinically not behaving as pneumonia abdominal wound looks clean, no evidence of any cellulitis if he did have evidence of persistent bacteremia will need TAMIA to rule out endovascular source 2-patient with multiple antibiotic allergies that would limit the number of antibiotics safe to use 3-renal insufficiency and high risk of nephrotoxicity from vancomycin (1) Bacteremia Current Visit: Yes Status: Acute Code(s): R78.81 - BACTEREMIA SNOMED Code(s): 8959663 (2) Allergy to multiple antibiotics Current Visit: Yes Status: Acute Code(s): Z88.1 - ALLERGY STATUS TO OTHER ANTIBIOTIC AGENTS SNOMED Code(s): 454854322 Plan: 1-blood cultures will be repeated to document clearance of his bacteremia 2-daptomycin dose adjusted to the kidney function We will follow on clinical condition and cultures to further adjust medication if needed Thank you for this consultation we will follow the patient along with you Time with Patient: Greater than 30
[2021-01-16 08:35] LABS: Anisocytosis Moderate; HCT 35.1 % (39.0-53.0); HGB 11.8 gm/dL (13.0-17.5); Hypochromasia Slight; MCH 30.1 pg (25.0-35.0); MCHC 33.6 g/dL (31.0-37.0); MCV 89.7 fL (80.0-100.0); Macrocytosis Slight; Mean Platelet Volume 10.1; Poikilocytosis Slight; RBC 3.91 m/uL (4.30-5.90); RDW 21.8 % (11.5-15.5); WBC 2.8 k/uL (3.8-10.6)
[2021-01-16 08:36] LABS: Calcium 8.9 mg/dL (8.4-10.2); Magnesium 1.7 mg/dL (1.6-2.3); Potassium 3.2 mmol/L (3.5-5.1)
[2021-01-16] MEDS ORDERED: Potassium Replacement Protocol 1 EACH MISC MISCELLANE PRN (08:46)
--- NOTE | 2021-01-16 09:07 | P.PN ---
Subjective Patient is seen in follow-up for acute kidney injury on chronic kidney disease. Renal function better. Maintained on IV Lasix. Denies chest pain or shortness of breath. Vital signs are stable. Blood pressure in the lower side. General: The patient appeared well nourished and normally developed. HEENT: Head exam is unremarkable. On nasal cannula. LUNGS: Breath sounds decreased. HEART: Rate and Rhythm are regular. ABDOMEN: Soft, obese. EXTREMITITES: Trace edema. Chronic changes noted. Objective - Vital Signs Vital signs: Vital Signs Temp 97.8 F 01/16/21 04:11 Pulse 94 01/16/21 04:11 Resp 18 01/16/21 04:11 BP 86/48 01/16/21 06:38 Pulse Ox 100 01/16/21 04:11 Intake & Output 01/15/21 01/16/21 01/16/21 18:59 06:59 18:59 Intake Total 1580 1100 Output Total 2277 1525 Balance -697 -425 Weight 124.5 kg Intake: Intake, IV Titration 1100 1100 Amount DAPTOmycin 800 mg In 50 Sodium Chloride 0.9% 50 ml @ 100 mls/hr IVPB Q48H ZURI Rx#:[id number] Dextrose 5% in Water 1, 300 300 000 ml @ 50 mls/hr IV . Q23H ZURI with Sodium Bicarb (1 Meq/ml) 150 ml Rx#:[id number] Sodium Chloride 0.9% 1, 300 000 ml @ 50 mls/hr IV . Q20H ZURI Rx#:[id number] Sodium Chloride 0.9% 500 250 ml 500 ml @ 999 mls/hr IV .Q31M ONE Rx#:[id number] Sodium Chloride 0.9% 500 500 ml 500 ml @ 999 mls/hr IV .Q31M ONE Rx#:[id number] Vancomycin 2,000 mg In 500 Sodium Chloride 0.9% 500 ml 500 ml @ 167 mls/hr IVPB ONCE ONE Rx#: [id number] Oral 480 Output: Urine 2275 1525 Uretheral (Swain) 825 825 Stool 2 Other: Voiding Method Indwelling Catheter Indwelling Catheter # Bowel Movements 3 - Labs CBC & Chem 7: 01/16/21 07:21 01/16/21 07:21 Labs: Abnormal Lab Results - Last 24 Hours (Table) 01/16/21 01/16/21 Range/Units 07:21 07:21 WBC 2.8 L (3.8-10.6) k/uL RBC 3.91 L (4.30-5.90) m/uL Hgb 11.8 L (13.0-17.5) gm/dL Hct 35.1 L (39.0-53.0) % RDW 21.8 H (11.5-15.5) % Potassium 3.2 L (3.5-5.1) mmol/L BUN 76 H (9-20) mg/dL Creatinine 3.21 H (0.66-1.25) mg/dL Creatine Kinase 35 L (55-170) U/L Microbiology - Last 24 Hours (Table) 01/14/21 11:23 Blood Culture Gram Stain - Preliminary Blood 01/14/21 11:19 Blood Culture Gram Stain - Preliminary Blood Blood Culture - Preliminary Staphylococcus aureus 01/14/21 11:23 Blood Culture - Final Blood Assessment and Plan Plan: Assessment: 1. Acute kidney injury secondary to ATN secondary to cardiorenal syndrome and infection. Renal function better. Creatinine 3.21 today. 2. Chronic kidney disease stage IIIB/4 secondary to nephrosclerosis and car diorenal syndrome. Baseline creatinine recently near 2.6-2.7. 3. Acute on chronic systolic CHF with ejection fraction of 35-40% with moderate mitral regurgitation. 4. Volume overload. 5. Metabolic acidosis secondary to acute kidney injury. Improved. 6. Staph aureus bacteremia on antibiotics. ID following. 7. Hypokalemia from diuresis and intracellular shifting from IV bicarb. Plan: Maintain IV Lasix. Stop bicarb drip. Replace potassium. Avoid nephrotoxins. Continue to monitor renal function and urine output.
[2021-01-16] MEDS: AMIODARONE 200 MG TAB PO SCH ×2 (09:28→20:19)
[2021-01-16] MEDS: FUROSEMIDE 10 MG/ML 4 ML VIAL IV SCH ×3 (09:28→20:18)
[2021-01-16] MEDS: buPROPion XL 150 MG TAB.ER.24H PO SCH (09:28)
[2021-01-16] MEDS: POTASSIUM CHLORIDE ER 20 MEQ TAB.ER PO SCH ×2 (09:28→12:01)
[2021-01-16] MEDS: APIXABAN 5 MG TAB PO SCH ×2 (09:28→20:19)
[2021-01-16] MEDS: SENNOSIDES 8.6 MG TAB PO SCH ×2 (09:29→20:19)
[2021-01-16 10:10] LABS: Platelet Count 97 k/uL (150-450)
[2021-01-16 10:13] LABS: Eosinophils # (M) 0.56 k/uL (0-0.7); Lymphocytes # (M) 0.56 k/uL (1.0-4.8); Monocytes # (M) 0.25 k/uL (0-1.0); Neutrophils # (M) 1.43 k/uL (1.3-7.7); Neutrophils % (M) 51 %; Nucleated Red Blood Cells 0 /100 WBC (0-0); Total Cells Counted 100
[2021-01-16 11:03] LABS: Glucose,Whole Blood 74 mg/dL (75-99)
[2021-01-16 11:15] LABS: T4, Free (Free Thyroxine) 1.57 ng/dL (0.78-2.19)
--- NOTE | 2021-01-16 11:19 | P.PN ---
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 He follows in the office with Dr. Wood. We have been asked to see in consultation for A. natalie with RVR and heart failure. Apparently patient has had increased stress due to the COVID-19 pandemic and his mother . He has slowly declined. He is currently at a [facility]. Patient is a poor historian, unable to indicate why he came to the emergency department. Apparently over the last several days, care staff at the [facility] became concerned due to altered mental status. And patient was sent to the emergency department. EKG revealed atrial fibrilation, heart rate 112. Laboratory data on admission, WBC 3.1, sodium 147, BUN 57, serum creatinine 3.7, magnesium 2.1, BNP 26,500 previously 35,000 01/12/21: Patient underwent EEG which was abnormal due to background slowing of at least moderate to severe degree. Suggestive of generalized cerebral dysfunction as seen with toxic metabolic encephalopathy or due to diffuse structural brain abnormality. Patient started on IV fluids and IV bicarb. 01/16/21 Patient seen and examined. Patient remains confused. Denies any chest pain or pressure. Blood cultures 2 resulted with Staph aureus, patient started on IV Vancomycin and Daptomycin. He has not been taking much oral intake. He has been on the Lasix and appears dry on exam. Telemetry reviewed, patient in atrial fibrillation HR 90-100. His blood pressures have been borderline SBP in the 80s to low 100s. Currently maintained on amiodarone 400 mg twice a day, Eliquis 5 mg twice a day, atorvastatin 40 mg nightly, IV Lasix 40mg BID (not been given), IV fluids 50cc/hr. PHYSICAL EXAMINATION CONSTITUTIONAL: No apparent distress. Morbidly obese. HEENT: Head is normocephalic. No JVD. No carotid bruit. CHEST EXAMINATION: Lungs diminished bilaterally, no wheezes or rhonchi. HEART EXAMINATION: Irregular rate and rhythm. S1, S2 heard. Systolic ejection murmur at the base, no gallops or rub. ABDOMEN: Soft, Left sided wound covered with dressing. Positive bowel sounds. EXTREMITIES: 2+ peripheral pulses, Bilateral legs with venous insufficiency, bilateral ecchymosis. and no calf tenderness. NEUROLOGIC EXAMINATION: Patient is awake, alert, oriented to person only. ASSESSMENT Chronic persistent atrial fibrillation with rapid ventricular response Acute on chronic systolic heart failure Hypernatremia Altered Mental Status, likely multifactorial Acute on Chronic kidney disease Coronary artery disease status post PCI to the circumflex and LAD with a total occlusion of the RCA History of Hypertension Dyslipidemia Type 2 Diabetes mellitus COPD Morbid obesity Medication noncompliance Chronic nicotine dependence Diarrhea Gram positive cocci bacteremia, Staph aureus Hypotension Hypokalemia PLAN Continue amiodarone (started 01/13) Patient's heart rates remained mildly elevated. He has had poor oral intake as well as diarrhea, now appears to be septic with bacteremia. Diuresis per Nephrology Continue with current supportive care. Follow renal function and electrolytes in the morning. Continue eliquis for thromboembolic protection. Ongoing telemetry monitoring. Nephrology and ID following Further recommendations to follow based upon clinical course. Objective - Vital Signs Vital signs: Vital Signs Temp 97.8 F 01/16/21 04:11 Pulse 94 01/16/21 04:11 Resp 18 01/16/21 04:11 BP 86/48 01/16/21 06:38 Pulse Ox 100 01/16/21 04:11 Intake & Output 01/15/21 01/16/21 01/16/21 18:59 06:59 18:59 Intake Total 1580 1100 Output Total 2277 1525 Balance -697 -425 Weight 124.5 kg Intake: Intake, IV Titration 1100 1100 Amount DAPTOmycin 800 mg In 50 Sodium Chloride 0.9% 50 ml @ 100 mls/hr IVPB Q48H ZURI Rx#:[id number] Dextrose 5% in Water 1, 300 300 000 ml @ 50 mls/hr IV . Q23H ZURI with Sodium Bicarb (1 Meq/ml) 150 ml Rx#:[id number] Sodium Chloride 0.9% 1, 300 000 ml @ 50 mls/hr IV . Q20H ZURI Rx#:[id number] Sodium Chloride 0.9% 500 250 ml 500 ml @ 999 mls/hr IV .Q31M ONE Rx#:[id number] Sodium Chloride 0.9% 500 500 ml 500 ml @ 999 mls/hr IV .Q31M ONE Rx#:[id number] Vancomycin 2,000 mg In 500 Sodium Chloride 0.9% 500 ml 500 ml @ 167 mls/hr IVPB ONCE ONE Rx#: [id number] Oral 480 Output: Urine 2275 1525 Uretheral (Swain) 825 825 Stool 2 Other: Voiding Method Indwelling Catheter Indwelling Catheter # Bowel Movements 3 - Labs CBC & Chem 7: 01/16/21 07:21 01/16/21 07:21 Labs: Abnormal Lab Results - Last 24 Hours (Table) 01/15/21 01/16/21 01/16/21 Range/Units 08:00 07:21 07:21 WBC 2.8 L (3.8-10.6) k/uL RBC 3.91 L (4.30-5.90) m/uL Hgb 11.8 L (13.0-17.5) gm/dL Hct 35.1 L (39.0-53.0) % RDW 21.8 H (11.5-15.5) % Potassium 3.2 L (3.5-5.1) mmol/L Chloride 108 H (98-107) mmol/L Carbon Dioxide 21 L (22-30) mmol/L BUN 74 H 76 H (9-20) mg/dL Creatinine 3.46 H 3.21 H (0.66-1.25) mg/dL Creatine Kinase 35 L (55-170) U/L Microbiology - Last 24 Hours (Table) 01/14/21 11:23 Blood Culture Gram Stain - Preliminary Blood 01/14/21 11:19 Blood Culture Gram Stain - Preliminary Blood Blood Culture - Preliminary Staphylococcus aureus 01/14/21 11:23 Blood Culture - Final Blood 01/14/21 11:19 Blood Culture - Final Blood
--- NOTE | 2021-01-16 13:47 | P.PN ---
Subjective Progress Note Date: 01/16/21 Principal diagnosis: Acute systolic congestive heart failure with interstitial edema, cannot rule out underlying pneumonia however clinically is felt to be less likely. A 50-year-old white male patient with multiple medical problems including hypertension, hyperlipidemia, chronic atrial fibrillation, this episode of myocardial infarction CHF with diastolic dysfunction, coronary artery disease, COPD, diabetes mellitus type 2, sleep apnea, hypothyroidism, history of DVT, and chronic nonhealing abdominal wounds. Patient has a history of colonic abscess with a bowel resection. We saw the patient in consultation in October 2020 when he was hospitalized with acute exacerbation of CHF. On 01/11/2021 patient presented to the emergency department per EMS for evaluation of altered mental status. Patient is a poor historian. Patient resides in the local [facility]. Apparently she was having decreased appetite, and increased lethargy and confusion. There is no reported fever or difficulty breathing, no cough, no chest discomfort. Most of the history is obtained from the chart, patient is lethargic, and there is no family around. It's unclear whether or not he wears oxygen and CPAP at the snf. Brain CT showed the ventricles, basal cisterns and sulci overlying the cerebral convexities demonstrating mild enlargement of the patient's age group. Chest x-ray showed right lower lobe infiltrate. Lab work showed a white blood cell count of 3.2, hemoglobin of 12.4, INR is 1.4, sodium is 147, potassium is 4.2, chloride is 113, CO2 17, BUN is 57, creatinine is 3.79, showing acute kidney injury, hyponatremia, dehydration. His proBNP came back at 26,005 100, troponin was negative at less than 0.012, LFTs were within normal limits, pro-calcitonin level was 0.38, uri nalysis showed large amount of blood, 1+ protein, rare bacteria and mucus, but no clear evidence of urinary tract infection. Urine drug screen was negative. Patient has been afebrile since admission, blood pressure is stable, no hypotension, EKG showed atrial flutter with variable AV block, with a rate of 112 BPM, and nonspecific ST and T-wave abnormality. Of note patient was hypoglycemic in the emergency department but sugar of 66, and 1 amp of 50% dextrose was given with subsequent improvement of patient's blood sugars. Lung sounds are essentially clear, patient briefly wakes up, he denies any cough or congestion, no phlegm production. He is not able to tell us whether or not he wears CPAP at home as he is falling asleep. He does have superficial healing wounds on his abdomen which are covered with dressing, he is on Eliquis for history of chronic atrial fibrillation. Vital signs are stable right now. Started on Levaquin empirically, she did receive 500 mL fluid bolus in the emergency department. Neurology evaluation was requested and is pending at this time, EEG is pending, cardiology is consulted, 2-D echocardiogram has been ordered. Wound services are following in regards to the chronic abdominal wounds and patient has a sacral wound as well. Today's evaluation on 01/13/2021 patient seen in follow-up on selective care. He is still very confused, he is awake, he is arousable, however she makes poor eye contact, he thinks he is in [place], he thought there was a word sitting on his foot, he thinks he lives in [place] by himself in a house. Room air pulse ox was noted to be around 76 and subsequently patient was placed on 2 L of oxygen and pulse ox improved to 100%. He appears to be breathing comfortably, no cough, no congestion, no complaints of chest discomfort. No evidence of respiratory distress. EEG was done and showed abnormal EEG, due to background slowing of at least moderate to severe degree suggestive of generalized cerebral dysfunction related to sick metabolic encephalopathy. There were no focal or generalized epileptiform activity seen on the EEG. Brain CT on admission showed enlargement of the ventricles, basal cisterns and sulci with no evidence of intracranial hemorrhage or sulcal effacement. Repeat chest x-ray was reviewed showing interstitial edema though infiltrates of other etiology were not completely excluded, nevertheless patient is covered with empiric antibiotics in the form of Levaquin. he had no fever or chills, today's labs have been reviewed, his white blood cell count is stable at 3.2, hemoglobin is 12.9, sodium is 143, potassium is 4.0, chloride is 111, CO2 16, BUN of 57, and creatinine of 3.61. Patient has been tolerating oral intake, although she does need supervision and assistance with it. No episodes of choking or coughing were noted. His abdominal wounds actually show improvement in the amount of healing, according to the wound care service. They're currently covered with dressings, urine culture has been sent. Abdomen is soft, there has been no vomiting, no diarrhea. The status of his CPAP device at the snf is unknown, however reviewing his sleep study from several years ago is apparent that patient has severe sleep apnea with AHI score of 55 and up to 90 during the REM sleep. Current settings on his CPAP device are unknown, we will try to get a hold of the ECF to inquire about that 01/14/2021, the patient is being seen in follow-up. As mentioned earlier, he is a 50-year-old male patient with extensive comorbidities including CHF, diastolic heart failure, chronic atrial fibrillation, morbid obesity, obstructive sleep apnea, hypertension, previous history of [place], and massive and several abdominal surgeries work requiring bowel resection and currently his abdominal wall is essentially loose and there is obvious dehiscence of the abdominal muscles with some superficial wounds have been nonhealing for quite sometime. The patient came to with worsening appetite, diminished level of consciousness, and some difficulty breathing. His echocardiogram is showing an ejection fraction of 35- 40% and there is a combination of systolic and diastolic heart failure. He has also not to moderate RV enlargement, normal LV, moderate mitral regurgitation, PA pressures 37. Earlier this morning he was found to be in nature fibrillation with rapid ventricular response. He is currently on 05 mg by mouth twice a day for rate control. He is also on metoprolol 25 mg by mouth twice a day he had his chest x-rays showing pulmonary vessel congestion. Some limited effusion lung bases bilaterally. He remains on 2 L of oxygen by nasal cannula. No clear signs of pneumonia. No cough or congestion. He is on Levaquin as an empiric antibiotic coverage. He does have chronic edema lower extremities bilaterally. His mentation is still altered and he waxes and wanes. He was able to communicate with me. He is not cooperative. Doesn't volunteer any significant information. Neurologist on the case. EEG was abnormal and there is cerebral dysfunction consistent with encephalopathy. 01/15/2021, the patient is still doing poorly. He remains confused. He has draining abdominal wounds. One of the blood cultures came positive for gram- positive cocci. He is also having liquidy stool and for C. diff has been checked and sent. Results of the pending for now. He also developed some hypotension. His systolic blood pressures the mid 80s. He'll be given bolus of IV fluids. His heart rate is under better control. He is tachycardic regarding his atrial fibrillation. He is on a combination of amiodarone and digoxin for rate control. He was also on beta ariella dose being adjusted by cardiology. No significant respiratory distress. He is currently on 2 L of oxygen by nasal cannula. Antibiotic coverage includes a combination of vancomycin and Levaquin. Reevaluated today on 01/16/2021, patient remains about the same, intermittently confused, continues to have some draining from the abdominal ones, one of the blood cultures came back positive for presumptive MRSA. Patient is being followed by infectious disease and he is on multiple antibiotics. Chest x-ray continues to show evidence of interstitial edema, however considering his blood pressure is marginal, his Lasix was placed on hold. WBC count today is 2.8 hemoglobin is 11.8 electrolytes are normal BUN is up to 76 creatinine 3.21. Improving, patient is being followed by nephrology. Objective - Vital Signs Vital signs: Vital Signs Temp 98 F 01/16/21 11:59 Pulse 106 H 01/16/21 11:59 Resp 16 01/16/21 11:59 BP 86/60 01/16/21 11:59 Pulse Ox 100 01/16/21 11:59 Intake & Output 01/15/21 01/16/21 01/16/21 18:59 06:59 18:59 Intake Total 1580 1100 0 Output Total 2277 1525 1 Balance -697 -425 -1 Weight 124.5 kg Intake: Intake, IV Titration 1100 1100 Amount DAPTOmycin 800 mg In 50 Sodium Chloride 0.9% 50 ml @ 100 mls/hr IVPB Q48H [facility] Rx#:[id number] Dextrose 5% in Water 1, 300 300 000 ml @ 50 mls/hr IV . Q23H [facility] with Sodium Bicarb (1 Meq/ml) 150 ml Rx#:[id number] Sodium Chloride 0.9% 1, 300 000 ml @ 50 mls/hr IV . Q20H [facility] Rx#:[id number] Sodium Chloride 0.9% 500 250 ml 500 ml @ 999 mls/hr IV .Q31M ONE Rx#:[id number] Sodium Chloride 0.9% 500 500 ml 500 ml @ 999 mls/hr IV .Q31M ONE Rx#:[id number] Vancomycin 2,000 mg In 500 Sodium Chloride 0.9% 500 ml 500 ml @ 167 mls/hr IVPB ONCE ONE Rx#: [id number] Oral 480 0 Output: Urine 2275 1525 Uretheral (Swain) 825 825 Stool 2 1 Other: Voiding Method Indwelling Catheter Indwelling Catheter Indwelling Catheter # Bowel Movements 3 - Exam GENERAL EXAM: Revealed a 50-year-old white male in no distress, slightly confused. HEAD: Normocephalic/atraumatic. EYES: Normal reaction of pupils, equal size. Conjunctiva pink, sclera white. NOSE: Clear with pink turbinates. THROAT: No erythema or exudates. NECK: No masses, no JVD, no thyroid enlargement, no adenopathy. CHEST: No chest wall deformity. Symmetrical expansion. LUNGS: Equal air entry with no crackles, wheeze, rhonchi or dullness. CVS: Regular rate and rhythm, normal S1 and S2, no gallops, no murmurs, no rubs ABDOMEN: Soft, nontender. No hepatosplenomegaly, normal bowel sounds, no guarding or rigidity. Multiple superficial healing wounds on the left abdomen, covered with a dressing, minimal drainage, nonpurulent. Large incisional hernia on the right abdomen EXTREMITIES: No clubbing, no edema, no cyanosis, 2+ pulses and upper and lower extremities. Chronic venous changes with dark discoloration noted of the lower extremities bilaterally. MUSCULOSKELETAL: Muscle strength and tone normal. SKIN: Abdominal wounds. Chronic venous stasis changes noted in lower extremities bilaterally. CENTRAL NERVOUS SYSTEM: Lethargic, generalized weakness in all 4 extremities. - Labs CBC & Chem 7: 01/16/21 07:21 01/16/21 07:21 Labs: Abnormal Lab Results - Last 24 Hours (Table) 01/16/21 01/16/21 01/16/21 Range/Units 07: 07:21 11:01 WBC 2.8 L (3.8-10.6) k/uL RBC 3.91 L (4.30-5.90) m/uL Hgb 11.8 L (13.0-17.5) gm/dL Hct 35.1 L (39.0-53.0) % RDW 21.8 H (11.5-15.5) % Plt Count 97 L (150-450) k/uL Lymphocytes # (Manual) 0.56 L (1.0-4.8) k/uL Potassium 3.2 L (3.5-5.1) mmol/L BUN 76 H (9-20) mg/dL Creatinine 3.21 H (0.66-1.25) mg/dL POC Glucose (mg/dL) 74 L (75-99) mg/dL Creatine Kinase 35 L (55-170) U/L TSH 6.880 H (0.465-4.680) mIU/L Microbiology - Last 24 Hours (Table) 01/14/21 11:23 Blood Culture Gram Stain - Preliminary Blood Blood Culture - Preliminary Presumptive MRSA 01/14/21 11:19 Blood Culture Gram Stain - Preliminary Blood Blood Culture - Preliminary Staphylococcus aureus Assessment and Plan Assessment: Impression: Acute systolic congestive heart failure, with interstitial edema, cannot rule out underlying pneumonia, but felt to be less likely. Chronic atrial fibrillation. Acute metabolic encephalopathy, multifactorial. Hypotension with intravascular volume depletion Nonhealing chronic abdominal ones. MRSA bacteremia, most likely source is his abdominal wounds Obstructive sleep apnea syndrome Morbid obesity Benign essential hypertension Coronary artery disease and previous PCI and stenting of the circumflex and LAD History of DVT Acute kidney injury/acute tubular necrosis on top of a chronic kidney disease stage III Chronic kidney disease stage III Resident of [facility]. Chronic atrial fibrillation. Recommendation: Continue antibiotics as per infectious disease on the case, patiently is now on daptomycin Continue to hold diuretics. Since the blood pressure is marginal. Titrate oxygen accordingly. Continue amiodarone and digoxin. Neurology to assess mental status. Continue to monitor x-rays of the chest. Overall prognosis remains guarded. We'll continue to follow Time with Patient: Less than 30
[2021-01-16 17:01] LABS: Glucose,Whole Blood 70 mg/dL (75-99)
--- NOTE | 2021-01-16 17:02 | P.PN ---
Progress Note - Text Progress Note Date: 01/16/21 History of presenting complaint: 50-year-old patient, follows with Dr. Bhatt. Chronic stable medical conditions include diabetes with peripheral neuropathy, atrial fibrillation, coronary artery disease with stent, COPD, hypertension, hyperlipidemia, chronic kidney disease, kidney stones,(s) sleep apnea does not use a device, multiple abdominal surgeries for hiatal hernia, also history of tracheostomy, peripheral arterial disease, diverticulosis,. 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 Normally uses a scooter or a walker to get about. Patient has chronic breakdown of superficial skin on the abdominal wall from scratching. Admitted with acute on chronic hypoxic respiratory failure, metabolic encephalopathy, acute and chronic heart failure, possible right basilar pneumonia, COPD exacerbation, acute kidney injury on CK D, paroxysmal atrial fibrillation. Patient has been receiving IV fluids for low blood pressure the same time IV Lasix for fluid overload. Blood cultures positive for staph aureus. On IV daptomycin. Patient DO NOT RESUSCITATE January 16: Patient lethargic. . Eating about 25% with assistance. Able to answer simple questions. Blood pressure running on the lower side. In atrial fibrillation, heart rate in 1 teens Review of systems: Was done for constitutional, cardiovascular, GI, pulmonary. relevant finding as above Active Medications Acetaminophen (Acetaminophen Tab 325 Mg Tab) 650 mg PO Q6HR PRN PRN Reason: Mild Pain or Fever > 100.5 Last Admin: 01/16/21 06:35 Dose: 650 mg Documented by: Albuterol/Ipratropium (Ipratropium-Albuterol 3 Ml Neb) 3 ml INHALATION RT-Q6H [facility] Last Admin: 01/16/21 14:55 Dose: Not Given Documented by: Amiodarone HCl (Amiodarone 200 Mg Tab) 400 mg PO BID [facility] Last Admin: 01/16/21 09:28 Dose: 400 mg Documented by: Apixaban (Apixaban 5 Mg Tab) 5 mg PO BID [facility]; Protocol Last Admin: 01/16/21 09:28 Dose: 5 mg Documented by: Atorvastatin Calcium (Atorvastatin 40 Mg Tab) 40 mg PO HS@2000 [facility] Last Admin: 01/15/21 20:32 Dose: 40 mg Documented by: Bupropion HCl (Bupropion Xl 150 Mg Tab.Er.24h) 150 mg PO DAILY [facility] Last Admin: 01/16/21 09:28 Dose: 150 mg Documented by: Furosemide (Furosemide 10 Mg/Ml 4 Ml Vial) 40 mg IV Q12HR [facility] Last Admin: 01/16/21 09:40 Dose: Not Given Documented by: Daptomycin 800 mg/ Sodium (Chloride) 50 mls @ 100 mls/hr IVPB Q48H [facility]; Protocol Last Admin: 01/15/21 14:42 Dose: 100 mls/hr Documented by: Sodium Chloride (Saline 0.9%) 1,000 mls @ 50 mls/hr IV .Q20H [facility] Last Admin: 01/16/21 06:35 Dose: 50 mls/hr Documented by: Levofloxacin (Levofloxacin 750 Mg Tab) 750 mg PO Q48H [facility] Last Admin: 01/15/21 18:06 Dose: 750 mg Documented by: Levothyroxine Sodium (Levothyroxine 25 Mcg Tab) 25 mcg PO HS@1999 [facility] Last Admin: 01/15/21 20:32 Dose: 25 mcg Documented by: Miscellaneous Information (Potassium Replacement Protocol 1 Each Misc) 1 each MISCELLANE DAILY PRN; Protocol PRN Reason: Per Protocol Multivitamins (Multivitamins, Thera 1 Each Tab) 1 each PO HS [facility] Last Admin: 01/15/21 20:32 Dose: 1 each Documented by: Naloxone HCl (Naloxone 0.4 Mg/Ml 1 Ml Vial) 0.2 mg IV Q2M PRN PRN Reason: Opioid Reversal Oxycodone/Acetaminophen (Oxycodone-Apap 5-325mg 1 Each Tab) 1 each PO Q4HR PRN PRN Reason: Pain Senna (Sennosides 8.6 Mg Tab) 8.6 mg PO BID [facility] Last Admin: 01/16/21 09:29 Dose: 8.6 mg Documented by: Sertraline HCl (Sertraline 50 Mg Tab) 50 mg PO HS@1999 [facility] Last Admin: 01/15/21 20:32 Dose: 50 mg Documented by: Past medical history to include: Atrial fibrillation, coronary artery disease with stent, congestive heart failure EF 30-35%, COPD, DVT, hypertension, hyperlipidemia, chronic kidney disease, obstructive sleep apnea, hypothyroid, peripheral artery disease, chronic kidney disease stage III, kidney stones, DVT in left leg in 2004,: Abscess with bowel resection, multiple abdominal surgeries for hiatal hernia,. Bladder prolonged hospitalization and prolonged medical-related dependent, with a tracheostomy tube, peripheral arterial disease, colonic diverticulosis, iron deficiency anemia,. Diabetes with peripheral neuropathy Social history: Patient is on disability. Patient smoked for about 10 years and stopped in 2008. No alcohol. Patient lives alone. Does have a scooter and a walker Physical examination: VITAL SIGNS: 98.2, 92, 16, 94 x 54, 99% on 3 L GENERAL: Laying in bed, lethargic but awake EYES: Pupils equal. Conjunctiva normal. NECK: JVD unable to assess; masses not palpable. HEART: Heart sounds irregular; minimal edema. LUNGS: Respiratory rate increased; decreased breath sounds ABDOMEN: Soft, nontender, liver spleen not palpable, no masses palpable, superficial breakdown of skin, and multiple areas, with loose dressing. PSYCH: Patient able tonsil simple questions. Tired EXTREMITIES: Pigmentation of the both lower extremity distally INVESTIGATIONS, reviewed in the clinical context: January 16: WBC 2.8 hemoglobin 11.8 platelets 97 potassium 3.2 BUN 76 creatinine 3.21 Chest x-ray [January 16]: Infiltrate versus venous congestion. Stable EEG: Background slowing. 2-D echocardiogram: Moderate concentric LVH. EF 35-40%. Moderate MR. Previous labs: Creatinine 4.41 on January 03 Creatinine 2.75 one November 03 Assessment: -Acute on chronic congestive heart exacerbation EF 35-40% from systolic dysfunction from underlying coronary artery disease. Slow to respond IV Lasix 40 mg every 12 -Persistent atrial flutter fibrillation with ventricular rate uncontrolled Amiodarone. 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 Baseline creatinine around 2.7 -Obstructive sleep apnea does not use a device -Hypothyroid Synthroid 25 g -Peripheral arterial disease -Multiple abdominal wall hernia from prior surgery -Colonic diverticulosis, asymptomatic Follow clinically -Obesity BMI 37.2 -Diabetes mellitus type 2 chronically on insulin. With peripheral neuropathy Follow Accu-Cheks -Acute metabolic encephalopathy Follow closely -Bacteremia with positive blood cultures for staph aureus, likely source abdominal wall skin. IV daptomycin -DO NOT RESUSCITATE Patient getting IV fluids 50 mL hour. On IV Lasix. Feeding with assistance. Prognosis guarded.
[2021-01-16] MEDS ORDERED: VANCOMYCIN 2,000 MG in SODIUM CHLORIDE 0.9% 500 ML 500 ML IVPB SCH (18:00)
[2021-01-16] MEDS: SERTRALINE 50 MG TAB PO SCH (20:18)
[2021-01-16] MEDS: LEVOTHYROXINE 25 MCG TAB PO SCH (20:18)
[2021-01-16] MEDS: ATORVASTATIN 40 MG TAB PO SCH (20:18)
[2021-01-16] MEDS: MULTIVITAMINS, THERA 1 EACH TAB PO SCH (20:18)
[2021-01-16 20:21] LABS: Glucose,Whole Blood 80 mg/dL (75-99)
[2021-01-17] MEDS: IPRATROPIUM-ALBUTEROL 3 ML NEB INHALATION SCH ×4 (02:02→16:19)
[2021-01-17] MEDS: SODIUM CHLORIDE 0.9% 1,000 ML IV SCH (02:15)
[2021-01-17 06:33] LABS: Glucose,Whole Blood 66 mg/dL (75-99)
[2021-01-17 06:48] LABS: Glucose,Whole Blood 67 mg/dL (75-99)
[2021-01-17 07:04] LABS: Glucose,Whole Blood 68 mg/dL (75-99)
[2021-01-17 07:22] LABS: Glucose,Whole Blood 76 mg/dL (75-99)
[2021-01-17 07:29] LABS: Methylmalonic Acid 0.41 umol/L (<0.40)
[2021-01-17 08:43] LABS: Anisocytosis Moderate; Basophils % (A) 1 %; Eosinophils # (A) 0.6 k/uL (0-0.7); Eosinophils % (A) 18 %; HCT 36.3 % (39.0-53.0); HGB 11.9 gm/dL (13.0-17.5); Hypochromasia Moderate; Lymphocytes # (A) 0.8 k/uL (1.0-4.8); Lymphocytes % (A) 25 %; MCHC 32.7 g/dL (31.0-37.0); MCV 91.7 fL (80.0-100.0); Macrocytosis Slight; Mean Platelet Volume 8.9; Monocytes # (A) 0.3 k/uL (0-1.0); Monocytes % (A) 9 %; Neutrophils # (A) 1.4 k/uL (1.3-7.7); Neutrophils % (A) 44 %; Poikilocytosis Slight; RBC 3.95 m/uL (4.30-5.90); RDW 22.3 % (11.5-15.5); WBC 3.2 k/uL (3.8-10.6)
--- NOTE | 2021-01-17 08:43 | P.PN ---
Subjective Patient is seen in follow-up for acute kidney injury on chronic kidney disease. Creatinine 3.21 as of yesterday. Morning labs pending. Maintained on IV Lasix. Nonoliguric. Denies chest pain or shortness of breath. On 2 L nasal cannula. Vital signs are stable. Blood pressure in the lower side. General: The patient appeared well nourished and normally developed. HEENT: Head exam is unremarkable. On nasal cannula. LUNGS: Breath sounds decreased. HEART: Rate and Rhythm are regular. ABDOMEN: Soft, obese. EXTREMITITES: Trace edema. Chronic changes noted. Objective - Vital Signs Vital signs: Vital Signs Temp 97.4 F L 01/17/21 03:05 Pulse 110 H 01/17/21 07:51 Resp 17 01/17/21 03:05 BP 93/73 01/17/21 03:05 Pulse Ox 97 01/17/21 03:05 Intake & Output 01/16/21 01/17/21 01/17/21 18:59 06:59 18:59 Intake Total 120 540 Output Total 1 950 Balance 119 -950 540 Weight 126 kg Intake: Oral 120 540 Output: Urine 950 Stool 1 Other: Voiding Method Indwelling Catheter Indwelling Catheter # Bowel Movements 1 - Labs CBC & Chem 7: 01/16/21 07:21 01/16/21 07:21 Labs: Abnormal Lab Results - Last 24 Hours (Table) 01/13/21 01/16/21 01/16/21 Range/Units 06:47 07:21 07:21 Plt Count 97 L (150-450) k/uL Lymphocytes # (Manual) 0.56 L (1.0-4.8) k/uL Potassium 3.2 L (3.5-5.1) mmol/L BUN 76 H (9-20) mg/dL Creatinine 3.21 H (0.66-1.25) mg/dL POC Glucose (mg/dL) (75-99) mg/dL Creatine Kinase 35 L (55-170) U/L Methylmalonic Acid 0.41 H (<0.40) umol/L TSH 6.880 H (0.465-4.680) mIU/L 01/16/21 01/16/21 01/17/21 Range/Units 11:01 16:49 06:31 Plt Count (150-450) k/uL Lymphocytes # (Manual) (1.0-4.8) k/uL Potassium (3.5-5.1) mmol/L BUN (9-20) mg/dL Creatinine (0.66-1.25) mg/dL POC Glucose (mg/dL) 74 L 70 L 66 L (75-99) mg/dL Creatine Kinase (55-170) U/L Methylmalonic Acid (<0.40) umol/L TSH (0.465-4.680) mIU/L 01/17/21 01/17/21 Range/Units 06:46 07:02 Plt Count (150-450) k/uL Lymphocytes # (Manual) (1.0-4.8) k/uL Potassium (3.5-5.1) mmol/L BUN (9-20) mg/dL Creatinine (0.66-1.25) mg/dL POC Glucose (mg/dL) 67 L 68 L (75-99) mg/dL Creatine Kinase (55-170) U/L Methylmalonic Acid (<0.40) umol/L TSH (0.465-4.680) mIU/L Microbiology - Last 24 Hours (Table) 01/16/21 18:30 Gram Stain - Preliminary Abdomen Wound Culture - Preliminary 01/14/21 11:23 Blood Culture Gram Stain - Preliminary Blood Blood Culture - Preliminary Presumptive MRSA Assessment and Plan Plan: Assessment: 1. Acute kidney injury secondary to ATN secondary to cardiorenal syndrome and infection. Renal function better. Creatinine 3.21 yesterday. 2. Chronic kidney disease stage IIIB/4 secondary to nephrosclerosis and cardiorenal syndrome. Baseline creatinine recently near 2.6-2.7. 3. Acute on chronic systolic CHF with ejection fraction of 35-40% with moderate mitral regurgitation. 4. Volume overload. 5. Metabolic acidosis secondary to acute kidney injury. Improved. 6. Staph aureus bacteremia on antibiotics. ID following. 7. Hypokalemia from diuresis and intracellular shifting from IV bicarb. Replace. Plan: Maintain IV Lasix. Avoid nephrotoxins. Continue to monitor renal function and urine output. Morning labs pending.
--- NOTE | 2021-01-17 08:55 | PN ---
PROGRESS NOTE DATE OF SERVICE: 01/16/2021 REASON FOR FOLLOWUP: MRSA bacteremia, possible endovascular source. INTERVAL HISTORY: The patient is afebrile. The patient is more awake and alert today. He is breathing comfortably. The patient denies having any chest pain, shortness of breath. Occasional cough. No abdominal pain, no diarrhea. PHYSICAL EXAMINATION: Blood pressure 94/54 with a pulse of 92, temperature 98.2. He is 99% on 3 L nasal cannula. General description is a middle-aged male lying in no distress. Respiratory system: Unlabored breathing. Clear to auscultation anteriorly. Heart: S1, S2. Regular rate and rhythm. Abdomen soft, currently dressed, no drainage on the dressing. LABS: Hemoglobin is 11.1, BUN of 76, creatinine 7.21. Blood culture with presumptive MRSA. DIAGNOSTIC IMPRESSION AND PLAN: Patient with MRSA bacteremia, concern for possible endovascular source. There was a question of ( ) and the patient is covered with daptomycin because of his penicillin and cephalosporin allergy. Blood cultures will be repeated to document clearance of bacteremia and may benefit from ( ) abdominal wound local wound care with dry Aquacel Silver dressing. MMODL / IJN: [id number] /
[2021-01-17 08:57] LABS: Platelet Count 94 k/uL (150-450)
[2021-01-17 09:01] LABS: Magnesium 1.8 mg/dL (1.6-2.3); Potassium 3.4 mmol/L (3.5-5.1)
[2021-01-17] MEDS: FUROSEMIDE 10 MG/ML 4 ML VIAL IV SCH ×2 (09:23→20:19)
[2021-01-17] MEDS: buPROPion XL 150 MG TAB.ER.24H PO SCH (09:23)
[2021-01-17] MEDS: SENNOSIDES 8.6 MG TAB PO SCH ×3 (09:24→20:19)
[2021-01-17] MEDS: APIXABAN 5 MG TAB PO SCH ×2 (09:24→20:18)
[2021-01-17] MEDS: AMIODARONE 200 MG TAB PO SCH ×2 (09:24→20:18)
[2021-01-17] MEDS: POTASSIUM CHLORIDE ER 20 MEQ TAB.ER PO SCH ×3 (10:46→15:27)
--- NOTE | 2021-01-17 10:59 | P.PN ---
Subjective Progress Note Date: 01/17/21 Principal diagnosis: Acute systolic congestive heart failure with interstitial edema, cannot rule out underlying pneumonia however clinically is felt to be less likely. A 50-year-old white male patient with multiple medical problems including hypertension, hyperlipidemia, chronic atrial fibrillation, this episode of myocardial infarction CHF with diastolic dysfunction, coronary artery disease, COPD, diabetes mellitus type 2, sleep apnea, hypothyroidism, history of DVT, and chronic nonhealing abdominal wounds. Patient has a history of colonic abscess with a bowel resection. We saw the patient in consultation in October 2020 when he was hospitalized with acute exacerbation of CHF. On 01/11/2021 patient presented to the emergency department per EMS for evaluation of altered mental status. Patient is a poor historian. Patient resides in the local [facility]. Apparently she was having decreased appetite, and increased lethargy and confusion. There is no reported fever or difficulty breathing, no cough, no chest discomfort. Most of the history is obtained from the chart, patient is lethargic, and there is no family around. It's unclear whether or not he wears oxygen and CPAP at the senior living. Brain CT showed the ventricles, basal cisterns and sulci overlying the cerebral convexities demonstrating mild enlargement of the patient's age group. Chest x-ray showed right lower lobe infiltrate. Lab work showed a white blood cell count of 3.2, hemoglobin of 12.4, INR is 1.4, sodium is 147, potassium is 4.2, chloride is 113, CO2 17, BUN is 57, creatinine is 3.79, showing acute kidney injury, hyponatremia, dehydration. His proBNP came back at 26,005 100, troponin was negative at less than 0.012, LFTs were within normal limits, pro-calcitonin level was 0.38, ur inalysis showed large amount of blood, 1+ protein, rare bacteria and mucus, but no clear evidence of urinary tract infection. Urine drug screen was negative. Patient has been afebrile since admission, blood pressure is stable, no hypotension, EKG showed atrial flutter with variable AV block, with a rate of 112 BPM, and nonspecific ST and T-wave abnormality. Of note patient was hypoglycemic in the emergency department but sugar of 66, and 1 amp of 50% dextrose was given with subsequent improvement of patient's blood sugars. Lung sounds are essentially clear, patient briefly wakes up, he denies any cough or congestion, no phlegm production. He is not able to tell us whether or not he wears CPAP at home as he is falling asleep. He does have superficial healing wounds on his abdomen which are covered with dressing, he is on Eliquis for history of chronic atrial fibrillation. Vital signs are stable right now. Started on Levaquin empirically, she did receive 500 mL fluid bolus in the emergency department. Neurology evaluation was requested and is pending at this time, EEG is pending, cardiology is consulted, 2-D echocardiogram has been ordered. Wound services are following in regards to the chronic abdominal wounds and patient has a sacral wound as well. Today's evaluation on 01/13/2021 patient seen in follow-up on selective care. He is still very confused, he is awake, he is arousable, however she makes poor eye contact, he thinks he is in [place], he thought there was a word sitting on his foot, he thinks he lives in [place] by himself in a house. Room air pulse ox was noted to be around 76 and subsequently patient was placed on 2 L of oxygen and pulse ox improved to 100%. He appears to be breathing comfortably, no cough, no congestion, no complaints of chest discomfort. No evidence of respiratory distress. EEG was done and showed abnormal EEG, due to background slowing of at least moderate to severe degree suggestive of generalized cerebral dysfunction related to sick metabolic encephalopathy. There were no focal or generalized epileptiform activity seen on the EEG. Brain CT on admission showed enlargement of the ventricles, basal cisterns and sulci with no evidence of intracranial hemorrhage or sulcal effacement. Repeat chest x-ray was reviewed showing interstitial edema though infiltrates of other etiology were not completely excluded, nevertheless patient is covered with empiric antibiotics in the form of Levaquin. he had no fever or chills, today's labs have been reviewed, his white blood cell count is stable at 3.2, hemoglobin is 12.9, sodium is 143, potassium is 4.0, chloride is 111, CO2 16, BUN of 57, and creatinine of 3.61. Patient has been tolerating oral intake, although she does need supervision and assistance with it. No episodes of choking or coughing were noted. His abdominal wounds actually show improvement in the amount of healing, according to the wound care service. They're currently covered with dressings, urine culture has been sent. Abdomen is soft, there has been no vomiting, no diarrhea. The status of his CPAP device at the senior living is unknown, however reviewing his sleep study from several years ago is apparent that patient has severe sleep apnea with AHI score of 55 and up to 90 during the REM sleep. Current settings on his CPAP device are unknown, we will try to get a hold of the ECF to inquire about that 01/14/2021, the patient is being seen in follow-up. As mentioned earlier, he is a 50-year-old male patient with extensive comorbidities including CHF, diastolic heart failure, chronic atrial fibrillation, morbid obesity, obstructive sleep apnea, hypertension, previous history of CT, and massive and several abdominal surgeries work requiring bowel resection and currently his abdominal wall is essentially loose and there is obvious dehiscence of the abdominal muscles with some superficial wounds have been nonhealing for quite sometime. The patient came to with worsening appetite, diminished level of consciousness, and some difficulty breathing. His echocardiogram is showing an ejection fraction of 35- 40% and there is a combination of systolic and diastolic heart failure. He has also not to moderate RV enlargement, normal LV, moderate mitral regurgitation, PA pressures 37. Earlier this morning he was found to be in nature fibrillation with rapid ventricular response. He is currently on 05 mg by mouth twice a day for rate control. He is also on metoprolol 25 mg by mouth twice a day he had his chest x-rays showing pulmonary vessel congestion. Some limited effusion lung bases bilaterally. He remains on 2 L of oxygen by nasal cannula. No clear signs of pneumonia. No cough or congestion. He is on Levaquin as an empiric antibiotic coverage. He does have chronic edema lower extremities bilaterally. His mentation is still altered and he waxes and wanes. He was able to communicate with me. He is not cooperative. Doesn't volunteer any significant information. Neurologist on the case. EEG was abnormal and there is cerebral dysfunction consistent with encephalopathy. 01/15/2021, the patient is still doing poorly. He remains confused. He has draining abdominal wounds. One of the blood cultures came positive for gram- positive cocci. He is also having liquidy stool and for C. diff has been checked and sent. Results of the pending for now. He also developed some hypotension. His systolic blood pressures the mid 80s. He'll be given bolus of IV fluids. His heart rate is under better control. He is tachycardic regarding his atrial fibrillation. He is on a combination of amiodarone and digoxin for rate control. He was also on beta ariella dose being adjusted by cardiology. No significant respiratory distress. He is currently on 2 L of oxygen by nasal cannula. Antibiotic coverage includes a combination of vancomycin and Levaquin. Reevaluated today on 01/16/2021, patient remains about the same, intermittently confused, continues to have some draining from the abdominal ones, one of the blood cultures came back positive for presumptive MRSA. Patient is being followed by infectious disease and he is on multiple antibiotics. Chest x-ray continues to show evidence of interstitial edema, however considering his blood pressure is marginal, his Lasix was placed on hold. WBC count today is 2.8 hemoglobin is 11.8 electrolytes are normal BUN is up to 76 creatinine 3.21. Improving, patient is being followed by nephrology. The patient is seen today 01/17/2021 in follow-up on the selective care unit. He is currently resting fairly comfortably in bed. A bit more awake and alert. Maintaining O2 saturations in the 90s on 2 L/m per nasal cannula. He is afebrile. Slightly tachycardic. Blood cultures positive for methicillin- resistant Staphylococcus aureus. Abdominal wound culture pending. Urine culture no growth. White count 3.2. Hemoglobin 11.9. Platelets 94,000. Sodium 141. Potassium 3.4. Bicarb 19. Creatinine 3.21. He remains on IV diuretics. Amiodarone for rate control. Eliquis for anticoagulation. Antibiotics in the form of daptomycin and Levaquin. Objective - Vital Signs Vital signs: Vital Signs Temp 97.7 F 01/17/21 08:00 Pulse 120 H 01/17/21 08:00 Resp 16 01/17/21 08:00 BP 100/67 01/17/21 08:00 Pulse Ox 97 01/17/21 03:05 Intake & Output 01/16/21 01/17/21 01/17/21 18:59 06:59 18:59 Intake Total 120 540 Output Total 1 950 1 Balance 119 -950 539 Weight 126 kg 126 kg Intake: Oral 120 540 Output: Urine 950 Stool 1 1 Other: Voiding Method Indwelling Catheter Indwelling Catheter Indwelling Catheter # Bowel Movements 1 - Exam GENERAL EXAM: Revealed a 50-year-old male patient, on 2 L nasal cannula, in no distress, less confused. HEAD: Normocephalic/atraumatic. EYES: Normal reaction of pupils, equal size. Conjunctiva pink, sclera white. NOSE: Clear with pink turbinates. THROAT: No erythema or exudates. NECK: No masses, no JVD, no thyroid enlargement, no adenopathy. CHEST: No chest wall deformity. Symmetrical expansion. LUNGS: Equal air entry with few scattered crackles. CVS: Regular rate and rhythm, normal S1 and S2, no gallops, no murmurs, no rubs ABDOMEN: Soft, nontender. No hepatosplenomegaly, normal bowel sounds, no guarding or rigidity. Multiple superficial healing wounds on the left abdomen, covered with a dressing, minimal drainage, nonpurulent. Large incisional hernia on the right abdomen EXTREMITIES: No clubbing, no edema, no cyanosis, 2+ pulses and upper and lower extremities. Chronic venous changes with dark discoloration noted of the lower extremities bilaterally. MUSCULOSKELETAL: Muscle strength and tone normal. SKIN: Abdominal wounds. Chronic venous stasis changes noted in lower extremities bilaterally. CENTRAL NERVOUS SYSTEM: More awake and alert, generalized weakness in all 4 extremities. - Labs CBC & Chem 7: 01/17/21 07:43 01/17/21 07:43 Labs: Abnormal Lab Results - Last 24 Hours (Table) 01/13/21 01/16/21 01/16/21 Range/Units 06:47 07:21 11:01 WBC (3.8-10.6) k/uL RBC (4.30-5.90) m/uL Hgb (13.0-17.5) gm/dL Hct (39.0-53.0) % RDW (11.5-15.5) % Plt Count (150-450) k/uL Lymphocytes # (1.0-4.8) k/uL Potassium 3.2 L (3.5-5.1) mmol/L Chloride (98-107) mmol/L Carbon Dioxide (22-30) mmol/L BUN 76 H (9-20) mg/dL Creatinine 3.21 H (0.66-1.25) mg/dL POC Glucose (mg/dL) 74 L (75-99) mg/dL Creatine Kinase 35 L (55-170) U/L Methylmalonic Acid 0.41 H (<0.40) umol/L TSH 6.880 H (0.465-4.680) mIU/L 01/16/21 01/17/21 01/17/21 Range/Units 16:49 06:31 06:46 WBC (3.8-10.6) k/uL RBC (4.30-5.90) m/uL Hgb (13.0-17.5) gm/dL Hct (39.0-53.0) % RDW (11.5-15.5) % Plt Count (150-450) k/uL Lymphocytes # (1.0-4.8) k/uL Potassium (3.5-5.1) mmol/L Chloride (98-107) mmol/L Carbon Dioxide (22-30) mmol/L BUN (9-20) mg/dL Creatinine (0.66-1.25) mg/dL POC Glucose (mg/dL) 70 L 66 L 67 L (75-99) mg/dL Creatine Kinase (55-170) U/L Methylmalonic Acid (<0.40) umol/L TSH (0.465-4.680) mIU/L 01/17/21 01/17/21 01/17/21 Range/Units 07:02 07:43 07:43 WBC 3.2 L (3.8-10.6) k/uL RBC 3.95 L (4.30-5.90) m/uL Hgb 11.9 L (13.0-17.5) gm/dL Hct 36.3 L (39.0-53.0) % RDW 22.3 H (11.5-15.5) % Plt Count 94 L (150-450) k/uL Lymphocytes # 0.8 L (1.0-4.8) k/uL Potassium 3.4 L (3.5-5.1) mmol/L Chloride 108 H (98-107) mmol/L Carbon Dioxide 19 L (22-30) mmol/L BUN 72 H (9-20) mg/dL Creatinine 3.21 H (0.66-1.25) mg/dL POC Glucose (mg/dL) 68 L (75-99) mg/dL Creatine Kinase 37 L (55-170) U/L Methylmalonic Acid (<0.40) umol/L TSH (0.465-4.680) mIU/L Microbiology - Last 24 Hours (Table) 01/14/21 11:23 Blood Culture Gram Stain - Final Blood Blood Culture - Final Methicillin resist S. aureus 01/16/21 18:30 Gram Stain - Preliminary Abdomen Wound Culture - Preliminary Assessment and Plan Assessment: 1 Acute systolic congestive heart failure, with interstitial edema, cannot rule out underlying pneumonia, but felt to be less likely. 2 Chronic atrial fibrillation. Anticoagulated with Eliquis 3 Acute metabolic encephalopathy, multifactorial. 4 Hypotension with intravascular volume depletion 5 Nonhealing chronic abdominal ones. 6 MRSA bacteremia, most likely source is his abdominal wounds 7 Obstructive sleep apnea syndrome 8 Morbid obesity 9 Benign essential hypertension 10 Coronary artery disease and previous PCI and stenting of the circumflex and LAD 11 History of DVT 12 Acute kidney injury/acute tubular necrosis on top of a chronic kidney disease stage III 13 Chronic kidney disease stage III 14 Resident of [facility]. Plan: The patient was seen and evaluated by Dr. Adams Wound cultures pending Continue daptomycin and Levaquin Repeat blood cultures Continue bronchodilators More awake and alert today Prognosis remains guarded We will continue to follow I, the cosigning physician, performed a history & physical examination of the patient. Lungs sounds with few scattered crackles. Maintaining good O2 saturations in the 90s on 2 L nasal cannula. I discussed the assessment and plan of care with my nurse practitioner, Bailey Mckeon. I attest to the above note as dictated by her.
[2021-01-17 11:44] LABS: Glucose,Whole Blood 81 mg/dL (75-99)
--- NOTE | 2021-01-17 12:19 | P.PN ---
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 He follows in the office with Dr. Wood. We have been asked to see in consultation for AAlex estrada with RVR and heart failure. Apparently patient has had increased stress due to the COVID-19 pandemic and his mother . He has slowly declined. He is currently at a half-way. Patient is a poor historian, unable to indicate why he came to the emergency department. Apparently over the last several days, care staff at the half-way became concerned due to altered mental status. And patient was sent to the emergency department. EKG revealed atrial fibrilation, heart rate 112. Laboratory data on admission, WBC 3.1, sodium 147, BUN 57, serum creatinine 3.7, magnesium 2.1, BNP 26,500 previously 35,000 01/12/21: Patient underwent EEG which was abnormal due to background slowing of at least moderate to severe degree. Suggestive of generalized cerebral dysfunction as seen with toxic metabolic encephalopathy or due to diffuse structural brain abnormality. Patient started on IV fluids and IV bicarb. 01/13: Echocardiogram revealed EF 35-40%, RV is mildly mildly enlarged, moderate mitral regurgitation, mild tricuspid regurgitation, mild pulmonary hypertension, RVSP 37mmHg. 01/17/21 Patient seen and examined. Patient remains confused. Denies any chest pain or pressure. Patient with MRSA bactermia, on Levaquin and Daptomycin per infectious disease. 3.8L urine output past 24 hours. Telemetry reviewed, patient in atrial fibrillation HR 90-120. His blood pressures have been borderline SBP in the 80s to low 100s. Currently maintained on amiodarone 400 mg twice a day, Eliquis 5 mg twice a day, atorvastatin 40 mg nightly, IV Lasix 40mg BID. Laboratory data reviewed, WBC 3.2, Hgb 11.2, Plt 94, sodium 141, potassium 3.4, BUN 72, serum creatinine 3.2 PHYSICAL EXAMINATION CONSTITUTIONAL: No apparent distress. Morbidly obese. HEENT: Head is normocephalic. No JVD. No carotid bruit. CHEST EXAMINATION: Lungs diminished bilaterally, no wheezes or rhonchi. HEART EXAMINATION: Irregular rate and rhythm. S1, S2 heard. Systolic ejection murmur at the base, no gallops or rub. ABDOMEN: Soft, Left sided wound covered with dressing. Positive bowel sounds. EXTREMITIES: 2+ peripheral pulses, Bilateral legs with venous insufficiency, bilateral ecchymosis. and no calf tenderness. NEUROLOGIC EXAMINATION: Patient is awake, alert, oriented to person only. ASSESSMENT Chronic persistent atrial fibrillation with rapid ventricular response Acute on chronic systolic heart failure EF Hypernatremia Altered Mental Status, likely multifactorial Acute on Chronic kidney disease Coronary artery disease status post PCI to the circumflex and LAD with a total occlusion of the RCA History of Hypertension Dyslipidemia Type 2 Diabetes mellitus COPD Morbid obesity Medication noncompliance Chronic nicotine dependence Diarrhea Gram positive cocci bacteremia- MRSA Hypotension Hypokalemia Pancytopenia PLAN Continue amiodarone (started 01/13) Replace potassium Patient's heart rates remained mildly elevated, continues to be hypotensive, patient with MRSA bacteremia Diuresis per Nephrology Continue with current supportive care. Follow renal function and electrolytes in the morning. Continue eliquis for thromboembolic protection. Ongoing telemetry monitoring. Nephrology and ID following Further recommendations to follow based upon clinical course. Objective - Vital Signs Vital signs: Vital Signs Temp 97.4 F L 01/17/21 03:05 Pulse 110 H 01/17/21 07:51 Resp 17 01/17/21 03:05 BP 93/73 01/17/21 03:05 Pulse Ox 97 01/17/21 03:05 Intake & Output 01/16/21 01/17/21 01/17/21 18:59 06:59 18:59 Intake Total 120 540 Output Total 1 950 Balance 119 -950 540 Weight 126 kg 126 kg Intake: Oral 120 540 Output: Urine 950 Stool 1 Other: Voiding Method Indwelling Catheter Indwelling Catheter # Bowel Movements 1 - Labs CBC & Chem 7: 01/17/21 07:43 01/17/21 07:43 Labs: Abnormal Lab Results - Last 24 Hours (Table) 01/13/21 01/16/21 01/16/21 Range/Units 06:47 07: 07:21 WBC (3.8-10.6) k/uL RBC (4.30-5.90) m/uL Hgb (13.0-17.5) gm/dL Hct (39.0-53.0) % RDW (11.5-15.5) % Plt Count 97 L (150-450) k/uL Lymphocytes # (1.0-4.8) k/uL Lymphocytes # (Manual) 0.56 L (1.0-4.8) k/uL Potassium 3.2 L (3.5-5.1) mmol/L Chloride (98-107) mmol/L Carbon Dioxide (22-30) mmol/L BUN 76 H (9-20) mg/dL Creatinine 3.21 H (0.66-1.25) mg/dL POC Glucose (mg/dL) (75-99) mg/dL Creatine Kinase 35 L (55-170) U/L Methylmalonic Acid 0.41 H (<0.40) umol/L TSH 6.880 H (0.465-4.680) mIU/L 01/16/21 01/16/21 01/17/21 Range/Units 11:01 16:49 06:31 WBC (3.8-10.6) k/uL RBC (4.30-5.90) m/uL Hgb (13.0-17.5) gm/dL Hct (39.0-53.0) % RDW (11.5-15.5) % Plt Count (150-450) k/uL Lymphocytes # (1.0-4.8) k/uL Lymphocytes # (Manual) (1.0-4.8) k/uL Potassium (3.5-5.1) mmol/L Chloride (98-107) mmol/L Carbon Dioxide (22-30) mmol/L BUN (9-20) mg/dL Creatinine (0.66-1.25) mg/dL POC Glucose (mg/dL) 74 L 70 L 66 L (75-99) mg/dL Creatine Kinase (55-170) U/L Methylmalonic Acid (<0.40) umol/L TSH (0.465-4.680) mIU/L 01/17/21 01/17/21 01/17/21 Range/Units 06:46 07:02 07:43 WBC 3.2 L (3.8-10.6) k/uL RBC 3.95 L (4.30-5.90) m/uL Hgb 11.9 L (13.0-17.5) gm/dL Hct 36.3 L (39.0-53.0) % RDW 22.3 H (11.5-15.5) % Plt Count 94 L (150-450) k/uL Lymphocytes # 0.8 L (1.0-4.8) k/uL Lymphocytes # (Manual) (1.0-4.8) k/uL Potassium (3.5-5.1) mmol/L Chloride (98-107) mmol/L Carbon Dioxide (22-30) mmol/L BUN (9-20) mg/dL Creatinine (0.66-1.25) mg/dL POC Glucose (mg/dL) 67 L 68 L (75-99) mg/dL Creatine Kinase (55-170) U/L Methylmalonic Acid (<0.40) umol/L TSH (0.465-4.680) mIU/L 01/17/21 Range/Units 07:43 WBC (3.8-10.6) k/uL RBC (4.30-5.90) m/uL Hgb (13.0-17.5) gm/dL Hct (39.0-53.0) % RDW (11.5-15.5) % Plt Count (150-450) k/uL Lymphocytes # (1.0-4.8) k/uL Lymphocytes # (Manual) (1.0-4.8) k/uL Potassium 3.4 L (3.5-5.1) mmol/L Chloride 108 H (98-107) mmol/L Carbon Dioxide 19 L (22-30) mmol/L BUN 72 H (9-20) mg/dL Creatinine 3.21 H (0.66-1.25) mg/dL POC Glucose (mg/dL) (75-99) mg/dL Creatine Kinase 37 L (55-170) U/L Methylmalonic Acid (<0.40) umol/L TSH (0.465-4.680) mIU/L Microbiology - Last 24 Hours (Table) 01/16/21 18:30 Gram Stain - Preliminary Abdomen Wound Culture - Preliminary 01/14/21 11:23 Blood Culture Gram Stain - Preliminary Blood Blood Culture - Preliminary Presumptive MRSA
--- NOTE | 2021-01-17 12:50 | PN ---
PROGRESS NOTE DATE OF SERVICE: 01/17/2021 REASON FOR FOLLOWUP: MRSA bacteremia. INTERVAL HISTORY: Patient is currently afebrile. The patient is feeling better. Breathing comfortably. Denies having any chest pain or cough. No nausea, vomiting. No abdominal pain. No diarrhea. PHYSICAL EXAMINATION: Blood pressure 100/57 pulse of 120, temperature 97.7. General description is a middle- aged male lying in bed in no distress. Respiratory system: Unlabored breathing. Clear to auscultation anteriorly. Heart S1, S2. Regular rate and rhythm. Abdomen: Soft. Abdominal wound is currently covered. No drainage on the dressing. LABS: Hemoglobin 11.8, white count 3.2, creatinine 3.21. Blood culture with MRSA, sensitivity is currently pending. DIAGNOSTIC IMPRESSION AND PLAN: Patient with MRSA bacteremia, concern for possible endovascular source. No obvious source. The patient did have an echocardiogram. May benefit from TAMIA. Blood cultures repeat to document clearance of bacteremia. Continue with daptomycin and continue supportive care. MMODL / IJN: [id number] /
[2021-01-17 16:56] LABS: Glucose,Whole Blood 79 mg/dL (75-99)
--- NOTE | 2021-01-17 18:26 | P.PN ---
Progress Note - Text Progress Note Date: 01/17/21 History of presenting complaint: 50-year-old patient, follows with Dr. Bhatt. Chronic stable medical conditions include diabetes with peripheral neuropathy, atrial fibrillation, coronary artery disease with stent, COPD, hypertension, hyperlipidemia, chronic kidney disease, kidney stones,(s) sleep apnea does not use a device, multiple abdominal surgeries for hiatal hernia, also history of tracheostomy, peripheral arterial disease, diverticulosis,. 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 Normally uses a scooter or a walker to get about. Patient has chronic breakdown of superficial skin on the abdominal wall from scratching. Admitted with acute on chronic hypoxic respiratory failure, metabolic encephalopathy, acute and chronic heart failure, possible right basilar pneumonia, COPD exacerbation, acute kidney injury on CK D, paroxysmal atrial fibrillation. Patient has been receiving IV fluids for low blood pressure the same time IV Lasix for fluid overload. Blood cultures positive for staph aureus. On IV daptomycin. Patient DO NOT RESUSCITATE January 16: Patient lethargic. . Eating about 25% with assistance. Able to answer simple questions. Blood pressure running on the lower side. In atrial fibrillation, heart rate in 1 teens January 3: Patient bit more awake today. tired. Needing assistance for feeding. Answering simple questions. Blood pressure remains in the lower side. Atrial fibrillation remains uncontrolled. some loose stools. Discussed with Dr. russell from ID. KENNETH Golden. Redness in the groin area. Review of systems: Was done for constitutional, cardiovascular, GI, pulmonary. relevant finding as above Active Medications Acetaminophen (Acetaminophen Tab 325 Mg Tab) 650 mg PO Q6HR PRN PRN Reason: Mild Pain or Fever > 100.5 Last Admin: 01/16/21 06:35 Dose: 650 mg Documented by: Albuterol/Ipratropium (Ipratropium-Albuterol 3 Ml Neb) 3 ml INHALATION RT-Q6H [facility] Last Admin: 01/17/21 16:19 Dose: Not Given Documented by: Amiodarone HCl (Amiodarone 200 Mg Tab) 400 mg PO BID [facility] Last Admin: 01/17/21 09:24 Dose: 400 mg Documented by: Apixaban (Apixaban 5 Mg Tab) 5 mg PO BID [facility]; Protocol Last Admin: 01/17/21 09:24 Dose: 5 mg Documented by: Atorvastatin Calcium (Atorvastatin 40 Mg Tab) 40 mg PO HS@2000 [facility] Last Admin: 01/16/21 20:18 Dose: 40 mg Documented by: Bupropion HCl (Bupropion Xl 150 Mg Tab.Er.24h) 150 mg PO DAILY [facility] Last Admin: 01/17/21 09:23 Dose: 150 mg Documented by: Cyanocobalamin (Cyanocobalamin 1,000 Mcg/Ml 1 Ml Vial) 1,000 mcg IM DAILY [facility] Stop: 01/20/21 18:01 Furosemide (Furosemide 10 Mg/Ml 4 Ml Vial) 40 mg IV Q12HR [facility] Last Admin: 01/17/21 09:23 Dose: 40 mg Documented by: Daptomycin 800 mg/ Sodium (Chloride) 50 mls @ 100 mls/hr IVPB Q48H [facility]; Protocol Last Admin: 01/17/21 13:19 Dose: 100 mls/hr Documented by: Levothyroxine Sodium (Levothyroxine 25 Mcg Tab) 25 mcg PO HS@1999 [facility] Last Admin: 01/16/21 20:18 Dose: 25 mcg Documented by: Miscellaneous Information (Potassium Replacement Protocol 1 Each Misc) 1 each MISCELLANE DAILY PRN; Protocol PRN Reason: Per Protocol Multivitamins (Multivitamins, Thera 1 Each Tab) [address] [facility] Last Admin: 01/16/21 20:18 Dose: 1 each Documented by: Naloxone HCl (Naloxone 0.4 Mg/Ml 1 Ml Vial) 0.2 mg IV Q2M PRN PRN Reason: Opioid Reversal Oxycodone/Acetaminophen (Oxycodone-Apap 5-325mg 1 Each Tab) 1 each PO Q4HR PRN PRN Reason: Pain Pyridoxine HCl (Pyridoxine 50 Mg Tab) 50 mg PO DAILY [facility] Senna (Sennosides 8.6 Mg Tab) 8.6 mg PO BID [facility] Last Admin: 01/17/21 09:58 Dose: Not Given Documented by: Sertraline HCl (Sertraline 50 Mg Tab) 50 mg PO @1999 [facility] Last Admin: 01/16/21 20:18 Dose: 50 mg Documented by: Past medical history to include: Atrial fibrillation, coronary artery disease with stent, congestive heart failure EF 30-35%, COPD, DVT, hypertension, hyperlipidemia, chronic kidney disease, obstructive sleep apnea, hypothyroid, peripheral artery disease, chronic kidney disease stage III, kidney stones, DVT in left leg in 2004,: Abscess with bowel resection, multiple abdominal surgeries for hiatal hernia,. Bladder prolonged hospitalization and prolonged medical-related dependent, with a tracheostomy tube, peripheral arterial disease, colonic diverticulosis, iron d eficiency anemia,. Diabetes with peripheral neuropathy Social history: Patient is on disability. Patient smoked for about 10 years and stopped in 2008. No alcohol. Patient lives alone. Does have a scooter and a walker Physical examination: VITAL SIGNS: 98.7, 110, 18, 100/61, 100% on 2 L GENERAL: Laying in bed, but more awake today. EYES: Pupils equal. Conjunctiva normal. NECK: JVD unable to assess; masses not palpable. HEART: Heart sounds irregular; minimal edema. LUNGS: Respiratory rate increased; decreased breath sounds ABDOMEN: Soft, nontender, liver spleen not palpable, no masses palpable, superficial breakdown of skin, and multiple areas, with dressing. DERMATOLOGICAL: Excoriation in the buttock area. Redness in the contiguous - groin area PSYCH: Answering simple questions. Tired EXTREMITIES: Pigmentation of the both lower extremity distally INVESTIGATIONS, reviewed in the clinical context: January 16: WBC 2.8 hemoglobin 11.8 platelets 97 potassium 3.2 BUN 76 creatinine 3.21 Chest x-ray [January 16]: Infiltrate versus venous congestion. Stable EEG: Background slowing. 2-D echocardiogram: Moderate concentric LVH. EF 35-40%. Moderate MR. Previous labs: Creatinine 4.41 on January 03 Creatinine 2.75 one November 03 Assessment: -Acute on chronic congestive heart exacerbation EF 35-40% from systolic dysfunction from underlying coronary artery disease. Slow to respond IV Lasix 40 mg every 12 -Persistent atrial flutter fibrillation with ventricular rate: uncontrolled Amiodarone. 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 Baseline creatinine around 2.7 -Obstructive sleep apnea does not use a device -Hypothyroid Synthroid 25 g -Peripheral arterial disease -Multiple abdominal wall hernia from prior surgery -Colonic diverticulosis, asymptomatic Follow clinically -Obesity BMI 37.2 -Diabetes mellitus type 2 chronically on insulin. With peripheral neuropathy Follow Accu-Cheks -Acute metabolic encephalopathy [multifactorial]: Slow to respond Follow closely -Bacteremia with positive blood cultures for staph aureus, likely source abdominal wall skin. IV daptomycin -Loose stools. Possibly antibiotic associated diarrhea. Rule out C. diff -Intertriginous alena infection Nystatin powder -DO NOT RESUSCITATE Continue IV Lasix. Sent stool for C. diff. Nystatin powder. Add Lopressor 12.5 twice a day [hold for systolic blood pressure less than 90]. Prognosis guarded
[2021-01-17 20:10] LABS: Glucose,Whole Blood 67 mg/dL (75-99)
[2021-01-17] MEDS: NYSTATIN 100,000 UNIT/GM POWD 15 GM TOPICAL SCH (20:17)
[2021-01-17] MEDS: CYANOCOBALAMIN 1,000 MCG/ML 1 ML VIAL IM SCH (20:18)
[2021-01-17] MEDS: ATORVASTATIN 40 MG TAB PO SCH (20:18)
[2021-01-17] MEDS: MULTIVITAMINS, THERA 1 EACH TAB PO SCH (20:18)
[2021-01-17] MEDS: LEVOTHYROXINE 25 MCG TAB PO SCH (20:18)
[2021-01-17] MEDS: SERTRALINE 50 MG TAB PO SCH (20:18)
[2021-01-17] MEDS: PYRIDOXINE 50 MG TAB PO SCH (20:18)
[2021-01-17] MEDS: METOPROLOL TARTRATE 12.5 MG TAB PO SCH (20:19)
[2021-01-17 20:25] LABS: Glucose,Whole Blood 67 mg/dL (75-99)
[2021-01-17 20:39] LABS: Glucose,Whole Blood 82 mg/dL (75-99)
[2021-01-18] MEDS: IPRATROPIUM-ALBUTEROL 3 ML NEB INHALATION SCH ×4 (03:32→20:41)
[2021-01-18 06:56] LABS: Glucose,Whole Blood 73 mg/dL (75-99)
[2021-01-18 08:16] LABS: Magnesium 1.9 mg/dL (1.6-2.3); Potassium 3.8 mmol/L (3.5-5.1)
[2021-01-18] MEDS: AMIODARONE 200 MG TAB PO SCH ×2 (08:37→21:14)
[2021-01-18] MEDS: METOPROLOL TARTRATE 12.5 MG TAB PO SCH ×3 (08:37→21:14)
[2021-01-18] MEDS: APIXABAN 5 MG TAB PO SCH ×2 (08:37→21:14)
[2021-01-18] MEDS: FUROSEMIDE 10 MG/ML 4 ML VIAL IV SCH ×3 (08:37→19:47)
[2021-01-18] MEDS: buPROPion XL 150 MG TAB.ER.24H PO SCH (08:37)
[2021-01-18] MEDS: CYANOCOBALAMIN 1,000 MCG/ML 1 ML VIAL IM SCH (08:38)
[2021-01-18] MEDS: NYSTATIN 100,000 UNIT/GM POWD 15 GM TOPICAL SCH ×2 (08:38→21:14)
[2021-01-18] MEDS: PYRIDOXINE 50 MG TAB PO SCH (08:38)
[2021-01-18] MEDS: SENNOSIDES 8.6 MG TAB PO SCH ×2 (08:38→21:14)
[2021-01-18] MEDS ORDERED: SODIUM BICARB 8.4% 50 ML SYR (1 MEQ/ML) IV STA (09:27)
--- NOTE | 2021-01-18 09:28 | P.PN ---
Subjective Patient is seen in follow-up for acute kidney injury on chronic kidney disease. Renal function better. Maintained on IV Lasix. Nonoliguric. Denies chest pain or shortness of breath. On 2 L nasal cannula. Continues to have loose bowel movements. Vital signs are stable. Blood pressure in the lower side. General: The patient appeared well nourished and normally developed. HEENT: Head exam is unremarkable. On nasal cannula. LUNGS: Breath sounds decreased. HEART: Rate and Rhythm are regular. ABDOMEN: Soft, obese. EXTREMITITES: Trace edema. Chronic changes noted. Objective - Vital Signs Vital signs: Vital Signs Temp 97.6 F 01/18/21 08:00 Pulse 92 01/18/21 08:54 Resp 18 01/18/21 08:54 BP 92/48 01/18/21 08:00 Pulse Ox 99 01/18/21 08:44 Intake & Output 01/17/21 01/18/21 01/18/21 18:59 06:59 18:59 Intake Total 780 240 Output Total 701 500 800 Balance 79 -500 -560 Weight 126 kg 125.5 kg Intake: Oral 780 240 Output: Urine 700 500 800 Stool 1 Other: Voiding Method Indwelling Catheter Indwelling Catheter Indwelling Catheter # Bowel Movements 2 1 2 - Labs CBC & Chem 7: 01/17/21 07:43 01/18/21 07:35 Labs: Abnormal Lab Results - Last 24 Hours (Table) 01/17/21 01/17/21 01/18/21 Range/Units 20:08 20:23 06:44 Chloride (98-107) mmol/L Carbon Dioxide (22-30) mmol/L BUN (9-20) mg/dL Creatinine (0.66-1.25) mg/dL Glucose (74-99) mg/dL POC Glucose (mg/dL) 67 L 67 L 73 L (75-99) mg/dL 01/18/21 Range/Units 07:35 Chloride 109 H (98-107) mmol/L Carbon Dioxide 17 L (22-30) mmol/L BUN 71 H (9-20) mg/dL Creatinine 2.92 H (0.66-1.25) mg/dL Glucose 72 L (74-99) mg/dL POC Glucose (mg/dL) (75-99) mg/dL Microbiology - Last 24 Hours (Table) 01/14/21 11:19 Blood Culture Gram Stain - Final Blood Blood Culture - Final Methicillin resist S. aureus 01/14/21 11:23 Blood Culture Gram Stain - Final Blood Blood Culture - Final Methicillin resist S. aureus 01/16/21 18:30 Gram Stain - Preliminary Abdomen Wound Culture - Preliminary Assessment and Plan Plan: Assessment: 1. Acute kidney injury secondary to ATN secondary to cardiorenal syndrome and infection. Renal function better. Creatinine 2.92 today. 2. Chronic kidney disease stage IIIB/4 secondary to nephrosclerosis and cardiorenal syndrome. Baseline creatinine recently near 2.6-2.7. 3. Acute on chronic systolic CHF with ejection fraction of 35-40% with moderate mitral regurgitation. 4. Volume overload. 5. Metabolic acidosis secondary to acute kidney injury and diarrhea. Improved. 6. Staph aureus bacteremia on antibiotics. ID following. 7. Hypokalemia from diuresis and intracellular shifting from IV bicarb. Replaced. Better. Plan: Maintain IV Lasix. Check chest x-ray. Add oral bicarb. Avoid nephrotoxins. Continue to monitor renal function and urine output.
--- NOTE | 2021-01-18 09:37 | XR ---
EXAMINATION TYPE: XR chest 1V portable DATE OF EXAM: 01/18/2021 COMPARISON: 01/15/2021 INDICATION: Short of breath TECHNIQUE: Single frontal view of the chest is obtained. FINDINGS: The heart size is borderline in size. The pulmonary vasculature is upper limits of normal. There is a right lower lobe infiltrate. IMPRESSION: 1. Right lower lobe infiltrate. 2. Borderline cardiomegaly, perivascular markings are normal. Correlate for volume overload.
[2021-01-18] MEDS: SODIUM BICARBONATE TAB 650 MG TAB PO SCH ×3 (11:13→21:45)
--- NOTE | 2021-01-18 11:29 | ECHOF ---
Referral Reason:LV function and valves MEASUREMENTS -------- HEIGHT: 177.8 cm WEIGHT: 125.2 kg BP: RVIDd: 4.1 cm (< 3.3) IVSd: 1.3 cm (0.6 - 1.1) LVIDd: 3.8 cm (3.9 - 5.3) LVPWd: 1.4 cm (0.6 - 1.1) IVSs: 1.4 cm LVIDs: 2.4 cm LVPWs: 1.7 cm RAP: 5.00 mmHg RVSP: 26.66 mmHg FINDINGS -------- This was a technically difficult study with suboptimal views. Limited Study. Previous study done on 01/12/21. Pt was uncooperative. The left ventricular size is normal. There is moderate concentric left ventricular hypertrophy. O verall left ventricular systolic function is mild-moderately impaired with, an EF between 40 - 45 %. There is paradoxical/dysynergic septal motion consistent with right ventricular volume overload and /or elevated right ventricular end-diastolic pressure. The right ventricle is severely enlarged. The aortic valve is trileaflet, and appears structurally normal. No aortic stenosis or regurgitation. The mitral valve leaflets are mildly thickened. Mild mitral regurgitation is present. The tricuspid valve appears structurally normal. Mild tricuspid regurgitation present. Right vent ricular systolic pressure is normal at < 35 mmHg. The pulmonic valve was not well visualized. There is no pericardial effusion. CONCLUSIONS -------- 1. Pt was uncooperative. 2. Limited Study. Previous study done on 01/12/21. 3. There is moderate concentric left ventricular hypertrophy. 4. Overall left ventricular systolic function is mild-moderately impaired with, an EF between 40 - 45 %. 5. There is paradoxical/dysynergic septal motion consistent with right ventricular volume overload an d/or elevated right ventricular end-diastolic pressure. 6. The right ventricle is severely enlarged. 7. The aortic valve is trileaflet, and appears structurally normal. No aortic stenosis or regurgitati on. 8. The mitral valve leaflets are mildly thickened. 9. Mild mitral regurgitation is present. 10. Mild tricuspid regurgitation present. 11. There is no pericardial effusion. SENIOR PHYSICIAN: Dari Tenorio RDCS
--- NOTE | 2021-01-18 11:29 | P.PN ---
Subjective Progress Note Date: 01/18/21 Principal diagnosis: Acute systolic congestive heart failure with interstitial edema, cannot rule out underlying pneumonia however clinically is felt to be less likely. A 50-year-old white male patient with multiple medical problems including hypertension, hyperlipidemia, chronic atrial fibrillation, this episode of myocardial infarction CHF with diastolic dysfunction, coronary artery disease, COPD, diabetes mellitus type 2, sleep apnea, hypothyroidism, history of DVT, and chronic nonhealing abdominal wounds. Patient has a history of colonic abscess with a bowel resection. We saw the patient in consultation in October 2020 when he was hospitalized with acute exacerbation of CHF. On 01/11/2021 patient presented to the emergency department per EMS for evaluation of altered mental status. Patient is a poor historian. Patient resides in the local [facility]. Apparently she was having decreased appetite, and increased lethargy and confusion. There is no reported fever or difficulty breathing, no cough, no chest discomfort. Most of the history is obtained from the chart, patient is lethargic, and there is no family around. It's unclear whether or not he wears oxygen and CPAP at the [facility]. Brain CT showed the ventricles, basal cisterns and sulci overlying the cerebral convexities demonstrating mild enlargement of the patient's age group. Chest x-ray showed right lower lobe infiltrate. Lab work showed a white blood cell count of 3.2, hemoglobin of 12.4, INR is 1.4, sodium is 147, potassium is 4.2, chloride is 113, CO2 17, BUN is 57, creatinine is 3.79, showing acute kidney injury, hyponatremia, dehydration. His proBNP came back at 26,005 100, troponin was negative at less than 0.012, LFTs were within normal limits, pro-calcitonin level was 0.38, ur inalysis showed large amount of blood, 1+ protein, rare bacteria and mucus, but no clear evidence of urinary tract infection. Urine drug screen was negative. Patient has been afebrile since admission, blood pressure is stable, no hypotension, EKG showed atrial flutter with variable AV block, with a rate of 112 BPM, and nonspecific ST and T-wave abnormality. Of note patient was hypoglycemic in the emergency department but sugar of 66, and 1 amp of 50% dextrose was given with subsequent improvement of patient's blood sugars. Lung sounds are essentially clear, patient briefly wakes up, he denies any cough or congestion, no phlegm production. He is not able to tell us whether or not he wears CPAP at home as he is falling asleep. He does have superficial healing wounds on his abdomen which are covered with dressing, he is on Eliquis for history of chronic atrial fibrillation. Vital signs are stable right now. Started on Levaquin empirically, she did receive 500 mL fluid bolus in the emergency department. Neurology evaluation was requested and is pending at this time, EEG is pending, cardiology is consulted, 2-D echocardiogram has been ordered. Wound services are following in regards to the chronic abdominal wounds and patient has a sacral wound as well. Today's evaluation on 01/13/2021 patient seen in follow-up on selective care. He is still very confused, he is awake, he is arousable, however she makes poor eye contact, he thinks he is in [place], he thought there was a word sitting on his foot, he thinks he lives in [place] by himself in a house. Room air pulse ox was noted to be around 76 and subsequently patient was placed on 2 L of oxygen and pulse ox improved to 100%. He appears to be breathing comfortably, no cough, no congestion, no complaints of chest discomfort. No evidence of respiratory distress. EEG was done and showed abnormal EEG, due to background slowing of at least moderate to severe degree suggestive of generalized cerebral dysfunction related to sick metabolic encephalopathy. There were no focal or generalized epileptiform activity seen on the EEG. Brain CT on admission showed enlargement of the ventricles, basal cisterns and sulci with no evidence of intracranial hemorrhage or sulcal effacement. Repeat chest x-ray was reviewed showing interstitial edema though infiltrates of other etiology were not completely excluded, nevertheless patient is covered with empiric antibiotics in the form of Levaquin. he had no fever or chills, today's labs have been reviewed, his white blood cell count is stable at 3.2, hemoglobin is 12.9, sodium is 143, potassium is 4.0, chloride is 111, CO2 16, BUN of 57, and creatinine of 3.61. Patient has been tolerating oral intake, although she does need supervision and assistance with it. No episodes of choking or coughing were noted. His abdominal wounds actually show improvement in the amount of healing, according to the wound care service. They're currently covered with dressings, urine culture has been sent. Abdomen is soft, there has been no vomiting, no diarrhea. The status of his CPAP device at the [facility] is unknown, however reviewing his sleep study from several years ago is apparent that patient has severe sleep apnea with AHI score of 55 and up to 90 during the REM sleep. Current settings on his CPAP device are unknown, we will try to get a hold of the [facility] to inquire about that 01/14/2021, the patient is being seen in follow-up. As mentioned earlier, he is a 50-year-old male patient with extensive comorbidities including CHF, diastolic heart failure, chronic atrial fibrillation, morbid obesity, obstructive sleep apnea, hypertension, previous history of [place], and massive and several abdominal surgeries work requiring bowel resection and currently his abdominal wall is essentially loose and there is obvious dehiscence of the abdominal muscles with some superficial wounds have been nonhealing for quite sometime. The patient came to with worsening appetite, diminished level of consciousness, and some difficulty breathing. His echocardiogram is showing an ejection fraction of 35- 40% and there is a combination of systolic and diastolic heart failure. He has also not to moderate RV enlargement, normal LV, moderate mitral regurgitation, PA pressures 37. Earlier this morning he was found to be in nature fibrillation with rapid ventricular response. He is currently on 05 mg by mouth twice a day for rate control. He is also on metoprolol 25 mg by mouth twice a day he had his chest x-rays showing pulmonary vessel congestion. Some limited effusion lung bases bilaterally. He remains on 2 L of oxygen by nasal cannula. No clear signs of pneumonia. No cough or congestion. He is on Levaquin as an empiric antibiotic coverage. He does have chronic edema lower extremities bilaterally. His mentation is still altered and he waxes and wanes. He was able to communicate with me. He is not cooperative. Doesn't volunteer any significant information. Neurologist on the case. EEG was abnormal and there is cerebral dysfunction consistent with encephalopathy. 01/15/2021, the patient is still doing poorly. He remains confused. He has draining abdominal wounds. One of the blood cultures came positive for gram- positive cocci. He is also having liquidy stool and for C. diff has been checked and sent. Results of the pending for now. He also developed some hypotension. His systolic blood pressures the mid 80s. He'll be given bolus of IV fluids. His heart rate is under better control. He is tachycardic regarding his atrial fibrillation. He is on a combination of amiodarone and digoxin for rate control. He was also on beta ariella dose being adjusted by cardiology. No significant respiratory distress. He is currently on 2 L of oxygen by nasal cannula. Antibiotic coverage includes a combination of vancomycin and Levaquin. Reevaluated today on 01/16/2021, patient remains about the same, intermittently confused, continues to have some draining from the abdominal ones, one of the blood cultures came back positive for presumptive MRSA. Patient is being followed by infectious disease and he is on multiple antibiotics. Chest x-ray continues to show evidence of interstitial edema, however considering his blood pressure is marginal, his Lasix was placed on hold. WBC count today is 2.8 hemoglobin is 11.8 electrolytes are normal BUN is up to 76 creatinine 3.21. Improving, patient is being followed by nephrology. The patient is seen today 01/17/2021 in follow-up on the selective care unit. He is currently resting fairly comfortably in bed. A bit more awake and alert. Maintaining O2 saturations in the 90s on 2 L/m per nasal cannula. He is afebrile. Slightly tachycardic. Blood cultures positive for methicillin- resistant Staphylococcus aureus. Abdominal wound culture pending. Urine culture no growth. White count 3.2. Hemoglobin 11.9. Platelets 94,000. Sodium 141. Potassium 3.4. Bicarb 19. Creatinine 3.21. He remains on IV diuretics. Amiodarone for rate control. Eliquis for anticoagulation. Antibiotics in the form of daptomycin and Levaquin. The patient is seen today 01/18/2021 in follow-up in the selective care unit. He is awake and alert. He is resting comfortably in bed. He is maintaining O2 saturations up to 99% on 2 L/m per nasal cannula. He is utilizing CPAP at night at 8 cm of water with C-Flex of 2 and FiO2 at 28%. Chest x-ray continues to show a right lower lobe infiltrate. There is borderline cardiomegaly. Some evidence of volume overload. Blood cultures are positive for penicillin resistant Staphylococcus aureus. Abdominal wound culture pending. Sodium 140. Potassium 3.8. Bicarbonate 17. Creatinine 2.92. Glucose 72. He remains on bronchodilators, IV diuretics, daptomycin. Anticoagulated with Eliquis. Nephrology is following. He is on sodium bicarb tablets. Objective - Vital Signs Vital signs: Vital Signs Temp 97.6 F 01/18/21 08:00 Pulse 92 01/18/21 08:54 Resp 18 01/18/21 08:54 BP 92/48 01/18/21 08:00 Pulse Ox 99 01/18/21 08:44 Intake & Output 01/17/21 01/18/21 01/18/21 18:59 06:59 18:59 Intake Total 780 240 Output Total 701 500 800 Balance 79 -500 -560 Weight 126 kg 125.5 kg Intake: Oral 780 240 Output: Urine 700 500 800 Stool 1 Other: Voiding Method Indwelling Catheter Indwelling Catheter Indwelling Catheter # Bowel Movements 2 1 2 - Exam GENERAL EXAM: Pleasant 50-year-old male patient, on 2 L nasal cannula, in no acute distress, less confused. HEAD: Normocephalic/atraumatic. EYES: Normal reaction of pupils, equal size. Conjunctiva pink, sclera white. NOSE: Clear with pink turbinates. THROAT: No erythema or exudates. NECK: No masses, no JVD, no thyroid enlargement, no adenopathy. CHEST: No chest wall deformity. Symmetrical expansion. LUNGS: Equal air entry with few scattered crackles. CVS: Regular rate and rhythm, normal S1 and S2, no gallops, no murmurs, no rubs ABDOMEN: Soft, nontender. No hepatosplenomegaly, normal bowel sounds, no guarding or rigidity. Multiple superficial healing wounds on the left abdomen, covered with a dressing, minimal drainage, nonpurulent. Large incisional hernia on the right abdomen EXTREMITIES: No clubbing, no edema, no cyanosis, 2+ pulses and upper and lower extremities. Chronic venous changes with dark discoloration noted of the lower extremities bilaterally. MUSCULOSKELETAL: Muscle strength and tone normal. SKIN: Abdominal wounds. Chronic venous stasis changes noted in lower extremit ies bilaterally. CENTRAL NERVOUS SYSTEM: More awake and alert, generalized weakness in all 4 extremities. - Labs CBC & Chem 7: 01/17/21 07:43 01/18/21 07:35 Labs: Abnormal Lab Results - Last 24 Hours (Table) 01/17/21 01/17/21 01/18/21 Range/Units 20:08 20:23 06:44 Chloride (98-107) mmol/L Carbon Dioxide (22-30) mmol/L BUN (9-20) mg/dL Creatinine (0.66-1.25) mg/dL Glucose (74-99) mg/dL POC Glucose (mg/dL) 67 L 67 L 73 L (75-99) mg/dL 01/18/21 Range/Units 07:35 Chloride 109 H (98-107) mmol/L Carbon Dioxide 17 L (22-30) mmol/L BUN 71 H (9-20) mg/dL Creatinine 2.92 H (0.66-1.25) mg/dL Glucose 72 L (74-99) mg/dL POC Glucose (mg/dL) (75-99) mg/dL Microbiology - Last 24 Hours (Table) 01/14/21 11:19 Blood Culture Gram Stain - Final Blood Blood Culture - Final Methicillin resist S. aureus 01/14/21 11:23 Blood Culture Gram Stain - Final Blood Blood Culture - Final Methicillin resist S. aureus 01/16/21 18:30 Gram Stain - Preliminary Abdomen Wound Culture - Preliminary Assessment and Plan Assessment: 1 Acute systolic congestive heart failure, with interstitial edema, cannot rule out underlying pneumonia, but felt to be less likely. 2 Chronic atrial fibrillation. Anticoagulated with Eliquis 3 Acute metabolic encephalopathy, multifactorial. Improved. 4 Hypotension with intravascular volume depletion, recovered 5 Nonhealing chronic abdominal wounds. 6 MRSA bacteremia, most likely source is his abdominal wounds 7 Obstructive sleep apnea syndrome, on CPAP. 8 cm of water with C-Flex of 2, 28% FiO2. 8 Morbid obesity 9 Benign essential hypertension 10 Coronary artery disease and previous PCI and stenting of the circumflex and LAD 11 History of DVT 12 Acute kidney injury/acute tubular necrosis on top of a chronic kidney disease stage III 13 Chronic kidney disease stage III 14 Resident of [facility]. Plan: The patient was seen and evaluated by Dr. Adams Continue daptomycin Continue bronchodilators Remains on 2 L nasal cannula, alternating with CPAP We will continue to follow I, the cosigning physician, performed a history & physical examination of the patient. Lungs sounds with few scattered crackles. Maintaining good O2 saturations in the 90s on 2 L nasal cannula. I discussed the assessment and plan of care with my nurse practitioner, Bailey Mckeon. I attest to the above note as dictated by her.
[2021-01-18 11:44] LABS: Glucose,Whole Blood 74 mg/dL (75-99)
--- NOTE | 2021-01-18 13:02 | CDI ---
Documentation Clarification Form Date: 01/18/2021 12:28:47 PM From: Verenice Bryan RN CCDS Admit Date: 01/12/2021 11:57:00 AM Patient Name: Maximo Cerna Visit Number: [id number] Discharge Date: ATTENTION: The Clinical Documentation Specialists (CDI) and [facility] Coding Staff appreciate your assistance in clarifying documentation. Please respond to the clarification below the line at the bottom and electronically sign. The CDI & [facility] Coding staff will review the response and follow-up if needed. Please note: Queries are made part of the Legal Health Record. If you have any questions, please contact the author of this message via ITS. Dr. Vamshi Barrera, There is documentation of bacteremia with positive blood cultures for staph aureus, likely source abdominal wall skin, 01/16, Medicine progress note. Bacteremia is considered a lab finding. Additional clarification regarding bacteremia is requested. Patient history/risk factors: 50-year-old male presents to the ED from senior living with worsening altered mental status. Medical History: CAD, Angina, CHF, DM, CKD 3 and chronic abdominal wounds. H&P 01/11 Clinical Indicators: MRSA bacteremia, most likely source of his abdominal wounds. 01/16 Pulmonology Note He has had poor oral intake as well as diarrhea, now appears to be septic with bacteremia. 01/16 Cardiology Note. VSS: 01/12 B/P 105/70; HR 120; RR 20; Temp 97.9 F oral; SpO2 2L nasal cannula WBC: 01/12 3.1 Lymphocytes: 01/12 0.6 Blood Culture: 01/14 Blood culture gram positive cocci. Gram Stain MRSA. Wound Culture: 01/16 MRSA Consult: 01/16 ID progress note There was a question of () and the patient is covered with daptomycin because of his penicillin allergy. Blood cultures will be repeated to document clearance of bacteremia and may benefit from culture abdominal wound local wound care with dry Aquacel Silver dressing. Treatment: 01/15 0.9NS 500cc bolus x 2 Antibiotics: 01/11 Levaquin 750mg IVPB Q24H x 1,01/13 Levaquin 750mg IVPB Q48H x 1, 01/15 Levaquin 750mg PO Q48H d/c 01/15, 01/15 Daptomycin 800mg IVPB Q48H ZURI to current, 01/15 Vancomycin HCI 2,000mg IVPB 1. Please provide additional clarification regarding the etiology/cause and/or clinical significance of the bacteremia: [ ] Bacteremia is related to sepsis [ ] Bacteremia is due to infectious process, please specify: [ ] Other, please specify [ ] Unable to determine (Template Last Revised: August 2020) Bacteremia due to infected skin/cellulitis MTDD
--- NOTE | 2021-01-18 13:33 | P.PN ---
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 He follows in the office with Dr. Wood. We have been asked to see in consultation for AAlex estrada with RVR and heart failure. Apparently patient has had increased stress due to the COVID-19 pandemic and his mother . He has slowly declined. He is currently at a retirement. Patient is a poor historian, unable to indicate why he came to the emergency department. Apparently over the last several days, care staff at the retirement became concerned due to altered mental status. And patient was sent to the emergency department. EKG revealed atrial fibrilation, heart rate 112. Laboratory data on admission, WBC 3.1, sodium 147, BUN 57, serum creatinine 3.7, magnesium 2.1, BNP 26,500 previously 35,000 01/12/21: Patient underwent EEG which was abnormal due to background slowing of at least moderate to severe degree. Suggestive of generalized cerebral dysfunction as seen with toxic metabolic encephalopathy or due to diffuse structural brain abnormality. Patient started on IV fluids and IV bicarb. 01/13: Echocardiogram revealed EF 35-40%, RV is mildly mildly enlarged, moderate mitral regurgitation, mild tricuspid regurgitation, mild pulmonary hypertension, RVSP 37mmHg. 01/17/21 Patient seen and examined. Patient remains confused. He is awake and alert. Appears comfortable. Denies any chest pain or pressure. 1.2L urine output past 24 hours. Telemetry reviewed, patient in atrial fibrillation HR 90-120. BP 92/48 HR 100, afebrile, 99% on 2L nasal cannula. Currently maintained on amiodarone 400 mg twice a day, Eliquis 5 mg twice a day, atorvastatin 40 mg nightly, IV Lasix 40mg BID. Patient with MRSA bactermia, on Levaquin and Daptomycin per infectious disease. Laboratory data reviewed sodium 140, potassium 3.8, BUN 71, serum creatinine 2.9, magnesium 1.9. Renal function improving. PHYSICAL EXAMINATION CONSTITUTIONAL: No apparent distress. Morbidly obese. HEENT: Head is normocephalic. No JVD. No carotid bruit. CHEST EXAMINATION: Lungs diminished bilaterally, no wheezes or rhonchi. HEART EXAMINATION: Irregular rate and rhythm. S1, S2 heard. Systolic ejection murmur at the base, no gallops or rub. ABDOMEN: Soft, Left sided wound covered with dressing. Positive bowel sounds. EXTREMITIES: 2+ peripheral pulses, Bilateral legs with venous insufficiency, bilateral ecchymosis. and no calf tenderness. NEUROLOGIC EXAMINATION: Patient is awake, alert, oriented to person only. ASSESSMENT Chronic persistent atrial fibrillation with rapid ventricular response Acute on chronic systolic heart failure EF Hypernatremia Altered Mental Status, likely multifactorial Acute on Chronic kidney disease Coronary artery disease status post PCI to the circumflex and LAD with a total occlusion of the RCA History of Hypertension Dyslipidemia Type 2 Diabetes mellitus COPD Morbid obesity Medication noncompliance Chronic nicotine dependence Diarrhea Gram positive cocci bacteremia- MRSA Hypotension Hypokalemia Pancytopenia PLAN Limited Echo today revealed EF 40-45%, RV is severely enlarged, RV volume overload and/or elevated right ventricular end diastolic pressure, mild mitral regurgitation, mild tricuspid regurgitation Metoprolol tartrate 12.5mg increase to TID Continue amiodarone (started 01/13) Patient's heart rates remained mildly elevated, continues to be hypotensive, patient with MRSA bacteremia Diuresis per Nephrology Continue with current supportive care. Follow renal function and electrolytes in the morning. Continue eliquis for thromboembolic protection. Ongoing telemetry monitoring. Nephrology and ID following Further recommendations to follow based upon clinical course. Objective - Vital Signs Vital signs: Vital Signs Temp 97.6 F 01/18/21 08:00 Pulse 88 01/18/21 12:04 Resp 18 01/18/21 12:04 BP 92/48 01/18/21 08:00 Pulse Ox 99 01/18/21 08:44 Intake & Output 01/17/21 01/18/21 01/18/21 18:59 06:59 18:59 Intake Total 780 240 Output Total 701 500 800 Balance 79 -500 -560 Weight 126 kg 125.5 kg Intake: Oral 780 240 Output: Urine 700 500 800 Stool 1 Other: Voiding Method Indwelling Catheter Indwelling Catheter Indwelling Catheter # Bowel Movements 2 1 2 - Labs CBC & Chem 7: 01/17/21 07:43 01/18/21 07:35 Labs: Abnormal Lab Results - Last 24 Hours (Table) 01/17/21 01/17/21 01/18/21 Range/Units 20:08 20:23 06:44 Chloride (98-107) mmol/L Carbon Dioxide (22-30) mmol/L BUN (9-20) mg/dL Creatinine (0.66-1.25) mg/dL Glucose (74-99) mg/dL POC Glucose (mg/dL) 67 L 67 L 73 L (75-99) mg/dL 01/18/21 01/18/21 Range/Units 07:35 11:41 Chloride 109 H (98-107) mmol/L Carbon Dioxide 17 L (22-30) mmol/L BUN 71 H (9-20) mg/dL Creatinine 2.92 H (0.66-1.25) mg/dL Glucose 72 L (74-99) mg/dL POC Glucose (mg/dL) 74 L (75-99) mg/dL Microbiology - Last 24 Hours (Table) 01/14/21 11:19 Blood Culture Gram Stain - Final Blood Blood Culture - Final Methicillin resist S. aureus 01/14/21 11:23 Blood Culture Gram Stain - Final Blood Blood Culture - Final Methicillin resist S. aureus
--- NOTE | 2021-01-18 16:22 | P.PN ---
Progress Note - Text Progress Note Date: 01/18/21 History of presenting complaint: 50-year-old patient, follows with Dr. Bhatt. Chronic stable medical conditions include diabetes with peripheral neuropathy, atrial fibrillation, coronary artery disease with stent, COPD, hypertension, hyperlipidemia, chronic kidney disease, kidney stones,(s) sleep apnea does not use a device, multiple abdominal surgeries for hiatal hernia, also history of tracheostomy, peripheral arterial disease, diverticulosis,. 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 Normally uses a scooter or a walker to get about. Patient has chronic breakdown of superficial skin on the abdominal wall from scratching. Admitted with acute on chronic hypoxic respiratory failure, metabolic encephalopathy, acute and chronic heart failure, possible right basilar pneumonia, COPD exacerbation, acute kidney injury on CK D, paroxysmal atrial fibrillation. Patient has been receiving IV fluids for low blood pressure the same time IV Lasix for fluid overload. Blood cultures positive for staph aureus. On IV daptomycin. Patient DO NOT RESUSCITATE January 2: Patient lethargic. . Eating about 25% with assistance. Able to answer simple questions. Blood pressure running on the lower side. In atrial fibrillation, heart rate in 1 teens January 3: Patient bit more awake today. tired. Needing assistance for feeding. Answering simple questions. Blood pressure remains in the lower side. Atrial fibrillation remains uncontrolled. some loose stools. Discussed with Dr. russell from ID. [facility]. Redness in the groin area. January 18: Laying in bed. Lethargic. But answering questions. Eating about 25- 50%. With assistance. Atrial flutter fibrillation. Uncontrolled Review of systems: Was done for constitutional, cardiovascular, GI, pulmonary. relevant finding as above Active Medications Acetaminophen (Acetaminophen Tab 325 Mg Tab) 650 mg PO Q6HR PRN PRN Reason: Mild Pain or Fever > 100.5 Last Admin: 01/16/21 06:35 Dose: 650 mg Documented by: Albuterol/Ipratropium (Ipratropium-Albuterol 3 Ml Neb) 3 ml INHALATION RT-Q6H [facility] Last Admin: 01/18/21 11:54 Dose: 3 ml Documented by: Amiodarone HCl (Amiodarone 200 Mg Tab) 400 mg PO BID [facility] Last Admin: 01/18/21 08:37 Dose: 400 mg Documented by: Apixaban (Apixaban 5 Mg Tab) 5 mg PO BID [facility]; Protocol Last Admin: 01/18/21 08:37 Dose: 5 mg Documented by: Atorvastatin Calcium (Atorvastatin 40 Mg Tab) 40 mg PO HS@1999 [facility] Last Admin: 01/17/21 20:18 Dose: 40 mg Documented by: Bupropion HCl (Bupropion Xl 150 Mg Tab.Er.24h) 150 mg PO DAILY [facility] Last Admin: 01/18/21 08:37 Dose: 150 mg Documented by: Cyanocobalamin (Cyanocobalamin 1,000 Mcg/Ml 1 Ml Vial) 1,000 mcg IM DAILY [facility] Stop: 01/20/21 18:01 Last Admin: 01/18/21 08:38 Dose: 1,000 mcg Documented by: Furosemide (Furosemide 10 Mg/Ml 4 Ml Vial) 40 mg IV Q12HR [facility] Last Admin: 01/18/21 11:28 Dose: Not Given Documented by: Daptomycin 800 mg/ Sodium (Chloride) 50 mls @ 100 mls/hr IVPB Q24H [facility]; Protocol Levothyroxine Sodium (Levothyroxine 25 Mcg Tab) 25 mcg PO HS@1999 [facility] Last Admin: 01/17/21 20:18 Dose: 25 mcg Documented by: Metoprolol Tartrate (Metoprolol Tartrate 12.5 Mg Tab) 12.5 mg PO TID [facility] Miscellaneous Information (Potassium Replacement Protocol 1 Each Misc) 1 each MISCELLANE DAILY PRN; Protocol PRN Reason: Per Protocol Multivitamins (Multivitamins, Thera 1 Each Tab) 1 each PO HS [facility] Last Admin: 01/17/21 20:18 Dose: 1 each Documented by: Naloxone HCl (Naloxone 0.4 Mg/Ml 1 Ml Vial) 0.2 mg IV Q2M PRN PRN Reason: Opioid Reversal Nystatin (Nystatin 100,000 Unit/Gm Powd 15 Gm) 1 applic TOPICAL BID [facility]; Protocol Last Admin: 01/18/21 08:38 Dose: 1 applic Documented by: Oxycodone/Acetaminophen (Oxycodone-Apap 5-325mg 1 Each Tab) 1 each PO Q4HR PRN PRN Reason: Pain Pyridoxine HCl (Pyridoxine 50 Mg Tab) 50 mg PO DAILY [facility] Last Admin: 01/18/21 08:38 Dose: 50 mg Documented by: Senna (Sennosides 8.6 Mg Tab) 8.6 mg PO BID [facility] Last Admin: 01/18/21 08:38 Dose: Not Given Documented by: Sertraline HCl (Sertraline 50 Mg Tab) 50 mg PO HS@2000 [facility] Last Admin: 01/17/21 20:18 Dose: 50 mg Documented by: Sodium Bicarbonate (Sodium Bicarbonate Tab 650 Mg Tab) 650 mg PO TID [facility] Last Admin: 01/18/21 11:13 Dose: 650 mg Documented by: Past medical history to include: Atrial fibrillation, coronary artery disease with stent, congestive heart failure EF 30-35%, COPD, DVT, hypertension, hyperlipidemia, chronic kidney disease, obstructive sleep apnea, hypothyroid, peripheral artery disease, chronic kidney disease stage III, kidney stones, DVT in left leg in 2004,: Abscess with bowel resection, multiple abdominal surgeries for hiatal hernia,. Bladder prolonged hospitalization and prolonged medical-related dependent, with a tracheostomy tube, peripheral arterial disease, colonic diverticulosis, iron deficiency anemia,. Diabetes with peripheral neuropathy Social history: Patient is on disability. Patient smoked for about 10 years and stopped in 2008. No alcohol. Patient lives alone. Does have a scooter and a walker Physical examination: VITAL SIGNS: 97.6, 100, 16, 92/48, 99% on 2 L GENERAL: Laying in bed, answering questions EYES: Pupils equal. Conjunctiva normal. NECK: JVD unable to assess; masses not palpable. HEART: Heart sounds irregular; minimal edema. LUNGS: Respiratory rate increased; decreased breath sounds ABDOMEN: Soft, nontender, liver spleen not palpable, no masses palpable, superficial breakdown of skin, and multiple areas, with dressing. DERMATOLOGICAL: Excoriation in the buttock area. Redness in the contiguous - groin area PSYCH: Answering simple questions. Tired EXTREMITIES: Pigmentation of the both lower extremity distally INVESTIGATIONS, reviewed in the clinical context: January 18: Potassium 3.8 BUN 71 and creatinine 2.92. Accu-Cheks: 72, 74 January 16: WBC 2.8 hemoglobin 11.8 platelets 97 potassium 3.2 BUN 76 creatinine 3.21 Chest x-ray [January 16]: Infiltrate versus venous congestion. Stable EEG: Background slowing. 2-D echocardiogram: Moderate concentric LVH. EF 35-40%. Moderate MR. Previous labs: Creatinine 4.41 on January 03 Creatinine 2.75 one November 03 Assessment: -Acute on chronic congestive heart exacerbation EF 35-40% from systolic dysfunction from underlying coronary artery disease. Slow to respond IV Lasix 40 mg every 12. -Persistent atrial flutter fibrillation with ventricular rate: uncontrolled Amiodarone. Eliquis Increase Lopressor to 12.5 mg 3 times a day -Acute kidney injury secondary to ATN secondary to cardiorenal syndrome and infection, slowly improving Creatinine 2.92 -Multiple superficial abdominal wall excoriations from scratching, -Dermatotill omania- being followed by wound care team . Add body lotion -COPD in an ex-smoker DuoNeb -Chronic DVT chronically on anticoagulation Eliquis -Hyperlipidemia Lipitor -Chronic kidney disease stage III from diabetic nephropathy and hypertensive nephrosclerosis Follow renal function. Baseline creatinine around 2.7 -Obstructive sleep apnea does not use a device -Hypothyroid Synthroid 25 g -Peripheral arterial disease -Multiple abdominal wall hernia from prior surgery -Colonic diverticulosis, asymptomatic Follow clinically -Obesity BMI 37.2 -Diabetes mellitus type 2 chronically on insulin. With peripheral neuropathy Follow Accu-Cheks -Acute metabolic encephalopathy [multifactorial]: Slow to respond Follow closely -Bacteremia with positive blood cultures for staph aureus, likely source abdominal wall skin. IV daptomycin -Loose stools. Possibly antibiotic associated diarrhea. -Intertriginous alena infection Nystatin powder -Hypoglycemia from decreased oral intake Add glucose tablets -DO NOT RESUSCITATE Continue IV Lasix. Increase Lopressor to 12.5 mg 3 times a day. Add glucose tablets 4 times a day for hypoglycemia. Body lotion to prevent scratching
--- NOTE | 2021-01-18 16:22 | PN ---
PROGRESS NOTE DATE OF SERVICE: 01/18/2021 REASON FOR FOLLOWUP: MRSA bacteremia abdominal wound. INTERVAL HISTORY: The patient is currently afebrile. The patient is breathing comfortably. Denies having any chest pain, shortness of breath, cough. No abdominal pain. No diarrhea. PHYSICAL EXAMINATION: Blood pressure is 92/40 with a pulse of 100, temperature 97.7, pulse ox 99% on 2 L nasal cannula. General description is a middle aged male lying in bed in no distress. Respiratory system: Unlabored breathing. Clear to auscultation anteriorly. Heart S1, S2. Regular rate and rhythm. Abdomen: Soft, no tenderness. Abdominal wound is currently covered. No drainage. LABS: BUN of 71, creatinine is 2.92. Blood culture with MRSA Vanco sensitive. Blood cultures repeat so far negative. DIAGNOSTIC IMPRESSION AND PLAN: Patient with MRSA bacteremia in this patient who did have a clear focus. The patient is currently covered with daptomycin and bacteremia. Concern for possible endovascular source. May benefit from TAMIA. We will discuss further with Cardiology. Continue supportive care. MMODL / IJN: [id number] /
[2021-01-18 16:35] LABS: Glucose,Whole Blood 89 mg/dL (75-99)
[2021-01-18] MEDS: DEXTROSE 4 GM CHEWABLE PO SCH ×3 (17:41→21:14)
[2021-01-18 20:14] LABS: Glucose,Whole Blood 90 mg/dL (75-99)
[2021-01-18] MEDS: LEVOTHYROXINE 25 MCG TAB PO SCH (21:13)
[2021-01-18] MEDS: ATORVASTATIN 40 MG TAB PO SCH (21:14)
[2021-01-18] MEDS: SERTRALINE 50 MG TAB PO SCH (21:14)
[2021-01-18] MEDS: MULTIVITAMINS, THERA 1 EACH TAB PO SCH (21:14)
[2021-01-19] MEDS: IPRATROPIUM-ALBUTEROL 3 ML NEB INHALATION SCH ×4 (01:57→20:21)
[2021-01-19 06:33] LABS: Glucose,Whole Blood 81 mg/dL (75-99)
[2021-01-19 08:47] LABS: Calcium 9.1 mg/dL (8.4-10.2); Magnesium 1.8 mg/dL (1.6-2.3); Potassium 3.4 mmol/L (3.5-5.1)
[2021-01-19] MEDS: NYSTATIN 100,000 UNIT/GM POWD 15 GM TOPICAL SCH ×2 (09:40→21:07)
[2021-01-19] MEDS: METOPROLOL TARTRATE 12.5 MG TAB PO SCH ×3 (09:40→21:06)
[2021-01-19] MEDS: DEXTROSE 4 GM CHEWABLE PO SCH ×4 (09:40→21:07)
[2021-01-19] MEDS: PYRIDOXINE 50 MG TAB PO SCH (09:41)
[2021-01-19] MEDS: CYANOCOBALAMIN 1,000 MCG/ML 1 ML VIAL IM SCH (09:41)
[2021-01-19] MEDS: buPROPion XL 150 MG TAB.ER.24H PO SCH (09:41)
[2021-01-19] MEDS: APIXABAN 5 MG TAB PO SCH ×2 (09:41→21:06)
[2021-01-19] MEDS: FUROSEMIDE 10 MG/ML 4 ML VIAL IV SCH ×2 (09:41→21:07)
[2021-01-19] MEDS: SENNOSIDES 8.6 MG TAB PO SCH ×2 (09:41→21:02)
[2021-01-19] MEDS: AMIODARONE 200 MG TAB PO SCH ×2 (09:41→21:06)
[2021-01-19] MEDS: SODIUM BICARBONATE TAB 650 MG TAB PO SCH ×3 (09:41→21:06)
[2021-01-19] MEDS ORDERED: POTASSIUM CHLORIDE ER 20 MEQ TAB.ER PO STA (09:45)
--- NOTE | 2021-01-19 09:46 | P.PN ---
Subjective Patient is seen in follow-up for acute kidney injury on chronic kidney disease. Renal function slightly worse today. Maintained on IV Lasix. Nonoliguric. Denies chest pain or shortness of breath. On 2 L nasal cannula. Quite lethargic. Vital signs are stable. Blood pressure in the lower side. General: The patient appeared well nourished and normally developed. HEENT: Head exam is unremarkable. On nasal cannula. LUNGS: Breath sounds decreased. HEART: Rate and Rhythm are regular. ABDOMEN: Soft, obese. EXTREMITITES: Trace edema. Chronic changes noted. Objective - Vital Signs Vital signs: Vital Signs Temp 98.0 F 01/19/21 04:04 Pulse 106 H 01/19/21 08:37 Resp 16 01/19/21 04:04 BP 103/64 01/19/21 04:04 Pulse Ox 90 L 01/19/21 08:27 Intake & Output 01/18/21 01/19/21 01/19/21 18:59 06:59 18:59 Intake Total 720 Output Total 1450 250 Balance -730 -250 Weight 126 kg Intake: Oral 720 Output: Urine 1450 250 Other: Voiding Method Indwelling Catheter Indwelling Catheter # Bowel Movements 1 1 - Labs CBC & Chem 7: 01/17/21 07:43 01/19/21 07:57 Labs: Abnormal Lab Results - Last 24 Hours (Table) 01/18/21 01/19/21 Range/Units 11:41 07:57 Potassium 3.4 L (3.5-5.1) mmol/L Carbon Dioxide 21 L (22-30) mmol/L BUN 72 H (9-20) mg/dL Creatinine 3.07 H (0.66-1.25) mg/dL POC Glucose (mg/dL) 74 L (75-99) mg/dL Microbiology - Last 24 Hours (Table) 01/16/21 18:30 Gram Stain - Preliminary Abdomen Wound Culture - Preliminary Presumptive MRSA Rae albicans 01/17/21 10:32 Blood Culture - Preliminary Blood No Growth after 24 hours 01/17/21 10:41 Blood Culture - Preliminary Blood No Growth after 24 hours Assessment and Plan Plan: Assessment: 1. Acute kidney injury secondary to ATN secondary to cardiorenal syndrome and infection. Renal function a little worse compared to yesterday. Creatinine 3.07 today. 2. Chronic kidney disease stage IIIB/4 secondary to nephrosclerosis and cardiorenal syndrome. Baseline creatinine recently near 2.6-2.7. 3. Acute on chronic systolic CHF with ejection fraction of 40-45%. 4. Volume overload. 5. Metabolic acidosis secondary to acute kidney injury and diarrhea. Improved. On oral bicarb. 6. Staph aureus bacteremia on antibiotics. ID following. 7. Hypokalemia from diuresis. Plan: Maintain IV Lasix. Replace potassium. Add midodrine. Avoid nephrotoxins. Continue to monitor renal function and urine output.
[2021-01-19 11:48] LABS: Glucose,Whole Blood 76 mg/dL (75-99)
--- NOTE | 2021-01-19 11:50 | P.PN ---
Subjective Progress Note Date: 01/19/21 Principal diagnosis: Acute systolic congestive heart failure with interstitial edema, cannot rule out underlying pneumonia however clinically is felt to be less likely. A 50-year-old white male patient with multiple medical problems including hypertension, hyperlipidemia, chronic atrial fibrillation, this episode of myocardial infarction CHF with diastolic dysfunction, coronary artery disease, COPD, diabetes mellitus type 2, sleep apnea, hypothyroidism, history of DVT, and chronic nonhealing abdominal wounds. Patient has a history of colonic abscess with a bowel resection. We saw the patient in consultation in October 2020 when he was hospitalized with acute exacerbation of CHF. On 01/11/2021 patient presented to the emergency department per EMS for evaluation of altered mental status. Patient is a poor historian. Patient resides in the local [facility]. Apparently she was having decreased appetite, and increased lethargy and confusion. There is no reported fever or difficulty breathing, no cough, no chest discomfort. Most of the history is obtained from the chart, patient is lethargic, and there is no family around. It's unclear whether or not he [facility] oxygen and [facility]AP [facility] Brain CT showed the ventricles, basal cisterns and sulci overlying the cerebral convexities demonstrating mild enlargement of the patient's age group. Chest x-ray showed right lower lobe infiltrate. Lab work showed a white blood cell count of 3.2, hemoglobin of 12.4, INR is 1.4, sodium is 147, potassium is 4.2, chloride is 113, CO2 17, BUN is 57, creatinine is 3.79, showing acute kidney injury, hyponatremia, dehydration. His proBNP came back at 26,005 100, troponin was negative at less than 0.012, LFTs were within normal limits, pro-calcitonin level was 0.38, ur inalysis showed large amount of blood, 1+ protein, rare bacteria and mucus, but no clear evidence of urinary tract infection. Urine drug screen was negative. Patient has been afebrile since admission, blood pressure is stable, no hypotension, EKG showed atrial flutter with variable AV block, with a rate of 112 BPM, and nonspecific ST and T-wave abnormality. Of note patient was hypoglycemic in the emergency department but sugar of 66, and 1 amp of 50% dextrose was given with subsequent improvement of patient's blood sugars. Lung sounds are essentially clear, patient briefly wakes up, he denies any cough or congestion, no phlegm production. He is not able to tell us whether or not he wears CPAP at home as he is falling asleep. He does have superficial healing wounds on his abdomen which are covered with dressing, he is on Eliquis for history of chronic atrial fibrillation. Vital signs are stable right now. Started on Levaquin empirically, she did receive 500 mL fluid bolus in the emergency department. Neurology evaluation was requested and is pending at this time, EEG is pending, cardiology is consulted, 2-D echocardiogram has been ordered. Wound services are following in regards to the chronic abdominal wounds and patient has a sacral wound as well. Today's evaluation on 01/13/2021 patient seen in follow-up on selective care. He is still very confused, he is awake, he is arousable, however she makes poor eye contact, he thinks he is in [place], he thought there was a word sitting on his foot, he thinks he lives in [place] by himself in a house. Room air pulse ox was noted to be around 76 and subsequently patient was placed on 2 L of oxygen and pulse ox improved to 100%. He appears to be breathing comfortably, no cough, no congestion, no complaints of chest discomfort. No evidence of respiratory distress. EEG was done and showed abnormal EEG, due to background slowing of at least moderate to severe degree suggestive of generalized cerebral dysfunction related to sick metabolic encephalopathy. There were no focal or generalized epileptiform activity seen on the EEG. Brain CT on admission showed enlargement of the ventricles, basal cisterns and sulci with no evidence of intracranial hemorrhage or sulcal effacement. Repeat chest x-ray was reviewed showing interstitial edema though infiltrates of other etiology were not completely excluded, nevertheless patient is covered with empiric antibiotics in the form of Levaquin. he had no fever or chills, today's labs have been reviewed, his white blood cell count is stable at 3.2, hemoglobin is 12.9, sodium is 143, potassium is 4.0, chloride is 111, CO2 16, BUN of 57, and creatinine of 3.61. Patient has been tolerating oral intake, although she does need supervision and assistance with it. No episodes of choking or coughing were noted. His abdominal wounds actually show improvement in the amount of healing, according to the wound care service. They're currently covered with dressings, urine culture has been sent. Abdomen is soft, there has been no vomiting, no diarrhea. The status of his CPAP device [facility] the [facility] is unknown, however reviewing his sleep study from several years ago is apparent that patient has severe sleep apnea with AHI score of 55 and up to 90 during the REM sleep. Current settings on his CPAP device are unknown, we will try to get a hold of the ECF to inquire about that 01/14/2021, the patient is being seen in follow-up. As mentioned earlier, he is a 50-year-old male patient with extensive comorbidities including CHF, diastolic heart failure, chronic atrial fibrillation, morbid obesity, obstructive sleep apnea, hypertension, previous history of ID, and massive and several abdominal surgeries work requiring bowel resection and currently his abdominal wall is essentially loose and there is obvious dehiscence of the abdominal muscles with some superficial wounds have been nonhealing for quite sometime. The patient came to with worsening appetite, diminished level of consciousness, and some difficulty breathing. His echocardiogram is showing an ejection fraction of 35- 40% and there is a combination of systolic and diastolic heart failure. He has also not to moderate RV enlargement, normal LV, moderate mitral regurgitation, PA pressures 37. Earlier this morning he was found to be in nature fibrillation with rapid ventricular response. He is currently on 05 mg by mouth twice a day for rate control. He is also on metoprolol 25 mg by mouth twice a day he had his chest x-rays showing pulmonary vessel congestion. Some limited effusion lung bases bilaterally. He remains on 2 L of oxygen by nasal cannula. No clear signs of pneumonia. No cough or congestion. He is on Levaquin as an empiric antibiotic coverage. He does have chronic edema lower extremities bilaterally. His mentation is still altered and he waxes and wanes. He was able to communicate with me. He is not cooperative. Doesn't volunteer any significant information. Neurologist on the case. EEG was abnormal and there is cerebral dysfunction consistent with encephalopathy. 01/15/2021, the patient is still doing poorly. He remains confused. He has draining abdominal wounds. One of the blood cultures came positive for gram- positive cocci. He is also having liquidy stool and for C. diff has been checked and sent. Results of the pending for now. He also developed some hypotension. His systolic blood pressures the mid 80s. He'll be given bolus of IV fluids. His heart rate is under better control. He is tachycardic regarding his atrial fibrillation. He is on a combination of amiodarone and digoxin for rate control. He was also on beta ariella dose being adjusted by cardiology. No significant respiratory distress. He is currently on 2 L of oxygen by nasal cannula. Antibiotic coverage includes a combination of vancomycin and Levaquin. Reevaluated today on 01/16/2021, patient remains about the same, intermittently confused, continues to have some draining from the abdominal ones, one of the blood cultures came back positive for presumptive MRSA. Patient is being followed by infectious disease and he is on multiple antibiotics. Chest x-ray continues to show evidence of interstitial edema, however considering his blood pressure is marginal, his Lasix was placed on hold. WBC count today is 2.8 hemoglobin is 11.8 electrolytes are normal BUN is up to 76 creatinine 3.21. Improving, patient is being followed by nephrology. The patient is seen today 01/17/2021 in follow-up on the selective care unit. He is currently resting fairly comfortably in bed. A bit more awake and alert. Maintaining O2 saturations in the 90s on 2 L/m per nasal cannula. He is afebrile. Slightly tachycardic. Blood cultures positive for methicillin- resistant Staphylococcus aureus. Abdominal wound culture pending. Urine culture no growth. White count 3.2. Hemoglobin 11.9. Platelets 94,000. Sodium 141. Potassium 3.4. Bicarb 19. Creatinine 3.21. He remains on IV diuretics. Amiodarone for rate control. Eliquis for anticoagulation. Antibiotics in the form of daptomycin and Levaquin. The patient is seen today 01/18/2021 in follow-up in the selective care unit. He is awake and alert. He is resting comfortably in bed. He is maintaining O2 saturations up to 99% on 2 L/m per nasal cannula. He is utilizing CPAP at night at 8 cm of water with C-Flex of 2 and FiO2 at 28%. Chest x-ray continues to show a right lower lobe infiltrate. There is borderline cardiomegaly. Some evidence of volume overload. Blood cultures are positive for penicillin resistant Staphylococcus aureus. Abdominal wound culture pending. Sodium 140. Potassium 3.8. Bicarbonate 17. Creatinine 2.92. Glucose 72. He remains on bronchodilators, IV diuretics, daptomycin. Anticoagulated with Eliquis. Nephrology is following. He is on sodium bicarb tablets. The patient is seen today in follow-up on the selective care unit. He is curre ntly resting comfortably in bed. That more awake and alert today compared to yesterday. Currently denies any worsening shortness of breath, cough or congestion. Maintaining O2 saturations in the 90s on 2 L/m per nasal cannula He remains on DuoNeb inhalations, IV diuretics. Anticoagulated with Eliquis. Antibiotics in the form of daptomycin. Initial blood cultures were positive for MRSA. Abdominal wound culture positive for presumptive MRSA and Rae. Follow-up blood cultures are revealing no growth to date. Sodium 140. Potassium 3.4. Bicarb 21. BUN 72. Creatinine 3.07 Objective - Vital Signs Vital signs: Vital Signs Temp 98.4 F 01/19/21 08:00 Pulse 106 H 01/19/21 08:37 Resp 17 01/19/21 08:00 BP 106/65 01/19/21 08:00 Pulse Ox 90 L 01/19/21 08:27 Intake & Output 01/18/21 01/19/21 01/19/21 18:59 06:59 18:59 Intake Total 720 Output Total 1450 250 Balance -730 -250 Weight 126 kg Intake: Oral 720 Output: Urine 1450 250 Other: Voiding Method Indwelling Catheter Indwelling Catheter # Bowel Movements 1 1 - Exam GENERAL EXAM: Pleasant 50-year-old male patient, on 2 L nasal cannula, in no acute distress, less confused. HEAD: Normocephalic/atraumatic. EYES: Normal reaction of pupils, equal size. Conjunctiva pink, sclera white. NOSE: Clear with pink turbinates. THROAT: No erythema or exudates. NECK: No masses, no JVD, no thyroid enlargement, no adenopathy. CHEST: No chest wall deformity. Symmetrical expansion. LUNGS: Equal air entry with few scattered crackles. CVS: Regular rate and rhythm, normal S1 and S2, no gallops, no murmurs, no rubs ABDOMEN: Soft, nontender. No hepatosplenomegaly, normal bowel sounds, no guarding or rigidity. Multiple superficial healing wounds on the left abdomen, covered with a dressing, minimal drainage, nonpurulent. Large incisional hernia on the right abdomen EXTREMITIES: No clubbing, no edema, no cyanosis, 2+ pulses and upper and lower extremities. Chronic venous changes with dark discoloration noted of the lower extremities bilaterally. MUSCULOSKELETAL: Muscle strength and tone normal. SKIN: Abdominal wounds. Chronic venous stasis changes noted in lower extremities bilaterally. CENTRAL NERVOUS SYSTEM: More awake and alert, generalized weakness in all 4 extremities. - Labs CBC & Chem 7: 01/17/21 07:43 01/19/21 07:57 Labs: Abnormal Lab Results - Last 24 Hours (Table) 01/19/21 Range/Units 07:57 Potassium 3.4 L (3.5-5.1) mmol/L Carbon Dioxide 21 L (22-30) mmol/L BUN 72 H (9-20) mg/dL Creatinine 3.07 H (0.66-1.25) mg/dL Microbiology - Last 24 Hours (Table) 01/16/21 18:30 Gram Stain - Preliminary Abdomen Wound Culture - Preliminary Presumptive MRSA Rae albicans 01/17/21 10:32 Blood Culture - Preliminary Blood No Growth after 24 hours 01/17/21 10:41 Blood Culture - Preliminary Blood No Growth after 24 hours Assessment and Plan Assessment: 1 Acute systolic congestive heart failure, with interstitial edema, cannot rule out underlying pneumonia, but felt to be less likely. 2 Chronic atrial fibrillation. Anticoagulated with Eliquis 3 Acute metabolic encephalopathy, multifactorial. Improved. 4 Hypotension with intravascular volume depletion, recovered 5 Nonhealing chronic abdominal wounds. 6 MRSA bacteremia, most likely source is his abdominal wounds 7 Obstructive sleep apnea syndrome, on CPAP. 8 cm of water with C-Flex of 2, 28% FiO2. 8 Morbid obesity 9 Benign essential hypertension 10 Coronary artery disease and previous PCI and stenting of the circumflex and LAD 11 History of DVT 12 Acute kidney injury/acute tubular necrosis on top of a chronic kidney disease stage III 13 Chronic kidney disease stage III 14 Resident of [facility]. Plan: The patient was seen and evaluated by Dr. Adams Continue daptomycin Continue bronchodilators We'll request a PICC line for continued IV antibiotics Repeat blood cultures today We will continue to follow I, the cosigning physician, performed a history & physical examination of the patient. Lungs sounds with few scattered crackles. Maintaining good O2 saturations in the 90s on 2 L nasal cannula. I discussed the assessment and plan of care with my nurse practitioner, Bailey Mckeon. I attest to the above note as dictated by her.
[2021-01-19] MEDS: MIDODRINE 5 MG TAB PO SCH ×2 (13:00→17:34)
--- NOTE | 2021-01-19 13:12 | P.PN ---
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 He follows in the office with Dr. Wood. We have been asked to see in consultation for AAlex estrada with RVR and heart failure. Apparently patient has had increased stress due to the COVID-19 pandemic and his mother . He has slowly declined. [facility] is [facility] at a [facility]. Patient is a poor historian, unable to indicate why he came to the emergency department. Apparently over the last several days, care staff at the [facility] became concerned due to altered mental status. And patient was sent to the emergency department. EKG revealed atrial fibrilation, heart rate 112. Laboratory data on admission, WBC 3.1, sodium 147, BUN 57, serum creatinine 3.7, magnesium 2.1, BNP 26,500 previously 35,000 01/12/21: Patient underwent EEG which was abnormal due to background slowing of at least moderate to severe degree. Suggestive of generalized cerebral dysfunction as seen with toxic metabolic encephalopathy or due to diffuse structural brain abnormality. Patient started on IV fluids and IV bicarb. 01/13: Echocardiogram revealed EF 35-40%, RV is mildly mildly enlarged, moderate mitral regurgitation, mild tricuspid regurgitation, mild pulmonary hypertension, RVSP 37mmHg. :Limited Echo revealed EF 40-45%, RV is severely enlarged, RV volume overload and/or elevated right ventricular end diastolic pressure, mild mitral regurgitation , mild tricuspid regurgitation 01/19/21 Patient seen and examined. Patient remains confused. He is awake and alert. Appears comfortable. Denies any chest pain or pressure. He denies shortness of breath. 1.7L urine output past 24 hours. Telemetry reviewed, patient in atrial fibrillation, HR are slowly improving 90-110. BP 106/65, heart rate 100, afebrile, maintaining oxygen saturations 92% on 2 L nasal cannula. Currently maintained on amiodarone 400 mg twice a day, Eliquis 5 mg twice a day, atorvastatin 40 mg nightly, IV Lasix 40mg BID, metoprolol tartrate 12.5 mg 3 times a day. Patient with MRSA bactermia, on Daptomycin per infectious disease. Sodium 140, potassium 3.4, BUN 72, serum creatinine 3.07, magnesium 1.8 PHYSICAL EXAMINATION CONSTITUTIONAL: No apparent distress. Morbidly obese. HEENT: Head is normocephalic. No JVD. No carotid bruit. CHEST EXAMINATION: Lungs diminished bilaterally, no wheezes or rhonchi. HEART EXAMINATION: Irregular rate and rhythm. S1, S2 heard. Systolic ejection murmur at the base, no gallops or rub. ABDOMEN: Soft, Left sided wound covered with dressing. Positive bowel sounds. EXTREMITIES: 2+ peripheral pulses, Bilateral legs with venous insufficiency, bilateral ecchymosis. and no calf tenderness. NEUROLOGIC EXAMINATION: Patient is awake, alert, oriented to person only. ASSESSMENT Chronic persistent atrial fibrillation with rapid ventricular response Acute on chronic systolic heart failure EF Hypernatremia Altered Mental Status, likely multifactorial Acute on Chronic kidney disease Coronary artery disease status post PCI to the circumflex and LAD with a total occlusion of the RCA History of Hypertension Dyslipidemia Type 2 Diabetes mellitus COPD Morbid obesity Medication noncompliance Chronic nicotine dependence Diarrhea Gram positive cocci bacteremia- MRSA Hypotension Hypokalemia Pancytopenia PLAN -From a cardiology perspective, no clinical indication for a TAMIA at this time, do not believe it will change attendant and be of benefit at this time. -We will continue metoprolol tartrate 12.5mg TID and monitor patient's rates. -Continue amiodarone (started 01/13) will transition to 200mg BID tomorrow 01/20 -Diuresis per Nephrology -Continue with current supportive care. -Follow renal function and electrolytes in the morning. -Continue eliquis for thromboembolic protection. -Ongoing telemetry monitoring. -Nephrology and ID following -Plan for possible PICC for IV antibiotics -Further recommendations to follow based upon clinical course. Objective - Vital Signs Vital signs: Vital Signs Temp 98.4 F 01/19/21 08:00 Pulse 106 H 01/19/21 08:37 Resp 17 01/19/21 08:00 BP 106/65 01/19/21 08:00 Pulse Ox 90 L 01/19/21 08:27 Intake & Output 01/18/21 01/19/21 01/19/21 18:59 06:59 18:59 Intake Total 720 Output Total 1450 250 Balance -730 -250 Weight 126 kg Intake: Oral 720 Output: Urine 1450 250 Other: Voiding Method Indwelling Catheter Indwelling Catheter # Bowel Movements 1 1 - Labs CBC & Chem 7: 01/17/21 07:43 01/19/21 07:57 Labs: Abnormal Lab Results - Last 24 Hours (Table) 01/19/21 Range/Units 07:57 Potassium 3.4 L (3.5-5.1) mmol/L Carbon Dioxide 21 L (22-30) mmol/L BUN 72 H (9-20) mg/dL Creatinine 3.07 H (0.66-1.25) mg/dL Microbiology - Last 24 Hours (Table) 01/16/21 18:30 Gram Stain - Preliminary Abdomen Wound Culture - Preliminary Presumptive MRSA Rae albicans 01/17/21 10:32 Blood Culture - Preliminary Blood No Growth after 24 hours 01/17/21 10:41 Blood Culture - Preliminary Blood No Growth after 24 hours
--- NOTE | 2021-01-19 14:11 | P.PN ---
Progress Note - Text Progress Note Date: 01/19/21 History of presenting complaint: 50-year-old patient, follows with Dr. Bhatt. Chronic stable medical conditions include diabetes with peripheral neuropathy, atrial fibrillation, coronary artery disease with stent, COPD, hypertension, hyperlipidemia, chronic kidney disease, kidney stones,(s) sleep apnea does not use a device, multiple abdominal surgeries for hiatal hernia, also history of tracheostomy, peripheral arterial disease, diverticulosis,. 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 Normally uses a scooter or a walker to get about. Patient has chronic breakdown of superficial skin on the abdominal wall from scratching. Admitted with acute on chronic hypoxic respiratory failure, metabolic encephalopathy, acute and chronic heart failure, possible right basilar pneumonia, COPD exacerbation, acute kidney injury on CK D, paroxysmal atrial fibrillation. Patient has been receiving IV fluids for low blood pressure the same time IV Lasix for fluid overload. Blood cultures positive for staph aureus. On IV daptomycin. Patient DO NOT RESUSCITATE January 2: Patient lethargic. . Eating about 25% with assistance. Able to answer simple questions. Blood pressure running on the lower side. In atrial fibrillation, heart rate in 1 teens January 3: Patient bit more awake today. tired. Needing assistance for feeding. Answering simple questions. Blood pressure remains in the lower side. Atrial fibrillation remains uncontrolled. some loose stools. Discussed with Dr. russell from ID. [facility]. Redness in the groin area. January 4: Laying in bed. Lethargic. But answering questions. Eating about 25- 50%. With assistance. Atrial flutter fibrillation. Uncontrolled January 5: Laying in bed. Tired. Does make up to answer questions. Swain catheter. Did not eat breakfast today. Review of systems: Was done for constitutional, cardiovascular, GI, pulmonary. relevant finding as above Active Medications Acetaminophen (Acetaminophen Tab 325 Mg Tab) 650 mg PO Q6HR PRN PRN Reason: Mild Pain or Fever > 100.5 Last Admin: 01/16/21 06:35 Dose: 650 mg Documented by: Albuterol/Ipratropium (Ipratropium-Albuterol 3 Ml Neb) 3 ml INHALATION RT-Q6H [facility] Last Admin: 01/19/21 13:22 Dose: 3 ml Documented by: Amiodarone HCl (Amiodarone 200 Mg Tab) 400 mg PO BID [facility] Last Admin: 01/19/21 09:41 Dose: 400 mg Documented by: Apixaban (Apixaban 5 Mg Tab) 5 mg PO BID [facility]; Protocol Last Admin: 01/19/21 09:41 Dose: 5 mg Documented by: Atorvastatin Calcium (Atorvastatin 40 Mg Tab) 40 mg PO HS@1999 [facility] Last Admin: 01/18/21 21:14 Dose: 40 mg Documented by: Bupropion HCl (Bupropion Xl 150 Mg Tab.Er.24h) 150 mg PO DAILY [facility] Last Admin: 01/19/21 09:41 Dose: 150 mg Documented by: Cyanocobalamin (Cyanocobalamin 1,000 Mcg/Ml 1 Ml Vial) 1,000 mcg IM DAILY [facility] Stop: 01/20/21 18:01 Last Admin: 01/19/21 09:41 Dose: 1,000 mcg Documented by: Furosemide (Furosemide 10 Mg/Ml 4 Ml Vial) 40 mg IV Q12HR [facility] Last Admin: 01/19/21 09:41 Dose: 40 mg Documented by: Glucose (Dextrose 4 Gm Chewable) 4 gm PO QID [facility] Last Admin: 01/19/21 13:00 Dose: 4 gm Documented by: Daptomycin 800 mg/ Sodium (Chloride) 50 mls @ 100 mls/hr IVPB Q24H [facility]; Protocol Last Admin: 01/18/21 16:50 Dose: 100 mls/hr Documented by: Levothyroxine Sodium (Levothyroxine 25 Mcg Tab) 25 mcg PO HS@1999 [facility] Last Admin: 01/18/21 21:13 Dose: 25 mcg Documented by: Metoprolol Tartrate (Metoprolol Tartrate 12.5 Mg Tab) 12.5 mg PO TID [facility] Last Admin: 01/19/21 09:40 Dose: 12.5 mg Documented by: Midodrine (Midodrine 5 Mg Tab) 5 mg PO AC-TID [facility] Last Admin: 01/19/21 13:00 Dose: 5 mg Documented by: Miscellaneous Information (Potassium Replacement Protocol 1 Each Misc) 1 each MISCELLANE DAILY PRN; Protocol PRN Reason: Per Protocol Multivitamins (Multivitamins, Thera 1 Each Tab) 1 each PO HS [facility] Last Admin: 01/18/21 21:14 Dose: 1 each Documented by: Naloxone HCl (Naloxone 0.4 Mg/Ml 1 Ml Vial) 0.2 mg IV Q2M PRN PRN Reason: Opioid Reversal Nystatin (Nystatin 100,000 Unit/Gm Powd 15 Gm) 1 applic TOPICAL BID [facility]; Protocol Last Admin: 01/19/21 09:40 Dose: 1 applic Documented by: Oxycodone/Acetaminophen (Oxycodone-Apap 5-325mg 1 Each Tab) 1 each PO Q4HR PRN PRN Reason: Pain Pyridoxine HCl (Pyridoxine 50 Mg Tab) 50 mg PO DAILY [facility] Last Admin: 01/19/21 09:41 Dose: 50 mg Documented by: Senna (Sennosides 8.6 Mg Tab) 8.6 mg PO BID [facility] Last Admin: 01/19/21 09:41 Dose: 8.6 mg Documented by: Sertraline HCl (Sertraline 50 Mg Tab) 50 mg PO HS@1999 [facility] Last Admin: 01/18/21 21:14 Dose: 50 mg Documented by: Sodium Bicarbonate (Sodium Bicarbonate Tab 650 Mg Tab) 650 mg PO TID [facility] Last Admin: 01/19/21 09:41 Dose: 650 mg Documented by: Past medical history to include: Atrial fibrillation, coronary artery disease with stent, congestive heart failure EF 30-35%, COPD, DVT, hypertension, hyperlipidemia, chronic kidney disease, obstructive sleep apnea, hypothyroid, peripheral artery disease, chronic kidney disease stage III, kidney stones, DVT in left leg in 2004,: Abscess with bowel resection, multiple abdominal surgeries for hiatal hernia,. Bladder prolonged hospitalization and prolonged medical-related dependent, with a tracheostomy tube, peripheral arterial disease, colonic diverticulosis, iron deficiency anemia,. Diabetes with peripheral neuropathy Social history: Patient is on disability. Patient smoked for about 10 years and stopped in 2008. No alcohol. Patient lives alone. Does have a scooter and a walker Physical examination: VITAL SIGNS: 97.9, 102, 18, 110/85, 98% on 2 L GENERAL: Laying in bed, lethargic, arousable EYES: Pupils equal. Conjunctiva normal. NECK: JVD unable to assess; masses not palpable. HEART: Heart sounds irregular; minimal edema. LUNGS: Respiratory rate increased; decreased breath sounds ABDOMEN: Soft, nontender, liver spleen not palpable, no masses palpable, superficial breakdown of skin, and multiple areas, with dressing. DERMATOLOGICAL: Excoriation in the buttock area. Redness in the contiguous - groin area PSYCH: Answering simple questions. Tired EXTREMITIES: Pigmentation of the both lower extremity distally INVESTIGATIONS, reviewed in the clinical context: January 19: Potassium 3.4 creatinine 3.07 pectoralis major 1.86 January 18: Potassium 3.8 BUN 71 and creatinine 2.92. Accu-Cheks: 72, 74 January 16: WBC 2.8 hemoglobin 11.8 platelets 97 potassium 3.2 BUN 76 creatinine 3.21 Chest x-ray [January 16]: Infiltrate versus venous congestion. Stable EEG: Background slowing. 2-D echocardiogram: Moderate concentric LVH. EF 35-40%. Moderate MR. Previous labs: Creatinine 4.41 on January 03 Creatinine 2.75 one November 03 Assessment: -Acute on chronic congestive heart exacerbation EF 35-40% from systolic dysfunction from underlying coronary artery disease. Slow to respond IV Lasix 40 mg every 12. -Persistent atrial flutter fibrillation with ventricular rate: Somewhat better controlled Amiodarone. 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 body lotion -COPD in an ex-smoker DuoNeb -Chronic DVT chronically on anticoagulation Eliquis -Hyperlipidemia Lipitor -Chronic kidney disease stage III from diabetic nephropathy and hypertensive nephrosclerosis Follow renal function. Baseline creatinine around 2.7 -Obstructive sleep apnea does not use a device -Hypothyroid Synthroid 25 g -Peripheral arterial disease -Multiple abdominal wall hernia from prior surgery -Colonic diverticulosis, asymptomatic Follow clinically -Obesity BMI 37.2 -Diabetes mellitus type 2 chronically on insulin. With peripheral neuropathy Follow Accu-Cheks -Acute metabolic encephalopathy [multifactorial]: Slow to respond Follow closely -Bacteremia with positive blood cultures for staph aureus, likely source abdominal wall skin. IV daptomycin -Loose stools. Possibly antibiotic associated diarrhea. -Intertriginous alena infection Nystatin powder -Hypoglycemia from decreased oral intake Add glucose tablets -DO NOT RESUSCITATE Continue IV Lasix. All meals to be supervised. Prognosis remained guarded.
[2021-01-19 16:50] LABS: Glucose,Whole Blood 84 mg/dL (75-99)
[2021-01-19] MEDS: LEVOTHYROXINE 25 MCG TAB PO SCH (21:06)
[2021-01-19] MEDS: SERTRALINE 50 MG TAB PO SCH (21:06)
[2021-01-19] MEDS: MULTIVITAMINS, THERA 1 EACH TAB PO SCH (21:06)
[2021-01-19] MEDS: ATORVASTATIN 40 MG TAB PO SCH (21:06)
[2021-01-19 21:11] LABS: Glucose,Whole Blood 86 mg/dL (75-99)
--- NOTE | 2021-01-20 00:05 | PN ---
PROGRESS NOTE DATE OF SERVICE: 01/19/2021. REASON FOR FOLLOWUP: MRSA bacteremia concerning for endovascular source. INTERVAL HISTORY: Patient is afebrile. The patient is breathing comfortably. Patient denies having any chest pain, shortness of breath or cough. No abdominal pain. No diarrhea. PHYSICAL EXAMINATION: Blood pressure is 122/89 with a pulse of 115. Temperature is 97.6. He is 96% on 2 L nasal cannula. General description is a middle-aged male lying in bed in no distress. Respiratory system: Unlabored breathing, clear to auscultation anteriorly. Heart S1, S2. Regular rate and rhythm. Abdomen: Soft, no tenderness. Abdominal wound is currently covered. LABS: BUN of 72, creatinine 3.27. DIAGNOSTIC IMPRESSION AND PLAN: Patient with MRSA bacteremia. Concerning for possible endovascular source. Cardiology recommended against TAMIA. The patient's follow-up blood culture negative. He is on daptomycin. If the blood cultures remain to be negative in the next 72 hours, we will get a PICC line. Plan for a total of 6 week course of therapy. Continue supportive care. MMODL / IJN: [id number] /
[2021-01-20] MEDS: IPRATROPIUM-ALBUTEROL 3 ML NEB INHALATION SCH ×4 (02:09→20:31)
[2021-01-20] MEDS: MIDODRINE 5 MG TAB PO SCH ×3 (06:58→15:49)
[2021-01-20 07:14] LABS: Glucose,Whole Blood 66 mg/dL (75-99)
[2021-01-20 07:35] LABS: Glucose,Whole Blood 73 mg/dL (75-99)
[2021-01-20] MEDS ORDERED: LIDOCAINE 1% INJ 10MG/ML (20 ML MDV) ONE (09:42)
--- NOTE | 2021-01-20 10:19 | P.PN ---
Subjective Patient is seen in follow-up for acute kidney injury on chronic kidney disease. Creatinine 3.07 yesterday. Labs from today pending. Maintained on IV Lasix. Nonoliguric. Denies chest pain or shortness of breath. Now on room air. Vital signs are stable. Blood pressure in the lower side. General: The patient appeared well nourished and normally developed. HEENT: Head exam is unremarkable. On nasal cannula. LUNGS: Breath sounds decreased. HEART: Rate and Rhythm are regular. ABDOMEN: Soft, obese. EXTREMITITES: Trace edema. Chronic changes noted. Objective - Vital Signs Vital signs: Vital Signs Temp 98 F 01/20/21 08:00 Pulse 112 H 01/20/21 08:16 Resp 18 01/20/21 08:00 BP 127/74 01/20/21 08:00 Pulse Ox 94 L 01/20/21 08:00 Intake & Output 01/19/21 01/20/21 01/20/21 18:59 06:59 18:59 Intake Total 240 220 Output Total 602 1200 625 Balance -602 -960 -405 Weight 126 kg 126 kg Intake: Oral 240 220 Output: Urine 600 1200 625 Uretheral (Swain) 600 1200 Stool 2 Other: Voiding Method Indwelling Catheter Indwelling Catheter # Bowel Movements 1 - Labs CBC & Chem 7: 01/17/21 07:43 01/19/21 07:57 Labs: Abnormal Lab Results - Last 24 Hours (Table) 01/20/21 01/20/21 Range/Units 06:54 07:21 POC Glucose (mg/dL) 66 L 73 L (75-99) mg/dL Microbiology - Last 24 Hours (Table) 01/16/21 18:30 Gram Stain - Final Abdomen Wound Culture - Final Methicillin resist S. aureus Rae albicans 01/17/21 10:32 Blood Culture - Preliminary Blood No Growth after 48 hours 01/17/21 10:41 Blood Culture - Preliminary Blood No Growth after 48 hours Assessment and Plan Plan: Assessment: 1. Acute kidney injury secondary to ATN secondary to cardiorenal syndrome and infection. Creatinine 3.07 yesterday. 2. Chronic kidney disease stage IIIB/4 secondary to nephrosclerosis and cardiorenal syndrome. Baseline creatinine recently near 2.6-2.7. 3. Acute on chronic systolic CHF with ejection fraction of 40-45%. 4. Volume overload. Improved with diuresis. 5. Metabolic acidosis secondary to acute kidney injury and diarrhea. Improved. On oral bicarb. 6. Staph aureus bacteremia on antibiotics. ID following. 7. Hypokalemia from diuresis. Replaced. Plan: Change Lasix to 40 mg orally twice daily. Hold midodrine for systolic blood pressure greater than 110. Avoid nephrotoxins. Continue to monitor renal function and urine output. Morning labs pending.
[2021-01-20] MEDS: METOPROLOL TARTRATE 12.5 MG TAB PO SCH ×3 (10:25→21:03)
[2021-01-20] MEDS: AMIODARONE 200 MG TAB PO SCH ×2 (10:25→21:03)
[2021-01-20] MEDS: FUROSEMIDE 10 MG/ML 4 ML VIAL IV SCH (10:25)
[2021-01-20] MEDS: APIXABAN 5 MG TAB PO SCH ×2 (10:25→21:02)
[2021-01-20] MEDS: PYRIDOXINE 50 MG TAB PO SCH (10:25)
[2021-01-20] MEDS: CYANOCOBALAMIN 1,000 MCG/ML 1 ML VIAL IM SCH (10:25)
[2021-01-20] MEDS: buPROPion XL 150 MG TAB.ER.24H PO SCH (10:26)
[2021-01-20] MEDS: SODIUM BICARBONATE TAB 650 MG TAB PO SCH ×4 (10:26→21:03)
[2021-01-20] MEDS: SENNOSIDES 8.6 MG TAB PO SCH ×2 (10:26→20:54)
[2021-01-20] MEDS: NYSTATIN 100,000 UNIT/GM POWD 15 GM TOPICAL SCH ×2 (10:27→21:03)
--- NOTE | 2021-01-20 10:35 | IR ---
PICC LINE PLACEMENT: HISTORY: Infection requiring long-term antibiotic therapy PROCEDURE: Ultrasound and fluoroscopic guidance of PICC line placement. COMPLICATIONS: None ANESTHESIA: 1. 1% Lidocaine locally. FINDINGS/TECHNIQUE: The procedure was explained to the patient. The risks, complications, benefits and alternatives were discussed and any questions were answered. Informed consent was obtained. The patient was placed supine on the fluoroscopic table and prepped and draped in the usual sterile fas ion. Utilizing a 21 gauge needle and sonographic and fluoroscopic guidance, access in the left basi lic vein was achieved and there is placement of a 0.018 guidewire. The vein is patent. A 4-F sheath was placed over the guidewire. The guidewire and dilator were removed and a 4-F. PICC line was plac ed through the sheath with the tip at the level of the subclavian vein. The sheath was removed, the catheter was flushed and sutured into position. The patient was stable throughout the procedure and remained stable upon discharge from the Department of Radiology. The vein puncture was patent under ultrasound. A bolton scale image was obtained to document patency of the vein punctured. All elements of the maximal barrier technique were utilized. FLUOROSCOPY TIME: 1.7 minutes of fluoroscopy and one image submitted IMPRESSION: Successful PICC line placement under ultrasound and fluoroscopic guidance.
--- NOTE | 2021-01-20 10:47 | P.PN ---
Subjective Progress Note Date: 01/20/21 Principal diagnosis: Acute systolic congestive heart failure with interstitial edema, cannot rule out underlying pneumonia however clinically is felt to be less likely. A 50-year-old white male patient with multiple medical problems including hypertension, hyperlipidemia, chronic atrial fibrillation, this episode of myocardial infarction CHF with diastolic dysfunction, coronary artery disease, COPD, diabetes mellitus type 2, sleep apnea, hypothyroidism, history of DVT, and chronic nonhealing abdominal wounds. Patient has a history of colonic abscess with a bowel resection. We saw the patient in consultation in October 2020 when he was hospitalized with acute exacerbation of CHF. On 01/11/2021 patient presented to the emergency department per EMS for evaluation of altered mental status. Patient is a poor historian. [facility] Apparently she was having decreased appetite, and increased lethargy and confusion. There is no reported fever or difficulty breathing, no cough, no chest discomfort. Most of the history is obtained from the chart, patient is lethargic, and there is no family around. It's unclear whether or not he wears oxygen and CPAP at the senior living. Brain CT showed the ventricles, basal cisterns and sulci overlying the cerebral convexities demonstrating mild enlargement of the patient's age group. Chest x-ray showed right lower lobe infiltrate. Lab work showed a white blood cell count of 3.2, hemoglobin of 12.4, INR is 1.4, sodium is 147, potassium is 4.2, chloride is 113, CO2 17, BUN is 57, creatinine is 3.79, showing acute kidney injury, hyponatremia, dehydration. His proBNP came back at 26,005 100, troponin was negative at less than 0.012, LFTs were within normal limits, pro-calcitonin level was 0.38, ur inalysis showed large amount of blood, 1+ protein, rare bacteria and mucus, but no clear evidence of urinary tract infection. Urine drug screen was negative. Patient has been afebrile since admission, blood pressure is stable, no hypotension, EKG showed atrial flutter with variable AV block, with a rate of 112 BPM, and nonspecific ST and T-wave abnormality. Of note patient was hypoglycemic in the emergency department but sugar of 66, and 1 amp of 50% dextrose was given with subsequent improvement of patient's blood sugars. Lung sounds are essentially clear, patient briefly wakes up, he denies any cough or congestion, no phlegm production. He is not able to tell us whether or not he wears CPAP at home as he is falling asleep. He does have superficial healing wounds on his abdomen which are covered with dressing, he is on Eliquis for history of chronic atrial fibrillation. Vital signs are stable right now. Started on Levaquin empirically, she did receive 500 mL fluid bolus in the emergency department. Neurology evaluation was requested and is pending at this time, EEG is pending, cardiology is consulted, 2-D echocardiogram has been ordered. Wound services are following in regards to the chronic abdominal wounds and patient has a sacral wound as well. Today's evaluation on 01/13/2021 patient seen in follow-up on selective care. He is still very confused, he is awake, he is arousable, however she makes poor eye contact, he thinks he is in [place], he thought there was a word sitting on his foot, he thinks he lives in [place] by himself in a house. Room air pulse ox was noted to be around 76 and subsequently patient was placed on 2 L of oxygen and pulse ox improved to 100%. He appears to be breathing comfortably, no cough, no congestion, no complaints of chest discomfort. No evidence of respiratory distress. EEG was done and showed abnormal EEG, due to background slowing of at least moderate to severe degree suggestive of generalized cerebral dysfunction related to sick metabolic encephalopathy. There were no focal or generalized epileptiform activity seen on the EEG. Brain CT on admission showed enlargement of the ventricles, basal cisterns and sulci with no evidence of intracranial hemorrhage or sulcal effacement. Repeat chest x-ray was reviewed showing interstitial edema though infiltrates of other etiology were not completely excluded, nevertheless patient is covered with empiric antibiotics in the form of Levaquin. he had no fever or chills, today's labs have been reviewed, his white blood cell count is stable at 3.2, hemoglobin is 12.9, sodium is 143, potassium is 4.0, chloride is 111, CO2 16, BUN of 57, and creatinine of 3.61. Patient has been tolerating oral intake, although she does need supervision and assistance with it. No episodes of choking or coughing were noted. His abdominal wounds actually show improvement in the amount of healing, according to the wound care service. They're currently covered with dressings, urine culture has been sent. Abdomen is soft, there has been no vomiting, no diarrhea. The status of his CPAP device at the senior living is unknown, however reviewing his sleep study from several years ago is apparent that patient has severe sleep apnea with AHI score of 55 and up to 90 during the REM sleep. Current settings on his CPAP device are unknown, we will try to get a hold of the ECF to inquire about that 01/14/2021, the patient is being seen in follow-up. As mentioned earlier, he is a 50-year-old male patient with extensive comorbidities including CHF, diastolic heart failure, chronic atrial fibrillation, morbid obesity, obstructive sleep apnea, hypertension, previous history of LA, and massive and several abdominal surgeries work requiring bowel resection and currently his abdominal wall is essentially loose and there is obvious dehiscence of the abdominal muscles with some superficial wounds have been nonhealing for quite sometime. The patient came to with worsening appetite, diminished level of consciousness, and some difficulty breathing. His echocardiogram is showing an ejection fraction of 35- 40% and there is a combination of systolic and diastolic heart failure. He has also not to moderate RV enlargement, normal LV, moderate mitral regurgitation, PA pressures 37. Earlier this morning he was found to be in nature fibrillation with rapid ventricular response. He is currently on 05 mg by mouth twice a day for rate control. He is also on metoprolol 25 mg by mouth twice a day he had his chest x-rays showing pulmonary vessel congestion. Some limited effusion lung bases bilaterally. He remains on 2 L of oxygen by nasal cannula. No clear signs of pneumonia. No cough or congestion. He is on Levaquin as an empiric antibiotic coverage. He does have chronic edema lower extremities bilaterally. His mentation is still altered and he waxes and wanes. He was able to communicate with me. He is not cooperative. Doesn't volunteer any significant information. Neurologist on the case. EEG was abnormal and there is cerebral dysfunction consistent with encephalopathy. 01/15/2021, the patient is still doing poorly. He remains confused. He has draining abdominal wounds. One of the blood cultures came positive for gram- positive cocci. He is also having liquidy stool and for C. diff has been checked and sent. Results of the pending for now. He also developed some hypotension. His systolic blood pressures the mid 80s. He'll be given bolus of IV fluids. His heart rate is under better control. He is tachycardic regarding his atrial fibrillation. He is on a combination of amiodarone and digoxin for rate control. He was also on beta ariella dose being adjusted by cardiology. No significant respiratory distress. He is currently on 2 L of oxygen by nasal cannula. Antibiotic coverage includes a combination of vancomycin and Levaquin. Reevaluated today on 01/16/2021, patient remains about the same, intermittently confused, continues to have some draining from the abdominal ones, one of the blood cultures came back positive for presumptive MRSA. Patient is being followed by infectious disease and he is on multiple antibiotics. Chest x-ray continues to show evidence of interstitial edema, however considering his blood pressure is marginal, his Lasix was placed on hold. WBC count today is 2.8 hemoglobin is 11.8 electrolytes are normal BUN is up to 76 creatinine 3.21. Improving, patient is being followed by nephrology. The patient is seen today 01/17/2021 in follow-up on the selective care unit. He is currently resting fairly comfortably in bed. A bit more awake and alert. Maintaining O2 saturations in the 90s on 2 L/m per nasal cannula. He is afebrile. Slightly tachycardic. Blood cultures positive for methicillin- resistant Staphylococcus aureus. Abdominal wound culture pending. Urine culture no growth. White count 3.2. Hemoglobin 11.9. Platelets 94,000. Sodium 141. Potassium 3.4. Bicarb 19. Creatinine 3.21. He remains on IV diuretics. Amiodarone for rate control. Eliquis for anticoagulation. Antibiotics in the form of daptomycin and Levaquin. The patient is seen today 01/18/2021 in follow-up in the selective care unit. He is awake and alert. He is resting comfortably in bed. He is maintaining O2 saturations up to 99% on 2 L/m per nasal cannula. He is utilizing CPAP at night at 8 cm of water with C-Flex of 2 and FiO2 at 28%. Chest x-ray continues to show a right lower lobe infiltrate. There is borderline cardiomegaly. Some evidence of volume overload. Blood cultures are positive for penicillin resistant Staphylococcus aureus. Abdominal wound culture pending. Sodium 140. Potassium 3.8. Bicarbonate 17. Creatinine 2.92. Glucose 72. He remains on bronchodilators, IV diuretics, daptomycin. Anticoagulated with Eliquis. Nephrology is following. He is on sodium bicarb tablets. The patient is seen today in follow-up on the selective care unit. He is curre ntly resting comfortably in bed. That more awake and alert today compared to yesterday. Currently denies any worsening shortness of breath, cough or congestion. Maintaining O2 saturations in the 90s on 2 L/m per nasal cannula He remains on DuoNeb inhalations, IV diuretics. Anticoagulated with Eliquis. Antibiotics in the form of daptomycin. Initial blood cultures were positive for MRSA. Abdominal wound culture positive for presumptive MRSA and Rae. Follow-up blood cultures are revealing no growth to date. Sodium 140. Potassium 3.4. Bicarb 21. BUN 72. Creatinine 3.07 The patient is seen today 01/20/2021 in follow-up on the selective care unit. He is currently resting fairly comfortably in bed. He has been pulling out his IVs and taken off his oxygen. Usually he is maintaining O2 saturations in the mid to upper 90s on 2 L/m per nasal cannula. He's been afebrile. Slightly tachycardic. Blood cultures positive for MRSA. Wound cultures positive for MRSA and Rae. Follow-up blood cultures from 01/17/2021 are revealing no growth to date. Blood glucose 73. He remains on bronchodilators, antibiotics in the form of daptomycin. Changed to oral diuretics. Anticoagulated with Eliquis. He did undergo a PICC line insertion today. Objective - Vital Signs Vital signs: Vital Signs Temp 98 F 01/20/21 08:00 Pulse 112 H 01/20/21 08:16 Resp 18 01/20/21 08:00 BP 127/74 01/20/21 08:00 Pulse Ox 94 L 01/20/21 08:00 Intake & Output 01/19/21 01/20/21 01/20/21 18:59 06:59 18:59 Intake Total 240 220 Output Total 602 1200 625 Balance -602 -960 -405 Weight 126 kg 126 kg Intake: Oral 240 220 Output: Urine 600 1200 625 Uretheral (Swain) 600 1200 Stool 2 Other: Voiding Method Indwelling Catheter Indwelling Catheter # Bowel Movements 1 - Exam GENERAL EXAM: Reveals a 50-year-old male patient, on room air, in no acute distress, less confused. HEAD: Normocephalic/atraumatic. EYES: Normal reaction of pupils, equal size. Conjunctiva pink, sclera white. NOSE: Clear with pink turbinates. THROAT: No erythema or exudates. NECK: No masses, no JVD, no thyroid enlargement, no adenopathy. CHEST: No chest wall deformity. Symmetrical expansion. LUNGS: Equal air entry with few scattered crackles. CVS: Regular rate and rhythm, normal S1 and S2, no gallops, no murmurs, no rubs ABDOMEN: Soft, nontender. No hepatosplenomegaly, normal bowel sounds, no guarding or rigidity. Multiple superficial healing wounds on the left abdomen, covered with a dressing, minimal drainage, nonpurulent. Large incisional hernia on the right abdomen EXTREMITIES: PICC line insertion. No clubbing, no edema, no cyanosis, 2+ pulses and upper and lower extremities. Chronic venous changes with dark discoloration noted of the lower extremities bilaterally. MUSCULOSKELETAL: Muscle strength and tone normal. SKIN: Abdominal wounds. Chronic venous stasis changes noted in lower extremities bilaterally. CENTRAL NERVOUS SYSTEM: More awake and alert, generalized weakness in all 4 extremities. - Labs CBC & Chem 7: 01/17/21 07:43 01/19/21 07:57 Labs: Abnormal Lab Results - Last 24 Hours (Table) 01/20/21 01/20/21 Range/Units 06:54 07:21 POC Glucose (mg/dL) 66 L 73 L (75-99) mg/dL Microbiology - Last 24 Hours (Table) 01/16/21 18:30 Gram Stain - Final Abdomen Wound Culture - Final Methicillin resist S. aureus Rae albicans 01/17/21 10:32 Blood Culture - Preliminary Blood No Growth after 48 hours 01/17/21 10:41 Blood Culture - Preliminary Blood No Growth after 48 hours Assessment and Plan Assessment: 1 Acute systolic congestive heart failure, with interstitial edema, cannot rule out underlying pneumonia, but felt to be less likely. 2 Chronic atrial fibrillation. Anticoagulated with Eliquis 3 Acute metabolic encephalopathy, multifactorial. Improved. 4 Hypotension with intravascular volume depletion, recovered 5 Nonhealing chronic abdominal wounds. 6 MRSA bacteremia, most likely source is his abdominal wounds 7 Obstructive sleep apnea syndrome, on CPAP. 8 cm of water with C-Flex of 2, 28% FiO2. 8 Morbid obesity 9 Benign essential hypertension 10 Coronary artery disease and previous PCI and stenting of the circumflex and LAD 11 History of DVT 12 Acute kidney injury/acute tubular necrosis on top of a chronic kidney disease stage III 13 Chronic kidney disease stage III 14 Resident of ECF. Plan: The patient was seen and evaluated by Dr. Adams Continue daptomycin Continue bronchodilators PICC line placed today for continued IV antibiotics Repeat blood cultures revealing no growth to date ECF post discharge We will continue to follow I, the cosigning physician, performed a history & physical examination of the patient. Lungs sounds with few scattered crackles. Maintaining good O2 saturations in the 90s on room air. I discussed the assessment and plan of care with my nurse practitioner, Bailey Mckeon. I attest to the above note as dictated by her.
[2021-01-20 12:04] LABS: Calcium 9.3 mg/dL (8.4-10.2); Magnesium 1.9 mg/dL (1.6-2.3); Potassium 3.7 mmol/L (3.5-5.1)
[2021-01-20 12:11] LABS: Glucose,Whole Blood 87 mg/dL (75-99)
--- NOTE | 2021-01-20 14:22 | P.PN ---
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 He follows in the office with Dr. Wood. We have been asked to see in consultation for AAlex estrada with RVR and heart failure. Apparently patient has had increased stress due to the COVID-19 pandemic and his mother . He has slowly declined. He is currently at a senior care. Patient is a poor historian, unable to indicate why he came to the emergency department. Apparently over the last several days, care staff at the senior care became concerned due to altered mental status. And patient was sent to the emergency department. EKG revealed atrial fibrilation, heart rate 112. Laboratory data on admission, WBC 3.1, sodium 147, BUN 57, serum creatinine 3.7, magnesium 2.1, BNP 26,500 previously 35,000 01/12/21: Patient underwent EEG which was abnormal due to background slowing of at least moderate to severe degree. Suggestive of generalized cerebral dysfunction as seen with toxic metabolic encephalopathy or due to diffuse structural brain abnormality. Patient started on IV fluids and IV bicarb. 01/13: Echocardiogram revealed EF 35-40%, RV is mildly mildly enlarged, moderate mitral regurgitation, mild tricuspid regurgitation, mild pulmonary hypertension, RVSP 37mmHg. :Limited Echo revealed EF 40-45%, RV is severely enlarged, RV volume overload and/or elevated right ventricular end diastolic pressure, mild mitral regurgitation , mild tricuspid regurgitation 01/20/21 Patient seen and examined. Patient remains confused. He is awake and alert. Appears comfortable. Denies any chest pain or pressure. He denies shortness of breath. 1.8L urine output past 24 hours. Telemetry reviewed, patient in atrial fibrillation, HR are slowly improving 90-110. BP 106/65, heart rate 100, afebrile, maintaining oxygen saturations 92% on room air. Currently maintained on amiodarone 400 mg twice a day, Eliquis 5 mg twice a day, atorvastatin 40 mg nightly, Lasix PO 40mg BID, metoprolol tartrate 12.5 mg 3 times a day. Patient with MRSA bactermia, on Daptomycin per infectious disease. PHYSICAL EXAMINATION CONSTITUTIONAL: No apparent distress. Morbidly obese. HEENT: Head is normocephalic. No JVD. No carotid bruit. CHEST EXAMINATION: Lungs diminished bilaterally, no wheezes or rhonchi. HEART EXAMINATION: Irregular rate and rhythm. S1, S2 heard. Systolic ejection murmur at the base, no gallops or rub. ABDOMEN: Soft, Left sided wound covered with dressing. Positive bowel sounds. EXTREMITIES: 2+ peripheral pulses, Bilateral legs with venous insufficiency, bilateral ecchymosis. and no calf tenderness. NEUROLOGIC EXAMINATION: Patient is awake, alert, oriented to person only. ASSESSMENT Chronic persistent atrial fibrillation with rapid ventricular response Acute on chronic systolic heart failure EF Hypernatremia Altered Mental Status, likely multifactorial Acute on Chronic kidney disease Coronary artery disease status post PCI to the circumflex and LAD with a total occlusion of the RCA History of Hypertension Dyslipidemia Type 2 Diabetes mellitus COPD Morbid obesity Medication noncompliance Chronic nicotine dependence Diarrhea Gram positive cocci bacteremia- MRSA Hypotension Hypokalemia Pancytopenia PLAN -Repeat Blood cultures preliminary resutls are negative growth for 24-72hr. -From a cardiology perspective, no clinical indication for a TAMIA at this time, do not believe it will knife changer and be of benefit at this time. -We will continue metoprolol tartrate 12.5mg TID -Continue amiodarone (started 01/13) will transition to 200mg BID today for 1 week. Start amiodarone 200mg daily on 01/27. This was updated in the [facility] -Continue with current supportive care. -Continue eliquis for thromboembolic protection. -Nephrology and ID following -Plan for possible PICC for IV antibiotics today -From a cardiology perspective, no further changes at this time. We will follow the patient as needed. Please reconsult if needed Patient to follow up outpatient with Dr. Wood . Objective - Vital Signs Vital signs: Vital Signs Temp 98.1 F 01/20/21 12:00 Pulse 116 H 01/20/21 12:42 Resp 18 01/20/21 12:00 BP 112/78 01/20/21 12:00 Pulse Ox 92 L 01/20/21 12:00 Intake & Output 01/19/21 01/20/21 01/20/21 18:59 06:59 18:59 Intake Total 240 220 Output Total 602 1200 626 Balance -602 -960 -406 Weight 126 kg 126 kg Intake: Oral 240 220 Output: Urine 600 1200 625 Uretheral (Swain) 600 1200 Stool 2 1 Other: Voiding Method Indwelling Catheter Indwelling Catheter Indwelling Catheter # Bowel Movements 1 - Labs CBC & Chem 7: 01/17/21 07:43 01/20/21 10:45 Labs: Abnormal Lab Results - Last 24 Hours (Table) 01/20/21 01/20/21 01/20/21 Range/Units 06:54 07:21 10:45 BUN 77 H (9-20) mg/dL Creatinine 3.05 H (0.66-1.25) mg/dL POC Glucose (mg/dL) 66 L 73 L (75-99) mg/dL Microbiology - Last 24 Hours (Table) 01/19/21 11:46 Blood Culture - Preliminary Blood No Growth after 24 hours 01/19/21 11:46 Blood Culture - Preliminary Blood No Growth after 24 hours 01/17/21 10:32 Blood Culture - Preliminary Blood No Growth after 72 hours 01/17/21 10:41 Blood Culture - Preliminary Blood No Growth after 72 hours 01/16/21 18:30 Gram Stain - Final Abdomen Wound Culture - Final Methicillin resist S. aureus Rae albicans
[2021-01-20] MEDS: DEXTROSE 4 GM CHEWABLE PO SCH ×3 (15:35→21:02)
[2021-01-20] MEDS: FUROSEMIDE 40 MG TAB PO SCH (15:50)
--- NOTE | 2021-01-20 16:22 | P.PN ---
Progress Note - Text Progress Note Date: 01/20/21 History of presenting complaint: 50-year-old patient, follows with Dr. Bhatt. Chronic stable medical conditions include diabetes with peripheral neuropathy, atrial fibrillation, coronary artery disease with stent, COPD, hypertension, hyperlipidemia, chronic kidney disease, kidney stones,(s) sleep apnea does not use a device, multiple abdominal surgeries for hiatal hernia, also history of tracheostomy, peripheral arterial disease, diverticulosis,. 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 Normally uses a scooter or a walker to get about. Patient has chronic breakdown of superficial skin on the abdominal wall from scratching. Admitted with acute on chronic hypoxic respiratory failure, metabolic encephalopathy, acute and chronic heart failure, possible right basilar pneumonia, COPD exacerbation, acute kidney injury on CK D, paroxysmal atrial fibrillation. Patient has been receiving IV fluids for low blood pressure the same time IV Lasix for fluid overload. Blood cultures positive for staph aureus. On IV daptomycin. Patient DO NOT RESUSCITATE January 2: Patient lethargic. . Eating about 25% with assistance. Able to answer simple questions. Blood pressure running on the lower side. In atrial fibrillation, heart rate in 1 teens January 3: Patient bit more awake today. tired. Needing assistance for feeding. Answering simple questions. Blood pressure remains in the lower side. Atrial fibrillation remains uncontrolled. some loose stools. Discussed with Dr. russell from ID. KENNETH Golden. Redness in the groin area. January 4: Laying in bed. Lethargic. But answering questions. Eating about 25- 50%. With assistance. Atrial flutter fibrillation. Uncontrolled January 5: Laying in bed. Tired. Does make up to answer questions. Swain catheter. Did not eat breakfast today. January 6: reclining up in bed. Slightly more awake. Refusing meals. Not interested in talking. Review of systems: Was done for constitutional, cardiovascular, GI, pulmonary. relevant finding as above Active Medications Acetaminophen (Acetaminophen Tab 325 Mg Tab) 650 mg PO Q6HR PRN PRN Reason: Mild Pain or Fever > 100.5 Last Admin: 01/16/21 06:35 Dose: 650 mg Documented by: Albuterol/Ipratropium (Ipratropium-Albuterol 3 Ml Neb) 3 ml INHALATION RT-Q6H ZURI Last Admin: 01/20/21 12:31 Dose: 3 ml Documented by: Amiodarone HCl (Amiodarone 200 Mg Tab) 200 mg PO BID [facility] Stop: 01/27/21 02:00 Amiodarone HCl (Amiodarone 200 Mg Tab) 200 mg PO DAILY [facility] Apixaban (Apixaban 5 Mg Tab) 5 mg PO BID [facility]; Protocol Last Admin: 01/20/21 10:25 Dose: 5 mg Documented by: Atorvastatin Calcium (Atorvastatin 40 Mg Tab) 40 mg PO HS@1999 [facility] Last Admin: 01/19/21 21:06 Dose: 40 mg Documented by: Bupropion HCl (Bupropion Xl 150 Mg Tab.Er.24h) 150 mg PO DAILY [facility] Last Admin: 01/20/21 10:26 Dose: 150 mg Documented by: Cyanocobalamin (Cyanocobalamin 1,000 Mcg/Ml 1 Ml Vial) 1,000 mcg IM DAILY [facility] Stop: 01/20/21 18:01 Last Admin: 01/20/21 10:25 Dose: 1,000 mcg Documented by: Furosemide (Furosemide 40 Mg Tab) 40 mg PO BID@0900,1600 [facility] Last Admin: 01/20/21 15:50 Dose: 40 mg Documented by: Glucose (Dextrose 4 Gm Chewable) 4 gm PO QID [facility] Last Admin: 01/20/21 15:50 Dose: 4 gm Documented by: Daptomycin 800 mg/ Sodium (Chloride) 50 mls @ 100 mls/hr IVPB Q24H [facility]; Protocol Last Admin: 01/20/21 15:49 Dose: 100 mls/hr Documented by: Levothyroxine Sodium (Levothyroxine 25 Mcg Tab) 25 mcg PO HS@1999 [facility] Last Admin: 01/19/21 21:06 Dose: 25 mcg Documented by: Metoprolol Tartrate (Metoprolol Tartrate 12.5 Mg Tab) 12.5 mg PO TID [facility] Last Admin: 01/20/21 15:49 Dose: 12.5 mg Documented by: Midodrine (Midodrine 5 Mg Tab) 5 mg PO AC-TID [facility] Last Admin: 01/20/21 15:49 Dose: 5 mg Documented by: Miscellaneous Information (Potassium Replacement Protocol 1 Each Misc) 1 each MISCELLANE DAILY PRN; Protocol PRN Reason: Per Protocol Multivitamins (Multivitamins, Thera 1 Each Tab) 1 each PO HS [facility] Last Admin: 01/19/21 21:06 Dose: 1 each Documented by: Naloxone HCl (Naloxone 0.4 Mg/Ml 1 Ml Vial) 0.2 mg IV Q2M PRN PRN Reason: Opioid Reversal Nystatin (Nystatin 100,000 Unit/Gm Powd 15 Gm) 1 applic TOPICAL BID [facility]; Protocol Last Admin: 01/20/21 10:27 Dose: 1 applic Documented by: Oxycodone/Acetaminophen (Oxycodone-Apap 5-325mg 1 Each Tab) 1 each PO Q4HR PRN PRN Reason: Pain Pyridoxine HCl (Pyridoxine 50 Mg Tab) 50 mg PO DAILY [facility] Last Admin: 01/20/21 10:25 Dose: 50 mg Documented by: Senna (Sennosides 8.6 Mg Tab) 8.6 mg PO BID [facility] Last Admin: 01/20/21 10:26 Dose: Not Given Documented by: Sertraline HCl (Sertraline 50 Mg Tab) 50 mg PO HS@2000 [facility] Last Admin: 01/19/21 21:06 Dose: 50 mg Documented by: Sodium Bicarbonate (Sodium Bicarbonate Tab 650 Mg Tab) 650 mg PO TID [facility] Last Admin: 01/20/21 15:49 Dose: 650 mg Documented by: Past medical history to include: Atrial fibrillation, coronary artery disease with stent, congestive heart failure EF 30-35%, COPD, DVT, hypertension, hyperlipidemia, chronic kidney disease, obstructive sleep apnea, hypothyroid, peripheral artery disease, chronic kidney disease stage III, kidney stones, DVT in left leg in 2004,: Abscess with bowel resection, multiple abdominal surgeries for hiatal hernia,. Bladder prolonged hospitalization and prolonged medical-related dependent, with a tracheostomy tube, peripheral arterial disease, colonic diverticulosis, iron deficiency anemia,. Diabetes with peripheral neuropathy Social history: Patient is on disability. Patient smoked for about 10 years and stopped in 2008. No alcohol. Patient lives alone. Does have a scooter and a walker Physical examination: VITAL SIGNS: 98.1, 108, 18, 100, 78, 92% room air GENERAL: He is reclining in bed, less lethargic, EYES: Pupils equal. Conjunctiva normal. NECK: JVD unable to assess; masses not palpable. HEART: Heart sounds irregular; minimal edema. LUNGS: Respiratory rate increased; decreased breath sounds ABDOMEN: Soft, nontender, liver spleen not palpable, no masses palpable, superficial breakdown of skin, and multiple areas, with dressing. DERMATOLOGICAL: Excoriation in the buttock area. Redness in the contiguous - groin area PSYCH: Answering simple questions. Tired EXTREMITIES: Pigmentation of the both lower extremity distally INVESTIGATIONS, reviewed in the clinical context: January 20: Potassium 3.7 BUN 77 creatinine 3.05 January 19: Potassium 3.4 creatinine 3.07 January 18: Potassium 3.8 BUN 71 and creatinine 2.92. Accu-Cheks: 72, 74 January 16: WBC 2.8 hemoglobin 11.8 platelets 97 potassium 3.2 BUN 76 creatinine 3.21 Chest x-ray [January 16]: Infiltrate versus venous congestion. Stable EEG: Background slowing. 2-D echocardiogram: Moderate concentric LVH. EF 35-40%. Moderate MR. Previous labs: Creatinine 4.41 on January 03 Creatinine 2.75 one November 03 Assessment: -Acute on chronic congestive heart exacerbation EF 35-40% from systolic dysfunction from underlying coronary artery disease. Possibly euvolemic IV Lasix 40 mg every 12. Changed over to by mouth Lasix 40 mg twice a day -Persistent atrial flutter fibrillation with ventricular rate: t better controlled Amiodarone. 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 body lotion -COPD in an ex-smoker DuoNeb -Chronic DVT chronically on anticoagulation Eliquis -Hyperlipidemia Lipitor -Chronic kidney disease stage III from diabetic nephropathy and hypertensive nephrosclerosis Follow renal function. Baseline creatinine around 2.7 -Obstructive sleep apnea does not use a device -Hypothyroid Synthroid 25 g -Peripheral arterial disease -Multiple abdominal wall hernia from prior surgery -Colonic diverticulosis, asymptomatic Follow clinically -Obesity BMI 37.2 -Diabetes mellitus type 2 chronically on insulin. With peripheral neuropathy Follow Accu-Cheks -Acute metabolic encephalopathy [multifactorial]: Slow to respond Follow closely -Bacteremia with positive blood cultures for staph aureus, likely source abdominal wall skin. IV daptomycin -Loose stools. Possibly antibiotic associated diarrhea. -Intertriginous alena infection Nystatin powder -Hypoglycemia from decreased oral intake Add glucose tablets -DO NOT RESUSCITATE Patient changed to by mouth Lasix. Discussed with ID. PICC line today. If repeat cultures remain negative. Patient is refusing food. Did attempt to call patient's next of kin, Fer, but only about a voicemail. I. The staff and tried to reach him unable to do so.
[2021-01-20 17:12] LABS: Glucose,Whole Blood 87 mg/dL (75-99)
--- NOTE | 2021-01-20 17:14 | PN ---
PROGRESS NOTE DATE OF SERVICE: 01/20/2021 REASON FOR FOLLOWUP: MRSA bacteremia. INTERVAL HISTORY: The patient is afebrile. The patient is breathing comfortably. Patient denies having any chest pain or shortness of breath. Occasional cough. No abdominal pain. No diarrhea. PHYSICAL EXAMINATION: Blood pressure 132/77 with a pulse of 115. Temperature 98.5. He is 94% on 2 L nasal cannula. General description is a middle-aged male lying in bed in no distress. Respiratory system: Unlabored breathing, clear to auscultation anteriorly. Heart S1, S2. Regular rate and rhythm. Abdomen: Soft. Wound is currently dressed. LAB DATA: BUN of 77; creatinine 3.05. Blood culture repeat on January 17, has been negative so far. DIAGNOSTIC IMPRESSION AND PLAN: 1. Patient with MRSA bacteremia concern for possible endovascular source, cardiology has recommended against TAMIA. The patient has cleared his bacteremia. Plan is to get a PICC line and total of 6 weeks of IV daptomycin and close outpatient followup. 2. Abdominal wall wound. Local wound care with Aquacel Silver dressing. MMODL / IJN: [id number] /
[2021-01-20 20:32] LABS: Glucose,Whole Blood 78 mg/dL (75-99)
[2021-01-20] MEDS: LEVOTHYROXINE 25 MCG TAB PO SCH (21:02)
[2021-01-20] MEDS: ATORVASTATIN 40 MG TAB PO SCH (21:02)
[2021-01-20] MEDS: SERTRALINE 50 MG TAB PO SCH (21:03)
[2021-01-20] MEDS: MULTIVITAMINS, THERA 1 EACH TAB PO SCH (21:03)
[2021-01-21] MEDS: IPRATROPIUM-ALBUTEROL 3 ML NEB INHALATION SCH ×4 (03:42→19:11)
[2021-01-21 06:16] LABS: Glucose,Whole Blood 77 mg/dL (75-99)
[2021-01-21] MEDS: MIDODRINE 5 MG TAB PO SCH ×3 (06:45→17:20)
[2021-01-21] MEDS: METOPROLOL TARTRATE 12.5 MG TAB PO SCH ×4 (09:17→20:54)
[2021-01-21] MEDS: APIXABAN 5 MG TAB PO SCH ×3 (09:18→20:53)
[2021-01-21] MEDS: FUROSEMIDE 40 MG TAB PO SCH ×3 (09:18→16:34)
[2021-01-21] MEDS: AMIODARONE 200 MG TAB PO SCH ×3 (09:18→20:53)
[2021-01-21] MEDS: DEXTROSE 4 GM CHEWABLE PO SCH ×4 (09:19→20:54)
[2021-01-21] MEDS: buPROPion XL 150 MG TAB.ER.24H PO SCH (09:22)
[2021-01-21] MEDS: NYSTATIN 100,000 UNIT/GM POWD 15 GM TOPICAL SCH ×2 (09:22→20:53)
[2021-01-21] MEDS: SENNOSIDES 8.6 MG TAB PO SCH ×2 (09:22→20:53)
[2021-01-21] MEDS: PYRIDOXINE 50 MG TAB PO SCH (09:22)
[2021-01-21 11:53] LABS: Glucose,Whole Blood 65 mg/dL (75-99)
--- NOTE | 2021-01-21 12:15 | PN ---
PROGRESS NOTE Patient is seen for followup for acute kidney injury and chronic kidney disease. The patient is currently maintained on antibiotics for wound infection, an abdominal wound which grew MRSA. His renal function has been slowly improving with creatinine down to 3.0 from 3.79 from 4-5 days ago. PHYSICAL EXAMINATION: On examination today, blood pressure 122/83, heart rate 110 per minute. Patient is afebrile. Examination of the heart S1, S2. Examination of the lungs, bilateral breath sounds are heard. Abdomen is soft, nontender. Morbidly obese. Dressing intact. Examination of lower extremities shows no significant edema. Chronic skin changes noted. Significant discoloration of the legs is seen. LABS: From yesterday from 01/20/2021 show sodium 142, potassium 3.7, BUN 77, serum creatinine 3.05. ASSESSMENT: 1. Acute kidney injury, acute tubular necrosis, currently improved, renal function stable, somewhat improved. 2. Chronic kidney disease, stage 3B to 4 secondary to nephrosclerosis, cardiorenal syndrome. Baseline creatinine 2.6-2.7. 3. Acute on chronic congestive heart failure, systolic with ejection fraction 40-45%. 4. Volume overload, now improved. 5. Metabolic acidosis secondary to acute kidney injury and diarrhea, now improved, maintained on oral sodium bicarb. 6. Staphylococcus aureus, MRSA wound infection with MRSA bacteremia, maintained on daptomycin, being followed by ID. PLAN: Continue with current dose of diuretics. Continue midodrine. Continue oral sodium bicarb. Repeat labs in a.m. MMODL / IJN: [id number] /
[2021-01-21 12:50] LABS: Glucose,Whole Blood 65 mg/dL (75-99)
--- NOTE | 2021-01-21 13:58 | P.PN ---
Subjective Progress Note Date: 01/21/21 Principal diagnosis: Acute systolic congestive heart failure with interstitial edema, cannot rule out underlying pneumonia however clinically is felt to be less likely. A 50-year-old white male patient with multiple medical problems including hypertension, hyperlipidemia, chronic atrial fibrillation, this episode of myocardial infarction CHF with diastolic dysfunction, coronary artery disease, COPD, diabetes mellitus type 2, sleep apnea, hypothyroidism, history of DVT, and chronic nonhealing abdominal wounds. Patient has a history of colonic abscess with a bowel resection. We saw the patient in consultation in October 2020 when he was hospitalized with acute exacerbation of CHF. On 01/11/2021 patient presented to the emergency department per EMS for evaluation of altered mental status. Patient is a poor historian. Patient resides in the local [facility]. Apparently she was having decreased appetite, and increased lethargy and confusion. There is no reported fever or difficulty breathing, no cough, no chest discomfort. Most of the history is obtained from the chart, patient is lethargic, and there is no family around. It's unclear whether or not he wears oxygen and CPAP at the senior living. Brain CT showed the ventricles, basal cisterns and sulci overlying the cerebral convexities demonstrating mild enlargement of the patient's age group. Chest x-ray showed right lower lobe infiltrate. Lab work showed a white blood cell count of 3.2, hemoglobin of 12.4, INR is 1.4, sodium is 147, potassium is 4.2, chloride is 113, CO2 17, BUN is 57, creatinine is 3.79, showing acute kidney injury, hyponatremia, dehydration. His proBNP came back at 26,005 100, troponin was negative at less than 0.012, LFTs were within normal limits, pro-calcitonin level was 0.38, uri nalysis showed large amount of blood, 1+ protein, rare bacteria and mucus, but no clear evidence of urinary tract infection. Urine drug screen was negative. Patient has been afebrile since admission, blood pressure is stable, no hypotension, EKG showed atrial flutter with variable AV block, with a rate of 112 BPM, and nonspecific ST and T-wave abnormality. Of note patient was hypoglycemic in the emergency department but sugar of 66, and 1 amp of 50% dextrose was given with subsequent improvement of patient's blood sugars. Lung sounds are essentially clear, patient briefly wakes up, he denies any cough or congestion, no phlegm production. He is not able to tell us whether or not he wears CPAP at home as he is falling asleep. He does have superficial healing wounds on his abdomen which are covered with dressing, he is on Eliquis for history of chronic atrial fibrillation. Vital signs are stable right now. Started on Levaquin empirically, she did receive 500 mL fluid bolus in the emergency department. Neurology evaluation was requested and is pending at this time, EEG is pending, cardiology is consulted, 2-D echocardiogram has been ordered. Wound services are following in regards to the chronic abdominal wounds and patient has a sacral wound as well. Today's evaluation on 01/13/2021 patient seen in follow-up on selective care. He is still very confused, he is awake, he is arousable, however she makes poor eye contact, he thinks he is in [place], he thought there was a word sitting on his foot, he thinks he lives in [place] by himself in a house. Room air pulse ox was noted to be around 76 and subsequently patient was placed on 2 L of oxygen and pulse ox improved to 100%. He appears to be breathing comfortably, no cough, no congestion, no complaints of chest discomfort. No evidence of respiratory distress. EEG was done and showed abnormal EEG, due to background slowing of at least moderate to severe degree suggestive of generalized cerebral dysfunction related to sick metabolic encephalopathy. There were no focal or generalized epileptiform activity seen on the EEG. Brain CT on admission showed enlargement of the ventricles, basal cisterns and sulci with no evidence of intracranial hemorrhage or sulcal effacement. Repeat chest x-ray was reviewed showing interstitial edema though infiltrates of other etiology were not completely excluded, nevertheless patient is covered with empiric antibiotics in the form of Levaquin. he had no fever or chills, today's labs have been reviewed, his white blood cell count is stable at 3.2, hemoglobin is 12.9, sodium is 143, potassium is 4.0, chloride is 111, CO2 16, BUN of 57, and creatinine of 3.61. Patient has been tolerating oral intake, although she does need supervision and assistance with it. No episodes of choking or coughing were noted. His abdominal wounds actually show improvement in the amount of healing, according to the wound care service. They're currently covered with dressings, urine culture has been sent. Abdomen is soft, there has been no vomiting, no diarrhea. The status of his CPAP device at the senior living is unknown, however reviewing his sleep study from several years ago is apparent that patient has severe sleep apnea with AHI score of 55 and up to 90 during the REM sleep. Current settings on his CPAP device are unknown, we will try to get a hold of the ECF to inquire about that 01/14/2021, the patient is being seen in follow-up. As mentioned earlier, he is a 50-year-old male patient with extensive comorbidities including CHF, diastolic heart failure, chronic atrial fibrillation, morbid obesity, obstructive sleep apnea, hypertension, previous history of [place], and massive and several abdominal surgeries work requiring bowel resection and currently his abdominal wall is essentially loose and there is obvious dehiscence of the abdominal muscles with some superficial wounds have been nonhealing for quite sometime. The patient came to with worsening appetite, diminished level of consciousness, and some difficulty breathing. His echocardiogram is showing an ejection fraction of 35- 40% and there is a combination of systolic and diastolic heart failure. He has also not to moderate RV enlargement, normal LV, moderate mitral regurgitation, PA pressures 37. Earlier this morning he was found to be in nature fibrillation with rapid ventricular response. He is currently on 05 mg by mouth twice a day for rate control. He is also on metoprolol 25 mg by mouth twice a day he had his chest x-rays showing pulmonary vessel congestion. Some limited effusion lung bases bilaterally. He remains on 2 L of oxygen by nasal cannula. No clear signs of pneumonia. No cough or congestion. He is on Levaquin as an empiric antibiotic coverage. He does have chronic edema lower extremities bilaterally. His mentation is still altered and he waxes and wanes. He was able to communicate with me. He is not cooperative. Doesn't volunteer any significant information. Neurologist on the case. EEG was abnormal and there is cerebral dysfunction consistent with encephalopathy. 01/15/2021, the patient is still doing poorly. He remains confused. He has draining abdominal wounds. One of the blood cultures came positive for gram- positive cocci. He is also having liquidy stool and for C. diff has been checked and sent. Results of the pending for now. He also developed some hypotension. His systolic blood pressures the mid 80s. He'll be given bolus of IV fluids. His heart rate is under better control. He is tachycardic regarding his atrial fibrillation. He is on a combination of amiodarone and digoxin for rate control. He was also on beta ariella dose being adjusted by cardiology. No significant respiratory distress. He is currently on 2 L of oxygen by nasal cannula. Antibiotic coverage includes a combination of vancomycin and Levaquin. Reevaluated today on 01/16/2021, patient remains about the same, intermittently confused, continues to have some draining from the abdominal ones, one of the blood cultures came back positive for presumptive MRSA. Patient is being followed by infectious disease and he is on multiple antibiotics. Chest x-ray continues to show evidence of interstitial edema, however considering his blood pressure is marginal, his Lasix was placed on hold. WBC count today is 2.8 hemoglobin is 11.8 electrolytes are normal BUN is up to 76 creatinine 3.21. Improving, patient is being followed by nephrology. The patient is seen today 01/17/2021 in follow-up on the selective care unit. He is currently resting fairly comfortably in bed. A bit more awake and alert. Maintaining O2 saturations in the 90s on 2 L/m per nasal cannula. He is afebrile. Slightly tachycardic. Blood cultures positive for methicillin- resistant Staphylococcus aureus. Abdominal wound culture pending. Urine culture no growth. White count 3.2. Hemoglobin 11.9. Platelets 94,000. Sodium 141. Potassium 3.4. Bicarb 19. Creatinine 3.21. He remains on IV diuretics. Amiodarone for rate control. Eliquis for anticoagulation. Antibiotics in the form of daptomycin and Levaquin. The patient is seen today 01/18/2021 in follow-up in the selective care unit. He is awake and alert. He is resting comfortably in bed. He is maintaining O2 saturations up to 99% on 2 L/m per nasal cannula. He is utilizing CPAP at night at 8 cm of water with C-Flex of 2 and FiO2 at 28%. Chest x-ray continues to show a right lower lobe infiltrate. There is borderline cardiomegaly. Some evidence of volume overload. Blood cultures are positive for penicillin resistant Staphylococcus aureus. Abdominal wound culture pending. Sodium 140. Potassium 3.8. Bicarbonate 17. Creatinine 2.92. Glucose 72. He remains on bronchodilators, IV diuretics, daptomycin. Anticoagulated with Eliquis. Nephrology is following. He is on sodium bicarb tablets. The patient is seen today in follow-up on the selective care unit. He is curre ntly resting comfortably in bed. That more awake and alert today compared to yesterday. Currently denies any worsening shortness of breath, cough or congestion. Maintaining O2 saturations in the 90s on 2 L/m per nasal cannula He remains on DuoNeb inhalations, IV diuretics. Anticoagulated with Eliquis. Antibiotics in the form of daptomycin. Initial blood cultures were positive for MRSA. Abdominal wound culture positive for presumptive MRSA and Rae. Follow-up blood cultures are revealing no growth to date. Sodium 140. Potassium 3.4. Bicarb 21. BUN 72. Creatinine 3.07 The patient is seen today 01/20/2021 in follow-up on the selective care unit. He is currently resting fairly comfortably in bed. He has been pulling out his IVs and taken off his oxygen. Usually he is maintaining O2 saturations in the mid to upper 90s on 2 L/m per nasal cannula. He's been afebrile. Slightly tachycardic. Blood cultures positive for MRSA. Wound cultures positive for MRSA and Rae. Follow-up blood cultures from 01/17/2021 are revealing no growth to date. Blood glucose 73. He remains on bronchodilators, antibiotics in the form of daptomycin. Changed to oral diuretics. Anticoagulated with Eliquis. He did undergo a PICC line insertion today. Patient was on 01/21/2021, remains basically about the same, patient has been pulling all his lines that were placed, and I see the patient has pulled out his PICC line. This is going to be an extremely difficult situation for this p atient since he cannot keep any lines to receive adequate and proper course and proper time of antibiotics as recommended by infectious disease. Patient was supposed to have a sitter at bedside, however for some reason the line was pulled out again. I am recommending seriously considering hospice on this patient. Objective - Vital Signs Vital signs: Vital Signs Temp 98.4 F 01/21/21 03:00 Pulse 139 H 01/21/21 12:00 Resp 16 01/21/21 12:00 BP 143/93 01/21/21 12:00 Pulse Ox 97 01/21/21 12:00 Intake & Output 01/20/21 01/21/21 01/21/21 18:59 06:59 18:59 Intake Total 440 237 Output Total 626 500 Balance -186 237 -500 Weight 119 kg Intake: Oral 440 237 Output: Urine 625 500 Stool 1 Other: Voiding Method Indwelling Catheter Indwelling Catheter Indwelling Catheter # Bowel Movements 1 - Exam GENERAL EXAM: Revealed a 50-year-old white male in no distress, slightly confused. HEAD: Normocephalic/atraumatic. EYES: Normal reaction of pupils, equal size. Conjunctiva pink, sclera white. NOSE: Clear with pink turbinates. THROAT: No erythema or exudates. NECK: No masses, no JVD, no thyroid enlargement, no adenopathy. CHEST: No chest wall deformity. Symmetrical expansion. LUNGS: Equal air entry with no crackles, wheeze, rhonchi or dullness. CVS: Regular rate and rhythm, normal S1 and S2, no gallops, no murmurs, no rubs ABDOMEN: Soft, nontender. No hepatosplenomegaly, normal bowel sounds, no guarding or rigidity. Multiple superficial healing wounds on the left abdomen, covered with a dressing, minimal drainage, nonpurulent. Large incisional hernia on the right abdomen EXTREMITIES: No clubbing, no edema, no cyanosis, 2+ pulses and upper and lower extremities. Chronic venous changes with dark discoloration noted of the lower extremities bilaterally. MUSCULOSKELETAL: Muscle strength and tone normal. SKIN: Abdominal wounds. Chronic venous stasis changes noted in lower extremities bilaterally. CENTRAL NERVOUS SYSTEM: Confused, generalized weakness in all 4 extremities. - Labs CBC & Chem 7: 01/17/21 07:43 01/20/21 10:45 Labs: Abnormal Lab Results - Last 24 Hours (Table) 01/21/21 01/21/21 Range/Units 11:52 12:38 POC Glucose (mg/dL) 65 L 65 L (75-99) mg/dL Microbiology - Last 24 Hours (Table) 01/19/21 11:46 Blood Culture - Preliminary Blood No Growth after 48 hours 01/19/21 11:46 Blood Culture - Preliminary Blood No Growth after 48 hours 01/17/21 10:32 Blood Culture - Preliminary Blood No Growth after 96 hours 01/17/21 10:41 Blood Culture - Preliminary Blood No Growth after 96 hours Assessment and Plan Assessment: Impression: Acute systolic congestive heart failure, with interstitial edema, cannot rule out underlying pneumonia, but felt to be less likely. Chronic atrial fibrillation. Acute metabolic encephalopathy, multifactorial. Hypotension with intravascular volume depletion Nonhealing chronic abdominal ones. MRSA bacteremia, most likely source is his abdominal wounds Obstructive sleep apnea syndrome Morbid obesity Benign essential hypertension Coronary artery disease and previous PCI and stenting of the circumflex and LAD History of DVT Acute kidney injury/acute tubular necrosis on top of a chronic kidney disease stage III Chronic kidney disease stage III Resident of [facility]. Chronic atrial fibrillation. Recommendation: Continue antibiotics as per infectious disease on the case, patiently is now on daptomycin Titrate oxygen accordingly. Continue amiodarone and digoxin. Considering the patient is extremely ill, and prognosis is extremely poor, and considering the patient has been unable to maintain any IV access without pulling it out, I would recommend seriously considering hospice care for this patient Overall prognosis remains guarded. We'll continue to follow Time with Patient: Less than 30
[2021-01-21 14:38] LABS: Glucose,Whole Blood 76 mg/dL (75-99)
--- NOTE | 2021-01-21 15:03 | P.PN ---
Progress Note - Text Progress Note Date: 01/21/21 History of presenting complaint: 50-year-old patient, follows with Dr. Bhatt. Chronic stable medical conditions include diabetes with peripheral neuropathy, atrial fibrillation, coronary artery disease with stent, COPD, hypertension, hyperlipidemia, chronic kidney disease, kidney stones,(s) sleep apnea does not use a device, multiple abdominal surgeries for hiatal hernia, also history of tracheostomy, peripheral arterial disease, diverticulosis,. 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 Normally uses a scooter or a walker to get about. Patient has chronic breakdown of superficial skin on the abdominal wall from scratching. Admitted with acute on chronic hypoxic respiratory failure, metabolic encephalopathy, acute and chronic heart failure, possible right basilar pneumonia, COPD exacerbation, acute kidney injury on CK D, paroxysmal atrial fibrillation. Patient has been receiving IV fluids for low blood pressure the same time IV Lasix for fluid overload. Blood cultures positive for staph aureus. On IV daptomycin. Patient DO NOT RESUSCITATE January 2: Patient lethargic. . Eating about 25% with assistance. Able to answer simple questions. Blood pressure running on the lower side. In atrial fibrillation, heart rate in 1 teens January 3: Patient bit more awake today. tired. Needing assistance for feeding. Answering simple questions. Blood pressure remains in the lower side. Atrial fibrillation remains uncontrolled. some loose stools. Discussed with Dr. russell from ID. [facility]NET[facility] Golden. Redness in the groin area. January 4: Laying in bed. Lethargic. But answering questions. Eating about 25- 50%. With assistance. Atrial flutter fibrillation. Uncontrolled January 5: Laying in bed. Tired. Does make up to answer questions. Swain catheter. Did not eat breakfast today. January 6: reclining up in bed. Slightly more awake. Refusing meals. Not interested in talking. January 7: Reclining in bed. Scratching. Not eating. Slightly lethargic. Patient has been ripping off his telemetry . Not keeping it down. Hence it was discontinued. Patient is also intermittently refusing medications. Review of systems: Attempted for constitutional, cardiovascular, GI, pulmonary. relevant finding as above Active Medications Acetaminophen (Acetaminophen Tab 325 Mg Tab) 650 mg PO Q6HR PRN PRN Reason: Mild Pain or Fever > 100.5 Last Admin: 01/16/21 06:35 Dose: 650 mg Documented by: Albuterol/Ipratropium (Ipratropium-Albuterol 3 Ml Neb) 3 ml INHALATION RT-Q6H [facility] Last Admin: 01/21/21 13:15 Dose: Not Given Documented by: Amiodarone HCl (Amiodarone 200 Mg Tab) 200 mg PO BID [facility] Stop: 01/27/21 02:00 Last Admin: 01/21/21 09:25 Dose: Not Given Documented by: Amiodarone HCl (Amiodarone 200 Mg Tab) 200 mg PO DAILY [facility] Apixaban (Apixaban 5 Mg Tab) 5 mg PO BID [facility]; Protocol Last Admin: 01/21/21 09:25 Dose: Not Given Documented by: Atorvastatin Calcium (Atorvastatin 40 Mg Tab) 40 mg PO HS@1999 [facility] Last Admin: 01/20/21 21:02 Dose: 40 mg Documented by: Bupropion HCl (Bupropion Xl 150 Mg Tab.Er.24h) 150 mg PO DAILY [facility] Last Admin: 01/21/21 09:22 Dose: Not Given Documented by: Furosemide (Furosemide 40 Mg Tab) 40 mg PO BID@0900,1600 [facility] Last Admin: 01/21/21 09:25 Dose: Not Given Documented by: Glucose (Dextrose 4 Gm Chewable) 4 gm PO QID [facility] Last Admin: 01/21/21 12:23 Dose: 4 gm Documented by: Daptomycin 800 mg/ Sodium (Chloride) 50 mls @ 100 mls/hr IVPB Q24H [facility]; Protocol Last Admin: 01/20/21 15:49 Dose: 100 mls/hr Documented by: Levothyroxine Sodium (Levothyroxine 25 Mcg Tab) 25 mcg PO HS@1999 [facility] Last Admin: 01/20/21 21:02 Dose: 25 mcg Documented by: Metoprolol Tartrate (Metoprolol Tartrate 12.5 Mg Tab) 12.5 mg PO TID [facility] Last Admin: 01/21/21 09:25 Dose: Not Given Documented by: Midodrine (Midodrine 5 Mg Tab) 5 mg PO AC-TID [facility] Last Admin: 01/21/21 12:23 Dose: Not Given Documented by: Miscellaneous Information (Potassium Replacement Protocol 1 Each Misc) 1 each MISCELLANE DAILY PRN; Protocol PRN Reason: Per Protocol Multivitamins (Multivitamins, Thera 1 Each Tab) 1 each PO HS [facility] Last Admin: 01/20/21 21:03 Dose: 1 each Documented by: Naloxone HCl (Naloxone 0.4 Mg/Ml 1 Ml Vial) 0.2 mg IV Q2M PRN PRN Reason: Opioid Reversal Nystatin (Nystatin 100,000 Unit/Gm Powd 15 Gm) 1 applic TOPICAL BID [facility]; Protocol Last Admin: 01/21/21 09:22 Dose: Not Given Documented by: Oxycodone/Acetaminophen (Oxycodone-Apap 5-325mg 1 Each Tab) 1 each PO Q4HR PRN PRN Reason: Pain Pyridoxine HCl (Pyridoxine 50 Mg Tab) 50 mg PO DAILY [facility] Last Admin: 01/21/21 09:22 Dose: Not Given Documented by: Senna (Sennosides 8.6 Mg Tab) 8.6 mg PO BID [facility] Last Admin: 01/21/21 09:22 Dose: Not Given Documented by: Sertraline HCl (Sertraline 50 Mg Tab) 50 mg PO HS@2000 [facility] Last Admin: 01/20/21 21:03 Dose: 50 mg Documented by: Sodium Bicarbonate (Sodium Bicarbonate Tab 650 Mg Tab) 650 mg PO TID [facility] Last Admin: 01/20/21 21:03 Dose: 650 mg Documented by: Past medical history to include: Atrial fibrillation, coronary artery disease with stent, congestive heart failure EF 30-35%, COPD, DVT, hypertension, hyperlipidemia, chronic kidney disease, obstructive sleep apnea, hypothyroid, peripheral artery disease, chronic kidney disease stage III, kidney stones, DVT in left leg in 2004,: Abscess with bowel resection, multiple abdominal surgeries for hiatal hernia,. Bladder prolonged hospitalization and prolonged medical-related dependent, with a tracheostomy tube, peripheral arterial disease, colonic diverticulosis, iron deficiency anemia,. Diabetes with peripheral neuropathy Social history: Patient is on disability. Patient smoked for about 10 years and stopped in 2008. No alcohol. Patient lives alone. Does have a scooter and a walker Physical examination: VITAL SIGNS: 98.4, 106, 18, 102/65, 98% 2 L GENERAL: He is reclining in bed, awake, tired EYES: Pupils equal. Conjunctiva normal. NECK: JVD unable to assess; masses not palpable. HEART: Heart sounds irregular; minimal edema. LUNGS: Respiratory rate increased; decreased breath sounds ABDOMEN: Soft, nontender, liver spleen not palpable, no masses palpable, superficial breakdown of skin, and multiple areas, with dressing. DERMATOLOGICAL: Excoriation in the buttock area. Redness in the contiguous - groin area PSYCH: Answering simple questions. Tired EXTREMITIES: Pigmentation of the both lower extremity distally INVESTIGATIONS, reviewed in the clinical context: January 20: Potassium 3.7 BUN 77 creatinine 3.05 January 19: Potassium 3.4 creatinine 3.07 January 18: Potassium 3.8 BUN 71 and creatinine 2.92. Accu-Cheks: 72, 74 January 16: WBC 2.8 hemoglobin 11.8 platelets 97 potassium 3.2 BUN 76 creatinine 3.21 Chest x-ray [January 16]: Infiltrate versus venous congestion. Stable EEG: Background slowing. 2-D echocardiogram: Moderate concentric LVH. EF 35-40%. Moderate MR. Previous labs: Creatinine 4.41 on January 03 Creatinine 2.75 one November 03 Assessment: -Acute on chronic congestive heart exacerbation EF 35-40% from systolic dysfunction from underlying coronary artery disease. euvolemic IV Lasix 40 mg every 12. Changed over to by mouth Lasix 40 mg twice a day -Persistent atrial flutter fibrillation with ventricular rate: t better controlled Amiodarone. 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 body lotion -COPD in an ex-smoker DuoNeb -Chronic DVT chronically on anticoagulation Eliquis -Hyperlipidemia Lipitor -Chronic kidney disease stage III from diabetic nephropathy and hypertensive nephrosclerosis Follow renal function. Baseline creatinine around 2.7 -Obstructive sleep apnea does not use a device -Hypothyroid Synthroid 25 g -Peripheral arterial disease -Multiple abdominal wall hernia from prior surgery -Colonic diverticulosis, asymptomatic Follow clinically -Obesity BMI 37.2 -Diabetes mellitus type 2 chronically on insulin. With peripheral neuropathy Follow Accu-Cheks -Acute metabolic encephalopathy [multifactorial]: Slow to respond Follow closely -Bacteremia with positive blood cultures for staph aureus, likely source abdominal wall skin. IV daptomycin -Loose stools. Possibly antibiotic associated diarrhea. -Intertriginous alena infection Nystatin powder -Hypoglycemia from decreased oral intake Add glucose tablets -DO NOT RESUSCITATE Patient has been refusing medications. Taking off telemetry. Prognosis is rather poor. Given his multiple comorbidities and his poor functional status. Try to reach the family, again today
--- NOTE | 2021-01-21 15:57 | PN ---
PROGRESS NOTE DATE OF SERVICE: 01/21/2021. REASON FOR FOLLOWUP: MRSA bacteremia. INTERVAL HISTORY: The patient is afebrile. The patient did pull out his PICC line yesterday. The patient is currently breathing comfortably on nasal cannula oxygen. No vomiting, diarrhea or further agitation has been reported by nursing staff. PHYSICAL EXAMINATION: Blood pressure 143/93 with a pulse of 100, temperature of 98. He is ( )% on 2 L nasal cannula. General description is a middle-aged male lying in bed in no distress. Respiratory system: Unlabored breathing, clear to auscultation anteriorly. Heart S1, S2. Regular rate and rhythm. Abdomen soft, no tenderness. Skin with multiple scratches. LABS: Blood culture repeat has been negative so far. DIAGNOSTIC IMPRESSION AND PLAN: Patient with MRSA bacteremia, possible endovascular source. ( ) not completed yet. The patient to continue daptomycin because of his kidney function. Plan for a total of 6 weeks of antibiotic and close outpatient followup. MMODL / IJN: [id number] /
[2021-01-21 16:56] LABS: Glucose,Whole Blood 85 mg/dL (75-99)
[2021-01-21] MEDS: SODIUM BICARBONATE TAB 650 MG TAB PO SCH ×2 (17:20→20:54)
[2021-01-21] MEDS: MULTIVITAMINS, THERA 1 EACH TAB PO SCH (20:53)
[2021-01-21] MEDS: SERTRALINE 50 MG TAB PO SCH (20:53)
[2021-01-21] MEDS: LEVOTHYROXINE 25 MCG TAB PO SCH (20:53)
[2021-01-21] MEDS: ATORVASTATIN 40 MG TAB PO SCH (20:53)
[2021-01-21 21:02] LABS: Glucose,Whole Blood 90 mg/dL (75-99)
[2021-01-22] MEDS: IPRATROPIUM-ALBUTEROL 3 ML NEB INHALATION SCH ×4 (03:38→20:35)
[2021-01-22] MEDS: MIDODRINE 5 MG TAB PO SCH ×3 (06:26→17:25)
[2021-01-22] MEDS: APIXABAN 5 MG TAB PO SCH ×2 (09:02→20:10)
[2021-01-22] MEDS: AMIODARONE 200 MG TAB PO SCH ×2 (09:02→20:10)
[2021-01-22] MEDS: buPROPion XL 150 MG TAB.ER.24H PO SCH (09:02)
[2021-01-22] MEDS: SODIUM BICARBONATE TAB 650 MG TAB PO SCH ×3 (09:03→22:20)
[2021-01-22] MEDS: DEXTROSE 4 GM CHEWABLE PO SCH ×4 (09:03→22:20)
[2021-01-22] MEDS: NYSTATIN 100,000 UNIT/GM POWD 15 GM TOPICAL SCH ×2 (09:03→22:19)
[2021-01-22] MEDS: PYRIDOXINE 50 MG TAB PO SCH (09:03)
[2021-01-22] MEDS: FUROSEMIDE 40 MG TAB PO SCH ×2 (09:03→12:37)
[2021-01-22] MEDS: METOPROLOL TARTRATE 12.5 MG TAB PO SCH ×3 (09:03→22:20)
[2021-01-22] MEDS: SENNOSIDES 8.6 MG TAB PO SCH ×2 (09:03→20:10)
[2021-01-22 11:53] LABS: Glucose,Whole Blood 68 mg/dL (75-99)
[2021-01-22 11:53] LABS: Glucose,Whole Blood 73 mg/dL (75-99)
--- NOTE | 2021-01-22 11:56 | P.PN ---
Subjective Progress Note Date: 01/22/21 A 50-year-old white male patient with multiple medical problems including hypertension, hyperlipidemia, chronic atrial fibrillation, this episode of myocardial infarction CHF with diastolic dysfunction, coronary artery disease, COPD, diabetes mellitus type 2, sleep apnea, hypothyroidism, history of DVT, and chronic nonhealing abdominal wounds. Patient has a history of colonic abscess with a bowel resection. We saw the patient in consultation in October 2020 when he was hospitalized with acute exacerbation of CHF. On 01/11/2021 patient presented to the emergency department per EMS for evaluation of altered mental status. Patient is a poor historian. [facility] Apparently she was having decreased appetite, and increased lethargy and confusion. There is no reported fever or difficulty breathing, no cough, no chest discomfort. Most of the history is obtained from the chart, patient is lethargic, and there is no family around. It's unclear whether or not he [facility] and [facility]AP [facility] Brain CT showed the ventricles, basal cisterns and sulci overlying the cerebral convexities demonstrating mild enlargement of the patient's age group. Chest x-ray showed right lower lobe infiltrate. Lab work showed a white blood cell count of 3.2, hemoglobin of 12.4 , INR is 1.4, sodium is 147, potassium is 4.2, chloride is 113, CO2 17, BUN is 57, creatinine is 3.79, showing acute kidney injury, hyponatremia, dehydration. His proBNP came back at 26,005 100, troponin was negative at less than 0.012, LFTs were within normal limits, pro-calcitonin level was 0.38, urinalysis showed large amount of blood, 1+ protein, rare bacteria and mucus, but no clear evidence of urinary tract infection. Urine drug screen was negative. Patient has been afebrile since admission, blood pressure is stable, no hypotension, EKG showed atrial flutter with variable AV block, with a rate of 112 BPM, and nonspecific ST and T-wave abnormality. Of note patient was hypoglycemic in the emergency department but sugar of 66, and 1 amp of 50% dextrose was given with subsequent improvement of patient's blood sugars. Lung sounds are essentially clear, patient briefly wakes up, he denies any cough or congestion, no phlegm production. He is not able to tell us whether or not he wears CPAP at home as he is falling asleep. He does have superficial healing wounds on his abdomen w hich are covered with dressing, he is on Eliquis for history of chronic atrial fibrillation. Vital signs are stable right now. Started on Levaquin empirically, she did receive 500 mL fluid bolus in the emergency department. Neurology evaluation was requested and is pending at this time, EEG is pending, cardiology is consulted, 2-D echocardiogram has been ordered. Wound services are following in regards to the chronic abdominal wounds and patient has a sacral wound as well. Today's evaluation on 01/13/2021 patient seen in follow-up on selective care. He is still very confused, he is awake, he is arousable, however she makes poor eye contact, he thinks he is in [place], he thought there was a word sitting on his foot, he thinks he lives in [place] by himself in a house. Room air pulse ox was noted to be around 76 and subsequently patient was placed on 2 L of oxygen and pulse ox improved to 100%. He appears to be breathing comfortably, no cough, no congestion, no complaints of chest discomfort. No evidence of respiratory distress. EEG was done and showed abnormal EEG, due to background slowing of at least moderate to severe degree suggestive of generalized cerebral dysfunction related to sick metabolic encephalopathy. There were no focal or generalized epileptiform activity seen on the EEG. Brain CT on admission showed enlargement of the ventricles, basal cisterns and sulci with no evidence of intracranial hemorrhage or sulcal effacement. Repeat chest x-ray was reviewed showing interstitial edema though infiltrates of other etiology were not completely excluded, nevertheless patient is covered with empiric antibiotics in the form of Levaquin. he had no fever or chills, today's labs have been reviewed, his white blood cell count is stable at 3.2, hemoglobin is 12.9, sodium is 143, potassium is 4.0, chloride is 111, CO2 16, BUN of 57, and creatinine of 3.61. Patient has been tolerating oral intake, although she does need supervision and assistance with it. No episodes of choking or coughing were noted. His abdominal wounds actually show improvement in the amount of healing, according to the wound care service. They're currently covered with dressings, urine culture has been sent. Abdomen is soft, there has been no vomiting, no diarrhea. The status of his CPAP device [facility] the [facility] is unknown, however reviewing his sleep study from several years ago is apparent that patient has severe sleep apnea with AHI score of 55 and up to 90 during the REM sleep. Current settings on his CPAP device are unknown, we will try to get a hold of the ECF to inquire about that On 01/22/2021 patient seen in follow-up on selective care. In the last couple of days patient has been refusing all care including vital signs, his been repeatedly removing his IV lines, he pulled out his new PICC line. He is refusing to [place] on, to have a dressing applied on his abdomen, his abdominal dressing is off, and the abdominal wound although superficial it is open, does not look infected, with granulation tissue at the wound bed. Per nursing report patient has been swearing, he is uncooperative, he is not allowing them to check his blood sugar or take a blood pressure reading. He is not taking his medications. Patient is receiving his breathing treatments, didn't receive any of his yesterday's on today's medications because of his refusal. When we came in to evaluate him he appears to be awake and alert, does not appear to be in any acute distress, he is breathing comfortably, however he is refusing to be examined, and he is swearing at us. His last blood pressure reading was at 3:00 this morning and it was 121/86, his last temperature that he allowed to take was last night at 8:00 and it was normal at 97.9. He is currently off the oxygen, but she was on 2 L of oxygen his pulse ox was 95%. There is currently no IV access to give the patient his IV antibiotics. In view of patient's refusal of all medical care, his multiple medical problems, we recommended hospice. The attending physician is currently attempting to reach family to discuss hospice. Objective - Vital Signs Vital signs: Vital Signs Temp 97.9 F 01/21/21 20:00 Pulse 116 H 01/22/21 03:23 Resp 16 01/22/21 03:23 BP 121/86 01/22/21 03:23 Pulse Ox 95 01/22/21 03:23 Intake & Output 01/21/21 01/22/21 01/22/21 18:59 06:59 18:59 Intake Total 240 0 Output Total 500 525 Balance -260 -525 0 Weight 116.5 kg Intake: Oral 240 0 Output: Urine 500 525 Other: Voiding Method Indwelling Catheter Indwelling Catheter Indwelling Catheter # Bowel Movements 1 - Exam GENERAL EXAM: 50-year-old obese white male, breathing comfortably, on room air, patient is refusing all medical care at this time, including blood pressure readings, blood glucose monitoring, and physical examination. He is swearing at the staff, he will not take his medications HEAD: Normocephalic/atraumatic. EYES: Normal reaction of pupils, equal size. Conjunctiva pink, sclera white. NOSE: Clear with pink turbinates. THROAT: No erythema or exudates. NECK: No masses, no JVD, no thyroid enlargement, no adenopathy. CHEST: No chest wall deformity. Symmetrical expansion. LUNGS: Not auscultated CVS: Regular rate and rhythm, normal S1 and S2, no gallops, no murmurs, no rubs ABDOMEN: Multiple superficial healing wounds on the left abdomen, clear open, Large incisional hernia on the right abdomen EXTREMITIES: No clubbing, no edema, no cyanosis, 2+ pulses and upper and lower extremities. MUSCULOSKELETAL: Muscle strength and tone normal. SPINE: No scoliosis or deformity SKIN: No rashes CENTRAL NERVOUS SYSTEM: Awake and alert 50-year-old obese white male,, No focal deficits, tone is normal in all 4 extremities. - Labs CBC & Chem 7: 01/17/21 07:43 01/20/21 10:45 Labs: Abnormal Lab Results - Last 24 Hours (Table) 01/21/21 01/21/21 Range/Units 11:52 12:38 POC Glucose (mg/dL) 65 L 65 L (75-99) mg/dL Microbiology - Last 24 Hours (Table) 01/19/21 11:46 Blood Culture - Preliminary Blood No Growth after 48 hours 01/19/21 11:46 Blood Culture - Preliminary Blood No Growth after 48 hours 01/17/21 10:32 Blood Culture - Preliminary Blood No Growth after 96 hours 01/17/21 10:41 Blood Culture - Preliminary Blood No Growth after 96 hours Assessment and Plan Plan: Assessment: #1. Acute MRSA bacteremia, possibly related to abdominal wound or endovascular source, patient is on daptomycin, currently on hold related to lack of IV access #2. Altered mental status, multifactorial, related to toxic metabolic encephalopathy, neurology consultation is pending, brain CT showed no acute findings, improved #3. Hypernatremia related to dehydration, and free water deficit, resolved #4. Hypoglycemia, treated with 50% dextrose, resolved #5. Interstitial edema on the chest x-ray, possibility of pneumonia is unlikely, and the findings were felt to be more consistent with mild fluid overload and exacerbation of diastolic CHF #6. Resident of a local ECF #7. Nonhealing chronic abdominal wounds #8. History of bowel resection related to abdominal sepsis and colonic abscess #9. Obstructive sleep apnea, severe, AHI score of 55, and 92 during REM sleep. Noncompliant according to ECF report #10. Morbid obesity #11. Chronic A. fib on Eliquis #12. History of hypertension #13. Hyperlipidemia #14. History of coronary artery disease status post PCI and stenting of the circumflex and LAD #15. History of a DVT #16. Acute kidney injury related to ATN improving #17. Chronic kidney disease stage III #18. Medical noncompliance, patient is currently refusing all medical care including vital signs, blood glucose monitoring, antibiotics Plan: Patient has been refusing all medical care Patient has pulled out multiple IV accesses including his most recent PICC line He is not even allowing blood pressure to be taken Has not taken oral pills In view of his multiple medical problems, and his refusal to care, we recommend hospice consultation Attending physician is trying to reach the family and discuss hospice consultation In the meantime patient is DO NOT RESUSCITATE We'll continue supportive treatment if patient allows it Pulmonary service will sign off and follow on an as-needed basis I performed a history & physical examination of the patient and discussed their management with my nurse practitioner, Paola Tompkins. I reviewed the nurse practitioner's note and agree with the documented findings and plan of care. Lung sounds are positive for clear breath. The findings and the impression was discussed with the patient. I attest to the documentation by the nurse practitioner. Time with Patient: Less than 30
--- NOTE | 2021-01-22 12:09 | PN ---
PROGRESS NOTE Patient is seen for followup for acute kidney injury on top of chronic kidney disease. The patient's renal function has been stable. He is maintained on antibiotics for underlying cellulitis and MRSA bacteremia. PHYSICAL EXAMINATION: On examination today, patient is having chills. Blood pressure is 121/86, heart rate 116 per minute, he is afebrile. Examination of the heart S1, S2. Examination of the lungs, bilateral breath sounds are heard. Abdomen is soft, nontender, morbidly obese. The abdominal wound dressing is off. No major drainage noted. examination of lower extremities shows chronic skin changes. No significant edema seen. JR. [employer]ELOPER exam grossly intact. LAB: Show from 01/20/2021, sodium 142, potassium 3.7, BUN 77 serum creatinine 3.05. ASSESSMENT: 1. Acute kidney injury, acute tubular necrosis, currently improved. 2. Chronic kidney disease, NKF stage 4 secondary to nephrosclerosis cardiorenal syndrome. Baseline creatinine 2.6-2.7. 3. Cardiomyopathy, ejection fraction 40-45% with acute on chronic systolic congestive heart failure. 4. Volume overload, now improved. 5. Metabolic acidosis associated with acute kidney injury and diarrhea, now improved, maintained on sodium bicarb. 6. Staph aureus MRSA wound infection and MRSA bacteremia, maintained on daptomycin, being followed by ID. PLAN: Check labs today. Continue with midodrine. Continue antibiotics as per ID. MMODL / IJN: [id number] /
[2021-01-22 12:20] LABS: Glucose,Whole Blood 75 mg/dL (75-99)
--- NOTE | 2021-01-22 14:03 | P.PN ---
Progress Note - Text Progress Note Date: 01/22/21 History of presenting complaint: 50-year-old patient, follows with Dr. Bhatt. Chronic stable medical conditions include diabetes with peripheral neuropathy, atrial fibrillation, coronary artery disease with stent, COPD, hypertension, hyperlipidemia, chronic kidney disease, kidney stones,(s) sleep apnea does not use a device, multiple abdominal surgeries for hiatal hernia, also history of tracheostomy, peripheral arterial disease, diverticulosis,. 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 Normally uses a scooter or a walker to get about. Patient has chronic breakdown of superficial skin on the abdominal wall from scratching. Admitted with acute on chronic hypoxic respiratory failure, metabolic encephalopathy, acute and chronic heart failure, possible right basilar pneumonia, COPD exacerbation, acute kidney injury on CK D, paroxysmal atrial fibrillation. Patient has been receiving IV fluids for low blood pressure the same time IV Lasix for fluid overload. Blood cultures positive for staph aureus. On IV daptomycin. Patient DO NOT RESUSCITATE January 2: Patient lethargic. . Eating about 25% with assistance. Able to answer simple questions. Blood pressure running on the lower side. In atrial fibrillation, heart rate in 1 teens January 3: Patient bit more awake today. tired. Needing assistance for feeding. Answering simple questions. Blood pressure remains in the lower side. Atrial fibrillation remains uncontrolled. some loose stools. Discussed with Dr. russell from ID. KENNETH Golden. Redness in the groin area. January 4: Laying in bed. Lethargic. But answering questions. Eating about 25- 50%. With assistance. Atrial flutter fibrillation. Uncontrolled January 5: Laying in bed. Tired. Does make up to answer questions. Swain catheter. Did not eat breakfast today. January 6: reclining up in bed. Slightly more awake. Refusing meals. Not interested in talking. January 7: Reclining in bed. Scratching. Not eating. Slightly lethargic. Patient has been ripping off his telemetry . Not keeping it down. Hence it was discontinued. Patient is also intermittently refusing medications. January 8: Reclining in bed. Awake. Tired. Not eating. Often refuses medications. Discovered that patient's nephew is her next of kin, but not the POA Review of systems: Attempted for constitutional, cardiovascular, GI, pulmonary. relevant finding as above Active Medications Acetaminophen (Acetaminophen Tab 325 Mg Tab) 650 mg PO Q6HR PRN PRN Reason: Mild Pain or Fever > 100.5 Last Admin: 01/16/21 06:35 Dose: 650 mg Documented by: Albuterol/Ipratropium (Ipratropium-Albuterol 3 Ml Neb) 3 ml INHALATION RT-Q6H [facility] Last Admin: 01/22/21 12:25 Dose: Not Given Documented by: Amiodarone HCl (Amiodarone 200 Mg Tab) 200 mg PO BID [facility] Stop: 01/27/21 02:00 Last Admin: 01/22/21 09:02 Dose: Not Given Documented by: Amiodarone HCl (Amiodarone 200 Mg Tab) 200 mg PO DAILY [facility] Apixaban (Apixaban 5 Mg Tab) 5 mg PO BID [facility]; Protocol Last Admin: 01/22/21 09:02 Dose: Not Given Documented by: Atorvastatin Calcium (Atorvastatin 40 Mg Tab) 40 mg PO HS@1999 [facility] Last Admin: 01/21/21 20:53 Dose: Not Given Documented by: Bupropion HCl (Bupropion Xl 150 Mg Tab.Er.24h) 150 mg PO DAILY [facility] Last Admin: 01/22/21 09:02 Dose: Not Given Documented by: Furosemide (Furosemide 40 Mg Tab) 40 mg PO BID@0900,1600 [facility] Last Admin: 01/22/21 12:37 Dose: Not Given Documented by: Glucose (Dextrose 4 Gm Chewable) 4 gm PO QID [facility] Last Admin: 01/22/21 12:37 Dose: Not Given Documented by: Daptomycin 800 mg/ Sodium (Chloride) 50 mls @ 100 mls/hr IVPB Q24H [facility]; Protocol Last Admin: 01/22/21 12:37 Dose: Not Given Documented by: Levothyroxine Sodium (Levothyroxine 25 Mcg Tab) 25 mcg PO HS@1999 [facility] Last Admin: 01/21/21 20:53 Dose: Not Given Documented by: Metoprolol Tartrate (Metoprolol Tartrate 12.5 Mg Tab) 12.5 mg PO TID [facility] Last Admin: 01/22/21 09:03 Dose: Not Given Documented by: Midodrine (Midodrine 5 Mg Tab) 5 mg PO AC-TID [facility] Last Admin: 01/22/21 12:37 Dose: Not Given Documented by: Miscellaneous Information (Potassium Replacement Protocol 1 Each Misc) 1 each MISCELLANE DAILY PRN; Protocol PRN Reason: Per Protocol Multivitamins (Multivitamins, Thera 1 Each Tab) 1 each PO HS [facility] Last Admin: 01/21/21 20:53 Dose: Not Given Documented by: Naloxone HCl (Naloxone 0.4 Mg/Ml 1 Ml Vial) 0.2 mg IV Q2M PRN PRN Reason: Opioid Reversal Nystatin (Nystatin 100,000 Unit/Gm Powd 15 Gm) 1 applic TOPICAL BID [facility]; Protocol Last Admin: 01/22/21 09:03 Dose: Not Given Documented by: Oxycodone/Acetaminophen (Oxycodone-Apap 5-325mg 1 Each Tab) 1 each PO Q4HR PRN PRN Reason: Pain Pyridoxine HCl (Pyridoxine 50 Mg Tab) 50 mg PO DAILY [facility] Last Admin: 01/22/21 09:03 Dose: Not Given Documented by: Senna (Sennosides 8.6 Mg Tab) 8.6 mg PO BID [facility] Last Admin: 01/22/21 09:03 Dose: Not Given Documented by: Sertraline HCl (Sertraline 50 Mg Tab) 50 mg PO HS@2000 [facility] Last Admin: 01/21/21 20:53 Dose: Not Given Documented by: Sodium Bicarbonate (Sodium Bicarbonate Tab 650 Mg Tab) 650 mg PO TID [facility] Last Admin: 01/22/21 09:03 Dose: Not Given Documented by: Past medical history to include: Atrial fibrillation, coronary artery disease with stent, congestive heart failure EF 30-35%, COPD, DVT, hypertension, hyperlipidemia, chronic kidney disease, obstructive sleep apnea, hypothyroid, peripheral artery disease, chronic kidney disease stage III, kidney stones, DVT in left leg in 2004,: Abscess with bowel resection, multiple abdominal surgeries for hiatal hernia,. Bladder prolonged hospitalization and prolonged medical-related dependent, with a tracheostomy tube, peripheral arterial disease, colonic diverticulosis, iron deficiency anemia,. Diabetes with peripheral neuropathy Social history: Patient is on disability. Patient smoked for about 10 years and stopped in 2008. No alcohol. Patient lives alone. Does have a scooter and a walker Physical examination: VITAL SIGNS: Afebrile, 16, 121/86, 95% on 2 L GENERAL: reclining in bed, awake, tired EYES: Pupils equal. Conjunctiva normal. NECK: JVD unable to assess; masses not palpable. HEART: Heart sounds irregular; minimal edema. LUNGS: Respiratory rate increased; decreased breath sounds ABDOMEN: Soft, nontender, liver spleen not palpable, no masses palpable, superficial breakdown of skin, and multiple areas, with dressing. DERMATOLOGICAL: Excoriation in the buttock area. Redness in the contiguous - groin area PSYCH: Answering simple questions. Tired EXTREMITIES: Pigmentation of the both lower extremity distally INVESTIGATIONS, reviewed in the clinical context: January 22: Accu-Cheks 73, 68, 75 January 20: Potassium 3.7 BUN 77 creatinine 3.05 January 19: Potassium 3.4 creatinine 3.07 January 18: Potassium 3.8 BUN 71 and creatinine 2.92. Accu-Cheks: , January 16: WBC 2.8 hemoglobin 11.8 platelets 97 potassium 3.2 BUN 76 creatinine 3.21 Chest x-ray [January 16]: Infiltrate versus venous congestion. Stable EEG: Background slowing. 2-D echocardiogram: Moderate concentric LVH. EF 35-40%. Moderate MR. Previous labs: Creatinine 4.41 on January 03 Creatinine 2.75 one November 03 Assessment: -Acute on chronic congestive heart exacerbation EF 35-40% from systolic dysfunction from underlying coronary artery disease. euvolemic IV Lasix 40 mg every 12. Changed over to by mouth Lasix 40 mg twice a day -Persistent atrial flutter fibrillation with ventricular rate: t better controlled Amiodarone. 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 body lotion -COPD in an ex-smoker DuoNeb -Chronic DVT chronically on anticoagulation Eliquis -Hyperlipidemia Lipitor -Chronic kidney disease stage III from diabetic nephropathy and hypertensive nephrosclerosis Follow renal function. Baseline creatinine around 2.7 -Obstructive sleep apnea does not use a device -Hypothyroid Synthroid 25 g -Peripheral arterial disease -Multiple abdominal wall hernia from prior surgery -Colonic diverticulosis, asymptomatic Follow clinically -Obesity BMI 37.2 -Diabetes mellitus type 2 chronically on insulin. With peripheral neuropathy Follow Accu-Cheks -Acute metabolic encephalopathy [multifactorial]: Slow to respond Follow closely -Bacteremia with positive blood cultures for staph aureus, likely source abdominal wall skin. IV daptomycin -Loose stools. Possibly antibiotic associated diarrhea. -Intertriginous alena infection Nystatin powder -Hypoglycemia from decreased oral intake Add glucose tablets -DO NOT RESUSCITATE Patient continues to refuse food. Not taking medications. Did speak to the nurse to have the patient's nephew come in. We will get a psychiatry consultation. Patient prognosis otherwise remains very guarded. Options rather limited.
--- NOTE | 2021-01-22 15:53 | PN ---
PROGRESS NOTE DATE OF SERVICE: 01/22/2021 REASON FOR FOLLOWUP: MRSA bacteremia concerning for endovascular source. INTERVAL HISTORY: The patient is afebrile. The patient is breathing comfortably. The patient denies any chest pain or cough. No abdominal pain. PHYSICAL EXAMINATION: Blood pressure 121/86, pulse of 115, temperature 97.9. He is 95% on 2 L nasal cannula. General description is a middle-aged male lying in bed in no distress. Respiratory system: Unlabored breathing, clear to auscultation anteriorly. Heart S1, S2. Regular rate and rhythm. Abdomen soft, no tenderness. LABS: No new labs have been obtained today. Blood culture repeat has been negative. DIAGNOSTIC IMPRESSION AND PLAN: Patient with MRSA bacteremia concerning for endovascular source in this patient currently refusing his care and has pulled out his PICC line. Will benefit from psych evaluation and possible comfort oriented care. This was discussed with the admitting physician. MMODL / IJN: [id number] /
[2021-01-22 19:06] LABS: Glucose,Whole Blood 155 mg/dL (75-99)
[2021-01-22 19:48] LABS: Glucose,Whole Blood 92 mg/dL (75-99)
[2021-01-22] MEDS: MULTIVITAMINS, THERA 1 EACH TAB PO SCH (20:10)
[2021-01-22] MEDS: SERTRALINE 50 MG TAB PO SCH (20:10)
[2021-01-22] MEDS: ATORVASTATIN 40 MG TAB PO SCH (20:10)
[2021-01-22] MEDS: LEVOTHYROXINE 25 MCG TAB PO SCH (20:10)
[2021-01-23] MEDS: IPRATROPIUM-ALBUTEROL 3 ML NEB INHALATION SCH ×5 (03:41→21:04)
[2021-01-23 06:13] LABS: Glucose,Whole Blood 82 mg/dL (75-99)
[2021-01-23] MEDS: MIDODRINE 5 MG TAB PO SCH ×3 (06:32→17:46)
[2021-01-23] MEDS: METOPROLOL TARTRATE 12.5 MG TAB PO SCH ×3 (09:19→21:29)
[2021-01-23] MEDS: PYRIDOXINE 50 MG TAB PO SCH (09:19)
[2021-01-23] MEDS: APIXABAN 5 MG TAB PO SCH ×2 (09:20→20:19)
[2021-01-23] MEDS: AMIODARONE 200 MG TAB PO SCH ×2 (09:20→20:19)
[2021-01-23] MEDS: SODIUM BICARBONATE TAB 650 MG TAB PO SCH ×3 (09:20→21:29)
[2021-01-23] MEDS: DEXTROSE 4 GM CHEWABLE PO SCH ×5 (09:20→21:29)
[2021-01-23] MEDS: FUROSEMIDE 40 MG TAB PO SCH ×2 (09:20→17:45)
[2021-01-23] MEDS: SENNOSIDES 8.6 MG TAB PO SCH ×2 (09:20→20:19)
[2021-01-23] MEDS: buPROPion XL 150 MG TAB.ER.24H PO SCH (09:20)
[2021-01-23 12:30] LABS: Glucose,Whole Blood 80 mg/dL (75-99)
[2021-01-23] MEDS: NYSTATIN 100,000 UNIT/GM POWD 15 GM TOPICAL SCH ×2 (12:32→20:19)
--- NOTE | 2021-01-23 14:30 | PN ---
PROGRESS NOTE Patient is seen for followup for chronic kidney disease and acute kidney injury. No recent labs available. They were reordered. The patient is complaining of having chills. PHYSICAL EXAMINATION: Blood pressure was 148/63, heart rate of 120 per minute. He is afebrile. Examination of the heart S1, S2. Examination of the lungs, bilateral breath sounds are heard. Abdomen is soft, nontender. Examination of lower extremities shows chronic skin changes. No significant edema noted. COSMETOLOGY INSTRUCTOR exam grossly intact. LABS: No recent labs available. Last creatinine 3.0 on 01/20/2021. ASSESSMENT: 1. Chronic kidney disease NKF stage 4 secondary to nephrosclerosis, cardiorenal syndrome. Baseline creatinine 2.6-2.7 mg/dL. 2. Cardiomyopathy, ejection fraction 40-45% with acute on chronic systolic congestive heart failure. 3. Volume overload, currently improved. 4. Metabolic acidosis associated with acute kidney injury and diarrhea, now improved. 5. Staph aureus, MRSA wound infection and MRSA bacteremia maintained on daptomycin, being followed by ID. PLAN: Check labs today. Encourage increased oral intake. Continue antibiotics. MMODL / IJN: [id number] /
--- NOTE | 2021-01-23 14:43 | P.CN ---
Psychiatric Consult - . Consult date: 01/23/21 Consult:: 01/23/21 14:42 IDENTIFYING DATA: This patient is a 50-year-old, single, unemployed, male who is admitted for altered mental status. HISTORY OF PRESENT ILLNESS: The patient presented to the hospital on 01/11/21 admitted with acute on chronic hypoxic respiratory failure, metabolic encephalopathy, acute on chronic heart failure, right basilar pneumonia, COPD exacerbation, acute kidney injury on chronic kidney disease, and paroxysmal atrial fibrillation. Patient is also status post PCI. Psychiatry has been consulted for evaluation and treatment for worsening depression as patient has been refusing medications and food over the last few days. As per chart review, the patient has been refusing meals and as a result has been also been having very low blood sugars. Furthermore, the patient is noted to be lethargic and at times and uncooperative with answering any questions at staff ask him. Patient was seen at bedside. According the patient was his cousin Christina Licea. Patient was agreeable to speaking with this provider with her present and for her to provide collateral information. The patient is intermittently answering questions, but does eat some ice cream that was presented to him. The patient and his cousin reported that the patient has been having worsening depression over the past year ever since his mother . As per collateral information provided by the patient's cousin, the patient was very close with his mother. Furthermore, the patient has been increasingly isolated at his senior living due to the COVID-19 pandemic. The patient has been increasingly emotional, depressed, and endorsed significant feelings of hopelessness, helplessness, sadness, and at times losing a will to live. The patient reports that he was not eating or taking any medications because he felt like there is no significant point and that he was increasingly sad. He is directable by his cousin to take the medications and to eat. The patient is unable to provide any other significant history. He is agreeable to starting Remeron tonight. PAST PSYCHIATRIC HISTORY: Patient has a history of depression. And has been on Wellbutrin and Zoloft for more than a year as per discussion with the patient and his cousin. Patient denies any previous psychiatric hospitalizations. The patient is prescribed these medications through an outpatient primary care physician. Patient denies any history of suicide attempts in the past. PAST MEDICAL HISTORY: Past Medical History: Atrial Fibrillation, Asthma, Coronary Artery Disease (CAD), Chest Pain / Angina, Heart Failure, COPD, Diabetes Mellitus, Deep Vein Thrombosis (DVT), Hyperlipidemia, Hypertension, Myocardial Infarction (SD), Renal Disease, Sleep Apnea/CPAP/BIPAP, Thyroid Disorder, Vascular Disorder Additional Past Medical History / Comment(s): CHF, tracheobronchitis, CKD stage III, kidney stones, DVT L leg in 2004, KAMRYN without device use, colon abscess with bowel resection, multiple abdominal surgeries for a hiatal hernia that was complicated by prolonged hospitalization and prolonged ventilator dependent respiratory failure requiring a tracheostomy tube insertion, pvd-lower legs discolored/edematous, diverticular disease, chronic iron deficiency anemia, vertigo at times, Last Myocardial Infarction Date:: History of Any Multi-Drug Resistant Organisms: MRSA Date of last positivie culture/infection: 02/01/15 MDRO Source:: Abdomen Past Surgical History: Bowel Resection, Heart Catheterization With Stent, Hernia Repair Additional Past Surgical History / Comment(s): Colonoscopies, heart stents x 4, bowel resection with colostomy and colostomy reversal (removed a foot of pts colon)-2003, hernia repair with skin grafts and 2 fistula repairs (hospitalized for 1 year @[facility])-2010 MRSA 2014 in wounds. Past Anesthesia/Blood Transfusion Reactions: No Reported Reaction Additional Past Anesthesia/Blood Transfusion Reaction / Comment(s): Pt has received blood in past without reaction-2010 Date of Last Stent Placement:: 03/28/2015 Past Psychological History: Depression Smoking Status: Former smoker Past Alcohol Use History: None Reported Past Drug Use History: None Reported ALLERGIES: Adhesive, linezolid, penicillin, cephalosporin CHEMICAL DEPENDENCY HISTORY: Patient denies any substance abuse history. FAMILY PSYCHIATRIC/SUBSTANCE USE HISTORY: As per discussion with the patient's cousin, there is a strong family history of mental illness including schizophrenia in a cousin. She also reports that there has been a strong family history of depression. SOCIAL HISTORY: Patient was staying in a senior living for approximately a year prior to his admission to this hospital. His mother recently in the past year. He was closest with his mother. He has multiple family members whom he is close with including his cousin, and nieces, nephews. MENTAL STATUS EXAM: General Appearance: Patient appears to be stated age is alert, pleasant, intermittently cooperative. Patient appears to have poor hygiene and grooming. Obese body habitus. Poor dentition. Behavior: Patient is calmly lying in bed without any agitated behavior. Bilateral upper extremity tremors evident. Eye contact is intermittent. P stella is appropriately tearful at times when discussing his mother. Speech: Patient's speech is nonspontaneous, minimal, viscous. Mood/Affect: Patient reports their mood is "depressed", affect is congruent and appropriately tearful. Suicidality/Homicidality: Patient denies having any current suicidal or homicidal ideation intent or plan. Perceptions: Patient denies any visual hallucinations and denies any auditory hallucinations Though content/process: There is no evidence of any delusional thought content and thought process is linear and goal-directed. Memory and concentration: Grossly intact for the purposes of this session. Can spell "WORLD" backwards Judgment and insight: Poor IMPRESSIONS: Major depressive disorder, recurrent, moderate to severe Acute metabolic encephalopathy, multifactorial Acute on chronic congestive heart failure Persistent atrial fibrillation Acute kidney injury COPD KAMRYN Bacteremia Peripheral artery disease PLAN: -At this time patient DOES NOT meet criteria for inpatient psychiatric admission. The patient has numerous medical problems are exacerbating his current mental health issues. He is not medically stable for psychiatric unit. He is also not presenting with any imminent risk of harm to self or others. He appears to be redirectable and agreeable to eating and taking medications currently. -Delirium precautions recommended with patient including - avoiding use of narcotics and ELECTRIC REPAIR SUPERVISOR sedatives, limit anticholinergic medications when possible, frequent re-orientation, minimize use of restraints, open window shades during t he day and close them at night -Would recommend the following medication changes/additions: Discontinue Wellbutrin. Start Remeron 15 mg by mouth at bedtime for depression and appetite stimulation. Continue Zoloft 50 mg by mouth at bedtime for depression/anxiety -Cannot leave AMA at this time. Patient will need a petition and certification if attempting to leave AMA. -Will continue to follow along 01/23/21 14:42
[2021-01-23 16:38] LABS: Glucose,Whole Blood 96 mg/dL (75-99)
--- NOTE | 2021-01-23 18:28 | P.PN ---
Progress Note - Text Progress Note Date: 01/23/21 History of presenting complaint: 50-year-old patient, follows with Dr. Bhatt. Chronic stable medical conditions include diabetes with peripheral neuropathy, atrial fibrillation, coronary artery disease with stent, COPD, hypertension, hyperlipidemia, chronic kidney disease, kidney stones,(s) sleep apnea does not use a device, multiple abdominal surgeries for hiatal hernia, also history of tracheostomy, peripheral arterial disease, diverticulosis,. 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 Normally uses a scooter or a walker to get about. Patient has chronic breakdown of superficial skin on the abdominal wall from scratching. Admitted with acute on chronic hypoxic respiratory failure, metabolic encephalopathy, acute and chronic heart failure, possible right basilar pneumonia, COPD exacerbation, acute kidney injury on CK D, paroxysmal atrial fibrillation. Patient has been receiving IV fluids for low blood pressure the same time IV Lasix for fluid overload. Blood cultures positive for staph aureus. On IV daptomycin. Patient DO NOT RESUSCITATE January 2: Patient lethargic. . Eating about 25% with assistance. Able to answer simple questions. Blood pressure running on the lower side. In atrial fibrillation, heart rate in 1 teens January 3: Patient bit more awake today. tired. Needing assistance for feeding. Answering simple questions. Blood pressure remains in the lower side. Atrial fibrillation remains uncontrolled. some loose stools. Discussed with Dr. russell from ID. KENNETH Golden. Redness in the groin area. January 4: Laying in bed. Lethargic. But answering questions. Eating about 25- 50%. With assistance. Atrial flutter fibrillation. Uncontrolled January 5: Laying in bed. Tired. Does make up to answer questions. Swain catheter. Did not eat breakfast today. January 6: reclining up in bed. Slightly more awake. Refusing meals. Not interested in talking. January 7: Reclining in bed. Scratching. Not eating. Slightly lethargic. Patient has been ripping off his telemetry . Not keeping it down. Hence it was discontinued. Patient is also intermittently refusing medications. January 8: Reclining in bed. Awake. Tired. Not eating. Often refuses medications. Discovered that patient's nephew is her next of kin, but not the POA January 9: Laying in bed. Remains delirious. Cousin is visiting. Patient not able to hold a conversation. Not eating. Spoke to lety casey saw operator, to discuss with transition social worker about which family member elevated decision maker. Later transition social worker Santiago called me back that the patient's nephew has been involved in patient's decision-making and care. Does not have any documents for POA. Family is agreeable to the same. Also was discovered that patient's mother last year who was the POA. Patient did feel be coming in tomorrow. It appears family is agreeable to proceed with hospice at this point. Informed patient now visit to hospice has been asked for Review of systems: Attempted for constitutional, cardiovascular, GI, pulmonary. relevant finding as above Active Medications Acetaminophen (Acetaminophen Tab 325 Mg Tab) 650 mg PO Q6HR PRN PRN Reason: Mild Pain or Fever > 100.5 Last Admin: 01/16/21 06:35 Dose: 650 mg Documented by: Albuterol/Ipratropium (Ipratropium-Albuterol 3 Ml Neb) 3 ml INHALATION RT-Q6H [facility] Last Admin: 01/23/21 12:29 Dose: Not Given Documented by: Amiodarone HCl (Amiodarone 200 Mg Tab) 200 mg PO BID [facility] Stop: 01/27/21 02:00 Last Admin: 01/23/21 09:20 Dose: 200 mg Documented by: Amiodarone HCl (Amiodarone 200 Mg Tab) 200 mg PO DAILY [facility] Apixaban (Apixaban 5 Mg Tab) 5 mg PO BID [facility]; Protocol Last Admin: 01/23/21 09:20 Dose: 5 mg Documented by: Atorvastatin Calcium (Atorvastatin 40 Mg Tab) 40 mg PO HS@1999 [facility] Last Admin: 01/22/21 20:10 Dose: 40 mg Documented by: Furosemide (Furosemide 40 Mg Tab) 40 mg PO BID@0900,1600 [facility] Last Admin: 01/23/21 17:45 Dose: Not Given Documented by: Glucose (Dextrose 4 Gm Chewable) 4 gm PO QID [facility] Last Admin: 01/23/21 17:46 Dose: Not Given Documented by: Daptomycin 800 mg/ Sodium (Chloride) 50 mls @ 100 mls/hr IVPB Q24H [facility]; Protocol Last Admin: 01/23/21 17:45 Dose: Not Given Documented by: Levothyroxine Sodium (Levothyroxine 25 Mcg Tab) 25 mcg PO HS@1999 [facility] Last Admin: 01/22/21 20:10 Dose: 25 mcg Documented by: Metoprolol Tartrate (Metoprolol Tartrate 12.5 Mg Tab) 12.5 mg PO TID [facility] Last Admin: 01/23/21 17:46 Dose: Not Given Documented by: Midodrine (Midodrine 5 Mg Tab) 5 mg PO AC-TID [facility] Last Admin: 01/23/21 17:46 Dose: Not Given Documented by: Mirtazapine (Mirtazapine 15 Mg Tab) 15 mg PO [facility] Miscellaneous Information (Potassium Replacement Protocol 1 Each Misc) 1 each MISCELLANE DAILY PRN; Protocol PRN Reason: Per Protocol Multivitamins (Multivitamins, Thera 1 Each Tab) 1 each PO HS [facility] Last Admin: 01/22/21 20:10 Dose: 1 each Documented by: Naloxone HCl (Naloxone 0.4 Mg/Ml 1 Ml Vial) 0.2 mg IV Q2M PRN PRN Reason: Opioid Reversal Nystatin (Nystatin 100,000 Unit/Gm Powd 15 Gm) 1 applic TOPICAL BID [facility]; P rotocol Last Admin: 01/23/21 12:32 Dose: Not Given Documented by: Oxycodone/Acetaminophen (Oxycodone-Apap 5-325mg 1 Each Tab) 1 each PO Q4HR PRN PRN Reason: Pain Pyridoxine HCl (Pyridoxine 50 Mg Tab) 50 mg PO DAILY [facility] Last Admin: 01/23/21 09:19 Dose: 50 mg Documented by: Senna (Sennosides 8.6 Mg Tab) 8.6 mg PO BID [facility] Last Admin: 01/23/21 09:20 Dose: Not Given Documented by: Sertraline HCl (Sertraline 50 Mg Tab) 50 mg PO HS@1999 [facility] Last Admin: 01/22/21 20:10 Dose: 50 mg Documented by: Sodium Bicarbonate (Sodium Bicarbonate Tab 650 Mg Tab) 650 mg PO TID [facility] Last Admin: 01/23/21 17:46 Dose: Not Given Documented by: Past medical history to include: Atrial fibrillation, coronary artery disease with stent, congestive heart failure EF 30-35%, COPD, DVT, hypertension, hyperlipidemia, chronic kidney disease, obstructive sleep apnea, hypothyroid, peripheral artery disease, chronic kidney disease stage III, kidney stones, DVT in left leg in 2004,: Abscess with bowel resection, multiple abdominal surgeries for hiatal hernia,. Bladder prolonged hospitalization and prolonged medical-related dependent, with a tracheostomy tube, peripheral arterial disease, colonic diverticulosis, iron deficiency anemia,. Diabetes with peripheral neuropathy Social history: Patient is on disability. Patient smoked for about 10 years and stopped in 2008. No alcohol. Patient lives alone. Does have a scooter and a walker Physical examination: VITAL SIGNS: 97.6, 116, 16, 121/86, 95% on 2 L GENERAL: reclining in bed, awake, delirious EYES: Pupils equal. Conjunctiva normal. NECK: JVD unable to assess; masses not palpable. HEART: Heart sounds irregular; minimal edema. LUNGS: Respiratory rate increased; decreased breath sounds ABDOMEN: Soft, nontender, liver spleen not palpable, no masses palpable, superficial breakdown of skin, and multiple areas, with dressing. DERMATOLOGICAL: Excoriation in the buttock area. Redness in the contiguous - groin area PSYCH: May answer 1 or 2 word questions sometimes. Delirious. EXTREMITIES: Pigmentation of the both lower extremity distally INVESTIGATIONS, reviewed in the clinical context: January 22: Accu-Cheks 73, 68, 75 January 20: Potassium 3.7 BUN 77 creatinine 3.05 January 19: Potassium 3.4 creatinine 3.07 January 18: Potassium 3.8 BUN 71 and creatinine 2.92. Accu-Cheks: 72, 74 January 16: WBC 2.8 hemoglobin 11.8 platelets 97 potassium 3.2 BUN 76 creatinine 3.21 Chest x-ray [January 16]: Infiltrate versus venous congestion. Stable EEG: Background slowing. 2-D echocardiogram: Moderate concentric LVH. EF 35-40%. Moderate MR. Previous labs: Creatinine 4.41 on January 03 Creatinine 2.75 one November 03 Assessment: -Acute on chronic congestive heart exacerbation EF 35-40% from systolic dysfunction from underlying coronary artery disease. euvolemic IV Lasix 40 mg every 12. Changed over to by mouth Lasix 40 mg twice a day -Persistent atrial flutter fibrillation with ventricular rate: Amiodarone. 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 body lotion -COPD in an ex-smoker DuoNeb -Chronic DVT chronically on anticoagulation Eliquis -Hyperlipidemia Lipitor -Chronic kidney disease stage III from diabetic nephropathy and hypertensive nephrosclerosis Follow renal function. Baseline creatinine around 2.7 -Obstructive sleep apnea does not use a device -Hypothyroid Synthroid 25 g -Peripheral arterial disease -Multiple abdominal wall hernia from prior surgery -Colonic diverticulosis, asymptomatic Follow clinically -Obesity BMI 37.2 -Diabetes mellitus type 2 chronically on insulin. With peripheral neuropathy Follow Accu-Cheks -Acute metabolic encephalopathy [multifactorial]: Slow to respond Follow closely -Bacteremia with positive blood cultures for staph aureus, likely source abdominal wall skin. IV daptomycin -Loose stools. Possibly antibiotic associated diarrhea. -Intertriginous alena infection Nystatin powder -Hypoglycemia from decreased oral intake Add glucose tablets -DO NOT RESUSCITATE After discussion with casey saw operatorsupplier development manager worker and patient's cousin awaiting for the next few to come in tomorrow. Meeting is scheduled for 12:30 PM. Hospice is the best route for the patient to keep her more comfortable. Have talked with different consultants the alternate treatments for the same. There is no hope for patient to have any minimal recovery total time spent today about 50 minutes with over 25 minutes of discussion.
[2021-01-23] MEDS: MIRTAZAPINE 15 MG TAB PO SCH (20:19)
[2021-01-23] MEDS: MULTIVITAMINS, THERA 1 EACH TAB PO SCH (20:19)
[2021-01-23] MEDS: SERTRALINE 50 MG TAB PO SCH (20:19)
[2021-01-23] MEDS: ATORVASTATIN 40 MG TAB PO SCH (20:19)
[2021-01-23] MEDS: LEVOTHYROXINE 25 MCG TAB PO SCH (20:19)
[2021-01-23 20:51] LABS: Glucose,Whole Blood 95 mg/dL (75-99)
[2021-01-24] MEDS: IPRATROPIUM-ALBUTEROL 3 ML NEB INHALATION SCH ×4 (03:24→20:12)
[2021-01-24] MEDS: MIDODRINE 5 MG TAB PO SCH ×3 (06:31→17:41)
[2021-01-24 06:39] LABS: Glucose,Whole Blood 61 mg/dL (75-99)
[2021-01-24] MEDS ORDERED: GLUCAGON 1 MG/ML VIAL ONE (06:46)
[2021-01-24] MEDS: DEXTROSE 4 GM CHEWABLE PO SCH ×5 (06:58→20:03)
[2021-01-24 07:35] LABS: Glucose,Whole Blood 75 mg/dL (75-99)
--- NOTE | 2021-01-24 08:12 | PN ---
PROGRESS NOTE DATE OF SERVICE: 01/23/2021 REASON FOR FOLLOWUP: MRSA bacteremia concern for endovascular source. INTERVAL HISTORY: The patient is afebrile. The patient has been breathing comfortably. The patient denies having any chest pain or cough. No vomiting or diarrhea has been reported. PHYSICAL EXAMINATION: Blood pressure 92/76, pulse of 120, temperature 97.1. He is 93% on room air. General description is a middle-aged male lying in bed in no distress. Respiratory system: Unlabored breathing, decreased breath sounds. No wheeze. Heart S1, S2. Regular rate and rhythm. Abdomen soft, no tenderness. Examination showed multiple scratch hitchcock. LABS: Repeat blood culture has been negative. DIAGNOSTIC IMPRESSION AND PLAN: Patient with MRSA bacteremia, concern for possible endovascular source in this patient who did have extensive workup. No other obvious focus. The patient is covered with daptomycin. However, the patient has been pulling out his PICC line and overall poor prognosis, hospice may be better option. Continue supportive care. MMODL / IJN: [id number] /
[2021-01-24] MEDS: SENNOSIDES 8.6 MG TAB PO SCH ×2 (09:45→20:02)
[2021-01-24] MEDS: FUROSEMIDE 40 MG TAB PO SCH ×2 (09:46→17:40)
[2021-01-24] MEDS: METOPROLOL TARTRATE 12.5 MG TAB PO SCH ×3 (09:46→20:03)
[2021-01-24] MEDS: PYRIDOXINE 50 MG TAB PO SCH (09:46)
[2021-01-24] MEDS: APIXABAN 5 MG TAB PO SCH ×2 (09:46→20:02)
[2021-01-24] MEDS: AMIODARONE 200 MG TAB PO SCH ×2 (09:46→20:02)
[2021-01-24] MEDS: SODIUM BICARBONATE TAB 650 MG TAB PO SCH ×3 (09:46→20:03)
[2021-01-24] MEDS: NYSTATIN 100,000 UNIT/GM POWD 15 GM TOPICAL SCH ×2 (09:46→20:02)
[2021-01-24 11:29] LABS: Glucose,Whole Blood 70 mg/dL (75-99)
[2021-01-24] MEDS: DEXTROSE 5%-0.45% NACL 1,000 ML IV SCH (13:05)
--- NOTE | 2021-01-24 14:01 | P.PN ---
Progress Note - Text Progress Note Date: 01/24/21 Interval History: Patient was seen resting in bed. The patient is refusing to participate in the psychiatric evaluation. He does not answer any questions appropriately and often just stating "no" and turning away from this provider. The patient has been noted by staff to not be adherent with his medications or be eating or drinking. Mental Status Exam: General Appearance: Patient appears to be stated age is alert and uncooperative. Patient appears to have poor hygiene and grooming. Obese body habitus. Poor dentition. Behavior: Patient is calmly lying in bed without any agitated behavior. Poor eye contact. Obstinate. Speech: Patient's speech is nonspontaneous, minimal, slow to respond. Mood/Affect: Patient does not present in mood. Affect is obstinate and uncooperative. Suicidality/Homicidality: Unable to assess Perceptions: Unable to assess Though content/process: Unable to assess Memory and concentration: Unable to assess Judgment and insight: Very Poor Vital Signs Temp 98.1 F 01/24/21 09:41 Pulse 96 01/24/21 09:41 Resp 20 01/24/21 09:41 BP 126/86 01/24/21 09:41 Pulse Ox 100 01/24/21 09:41 Intake & Output 01/23/21 01/24/21 01/24/21 18:59 06:59 18:59 Intake Total 0 Output Total 1 850 Balance -1 -850 0 Weight 116.5 kg 117.5 kg Intake: Oral 0 Output: Urine 850 Uretheral (Swain) 200 Stool 1 Other: Voiding Method Indwelling Catheter Indwelling Catheter Laboratory Results - Last 24 Hours 01/23/21 01/23/21 01/24/21 16:34 20:49 06:37 POC Glucose (mg/dL) 96 95 61 L POC Glu Gas Controller ID Jessy Fung Isabelle Flory, Isabelle 01/24/21 01/24/21 07:17 11:27 POC Glucose (mg/dL) 75 70 L POC Glu Gas Controller ID Venice Daugherty Tammy Assessment Major depressive disorder, recurrent, moderate to severe Acute metabolic encephalopathy, multifactorial Acute on chronic congestive heart failure Persistent atrial fibrillation Acute kidney injury COPD KAMRYN Bacteremia Peripheral artery disease Plan: -At this time patient DOES NOT meet criteria for inpatient psychiatric admission. The patient has numerous medical problems are exacerbating his current mental health issues. He is not medically stable for psychiatric unit. Prognosis for improvement in mentation is guarded. -Recommend family discussion to assign PoA for the patient. Agree with hospice placement. -Delirium precautions recommended with patient including - avoiding use of narcotics and CONTACT CENTRE SUPERVISOR sedatives, limit anticholinergic medications when possible, frequent re-orientation, minimize use of restraints, open window shades during the day and close them at night -Would recommend the following medication changes/additions: Continue Remeron 15 mg by mouth at bedtime for depression and appetite stimulation. Continue Zoloft 50 mg by mouth at bedtime for depression/anxiety -Psychiatry will sign off at this point. Please contact us with any questions or reconsult us if necessary. Thank you for letting us participate in this patient's care.
[2021-01-24 16:24] LABS: Glucose,Whole Blood 66 mg/dL (75-99)
[2021-01-24 16:47] LABS: Glucose,Whole Blood 71 mg/dL (75-99)
--- NOTE | 2021-01-24 19:01 | PN ---
PROGRESS NOTE Patient is seen for followup for chronic kidney disease and acute kidney injury. Patient is currently being treated for lower extremity cellulitis and MRSA bacteremia. He remains in bed. Denies any significant complaints today. Blood pressure 126/86, heart rate 96 per minute, he is afebrile. O2 sats 100% on 2 L nasal cannula. On exam on examination, patient is comfortable. Breath sounds are heard bilaterally. Abdomen is soft, nontender. Examination of lower extremities shows chronic skin changes. No edema noted. Chronic skin pigmentation noted. LABS: Not available. ASSESSMENT: 1. Chronic kidney disease NKF stage 4 secondary to nephrosclerosis, cardiorenal syndrome. Baseline creatinine 2.6-2.7. 2. Acute kidney injury associated with underlying infection cellulitis. No recent labs available. Plans for possible hospice care. 3. Cardiomyopathy, ejection fraction 40-45% with acute on chronic systolic congestive heart failure. 4. MRSA bacteremia maintained on daptomycin, being followed by ID. Repeat blood cultures are negative. 5. Abdominal wound infection with cultures growing MRSA and Rae. PLAN: Continue current medications. Awaiting final decision regarding hospice care. Overall prognosis is guarded. Patient will not be an ideal candidate for long-term renal replacement therapy if needed down the road. MMODL / IJN: [id number] /
--- NOTE | 2021-01-24 19:33 | P.PN ---
Progress Note - Text Progress Note Date: 01/24/21 History of presenting complaint: 50-year-old patient, follows with Dr. Bhatt. Chronic stable medical conditions include diabetes with peripheral neuropathy, atrial fibrillation, coronary artery disease with stent, COPD, hypertension, hyperlipidemia, chronic kidney disease, kidney stones,(s) sleep apnea does not use a device, multiple abdominal surgeries for hiatal hernia, also history of tracheostomy, peripheral arterial disease, diverticulosis,. 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 Normally uses a scooter or a walker to get about. Patient has chronic breakdown of superficial skin on the abdominal wall from scratching. Admitted with acute on chronic hypoxic respiratory failure, metabolic encephalopathy, acute and chronic heart failure, possible right basilar pneumonia, COPD exacerbation, acute kidney injury on CK D, paroxysmal atrial fibrillation. Patient has been receiving IV fluids for low blood pressure the same time IV Lasix for fluid overload. Blood cultures positive for staph aureus. On IV daptomycin. Patient DO NOT RESUSCITATE January 2: Patient lethargic. . Eating about 25% with assistance. Able to answer simple questions. Blood pressure running on the lower side. In atrial fibrillation, heart rate in 1 teens January 3: Patient bit more awake today. tired. Needing assistance for feeding. Answering simple questions. Blood pressure remains in the lower side. Atrial fibrillation remains uncontrolled. some loose stools. Discussed with Dr. russell from ID. KENNETH Golden. Redness in the groin area. January 4: Laying in bed. Lethargic. But answering questions. Eating about 25- 50%. With assistance. Atrial flutter fibrillation. Uncontrolled January 5: Laying in bed. Tired. Does make up to answer questions. Swain catheter. Did not eat breakfast today. January 6: reclining up in bed. Slightly more awake. Refusing meals. Not interested in talking. January 7: Reclining in bed. Scratching. Not eating. Slightly lethargic. Patient has been ripping off his telemetry . Not keeping it down. Hence it was discontinued. Patient is also intermittently refusing medications. January 8: Reclining in bed. Awake. Tired. Not eating. Often refuses medications. Discovered that patient's nephew is her next of kin, but not the POA January 9: Laying in bed. Remains delirious. Cousin is visiting. Patient not able to hold a conversation. Not eating. Spoke to lety correctional casework specialist, to discuss with social services aide about which family member elevated decision maker. Later social services aide Santiago called me back that the patient's nephew has been involved in patient's decision-making and care. Does not have any documents for POA. Family is agreeable to the same. Also was discovered that patient's mother last year who was the POA. Patient did feel be coming in tomorrow. It appears family is agreeable to proceed with hospice at this point. Informed patient now visit to hospice has been asked for January 24: Lethargic. In bed. Family was supposed to come in to have a discussion about hospice. Nobody came in. Spoke to social services aide Santiago. Unable to reach them. Nursing staff is to reach out. Patient has been taking his medications. Review of systems: Unable to obtain Active Medications Acetaminophen (Acetaminophen Tab 325 Mg Tab) 650 mg PO Q6HR PRN PRN Reason: Mild Pain or Fever > 100.5 Last Admin: 01/16/21 06:35 Dose: 650 mg Documented by: Albuterol/Ipratropium (Ipratropium-Albuterol 3 Ml Neb) 3 ml INHALATION RT-Q6H [facility] Last Admin: 01/24/21 08:29 Dose: Not Given Documented by: Amiodarone HCl (Amiodarone 200 Mg Tab) 200 mg PO BID [facility] Stop: 01/27/21 02:00 Last Admin: 01/24/21 09:46 Dose: Not Given Documented by: Amiodarone HCl (Amiodarone 200 Mg Tab) 200 mg PO DAILY [facility] Apixaban (Apixaban 5 Mg Tab) 5 mg PO BID [facility]; Protocol Last Admin: 01/24/21 09:46 Dose: Not Given Documented by: Atorvastatin Calcium (Atorvastatin 40 Mg Tab) 40 mg PO HS@2000 [facility] Last Admin: 01/23/21 20:19 Dose: 40 mg Documented by: Furosemide (Furosemide 40 Mg Tab) 40 mg PO BID@0900,1600 [facility] Last Admin: 01/24/21 17:40 Dose: Not Given Documented by: Glucose (Dextrose 4 Gm Chewable) 4 gm PO QID [facility] Last Admin: 01/24/21 17:41 Dose: Not Given Documented by: Daptomycin 800 mg/ Sodium (Chloride) 50 mls @ 100 mls/hr IVPB Q24H [facility]; Protocol Last Admin: 01/24/21 16:15 Dose: Not Given Documented by: Dextrose/Sodium Chloride (Dextrose 5%-1/2ns Iv Soln) 1,000 mls @ 75 mls/hr IV .[id number] [facility] Last Admin: 01/24/21 13:05 Dose: Not Given Documented by: Levothyroxine Sodium (Levothyroxine 25 Mcg Tab) 25 mcg PO HS@1999 [facility] Last Admin: 01/23/21 20:19 Dose: 25 mcg Documented by: Metoprolol Tartrate (Metoprolol Tartrate 12.5 Mg Tab) 12.5 mg PO TID [facility] Last Admin: 01/24/21 17:40 Dose: Not Given Documented by: Midodrine (Midodrine 5 Mg Tab) 5 mg PO AC-TID [facility] Last Admin: 01/24/21 17:41 Dose: Not Given Documented by: Mirtazapine (Mirtazapine 15 Mg Tab) 15 mg PO [facility] Last Admin: 01/23/21 20:19 Dose: 15 mg Documented by: Miscellaneous Information (Potassium Replacement Protocol 1 Each Misc) 1 each MISCELLANE DAILY PRN; Protocol PRN Reason: Per Protocol Multivitamins (Multivitamins, Thera 1 Each Tab) 1 each PO HS [facility] Last Admin: 01/23/21 20:19 Dose: 1 each Documented by: Naloxone HCl (Naloxone 0.4 Mg/Ml 1 Ml Vial) 0.2 mg IV Q2M PRN PRN Reason: Opioid Reversal Nystatin (Nystatin 100,000 Unit/Gm Powd 15 Gm) 1 applic TOPICAL BID [facility]; Protocol Last Admin: 01/24/21 09:46 Dose: Not Given Documented by: Oxycodone/Acetaminophen (Oxycodone-Apap 5-325mg 1 Each Tab) 1 each PO Q4HR PRN PRN Reason: Pain Pyridoxine HCl (Pyridoxine 50 Mg Tab) 50 mg PO DAILY [facility] Last Admin: 01/24/21 09:46 Dose: Not Given Documented by: Senna (Sennosides 8.6 Mg Tab) 8.6 mg PO BID [facility] Last Admin: 01/24/21 09:45 Dose: Not Given Documented by: Sertraline HCl (Sertraline 50 Mg Tab) 50 mg PO HS@1999 [facility] Last Admin: 08/09/21 20:19 Dose: 50 mg Documented by: Sodium Bicarbonate (Sodium Bicarbonate Tab 650 Mg Tab) 650 mg PO TID [facility] Last Admin: 01/24/21 17:40 Dose: Not Given Documented by: Past medical history to include: Atrial fibrillation, coronary artery disease with stent, congestive heart failure EF 30-35%, COPD, DVT, hypertension, hyperlipidemia, chronic kidney disease, obstructive sleep apnea, hypothyroid, peripheral artery disease, chronic kidney disease stage III, kidney stones, DVT in left leg in 2004,: Abscess with bowel resection, multiple abdominal surgeries for hiatal hernia,. Bladder prolonged hospitalization and prolonged medical-related dependent, with a tracheostomy tube, peripheral arterial disease, colonic diverticulosis, iron deficiency anemia,. Diabetes with peripheral neuropathy Social history: Patient is on disability. Patient smoked for about 10 years and stopped in 2008. No alcohol. Patient lives alone. Does have a scooter and a walker Physical examination: VITAL SIGNS: 98.1, 96, 20, 126/86, 100% on 2 L GENERAL: reclining in bed, lethargic EYES: Pupils equal. Conjunctiva normal. NECK: JVD unable to assess; masses not palpable. HEART: Heart sounds irregular; minimal edema. LUNGS: Respiratory rate increased; decreased breath sounds ABDOMEN: Soft, nontender, liver spleen not palpable, no masses palpable, superficial breakdown of skin, and multiple areas, with dressing. DERMATOLOGICAL: Excoriation in the buttock area. Redness in the contiguous - groin area PSYCH: Kanchan attempting to answer questions. EXTREMITIES: Pigmentation of the both lower extremity distally INVESTIGATIONS, reviewed in the clinical context: January 22: Accu-Cheks 73, 68, 75 January 20: Potassium 3.7 BUN 77 creatinine 3.05 January 19: Potassium 3.4 creatinine 3.07 January 18: Potassium 3.8 BUN 71 and creatinine 2.92. Accu-Cheks: 72, 74 January 16: WBC 2.8 hemoglobin 11.8 platelets 97 potassium 3.2 BUN 76 creatinine 3.21 Chest x-ray [January 16]: Infiltrate versus venous congestion. Stable EEG: Background slowing. 2-D echocardiogram: Moderate concentric LVH. EF 35-40%. Moderate MR. Previous labs: Creatinine 4.41 on January 03 Creatinine 2.75 one November 03 Assessment: -Acute on chronic congestive heart exacerbation EF 35-40% from systolic dysfunction from underlying coronary artery disease. euvolemic IV Lasix 40 mg every 12. Changed over to by mouth Lasix 40 mg twice a day -Persistent atrial flutter fibrillation with ventricular rate: Amiodarone. 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 body lotion -COPD in an ex-smoker DuoNeb -Chronic DVT chronically on anticoagulation Eliquis -Hyperlipidemia Lipitor -Chronic kidney disease stage 4 from diabetic nephropathy and hypertensive nephrosclerosis Follow renal function. Baseline creatinine around 2.7 -Obstructive sleep apnea does not use a device -Hypothyroid Synthroid 25 g -Peripheral arterial disease -Multiple abdominal wall hernia from prior surgery -Colonic diverticulosis, asymptomatic Follow clinically -Obesity BMI 37.2 -Diabetes mellitus type 2 chronically on insulin. With peripheral neuropathy Follow Accu-Cheks -Acute metabolic encephalopathy [multifactorial]: Slow to respond Follow closely -Bacteremia with positive blood cultures for staph aureus, likely source abdominal wall skin. IV daptomycin -Loose stools. Possibly antibiotic associated diarrhea. -Intertriginous alena infection Nystatin powder -Hypoglycemia from decreased oral intake Add glucose tablets -DO NOT RESUSCITATE Patient is continuing to fail. Going down hill. Discussed with ID, psychiatry and previously pulmonary. They'll agree with hospice. Awaiting family to come in. Prognosis very poor.
[2021-01-24] MEDS: LEVOTHYROXINE 25 MCG TAB PO SCH (20:02)
[2021-01-24] MEDS: MULTIVITAMINS, THERA 1 EACH TAB PO SCH (20:02)
[2021-01-24] MEDS: MIRTAZAPINE 15 MG TAB PO SCH (20:02)
[2021-01-24] MEDS: SERTRALINE 50 MG TAB PO SCH (20:02)
[2021-01-24] MEDS: ATORVASTATIN 40 MG TAB PO SCH (20:02)
[2021-01-24 20:35] LABS: Glucose,Whole Blood 83 mg/dL (75-99)
--- NOTE | 2021-01-24 22:30 | PN ---
PROGRESS NOTE DATE OF SERVICE: 01/24/2021 REASON FOR FOLLOWUP: MRSA bacteremia. INTERVAL HISTORY: Patient is afebrile. The patient is currently breathing comfortably on room air. The patient is hemodynamically stable. Not on pressor support. No vomiting, diarrhea has been reported. The patient himself was unable to provide reliable history. PHYSICAL EXAMINATION: Blood pressure 138/92 with a pulse of 101, temperature 97.8. He is 98% on 1 L nasal cannula. General description is a middle-aged male lying in bed in no distress. Respiratory system: Unlabored breathing, clear to auscultation anteriorly. Heart S1, S2. Regular rate and rhythm. ABDOMEN: Soft. Abdominal wound decreased in size. No surrounding redness or drainage. Lower extremity with chronic swelling. No redness. LABS: No new labs have been obtained today. DIAGNOSTIC IMPRESSION AND PLAN: Patient with MRSA bacteremia, concern for possible endovascular source. Repeat blood culture has been negative. Patient is covered with daptomycin to continue for now. Possible plan for hospice may be appropriate. This was discussed with the admitting physician. Continue supportive care. MMODL / IJN: [id number] /
[2021-01-25] MEDS: DEXTROSE 5%-0.45% NACL 1,000 ML IV SCH ×2 (00:39→15:45)
[2021-01-25 01:02] VITALS: TEMP 97.9
[2021-01-25] MEDS: IPRATROPIUM-ALBUTEROL 3 ML NEB INHALATION SCH ×3 (01:20→11:18)
[2021-01-25] MEDS: MIDODRINE 5 MG TAB PO SCH ×2 (06:14→15:45)
[2021-01-25 06:18] LABS: Glucose,Whole Blood 75 mg/dL (75-99)
[2021-01-25 11:01] VITALS: BP 95/67; PULSE 126; RESP 18
[2021-01-25 11:16] VITALS: BMI 34.0
[2021-01-25 11:30] LABS: Glucose,Whole Blood 66 mg/dL (75-99)
--- NOTE | 2021-01-25 13:09 | P.DS ---
Providers Date of admission: 01/12/21 11:57 Expected date of discharge: 01/25/21 Attending physician: aVmshi Barrera Consults: 01/11/21 17:45 Consult Physician Routine Consulting Provider: Nicolas Barnes Consult Reason/Comments: AoC HFpEF, AFib with RVR Do you want consulting provider notified?: Yes Consult Physician Routine Consulting Provider: Eric Corona Consult Reason/Comments: COPD exacerbation/RLL PNA Do you want consulting provider notified?: Yes Consult Physician Routine Consulting Provider: Samaria Szymanski Consult Reason/Comments: RAYSA on CKD Do you want consulting provider notified?: Yes 01/12/21 10:26 Consult Physician Routine Consulting Provider: Hamlet Felix Consult Reason/Comments: Ventricle enlargement on CTH with AMS w declining baseline mentation Do you want consulting provider notified?: Yes 01/15/21 12:29 Consult Physician Routine Consulting Provider: Alicja Short Consult Reason/Comments: Possible VRSA Do you want consulting provider notified?: Yes, Notify in am 01/22/21 14:01 Consult Physician Routine Consulting Provider: Jonh Acosta Consult Reason/Comments: Refusing medications food Do you want consulting provider notified?: Yes Primary care physician: Eleazar [facility] Course: History of presenting complaint: 50-year-old patient, follows with Dr. Bhatt. Chronic stable medical conditions include diabetes with peripheral neuropathy, atrial fibrillation, coronary artery disease with stent, COPD, hypertension, hyperlipidemia, chronic kidney disease, kidney stones,(s) sleep apnea does not use a device, multiple abdominal surgeries for hiatal hernia, also history of tracheostomy, peripheral arterial disease, diverticulosis,. 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 Normally uses a scooter or a walker to get about. Patient has chronic breakdown of superficial skin on the abdominal wall from scratching. Admitted with acute on chronic hypoxic respiratory failure, metabolic encephalopathy, acute and chronic heart failure, possible right basilar pneumonia, COPD exacerbation, acute kidney injury on CK D, paroxysmal atrial fibrillation. Patient has been receiving IV fluids for low blood pressure the same time IV Lasix for fluid overload. Blood cultures positive for staph aureus. On IV daptomycin. Patient DO NOT RESUSCITATE January 16: Patient lethargic. . Eating about 25% with assistance. Able to answer simple questions. Blood pressure running on the lower side. In atrial fibrillation, heart rate in 1 teens January 3: Patient bit more awake today. tired. Needing assistance for feeding. Answering simple questions. Blood pressure remains in the lower side. Atrial fibrillation remains uncontrolled. some loose stools. Discussed with Dr. russell from ID. KENNETH Golden. Redness in the groin area. January 18: Laying in bed. Lethargic. But answering questions. Eating about 25- 50%. With assistance. Atrial flutter fibrillation. Uncontrolled January 19: Laying in bed. Tired. Does make up to answer questions. Swain catheter. Did not eat breakfast today. January 20: reclining up in bed. Slightly more awake. Refusing meals. Not interested in talking. January 21: Reclining in bed. Scratching. Not eating. Slightly lethargic. Patient has been ripping off his telemetry . Not keeping it down. Hence it was discontinued. Patient is also intermittently refusing medications. January 22: Reclining in bed. Awake. Tired. Not eating. Often refuses medications. Discovered that patient's nephew is her next of kin, but not the POA January 23: Laying in bed. Remains delirious. Cousin is visiting. Patient not able to hold a conversation. Not eating. Spoke to lety manager rn case, to discuss with social work lecturer about which family member elevated decision maker. Later social work lecturer Ryan called me back that the patient's nephew has been involved in patient's decision-making and care. Does not have any documents for POA. Family is agreeable to the same. Also was discovered that patient's mother last year who was the POA. Patient did feel be coming in tomorrow. It appears family is agreeable to proceed with hospice at this point. Informed patient now visit to hospice has been asked for January 24: Lethargic. In bed. Family was supposed to come in to have a discussion about hospice. Nobody came in. Spoke to social work lecturer Ryan. Unable to reach them. Nursing staff is to reach out. Patient has been taking his medications. January 25: Sitting up in bed. Answers some questions. Not interested in eating. Patient nephew Fer Zepeda is here. Discussed with him. Did inform them agreeable to hospice. Spoke to social work lecturer Ryan. Patient to return to [facility] and made hospice there. Patient continues to refuse food and medication. Discharge planning more than 35 minutes Consultants: Dr. Short from ID Dr. Szymanski in partners from nephrology Dr. Bryant from psychiatry Dr. Adams in partners from pulmonary [facility]iology [facility] Past medical history to include: Atrial fibrillation, coronary artery disease with stent, congestive heart failure EF 30-35%, COPD, DVT, hypertension, hyperlipidemia, chronic kidney disease, obstructive sleep apnea, hypothyroid, peripheral artery disease, chronic kidney disease stage III, kidney stones, DVT in left leg in 2004,: Abscess with bowel resection, multiple abdominal surgeries for hiatal hernia,. Bladder prolonged hospitalization and prolonged medical-related dependent, with a tracheostomy tube, peripheral arterial disease, colonic diverticulosis, iron deficiency anemia,. Diabetes with peripheral neuropathy Social history: Patient is on disability. Patient smoked for about 10 years and stopped in 2008. No alcohol. Patient lives alone. Does have a scooter and a walker Physical examination: VITAL SIGNS: 97.9, 110, 18, 95/67, 95% on 2 L GENERAL: reclining in bed, ; awake EYES: Pupils equal. Conjunctiva normal. NECK: JVD unable to assess; masses not palpable. HEART: Heart sounds irregular; minimal edema. LUNGS: Respiratory rate increased; decreased breath sounds ABDOMEN: Soft, nontender, liver spleen not palpable, no masses palpable, s uperficial breakdown of skin, and multiple areas, with dressing. DERMATOLOGICAL: Excoriation in the buttock area. Redness in the contiguous - groin area PSYCH: Answering some questions EXTREMITIES: Pigmentation of the both lower extremity distally INVESTIGATIONS, reviewed in the clinical context: January 22: Accu-Cheks 73, 68, 75 January 20: Potassium 3.7 BUN 77 creatinine 3.05 January 19: Potassium 3.4 creatinine 3.07 January 18: Potassium 3.8 BUN 71 and creatinine 2.92. Accu-Cheks: , January 16: WBC 2.8 hemoglobin 11.8 platelets 97 potassium 3.2 BUN 76 creatinine 3.21 Chest x-ray [January 16]: Infiltrate versus venous congestion. Stable EEG: Background slowing. 2-D echocardiogram: Moderate concentric LVH. EF 35-40%. Moderate MR. Previous labs: Creatinine 4.41 on January 03 Creatinine 2.75 one November 03 Assessment: -Acute on chronic congestive heart exacerbation EF 35-40% from systolic dysfunction from underlying coronary artery disease. euvolemic IV Lasix 40 mg every 12. Changed over to by mouth Lasix 40 mg twice a day -Persistent atrial flutter fibrillation with ventricular rate: Amiodarone. 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 body lotion -COPD in an ex-smoker DuoNeb -Chronic DVT chronically on anticoagulation Eliquis -Hyperlipidemia Lipitor -Chronic kidney disease stage 4 from diabetic nephropathy and hypertensive nephrosclerosis Follow renal function. Baseline creatinine around 2.7 -Obstructive sleep apnea does not use a device -Hypothyroid Synthroid 25 g -Peripheral arterial disease -Multiple abdominal wall hernia from prior surgery -Colonic diverticulosis, asymptomatic Follow clinically -Obesity BMI 37.2 -Diabetes mellitus type 2 chronically on insulin. With peripheral neuropathy Follow Accu-Cheks -Acute metabolic encephalopathy [multifactorial]: Slow to respond Follow closely -Bacteremia with positive blood cultures for staph aureus, likely source abdominal wall skin. IV daptomycin -Loose stools. Possibly antibiotic associated diarrhea. -Intertriginous alena infection Nystatin powder -Hypoglycemia from decreased oral intake Add glucose tablets -DO NOT RESUSCITATE Disposition: ECF Advanced care planning: Discussed with patient nephew, Fer Zepeda. He has been pretty much taking patient's decision as lost to 3 months. He and his brother and aunt are all in agreement about proceeding proceeding to hospice. I did inform that has spoken to pulmonary, psychiatry, nephrology and they suggested that this is the best route for the patient. Patient not been eating and refusing treatment. And his [id number] prior to this been very poor. Given the best interest of the patient the decision is acceptable by all the physicians on the case and all the family members. They do not have any official documents for POA. Patient be discharged to ECF with hospice. Time spent for this about 20 minutes Plan - Discharge Summary Discharge Rx Participant: No New Discharge Prescriptions: No Action Apixaban [Eliquis] 5 mg PO BID #60 tab buPROPion XL [Wellbutrin XL] 150 mg PO DAILY Metoprolol Tartrate [Lopressor] 12.5 mg PO BID@0700,1900 Sennosides [Senokot] 17.2 mg PO BID Acetaminophen [Tylenol 8 Hour] 650 mg PO Q6H PRN PRN Reason: Pain Ipratropium-Albuterol Nebulize [Duoneb 0.5 mg-3 mg/3 ml Soln] 3 ml INHALATION RT-Q6H Sertraline [Zoloft] 50 mg PO HS@1999 Multivitamins, Thera [Multivitamin (formulary)] 1 tab PO HS Levothyroxine Sodium [Synthroid] 25 mcg PO HS@1999 Atorvastatin [Lipitor] 40 mg PO HS@1999 Discharge Medication List Apixaban [Eliquis] 5 mg PO BID #60 tab 06/26/20 [Rx] buPROPion XL [Wellbutrin XL] 150 mg PO DAILY 07/26/20 [History] Ipratropium-Albuterol Nebulize [Duoneb 0.5 mg-3 mg/3 ml Soln] 3 ml INHALATION RT-Q6H 09/07/20 [History] Multivitamins, Thera [Multivitamin (formulary)] 1 tab PO HS 10/24/20 [History] Sertraline [Zoloft] 50 mg PO HS@199910/24/20 [History] Acetaminophen [Tylenol 8 Hour] 650 mg PO Q6H PRN 01/11/21 [History] Atorvastatin [Lipitor] 40 mg PO HS@199901/11/21 [History] Levothyroxine Sodium [Synthroid] 25 mcg PO HS@199901/11/21 [History] Metoprolol Tartrate [Lopressor] 12.5 mg PO BID@0700,1900 01/11/21 [History] Sennosides [Senokot] 17.2 mg PO BID 01/11/21 [History] Follow up Appointment(s)/Referral(s): Alvin Wood MD [STAFF PHYSICIAN] - 2 Weeks Eleazar Bhatt MD [Primary Care Provider] - 1-2 days
--- NOTE | 2021-01-25 13:30 | PN ---
PROGRESS NOTE Patient is seen for followup for acute kidney injury and chronic kidney disease. There was discussion regarding hospice care as patient has been refusing medications and blood draws. However, it appears that he has been taking his medications. The family did not show up for discussion yesterday. There are no labs available for quite a few days now. Last blood work was done on 01/20/2021 at which time renal function was fairly stable. EXAMINATION: Today patient is comfortable. Blood pressure 117/73, heart rate 109 per minute. He is afebrile. Examination shows no evidence of edema lower extremities. Chronic skin changes noted MEAT CUTTER exam shows patient moving all 4 extremities. Abdomen is soft, obese, nontender. MEAT CUTTER exam grossly intact. LABS: Not available from today. ASSESSMENT: 1. Chronic kidney disease, NKF stage IV with fairly stable renal function. Creatinine last checked on January 20, which was 3.0, which was close to his baseline. 2. Acute kidney injury, prerenal, it had improved. Recheck labs today if patient is not yet hospice care. 3. Cardiomyopathy, ejection fraction 40-45% with chronic systolic congestive heart failure, currently not in failure. 4. MRSA bacteremia maintained on daptomycin, source is abdominal wound which also grew MRSA. 5. Abdominal wound infection with cultures growing MRSA and Rae. PLAN: Check labs today. We will decrease the Lasix to once a day as patient is not eating much. MMODL / IJN: [id number] /
--- NOTE | 2021-01-25 13:59 | PN ---
PROGRESS NOTE DATE OF SERVICE: 01/25/2021 REASON FOR FOLLOWUP: MRSA bacteremia, possible endovascular source. INTERVAL HISTORY: Patient is afebrile. The patient is hemodynamically stable. The patient seems slightly restless. Did not answer any questions. No vomiting, diarrhea or any other changes reported by the nursing staff. PHYSICAL EXAMINATION: Blood pressure is 117/73 with a pulse of 109, temperature is 97.9. He is 93% on 2 L nasal cannula. General description is a middle-aged male lying in bed in no distress. Respiratory system: Unlabored breathing, clear to auscultation anteriorly. Heart S1, S2. Regular rate and rhythm. Abdomen soft, no tenderness. No guarding. No rigidity. Lower extremity with diffuse swelling. No redness. LABS: Repeat blood culture has been negative. DIAGNOSTIC IMPRESSION AND PLAN: Patient with MRSA bacteremia, concern for possible endovascular source, this patient currently has been refusing his treatment, did pull out his PICC line. Consideration for possible hospice antibiotic will be discontinued and monitor clinical course closely. MMODL / IJN: [id number] /
[2021-01-25] MEDS: AMIODARONE 200 MG TAB PO SCH (15:44)
[2021-01-25] MEDS: METOPROLOL TARTRATE 12.5 MG TAB PO SCH (15:44)
[2021-01-25] MEDS: PYRIDOXINE 50 MG TAB PO SCH (15:44)
[2021-01-25] MEDS: DEXTROSE 4 GM CHEWABLE PO SCH (15:44)
[2021-01-25] MEDS: APIXABAN 5 MG TAB PO SCH (15:44)
[2021-01-25] MEDS: SODIUM BICARBONATE TAB 650 MG TAB PO SCH (15:45)
[2021-01-25] MEDS: SENNOSIDES 8.6 MG TAB PO SCH (15:45)
[2021-01-25] MEDS: NYSTATIN 100,000 UNIT/GM POWD 15 GM TOPICAL SCH (15:45)
[2021-01-25] MEDS: FUROSEMIDE 40 MG TAB PO SCH (15:47)
[2021-01-26] MEDS ORDERED: FUROSEMIDE 40 MG TAB PO SCH (09:00)
[2021-01-27] MEDS ORDERED: AMIODARONE 200 MG TAB PO SCH (09:00)
== END 2021-01-25 15:45 | DRG 291 ==
LOC: EC 13:45 → 4SSUR 16:14 → 3SCARD 18:16 → OBSVTOIN 01-12 11:57 → 3SCARD 01-15 11:04
PROVIDERS: ADMIT Hospitalist; ATTEND Hospitalist
PROC: 5A09457 Assistance with Respiratory Ventilation, 24-96 Consecutive Hours, Continuous Positive Airway Pressure (ICD-10-PCS; 2021-01-13)
PROC: 05H633Z Insertion of Infusion Device into Left Subclavian Vein, Percutaneous Approach (ICD-10-PCS; principal; 2021-01-20 07:30)
DX: I13.0 Hypertensive heart and chronic kidney disease with heart failure and stage 1 through stage 4 chronic kidney disease, or unspecified chronic kidney disease (principal); N17.0 Acute kidney failure with tubular necrosis; J96.21 Acute and chronic respiratory failure with hypoxia; G92 Toxic encephalopathy; J18.9 Pneumonia, unspecified organism; I50.43 Acute on chronic combined systolic (congestive) and diastolic (congestive) heart failure; N18.4 Chronic kidney disease, stage 4 (severe); I48.19 Other persistent atrial fibrillation; F33.1 Major depressive disorder, recurrent, moderate; J44.1 Chronic obstructive pulmonary disease with (acute) exacerbation; E87.0 Hyperosmolality and hypernatremia; E87.2 Acidosis; D61.818 Other pancytopenia; R78.81 Bacteremia; L03.311 Cellulitis of abdominal wall; J44.0 Chronic obstructive pulmonary disease with (acute) lower respiratory infection; K52.1 Toxic gastroenteritis and colitis; I48.92 Unspecified atrial flutter; L03.119 Cellulitis of unspecified part of limb; Z16.11 Resistance to penicillins; E11.649 Type 2 diabetes mellitus with hypoglycemia without coma; Z66 Do not resuscitate; Z51.5 Encounter for palliative care; I27.20 Pulmonary hypertension, unspecified; L89.302 Pressure ulcer of unspecified buttock, stage 2; E11.22 Type 2 diabetes mellitus with diabetic chronic kidney disease; E11.51 Type 2 diabetes mellitus with diabetic peripheral angiopathy without gangrene; E11.42 Type 2 diabetes mellitus with diabetic polyneuropathy; E11.622 Type 2 diabetes mellitus with other skin ulcer; I42.9 Cardiomyopathy, unspecified; E66.01 Morbid (severe) obesity due to excess calories; L98.492 Non-pressure chronic ulcer of skin of other sites with fat layer exposed; B37.2 Candidiasis of skin and nail; E86.0 Dehydration; I25.82 Chronic total occlusion of coronary artery; E86.1 Hypovolemia; I95.9 Hypotension, unspecified; G93.89 Other specified disorders of brain; D50.9 Iron deficiency anemia, unspecified; B95.62 Methicillin resistant Staphylococcus aureus infection as the cause of diseases classified elsewhere; T36.95XA Adverse effect of unspecified systemic antibiotic, initial encounter; I44.30 Unspecified atrioventricular block; E87.6 Hypokalemia; I34.0 Nonrheumatic mitral (valve) insufficiency; K57.30 Diverticulosis of large intestine without perforation or abscess without bleeding; E03.9 Hypothyroidism, unspecified; E78.5 Hyperlipidemia, unspecified; G47.33 Obstructive sleep apnea (adult) (pediatric); I25.10 Atherosclerotic heart disease of native coronary artery without angina pectoris; I25.2 Old myocardial infarction; Z68.37 Body mass index [BMI] 37.0-37.9, adult; Z91.19 Patient's noncompliance with other medical treatment and regimen; Z91.128 Patient's intentional underdosing of medication regimen for other reason; T50.906A Underdosing of unspecified drugs, medicaments and biological substances, initial encounter; Z79.01 Long term (current) use of anticoagulants; Z79.890 Hormone replacement therapy; Z79.899 Other long term (current) drug therapy; Z86.718 Personal history of other venous thrombosis and embolism; Z87.442 Personal history of urinary calculi; Z87.891 Personal history of nicotine dependence; Z86.14 Personal history of Methicillin resistant Staphylococcus aureus infection; Z95.5 Presence of coronary angioplasty implant and graft; Z87.19 Personal history of other diseases of the digestive system; Z90.49 Acquired absence of other specified parts of digestive tract; Z56.0 Unemployment, unspecified; Z86.19 Personal history of other infectious and parasitic diseases; Z98.890 Other specified postprocedural states; Z71.3 Dietary counseling and surveillance; Z88.1 Allergy status to other antibiotic agents; Z88.0 Allergy status to penicillin; Z88.8 Allergy status to other drugs, medicaments and biological substances; Z91.048 Other nonmedicinal substance allergy status; Z82.61 Family history of arthritis; Z82.69 Family history of other diseases of the musculoskeletal system and connective tissue; Z83.6 Family history of other diseases of the respiratory system; Z82.62 Family history of osteoporosis; Z83.79 Family history of other diseases of the digestive system; Z84.1 Family history of disorders of kidney and ureter; Z82.49 Family history of ischemic heart disease and other diseases of the circulatory system; Z81.8 Family history of other mental and behavioral disorders
CPT/HCPCS: 36415; 36573; 70450; 71045; 71046; 80048; 80053; 80202; 80306; 81001; 82247; 82390; 82550; 82607; 82746; 83605; 83735; 83880; 83921; 84145; 84207; 84425; 84439; 84443; 84484; 85025; 85610; 85730; 86780; 87040; 87070; 87077; 87086; 87186; 87205; 93005; 93306; 93308; 94640; 94660; 94760; 95819; 96360; 99285